=== PATIENT | female | born 1970 | race Caucasian/White ===

== ENCOUNTER → 2017-09-23 13:15 | Outpatient (CLI) | payer MEDICARE, MEDICAID, SELFPAY ==
--- NOTE | 2017-09-23 13:21 | XR_ITS ---
XR knee LT 4V HISTORY: ITS.REASON: left knee pain ORDERING PHYSICIAN: Lenard Cruz MD PATIENT AGE: 47 years COMPARISON: None FINDINGS: No fracture or dislocation. No lytic or blastic change. Normal mineralization. There is decrease in the joint space medially with minimal osteophyte formation. Minimal osteophyte formation along the posterior patella superiorly. IMPRESSION: 1. Mild osteoarthritis 2. Otherwise negative left knee
== END ==
PROVIDERS: PCP Nurse Practitioner; Visit Provider Orthopaedic Surgery
DX: M25.562 Pain in left knee (principal)
CPT/HCPCS: 73564

== ENCOUNTER 2017-10-09 12:17 | Emergency (ER) | payer MEDICARE, MEDICAID, SELFPAY ==
[2017-10-09 12:30] VITALS: BP 142/77; PULSE 86; RESP 20; TEMP 36.6; O2SAT 94; BMI 58.4
--- NOTE | 2017-10-09 12:33 | XR_ITS ---
XR chest 2V HISTORY: Cough and congestion ITS.REASON: COUGH AND CHEST CONGESTION ORDERING PHYSICIAN: Delaney Kern PATIENT AGE: 47 years COMPARISON: 04/03/2017 FINDINGS: The cardiomediastinal silhouette and pulmonary vascularity are within normal limits. The lungs are clear without infiltrates, suspicious nodules, or pleural effusions. There are degenerative changes in the thoracic spine No acute bony abnormalities. IMPRESSION: No change with no acute finding
--- NOTE | 2017-10-09 12:49 | HMH.EDUTC ---
[facility] [place] Disposition Clinical Impression: Upper respiratory infection Qualifiers: URI type: unspecified URI Qualified Code(s): J06.9 - Acute upper respiratory infection, unspecified Disposition: Home, Self-Care Condition on Discharge: Good Instructions: DI for Cough -- Adult, Sore Throat Additional Instructions: * Monitor Temp. Tylenol and/or Ibuprofen as needed. ER if fever is no less than 101 despite alternating Tylenol and Ibuprofen * Encourage fluids, water, Gatorade, powerade, pedialyte if /toddler/or child * Warm salt water gargles for throat irritation *Warm fluids *Sore throat lozenges *Sleep elevated *humidifier or vaporizer Lots of rest Increase fluids, water, Gatorade, powerade Follow up IMMEDIATELY for new or worsening of symptoms OR no noticeable improvement over the next 48-72 hours. 911 immediately for any life threatening symptoms such as chest pain or difficulty breathing Prescriptions: Albuterol Sulfate [Albuterol HFA Inhaler] 2 puffs IH Q6HP PRN #1 inh PRN Reason: Shortness Of Breath Or Wheezing Azithromycin [Z-Geovanny 250mg Tab] 250 mg PO UD DOSE PK #6 tab Dextromethorphan Polistirex [Delsym] 10 ml PO Q12H PRN #350 bhanu.er.12h PRN Reason: Cough predniSONE [Prednisone 20mg Tab] 20 mg PO DAILY #10 tab Referrals: Ananya Goldstein APRN [Primary Care Provider] - As needed (in 24-48 hours or sooner if no improvement or worsening of symptoms) Time of Disposition: 13:07 Medical Decision Making - Medical Records Medical records reviewed: Yes: I reviewed the patient's medical records. - Woodrow Inquiry Pt receiving controlled substance: No Woodrow was queried for this patient: No Vital Signs: 10/09/17 12:30 Temperature 97.9 F Temperature Source Temporal Artery Scan Pulse Rate [Right] 86 Respiratory Rate 20 Blood Pressure [Right Arm] 142/77 Blood Pressure Mean [Right Arm] 98 Blood Pressure Source [Right Arm] Automatic Cuff Blood Pressure Position [Right Arm] Sitting 02 Sat by Pulse Oximetry 94 L Oxygen Delivery Method Room Air Orders (Tests/Meds): ORDERS Category Date Time Status CXR 2 view (NOT portable) [XR chest 2V] Stat Exams 10/09/17 12:33 Ordered - Radiology Data #1 Image(s): Chest Image Reviewed: Yes I reviewed the patient's radiology image w/the ED provider Preliminary Findings: No Infiltrates Seen [facility] [place] HPI - General Stated complaint: cough.lost voice Time Seen by Provider: 10/09/17 12:50 Mode of Arrival: Ambulatory Source of Information: Patient Limitations: No Limitations Description of Symptoms (Recalled from Triage Doc. by RN): COUGH, CONGESTION X3 WKS HEENT Symptoms (Recalled from RN notes): Yes Resp Symptoms (Recalled from RN notes): No Skin Symptoms (Recalled from RN notes): No MS Symptoms (Recalled from RN notes): No Functional Status (Recalled from RN notes): N - History of Present Illness Provider Complaint: Patient state that she has been having cough and congestion for about 3 weeks now State that she got better then would start feeling worse State that she is not having a productive cough and has continued to lose her voice over the last few days States that cough is keeping her up at night and worse when she lays - Related Data Home Medications Medication Instructions Recorded Confirmed bupropion HCl XL 300 mg 24 hr 300 mg PO QAM 08/06/17 tablet, extended release furosemide 40 mg tablet 40 mg PO ONCE 08/06/17 levothyroxine 150 mcg capsule PO 08/06/17 lisinopril 10 mg tablet 10 mg PO QDAY 08/06/17 Previous Rx's Medication Instructions Recorded Albuterol Sulfate [Albuterol HFA 2 puffs IH Q6HP PRN #1 inh 10/09/17 Inhaler] Azithromycin [Z-Geovanny 250mg Tab] 250 mg PO UD DOSE PK #6 tab 10/09/17 Dextromethorphan Polistirex 10 ml PO Q12H PRN #350 bhanu.er.12h 10/09/17 [Delsym] predniSONE [Prednisone 20mg 20 mg PO DAILY #10 tab 10/09/17 Tab] Allergies Allergy/AdvReac Type Severity Reaction Status D
--- NOTE | 2017-10-09 12:58 | ED_ITS ---
[facility] [place] Disposition Clinical Impression: Upper respiratory infection Qualifiers: URI type: unspecified URI Qualified Code(s): J06.9 - Acute upper respiratory infection, unspecified Disposition: Home, Self-Care Condition on Discharge: Good Instructions: DI for Cough -- Adult, Sore Throat Additional Instructions: * Monitor Temp. Tylenol and/or Ibuprofen as needed. ER if fever is no less than 101 despite alternating Tylenol and Ibuprofen * Encourage fluids, water, Gatorade, powerade, pedialyte if infant/toddler/or child * Warm salt water gargles for throat irritation *Warm fluids *Sore throat lozenges *Sleep elevated *humidifier or vaporizer Lots of rest Increase fluids, water, Gatorade, powerade Follow up IMMEDIATELY for new or worsening of symptoms OR no noticeable improvement over the next 48-72 hours. 911 immediately for any life threatening symptoms such as chest pain or difficulty breathing Prescriptions: Albuterol Sulfate [Albuterol HFA Inhaler] 2 puffs IH Q6HP PRN #1 inh PRN Reason: Shortness Of Breath Or Wheezing Azithromycin [Z-Geovanny 250mg Tab] 250 mg PO UD DOSE PK #6 tab Dextromethorphan Polistirex [Delsym] 10 ml PO Q12H PRN #350 bhanu.er.12h PRN Reason: Cough predniSONE [Prednisone 20mg Tab] 20 mg PO DAILY #10 tab Referrals: Ananya Goldstein APRN [Primary Care Provider] - As needed (in 24-48 hours or sooner if no improvement or worsening of symptoms) Time of Disposition: 13:07 Medical Decision Making - Medical Records Medical records reviewed: Yes: I reviewed the patient's medical records. - Woodrow Inquiry Pt receiving controlled substance: No Woodrow was queried for this patient: No Vital Signs: 10/09/17 12:30 Temperature 97.9 F Temperature Source Temporal Artery Scan Pulse Rate [Right] 86 Respiratory Rate 20 Blood Pressure [Right Arm] 142/77 Blood Pressure Mean [Right Arm] 98 Blood Pressure Source [Right Arm] Automatic Cuff Blood Pressure Position [Right Arm] Sitting 02 Sat by Pulse Oximetry 94 L Oxygen Delivery Method Room Air Orders (Tests/Meds): ORDERS Category Date Time Status CXR 2 view (NOT portable) [XR chest 2V] Stat Exams 10/09/17 12:33 Ordered - Radiology Data #1 Image(s): Chest Image Reviewed: Yes I reviewed the patient's radiology image w/the ED provider Preliminary Findings: No Infiltrates Seen [facility] [place] HPI - General Stated complaint: cough.lost voice Time Seen by Provider: 10/09/17 12:50 Mode of Arrival: Ambulatory Source of Information: Patient Limitations: No Limitations Description of Symptoms (Recalled from Triage Doc. by RN): COUGH, CONGESTION X3 WKS HEENT Symptoms (Recalled from RN notes): Yes Resp Symptoms (Recalled from RN notes): No Skin Symptoms (Recalled from RN notes): No MS Symptoms (Recalled from RN notes): No Functional Status (Recalled from RN notes): N - History of Present Illness Provider Complaint: Patient state that she has been having cough and congestion for about 3 weeks now State that she got better then would start feeling worse State that she is not having a productive cough and has continued to lose her voice over the last few days States that cough is keeping her up at night and worse when she lays - Related Data Home Medications Medication Instructions Recorded Confirmed bupropion HCl XL 300 mg 24 hr 300 mg PO QAM 08/06/17 tablet, extended release
[2017-10-09 13:13] VITALS: BP 142/77; PULSE 86; RESP 20; TEMP 36.6
== END 2017-10-09 13:24 | disposition home or self-care (01) ==
PROVIDERS: Emergency Provider Nurse Practitioner; Family Provider Nurse Practitioner; PCP Nurse Practitioner
DX: J06.9 Acute upper respiratory infection, unspecified (principal); I10 Essential (primary) hypertension; E03.9 Hypothyroidism, unspecified
CPT/HCPCS: G0463; 71046; 99201

== ENCOUNTER → 2018-03-10 14:02 | Outpatient (CLI) | payer MEDICARE, MEDICAID, SELFPAY ==
--- NOTE | 2018-03-10 14:10 | XR_ITS ---
XR chest 2V HISTORY: ITS.REASON: SHORTNESS OF BREATH,WHEEZING ORDERING PHYSICIAN: Ananya Goldstein PATIENT AGE: 47 years COMPARISON: 11/07/2017 FINDINGS: The cardiomediastinal silhouette and pulmonary vascularity are within normal limits. The lungs are clear without infiltrates, suspicious nodules, or pleural effusions. No acute bony abnormalities. There are degenerative changes in the thoracic spine as before IMPRESSION: No change with no acute finding
== END ==
PROVIDERS: PCP Nurse Practitioner; Visit Provider Nurse Practitioner
DX: R06.02 Shortness of breath (principal); R06.2 Wheezing
CPT/HCPCS: 71046

== ENCOUNTER → 2018-03-19 11:15 | Outpatient (CLI) | payer MEDICARE, MEDICAID, SELFPAY ==
[2018-03-19 12:21] VITALS: PULSE 82; PULSE 84
== END ==
PROVIDERS: Family Provider Nurse Practitioner; PCP Nurse Practitioner; Visit Provider Nurse Practitioner
DX: R06.02 Shortness of breath (principal); R06.2 Wheezing
CPT/HCPCS: 94060; 94640; 94726; 94729

== ENCOUNTER 2019-11-10 19:41 | Emergency (ER) | payer MEDICARE, OTHER, SELFPAY ==
[2019-11-10 19:41] VITALS: BMI 61.9
--- NOTE | 2019-11-10 19:42 | XR_ITS ---
PROCEDURE: XR CHEST PORTABLE CLINICAL HISTORY: hypertensive COMPARISON: No exams were available for comparison FINDINGS: The cardiomediastinal silhouette and pulmonary vascularity are within normal limits. The lungs are clear without infiltrates, suspicious nodules, or pleural effusions. No acute bony abnormalities. IMPRESSION: No acute findings. Dictated by: Wei Mendoza MD 11/10/2019 21:01 Electronically signed by Wei Mendoza MD in [place] 11/10/2019 21:01
--- NOTE | 2019-11-10 19:42 | CT_ITS ---
PROCEDURE: CT HEAD/BRAIN WO CON CLINICAL INDICATION: weakness, episode of facial numbness Right-sided facial numbness COMPARISON: CT HEAD/BRAIN WO CON from 08/11/2019 TECHNIQUE: Axial images obtained. All CT scans at the facility use one or more dose reduction, viz: automated exposure control, ma/kV adjustment per patient size (including targeted exams where dose is matched to indication, i.e. head), or iterative reconstruction technique. FINDINGS: No midline shift, mass effect, intracranial hemorrhage, hydrocephalus, or extra-axial fluid collection is evident. The calvarium has an unremarkable appearance. No mastoid effusion. No sinus air-fluid level. IMPRESSION: No acute intracranial finding Dictated by: Wei Mendoza MD 11/10/2019 21:03 Electronically signed by Wei Mendoza MD in [place] 11/10/2019 21:03
[2019-11-10 19:44] VITALS: BP 154/73; PULSE 90; RESP 18; TEMP 36.7; O2SAT 96; BMI 61.9
--- NOTE | 2019-11-10 19:50 | PC.NURSE ---
pt dressed in gown. fsbs 114mg/dl obtained. placed on secured entrance monitor. no present s/sxs.
--- NOTE | 2019-11-10 20:01 | PC.NURSE ---
blood collected and sent to lab. advised patient urine would be needed. discussed current orders with md. no new orders.
--- NOTE | 2019-11-10 20:03 | PC.NURSE ---
pt to rad via velma stroud tech.
[2019-11-10 20:09] LABS: Basophils # 0.1 K/mm3 (0-0.2); Basophils % 0.5 % (0.1-2.0); Eosinophils # 0.1 K/mm3 (0.0-0.4); Eosinophils % 1.3 % (0.1-12.0); Hematocrit 44.4 % (37.0-47.0); Hemoglobin 13.8 g/dL (12.2-16.2); Lymphocytes # 2.2 K/mm3 (0.7-4.5); Lymphocytes % 21.2 % (10-50); Mean Corpuscular HGB Conc 31.1 g/dL (31.8-35.4); Mean Corpuscular Hemoglobin 27.6 pg (27.0-31.2); Mean Corpuscular Volume 88.9 fl (81-99); Mean Platelet Volume 7.9 fl (7.4-10.4); Monocytes # 0.6 K/mm3 (0.1-1.0); Monocytes % 5.5 % (1.7-9.3); Neutrophils # 7.4 K/mm3 (1.8-7.8); Neutrophils % 71.5 % (37.0-80.0); Platelet Count 259 K/mm3 (142-424); Red Blood Count 4.99 M/mm3 (4.20-5.40); Red Cell Distribution Width 16.5 % (11.5-17.5); White Blood Count 10.4 K/mm3 (4.8-10.8)
--- NOTE | 2019-11-10 20:11 | PC.NURSE ---
remains in ct/rad
[2019-11-10 20:15] LABS: Chloride 104 mmol/L (98-107)
--- NOTE | 2019-11-10 20:15 | PC.NURSE ---
back from radiology. call light in reach. rajinder to perform ekg at this time.
[2019-11-10 20:16] LABS: Potassium 4.6 mmoL/L (3.5-5.1); Sodium 140 mmol/L (136-145)
[2019-11-10 20:18] LABS: Alanine Aminotransferase 23 U/L (12-78); Aspartate Amino Transferase 31 U/L (14-36); Blood Urea Nitrogen 11 mg/dl (7-17); Creatinine Clearance Estimated 92 mL/min (50-200); Estimated Glomerular Filt Rate 105 ml/min (>60); GFR (African American) 128 ML/MIN (>60)
[2019-11-10 20:19] LABS: Albumin Level 3.5 g/dl (3.5-5.0); Albumin/Globulin Ratio 1.1 (1.1-1.8); Alkaline Phosphatase 87 U/L (38-126); Anion Gap 8.6 mEq/L (5-15); Bilirubin,Total 0.2 mg/dl (0.2-1.3); Calcium 9.3 mg/dl (8.4-10.2); Carbon Dioxide 32 mmol/L (22.0-30.0); Globulin 3.1 g/dL (1.3-3.2); Glucose 102 mg/dl (74-100); Total Protein,Serum 6.6 g/dl (6.3-8.2)
--- NOTE | 2019-11-10 20:20 | PC.NURSE ---
family updated at this time. advised waiting on lab and radiology results and that patient was stable with no actual issues at time of presentation,nor repeats of previously mentioned issues.
--- NOTE | 2019-11-10 20:24 | ECG_ITS ---
APPROVED REPORT Exam: Resting ECG HR:89 bpm ECG Measurements Heart Rate 89 AXES MI 134 P 68 QRSd 120 QRS -39 QT 366 T 28 QTc 445 <Conclusion> Normal sinus rhythm Left axis deviation Right bundle branch block Abnormal ECG Electronically signed by : Fabrizio Rosales, 11/13/2019 13:16:06
[2019-11-10 20:28] LABS: NT Pro Brain Natriuretic Pep. 76.9 pg/mL (0-125)
[2019-11-10 20:40] VITALS: BP 149/89; PULSE 72; RESP 21; TEMP 36.6; O2SAT 97
[2019-11-10 20:40] LABS: Triiodothryronine (T3) Uptake 32 % (23.5-40.5); Troponin I < 0.01 ng/ml (0.00-0.034)
[2019-11-10 20:41] LABS: Free Thyroxine Index 2.4 ug/dL (5.93-13.13); T4 (Thyroxine) 7.5 ug/dl (5.53-11.0)
--- NOTE | 2019-11-10 21:18 | PC.NURSE ---
urine sent to lab
[2019-11-10 21:19] VITALS: BP 129/72; PULSE 75; RESP 18; TEMP 36.7; O2SAT 95
[2019-11-10 21:20] LABS: Microscopic, Urine URINE MICROSCOPIC (MICROSCOPIC)
[2019-11-10 21:32] LABS: Appearance,Urine CLEAR (Clear); Bilirubin,Urine Negative (Negative); Blood, Urine Negative (Negative); Color,Urine YELLOW (Yellow); Glucose,Urine (UA) Negative (Negative); Ketones,Urine Negative (Negative); Leukocyte Esterase,Urine Negative (Negative); Nitrate,Urine Negative (Negative); PH,Urine 6.5 (5.0-8.5); Protein,Urine Negative (Negative); Urobilinogen,Urine 0.2 EU/dl (0.2)
[2019-11-10 21:46] LABS: Bacteria,Urine Trace /lpf; WBC,Urine Occasional #/hpf (0-3)
--- NOTE | 2019-11-10 22:00 | HMH.EDNEU ---
ED Disposition Clinical Impression: TIA (transient ischemic attack), Tobacco abuse, Hypothyroidism (acquired) HTN (hypertension) Qualifiers: Hypertension type: essential hypertension Qualified Code(s): I10 - Essential (primary) hypertension Obesity Qualifiers: Obesity type: due to excess calories Obesity classification: adult class 3 (BMI >= 40) Serious obesity comorbidity presence: with serious comorbidity Body mass index: BMI 60.0-69.9 Qualified Code(s): E66.01 - Morbid (severe) obesity due to excess calories; Z68.44 - Body mass index (BMI) 60.0-69.9, adult Disposition: Home, Self-Care Condition on Discharge: Good Instructions: DI for Transient Ischemic Attack Additional Instructions: call pcp in am for close follow up and restart meds Referrals: Kiera Mai PA [Primary Care Provider] - - Critical Care Critical Care Time: No Attestation: On 11/10/19, the high probability of a clinically significant, sudden or life threatening deterioration of the following system(s) required my full and direct attention, intervention and personal management. The time I documented below is in addition to time spent performing reported procedures but includes the following listed in this critical care notation. Medical Decision Making - Medical Records Medical records reviewed: Yes: I reviewed the patient's medical records. - Woodrow Inquiry Pt receiving controlled substance: No Vital Signs: 11/10/19 19:44 11/10/19 20:40 11/10/19 21:19 Temperature 98.1 F 97.8 F 98.0 F Temperature Source Oral Oral Oral Pulse Rate [Right Brachial] 90 72 75 Respiratory Rate 18 21 18 Blood Pressure [Right Arm] 154/73 H 149/89 H 129/72 Blood Pressure Mean [Right Arm] 100 109 91 Blood Pressure Source [Right Arm] Automatic Cuff Automatic Cuff Automatic Cuff Blood Pressure Position [Right Arm] Sitting Sitting Sitting 02 Sat by Pulse Oximetry 96 97 95 Oxygen Delivery Method Room Air Room Air Room Air - Lab Data Lab results reviewed: Yes: I reviewed the patient's lab results. Lab Results 11/10/19 20:00: WBC 10.4, RBC 4.99, Hgb 13.8, Hct 44.4, MCV 88.9, MCH 27.6, MCHC 31.1 L, RDW 16.5, Plt Count 259, MPV 7.9, Neut % (Auto) 71.5, Lymph % (Auto) 21.2, [place] % (Auto) 5.5, Eos % (Auto) 1.3, Baso % (Auto) 0.5, Neut # (Auto) 7.4, Lymph # (Auto) 2.2, [place] # (Auto) 0.6, Eos # (Auto) 0.1, Baso # (Auto) 0.1 11/10/19 20:00: Sodium 140, Potassium 4.6, Chloride 104, Carbon Dioxide 32 H, Anion Gap 8.6, BUN 11, Creatinine 0.60, Estimated Creat Clear 92, Estimated GFR 105, Est GFR ( Amer) 128, Glucose 102 H, Calcium 9.3, Total Bilirubin 0.2, AST 31, ALT 23, Alkaline Phosphatase 87, Troponin I < 0.01, Total Protein 6.6, Albumin 3.5, Globulin 3.1, Albumin/Globulin Ratio 1.1 11/10/19 20:00: TSH 13.70 H, Free T4 Index 2.4 L, Thyroxine (T4) 7.5, T3 Uptake 32 11/10/19 20:00: NT-Pro-B Natriuret Pep 76.9 11/10/19 21:15: Urine Color Yellow, Urine Appearance Clear, Urine pH 6.5, Ur Specific [place] 1.020, Urine Protein Negative, Urine Glucose (UA) Negative, Urine Ketones Negative, Urine Blood Negative, Urine Nitrate Negative, Urine Bilirubin Negative, Urine Urobilinogen 0.2, Ur Leukocyte Esterase Negative, Urine WBC Occasional, Ur Squamous Epith Cells 3-5, Urine Bacteria Trace Result diagrams: 11/10/19 20:00 11/10/19 20:00 Orders (Tests/Meds): ED MEDICATIONS Discontinued Medications Generic Name Dose Route Start Last Admin Trade Name Freq PRN Reason Stop Dose Admin Acetaminophen 1,000 mg 11/10/19 20:17 11/10/19 20:19 Tylenol 500mg Tablet PO 11/10/19 20:18 1,000 mg ONCE ONE Administration ORDERS Category Date Time Status Troponin I Q3H Lab 11/10/19 22:45 Ordered Troponin I Q3H Lab 11/11/19 01:45 Ordered - Radiology Data #1 Image(s): Chest Image Reviewed: Yes I reviewed the patient's radiology image Preliminary Findings: Normal/NAD - CT Data CT Scan: Head Time Received: 22:[address] Reviewed: Yes: I have vi
[2019-11-10 22:31] VITALS: BP 124/68; PULSE 72; RESP 18; TEMP 36.7; O2SAT 95
[2019-12-01 10:39] LABS: POC Glucose,Bedside 114 (70-110)
== END 2019-11-10 22:33 | disposition home or self-care (01) ==
PROVIDERS: Emergency Provider Emergency Medicine; PCP Physician Assistant
DX: G45.8 Other transient cerebral ischemic attacks and related syndromes (principal); E03.9 Hypothyroidism, unspecified; F17.210 Nicotine dependence, cigarettes, uncomplicated; E66.01 Morbid (severe) obesity due to excess calories; Z68.44 Body mass index [BMI] 60.0-69.9, adult; Z88.5 Allergy status to narcotic agent; Z79.899 Other long term (current) drug therapy; R06.02 Shortness of breath
CPT/HCPCS: 70450; 71045; 80053; 81001; 82962; 83880; 84436; 84443; 84479; 84484; 85025; 93005; 99284

== ENCOUNTER 2019-12-04 15:19 | Emergency (ER) | payer MEDICARE, OTHER, SELFPAY ==
[2019-12-04 15:26] VITALS: BP 153/74; PULSE 110; RESP 18; TEMP 36.8; O2SAT 97; BMI 61.9
--- NOTE | 2019-12-04 15:30 | XR_ITS ---
PROCEDURE: XR CHEST 2V CLINICAL HISTORY: COUGH Cough and severe shortness of breath COMPARISON: CTAC CTA-CHEST from 11/20/2016 XR CHEST 2V from 08/11/2019 XR CHEST 2V from 09/13/2019 XR CHEST PORTABLE from 11/10/2019 FINDINGS: The cardiomediastinal silhouette and pulmonary vascularity are within normal limits. The lungs are clear without infiltrates, suspicious nodules, or pleural effusions. No acute bony abnormalities. IMPRESSION: No acute findings. Dictated by: Wei Mendoza MD 12/05/2019 08:38 Electronically signed by Wei Mendoza MD in [place] 12/05/2019 08:38
[2019-12-04 15:32] VITALS: PULSE 109; RESP 22; O2SAT 96; BMI 61.7
--- NOTE | 2019-12-04 15:35 | HMH.EDUTC ---
[facility] [place] Disposition Clinical Impression: Strep throat COPD (chronic obstructive pulmonary disease) Qualifiers: COPD type: unspecified COPD Qualified Code(s): J44.9 - Chronic obstructive pulmonary disease, unspecified Disposition: Home, Self-Care Condition on Discharge: Good Instructions: DI for Strep Throat, Strep Throat (Alternative Therapy), Strep Throat Additional Instructions: *Monitor Temp, Over the counter Motrin or Tylenol as directed/as needed Tylenol every 4 hours and Motrin every 6 hours (as long as your family doctor has told you that you can take it) for fever or pain. and straight to ER if unable to lower temp less than 101.0 after medication given *Warm salt water gargles may help to soothe the throat *Throat Lozenges *Warm fluids *Sleep elevated *Humidifier/Vaporizer *Flonase 2 sprays in each nostril daily but be aware that it may take 2-3 days before you notice improvement *If you did not take Penicillin shot or was unable to, start taking antibiotic immediately and make sure that you take it for the FULL length of time although you should start to feel better in 24-48 hours *change toothbrush and toothpaste 24-48 hours after starting to take antibiotics so you do not reinfect yourself Monitor Temp. Tylenol and/or Ibuprofen as needed. ER if fever is no less than 101 despite alternating Tylenol and Ibuprofen * Encourage fluids, water, Gatorade, powerade, pedialyte if /toddler/or child *Cold fluids, popsicles and ice cream may feel good on his throat Follow up IMMEDIATELY for new or worsening symptoms or no Noticeable improvement over the next 48-72 hours. 911 for difficulty breathing or swallowing Prescriptions: Fluticasone Propionate [Flonase 50mcg nasal spray 16gm] 1 - 2 spr NS DAILY #1 bottle Prescription Printed Cefdinir [Omnicef 300mg Capsule] 300 mg PO BID #20 cap Prescription Printed predniSONE [Prednisone 5mg Tab Dose-Pack] 5 mg PO UD DOSE PK #21 pack Prescription Printed Benzonatate [Tessalon Perle 100mg Cap*] 100 mg PO TID PRN #12 cap PRN Reason: Cough Prescription Printed Referrals: Ananya Goldstein APRN [Primary Care Provider] - As needed Time of Disposition: 16:02 Medical Decision Making - Woodrow Inquiry Pt receiving controlled substance: No Woodrow was queried for this patient: No Vital Signs: 12/04/19 15:26 12/04/19 15:32 Temperature 98.3 F Temperature Source Oral Pulse Rate [Radial] 110 H 109 H Respiratory Rate 18 22 Blood Pressure [Right Arm] 153/74 H Blood Pressure Mean [Right Arm] 100 Blood Pressure Source [Right Arm] Automatic Cuff Blood Pressure Position [Right Arm] Sitting 02 Sat by Pulse Oximetry 97 96 Oxygen Delivery Method Room Air Orders (Tests/Meds): ORDERS Category Date Time Status CXR 2 view (NOT portable) [XR chest 2V] Stat Exams 12/04/19 15:30 Taken - Radiology Data #1 Image(s): Chest Image Reviewed: Yes I reviewed the patient's radiology image No acute finding, will have patient call back or follow up for official reading of xray - Reevaluation(s) Time: 15:51 Reevaluation #1: Patient states that she has taken cefdinir and prednisone before without reaction or complication [facility] [place] HPI - General Stated complaint: SOB,Cough,Weakness,Lungs hunts Time Seen by Provider: 12/04/19 15:35 Mode of Arrival: Ambulatory Limitations: No Limitations Description of Symptoms (Recalled from Triage Doc. by RN): Complaint of lung pain and shortness of breath.Denies fever. x 1 week. HEENT Symptoms (Recalled from RN notes): No Resp Symptoms (Recalled from RN notes): Yes Skin Symptoms (Recalled from RN notes): No MS Symptoms (Recalled from RN notes): No Functional Status (Recalled from RN notes): na - History of Present Illness Provider Complaint: Patient states that she has a history of COPD and is every day smoker of about a pack a day States that for the last week she has been having cough and some pressure like pain in her ears St
[2019-12-04 15:54] LABS: UTC Strep Screen (Rapid) Positive (Negative)
[2019-12-04 16:07] VITALS: BP 150/87; PULSE 100; RESP 20; TEMP 36.8; O2SAT 98
== END 2019-12-04 16:08 | disposition home or self-care (01) ==
PROVIDERS: Emergency Provider Nurse Practitioner; PCP Nurse Practitioner
DX: J02.0 Streptococcal pharyngitis (principal); J44.9 Chronic obstructive pulmonary disease, unspecified; I10 Essential (primary) hypertension; E03.9 Hypothyroidism, unspecified; F17.210 Nicotine dependence, cigarettes, uncomplicated; Z88.8 Allergy status to other drugs, medicaments and biological substances; Z79.899 Other long term (current) drug therapy
CPT/HCPCS: 71046; 87880; 99202

== ENCOUNTER 2020-01-31 14:23 | Emergency (ER) | payer MEDICARE, OTHER, SELFPAY ==
[2020-01-31 14:45] VITALS: BP 133/67; PULSE 101; RESP 28; TEMP 36.3; O2SAT 94; BMI 63.8
--- NOTE | 2020-01-31 14:48 | XR_ITS ---
PROCEDURE: XR CHEST 2V CLINICAL HISTORY: SOA/COUGH COMPARISON: CTAC CTA-CHEST from 11/20/2016 CXR2V XR chest 2V from 10/09/2017 XR CHEST 2V from 09/13/2019 XR CHEST PORTABLE from 11/10/2019 XR CHEST 2V from 12/04/2019 FINDINGS: The cardiomediastinal silhouette and pulmonary vascularity are within normal limits. The lungs are clear without infiltrates, suspicious nodules, or pleural effusions. Increased density is present in the left upper lobe medially and may be due to summation artifact from overlying ribs and vessels having a somewhat similar appearance on 09/13/2019. Stability may be confirmed with follow-up. There are degenerative changes in the thoracic. Slight increased density left paraspinal region at the costo vertebral junction and may be due to overlying prominent osteophytes. Stability may be confirmed with follow-up. IMPRESSION: No acute finding. Please see above for detail Dictated by: Wei Mendoza MD 01/31/2020 15:06 Electronically signed by Wei Mendoza MD in [place] 01/31/2020 15:06
--- NOTE | 2020-01-31 15:19 | HMH.EDUTC ---
[facility] Disposition Clinical Impression: COPD exacerbation Disposition: Home, Self-Care Condition on Discharge: Good Instructions: Chronic Obstructive Pulmonary Disease, DI for Chronic Obstructive Pulmonary Disease Additional Instructions: Drink plenty of fluids. Take tylenol or ibuprofen for pain or fever. Take the medications as directed. Follow up with your regular doctor. GO TO THE ER FOR ANY WORSENING SYMPTOMS Don't start the oral steroids until tomorrow, since you had the shot here today. The cough medication (promethazine dm) will make you drowsy, so don't drive or operate heavy machinery after taking it. Prescriptions: Promethazine/Dextromethorphan [Promethazine-Dm Syrup] 5 ml PO Q6HP PRN #240 syrup PRN Reason: Cough Transmission Status: Received by [facility] Umeclidinium Brm/Vilanterol Tr [Anoro Ellipta 62.5-25 Mcg INH] 1 inh IH DAILY 30 Days #1 device Transmission Status: Received by [facility] levoFLOXacin [Levaquin 500mg tab] 500 mg PO DAILY #7 tab Transmission Status: Received by [facility] methylPREDNISolone [Medrol] 4 mg PO DIRECTED 6 Days #21 tab.ds.pk Transmission Status: Received by [facility] Benzonatate [Tessalon Perle 100mg Cap] 100 mg PO TIDP PRN #30 cap PRN Reason: Cough Transmission Status: Received by [facility] Referrals: Provider,Referral, [Primary Care Provider] - Time of Disposition: 15:24 Medical Decision Making - Medical Records Medical records reviewed: No: I reviewed the patient's medical records. - Woodrow Inquiry Pt receiving controlled substance: No Vital Signs: 01/31/20 14:45 01/31/20 15:44 Temperature 97.4 F L 97.4 F L Temperature Source Oral Pulse Rate 101 H Pulse Rate [Right Brachial] 101 H Respiratory Rate 28 H 28 H Blood Pressure 133/67 Blood Pressure [Right Arm] 133/67 Blood Pressure Mean [Right Arm] 89 Blood Pressure Source [Right Arm] Automatic Cuff Blood Pressure Position [Right Arm] Sitting 02 Sat by Pulse Oximetry 94 L Oxygen Delivery Method Room Air Orders (Tests/Meds): ED MEDICATIONS Discontinued Medications Generic Name Dose Route Start Last Admin Trade Name Freq PRN Reason Stop Dose Admin Ceftriaxone Sodium 1 gm 01/31/20 15:17 01/31/20 15:43 Rocephin 1gm Vial IM 01/31/20 15:18 1 gm ONCE ONE Administration Protocol Lidocaine HCl 0 ml 01/31/20 15:17 01/31/20 15:43 Lidocaine 1% 10ml Mdv IM 01/31/20 15:18 2.1 ml ONCE ONE Administration Methylprednisolone Sodium Succinate 125 mg 01/31/20 15:17 01/31/20 15:43 Solu-Medrol 125mg/2ml Vial IM 01/31/20 15:18 125 mg ONCE ONE Administration - Radiology Data #1 Image(s): Chest Image Reviewed: Yes I reviewed the patient's radiology image, Yes I have reviewed radiologist's interpretation Preliminary Findings: No Infiltrates Seen PROCEDURE: XR CHEST 2V CLINICAL HISTORY: SOA/COUGH COMPARISON: CTAC CTA-CHEST from 11/20/2016 CXR2V XR chest 2V from 10/09/2017 XR CHEST 2V from 09/13/2019 XR CHEST PORTABLE from 11/10/2019 XR CHEST 2V from 12/04/2019 FINDINGS: The cardiomediastinal silhouette and pulmonary vascularity are within normal limits. The lungs are clear without infiltrates, suspicious nodules, or pleural effusions. Increased density is present in the left upper lobe medially and may be due to summation artifact from overlying ribs and vessels having a somewhat similar appearance on 09/13/2019. Stability may be confirmed with follow-up. There are degenerative changes in the thoracic. Slight increased density left paraspinal region at the costo vertebral junction and may be due to overlying prominent osteophytes. Stability may be confirmed with follow-up. IMPRESSION: No acute finding. Please see above for detail Dictated by: Wei Mendoza MD 01/31/2020 15:06 Electronically signed by Wei Mendoza MD in [place] 01/31/2020 15:06 [facility] HPI
[2020-01-31 15:44] VITALS: BP 133/67; PULSE 101; RESP 28; TEMP 36.3; O2SAT 94
== END 2020-01-31 15:50 | disposition home or self-care (01) ==
PROVIDERS: Emergency Provider Nurse Practitioner Family
DX: J44.1 Chronic obstructive pulmonary disease with (acute) exacerbation (principal); I10 Essential (primary) hypertension; E03.9 Hypothyroidism, unspecified; F17.210 Nicotine dependence, cigarettes, uncomplicated; Z79.899 Other long term (current) drug therapy
CPT/HCPCS: 71046; 96372; 99202

== ENCOUNTER 2020-03-29 14:37 | Emergency (ER) | payer MEDICARE, OTHER, SELFPAY ==
[2020-03-29 14:46] VITALS: BP 149/64; PULSE 80; RESP 22; O2SAT 95; BMI 59.3
--- NOTE | 2020-03-29 14:56 | ECG_ITS ---
APPROVED REPORT Exam: Resting ECG HR:76 bpm ECG Measurements Heart Rate 76 AXES MT 132 P 67 QRSd 126 QRS -36 QT 398 T 22 QTc 447 <Conclusion> Normal sinus rhythm Left axis deviation Right bundle branch block Abnormal ECG Electronically signed by : Fabrizio Rosales, 04/01/2020 15:02:55
[2020-03-29 15:00] LABS: Basophils # 0.1 K/mm3 (0-0.2); Basophils % 0.8 % (0.1-2.0); Eosinophils # 0.3 K/mm3 (0.0-0.4); Eosinophils % 2.3 % (0.1-12.0); Hematocrit 45.6 % (37.0-47.0); Hemoglobin 14.5 g/dL (12.2-16.2); Lymphocytes # 3.9 K/mm3 (0.7-4.5); Lymphocytes % 33.3 % (10-50); Mean Corpuscular HGB Conc 31.7 g/dL (31.8-35.4); Mean Corpuscular Volume 88.2 fl (81-99); Mean Platelet Volume 7.6 fl (7.4-10.4); Monocytes # 0.6 K/mm3 (0.1-1.0); Monocytes % 5.2 % (1.7-9.3); Neutrophils # 6.8 K/mm3 (1.8-7.8); Neutrophils % 58.4 % (37.0-80.0); Platelet Count 315 K/mm3 (142-424); Red Blood Count 5.17 M/mm3 (4.20-5.40); Red Cell Distribution Width 16.4 % (11.5-17.5); White Blood Count 11.6 K/mm3 (4.8-10.8)
[2020-03-29 15:04] VITALS: BP 120/70; PULSE 81; O2SAT 96
[2020-03-29 15:04] LABS: Chloride 103 mmol/L (98-107); Potassium 4.6 mmoL/L (3.5-5.1); Sodium 138 mmol/L (136-145)
--- NOTE | 2020-03-29 15:05 | CT_ITS ---
PROCEDURE: CT CHEST WO CON CLINICAL INDICATION: pain Pain with swallowing COMPARISON: No exams were available for comparison TECHNIQUE: Axial images obtained with sagittal and coronal reformats. All CT scans at the facility use one or more dose reduction, viz: automated exposure control, ma/kV adjustment per patient size (including targeted exams where dose is matched to indication, i.e. head), or iterative reconstruction technique. FINDINGS: No mediastinal or hilar mass or adenopathy. No lobar consolidation or collapse. Lungs are clear. No acute bony findings. IMPRESSION: Negative CT chest without contrast Dictated by: Wei Mendoza MD 03/29/2020 16:02 Wei Mendoza MD in [place] 03/29/2020 16:02
--- NOTE | 2020-03-29 15:05 | CT_ITS ---
PROCEDURE: CT ABDOMEN PELVIS WO CON CLINICAL INDICATION: pain Pain when eating, epigastric pain with swallowing COMPARISON: CT ABDPELW CT ABD PELVIS W/ CONTRAST from 02/29/2016 TECHNIQUE: Axial images obtained with sagittal and coronal reformats. All CT scans at the facility use one or more dose reduction, viz: automated exposure control, ma/kV adjustment per patient size (including targeted exams where dose is matched to indication, i.e. head), or iterative reconstruction technique. FINDINGS: LOWER THORAX: No acute finding ABDOMEN & PELVIS: There has been a prior cholecystectomy. The liver spleen and pancreas have an unremarkable appearance. No renal or ureteral calculi. The left adrenal gland is somewhat enlarged but not significantly changed. There is some medial displacement of the lower aspect of both kidneys but no obvious horseshoe kidney. There is a large ventral abdominal wall hernia containing large and small bowel and part of the stomach. The hernia is incompletely covered due to the patient's body size and field of view restrictions. There is a suture line present in the right mid abdominal region at the edge of the hernia. Most of the colon and much of the small bowel is within the hernia. The appendix is not identified.. No intestinal obstruction. No obvious free air. No acute bony findings. IMPRESSION: There is a large ventral abdominal wall hernia containing much of the small bowel and most of the colon except for the sigmoid colon and rectum. No obvious intestinal obstruction or free air. Dictated by: Wei Mendoza MD 03/29/2020 16:13 Wei Mendoza MD in [place] 03/29/2020 16:13
[2020-03-29 15:07] LABS: Blood Urea Nitrogen 11 mg/dl (7-17); Creatinine Clearance Estimated 69 mL/min (50-200); Estimated Glomerular Filt Rate 76 ml/min (>60); GFR (African American) 92 ML/MIN (>60)
[2020-03-29 15:08] LABS: Anion Gap 10.6 mEq/L (5-15); Calcium 9.3 mg/dl (8.4-10.2); Carbon Dioxide 29 mmol/L (22.0-30.0); Glucose 91 mg/dl (74-100)
[2020-03-29 15:20] LABS: Troponin I < 0.01 ng/ml (0.00-0.034)
--- NOTE | 2020-03-29 15:23 | PC.NURSE ---
Pt to rad.
[2020-03-29 16:00] VITALS: BP 121/60; PULSE 76; O2SAT 96
[2020-03-29 16:44] VITALS: BP 128/66; PULSE 70; O2SAT 98
--- NOTE | 2020-03-29 17:03 | PC.NURSE ---
Dr Murphy speaking with surgeon showroom sales consultant.
--- NOTE | 2020-03-29 17:18 | HMH.EDGENADL ---
ED Disposition Clinical Impression: Gastritis, Epigastric pain Disposition: Home, Self-Care Condition on Discharge: Good Instructions: DI for Acute Pain -- Adult Prescriptions: Pantoprazole Sodium [Protonix 40mg tablet] 40 mg PO DAILY 30 Days #30 tab Transmission Status: Pending to [facility] Referrals: PCP,No [Primary Care Provider] - - Critical Care Critical Care Time: No Attestation: On 03/29/20, the high probability of a clinically significant, sudden or life threatening deterioration of the following system(s) required my full and direct attention, intervention and personal management. The time I documented below is in addition to time spent performing reported procedures but includes the following listed in this critical care notation. Medical Decision Making - Medical Records Medical records reviewed: Yes: I reviewed the patient's medical records. - Woodrow Inquiry Pt receiving controlled substance: No Vital Signs: 03/29/20 14:46 03/29/20 15:04 03/29/20 16:00 Pulse Rate [Radial] 80 81 76 Respiratory Rate 22 Blood Pressure [Right Arm] 149/64 H 120/70 121/60 Blood Pressure Mean [Right Arm] 92 86 80 Blood Pressure Source [Right Arm] Automatic Cuff Automatic Cuff Automatic Cuff Blood Pressure Position [Right Arm] Sitting Sitting Sitting 02 Sat by Pulse Oximetry 95 96 96 Oxygen Delivery Method Room Air Room Air Room Air 03/29/20 16:44 Pulse Rate [Radial] 70 Respiratory Rate Blood Pressure [Right Arm] 128/66 Blood Pressure Mean [Right Arm] 86 Blood Pressure Source [Right Arm] Automatic Cuff Blood Pressure Position [Right Arm] Sitting 02 Sat by Pulse Oximetry 98 Oxygen Delivery Method Room Air - Lab Data Lab results reviewed: Yes: I reviewed the patient's lab results. Lab Results 03/29/20 14:52: WBC 11.6 H, RBC 5.17, Hgb 14.5, Hct 45.6, MCV 88.2, MCH 28.0, MCHC 31.7 L, RDW 16.4, Plt Count 315, MPV 7.6, Neut % (Auto) 58.4, Lymph % (Auto) 33.3, Dickenson % (Auto) 5.2, Eos % (Auto) 2.3, Baso % (Auto) 0.8, Neut # (Auto) 6.8, Lymph # (Auto) 3.9, Dickenson # (Auto) 0.6, Eos # (Auto) 0.3, Baso # (Auto) 0.1 03/29/20 14:52: Sodium 138, Potassium 4.6, Chloride 103, Carbon Dioxide 29, Anion Gap 10.6, BUN 11, Creatinine 0.80, Estimated Creat Clear 69, Estimated GFR 76, Est GFR ( Amer) 92, Glucose 91, Calcium 9.3, Troponin I < 0.01 Result diagrams: 03/29/20 14:52 03/29/20 14:52 Orders (Tests/Meds): ED MEDICATIONS Discontinued Medications Generic Name Dose Route Start Last Admin Trade Name Freq PRN Reason Stop Dose Admin Belladonna Alkaloids 60 ml 03/29/20 15:06 03/29/20 15:09 Gi Cocktail 60ml Udc PO 03/29/20 15:07 60 ml ONCE ONE Administration ORDERS Category Date Time Status Troponin I Q3H Lab 03/29/20 18:00 Ordered Troponin I Q3H Lab 03/29/20 21:00 Ordered - CT Data CT Scan: Abdomen, Pelvis Time Received: 19:00 Preliminary Findings: Normal/NAD, Abnormal (Patient has a large abdominal hernia that contains the entire small bowel and the majority of the colon except the rectum. no Evidence of strangulation or incarceration) Medical Decision Narrative: I did speak to Dr. Jones about this patient and he suspected that she probably would not be a surgical candidate given that this is been going on long time and given the patient's weight he did mention a couple different physicians at [facility] that may be able to take care of this ventral hernia that she does have. Patient did get significant relief with a GI cocktail and her pain is 0 out of 10 presently. General Adult HPI - General Chief complaint: PAIN Stated complaint: sob Time Seen by Provider: 03/29/20 17:18 Mode of Arrival: Ambulatory Limitations: No Limitations Description of Symptoms (Recalled from ER Triage Doc. by RN): Complaint of left lung pain that started last night. It had stopped but then came back 3 hours ago and has gotten increasingly worse. - History of Present I
[2020-03-29 17:37] VITALS: BP 128/66; PULSE 70; RESP 22; TEMP 37.1; O2SAT 98
== END 2020-03-29 17:40 | disposition home or self-care (01) ==
PROVIDERS: Emergency Provider Family Medicine
DX: K29.70 Gastritis, unspecified, without bleeding (principal); E66.01 Morbid (severe) obesity due to excess calories; Z68.43 Body mass index [BMI] 50.0-59.9, adult; I10 Essential (primary) hypertension; E03.9 Hypothyroidism, unspecified; F17.210 Nicotine dependence, cigarettes, uncomplicated; Z79.899 Other long term (current) drug therapy; Z91.048 Other nonmedicinal substance allergy status; Z88.5 Allergy status to narcotic agent
CPT/HCPCS: 71250; 74176; 80048; 84484; 85025; 93005; 99283

== ENCOUNTER → 2020-05-21 15:20 | Outpatient (CLI) | payer MEDICARE, OTHER, SELFPAY | PROVIDERS: Visit Provider Family Medicine | DX: R53.83 Other fatigue (principal) | CPT/HCPCS: 84443 ==

== ENCOUNTER → 2020-06-01 09:28 | Outpatient (CLI) | payer MEDICARE, OTHER, SELFPAY ==
--- NOTE | 2020-06-01 09:30 | CA_ITS ---
APPROVED REPORT EXAM: Comprehensive 2D, Doppler, and color-flow Echocardiogram Poultry Farmworker: Margaux Dickens CRT Ht: 5 ft 3 in Wt: 389lbs BSA: 2.57 BP: 160/80 mmHg Indications: SOA, MORBID OBESITY,CRANDALL,SMOKER,HTN 2D Dimensions LVOT 2.13 cm (M/F) 1.5-2.5 M-Mode Dimensions RVDd 2.25 cm (0.9-2.6) LA Diam 3.20 cm (1.9-4.0) LVDd 5.89 cm (3.5-5.7) Ao Diam 2.90 cm (2.0-3.7) LVDs 5.09 cm (3.5-5.7) IVSd 1.48 cm (0.6-1.1) PWd 0.85 cm (0.6-1.1) EF (Teich) 28.60% FS 13.60% EDV (Teich) 172.50 mL ESV (Teich) 123.20 mL LV Diastology E Decel Time 277.00 (160-240 msec) E/A Ratio 0.8 MED E' 5.70 (< 7 cm/sec) E'/MED E' Ratio 12.00 (>14) LAT E' 9.20 (<10 cm/sec) E/LAT E' Ratio 7.43 (>14) Mitral Valve MV E Max Marques. 68.00 (40-130 cm/s) MV A Velocity 86.00 (40-130 cm/s) E/A Ratio 0.79 MV Decel. Time 277.00 (160-240 ms) MV PHT 81.00 ms Left Ventricle Left atrium is mildly enlarged, left ventricle is normal size, mild concentric left ventricular hypertrophy, visually estimated ejection fraction 55% with no regional wall motion abnormality, grade 1 diastolic dysfunction seen without tissue Doppler evidence of raise left atrial pressure. Right Ventricle Right atrium and right ventricle are mildly enlarged with normal contractility. Aortic Valve Aortic valve is minimally thickened and fibrosed, there is no aortic stenosis or aortic insufficiency. Mitral Valve Mitral valve is grossly normal, there is mild mitral regurgitation. Tricuspid Valve Tricuspid valve grossly normal, there is mild tricuspid regurgitation. Pulmonic Valve Pulmonic valve is poorly visualized. Great Vessels Aortic root is normal size. Pericardium No significant pericardial effusion noted. Conclusion 1. Mild biatrial enlargement, normal left ventricular size, mild concentric left ventricular hypertrophy, visually estimated ejection fraction 55% with no regional wall motion abnormality, grade 1 diastolic dysfunction seen without tissue Doppler evidence of raise left atrial pressure. 2. Mildly enlarged right ventricle with normal contractility. 3. Mild mitral and tricuspid regurgitation. 4. No significant pericardial effusion noted. Electronically signed by : Yury Tim, 06/01/2020 12:53:31
--- NOTE | 2020-06-01 10:41 | MM_ITS ---
PROCEDURE: MM DIG SCREENING MAMM BI W/CAD Digital Breast Tomosynthesis Included CLINICAL INDICATION: breast cancer screening There is no history sheet provided. COMPARISON: MG DIGMAMMS MAMMOGRAM SCREEN-ART EDUCATION PROFESSOR N/C from 11/05/2006 MG DMSB DIGITAL MAMM-SCREEN BILATERAL from 08/02/2010 MG DMDBAV DIG MAMM-DX EVA ADD VIEWS from 03/10/2013 TECHNIQUE: Standard CC and MLO images and 3D Tomosynthesis was obtained. R2 CAD reviewed. FINDINGS: The breasts are composed primarily of fat with minimal scattered fibroglandular densities in each breast. There are couple of benign-appearing microcalcifications in each breast. There is no suspicious lesion in either breast no suspicious microcalcifications. IMPRESSION: Low-density fatty type breast parenchyma with no suspicious lesions seen BI-RAD Category: 2 Benign Finding(s) FOLLOW-UP: 1YR 1 Year Follow-up (A letter has been sent to the patient regarding results of the study.) Dictated by: Dr. Elie James MD 06/08/2020 07:33 Dr. Elie James MD in [place] 06/08/2020 07:33
== END ==
PROVIDERS: PCP Emergency Medicine; Visit Provider Family Medicine
DX: R06.00 Dyspnea, unspecified (principal); Z12.31 Encounter for screening mammogram for malignant neoplasm of breast; R94.31 Abnormal electrocardiogram [ECG] [EKG]
CPT/HCPCS: 77063; 77067; 93306; 94060; 94618; 94726; 94729

== ENCOUNTER 2020-06-16 17:00 | Emergency (ER) | payer MEDICARE, OTHER, SELFPAY ==
[2020-06-16 17:19] VITALS: BP 164/97; PULSE 89; RESP 21; TEMP 36.8; O2SAT 96; BMI 62.5
--- NOTE | 2020-06-16 17:22 | HMH.EDUTC ---
[facility] [place] Disposition Clinical Impression: Sinusitis Qualifiers: Sinusitis location: unspecified location Chronicity: unspecified Qualified Code(s): J32.9 - Chronic sinusitis, unspecified Acute bronchitis Qualifiers: Bronchitis organism: unspecified organism Qualified Code(s): J20.9 - Acute bronchitis, unspecified Disposition: Home, Self-Care Condition on Discharge: Good Instructions: Sinusitis, Sinus Headache, DI for Sinusitis, DI for Acute Bronchitis, Doxycycline Additional Instructions: ? Start antibiotic today. Be sure to complete entire prescription even if feeling better ? Monitor temp. Tylenol every 4 hours as needed and / or ibuprofen every 6 hours as needed ( As long as your primary care physician has told you that it ok to take both. For fever/aches/pains ER if no less than 101 despite Tylenol or Motrin ? Humidifier/vaporizer or hot steamy shower ? Inhaler every 4-6 hours as needed like we discussed. If unsure how to use it, ask pharmacist to demonstrate how. Should help open airways and improve cough, wheezing, and shortness of breath ? Mucinex during the day for your cough and cough suppressant only at night. Be sure to drink lots of water. Insurance may not cover a prescriptions for mucinex. Might be cheaper to get 400mg tablets and take 2 tablet in the morning, mid-day and evening with lots of water. *Tessalon Perles will not cause drowsiness but use at bedtime to help stop cough so that you may get some rest. *Start steroid Tomorrow 06/17/20. Helps with inflammation therefore, cough and wheezing. Follow directions on the package. Reviewed side effects. Patient reports taking them before. Follow up IMMEDIATELY for new or worsening of symptoms OR no noticeable improvement over the next 48-72 hours. 911 immediately for any life threatening symptoms such as chest pain or difficulty breathing Prescriptions: Doxycycline Monohydrate [Doxycycline [place] 100mg Tab] 100 mg PO BID 10 Days #20 tab Prescription Printed methylPREDNISolone [Medrol 4mg tab] 4 mg PO DIRECTED #21 tab Prescription Printed Benzonatate [Tessalon Perle 100mg Cap*] 100 mg PO TID PRN #15 cap PRN Reason: Cough Prescription Printed Referrals: Miquel Corado MD [Primary Care Provider] - As needed Time of Disposition: 17:44 Medical Decision Making - Woodrow Inquiry Pt receiving controlled substance: No Woodrow was queried for this patient: No Vital Signs: 06/16/20 17:19 Temperature 98.3 F Temperature Source Oral Pulse Rate [Radial] 89 Respiratory Rate 21 Blood Pressure [Right Arm] 164/97 H Blood Pressure Mean [Right Arm] 119 Blood Pressure Source [Right Arm] Automatic Cuff Blood Pressure Position [Right Arm] Sitting 02 Sat by Pulse Oximetry 96 Oxygen Delivery Method Room Air Orders (Tests/Meds): ED MEDICATIONS Discontinued Medications Generic Name Dose Route Start Last Admin Trade Name Freq PRN Reason Stop Dose Admin Ceftriaxone Sodium 1 gm 06/16/20 17:31 06/16/20 17:37 Ceftriaxone 1gm Vial IM 06/16/20 17:32 1 gm ONCE ONE Administration Protocol Lidocaine HCl 0 ml 06/16/20 17:31 06/16/20 17:37 Lidocaine 1% 5ml Pf Vial IM 06/16/20 17:32 2.1 ml ONCE ONE Administration Methylprednisolone Sodium Succinate 125 mg 06/16/20 17:31 06/16/20 17:37 Methylprednisolone Sod Succ 125mg Vial IM 06/16/20 17:32 125 mg ONCE ONE Administration ORDERS Category Date Time Status Covid-19 Nasal PCR ([facility]) Routine Lab 06/16/20 17:28 Received Medical Decision Narrative: Discussed CXR and patient and she declined state that she will follow up with PCP if no improvement or any worsening of symptoms [facility] [place] HPI - General Stated complaint: SOB,cough,congestion Time Seen by Provider: 06/16/20 17:22 Mode of Arrival: Ambulatory Source of Information: Patient Limitations: No Limitations Description of Symptoms (Recalled from Triage Doc. by RN): cough, chest congestion, sob x 4 days HEENT Symptoms (Reca
[2020-06-16 17:50] VITALS: BP 164/97; PULSE 89; RESP 21; TEMP 36.8; O2SAT 96
== END 2020-06-16 17:51 | disposition home or self-care (01) ==
PROVIDERS: Emergency Provider Nurse Practitioner; PCP Family Medicine
DX: Z20.828 Contact with and (suspected) exposure to other viral communicable diseases (principal); J20.9 Acute bronchitis, unspecified; J44.0 Chronic obstructive pulmonary disease with (acute) lower respiratory infection; J32.9 Chronic sinusitis, unspecified; I10 Essential (primary) hypertension; E03.9 Hypothyroidism, unspecified; Z79.899 Other long term (current) drug therapy; F17.210 Nicotine dependence, cigarettes, uncomplicated; Z88.8 Allergy status to other drugs, medicaments and biological substances
CPT/HCPCS: G0463; 96372; 99202; U0003

== ENCOUNTER 2020-11-26 15:47 | Emergency (ER) | payer MEDICARE, OTHER, SELFPAY ==
[2020-11-26] VITALS (8 sets, daily range): BP systolic 141–170; BP diastolic 66–84; PULSE 70–83; RESP 18–22; TEMP 36.6–37.1; O2SAT 94–97; BMI 68.2
--- NOTE | 2020-11-26 17:08 | HMH.EDUTC ---
[facility] [place] Disposition Condition on Discharge: Good Time of Disposition: 17:25 (sent to ed) <El Peralta - Last Filed: 11/26/20 17:20> Condition on Discharge: Good <Trey Shah - Last Filed: 11/26/20 19:01> Clinical Impression: COPD exacerbation Chest pain Qualifiers: Chest pain type: unspecified Qualified Code(s): R07.9 - Chest pain, unspecified Disposition: Home, Self-Care Instructions: DI for Chronic Obstructive Pulmonary Disease Prescriptions: Doxycycline Hyclate [Doxycycline 100mg Capsule] 100 mg PO Q12 10 Days #20 cap Transmission Status: Pending to [facility] methylPREDNISolone [Medrol 4mg tab] 4 mg PO DIRECTED #21 tab Transmission Status: Pending to [facility] Referrals: Miquel Corado MD [Primary Care Provider] - Medical Decision Making - Woodrow Jack Pt receiving controlled substance: No <El Peralta - Last Filed: 11/26/20 17:20> - Medical Records Medical records reviewed: Yes: I reviewed the patient's medical records. - Woodrow Inquiry Pt receiving controlled substance: No - Lab Data Result diagrams: 11/26/20 17:30 11/26/20 17:30 - Radiology Data #1 Image(s): Chest Image Reviewed: Yes I reviewed the patient's radiology results, Yes I discussed the image results w/the radiologist, Yes I have reviewed radiologist's interpretation Preliminary Findings: Normal/NAD - ECG Data Tracing #1 ECG initial impression date: 11/26/20 ECG initial impression time: 17:23 - Reevaluation(s) Time: 19:00 <Trey Shah - Last Filed: 11/26/20 19:01> Vital Signs: 11/26/20 16:35 11/26/20 18:08 Temperature 98.8 F 97.8 F Temperature Source Oral Oral Pulse Rate [Right Brachial] 79 77 Respiratory Rate 22 18 Blood Pressure [Right Arm] 141/66 H 150/82 H Blood Pressure Mean [Right Arm] 91 104 Blood Pressure Source [Right Arm] Automatic Cuff Automatic Cuff Blood Pressure Position [Right Arm] Sitting Sitting 02 Sat by Pulse Oximetry 95 95 Oxygen Delivery Method Room Air Room Air - Lab Data Lab Results 11/26/20 17:30: WBC 9.7, RBC 5.01, Hgb 13.8, Hct 45.3, MCV 90.4, MCH 27.5, MCHC 30.4 L, RDW 16.3, Plt Count 296, MPV 7.8, Neut % (Auto) 69.0, Lymph % (Auto) 22.7, Charles % (Auto) 5.0, Eos % (Auto) 2.8, Baso % (Auto) 0.6, Neut # (Auto) 6.7, Lymph # (Auto) 2.2, Charles # (Auto) 0.5, Eos # (Auto) 0.3, Baso # (Auto) 0.1 11/26/20 17:30: Sodium 140, Potassium 4.1, Chloride 102, Carbon Dioxide 21 L, Anion Gap 21.1 H, BUN 15, Creatinine 0.90, Estimated Creat Clear 60, Estimated GFR 66, Est GFR ( Amer) 80, Glucose 90, Calcium 9.5, Total Bilirubin 0.4, AST 46 H, ALT 45, Alkaline Phosphatase 199 H, Troponin I < 0.01, Total Protein 8.1, Albumin 4.8, Globulin 3.3 H, Albumin/Globulin Ratio 1.5, TSH 3.69 11/26/20 17:30: PT 10.3, INR 0.86 L, APTT 27.0 11/26/20 17:30: NT-Pro-B Natriuret Pep 80.2 Orders (Tests/Meds): ORDERS Category Date Time Status Troponin I Q3H Lab 11/26/20 20:45 Ordered Troponin I Q3H Lab 11/26/20 23:45 Ordered - ECG Data Tracing #1 Normal ventricular rate of 74 bpm, HI interval 160 ms, normal QTC. Normal sinus rhythm with left axis deviation, nonspecific changes. (Trey Shah) - Reevaluation(s) Reevaluation #1: On reevaluation, patient is feeling better. Troponin negative. Patient be treated for COPD exacerbation. Needs follow-up with PCP. Given strict return precautions. Verbalized understanding. (Trey Shah) Medical Decision Narrative: 50-year-old female presented to the emergency department with some general surgery, chest discomfort shortness of breath for the last few months. Patient has some minimal wheezing on examination. She is hemodynamically stable. Low risk for acute coronary syndrome. Work-up initiated. (Trey Shah) [facility] HPI - General Mode of Arrival: Ambulatory Source of Information: Patient Limitations: No Limitations Description of Symptoms (Recalled from Triage Doc.
--- NOTE | 2020-11-26 17:21 | ECG_ITS ---
APPROVED REPORT Exam: Resting ECG HR:74 bpm ECG Measurements Heart Rate 74 AXES UT 160 P 67 QRSd 112 QRS -37 QT 380 T 45 QTc 421 Conclusion Normal sinus rhythm Left axis deviation Low voltage QRS Right bundle branch block Abnormal ECG Electronically signed by : Fabrizio Rosales, 11/27/2020 16:14:49
--- NOTE | 2020-11-26 17:31 | XR_ITS ---
PROCEDURE INFORMATION: Exam: XR Chest Exam date and time: 11/26/20 05:31 PM Age: 50 years old Clinical indication: Patient HX: Chest pain and SOA; Additional info: Cough TECHNIQUE: Imaging protocol: XR of the chest. Views: 1 view. COMPARISON: CT CHEST WO CON 03/29/20 03:33 PM FINDINGS: Lungs: Hyperexpanded lungs without infiltrate. No consolidation. Pleural spaces: Unremarkable. No pleural effusion. No pneumothorax. Heart/Mediastinum: Unremarkable. No cardiomegaly. Bones/joints: Unremarkable. IMPRESSION: Hyperexpanded lungs without infiltrate.
[2020-11-26 18:06] LABS: Basophils # 0.1 K/mm3 (0-0.2); Basophils % 0.6 % (0.1-2.0); Eosinophils # 0.3 K/mm3 (0.0-0.4); Eosinophils % 2.8 % (0.1-12.0); Hematocrit 45.3 % (37.0-47.0); Hemoglobin 13.8 g/dL (12.2-16.2); Lymphocytes # 2.2 K/mm3 (0.7-4.5); Lymphocytes % 22.7 % (10-50); Mean Corpuscular HGB Conc 30.4 g/dL (31.8-35.4); Mean Corpuscular Hemoglobin 27.5 pg (27.0-31.2); Mean Corpuscular Volume 90.4 fl (81-99); Mean Platelet Volume 7.8 fl (7.4-10.4); Monocytes # 0.5 K/mm3 (0.1-1.0); Neutrophils # 6.7 K/mm3 (1.8-7.8); Platelet Count 296 K/mm3 (142-424); Red Blood Count 5.01 M/mm3 (4.20-5.40); Red Cell Distribution Width 16.3 % (11.5-17.5); White Blood Count 9.7 K/mm3 (4.8-10.8)
[2020-11-26 18:10] LABS: Chloride 102 mmol/L (98-107); Potassium 4.1 mmoL/L (3.5-5.1); Sodium 140 mmol/L (136-145)
[2020-11-26 18:13] LABS: Alanine Aminotransferase 45 U/L (12-78); Albumin Level 4.8 g/dl (3.5-5.0); Albumin/Globulin Ratio 1.5 (1.1-1.8); Alkaline Phosphatase 199 U/L (38-126); Anion Gap 21.1 mEq/L (5-15); Aspartate Amino Transferase 46 U/L (14-36); Bilirubin,Total 0.4 mg/dl (0.2-1.3); Blood Urea Nitrogen 15 mg/dl (7-17); Carbon Dioxide 21 mmol/L (22.0-30.0); Creatinine Clearance Estimated 60 mL/min (50-200); Estimated Glomerular Filt Rate 66 ml/min (>60); GFR (African American) 80 ML/MIN (>60); Globulin 3.3 g/dL (1.3-3.2); INR 0.86 (0.9-1.1); Prothrombin Time 10.3 seconds (10.1-12.5); Total Protein,Serum 8.1 g/dl (6.3-8.2)
[2020-11-26 18:14] LABS: Calcium 9.5 mg/dl (8.4-10.2); Glucose 90 mg/dl (74-100)
[2020-11-26 18:26] LABS: Troponin I < 0.01 ng/ml (0.00-0.034)
[2020-11-26 18:40] LABS: NT Pro Brain Natriuretic Pep. 80.2 pg/mL (0-125)
[2020-11-26 18:44] LABS: Thyroid Stimulating Hormone 3.69 uIU/mL (0.465-4.68)
== END 2020-11-26 19:11 | disposition home or self-care (01) ==
LOC: UTC 15:54 → ER 17:20
PROVIDERS: Emergency Provider Emergency Medicine; PCP Family Medicine
DX: R07.9 Chest pain, unspecified (principal); J44.1 Chronic obstructive pulmonary disease with (acute) exacerbation; I10 Essential (primary) hypertension; E03.9 Hypothyroidism, unspecified; F17.210 Nicotine dependence, cigarettes, uncomplicated; R06.09 Other forms of dyspnea
CPT/HCPCS: 71045; 80053; 83880; 84443; 84484; 85025; 85610; 85730; 93005; 99283

== ENCOUNTER 2021-01-10 15:19 | Emergency (ER) | payer MEDICARE, OTHER, SELFPAY ==
[2021-01-10 15:20] VITALS: BP 157/70; PULSE 92; RESP 22; TEMP 36.8; O2SAT 92; BMI 67.8
[2021-01-10 15:35] LABS: POC Glucose,Bedside 128 (70-110)
--- NOTE | 2021-01-10 15:42 | HMH.EDGENADL ---
ED Disposition Clinical Impression: Dizziness, Generalized weakness, Perimenopausal, Vaginal bleeding Hypothyroidism Qualifiers: Hypothyroidism type: unspecified Qualified Code(s): E03.9 - Hypothyroidism, unspecified Cellulitis Qualifiers: Site of cellulitis: trunk Site of cellulitis of trunk: abdominal wall Qualified Code(s): L03.311 - Cellulitis of abdominal wall Disposition: Home, Self-Care Condition on Discharge: Good Instructions: DI for Cellulitis -- Adult, DI for Vertigo, DI for Dizziness-Nonvertigo Additional Instructions: Clindamycin as prescribed. Antivert as needed for vertigo. See Dr. Corado/Dr. Mcarthur in the office tomorrow at 10 AM or 1 PM. Return to the emergency department if fever greater than 100.5 degrees, vomiting, severe dizziness. Prescriptions: Meclizine HCl [Antivert 25mg tablet] 25 mg PO TIDP PRN #15 tab PRN Reason: Vertigo Transmission Status: Received by [facility] clindamycin HCL [Clindamycin HCl] 300 mg PO QID #40 cap Transmission Status: Received by [facility] Referrals: Miquel Corado MD [Primary Care Provider] - - Critical Care Critical Care Time: No Attestation: On 01/10/21, the high probability of a clinically significant, sudden or life threatening deterioration of the following system(s) required my full and direct attention, intervention and personal management. The time I documented below is in addition to time spent performing reported procedures but includes the following listed in this critical care notation. Medical Decision Making - Woodrow Inquiry Pt receiving controlled substance: No Vital Signs: 01/10/21 15:20 01/10/21 16:00 01/10/21 16:04 Temperature 98.2 F Temperature Source Oral Pulse Rate 81 81 Pulse Rate [Left] 92 H Respiratory Rate 22 20 Blood Pressure 133/78 Blood Pressure [Right Arm] 157/70 H Blood Pressure Mean Blood Pressure Mean [Right Arm] 99 Blood Pressure Source Blood Pressure Source [Right Arm] Automatic Cuff Blood Pressure Position Blood Pressure Position [Right Arm] Supine 02 Sat by Pulse Oximetry 92 L 95 96 Oxygen Delivery Method Room Air 01/10/21 17:30 01/10/21 18:14 Temperature 98.2 F Temperature Source Oral Pulse Rate 75 75 Pulse Rate [Left] Respiratory Rate 20 20 Blood Pressure 146/80 H 131/65 Blood Pressure [Right Arm] Blood Pressure Mean 97 Blood Pressure Mean [Right Arm] Blood Pressure Source Automatic Cuff Blood Pressure Source [Right Arm] Blood Pressure Position Sitting Blood Pressure Position [Right Arm] 02 Sat by Pulse Oximetry 93 L Oxygen Delivery Method Room Air - Lab Data Lab Results 01/10/21 15:26: POC Glucose 128 H 01/10/21 15:32: WBC 9.4, RBC 4.94, Hgb 14.1, Hct 43.3, MCV 87.7, MCH 28.7, MCHC 32.7, RDW 16.0, Plt Count 312, MPV 7.6, Neut % (Auto) 58.2, Lymph % (Auto) 33.6, [place] % (Auto) 5.1, Eos % (Auto) 2.5, Baso % (Auto) 0.7, Neut # (Auto) 5.5, Lymph # (Auto) 3.2, [place] # (Auto) 0.5, Eos # (Auto) 0.2, Baso # (Auto) 0.1 01/10/21 15:32: Sodium 137, Potassium 4.6, Chloride 100, Carbon Dioxide 31 H, Anion Gap 10.6, BUN 9, Creatinine 0.90, Estimated Creat Clear 60, Estimated GFR 66, Est GFR ( Amer) 80, Glucose 134 H, Calcium 9.2, Total Bilirubin 0.2, AST 24, ALT 16, Alkaline Phosphatase 97, Troponin I < 0.01, Total Protein 7.2, Albumin 3.8, Globulin 3.4 H, Albumin/Globulin Ratio 1.1, Lipase 50, TSH 21.20 H 01/10/21 15:43: Specimen Source Right radial, O2 % Ra, ABG pH 7.40, ABG pCO2 47.7 H, ABG pO2 62.4 L, ABG HCO3 29.0 H, ABG Total CO2 30.5 H, ABG O2 Saturation 93, ABG Base Excess 4.2 H, Wei Test Acceptable 01/10/21 15:52: Urine Color Yellow, Urine Appearance Clear, Urine pH 7.0, Ur Specific [place] 1.010, Urine Protein Negative, Urine Glucose (UA) Negative, Urine Ketones Negative, Urine Blood Negative, Urine Nitrate Negative, Urine Bilirubin Negative, Urine Urobilinogen 0.2, Ur Leukocyte Esterase Negative, Urine WBC Occasional, Ur Squamous
--- NOTE | 2021-01-10 15:44 | XR_ITS ---
PROCEDURE: XR CHEST PORTABLE CLINICAL HISTORY: weak Weakness, smoker COMPARISON: CR XR CHEST 2V from 12/04/2019 CR XR CHEST 2V from 01/31/[address] CHEST WO CON from 03/29/2020 CR XR CHEST PORTABLE from 11/26/2020 FINDINGS: The cardiomediastinal silhouette and pulmonary vascularity are within normal limits. Patchy density is present in the left midlung and could be due to an area of atelectasis or summation artifact. Upright PA and lateral chest may confirm. The remaining lungs are clear. No acute bony abnormalities. IMPRESSION: Patchy density left perihilar region which may be due to summation artifact versus some med lung atelectatic change. Dictated by: Wei Mendoza MD 01/10/2021 16:23 Wei Mendoza MD in [place] 01/10/2021 16:23
--- NOTE | 2021-01-10 15:49 | CT_ITS ---
PROCEDURE INFORMATION: Exam: CT Abdomen And Pelvis With Contrast Exam date and time: 01/10/2021 3:49 PM Age: 50 years old Clinical indication: Patient HX: Abdominal pain, left sided hernia since 2013. HX of hernia repair before the current one TECHNIQUE: Imaging protocol: Computed tomography of the abdomen and pelvis with contrast. Radiation optimization: All CT scans at this facility use at least one of these dose optimization techniques: automated exposure control; mA and/or kV adjustment per patient size (includes targeted exams where dose is matched to clinical indication); or iterative reconstruction. Contrast material: ISOVUE; Contrast volume: 75 ml; Contrast route: IV; COMPARISON: 1. CT ABDOMEN PELVIS WO CON 03/29/2020 3:[address] ABD PELVIS W/ CONTRAST 02/29/2016 10:06 AM FINDINGS: Liver: Normal. No mass. Gallbladder and bile ducts: There has been a cholecystectomy. Pancreas: Normal. No ductal dilation. Spleen: Normal. No splenomegaly. Adrenal glands: Normal. No mass. Kidneys and ureters: Normal. No hydronephrosis. Stomach and bowel: A large amount of stool is noted throughout the colon. The colon and small intestine were not entirely imaged on the study. Appendix: No evidence of appendicitis. Intraperitoneal space: Normal. No significant fluid collection. Vasculature: Unremarkable. No abdominal aortic aneurysm. Lymph nodes: Unremarkable. No enlarged lymph nodes. Urinary bladder: Unremarkable as visualized. Reproductive: Unremarkable as visualized. Bones/joints: The lumbar spine demonstrates mild degenerative changes at multiple levels. Soft tissues: Large ventral wall hernia with bowel and fat present. IMPRESSION: 1. Large ventral wall hernia with bowel and fat present. 2. A large amount of stool is noted throughout the colon. 3. The colon and small intestine were not entirely imaged on the study.
[2021-01-10 15:51] LABS: Basophils # 0.1 K/mm3 (0-0.2); Basophils % 0.7 % (0.1-2.0); Eosinophils # 0.2 K/mm3 (0.0-0.4); Eosinophils % 2.5 % (0.1-12.0); Hematocrit 43.3 % (37.0-47.0); Hemoglobin 14.1 g/dL (12.2-16.2); Lymphocytes # 3.2 K/mm3 (0.7-4.5); Lymphocytes % 33.6 % (10-50); Mean Corpuscular HGB Conc 32.7 g/dL (31.8-35.4); Mean Corpuscular Hemoglobin 28.7 pg (27.0-31.2); Mean Corpuscular Volume 87.7 fl (81-99); Mean Platelet Volume 7.6 fl (7.4-10.4); Monocytes # 0.5 K/mm3 (0.1-1.0); Monocytes % 5.1 % (1.7-9.3); Neutrophils # 5.5 K/mm3 (1.8-7.8); Neutrophils % 58.2 % (37.0-80.0); Platelet Count 312 K/mm3 (142-424); Red Blood Count 4.94 M/mm3 (4.20-5.40); White Blood Count 9.4 K/mm3 (4.8-10.8)
[2021-01-10 16:00] VITALS: BP 133/78; PULSE 81; RESP 20; O2SAT 95
[2021-01-10 16:02] LABS: ABG Base Excess 4.2 mmol/L (-2.4-2.3); ABG Oxygen Saturation 93 % (90-100); ABG PCO2 47.7 mmhg (35.0-45.0); ABG PO2 62.4 mmhg (80-100); ABG TCO2 30.5 mmhg (23-27)
[2021-01-10 16:03] LABS: Microscopic, Urine URINE MICROSCOPIC (MICROSCOPIC)
--- NOTE | 2021-01-10 16:03 | ECG_ITS ---
APPROVED REPORT Exam: Resting ECG HR:80 bpm ECG Measurements Heart Rate 80 AXES GA 158 P 66 QRSd 114 QRS -43 QT 386 T -2 QTc 445 Conclusion Normal sinus rhythm Left axis deviation Right bundle branch block Inferior infarct, age undetermined Abnormal ECG Electronically signed by : Fabrizio Rosales, 01/10/2021 18:01:46
[2021-01-10 16:04] VITALS: PULSE 81; O2SAT 96
[2021-01-10 16:06] LABS: Allen's Test Acceptable; Oxygen RA %; Source Right Radial
[2021-01-10 16:11] LABS: Chloride 100 mmol/L (98-107); Potassium 4.6 mmoL/L (3.5-5.1); Sodium 137 mmol/L (136-145)
[2021-01-10 16:12] LABS: Appearance,Urine CLEAR (Clear); Bilirubin,Urine Negative (Negative); Blood, Urine Negative (Negative); Color,Urine YELLOW (Yellow); Glucose,Urine (UA) Negative (Negative); Ketones,Urine Negative (Negative); Leukocyte Esterase,Urine Negative (Negative); Nitrate,Urine Negative (Negative); Protein,Urine Negative (Negative); Urobilinogen,Urine 0.2 EU/dl (0.2)
[2021-01-10 16:13] LABS: Blood Urea Nitrogen 9 mg/dl (7-17); Creatinine Clearance Estimated 60 mL/min (50-200); Estimated Glomerular Filt Rate 66 ml/min (>60); GFR (African American) 80 ML/MIN (>60)
[2021-01-10 16:13] LABS: Urine Pregnancy, HCG Qual. Negative (Negative)
[2021-01-10 16:14] LABS: Alanine Aminotransferase 16 U/L (12-78); Albumin Level 3.8 g/dl (3.5-5.0); Albumin/Globulin Ratio 1.1 (1.1-1.8); Alkaline Phosphatase 97 U/L (38-126); Anion Gap 10.6 mEq/L (5-15); Aspartate Amino Transferase 24 U/L (14-36); Bilirubin,Total 0.2 mg/dl (0.2-1.3); Calcium 9.2 mg/dl (8.4-10.2); Carbon Dioxide 31 mmol/L (22.0-30.0); Globulin 3.4 g/dL (1.3-3.2); Glucose 134 mg/dl (74-100); Lipase 50 U/L (23-300); Total Protein,Serum 7.2 g/dl (6.3-8.2)
[2021-01-10 16:29] LABS: Troponin I < 0.01 ng/ml (0.00-0.034)
[2021-01-10 16:32] LABS: Bacteria,Urine Trace /lpf; WBC,Urine Occasional #/hpf (0-3)
[2021-01-10 17:30] VITALS: BP 146/80; PULSE 75; RESP 20; O2SAT 93
--- NOTE | 2021-01-10 17:46 | PC.NURSE ---
dr Cobb spoke with Dr Mcarthur
[2021-01-10 18:14] VITALS: BP 131/65; PULSE 75; RESP 20; TEMP 36.8; O2SAT 92
== END 2021-01-10 18:28 | disposition home or self-care (01) ==
PROVIDERS: Emergency Provider Emergency Medicine; PCP Family Medicine
DX: R42 Dizziness and giddiness (principal); L03.311 Cellulitis of abdominal wall; E03.9 Hypothyroidism, unspecified; I10 Essential (primary) hypertension; J44.9 Chronic obstructive pulmonary disease, unspecified; F17.210 Nicotine dependence, cigarettes, uncomplicated; Z79.899 Other long term (current) drug therapy
CPT/HCPCS: 71045; 74177; 80053; 81001; 81025; 82803; 82962; 83690; 84443; 84484; 85025; 93005; 96365; 99283; Q9967

== ENCOUNTER → 2021-01-31 12:42 | Outpatient (CLI) | payer MEDICARE, BC, SELFPAY ==
--- NOTE | 2021-01-31 12:49 | XR_ITS ---
PROCEDURE: XR KNEE LT 3V CLINICAL INDICATION: pain COMPARISON: CR [id number] KNEE-LIMITED 2 VIEWS-RT from 01/25/2014 CR [id number] KNEE-3 VIEWS-RT from 12/16/2016 CR [id number] XR knee LT 4V from 09/23/2017 FINDINGS: There are moderate osteoarthritic changes of the medial compartment and mild osteoarthritis of the lateral compartment and patellofemoral joint. Lateral view is somewhat rotated. There may be a small suprapatellar effusion. No fracture or dislocation. No lytic or blastic change. Other findings:None. IMPRESSION: Osteoarthritic changes slightly progressed compared to the previous exam Dictated by: Wei Mendoza MD 01/31/2021 14:21 Wei Mendoza MD in [place] 01/31/2021 14:21
--- NOTE | 2021-01-31 12:49 | XR_ITS ---
PROCEDURE: XR HIP LT 2-3V W/PELVIS CLINICAL INDICATION: left hip pain COMPARISON: No exams were available for comparison FINDINGS: Mild osteoarthritic changes are present involving the left hip. No acute fracture or dislocation. There are minimal osteoarthritic changes also of the right hip as seen on the AP view of the pelvis. IMPRESSION: Mild osteoarthritis of the hips Dictated by: Wei Mendoza MD 01/31/2021 15:49 Wei Mendoza MD in [place] 01/31/2021 15:49
--- NOTE | 2021-01-31 12:49 | XR_ITS ---
PROCEDURE: XR KNEE RT 3V CLINICAL INDICATION: pain COMPARISON: CR [id number] KNEE-LIMITED 2 VIEWS-RT from 01/25/2014 CR [id number] KNEE-3 VIEWS-RT from 12/16/2016 CR [id number] XR knee LT 4V from 09/23/2017 FINDINGS: Are moderate to severe osteoarthritic changes of the medial compartment and mild osteoarthritis of the lateral compartment and patellofemoral joint. There is decrease in the joint space medially with osteophyte formation and osteosclerosis of the endplates. No acute fracture or dislocation. Other findings:None. IMPRESSION: Moderate to severe osteoarthritic changes of the medial compartment which has progressed Dictated by: Wei Mendoza MD 01/31/2021 14:00 Wei Mendoza MD in [place] 01/31/2021 14:00
== END ==
PROVIDERS: PCP Family Medicine; Visit Provider Orthopaedic Surgery
DX: M25.552 Pain in left hip; M25.562 Pain in left knee; M25.561 Pain in right knee
CPT/HCPCS: 73502; 73562

== ENCOUNTER 2021-01-31 19:42 | Emergency (ER) | payer MEDICARE, OTHER, SELFPAY ==
[2021-01-31 19:45] VITALS: BP 149/96; PULSE 81; RESP 19; TEMP 36.6; O2SAT 96; BMI 67.8
--- NOTE | 2021-01-31 20:13 | HMH.EDUTC ---
[facility] [place] Clinical Impression: Knee pain Qualifiers: Chronicity: unspecified Laterality: left Qualified Code(s): M25.562 - Pain in left knee Disposition: Home, Self-Care Condition on Discharge: Good Instructions: DI for Knee Pain Additional Instructions: *weight bearing as tolerated *RICE, Rest the extremity, Ice 15-20 minutes 3-4 times daily, Compress- wear the gerber wrap as discussed as much as possible to help reduce swelling and pain, Elevate the extremity when at rest *Gerber wrap is for support and help control swelling, use it except in the shower. Be sure that is not to tight but not to loose either *Elevate when resting *Ibuprofen every 6-8 hours as needed for pain an inflammation if your doctor has said that you can take it If need something more can take Tylenol in between doses of Ibuprofen to help Immediately follow up with your family doctor for new or worsening of symptoms, or no noticeable improvement over the next 3-5 days Follow up with your Family Doctor for further treatment and evaluation Return if needed Straight to ER if any life threatening symptoms Referrals: Miquel Corado MD [Primary Care Provider] - As needed Time of Disposition: 20:44 Medical Decision Making - Woodrow Inquiry Pt receiving controlled substance: No Woodrow was queried for this patient: No Vital Signs: 01/31/21 19:45 Temperature 97.8 F Temperature Source Oral Pulse Rate [Right Brachial] 81 Respiratory Rate 19 Blood Pressure [Right Arm] 149/96 H Blood Pressure Mean [Right Arm] 113 Blood Pressure Source [Right Arm] Automatic Cuff Blood Pressure Position [Right Arm] Sitting 02 Sat by Pulse Oximetry 96 Oxygen Delivery Method Room Air Medical Decision Narrative: Viewed results from xrays Patient has seen PCP and currently waiting to go to Orthopedics but states that she came in due to pain in her left knee tonight wanting to see if she can get something for pain Medications discussed with pharmacy and due to being on Meloxicam Pharmacy agreed to one time dose of 15mg of Toradol for pain [facility] [place] - General Stated complaint: LEFT LEG PAIN Time Seen by Provider: 01/31/21 20:13 Mode of Arrival: Ambulatory Source of Information: Patient Limitations: No Limitations Description of Symptoms (Recalled from Triage Doc. by RN): PATIENT C/O LEFT LEG AND KNEE PAIN. STATES PRESCRIBED MELOXICAM IS NOT WORKING HEENT Symptoms (Recalled from RN notes): No Resp Symptoms (Recalled from RN notes): No Skin Symptoms (Recalled from RN notes): No MS Symptoms (Recalled from RN notes): Yes Functional Status (Recalled from RN notes): WNL - History of Present Illness Provider Complaint: Patient state that she has been having pain in her left knee and hip States that she has seen her PCP and had xrays done today for Dr Cruz and has appointment with Dr Cruz in Feb State that when she got home she was having pain in her left knee from being out all day and her meloxicam is not working to help with the pain and she did not have anything to take so she came in to see if she could get something to help with her knee pain - Related Data Home Medications Medication Instructions Recorded Confirmed Trazodone HCl 150 mg PO BID 11/26/20 01/25/21 lisinopriL [Prinivil 10mg Tablet] 10 mg PO DAILY 11/26/20 01/25/21 albuterol sulfate 90 mcg/actuation 2 puff INHALATION Q4-6H PRN 11/29/20 01/25/21 aerosol inhaler aripiprazole 15 mg tablet 15 mg PO HS 11/29/20 01/25/21 fluticasone fur. 200 mcg-umeclid 1 inh INHALATION DAILY 11/29/20 01/25/21 62.5 mcg-vilant 25 mcg inhalat.powder ropinirole 1 mg tablet 1 mg PO HS 11/29/20 01/25/21 Previous Rx's Medication Instructions Recorded bupropion HCl 200 mg tablet,12 hr See Rx Instructions .ROUTE 01/01/21 sustained-release .COMPLEX #90 tablet Meclizine HCl [Antivert 25mg 25 mg PO TIDP PRN #15 tab 01/10/21 tablet] gabapentin 100 mg capsule 100 mg PO DAILY #30 cap 01/25/21 levothyroxine 150 mcg tablet 3
[2021-01-31 20:48] VITALS: BP 149/96; PULSE 81; RESP 19; TEMP 36.6; O2SAT 96
== END 2021-01-31 20:54 | disposition home or self-care (01) ==
PROVIDERS: Emergency Provider Nurse Practitioner; PCP Family Medicine
DX: M25.562 Pain in left knee (principal); I10 Essential (primary) hypertension; E03.9 Hypothyroidism, unspecified; Z79.899 Other long term (current) drug therapy
CPT/HCPCS: G0463; 73502; 73562; 96372; 99202

== ENCOUNTER 2021-02-12 14:22 | Emergency (ER) | payer MEDICARE, OTHER, SELFPAY ==
[2021-02-12 14:24] VITALS: BP 135/65; PULSE 81; RESP 15; TEMP 36.7; O2SAT 97; BMI 67.8
--- NOTE | 2021-02-12 14:38 | CA_ITS ---
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: CN Indications engorged veins/ calf pain Risk Factors lt medial calf pain x 2 days, hx- left meniscus repaiir, arthritis of left leg Vein Imaging CFV (L): compressive, spontaneous, phasic, augmentation SFJ (L): compressive, spontaneous, phasic, augmentation FEM (L): compressive, spontaneous, phasic, augmentation POP (L): compressive, spontaneous, phasic, augmentation DFV (L): compressive, spontaneous, phasic, augmentation PTV (L): compressive, spontaneous, phasic, augmentation GSV (L): compressive, spontaneous, phasic, augmentation Peroneals (L):compressive, spontaneous, phasic, augmentation GAS (L): compressive, spontaneous, phasic, augmentation Findings Color flow duplex demonstrates no evidence of DVT of the following left lower extremity Veins:Common Femoral Vein, Femoral Vein, Popliteal Vein, Posterior Tibial Veins, Peroneal Veins, Deep Femoral Vein. No evidence of DVT. Conclusion No evidence of DVT. Electronically signed by : Wei Mendoza MD 02/12/2021 17:18:39
--- NOTE | 2021-02-12 14:42 | HMH.EDGENADL ---
ED Disposition Clinical Impression: Lower leg pain Qualifiers: Laterality: left Qualified Code(s): M79.662 - Pain in left lower leg Disposition: Home, Self-Care Condition on Discharge: Good Referrals: Miquel Corado MD [Primary Care Provider] - - Critical Care Critical Care Time: No Attestation: On 02/12/21, the high probability of a clinically significant, sudden or life threatening deterioration of the following system(s) required my full and direct attention, intervention and personal management. The time I documented below is in addition to time spent performing reported procedures but includes the following listed in this critical care notation. Medical Decision Making - Medical Records Medical records reviewed: Yes: I reviewed the patient's medical records. - Woodrow Inquiry Pt receiving controlled substance: No Vital Signs: 02/12/21 14:24 02/12/21 15:38 Temperature 98.0 F Temperature Source Oral Pulse Rate 81 Pulse Rate [Right] 81 Respiratory Rate 15 20 Blood Pressure 143/66 H Blood Pressure [Right Arm] 135/65 Blood Pressure Mean [Right Arm] 88 02 Sat by Pulse Oximetry 97 92 L Oxygen Delivery Method Room Air - US Data US Images: Lower Extremity ED US Reviewed: Yes: I have reviewed the patient's US results Preliminary Findings: Normal/NAD Medical Decision Narrative: 50-year-old female who is well-appearing nontoxic on initial examination who presents with concerns for a blood clot in the left leg with no history of thrombosis due to decreased mobility and arthritis. Patient has calf tenderness and mild venous engorgement of the superficial veins. Duplex venous was ordered of the left lower extremity. Ultrasound is negative and there is no evidence of cellulitis. Pt was given return precautions and discharged in good conditin. General Adult HPI - General Stated complaint: pain/warmness lt leg Time Seen by Provider: 02/12/21 14:42 Mode of Arrival: Ambulatory Source of Information: Patient Limitations: No Limitations - History of Present Illness HPI narrative: 50-year-old female who presents with left calf pain. She called her primary care was concerned about a blood clot so they sent her in here for evaluation. States is been hurting for several days she is not very ambulatory due to her obesity and arthritis of the left knee. She has pain with movement. No history of blood clots she is not on blood thinners. Denies chest pain or shortness of breath beyond her chronic COPD symptoms pain is sharp and crampy 6 out of 10 at this time. No medication prior to arrival. - Related Data Home Medications Medication Instructions Recorded Confirmed Trazodone HCl 150 mg PO BID 11/26/20 01/25/21 lisinopriL [Prinivil 10mg Tablet] 10 mg PO DAILY 11/26/20 01/25/21 albuterol sulfate 90 mcg/actuation 2 puff INHALATION Q4-6H PRN 11/29/20 01/25/21 aerosol inhaler aripiprazole 15 mg tablet 15 mg PO HS 11/29/20 01/25/21 fluticasone fur. 200 mcg-umeclid 1 inh INHALATION DAILY 11/29/20 01/25/21 62.5 mcg-vilant 25 mcg inhalat.powder ropinirole 1 mg tablet 1 mg PO HS 11/29/20 01/25/21 Previous Rx's Medication Instructions Recorded bupropion HCl 200 mg tablet,12 hr See Rx Instructions .ROUTE 01/01/21 sustained-release .COMPLEX #90 tablet Meclizine HCl [Antivert 25mg 25 mg PO TIDP PRN #15 tab 01/10/21 tablet] gabapentin 100 mg capsule 100 mg PO DAILY #30 cap 01/25/21 levothyroxine 150 mcg tablet 300 mcg PO DAILY #60 tab 01/25/21 methylprednisolone 4 mg tablets in See Rx Instructions PO PER PKG DIR 01/25/21 a dose pack #21 tab tramadol 50 mg tablet 50 mg PO TID PRN #90 tab 02/04/21 Allergies Allergy/AdvReac Type Severity Reaction Status Date / Time adhesive tape [ADHESIVE TAPE] Allergy Unknown Verified 01/25/21 09:27 hydromorphone [From DILAUDID] Allergy Unknown Verified 01/25/21 09:27 nickel [NICKEL] Allergy Unknown Verified 01/25/21 09:27 [facility] History - Hepati
[2021-02-12 15:38] VITALS: BP 143/66; PULSE 81; RESP 20; O2SAT 92
[2021-02-12 16:48] VITALS: BP 134/74; PULSE 78; RESP 16; TEMP 36.6; O2SAT 98
== END 2021-02-12 16:49 | disposition home or self-care (01) ==
PROVIDERS: Emergency Provider Student in an Organized Health Care Education/Training Program; PCP Family Medicine
DX: M79.662 Pain in left lower leg (principal); I10 Essential (primary) hypertension; E03.9 Hypothyroidism, unspecified; J44.9 Chronic obstructive pulmonary disease, unspecified; G45.8 Other transient cerebral ischemic attacks and related syndromes; F17.210 Nicotine dependence, cigarettes, uncomplicated
CPT/HCPCS: 93971; 99282

== ENCOUNTER 2021-02-22 19:00 | Emergency (ER) | payer MEDICARE, OTHER, SELFPAY ==
[2021-02-22 19:00] VITALS: BP 143/60; PULSE 86; RESP 20; TEMP 37.3; O2SAT 96; BMI 67.8
[2021-02-22 20:00] VITALS: BP 152/90; PULSE 100; O2SAT 96
--- NOTE | 2021-02-22 20:25 | HMH.EDUTC ---
[facility] [place] Disposition Clinical Impression: Abdominal pain Qualifiers: Abdominal location: unspecified location Qualified Code(s): R10.9 - Unspecified abdominal pain Disposition: Still a Patient Condition on Discharge: Fair Referrals: Miquel Corado MD [Primary Care Provider] - Medical Decision Making - Woodrow Inquiry Pt receiving controlled substance: No Woodrow was queried for this patient: No Vital Signs: 02/22/21 19:00 02/22/21 20:44 Temperature 99.2 F 99.5 F Temperature Source Oral Oral Pulse Rate [Right Brachial] 86 108 H Respiratory Rate 20 18 Blood Pressure [Right Arm] 143/60 H 145/68 H Blood Pressure Mean [Right Arm] 87 93 Blood Pressure Source [Right Arm] Automatic Cuff Blood Pressure Position [Right Arm] Sitting 02 Sat by Pulse Oximetry 96 95 Oxygen Delivery Method Room Air - Lab Data Lab Results 02/22/21 20:55: WBC 11.5 H, RBC 5.41 H, Hgb 15.3, Hct 47.1 H, MCV 87.1, MCH 28.3, MCHC 32.5, RDW 15.7, Plt Count 280, MPV 8.2, Neut % (Auto) 75.2, Lymph % (Auto) 17.3, [place] % (Auto) 5.9, Eos % (Auto) 1.1, Baso % (Auto) 0.5, Neut # (Auto) 8.6 H, Lymph # (Auto) 2.0, [place] # (Auto) 0.7, Eos # (Auto) 0.1, Baso # (Auto) 0.1 02/22/21 20:55: Sodium 136, Potassium 4.2, Chloride 98, Carbon Dioxide 30, Anion Gap 12.2, BUN 8, Creatinine 0.90, Estimated Creat Clear 60, Estimated GFR 66, Est GFR ( Amer) 80, Glucose 106 H, Calcium 9.6, Total Bilirubin 0.5, AST 33, ALT 25, Alkaline Phosphatase 106, C-Reactive Protein 113.1 H, Total Protein 7.9, Albumin 4.2, Globulin 3.7 H, Albumin/Globulin Ratio 1.1 Result diagrams: 02/22/21 20:55 02/22/21 20:55 Orders (Tests/Meds): ORDERS Category Date Time Status CT abdomen pelvis w con Stat Cat Scan 08/06/21 20:56 Ordered Lactic Acid Stat Lab 08/06/21 20:59 Ordered Medical Decision Narrative: Patient being transferred to the ED due to abdominal pain, redness and warmth to left side of abdomen with history of hernia Patient denies hitting abdomen and felt like she may have had a fever yesterday States that her pain is a 7-10 and this evening it looked worse so she came in to get checked States that also she having some bleeding from a previous incision site Recommended that patient be transferred to the ED for further work up and evaluation due to area on abdomen possible abscess/cellulitis area red/bruising with skin warm to the touch Called ED spoke with Rohit MADISON and patient was moved to room 10 [facility] [place] HPI - General Stated complaint: bruise on top of hernia Time Seen by Provider: 02/22/21 20:25 Mode of Arrival: Ambulatory Source of Information: Patient Limitations: No Limitations Description of Symptoms (Recalled from Triage Doc. by RN): PATIENT C/O BRUISING AND BURING TO ABDOMINAL HERNIA SINCE THIS MORNING. SHE STATES SHE BELIEVES SHE WAS POSSIBLE RUNNING A FEVER YESTERAY WELL. BRUISE AND REDNESS NOTED TO HERNIA. SHE REPORTS HERNIA HAS BEEN THERE SINCE 2013. HEENT Symptoms (Recalled from RN notes): No Resp Symptoms (Recalled from RN notes): No Skin Symptoms (Recalled from RN notes): No MS Symptoms (Recalled from RN notes): No Functional Status (Recalled from RN notes): WNL - History of Present Illness Provider Complaint: Patient states that she has had a hernia on her abdomen since 2013 States that she woke up today and noticed she had some bruising on her abdomen around where her hernia is and having some burning and pain in her left side of abdomen States that also she noticed she was having some bleeding at times from the old inscision on her abdomen and felt like she may have had a fever earlier States that bruising and redness on her abdomen was there when she woke up this morning and denies hitting abdomen - Related Data Home Medications Medication Instructions Recorded Confirmed Trazodone HCl 150 mg PO BID 11/26/20 01/25/21 lisinopriL [Prinivil 10mg Tablet] 10 mg PO DAILY 11/26/20 01/25/21 albuterol sulfate 90 mcg/actuation 2 puff INHALATION Q4-6H ME
[2021-02-22 20:44] VITALS: BP 145/68; PULSE 108; RESP 18; TEMP 37.5; O2SAT 95; BMI 67.3
--- NOTE | 2021-02-22 20:56 | CT_ITS ---
PROCEDURE INFORMATION: Exam: CT Abdomen And Pelvis With Contrast Exam date and time: 02/22/2021 8:56 PM Age: 50 years old Clinical indication: Other: Hernia more enlarged and red skin and painful; Prior surgery; Surgery date: 6+ months; Surgery type: Multiple hernia surgeries and bowel; Additional info: Hernia, abd pain TECHNIQUE: Imaging protocol: Computed tomography of the abdomen and pelvis with contrast. Radiation optimization: All CT scans at this facility use at least one of these dose optimization techniques: automated exposure control; mA and/or kV adjustment per patient size (includes targeted exams where dose is matched to clinical indication); or iterative reconstruction. Contrast material: ISOVUE; Contrast volume: 75 ml; Contrast route: IV; COMPARISON: CT ABDOMEN PELVIS W CON 01/10/2021 4:52 PM FINDINGS: Liver: Somewhat ill-defined 3.2 x 2.4 cm hypoattenuating right hepatic lesion which was not definitely visualized prior examination. Gallbladder and bile ducts: Post cholecystectomy change. Pancreas: Normal enhancement. No ductal dilation. Spleen: No splenomegaly. Adrenal glands: No mass. Kidneys and ureters: No hydronephrosis. Stomach and bowel: No obstruction. No mucosal thickening. Appendix: No evidence of appendicitis. Intraperitoneal space: No free air. No significant fluid collection. Vasculature: No abdominal aortic aneurysm. Lymph nodes: No enlarged lymph nodes. Urinary bladder: No acute abnormality. Reproductive: No acute abnormality. Bones/joints: No acute fracture. Soft tissues: Extensive subcutaneous adipose extending beyond the field of view. 24.2 x 11.9 cm fat and bowel containing left paramedian ventral hernia. IMPRESSION: 1. Somewhat ill-defined 3.2 x 2.4 cm hypoattenuating right hepatic lesion which was not definitely visualized prior examination. Further evaluation with non-emergent liver MRI is recommended. 2. 24.2 x 11.9 cm fat and bowel containing left paramedian ventral hernia.
[2021-02-22 21:00] VITALS: BP 151/89; PULSE 107; O2SAT 97
[2021-02-22 21:04] LABS: Basophils # 0.1 K/mm3 (0-0.2); Basophils % 0.5 % (0.1-2.0); Eosinophils # 0.1 K/mm3 (0.0-0.4); Eosinophils % 1.1 % (0.1-12.0); Hematocrit 47.1 % (37.0-47.0); Hemoglobin 15.3 g/dL (12.2-16.2); Lymphocytes % 17.3 % (10-50); Mean Corpuscular HGB Conc 32.5 g/dL (31.8-35.4); Mean Corpuscular Hemoglobin 28.3 pg (27.0-31.2); Mean Corpuscular Volume 87.1 fl (81-99); Mean Platelet Volume 8.2 fl (7.4-10.4); Monocytes # 0.7 K/mm3 (0.1-1.0); Monocytes % 5.9 % (1.7-9.3); Neutrophils # 8.6 K/mm3 (1.8-7.8); Neutrophils % 75.2 % (37.0-80.0); Platelet Count 280 K/mm3 (142-424); Red Blood Count 5.41 M/mm3 (4.20-5.40); Red Cell Distribution Width 15.7 % (11.5-17.5); White Blood Count 11.5 K/mm3 (4.8-10.8)
[2021-02-22 21:08] LABS: Chloride 98 mmol/L (98-107); Potassium 4.2 mmoL/L (3.5-5.1); Sodium 136 mmol/L (136-145)
[2021-02-22 21:11] LABS: Alanine Aminotransferase 25 U/L (12-78); Albumin Level 4.2 g/dl (3.5-5.0); Albumin/Globulin Ratio 1.1 (1.1-1.8); Alkaline Phosphatase 106 U/L (38-126); Anion Gap 12.2 mEq/L (5-15); Aspartate Amino Transferase 33 U/L (14-36); Bilirubin,Total 0.5 mg/dl (0.2-1.3); Blood Urea Nitrogen 8 mg/dl (7-17); Calcium 9.6 mg/dl (8.4-10.2); Carbon Dioxide 30 mmol/L (22.0-30.0); Creatinine Clearance Estimated 60 mL/min (50-200); Estimated Glomerular Filt Rate 66 ml/min (>60); GFR (African American) 80 ML/MIN (>60); Globulin 3.7 g/dL (1.3-3.2); Glucose 106 mg/dl (74-100); Total Protein,Serum 7.9 g/dl (6.3-8.2)
[2021-02-22 21:17] LABS: C-Reactive Protein 113.1 mg/L (0-4)
[2021-02-22 22:00] VITALS: BP 141/81; PULSE 99; O2SAT 96
[2021-02-22 23:00] VITALS: BP 139/86; PULSE 110; O2SAT 96
--- NOTE | 2021-02-22 23:29 | PC.NURSE ---
pt assisted to bathroom and given a dt pepsi to drink
[2021-02-23] VITALS: BP 139/82; PULSE 92; O2SAT 94
[2021-02-23 00:57] LABS: Lactic Acid 0.7 mmol/L (0.7-2.1)
[2021-02-23 01:12] VITALS: BP 135/85; PULSE 85; RESP 16; TEMP 37.2; O2SAT 95
--- NOTE | 2021-02-23 01:15 | HMH.EDGENADL ---
ED Disposition Clinical Impression: Abdominal pain Qualifiers: Abdominal location: unspecified location Qualified Code(s): R10.9 - Unspecified abdominal pain Disposition: Home, Self-Care Condition on Discharge: Good Instructions: Ventral Hernia Additional Instructions: Follow up with General Surgeon Follow up with Primary Care Return to emergency room for worsening pain, bleeding, or vomiting. Prescriptions: Sulfamethoxazole/Trimethoprim [Bactrim DS tablet] 1 each PO BID 10 Days #20 tab Transmission Status: Pending to [facility] cephALEXin [Keflex 750mg Cap] 750 mg PO Q12H 10 Days #20 cap Transmission Status: Pending to [facility] Referrals: Miquel Corado MD [Primary Care Provider] - Randall Jones MD [Staff Physician] - - Critical Care Critical Care Time: No Attestation: On 02/22/21, the high probability of a clinically significant, sudden or life threatening deterioration of the following system(s) required my full and direct attention, intervention and personal management. The time I documented below is in addition to time spent performing reported procedures but includes the following listed in this critical care notation. Medical Decision Making - [place] Inquiry Pt receiving controlled substance: No Vital Signs: 02/22/21 19:00 02/22/21 20:44 02/23/21 01:12 Temperature 99.2 F 99.5 F 98.9 F Temperature Source Oral Oral Oral Pulse Rate 85 Pulse Rate [Right Brachial] 86 108 H Respiratory Rate 20 18 16 Blood Pressure 135/85 Blood Pressure [Right Arm] 143/60 H 145/68 H Blood Pressure Mean [Right Arm] 87 93 Blood Pressure Source [Right Arm] Automatic Cuff Blood Pressure Position [Right Arm] Sitting 02 Sat by Pulse Oximetry 96 95 Oxygen Delivery Method Room Air Room Air - Lab Data Lab Results 02/22/21 20:55: WBC 11.5 H, RBC 5.41 H, Hgb 15.3, Hct 47.1 H, MCV 87.1, MCH 28.3, MCHC 32.5, RDW 15.7, Plt Count 280, MPV 8.2, Neut % (Auto) 75.2, Lymph % (Auto) 17.3, [place] % (Auto) 5.9, Eos % (Auto) 1.1, Baso % (Auto) 0.5, Neut # (Auto) 8.6 H, Lymph # (Auto) 2.0, [place] # (Auto) 0.7, Eos # (Auto) 0.1, Baso # (Auto) 0.1 02/22/21 20:55: Sodium 136, Potassium 4.2, Chloride 98, Carbon Dioxide 30, Anion Gap 12.2, BUN 8, Creatinine 0.90, Estimated Creat Clear 60, Estimated GFR 66, Est GFR ( Amer) 80, Glucose 106 H, Calcium 9.6, Total Bilirubin 0.5, AST 33, ALT 25, Alkaline Phosphatase 106, C-Reactive Protein 113.1 H, Total Protein 7.9, Albumin 4.2, Globulin 3.7 H, Albumin/Globulin Ratio 1.1 02/23/21 00:40: Lactate 0.7 Result diagrams: 02/22/21 20:55 02/22/21 20:55 Orders (Tests/Meds): ED MEDICATIONS Discontinued Medications Generic Name Dose Route Start Last Admin Trade Name Freq PRN Reason Stop Dose Admin Iopamidol 75 ml 02/22/21 22:25 02/22/21 22:25 Iopamidol-370 (76%);100ml Bottle IV 02/22/21 22:26 75 ml ONCE ONE Administration Sodium Chloride 10 ml 02/22/21 22:25 02/22/21 22:25 Sodium Chloride 0.9% 10ml Syr (Rad Only) IV 02/22/21 22:26 10 ml ONCE ONE Administration Medical Decision Narrative: The patient is a 50-year-old male who presents to the emergency department with burning and erythema of left ventral hernia site. Differential gnosis includes cellulitis, abscess, strangulated hernia bowel obstruction. Given this plan to obtain CBC, CMP, lactate, CT abdomen and pelvis, CRP. Labs remarkable for elevated CRP at [address] abdomen pelvis was not concerning for intra-abdominal abscess. Lactate was normal. On inspection of the wound there is a beet red area in the skin fold with 1 area of ulceration concerning for fungal infection and bacterial infection. The skin overlying the ventral hernia is slightly erythematous which the patient reports is baseline however I still have some concern for cellulitis extending from the wound under her skin fold. Given this we will give the patient Bactrim and Keflex.
== END 2021-02-23 01:17 | disposition home or self-care (01) ==
LOC: UTC 19:02 → ER 20:40
PROVIDERS: Emergency Provider Emergency Medicine; PCP Family Medicine
DX: R10.12 Left upper quadrant pain (principal); I10 Essential (primary) hypertension; J44.9 Chronic obstructive pulmonary disease, unspecified; E03.9 Hypothyroidism, unspecified
CPT/HCPCS: 74177; 80053; 83605; 85025; 86140; 99284; Q9967

== ENCOUNTER → 2021-03-06 08:59 | Outpatient (CLI) | payer MEDICARE, OTHER, SELFPAY ==
--- NOTE | 2021-03-06 09:06 | XR_ITS ---
PROCEDURE: XR KNEE LT 4V CLINICAL INDICATION: Bilateral knee pain COMPARISON: CR [id number] KNEE-3 VIEWS-RT from 12/16/2016 CR [id number] XR knee LT 4V from 09/23/2017 CR XR KNEE RT 3V from 01/31/2021 CR XR KNEE LT 3V from 01/31/2021 FINDINGS: There [id number] osteoarthritic changes of the medial compartment and mild osteoarthritic change of the lateral compartment and patellofemoral joint. There is 7 mm lateral tibial subluxation. There is a small suprapatellar effusion suspected. No fracture or dislocation. IMPRESSION: Moderate osteoarthritic change with suspected knee joint effusion. The joint space narrowing is more apparent on the weight-bearing images compared to the previous exam. Dictated by: Wei Mendoza MD 03/06/2021 12:27 Wei Mendoza MD in [place] 03/06/2021 12:27
--- NOTE | 2021-03-06 09:06 | XR_ITS ---
PROCEDURE: XR KNEE RT 4V CLINICAL INDICATION: BL knee pain COMPARISON: CR [id number] KNEE-3 VIEWS-RT from 12/16/2016 CR [id number] XR knee LT 4V from 09/23/2017 CR XR KNEE RT 3V from 01/31/2021 CR XR KNEE LT 3V from 01/31/2021 FINDINGS: [id number] osteoarthritic changes of the medial compartment with mild osteoarthritis of the patellofemoral joint and lateral compartment. No fracture or dislocation. No lytic or blastic change. Possible small suprapatellar effusion. IMPRESSION: Jkrv-tq-[id number] osteoarthritic change overall not significantly changed from 01/31/2021. Dictated by: Wei Mendoza MD 03/06/2021 12:29 Wei Mendoza MD in [place] 03/06/2021 12:29
== END ==
PROVIDERS: PCP Family Medicine; Visit Provider Orthopaedic Surgery
DX: M25.561 Pain in right knee (principal); M25.562 Pain in left knee
CPT/HCPCS: 73564

== ENCOUNTER → 2021-04-23 08:31 | Outpatient (CLI) | payer MEDICARE, OTHER, SELFPAY ==
--- NOTE | 2021-04-23 08:31 | MR_ITS ---
PROCEDURE INFORMATION: Exam: MR Abdomen Without and With Contrast Exam date and time: 04/23/2021 8:31 AM Age: 50 years old Clinical indication: Patient HX: Abnormal CT scna 02-22-21. Spot on liver. Nausea. Sent over best images. 30ml prohance given. 20ml lot: [id number] exp: Aug 2023 10ml lot: [id number] exp: Oct 2022; Additional info: Liver lesion seen on CT TECHNIQUE: Imaging protocol: MR of the abdomen without and with intravenous contrast. Contrast material: PROHANCE; Contrast volume: 30 ml; Contrast route: IV; COMPARISON: CT ABDOMEN PELVIS W CON 02/22/2021 10:05 PM FINDINGS: Liver: The lesion seen within the right hepatic lobe on prior CT examination of 02/22/2021 appears isointense to hepatic tissue on precontrast T1 and T2 imaging. Following administration of gadolinium there is fairly homogeneous enhancement of the lesion with the degree of intensity above intensity of enhanced hepatic tissue. This persists and is greatest on the 5 minutes post injection images. Its appearance is compatible with a hemangioma. It measures 2.5 cm in diameter. Gallbladder and bile ducts: The gallbladder is surgically absent. No evidence of extrahepatic biliary dilatation. Pancreas: Unremarkable. No ductal dilation. Spleen: Unremarkable. No splenomegaly. Adrenal glands: There is a 12 mm nodule which arises from the posterior aspect of the left adrenal gland. It is isointense with the adrenal gland on T1 and T2 images. It demonstrates no appreciable enhancement. Its appearance is compatible with an adenoma of the left adrenal gland. The right adrenal gland appears normal. Kidneys and ureters: Unremarkable. No solid mass. No hydronephrosis. Stomach and bowel: There is a large ventral hernia which contains portions of the stomach, colon, small bowel, and omentum. It is to the left of midline. Its appearance is similar when compared with prior CT examination. Intraperitoneal space: No free fluid. Arteries: No abdominal aortic aneurysm. Bones/joints: Unremarkable. Soft tissues: Unremarkable. Other findings: This examination is limited due to diminished spatial resolution of resultant images due to large patient size. IMPRESSION: 1. Findings within the liver are compatible with a hemangioma of the right hepatic lobe which measures 2.5 cm in diameter. 2. There is a 12 mm nodule arising from the left adrenal gland, compatible with an adenoma. 3. Large ventral hernia to the left of midline within the abdomen, similar in appearance when compared with prior CT examination.
== END ==
PROVIDERS: PCP Family Medicine; Visit Provider Family Medicine
DX: K76.9 Liver disease, unspecified (principal)
CPT/HCPCS: 74183; A9576

== ENCOUNTER 2021-05-06 09:54 | Outpatient (RCR) | payer MEDICARE, OTHER, SELFPAY | END 2021-05-06 11:00 | disposition home or self-care (01) | LOC: PT 09:54 | PROVIDERS: PCP Family Medicine; Visit Provider Family Medicine | DX: M15.4 Erosive (osteo)arthritis (principal); M25.569 Pain in unspecified knee; E66.9 Obesity, unspecified; Z68.44 Body mass index [BMI] 60.0-69.9, adult | CPT/HCPCS: 97542 ==

== ENCOUNTER 2021-08-06 16:10 | Observation (INO) | payer MEDICARE, OTHER, SELFPAY ==
[2021-08-06 16:29] VITALS: BMI 66.3
[2021-08-06 16:31] VITALS: BP 198/74; PULSE 88; RESP 24; TEMP 36.5; O2SAT 96
[2021-08-06 18:47] LABS: Coronavirus 19, PCR Not Detected (NotDetected); Influenza A, PCR Not Detected (NotDetected); Influenza B, PCR Not Detected (NotDetected)
--- NOTE | 2021-08-06 19:16 | XR_ITS ---
PROCEDURE INFORMATION: Exam: XR Chest Exam date and time: 08/06/2021 7:16 PM Age: 51 years old Clinical indication: Patient HX: Smoker, shortness of breath, very large patient. ; Additional info: SOB TECHNIQUE: Imaging protocol: XR of the chest. Views: 1 view. COMPARISON: CR XR CHEST PORTABLE 01/10/2021 4:05 PM FINDINGS: Lungs: Examination is limited by body habitus. No definite lobar consolidation. Pleural spaces: No pneumothorax. Heart/Mediastinum: No cardiomegaly. Bones/joints: No acute abnormality. IMPRESSION: Limited examination without definite acute findings. If there is ongoing concern, cross-sectional imaging should be considered for further evaluation.
--- NOTE | 2021-08-06 19:45 | HMH.HP ---
*Admission Date: 08/06/21 *Chief complaint: dyspnea and wheezing *History of present illness: Patient is a 51-year-old white female admitted directly from my office following complaints of increased dyspnea and overt wheezing. He has a history of asthma and has been increasingly short of breath over the last few days. Patient has a history of morbid obesity, impaired mobility. She has multiple comorbid issues. Labs are pending at the time of dictation as is official x-ray report. She is however COVID negative. [facility] History Medical History: Reports:: Asthma, Chronic Obstructive Pulmonary Disease (COPD), Hyperlipidemia, Hypertension, Transient Ischemic Attacks (TIA) Denies:: Cancer, Diabetes Mellitus Type 1, Diabetes Mellitus Type 2, MRSA *Have you ever received a pneumonia vaccine?: Yes *Have you received a flu vaccine this season?: No Other Medical History: Reports: Arthritis, Hypothyroidism, Thyroid Disease Laterality Cases: Right: Arthroscopy Knee Other Surgeries: Yes: Cholecystectomy, Colonoscopy, Hernia Repair, Other Amputation: No Fractures: No - *Social History Last grade of school completed: GED Smoking Status: Current every day smoker Tobacco Type: cigarettes # Packs/Day (cigarettes): 1 Alcohol Intake: never *Occupational Status:: unemployed Housing: house Household Members: family *Travel in the last 8 weeks: None Family Hx:: No significant family history Review of Systems - Constitutional Reports fatigue - Eyes Denies change in vision - ENT Denies abnormal hearing - *Cardiovascular Reports shortness of breath - *Respiratory Reports chest congestion - *Gastrointestinal Denies abdominal pain - *Genitourinary Denies painful urination - *Musculoskeletal Reports abnormal walking, Reports joint pain, Reports limited joint movement, Reports muscle weakness - Integumentary/Breasts Denies yellowing of the skin - *Neurologic Reports abnormal walking, Reports weakness - Psychiatric Reports lack of enjoyment - Endocrine Denies cold intolerance, Denies excessive sweating - Hematologic/Lymphatic Denies easy bleeding - Allergic/Immunologic Reports wheezing Meds Home Medications Medication Instructions Recorded Confirmed Type Trazodone HCl 300 mg PO HS 11/26/20 08/06/21 History lisinopriL [Prinivil 10mg Tablet] 10 mg PO DAILY 11/26/20 08/06/21 History fluticasone fur. 200 mcg-umeclid 1 inh INHALATION DAILY 11/29/20 08/06/21 History 62.5 mcg-vilant 25 mcg inhalat.powder ropinirole 1 mg tablet 1 mg PO HS 11/29/20 08/06/21 History tramadol 50 mg tablet 50 mg PO TID PRN #90 tab 02/04/21 08/06/21 Rx gabapentin 100 mg capsule 100 mg PO TID PRN #90 cap 04/08/21 08/06/21 Rx ARIPiprazole [Aripiprazole] 15 mg PO HS 08/06/21 08/06/21 History Albuterol Sulfate [Albuterol 2 puffs INHALATION Q4-6H PRN 08/06/21 08/06/21 History Sulfate Hfa] Levothyroxine Sodium [Synthroid 300 mcg PO DAILY 08/06/21 08/06/21 History 150mcg (0.15mg) tablet] buPROPion HCL [Bupropion HCl Sr] 200 mg PO BID 08/06/21 08/06/21 History Allergies Allergy/AdvReac Type Severity Reaction Status Date / Time adhesive tape [ADHESIVE TAPE] Allergy Unknown Blister Verified 08/06/21 17:27 hydromorphone [From DILAUDID] Allergy Unknown Hypotension Verified 08/06/21 17:27 nickel [NICKEL] Allergy Unknown Blister Verified 08/06/21 17:27 Exam Vital signs and Labs for Last 24 Hours: Temp Pulse Resp BP Pulse Ox 97.7 F 88 24 198/74 H 96 08/06/21 16:31 08/06/21 16:31 08/06/21 16:31 08/06/21 16:31 08/06/21 16:31 Laboratory Results - last 24 hr 08/06/21 18:32: SARS-CoV-2 (PCR) Not detected, Influenza A Untype (PCR) Not detected, Influenza Type B (PCR) Not detected I & O for Last 24 hours: Intake & Output 08/03/21 08/04/21 08/05/21 08/06/21 23:59 23:59 23:59 23:59 Intake Total 360 / 360 Balance 360 / 360 Weight 374 lb 5 oz - Constitutional mild distress, morbidly obese, co
[2021-08-06 20:00] VITALS: BP 125/74; PULSE 80; PULSE 91; RESP 24; TEMP 36.7; O2SAT 96; O2SAT 97
[2021-08-06 20:12] LABS: Chloride 101 mmol/L (98-107); Sodium 133 mmol/L (136-145)
[2021-08-06 20:14] LABS: Lactic Acid 1.5 mmol/L (0.7-2.1)
[2021-08-06 20:15] LABS: Alanine Aminotransferase 19 U/L (12-78); Albumin Level 3.6 g/dl (3.5-5.0); Albumin/Globulin Ratio 1.1 (1.1-1.8); Alkaline Phosphatase 98 U/L (38-126); Aspartate Amino Transferase 28 U/L (14-36); Bilirubin,Total 0.3 mg/dl (0.2-1.3); Blood Urea Nitrogen 9 mg/dl (7-17); Carbon Dioxide 31 mmol/L (22.0-30.0); Creatinine Clearance Estimated 60 mL/min (50-200); Estimated Glomerular Filt Rate 65 ml/min (>60); GFR (African American) 79 ML/MIN (>60); Globulin 3.4 g/dL (1.3-3.2)
[2021-08-06 20:16] LABS: Calcium 9.1 mg/dl (8.4-10.2); Glucose 106 mg/dl (74-100)
[2021-08-06 20:36] LABS: Troponin I < 0.01 ng/ml (0.00-0.034)
[2021-08-06 21:46] LABS: ABG Base Excess 5.2 mmol/L (-2.4-2.3); ABG HCO3 30.1 mmhg (22.0-26.0); ABG Oxygen Saturation 96 % (90-100); ABG PH 7.39 mmol/L (7.35-7.45); ABG PO2 76.5 mmhg (80-100); ABG TCO2 31.7 mmhg (23-27)
[2021-08-06 21:48] LABS: Allen's Test Acceptable; Oxygen 2LPM %; Source Left Radial
[2021-08-06 21:50] LABS: ABG PCO2 50.7 mmhg (35.0-45.0)
[2021-08-06 22:50] VITALS: PULSE 91; PULSE 94; O2SAT 97
[2021-08-06 22:52] LABS: Basophils # 0.1 K/mm3 (0-0.2); Basophils % 0.9 % (0.1-2.0); Eosinophils # 0.3 K/mm3 (0.0-0.4); Eosinophils % 2.4 % (0.1-12.0); Hematocrit 48.4 % (37.0-47.0); Hemoglobin 14.9 g/dL (12.2-16.2); Lymphocytes # 2.2 K/mm3 (0.7-4.5); Lymphocytes % 18.9 % (10-50); Mean Corpuscular HGB Conc 30.7 g/dL (31.8-35.4); Mean Corpuscular Hemoglobin 28.7 pg (27.0-31.2); Mean Corpuscular Volume 93.4 fl (81-99); Mean Platelet Volume 9.5 fl (7.4-10.4); Monocytes # 0.5 K/mm3 (0.1-1.0); Monocytes % 3.8 % (1.7-9.3); Neutrophils # 8.7 K/mm3 (1.8-7.8); Platelet Count 349 K/mm3 (142-424); Red Blood Count 5.19 M/mm3 (4.20-5.40); Red Cell Distribution Width 16.2 % (11.5-17.5); White Blood Count 11.8 K/mm3 (4.8-10.8)
[2021-08-06 23:17] LABS: Troponin I < 0.01 ng/ml (0.00-0.034)
[2021-08-07] VITALS (25 sets, daily range): BP systolic 96–174; BP diastolic 45–98; PULSE 53–90; RESP 16–24; TEMP 36.6–36.8; O2SAT 91–98; BMI 66.7
--- NOTE | 2021-08-07 | IR_ITS ---
APPROVED REPORT Patient Location: Inpatient Shuttle Route Vehicle Operator: EMELY Hernandez RT (R) PROCEDURES Left heart catheterization Left ventriculogram Selective coronary angiogram INDICATION Acute coronary syndrome Informed consent was obtained prior to the procedure. COMPLICATIONS NONE Estimated Blood Loss: LESS THAN 10 ML TECHNIQUE One percent lidocaine used to anesthetize the right anterior aspect of the wrist. The right radial artery was accessed via the Seldinger technique. A 6 [place] sheath was placed in the right radial artery. 2.5 mg of verapamil, 800 mcg of nitroglycerin, 1mg Lidocaine and 5000 U Heparin were given through the arterial sheath. The Papa catheter was also used to perform left heart catheterization, left ventriculogram and selective coronary angiogram. At the end of the procedure the sheath was removed good hemostasis was achieved using Traclet band, patient was transferred to the postop holding area in stable condition. ANGIOGRAPHIC RESULTS The left main artery Normal The left anterior descending artery Normal The circumflex artery Dominant normal The right coronary artery Normal The YANES ventriculogram reveals Normal 65% The left ventricular end-diastolic pressure 15 mmHg IMPRESSION Normal coronary arteries Normal ejection fraction Borderline LVEDP PLAN 1. Medical management evaluation of noncardiac symptoms Electronically signed by : Vahid David MD 08/07/2021 14:48:13
[2021-08-07 02:38] LABS: Troponin I < 0.01 ng/ml (0.00-0.034)
[2021-08-07 06:49] LABS: Alanine Aminotransferase 23 U/L (12-78); Albumin Level 3.7 g/dl (3.5-5.0); Albumin/Globulin Ratio 1.1 (1.1-1.8); Alkaline Phosphatase 97 U/L (38-126); Anion Gap 9.6 mEq/L (5-15); Aspartate Amino Transferase 28 U/L (14-36); Bilirubin,Total 0.2 mg/dl (0.2-1.3); Blood Urea Nitrogen 11 mg/dl (7-17); Calcium 9.2 mg/dl (8.4-10.2); Carbon Dioxide 29 mmol/L (22.0-30.0); Chloride 98 mmol/L (98-107); Creatinine Clearance Estimated 74 mL/min (50-200); Estimated Glomerular Filt Rate 88 ml/min (>60); GFR (African American) 106 ML/MIN (>60); Globulin 3.4 g/dL (1.3-3.2); Glucose 159 mg/dl (74-100); Potassium 4.6 mmoL/L (3.5-5.1); Sodium 132 mmol/L (136-145); Total Protein,Serum 7.1 g/dl (6.3-8.2)
[2021-08-07 06:59] LABS: Basophils # 0.1 K/mm3 (0-0.2); Basophils % 0.6 % (0.1-2.0); Eosinophils # 0.1 K/mm3 (0.0-0.4); Eosinophils % 0.4 % (0.1-12.0); Hematocrit 47.2 % (37.0-47.0); Hemoglobin 14.3 g/dL (12.2-16.2); Lymphocytes # 1.1 K/mm3 (0.7-4.5); Lymphocytes % 9.8 % (10-50); Mean Corpuscular HGB Conc 30.4 g/dL (31.8-35.4); Mean Corpuscular Hemoglobin 28.7 pg (27.0-31.2); Mean Corpuscular Volume 94.5 fl (81-99); Mean Platelet Volume 8.8 fl (7.4-10.4); Monocytes # 0.1 K/mm3 (0.1-1.0); Monocytes % 1.1 % (1.7-9.3); Neutrophils # 9.5 K/mm3 (1.8-7.8); Platelet Count 324 K/mm3 (142-424); Red Blood Count 4.99 M/mm3 (4.20-5.40); Red Cell Distribution Width 16.3 % (11.5-17.5); White Blood Count 10.8 K/mm3 (4.8-10.8)
[2021-08-07 07:14] LABS: MANUAL DIFFERENTIAL MANUAL DIFFERENTIAL (MANUAL DIFF)
--- NOTE | 2021-08-07 07:28 | P.CONPHA_ITS ---
[facility] Pharmacy VTE Monitoring - Patient Demographics Admission date: 08/07/21 Report Date: 08/07/21 Time: 07:28 Allergies/Adverse Reactions: Patient Allergies adhesive tape [ADHESIVE TAPE] Allergy (Unknown, Verified 08/06/21 17:27) Blister hydromorphone [From DILAUDID] Allergy (Unknown, Verified 08/06/21 17:27) Hypotension nickel [NICKEL] Allergy (Unknown, Verified 08/06/21 17:27) Blister Height: 1.6 m Weight: 170.868 kg Patient Problems: Current Active Problems (This Medical Record has been edited. Action required.) Generalized weakness (Acute) Hypothyroidism (Acute) Knee pain (Acute) Incisional hernia (Acute) Ventral hernia (Acute) Dyspnea (Acute) COPD (chronic obstructive pulmonary disease) (Acute) COPD exacerbation (Acute) HTN (hypertension) (Acute) Obesity (Acute) - VTE Risk Labs: VTE Related Lab Results Hgb 14.3 g/dL (12.2-16.2) 08/07/21 06:13 Hct 47.2 % (37.0-47.0) H 08/07/21 06:13 Plt Count 324 K/mm3 (142-424) 08/07/21 06:13 BUN 11 mg/dl (7-17) 08/07/21 06:13 Creatinine 0.70 mg/dl (0.52-1.04) D 08/07/21 06:13 Estimated Creat Clear 74 mL/min (50-200) 08/07/21 06:13 Was VTE Risk Assessment Performed: Yes VTE Risk Level: Low Risk Clinical Trial Participant: No - Prophylaxis VTE Prophylaxis Ordered?: Yes Types of VTE Prophylaxis: TEDS Knee High
--- NOTE | 2021-08-07 09:14 | HMH.PHAINT ---
VERIFIED HOME MEDICATION WITH LIST FROM PHARMACY
--- NOTE | 2021-08-07 09:22 | HMH.CNCARD ---
History of Present Illness Consult date: 08/07/21 Requesting physician: Nishant Mcarthur Consult reason: chest pain Chief complaint: chest pain, SOA Additional Medical History:: 1. Hypertension A. Echo, 05/2020, mild concentric LVH with normal LV size and function with EF of 55%. Mild RV enlargement with normal contractility. 2. Obesity 3. Tobacco use, 1 pack/day A. COPD and asthma 4. Prior partial colectomy without colostomy 5. Family history of heart disease in her older and younger sisters History of present illness: 51-year-old white female admitted for worsening shortness of breath over the last few weeks. Patient states she is unable to walk from 1 room to the next without having substernal chest pressure and shortness of breath that resolves with rest. She is even having episodes of discomfort that wake her from sleep. Shortness of breath is limiting to the point that she sleeps in a recliner. She does continue to smoke and has a family history of heart disease. Chest x-ray shows no evidence of acute process. Troponins were normal x3. [facility] History Medical History: Reports:: Asthma, Chronic Obstructive Pulmonary Disease (COPD), Hyperlipidemia, Hypertension, Transient Ischemic Attacks (TIA) Denies:: Cancer, Diabetes Mellitus Type 1, Diabetes Mellitus Type 2, MRSA *Have you ever received a pneumonia vaccine?: Yes *Have you received a flu vaccine this season?: No Other Medical History: Reports: Arthritis, Hypothyroidism, Thyroid Disease Laterality Cases: Right: Arthroscopy Knee Other Surgeries: Yes: Cholecystectomy, Colonoscopy, Hernia Repair, Other Amputation: No Fractures: No - *Social History Last grade of school completed: GED Smoking Status: Current every day smoker Tobacco Type: cigarettes # Packs/Day (cigarettes): 1 Alcohol Intake: never *Occupational Status:: unemployed Housing: house Household Members: family *Travel in the last 8 weeks: None Family Hx:: No significant family history Meds Home Medications Medication Instructions Recorded Confirmed Type Trazodone HCl 150 mg PO BID 11/26/20 08/07/21 History lisinopriL [Prinivil 10mg Tablet] 10 mg PO DAILY 11/26/20 08/06/21 History fluticasone fur. 200 mcg-umeclid 1 inh INHALATION DAILY 11/29/20 08/06/21 History 62.5 mcg-vilant 25 mcg inhalat.powder ropinirole 1 mg tablet 1 mg PO HS 11/29/20 08/06/21 History tramadol 50 mg tablet 50 mg PO TID PRN #90 tab 02/04/21 08/06/21 Rx gabapentin 100 mg capsule 100 mg PO TID PRN #90 cap 04/08/21 08/06/21 Rx ARIPiprazole [Aripiprazole] 15 mg PO HS 08/06/21 08/06/21 History Albuterol Sulfate [Albuterol 2 puffs INHALATION Q4-6H PRN 08/06/21 08/06/21 History Sulfate Hfa] Levothyroxine Sodium [Synthroid 300 mcg PO DAILY 08/06/21 08/06/21 History 150mcg (0.15mg) tablet] buPROPion HCL [Bupropion HCl Sr] 400 mg PO DAILY 08/06/21 08/07/21 History Allergies Allergy/AdvReac Type Severity Reaction Status Date / Time adhesive tape [ADHESIVE TAPE] Allergy Unknown Blister Verified 08/06/21 17:27 hydromorphone [From DILAUDID] Allergy Unknown Hypotension Verified 08/06/21 17:27 nickel [NICKEL] Allergy Unknown Blister Verified 08/06/21 17:27 Exam Vital signs and Labs for Last 24 Hours: Temp Pulse Resp BP Pulse Ox 98.1 F 76 19 117/45 L 91 L 08/07/21 08:00 08/07/21 08:00 08/07/21 08:00 08/07/21 08:00 08/07/21 08:00 Laboratory Results - last 24 hr 08/06/21 18:02: Specimen Source Left radial, O2 % 2lpm, ABG pH 7.39, ABG pCO2 50.7 H, ABG pO2 76.5 L, ABG HCO3 30.1 H, ABG Total CO2 31.7 H, ABG O2 Saturation 96, ABG Base Excess 5.2 H, Wei Test Acceptable 08/06/21 18:32: SARS-CoV-2 (PCR) Not detected, Influenza A Untype (PCR) Not detected, Influenza Type B (PCR) Not detected 08/06/21 19:19: Troponin I < 0.01 08/06/21 19:19: WBC 11.8 H, RBC 5.19, Hgb 14.9, Hct 48.4 H, MCV 93.4, MCH 28.7, MCHC 30.7 L, RDW 16.2, Plt Count 349, MPV 9.5, Neut % (Auto) 74.0, Lymph % (Auto) 18.9, [place] % (Auto) 3.8,
[2021-08-07 09:24] LABS: Eosinophils % 1 % (0-3); Lymphocytes % 9 % (10-50); Monocytes % 1 % (2-9); Neutrophils % 88 % (42-76); Platelet Estimate Normal; RBC Morphology Normal; Total Cells Counted 100
--- NOTE | 2021-08-07 09:44 | CA_ITS ---
APPROVED REPORT EXAM: Comprehensive 2D, Doppler, and color-flow Echocardiogram Gunnery/Ordnance Officer: Shobha Patino RT(R) Ht: 5 ft 3 in Wt: 374lbs BSA: 2.52 BP: 117/45 mmHg Indications: CP, COPD, smoker, HTN, SOB, morbid obesity, hyperlipidemia, family history of HD, TIA, unstable angina M-Mode Dimensions RVDd 1.74 cm (0.9-2.6) LA Diam 2.65 cm (1.9-4.0) LVDd 4.37 cm (3.5-5.7) Ao Diam 3.05 cm (2.0-3.7) LVDs 3.30 cm (3.5-5.7) IVSd 1.03 cm (0.6-1.1) PWd 0.98 cm (0.6-1.1) EF (Teich) 48.90% FS 24.50% EDV (Teich) 86.30 mL ESV (Teich) 44.10 mL LV Diastology E Decel Time 213.00 (160-240 msec) E/A Ratio 1.1 MED E' 6.10 (< 7 cm/sec) E'/MED E' Ratio 15.52 (>14) LAT E' 13.60 (<10 cm/sec) E/LAT E' Ratio 6.96 (>14) Mitral Valve MV E Max Marques. 95.00 (40-130 cm/s) MV A Velocity 84.00 (40-130 cm/s) E/A Ratio 1.13 MV Decel. Time 213.00 (160-240 ms) MV PHT 62.00 ms Tricuspid Valve TR P. Velocity 234.00 cm/s RAP Estimate 15.00 mmHg RVSP 36.90 mmHg Left Ventricle Technically difficult study because of the patient factors and poor acoustic windows. Left atrium is mildly enlarged, left ventricle is normal size, mild concentric left ventricular hypertrophy, visually estimated ejection fraction 55% with no regional wall motion abnormality, diastolic parameters are inconclusive. Right Ventricle Right atrium and right ventricle mildly enlarged with normal contractility. Aortic Valve Aortic valve is minimally thickened and fibrosed, there is no aortic stenosis or aortic insufficiency. Mitral Valve Mitral valve is grossly normal, there is trace mitral regurgitation. Tricuspid Valve Tricuspid valve grossly normal, there is trace tricuspid regurgitation, calculated right ventricular systolic pressure 37 mmHg. Pulmonic Valve Pulmonic valve is poorly visualized. Great Vessels Aortic root is normal size. Inferior vena cava is poorly visualized. Pericardium No significant pericardial effusion noted. Conclusion 1. Mild biatrial enlargement, normal left ventricular size, mild concentric left ventricular hypertrophy, visually estimated ejection fraction 55% with no regional wall motion abnormality, diastolic parameters are inconclusive. 2. Mildly enlarged right ventricle with normal contractility. 3. Trace mitral and tricuspid regurgitation, calculated right ventricular systolic pressure 37 mmHg. 4. No significant pericardial effusion noted. 5. Inferior vena cava is poorly visualized. Electronically signed by : Yury Tim MD 08/07/2021 19:42:50
--- NOTE | 2021-08-07 09:52 | HMH.PULMCON ---
*Admission Date: 08/07/21 [facility] History Medical History: Reports:: Asthma, Chronic Obstructive Pulmonary Disease (COPD), Hyperlipidemia, Hypertension, Transient Ischemic Attacks (TIA) Denies:: Cancer, Diabetes Mellitus Type 1, Diabetes Mellitus Type 2, MRSA *Have you ever received a pneumonia vaccine?: Yes *Have you received a flu vaccine this season?: No Other Medical History: Reports: Arthritis, Hypothyroidism, Thyroid Disease Laterality Cases: Right: Arthroscopy Knee Other Surgeries: Yes: Cholecystectomy, Colonoscopy, Hernia Repair, Other Amputation: No Fractures: No - *Social History Last grade of school completed: GED Smoking Status: Current every day smoker Tobacco Type: cigarettes # Packs/Day (cigarettes): 1 Alcohol Intake: never *Occupational Status:: unemployed Housing: house Household Members: family *Travel in the last 8 weeks: None Family Hx:: No significant family history ROS - Cons Reports fatigue, Reports fever(s) - ENT Denies bleeding gums - Card Reports chest pain, Reports shortness of breath, Reports shortness of breath with activity, Reports leg swelling - Resp Respiratory: Reports chest congestion, Reports cough, Denies excessive phlegm production, Denies coughing up blood, Reports cough with sputum production, Reports wheezing - GI Gastrointestingal: Denies: abdominal pain - Psych Denies thoughts of hurting/killing others, Denies thoughts of hurting/killing yourself Meds Home Medications Medication Instructions Recorded Confirmed Type Trazodone HCl 150 mg PO BID 11/26/20 08/07/21 History lisinopriL [Prinivil 10mg Tablet] 10 mg PO DAILY 11/26/20 08/06/21 History fluticasone fur. 200 mcg-umeclid 1 inh INHALATION DAILY 11/29/20 08/06/21 History 62.5 mcg-vilant 25 mcg inhalat.powder ropinirole 1 mg tablet 1 mg PO HS 11/29/20 08/06/21 History tramadol 50 mg tablet 50 mg PO TID PRN #90 tab 02/04/21 08/06/21 Rx gabapentin 100 mg capsule 100 mg PO TID PRN #90 cap 04/08/21 08/06/21 Rx ARIPiprazole [Aripiprazole] 15 mg PO HS 08/06/21 08/06/21 History Albuterol Sulfate [Albuterol 2 puffs INHALATION Q4-6H PRN 08/06/21 08/06/21 History Sulfate Hfa] Levothyroxine Sodium [Synthroid 300 mcg PO DAILY 08/06/21 08/06/21 History 150mcg (0.15mg) tablet] buPROPion HCL [Bupropion HCl Sr] 400 mg PO DAILY 08/06/21 08/07/21 History Allergies Allergy/AdvReac Type Severity Reaction Status Date / Time adhesive tape [ADHESIVE TAPE] Allergy Unknown Blister Verified 08/06/21 17:27 hydromorphone [From DILAUDID] Allergy Unknown Hypotension Verified 08/06/21 17:27 nickel [NICKEL] Allergy Unknown Blister Verified 08/06/21 17:27 Exam - Constitutional Constitutional:: Present: no acute distress, comfortable - HENMT Exam HENMT: Present: normocephalic, atraumatic - Eye Exam Eyes:: Present: normal appearance both eyes and related structures - Neck Exam Neck:: Present: normal visual inspection - Respiratory Exam Respiratory:: Present: able to speak in complete sentences, no respiratory distress, decreased breath sounds, wheezing - Cardiovascular Exam Cardiac:: Present: S1, S2 - GI Exam GI:: Present: soft, obese - Skin Exam Skin: Present: warm, rash - Neurological Exam Neurological: Present: alert, awake, normal cognition - Extremities Exam Extremities: Present: no cyanosis, no clubbing, edema Internal Medicine - CN: Reslt - Labs CBC & Chem 7: 08/07/21 06:13 08/07/21 06:13 Labs: Short CBC 08/06/21 08/07/21 Range/Units 19:19 06:13 WBC 11.8 H 10.8 (4.8-10.8) K/mm3 Hgb 14.9 14.3 (12.2-16.2) g/dL Hct 48.4 H 47.2 H (37.0-47.0) % Plt Count 349 324 (142-424) K/mm3 BMP 08/06/21 08/07/21 19:19 06:13 Sodium 133 L 132 L Potassium 4.0 4.6 Chloride 101 98 Carbon Dioxide 31 H 29 BUN 9 11 Creatinine 0.90 0.70 D Glucose 106 H 159 H D Calcium 9.1 9.2 Cardiac Enzymes 01/18/22 01/18/22 01/19/22 Range/Units 19:19 22:30 01:3
--- NOTE | 2021-08-07 10:07 | XR_ITS ---
FINAL REPORT CLINICAL HISTORY: PNM FINDINGS: Two views of the chest were obtained. The heart size and pulmonary vascularity are within normal limits. The mediastinum is normal. No acute pulmonary abnormality is identified. There is no pneumothorax. There are moderate degenerative changes of the thoracic spine. IMPRESSION: No acute cardiopulmonary process. Reviewed, Interpreted and Dictated by Daniel Rivers III, MD Transcribed by Mikayla Beebe Authenticated by Daniel Rivers III, MD on 08/07/2021 04:33:47 PM [facility]
--- NOTE | 2021-08-07 10:33 | HMH.ACPN2 ---
Internal Medicine - PN: Subj *Date: 08/07/21 *Time: 08:15 Interval history: pt states sob with walking and worsting over the last month Exam Vital signs and Labs for Last 24 Hours: Temp Pulse Resp BP Pulse Ox 98.1 F 68 19 117/45 L 93 L 08/07/21 08:00 08/07/21 09:35 08/07/21 08:00 08/07/21 08:00 08/07/21 09:35 Laboratory Results - last 24 hr 08/06/21 18:02: Specimen Source Left radial, O2 % 2lpm, ABG pH 7.39, ABG pCO2 50.7 H, ABG pO2 76.5 L, ABG HCO3 30.1 H, ABG Total CO2 31.7 H, ABG O2 Saturation 96, ABG Base Excess 5.2 H, Wei Test Acceptable 08/06/21 18:32: SARS-CoV-2 (PCR) Not detected, Influenza A Untype (PCR) Not detected, Influenza Type B (PCR) Not detected 08/06/21 19:19: Troponin I < 0.01 08/06/21 19:19: WBC 11.8 H, RBC 5.19, Hgb 14.9, Hct 48.4 H, MCV 93.4, MCH 28.7, MCHC 30.7 L, RDW 16.2, Plt Count 349, MPV 9.5, Neut % (Auto) 74.0, Lymph % (Auto) 18.9, [place] % (Auto) 3.8, Eos % (Auto) 2.4, Baso % (Auto) 0.9, Neut # (Auto) 8.7 H, Lymph # (Auto) 2.2, [place] # (Auto) 0.5, Eos # (Auto) 0.3, Baso # (Auto) 0.1 08/06/21 19:19: Sodium 133 L, Potassium 4.0, Chloride 101, Carbon Dioxide 31 H, Anion Gap 5.0, BUN 9, Creatinine 0.90, Estimated Creat Clear 60, Estimated GFR 65, Est GFR ( Amer) 79, Glucose 106 H, Calcium 9.1, Total Bilirubin 0.3, AST 28, ALT 19, Alkaline Phosphatase 98, Total Protein 7.0, Albumin 3.6, Globulin 3.4 H, Albumin/Globulin Ratio 1.1 08/06/21 19:19: Lactate 1.5 08/06/21 22:30: Troponin I < 0.01 08/07/21 01:30: Troponin I < 0.01 08/07/21 06:13: TSH 12.00 H 08/07/21 06:13: WBC 10.8, RBC 4.99, Hgb 14.3, Hct 47.2 H, MCV 94.5, MCH 28.7, MCHC 30.4 L, RDW 16.3, Plt Count 324, MPV 8.8, Neut % (Auto) 88.0 H, Lymph % (Auto) 9.8 L, [place] % (Auto) 1.1 L, Eos % (Auto) 0.4, Baso % (Auto) 0.6, Neut # (Auto) 9.5 H, Lymph # (Auto) 1.1, [place] # (Auto) 0.1, Eos # (Auto) 0.1, Baso # (Auto) 0.1, Total Counted 100, Neutrophils % (Manual) 88 H, Band Neutrophils % 1.0, Lymphocytes % (Manual) 9 L, Monocytes % (Manual) 1 L, Eosinophils % (Manual) 1, Platelet Estimate Normal, RBC Morphology Normal 08/07/21 06:13: Sodium 132 L, Potassium 4.6, Chloride 98, Carbon Dioxide 29, Anion Gap 9.6, BUN 11, Creatinine 0.70 D, Estimated Creat Clear 74, Estimated GFR 88, Est GFR ( Amer) 106 D, Glucose 159 H D, Calcium 9.2, Total Bilirubin 0.2, AST 28, ALT 23, Alkaline Phosphatase 97, Total Protein 7.1, Albumin 3.7, Globulin 3.4 H, Albumin/Globulin Ratio 1.1 08/07/21 06:13: Hemoglobin A1c 6.0 I & O for Last 24 hours: Intake & Output 08/04/21 08/05/21 08/06/21 08/07/21 11:59 11:59 11:59 11:59 Intake Total 840 / 840 Balance 840 / 840 Weight 376 lb 11.2 oz - Constitutional no acute distress, obese - *Routine HEENT Exam Head: Present: normocephalic Eye: Present: PERRL ENT: Present: mucous membranes moist - *Routine Neck Exam Present: supple. Absent: lymphadenopathy - *Routine Respiratory Exam Present: CTA bilaterally - *Routine Cardiovascular Exam Present: RRR - *Routine Abdominal Exam Present: soft, normoactive bowel sounds. Absent: tenderness - *Routine Extremities Exam Absent: cyanosis, clubbing, edema - *Routine Skin Exam Present: warm. Absent: rash - *Routine Neurological Exam Present: alert, oriented X3 Assessment and Plan (1) COPD (chronic obstructive pulmonary disease) Status: Acute Qualifiers: COPD type: unspecified COPD Qualified Code(s): J44.9 - Chronic obstructive pulmonary disease, unspecified Category: Medical Code(s): J44.9 - Chronic obstructive pulmonary disease, unspecified (2) COPD exacerbation Status: Acute Category: Medical Code(s): J44.1 - Chronic obstructive pulmonary disease with (acute) exacerbation (3) Dyspnea Status: Acute Qualifiers: Dyspnea type: unspecified Qualified Code(s): R06.00 - Dyspnea, unspecified Category: Medical Code(s): R06.00 - Dyspnea, unspecified (4) Generalized weakness Status: Acute Category: M
--- NOTE | 2021-08-07 10:42 | ECG_ITS ---
APPROVED REPORT Exam: Resting ECG HR:77 bpm ECG Measurements Heart Rate 77 AXES TX 153 P 68 QRSd 151 QRS -34 QT 425 T 12 QTc 457 Conclusion SINUS RHYTHM LEFT AXIS DEVIATION [QRS AXIS < -30] RIGHT BUNDLE BRANCH BLOCK [120+ ms QRS DURATION, UPRIGHT V1, 40+ ms S IN I/aVL/V4/V5/V6] POSSIBLE ANTERIOR MYOCARDIAL INFARCTION , PROBABLY OLD [30 ms Q WAVE IN V3/V4, OR R < 0.2 mV IN V4] ABNORMAL ECG UNCONFIRMED REPORT Electronically signed by : Fabrizio Rosales MD 08/07/2021 22:20:19
[2021-08-07 15:08] LABS: CATHL Activated Clotting Time 349 SEC (74-125)
[2021-08-08] VITALS: BP 110/55; PULSE 70; PULSE 90; RESP 16; TEMP 36.4; O2SAT 94
[2021-08-08 04:00] VITALS: BP 110/55; PULSE 70; RESP 18; TEMP 36.4; O2SAT 94
[2021-08-08 05:00] VITALS: BMI 68.3
[2021-08-08 06:23] VITALS: PULSE 69; PULSE 71; O2SAT 98
--- NOTE | 2021-08-08 07:50 | P.PN_ITS ---
Subjective Date: 08/08/21 Time: 07:50 Principal diagnosis: SOA Interval history: 51 yo WF in bed in NAD. Feeling better. [facility] results reviewed. Exam Vital signs and Labs for Last 24 Hours: Temp Pulse Resp BP Pulse Ox 97.5 F L 69 16 110/55 L 98 08/08/21 00:00 08/08/21 06:23 08/08/21 00:00 08/08/21 00:00 08/08/21 06:23 Laboratory Results - last 24 hr 08/07/21 06:13: Total Counted 100, Neutrophils % (Manual) 88 H, Band Neutrophils % 1.0, Lymphocytes % (Manual) 9 L, Monocytes % (Manual) 1 L, Eosinophils % (Manual) 1, Platelet Estimate Normal, RBC Morphology Normal 08/07/21 06:13: Hemoglobin A1c 6.0 08/07/21 13:42: Activated Clotting Time 349 H* I & O for Last 24 hours: Intake & Output 08/05/21 08/06/21 08/07/21 08/08/21 11:59 11:59 11:59 11:59 Intake Total 840 / 840 360 / 360 Balance 840 / 840 360 / 360 Weight 376 lb 11.2 oz 385 lb 9.416 oz - *Routine Respiratory Exam Present: CTA bilaterally - *Routine Cardiovascular Exam Present: RRR Progress Note: A&P (1) COPD (chronic obstructive pulmonary disease) Status: Acute (2) COPD exacerbation Status: Acute (3) Dyspnea Status: Acute (4) Generalized weakness Status: Acute (5) HTN (hypertension) Status: Acute (6) Hypothyroidism Status: Acute (7) Incisional hernia Problem details: Complex large recurrent abdominal wall hernia (essentially with loss of domain) and focal skin ulceration Status: Acute (8) Knee pain Status: Acute (9) Obesity Status: Acute (10) Ventral hernia Status: Acute Assessment and Plan for All Diagnoses:: 1. SOA, felt to be non-cardiac with LHC results yesterday showing normal coronaries with only mild elevation of LVEDP. Use lasix PRN. 2. COPD/ASthma, per Pulmonary. 3. HONEY, pt to resume CPAP 4. Obesity, wt loss encouraged. 5. HTN, controlled on lisinopril. Follow up in one week with BMP. OK for discharge from Cardiology standpoint.
[2021-08-08 08:00] VITALS: BP 117/60; PULSE 81; RESP 21; TEMP 36.6; O2SAT 94
[2021-08-08 08:11] LABS: Basophils # 0.1 K/mm3 (0-0.2); Basophils % 0.6 % (0.1-2.0); Eosinophils # 0.1 K/mm3 (0.0-0.4); Hemoglobin 13.5 g/dL (12.2-16.2); Lymphocytes # 2.3 K/mm3 (0.7-4.5); Lymphocytes % 24.2 % (10-50); Mean Corpuscular HGB Conc 30.6 g/dL (31.8-35.4); Mean Corpuscular Hemoglobin 28.9 pg (27.0-31.2); Mean Corpuscular Volume 94.4 fl (81-99); Mean Platelet Volume 8.6 fl (7.4-10.4); Monocytes # 0.4 K/mm3 (0.1-1.0); Monocytes % 4.4 % (1.7-9.3); Neutrophils # 6.7 K/mm3 (1.8-7.8); Neutrophils % 69.8 % (37.0-80.0); Platelet Count 303 K/mm3 (142-424); Red Blood Count 4.66 M/mm3 (4.20-5.40); Red Cell Distribution Width 16.2 % (11.5-17.5); White Blood Count 9.6 K/mm3 (4.8-10.8)
[2021-08-08 08:16] LABS: Anion Gap 6.3 mEq/L (5-15); Blood Urea Nitrogen 14 mg/dl (7-17); Calcium 8.7 mg/dl (8.4-10.2); Carbon Dioxide 34 mmol/L (22.0-30.0); Chloride 98 mmol/L (98-107); Creatinine Clearance Estimated 64 mL/min (50-200); Estimated Glomerular Filt Rate 75 ml/min (>60); GFR (African American) 91 ML/MIN (>60); Glucose 176 mg/dl (74-100); Potassium 4.3 mmoL/L (3.5-5.1); Sodium 134 mmol/L (136-145)
--- NOTE | 2021-08-08 09:22 | SW/DCPLANNER ---
The plan for this patient is to discharge home today. Patient RA is 94%: patient will not need home O2 at discharge. Patient is aware of discharge plan.
--- NOTE | 2021-08-08 09:31 | HMH.PULMPN ---
Internal Medicine - PN: Subj *Date: 08/08/21 *Time: 11:36 Interval history: No acute respiratory events overnight. Exam - Constitutional Constitutional:: Present: no acute distress, comfortable - HENMT Exam HENMT: Present: normocephalic, atraumatic - Eye Exam Eyes:: Present: normal appearance both eyes and related structures - Neck Exam Neck:: Present: normal visual inspection - Respiratory Exam Respiratory:: Present: able to speak in complete sentences, no respiratory distress. Absent: wheezing - Cardiovascular Exam Cardiac:: Present: S1, S2 - GI Exam GI:: Present: soft, obese - Skin Exam Skin: Present: warm - Neurological Exam Neurological: Present: alert, awake, normal cognition - Extremities Exam Extremities: Present: no cyanosis, no clubbing - Psychiatric Exam Psychiatric: Present: normal affect Assessment and Plan (1) COPD (chronic obstructive pulmonary disease) Status: Acute Qualifiers: COPD type: unspecified COPD Qualified Code(s): J44.9 - Chronic obstructive pulmonary disease, unspecified Category: Medical Code(s): J44.9 - Chronic obstructive pulmonary disease, unspecified (2) COPD exacerbation Status: Acute Category: Medical Code(s): J44.1 - Chronic obstructive pulmonary disease with (acute) exacerbation (3) Dyspnea Status: Acute Qualifiers: Dyspnea type: unspecified Qualified Code(s): R06.00 - Dyspnea, unspecified Category: Medical Code(s): R06.00 - Dyspnea, unspecified (4) Generalized weakness Status: Acute Category: Medical Code(s): R53.1 - Weakness (5) HTN (hypertension) Status: Acute Qualifiers: Hypertension type: essential hypertension Category: Medical Code(s): I10 - Essential (primary) hypertension (6) Hypothyroidism Status: Acute Qualifiers: Hypothyroidism type: unspecified Qualified Code(s): E03.9 - Hypothyroidism, unspecified Category: Medical Code(s): E03.9 - Hypothyroidism, unspecified (7) Incisional hernia Problem details: Complex large recurrent abdominal wall hernia (essentially with loss of domain) and focal skin ulceration Status: Acute Qualifiers: Obstruction and gangrene presence: without obstruction or gangrene Qualified Code(s): K43.2 - Incisional hernia without obstruction or gangrene Category: Medical Code(s): K43.2 - Incisional hernia without obstruction or gangrene (8) Knee pain Status: Acute Qualifiers: Chronicity: unspecified Laterality: left Qualified Code(s): M25.562 - Pain in left knee Category: Medical Code(s): M25.569 - Pain in unspecified knee (9) Obesity Status: Acute Qualifiers: Obesity type: due to excess calories Obesity classification: adult class 3 (BMI >= 40) Serious obesity comorbidity presence: with serious comorbidity Body mass index: BMI 60.0-69.9 Qualified Code(s): E66.01 - Morbid (severe) obesity due to excess calories; Z68.44 - Body mass index [BMI] 60.0-69.9, adult Category: Medical Code(s): E66.9 - Obesity, unspecified (10) Ventral hernia Status: Acute Qualifiers: Obstruction and gangrene presence: without obstruction or gangrene Qualified Code(s): K43.9 - Ventral hernia without obstruction or gangrene Category: Medical Code(s): K43.9 - Ventral hernia without obstruction or gangrene - Assessment and plan all Dx Assessment and Plan for all problems:: #COPD exacerbation: #Community-acquired pneumonia: Current smoker,greater than [id number] smoking history, carries a diagnosis of COPD and Asthma , last seen in pulmonary clinic in May 2020. History of sleep apnea, not using her CPAP for the last 1 month. Not following with sleep clinic. Not using oxygen with the CPAP machine. Presented with worsening respiratory distress wheezing and self-reported hypoxia episodes and chest discomfort. Denies any worsening cough or any productive phlegm. Interval update: Chest x-ray KEVON wilkerson
[2021-08-08 09:35] VITALS: PULSE 67; PULSE 71; O2SAT 91
--- NOTE | 2021-08-08 10:41 | HMH.DCSUM ---
General - General Admission date:: 08/06/21 Discharge date: 08/08/21 HPI HPI: Patient is a 51-year-old white female admitted directly from my office following complaints of increased dyspnea and overt wheezing. He has a history of asthma and has been increasingly short of breath over the last few days. Patient has a history of morbid obesity, impaired mobility. She has multiple comorbid issues. Labs are pending at the time of dictation as is official x-ray report. She is however COVID negative. Hospital Course Hospital Course: 08/07/21 CXR: FINDINGS: Two views of the chest were obtained. The heart size and pulmonary vascularity are within normal limits. The mediastinum is normal. No acute pulmonary abnormality is identified. There is no pneumothorax. There are moderate degenerative changes of the thoracic spine. IMPRESSION: No acute cardiopulmonary process. 08/07/21 ECHO: Conclusion 1. Mild biatrial enlargement, normal left ventricular size, mild concentric left ventricular hypertrophy, visually estimated ejection fraction 55% with no regional wall motion abnormality, diastolic parameters are inconclusive. 2. Mildly enlarged right ventricle with normal contractility. 3. Trace mitral and tricuspid regurgitation, calculated right ventricular systolic pressure 37 mmHg. 4. No significant pericardial effusion noted. 5. Inferior vena cava is poorly visualized. Electronically signed by : Yury Tim MD 08/07/21 cardiac catheterization: ANGIOGRAPHIC RESULTS The left main artery Normal The left anterior descending artery Normal The circumflex artery Dominant normal The right coronary artery Normal The YANES ventriculogram reveals Normal 65% The left ventricular end-diastolic pressure 15 mmHg IMPRESSION Normal coronary arteries Normal ejection fraction Borderline LVEDP PLAN 1. Medical management evaluation of noncardiac symptoms Electronically signed by : Vahid David MD 1. SOA, felt to be non-cardiac with [facility] results yesterday showing normal coronaries with only mild elevation of LVEDP. Use lasix PRN. 2. COPD/ASthma, per Pulmonary. 3. HONEY, pt to resume CPAP 4. Obesity, wt loss encouraged. 5. HTN, controlled on lisinopril. Follow up in one week with BMP. OK for discharge from Cardiology standpoint. Pulmonology has seen: Plan: -Continue oxygen supplementation as needed to maintain O2 saturation goal of 88% and above -Continue ceftriaxone & azithromycin for community-acquired pneumonia, can be weaned to levofloxacin to complete a total of 5-day course on discharge. -Continue DuoNebs every 4 hours scheduled along with budesonide every 12 schedule, can be discharged on triple inhaler therapy. -Prednisone 40 mg daily to complete a total of 5-day course. -Follow-up with cardiology recommendations #Thank you for involving pulmonary in this patient care. We will follow the patient in pulmonary clinic in 4 to 6 weeks with a full PFT and a 6-minute walk testing. #Please schedule an outpatient sleep clinic appointment. Patient caries a prior diagnosis sleep apnea however not using her positive pressure ventilation. 51-year-old female patient sitting up in bed resting quietly, she denies any chest pain or shortness of breath during the night. Current oxygenation 95% on 2 L per nasal cannula. Discussed discharge home with her today she is in agreement with this. Stressed importance of making all upcoming appointments, patient verbalizes understanding PLAN: 1. We will discharge home today 2. Follow-up with PCP in 1 week 3. Follow-up with cardiology in 2 weeks 4. Follow-up with pulmonology in 4 weeks Objective Vital signs: Temp Pulse Resp BP Pulse Ox 97.8 F 71 21 117/60 91 L 08/08/21 08:00 08/08/21 09:35 08/08/21 08:00 08/08/21 08:00 08/08/21 09:35 no acute distress - *Routine HEENT Exam Head: Present: normocephalic Eye: Presen
[2021-08-08 12:00] VITALS: BP 131/86; PULSE 81; RESP 20; TEMP 36.8; O2SAT 92
== END 2021-08-08 14:58 | disposition home or self-care (01) ==
PROVIDERS: Internal Medicine; Physician Assistant; Admitting Provider Family Medicine; PCP Family Medicine; Visit Provider Family Medicine
DX: R07.9 Chest pain, unspecified (principal); J44.1 Chronic obstructive pulmonary disease with (acute) exacerbation; E66.01 Morbid (severe) obesity due to excess calories; Z68.44 Body mass index [BMI] 60.0-69.9, adult; I10 Essential (primary) hypertension; Z82.49 Family history of ischemic heart disease and other diseases of the circulatory system; R06.02 Shortness of breath; E03.9 Hypothyroidism, unspecified; F17.210 Nicotine dependence, cigarettes, uncomplicated; K43.2 Incisional hernia without obstruction or gangrene; M25.561 Pain in right knee; M25.562 Pain in left knee; K43.9 Ventral hernia without obstruction or gangrene; Z79.899 Other long term (current) drug therapy; Z20.822 Contact with and (suspected) exposure to COVID-19
CPT/HCPCS: G0378; 36415; 71045; 71046; 80048; 80053; 82803; 83036; 83605; 84443; 84484; 85007; 85025; 85347; 87040; 93005; 93306; 93458; 94640; 94760; 94761; 99152; C1725; C1760; C1769; C9803; J0456; J0696; J1644; Q9967; U0003; U0005

== ENCOUNTER → 2021-08-09 17:42 | Outpatient (CLI) | payer MEDICARE, OTHER, SELFPAY ==
[2021-08-09 17:46] LABS: Adenovirus,PCR Not Detected (NotDetected); Bordetella Pertussis Not Detected (NotDetected); Chlamydophila Pneumoniae, PCR Not Detected (NotDetected); Coronavirus 19, PCR Not Detected (NotDetected); Coronavirus 229E Not Detected (NotDetected); Coronavirus NL63 Not Detected (NotDetected); Coronavirus OC43 Not Detected (NotDetected); Coronovirus HKU1,PCR Not Detected (NotDetected); Human Metapneumovirus Not Detected (NotDetected); Influenza A, PCR Not Detected (NotDetected); Influenza AH1, 2009 Not Detected (NotDetected); Influenza AH1, PCR Not Detected (NotDetected); Influenza AH3,PCR Not Detected (NotDetected); Influenza B, PCR Not Detected (NotDetected); Mycoplasma Pneumoniae, PCR Not Detected (NotDetected); Parainfluenza 1, PCR Not Detected (NotDetected); Parainfluenza 2, PCR Not Detected (NotDetected); Parainfluenza 3, PCR Not Detected (NotDetected); Parainfluenza 4, PCR Not Detected (NotDetected); Respiratory Syncytial Virus Not Detected (NotDetected); Rhinovirus/Enterovirus Not Detected (NotDetected)
== END ==
PROVIDERS: Visit Provider Family Medicine
DX: Z20.822 Contact with and (suspected) exposure to COVID-19 (principal); R06.02 Shortness of breath; R05.9 Cough, unspecified
CPT/HCPCS: 87581; 87632; 87798; C9803; U0003; U0005

== ENCOUNTER 2021-09-30 11:45 | Emergency (ER) | payer MEDICARE, OTHER, SELFPAY ==
[2021-09-30] VITALS (7 sets, daily range): BP systolic 0–141; BP diastolic 0–84; PULSE 0–100; RESP 0–22; TEMP -17.7–36.6; O2SAT 0–98; BMI 65.7
--- NOTE | 2021-09-30 12:25 | ECG_ITS ---
APPROVED REPORT Exam: Resting ECG HR:94 bpm ECG Measurements Heart Rate 94 AXES GA 145 P 71 QRSd 139 QRS -77 QT 348 T 38 QTc 399 Conclusion SINUS RHYTHM POSSIBLE RIGHT ATRIAL ENLARGEMENT [0.25mV P-WAVE] RIGHT BUNDLE BRANCH BLOCK [120+ ms QRS DURATION, UPRIGHT V1, 40+ ms S IN I/aVL/V4/V5/V6] LEFT ANTERIOR FASCICULAR BLOCK [QRS AXIS <= -45, QR IN I, RS IN II] ABNORMAL ECG UNCONFIRMED REPORT Electronically signed by : Fabrizio Rosales MD 10/01/2021 14:08:00
--- NOTE | 2021-09-30 12:37 | XR_ITS ---
FINAL REPORT CLINICAL HISTORY: soa COMPARISON: August 07, 2021 FINDINGS: Two views of the chest were obtained. The heart size and pulmonary vascularity are within normal limits. The mediastinum is normal. There is mild scarring/fibrosis. There is no pneumothorax. There are mild and moderate degenerative changes of the thoracic spine. IMPRESSION: Mild scarring/fibrosis. Reviewed, Interpreted and Dictated by Daniel Rivers III, MD Transcribed by Ramona Zapata Authenticated by Daniel Rivers III, MD on 09/30/2021 03:00:47 PM [facility]
--- NOTE | 2021-09-30 13:02 | PC.NURSE ---
Respiratory at bedside
--- NOTE | 2021-09-30 13:07 | PC.NURSE ---
RESP HERE DOING NEB
[2021-09-30 13:18] LABS: ABG Base Excess 2.7 mmol/L (-2.4-2.3); ABG HCO3 27.4 mmhg (22.0-26.0); ABG Oxygen Saturation 93 % (90-100); ABG PCO2 45.1 mmhg (35.0-45.0); ABG PO2 61.9 mmhg (80-100); ABG TCO2 28.8 mmhg (23-27)
[2021-09-30 13:21] LABS: Allen's Test Acceptable; Oxygen 1L NC %; Source Right Radial
--- NOTE | 2021-09-30 13:30 | HMH.EDGENADL ---
ED Disposition Clinical Impression: Left against medical advice Disposition: Left Against Medical Advice Condition on Discharge: Fair Prescriptions: Albuterol Sulfate [Albuterol Sulfate 2.5mg/0.5ml Neb] 2.5 mg IH Q4-6H 30 Days #50 ml Transmission Status: Received by [facility] Referrals: Miquel Corado MD [Primary Care Provider] - - Critical Care Critical Care Time: Yes Attestation: On 09/30/21, the high probability of a clinically significant, sudden or life threatening deterioration of the following system(s) required my full and direct attention, intervention and personal management. The time I documented below is in addition to time spent performing reported procedures but includes the following listed in this critical care notation. Total Critical Care Time: 45 Vital system(s) involved:: Respiratory Failure My critical care processes included: Assessment & monitoring of V/S, Initial and Re-exams, Data Review/Interpretation, Coordinating Care, Medication Orders and management, Documentation Medical Decision Making - Medical Records Medical records reviewed: Yes: I reviewed the patient's medical records. - [place] Inquiry Pt receiving controlled substance: No Vital Signs: 09/30/21 12:33 09/30/21 13:15 09/30/21 13:29 Temperature 98 F Temperature Source Oral Pulse Rate 88 92 H Pulse Rate [Left Radial] 100 H Respiratory Rate 22 Blood Pressure Blood Pressure Mean 02 Sat by Pulse Oximetry 87 L 98 97 Oxygen Delivery Method Room Air Oxygen Flow Rate (LPM) 09/30/21 13:30 09/30/21 13:31 09/30/21 17:09 Temperature Temperature Source Pulse Rate 93 H 92 H Pulse Rate [Left Radial] Respiratory Rate Blood Pressure 141/84 H 120/76 Blood Pressure Mean 96 02 Sat by Pulse Oximetry 98 92 L Oxygen Delivery Method Nasal Cannula Oxygen Flow Rate (LPM) 2 09/30/21 18:45 Temperature 0 F L Temperature Source Pulse Rate 0 L Pulse Rate [Left Radial] Respiratory Rate 0 L Blood Pressure 0/0 L Blood Pressure Mean 02 Sat by Pulse Oximetry Oxygen Delivery Method Oxygen Flow Rate (LPM) - Lab Data Lab results reviewed: Yes: I reviewed the patient's lab results. Lab Results 09/30/21 13:16: Specimen Source Right radial, O2 % 1l nc, ABG pH 7.40, ABG pCO2 45.1 H, ABG pO2 61.9 L, ABG HCO3 27.4 H, ABG Total CO2 28.8 H, ABG O2 Saturation 93, ABG Base Excess 2.7 H, Wei Test Acceptable 09/30/21 13:30: Troponin I < 0.01 09/30/21 13:30: D-Dimer 0.78 H 09/30/21 13:30: Sodium 136, Potassium 4.3, Chloride 99, Carbon Dioxide 35 H, Anion Gap 6.3, BUN 12, Creatinine 0.90, Estimated Creat Clear 60, Estimated GFR 65, Est GFR ( Amer) 79, Glucose 110 H, Calcium 8.7, Total Bilirubin 0.4, AST 30, ALT 20, Alkaline Phosphatase 91, NT-Pro-B Natriuret Pep 30.7, Total Protein 6.9, Albumin 3.8, Globulin 3.1, Albumin/Globulin Ratio 1.2 09/30/21 13:55: WBC 6.6, RBC 5.14, Hgb 14.8, Hct 47.5 H, MCV 92.4, MCH 28.8, MCHC 31.2 L, RDW 16.5, Plt Count 285, MPV 8.0, Neut % (Auto) 47.5, Lymph % (Auto) 43.0, [place] % (Auto) 6.8, Eos % (Auto) 2.0, Baso % (Auto) 0.8, Neut # (Auto) 3.1, Lymph # (Auto) 2.8, [place] # (Auto) 0.5, Eos # (Auto) 0.1, Baso # (Auto) 0.1 09/30/21 14:41: SARS-CoV-2 (PCR) Not detected, Influenza A Untype (PCR) Not detected, Influenza Type B (PCR) Not detected 09/30/21 16:00: Troponin I < 0.01 09/30/21 18:30: Troponin I < 0.01 Result diagrams: 09/30/21 13:55 09/30/21 13:30 Orders (Tests/Meds): ED MEDICATIONS Discontinued Medications Generic Name Dose Route Start Last Admin Trade Name Freq PRN Reason Stop Dose Admin Albuterol Sulfate 2.5 mg 09/30/21 14:33 09/30/21 15:51 Albuterol 0.083% 2.5 Mg/3 Ml Neb IH 09/30/21 14:34 Not Given ONCE ONE Albuterol/Ipratropium 9 ml 09/30/21 12:45 09/30/21 15:49 Ipratropium/Albuterol 3 Ml Neb 10/30/21 12:44 Not Given Q1H LINDSEY Dexamethasone Sodium Phosphate 10 mg 09/30/21 12:39 09/30/21 13:40 Dexamethason
[2021-09-30 14:03] LABS: Basophils # 0.1 K/mm3 (0-0.2); Basophils % 0.8 % (0.1-2.0); Eosinophils # 0.1 K/mm3 (0.0-0.4); Hematocrit 47.5 % (37.0-47.0); Hemoglobin 14.8 g/dL (12.2-16.2); Lymphocytes # 2.8 K/mm3 (0.7-4.5); Mean Corpuscular HGB Conc 31.2 g/dL (31.8-35.4); Mean Corpuscular Hemoglobin 28.8 pg (27.0-31.2); Mean Corpuscular Volume 92.4 fl (81-99); Monocytes # 0.5 K/mm3 (0.1-1.0); Monocytes % 6.8 % (1.7-9.3); Neutrophils # 3.1 K/mm3 (1.8-7.8); Neutrophils % 47.5 % (37.0-80.0); Platelet Count 285 K/mm3 (142-424); Red Blood Count 5.14 M/mm3 (4.20-5.40); Red Cell Distribution Width 16.5 % (11.5-17.5); White Blood Count 6.6 K/mm3 (4.8-10.8)
[2021-09-30 14:04] LABS: Alanine Aminotransferase 20 U/L (12-78); Albumin Level 3.8 g/dl (3.5-5.0); Albumin/Globulin Ratio 1.2 (1.1-1.8); Alkaline Phosphatase 91 U/L (38-126); Anion Gap 6.3 mEq/L (5-15); Aspartate Amino Transferase 30 U/L (14-36); Bilirubin,Total 0.4 mg/dl (0.2-1.3); Blood Urea Nitrogen 12 mg/dl (7-17); Calcium 8.7 mg/dl (8.4-10.2); Carbon Dioxide 35 mmol/L (22.0-30.0); Chloride 99 mmol/L (98-107); Creatinine Clearance Estimated 60 mL/min (50-200); Estimated Glomerular Filt Rate 65 ml/min (>60); GFR (African American) 79 ML/MIN (>60); Globulin 3.1 g/dL (1.3-3.2); Glucose 110 mg/dl (74-100); Potassium 4.3 mmoL/L (3.5-5.1); Sodium 136 mmol/L (136-145); Total Protein,Serum 6.9 g/dl (6.3-8.2)
[2021-09-30 14:09] LABS: D-Dimer 0.78 ug/mL (0.0-0.5)
[2021-09-30 14:14] LABS: NT Pro Brain Natriuretic Pep. 30.7 pg/mL (0-125)
[2021-09-30 14:18] LABS: Troponin I < 0.01 ng/ml (0.00-0.034)
--- NOTE | 2021-09-30 14:30 | PC.NURSE ---
ED MD at bedside for update on POC
--- NOTE | 2021-09-30 14:35 | CT_ITS ---
FINAL REPORT CLINICAL HISTORY: Hypoxia FINDINGS: Thin section axial CT images of the chest were obtained with contrast. 3D reformatted images were also obtained. This study was performed with techniques to keep radiation doses as low as reasonably achievable (ALARA). Individualized dose reduction techniques using automated exposure control or adjustment of mA and/or kV according to the patient's size were employed. Very poor contrast bolus limits sensitivity of this exam. The exam is also limited secondary to patient body habitus. There is no evidence of large central pulmonary embolism. There is no evidence of thoracic aortic aneurysm or dissection. There are multiple borderline sized mediastinal lymph nodes. There is mild bibasilar atelectasis or scarring. No suspicious nodules identified. Limited images of the upper abdomen demonstrate postoperative changes from cholecystectomy. There is also a partially imaged large anterior abdominal wall hernia. IMPRESSION: No evidence of large central pulmonary embolism. Multiple borderline size mediastinal lymph nodes. Mild bibasilar atelectasis or scarring. Reviewed, Interpreted and Dictated by Daniel Rivers III, MD Transcribed by Mikayla Beebe Authenticated by Daniel Rivers III, MD on 09/30/2021 04:55:20 PM [facility]
[2021-09-30 14:49] LABS: Coronavirus 19, PCR Not Detected (NotDetected); Influenza A, PCR Not Detected (NotDetected); Influenza B, PCR Not Detected (NotDetected)
--- NOTE | 2021-09-30 14:52 | PC.NURSE ---
Respiratory at BS for breathing treatment
[2021-09-30 16:36] LABS: Troponin I < 0.01 ng/ml (0.00-0.034)
--- NOTE | 2021-09-30 17:47 | PC.NURSE ---
Lab unable to draw blood cultures per Edmund. ABELARDO PEÑALOZA notified
--- NOTE | 2021-09-30 17:57 | PC.NURSE ---
ED MD at bedside for update on POC
--- NOTE | 2021-09-30 18:10 | PC.NURSE ---
patient to restroom with assist of tech
--- NOTE | 2021-09-30 18:21 | PC.NURSE ---
ED MD at bedside for update on POC
[2021-09-30 19:13] LABS: Troponin I < 0.01 ng/ml (0.00-0.034)
== END 2021-09-30 18:47 | disposition left against medical advice (07) ==
PROVIDERS: Emergency Provider Emergency Medicine; PCP Family Medicine
DX: J44.1 Chronic obstructive pulmonary disease with (acute) exacerbation (principal); J06.9 Acute upper respiratory infection, unspecified; Z99.81 Dependence on supplemental oxygen; I10 Essential (primary) hypertension; E03.9 Hypothyroidism, unspecified; E78.5 Hyperlipidemia, unspecified; F17.210 Nicotine dependence, cigarettes, uncomplicated
CPT/HCPCS: 36415; 71046; 71275; 80053; 82803; 83880; 84484; 85025; 85378; 93005; 96374; 99285; C9803; Q9967; U0003; U0005

== ENCOUNTER 2021-12-19 13:53 | Emergency (ER) | payer MEDICARE, OTHER, SELFPAY ==
[2021-12-19] VITALS (7 sets, daily range): BP systolic 111–140; BP diastolic 66–82; PULSE 80–100; RESP 17–18; TEMP 36.7; O2SAT 93–97; BMI 65.7
--- NOTE | 2021-12-19 | ECG_ITS ---
APPROVED REPORT Exam: Resting ECG HR:101 bpm ECG Measurements Heart Rate 101 AXES [place] 150 P 65 QRSd 119 QRS -52 QT 312 T 30 QTc 370 Conclusion SINUS TACHYCARDIA RIGHT BUNDLE BRANCH BLOCK ABNORMAL ECG UNCONFIRMED REPORT Electronically signed by : Fabrizio Rosales MD 12/19/2021 21:20:59
--- NOTE | 2021-12-19 14:16 | XR_ITS ---
FINAL REPORT CLINICAL HISTORY: sob COMPARISON: 09/30/2021 FINDINGS: SINGLE-VIEW CHEST The heart size is normal. The mediastinum is normal. There is pulmonary vascular congestion. The lungs are clear. There is no pneumothorax. IMPRESSION: Pulmonary vascular congestion. Reviewed, Interpreted and Dictated by Daniel Rivers III, MD Transcribed by Leonor Patterson Authenticated and [facility]
[2021-12-19 14:44] LABS: Chloride 98 mmol/L (98-107); Potassium 4.5 mmoL/L (3.5-5.1); Sodium 135 mmol/L (136-145)
[2021-12-19 14:45] LABS: Basophils # 0.2 K/mm3 (0-0.2); Basophils % 1.9 % (0.1-2.0); Eosinophils # 0.2 K/mm3 (0.0-0.4); Eosinophils % 2.1 % (0.1-12.0); Hematocrit 48.9 % (37.0-47.0); Hemoglobin 15.4 g/dL (12.2-16.2); Lymphocytes # 1.8 K/mm3 (0.7-4.5); Lymphocytes % 21.8 % (10-50); Mean Corpuscular HGB Conc 31.6 g/dL (31.8-35.4); Mean Corpuscular Hemoglobin 29.2 pg (27.0-31.2); Mean Corpuscular Volume 92.5 fl (81-99); Mean Platelet Volume 8.5 fl (7.4-10.4); Monocytes # 0.3 K/mm3 (0.1-1.0); Monocytes % 3.7 % (1.7-9.3); Neutrophils # 5.9 K/mm3 (1.8-7.8); Neutrophils % 70.5 % (37.0-80.0); Platelet Count 333 K/mm3 (142-424); Red Blood Count 5.28 M/mm3 (4.20-5.40); Red Cell Distribution Width 16.2 % (11.5-17.5); White Blood Count 8.4 K/mm3 (4.8-10.8)
[2021-12-19 14:46] LABS: Blood Urea Nitrogen 9 mg/dl (7-17); Creatinine Clearance Estimated 67 mL/min (50-200); Estimated Glomerular Filt Rate 75 ml/min (>60); GFR (African American) 91 ML/MIN (>60)
[2021-12-19 14:47] LABS: Alanine Aminotransferase 30 U/L (12-78); Albumin Level 3.8 g/dl (3.5-5.0); Albumin/Globulin Ratio 1.1 (1.1-1.8); Alkaline Phosphatase 105 U/L (38-126); Anion Gap 6.5 mEq/L (5-15); Aspartate Amino Transferase 34 U/L (14-36); Bilirubin,Total 0.3 mg/dl (0.2-1.3); Calcium 9.9 mg/dl (8.4-10.2); Carbon Dioxide 35 mmol/L (22.0-30.0); Globulin 3.5 g/dL (1.3-3.2); Glucose 178 mg/dl (74-100); Total Protein,Serum 7.3 g/dl (6.3-8.2)
[2021-12-19 15:02] LABS: Troponin I < 0.01 ng/ml (0.00-0.034)
--- NOTE | 2021-12-19 15:39 | HMH.EDCP ---
ED Disposition Clinical Impression: Acute exacerbation of chronic obstructive airways disease Disposition: Home, Self-Care Condition on Discharge: Good Instructions: DI for Chronic Obstructive Pulmonary Disease Prescriptions: Doxycycline Monohydrate [Doxycycline Mills 100mg Tab] 100 mg PO Q12 #20 tab Transmission Status: Pending to [facility] methylPREDNISolone [Medrol 4mg tab] 4 mg PO DIRECTED #21 tab Transmission Status: Pending to [facility] Referrals: Miquel Corado MD [Primary Care Provider] - - Critical Care Critical Care Time: No Attestation: On 12/19/21, the high probability of a clinically significant, sudden or life threatening deterioration of the following system(s) required my full and direct attention, intervention and personal management. The time I documented below is in addition to time spent performing reported procedures but includes the following listed in this critical care notation. Medical Decision Making - Medical Records Medical records reviewed: Yes: I reviewed the patient's medical records. - [place] Inquiry Pt receiving controlled substance: No Vital Signs: 12/19/21 14:18 12/19/21 15:00 12/19/21 15:30 Temperature 98.0 F Temperature Source Oral Pulse Rate 89 88 Pulse Rate [Left Radial] 100 H Respiratory Rate 17 Blood Pressure 139/82 117/75 Blood Pressure [Right Arm] 140/66 Blood Pressure Mean 89 92 Blood Pressure Mean [Right Arm] 90 02 Sat by Pulse Oximetry 96 93 L 96 Oxygen Delivery Method Room Air Nasal Cannula Oxygen Flow Rate (LPM) 2 12/19/21 16:00 12/19/21 16:30 12/19/21 17:00 Temperature Temperature Source Pulse Rate 89 80 84 Pulse Rate [Left Radial] Respiratory Rate 18 18 Blood Pressure 137/78 111/67 115/75 Blood Pressure [Right Arm] Blood Pressure Mean 85 78 85 Blood Pressure Mean [Right Arm] 02 Sat by Pulse Oximetry 94 L 94 L 95 Oxygen Delivery Method Oxygen Flow Rate (LPM) - Lab Data Lab Results 12/19/21 14:25: WBC 8.4, RBC 5.28, Hgb 15.4, Hct 48.9 H, MCV 92.5, MCH 29.2, MCHC 31.6 L, RDW 16.2, Plt Count 333, MPV 8.5, Neut % (Auto) 70.5, Lymph % (Auto) 21.8, Mills % (Auto) 3.7, Eos % (Auto) 2.1, Baso % (Auto) 1.9, Neut # (Auto) 5.9, Lymph # (Auto) 1.8, Mills # (Auto) 0.3, Eos # (Auto) 0.2, Baso # (Auto) 0.2 12/19/21 14:25: Sodium 135 L, Potassium 4.5, Chloride 98, Carbon Dioxide 35 H, Anion Gap 6.5, BUN 9, Creatinine 0.80, Estimated Creat Clear 67, Estimated GFR 75, Est GFR ( Amer) 91, Glucose 178 H, Calcium 9.9, Total Bilirubin 0.3, AST 34, ALT 30, Alkaline Phosphatase 105, Troponin I < 0.01, Total Protein 7.3, Albumin 3.8, Globulin 3.5 H, Albumin/Globulin Ratio 1.1 12/19/21 14:25: NT-Pro-B Natriuret Pep 23.0 Result diagrams: 12/19/21 14:25 12/19/21 14:25 Orders (Tests/Meds): ED MEDICATIONS Discontinued Medications Generic Name Dose Route Start Last Admin Trade Name Freq PRN Reason Stop Dose Admin Albuterol/Ipratropium 3 ml 12/19/21 14:16 12/19/21 14:30 Ipratropium/Albuterol 3 Ml Neb 12/19/21 14:17 3 ml ONCE ONE Administration Methylprednisolone Sodium Succinate 125 mg 12/19/21 14:16 12/19/21 14:30 Methylprednisolone Sod Succ 125mg Vial IV 12/19/21 14:17 125 mg ONCE ONE Administration ORDERS Category Date Time Status Troponin I Q3H Lab 12/19/21 17:30 Ordered Troponin I Q3H Lab 12/19/21 20:30 Ordered - Radiology Data #1 Image(s): Chest Image Reviewed: Yes I reviewed the patient's radiology results, Yes I reviewed the patient's radiology image, Yes I have reviewed radiologist's interpretation IMPRESSION: Pulmonary vascular congestion. - ECG Data Tracing #1 I reviewed this ECG and interpreted as documented below: Tachycardic rate of 101 bpm, SD interval 150 ms, normal QTC. Sinus rhythm with nonspecific changes. ECG initial impression date: 12/19/21 ECG initial impression time: 13:53 - Reevaluation(s) Time
--- NOTE | 2021-12-19 17:05 | PC.NURSE ---
Pt given 2 diet pepsi, okayed by
== END 2021-12-19 17:29 | disposition home or self-care (01) ==
PROVIDERS: Emergency Provider Emergency Medicine; PCP Family Medicine
DX: J44.1 Chronic obstructive pulmonary disease with (acute) exacerbation (principal); Z88.5 Allergy status to narcotic agent; E78.5 Hyperlipidemia, unspecified; I10 Essential (primary) hypertension; Z86.73 Personal history of transient ischemic attack (TIA), and cerebral infarction without residual deficits; Z72.0 Tobacco use; G47.33 Obstructive sleep apnea (adult) (pediatric); M19.90 Unspecified osteoarthritis, unspecified site; F32.A Depression, unspecified
CPT/HCPCS: 71045; 80053; 83880; 84484; 85025; 93005; 94640; 96374; 99284

== ENCOUNTER 2022-01-06 19:30 | Emergency (ER) | payer MEDICARE, OTHER, SELFPAY ==
[2022-01-06 19:31] VITALS: BP 134/60; PULSE 78; RESP 24; TEMP 36.9; O2SAT 94; BMI 65.7
--- NOTE | 2022-01-06 20:11 | XR_ITS ---
PROCEDURE INFORMATION: Exam: XR Chest Exam date and time: 01/06/2022 8:14 PM Age: 51 years old Clinical indication: Cough; Sternal or substernal pain; Additional info: Chest pain TECHNIQUE: Imaging protocol: Radiologic exam of the chest. Views: 2 views. COMPARISON: CR XR CHEST PORTABLE 12/19/2021 2:32 PM FINDINGS: Lungs: Examination is significantly lmited by technique and body habitus. Hazy opacification of the lower lung zones. Pleural spaces: No pneumothorax. Heart/Mediastinum: No cardiomegaly. Bones/joints: No acute fracture. IMPRESSION: Hazy opacification of the lower lung zones which is likely secondary to technique.
--- NOTE | 2022-01-06 20:12 | ECG_ITS ---
APPROVED REPORT Exam: Resting ECG HR:80 bpm ECG Measurements Heart Rate 80 AXES IA 137 P 80 QRSd 140 QRS -53 QT 379 T 48 QTc 415 Conclusion SINUS RHYTHM RIGHT BUNDLE BRANCH BLOCK [120+ ms QRS DURATION, UPRIGHT V1, 40+ ms S IN I/aVL/V4/V5/V6] LEFT ANTERIOR FASCICULAR BLOCK [QRS AXIS <= -45, QR IN I, RS IN II] ABNORMAL ECG UNCONFIRMED REPORT Electronically signed by : Fabrizio Rosales MD 01/08/2022 14:43:54
--- NOTE | 2022-01-06 20:14 | HMH.EDSOB ---
ED Disposition Clinical Impression: Acute exacerbation of chronic obstructive airways disease, Hypothyroidism (acquired), Tobacco abuse Obesity Qualifiers: Obesity type: due to excess calories Obesity classification: adult class 3 (BMI >= 40) Serious obesity comorbidity presence: unspecified whether serious comorbidity present Body mass index: BMI 60.0-69.9 Qualified Code(s): E66.01 - Morbid (severe) obesity due to excess calories; Z68.44 - Body mass index [BMI] 60.0-69.9, adult Respiratory failure, [id number] Qualifiers: Respiratory failure complication: hypoxia and hypercapnia Qualified Code(s): J96.21 - Acute and chronic respiratory failure with hypoxia; J96.22 - Acute and chronic respiratory failure with hypercapnia Disposition: Admitted as Observation Condition on Discharge: Fair Referrals: Miquel Corado MD [Primary Care Provider] - - Critical Care Critical Care Time: No Attestation: On 01/06/22, the high probability of a clinically significant, sudden or life threatening deterioration of the following system(s) required my full and direct attention, intervention and personal management. The time I documented below is in addition to time spent performing reported procedures but includes the following listed in this critical care notation. Medical Decision Making - Medical Records Medical records reviewed: Yes: I reviewed the patient's medical records. - [place] Inquiry Pt receiving controlled substance: No Vital Signs: 01/06/22 19:31 01/06/22 21:01 Temperature 98.4 F Temperature Source Oral Pulse Rate 82 Pulse Rate [Left Radial] 78 Respiratory Rate 24 22 Blood Pressure [Right Arm] 134/60 Blood Pressure Mean [Right Arm] 84 02 Sat by Pulse Oximetry 94 L Oxygen Delivery Method Room Air - Lab Data Lab results reviewed: Yes: I reviewed the patient's lab results. Lab Results 01/06/22 20:11: Specimen Source Left radial, O2 % 2lpm, ABG pH 7.38, ABG pCO2 55.1 H, ABG pO2 69.3 L, ABG HCO3 31.6 H, ABG Total CO2 33.3 H, ABG O2 Saturation 95, ABG Base Excess 6.5 H, Wei Test Acceptable 01/06/22 20:16: WBC 9.5, RBC 4.84, Hgb 14.4, Hct 44.7, MCV 92.4, MCH 29.7, MCHC 32.2, RDW 16.2, Plt Count 271, MPV 8.4, Neut % (Auto) 71.5, Lymph % (Auto) 19.4, [place] % (Auto) 4.8, Eos % (Auto) 3.0, Baso % (Auto) 1.4, Neut # (Auto) 6.8, Lymph # (Auto) 1.9, [place] # (Auto) 0.5, Eos # (Auto) 0.3, Baso # (Auto) 0.1, ESR 19 01/06/22 20:16: Sodium 137, Potassium 4.7, Chloride 95 L, Carbon Dioxide 40 H, Anion Gap 6.7, BUN 11, Creatinine 0.70, Estimated Creat Clear 77, Estimated GFR 88, Est GFR ( Amer) 106, Glucose 107 H, Calcium 9.5, Total Bilirubin < 0.1 L, Direct Bilirubin 0.1, Conjugated Bilirubin 0.0, Indirect Bilirubin 0.1, Unconjugated Bilirubin 0.3, AST 23, ALT 17, Alkaline Phosphatase 105, Troponin I < 0.01, C-Reactive Protein 60.3 H, Total Protein 7.1, Albumin 3.5, Procalcitonin 0.050 01/06/22 20:16: NT-Pro-B Natriuret Pep 92.8 01/06/22 20:43: Lactate 1.1 01/06/22 20:48: SARS-CoV-2 (PCR) Not detected, Influenza A Untype (PCR) Not detected, Influenza Type B (PCR) Not detected Result diagrams: 01/06/22 20:16 01/06/22 20:16 Orders (Tests/Meds): ED MEDICATIONS Generic Name Dose Route Start Last Admin Trade Name Freq PRN Reason Stop Dose Admin Sodium Chloride 10 ml 01/06/22 20:13 Sodium Chloride 0.9% 10ml Flush Syringe IV 02/05/22 20:12 NEEDED PRN Maintain IV Site Sodium Chloride 3 ml 01/06/22 20:47 01/06/22 21:00 Sodium Chloride 3% 15ml Neb IH 02/05/22 20:46 3 ml ONCE PRN Administration INDUCE SPUTUM COLLECTION Discontinued Medications Generic Name Dose Route Start Last Admin Trade Name Freq PRN Reason Stop Dose Admin Albuterol/Ipratropium 3 ml 01/06/22 20:46 01/06/22 21:00 Ipratropium/Albuterol 3 Ml Neb IH 01/06/22 20:47 3 ml ONCE ONE Administration Furosemide 40 mg 01/06/22 20:59 01/06/22 21:04 Furosemide 40mg/4ml Vial IV 01/06/22 21:00 40 mg
[2022-01-06 20:37] LABS: Basophils # 0.1 K/mm3 (0-0.2); Basophils % 1.4 % (0.1-2.0); Eosinophils # 0.3 K/mm3 (0.0-0.4); Hematocrit 44.7 % (37.0-47.0); Hemoglobin 14.4 g/dL (12.2-16.2); Lymphocytes # 1.9 K/mm3 (0.7-4.5); Lymphocytes % 19.4 % (10-50); Mean Corpuscular HGB Conc 32.2 g/dL (31.8-35.4); Mean Corpuscular Hemoglobin 29.7 pg (27.0-31.2); Mean Corpuscular Volume 92.4 fl (81-99); Mean Platelet Volume 8.4 fl (7.4-10.4); Monocytes # 0.5 K/mm3 (0.1-1.0); Monocytes % 4.8 % (1.7-9.3); Neutrophils # 6.8 K/mm3 (1.8-7.8); Neutrophils % 71.5 % (37.0-80.0); Platelet Count 271 K/mm3 (142-424); Red Blood Count 4.84 M/mm3 (4.20-5.40); Red Cell Distribution Width 16.2 % (11.5-17.5); White Blood Count 9.5 K/mm3 (4.8-10.8)
[2022-01-06 20:46] LABS: ABG Base Excess 6.5 mmol/L (-2.4-2.3); ABG HCO3 31.6 mmhg (22.0-26.0); ABG Oxygen Saturation 95 % (90-100); ABG PH 7.38 mmol/L (7.35-7.45); ABG PO2 69.3 mmhg (80-100); ABG TCO2 33.3 mmhg (23-27)
[2022-01-06 20:47] LABS: Allen's Test Acceptable; Source Left Radial
[2022-01-06 20:48] LABS: ABG PCO2 55.1 mmhg (35.0-45.0)
[2022-01-06 20:55] LABS: Coronavirus 19, PCR Not Detected (NotDetected); Influenza A, PCR Not Detected (NotDetected); Influenza B, PCR Not Detected (NotDetected)
[2022-01-06 20:57] LABS: Alanine Aminotransferase 17 U/L (12-78); Albumin Level 3.5 g/dl (3.5-5.0); Alkaline Phosphatase 105 U/L (38-126); Aspartate Amino Transferase 23 U/L (14-36); Bilirubin,Unconjugated 0.3 mg/dL (0.0-1.1); Blood Urea Nitrogen 11 mg/dl (7-17); Calcium 9.5 mg/dl (8.4-10.2); Chloride 95 mmol/L (98-107); Creatinine Clearance Estimated 77 mL/min (50-200); Estimated Glomerular Filt Rate 88 ml/min (>60); GFR (African American) 106 ML/MIN (>60); Glucose 107 mg/dl (74-100); Potassium 4.7 mmoL/L (3.5-5.1); Sodium 137 mmol/L (136-145); Total Protein,Serum 7.1 g/dl (6.3-8.2)
[2022-01-06 21:00] LABS: Lactic Acid 1.1 mmol/L (0.7-2.1)
[2022-01-06 21:01] VITALS: PULSE 80; PULSE 82; RESP 22
[2022-01-06 21:01] LABS: Bilirubin,Total < 0.1 mg/dl (0.2-1.3)
[2022-01-06 21:02] LABS: C-Reactive Protein 60.3 mg/L (0-4)
[2022-01-06 21:03] LABS: Anion Gap 6.7 mEq/L (5-15); Carbon Dioxide 40 mmol/L (22.0-30.0)
[2022-01-06 21:09] LABS: NT Pro Brain Natriuretic Pep. 92.8 pg/mL (0-125)
[2022-01-06 21:11] LABS: Erythrocyte Sedimentation Rate 19 mm/hr (0-30)
[2022-01-06 21:12] LABS: Troponin I < 0.01 ng/ml (0.00-0.034)
[2022-01-06 21:34] LABS: Bilirubin,Direct 0.1 mg/dl (0.0-0.4); Bilirubin,Indirect 0.1 mg/dL (0.0-0.9)
--- NOTE | 2022-01-06 23:06 | PC.NURSE ---
RT at BS
[2022-01-06 23:17] LABS: T4 (Thyroxine) 4.5 ug/dl (5.53-11.0)
[2022-01-06 23:32] LABS: Troponin I < 0.01 ng/ml (0.00-0.034)
[2022-01-06 23:38] VITALS: BP 124/73; PULSE 82; RESP 22; TEMP 36.9; O2SAT 95
[2022-01-06 23:52] LABS: Microscopic, Urine URINE MICROSCOPIC (MICROSCOPIC)
[2022-01-06 23:55] LABS: Appearance,Urine CLEAR (Clear); Bilirubin,Urine Negative (Negative); Blood, Urine Negative (Negative); Color,Urine YELLOW (Yellow); Glucose,Urine (UA) Negative (Negative); Ketones,Urine Negative (Negative); Leukocyte Esterase,Urine Negative (Negative); Nitrate,Urine Negative (Negative); PH,Urine 5.5 (5.0-8.5); Protein,Urine Negative (Negative); Urobilinogen,Urine 0.2 EU/dl (0.2)
[2022-01-07 00:30] LABS: Squamous Epithelial Cell,Urine Occasional #/hpf (0-5); WBC,Urine Occasional #/hpf (0-3)
== END 2022-01-06 23:40 | disposition left against medical advice (07) ==
LOC: ER 20:13 → 2ND 22:55 → ER 23:39
PROVIDERS: Emergency Provider Emergency Medicine; PCP Family Medicine
DX: J44.1 Chronic obstructive pulmonary disease with (acute) exacerbation (principal); J96.21 Acute and chronic respiratory failure with hypoxia; J96.22 Acute and chronic respiratory failure with hypercapnia; Z20.822 Contact with and (suspected) exposure to COVID-19; I10 Essential (primary) hypertension; E78.5 Hyperlipidemia, unspecified; G47.30 Sleep apnea, unspecified; E66.01 Morbid (severe) obesity due to excess calories; F32.A Depression, unspecified; F17.210 Nicotine dependence, cigarettes, uncomplicated; Z79.51 Long term (current) use of inhaled steroids; Z79.899 Other long term (current) drug therapy; Z88.5 Allergy status to narcotic agent; Z91.048 Other nonmedicinal substance allergy status; Z86.73 Personal history of transient ischemic attack (TIA), and cerebral infarction without residual deficits; Z68.44 Body mass index [BMI] 60.0-69.9, adult
CPT/HCPCS: 71046; 80048; 80076; 81001; 82803; 83605; 83880; 84145; 84436; 84443; 84484; 85025; 85651; 86140; 87040; 87070; 87077; 87186; 87205; 93005; 96374; 96375; 99285; C9803; U0003; U0005

== ENCOUNTER 2022-03-22 14:25 | Emergency (ER) | payer MEDICARE, OTHER, SELFPAY ==
[2022-03-22] VITALS (7 sets, daily range): BP systolic 114–131; BP diastolic 60–90; PULSE 61–87; RESP 15–21; TEMP 36.7; O2SAT 94–96; BMI 65.7
--- NOTE | 2022-03-22 14:28 | HMH.EDGENADL ---
Discharge Plan Disposition Patient Disposition: Home, Self-Care Condition: Good Prescriptions Prescriptions: New benzonatate 100 mg capsule 100 mg PO BID Qty: 20 0RF No Action ipratropium-albuterol 0.5 mg-3 mg(2.5 mg base)/3 mL solution for nebulization 3 ml IH Q6H PRN (Reason: shortness of breath or wheezing) Qty: 180 10RF levofloxacin 750 mg tablet 750 mg PO DAILY 10 Days Qty: 10 0RF prednisone 20 mg tablet See Rx Instructions .ROUTE .COMPLEX Qty: 30 0RF Rx Instructions: three daily for 5 days, two daily for 5 days, one daily for 5 days ropinirole 4 mg tablet 4 mg PO DAILY Qty: 30 3RF gabapentin 100 mg capsule 100 mg PO TID PRN (Reason: pain) Qty: 90 5RF levothyroxine 150 mcg tablet See Rx Instructions .ROUTE .COMPLEX Qty: 60 10RF Dose Instruction: TAKE TWO TABLETS BY MOUTH EVERY DAY Rx Instructions: TAKE TWO TABLETS BY MOUTH EVERY DAY albuterol sulfate 90 mcg/actuation HFA aerosol inhaler 2 inh IH Q4-6H PRN (Reason: Shortness Of Breath Or Wheezing) Qty: 8.5 10RF Rx Instructions: INHALE 2 puffs BY MOUTH EVERY 4 TO 6 HOURS NEEDED FOR SHORTNESS OF BREATH OR wheezing Trelegy Ellipta 100-62.5-25 mcg blister with device 1 inh inhalation DAILY Qty: 60 2RF trazodone 150 MG tablet 1 tab PO HS Rx Instructions: TAKE ONE TABLET BY MOUTH TWICE DAILY potassium chloride 20 MEQ tablet extended release 20 meq PO DAILY lisinopril 10 MG tablet 1 tab PO DAILY Rx Instructions: TAKE ONE TABLET BY MOUTH EVERY DAY bupropion HCl 200 MG tablet sustained-release 12 hr 1 tab PO ONCE Rx Instructions: TAKE TWO TABLETS BY MOUTH EVERY DAY aripiprazole 15 MG tablet 15 mg PO HS Referrals Follow up/Referrals: Miquel Corado MD [Primary Care Provider] - See instructions Clinical Impressions Clinical Impression: Dizziness, Cough, Generalized weakness Instructions Patient Instructions: Fatigue (Alternative Therapy), DI for Cough -- Adult, Benzonatate Print Language Print Language: Chinese Discharge ED Provider: Carlos Danielson Adult HPI General Chief complaint: Upper Respiratory Infection Stated complaint: weakness Time Seen by Provider: 03/22/22 14:28 Mode of Arrival: EMS Source of Information: Patient Limitations: No Limitations History of Present Illness HPI narrative: 51-year-old female with past medical history of COPD, obstructive sleep apnea, hypertension, morbid obesity. She arrives via EMS with complaint of generalized fatigue, excessive thirst, cough productive of greenish sputum. She reports she had been diagnosed with and recovered from COVID approximately 2 weeks ago for in the interim has continued to feel worse. She has not pursued any particular treatments for the symptoms. She states she has been trying to drink excessively however urine output has been significantly decreased to once or twice a day in small amounts. She denies any overt chest pain typically although does report some discomfort when she has a coughing spell. Denies any hemoptysis, nausea, vomiting. She does report some mild epigastric and right upper quadrant pain. She has had prior cholecystectomy, as well as abdominal surgeries from prior hernias. She is having normal bowel movements, passing gas at this time. Related Data Home Medications Medication Instructions Recorded Confirmed aripiprazole 15 mg tablet 15 mg PO HS Depression 08/06/21 01/16/22 bupropion HCl 200 mg tablet,12 hr 1 tab PO ONCE Anxiety 01/06/22 01/16/22 sustained-release lisinopril 10 mg tablet 1 tab PO DAILY Hypertension 01/06/22 01/16/22 potassium chloride 20 mEq 20 meq PO DAILY Supplement 01/06/22 01/16/22 tablet,extended release trazodone 150 mg tablet 1 tab PO HS Insomnia 01/06/22 01/16/22 Previous Rx's Medication Instructions Recorded gabapentin 100 mg capsule 100 mg PO TID PRN pain #90 caps 10/17/21 ipratropium 0.5 mg-alb
--- NOTE | 2022-03-22 14:33 | PC.NURSE ---
Family at bedside
--- NOTE | 2022-03-22 14:38 | XR_ITS ---
PROCEDURE INFORMATION: Exam: XR Chest Exam date and time: 03/22/2022 3:09 PM Age: 51 years old Clinical indication: Cough and shortness of breath; Additional info: Sob/cp// status post covid 2 weeks ago TECHNIQUE: Imaging protocol: Radiologic exam of the chest. Views: 1 view. COMPARISON: CR XR CHEST 2V 01/06/2022 8:14 PM FINDINGS: Lungs: Atelectatic changes noted within both lung bases. No focal pneumonia or pneumothorax. Pleural spaces: See Lungs finding. Heart/Mediastinum: Unremarkable. No cardiomegaly. Bones/joints: Unremarkable. IMPRESSION: 1. Atelectatic changes noted within both lung bases. 2. No focal pneumonia or pneumothorax.
[2022-03-22 14:50] LABS: Basophils % 0.6 % (0.1-2.0); Chloride 99 mmol/L (98-107); Eosinophils % 0.2 % (0.1-12.0); Hematocrit 47.2 % (37.0-47.0); Lymphocytes # 1.9 K/mm3 (0.7-4.5); Lymphocytes % 37.1 % (10-50); Mean Corpuscular HGB Conc 29.7 g/dL (31.8-35.4); Mean Corpuscular Hemoglobin 28.1 pg (27.0-31.2); Mean Corpuscular Volume 94.5 fl (81-99); Mean Platelet Volume 8.7 fl (7.4-10.4); Monocytes # 0.2 K/mm3 (0.1-1.0); Monocytes % 2.9 % (1.7-9.3); Neutrophils # 3.1 K/mm3 (1.8-7.8); Neutrophils % 59.2 % (37.0-80.0); Platelet Count 266 K/mm3 (142-424); Red Cell Distribution Width 15.6 % (11.5-17.5); White Blood Count 5.2 K/mm3 (4.8-10.8)
[2022-03-22 14:51] LABS: Potassium 3.9 mmoL/L (3.5-5.1); Sodium 138 mmol/L (136-145)
[2022-03-22 14:53] LABS: Alanine Aminotransferase 30 U/L (12-78); Aspartate Amino Transferase 40 U/L (14-36); Blood Urea Nitrogen 11 mg/dl (7-17); Creatinine Clearance Estimated 67 mL/min (50-200); Estimated Glomerular Filt Rate 75 ml/min (>60); GFR (African American) 91 ML/MIN (>60)
[2022-03-22 14:54] LABS: Albumin Level 3.4 g/dl (3.5-5.0); Alkaline Phosphatase 106 U/L (38-126); Anion Gap 8.9 mEq/L (5-15); Carbon Dioxide 34 mmol/L (22.0-30.0); Globulin 3.3 g/dL (1.3-3.2); Magnesium 1.6 mg/dl (1.6-2.3); Total Protein,Serum 6.7 g/dl (6.3-8.2)
--- NOTE | 2022-03-22 14:58 | ECG_ITS ---
APPROVED REPORT Exam: Resting ECG HR:72 bpm ECG Measurements Heart Rate 72 AXES ME 150 P 65 QRSd 122 QRS -33 QT 364 T 0 QTc 389 Conclusion SINUS RHYTHM LEFT AXIS DEVIATION [QRS AXIS < -30] RIGHT BUNDLE BRANCH BLOCK [120+ ms QRS DURATION, UPRIGHT V1, 40+ ms S IN I/aVL/V4/V5/V6] ABNORMAL ECG UNCONFIRMED REPORT Electronically signed by : Fabrizio Rosales MD 03/24/2022 17:21:06
[2022-03-22 14:59] LABS: Bilirubin,Total 0.1 mg/dl (0.2-1.3)
[2022-03-22 15:00] LABS: Glucose 151 mg/dl (74-100)
[2022-03-22 15:07] LABS: Troponin I < 0.01 ng/ml (0.00-0.034)
[2022-03-22 15:23] LABS: Calcium 8.9 mg/dl (8.4-10.2)
== END 2022-03-22 17:34 | disposition home or self-care (01) ==
PROVIDERS: Emergency Provider Emergency Medicine; PCP Family Medicine
DX: R42 Dizziness and giddiness (principal); R05.9 Cough, unspecified; R53.1 Weakness; J44.9 Chronic obstructive pulmonary disease, unspecified; F17.210 Nicotine dependence, cigarettes, uncomplicated; G47.33 Obstructive sleep apnea (adult) (pediatric); I10 Essential (primary) hypertension
CPT/HCPCS: 71045; 80053; 83735; 84484; 85025; 93005; 96360; 99284

== ENCOUNTER 2022-03-24 11:03 | Emergency (ER) | payer MEDICARE, OTHER, SELFPAY ==
--- NOTE | 2022-03-24 12:29 | EXP.UTC ---
Discharge Plan Disposition Patient Disposition: Home, Self-Care Condition: Fair Prescriptions Prescriptions: New sulfamethoxazole-trimethoprim [Bactrim DS] 800-160 mg Tablet 1 tab PO BID Qty: 20 0RF cephalexin [cephalexin] 500 mg capsule 500 mg PO Q6H 10 Days Qty: 40 0RF mupirocin 2 % ointment 1 applic topical TID 7 Days Qty: 1 0RF nystatin 100,000 unit/gram cream 1 applic topical BID 14 Days Qty: 30 5RF fluconazole [Diflucan] 100 mg tablet 100 mg PO DAILY 4 Days Qty: 4 2RF No Action ipratropium-albuterol 0.5 mg-3 mg(2.5 mg base)/3 mL solution for nebulization 3 ml IH Q6H PRN (Reason: shortness of breath or wheezing) Qty: 180 10RF levofloxacin 750 mg tablet 750 mg PO DAILY 10 Days Qty: 10 0RF prednisone 20 mg tablet See Rx Instructions .ROUTE .COMPLEX Qty: 30 0RF Rx Instructions: three daily for 5 days, two daily for 5 days, one daily for 5 days ropinirole 4 mg tablet 4 mg PO DAILY Qty: 30 3RF gabapentin 100 mg capsule 100 mg PO TID PRN (Reason: pain) Qty: 90 5RF levothyroxine 150 mcg tablet See Rx Instructions .ROUTE .COMPLEX Qty: 60 10RF Dose Instruction: TAKE TWO TABLETS BY MOUTH EVERY DAY Rx Instructions: TAKE TWO TABLETS BY MOUTH EVERY DAY albuterol sulfate 90 mcg/actuation HFA aerosol inhaler 2 inh IH Q4-6H PRN (Reason: Shortness Of Breath Or Wheezing) Qty: 8.5 10RF Rx Instructions: INHALE 2 puffs BY MOUTH EVERY 4 TO 6 HOURS NEEDED FOR SHORTNESS OF BREATH OR wheezing Trelegy Ellipta 100-62.5-25 mcg blister with device See Rx Instructions .ROUTE .COMPLEX Qty: 60 3RF Dose Instruction: INHALE 1 PUFF BY MOUTH EVERY DAY Rx Instructions: INHALE 1 PUFF BY MOUTH EVERY DAY trazodone 150 MG tablet 1 tab PO HS Rx Instructions: TAKE ONE TABLET BY MOUTH TWICE DAILY potassium chloride 20 MEQ tablet extended release 20 meq PO DAILY lisinopril 10 MG tablet 1 tab PO DAILY Rx Instructions: TAKE ONE TABLET BY MOUTH EVERY DAY bupropion HCl 200 MG tablet sustained-release 12 hr 1 tab PO ONCE Rx Instructions: TAKE TWO TABLETS BY MOUTH EVERY DAY aripiprazole 15 MG tablet 15 mg PO HS benzonatate 100 mg capsule 100 mg PO BID Qty: 20 0RF prednisone 50 mg tablet 50 mg PO DAILY 5 Days Qty: 5 0RF Referrals Follow up/Referrals: Miquel Corado MD [Primary Care Provider] - See instructions Activity Restrictions/Add. Instructions Additional Instructions/Restrictions: Keep the affected area as clean and dry as you can. Follow up with your regular doctor within 24 to 48 hours. Take the antibiotics as directed and apply the topical antibiotics as directed. Apply warm wet compresses to the affected area three or four times per day. GO TO THE ER FOR ANY WORSENING SYMPTOMS Clinical Impressions Clinical Impression: Abscess of groin, right Instructions Patient Instructions: Trimethoprim/Sulfamethoxazole (Alternative Therapy), Boil, Cephalexin, Nystatin, Fluconazole Discharge ED Provider[place]an Roberson [facility] [place] General Stated complaint: infected wound on groin Time Seen by Provider: 03/24/22 12:51 History of Present Illness Provider Complaint: She is here with complaints of having a wound on her right upper inner thigh. She states that this wound has been present for the past 2 weeks. She is unable to clean herself well due to body habitus. She is concerned about the wound getting worsen. She denies that she is a diabetic. She denies fever or chills or other wounds, but she does state that she has yeast infection in her skin folds. Related Data Home Medications Medication Instructions Recorded Confirmed aripiprazole 15 mg tablet 15 mg PO HS Depression 08/06/21 01/16/22 bupropion HCl 200 mg tablet,12 hr 1 tab PO ONCE Anxiety 01/06/22 01/16/22 sustained-release lisinopril 10 mg tablet 1 tab PO DAILY Hypertension 01/06/22 01/16/22 ara
[2022-03-24 12:43] VITALS: BP 146/90; PULSE 73; RESP 16; TEMP 36.6; O2SAT 96; BMI 65.7
[2022-03-24 13:51] VITALS: BP 146/90; PULSE 73; RESP 16; TEMP 36.6
== END 2022-03-24 13:52 | disposition home or self-care (01) ==
PROVIDERS: Emergency Provider Nurse Practitioner Family; PCP Family Medicine
DX: L02.214 Cutaneous abscess of groin (principal)
CPT/HCPCS: 87070; 87077; 87186; 87205; 96372; 99212; G0463; J0696

== ENCOUNTER 2022-03-27 22:21 | Emergency (ER) | payer MEDICARE, OTHER, SELFPAY ==
--- NOTE | 2022-03-27 22:18 | ECG_ITS ---
APPROVED REPORT Exam: Resting ECG HR:77 bpm ECG Measurements Heart Rate 77 AXES NM 143 P 82 QRSd 138 QRS -44 QT 391 T 45 QTc 423 Conclusion SINUS RHYTHM LEFT AXIS DEVIATION [QRS AXIS < -30] RIGHT BUNDLE BRANCH BLOCK [120+ ms QRS DURATION, UPRIGHT V1, 40+ ms S IN I/aVL/V4/V5/V6] ABNORMAL ECG UNCONFIRMED REPORT Electronically signed by : Fabrizio Rosales MD 03/30/2022 15:28:33
[2022-03-27 22:36] VITALS: BP 136/84; PULSE 80; RESP 16; TEMP 36.6; O2SAT 94; BMI 65.7
--- NOTE | 2022-03-27 22:43 | XR_ITS ---
PROCEDURE INFORMATION: Exam: XR Chest Exam date and time: 03/27/2022 10:58 PM Age: 51 years old Clinical indication: Shortness of breath; Additional info: SOA TECHNIQUE: Imaging protocol: Radiologic exam of the chest. Views: 1 view. COMPARISON: CR XR CHEST PORTABLE 03/22/2022 3:09 PM FINDINGS: Lungs: Unremarkable. No consolidation. Pleural spaces: Unremarkable. No pleural effusion. No pneumothorax. Heart/Mediastinum: Upper limits of normal heart size. Bones/joints: Unremarkable. IMPRESSION: No acute findings.
[2022-03-27 23:07] VITALS: PULSE 79; PULSE 88
[2022-03-27 23:39] LABS: Basophils # 0.1 K/mm3 (0-0.2); Basophils % 0.9 % (0.1-2.0); Eosinophils # 0.2 K/mm3 (0.0-0.4); Eosinophils % 3.2 % (0.1-12.0); Hematocrit 43.8 % (37.0-47.0); Hemoglobin 13.5 g/dL (12.2-16.2); Lymphocytes # 1.5 K/mm3 (0.7-4.5); Lymphocytes % 27.9 % (10-50); Mean Corpuscular HGB Conc 30.8 g/dL (31.8-35.4); Mean Corpuscular Hemoglobin 28.9 pg (27.0-31.2); Mean Corpuscular Volume 93.9 fl (81-99); Mean Platelet Volume 8.5 fl (7.4-10.4); Monocytes # 0.2 K/mm3 (0.1-1.0); Monocytes % 4.1 % (1.7-9.3); Neutrophils # 3.5 K/mm3 (1.8-7.8); Neutrophils % 63.9 % (37.0-80.0); Platelet Count 293 K/mm3 (142-424); Red Blood Count 4.66 M/mm3 (4.20-5.40); Red Cell Distribution Width 15.9 % (11.5-17.5); White Blood Count 5.5 K/mm3 (4.8-10.8)
--- NOTE | 2022-03-27 23:40 | HMH.EDSOB ---
Discharge Plan Disposition Patient Disposition: Home, Self-Care Chief Complaint: Shortness of Breath/Dyspnea Prescriptions Prescriptions: No Action ipratropium-albuterol 0.5 mg-3 mg(2.5 mg base)/3 mL solution for nebulization 3 ml IH Q6H PRN (Reason: shortness of breath or wheezing) Qty: 180 10RF albuterol sulfate 90 mcg/actuation HFA aerosol inhaler 2 inh IH Q4-6H PRN (Reason: Shortness Of Breath Or Wheezing) Qty: 8.5 10RF Rx Instructions: INHALE 2 puffs BY MOUTH EVERY 4 TO 6 HOURS NEEDED FOR SHORTNESS OF BREATH OR wheezing trazodone 150 MG tablet 1 tab PO HS Rx Instructions: TAKE ONE TABLET BY MOUTH TWICE DAILY lisinopril 10 MG tablet 1 tab PO DAILY Rx Instructions: TAKE ONE TABLET BY MOUTH EVERY DAY bupropion HCl 200 MG tablet sustained-release 12 hr 1 tab PO ONCE Rx Instructions: TAKE TWO TABLETS BY MOUTH EVERY DAY levothyroxine 150 mcg tablet 300 mcg PO DAILY Rx Instructions: TAKE TWO TABLETS BY MOUTH EVERY DAY Trelegy Ellipta 100-62.5-25 mcg blister with device 1 inh inhalation DAILY Rx Instructions: INHALE 1 PUFF BY MOUTH EVERY DAY aripiprazole 15 MG tablet 15 mg PO HS benzonatate 100 mg capsule 100 mg PO BID Qty: 20 0RF Referrals Follow up/Referrals: Miquel Corado MD [Primary Care Provider] - See instructions Clinical Impressions Clinical Impression: COPD exacerbation, Hypothyroidism (acquired), Obesity Instructions Patient Instructions: DI for Chronic Obstructive Pulmonary Disease Discharge ED Provider: Nishant Mcarthur Resp/SOB HPI General Chief Complaint: Shortness of Breath/Dyspnea Stated Complaint: SOA Time Seen by Provider: 03/27/22 23:40 Mode of Arrival: EMS Source of Information: Patient, EMS and Medical Record Limitations: No Limitations Description of Symptoms (Recalled from ER Triage Doc. by RN): Per pt, she has been having chest tightness and left sided neck tightness since yesterday, denies any injury. States she also has had nausea, diarrhea, shortness of air (has taken a duoneb at 2pm and used her rescue inhaler 2 hours ago with no relief in symptoms), also c/o generalized body aches and malaise. Reports that she had covid 3 weeks ago. History of Present Illness pt with acute sob with hx of copd and possible covid-19 - pt with chest tightness with sob - MD Complaint: cough and chest pain Onset (ago): day(s) Context: recent illness Severity: moderate Relieving factors: oxygen Known history of: COPD Associated symptoms: denies other symptoms Treatment prior to arrival: oxygen and bronchodilator Related Data Home oxygen amount: 2 liters Home Medications Medication Instructions Recorded Confirmed aripiprazole 15 mg tablet 15 mg PO HS Depression 08/06/21 03/27/22 bupropion HCl 200 mg tablet,12 hr 1 tab PO ONCE Anxiety 01/06/22 03/27/22 sustained-release lisinopril 10 mg tablet 1 tab PO DAILY Hypertension 01/06/22 03/27/22 trazodone 150 mg tablet 1 tab PO HS Insomnia 01/06/22 03/27/22 fluticasone fur. 100 mcg-umeclid 1 inh inhalation DAILY COPD 03/27/22 03/27/22 62.5 mcg-vilant 25 mcg inhalat.powder (Trelegy Ellipta) levothyroxine 150 mcg tablet 300 mcg PO DAILY hypothyroidism 03/27/22 03/27/22 Previous Rx's Medication Instructions Recorded ipratropium 0.5 mg-albuterol 3 mg 3 ml inhalation Q6H PRN shortness 01/16/22 (2.5 mg base)/3 mL nebulization of breath or wheezing #180 mL soln albuterol sulfate 90 mcg/actuation 2 inh inhalation Q4-6H PRN 03/21/22 aerosol inhaler Shortness Of Breath Or Wheezing #8.5 grams benzonatate 100 mg capsule 100 mg PO BID cough #20 caps 03/22/22 Allergies Allergy/AdvReac Type Severity Reaction Status Date / Time adhesive tape [ADHESIVE TAPE] Allergy Unknown Blister Verified 03/24/22 12:56 hydromorphone [From DILAUDID] Allergy Unknown Hypotension Verified 03/24/22 12:56 nickel [NICKEL] Allergy Unknown Blister Verified 03/24/22 12:56
[2022-03-27 23:56] LABS: Alanine Aminotransferase 20 U/L (12-78); Albumin Level 3.3 g/dl (3.5-5.0); Alkaline Phosphatase 108 U/L (38-126); Anion Gap 8.1 mEq/L (5-15); Aspartate Amino Transferase 22 U/L (14-36); Bilirubin,Total < 0.1 mg/dl (0.2-1.3); Blood Urea Nitrogen 7 mg/dl (7-17); Calcium 8.8 mg/dl (8.4-10.2); Carbon Dioxide 37 mmol/L (22.0-30.0); Chloride 101 mmol/L (98-107); Creatinine Clearance Estimated 77 mL/min (50-200); Estimated Glomerular Filt Rate 88 ml/min (>60); GFR (African American) 106 ML/MIN (>60); Globulin 3.4 g/dL (1.3-3.2); Glucose 97 mg/dl (74-100); Potassium 4.1 mmoL/L (3.5-5.1); Sodium 142 mmol/L (136-145); Total Protein,Serum 6.7 g/dl (6.3-8.2)
[2022-03-28 00:04] LABS: Erythrocyte Sedimentation Rate 20 mm/hr (0-30)
[2022-03-28 00:13] LABS: Troponin I < 0.01 ng/ml (0.00-0.034)
[2022-03-28 00:15] LABS: Procalcitonin 0.036 ng/mL (0.0-2.0); T4 (Thyroxine) 5.7 ug/dl (5.53-11.0)
[2022-03-28 01:24] VITALS: BP 110/68; PULSE 78; RESP 18; TEMP 36.6; O2SAT 99
== END 2022-03-28 01:27 | disposition home or self-care (01) ==
PROVIDERS: Emergency Provider Emergency Medicine; PCP Family Medicine
DX: J44.1 Chronic obstructive pulmonary disease with (acute) exacerbation (principal); E03.9 Hypothyroidism, unspecified; E66.9 Obesity, unspecified; Z68.44 Body mass index [BMI] 60.0-69.9, adult; Z79.899 Other long term (current) drug therapy; Z88.6 Allergy status to analgesic agent; F41.9 Anxiety disorder, unspecified; F32.A Depression, unspecified; I10 Essential (primary) hypertension; G47.00 Insomnia, unspecified; Z72.0 Tobacco use
CPT/HCPCS: 71045; 80053; 84145; 84436; 84443; 84484; 85025; 85651; 86140; 93005; 94640; 96365; 96375; 99284; J2405

== ENCOUNTER 2022-03-30 22:34 | Observation (INO) | payer MEDICARE, OTHER, SELFPAY ==
[2022-03-30 23:01] VITALS: BP 150/87; PULSE 85; RESP 13; O2SAT 94
[2022-03-30 23:30] VITALS: BP 144/58; PULSE 79; RESP 32; O2SAT 95
--- NOTE | 2022-03-30 23:30 | ECG_ITS ---
APPROVED REPORT Exam: Resting ECG HR:85 bpm ECG Measurements Heart Rate 85 AXES WY 138 P 76 QRSd 130 QRS -48 QT 380 T 30 QTc 423 Conclusion SINUS RHYTHM RIGHT BUNDLE BRANCH BLOCK LEFT ANTERIOR FASCICULAR BLOCK ABNORMAL ECG UNCONFIRMED REPORT Electronically signed by : Fabrizio Rosales MD 03/31/2022 22:36:48
[2022-03-30 23:35] VITALS: BMI 65.7
--- NOTE | 2022-03-30 23:36 | XR_ITS ---
PROCEDURE INFORMATION: Exam: XR Chest Exam date and time: 03/31/2022 12:09 AM Age: 51 years old Clinical indication: Sternal or substernal pain; Additional info: Chest pain TECHNIQUE: Imaging protocol: Radiologic exam of the chest. Views: 1 view. COMPARISON: CR XR CHEST PORTABLE 03/27/2022 10:58 PM FINDINGS: Lungs: No definite focal airspace consolidation given limitation due to patient's body habitus. Pleural spaces: No pleural effusion. No pneumothorax. Heart/Mediastinum: Unremarkable cardiomediastinal silhouette. Bones/joints: No acute osseous findings. IMPRESSION: No focal consolidation.
[2022-03-30 23:45] VITALS: BP 168/103; PULSE 82; RESP 22; TEMP 36.7; O2SAT 93; BMI 65.7
[2022-03-30 23:48] LABS: Basophils # 0.1 K/mm3 (0-0.2); Basophils % 1.3 % (0.1-2.0); Eosinophils # 0.2 K/mm3 (0.0-0.4); Eosinophils % 3.1 % (0.1-12.0); Hematocrit 41.5 % (37.0-47.0); Hemoglobin 12.8 g/dL (12.2-16.2); Lymphocytes # 1.4 K/mm3 (0.7-4.5); Lymphocytes % 23.4 % (10-50); Mean Corpuscular HGB Conc 30.8 g/dL (31.8-35.4); Mean Corpuscular Volume 93.9 fl (81-99); Mean Platelet Volume 8.8 fl (7.4-10.4); Monocytes # 0.5 K/mm3 (0.1-1.0); Monocytes % 7.9 % (1.7-9.3); Neutrophils # 3.9 K/mm3 (1.8-7.8); Neutrophils % 64.3 % (37.0-80.0); Platelet Count 277 K/mm3 (142-424); Red Blood Count 4.42 M/mm3 (4.20-5.40); Red Cell Distribution Width 16.1 % (11.5-17.5); White Blood Count 6.1 K/mm3 (4.8-10.8)
[2022-03-30 23:53] LABS: Alanine Aminotransferase 17 U/L (12-78); Albumin Level 3.3 g/dl (3.5-5.0); Alkaline Phosphatase 115 U/L (38-126); Aspartate Amino Transferase 22 U/L (14-36); Blood Urea Nitrogen 10 mg/dl (7-17); Calcium 9.2 mg/dl (8.4-10.2); Chloride 96 mmol/L (98-107); Creatinine Clearance Estimated 77 mL/min (50-200); Estimated Glomerular Filt Rate 88 ml/min (>60); GFR (African American) 106 ML/MIN (>60); Globulin 3.2 g/dL (1.3-3.2); Glucose 97 mg/dl (74-100); Lactic Acid 1.5 mmol/L (0.7-2.1); Potassium 4.1 mmoL/L (3.5-5.1); Sodium 138 mmol/L (136-145); Total Protein,Serum 6.5 g/dl (6.3-8.2)
[2022-03-30 23:58] LABS: C-Reactive Protein 57.3 mg/L (0-4)
[2022-03-31] VITALS (19 sets, daily range): BP systolic 137–189; BP diastolic 62–95; PULSE 43–86; RESP 17–29; TEMP 36.6–37.1; O2SAT 88–96; BMI 72.3; BMI 72.2
[2022-03-31 00:02] LABS: Anion Gap 8.1 mEq/L (5-15); Carbon Dioxide 38 mmol/L (22.0-30.0)
[2022-03-31 00:04] LABS: NT Pro Brain Natriuretic Pep. 251 pg/mL (0-125)
[2022-03-31 00:07] LABS: Bilirubin,Total 0.1 mg/dl (0.2-1.3); Troponin I < 0.01 ng/ml (0.00-0.034)
[2022-03-31 00:11] LABS: ABG Base Excess 13.4 mmol/L (-2.4-2.3); ABG HCO3 38.5 mmhg (22.0-26.0); ABG Oxygen Saturation 94 % (90-100); ABG PH 7.38 mmol/L (7.35-7.45); ABG TCO2 40.6 mmhg (23-27)
[2022-03-31 00:12] LABS: ABG PCO2 66.3 mmhg (35.0-45.0); Allen's Test Y; Oxygen 3 %; Source Right Radial
[2022-03-31 00:12] LABS: Erythrocyte Sedimentation Rate 17 mm/hr (0-30)
--- NOTE | 2022-03-31 00:33 | HMH.EDSOB ---
Discharge Plan Disposition Patient Disposition: Admitted as Observation Chief Complaint: Shortness of Breath/Dyspnea Clinical Impressions Clinical Impression: COPD exacerbation, Hypothyroidism (acquired), Obesity Discharge ED Provider: Nishant Mcarthur Resp/SOB HPI General Chief Complaint: Shortness of Breath/Dyspnea Stated Complaint: NA AND SOA Time Seen by Provider: 03/31/22 00:33 Mode of Arrival: Wheelchair Source of Information: Patient and Medical Record Limitations: No Limitations Description of Symptoms (Recalled from ER Triage Doc. by RN): Pt c/o coa and chest pressure with upper chest pain that radiates into her ribs. States that the pain in her chest began yesterday, but soa has been going on for several days. 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 - has assoc chest pain - report inc sob with ambulation - uses tob and o2 at home MD Complaint: shortness of breath, cough and chest pain Onset (ago): day(s) Context: recent illness and occurred during exertion Severity: moderate Consistency/Duration: intermittent Relieving factors: oxygen Exacerbating factors: exertion Known history of: COPD Associated symptoms: denies other symptoms Treatment prior to arrival: oxygen and bronchodilator Related Data Home oxygen amount: 2 liters Home Medications Medication Instructions Recorded Confirmed bupropion HCl 200 mg tablet,12 hr 1 tab PO ONCE Anxiety 01/06/22 03/31/22 sustained-release lisinopril 10 mg tablet 1 tab PO DAILY Hypertension 01/06/22 03/31/22 trazodone 150 mg tablet 1 tab PO HS Insomnia 01/06/22 03/31/22 fluticasone fur. 100 mcg-umeclid 1 inh inhalation DAILY COPD 03/27/22 03/31/22 62.5 mcg-vilant 25 mcg inhalat.powder (Trelegy Ellipta) levothyroxine 150 mcg tablet 300 mcg PO DAILY hypothyroidism 03/27/22 03/31/22 Previous Rx's Medication Instructions Recorded ipratropium 0.5 mg-albuterol 3 mg 3 ml inhalation Q6H PRN shortness 01/16/22 (2.5 mg base)/3 mL nebulization of breath or wheezing #180 mL soln albuterol sulfate 90 mcg/actuation 2 inh inhalation Q4-6H PRN 03/21/22 aerosol inhaler Shortness Of Breath Or Wheezing #8.5 grams Allergies Allergy/AdvReac Type Severity Reaction Status Date / Time adhesive tape [ADHESIVE TAPE] Allergy Unknown Blister Verified 03/24/22 12:56 hydromorphone [From DILAUDID] Allergy Unknown Hypotension Verified 03/24/22 12:56 nickel [NICKEL] Allergy Unknown Blister Verified 03/24/22 12:56 PFSH PFSH Social History Smoking Status: Current every day smoker tobacco type: cigarettes packs per day: 1 second hand exposure: Yes alcohol intake: never current occupational status: unemployed Travel in the last 8 weeks: None household members: family housing: house caffeine: Yes ROS Obtained: Yes All systems reviewed & no additional complaints except as documented Constitutional Constitutional: Denies fever(s) Physical Exam General General appearance: alert and obese Head Head exam: normocephalic Eye Eye exam: Present PERRL and EOMI ENT ENT exam: Present mucous membranes moist Neck Neck exam: Present trachea midline Respiratory Respiratory exam: Present wheezes; Absent respiratory distress Cardiovascular Cardiovascular exam: Present regular rate and systolic murmur Abdominal Exam Abdominal exam: Present soft Extremities Exam Extremities exam: Present edema; Absent calf tenderness Neurological Exam Neurological exam: Present alert, oriented X3 and CN II-XII intact Psychiatric Psychiatric exam: Present normal affect Skin Skin exam: Absent rash Medical Decision Making Medical Records Medical records reviewed: Yes I reviewed the patient's medical records. [place] Inquiry Pt receiving controlled substance: No Vital Signs: 03/30/22 23:45 03/30/22 23:0
[2022-03-31 00:45] LABS: Coronavirus 19, PCR Not Detected (NotDetected); Influenza A, PCR Not Detected (NotDetected); Influenza B, PCR Not Detected (NotDetected)
--- NOTE | 2022-03-31 01:03 | PC.NURSE ---
PT ambulatory to bathroom with one assist and use of wheelchair
[2022-03-31 01:09] LABS: Microscopic, Urine URINE MICROSCOPIC (MICROSCOPIC)
[2022-03-31 01:10] LABS: Appearance,Urine CLEAR (Clear); Bilirubin,Urine Negative (Negative); Blood, Urine 2+ (Negative); Color,Urine YELLOW (Yellow); Glucose,Urine (UA) Negative (Negative); Ketones,Urine Negative (Negative); Leukocyte Esterase,Urine Negative (Negative); Nitrate,Urine Negative (Negative); PH,Urine 6.5 (5.0-8.5); Protein,Urine Negative (Negative); Urobilinogen,Urine 0.2 EU/dl (0.2)
[2022-03-31 01:12] LABS: RBC,Urine 20-50 #/hpf (0-3)
--- NOTE | 2022-03-31 02:23 | PC.NURSE ---
Pt sitting up in wheelchair for comfort. No other needs or complaints voiced at this time.
[2022-03-31 04:06] LABS: Troponin I < 0.01 ng/ml (0.00-0.034)
--- NOTE | 2022-03-31 04:29 | PC.NURSE ---
PT ARRIVED TO FLOOR VIA W/C @ [id number]
--- NOTE | 2022-03-31 05:41 | PC.WOUNDNOTE ---
Addendum entered by Milli Guzman RN 03/31/22 06:13: pics entered Original Note:
[2022-03-31 06:16] LABS: Basophils % 0.3 % (0.1-2.0); Eosinophils % 0.3 % (0.1-12.0); Hematocrit 41.7 % (37.0-47.0); Hemoglobin 12.6 g/dL (12.2-16.2); Lymphocytes # 0.7 K/mm3 (0.7-4.5); Lymphocytes % 10.4 % (10-50); Mean Corpuscular HGB Conc 30.2 g/dL (31.8-35.4); Mean Corpuscular Hemoglobin 28.7 pg (27.0-31.2); Mean Platelet Volume 8.9 fl (7.4-10.4); Monocytes # 0.1 K/mm3 (0.1-1.0); Monocytes % 1.8 % (1.7-9.3); Neutrophils # 5.4 K/mm3 (1.8-7.8); Neutrophils % 87.2 % (37.0-80.0); Platelet Count 258 K/mm3 (142-424); Red Blood Count 4.39 M/mm3 (4.20-5.40); Red Cell Distribution Width 16.1 % (11.5-17.5); White Blood Count 6.2 K/mm3 (4.8-10.8)
[2022-03-31 06:17] LABS: MANUAL DIFFERENTIAL MANUAL DIFFERENTIAL (MANUAL DIFF)
[2022-03-31 06:24] LABS: Anion Gap 5.5 mEq/L (5-15); Blood Urea Nitrogen 10 mg/dl (7-17); Calcium 8.9 mg/dl (8.4-10.2); Carbon Dioxide 38 mmol/L (22.0-30.0); Chloride 96 mmol/L (98-107); Creatinine Clearance Estimated 86 mL/min (50-200); Estimated Glomerular Filt Rate 105 ml/min (>60); GFR (African American) 127 ML/MIN (>60); Glucose 211 mg/dl (74-100); Potassium 4.5 mmoL/L (3.5-5.1); Sodium 135 mmol/L (136-145)
[2022-03-31 06:25] LABS: Hypochromasia 2+; Lymphocytes % 12 % (10-50); Neutrophils % 84 % (42-76); Platelet Estimate Normal; Total Cells Counted 100
--- NOTE | 2022-03-31 06:58 | PC.NURSE ---
Addendum entered by Milli Guzman RN 03/31/22 07:02: telemetry nsr to sinus page noted Original Note: pt admitted at 0430am, pt is sob with exertion, 02 at 2L pnc with sats 88-95%; pt is alert and oriented x4, pt with rash/irritation noted under bilateral breasts and skin folds, see wound pics, lung sounds with expiratory rhonchi and wheezes, non productive cough noted, no other issues noted at this time.
--- NOTE | 2022-03-31 07:22 | EXP.PHA.VTE ---
[facility] Pharmacy VTE Monitoring Patient Demographics Admission date: 03/31/22 Report Date: 03/31/22 Time: 07:22 Patient Allergies adhesive tape [ADHESIVE TAPE] Allergy (Unknown, Verified 03/24/22 12:56) Blister hydromorphone [From DILAUDID] Allergy (Unknown, Verified 03/24/22 12:56) Hypotension nickel [NICKEL] Allergy (Unknown, Verified 03/24/22 12:56) Blister Height: 1.6 m Weight: 185.066 kg Current Active Problems (Updated 03/31/22 @ 05:10 by Milli Guzman RN) COPD exacerbation (Acute) Hypothyroidism (acquired) (Acute) Obesity (Acute) VTE Risk Labs: VTE Related Lab Results Hgb 12.6 g/dL (12.2-16.2) 03/31/22 05:46 Hct 41.7 % (37.0-47.0) 03/31/22 05:46 Plt Count 258 K/mm3 (142-424) 03/31/22 05:46 BUN 10 mg/dl (7-17) 03/31/22 05:46 Creatinine 0.60 mg/dl (0.52-1.04) 03/31/22 05:46 Estimated Creat Clear 86 mL/min (50-200) 03/31/22 05:46 Was VTE Risk Assessment Performed: Yes VTE Score: 5 VTE Risk Level: Low Risk Prophylaxis VTE Prophylaxis Ordered?: Yes Types of VTE Prophylaxis: TEDS Knee High Location of Applied Device: Bilateral Lower Extremeties
--- NOTE | 2022-03-31 09:44 | EXP.PULM.CON ---
History of Present Illness History of present illness: Is a 51-year-old female with history of chronic hypoxic respiratory failure, asthma, possible sleep apnea however not following with sleep clinic presented to the hospital with worsening respiratory status followed by mild cough and productive phlegm. Denies any known sick contacts. Shortness of breath chronic with acute worsening. He aggravates by exertion. Relieved by taking rest. Admits symptoms at rest also. Recent diagnosis of COVID-19 pneumonia managed as an outpatient basis [facility] Medical History (Updated 03/31/22 @ 11:48 by Delfina Jean MD) Asthma Asthma exacerbation COPD (chronic obstructive pulmonary disease) History of COVID-19 Sleep apnea Surgical History (Updated 03/31/22 @ 05:10 by Milli Guzman, RN) H/O hernia repair H/O tubal ligation History of colon resection Hx of cholecystectomy Social History (Updated 03/31/22 @ 05:10 by Milli Guzman, RN) Smoking Status: Current every day smoker tobacco type: cigarettes packs per day: 1 years smoked: 38 quit status: has quit before second hand exposure: Yes Tobacco counseling given: patient declined alcohol intake: never substance use type: denies use current occupational status: unemployed Travel in the last 8 weeks: None household members: family and children housing: other lives independently: No marital status: legally number of children: 4 education level: other caffeine: Yes do you feel safe at home: Yes victim of physical abuse: No victim of emotional abuse: No victim of sexual abuse: No Review of Systems Constitutional Constitutional: Reports anorexia, Reports body ache(s) and Reports fatigue Eyes Eyes: Denies eye discharge, Denies dry eyes, Denies irritation and Denies itchy eyes ENT Ears, Nose, Mouth, and Throat: Denies epistaxis, Denies facial pain, Denies lip swelling and Denies throat swelling *Cardiovascular Cardiovascular: Reports dyspnea and Reports dyspnea on exertion *Respiratory Respiratory: Reports chest congestion, Reports cough, Reports dyspnea, Reports dyspnea on exertion, Reports excessive phlegm production and Reports wheezing *Gastrointestinal Gastrointestinal: Denies abdominal pain, Denies belching and Denies cramping *Musculoskeletal Musculoskeletal: Reports back pain, Reports myalgias and Reports other (No small joint swelling or Pain) Psychiatric Psychiatric: Denies homicidal ideation and Denies suicidal ideation Endocrine Endocrine: Reports fatigue and Denies heat intolerance Hematologic/Lymphatic Hematologic/Lymphatic: Denies easy bleeding and Denies lymphadenopathy Allergic/Immunologic Allergic/Immunologic: Denies itchy eyes, Denies lip swelling, Denies throat swelling and Reports wheezing Pulmonology Exam Inpatient Vital signs and Labs for Last 24 Hours: Temp Pulse Resp BP Pulse Ox 98.1 F 56 L 18 153/84 H 94 L 03/31/22 08:00 03/31/22 08:00 03/31/22 08:00 03/31/22 08:00 03/31/22 08:00 Laboratory Results - last 24 hr 03/30/22 22:19: WBC 6.1, RBC 4.42, Hgb 12.8, Hct 41.5, MCV 93.9, MCH 29.0, MCHC 30.8 L, RDW 16.1, Plt Count 277, MPV 8.8, Neut % (Auto) 64.3, Lymph % (Auto) 23.4, [place] % (Auto) 7.9, Eos % (Auto) 3.1, Baso % (Auto) 1.3, Neut # (Auto) 3.9, Lymph # (Auto) 1.4, [place] # (Auto) 0.5, Eos # (Auto) 0.2, Baso # (Auto) 0.1, ESR 17 03/30/22 22:19: Sodium 138, Potassium 4.1, Chloride 96 L, Carbon Dioxide 38 H, Anion Gap 8.1, BUN 10 D, Creatinine 0.70, Estimated Creat Clear 77, Estimated GFR 88, Est GFR ( Amer) 106, Glucose 97, Calcium 9.2, Total Bilirubin 0.1 L, AST 22, ALT 17, Alkaline Phosphatase 115, Troponin I < 0.01, C-Reactive Protein 57.3 H D, Total Protein 6.5, Albumin 3.3 L, Globulin 3.2, Albumin/Globulin Ratio 1.0 L, Procalcitonin 0.040 03/30/22 22:19: Lactate 1.5 03/30/22 22:19: NT-Pro-B Natriuret Pep 251 H 03/30/22 23:36: Specimen Source Right radial, O2 % 3, ABG pH 7.38,
--- NOTE | 2022-03-31 11:28 | CT_ITS ---
FINAL REPORT TECHNIQUE: Postcontrast axial images of the chest were performed in a CTA protocol. This study was performed with techniques to keep radiation doses as low as reasonably achievable, (ALARA). Individualized dose reduction technique using automated exposure control or adjustment of mA and/or kV according to the patient's size were employed. CLINICAL HISTORY: Hypoxia COMPARISON: 10/01/2019 FINDINGS: The heart is normal in size. There are borderline mediastinal lymph nodes. There is no axillary or hilar lymphadenopathy. No pericardial effusion is identified. The thoracic aorta is normal in caliber with no focal aneurysm or dissection identified. There is no filling defect to suggest pulmonary embolism. There is mild bibasilar atelectasis and small pleural effusions. The images of the upper abdomen are unremarkable. IMPRESSION: No evidence for PE on this exam. Mild bibasilar atelectasis and small pleural effusions. Reviewed, Interpreted and Dictated by Daniel Rivers III, MD Transcribed by Beti Perez Authenticated and [facility]
--- NOTE | 2022-03-31 11:41 | HMH.PHAINT1 ---
Pharmacy Intervention Comments: MEDICATION RECONCILIATION COMPLETED ON PATIENT USING EXTERNAL FILL HISTORY FROM PHARMACY. -DG YEUNG, ROCKD
--- NOTE | 2022-03-31 13:13 | PC.NURSE ---
rounded on patient. no questions or concerns in regards to plan of care. patient sitting up in bed. educated on diet, after she asked about hospital diet. was eager to be discharged. at that time was awaiting to go down for cta. no needs voiced. call light within reach, encouraged her to ring out as needed.
--- NOTE | 2022-03-31 13:33 | EXP.CARD.CON ---
History of Present Illness History of Present Illness Consult date: 03/31/22 Requesting physician: Nishant Mcarthur Consult reason: congestive heart failure Chief complaint: SOA History of present illness: This is a 48-year-old white female who presented to the emergency department with complaints of shortness of breath. The patient does have a history of chronic hypoxic respiratory failure, asthma and sleep apnea. The patient has not been compliant with her sleep apnea appointments. The patient states that she was diagnosed with COVID-pneumonia approximately 3 weeks ago. She states since that time she has had progressively worsening shortness of breath. She states that she is short of breath at home despite her oxygen saturations being normal. She states that she just felt like she could not catch her breath at all. She did have a cough associated with her shortness of breath that had some clear productive feeling. The patient says that sometimes she gets a heavy pressure sensation in her chest sometimes with shortness of breath. She states her symptoms are worsened with exertion. They improve with rest but do not completely resolve. She states that she is short of breath at rest. She denies any lower extremity edema. She denies any fever, chills, nausea, vomiting or diarrhea. She does have orthopnea and PND associated with her shortness of breath. [facility] Medical History (Updated 03/31/22 @ 13:38 by Aimee Pierre APRN) Asthma Asthma exacerbation COPD (chronic obstructive pulmonary disease) COPD (chronic obstructive pulmonary disease) Diastolic CHF, acute on chronic Elevated left ventricular end-diastolic pressure (LVEDP) History of COVID-19 HTN (hypertension) Hypothyroidism (acquired) HONEY (obstructive sleep apnea) Pulmonary hypertension Sleep apnea Tobacco abuse Surgical History (Updated 03/31/22 @ 05:10 by Milli Guzman RN) H/O hernia repair H/O tubal ligation History of colon resection Hx of cholecystectomy Social History (Updated 03/31/22 @ 05:10 by Milli Guzman RN) Smoking Status: Current every day smoker tobacco type: cigarettes packs per day: 1 years smoked: 38 quit status: has quit before second hand exposure: Yes Tobacco counseling given: patient declined alcohol intake: never substance use type: denies use current occupational status: unemployed Travel in the last 8 weeks: None household members: family and children housing: other lives independently: No marital status: legally number of children: 4 education level: other caffeine: Yes do you feel safe at home: Yes victim of physical abuse: No victim of emotional abuse: No victim of sexual abuse: No Review of Systems Review of Systems Review of systems:: pertinent systems reviewed and negative unless documented below Constitutional Constitutional: Reports system reviewed and no additional complaints, except as documented, Reports lethargy and Reports weakness Eyes Eyes: Reports system reviewed and no additional complaints, except as documented ENT Ears, Nose, Mouth, and Throat: Reports system reviewed and no additional complaints, except as documented *Cardiovascular Cardiovascular: Reports system reviewed and no additional complaints, except as documented, Reports as per HPI, Reports chest pain, Reports dyspnea and Reports dyspnea on exertion *Respiratory Respiratory: Reports system reviewed and no additional complaints, except as documented, Reports as per HPI, Reports chest congestion, Reports dyspnea, Reports dyspnea on exertion and Reports excessive phlegm production *Gastrointestinal Gastrointestinal: Reports system reviewed and no additional complaints, except as documented *Musculoskeletal Musculoskeletal: Reports system reviewed and no additional complaints, except as documented Integumentary/Breasts Skin/Breast: Reports system reviewed and no additional complaints, except as docum
--- NOTE | 2022-03-31 13:58 | CA_ITS ---
APPROVED REPORT EXAM: Comprehensive 2D, Doppler, and color-flow Echocardiogram Floor Layer: Margaux Dickens CRT Ht: 5 ft 2 in Wt: 408lbs BSA: 2.59 BP: 154/85 mmHg Indications: COPD, Shortness of Breath, Obesity, SMOKER, POST COVID 1 MONTH AGO Limited images due to obesity. M-Mode Dimensions LA Diam 3.75 cm (1.9-4.0) LVDd 5.44 cm (3.5-5.7) Ao Diam 3.47 cm (2.0-3.7) LVDs 3.82 cm (3.5-5.7) IVSd 1.44 cm (0.6-1.1) PWd 0.00 cm (0.6-1.1) EF (Teich) 56.40% FS 29.80% EDV (Teich) 143.70 mL ESV (Teich) 62.70 mL LV Diastology E Decel Time 177.00 (160-240 msec) E/A Ratio 1.31 MED E' 6.20 (< 7 cm/sec) MED A' 5.60 cm/s E'/MED E' Ratio 20.08 (>14) LAT E' 7.80 (<10 cm/sec) LAT A' 10.20 cm/s E/LAT E' Ratio 15.96 (>14) Aortic Valve AO Peak GR. 6.10 mmHg Mitral Valve MV A Velocity 95.00 (40-130 cm/s) E/A Ratio 1.31 MV Decel. Time 177.00 (160-240 ms) Pulmonary Valve PV Peak Velocity 94.00 (50-150 cm/s) Tricuspid Valve TR P. Velocity 230.00 cm/s RAP Estimate 10.00 mmHg RVSP 31.20 mmHg Left Ventricle Technically difficult study because of the patient factors and poor acoustic windows. Left atrium is mildly enlarged, left ventricle is normal size mild concentric left ventricular hypertrophy, estimated ejection fraction 55% with no regional wall motion abnormality, diastolic parameters are inconclusive. Right Ventricle Right atrium and right ventricle are mildly enlarged with normal contractility. Aortic Valve Aortic valve is minimally thickened and fibrosed there is no aortic stenosis or aortic insufficiency. Mitral Valve Mitral valve leaflets are minimally thickened, there is mild mitral regurgitation. Tricuspid Valve Tricuspid valve grossly normal, there is mild tricuspid regurgitation, tricuspid regurgitation jet velocity is inadequate for calculation of the right ventricular systolic pressure. Pulmonic Valve Pulmonic valve is poorly visualized. Great Vessels Aortic root is normal size. Inferior vena cava is poorly visualized. Pericardium No significant pericardial effusion noted. Conclusion 1. Technically difficult study because of the patient factors and poor acoustic windows. 2. Mild biatrial enlargement, normal left ventricular size, mild concentric left ventricular hypertrophy, estimated ejection fraction 55% with no regional wall motion abnormality, diastolic parameters are inconclusive. 3. Mild mitral and tricuspid regurgitation. 4. No significant pericardial effusion. 5. Inferior vena cava is poorly visualized. Electronically signed by : Yury Tim MD 03/31/2022 20:44:55
--- NOTE | 2022-03-31 16:20 | EXP.HP ---
History of Present Illness *Admission Date: 03/31/22 *Reason for visit:: sob *History of present illness: this patient presented to the ed- pt with progressive sob over the last week -has failed out pt care and has dec adl and ambulation sec to sob - has cough - pt admitted for eval and treatment - [facility] Medical History (Updated 03/31/22 @ 13:38 by Aimee Pierre APRN) Asthma Asthma exacerbation COPD (chronic obstructive pulmonary disease) COPD (chronic obstructive pulmonary disease) Diastolic CHF, acute on chronic Elevated left ventricular end-diastolic pressure (LVEDP) History of COVID-19 HTN (hypertension) Hypothyroidism (acquired) HONEY (obstructive sleep apnea) Pulmonary hypertension Sleep apnea Tobacco abuse Surgical History (Updated 03/31/22 @ 05:10 by Milli Guzman RN) H/O hernia repair H/O tubal ligation History of colon resection Hx of cholecystectomy Social History (Updated 03/31/22 @ 05:10 by Milli Guzman RN) Smoking Status: Current every day smoker tobacco type: cigarettes packs per day: 1 years smoked: 38 quit status: has quit before second hand exposure: Yes Tobacco counseling given: patient declined alcohol intake: never substance use type: denies use current occupational status: unemployed Travel in the last 8 weeks: None household members: family and children housing: other lives independently: No marital status: legally number of children: 4 education level: other caffeine: Yes do you feel safe at home: Yes victim of physical abuse: No victim of emotional abuse: No victim of sexual abuse: No Review of Systems Review of Systems Review of systems:: pertinent systems reviewed and negative unless documented below Constitutional Constitutional: Reports weakness Eyes Eyes: Denies change in vision ENT Ears, Nose, Mouth, and Throat: Denies neck pain *Cardiovascular Cardiovascular: Denies chest pain with activity and Reports dyspnea *Respiratory Respiratory: Reports cough and Reports dyspnea *Gastrointestinal Gastrointestinal: Denies coffee ground emesis *Genitourinary Genitourinary: Denies dysuria *Musculoskeletal Musculoskeletal: Denies neck pain *Neurologic Neurologic: Reports system reviewed and no additional complaints, except as documented and Reports weakness Meds Home Medications and Allergies Home Medications Medication Instructions Recorded Confirmed Type bupropion HCl 200 mg tablet,12 hr 400 mg PO DAILY Anxiety 01/06/22 03/31/22 History sustained-release lisinopril 10 mg tablet 10 mg PO DAILY Hypertension 01/06/22 03/31/22 History trazodone 150 mg tablet 150 mg PO BID MOOD 01/06/22 03/31/22 History albuterol sulfate 90 mcg/actuation 2 inh inhalation Q4-6H PRN 03/21/22 03/31/22 Rx aerosol inhaler Shortness Of Breath Or Wheezing #8.5 grams fluticasone fur. 100 mcg-umeclid 1 inh inhalation DAILY COPD 03/27/22 03/31/22 History 62.5 mcg-vilant 25 mcg inhalat.powder (Trelegy Ellipta) levothyroxine 150 mcg tablet 300 mcg PO DAILY hypothyroidism 03/27/22 03/31/22 History gabapentin 100 mg capsule 100 mg PO TIDP PRN Pain 03/31/22 03/31/22 History ropinirole 4 mg tablet 4 mg PO DAILY RESTLESS LEG 03/31/22 03/31/22 History nystatin 100,000 unit/gram topical 1 applic topical BID Infection 04/01/22 04/01/22 History cream New Prescriptions to Start Prescriptions: Allergies Allergy/AdvReac Type Severity Reaction Status Date / Time adhesive tape [ADHESIVE TAPE] Allergy Unknown Blister Verified 03/24/22 12:56 hydromorphone [From DILAUDID] Allergy Unknown Hypotension Verified 03/24/22 12:56 nickel [NICKEL] Allergy Unknown Blister Verified 03/24/22 12:56 Exam Data for Last 24 hours Vital signs and Labs for Last 24 Hours: Temp Pulse Resp BP Pulse Ox 98.6 F 82 17 188/95 H 93 L 03/31/22 15:02 03/31/22 15:07 03/31/22 15:02 03/31/22 15:02 03/31/22 15:02 Laboratory Results - l
--- NOTE | 2022-03-31 18:04 | PC.NURSE ---
Patient stated she wanted Dr. Corado to be paged about possibly discharging her as her son was already here visiting another patient. She stated her son would not be able to pick her up tomorrow if she were to wait and be discharged until around 1900. Explained to patient the risk factors of her leaving and that she could stay tomorrow until her son could pick her up with no problems. Patient still adament about paging Dr. Corado. Dr. Corado paged and stated she would have to leave [facility] because he was not going to discharge her tonight.
[2022-04-01] VITALS (12 sets, daily range): BP systolic 138–154; BP diastolic 56–77; PULSE 44–80; RESP 14–26; TEMP 36.4–37; O2SAT 92–96
--- NOTE | 2022-04-01 04:29 | PC.NURSE ---
no acute changes since previous assessment. pt has rested well this shift. she has been up to the chair majority of the night and says she sleeps better in the recliner than the bed. pt has not complained of pain this shift. O2 sats have remained >90% on 2L NC. CB in reach
[2022-04-01 06:50] LABS: Basophils % 0.4 % (0.1-2.0); Eosinophils % 0.4 % (0.1-12.0); Hematocrit 40.2 % (37.0-47.0); Hemoglobin 11.9 g/dL (12.2-16.2); Lymphocytes # 0.7 K/mm3 (0.7-4.5); Lymphocytes % 12.6 % (10-50); Mean Corpuscular HGB Conc 29.7 g/dL (31.8-35.4); Mean Corpuscular Hemoglobin 28.7 pg (27.0-31.2); Mean Corpuscular Volume 96.7 fl (81-99); Mean Platelet Volume 9.5 fl (7.4-10.4); Monocytes # 0.3 K/mm3 (0.1-1.0); Monocytes % 4.6 % (1.7-9.3); Neutrophils # 4.8 K/mm3 (1.8-7.8); Neutrophils % 81.9 % (37.0-80.0); Platelet Count 250 K/mm3 (142-424); Red Blood Count 4.16 M/mm3 (4.20-5.40); Red Cell Distribution Width 16.1 % (11.5-17.5); White Blood Count 5.9 K/mm3 (4.8-10.8)
[2022-04-01 06:58] LABS: Anion Gap 10.7 mEq/L (5-15); Blood Urea Nitrogen 13 mg/dl (7-17); Calcium 9.2 mg/dl (8.4-10.2); Carbon Dioxide 39 mmol/L (22.0-30.0); Chloride 89 mmol/L (98-107); Creatinine Clearance Estimated 74 mL/min (50-200); Estimated Glomerular Filt Rate 88 ml/min (>60); GFR (African American) 106 ML/MIN (>60); Glucose 300 mg/dl (74-100); Potassium 4.7 mmoL/L (3.5-5.1); Sodium 134 mmol/L (136-145)
--- NOTE | 2022-04-01 09:26 | EXP.PULM.PN ---
Subjective *Date: 04/02/22 *Time: 09:48 Interval history: No acute respiratory events overnight. Meds continued improvement in symptoms. Still complains of cough and productive phlegm, improving. No subjective fevers. Pulmonology Exam Inpatient Vital signs and Labs for Last 24 Hours: Temp Pulse Resp BP Pulse Ox 97.8 F 64 16 147/76 H 92 L 04/01/22 08:00 04/01/22 08:00 04/01/22 08:00 04/01/22 08:00 04/01/22 08:00 Laboratory Results - last 24 hr 04/01/22 06:11: WBC 5.9, RBC 4.16 L, Hgb 11.9 L, Hct 40.2, MCV 96.7, MCH 28.7, MCHC 29.7 L, RDW 16.1, Plt Count 250, MPV 9.5, Neut % (Auto) 81.9 H, Lymph % (Auto) 12.6, [place] % (Auto) 4.6, Eos % (Auto) 0.4, Baso % (Auto) 0.4, Neut # (Auto) 4.8, Lymph # (Auto) 0.7, [place] # (Auto) 0.3, Eos # (Auto) 0.0, Baso # (Auto) 0.0 04/01/22 06:11: Sodium 134 L, Potassium 4.7, Chloride 89 L, Carbon Dioxide 39 H, Anion Gap 10.7, BUN 13 D, Creatinine 0.70, Estimated Creat Clear 74, Estimated GFR 88, Est GFR ( Amer) 106, Glucose 300 H, Calcium 9.2 I & O for Labs for Last 24 Hours: Intake & Output 03/29/22 03/30/22 03/31/22 04/01/22 23:59 23:59 23:59 23:59 Intake Total 1554 / 1776 222 / 222 Output Total 4175 / 4175 1800 / 1800 Balance -2621 / -2399 -1578 / -1578 Weight 371 lb 407 lb 13.683 oz Constitutional: Present severe distress Head: Present normocephalic and atraumatic ENT: Present normal exam, normal oropharynx and mucous membranes moist Neck: Present normal inspection and full ROM Respiratory: Present respiratory distress, wheezes and crackles; Absent able to speak in complete sentences Cardiac: Present S1/S2, Tachycardia and radial pulses present GI: Present soft and distention; Absent tenderness or guarding Rectal (female): Present deferred (female): Present deferred Skin: Present intact; Absent cyanosis or jaundice Neuro: Present alert, awake and oriented x 3 Extremities: Present normal inspection and edema; Absent clubbing or cyanosis Psychiatric: Present normal affect and cooperative Assessment and Plan *Assessment and plan (1) Respiratory failure, [id number]: Status: Acute Qualifiers: Respiratory failure complication: hypoxia and hypercapnia Qualified Code(s): J96.21 - Acute and chronic respiratory failure with hypoxia; J96.22 - Acute and chronic respiratory failure with hypercapnia Category: Medical Code(s): J96.20 - Acute and chronic respiratory failure, unspecified whether with hypoxia or hypercapnia (2) Acute exacerbation of chronic obstructive airways disease: Status: Acute Category: Medical Code(s): J44.1 - Chronic obstructive pulmonary disease with (acute) exacerbation Plan #COPD a exacerbation: #Acute hypoxic respiratory failure: Greater than [id number] smoking history. Asthma COPD overlap syndrome. Last seen in clinic in July 2021. On trelegy Inhaler. She also carries a diagnosis of sleep apnea however appeared to be not following with sleep clinic. Presented to the hospital with subacute worsening respiratory distress associated with only minimal cough and productive phlegm. Recently diagnosed with COVID-19 pneumonia 3 weeks ago managed as an outpatient basis. No evidence of leukocytosis on this admission. Eosinophil counts of 0. ABG on admission normal pH with evidence of increased PCO2 66.3 and PO2 at 69.0 COVID-19 flu PCR negative. Chest x-ray poorly penetrated. Cannot completely rule out airspace disease. Less likely to be having effusions. Was initiated on levofloxacin and steroids and neb treatments. Interval update: No acute respiratory vents overnight. CTA revealed no evidence of pulm embolism, bilateral pleural effusions right greater than left along with right lower lobe wedge shaped atelectasis/airspace disease. Continue to receive diuresis. Overall improving respiratory status. Plan: -Levofloxacin, 750 mg IV daily -Change nebs to every 6 hours. Wean steroids to prednisone
--- NOTE | 2022-04-01 09:41 | PC.NURSE ---
Patient stated she wanted to leave AMA because her dog was at home panicking without her. Patient had stated earlier she wasn't comfortable and bariatric bed was found and planned to move patient to room 210. Patient was agreeable at first but then decided she still wanted to leave AMA. Charge nurse notified, John Armas APRN notified, as well as Aimee Pierre and Ev You. Patient stated to Aimee she had a ride on the way and would be leaving.
--- NOTE | 2022-04-01 09:45 | P.PN_ITS ---
Subjective *Date: 04/01/22 *Time: 19:47 Interval history: 51-year-old female patient sitting up in recliner, O2 at 4 L per nasal cannula with oxygen saturations at 94%. Patient reports she is uncomfortable in bed and is fairly comfortable in recliner. Discussed with staff we will transfer her to a larger bed. Patient request to be discharged, explained to patient need to stay in hospital to receive guaranteed diuretics and diuretics in the hospital are IV Medical Exam Vital signs and Labs for Last 24 Hours: Temp Pulse Resp BP Pulse Ox 98.6 F 71 18 150/77 H 95 04/01/22 16:00 04/01/22 18:33 04/01/22 16:00 04/01/22 16:00 04/01/22 16:00 Laboratory Results - last 24 hr 04/01/22 06:11: WBC 5.9, RBC 4.16 L, Hgb 11.9 L, Hct 40.2, MCV 96.7, MCH 28.7, MCHC 29.7 L, RDW 16.1, Plt Count 250, MPV 9.5, Neut % (Auto) 81.9 H, Lymph % (Auto) 12.6, [place] % (Auto) 4.6, Eos % (Auto) 0.4, Baso % (Auto) 0.4, Neut # (Auto) 4.8, Lymph # (Auto) 0.7, [place] # (Auto) 0.3, Eos # (Auto) 0.0, Baso # (Auto) 0.0 04/01/22 06:11: Sodium 134 L, Potassium 4.7, Chloride 89 L, Carbon Dioxide 39 H, Anion Gap 10.7, BUN 13 D, Creatinine 0.70, Estimated Creat Clear 74, Estimated GFR 88, Est GFR ( Amer) 106, Glucose 300 H, Calcium 9.2 I & O for Labs for Last 24 Hours: Intake & Output 03/29/22 03/30/22 03/31/22 04/01/22 23:59 23:59 23:59 23:59 Intake Total 1554 / 1776 1332 / 1332 Output Total 4175 / 4175 6900 / 6900 Balance -2621 / -2697 -5694 / -9728 Weight 371 lb 407 lb 13.683 oz Head: Present atraumatic Eyes: Present as per HPI ENT: Present normal exam Neck: Present full ROM and trachea midline; Absent tenderness Respiratory: Present accessory muscle use, wheezes and crackles Cardiac: Present Reg Rate and Rhythm GI: Present soft, guarding and normal bowel sounds; Absent tenderness Extremities: Present full ROM and edema; Absent calf tenderness Skin: Present intact and dry; Absent cyanosis Neuro: Present Motor Function Intact and oriented x 3; Absent Numbness or Weakne ss Assessment and Plan Assessment and plan all Dx Assessment and Plan All Dx:: 1. Wean O2 as tolerated 2. Cardiology following 3. Pulmonology is following
--- NOTE | 2022-04-01 09:51 | EXP.CARD.PN ---
Subjective Subjective Date: 04/01/22 Time: 09:51 Principal diagnosis: Diastolic chf, pulmon htn Interval history: This is a 51-year-old white female who presented to the emergency department complaints of shortness of breath. The patient has a history of chronic hypoxic respiratory failure, asthma and sleep apnea. She also has known diastolic dysfunction and pulmonary hypertension. The patient has been noncompliant with her diuretics at home. The patient states that she had stopped taking them because she could not make it to the bathroom in time. The patient has been started on IV diuresis here at the hospital and she did diurese well overnight with a -4939 fluid balance overnight. This morning she states that she is breathing 100% better. She states that she no longer feels short of breath at rest like she did prior to coming into the hospital. She denies any chest pain or pressure. She denies any lower extremity edema. She denies any fever, chills, nausea, vomiting or diarrhea. Exam Data for Last 24 hours Vital signs and Labs for Last 24 Hours: Temp Pulse Resp BP Pulse Ox 97.8 F 64 16 147/76 H 92 L 04/01/22 08:00 04/01/22 08:00 04/01/22 08:00 04/01/22 08:00 04/01/22 08:00 Laboratory Results - last 24 hr 04/01/22 06:11: WBC 5.9, RBC 4.16 L, Hgb 11.9 L, Hct 40.2, MCV 96.7, MCH 28.7, MCHC 29.7 L, RDW 16.1, Plt Count 250, MPV 9.5, Neut % (Auto) 81.9 H, Lymph % (Auto) 12.6, [place] % (Auto) 4.6, Eos % (Auto) 0.4, Baso % (Auto) 0.4, Neut # (Auto) 4.8, Lymph # (Auto) 0.7, [place] # (Auto) 0.3, Eos # (Auto) 0.0, Baso # (Auto) 0.0 04/01/22 06:11: Sodium 134 L, Potassium 4.7, Chloride 89 L, Carbon Dioxide 39 H, Anion Gap 10.7, BUN 13 D, Creatinine 0.70, Estimated Creat Clear 74, Estimated GFR 88, Est GFR ( Amer) 106, Glucose 300 H, Calcium 9.2 I & O for Last 24 hours: Intake & Output 03/29/22 03/30/22 03/31/22 04/01/22 23:59 23:59 23:59 23:59 Intake Total 1554 / 1776 222 / 222 Output Total 4175 / 4175 2300 / 2300 Balance -2621 / -2399 -2078 / -2078 Weight 371 lb 407 lb 13.683 oz Radiology Reports for the Last 24 Hours: Echocardiogram shows: 1.? Technically difficult study because of the patient factors and poor acoustic windows. 2.? Mild biatrial enlargement, normal left ventricular size, mild concentric left ventricular hypertrophy, estimated ejection fraction 55% with no regional wall motion abnormality, diastolic parameters are inconclusive. 3.? Mild mitral and tricuspid regurgitation. 4.? No significant pericardial effusion. 5.? Inferior vena cava is poorly visualized. CTA of the chest shows: No evidence for PE on this exam.? Mild bibasilar atelectasis and small pleural effusions. Constitutional Constitutional: no acute distress and morbidly obese *Routine HEENT Exam Head: Present normocephalic and atraumatic ENT: Present mucous membranes moist *Routine Neck Exam Neck: Present supple, full ROM and normal carotid upstroke; Absent JVD, carotid bruit or lymphadenopathy *Routine Respiratory Exam Respiratory: Present CTA bilaterally, normal respiratory effort, able to speak in complete sentences and symmetric chest movement *Routine Cardiovascular Exam Cardiovascular: Present RRR, Normal S1 and Normal S2; Absent murmur or gallop *Routine Abdominal Exam Abdominal: Present soft, normoactive bowel sounds and obese (Morbidly obese abdomen); Absent tenderness, distended or organomegaly *Routine Extremities Exam Extremities: Present full ROM, pulses intact and normal capillary refill; Absent cyanosis, clubbing or edema *Routine Skin Exam Skin: Present intact and warm; Absent erythema *Routine Neurological Exam Neurological: Present alert, oriented X3 and CN II-XII intact; Absent sensory deficit or motor deficit Routine Psychiatric Exam Psychiatric: Present normal affect Progress Note: A&P Assessment and plan (1) Diastolic CHF, acute on chronic: Status: Acute (2) Pulmonary hypertension: Status:
--- NOTE | 2022-04-01 14:38 | PC.NURSE ---
rounded on patient. patient is sitting up in chair. requested snack and drink which was obtained for patient. antibiotic finished so iv flushed at that time. she has no questions concerns or complaints at this time. no other needs. encouraged her to ring out as needed.
--- NOTE | 2022-04-01 15:53 | PC.NURSE ---
VS stable. Patient given IV lasix and diuresing well. Patient remains on 2LNC and doesn't feel as short of breath on exertion. Lungs upon auscultation exhibit fine crackles and sound better than the day before. Patient agreed to stay another night after family refused to take her home until she was discharged. No other complaints noted.
[2022-04-02] VITALS: BP 136/73; PULSE 83; PULSE 90; RESP 22; TEMP 36.6; O2SAT 93
[2022-04-02 03:46] VITALS: BP 143/71; PULSE 81; RESP 20; TEMP 36.4; O2SAT 93
[2022-04-02 04:00] VITALS: PULSE 80
--- NOTE | 2022-04-02 04:23 | PC.NURSE ---
pt has had no complaints this shift. she remains on 2L NC and has tolerated well. expiratory wheezing auscultated on assessment. pt denies any CP or SOA. O2 sats 93%
[2022-04-02 06:01] VITALS: PULSE 67; PULSE 69; O2SAT 95
[2022-04-02 07:11] LABS: Blood Urea Nitrogen 20 mg/dl (7-17); Calcium 9.2 mg/dl (8.4-10.2); Chloride 89 mmol/L (98-107); Creatinine Clearance Estimated 64 mL/min (50-200); Estimated Glomerular Filt Rate 75 ml/min (>60); GFR (African American) 91 ML/MIN (>60); Glucose 108 mg/dl (74-100); Sodium 135 mmol/L (136-145)
[2022-04-02 07:30] LABS: Carbon Dioxide 43 mmol/L (22.0-30.0)
[2022-04-02 08:00] VITALS: BP 132/71; PULSE 74; RESP 18; TEMP 36.7; O2SAT 94; O2SAT 95
--- NOTE | 2022-04-02 09:15 | SW/DCPLANNER ---
Addendum entered by Juanita Birch 04/02/22 11:28: Janet tai/ [facility] stated they can accept this patient for services. Original Note: The plan for this patient is to return home today. Patient is agreeable to home health services: patient information/order will be faxed to [facility]. Patient stated that she used to have a CPAP but is currently broke. Vivien tai/ [facility] stated that if family dropped device off they could work on it: informed patient and she stated that due to it being broke she threw it away. I have made MD aware of situation. I will follow up with [facility] once patient information/order is reviewed.
--- NOTE | 2022-04-02 09:26 | EXP.CARD.PN ---
Subjective Subjective Date: 04/02/22 Time: 08:30 Principal diagnosis: Diastolic chf, pulmon htn Interval history: This is a 51-year-old white female who presented to the emergency department with complaints of shortness of breath. The patient has been getting IV diuresis for an acute exacerbation of diastolic congestive heart failure. The patient does have a -7968 fluid balance overnight. She states that she is feeling much better. She states her shortness of breath has resolved. She denies lower extremity edema. She denies chest pain or pressure. She denies any fever, chills, nausea, vomiting or diarrhea. The patient states that she is ready to be discharged home today. Exam Data for Last 24 hours Vital signs and Labs for Last 24 Hours: Temp Pulse Resp BP Pulse Ox 98.0 F 74 18 132/71 94 L 04/02/22 08:00 04/02/22 08:00 04/02/22 08:00 04/02/22 08:00 04/02/22 08:00 Laboratory Results - last 24 hr 04/02/22 06:25: Sodium 135 L, Potassium 4.0, Chloride 89 L, Carbon Dioxide 43 H*, Anion Gap 7.0, BUN 20 H D, Creatinine 0.80, Estimated Creat Clear 64, Estimated GFR 75, Est GFR ( Amer) 91, Glucose 108 H, Calcium 9.2 I & O for Last 24 hours: Intake & Output 03/30/22 03/31/22 04/01/22 04/02/22 23:59 23:59 23:59 23:59 Intake Total 1554 / 1776 1554 / 1554 600 / 600 Output Total 4175 / 4175 37959 / 73597 1600 / 1600 Balance -2621 / -2399 -8546 / -8546 -1000 / -1000 Weight 371 lb 407 lb 13.683 oz Microbiology Reports for the Last 24 Hours: Microbiology 03/30/22 22:19 Blood Blood Culture - Preliminary NO GROWTH AFTER 48 HOURS 03/30/22 22:19 Blood Blood Culture - Preliminary NO GROWTH AFTER 48 HOURS Constitutional Constitutional: no acute distress and morbidly obese *Routine HEENT Exam Head: Present normocephalic and atraumatic ENT: Present mucous membranes moist *Routine Neck Exam Neck: Present supple, full ROM and normal carotid upstroke; Absent JVD, carotid bruit or lymphadenopathy *Routine Respiratory Exam Respiratory: Present CTA bilaterally, normal respiratory effort, able to speak in complete sentences and symmetric chest movement *Routine Cardiovascular Exam Cardiovascular: Present RRR, Normal S1 and Normal S2; Absent murmur or gallop *Routine Abdominal Exam Abdominal: Present soft, normoactive bowel sounds and obese (Morbidly obese abdomen); Absent tenderness, distended or organomegaly *Routine Extremities Exam Extremities: Present full ROM, pulses intact and normal capillary refill; Absent cyanosis, clubbing or edema *Routine Skin Exam Skin: Present intact and warm; Absent erythema *Routine Neurological Exam Neurological: Present alert, oriented X3 and CN II-XII intact; Absent sensory deficit or motor deficit Routine Psychiatric Exam Psychiatric: Present normal affect Progress Note: A&P Assessment and plan (1) Diastolic CHF, acute on chronic: Status: Acute (2) Pulmonary hypertension: Status: Acute (3) Elevated left ventricular end-diastolic pressure (LVEDP): Status: Acute (4) Tobacco abuse: Status: Acute (5) Hypothyroidism (acquired): Status: Acute (6) COPD (chronic obstructive pulmonary disease): Status: Acute (7) HONEY (obstructive sleep apnea): Status: Acute Assessment and Plan Assessment and Plan for All Diagnoses:: Plan: 1. The patient was mated to the hospital with an acute exacerbation of diastolic congestive heart failure. The patient is getting treated with IV Lasix. She had a -7968 fluid balance overnight last night. We will stop IV Lasix and switch her over to oral Lasix today. 2. The patient also has chronic hypoxic respiratory failure with known COPD and obstructive sleep apnea. The patient has been noncompliant with her obstructive sleep apnea at home. Will defer management of her COPD to pulmonology and her primary care team. 3. The patient also had not be
--- NOTE | 2022-04-02 09:48 | EXP.PULM.PN ---
Subjective *Date: 04/02/22 *Time: 11:42 Interval history: No acute respiratory vents overnight. Continue symptoms of respiratory distress. Wheezing improving. Admits cough with productive phlegm improving Pulmonology Exam Inpatient Vital signs and Labs for Last 24 Hours: Temp Pulse Resp BP Pulse Ox 98.0 F 74 18 132/71 94 L 04/02/22 08:00 04/02/22 08:00 04/02/22 08:00 04/02/22 08:00 04/02/22 08:00 Laboratory Results - last 24 hr 04/02/22 06:25: Sodium 135 L, Potassium 4.0, Chloride 89 L, Carbon Dioxide 43 H*, Anion Gap 7.0, BUN 20 H D, Creatinine 0.80, Estimated Creat Clear 64, Estimated GFR 75, Est GFR ( Amer) 91, Glucose 108 H, Calcium 9.2 I & O for Labs for Last 24 Hours: Intake & Output 03/30/22 03/31/22 04/01/22 04/02/22 23:59 23:59 23:59 23:59 Intake Total 1554 / 1776 1554 / 1554 600 / 600 Output Total 4175 / 4175 21624 / 27116 1600 / 1600 Balance -2621 / -2399 -8546 / -8546 -1000 / -1000 Weight 371 lb 407 lb 13.683 oz Microbiology Reports for the Last 24 Hours: Microbiology 03/30/22 22:19 Blood Blood Culture - Preliminary NO GROWTH AFTER 48 HOURS 03/30/22 22:19 Blood Blood Culture - Preliminary NO GROWTH AFTER 48 HOURS Constitutional: Present severe distress Head: Present normocephalic and atraumatic ENT: Present normal exam, normal oropharynx and mucous membranes moist Neck: Present normal inspection and full ROM Respiratory: Present able to speak in complete sentences; Absent respiratory distress or wheezes Cardiac: Present S1/S2, Tachycardia and radial pulses present GI: Present soft and distention; Absent tenderness or guarding Rectal (female): Present deferred (female): Present deferred Skin: Present intact; Absent cyanosis or jaundice Neuro: Present alert, awake and oriented x 3 Extremities: Present normal inspection and edema; Absent clubbing or cyanosis Psychiatric: Present normal affect and cooperative Assessment and Plan *Assessment and plan (1) Respiratory failure, [id number]: Status: Acute Qualifiers: Respiratory failure complication: hypoxia and hypercapnia Qualified Code(s): J96.21 - Acute and chronic respiratory failure with hypoxia; J96.22 - Acute and chronic respiratory failure with hypercapnia Category: Medical Code(s): J96.20 - Acute and chronic respiratory failure, unspecified whether with hypoxia or hypercapnia (2) Acute exacerbation of chronic obstructive airways disease: Status: Acute Category: Medical Code(s): J44.1 - Chronic obstructive pulmonary disease with (acute) exacerbation Plan #COPD a exacerbation: #Acute hypoxic respiratory failure: Greater than 13-cgca-agyl smoking history. Asthma COPD overlap syndrome. Last seen in clinic in July 2021. On trelegy Inhaler. She also carries a diagnosis of sleep apnea however appeared to be not following with sleep clinic. Presented to the hospital with subacute worsening respiratory distress associated with only minimal cough and productive phlegm. Recently diagnosed with COVID-19 pneumonia 3 weeks ago managed as an outpatient basis. No evidence of leukocytosis on this admission. Eosinophil counts of 0. ABG on admission normal pH with evidence of increased PCO2 66.3 and PO2 at 69.0 COVID-19 flu PCR negative. Chest x-ray poorly penetrated. Cannot completely rule out airspace disease. Less likely to be having effusions. Patient continued to receive levofloxacin, steroids and ambulation therapies. CTA revealed no evidence of pulm embolism, bilateral pleural effusions right greater than left along with right lower lobe wedge shaped atelectasis/airspace disease. Respiratory status continued to improve Plan: -Continue incentive spirometry -Levofloxacin, 750 mg IV daily x 5 days -Initiate Trelegy 100 inhaler and the DuoNebs every 6 hours and -Prednisone 40 mg daily x 5 days -Follow with cardi
--- NOTE | 2022-04-02 10:04 | CARE MANAGER ---
Patient needs bedside commode as she has acute on chronic CHF, she takes daily diuretics and because of her size, she needs a heavy duty bedside commode because she cannot make it to the restroom in time.
[2022-04-02 11:07] VITALS: BP 136/66; PULSE 72; RESP 17; TEMP 36.4; O2SAT 95
--- NOTE | 2022-04-02 11:55 | EXP.DC.SUM ---
General Admission date:: 04/02/22 Discharge date: 04/02/22 HPI HPI HPI: this patient presented to the ed- pt with progressive sob over the last week -has failed out pt care and has dec adl and ambulation sec to sob - has cough - pt admitted for eval and treatment - Hospital Course Hospital Course Hospital Course: Cardiology has seen and recommends: Assessment and Plan Assessment and Plan for All Diagnoses:: Plan: 1.? The patient was mated to the hospital with an acute exacerbation of diastolic congestive heart failure.? The patient is getting treated with IV Lasix.? She had a -7968 fluid balance overnight last night.? We will stop IV Lasix and switch her over to oral Lasix today. 2.? The patient also has chronic hypoxic respiratory failure with known COPD and obstructive sleep apnea.? The patient has been noncompliant with her obstructive sleep apnea at home.? Will defer management of her COPD to pulmonology and her primary care team. 3.? The patient also had not been taking her diuretics at home.? I had a long discussion with the patient about being compliant pliant with her diuretics.? She states that she stopped taking her diuretics because she cannot get up quick enough to get make it to the bathroom.? She is going to be sent home with a bedside commode to help with this so she will be more compliant with her diuretics. 4.? Her renal function remains normal. 5.? Her blood pressure is well controlled. 6.? Her LDL goal is less than 100. 7.? The patient has a history of normal coronary arteries.? She denies any chest pain or pressure.? No plans for invasive left cardiac catheterization at this time. 8.? The patient is stable for discharge home today from a cardiac standpoint.? The patient will need to follow-up in cardiology clinic in 1 to 2 weeks on an outpatient basis.? The patient will need to go home on the following cardiac medications: Lisinopril 20 mg daily and Lasix 40 mg p.o. daily.? She will need a BMP prior to her follow-up appointment in cardiology clinic. Pulmonology has seen and recommends: Plan #COPD a exacerbation: #Acute hypoxic respiratory failure: Greater than 77-[id number]-[id number] smoking history.? Asthma COPD overlap syndrome.? Last seen in clinic in July 2021. On trelegy Inhaler.? She also carries a diagnosis of sleep apnea however appeared to be not following with sleep clinic.? Presented to the hospital with subacute worsening respiratory distress associated with only minimal cough and productive phlegm.? Recently diagnosed with COVID-19 pneumonia 3 weeks ago managed as an outpatient basis. No evidence of leukocytosis on this admission.? Eosinophil counts of 0. ABG on admission normal pH with evidence of increased PCO2 66.3 and PO2 at 69.0 COVID-19 flu PCR negative. Chest x-ray poorly penetrated.? Cannot completely rule out airspace disease.? Less likely to be having effusions. Patient continued to receive levofloxacin, steroids and ambulation therapies.? CTA revealed no evidence of pulm embolism, bilateral pleural effusions right greater than left along with right lower lobe wedge shaped atelectasis/airspace disease. Respiratory status continued to improve Plan: -Continue incentive spirometry -Levofloxacin, 750 mg IV daily x 5 days -Initiate Trelegy 100 inhaler and the DuoNebs every 6 hours and -Prednisone 40 mg daily x 5 days -Follow with cardiology recommendation, recommended negative volume status Patient was diuresed during her admission of almost 15 L of fluid. She did admit that she has stopped taking her diuretic pills at home due to difficulty making it to the bathroom, she will have a bedside commode on discharge. Importance of taking diuretics explained to patient and she verbalizes understanding. Pneumonia was treated with levofloxacin methylprednisone, duo nebs, and Trelegy inhaler, lung sounds improved and easy respirations as patient progressed. She is in need of a sleep study and that will be handled outpatient. Altaf
== END 2022-04-02 13:25 | disposition home or self-care (01) ==
LOC: ER 03-31 00:42 → 2ND 03-31 03:54
PROVIDERS: Nurse Practitioner Family; Admitting Provider Emergency Medicine; Emergency Provider Emergency Medicine; PCP Family Medicine; Visit Provider Family Medicine
DX: I11.0 Hypertensive heart disease with heart failure (principal); I50.33 Acute on chronic diastolic (congestive) heart failure; J96.21 Acute and chronic respiratory failure with hypoxia; J44.1 Chronic obstructive pulmonary disease with (acute) exacerbation; E03.9 Hypothyroidism, unspecified; F17.210 Nicotine dependence, cigarettes, uncomplicated; Z86.16 Personal history of COVID-19; I27.20 Pulmonary hypertension, unspecified; G47.33 Obstructive sleep apnea (adult) (pediatric); Z91.19 Patient's noncompliance with other medical treatment and regimen; R07.9 Chest pain, unspecified; I10 Essential (primary) hypertension; J96.22 Acute and chronic respiratory failure with hypercapnia; J18.9 Pneumonia, unspecified organism
CPT/HCPCS: G0378; 36415; 71045; 71275; 80048; 80053; 81001; 82803; 83605; 83880; 84145; 84484; 85007; 85025; 85651; 86140; 87040; 93005; 93306; 94640; 94761; 99285; C9803; J1956; Q9967; U0003; U0005

== ENCOUNTER → 2022-08-11 16:15 | Outpatient (CLI) | payer MEDICARE, OTHER, SELFPAY ==
[2022-08-11 20:39] LABS: Basophils # 0.1 K/mm3 (0-0.2); Basophils % 0.7 % (0.1-2.0); Eosinophils # 0.1 K/mm3 (0.0-0.4); Eosinophils % 1.6 % (0.1-12.0); Hematocrit 41.6 % (37.0-47.0); Hemoglobin 13.1 g/dL (12.2-16.2); Lymphocytes # 1.7 K/mm3 (0.7-4.5); Lymphocytes % 18.8 % (10-50); Mean Corpuscular HGB Conc 31.6 g/dL (31.8-35.4); Mean Corpuscular Hemoglobin 27.8 pg (27.0-31.2); Mean Corpuscular Volume 88.1 fl (81-99); Mean Platelet Volume 8.8 fl (7.4-10.4); Monocytes # 0.4 K/mm3 (0.1-1.0); Monocytes % 4.8 % (1.7-9.3); Neutrophils # 6.6 K/mm3 (1.8-7.8); Platelet Count 334 K/mm3 (142-424); Red Blood Count 4.73 M/mm3 (4.20-5.40); Red Cell Distribution Width 16.7 % (11.5-17.5); White Blood Count 8.9 K/mm3 (4.8-10.8)
[2022-08-11 20:54] LABS: Anion Gap 12.5 mEq/L (5-15); Blood Urea Nitrogen 7 mg/dl (7-17); Calcium 8.9 mg/dl (8.4-10.2); Carbon Dioxide 33 mmol/L (22.0-30.0); Chloride 96 mmol/L (98-107); Estimated Glomerular Filt Rate 75 ml/min (>60); GFR (African American) 90 ML/MIN (>60); Glucose 108 mg/dl (74-100); Hemoglobin A1C 6.6 % (4.0-6.0); Potassium 4.5 mmoL/L (3.5-5.1); Sodium 137 mmol/L (136-145)
[2022-08-13 10:15] LABS: Estradiol 36.3 pg/mL (.); FSH 1.9 mIU/mL (.)
== END ==
PROVIDERS: PCP Family Medicine; Visit Provider Family Medicine
DX: E11.9 Type 2 diabetes mellitus without complications (principal); I27.20 Pulmonary hypertension, unspecified
CPT/HCPCS: 80048; 82670; 83001; 83036; 85025

== ENCOUNTER 2022-08-23 17:47 | Emergency (ER) | payer MEDICARE, OTHER, SELFPAY ==
[2022-08-23 17:49] VITALS: BP 158/89; PULSE 101; RESP 20; TEMP 36.5; O2SAT 99; BMI 66.4
--- NOTE | 2022-08-23 18:03 | HMH.EDGENADL ---
Discharge Plan Prescriptions Prescriptions: No Action furosemide 40 mg tablet See Rx Instructions .ROUTE .COMPLEX Qty: 90 3RF Dose Instruction: TAKE ONE TABLET BY MOUTH EVERY DAY Rx Instructions: TAKE ONE TABLET BY MOUTH EVERY DAY prednisone 20 mg tablet See Rx Instructions .ROUTE .COMPLEX Qty: 20 0RF Rx Instructions: two daily for 5 days, one daily for 5 days ipratropium-albuterol 0.5 mg-3 mg(2.5 mg base)/3 mL solution for nebulization 3 ml inhalation QID PRN (Reason: shortness of breath or wheezing) Qty: 180 10RF albuterol sulfate 90 mcg/actuation HFA aerosol inhaler 2 inh IH Q4-6H PRN (Reason: Shortness Of Breath Or Wheezing) Qty: 8.5 10RF nicotine 21 mg/24 hr patch 24 hour 1 patch transdermal DAILY Qty: 14 0RF bupropion HCl 200 mg tablet sustained-release 12 hr See Rx Instructions .ROUTE .COMPLEX Qty: 90 3RF Dose Instruction: TAKE TWO TABLETS BY MOUTH EVERY DAY Rx Instructions: TAKE TWO TABLETS BY MOUTH EVERY DAY trazodone 150 mg tablet See Rx Instructions .ROUTE .COMPLEX Qty: 60 3RF Dose Instruction: TAKE ONE TABLET BY MOUTH TWICE DAILY Rx Instructions: TAKE ONE TABLET BY MOUTH TWICE DAILY gabapentin 100 mg capsule 100 mg PO TIDP PRN (Reason: Pain) Qty: 90 0RF ropinirole 4 mg tablet See Rx Instructions .ROUTE .COMPLEX Qty: 30 3RF Dose Instruction: TAKE ONE TABLET BY MOUTH EVERY DAY Rx Instructions: TAKE ONE TABLET BY MOUTH EVERY DAY lisinopril 20 mg tablet See Rx Instructions .ROUTE .COMPLEX Qty: 30 0RF Dose Instruction: TAKE ONE TABLET BY MOUTH EVERY DAY Rx Instructions: TAKE ONE TABLET BY MOUTH EVERY DAY ([facility] [place]) lancets [Accu-Chek Softclix Lancets] [facility] [place] [place] See Rx Instructions .Route Qty: 100 3RF Rx Instructions: As directed (DME) blood-glucose meter [Accu-Chek Guide Glucose Meter] Mis See Rx Instructions .Route Qty: 1 3RF Rx Instructions: As directed ([facility] [place]) Accu-Chek Guide test strips Strip See Rx Instructions .Route Qty: 50 3RF Rx Instructions: As directed levothyroxine 150 mcg tablet 300 mcg PO DAILY Trelegy Ellipta 100-62.5-25 mcg blister with device 1 inh inhalation DAILY nystatin 100,000 unit/gram cream 1 applic TOPICAL BID Label Comments: APPLY TOPICALLY TO THE AFFECTED AREA(S) TWICE DAILY FOR FOURTEEN DAYS -- FOR EXTERNAL USE ONLY-- Referrals Follow up/Referrals: Miquel Corado MD [Primary Care Provider] - See instructions Discharge ED Provider: Trey Cobb General Adult HPI General Stated complaint: weak,AMS,SOA Related Data Home Medications Medication Instructions Recorded Confirmed fluticasone fur. 100 mcg-umeclid 1 inh inhalation DAILY COPD 03/27/22 08/11/22 62.5 mcg-vilant 25 mcg inhalat.powder (Trelegy Ellipta) levothyroxine 150 mcg tablet 300 mcg PO DAILY hypothyroidism 03/27/22 08/11/22 nystatin 100,000 unit/gram topical 1 applic topical BID Infection 04/01/22 08/11/22 cream Previous Rx's Medication Instructions Recorded albuterol sulfate 90 mcg/actuation 2 inh inhalation Q4-6H PRN 03/21/22 aerosol inhaler Shortness Of Breath Or Wheezing #8.5 grams nicotine 21 mg/24 hr daily 1 patch transdermal DAILY #14 ea 04/07/22 transdermal patch bupropion HCl 200 mg tablet,12 hr See Rx Instructions .Route 04/18/22 sustained-release .COMPLEX #90 tabs trazodone 150 mg tablet See Rx Instructions .Route 04/18/22 .COMPLEX #60 tabs gabapentin 100 mg capsule 100 mg PO TIDP PRN Pain #90 caps 05/29/22 ropinirole 4 mg tablet See Rx Instructions .Route 06/11/22 .COMPLEX #30 tabs furosemide 40 mg tablet See Rx Instructions .Route 08/11/22 .COMPLEX #90 tabs ipratropium 0.5 mg-albuterol 3 mg 3 ml inhalation QID PRN shortness 08/11/22 (2.5 mg base)/3 mL nebulization of breath or wheezing #180 mL soln prednisone 20 mg tablet See Rx Instructions .Route 08/11/22 .COMPLEX #20 tabs lisinopri
--- NOTE | 2022-08-23 18:19 | ECG_ITS ---
APPROVED REPORT Exam: Resting ECG HR:98 bpm ECG Measurements Heart Rate 98 AXES CA 171 P 73 QRSd 133 QRS -43 QT 360 T -4 QTc 416 Conclusion SINUS RHYTHM LEFT AXIS DEVIATION [QRS AXIS < -30] RIGHT BUNDLE BRANCH BLOCK [120+ ms QRS DURATION, UPRIGHT V1, 40+ ms S IN I/aVL/V4/V5/V6] PROBABLE ANTERIOR MYOCARDIAL INFARCTION , PROBABLY OLD [35 ms Q WAVE IN V3/V4] ABNORMAL ECG UNCONFIRMED REPORT Electronically signed by : Fabrizio Rosales MD 08/24/2022 15:07:31
--- NOTE | 2022-08-23 18:20 | CT_ITS ---
PROCEDURE INFORMATION: Exam: CT Head Without Contrast Exam date and time: 08/23/2022 7:00 PM Age: 52 years old Clinical indication: Altered mental status/memory loss; Additional info: AMS TECHNIQUE: Imaging protocol: Computed tomography of the head without contrast. Radiation optimization: All CT scans at this facility use at least one of these dose optimization techniques: automated exposure control; mA and/or kV adjustment per patient size (includes targeted exams where dose is matched to clinical indication); or iterative reconstruction. Other protocol: This patient has received 2 known CTs and 0 known cardiac nuclear medicine studies in the 12 months prior to the current study. COMPARISON: CT HEAD/BRAIN WO CON 11/10/2019 8:03 PM FINDINGS: Brain: Normal. No hemorrhage. Unremarkable white matter. No mass effect. Cerebral ventricles: No ventriculomegaly. Paranasal sinuses: Visualized sinuses are unremarkable. No fluid levels. Mastoid air cells: Visualized mastoid air cells are well aerated. Bones/joints: Unremarkable. No acute fracture. Soft tissues: Unremarkable. IMPRESSION: No acute intracranial abnormality.
--- NOTE | 2022-08-23 18:21 | XR_ITS ---
PROCEDURE INFORMATION: Exam: XR Chest Exam date and time: 08/23/2022 7:08 PM Age: 52 years old Clinical indication: Shortness of breath; Additional info: AMS TECHNIQUE: Imaging protocol: Radiologic exam of the chest. Views: 1 view. COMPARISON: CR XR CHEST PORTABLE 03/31/2022 12:09 AM FINDINGS: Lungs: Unremarkable. No consolidation. Pleural spaces: Unremarkable. No pleural effusion. No pneumothorax. Heart/Mediastinum: Unremarkable. No cardiomegaly. Bones/joints: Unremarkable. IMPRESSION: No acute findings.
[2022-08-23 18:35] LABS: Basophils # 0.1 K/mm3 (0-0.2); Eosinophils # 0.1 K/mm3 (0.0-0.4); Hematocrit 49.5 % (37.0-47.0); Hemoglobin 15.5 g/dL (12.2-16.2); Lymphocytes # 1.5 K/mm3 (0.7-4.5); Lymphocytes % 11.8 % (10-50); Mean Corpuscular HGB Conc 31.3 g/dL (31.8-35.4); Mean Corpuscular Hemoglobin 27.7 pg (27.0-31.2); Mean Corpuscular Volume 88.3 fl (81-99); Monocytes # 0.5 K/mm3 (0.1-1.0); Monocytes % 4.2 % (1.7-9.3); Neutrophils # 10.2 K/mm3 (1.8-7.8); Platelet Count 368 K/mm3 (142-424); Red Blood Count 5.61 M/mm3 (4.20-5.40); Red Cell Distribution Width 17.1 % (11.5-17.5); White Blood Count 12.4 K/mm3 (4.8-10.8)
[2022-08-23 18:36] LABS: Coronavirus 19, PCR Not Detected (NotDetected); Influenza A, PCR Not Detected (NotDetected); Influenza B, PCR Not Detected (NotDetected)
[2022-08-23 18:36] LABS: Chloride 99 mmol/L (98-107); Sodium 135 mmol/L (136-145)
[2022-08-23 18:37] LABS: Potassium 4.7 mmoL/L (3.5-5.1)
[2022-08-23 18:39] LABS: Alanine Aminotransferase 28 U/L (12-78); Alkaline Phosphatase 107 U/L (38-126); Anion Gap 12.7 mEq/L (5-15); Aspartate Amino Transferase 43 U/L (14-36); Blood Urea Nitrogen 4 mg/dl (7-17); Carbon Dioxide 28 mmol/L (22.0-30.0); Creatinine Clearance Estimated 67 mL/min (50-200); Estimated Glomerular Filt Rate 75 ml/min (>60); GFR (African American) 90 ML/MIN (>60); Lactic Acid 1.6 mmol/L (0.7-2.1)
[2022-08-23 18:40] LABS: ABG Base Excess 2.7 mmol/L (-2.4-2.3); ABG Oxygen Saturation 96 % (90-100); ABG PCO2 41.2 mmhg (35.0-45.0); ABG PH 7.43 mmol/L (7.35-7.45); ABG PO2 81.9 mmhg (80-100); ABG TCO2 28.2 mmhg (23-27)
[2022-08-23 18:40] LABS: Albumin Level 4.4 g/dl (3.5-5.0); Albumin/Globulin Ratio 1.1 (1.1-1.8); Calcium 9.5 mg/dl (8.4-10.2); Globulin 4.1 g/dL (1.3-3.2); Glucose 116 mg/dl (74-100); Total Protein,Serum 8.5 g/dl (6.3-8.2)
[2022-08-23 18:41] LABS: Allen's Test y; Oxygen 2 %; Source rr
[2022-08-23 18:57] LABS: Troponin I < 0.01 ng/ml (0.00-0.034)
--- NOTE | 2022-08-23 19:03 | PC.NURSE ---
Pt back from RAD
[2022-08-23 19:30] VITALS: BP 154/79; PULSE 110; O2SAT 97
[2022-08-23 19:30] LABS: Microscopic, Urine URINE MICROSCOPIC (MICROSCOPIC)
[2022-08-23 19:33] LABS: Appearance,Urine CLEAR (Clear); Blood, Urine TRACE-I (Negative); Color,Urine YELLOW (Yellow); Glucose,Urine (UA) Negative (Negative); Ketones,Urine 3+ (Negative); Leukocyte Esterase,Urine 1+ (Negative); Nitrate,Urine Negative (Negative); PH,Urine 6.5 (5.0-8.5); Protein,Urine Negative (Negative)
[2022-08-23 19:40] LABS: Bilirubin,Urine 2+ (Negative)
[2022-08-23 19:42] LABS: Bacteria,Urine Trace /lpf; RBC,Urine Occasional #/hpf (0-3)
[2022-08-23 20:00] VITALS: BP 147/92; PULSE 104; O2SAT 97
[2022-08-23 20:31] VITALS: BP 114/86; PULSE 107; O2SAT 93
--- NOTE | 2022-08-23 20:39 | PC.NURSE ---
Dr. Mcarthur at BS speaking with pt
--- NOTE | 2022-08-23 20:41 | HMH.EDAMS ---
Discharge Plan Disposition Patient Disposition: Home, Self-Care Prescriptions Prescriptions: New levofloxacin 500 mg tablet 500 mg PO DAILY 5 Days Qty: 5 0RF No Action furosemide 40 mg tablet See Rx Instructions .ROUTE .COMPLEX Qty: 90 3RF Dose Instruction: TAKE ONE TABLET BY MOUTH EVERY DAY Rx Instructions: TAKE ONE TABLET BY MOUTH EVERY DAY prednisone 20 mg tablet See Rx Instructions .ROUTE .COMPLEX Qty: 20 0RF Rx Instructions: two daily for 5 days, one daily for 5 days ipratropium-albuterol 0.5 mg-3 mg(2.5 mg base)/3 mL solution for nebulization 3 ml inhalation QID PRN (Reason: shortness of breath or wheezing) Qty: 180 10RF albuterol sulfate 90 mcg/actuation HFA aerosol inhaler 2 inh IH Q4-6H PRN (Reason: Shortness Of Breath Or Wheezing) Qty: 8.5 10RF nicotine 21 mg/24 hr patch 24 hour 1 patch transdermal DAILY Qty: 14 0RF bupropion HCl 200 mg tablet sustained-release 12 hr See Rx Instructions .ROUTE .COMPLEX Qty: 90 3RF Dose Instruction: TAKE TWO TABLETS BY MOUTH EVERY DAY Rx Instructions: TAKE TWO TABLETS BY MOUTH EVERY DAY trazodone 150 mg tablet See Rx Instructions .ROUTE .COMPLEX Qty: 60 3RF Dose Instruction: TAKE ONE TABLET BY MOUTH TWICE DAILY Rx Instructions: TAKE ONE TABLET BY MOUTH TWICE DAILY gabapentin 100 mg capsule 100 mg PO TIDP PRN (Reason: Pain) Qty: 90 0RF ropinirole 4 mg tablet See Rx Instructions .ROUTE .COMPLEX Qty: 30 3RF Dose Instruction: TAKE ONE TABLET BY MOUTH EVERY DAY Rx Instructions: TAKE ONE TABLET BY MOUTH EVERY DAY lisinopril 20 mg tablet See Rx Instructions .ROUTE .COMPLEX Qty: 30 0RF Dose Instruction: TAKE ONE TABLET BY MOUTH EVERY DAY Rx Instructions: TAKE ONE TABLET BY MOUTH EVERY DAY (DME) lancets [Accu-Chek Softclix Lancets] Misc See Rx Instructions .Route Qty: 100 3RF Rx Instructions: As directed (DME) blood-glucose meter [Accu-Chek Guide Glucose Meter] Misc See Rx Instructions .Route Qty: 1 3RF Rx Instructions: As directed (DME) Accu-Chek Guide test strips Strip See Rx Instructions .Route Qty: 50 3RF Rx Instructions: As directed levothyroxine 150 mcg tablet 300 mcg PO DAILY Trelegy Ellipta 100-62.5-25 mcg blister with device 1 inh inhalation DAILY nystatin 100,000 unit/gram cream 1 applic TOPICAL BID Label Comments: APPLY TOPICALLY TO THE AFFECTED AREA(S) TWICE DAILY FOR FOURTEEN DAYS -- FOR EXTERNAL USE ONLY-- Referrals Follow up/Referrals: Miquel Corado MD [Primary Care Provider] - See instructions Clinical Impressions Clinical Impression: Depression, Hypothyroidism (acquired), Generalized weakness Instructions Patient Instructions: DI for Altered Mental Status Discharge ED Provider: Blue (ED),Nishant Rodriguez Altered Mental Status HPI General Chief Complaint: Altered Mental Status Stated Complaint: weak,AMS,SOA Time Seen by Provider: 08/23/22 20:41 Mode of Arrival: Wheelchair Source of Information: Patient and Relative Limitations: No Limitations Description of Symptoms (Recalled from ER Triage Doc. by RN): c/o confusion and LANE for 2 days. Son states that she is just not herself or can't think straight. She hasnt taken her meds or ate anything for a few days. He feels that maybe her co2 is up. She is A&O but he states that she just isnt right. PT states that she just doesnt feel herself. History of Present Illness HPI narrative: pt and family report pt not acting right with no focal changes but not taking meds complaint: confusion Onset (ago): day(s) Timing confirmed by: family member Severity: moderate Consistency of symptoms: waxing and waning Associated symptoms: denies other symptoms Related Data Home Medications Medication Instructions Recorded Confirmed fluticasone fur. 100 mcg-umeclid 1 inh inhalation DAILY COPD 03/27/22 08/11/22 62.5 m
[2022-08-23 21:00] VITALS: BP 119/84; PULSE 105; O2SAT 96
[2022-08-23 21:12] LABS: T4 (Thyroxine) 7.2 ug/dl (5.53-11.0)
[2022-08-23 21:44] VITALS: BP 117/87; PULSE 91; RESP 20; TEMP 36.5; O2SAT 96
== END 2022-08-23 22:00 | disposition home or self-care (01) ==
PROVIDERS: Emergency Medicine; Emergency Provider Emergency Medicine; PCP Family Medicine
DX: R53.1 Weakness (principal); F32.A Depression, unspecified; E03.9 Hypothyroidism, unspecified; J44.9 Chronic obstructive pulmonary disease, unspecified; J45.909 Unspecified asthma, uncomplicated; I50.9 Heart failure, unspecified; I11.0 Hypertensive heart disease with heart failure; Z86.16 Personal history of COVID-19; I27.20 Pulmonary hypertension, unspecified; R73.03 Prediabetes; F17.210 Nicotine dependence, cigarettes, uncomplicated; Z86.73 Personal history of transient ischemic attack (TIA), and cerebral infarction without residual deficits; Z98.51 Tubal ligation status; Z87.19 Personal history of other diseases of the digestive system
CPT/HCPCS: 70450; 71045; 80053; 81001; 82803; 83605; 84436; 84443; 84484; 85025; 87040; 87086; 93005; 99285; C9803; U0003; U0005

== ENCOUNTER 2023-04-12 10:29 | Emergency (ER) | payer MEDICARE, OTHER, SELFPAY ==
[2023-04-12 10:30] VITALS: BP 136/114; PULSE 85; RESP 20; TEMP 36.6; O2SAT 94; BMI 62.6
--- NOTE | 2023-04-12 10:39 | ECG_ITS ---
APPROVED REPORT Exam: Resting ECG HR:85 bpm ECG Measurements Heart Rate 85 AXES NJ 158 P 72 QRSd 154 QRS -49 QT 396 T 33 QTc 438 Conclusion SINUS RHYTHM RIGHT BUNDLE BRANCH BLOCK [120+ ms QRS DURATION, UPRIGHT V1, 40+ ms S IN I/aVL/V4/V5/V6] LEFT ANTERIOR FASCICULAR BLOCK [QRS AXIS <= -45, QR IN I, RS IN II] POSSIBLE ANTERIOR MYOCARDIAL INFARCTION , PROBABLY OLD [30 ms Q WAVE IN V3/V4, OR R < 0.2 mV IN V4] ABNORMAL ECG UNCONFIRMED REPORT Electronically signed by : Fabrizio Rosales MD 04/14/2023 20:07:54
--- NOTE | 2023-04-12 10:55 | XR_ITS ---
PROCEDURE INFORMATION: Exam: XR Chest Exam date and time: 04/12/2023 11:53 AM Age: 52 years old Clinical indication: Cough and shortness of breath; Additional info: SOA, cough TECHNIQUE: Imaging protocol: Radiologic exam of the chest. Views: 1 view. COMPARISON: CR XR CHEST PORTABLE 08/23/2022 7:08 PM FINDINGS: Lungs: Unremarkable. No consolidation. Pleural spaces: Unremarkable. No pleural effusion. No pneumothorax. Heart/Mediastinum: Unremarkable. No cardiomegaly. Bones/joints: Unremarkable. IMPRESSION: No acute findings.
[2023-04-12 11:18] VITALS: BP 130/63; PULSE 81; RESP 20; O2SAT 95
[2023-04-12 11:30] VITALS: BP 131/70; PULSE 82; RESP 22; O2SAT 94
--- NOTE | 2023-04-12 11:30 | PC.NURSE ---
Dr. Martinez at BS for pt eval
--- NOTE | 2023-04-12 11:36 | HMH.EDGENADL ---
Discharge Plan Disposition Patient Disposition: Home, Self-Care Prescriptions Prescriptions: New doxycycline hyclate 100 mg capsule 100 mg PO BID 10 Days Qty: 20 0RF albuterol sulfate 90 mcg/actuation HFA aerosol inhaler 4 inh inhalation Q4H PRN (Reason: shortness of breath or wheezing) Qty: 8.5 0RF Rx Instructions: 4 puffs every 4 hours for 48 hours then as needed for shortness of breath or wheezing following No Action furosemide 40 mg tablet See Rx Instructions .ROUTE .COMPLEX Qty: 90 3RF Dose Instruction: TAKE ONE TABLET BY MOUTH EVERY DAY Rx Instructions: TAKE ONE TABLET BY MOUTH EVERY DAY ipratropium-albuterol 0.5 mg-3 mg(2.5 mg base)/3 mL solution for nebulization 3 ml inhalation QID PRN (Reason: shortness of breath or wheezing) Qty: 180 10RF azithromycin 500 mg tablet 500 mg PO DAILY 3 Days Qty: 3 0RF cefdinir 300 mg capsule 300 mg PO BID 10 Days Qty: 20 0RF prednisone 20 mg tablet See Rx Instructions PO DAILY Qty: 15 0RF Rx Instructions: two daily for 5 days, one daily for 5 days nicotine 21 mg/24 hr patch 24 hour 1 patch transdermal DAILY Qty: 14 0RF gabapentin 100 mg capsule 100 mg PO TIDP PRN (Reason: Pain) Qty: 90 0RF (DME) lancets [Accu-Chek Softclix Lancets] Misc See Rx Instructions .Route Qty: 100 3RF Rx Instructions: As directed (DME) blood-glucose meter [Accu-Chek Guide Glucose Meter] Misc See Rx Instructions .Route Qty: 1 3RF Rx Instructions: As directed (DME) Accu-Chek Guide test strips Strip See Rx Instructions .Route Qty: 50 3RF Rx Instructions: As directed bupropion HCl 200 mg tablet sustained-release 12 hr See Rx Instructions .ROUTE .COMPLEX Qty: 90 3RF Dose Instruction: TAKE TWO TABLETS BY MOUTH EVERY DAY Rx Instructions: TAKE TWO TABLETS BY MOUTH EVERY DAY lisinopril 20 mg tablet See Rx Instructions .ROUTE .COMPLEX Qty: 90 0RF Dose Instruction: TAKE ONE TABLET BY MOUTH EVERY DAY Rx Instructions: TAKE ONE TABLET BY MOUTH EVERY DAY ropinirole 4 mg tablet See Rx Instructions .ROUTE .COMPLEX Qty: 30 3RF Dose Instruction: TAKE ONE TABLET BY MOUTH EVERY DAY Rx Instructions: TAKE ONE TABLET BY MOUTH EVERY DAY trazodone 150 mg tablet See Rx Instructions .ROUTE .COMPLEX Qty: 60 3RF Dose Instruction: TAKE ONE TABLET BY MOUTH TWICE DAILY Rx Instructions: TAKE ONE TABLET BY MOUTH TWICE DAILY levothyroxine 150 mcg tablet See Rx Instructions .ROUTE .COMPLEX Qty: 60 10RF Dose Instruction: TAKE TWO TABLETS BY MOUTH EVERY DAY Rx Instructions: TAKE TWO TABLETS BY MOUTH EVERY DAY ibuprofen 800 mg tablet 800 mg PO Q8H PRN (Reason: pain) Qty: 90 2RF albuterol sulfate 90 mcg/actuation HFA aerosol inhaler See Rx Instructions .ROUTE .COMPLEX Qty: 8.5 10RF Dose Instruction: INHALE 2 PUFFS BY MOUTH EVERY 4 TO 6 HOURS NEEDED FOR SHORTNESS OF BREATH OR wheezing Rx Instructions: INHALE 2 PUFFS BY MOUTH EVERY 4 TO 6 HOURS NEEDED FOR SHORTNESS OF BREATH OR wheezing Trelegy Ellipta 100-62.5-25 mcg blister with device See Rx Instructions .ROUTE .COMPLEX Qty: 60 10RF Dose Instruction: INHALE 1 PUFF BY MOUTH EVERY DAY Rx Instructions: INHALE 1 PUFF BY MOUTH EVERY DAY nystatin 100,000 unit/gram cream 1 applic TOPICAL BID Patient Comments: APPLY TOPICALLY TO THE AFFECTED AREA(S) TWICE DAILY FOR FOURTEEN DAYS -- FOR EXTERNAL USE ONLY-- Referrals Follow up/Referrals: Miquel Corado MD [Primary Care Provider] - See instructions Activity Restrictions/Add. Instructions Additional Instructions/Restrictions: Return with worsening shortness of breath or other concerns. Clinical Impressions Clinical Impression: Acute exacerbation of chronic obstructive pulmonary disease Discharge ED Provider: Cynthia Martinez General Adult HPI General Chief complaint
--- NOTE | 2023-04-12 11:37 | PC.NURSE ---
RAD at for CXR
[2023-04-12 11:49] LABS: Coronavirus 19, PCR Not Detected (NotDetected); Influenza A, PCR Not Detected (NotDetected); Influenza B, PCR Not Detected (NotDetected)
--- NOTE | 2023-04-12 11:58 | PC.NURSE ---
Notified RT of VBG order
[2023-04-12 12:00] VITALS: BP 143/60; PULSE 82; RESP 17; O2SAT 95
[2023-04-12 12:00] LABS: Basophils # 0.1 K/mm3 (0-0.2); Basophils % 0.4 % (0.1-2.0); Eosinophils # 0.3 K/mm3 (0.0-0.4); Eosinophils % 2.6 % (0.1-12.0); Hematocrit 42.1 % (37.0-47.0); Hemoglobin 12.4 g/dL (12.2-16.2); Lymphocytes # 0.5 K/mm3 (0.7-4.5); Lymphocytes % 4.2 % (10-50); Mean Corpuscular HGB Conc 29.5 g/dL (31.8-35.4); Mean Corpuscular Hemoglobin 26.5 pg (27.0-31.2); Mean Corpuscular Volume 89.8 fl (81-99); Mean Platelet Volume 8.1 fl (7.4-10.4); Monocytes # 1.1 K/mm3 (0.1-1.0); Monocytes % 9.8 % (1.7-9.3); Neutrophils # 9.1 K/mm3 (1.8-7.8); Platelet Count 326 K/mm3 (142-424); Red Blood Count 4.69 M/mm3 (4.20-5.40); Red Cell Distribution Width 17.4 % (11.5-17.5)
[2023-04-12 12:04] LABS: Chloride 103 mmol/L (98-107)
[2023-04-12 12:05] LABS: Potassium 4.4 mmoL/L (3.5-5.1); Sodium 138 mmol/L (136-145)
[2023-04-12 12:07] LABS: Alanine Aminotransferase 16 U/L (12-78); Alkaline Phosphatase 80 U/L (38-126); Aspartate Amino Transferase 22 U/L (14-36); Blood Urea Nitrogen 13 mg/dl (7-17); Creatinine Clearance Estimated 67 mL/min (50-200); Estimated Glomerular Filt Rate 75 ml/min (>60); GFR (African American) 90 ML/MIN (>60)
[2023-04-12 12:08] LABS: Albumin Level 3.3 g/dl (3.5-5.0); Albumin/Globulin Ratio 0.9 (1.1-1.8); Anion Gap 5.4 mEq/L (5-15); Bilirubin,Total < 0.1 mg/dl (0.2-1.3); Calcium 8.6 mg/dl (8.4-10.2); Carbon Dioxide 34 mmol/L (22.0-30.0); Globulin 3.5 g/dL (1.3-3.2); Glucose 101 mg/dl (74-100); Total Protein,Serum 6.8 g/dl (6.3-8.2)
[2023-04-12 12:17] LABS: NT Pro Brain Natriuretic Pep. 422 pg/mL (0-125)
[2023-04-12 12:20] LABS: VBG Base Excess 2.5 mmol/L (-2.4-2.3); VBG HCO3 28.4 mmol/L (23-30); VBG Oxygen Saturation 77.5 % (50-70); VBG PH 7.33 mmol/L (7.31-7.41); VBG PO2 43.1 mmol/L (28-40); VBG Total CO2 30.1 mmol/L (23-27)
[2023-04-12 12:20] LABS: Troponin I 0.03 ng/ml (0.00-0.034)
[2023-04-12 12:25] LABS: VBG PCO2 55.1 mmol/L (35-51)
[2023-04-12 13:41] VITALS: BP 136/80; PULSE 80; RESP 20; TEMP 36.6; O2SAT 96
== END 2023-04-12 14:15 | disposition home or self-care (01) ==
PROVIDERS: Emergency Provider Student in an Organized Health Care Education/Training Program; PCP Family Medicine
DX: J44.1 Chronic obstructive pulmonary disease with (acute) exacerbation (principal); I11.0 Hypertensive heart disease with heart failure; I45.19 Other right bundle-branch block; I50.33 Acute on chronic diastolic (congestive) heart failure; F32.A Depression, unspecified; E03.9 Hypothyroidism, unspecified; G47.33 Obstructive sleep apnea (adult) (pediatric); I27.20 Pulmonary hypertension, unspecified; R73.03 Prediabetes; F17.210 Nicotine dependence, cigarettes, uncomplicated; Z86.73 Personal history of transient ischemic attack (TIA), and cerebral infarction without residual deficits
CPT/HCPCS: 71045; 80053; 82803; 83880; 84484; 85025; 87636; 93005; 96361; 96374; 96375; 99285; J3475

== ENCOUNTER 2023-06-30 16:38 | Emergency (ER) | payer MEDICARE, OTHER, SELFPAY ==
[2023-06-30 17:00] VITALS: BP 176/96; PULSE 79; RESP 18; TEMP 36.7; O2SAT 92; BMI 62.5
--- NOTE | 2023-06-30 17:10 | XR_ITS ---
PROCEDURE INFORMATION: Exam: XR Chest Exam date and time: 06/30/2023 5:07 PM Age: 53 years old Clinical indication: Cough; Additional info: Cough for 3 months TECHNIQUE: Imaging protocol: Radiologic exam of the chest. Views: 2 views. COMPARISON: CR XR CHEST PORTABLE 04/12/2023 11:53 AM FINDINGS: Lungs: There is coarsening of the bronchovascular markings. Pleural spaces: No evidence of pleural effusion, pneumothorax, or pleural thickening in the visualized pleural spaces. Heart/Mediastinum: Stable cardiac and mediastinal contours. Bones/joints: There are degenerative changes of the thoracic spine. Other findings: The examination is limited by under penetration. IMPRESSION: No dense parenchymal consolidation, pleural effusion, or pneumothorax.
--- NOTE | 2023-06-30 17:18 | EXP.UTC ---
Discharge Plan Disposition Patient Disposition: Home, Self-Care Condition: Good Prescriptions Prescriptions: New prednisone 10 mg tablet 10 mg PO DIRECTED 9 Days Qty: 21 0RF Rx Instructions: Take 4 tablets daily for 3 days, then take 2 tablets daily for 3 days, then take 1 tablet daily for 3 days, then stop. benzonatate [benzonatate] 100 mg capsule 100 mg PO TIDP PRN (Reason: Cough) Qty: 30 0RF amoxicillin-pot clavulanate 875-125 mg Tablet 1 tab PO Q12H Qty: 20 0RF guaifenesin [Mucinex] 600 mg tablet extended release 12hr 600 - 1,200 mg PO BIDP PRN (Reason: Congestion) Qty: 30 0RF No Action furosemide 40 mg tablet See Rx Instructions .ROUTE .COMPLEX Qty: 90 3RF Dose Instruction: TAKE ONE TABLET BY MOUTH EVERY DAY Rx Instructions: TAKE ONE TABLET BY MOUTH EVERY DAY ipratropium-albuterol 0.5 mg-3 mg(2.5 mg base)/3 mL solution for nebulization 3 ml inhalation QID PRN (Reason: shortness of breath or wheezing) Qty: 180 10RF prednisone 20 mg tablet See Rx Instructions PO DAILY Qty: 15 0RF Rx Instructions: two daily for 5 days, one daily for 5 days nicotine 21 mg/24 hr patch 24 hour 1 patch transdermal DAILY Qty: 14 0RF gabapentin 100 mg capsule 100 mg PO TIDP PRN (Reason: Pain) Qty: 90 0RF (DME) blood-glucose meter [Accu-Chek Guide Glucose Meter] Misc See Rx Instructions .Route Qty: 1 3RF Rx Instructions: As directed (DME) Accu-Chek Guide test strips Strip See Rx Instructions .Route Qty: 50 3RF Rx Instructions: As directed ropinirole 4 mg tablet See Rx Instructions .ROUTE .COMPLEX Qty: 30 3RF Dose Instruction: TAKE ONE TABLET BY MOUTH EVERY DAY Rx Instructions: TAKE ONE TABLET BY MOUTH EVERY DAY trazodone 150 mg tablet See Rx Instructions .ROUTE .COMPLEX Qty: 60 3RF Dose Instruction: TAKE ONE TABLET BY MOUTH TWICE DAILY Rx Instructions: TAKE ONE TABLET BY MOUTH TWICE DAILY levothyroxine 150 mcg tablet See Rx Instructions .ROUTE .COMPLEX Qty: 60 10RF Dose Instruction: TAKE TWO TABLETS BY MOUTH EVERY DAY Rx Instructions: TAKE TWO TABLETS BY MOUTH EVERY DAY ibuprofen 800 mg tablet 800 mg PO Q8H PRN (Reason: pain) Qty: 90 2RF albuterol sulfate 90 mcg/actuation HFA aerosol inhaler See Rx Instructions .ROUTE .COMPLEX Qty: 8.5 10RF Dose Instruction: INHALE 2 PUFFS BY MOUTH EVERY 4 TO 6 HOURS NEEDED FOR SHORTNESS OF BREATH OR wheezing Rx Instructions: INHALE 2 PUFFS BY MOUTH EVERY 4 TO 6 HOURS NEEDED FOR SHORTNESS OF BREATH OR wheezing Trelegy Ellipta 100-62.5-25 mcg blister with device See Rx Instructions .ROUTE .COMPLEX Qty: 60 10RF Dose Instruction: INHALE 1 PUFF BY MOUTH EVERY DAY Rx Instructions: INHALE 1 PUFF BY MOUTH EVERY DAY (DME) lancets [Accu-Chek Softclix Lancets] Misc See Rx Instructions .ROUTE .COMPLEX Qty: 200 3RF Dose Instruction: USE TO test blood sugar THREE TIMES DAILY Rx Instructions: USE TO test blood sugar THREE TIMES DAILY bupropion HCl 200 mg tablet sustained-release 12 hr See Rx Instructions .ROUTE .COMPLEX Qty: 90 3RF Dose Instruction: TAKE TWO TABLETS BY MOUTH EVERY DAY Rx Instructions: TAKE TWO TABLETS BY MOUTH EVERY DAY lisinopril 20 mg tablet See Rx Instructions .ROUTE .COMPLEX Qty: 30 0RF Dose Instruction: TAKE ONE TABLET BY MOUTH EVERY DAY Rx Instructions: TAKE ONE TABLET BY MOUTH EVERY DAY nystatin 100,000 unit/gram cream 1 applic TOPICAL BID Patient Comments: APPLY TOPICALLY TO THE AFFECTED AREA(S) TWICE DAILY FOR FOURTEEN DAYS -- FOR EXTERNAL USE ONLY-- doxycycline hyclate 100 mg capsule 100 mg PO BID 10 Days Qty: 20 0RF albuterol sulfate 90 mcg/actuation HFA aerosol inhaler 4 inh inhalation Q4H PRN (Reason: shortness of breath or wheezing) Qty: 8.5 0RF Rx Instructions: 4 puffs every 4 hours for
[2023-06-30 18:25] VITALS: BP 176/96; PULSE 79; RESP 18; TEMP 36.7; O2SAT 92
== END 2023-06-30 18:24 | disposition home or self-care (01) ==
PROVIDERS: Emergency Provider Nurse Practitioner Family; PCP Family Medicine
DX: J44.1 Chronic obstructive pulmonary disease with (acute) exacerbation (principal); J01.90 Acute sinusitis, unspecified; R07.9 Chest pain, unspecified; R06.02 Shortness of breath; R05.8 Other specified cough; F17.210 Nicotine dependence, cigarettes, uncomplicated; I11.0 Hypertensive heart disease with heart failure; I50.33 Acute on chronic diastolic (congestive) heart failure; E03.9 Hypothyroidism, unspecified; I27.20 Pulmonary hypertension, unspecified
CPT/HCPCS: 71046; 87635; 96372; 99212; 99214; G0463; J0696

== ENCOUNTER 2023-07-02 13:09 | Emergency (ER) | payer MEDICARE, OTHER, SELFPAY ==
[2023-07-02 13:30] VITALS: BP 167/81; PULSE 72; O2SAT 92
[2023-07-02 13:39] VITALS: BP 185/91; PULSE 68; RESP 18; TEMP 37.1; O2SAT 98; BMI 62.5
--- NOTE | 2023-07-02 13:47 | HMH.EDGENADL ---
Discharge Plan Disposition Patient Disposition: Home, Self-Care Condition: Good Prescriptions Prescriptions: New lisinopril 40 mg tablet 40 mg PO DAILY Qty: 30 0RF No Action furosemide 40 mg tablet See Rx Instructions .ROUTE .COMPLEX Qty: 90 3RF Dose Instruction: TAKE ONE TABLET BY MOUTH EVERY DAY Rx Instructions: TAKE ONE TABLET BY MOUTH EVERY DAY ipratropium-albuterol 0.5 mg-3 mg(2.5 mg base)/3 mL solution for nebulization 3 ml inhalation QID PRN (Reason: shortness of breath or wheezing) Qty: 180 10RF prednisone 20 mg tablet See Rx Instructions PO DAILY Qty: 15 0RF Rx Instructions: two daily for 5 days, one daily for 5 days nicotine 21 mg/24 hr patch 24 hour 1 patch transdermal DAILY Qty: 14 0RF gabapentin 100 mg capsule 100 mg PO TIDP PRN (Reason: Pain) Qty: 90 0RF (DME) blood-glucose meter [Accu-Chek Guide Glucose Meter] Misc See Rx Instructions .Route Qty: 1 3RF Rx Instructions: As directed (DME) Accu-Chek Guide test strips Strip See Rx Instructions .Route Qty: 50 3RF Rx Instructions: As directed trazodone 150 mg tablet See Rx Instructions .ROUTE .COMPLEX Qty: 60 3RF Dose Instruction: TAKE ONE TABLET BY MOUTH TWICE DAILY Rx Instructions: TAKE ONE TABLET BY MOUTH TWICE DAILY levothyroxine 150 mcg tablet See Rx Instructions .ROUTE .COMPLEX Qty: 60 10RF Dose Instruction: TAKE TWO TABLETS BY MOUTH EVERY DAY Rx Instructions: TAKE TWO TABLETS BY MOUTH EVERY DAY ibuprofen 800 mg tablet 800 mg PO Q8H PRN (Reason: pain) Qty: 90 2RF albuterol sulfate 90 mcg/actuation HFA aerosol inhaler See Rx Instructions .ROUTE .COMPLEX Qty: 8.5 10RF Dose Instruction: INHALE 2 PUFFS BY MOUTH EVERY 4 TO 6 HOURS NEEDED FOR SHORTNESS OF BREATH OR wheezing Rx Instructions: INHALE 2 PUFFS BY MOUTH EVERY 4 TO 6 HOURS NEEDED FOR SHORTNESS OF BREATH OR wheezing Trelegy Ellipta 100-62.5-25 mcg blister with device See Rx Instructions .ROUTE .COMPLEX Qty: 60 10RF Dose Instruction: INHALE 1 PUFF BY MOUTH EVERY DAY Rx Instructions: INHALE 1 PUFF BY MOUTH EVERY DAY (DME) lancets [Accu-Chek Softclix Lancets] [facility] [place] See Rx Instructions .ROUTE .COMPLEX Qty: 200 3RF Dose Instruction: USE TO test blood sugar THREE TIMES DAILY Rx Instructions: USE TO test blood sugar THREE TIMES DAILY bupropion HCl 200 mg tablet sustained-release 12 hr See Rx Instructions .ROUTE .COMPLEX Qty: 90 3RF Dose Instruction: TAKE TWO TABLETS BY MOUTH EVERY DAY Rx Instructions: TAKE TWO TABLETS BY MOUTH EVERY DAY ropinirole 4 mg tablet See Rx Instructions .ROUTE .COMPLEX Qty: 30 3RF Dose Instruction: TAKE ONE TABLET BY MOUTH EVERY DAY Rx Instructions: TAKE ONE TABLET BY MOUTH EVERY DAY lisinopril 20 mg tablet See Rx Instructions .ROUTE .COMPLEX Qty: 30 3RF Dose Instruction: TAKE ONE TABLET BY MOUTH EVERY DAY Rx Instructions: TAKE ONE TABLET BY MOUTH EVERY DAY nystatin 100,000 unit/gram cream 1 applic TOPICAL BID Patient Comments: APPLY TOPICALLY TO THE AFFECTED AREA(S) TWICE DAILY FOR FOURTEEN DAYS -- FOR EXTERNAL USE ONLY-- doxycycline hyclate 100 mg capsule 100 mg PO BID 10 Days Qty: 20 0RF albuterol sulfate 90 mcg/actuation HFA aerosol inhaler 4 inh inhalation Q4H PRN (Reason: shortness of breath or wheezing) Qty: 8.5 0RF Rx Instructions: 4 puffs every 4 hours for 48 hours then as needed for shortness of breath or wheezing following prednisone 10 mg tablet 10 mg PO DIRECTED 9 Days Qty: 21 0RF Rx Instructions: Take 4 tablets daily for 3 days, then take 2 tablets daily for 3 days, then take 1 tablet daily for 3 days, then stop. benzonatate [benzonatate] 100 mg capsule 100 mg PO TIDP PRN (Reason: Cough) Qty: 30 0RF amoxicillin-pot clavulanate 875-125 mg Tablet 1 tab PO Q12H Qty: 20 0
--- NOTE | 2023-07-02 13:54 | ECG_ITS ---
APPROVED REPORT Exam: Resting ECG HR:61 bpm ECG Measurements Heart Rate 61 AXES MO 146 P 61 QRSd 146 QRS -38 QT 427 T -19 QTc 429 Conclusion SINUS RHYTHM LEFT AXIS DEVIATION [QRS AXIS < -30] RIGHT BUNDLE BRANCH BLOCK [120+ ms QRS DURATION, UPRIGHT V1, 40+ ms S IN I/aVL/V4/V5/V6] MODERATE VOLTAGE CRITERIA FOR LVH, CONSIDER NORMAL VARIANT [MEETS CRITERIA IN ONE OF: R(aVL), S(V1), R(V5), R(V5/V6)+S(V1)] ABNORMAL ECG UNCONFIRMED REPORT Electronically signed by : Fabrizio Rosales MD 07/03/2023 14:47:33
[2023-07-02 14:01] VITALS: BP 168/87; PULSE 84; O2SAT 92
[2023-07-02 14:09] LABS: Blood Urea Nitrogen 19 mg/dl (7-17); Carbon Dioxide 30 mmol/L (22.0-30.0); Chloride 100 mmol/L (98-107); Creatinine Clearance Estimated 66 mL/min (50-200); Estimated Glomerular Filt Rate 74 ml/min (>60); GFR (African American) 90 ML/MIN (>60)
[2023-07-02 14:10] LABS: Anion Gap 7.1 mEq/L (5-15); Calcium 8.7 mg/dl (8.4-10.2); Glucose 114 mg/dl (74-100); Potassium 5.1 mmoL/L (3.5-5.1); Sodium 132 mmol/L (136-145)
[2023-07-02 14:30] VITALS: BP 166/80; PULSE 69; O2SAT 92
[2023-07-02 15:06] VITALS: BP 166/80; PULSE 69; RESP 19; TEMP 36.7
== END 2023-07-02 15:06 | disposition home or self-care (01) ==
PROVIDERS: Emergency Provider Emergency Medicine; PCP Family Medicine
DX: R51.9 Headache, unspecified (principal); R42 Dizziness and giddiness; I11.0 Hypertensive heart disease with heart failure; I50.33 Acute on chronic diastolic (congestive) heart failure; J44.9 Chronic obstructive pulmonary disease, unspecified; E78.5 Hyperlipidemia, unspecified; G47.33 Obstructive sleep apnea (adult) (pediatric); I27.20 Pulmonary hypertension, unspecified; E03.9 Hypothyroidism, unspecified; F17.210 Nicotine dependence, cigarettes, uncomplicated
CPT/HCPCS: 80048; 93005; 99283

== ENCOUNTER 2023-09-30 10:17 | Outpatient (CLI) | payer MEDICARE, OTHER, SELFPAY ==
[2023-09-30 10:57] LABS: Basophils # 0.1 K/mm3 (0-0.2); Basophils % 0.6 % (0.1-2.0); Eosinophils # 0.3 K/mm3 (0.0-0.4); Eosinophils % 3.3 % (0.1-12.0); Hematocrit 39.8 % (37.0-47.0); Hemoglobin 12.6 g/dL (12.2-16.2); Lymphocytes # 1.8 K/mm3 (0.7-4.5); Mean Corpuscular HGB Conc 31.6 g/dL (31.8-35.4); Mean Corpuscular Hemoglobin 28.6 pg (27.0-31.2); Mean Corpuscular Volume 90.6 fl (81-99); Mean Platelet Volume 8.1 fl (7.4-10.4); Monocytes # 0.4 K/mm3 (0.1-1.0); Neutrophils # 6.3 K/mm3 (1.8-7.8); Platelet Count 270 K/mm3 (142-424); Red Cell Distribution Width 16.7 % (11.5-17.5); White Blood Count 8.8 K/mm3 (4.8-10.8)
[2023-09-30 11:05] LABS: Hemoglobin A1C 6.4 % (4.0-6.0)
[2023-09-30 11:24] LABS: Chloride 100 mmol/L (98-107); Potassium 4.3 mmoL/L (3.5-5.1); Sodium 135 mmol/L (136-145)
[2023-09-30 11:27] LABS: Alanine Aminotransferase 19 U/L (12-78); Albumin Level 3.5 g/dl (3.5-5.0); Albumin/Globulin Ratio 1.2 (1.1-1.8); Alkaline Phosphatase 124 U/L (38-126); Anion Gap 7.3 mEq/L (5-15); Aspartate Amino Transferase 27 U/L (14-36); Bilirubin,Total 0.3 mg/dl (0.2-1.3); Blood Urea Nitrogen 14 mg/dl (7-17); Calcium 9.4 mg/dl (8.4-10.2); Carbon Dioxide 32 mmol/L (22.0-30.0); Cholesterol 229 mg/dl (140-200); Estimated Glomerular Filt Rate 74 ml/min (>60); GFR (African American) 90 ML/MIN (>60); Glucose 110 mg/dl (74-100); Total Protein,Serum 6.5 g/dl (6.3-8.2); Triglycerides 107 mg/dl (30-150); VLDL Cholesterol 21 mg/dL (0-40)
[2023-09-30 11:28] LABS: Chol/HDL Ratio 4.3 (1-3.5); HDL Cholesterol 53 mg/dl (40-60)
[2023-09-30 11:39] LABS: Direct LDL Cholesterol 131.61 mg/dL (100-129)
== END 2023-09-30 23:59 ==
LOC: LAB 10:18
PROVIDERS: PCP Internal Medicine; Visit Provider Internal Medicine
DX: E11.9 Type 2 diabetes mellitus without complications; R71.8 Other abnormality of red blood cells; E03.9 Hypothyroidism, unspecified; Z79.899 Other long term (current) drug therapy
CPT/HCPCS: 36415; 80053; 80061; 83036; 84439; 84443; 85025

== ENCOUNTER 2023-09-30 10:34 | Emergency (ER) | payer MEDICARE, OTHER, SELFPAY ==
[2023-09-30 10:50] VITALS: BP 149/71; PULSE 74; RESP 18; TEMP 36.9; O2SAT 100; BMI 64.8
--- NOTE | 2023-09-30 10:53 | EXP.UTC ---
Discharge Plan Disposition Patient Disposition: Home, Self-Care Condition: Good Prescriptions Prescriptions: New furosemide 20 mg tablet 20 mg PO DAILY 7 Days Qty: 7 0RF nitrofurantoin monohyd/m-cryst [Macrobid] 100 mg Capsule 100 mg PO BID Qty: 10 0RF Rx Instructions: must administer with a meal/food No Action albuterol sulfate 90 mcg/actuation HFA aerosol inhaler 2 puff inhalation Q4-6H PRN (Reason: Wheezing) bupropion HCl 200 mg tablet sustained-release 12 hr 400 mg PO DAILY levothyroxine 150 mcg tablet 300 mcg PO DAILY lisinopril 40 mg tablet 40 mg PO DAILY ropinirole 4 mg tablet 4 mg PO DAILY furosemide 40 mg tablet 40 mg PO DAILY ipratropium-albuterol 0.5 mg-3 mg(2.5 mg base)/3 mL solution for nebulization 3 ml inhalation QID PRN (Reason: shortness of breath or wheezing) Qty: 180 10RF (DME) blood-glucose meter [Accu-Chek Guide Glucose Meter] Misc See Rx Instructions .Route Qty: 1 3RF Rx Instructions: As directed (DME) Accu-Chek Guide test strips Strip See Rx Instructions .Route Qty: 50 3RF Rx Instructions: As directed Trelegy Ellipta 100-62.5-25 mcg blister with device See Rx Instructions .ROUTE .COMPLEX Qty: 60 10RF Dose Instruction: INHALE 1 PUFF BY MOUTH EVERY DAY Rx Instructions: INHALE 1 PUFF BY MOUTH EVERY DAY (DME) lancets [Accu-Chek Softclix Lancets] Misc See Rx Instructions .ROUTE .COMPLEX Qty: 200 3RF Dose Instruction: USE TO test blood sugar THREE TIMES DAILY Rx Instructions: USE TO test blood sugar THREE TIMES DAILY trazodone 150 mg tablet 300 mg PO HS Qty: 60 0RF Referrals Follow up/Referrals: Vahid Garcia DO [Primary Care Provider] - See instructions Activity Restrictions/Add. Instructions Additional Instructions/Restrictions: Eat a diet that is low in sodium. Try to take in less sodium than 2000 mg daily. Rest and elevate your legs and arms as much time as tolerated. Take the lasix (furosemide) 20 mg tablet in the evening around 5:00 pm for the next 7 days. Continue to take the lasix (furosemide) 40 mg tablet that you are already taking daily. Follow up with your primary care physician. GO TO THE ER FOR ANY WORSENING SYMPTOMS OR CONCERNS Clinical Impressions Clinical Impression: Dependent edema, UTI (urinary tract infection) Instructions Patient Instructions: Urinary Tract Infection, Urine Culture, DI for Urinary Tract Infection (UTI), Low-Sodium Diet, Edema Discharge ED Provider: Hernan Roberson [facility] [place] HPI General Stated complaint: Water retention in legs and arms Time Seen by Provider: 09/30/23 10:53 History of Present Illness Provider Complaint: She states that for the past week approximately she has been feeling more swollen in her bilateral legs and hands. She has saw her pcp for this and she had lab work drawn this morning for it. She also states that she has a history of chronic right knee pain that has worsened recently. She denies any known injury to the knee. Related Data Home Medications Medication Instructions Recorded Confirmed albuterol sulfate 90 mcg/actuation 2 puff inhalation Q4-6H PRN 09/17/23 09/30/23 aerosol inhaler Wheezing bupropion HCl 200 mg tablet,12 hr 400 mg PO DAILY 09/17/23 09/30/23 sustained-release furosemide 40 mg tablet 40 mg PO DAILY 09/17/23 09/30/23 levothyroxine 150 mcg tablet 300 mcg PO DAILY 09/17/23 09/30/23 lisinopril 40 mg tablet 40 mg PO DAILY 09/17/23 09/30/23 ropinirole 4 mg tablet 4 mg PO DAILY 09/17/23 09/30/23 Previous Rx's Medication Instructions Recorded ipratropium 0.5 mg-albuterol 3 mg 3 ml inhalation QID PRN shortness 08/11/22 (2.5 mg base)/3 mL nebulization of breath or wheezing #180 mL soln blood sugar diagnostic (Accu-Chek #50 ea 08/18/22 Guide test strips) blood-glucose meter (Accu-Chek #1 ea 08/18/22 Guide Glucose Meter) fluticasone fur. 100 mcg-umeclid See Rx Instructions .Route 04/07/23 62.5 mcg-vilant 25 mcg .COMPLEX #60 blisters inhalat.powder (Trelegy Ellipta) lancets (Accu-Chek Softclix #200 ea 04/13/23 Lancets) trazodone 150 mg tablet 300 mg (2 x 150 mg) PO HS #60 tabs 09/25/23 furosemide 20 mg tablet 20 mg PO DAILY 7 days #7 tabs 09/30/23 nitrofurantoin 100 mg PO BID #10 caps 09/30/23 monohydrate/macrocrystals 100 mg capsule (Macrobid) Allergies Allergy/AdvReac Type Severity Reaction Status Date / Time adhesive tape [ADHESIVE TAPE] Allergy Unknown Blister Verified 09/30/23 11:16 hydromorphone [From DILAUDID] Allergy Unknown Hypotension Verified 09/30/23 11:16 nickel [NICKEL] Allergy Unknown Blister Verified 09/30/23 11:16 [facility] Disclaimer: The information contained in this section may have been updated after the patient was seen, as this information can be updated by other users. Medical History (Updated 09/30/23 @ 12:05 by Hernan Roberson APRN) Restless leg Glaucoma Arthritis of both knees Urinary incontinence Unspecified asthma, uncomplicated Tear of meniscus of knee Pre-diabetes Diastolic CHF, acute on chronic Pulmonary hypertension Elevated left ventricular end-diastolic pressure (LVEDP) Asthma exacerbation Sleep apnea History of COVID-19 COPD (chronic obstructive pulmonary disease) Asthma Abscess of groin, right Acute exacerbation of chronic obstructive airways disease Left against medical advice Dependent on wheelchair Assistance needed for continence Incisional hernia Abdominal pain Lower leg pain Knee pain Vaginal bleeding Perimenopausal Cellulitis Hypothyroidism Dizziness Chest pain Sinusitis Tobacco abuse counseling Tobacco abuse HONEY (obstructive sleep apnea) Ventral hernia Dyspnea Depression Pharyngitis due to Streptococcus species Epigastric pain Gastritis Strep throat HTN (hypertension) Hypothyroidism (acquired) TIA (transient ischemic attack) COPD exacerbation Paresthesias Shortness of breath Acute bronchitis Tobacco abuse COPD (chronic obstructive pulmonary disease) Infiltrate of lung present on chest x-ray Atelectasis of right lung Cough Upper respiratory infection Surgical History History of lateral meniscus repair of right knee H/O tubal ligation Hx of cholecystectomy H/O hernia repair History of colon resection Family History Mother Hypertension Diabetes Father Cancer Social History Smoking Status: Former smoker tobacco type: cigarettes packs per day: 1 years smoked: 38 smoking status stop date: 3 months ago quit status: has quit before second hand exposure: Yes alcohol intake: never substance use type: denies use current occupational status: unemployed Travel in the last 8 weeks: None household members: family and children housing: other lives independently: No marital status: legally number of children: 4 education level: other caffeine: Yes do you feel safe at home: Yes victim of physical abuse: No victim of emotional abuse: No victim of sexual abuse: No ROS Obtained: Yes All systems reviewed & no additional complaints except as documented Constitutional Constitutional: Denies chills and Denies fever(s) Eyes Eyes: Denies eye discharge ENT Ears, Nose, Mouth, and Throat: Denies dizziness, Denies otalgia and Denies sore throat Cardiovascular Cardiovascular: Denies chest pain Respiratory Respiratory: Denies shortness of breath, Denies chest congestion, Denies cough, Denies stridor and Denies wheezing Gastrointestinal Gastrointestingal: Denies nausea or vomiting Musculoskeletal Musculoskeletal: Reports as per HPI Integumentary/Breasts Skin/Breast: Denies rash Neurologic Neurologic: Denies dizziness and Denies paresthesias Allergic/Immunologic Allergic/Immunologic: Denies wheezing Physical Exam General General appearance: alert and in no apparent distress Head Head exam: atraumatic, normocephalic and normal inspection Eye Eye exam: Present normal appearance, PERRL and EOMI ENT ENT exam: Present normal exam, normal oropharynx, mucous membranes moist, TM's normal bilaterally and normal external ear exam Neck Neck exam: Present normal inspection, full ROM and trachea midline; Absent meningismus or lymphadenopathy Chest Chest inspection: Present normal inspection and symmetric chest wall rise; Absent tenderness Respiratory Respiratory exam: Present normal lung sounds bilaterally; Absent respiratory distress Cardiovascular Cardiovascular exam: Present regular rate and normal rhythm; Absent JVD Abdominal Exam Abdominal exam: Present soft and normal bowel sounds; Absent distention, tenderness or guarding Extremities Exam Extremities exam: Present normal inspection, full ROM and normal capillary refill; Absent calf tenderness Back Exam Back exam: Present normal inspection; Absent tenderness Neurological Exam Neurological exam: Present alert and oriented X3 Psychiatric Psychiatric exam: Present normal affect and normal mood Skin Skin exam: Present warm, dry, intact and normal color Lymphatic Lymphatic Findings: no adenopathy Medical Decision Making Medical Records Medical records reviewed: No I reviewed the patient's medical records. [place] Inquiry Pt receiving controlled substance: No Lab Data Lab results reviewed: Yes I reviewed the patient's lab results.
[2023-09-30 11:18] LABS: Apearance,Urine Clear (Clear); Color,Urine Yellow (Yellow)
[2023-09-30 11:19] LABS: Bilirubin,Urine Negative (Negative); Blood, Urine 3+ (Negative); Glucose,Urine (UA) Negative (Negative); Ketones,Urine Negative (Negative); Protein,Urine Negative (Negative); Specific Gravity, Urine 1.015 (1.005-1.030); UTC Leukocyte Esterase,Urine Trace (Negative); UTC Nitrate,Urine Positive (Negative); Urobilinogen,Urine 0.2 EU/dl (0.2)
[2023-09-30 12:18] VITALS: BP 149/71; PULSE 74; RESP 18; TEMP 36.4; O2SAT 100
== END 2023-09-30 12:18 | disposition home or self-care (01) ==
PROVIDERS: Emergency Provider Nurse Practitioner Family; PCP Internal Medicine
DX: N39.0 Urinary tract infection, site not specified (principal); R60.9 Edema, unspecified; M25.561 Pain in right knee; G89.29 Other chronic pain; J44.9 Chronic obstructive pulmonary disease, unspecified; G47.33 Obstructive sleep apnea (adult) (pediatric); E03.9 Hypothyroidism, unspecified; I27.20 Pulmonary hypertension, unspecified; I50.33 Acute on chronic diastolic (congestive) heart failure; I11.0 Hypertensive heart disease with heart failure; Z86.73 Personal history of transient ischemic attack (TIA), and cerebral infarction without residual deficits; Z87.891 Personal history of nicotine dependence
CPT/HCPCS: 36415; 80053; 80061; 81003; 83036; 84439; 84443; 85025; 87086; 99212; 99214; G0463

== ENCOUNTER 2023-10-03 16:31 | Observation (INO) | payer MEDICARE, OTHER, SELFPAY ==
[2023-10-03] VITALS (7 sets, daily range): BP systolic 86–155; BP diastolic 52–78; PULSE 51–89; RESP 16–22; TEMP 36.4; O2SAT 98–100; BMI 64.8; BMI 66.3
--- NOTE | 2023-10-03 16:46 | PC.NURSE ---
pt given warm blanket
--- NOTE | 2023-10-03 17:06 | XR_ITS ---
PROCEDURE INFORMATION: Exam: XR Chest Exam date and time: 10/03/2023 5:15 PM Age: 53 years old Clinical indication: Shortness of breath; Additional info: SOA swelling TECHNIQUE: Imaging protocol: Radiologic exam of the chest. Views: 1 view. COMPARISON: CR XR CHEST 2V 06/30/2023 5:07 PM FINDINGS: Lungs: Mild regions of peribronchial thickening. Pleural spaces: Unremarkable. No pleural effusion. No pneumothorax. Heart/Mediastinum: Unremarkable. No cardiomegaly. Bones/joints: Unremarkable. IMPRESSION: Findings compatible with bronchitis.
--- NOTE | 2023-10-03 17:13 | ED_ITS ---
Discharge Plan Disposition Patient Disposition: Admitted Clinical Impressions Clinical Impression: Shortness of breath, Pulmonary edema Discharge ED Provider: Joselito Carlin General Chief Complaint: Shortness of Breath/Dyspnea Stated Complaint: Fluid build up,SOA,swelling,pain in arms Time Seen by Provider: 10/03/23 17:04 Mode of Arrival: Wheelchair Source of Information: Patient Limitations: No Limitations Description of Symptoms (Recalled from ER Triage Doc. by RN): Patient states she has had increased swelling and shortness of air, so she was seen in the [facility] on Thursday. They reccommended she increase her fluid pill, had a uti and to follow up with her PCP. States she increased her fluid pill and has just continued to get worse. States she wears oxygen at night at home and has recently been having to use her oxygen during the day. History of Present Illness HPI narrative: 53-year-old female with a history of pulmonary hypertension, CHF, obesity, hypertension, COPD presents to the ER with concerns of shortness of breath and increased swelling. Patient states she was evaluated for the same concerns 3 days ago at urgent care. My review of the records demonstrates they increased her furosemide. Patient states she is now on 60 mg daily but states that she is not having increased urinary output. She states her swelling continues to worsen and she states that the pants that she wore on Thursday to come to urgent care she could not get over her legs today. She states she wears oxygen at home at night but is now having to wear it during the day as well, even at rest. She is having pain in her arms from the swelling. She states her chest feels heavy. Related Data Home Medications Medication Instructions Recorded Confirmed albuterol sulfate 90 mcg/actuation 2 puff inhalation Q4-6H PRN 09/17/23 10/03/23 aerosol inhaler Wheezing bupropion HCl 200 mg tablet,12 hr 400 mg PO DAILY 09/17/23 10/03/23 sustained-release furosemide 40 mg tablet 40 mg PO DAILY 09/17/23 10/03/23 levothyroxine 150 mcg tablet 300 mcg PO DAILY 09/17/23 10/03/23 lisinopril 40 mg tablet 40 mg PO DAILY 09/17/23 10/03/23 ropinirole 4 mg tablet 4 mg PO DAILY 09/17/23 10/03/23 calcium carbonate 600 mg calcium 600 mg PO DAILY 10/03/23 10/03/23 (1,500 mg) tablet (Calcium) Previous Rx's Medication Instructions Recorded ipratropium 0.5 mg-albuterol 3 mg 3 ml inhalation QID PRN shortness 08/11/22 (2.5 mg base)/3 mL nebulization of breath or wheezing #180 mL soln blood sugar diagnostic (Accu-Chek #50 ea 08/18/22 Guide test strips) blood-glucose meter (Accu-Chek #1 ea 08/18/22 Guide Glucose Meter) fluticasone fur. 100 mcg-umeclid See Rx Instructions .Route 04/07/23 62.5 mcg-vilant 25 mcg .COMPLEX #60 blisters inhalat.powder (Trelegy Ellipta) lancets (Accu-Chek Softclix #200 ea 04/13/23 Lancets) trazodone 150 mg tablet 300 mg (2 x 150 mg) PO HS #60 tabs 09/25/23 furosemide 20 mg tablet 20 mg PO DAILY 7 days #7 tabs 09/30/23 nitrofurantoin 100 mg PO BID #10 caps 09/30/23 monohydrate/macrocrystals 100 mg capsule (Macrobid) Allergies Allergy/AdvReac Type Severity Reaction Status Date / Time adhesive tape [ADHESIVE TAPE] Allergy Unknown Blister Verified 09/30/23 11:16 hydromorphone [From DILAUDID] Allergy Unknown Hypotension Verified 09/30/23 11:16 nickel [NICKEL] Allergy Unknown Blister Verified 09/30/23 11:16 PFSH PFS Disclaimer: The information contained in this section may have been updated after the patient was seen, as this information can be updated by other users. Medical History (Updated 10/03/23 @ 20:31 by Joselito Carlin MD) Restless leg Glaucoma Arthritis of both knees Urinary incontinence Unspecified asthma, uncomplicated Tear of meniscus of knee Pre-diabetes Diastolic CHF, acute on chronic Pulmonary hypertension Elevated left ventricular end-diastolic pressure (LVEDP) Asthma exacerbation Sleep apnea History of COVID-19 COPD (chronic obstructive pulmonary disease) Asthma Abscess of groin, right Acute exacerbation of chronic obstructive airways disease Left against medical advice Dependent on wheelchair Assistance needed for continence Incisional hernia Abdominal pain Lower leg pain Knee pain Vaginal bleeding Perimenopausal Cellulitis Hypothyroidism Dizziness Chest pain Sinusitis Tobacco abuse counseling Tobacco abuse HONEY (obstructive sleep apnea) Ventral hernia Dyspnea Depression Pharyngitis due to Streptococcus species Epigastric pain Gastritis Strep throat HTN (hypertension) Hypothyroidism (acquired) TIA (transient ischemic attack) COPD exacerbation Paresthesias Shortness of breath Acute bronchitis Tobacco abuse COPD (chronic obstructive pulmonary disease) Infiltrate of lung present on chest x-ray Atelectasis of right lung Cough Upper respiratory infection Surgical History History of lateral meniscus repair of right knee H/O tubal ligation Hx of cholecystectomy H/O hernia repair History of colon resection Family History Mother Hypertension Diabetes Father Cancer Social History Smoking Status: Unknown if ever smoked years smoked: 38 smoking status stop date: 3 months ago quit status: has quit before second hand exposure: Yes alcohol intake: never substance use type: denies use current occupational status: unemployed Travel in the last 8 weeks: None household members: family and children housing: other lives independently: No marital status: legally number of children: 4 education level: other caffeine: Yes do you feel safe at home: Yes victim of physical abuse: No victim of emotional abuse: No victim of sexual abuse: No ROS Obtained: Yes All systems reviewed & no additional complaints except as documented Constitutional Constitutional: Denies chills, Denies fever(s), Denies headache(s) and Denies weakness Eyes Eyes: Denies change in vision ENT Ears, Nose, Mouth, and Throat: Denies dizziness, Denies headache(s), Denies nasal congestion and Denies sore throat Cardiovascular Cardiovascular: Reports chest pain (heaviness), Reports dyspnea, Reports leg edema and Reports orthopnea Respiratory Respiratory: Denies cough and Reports dyspnea Gastrointestinal Gastrointestingal: Denies constipation, diarrhea, nausea or vomiting Genitourinary Female Genitourinary: Denies dysuria Musculoskeletal Musculoskeletal: Denies arthralgias, Denies myalgias, Denies numbness and Denies tingling Integumentary/Breasts Skin/Breast: Denies change in pigmentation Neurologic Neurologic: Denies dizziness, Denies headache(s), Denies numbness, Denies tingling and Denies weakness Physical Exam General General appearance: alert and in no apparent distress Head Head exam: atraumatic and normocephalic Eye Eye exam: Present PERRL and EOMI ENT ENT exam: Present mucous membranes moist Neck Neck exam: Present normal inspection and full ROM Chest Chest inspection: Present symmetric chest wall rise Respiratory Respiratory exam: Present other (2 L nasal cannula); Absent normal lung sounds bilaterally (Breath sounds diminished), respiratory distress or stridor Cardiovascular Cardiovascular exam: Present regular rate and normal rhythm Abdominal Exam Abdominal exam: Present soft; Absent distention or tenderness Extremities Exam Extremities exam: Present full ROM and edema (Peripheral edema in upper and lower extremities) Neurological Exam Neurological exam: Present alert and oriented X3; Absent motor sensory deficit Psychiatric Psychiatric exam: Present normal affect and normal mood Skin Skin exam: Present warm and dry HEART Score HEART Score HEART Score assessment performed?: Yes History (anamnesis): Moderately suspicious ECG: Non-specific disturbance Age: 45-65 years Risk factors: 3 or more risk factors Troponin: </= normal limit HEART Score: 5 Critical Care Critical Care Time Critical Care Time: No Medical Decision Making Medical Records Medical records reviewed: Yes I reviewed the patient's medical records. [place] Inquiry Pt receiving controlled substance: No Vital Signs Vital Signs: 10/03/23 16:33 10/03/23 17:01 10/03/23 17:32 Temperature 97.5 F L Temperature Source Oral Pulse Rate 73 89 Pulse Rate [Radial] 51 L Respiratory Rate 22 Blood Pressure 130/64 86/64 L Blood Pressure [Right Arm] 153/68 H Blood Pressure Mean Blood Pressure Mean [Right Arm] 96 Blood Pressure Source [Right Arm] Automatic Cuff Blood Pressure Position [Right Arm] Sitting 02 Sat by Pulse Oximetry 98 99 98 Oxygen Delivery Method Nasal Cannula Room Air Oxygen Flow Rate (LPM) 2 10/03/23 18:21 10/03/23 18:30 10/03/23 21:17 Temperature 97.5 F L Temperature Source Pulse Rate 76 77 72 Pulse Rate [Radial] Respiratory Rate 22 22 Blood Pressure 152/65 H 155/55 H 151/78 H Blood Pressure [Right Arm] Blood Pressure Mean 94 Blood Pressure Mean [Right Arm] Blood Pressure Source [Right Arm] Blood Pressure Position [Right Arm] 02 Sat by Pulse Oximetry 99 100 Oxygen Delivery Method Room Air Oxygen Flow Rate (LPM) Lab Data Labs: Lab Results 10/03/23 17:18: WBC 9.0, RBC 4.26, Hgb 12.1 L, Hct 39.5, MCV 92.6, MCH 28.3, M CHC 30.6 L, RDW 16.4, Plt Count 310, MPV 8.4, Neut % (Auto) 71.2, Lymph % (Auto) 21.0, [place] % (Auto) 4.6, Eos % (Auto) 2.6, Baso % (Auto) 0.6, Neut # (Auto) 6.4, Lymph # (Auto) 1.9, [place] # (Auto) 0.4, Eos # (Auto) 0.2, Baso # (Auto) 0.1, Sodium 138, Potassium 4.1, Chloride 103, Carbon Dioxide 34 H, Anion Gap 5.1, BUN 15, Creatinine 1.00, Estimated Creat Clear 53, Estimated GFR 58 L, Est GFR ( Amer) 70, Glucose 144 H, Calcium 9.1, Total Bilirubin 0.1 L, AST 27, ALT 19, Alkaline Phosphatase 90, Troponin I < 0.01, NT-Pro-B Natriuret Pep 247 H , Total Protein 6.7, Albumin 3.4 L, Globulin 3.3 H, Albumin/Globulin Ratio 1.0 L 10/03/23 20:20: Troponin I < 0.01 10/03/23 17:18 10/03/23 17:18 Response Orders (Tests/Meds): ED MEDICATIONS Generic Name Dose Route Start Last Admin Trade Name Freq PRN Reason Stop Dose Admin Acetaminophen 650 mg 10/03/23 23:48 Acetaminophen 325mg Tab PO 11/02/23 23:47 Q6HP PRN Fever or Mild Pain (1-3) Albuterol/Ipratropium 3 ml 10/03/23 22:08 Ipratropium/Albuterol 3 Ml Neb 11/02/23 22:07 Q6HP PRN Shortness Of Breath Enoxaparin Sodium 60 mg 10/03/23 22:10 10/03/23 22:28 Enoxaparin 60mg/0.6ml Syringe SQ 11/02/23 22:09 60 mg BID LINDSEY Administration Furosemide 40 mg 10/03/23 23:50 Furosemide 40mg/4ml Vial IV 11/02/23 23:49 BIDL LINDSEY Cefepime HCl 2 gm/ Sodium 100 mls @ 200 mls/hr 10/03/23 22:00 10/03/23 22:24 Chloride IV 10/13/23 21:59 200 mls/hr Q8H LINDSEY Administration Levothyroxine Sodium 300 mcg 10/04/23 09:00 Levothyroxine 150mcg (0.15mg)Tab PO 11/03/23 08:59 DAILY LINDSEY Non-Formulary Medication 40 mg 10/04/23 09:00 Lisinopril PO 11/03/23 08:59 DAILY LINDSEY Non-Formulary Medication 400 mg 10/04/23 09:00 Bupropion Hcl PO 11/03/23 08:59 DAILY LINDSEY Non-Formulary Medication 4 mg 10/03/23 23:50 Ropinirole PO 11/02/23 23:49 DAILY LINDSEY Nystatin 30 gm 10/04/23 09:00 Nystatin Topical Powder 30gm TP 11/03/23 08:59 QID LINDSEY Ondansetron HCl 4 mg 10/03/23 23:48 Ondansetron 4mg/2ml Vial IV 11/02/23 23:47 Q6HP PRN Nausea Discontinued Medications Generic Name Dose Route Start Last Admin Trade Name Freq PRN Reason Stop Dose Admin Furosemide 60 mg 10/03/23 18:45 10/03/23 18:54 Furosemide 40mg/4ml Vial IV 10/03/23 18:46 60 mg ONCE ONE Administration Furosemide 40 mg 10/04/23 09:00 Furosemide 40mg/4ml Vial IV 11/03/23 08:59 BIDL LINDSEY Non-Formulary Medication 300 mg 10/04/23 21:00 Trazodone PO 11/03/23 20:59 HS LINDSEY Non-Formulary Medication 300 mg 10/03/23 23:50 Trazodone PO 11/02/23 23:49 HS LINDSEY ORDERS Category Date Time Status CXR --portable [XR chest portable] Stat Exams 10/03/23 17:06 Completed BNP [Brain Natriuretic Peptide] Stat Lab 10/03/23 17:18 Completed Basic Metabolic Panel AMLAB Lab 10/04/23 06:00 Ordered CBC w/Auto Diff [Complete Blood Count Auto Diff] Stat Lab 10/03/23 17:18 Completed CMP [Comprehensive Metabolic Panel] Stat Lab 10/03/23 17:18 Completed Complete Blood Count Auto Diff AMLAB Lab 10/04/23 06:00 Ordered Trop I [Troponin I] Stat Lab 10/03/23 17:18 Completed Troponin I Q3H Lab 10/03/23 20:20 Completed Troponin I Q3H Lab 10/03/23 23:10 Received MDM Narrative Medical Decision Narrative: In summary, this 53year old female presents to the emergency department today with increased shortness of breath, chest heaviness/pain, swelling. On initial evaluation patient is hemodynamically stable though she is bradycardic, she is requiring 2 L nasal cannula even at rest, lungs are clear bilaterally, she has significant peripheral edema throughout. Differential diagnosis includes but is not limited to ACS, CHF exacerbation, I considered COPD exacerbation, pleural effusion, electrolyte abnormality, poor kidney function due to increased diuretic use. Based on these concerns, I ordered cardiac workup, chest x-ray. ECG personally interpreted demonstrates normal sinus rhythm, rate 72, patient has a right bundle branch block and poor R wave progression, based on my review of her prior EKGs, today's is very similar. No acute changes. No STEMI. Patient received IV Lasix for treatment. Labs personally reviewed demonstrate no leukocytosis, mild anemia present, CMP with no actionable electrolyte abnormalities, BUN and creatinine demonstrate findings of good kidney function, initial troponin undetectable at less than 0.01, no LFT abnormality, initial BNP 247, this is not significantly elevated given the patient's clinical picture, however chest x-ray on my personal interpretation is concerning for significant pulmonary edema, see radiology read for final interpretation. Patient did have increased urination after receiving the IV Lasix on my reassessment. She continues requiring increased amounts of oxygen compared to her baseline at home so I believe she requires admission. I discussed this case with the hospitalist service including findings of pulmonary edema, peripheral edema, and poor response to oral Lasix at home. Patient was accepted for admission.
--- NOTE | 2023-10-03 17:14 | ECG_ITS ---
APPROVED REPORT Exam: Resting ECG HR:72 bpm ECG Measurements Heart Rate 72 AXES SC 175 P 72 QRSd 155 QRS -55 QT 431 T 67 QTc 455 Conclusion SINUS RHYTHM RIGHT BUNDLE BRANCH BLOCK LEFT ANTERIOR FASCICULAR BLOCK Electronically signed by : THERESA CANO, 10/04/2023 03:03:28
--- NOTE | 2023-10-03 17:19 | PC.NURSE ---
rad at bedside
[2023-10-03 17:30] LABS: Chloride 103 mmol/L (98-107); Potassium 4.1 mmoL/L (3.5-5.1); Sodium 138 mmol/L (136-145)
[2023-10-03 17:33] LABS: Alanine Aminotransferase 19 U/L (12-78); Albumin Level 3.4 g/dl (3.5-5.0); Alkaline Phosphatase 90 U/L (38-126); Anion Gap 5.1 mEq/L (5-15); Aspartate Amino Transferase 27 U/L (14-36); Basophils # 0.1 K/mm3 (0-0.2); Basophils % 0.6 % (0.1-2.0); Blood Urea Nitrogen 15 mg/dl (7-17); Carbon Dioxide 34 mmol/L (22.0-30.0); Creatinine Clearance Estimated 53 mL/min (50-200); Eosinophils # 0.2 K/mm3 (0.0-0.4); Eosinophils % 2.6 % (0.1-12.0); Estimated Glomerular Filt Rate 58 ml/min (>60); GFR (African American) 70 ML/MIN (>60); Globulin 3.3 g/dL (1.3-3.2); Hematocrit 39.5 % (37.0-47.0); Hemoglobin 12.1 g/dL (12.2-16.2); Lymphocytes # 1.9 K/mm3 (0.7-4.5); Mean Corpuscular HGB Conc 30.6 g/dL (31.8-35.4); Mean Corpuscular Hemoglobin 28.3 pg (27.0-31.2); Mean Corpuscular Volume 92.6 fl (81-99); Mean Platelet Volume 8.4 fl (7.4-10.4); Monocytes # 0.4 K/mm3 (0.1-1.0); Monocytes % 4.6 % (1.7-9.3); Neutrophils # 6.4 K/mm3 (1.8-7.8); Neutrophils % 71.2 % (37.0-80.0); Platelet Count 310 K/mm3 (142-424); Red Blood Count 4.26 M/mm3 (4.20-5.40); Red Cell Distribution Width 16.4 % (11.5-17.5); Total Protein,Serum 6.7 g/dl (6.3-8.2)
[2023-10-03 17:34] LABS: Calcium 9.1 mg/dl (8.4-10.2); Glucose 144 mg/dl (74-100)
[2023-10-03 17:39] LABS: Bilirubin,Total 0.1 mg/dl (0.2-1.3)
[2023-10-03 17:43] LABS: NT Pro Brain Natriuretic Pep. 247 pg/mL (0-125)
[2023-10-03 17:46] LABS: Troponin I < 0.01 ng/ml (0.00-0.034)
--- NOTE | 2023-10-03 18:49 | PC.NURSE ---
pt given sandwich chips and drink
[2023-10-03] MEDS: FUROSEMIDE 40MG/4ML VIAL 60 MG IV (18:54)
[2023-10-03 20:53] LABS: Troponin I < 0.01 ng/ml (0.00-0.034)
--- NOTE | 2023-10-03 20:53 | PC.NURSE ---
spoke with willie, family of patient, and advised of admission status
--- NOTE | 2023-10-03 21:29 | PC.NURSE ---
Patient arrived to floor via wheelchair from ED at 21:28.
--- NOTE | 2023-10-03 21:42 | P.HP_ITS ---
History of Present Illness *Admission Date: 10/03/23 *Reason for visit:: CHF exacerbation *History of present illness: 53 year old female presented to the [facility] ED for increased peripheral edema, shortness of breath, and urinary symptoms. PMHX of chf, obesity, tobacco abuse, depression, htn, and copd. She is currently requiring 2L of oxygen. She was seen at urgent care on the with failed outpatient therapy for UTI and edema. The ED workup revealed pCO2 of 55.1, bnp of 247, chest xray with peribronchial thickening, and urine positive for nitrates. She was given 60mg of lasix. The ED physician consulted the hospitalist team for further medical management. I admitted the pt to the medical floor. She is no acute distress upon my admission exam. [facility] Disclaimer: The information contained in this section may have been updated after the patient was seen, as this information can be updated by other users. Medical History (Updated 10/03/23 @ 20:31 by Joselito Carlin MD) Restless leg Glaucoma Arthritis of both knees Urinary incontinence Unspecified asthma, uncomplicated Tear of meniscus of knee Pre-diabetes Diastolic CHF, acute on chronic Pulmonary hypertension Elevated left ventricular end-diastolic pressure (LVEDP) Asthma exacerbation Sleep apnea History of COVID-19 COPD (chronic obstructive pulmonary disease) Asthma Abscess of groin, right Acute exacerbation of chronic obstructive airways disease Left against medical advice Dependent on wheelchair Assistance needed for continence Incisional hernia Abdominal pain Lower leg pain Knee pain Vaginal bleeding Perimenopausal Cellulitis Hypothyroidism Dizziness Chest pain Sinusitis Tobacco abuse counseling Tobacco abuse HONEY (obstructive sleep apnea) Ventral hernia Dyspnea Depression Pharyngitis due to Streptococcus species Epigastric pain Gastritis Strep throat HTN (hypertension) Hypothyroidism (acquired) TIA (transient ischemic attack) COPD exacerbation Paresthesias Shortness of breath Acute bronchitis Tobacco abuse COPD (chronic obstructive pulmonary disease) Infiltrate of lung present on chest x-ray Atelectasis of right lung Cough Upper respiratory infection Surgical History History of lateral meniscus repair of right knee H/O tubal ligation Hx of cholecystectomy H/O hernia repair History of colon resection Family History Mother Hypertension Diabetes Father Cancer Social History Smoking Status: Unknown if ever smoked years smoked: 38 smoking status stop date: 3 months ago quit status: has quit before second hand exposure: Yes alcohol intake: never substance use type: denies use current occupational status: unemployed Travel in the last 8 weeks: None household members: family and children housing: other lives independently: No marital status: legally number of children: 4 education level: other caffeine: Yes do you feel safe at home: Yes victim of physical abuse: No victim of emotional abuse: No victim of sexual abuse: No Review of Systems Review of Systems Review of systems:: pertinent systems reviewed and negative unless documented below Constitutional Constitutional: Denies headache(s) and Denies weakness ENT Ears, Nose, Mouth, and Throat: Denies dizziness and Denies headache(s) *Musculoskeletal Musculoskeletal: Denies numbness and Denies tingling *Neurologic Neurologic: Denies dizziness, Denies headache(s), Denies numbness, Denies tingling and Denies weakness Meds Home Medications and Allergies Home Medications Medication Instructions Recorded Confirmed Type ipratropium 0.5 mg-albuterol 3 mg 3 ml inhalation QID PRN shortness 08/11/22 10/03/23 Rx (2.5 mg base)/3 mL nebulization of breath or wheezing #180 mL soln blood sugar diagnostic (Accu-Chek #50 ea 08/18/22 10/03/23 Rx Guide test strips) blood-glucose meter (Accu-Chek #1 ea 08/18/22 10/03/23 Rx Guide Glucose Meter) fluticasone fur. 100 mcg-umeclid See Rx Instructions .Route 04/07/23 10/03/23 Rx 62.5 mcg-vilant 25 mcg .COMPLEX #60 blisters inhalat.powder (Trelegy Ellipta) lancets (Accu-Chek Softclix #200 ea 04/13/23 10/03/23 Rx Lancets) albuterol sulfate 90 mcg/actuation 2 puff inhalation Q4-6H PRN 09/17/23 10/03/23 History aerosol inhaler Wheezing bupropion HCl 200 mg tablet,12 hr 400 mg PO DAILY 09/17/23 10/03/23 History sustained-release furosemide 40 mg tablet 40 mg PO DAILY 09/17/23 10/03/23 History levothyroxine 150 mcg tablet 300 mcg PO DAILY 09/17/23 10/03/23 History lisinopril 40 mg tablet 40 mg PO DAILY 09/17/23 10/03/23 History ropinirole 4 mg tablet 4 mg PO DAILY 09/17/23 10/03/23 History trazodone 150 mg tablet 300 mg (2 x 150 mg) PO HS #60 tabs 09/25/23 10/03/23 Rx furosemide 20 mg tablet 20 mg PO DAILY 7 days #7 tabs 09/30/23 10/03/23 Rx nitrofurantoin 100 mg PO BID #10 caps 09/30/23 10/03/23 Rx monohydrate/macrocrystals 100 mg capsule (Macrobid) calcium carbonate 600 mg calcium 600 mg PO DAILY 10/03/23 10/03/23 History (1,500 mg) tablet (Calcium) New Prescriptions to Start Prescriptions: Allergies Allergy/AdvReac Type Severity Reaction Status Date / Time adhesive tape [ADHESIVE TAPE] Allergy Unknown Blister Verified 09/30/23 11:16 hydromorphone [From DILAUDID] Allergy Unknown Hypotension Verified 09/30/23 11:16 nickel [NICKEL] Allergy Unknown Blister Verified 09/30/23 11:16 Exam Data for Last 24 hours Vital signs and Labs for Last 24 Hours: Temp Pulse Resp BP Pulse Ox O2 Del Method O2 Flow Rate 97.5 F L 72 22 151/78 H 100 Room Air 2 10/03/23 21:17 10/03/23 21:17 10/03/23 21:17 10/03/23 21:17 10/03/23 18:30 10/03/23 18:30 10/03/23 16:33 Laboratory Results - last 24 hr 10/03/23 17:18: WBC 9.0, RBC 4.26, Hgb 12.1 L, Hct 39.5, MCV 92.6, MCH 28.3, MCHC 30.6 L, RDW 16.4, Plt Count 310, MPV 8.4, Neut % (Auto) 71.2, Lymph % (Auto) 21.0, [place] % (Auto) 4.6, Eos % (Auto) 2.6, Baso % (Auto) 0.6, Neut # (Auto) 6.4, Lymph # (Auto) 1.9, [place] # (Auto) 0.4, Eos # (Auto) 0.2, Baso # (Auto) 0.1, Sodium 138, Potassium 4.1, Chloride 103, Carbon Dioxide 34 H, Anion Gap 5.1, BUN 15, Creatinine 1.00, Estimated Creat Clear 53, Estimated GFR 58 L, Est GFR ( Amer) 70, Glucose 144 H, Calcium 9.1, Total Bilirubin 0.1 L, AST 27, ALT 19, Alkaline Phosphatase 90, Troponin I < 0.01, NT-Pro-B Natriuret Pep 247 H, Total Protein 6.7, Albumin 3.4 L, Globulin 3.3 H, Albumin/Globulin Ratio 1.0 L 10/03/23 20:20: Troponin I < 0.01 I & O for Last 24 hours: Intake & Output 09/30/23 10/01/23 10/02/23 10/03/23 23:59 23:59 23:59 23:59 Weight 166.015 kg Constitutional Constitutional: obese *Routine HEENT Exam Head: Present normocephalic Eye: Present EOMI ENT: Present mucous membranes moist *Routine Neck Exam Neck: Present full ROM *Routine Respiratory Exam Respiratory: Present wheezes and symmetric chest movement *Routine Cardiovascular Exam Cardiovascular: Present RRR *Routine Abdominal Exam Abdominal: Present soft, normoactive bowel sounds and distended; Absent tenderness *Routine Rectal Exam Rectal:: deferred *Routine Genitalia Exam Genitalia:: deferred *Routine Extremities Exam Extremities: Present edema and full ROM *Routine Skin Exam Skin: Present intact *Routine Neurological Exam Neurological: Present alert and oriented X3 Assessment and Plan *Assessment and plan (1) Pulmonary edema: Status: Acute Category: Medical Code(s): J81.1 - Chronic pulmonary edema (2) Shortness of breath: Status: Acute Category: Medical Code(s): R06.02 - Shortness of breath (3) UTI (urinary tract infection): Status: Acute Category: Medical Code(s): N39.0 - Urinary tract infection, site not specified (4) COPD (chronic obstructive pulmonary disease): Status: Acute Qualifiers: COPD type: unspecified COPD Qualified Code(s): J44.9 - Chronic obstructive pulmonary disease, unspecified Category: Medical Code(s): J44.9 - Chronic obstructive pulmonary disease, unspecified (5) Hypothyroidism (acquired): Status: Acute Category: Medical Code(s): E03.9 - Hypothyroidism, unspecified (6) HTN (hypertension): Status: Acute Category: Medical Code(s): I10 - Essential (primary) hypertension (7) Depression: Status: Acute Category: Medical Code(s): F32.A - Depression, unspecified (8) Obesity: Status: Acute Category: Medical Code(s): E66.9 - Obesity, unspecified Plan 53 year old female presented to the [facility] ED for increased peripheral edema, shortness of breath, and urinary symptoms. PMHX of chf, obesity, tobacco abuse, depression, htn, and copd. She is currently requiring 2L of oxygen. She was seen at urgent care on the with failed outpatient therapy for UTI and edema. The ED workup revealed pCO2 of 55.1, bnp of 247, chest xray with peribronchial thickening, and urine positive for nitrates. She was given 60mg of lasix. The ED physician consulted the hospitalist team for further medical management. I admitted the pt to the medical floor. She is no acute distress upon my admission exam. PULMONARY EDEMA SOB UTI -continue diuresis with lasix IV -oxygen as needed to maintain o2 above 92% -failed outpatient therapy for uti with macrobid -start IV cefepime 8mg q 8hr -strict i/o -cardiology consult placed, thank you for the help COPD HYPOTHYROIDISM HTN DEPRESSION -behavioral health consult placed for thought of wanting to harm self. Denies active thoughts of SI. -Duonebs q 6hr prn -continue bupropion, levothyroxine, lisinopril, and trazodone OBESITY -complicates all aspects of care FULL CODE CARDIAC DIET DVT: LOVENOX
[2023-10-03] MEDS: CEFEPIME HCL 2 GM in 0.9 % SODIUM CHLORIDE 100 ML IV (22:24)
[2023-10-03] MEDS: ENOXAPARIN 60MG/0.6ML SYRINGE 60 MG SQ (22:28)
[2023-10-04 00:01] LABS: Troponin I < 0.01 ng/ml (0.00-0.034)
[2023-10-04] MEDS: FUROSEMIDE 40MG/4ML VIAL 40 MG IV ×3 (00:09→15:55)
[2023-10-04] MEDS: ROPINIROLE 2 MG 2 EACH PO (00:09)
[2023-10-04] MEDS: TRAZODONE 50MG TABLET 150 MG PO ×2 (03:37→20:40)
[2023-10-04] MEDS: ACETAMINOPHEN 325MG TAB 650 MG PO (03:37)
[2023-10-04 04:00] VITALS: BP 133/61; PULSE 86; RESP 16; TEMP 36.6; O2SAT 95; BMI 66.3
--- NOTE | 2023-10-04 04:40 | PC.NURSE ---
Pt is alert and oriented. Pt has complained of pain in her hands, treated per sep. Pt using purewick with significant output. Umbilical hernia present. Excoriation noted to abdominal folds and umbilicus. Remains on 2L NC, O2 sat >92%. Wheezing present in lungs. Call light in reach.
[2023-10-04] MEDS: CEFEPIME HCL 2 GM in 0.9 % SODIUM CHLORIDE 100 ML IV ×2 (06:36→18:41)
[2023-10-04 07:28] LABS: Basophils # 0.1 K/mm3 (0-0.2); Basophils % 0.9 % (0.1-2.0); Eosinophils # 0.3 K/mm3 (0.0-0.4); Eosinophils % 2.9 % (0.1-12.0); Hematocrit 40.7 % (37.0-47.0); Hemoglobin 12.4 g/dL (12.2-16.2); Lymphocytes # 2.4 K/mm3 (0.7-4.5); Lymphocytes % 26.9 % (10-50); Mean Corpuscular HGB Conc 30.5 g/dL (31.8-35.4); Mean Corpuscular Hemoglobin 28.4 pg (27.0-31.2); Mean Corpuscular Volume 92.9 fl (81-99); Mean Platelet Volume 8.8 fl (7.4-10.4); Monocytes # 0.4 K/mm3 (0.1-1.0); Monocytes % 4.8 % (1.7-9.3); Neutrophils # 5.7 K/mm3 (1.8-7.8); Neutrophils % 64.5 % (37.0-80.0); Platelet Count 326 K/mm3 (142-424); Red Blood Count 4.38 M/mm3 (4.20-5.40); Red Cell Distribution Width 16.5 % (11.5-17.5); White Blood Count 8.8 K/mm3 (4.8-10.8)
[2023-10-04 07:39] LABS: Anion Gap 5.9 mEq/L (5-15); Blood Urea Nitrogen 17 mg/dl (7-17); Calcium 9.3 mg/dl (8.4-10.2); Carbon Dioxide 39 mmol/L (22.0-30.0); Chloride 96 mmol/L (98-107); Creatinine Clearance Estimated 50 mL/min (50-200); Estimated Glomerular Filt Rate 58 ml/min (>60); GFR (African American) 70 ML/MIN (>60); Glucose 141 mg/dl (74-100); Potassium 3.9 mmoL/L (3.5-5.1); Sodium 137 mmol/L (136-145)
[2023-10-04 08:00] VITALS: BP 145/76; PULSE 75; RESP 18; TEMP 36.8; O2SAT 94
[2023-10-04] MEDS: buPROPion HCL 100 MG TABLET 200 MG PO ×2 (09:00→20:36)
[2023-10-04] MEDS: LISINOPRIL 20MG TABLET 40 MG PO (09:01)
[2023-10-04] MEDS: LEVOTHYROXINE 150MCG (0.15MG)TAB 300 MCG PO (09:01)
[2023-10-04] MEDS: ROPINIROLE 1MG TABLET 4 MG PO (09:01)
[2023-10-04] MEDS: ENOXAPARIN 60MG/0.6ML SYRINGE 60 MG SQ ×2 (09:01→20:36)
[2023-10-04] MEDS: NYSTATIN TOPICAL POWDER 30GM TP ×4 (09:02→20:36)
[2023-10-04] MEDS: HYDROCODONE/APAP 5/325 MG TABLET 1 TAB PO (09:14)
--- NOTE | 2023-10-04 09:29 | HMH.PHAINT1 ---
Pharmacy Intervention Comments: MEDICATION RECONCILIATION COMPLETED ON PATIENT USING EXTERNAL FILL HISTORY FROM PHARMACY. -DG YEUNG, ROCKD
--- NOTE | 2023-10-04 14:03 | EXP.PN ---
Subjective *Date: 10/04/23 *Time: 14:03 Interval history: seen at bedside, denied CP, N/A. complains of L hand pain Exam Data for Last 24 hours Vital signs and Labs for Last 24 Hours: Temp Pulse Resp BP Pulse Ox O2 Del Method O2 Flow Rate 98.2 F 75 18 145/76 H 94 L Nasal Cannula 2 10/04/23 08:00 10/04/23 08:00 10/04/23 08:00 10/04/23 08:00 10/04/23 08:00 10/04/23 13:00 10/04/23 08:00 Laboratory Results - last 24 hr 10/03/23 17:18: WBC 9.0, RBC 4.26, Hgb 12.1 L, Hct 39.5, MCV 92.6, MCH 28.3, MCHC 30.6 L, RDW 16.4, Plt Count 310, MPV 8.4, Neut % (Auto) 71.2, Lymph % (Auto) 21.0, [place] % (Auto) 4.6, Eos % (Auto) 2.6, Baso % (Auto) 0.6, Neut # (Auto) 6.4, Lymph # (Auto) 1.9, [place] # (Auto) 0.4, Eos # (Auto) 0.2, Baso # (Auto) 0.1, Sodium 138, Potassium 4.1, Chloride 103, Carbon Dioxide 34 H, Anion Gap 5.1, BUN 15, Creatinine 1.00, Estimated Creat Clear 53, Estimated GFR 58 L, Est GFR ( Amer) 70, Glucose 144 H, Calcium 9.1, Total Bilirubin 0.1 L, AST 27, ALT 19, Alkaline Phosphatase 90, Troponin I < 0.01, NT-Pro-B Natriuret Pep 247 H, Total Protein 6.7, Albumin 3.4 L, Globulin 3.3 H, Albumin/Globulin Ratio 1.0 L 10/03/23 20:20: Troponin I < 0.01 10/03/23 23:10: Troponin I < 0.01 10/04/23 06:31: WBC 8.8, RBC 4.38, Hgb 12.4, Hct 40.7, MCV 92.9, MCH 28.4, MCHC 30.5 L, RDW 16.5, Plt Count 326, MPV 8.8, Neut % (Auto) 64.5, Lymph % (Auto) 26.9, [place] % (Auto) 4.8, Eos % (Auto) 2.9, Baso % (Auto) 0.9, Neut # (Auto) 5.7, Lymph # (Auto) 2.4, [place] # (Auto) 0.4, Eos # (Auto) 0.3, Baso # (Auto) 0.1, Sodium 137, Potassium 3.9, Chloride 96 L, Carbon Dioxide 39 H, Anion Gap 5.9, BUN 17, Creatinine 1.00, Estimated Creat Clear 50, Estimated GFR 58 L, Est GFR ( Amer) 70, Glucose 141 H, Calcium 9.3 I & O for Last 24 hours: Intake & Output 10/01/23 10/02/23 10/03/23 10/04/23 23:59 23:59 23:59 23:59 Intake Total 720 / 720 Output Total 500 / 500 2700 / 2700 Balance -500 / -500 -1979 / Weight 169.78 kg 169.78 kg Constitutional Constitutional: no acute distress *Routine HEENT Exam Head: Present normocephalic Eye: Present EOMI and PERRL ENT: Present mucous membranes moist *Routine Neck Exam Neck: Present supple; Absent lymphadenopathy *Routine Respiratory Exam Respiratory: Present CTA bilaterally *Routine Cardiovascular Exam Cardiovascular: Present RRR *Routine Abdominal Exam Abdominal: Present soft and normoactive bowel sounds; Absent tenderness *Routine Extremities Exam Extremities: Absent cyanosis, clubbing or edema *Routine Skin Exam Skin: Present warm; Absent rash *Routine Neurological Exam Neurological: Present alert and oriented X3 Assessment and Plan *Assessment and plan (1) Pulmonary edema: Status: Acute Category: Medical Code(s): J81.1 - Chronic pulmonary edema (2) Shortness of breath: Status: Acute Category: Medical Code(s): R06.02 - Shortness of breath (3) UTI (urinary tract infection): Status: Acute Category: Medical Code(s): N39.0 - Urinary tract infection, site not specified (4) COPD (chronic obstructive pulmonary disease): Status: Acute Qualifiers: COPD type: unspecified COPD Qualified Code(s): J44.9 - Chronic obstructive pulmonary disease, unspecified Category: Medical Code(s): J44.9 - Chronic obstructive pulmonary disease, unspecified (5) Hypothyroidism (acquired): Status: Acute Category: Medical Code(s): E03.9 - Hypothyroidism, unspecified (6) HTN (hypertension): Status: Acute Category: Medical Code(s): I10 - Essential (primary) hypertension (7) Depression: Status: Acute Category: Medical Code(s): F32.A - Depression, unspecified (8) Obesity: Status: Acute Category: Medical Code(s): E66.9 - Obesity, unspecified Plan 53 year old female presented to the [facility] ED for increased peripheral edema, shortness of breath, and urinary symptoms. PMHX of chf, obesity, tobacco abuse, depression, htn, and copd. She is currently requiring 2L of oxygen. 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 Denies active thoughts of SI. -Duonebs q 6hr prn -continue bupropion, levothyroxine, lisinopril, and trazodone OBESITY -complicates all aspects of care FULL CODE CARDIAC DIET DVT: LOVENOX continue IV lasix, likely DC tomorrow pending cardiology eval
[2023-10-04 15:43] VITALS: BP 130/57; PULSE 74; RESP 18; TEMP 36.7; O2SAT 94
--- NOTE | 2023-10-04 17:01 | PC.NURSE ---
PT IS RESTING IN BED. ALERT AND ORIENTED X3. EATING AND DRINKING WELL. PT WAS COMPLAINING OF PAIN THIS MORNING IN HER LEFT HAND. PT STATED HER HAND HAS BEEN HURTING FOR THE LAST 5 DAYS AND IT WAS WHAT BROUGHT HER TO THE HOSPITAL TO BEGIN WITH. PT STATED SHE HAS BEEN TAKING IBUPROFEN AT HOME AND HAS ALSO USED WARM COMPRESSES AND HAS NOT HAD ANY RELIEF. NOTIFIED . NORCO ORDERED ONE TIME AND SHE ALSO NOW HAS A SPLINT ON. PT'S LUNG SOUNDS DIMINISHED. ABDOMEN LARGE/SOFT WITH HYPOACTIVE BOWEL SOUNDS. UMBILICAL HERNIA NOTED. DIURESING WELL. ROOM AIR SATURATION 93%. WILL CONTINUE TO MONITOR.
[2023-10-04 20:00] VITALS: BP 130/63; PULSE 79; RESP 16; TEMP 36.6; O2SAT 96
[2023-10-05 04:00] VITALS: BP 120/79; PULSE 80; RESP 16; TEMP 36.9; O2SAT 91; BMI 66.3
--- NOTE | 2023-10-05 05:24 | PC.NURSE ---
Pt alert and oriented. Pt has had no complaints this shift. Splint to left hand in place. Purewick in place. Lung sounds diminished. Bilateral lower extremity edema present. Call light in reach.
[2023-10-05] MEDS: CEFEPIME HCL 2 GM in 0.9 % SODIUM CHLORIDE 100 ML IV (06:08)
[2023-10-05] MEDS: LEVOTHYROXINE 150MCG (0.15MG)TAB 300 MCG PO (06:08)
[2023-10-05 07:32] LABS: Basophils # 0.1 K/mm3 (0-0.2); Basophils % 1.1 % (0.1-2.0); Eosinophils # 0.3 K/mm3 (0.0-0.4); Eosinophils % 3.3 % (0.1-12.0); Hematocrit 41.9 % (37.0-47.0); Lymphocytes # 2.2 K/mm3 (0.7-4.5); Lymphocytes % 26.4 % (10-50); Mean Corpuscular HGB Conc 31.1 g/dL (31.8-35.4); Mean Corpuscular Hemoglobin 28.5 pg (27.0-31.2); Mean Corpuscular Volume 91.6 fl (81-99); Mean Platelet Volume 8.2 fl (7.4-10.4); Monocytes # 0.4 K/mm3 (0.1-1.0); Monocytes % 5.1 % (1.7-9.3); Neutrophils # 5.3 K/mm3 (1.8-7.8); Neutrophils % 64.1 % (37.0-80.0); Platelet Count 317 K/mm3 (142-424); Red Blood Count 4.58 M/mm3 (4.20-5.40); Red Cell Distribution Width 16.4 % (11.5-17.5); White Blood Count 8.2 K/mm3 (4.8-10.8)
[2023-10-05 07:52] LABS: Albumin Level 3.6 g/dl (3.5-5.0); Albumin/Globulin Ratio 0.9 (1.1-1.8); Alkaline Phosphatase 92 U/L (38-126); Anion Gap 5.4 mEq/L (5-15); Bilirubin,Total 0.4 mg/dl (0.2-1.3); Blood Urea Nitrogen 19 mg/dl (7-17); Calcium 9.3 mg/dl (8.4-10.2); Carbon Dioxide 35 mmol/L (22.0-30.0); Chloride 95 mmol/L (98-107); Creatinine Clearance Estimated 50 mL/min (50-200); Estimated Glomerular Filt Rate 58 ml/min (>60); GFR (African American) 70 ML/MIN (>60); Globulin 3.8 g/dL (1.3-3.2); Glucose 142 mg/dl (74-100); Potassium 4.4 mmoL/L (3.5-5.1); Sodium 131 mmol/L (136-145); Total Protein,Serum 7.4 g/dl (6.3-8.2)
[2023-10-05 08:00] VITALS: BP 119/56; PULSE 75; RESP 20; TEMP 36.5; O2SAT 92
[2023-10-05] MEDS: ROPINIROLE 1MG TABLET 4 MG PO (08:26)
[2023-10-05] MEDS: FUROSEMIDE 40MG/4ML VIAL 40 MG IV (08:27)
[2023-10-05] MEDS: LISINOPRIL 20MG TABLET 40 MG PO (08:27)
[2023-10-05] MEDS: ENOXAPARIN 60MG/0.6ML SYRINGE 60 MG SQ (08:27)
[2023-10-05] MEDS: buPROPion HCL 100 MG TABLET 200 MG PO (08:27)
[2023-10-05] MEDS: SODIUM CHLORIDE 0.9% 10ML FLUSH SYRINGE 10 ML IV (08:28)
[2023-10-05] MEDS: NYSTATIN TOPICAL POWDER 30GM TP (08:30)
[2023-10-05 08:37] LABS: Alanine Aminotransferase 19 U/L (12-78); Aspartate Amino Transferase 29 U/L (14-36)
--- NOTE | 2023-10-05 12:19 | P.DS_ITS ---
General Admission date:: 10/03/23 Discharge date: 10/05/23 HPI HPI HPI: 53 year old female presented to the [facility] ED for increased peripheral edema, shortness of breath, and urinary symptoms. PMHX of chf, obesity, tobacco abuse, depression, htn, and copd. She is currently requiring 2L of oxygen. She was seen at urgent care on the with failed outpatient therapy for UTI and edema. The ED workup revealed pCO2 of 55.1, bnp of 247, chest xray with peribronchial thickening, and urine positive for nitrates. She was given 60mg of lasix. The ED physician consulted the hospitalist team for further medical management. I admitted the pt to the medical floor. She is no acute distress upon my admission exam. Hospital Course Hospital Course Hospital Course: 53 year old female presented to the [facility] ED for increased peripheral edema, shortness of breath, and urinary symptoms. PMHX of chf, obesity, tobacco abuse, depression, htn, and copd. Initiated on oxygen during admission. Able to wean from 2 L to room air. Cardiology and behavioral health were consulted during admission and assisted with care. Patient was diuresed aggressively with good response and ability to wean to room air. Depression stable. Meeting criteria for discharge home to continue treatment as an outpatient. Problems addressed as follows: PULMONARY EDEMA SOB UTI -Concern for pulmonary edema with component of CHF. Patient was initiated on diuretics with good response. -4 and half liters during admission. Cardiology was consulted and assisted with care. Able to wean from supplemental oxygen to room air. Patient is also initiated on antibiotics for possible UTI. Given response to diuresis and improvement in respiratory status, will continue diuretics at discharge with Lasix 40 mg p.o. twice daily to maintain fluid status. Will transition to cefdinir to complete antibiotic course. Clinically stable to discharge home with follow-up with cardiology and PCP as an outpatient. 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 Received wrist splint during admission. Would benefit from therapy as an outpatient. Having similar pain in her right wrist. Will defer further management to PCP. COPD HYPOTHYROIDISM HTN DEPRESSION -behavioral health consult placed for thought of wanting to harm self. Denies active thoughts of SI. Follow-up with behavioral health as an outpatient. Continue medications including Wellbutrin, levothyroxine, lisinopril, trazodone. No signs or thoughts of SI/HI on day of discharge. Mood stable on exam Exam Data for Last 24 hours Vital signs and Labs for Last 24 Hours: Temp Pulse Resp BP Pulse Ox O2 Del Method O2 Flow Rate 97.7 F 75 20 119/56 L 92 L Room Air 2 10/05/23 08:00 10/05/23 08:00 10/05/23 08:00 10/05/23 08:00 10/05/23 08:00 10/05/23 11:00 10/04/23 15:43 Laboratory Results - last 24 hr 10/05/23 07:15: WBC 8.2, RBC 4.58, Hgb 13.0, Hct 41.9, MCV 91.6, MCH 28.5, MCHC 31.1 L, RDW 16.4, Plt Count 317, MPV 8.2, Neut % (Auto) 64.1, Lymph % (Auto) 26.4, [place] % (Auto) 5.1, Eos % (Auto) 3.3, Baso % (Auto) 1.1, Neut # (Auto) 5.3, Lymph # (Auto) 2.2, [place] # (Auto) 0.4, Eos # (Auto) 0.3, Baso # (Auto) 0.1, Sodium 131 L, Potassium 4.4, Chloride 95 L, Carbon Dioxide 35 H, Anion Gap 5.4, BUN 19 H, Creatinine 1.00, Estimated Creat Clear 50, Estimated GFR 58 L, Est GFR ( Amer) 70, Glucose 142 H, Calcium 9.3, Magnesium 2.0, Total Bilirubin 0.4, AST 29, ALT 19, Alkaline Phosphatase 92, Total Protein 7.4, Albumin 3.6, Globulin 3.8 H, Albumin/Globulin Ratio 0.9 L I & O for Last 24 hours: Intake & Output 10/02/23 10/03/23 10/04/23 10/05/23 23:59 23:59 23:59 23:59 Intake Total 1200 / 1300 340 / 340 Output Total 500 / 500 4900 / 4900 1600 / 1600 Balance -500 / -500 -3700 / -3600 -1260 / -1260 Weight 169.78 kg 169.78 kg 169.87 kg Constitutional Constitutional: no acute distress, morbidly obese, chronically ill appearing and cooperative *Routine HEENT Exam Head: Present normocephalic Eye: Present EOMI and PERRL ENT: Present mucous membranes moist *Routine Neck Exam Neck: Present supple; Absent lymphadenopathy *Routine Respiratory Exam Respiratory: Present rhonchi, distant breath sounds and diminished air movement; Absent wheezes or crackles *Routine Cardiovascular Exam Cardiovascular: Present RRR *Routine Abdominal Exam Abdominal: Present soft and normoactive bowel sounds; Absent tenderness or distended *Routine Rectal Exam Patient deferred: visual exam *Routine Exam Patient deferred: external exam *Routine Extremities Exam Extremities: Absent cyanosis, clubbing or edema *Routine Skin Exam Skin: Present intact and warm; Absent rash *Routine Neurological Exam Neurological: Present alert, oriented X3 and moving all extremities; Absent altered mental status Routine Psychiatric Exam Psychiatric: Present normal affect Results Data Completed and Pending Labs on day of discharge: Labs from last 24 hours 10/05/23 07:15 WBC 8.2 RBC 4.58 Hgb 13.0 Hct 41.9 MCV 91.6 MCH 28.5 MCHC 31.1 L RDW 16.4 Plt Count 317 MPV 8.2 Neut % (Auto) 64.1 Lymph % (Auto) 26.4 [place] % (Auto) 5.1 Eos % (Auto) 3.3 Baso % (Auto) 1.1 Neut # (Auto) 5.3 Lymph # (Auto) 2.2 [place] # (Auto) 0.4 Eos # (Auto) 0.3 Baso # (Auto) 0.1 Sodium 131 L Potassium 4.4 Chloride 95 L Carbon Dioxide 35 H Anion Gap 5.4 BUN 19 H Creatinine 1.00 Estimated Creat Clear 50 Estimated GFR 58 L Est GFR ( Amer) 70 Glucose 142 H Calcium 9.3 Magnesium 2.0 Total Bilirubin 0.4 AST 29 ALT 19 Alkaline Phosphatase 92 Total Protein 7.4 Albumin 3.6 Globulin 3.8 H Albumin/Globulin Ratio 0.9 L DS: Diagnosis Discharge Diagnosis (1) Pulmonary edema: Status: Acute Code(s): J81.1 - Chronic pulmonary edema (2) Shortness of breath: Status: Acute Code(s): R06.02 - Shortness of breath (3) UTI (urinary tract infection): Status: Acute Code(s): N39.0 - Urinary tract infection, site not specified (4) COPD (chronic obstructive pulmonary disease): Status: Acute Code(s): J44.9 - Chronic obstructive pulmonary disease, unspecified Qualifiers: COPD type: unspecified COPD Qualified Code(s): J44.9 - Chronic ob structive pulmonary disease, unspecified (5) Hypothyroidism (acquired): Status: Acute Code(s): E03.9 - Hypothyroidism, unspecified (6) HTN (hypertension): Status: Acute Code(s): I10 - Essential (primary) hypertension (7) Depression: Status: Acute Code(s): F32.A - Depression, unspecified (8) Obesity: Status: Acute Code(s): E66.9 - Obesity, unspecified Meds Home Medications and Allergies Home Medications Medication Instructions Recorded Confirmed Type blood sugar diagnostic (Accu-Chek #50 ea 08/18/22 10/03/23 Rx Guide test strips) blood-glucose meter (Accu-Chek #1 ea 08/18/22 10/03/23 Rx Guide Glucose Meter) lancets (Accu-Chek Softclix #200 ea 04/13/23 10/03/23 Rx Lancets) albuterol sulfate 90 mcg/actuation 2 puff inhalation Q4HP PRN Wheezing 09/17/23 10/04/23 History aerosol inhaler bupropion HCl 200 mg tablet,12 hr 400 mg PO DAILY 09/17/23 10/04/23 History sustained-release levothyroxine 150 mcg tablet 300 mcg PO DAILY 09/17/23 10/03/23 History lisinopril 40 mg tablet 40 mg PO DAILY 09/17/23 10/03/23 History ropinirole 4 mg tablet 4 mg PO DAILY 09/17/23 10/03/23 History trazodone 150 mg tablet 300 mg (2 x 150 mg) PO HS #60 tabs 09/25/23 10/03/23 Rx nitrofurantoin 100 mg PO BID #10 caps 09/30/23 10/03/23 Rx monohydrate/macrocrystals 100 mg capsule (Macrobid) calcium carbonate 600 mg calcium 600 mg PO DAILY 10/03/23 10/03/23 History (1,500 mg) tablet (Calcium) fluticasone fur. 100 mcg-umeclid 1 ea inhalation DAILY Breathing 10/04/23 10/04/23 History 62.5 mcg-vilant 25 mcg Problems inhalat.powder (Trelegy Ellipta) ibuprofen 800 mg tablet 800 mg PO Q8HP PRN Mild Pain 10/04/23 10/04/23 History (Scale Score 1-4) cefdinir 300 mg capsule 300 mg PO BID 4 days #8 caps 10/05/23 Rx furosemide 40 mg tablet 40 mg PO BID Fluid 30 days #60 tabs 10/05/23 Rx New Prescriptions to Start Prescriptions: cefdinir Hernan Barros furosemide Papo,Hernan Allergies Allergy/AdvReac Type Severity Reaction Status Date / Time adhesive tape [ADHESIVE TAPE] Allergy Unknown Blister Verified 09/30/23 11:16 hydromorphone [From DILAUDID] Allergy Unknown Hypotension Verified 09/30/23 11:16 nickel [NICKEL] Allergy Unknown Blister Verified 09/30/23 11:16 Discharge Plan Disposition Patient Disposition: Home, Self-Care Condition: Fair Follow up Plan Follow up with: Alicja Wei APRN [Nurse Practitioner] - 11/02/23 11:30 am Vahid Garcia DO [Primary Care Provider] - 10/14/23 9:00 am Thierry Mann MD [Staff Physician] - 10/15/23 2:45 pm Prescriptions/Medication Reconciliation: New cefdinir 300 mg capsule 300 mg PO BID 4 Days Qty: 8 0RF Continued albuterol sulfate 90 mcg/actuation HFA aerosol inhaler 2 puff inhalation Q4HP PRN (Reason: Wheezing) bupropion HCl 200 mg tablet sustained-release 12 hr 400 mg PO DAILY levothyroxine 150 mcg tablet 300 mcg PO DAILY lisinopril 40 mg tablet 40 mg PO DAILY ropinirole 4 mg tablet 4 mg PO DAILY (DME) blood-glucose meter [Accu-Chek Guide Glucose Meter] Misc See Rx Instructions .Route Qty: 1 3RF Rx Instructions: As directed (DME) Accu-Chek Guide test strips Strip See Rx Instructions .Route Qty: 50 3RF Rx Instructions: As directed (DME) lancets [Accu-Chek Softclix Lancets] Misc See Rx Instructions .ROUTE .COMPLEX Qty: 200 3RF Dose Instruction: USE TO test blood sugar THREE TIMES DAILY Rx Instructions: USE TO test blood sugar THREE TIMES DAILY trazodone 150 mg tablet 300 mg PO HS Qty: 60 0RF calcium carbonate [Calcium 600] 600 mg calcium (1,500 mg) Tablet 600 mg PO DAILY ibuprofen 800 mg tablet 800 mg PO Q8HP PRN (Reason: Mild Pain (Scale Score 1-4)) Patient Comments: TAKE ONE TABLET BY MOUTH EVERY 8 HOURS NEEDED FOR PAIN --TAKE WITH FOOD-- Trelegy Ellipta 100-62.5-25 mcg blister with device 1 ea INHALATION DAILY Patient Comments: INHALE 1 PUFF BY MOUTH EVERY DAY --RINSE MOUTH AFTER USE-- nitrofurantoin monohyd/m-cryst [Macrobid] 100 mg Capsule 100 mg PO BID Qty: 10 0RF Rx Instructions: must administer with a meal/food Changed furosemide 40 mg tablet 40 mg PO BID 30 Days Qty: 60 0RF Patient Comments: TAKE ONE TABLET BY MOUTH EVERY DAY Problem Reconciliation Problems Reviewed?: Yes Patient Discharge Instructions ACTIVITY: Continue current activity DIET: continue same diet Patient Instructions: DI for Heart Failure, DI for Urinary Tract Infection (UTI), How to Create a Suicide Prevention Safety Plan Providers Primary Care Provider: Vahid Garcia Admit Provider: Aileen North Attending Provider: Aileen North
--- NOTE | 2023-10-05 12:20 | CA_ITS ---
APPROVED REPORT EXAM: Comprehensive 2D, Doppler, and color-flow Echocardiogram Rn Documentation: Ngozi Grigsby RVT Ht: 5 ft 2 in Wt: 374lbs BSA: 2.49 BP: 119/56 mmHg Indications: CHF,COPD,SOA,HTN,SMOKER TDS-PT BODY HABITUS Echo Enhancing Agent Indication: Endocardial border delineation Agent(s) / Amount(s) Used: Definity 2 cc M-Mode Dimensions RVDd 3.83 cm (0.9-2.6) LA Diam 2.42 cm (1.9-4.0) LVDd 3.93 cm (3.5-5.7) LVDs 2.60 cm (3.5-5.7) IVSd 0.59 cm (0.6-1.1) PWd 0.74 cm (0.6-1.1) EF (Teich) 63.30% FS 33.80% EDV (Teich) 67.10 mL ESV (Teich) 24.60 mL LV Diastology E Decel Time 150 (160-240 msec) E/A Ratio 0.8 Aortic Valve AO Peak GR. 6.30 mmHg Mitral Valve MV E Max Marques. 76.0 (40-130 cm/s) MV A Velocity 95.0 (40-130 cm/s) E/A Ratio 0.80 MV PHT 44.0 ms Pulmonary Valve PV Peak Velocity 74.0 (50-150 cm/s) Left Ventricle The left ventricle is normal size. The left ventricular systolic function is low normal. There is borderline global hypokinesis present. There is increased LV wall thickness. The septum appears asynchronous. Diastolic function is indeterminate. No left ventricle thrombus noted on this study. LVEF is 50%. Right Ventricle The right ventricle is not very well-visualized, but grossly appears mildly dilated with mild reduction in RV function. Atria The left atrium size is normal. The right atrium size is normal. There is no Doppler evidence of interatrial shunt. Aortic Valve The aortic valve opens well. There is no aortic valvular stenosis. Trace aortic regurgitation is present. Mitral Valve The mitral valve leaflets are mildly thickened. No evidence of mitral valve stenosis. Trace mitral regurgitation. Tricuspid Valve The tricuspid valve leaflets are not well-visualized. Trace tricuspid regurgitation. There is insufficient TR jet to estimate RVSP. Pulmonic Valve The pulmonic valve leaflets are not well-visualized. Trace pulmonic regurgitation. Great Vessels The aortic root is not well-visualized. The IVC is not well-visualized. Pericardium There is no pericardial effusion. Other Information Study Quality: Technically Difficult Conclusion Technically difficult study due to poor acoustic windows. Low normal LV systolic function (LVEF 50%). Asynchronous septum. The right ventricle is not very well-visualized, but grossly appears mildly dilated with mild reduction in RV function. No significant valvular stenosis or regurgitation. Electronically signed by : Candice Mann MD 10/06/2023 00:40:05
[2023-10-05] MEDS: DEFINITY US ECHO CONTRAST 2ML INJ 2 MG IV (14:03)
--- NOTE | 2023-10-05 14:21 | HMH.OTEV ---
OT Inpatient Evaluation Rehab OT IP Evaluation Start: 10/05/23 11:30 Freq: ONCE Status: Active Protocol: Document 10/05/23 14:15 [facility] (Rec: 10/05/23 14:21 [facility] [id number]) Rehab OT IP Assessment Subjective History Pt oriented x 3 on arrival. Pt agreeable to engage in therapy evaluation. Pt admitted on 10/03/23 due to CHF exacerbation. History and Physical report: 53 year old female presented to the [facility] ED for increased peripheral edema, shortness of breath, and urinary symptoms. PMHX of chf, obesity, tobacco abuse, depression, htn, and copd. She is currently requiring 2L of oxygen. She was seen at urgent care on the with failed outpatient therapy for UTI and edema. The ED workup revealed pCO2 of 55 .1, bnp of 247, chest xray with peribronchial thickening, and urine positive for nitrates. She was given 60mg of lasix. The ED physician consulted the hospitalist team for further medical management. I admitted the pt to the medical floor. She is no acute distress upon my admission exam. Subjective I can usually do what I need to. Pt reports prior to being in the hospital, she lived at home with her two sons. Normally she used a wheelchair in order to get around her home. However, she was able to propel herself independently and transfer to and from wheelchair to other surfaces independently using a cane. Pt claims to be independent with all ADLs and IADLs as well. Pt's uses o2 at night. Objective Patient Orientation Person,Place,Birthday Right Upper Extremity Gross ROM Mod Limitation 50% Left Upper Extremity Gross ROM WFL Wrist Limitations of Range of Motion Pain Bed Mobility bed mobility-scooting,bed mobility - supine/sit Assist Level Supervision/Stand by Rehab OT IP prob,goals,plan Problems Date of Evaluation: 10/05/23 Rehab Potential Rehab Potential Innapropriate for Skilled Therapy Discharge Plan OT Discharge Plan Pt appears to be at her baseline with functional transfers and ADL independence . Pt can return home once she is medically stable per physician. Pt was fitted with a pre-alberto wrist cock up brace to right wrist size medium due to continued pain at wrist and possible CTS. Pt was educated on appropriate wear and care of brace; pt verbalized understanding. Pt wore brace for ~5 minutes prior to therapist leaving room with prn skin checks; no problem areas occured. Eval Complexity Eval Charge Codes 61316 - Moderate Complexity PHYSICIAN CERTIFICATION: I certify the specified therapy services for Stacey George are required, authorized, and reviewed every 30 days.
--- NOTE | 2023-10-05 14:48 | HMH.PHAINT1 ---
Pharmacy Intervention Comments: DISCHARGE MEDICATION COUNSELING PROVIDED. DISCUSSED THE FOLLOWING MEDICATIONS: -START CEFDINIR (ANTIBIOTIC, TAKE TWICE DAILY, START TONIGHT, TAKE WITH FOOD, N/V/D POSSIBLE) -FUROSEMIDE (DOSE INCREASE FROM ONCE DAILY TO TWICE DAILY, TARGET 1400 TO 1500 FOR THE SECOND DOSE TO AVOID HAVING TO GET UP TO USE THE BATHROOM AT NIGHT). PATIENT VERBALIZED NO QUESTIONS AT THIS TIME.
--- NOTE | 2023-10-05 14:57 | P.CONCA_ITS ---
History of Present Illness History of Present Illness Consult date: 10/05/23 Requesting physician: Hernan Barros Consult reason: congestive heart failure Chief complaint: SOA History of present illness: 53-year-old white female, morbidly obese with BMI 66, history of HFpEF, COPD, untreated obstructive sleep apnea. Presented to the ER with complaints of bilateral upper extremity discomfort and swelling. In the emergency room she was found to be positive for UTI, chest x-ray consistent with bronchitis, proBNP 247, EKG bifascicular block. She was admitted over the weekend and started on IV antibiotics and diuretics. She has diuresed 4.5 L and feels back to her baseline. Patient states she has known obstructive sleep apnea but has not worn a mask and is due for repeat evaluation. BMI 66, she saw bariatrics in [place] and was told she was not a candidate for surgery due to her depression. PCP mention GLP-1 recently but has not started yet. She is interested in trying. [facility] Disclaimer: The information contained in this section may have been updated after the patient was seen, as this information can be updated by other users. Medical History Restless leg Glaucoma Arthritis of both knees Urinary incontinence Unspecified asthma, uncomplicated Tear of meniscus of knee Pre-diabetes Diastolic CHF, acute on chronic Pulmonary hypertension Elevated left ventricular end-diastolic pressure (LVEDP) Asthma exacerbation Sleep apnea History of COVID-19 COPD (chronic obstructive pulmonary disease) Asthma Abscess of groin, right Acute exacerbation of chronic obstructive airways disease Left against medical advice Dependent on wheelchair Assistance needed for continence Incisional hernia Abdominal pain Lower leg pain Knee pain Vaginal bleeding Perimenopausal Cellulitis Hypothyroidism Dizziness Chest pain Sinusitis Tobacco abuse counseling Tobacco abuse HONEY (obstructive sleep apnea) Ventral hernia Dyspnea Depression Pharyngitis due to Streptococcus species Epigastric pain Gastritis Strep throat HTN (hypertension) Hypothyroidism (acquired) TIA (transient ischemic attack) COPD exacerbation Paresthesias Shortness of breath Acute bronchitis Tobacco abuse COPD (chronic obstructive pulmonary disease) Infiltrate of lung present on chest x-ray Atelectasis of right lung Cough Upper respiratory infection Surgical History History of lateral meniscus repair of right knee H/O tubal ligation Hx of cholecystectomy H/O hernia repair History of colon resection Family History Mother Hypertension Diabetes Father Cancer Social History Smoking Status: Unknown if ever smoked years smoked: 38 smoking status stop date: 3 months ago quit status: has quit before second hand exposure: Yes alcohol intake: never substance use type: denies use current occupational status: unemployed Travel in the last 8 weeks: None household members: family and children housing: other lives independently: No marital status: legally number of children: 4 education level: other caffeine: Yes do you feel safe at home: Yes victim of physical abuse: No victim of emotional abuse: No victim of sexual abuse: No Review of Systems Constitutional Constitutional: Denies headache(s) and Reports weakness Eyes Eyes: Denies loss of vision ENT Ears, Nose, Mouth, and Throat: Denies dizziness and Denies headache(s) *Cardiovascular Cardiovascular: Denies chest pain and Reports dyspnea Comments: Bilateral lower extremity edema *Respiratory Respiratory: Denies cough and Reports dyspnea *Gastrointestinal Gastrointestinal: Denies change in stool character, Denies nausea and Denies vomiting *Musculoskeletal Musculoskeletal: Denies numbness and Denies tingling Integumentary/Breasts Skin/Breast: Denies changing lesions *Neurologic Neurologic: Denies dizziness, Denies headache(s), Denies loss of vision, Denies numbness, Denies tingling and Reports weakness Exam Data for Last 24 hours Vital signs and Labs for Last 24 Hours: Temp Pulse Resp BP Pulse Ox O2 Del Method O2 Flow Rate 97.7 F 75 20 119/56 L 92 L Room Air 2 10/05/23 08:00 10/05/23 08:00 10/05/23 08:00 10/05/23 08:00 10/05/23 08:00 10/05/23 13:00 10/04/23 15:43 Laboratory Results - last 24 hr 10/05/23 07:15: WBC 8.2, RBC 4.58, Hgb 13.0, Hct 41.9, MCV 91.6, MCH 28.5, MCHC 31.1 L, RDW 16.4, Plt Count 317, MPV 8.2, Neut % (Auto) 64.1, Lymph % (Auto) 26.4, [place] % (Auto) 5.1, Eos % (Auto) 3.3, Baso % (Auto) 1.1, Neut # (Auto) 5.3, Lymph # (Auto) 2.2, [place] # (Auto) 0.4, Eos # (Auto) 0.3, Baso # (Auto) 0.1, Sodium 131 L, Potassium 4.4, Chloride 95 L, Carbon Dioxide 35 H, Anion Gap 5.4, BUN 19 H, Creatinine 1.00, Estimated Creat Clear 50, Estimated GFR 58 L, Est GFR ( Amer) 70, Glucose 142 H, Calcium 9.3, Magnesium 2.0, Total Bilirubin 0.4, AST 29, ALT 19, Alkaline Phosphatase 92, Total Protein 7.4, Albumin 3.6, Globulin 3.8 H, Albumin/Globulin Ratio 0.9 L I & O for Last 24 hours: Intake & Output 10/02/23 10/03/23 10/04/23 10/05/23 23:59 23:59 23:59 23:59 Intake Total 1200 / 1300 580 / 580 Output Total 500 / 500 4900 / 4900 1600 / 1600 Balance -500 / -500 -3700 / -3600 -1020 / -1020 Weight 374 lb 4.8 oz 374 lb 4.813 oz 374 lb 8 oz Constitutional Constitutional: no acute distress, morbidly obese and cooperative *Routine HEENT Exam Eye: Present PERRL *Routine Respiratory Exam Respiratory: Present CTA bilaterally; Absent accessory muscle use, wheezes or crackles *Routine Cardiovascular Exam Cardiovascular: Present RRR, Normal S1 and Normal S2; Absent murmur, gallop or rubs *Routine Abdominal Exam Abdominal: Present soft; Absent tenderness Comments: Large left lower quadrant incisional hernia *Routine Extremities Exam Extremities: Present pulses intact; Absent cyanosis or edema *Routine Skin Exam Skin: Present intact; Absent erythema or wounds *Routine Neurological Exam Neurological: Present alert and oriented X3 Routine Psychiatric Exam Psychiatric: Present cooperative Meds Home Medications and Allergies Home Medications Medication Instructions Recorded Confirmed Type blood sugar diagnostic (Accu-Chek #50 ea 08/18/22 10/03/23 Rx Guide test strips) blood-glucose meter (Accu-Chek #1 ea 08/18/22 10/03/23 Rx Guide Glucose Meter) lancets (Accu-Chek Softclix #200 ea 04/13/23 10/03/23 Rx Lancets) albuterol sulfate 90 mcg/actuation 2 puff inhalation Q4HP PRN Wheezing 09/17/23 10/04/23 History aerosol inhaler bupropion HCl 200 mg tablet,12 hr 400 mg PO DAILY 09/17/23 10/04/23 History sustained-release levothyroxine 150 mcg tablet 300 mcg PO DAILY 09/17/23 10/03/23 History lisinopril 40 mg tablet 40 mg PO DAILY 09/17/23 10/03/23 History ropinirole 4 mg tablet 4 mg PO DAILY 09/17/23 10/03/23 History trazodone 150 mg tablet 300 mg (2 x 150 mg) PO HS #60 tabs 09/25/23 10/03/23 Rx nitrofurantoin 100 mg PO BID #10 caps 09/30/23 10/03/23 Rx monohydrate/macrocrystals 100 mg capsule (Macrobid) calcium carbonate 600 mg calcium 600 mg PO DAILY 10/03/23 10/03/23 History (1,500 mg) tablet (Calcium) fluticasone fur. 100 mcg-umeclid 1 ea inhalation DAILY Breathing 10/04/23 10/04/23 History 62.5 mcg-vilant 25 mcg Problems inhalat.powder (Trelegy Ellipta) ibuprofen 800 mg tablet 800 mg PO Q8HP PRN Mild Pain 10/04/23 10/04/23 History (Scale Score 1-4) cefdinir 300 mg capsule 300 mg PO BID 4 days #8 caps 10/05/23 Rx furosemide 40 mg tablet 40 mg PO BID Fluid 30 days #60 tabs 10/05/23 Rx New Prescriptions to Start Prescriptions: cefdinir Papo,Hernan furosemide Papo,Hernan Allergies Allergy/AdvReac Type Severity Reaction Status Date / Time adhesive tape [ADHESIVE TAPE] Allergy Unknown Blister Verified 09/30/23 11:16 hydromorphone [From DILAUDID] Allergy Unknown Hypotension Verified 09/30/23 11:16 nickel [NICKEL] Allergy Unknown Blister Verified 09/30/23 11:16 Assessment and Plan *Assessment and plan (1) (HFpEF) heart failure with preserved ejection fraction: Status: Acute Category: Medical Code(s): I50.30 - Unspecified diastolic (congestive) heart failure (2) UTI (urinary tract infection): Status: Acute Category: Medical Code(s): N39.0 - Urinary tract infection, site not specified (3) HONEY (obstructive sleep apnea): Status: Acute Category: Medical Code(s): G47.33 - Obstructive sleep apnea (adult) (pediatric) (4) Morbid obesity: Status: Acute Category: Medical Code(s): E66.01 - Morbid (severe) obesity due to excess calories Plan HFpEF -Echo in 2021 showed diastolic dysfunction, patient is presenting here with volume overload and dyspnea on exertion. Her proBNP is only 247 -Will repeat 2D echo -She has diuresed 4.5 L and feels back to her baseline -Cont Lasix 1-2x daily PRN -add Jardiance 10mg daily -Advise she needs treatment of her sleep apnea and aggressive weight loss UTI -Positive nitrites -Plans per primary service Morbid obesity, BMI 66 -States she has seen bariatrics with in [place] previously and was not a candidate for intervention due to her depression -Consider GLP-1 outpatient, she is seeing PCP for this Obstructive sleep apnea, untreated -Patient has known diagnosis but has not used machine in years -She is agreeable to repeat outpatient home sleep study CV stable, will update chart with echo results when available. Likely okay for discharge home today
--- NOTE | 2023-10-06 15:15 | CARE MANAGER ---
Called and spoke with patient regarding recent discharge. Patient stated that she has started new medication and was aware of scheduled f/u appts. No concerns voiced at time of call.
== END 2023-10-05 16:00 | disposition home or self-care (01) ==
LOC: ER 20:31 → 2ND 20:52
PROVIDERS: Internal Medicine Adolescent Medicine; Nurse Practitioner Critical Care Medicine; Admitting Provider Internal Medicine; Emergency Provider Emergency Medicine; PCP Internal Medicine; Visit Provider Internal Medicine
DX: J81.1 Chronic pulmonary edema (principal); R06.02 Shortness of breath; N39.0 Urinary tract infection, site not specified; J44.9 Chronic obstructive pulmonary disease, unspecified; E03.9 Hypothyroidism, unspecified; F32.A Depression, unspecified; I50.32 Chronic diastolic (congestive) heart failure; G47.33 Obstructive sleep apnea (adult) (pediatric); E66.01 Morbid (severe) obesity due to excess calories; Z68.44 Body mass index [BMI] 60.0-69.9, adult; Z79.899 Other long term (current) drug therapy; I11.0 Hypertensive heart disease with heart failure; I27.20 Pulmonary hypertension, unspecified; Z86.16 Personal history of COVID-19; Z99.3 Dependence on wheelchair; Z87.891 Personal history of nicotine dependence; Z99.81 Dependence on supplemental oxygen; G56.02 Carpal tunnel syndrome, left upper limb
CPT/HCPCS: 36415; 71045; 80048; 80053; 83735; 83880; 84484; 85025; 93005; 93306; 97166; 99285; G0378; Q9957

== ENCOUNTER 2023-10-22 14:57 | Emergency (ER) | payer MEDICARE, OTHER, SELFPAY ==
[2023-10-22 14:58] VITALS: BP 136/103; PULSE 81; RESP 20; TEMP 36.9; O2SAT 95; BMI 67.8
--- NOTE | 2023-10-22 14:59 | [facility].EDCP ---
Discharge Plan Disposition Patient Disposition: Home, Self-Care Condition: Good Prescriptions Prescriptions: No Action albuterol sulfate 90 mcg/actuation HFA aerosol inhaler 2 puff inhalation Q4HP PRN (Reason: Wheezing) bupropion HCl 200 mg tablet sustained-release 12 hr 400 mg PO DAILY levothyroxine 150 mcg tablet 300 mcg PO DAILY lisinopril 40 mg tablet 40 mg PO DAILY ropinirole 4 mg tablet 4 mg PO DAILY bumetanide 1 mg tablet 3 mg PO BID 30 Days Qty: 180 1RF spironolactone 25 mg tablet 25 mg PO DAILY Qty: 30 2RF (DME) blood-glucose meter [Accu-Chek Guide Glucose Meter] Misc See Rx Instructions .Route Qty: 1 3RF Rx Instructions: As directed (DME) Accu-Chek Guide test strips Strip See Rx Instructions .Route Qty: 50 3RF Rx Instructions: As directed (DME) lancets [Accu-Chek Softclix Lancets] Misc See Rx Instructions .ROUTE .COMPLEX Qty: 200 3RF Dose Instruction: USE TO test blood sugar THREE TIMES DAILY Rx Instructions: USE TO test blood sugar THREE TIMES DAILY trazodone 150 mg tablet 300 mg PO HS Qty: 60 0RF calcium carbonate [Calcium 600] 600 mg calcium (1,500 mg) Tablet 600 mg PO DAILY ibuprofen 800 mg tablet 800 mg PO Q8HP PRN (Reason: Mild Pain (Scale Score 1-4)) Patient Comments: TAKE ONE TABLET BY MOUTH EVERY 8 HOURS NEEDED FOR PAIN --TAKE WITH FOOD-- Trelegy Ellipta 100-62.5-25 mcg blister with device 1 ea INHALATION DAILY Patient Comments: INHALE 1 PUFF BY MOUTH EVERY DAY --RINSE MOUTH AFTER USE-- Referrals Follow up/Referrals: Vahid Garcia DO [Primary Care Provider] - See instructions Activity Restrictions/Add. Instructions Additional Instructions/Restrictions: Utilize your nebulizer machine every 4 hours as needed for wheezing shortness of breath. Return to ER for any change or worsening in your symptoms as needed. Keep your scheduled appointment with cardiology. Make a follow-up appointment with your PCP. Clinical Impressions Clinical Impression: Acute exacerbation of chronic obstructive pulmonary disease Discharge ED Provider: Joey Nieto [facility] <KEVON Gold - Last Filed: 10/22/23 16:09> General Chief Complaint: Shortness of Breath/Dyspnea Stated Complaint: SOA Time Seen by Provider: 10/22/23 14:59 History of Present Illness HPI narrative: Patient presents for worsening shortness of breath. 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 Patient was admitted from October 02 through October 06 for CHF exacerbation. Today was a routine follow-up. Patient denies chest pain fever chills hemoptysis hematochezia melena nausea vomiting diarrhea. Patient has not weighed herself recently. Patient also has a history of COPD and does have home oxygen but tries to utilize it only at night . Patient also reports compliance with her Bumex regimen. Related Data Home Medications Medication Instructions Recorded Confirmed albuterol sulfate 90 mcg/actuation 2 puff inhalation Q4HP PRN Wheezing 09/17/23 10/15/23 aerosol inhaler bupropion HCl 200 mg tablet,12 hr 400 mg PO DAILY 09/17/23 10/15/23 sustained-release levothyroxine 150 mcg tablet 300 mcg PO DAILY 09/17/23 10/15/23 lisinopril 40 mg tablet 40 mg PO DAILY 09/17/23 10/15/23 ropinirole 4 mg tablet 4 mg PO DAILY 09/17/23 10/15/23 calcium carbonate (Calcium 600) 600 mg PO DAILY 10/03/23 10/15/23 fluticasone fur. 100 mcg-umeclid 1 ea inhalation DAILY Breathing 10/04/23 10/15/23 62.5 mcg-vilant 25 mcg Problems inhalat.powder (Trelegy Ellipta) ibuprofen 800 mg tablet 800 mg PO Q8HP PRN Mild Pain 10/04/23 10/15/23 (Scale Score 1-4) Previous Rx's Medication Instructions Recorded blood sugar diagnostic (Accu-Chek #50 ea 08/18/22 Guide test strips) blood-glucose meter (Accu-Chek #1 ea 08/18/22 Guide Glucose Meter) lancets (Accu-Chek Softclix #200 ea 04/13/23 Lancets) trazodone 150 mg tablet 300 mg (2 x 150 mg) PO HS #60 tabs 09/25/23 bumetanide 1 mg tablet 3 mg (3 x 1 mg) PO BID 30 days 10/15/23 #180 tabs spironolactone 25 mg tablet 25 mg PO DAILY #30 tabs 10/15/23 Allergies Allergy/AdvReac Type Severity Reaction Status Date / Time adhesive tape [ADHESIVE TAPE] Allergy Unknown Blister Verified 10/15/23 15:19 hydromorphone [From DILAUDID] Allergy Unknown Hypotension Verified 10/15/23 15:19 nickel [NICKEL] Allergy Unknown Blister Verified 10/15/23 15:19 [facility] <KEVON Gold - Last Filed: 10/22/23 16:09> [facility] Disclaimer: The information contained in this section may have been updated after the patient was seen, as this information can be updated by other users. Medical History Establishing care with new doctor, encounter for Restless leg Glaucoma Arthritis of both knees Urinary incontinence Unspecified asthma, uncomplicated Tear of meniscus of knee Pre-diabetes Diastolic CHF, acute on chronic Pulmonary hypertension Elevated left ventricular end-diastolic pressure (LVEDP) Asthma exacerbation Sleep apnea History of COVID-19 COPD (chronic obstructive pulmonary disease) Asthma Abscess of groin, right Acute exacerbation of chronic obstructive airways disease Left against medical advice Dependent on wheelchair Assistance needed for continence Incisional hernia Complex large recurrent abdominal wall hernia (essentially with loss of domain) and focal skin ulceration Abdominal pain Lower leg pain Knee pain Vaginal bleeding Perimenopausal Cellulitis Hypothyroidism Dizziness Chest pain Sinusitis Tobacco abuse counseling Tobacco abuse HONEY (obstructive sleep apnea) Ventral hernia Dyspnea Depression Pharyngitis due to Streptococcus species Epigastric pain Gastritis Strep throat HTN (hypertension) Hypothyroidism (acquired) TIA (transient ischemic attack) COPD exacerbation Paresthesias Shortness of breath Acute bronchitis Tobacco abuse COPD (chronic obstructive pulmonary disease) Infiltrate of lung present on chest x-ray Atelectasis of right lung Cough Upper respiratory infection Surgical History History of lateral meniscus repair of right knee Pt is unsure if it was lateral or medial H/O tubal ligation Hx of cholecystectomy H/O hernia repair History of colon resection Family History Mother Hypertension Diabetes Father Cancer Social History Smoking Status: Former smoker tobacco type: cigarettes packs per day: 1 years smoked: 38 smoking status stop date: 3 months ago quit status: has quit before second hand exposure: Yes alcohol intake: never substance use type: denies use current occupational status: unemployed Travel in the last 8 weeks: None household members: family and children housing: other lives independently: No marital status: legally number of children: 4 education level: other caffeine: Yes do you feel safe at home: Yes victim of physical abuse: No victim of emotional abuse: No victim of sexual abuse: No <KEVON Gold - Last Filed: 10/22/23 16:09> ROS Obtained: Yes Systems reviewed as appropriate & no additional complaints except as documented Physical Exam <KEVON Gold Last Filed: 10/22/23 16:09> General General appearance: alert and in no apparent distress Head Head exam: atraumatic and normal inspection Eye Eye exam: Present normal appearance and PERRL ENT ENT exam: Present normal exam, normal oropharynx and mucous membranes moist Neck Neck exam: Present normal inspection (Patient has very short neck) and full ROM; Absent lymphadenopathy Chest Chest inspection: Present normal inspection and symmetric chest wall rise; Absent tenderness Respiratory Respiratory exam: Present wheezes; Absent respiratory distress or accessory muscle use Cardiovascular Cardiovascular exam: Present regular rate, normal rhythm, normal heart sounds, +S1 and +S2 Abdominal Exam Abdominal exam: Present soft (Grossly obese with visible ventral hernia and large pannus) and normal bowel sounds (Distant but present); Absent tenderness Extremities Exam Extremities exam: Present normal inspection, full ROM and edema (Bilateral 2+ pitting edema); Absent tenderness Back Exam Back exam: Present normal inspection and full ROM Neurological Exam Neurological exam: Present alert and oriented X3 Psychiatric Psychiatric exam: Present normal affect and normal mood Skin Skin exam: Present warm, dry and normal color HEART Score <KEVON Gold - Last Filed: 10/22/23 16:09> HEART Score HEART Score assessment performed?: Yes History (anamnesis): Slightly suspicious ECG: Normal Age: 45-65 years Risk factors: 3 or more risk factors Troponin: </= normal limit HEART Score: 3 <Joey Nieto MD - Last Filed: 10/22/23 20:50> HEART Score HEART Score: 3 Critical Care <KEVON Gold - Last Filed: 10/22/23 16:09> Critical Care Time Critical Care Time: No Medical Decision Making <KEVON Gold - Last Filed: 10/22/23 16:09> Medical Records Medical records reviewed: Yes I reviewed the patient's medical records. [place] Inquiry Pt receiving controlled substance: No Vital Signs Vital Signs: 10/22/23 14:58 10/22/23 15:30 10/22/23 15:43 Temperature 98.4 F Temperature Source Oral Pulse Rate 84 84 Pulse Rate [Right] 81 Respiratory Rate 20 13 13 Blood Pressure 136/103 H 124/53 L Blood Pressure [Right Arm] 136/103 H Blood Pressure Mean 109 76 Blood Pressure Mean [Right Arm] 114 Blood Pressure Source Blood Pressure Source [Right Arm] Automatic Cuff Blood Pressure Position 02 Sat by Pulse Oximetry 95 95 95 Oxygen Delivery Method Nasal Cannula Oxygen Flow Rate (LPM) 2 10/22/23 16:00 10/22/23 16:45 Temperature 98.4 F Temperature Source Pulse Rate 87 83 Pulse Rate [Right] Respiratory Rate 22 19 Blood Pressure 135/61 118/78 Blood Pressure [Right Arm] Blood Pressure Mean 71 Blood Pressure Mean [Right Arm] Blood Pressure Source Automatic Cuff Blood Pressure Source [Right Arm] Blood Pressure Position Sitting 02 Sat by Pulse Oximetry 95 Oxygen Delivery Method Room Air Oxygen Flow Rate (LPM) Lab Data Lab results reviewed: Yes I reviewed the patient's lab results. Labs: Lab Results 10/22/23 15:00: WBC 10.9 H, RBC 4.28, Hgb 12.1 L, Hct 39.8, MCV 93.0, MCH 28.3, MCHC 30.5 L, RDW 15.8, Plt Count 287, MPV 8.2, Neut % (Auto) 76.4, Lymph % (Auto) 18.0, [place] % (Auto) 2.8, Eos % (Auto) 2.1, Baso % (Auto) 0.6, Neut # (Auto) 8.3 H, Lymph # (Auto) 2.0, [place] # (Auto) 0.3, Eos # (Auto) 0.2, Baso # (Auto) 0.1, Sodium 135 L, Potassium 4.8, Chloride 98, Carbon Dioxide 37 H, Anion Gap 4.8 L, BUN 17, Creatinine 0.90, Estimated GFR 65, Est GFR ( Amer) 79, Glucose 160 H, Calcium 9.6, Magnesium 1.7, Total Bilirubin 0.3, AST 29, ALT 19, Alkaline Phosphatase 103, Troponin I < 0.01, NT-Pro-B Natriuret Pep 22.1, Total Protein 7.1, Albumin 3.4 L, Globulin 3.7 H, Albumin/Globulin Ratio 0.9 L 10/22/23 15:00 10/22/23 15:00 Response Orders (Tests/Meds): ED MEDICATIONS Discontinued Medications Generic Name Dose Route Start Last Admin Trade Name Freq PRN Reason Stop Dose Admin Albuterol/Ipratropium 3 ml 10/22/23 15:10 10/22/23 16:11 Ipratropium/Albuterol 3 Ml Neb IH 10/22/23 15:11 Not Given ONCE ONE Dexamethasone Sodium Phosphate 10 mg 10/22/23 15:10 10/22/23 16:06 Dexamethasone 4mg/Ml 1ml Vial IV 10/22/23 15:11 10 mg ONCE ONE Administration Furosemide 80 mg 10/22/23 15:03 10/22/23 16:14 Furosemide 40mg/4ml Vial IV 10/22/23 15:04 Not Given ONCE ONE ORDERS Category Date Time Status Chest XR -- portable [XR chest portable] Stat Exams 10/22/23 15:07 Completed BNP [NT Pro Brain Natriuretic Pep.] Stat Lab 10/22/23 15:00 Completed CBC w/Auto Diff [Complete Blood Count Auto Diff] Stat Lab 10/22/23 15:00 Completed CMP [Comprehensive Metabolic Panel] Stat Lab 10/22/23 15:00 Completed Magnesium Stat Lab 10/22/23 15:00 Completed Trop I [Troponin I] Stat Lab 10/22/23 15:00 Completed MDM Narrative Medical Decision Narrative: In summary patient is a 53-year-old female who presents to the emergency department for evaluation of shortness of breath. Patient has a past medical history of morbid obesity, heart failure, pulmonary artery hypertension, COPD with as needed supplemental home O2. Patient is hemodynamically stable satting at 95% on 3 L by nasal cannula upon arrival, afebrile. Physical exam shows a markedly obese 53-year-old female who has diminished breath sounds at the bilateral bases with end expiratory wheezes some all 4 jin and 2+ bilateral lower extremity pitting edema. Differential diagnosis includes ACS versus PE versus COPD exacerbation versus CHF exacerbation etc. Initial workup will be conducted with hematologic labs plain film chest x-ray respiratory swab VBG twelve-lead EKG. Initial interventions include Toradol Tylenol DuoNeb Decadron. Initial workup reviewed by me shows that her hematologic labs are nonactionable including a undetectable troponin and normal white count normal NT proBNP. My informal interpretation of her plain film chest x-ray shows no acute processes with radiologist read pending. Upon repeat evaluation patient reports complete resolution of her dyspnea. Given this patient is appropriate for discharge home with recommendations to utilize nebulizer that she has at home when she feels wheezy which she has not done today. May follow-up with PCP as needed for worsening or change in her symptoms. May return to ER as needed. Keep cardiology appointment as scheduled. <Joey Nieto MD - Last Filed: 10/22/23 20:50> Vital Signs Vital Signs: 10/22/23 14:58 10/22/23 15:30 10/22/23 15:43 Temperature 98.4 F Temperature Source Oral Pulse Rate 84 84 Pulse Rate [Right] 81 Respiratory Rate 20 13 13 Blood Pressure 136/103 H 124/53 L Blood Pressure [Right Arm] 136/103 H Blood Pressure Mean 109 76 Blood Pressure Mean [Right Arm] 114 Blood Pressure Source Blood Pressure Source [Right Arm] Automatic Cuff Blood Pressure Position 02 Sat by Pulse Oximetry 95 95 95 Oxygen Delivery Method Nasal Cannula Oxygen Flow Rate (LPM) 2 10/22/23 16:00 10/22/23 16:45 Temperature 98.4 F Temperature Source Pulse Rate 87 83 Pulse Rate [Right] Respiratory Rate 22 19 Blood Pressure 135/61 118/78 Blood Pressure [Right Arm] Blood Pressure Mean 71 Blood Pressure Mean [Right Arm] Blood Pressure Source Automatic Cuff Blood Pressure Source [Right Arm] Blood Pressure Position Sitting 02 Sat by Pulse Oximetry 95 Oxygen Delivery Method Room Air Oxygen Flow Rate (LPM) Lab Data Labs: Lab Results 10/22/23 15:00: WBC 10.9 H, RBC 4.28, Hgb 12.1 L, Hct 39.8, MCV 93.0, MCH 28.3, MCHC 30.5 L, RDW 15.8, Plt Count 287, MPV 8.2, Neut % (Auto) 76.4, Lymph % (Auto) 18.0, [place] % (Auto) 2.8, Eos % (Auto) 2.1, Baso % (Auto) 0.6, Neut # (Auto) 8.3 H, Lymph # (Auto) 2.0, [place] # (Auto) 0.3, Eos # (Auto) 0.2, Baso # (Auto) 0.1, Sodium 135 L, Potassium 4.8, Chloride 98, Carbon Dioxide 37 H, Anion Gap 4.8 L, BUN 17, Creatinine 0.90, Estimated GFR 65, Est GFR ( Amer) 79, Glucose 160 H, Calcium 9.6, Magnesium 1.7, Total Bilirubin 0.3, AST 29, ALT 19, Alkaline Phosphatase 103, Troponin I < 0.01, NT-Pro-B Natriuret Pep 22.1, Total Protein 7.1, Albumin 3.4 L, Globulin 3.7 H, Albumin/Globulin Ratio 0.9 L Response Orders (Tests/Meds): ED MEDICATIONS Discontinued Medications Generic Name Dose Route Start Last Admin Trade Name Freq PRN Reason Stop Dose Admin Albuterol/Ipratropium 3 ml 10/22/23 15:10 10/22/23 16:11 Ipratropium/Albuterol 3 Ml Neb IH 10/22/23 15:11 Not Given ONCE ONE Dexamethasone Sodium Phosphate 10 mg 10/22/23 15:10 10/22/23 16:06 Dexamethasone 4mg/Ml 1ml Vial IV 10/22/23 15:11 10 mg ONCE ONE Administration Furosemide 80 mg 10/22/23 15:03 10/22/23 16:14 Furosemide 40mg/4ml Vial IV 10/22/23 15:04 Not Given ONCE ONE ORDERS Category Date Time Status Chest XR -- portable [XR chest portable] Stat Exams 10/22/23 15:07 Completed BNP [NT Pro Brain Natriuretic Pep.] Stat Lab 10/22/23 15:00 Completed CBC w/Auto Diff [Complete Blood Count Auto Diff] Stat Lab 10/22/23 15:00 Completed CMP [Comprehensive Metabolic Panel] Stat Lab 10/22/23 15:00 Completed Magnesium Stat Lab 10/22/23 15:00 Completed Trop I [Troponin I] Stat Lab 10/22/23 15:00 Completed MDM Narrative Medical Decision Narrative: In summary patient is a 53-year-old female who presents to the emergency department for evaluation of shortness of breath. Patient has a past medical history of morbid obesity, heart failure, pulmonary artery hypertension, COPD with as needed supplemental home O2. Patient is hemodynamically stable satting at 95% on 3 L by nasal cannula upon arrival, afebrile. Physical exam shows a markedly obese 53-year-old female who has diminished breath sounds at the bilateral bases with end expiratory wheezes some all 4 jin and 2+ bilateral lower extremity pitting edema. Differential diagnosis includes ACS versus PE versus COPD exacerbation versus CHF exacerbation etc. Initial workup will be conducted with hematologic labs plain film chest x-ray respiratory swab VBG twelve-lead EKG. Initial interventions include Toradol Tylenol DuoNeb Decadron. Initial workup reviewed by me shows that her hematologic labs are nonactionable including a undetectable troponin and normal white count normal NT proBNP. My informal interpretation of her plain film chest x-ray shows no acute processes with radiologist read pending. Upon repeat evaluation patient reports complete resolution of her dyspnea. EKG was sinus rhythm about 88 beats minute, no ST or T wave changes concerning for acute ischemia. Patient does have right bundle branch block morphology with wide QRS at 153 ms. WA, QT intervals within normal limits. Leftward axis. Given this patient is appropriate for discharge home with recommendations to utilize nebulizer that she has at home when she feels wheezy which she has not done today. May follow-up with PCP as needed for worsening or change in her symptoms. May return to ER as needed. Keep cardiology appointment as scheduled. I was consulted by the DYLON, and we discussed the complexity of the problems being addressed. I approved the treatment and management plan for this patient?s care in the Emergency Department, thus performing a substantive portion of the medical decision making. Joey Nieto MD
--- NOTE | 2023-10-22 15:07 | XR_ITS ---
FINAL REPORT CLINICAL HISTORY: Dyspnea FINDINGS: A single portable view of the chest was obtained. The heart size and pulmonary vascularity are within normal limits. The mediastinum is within normal limits. No acute pulmonary abnormality is identified. The bony thorax is intact. IMPRESSION: No active cardiopulmonary disease. Reviewed, Interpreted and Dictated by Daniel Rivesr III, MD Transcribed by Nika Scales Authenticated and [facility]
--- NOTE | 2023-10-22 15:09 | ECG_ITS ---
APPROVED REPORT Exam: Resting ECG HR:88 bpm ECG Measurements Heart Rate 88 AXES HI 147 P 79 QRSd 153 QRS -57 QT 392 T 46 QTc 438 Conclusion SINUS RHYTHM RIGHT BUNDLE BRANCH BLOCK [120+ ms QRS DURATION, UPRIGHT V1, 40+ ms S IN I/aVL/V4/V5/V6] LEFT ANTERIOR FASCICULAR BLOCK [QRS AXIS <= -45, QR IN I, RS IN II] Electronically signed by : THERESA CANO, 10/22/2023 20:51:15
--- NOTE | 2023-10-22 15:18 | EXP.CARD.PN ---
Subjective Subjective Date: 10/22/23 Time: 08:00 Interval history: This is a 53-year-old white female with past medical history of morbid obesity, heart failure with preserved ejection fraction, COPD on continuous 2 L oxygen via nasal cannula and untreated sleep apnea presented to emergency department today via EMS with complaints of worsening shortness of breath and mild chest heaviness. Patient reports she was recently hospitalized with CHF exacerbation and diuresed. Shee was supposed to have a routine follow-up in cardiology clinic this afternoon but could not make it due to worsening shortness of breath. Patient reports symptoms have progressively worsened over the last week requiring her to wear more oxygen. Patient reports she has been taking diuretics as directed. EKG upon arrival shows normal sinus rhythm rate of 86 with left axis deviation and right bundle branch block. Labs are pending at time of evaluation. Exam Constitutional Constitutional: no acute distress *Routine Respiratory Exam Respiratory: Present CTA bilaterally and symmetric chest movement *Routine Cardiovascular Exam Cardiovascular: Present RRR, Normal S1 and Normal S2 *Routine Abdominal Exam Abdominal: Present soft and normoactive bowel sounds; Absent tenderness *Routine Extremities Exam Extremities: Present full ROM and normal capillary refill; Absent edema *Routine Skin Exam Skin: Present intact, dry and warm Detailed Neck Exam: Thyroids Thyroid: Absent bruit Progress Note: A&P Assessment and Plan Assessment and Plan for All Diagnoses:: Chronic HFpEF- NYHA III Morbid obesity, BMI 66 Obstructive sleep apnea, untreated -Echo 09/2023-low normal ejection fraction of 50%, asynchronous septum, the right ventricle is not very well-visualized but grossly appears mildly dilated with mild reduction in RV function. No significant valvular stenosis or regurgitation. -ER has given Lasix 80mg IV x 1 -States she has seen bariatrics with in [place] previously and was not a candidate for intervention due to her depression -Consider GLP-1 outpatient, she is seeing PCP for this -labs pending 10/22/2023: ER workup is pending. Historically, patient has needed increased diuretics for volume overload. If patient responds to initial dose of Lasix, labs are stable and troponins are negative then can discharge patient home with increased dose of diuretics and have patient follow-up in cardiology clinic on Thursday. If patient continues to feel poorly, does not diurese or has abnormal testing please admit for further evaluation and diuresis.
[2023-10-22 15:26] LABS: Basophils # 0.1 K/mm3 (0-0.2); Basophils % 0.6 % (0.1-2.0); Eosinophils # 0.2 K/mm3 (0.0-0.4); Eosinophils % 2.1 % (0.1-12.0); Hematocrit 39.8 % (37.0-47.0); Hemoglobin 12.1 g/dL (12.2-16.2); Mean Corpuscular HGB Conc 30.5 g/dL (31.8-35.4); Mean Corpuscular Hemoglobin 28.3 pg (27.0-31.2); Mean Platelet Volume 8.2 fl (7.4-10.4); Monocytes # 0.3 K/mm3 (0.1-1.0); Monocytes % 2.8 % (1.7-9.3); Neutrophils # 8.3 K/mm3 (1.8-7.8); Neutrophils % 76.4 % (37.0-80.0); Platelet Count 287 K/mm3 (142-424); Red Blood Count 4.28 M/mm3 (4.20-5.40); Red Cell Distribution Width 15.8 % (11.5-17.5); White Blood Count 10.9 K/mm3 (4.8-10.8)
[2023-10-22 15:29] LABS: Chloride 98 mmol/L (98-107); Potassium 4.8 mmoL/L (3.5-5.1); Sodium 135 mmol/L (136-145)
[2023-10-22 15:30] VITALS: BP 136/103; PULSE 84; RESP 13; O2SAT 95
[2023-10-22 15:32] LABS: Alanine Aminotransferase 19 U/L (12-78); Albumin Level 3.4 g/dl (3.5-5.0); Albumin/Globulin Ratio 0.9 (1.1-1.8); Alkaline Phosphatase 103 U/L (38-126); Anion Gap 4.8 mEq/L (5-15); Aspartate Amino Transferase 29 U/L (14-36); Bilirubin,Total 0.3 mg/dl (0.2-1.3); Blood Urea Nitrogen 17 mg/dl (7-17); Calcium 9.6 mg/dl (8.4-10.2); Carbon Dioxide 37 mmol/L (22.0-30.0); Estimated Glomerular Filt Rate 65 ml/min (>60); GFR (African American) 79 ML/MIN (>60); Globulin 3.7 g/dL (1.3-3.2); Glucose 160 mg/dl (74-100); Magnesium 1.7 mg/dl (1.6-2.3); Total Protein,Serum 7.1 g/dl (6.3-8.2)
--- NOTE | 2023-10-22 15:32 | PC.NURSE ---
rounded on pt, pt requested that family come back to see her. i have notified the family and they are back there with her at this time.
[2023-10-22 15:41] LABS: NT Pro Brain Natriuretic Pep. 22.1 pg/mL (0-125)
[2023-10-22 15:43] VITALS: BP 124/53; PULSE 84; RESP 13; O2SAT 95
[2023-10-22 15:47] LABS: Troponin I < 0.01 ng/ml (0.00-0.034)
[2023-10-22 16:00] VITALS: BP 135/61; PULSE 87; RESP 22; O2SAT 95
[2023-10-22] MEDS: DEXAMETHASONE 4MG/ML 1ML VIAL 10 MG IV (16:06)
[2023-10-22 16:45] VITALS: BP 118/78; PULSE 83; RESP 19; TEMP 36.9; O2SAT 96
== END 2023-10-22 16:46 | disposition home or self-care (01) ==
PROVIDERS: Physician Assistant; Emergency Provider Emergency Medicine; PCP Internal Medicine
DX: J44.1 Chronic obstructive pulmonary disease with (acute) exacerbation (principal); R06.02 Shortness of breath; I45.19 Other right bundle-branch block; I44.4 Left anterior fascicular block; I11.0 Hypertensive heart disease with heart failure; I50.33 Acute on chronic diastolic (congestive) heart failure; Z87.891 Personal history of nicotine dependence
CPT/HCPCS: 71045; 80053; 83735; 83880; 84484; 85025; 93005; 96374; 96375; 99284

== ENCOUNTER 2023-12-07 17:03 | Outpatient (CLI) | payer MEDICARE, OTHER, SELFPAY ==
[2023-12-07 16:57] LABS: Adenovirus,PCR Not Detected (NotDetected); Bordetella Pertussis Not Detected (NotDetected); Chlamydophila Pneumoniae, PCR Not Detected (NotDetected); Coronavirus 19, PCR Not Detected (NotDetected); Coronavirus 229E Not Detected (NotDetected); Coronavirus NL63 Not Detected (NotDetected); Coronavirus OC43 Not Detected (NotDetected); Coronovirus HKU1,PCR Not Detected (NotDetected); Human Metapneumovirus Not Detected (NotDetected); Influenza A, PCR Not Detected (NotDetected); Influenza AH1, 2009 Not Detected (NotDetected); Influenza AH1, PCR Not Detected (NotDetected); Influenza AH3,PCR Not Detected (NotDetected); Influenza B, PCR Not Detected (NotDetected); Parainfluenza 1, PCR Not Detected (NotDetected); Parainfluenza 2, PCR Not Detected (NotDetected); Parainfluenza 3, PCR Not Detected (NotDetected); Parainfluenza 4, PCR Not Detected (NotDetected); Respiratory Syncytial Virus Not Detected (NotDetected); Rhinovirus/Enterovirus Not Detected (NotDetected)
[2023-12-07 17:13] LABS: Basophils % 0.3 % (0.1-2.0); Eosinophils # 0.3 K/mm3 (0.0-0.4); Eosinophils % 2.8 % (0.1-12.0); Hematocrit 39.3 % (37.0-47.0); Hemoglobin 12.3 g/dL (12.2-16.2); Lymphocytes # 1.3 K/mm3 (0.7-4.5); Lymphocytes % 13.7 % (10-50); Mean Corpuscular HGB Conc 31.3 g/dL (31.8-35.4); Mean Corpuscular Hemoglobin 28.9 pg (27.0-31.2); Mean Corpuscular Volume 92.3 fl (81-99); Mean Platelet Volume 8.6 fl (7.4-10.4); Monocytes # 0.4 K/mm3 (0.1-1.0); Monocytes % 4.1 % (1.7-9.3); Neutrophils # 7.5 K/mm3 (1.8-7.8); Platelet Count 345 K/mm3 (142-424); Red Blood Count 4.26 M/mm3 (4.20-5.40); Red Cell Distribution Width 16.1 % (11.5-17.5); White Blood Count 9.5 K/mm3 (4.8-10.8)
[2023-12-07 18:14] LABS: Alanine Aminotransferase 34 U/L (12-78); Albumin Level 3.8 g/dl (3.5-5.0); Alkaline Phosphatase 125 U/L (38-126); Aspartate Amino Transferase 37 U/L (14-36); Bilirubin,Total 0.5 mg/dl (0.2-1.3); Blood Urea Nitrogen 14 mg/dl (7-17); Calcium 9.9 mg/dl (8.4-10.2); Carbon Dioxide 37 mmol/L (22.0-30.0); Chloride 94 mmol/L (98-107); Estimated Glomerular Filt Rate 65 ml/min (>60); GFR (African American) 79 ML/MIN (>60); Globulin 3.7 g/dL (1.3-3.2); Glucose 85 mg/dl (74-100); Sodium 137 mmol/L (136-145); Total Protein,Serum 7.5 g/dl (6.3-8.2)
[2023-12-07 18:26] LABS: 25-OH Vitamin D, Total < 12.8 ng/mL (30-100)
[2023-12-07 18:58] LABS: Vitamin B12 235 pg/mL (239-931)
[2023-12-07 21:26] LABS: Free T4 (Free Thyroxine) 0.29 ng/dl (0.78-2.19)
[2023-12-07 23:36] LABS: Mycoplasma Pneumoniae, PCR Detected (NotDetected)
== END 2023-12-07 23:59 | disposition home or self-care (01) ==
LOC: LAB.DROPOF 17:04
PROVIDERS: PCP Nurse Practitioner Family; Visit Provider Nurse Practitioner Family
DX: E55.9 Vitamin D deficiency, unspecified (principal); R53.83 Other fatigue; E03.9 Hypothyroidism, unspecified; G47.33 Obstructive sleep apnea (adult) (pediatric); R41.3 Other amnesia; J98.8 Other specified respiratory disorders; B97.89 Other viral agents as the cause of diseases classified elsewhere; E53.8 Deficiency of other specified B group vitamins; R06.09 Other forms of dyspnea; R06.2 Wheezing; H92.03 Otalgia, bilateral
CPT/HCPCS: 80053; 82306; 82607; 84439; 84443; 85025; 87581; 87632; 87635; 87798

== ENCOUNTER 2024-04-29 14:00 | Outpatient (CLI) | payer MEDICARE, OTHER, SELFPAY ==
[2024-04-29 16:59] LABS: Basophils # 0.1 K/mm3 (0-0.2); Basophils % 0.7 % (0.1-2.0); Eosinophils # 0.1 K/mm3 (0.0-0.4); Eosinophils % 1.6 % (0.1-12.0); Hematocrit 37.1 % (37.0-47.0); Lymphocytes # 1.4 K/mm3 (0.7-4.5); Lymphocytes % 15.2 % (10-50); Mean Corpuscular HGB Conc 32.3 g/dL (31.8-35.4); Mean Corpuscular Hemoglobin 28.6 pg (27.0-31.2); Mean Corpuscular Volume 88.7 fl (81-99); Mean Platelet Volume 7.9 fl (7.4-10.4); Monocytes # 0.4 K/mm3 (0.1-1.0); Monocytes % 4.4 % (1.7-9.3); Neutrophils # 7.1 K/mm3 (1.8-7.8); Neutrophils % 78.1 % (37.0-80.0); Platelet Count 298 K/mm3 (142-424); Red Blood Count 4.19 M/mm3 (4.20-5.40); Red Cell Distribution Width 16.2 % (11.5-17.5); White Blood Count 9.1 K/mm3 (4.8-10.8)
[2024-04-29 17:22] LABS: Alanine Aminotransferase 16 U/L (12-78); Albumin Level 3.6 g/dl (3.5-5.0); Albumin/Globulin Ratio 1.1 (1.1-1.8); Alkaline Phosphatase 87 U/L (38-126); Anion Gap 3.7 mEq/L (5-15); Aspartate Amino Transferase 22 U/L (14-36); Bilirubin,Total 0.4 mg/dl (0.2-1.3); Blood Urea Nitrogen 15 mg/dl (7-17); Calcium 9.7 mg/dl (8.4-10.2); Carbon Dioxide 36 mmol/L (22.0-30.0); Chloride 97 mmol/L (98-107); Estimated Glomerular Filt Rate 74 ml/min (>60); GFR (African American) 90 ML/MIN (>60); Globulin 3.4 g/dL (1.3-3.2); Glucose 160 mg/dl (74-100); Potassium 4.7 mmoL/L (3.5-5.1); Sodium 132 mmol/L (136-145)
[2024-04-29 17:30] LABS: NT Pro Brain Natriuretic Pep. 39.3 pg/mL (0-125)
[2024-04-29 17:37] LABS: Hemoglobin A1C 6.4 % (4.0-6.0)
== END 2024-04-29 23:59 | disposition home or self-care (01) ==
LOC: LAB.DROPOF 04-30 10:19
PROVIDERS: PCP Nurse Practitioner Family; Visit Provider Nurse Practitioner Family
DX: R06.02 Shortness of breath (principal); R60.9 Edema, unspecified; I10 Essential (primary) hypertension; E03.9 Hypothyroidism, unspecified; E11.9 Type 2 diabetes mellitus without complications; R32 Unspecified urinary incontinence; R39.89 Other symptoms and signs involving the genitourinary system; R53.83 Other fatigue; I50.30 Unspecified diastolic (congestive) heart failure
CPT/HCPCS: 80053; 83036; 83880; 84443; 85025; 87086; 87088; 87186

== ENCOUNTER 2024-08-16 15:31 | Outpatient (CLI) | payer MEDICARE, OTHER, SELFPAY ==
[2024-08-16 15:53] LABS: Basophils # 0.1 K/mm3 (0-0.2); Basophils % 0.5 % (0.1-2.0); Eosinophils # 0.2 K/mm3 (0.0-0.4); Eosinophils % 1.4 % (0.1-12.0); Hemoglobin 12.3 g/dL (12.2-16.2); Lymphocytes # 1.6 K/mm3 (0.7-4.5); Lymphocytes % 15.1 % (10-50); Mean Corpuscular Hemoglobin 27.3 pg (27.0-31.2); Mean Corpuscular Volume 91.1 fl (81-99); Mean Platelet Volume 9.8 fl (7.4-10.4); Monocytes # 0.5 K/mm3 (0.1-1.0); Monocytes % 4.5 % (1.7-9.3); Neutrophils # 8.4 K/mm3 (1.8-7.8); Neutrophils % 77.9 % (37.0-80.0); Platelet Count 315 K/mm3 (142-424); Red Cell Distribution Width 15.8 % (11.5-17.5); White Blood Count 10.8 K/mm3 (4.8-10.8)
[2024-08-16 16:04] LABS: Hemoglobin A1C 6.4 % (4.0-6.0)
[2024-08-16 16:08] LABS: Albumin Level 3.8 g/dl (3.5-5.0); Chloride 92 mmol/L (98-107); Potassium 4.4 mmoL/L (3.5-5.1); Sodium 135 mmol/L (136-145)
[2024-08-16 16:11] LABS: Alanine Aminotransferase 17 U/L (12-78); Albumin/Globulin Ratio 1.1 (1.1-1.8); Alkaline Phosphatase 109 U/L (38-126); Anion Gap 10.4 mEq/L (5-15); Aspartate Amino Transferase 23 U/L (14-36); Bilirubin,Total 0.1 mg/dl (0.2-1.3); Blood Urea Nitrogen 12 mg/dl (7-17); Calcium 9.9 mg/dl (8.4-10.2); Carbon Dioxide 37 mmol/L (22.0-30.0); Estimated Glomerular Filt Rate 87 ml/min (>60); GFR (African American) 105 ML/MIN (>60); Globulin 3.4 g/dL (1.3-3.2); Glucose 111 mg/dl (74-100); Total Protein,Serum 7.2 g/dl (6.3-8.2)
[2024-08-16 16:21] LABS: NT Pro Brain Natriuretic Pep. < 20.0 pg/mL (0-125)
[2024-08-16 16:27] LABS: Free T4 (Free Thyroxine) 0.21 ng/dl (0.78-2.19)
== END 2024-08-16 23:59 | disposition home or self-care (01) ==
PROVIDERS: Visit Provider Internal Medicine
DX: Z00.00 Encounter for general adult medical examination without abnormal findings (principal); I50.30 Unspecified diastolic (congestive) heart failure; J81.1 Chronic pulmonary edema; R06.02 Shortness of breath; Z13.29 Encounter for screening for other suspected endocrine disorder; Z13.1 Encounter for screening for diabetes mellitus
CPT/HCPCS: 36415; 80053; 83036; 83880; 84439; 84443; 85025

== ENCOUNTER 2024-08-23 15:10 | Emergency (ER) | payer MEDICARE, OTHER, SELFPAY ==
[2024-08-23 15:10] VITALS: BP 130/71; PULSE 94; RESP 18; TEMP 36.7; O2SAT 95; BMI 74.5
--- NOTE | 2024-08-23 15:17 | CT_ITS ---
PROCEDURE INFORMATION: Exam: CTA Chest With Contrast Exam date and time: 08/23/2024 4:06 PM Age: 54 years old Clinical indication: Dyspnea TECHNIQUE: Imaging protocol: Computed tomographic angiography of the chest with contrast. Exam focused on the arteries. 3D rendering (Not supervised by radiologist): MIP and/or 3D reconstructed images were created by the technologist. Radiation optimization: All CT scans at this facility use at least one of these dose optimization techniques: automated exposure control; mA and/or kV adjustment per patient size (includes targeted exams where dose is matched to clinical indication); or iterative reconstruction. Contrast material: ISOVUE 370; Contrast volume: 80 ml; Contrast route: INTRAVENOUS (IV); COMPARISON: 1. CT ANGIO CHEST PE PROTOCOL 03/31/2022 11:[address] ANGIO CHEST PE PROTOCOL 09/30/2021 2:[address] CHEST WO CON 03/29/2020 3:33 PM FINDINGS: Pulmonary arteries: There is fair opacification of the pulmonary arterial tree. No central pulmonary arterial filling defect is seen. Aorta: The aorta is normal caliber without focal abnormality. No dissection or aneurysm. Other arteries: Subsegmental vessels are not well evaluated due to technical factors. Lungs: Parenchymal consolidations at the bases could be on the basis of atelectasis but underlying infection is not completely excluded. Pleural spaces: Unremarkable. No pneumothorax. No pleural effusion. Heart: Unremarkable. No cardiomegaly. No pericardial effusion. Coronary arteries: There is mild coronary atherosclerotic disease/calcification although evaluation is limited secondary to the non gated nature of the study. Lymph nodes: There are mildly prominent mediastinal lymph nodes which are nonenlarged. Intraperitoneal space: Please see the dedicated interpretation of abdomen and pelvis for findings in that region. Bones/joints: Unremarkable. No acute fracture. Soft tissues: Unremarkable. IMPRESSION: 1. No central pulmonary arterial filling defect is seen. Subsegmental vessels are not well evaluated due to technical factors. 2. The aorta is normal caliber without focal abnormality. No dissection or aneurysm. 3. Parenchymal consolidations at the bases could be on the basis of atelectasis but underlying infection is not completely excluded. 4. Please see the dedicated interpretation of abdomen and pelvis for findings in that region.
--- NOTE | 2024-08-23 15:17 | CT_ITS ---
PROCEDURE INFORMATION: Exam: CT Abdomen And Pelvis With Contrast Exam date and time: 08/23/2024 4:06 PM Age: 54 years old Clinical indication: Abdominal pain; Additional info: Diffuse abd pain TECHNIQUE: Imaging protocol: Computed tomography of the abdomen and pelvis with contrast. Radiation optimization: All CT scans at this facility use at least one of these dose optimization techniques: automated exposure control; mA and/or kV adjustment per patient size (includes targeted exams where dose is matched to clinical indication); or iterative reconstruction. Contrast material: ISOVUE; Contrast volume: 80 ml; Contrast route: IV; COMPARISON: 1. MR ABDOMEN WO/W CON 04/23/2021 8:[address] ABDOMEN PELVIS W CON 02/22/2021 10:[address] ABDOMEN PELVIS W CON 01/10/2021 4:52 PM FINDINGS: Limitations: The patient's body extends partially outside the CT gantry and a portion is not imaged. Liver: The liver demonstrates a cirrhotic morphology with nodular contour and volume redistribution. Gallbladder and biliary ducts: The patient is status post cholecystectomy. Pancreas: Normal. Spleen: Normal. Adrenal glands: The adrenal glands appear normal. Kidneys and ureters: There are no soft tissue renal masses or hydronephrosis. Stomach and bowel: The bowel loops are incompletely imaged but no obstruction is seen. Appendix: No evidence of appendicitis. Intraperitoneal space: Unremarkable. Vasculature: The abdominal aorta and its major branches appear normal without evidence of aneurysm or stenosis. There are pelvic phleboliths. Lymph nodes: No lymphadenopathy. Urinary bladder: Unremarkable as visualized. Reproductive: No acute process. Bones/joints: The visualized osseous structures of the abdomen and pelvis appear normal for patient age. Soft tissues: There is a large left-sided ventral abdominal wall hernia containing multiple loops of bowel. Other findings: Please see the dedicated interpretation of the thorax for findings in that region. IMPRESSION: 1. There is a large left-sided ventral abdominal wall hernia containing multiple loops of bowel. The bowel loops are incompletely imaged but no obstruction is seen. 2. Please see the dedicated interpretation of the thorax for findings in that region.
--- NOTE | 2024-08-23 15:20 | ED_ITS ---
Discharge Plan Disposition Patient Disposition: Home, Self-Care Prescriptions Prescriptions: New nitrofurantoin monohyd/m-cryst 100 mg capsule 100 mg PO BID 5 Days Qty: 10 0RF Rx Instructions: must administer with a meal/food No Action diclofenac sodium 1 % gel 2 g topical QID Qty: 100 2RF Rx Instructions: apply to single elbow, wrist or hand; for hand includes palm/fingers/back of hand levothyroxine 150 mcg tablet 150 mcg PO BID Patient Comments: TAKE TWO TABLETS BY MOUTH EVERY DAY IN THE MORNING lisinopril 40 mg tablet 40 mg PO DAILY 90 Days Qty: 90 1RF (DME) lancets [Accu-Chek Softclix Lancets] Misc See Rx Instructions .ROUTE .COMPLEX Qty: 200 3RF Dose Instruction: USE TO test blood sugar THREE TIMES DAILY Rx Instructions: USE TO test blood sugar THREE TIMES DAILY (DME) blood-glucose meter [Accu-Chek Guide Glucose Meter] Misc See Rx Instructions .Route Qty: 1 3RF Rx Instructions: As directed bupropion HCl 200 mg tablet sustained-release 12 hr 400 mg PO DAILY Qty: 180 1RF ipratropium-albuterol 0.5 mg-3 mg(2.5 mg base)/3 mL solution for nebulization 3 ml inhalation QID PRN (Reason: shortness of breath or wheezing) Qty: 180 10RF Trelegy Ellipta 100-62.5-25 mcg blister with device 1 inh inhalation DAILY Qty: 180 3RF cholecalciferol (vitamin D3) 1,250 mcg (50,000 unit) capsule 1,250 mcg PO WEEKLY Qty: 12 3RF ropinirole 4 mg tablet See Rx Instructions .ROUTE .COMPLEX Qty: 30 5RF Dose Instruction: TAKE ONE TABLET BY MOUTH EVERY DAY Rx Instructions: TAKE ONE TABLET BY MOUTH EVERY DAY cyanocobalamin (vitamin B-12) 1,000 mcg tablet See Rx Instructions .ROUTE .COMPLEX Qty: 30 5RF Dose Instruction: TAKE ONE TABLET BY MOUTH EVERY DAY Rx Instructions: TAKE ONE TABLET BY MOUTH EVERY DAY bumetanide 1 mg tablet See Rx Instructions .ROUTE .COMPLEX Qty: 180 3RF Dose Instruction: TAKE THREE TABLETS BY MOUTH TWICE DAILY Rx Instructions: TAKE THREE TABLETS BY MOUTH TWICE DAILY (DME) Accu-Chek Guide test strips Strip See Rx Instructions .ROUTE .COMPLEX Qty: 50 3RF Dose Instruction: USE TO test blood sugar THREE TIMES DAILY Rx Instructions: USE TO test blood sugar THREE TIMES DAILY albuterol sulfate 90 mcg/actuation HFA aerosol inhaler See Rx Instructions .ROUTE .COMPLEX Qty: 8.5 10RF Dose Instruction: INHALE 2 PUFFS BY MOUTH EVERY 4 TO 6 HOURS NEEDED FOR SHORTNESS OF BREATH OR wheezing Rx Instructions: INHALE 2 PUFFS BY MOUTH EVERY 4 TO 6 HOURS NEEDED FOR SHORTNESS OF BREATH OR wheezing spironolactone 25 mg tablet 25 mg PO DAILY Qty: 90 3RF ibuprofen 800 mg tablet See Rx Instructions .ROUTE .COMPLEX Qty: 60 1RF Dose Instruction: TAKE ONE TABLET BY MOUTH EVERY 8 HOURS NEEDED FOR PAIN --TAKE WITH FOOD-- Rx Instructions: TAKE ONE TABLET BY MOUTH EVERY 8 HOURS NEEDED FOR PAIN --TAKE WITH FOOD-- ondansetron 4 mg tablet,disintegrating See Rx Instructions .ROUTE .COMPLEX Qty: 30 1RF Dose Instruction: DISSOLVE ONE TABLET in MOUTH EVERY 8 HOURS NEEDED FOR NAUSEA AND VOMITING Rx Instructions: DISSOLVE ONE TABLET in MOUTH EVERY 8 HOURS NEEDED FOR NAUSEA AND VOMITING trazodone 150 mg tablet See Rx Instructions .ROUTE .COMPLEX Qty: 60 5RF Dose Instruction: TAKE TWO TABLETS BY MOUTH EVERY DAY AT BEDTIME Rx Instructions: TAKE TWO TABLETS BY MOUTH EVERY DAY AT BEDTIME metformin 500 mg tablet See Rx Instructions .ROUTE .COMPLEX Qty: 180 0RF Dose Instruction: TAKE ONE TABLET BY MOUTH TWICE DAILY Rx Instructions: TAKE ONE TABLET BY MOUTH TWICE DAILY calcium carbonate [Calcium 600] 600 mg calcium (1,500 mg) Tablet 600 mg PO DAILY Referrals Follow up/Referrals: Jacinto Zabala MD [Staff Physician] - See instructions Activity Restrictions/Add. Instructions Additional Instructions/Restrictions: No definitive explanation of your symptoms today. You do have blood in your urine no definitive evidence of urinary tract infection but we will treat you with antibiotics to see if that clears up but it is imperative that you follow- up with urology to have this looked into specifically to rule out malignancy. No other emergent medical condition identified today. Clinical Impressions Clinical Impression: Light headedness, Abdominal pain, Chest pain, Hematuria Print Language Print Language: Latvian Discharge ED Provider: Cynthia Martinez General Adult HPI General Chief complaint: Weakness Stated complaint: DIZZINESS Time Seen by Provider: 08/23/24 15:10 History of Present Illness HPI narrative: Patient is a 54-year-old female presented with multiple complaints. States she has a history of heart failure and she believes that she has gained significant amounts of weight recently. She states that she normally is 420 pounds but being on Ozempic she lost a lot of weight not exactly sure how much weight she lost but she has gained a lot back. She states that she has increased edema in her abdomen her lower legs and that she feels very short of breath over the last several days to weeks. Additionally she had significant chest pain yesterday throughout the day no chest pain today. Also she states that she has significant lightheadedness today and also complains of significant abdominal pain this been worsening over the last several weeks. States that she coughed a few weeks ago and had felt something tear in her abdomen and since that time has had significant pain. Related Data Home Medications ?Medication ?Instructions ?Recorded ?Confirmed calcium carbonate (Calcium 600) 600 mg PO DAILY 10/03/23 08/16/24 levothyroxine 150 mcg tablet 150 mcg PO BID 08/16/24 08/16/24 Previous Rx's ?Medication ?Instructions ?Recorded diclofenac sodium 1 % topical gel 2 g topical QID #100 grams 11/05/23 lisinopril 40 mg tablet 40 mg PO DAILY 90 days #90 tabs 12/01/23 lancets (Accu-Chek Softclix #200 ea 05/16/24 Lancets) blood-glucose meter (Accu-Chek #1 ea 05/26/24 Guide Glucose Meter) bupropion HCl 200 mg tablet,12 hr 400 mg (2 x 200 mg) PO DAILY #180 05/26/24 sustained-release tabs cholecalciferol (vitamin D3) 1,250 1,250 mcg PO WEEKLY #12 caps 05/26/24 mcg (50,000 unit) capsule fluticasone fur. 100 mcg-umeclid 1 inh inhalation DAILY #180 05/26/24 62.5 mcg-vilant 25 mcg blisters inhalat.powder (Trelegy Ellipta) ipratropium 0.5 mg-albuterol 3 mg 3 ml inhalation QID PRN shortness 05/26/24 (2.5 mg base)/3 mL nebulization of breath or wheezing #180 mL soln bumetanide 1 mg tablet See Rx Instructions .Route 06/13/24 .COMPLEX #180 tabs cyanocobalamin (vitamin B-12) See Rx Instructions .Route 06/13/24 1,000 mcg tablet .COMPLEX #30 tabs ropinirole 4 mg tablet See Rx Instructions .Route 06/13/24 .COMPLEX #30 tabs blood sugar diagnostic (Accu-Chek #50 strips 06/14/24 Guide test strips) albuterol sulfate 90 mcg/actuation See Rx Instructions .Route 06/20/24 aerosol inhaler .COMPLEX #8.5 grams spironolactone 25 mg tablet 25 mg PO DAILY #90 tabs 07/06/24 ibuprofen 800 mg tablet See Rx Instructions .Route 07/19/24 .COMPLEX #60 tabs ondansetron 4 mg disintegrating See Rx Instructions .Route 07/19/24 tablet .COMPLEX #30 tabs metformin 500 mg tablet See Rx Instructions .Route 08/10/24 .COMPLEX #180 tabs trazodone 150 mg tablet See Rx Instructions .Route 08/10/24 .COMPLEX #60 tabs nitrofurantoin 100 mg PO BID 5 days #10 caps 08/23/24 monohydrate/macrocrystals 100 mg capsule Allergies Allergy/AdvReac Type Severity Reaction Status Date / Time adhesive tape (ADHESIVE TAPE) Allergy Unknown Blister Verified 08/16/24 13:54 hydromorphone (From DILAUDID) Allergy Unknown Hypotension Verified 08/16/24 13:54 nickel (NICKEL) Allergy Unknown Blister Verified 08/16/24 13:54 PFSH PFSH Disclaimer: The information contained in this section may have been updated after the patient was seen, as this information can be updated by other users. Medical History (Updated 08/23/24 @ 17:28 by Cynthia Martinez MD) Abdominal pain UTI (urinary tract infection) Hospital discharge follow-up Establishing care with new doctor, encounter for Restless leg Glaucoma Arthritis of both knees Urinary incontinence Unspecified asthma, uncomplicated Tear of meniscus of knee Pre-diabetes Diastolic CHF, acute on chronic Pulmonary hypertension Elevated left ventricular end-diastolic pressure (LVEDP) Asthma exacerbation Sleep apnea History of COVID-19 COPD (chronic obstructive pulmonary disease) Asthma Abscess of groin, right Acute exacerbation of chronic obstructive airways disease Left against medical advice Dependent on wheelchair Assistance needed for continence Incisional hernia Lower leg pain Knee pain Vaginal bleeding Perimenopausal Cellulitis Hypothyroidism Dizziness Chest pain Sinusitis Tobacco abuse counseling Tobacco abuse HONEY (obstructive sleep apnea) Ventral hernia Dyspnea Depression Pharyngitis due to Streptococcus species Epigastric pain Gastritis Strep throat HTN (hypertension) Hypothyroidism (acquired) TIA (transient ischemic attack) COPD exacerbation Paresthesias Shortness of breath Acute bronchitis Tobacco abuse COPD (chronic obstructive pulmonary disease) Infiltrate of lung present on chest x-ray Atelectasis of right lung Cough Upper respiratory infection Surgical History History of lateral meniscus repair of right knee H/O tubal ligation Hx of cholecystectomy H/O hernia repair History of colon resection Family History Mother Hypertension Diabetes Father Cancer Social History Smoking Status: Former smoker tobacco type: cigarettes packs per day: 1 years smoked: 38 smoking status stop date: 3 months ago quit status: has quit before second hand exposure: Yes alcohol intake: never substance use type: denies use current occupational status: unemployed Travel in the last 8 weeks: None household members: family and children housing: other lives independently: No marital status: legally number of children: 4 education level: other caffeine: Yes do you feel safe at home: Yes victim of physical abuse: No victim of emotional abuse: No victim of sexual abuse: No Have you lived/traveled outside [place] in past 30 days?: No Contact w/someone who lives/traveled outside [place] past 30 days?: No Exposure to someone with infectious disease in past 14 days?: No Do you have a fever (greater than 100.4 F or 38 C)?: No Have you tested positive for COVID-19: No Exposed to someone with COVID-19 in past 14 days?: No Do you have a sore throat?: No Do you have a cough?: No Do you have any weakness?: Yes Do you have any diarrhea?: No Are you experiencing any unusual bleeding?: No Do you have any muscle aches/pain?: No Do you have any abdominal pain?: No Are you experiencing loss of taste or smell?: No Other Medical History Have you received the Flu Vaccine for this season: No Have you received the Pneumonia Vaccine: No ROS Obtained: Yes All systems reviewed & no additional complaints except as documented Physical Exam General General appearance: other (Morbidly obese) Respiratory Respiratory exam: Present other (2 L nasal cannula oxygen saturation 92% patient has no significant respiratory distress she does have diffuse mild wheezing) Cardiovascular Cardiovascular exam: Present regular rate, normal rhythm and other (3+ bilateral lower extremity edema) Neurological Exam Neurological exam: Present alert and oriented X3 Medical Decision Making Medical Records Screening: Per USPSTF and CDC recommendations, given the prevalence of disease in our region, it is our hospital?s policy to screen for HIV and viral Hepatitis for all patients aged 18 and over and those with ongoing risk factors. [place] Inquiry Pt receiving controlled substance: No Vital Signs: 08/23/24 15:10 08/23/24 15:30 08/23/24 15:45 Temperature 98.0 F Temperature Source Oral Pulse Rate 95 H 89 Pulse Rate [Radial] 94 H Respiratory Rate 18 Blood Pressure 130/87 Blood Pressure [Left Arm] 130/71 Blood Pressure Mean [Left Arm] 90 Blood Pressure Source [Left Arm] Automatic Cuff Blood Pressure Position [Left Arm] Sitting 02 Sat by Pulse Oximetry 95 95 95 Oxygen Delivery Method Nasal Cannula Nasal Cannula Nasal Cannula Oxygen Flow Rate (LPM) 2 2 2 Lab Data Lab results reviewed: Yes I reviewed the patient's lab results. Lab Results 08/23/24 15:10: WBC 8.4, RBC 4.37, Hgb 11.8 L, Hct 39.6, MCV 90.6, MCH 27.0, M CHC 29.8 L, RDW 15.7, Plt Count 286, MPV 10.7 H, Neut % (Auto) 73.3, Lymph % (Auto) 18.0, [place] % (Auto) 5.7, Eos % (Auto) 1.8, Baso % (Auto) 0.6, Neut # (Auto) 6.2, Lymph # (Auto) 1.5, [place] # (Auto) 0.5, Eos # (Auto) 0.2, Baso # (Auto) 0.1, Sodium 134 L, Potassium 4.3, Chloride 84 L, Carbon Dioxide 38 H, A [place] 16.3 H, BUN 17, Creatinine 1.00, Estimated GFR 57 L, Est GFR ( Amer) 69, Glucose 184 H, Calcium 9.8, Total Bilirubin 0.3, AST 33, ALT 24, Alkaline Phosphatase 104, Troponin I < 0.01, NT-Pro-B Natriuret Pep 28.2, Total Protein 7.8, Albumin 4.0, Globulin 3.8 H, Albumin/Globulin Ratio 1.1, Lipase 43 08/23/24 15:20: Lactate 2.1 08/23/24 15:33: SARS-CoV-2 (PCR) Not detected, Influenza A Untype (PCR) Not detected, Influenza Type B (PCR) Not detected 08/23/24 15:56: Urine Color Yellow, Urine Appearance Clear, Urine pH 7.0, Ur Specific [place] 1.010, Urine Protein Negative, Urine Glucose (UA) Negative, Urine Ketones Negative, Urine Blood 2+ A, Urine Nitrate Negative, Urine Bilirubin Negative, Urine Urobilinogen 0.2, Ur Leukocyte Esterase Negative, Urine RBC 10-20, Urine WBC Occasional, Ur Squamous Epith Cells Occasional, Urine Bacteria Trace 08/23/24 15:10 08/23/24 15:10 Orders (Tests/Meds): ED MEDICATIONS Discontinued Medications Generic Name Dose Route Start Last Admin Trade Name Freq PRN Reason Stop Dose Admin Iopamidol 80 ml 08/23/24 16:15 08/23/24 16:17 Iopamidol-370 (76%);100ml Bottle IV 08/23/24 16:16 80 ml ONCE ONE Administration Sodium Chloride 10 ml 08/23/24 16:15 08/23/24 16:17 Sodium Chloride 0.9% 10ml Syr (Rad Only) IV 08/23/24 16:16 10 ml ONCE ONE Administration Sodium Chloride 50 ml 08/23/24 16:15 08/23/24 16:17 0.9 % Sodium Chloride 50 Ml Vial IV 08/23/24 16:16 50 ml ONCE ONE Administration ORDERS Category Date Time Status CT abdomen pelvis w con Stat Cat Scan 08/23/24 15:[address] angio chest PE protocol Stat Cat Scan 08/23/24 15:17 Completed BNP [NT Pro Brain Natriuretic Pep.] Stat Lab 08/23/24 15:10 Completed CBC w/Auto Diff [Complete Blood Count Auto Diff] Stat Lab 08/23/24 15:10 Completed CMP [Comprehensive Metabolic Panel] Stat Lab 08/23/24 15:10 Completed HIV Combo Stat Lab 08/23/24 16:01 Ordered Hepatitis C Ab Qual. W/ RFX Stat Lab 08/23/24 16:01 Ordered Lactic Acid Stat Lab 08/23/24 15:20 Completed Lipase Stat Lab 08/23/24 15:10 Completed Rapid PCR Covid and Flu A/B Stat Lab 08/23/24 15:33 Completed Trop I [Troponin I] Stat Lab 08/23/24 15:10 Completed Troponin I Q3H Lab 08/23/24 18:30 Ordered Troponin I Q3H Lab 08/23/24 21:30 Ordered UA [Urinalysis and Microscopic] Stat Lab 08/23/24 15:56 Completed ECG Data Tracing #1: I reviewed this ECG and interpreted as documented below: Ventricular rate of 90 there is radiation enlargement right bundle branch block left anterior fascicular block left ventricular hypertrophy no acute ischemic changes noted Medical Decision Narrative: 54-year-old morbidly obese presents today with multiple complaints. Differential is quite broad in this patient who presents with lightheadedness chest pain abdominal pain increasing shortness of breath etc. This could be anything from a metabolic abnormalities or cardiopulmonary emergency to intra- abdominal pathology. Will get a CT scan of her chest abdomen pelvis in addition to metabolic infectious workup. EKG also will be obtained. Reassessment patient CT scans were performed which I personally interpreted she is got a very large anterior abdominal wall hernia without any evidence of obstruction or significant definitive pathology. CT angio of the chest was personally interpreted by me as well without any acute abnormalities. Labs were essentially unremarkable aside from the fact that she is having hematuria after further questioning she states she has been peeing clots and they have been largely painless I am very concerned about a malignancy in this particular patient she has been given a follow-up with her urologist. She does have trace bacteria but unlikely to be an infection given her symptoms nitrofurantoin has been prescribed but unlikely to be helpful. She is aware that she needs to follow-up with urology. No emergent medical condition identified today patient was discharged in stable condition. Critical Care Critical Care Time Critical Care Time: No
[2024-08-23 15:25] LABS: Basophils # 0.1 K/mm3 (0-0.2); Basophils % 0.6 % (0.1-2.0); Eosinophils # 0.2 K/mm3 (0.0-0.4); Eosinophils % 1.8 % (0.1-12.0); Hematocrit 39.6 % (37.0-47.0); Hemoglobin 11.8 g/dL (12.2-16.2); Lymphocytes # 1.5 K/mm3 (0.7-4.5); Mean Corpuscular HGB Conc 29.8 g/dL (31.8-35.4); Mean Corpuscular Volume 90.6 fl (81-99); Mean Platelet Volume 10.7 fl (7.4-10.4); Monocytes # 0.5 K/mm3 (0.1-1.0); Monocytes % 5.7 % (1.7-9.3); Neutrophils # 6.2 K/mm3 (1.8-7.8); Neutrophils % 73.3 % (37.0-80.0); Platelet Count 286 K/mm3 (142-424); Red Blood Count 4.37 M/mm3 (4.20-5.40); Red Cell Distribution Width 15.7 % (11.5-17.5); White Blood Count 8.4 K/mm3 (4.8-10.8)
--- NOTE | 2024-08-23 15:28 | ECG_ITS ---
APPROVED REPORT Exam: Resting ECG HR:90 bpm ECG Measurements Heart Rate 90 AXES VT 171 P 74 QRSd 154 QRS -59 QT 381 T 67 QTc 429 Conclusion SINUS RHYTHM POSSIBLE RIGHT ATRIAL ENLARGEMENT [0.25mV P-WAVE] RIGHT BUNDLE BRANCH BLOCK [120+ ms QRS DURATION, UPRIGHT V1, 40+ ms S IN I/aVL/V4/V5/V6] LEFT ANTERIOR FASCICULAR BLOCK [QRS AXIS <= -45, QR IN I, RS IN II] LEFT VENTRICULAR HYPERTROPHY AND ST-T CHANGE [VOLTAGE CRITERIA PLUS ST/T ABNORMALITY] POSSIBLE ANTERIOR MYOCARDIAL INFARCTION , OF INDETERMINATE AGE [30 ms Q WAVE IN V3/V4, OR R < 0.2 mV IN V4] ABNORMAL ECG UNCONFIRMED REPORT Electronically signed by : Hernan Martinez, 08/23/2024 22:27:10
[2024-08-23 15:30] VITALS: BP 130/87; PULSE 95; O2SAT 95
--- NOTE | 2024-08-23 15:33 | PC.NURSE ---
Rapid covid/slu swab sent to lab
[2024-08-23 15:37] LABS: Coronavirus 19, PCR Not Detected (NotDetected); Influenza A, PCR Not Detected (NotDetected); Influenza B, PCR Not Detected (NotDetected)
[2024-08-23 15:41] LABS: Alanine Aminotransferase 24 U/L (12-78); Albumin/Globulin Ratio 1.1 (1.1-1.8); Alkaline Phosphatase 104 U/L (38-126); Aspartate Amino Transferase 33 U/L (14-36); Bilirubin,Total 0.3 mg/dl (0.2-1.3); Blood Urea Nitrogen 17 mg/dl (7-17); Calcium 9.8 mg/dl (8.4-10.2); Chloride 84 mmol/L (98-107); Estimated Glomerular Filt Rate 57 ml/min (>60); GFR (African American) 69 ML/MIN (>60); Globulin 3.8 g/dL (1.3-3.2); Glucose 184 mg/dl (74-100); Lipase 43 U/L (23-300); Potassium 4.3 mmoL/L (3.5-5.1); Sodium 134 mmol/L (136-145); Total Protein,Serum 7.8 g/dl (6.3-8.2)
[2024-08-23 15:45] VITALS: PULSE 89; O2SAT 95
[2024-08-23 15:51] LABS: Lactic Acid 2.1 mmol/L (0.7-2.1)
[2024-08-23 15:52] LABS: NT Pro Brain Natriuretic Pep. 28.2 pg/mL (0-125)
[2024-08-23 15:54] LABS: Troponin I < 0.01 ng/ml (0.00-0.034)
--- NOTE | 2024-08-23 15:58 | PC.NURSE ---
ROUNDED ON THE PT. THE PT VOICES THAT SHE DOES NOT NEED ANYTHING AT THIS TIME. CALL LIGHT IS WITHIN REACH OF THE PT.
[2024-08-23 16:03] LABS: Microscopic, Urine URINE MICROSCOPIC (MICROSCOPIC)
[2024-08-23 16:10] LABS: Appearance,Urine CLEAR (Clear); Bilirubin,Urine Negative (Negative); Blood, Urine 2+ (Negative); Color,Urine YELLOW (Yellow); Glucose,Urine (UA) Negative (Negative); Ketones,Urine Negative (Negative); Leukocyte Esterase,Urine Negative (Negative); Nitrate,Urine Negative (Negative); Protein,Urine Negative (Negative); Urobilinogen,Urine 0.2 EU/dl (0.2)
[2024-08-23 16:13] LABS: Anion Gap 16.3 mEq/L (5-15); Carbon Dioxide 38 mmol/L (22.0-30.0)
[2024-08-23] MEDS: IOPAMIDOL-370 (76%);100ML BOTTLE 80 ML IV (16:17)
[2024-08-23] MEDS: SODIUM CHLORIDE 0.9% 10ML SYR (RAD ONLY) 10 ML IV (16:17)
[2024-08-23] MEDS: 0.9 % SODIUM CHLORIDE 50 ML VIAL IV (16:17)
--- NOTE | 2024-08-23 16:55 | PC.NURSE ---
I rounded on the patient; she is sitting up on ED stretcher looking at her phone. No other needs at this time she reports. Call light within reach
[2024-08-23 17:25] LABS: Bacteria,Urine Trace /lpf; Squamous Epithelial Cell,Urine Occasional #/hpf (0-5); WBC,Urine Occasional #/hpf (0-3)
[2024-08-23 17:52] VITALS: BP 122/77; PULSE 84; O2SAT 95
[2024-08-23 17:53] VITALS: BP 122/77; PULSE 85; RESP 20; TEMP 36.8; O2SAT 96
[2024-08-23 19:06] LABS: HIV Combo NEGATIVE (Negative)
[2024-08-23 19:13] LABS: Hepatitis C Ab Qual. W/ RFX NEGATIVE (Negative)
[2024-08-23 19:24] LABS: Reflex Lactic Add Lactic Reflex
== END 2024-08-23 18:06 | disposition home or self-care (01) ==
PROVIDERS: Emergency Provider Student in an Organized Health Care Education/Training Program; PCP Internal Medicine
DX: R31.9 Hematuria, unspecified (principal); R10.9 Unspecified abdominal pain; R07.9 Chest pain, unspecified; R42 Dizziness and giddiness; R60.0 Localized edema; R06.02 Shortness of breath; Z87.891 Personal history of nicotine dependence
CPT/HCPCS: 71275; 74177; 80053; 81001; 83605; 83690; 83880; 84484; 85025; 86803; 87389; 87636; 93005; 99285; Q9967

== ENCOUNTER 2024-09-17 17:32 | Emergency (ER) | payer MEDICARE, OTHER, SELFPAY ==
[2024-09-17] VITALS (11 sets, daily range): BP systolic 125–149; BP diastolic 46–86; PULSE 71–87; RESP 12–22; TEMP 36.9; O2SAT 92–98; BMI 72.1
--- NOTE | 2024-09-17 17:38 | XR_ITS ---
PROCEDURE INFORMATION: Exam: XR Chest Exam date and time: 09/17/2024 5:57 PM Age: 54 years old Clinical indication: Chest wall pain; Additional info: Cp since 1 am TECHNIQUE: Imaging protocol: Radiologic exam of the chest. Views: 2 views. COMPARISON: CT ANGIO CHEST PE PROTOCOL 08/23/2024 4:06 PM FINDINGS: Lungs: Unremarkable. No consolidation. Pleural spaces: Unremarkable. No pleural effusion. No pneumothorax. Heart/Mediastinum: Unremarkable. No cardiomegaly. Bones/joints: Unremarkable. IMPRESSION: No acute findings.
--- NOTE | 2024-09-17 17:38 | ECG_ITS ---
APPROVED REPORT Exam: Resting ECG HR:87 bpm ECG Measurements Heart Rate 87 AXES TX 176 P 65 QRSd 145 QRS -50 QT 409 T 59 QTc 454 Conclusion SINUS RHYTHM RIGHT BUNDLE BRANCH BLOCK [120+ ms QRS DURATION, UPRIGHT V1, 40+ ms S IN I/aVL/V4/V5/V6] LEFT ANTERIOR FASCICULAR BLOCK [QRS AXIS <= -45, QR IN I, RS IN II] POSSIBLE LEFT VENTRICULAR HYPERTROPHY [VOLTAGE CRITERIA PLUS LAE OR QRS WIDENING] ABNORMAL ECG NSR with RBB. No ST elevation or depression. QTc 454 UNCONFIRMED REPORT Electronically signed by : OK GUARDADO, 09/17/2024 21:01:49
--- NOTE | 2024-09-17 18:12 | [facility].EDCP ---
Discharge Plan Disposition Patient Disposition: Home, Self-Care Condition: Good Prescriptions Prescriptions: No Action diclofenac sodium 1 % gel 2 g topical QID Qty: 100 2RF Rx Instructions: apply to single elbow, wrist or hand; for hand includes palm/fingers/back of hand levothyroxine 150 mcg tablet 150 mcg PO BID Patient Comments: TAKE TWO TABLETS BY MOUTH EVERY DAY IN THE MORNING lisinopril 40 mg tablet 40 mg PO DAILY 90 Days Qty: 90 1RF (DME) lancets [Accu-Chek Softclix Lancets] Misc See Rx Instructions .ROUTE .COMPLEX Qty: 200 3RF Dose Instruction: USE TO test blood sugar THREE TIMES DAILY Rx Instructions: USE TO test blood sugar THREE TIMES DAILY (DME) blood-glucose meter [Accu-Chek Guide Glucose Meter] Mis See Rx Instructions .Route Qty: 1 3RF Rx Instructions: As directed bupropion HCl 200 mg tablet sustained-release 12 hr 400 mg PO DAILY Qty: 180 1RF ipratropium-albuterol 0.5 mg-3 mg(2.5 mg base)/3 mL solution for nebulization 3 ml inhalation QID PRN (Reason: shortness of breath or wheezing) Qty: 180 10RF cholecalciferol (vitamin D3) 1,250 mcg (50,000 unit) capsule 1,250 mcg PO WEEKLY Qty: 12 3RF ropinirole 4 mg tablet See Rx Instructions .ROUTE .COMPLEX Qty: 30 5RF Dose Instruction: TAKE ONE TABLET BY MOUTH EVERY DAY Rx Instructions: TAKE ONE TABLET BY MOUTH EVERY DAY cyanocobalamin (vitamin B-12) 1,000 mcg tablet See Rx Instructions .ROUTE .COMPLEX Qty: 30 5RF Dose Instruction: TAKE ONE TABLET BY MOUTH EVERY DAY Rx Instructions: TAKE ONE TABLET BY MOUTH EVERY DAY bumetanide 1 mg tablet See Rx Instructions .ROUTE .COMPLEX Qty: 180 3RF Dose Instruction: TAKE THREE TABLETS BY MOUTH TWICE DAILY Rx Instructions: TAKE THREE TABLETS BY MOUTH TWICE DAILY albuterol sulfate 90 mcg/actuation HFA aerosol inhaler See Rx Instructions .ROUTE .COMPLEX Qty: 8.5 10RF Dose Instruction: INHALE 2 PUFFS BY MOUTH EVERY 4 TO 6 HOURS NEEDED FOR SHORTNESS OF BREATH OR wheezing Rx Instructions: INHALE 2 PUFFS BY MOUTH EVERY 4 TO 6 HOURS NEEDED FOR SHORTNESS OF BREATH OR wheezing spironolactone 25 mg tablet 25 mg PO DAILY Qty: 90 3RF trazodone 150 mg tablet See Rx Instructions .ROUTE .COMPLEX Qty: 60 5RF Dose Instruction: TAKE TWO TABLETS BY MOUTH EVERY DAY AT BEDTIME Rx Instructions: TAKE TWO TABLETS BY MOUTH EVERY DAY AT BEDTIME metformin 500 mg tablet See Rx Instructions .ROUTE .COMPLEX Qty: 180 0RF Dose Instruction: TAKE ONE TABLET BY MOUTH TWICE DAILY Rx Instructions: TAKE ONE TABLET BY MOUTH TWICE DAILY (DME) Accu-Chek Guide test strips Strip See Rx Instructions .ROUTE .COMPLEX Qty: 50 3RF Dose Instruction: USE TO test blood sugar THREE TIMES DAILY Rx Instructions: USE TO test blood sugar THREE TIMES DAILY meloxicam 15 mg tablet 15 mg PO DAILY Qty: 30 2RF ondansetron 4 mg tablet,disintegrating See Rx Instructions .ROUTE .COMPLEX Qty: 30 1RF Dose Instruction: DISSOLVE ONE TABLET in MOUTH EVERY 8 HOURS NEEDED FOR NAUSEA AND VOMITING Rx Instructions: DISSOLVE ONE TABLET in MOUTH EVERY 8 HOURS NEEDED FOR NAUSEA AND VOMITING Trelegy Ellipta 100-62.5-25 mcg blister with device See Rx Instructions .ROUTE .COMPLEX Qty: 60 5RF Dose Instruction: INHALE 1 PUFF BY MOUTH EVERY DAY --RINSE MOUTH AFTER USE-- Rx Instructions: INHALE 1 PUFF BY MOUTH EVERY DAY --RINSE MOUTH AFTER USE-- calcium carbonate [Calcium 600] 600 mg calcium (1,500 mg) Tablet 600 mg PO DAILY nitrofurantoin monohyd/m-cryst 100 mg capsule 100 mg PO BID 5 Days Qty: 10 0RF Rx Instructions: must administer with a meal/food Referrals Follow up/Referrals: Provider,Referral, MD [Primary Care Provider] - See instructions Activity Restrictions/Add. Instructions Additional Instructions/Restrictions: Today your evaluated in the emergency department for chest pain and abdominal pain. Your workup was unremarkable. The CT scan of your abdomen was unremarkable for anything acute. Please follow-up with your PCP within 3 days. Return to the ED for worsening of condition. Clinical Impressions Clinical Impression: Abdominal pain Qualifiers: Abdominal location: unspecified location Qualified Code(s): R10.9 - Unspecified abdominal pain Chest pain Qualifiers: Chest pain type: unspecified Qualified Code(s): R07.9 - Chest pain, unspecified Print Language Print Language: Luxembourgish Discharge ED Provider: Nile Bowling <Na Helm APRN - Last Filed: 09/17/24 20:24> General Chief Complaint: Chest Pain Stated Complaint: abdominal pain Time Seen by Provider: 09/17/24 17:49 Mode of Arrival: EMS Source of Information: Patient and EMS Limitations: Physical Limitations Description of Symptoms (Recalled from ER Triage Doc. by RN): pt presents to ED via [facility] for chest pain and abdominal pain. pt reports symptoms began this am around 0200. pt reports taking meloxicam and pain subsiding around 0500. pt with hernia that began in 2013. History of Present Illness HPI narrative: Patient is a 54-year-old female PMHx HFpEF, pulmonary edema, COPD (2L NC), DM2, urinary incontinence, large abdominal hernia, tobacco dependence, HTN, hypothyroidism who presents to the ED for chest pain that has been present intermittently for 2 weeks. Patient describes her chest pain as a gnawing generalized pain. She denies any radiation of pain. Patient states she started taking Ozempic about 1 month ago. Related Data Home Medications ?Medication ?Instructions ?Recorded ?Confirmed calcium carbonate (Calcium 600) 600 mg PO DAILY 10/03/23 08/16/24 levothyroxine 150 mcg tablet 150 mcg PO BID 08/16/24 08/16/24 Previous Rx's ?Medication ?Instructions ?Recorded diclofenac sodium 1 % topical gel 2 g topical QID #100 grams 11/05/23 lisinopril 40 mg tablet 40 mg PO DAILY 90 days #90 tabs 12/01/23 lancets (Accu-Chek Softclix #200 ea 05/16/24 Lancets) blood-glucose meter (Accu-Chek #1 ea 05/26/24 Guide Glucose Meter) bupropion HCl 200 mg tablet,12 hr 400 mg (2 x 200 mg) PO DAILY #180 05/26/24 sustained-release tabs cholecalciferol (vitamin D3) 1,250 1,250 mcg PO WEEKLY #12 caps 05/26/24 mcg (50,000 unit) capsule ipratropium 0.5 mg-albuterol 3 mg 3 ml inhalation QID PRN shortness 05/26/24 (2.5 mg base)/3 mL nebulization of breath or wheezing #180 mL soln bumetanide 1 mg tablet See Rx Instructions .Route 06/13/24 .COMPLEX #180 tabs cyanocobalamin (vitamin B-12) See Rx Instructions .Route 06/13/24 1,000 mcg tablet .COMPLEX #30 tabs ropinirole 4 mg tablet See Rx Instructions .Route 06/13/24 .COMPLEX #30 tabs albuterol sulfate 90 mcg/actuation See Rx Instructions .Route 06/20/24 aerosol inhaler .COMPLEX #8.5 grams spironolactone 25 mg tablet 25 mg PO DAILY #90 tabs 07/06/24 metformin 500 mg tablet See Rx Instructions .Route 08/10/24 .COMPLEX #180 tabs trazodone 150 mg tablet See Rx Instructions .Route 08/10/24 .COMPLEX #60 tabs nitrofurantoin 100 mg PO BID 5 days #10 caps 08/23/24 monohydrate/macrocrystals 100 mg capsule blood sugar diagnostic (Accu-Chek #50 strips 09/06/24 Guide test strips) meloxicam 15 mg tablet 15 mg PO DAILY #30 tabs 09/08/24 ondansetron 4 mg disintegrating See Rx Instructions .Route 09/12/24 tablet .COMPLEX #30 tabs fluticasone fur. 100 mcg-umeclid See Rx Instructions .Route 09/16/24 62.5 mcg-vilant 25 mcg .COMPLEX #60 blisters inhalat.powder (Trelegy Ellipta) Allergies Allergy/AdvReac Type Severity Reaction Status Date / Time adhesive tape (ADHESIVE TAPE) Allergy Unknown Blister Verified 09/17/24 18:24 hydromorphone (From DILAUDID) Allergy Unknown Hypotension Verified 09/17/24 18:24 nickel (NICKEL) Allergy Unknown Blister Verified 09/17/24 18:24 [facility] <Na Helm APRN - Last Filed: 09/17/24 20:24> [facility] Disclaimer: The information contained in this section may have been updated after the patient was seen, as this information can be updated by other users. Medical History (Updated 09/17/24 @ 20:21 by Na Helm APRN) Abdominal pain UTI (urinary tract infection) Hospital discharge follow-up Establishing care with new doctor, encounter for Restless leg Glaucoma Arthritis of both knees Urinary incontinence Unspecified asthma, uncomplicated Tear of meniscus of knee Pre-diabetes Diastolic CHF, acute on chronic Pulmonary hypertension Elevated left ventricular end-diastolic pressure (LVEDP) Asthma exacerbation Sleep apnea History of COVID-19 COPD (chronic obstructive pulmonary disease) Asthma Abscess of groin, right Acute exacerbation of chronic obstructive airways disease Left against medical advice Dependent on wheelchair Assistance needed for continence Incisional hernia Lower leg pain Knee pain Vaginal bleeding Perimenopausal Cellulitis Hypothyroidism Dizziness Chest pain Sinusitis Tobacco abuse counseling Tobacco abuse HONEY (obstructive sleep apnea) Ventral hernia Dyspnea Depression Pharyngitis due to Streptococcus species Epigastric pain Gastritis Strep throat HTN (hypertension) Hypothyroidism (acquired) TIA (transient ischemic attack) COPD exacerbation Paresthesias Shortness of breath Acute bronchitis Tobacco abuse COPD (chronic obstructive pulmonary disease) Infiltrate of lung present on chest x-ray Atelectasis of right lung Cough Upper respiratory infection Surgical History History of lateral meniscus repair of right knee H/O tubal ligation Hx of cholecystectomy H/O hernia repair History of colon resection Family History Mother Hypertension Diabetes Father Cancer Social History Smoking Status: Former smoker tobacco type: cigarettes packs per day: 1 years smoked: 38 smoking status stop date: 3 months ago quit status: has quit before second hand exposure: Yes alcohol intake: never substance use type: denies use current occupational status: unemployed Travel in the last 8 weeks: None household members: family and children housing: other lives independently: No marital status: legally number of children: 4 education level: other caffeine: Yes do you feel safe at home: Yes victim of physical abuse: No victim of emotional abuse: No victim of sexual abuse: No Have you lived/traveled outside [place] in past 30 days?: No Contact w/someone who lives/traveled outside [place] past 30 days?: No Exposure to someone with infectious disease in past 14 days?: No Do you have a fever (greater than 100.4 F or 38 C)?: No Have you tested positive for COVID-19: No Exposed to someone with COVID-19 in past 14 days?: No Do you have a sore throat?: No Do you have a cough?: No Do you have any weakness?: No Do you have any diarrhea?: No Are you experiencing any unusual bleeding?: No Do you have any muscle aches/pain?: No Do you have any abdominal pain?: Yes Are you experiencing loss of taste or smell?: No Other Medical History Have you received the Flu Vaccine for this season: No Have you received the Pneumonia Vaccine: No <Na Helm APRN - Last Filed: 09/17/24 20:24> ROS Obtained: Yes Systems reviewed as appropriate & no additional complaints except as documented Physical Exam <Na Helm APRN - Last Filed: 09/17/24 20:24> General General appearance: alert and in no apparent distress Comment: morbid obesity Head Head exam: atraumatic and normocephalic Eye Eye exam: Present normal appearance and PERRL ENT ENT exam: Present normal exam Neck Neck exam: Present normal inspection Chest Chest inspection: Present normal inspection and symmetric chest wall rise; Absent tenderness Respiratory Respiratory exam: Present normal lung sounds bilaterally Cardiovascular Cardiovascular exam: Present regular rate Abdominal Exam Abdominal exam: Present soft and normal bowel sounds; Absent tenderness Extremities Exam Extremities exam: Present normal inspection and full ROM Back Exam Back exam: Present normal inspection and full ROM Neurological Exam Neurological exam: Present alert and oriented X3 Psychiatric Psychiatric exam: Present normal affect and normal mood Skin Skin exam: Present warm and dry HEART Score <Na Helm APRN - Last Filed: 09/17/24 20:24> HEART Score HEART Score assessment performed?: Yes History (anamnesis): Slightly suspicious ECG: Non-specific disturbance Age: 45-65 years Risk factors: 3 or more risk factors Troponin: </= normal limit HEART Score: 4 <Nile Bowling MD - Last Filed: 09/17/24 23:23> HEART Score HEART Score: 4 Critical Care <Na Helm APRN - Last Filed: 09/17/24 20:24> Critical Care Time Critical Care Time: No Medical Decision Making <Na Helm APRN - Last Filed: 09/17/24 20:24> Woodrow Inquiry Pt receiving controlled substance: No Woodrow was queried for this patient: No Vital Signs Vital Signs: 09/17/24 17:44 09/17/24 18:30 09/17/24 18:45 Temperature 98.4 F Temperature Source Oral Pulse Rate 86 71 Pulse Rate [Left Radial] 87 Respiratory Rate 19 14 17 Blood Pressure 125/86 Blood Pressure [Right Arm] 145/46 H Blood Pressure Mean [Right Arm] 79 Blood Pressure Position 02 Sat by Pulse Oximetry 95 95 96 Oxygen Delivery Method Nasal Cannula 09/17/24 19:00 09/17/24 19:15 09/17/24 19:30 Temperature Temperature Source Pulse Rate 87 86 79 Pulse Rate [Left Radial] Respiratory Rate 18 13 13 Blood Pressure 127/66 149/64 H Blood Pressure [Right Arm] Blood Pressure Mean [Right Arm] Blood Pressure Position 02 Sat by Pulse Oximetry 96 95 94 L Oxygen Delivery Method 09/17/24 19:51 09/17/24 20:00 09/17/24 20:15 Temperature Temperature Source Pulse Rate 87 84 84 Pulse Rate [Left Radial] Respiratory Rate 22 14 18 Blood Pressure 133/59 L Blood Pressure [Right Arm] Blood Pressure Mean [Right Arm] Blood Pressure Position 02 Sat by Pulse Oximetry 92 L 97 98 Oxygen Delivery Method 09/17/24 20:30 09/17/24 22:02 Temperature 98.4 F Temperature Source Oral Pulse Rate 85 83 Pulse Rate [Left Radial] Respiratory Rate 12 20 Blood Pressure 140/61 140/60 Blood Pressure [Right Arm] Blood Pressure Mean [Right Arm] Blood Pressure Position Supine 02 Sat by Pulse Oximetry 97 Oxygen Delivery Method Room Air Lab Data Labs: Lab Results 09/17/24 18:30: WBC 11.2 H, RBC 4.17 L, Hgb 11.4 L, Hct 37.3, MCV 89.4, MCH 27.3, MCHC 30.6 L, RDW 14.7, Plt Count 297, MPV 10.0, Neut % (Auto) 79.1, Lymph % (Auto) 14.1, [place] % (Auto) 4.5, Eos % (Auto) 1.4, Baso % (Auto) 0.3, Neut # (Auto) 8.8 H, Lymph # (Auto) 1.6, [place] # (Auto) 0.5, Eos # (Auto) 0.2, Baso # (Auto) 0.0, Sodium 135 L, Potassium 4.5, Chloride 95 L, Carbon Dioxide 38 H, Anion Gap 6.5, BUN 14, Creatinine 0.80, Estimated Creat Clear 65, Estimated GFR 74, Est GFR ( Amer) 90, Glucose 125 H, Lactate 1.8, Calcium 9.0, Total Bilirubin 0.1 L, AST 24, ALT 22, Alkaline Phosphatase 108, Troponin I < 0.01, NT-Pro-B Natriuret Pep 90.9, Total Protein 7.2, Albumin 3.5, Globulin 3.7 H, Albumin/Globulin Ratio 0.9 L 09/17/24 18:42: VBG pH 7.31, VBG pCO2 67.9 H, VBG pO2 34.9, VBG HCO3 33.1 H, VBG Total CO2 35.2 H, VBG O2 Saturation 59.1, VBG Base Excess 6.8 H, VBG Lactic Acid 1.8 09/17/24 19:35: Urine Color Yellow, Urine Appearance Clear, Urine pH 6.0, Ur Specific [place] 1.015, Urine Protein Negative, Urine Glucose (UA) Negative, Urine Ketones Negative, Urine Blood Negative, Urine Nitrate Negative, Urine Bilirubin Negative, Urine Urobilinogen 0.2, Ur Leukocyte Esterase Negative, Urine RBC Occasional, Urine WBC Occasional, Ur Squamous Epith Cells 5-10, Urine Bacteria Trace 09/17/24 18:30 09/17/24 18:30 Response Orders (Tests/Meds): ED MEDICATIONS Discontinued Medications Generic Name Dose Route Start Last Admin Trade Name Freq PRN Reason Stop Dose Admin Iopamidol 75 ml 09/17/24 19:40 09/17/24 19:44 Iopamidol-370 (76%);100ml Bottle IV 09/17/24 19:41 75 ml ONCE ONE Administration Morphine Sulfate 4 mg 09/17/24 20:04 09/17/24 20:18 Morphine 4mg/Ml Syringe IV 09/17/24 20:05 4 mg ONCE ONE Administration Ondansetron HCl 4 mg 09/17/24 20:04 09/17/24 20:17 Ondansetron 4mg/2ml Vial IV 09/17/24 20:05 4 mg ONCE ONE Administration Sodium Chloride 10 ml 09/17/24 19:40 09/17/24 19:44 Sodium Chloride 0.9% 10ml Syr (Rad Only) IV 09/17/24 19:41 10 ml ONCE ONE Administration ORDERS Category Date Time Status CT abdomen pelvis w con Stat Cat Scan 09/17/24 19:20 Completed XR chest 2V Stat Exams 09/17/24 17:38 Completed BNP [NT Pro Brain Natriuretic Pep.] Stat Lab 09/17/24 18:30 Completed CBC w/Auto Diff [Complete Blood Count Auto Diff] Stat Lab 09/17/24 18:30 Completed CMP [Comprehensive Metabolic Panel] Stat Lab 09/17/24 18:30 Completed Lactic Acid Stat Lab 09/17/24 18:30 Completed Trop I [Troponin I] Stat Lab 09/17/24 18:30 Completed Urinalysis and Microscopic Stat Lab 09/17/24 19:35 Completed Blood Culture Stat Micro 09/17/24 18:35 Received VBG [Venous Blood Gas] Stat RT 09/17/24 18:42 Completed MDM Narrative Medical Decision Narrative: In summary, patient is a 54-year-old female PMHx HFpEF, pulmonary edema, COPD (2L NC), DM2, urinary incontinence, large abdominal hernia, tobacco dependence, HTN, hypothyroidism who presents to the ED for chest pain that has been present intermittently for 2 weeks. Patient describes her chest pain as a gnawing generalized pain. She denies any radiation of pain. Patient states she started taking Ozempic about 1 month ago. She is having regular bowel movements. Upon initial exam, patient is alert, oriented and cooperative. Patient is hemodynamically stable. Physical exam remarkable for morbid obesity, large left lower quadrant abdomen hernia. Differential diagnosis includes ACS, pneumonia, pneumothorax, dissection, pulmonary embolism, infectious process, SBO, among others. Initial workup will be conducted with hematologic labs, EKG, imaging. Initial workup reviewed by me. Hematologic labs remarkable for mild leukocytosis, WBC 11.2, stable H&H. CMP remarkable for sodium 135. Lactate 1.8. First troponin < 0.01. Chest x-ray unremarkable for any acute findings. Records reviewed,'s chest CTA from 08/23/2024 remarkable for no central pulmonary arterial filling defects, aorta is normal in caliber, consolidations at the bases could be atelectasis versus infectious. Reviewed abdomen pelvis CT from 08/23/2024 which was remarkable for a large left-sided ventral abdominal wall hernia containing multiple loops of bowel. Upon repeat evaluation, patient states that her chest pain has resolved however she is having increasing abdominal pain and feels like my stomach is going to burst . Patient states this abdominal pain feels different from her normal hernia pain. Patient is requesting a CT scan. CT scan of the abdomen unremarkable for any acute findings. Her symptoms have resolved. Given this, I feel the patient is safe to be discharged home at this time. I discussed with the patient that she needs to follow-up with her PCP. Discussed return precautions to the ED. <Nile Bowling MD - Last Filed: 09/17/24 23:23> Vital Signs Vital Signs: 09/17/24 17:44 09/17/24 18:30 09/17/24 18:45 Temperature 98.4 F Temperature Source Oral Pulse Rate 86 71 Pulse Rate [Left Radial] 87 Respiratory Rate 19 14 17 Blood Pressure 125/86 Blood Pressure [Right Arm] 145/46 H Blood Pressure Mean [Right Arm] 79 Blood Pressure Position 02 Sat by Pulse Oximetry 95 95 96 Oxygen Delivery Method Nasal Cannula 09/17/24 19:00 09/17/24 19:15 09/17/24 19:30 Temperature Temperature Source Pulse Rate 87 86 79 Pulse Rate [Left Radial] Respiratory Rate 18 13 13 Blood Pressure 127/66 149/64 H Blood Pressure [Right Arm] Blood Pressure Mean [Right Arm] Blood Pressure Position 02 Sat by Pulse Oximetry 96 95 94 L Oxygen Delivery Method 09/17/24 19:51 09/17/24 20:00 09/17/24 20:15 Temperature Temperature Source Pulse Rate 87 84 84 Pulse Rate [Left Radial] Respiratory Rate 22 14 18 Blood Pressure 133/59 L Blood Pressure [Right Arm] Blood Pressure Mean [Right Arm] Blood Pressure Position 02 Sat by Pulse Oximetry 92 L 97 98 Oxygen Delivery Method 09/17/24 20:30 09/17/24 22:02 Temperature 98.4 F Temperature Source Oral Pulse Rate 85 83 Pulse Rate [Left Radial] Respiratory Rate 12 20 Blood Pressure 140/61 140/60 Blood Pressure [Right Arm] Blood Pressure Mean [Right Arm] Blood Pressure Position Supine 02 Sat by Pulse Oximetry 97 Oxygen Delivery Method Room Air Lab Data Labs: Lab Results 09/17/24 18:30: WBC 11.2 H, RBC 4.17 L, Hgb 11.4 L, Hct 37.3, MCV 89.4, MCH 27.3, MCHC 30.6 L, RDW 14.7, Plt Count 297, MPV 10.0, Neut % (Auto) 79.1, Lymph % (Auto) 14.1, [place] % (Auto) 4.5, Eos % (Auto) 1.4, Baso % (Auto) 0.3, Neut # (Auto) 8.8 H, Lymph # (Auto) 1.6, [place] # (Auto) 0.5, Eos # (Auto) 0.2, Baso # (Auto) 0.0, Sodium 135 L, Potassium 4.5, Chloride 95 L, Carbon Dioxide 38 H, Anion Gap 6.5, BUN 14, Creatinine 0.80, Estimated Creat Clear 65, Estimated GFR 74, Est GFR ( Amer) 90, Glucose 125 H, Lactate 1.8, Calcium 9.0, Total Bilirubin 0.1 L, AST 24, ALT 22, Alkaline Phosphatase 108, Troponin I < 0.01, NT-Pro-B Natriuret Pep 90.9, Total Protein 7.2, Albumin 3.5, Globulin 3.7 H, Albumin/Globulin Ratio 0.9 L 09/17/24 18:42: VBG pH 7.31, VBG pCO2 67.9 H, VBG pO2 34.9, VBG HCO3 33.1 H, VBG Total CO2 35.2 H, VBG O2 Saturation 59.1, VBG Base Excess 6.8 H, VBG Lactic Acid 1.8 09/17/24 19:35: Urine Color Yellow, Urine Appearance Clear, Urine pH 6.0, Ur Specific [place] 1.015, Urine Protein Negative, Urine Glucose (UA) Negative, Urine Ketones Negative, Urine Blood Negative, Urine Nitrate Negative, Urine Bilirubin Negative, Urine Urobilinogen 0.2, Ur Leukocyte Esterase Negative, Urine RBC Occasional, Urine WBC Occasional, Ur Squamous Epith Cells 5-10, Urine Bacteria Trace Response Orders (Tests/Meds): ED MEDICATIONS Discontinued Medications Generic Name Dose Route Start Last Admin Trade Name Freq PRN Reason Stop Dose Admin Iopamidol 75 ml 09/17/24 19:40 09/17/24 19:44 Iopamidol-370 (76%);100ml Bottle IV 09/17/24 19:41 75 ml ONCE ONE Administration Morphine Sulfate 4 mg 09/17/24 20:04 09/17/24 20:18 Morphine 4mg/Ml Syringe IV 09/17/24 20:05 4 mg ONCE ONE Administration Ondansetron HCl 4 mg 09/17/24 20:04 09/17/24 20:17 Ondansetron 4mg/2ml Vial IV 09/17/24 20:05 4 mg ONCE ONE Administration Sodium Chloride 10 ml 09/17/24 19:40 09/17/24 19:44 Sodium Chloride 0.9% 10ml Syr (Rad Only) IV 09/17/24 19:41 10 ml ONCE ONE Administration ORDERS Category Date Time Status CT abdomen pelvis w con Stat Cat Scan 09/17/24 19:20 Completed XR chest 2V Stat Exams 09/17/24 17:38 Completed BNP [NT Pro Brain Natriuretic Pep.] Stat Lab 09/17/24 18:30 Completed CBC w/Auto Diff [Complete Blood Count Auto Diff] Stat Lab 09/17/24 18:30 Completed CMP [Comprehensive Metabolic Panel] Stat Lab 09/17/24 18:30 Completed Lactic Acid Stat Lab 09/17/24 18:30 Completed Trop I [Troponin I] Stat Lab 09/17/24 18:30 Completed Urinalysis and Microscopic Stat Lab 09/17/24 19:35 Completed Blood Culture Stat Micro 09/17/24 18:35 Received VBG [Venous Blood Gas] Stat RT 09/17/24 18:42 Completed MDM Narrative Medical Decision Narrative: In summary, patient is a 54-year-old female PMHx HFpEF, pulmonary edema, COPD (2L NC), DM2, urinary incontinence, large abdominal hernia, tobacco dependence, HTN, hypothyroidism who presents to the ED for chest pain that has been present intermittently for 2 weeks. Patient describes her chest pain as a gnawing generalized pain. She denies any radiation of pain. Patient states she started taking Ozempic about 1 month ago. She is having regular bowel movements. Upon initial exam, patient is alert, oriented and cooperative. Patient is hemodynamically stable. Physical exam remarkable for morbid obesity, large left lower quadrant abdomen hernia. Differential diagnosis includes ACS, pneumonia, pneumothorax, dissection, pulmonary embolism, infectious process, SBO, among others. Initial workup will be conducted with hematologic labs, EKG, imaging. Initial workup reviewed by me. Hematologic labs remarkable for mild leukocytosis, WBC 11.2, stable H&H. CMP remarkable for sodium 135. Lactate 1.8. First troponin < 0.01. Chest x-ray unremarkable for any acute findings. Records reviewed,'s chest CTA from 08/23/2024 remarkable for no central pulmonary arterial filling defects, aorta is normal in caliber, consolidations at the bases could be atelectasis versus infectious. Reviewed abdomen pelvis CT from 08/23/2024 which was remarkable for a large left-sided ventral abdominal wall hernia containing multiple loops of bowel. Upon repeat evaluation, patient states that her chest pain has resolved however she is having increasing abdominal pain and feels like my stomach is going to burst . Patient states this abdominal pain feels different from her normal hernia pain. Patient is requesting a CT scan. CT scan of the abdomen unremarkable for any acute findings. Her symptoms have resolved. Given this, I feel the patient is safe to be discharged home at this time. I discussed with the patient that she needs to follow-up with her PCP. Discussed return precautions to the ED. I was consulted by the DYLON, and we discussed the complexity of the problems being addressed. I approve the treatment and management plan for this patient's care in the emergency department, thus performing a substantive portion of the medical decision making. Nile Bowling MD
[2024-09-17 18:37] LABS: Basophils % 0.3 % (0.1-2.0); Eosinophils # 0.2 K/mm3 (0.0-0.4); Eosinophils % 1.4 % (0.1-12.0); Hematocrit 37.3 % (37.0-47.0); Hemoglobin 11.4 g/dL (12.2-16.2); Lymphocytes # 1.6 K/mm3 (0.7-4.5); Lymphocytes % 14.1 % (10-50); Mean Corpuscular HGB Conc 30.6 g/dL (31.8-35.4); Mean Corpuscular Hemoglobin 27.3 pg (27.0-31.2); Mean Corpuscular Volume 89.4 fl (81-99); Monocytes # 0.5 K/mm3 (0.1-1.0); Monocytes % 4.5 % (1.7-9.3); Neutrophils # 8.8 K/mm3 (1.8-7.8); Neutrophils % 79.1 % (37.0-80.0); Platelet Count 297 K/mm3 (142-424); Red Blood Count 4.17 M/mm3 (4.20-5.40); Red Cell Distribution Width 14.7 % (11.5-17.5); White Blood Count 11.2 K/mm3 (4.8-10.8)
--- NOTE | 2024-09-17 18:42 | PC.NURSE ---
respiratory notified of vbg
[2024-09-17 18:45] LABS: Chloride 95 mmol/L (98-107)
[2024-09-17 18:46] LABS: Albumin Level 3.5 g/dl (3.5-5.0); Potassium 4.5 mmoL/L (3.5-5.1); Sodium 135 mmol/L (136-145)
[2024-09-17 18:48] LABS: Alanine Aminotransferase 22 U/L (12-78); Anion Gap 6.5 mEq/L (5-15); Aspartate Amino Transferase 24 U/L (14-36); Blood Urea Nitrogen 14 mg/dl (7-17); Carbon Dioxide 38 mmol/L (22.0-30.0); Creatinine Clearance Estimated 65 mL/min (50-200); Estimated Glomerular Filt Rate 74 ml/min (>60); GFR (African American) 90 ML/MIN (>60)
[2024-09-17 18:49] LABS: Albumin/Globulin Ratio 0.9 (1.1-1.8); Alkaline Phosphatase 108 U/L (38-126); Globulin 3.7 g/dL (1.3-3.2); Glucose 125 mg/dl (74-100); Lactic Acid 1.8 mmol/L (0.7-2.1); Total Protein,Serum 7.2 g/dl (6.3-8.2)
[2024-09-17 18:51] LABS: Bilirubin,Total 0.1 mg/dl (0.2-1.3)
[2024-09-17 18:52] LABS: Lactate Venous 1.8 mmol/L (0.4-2.0); VBG Base Excess 6.8 mmol/L (-2.4-2.3); VBG HCO3 33.1 mmol/L (23-30); VBG Oxygen Saturation 59.1 % (50-70); VBG PH 7.31 mmol/L (7.31-7.41); VBG PO2 34.9 mmol/L (28-40); VBG Total CO2 35.2 mmol/L (23-27)
[2024-09-17 18:54] LABS: VBG PCO2 67.9 mmol/L (35-51)
[2024-09-17 18:58] LABS: NT Pro Brain Natriuretic Pep. 90.9 pg/mL (0-125)
[2024-09-17 19:05] LABS: Troponin I < 0.01 ng/ml (0.00-0.034)
--- NOTE | 2024-09-17 19:14 | PC.NURSE ---
Gave the patient some ice water
--- NOTE | 2024-09-17 19:17 | PC.NURSE ---
rounded on pt at this time. pt voices no needs. call light in reach
--- NOTE | 2024-09-17 19:20 | CT_ITS ---
PROCEDURE INFORMATION: Exam: CT Abdomen And Pelvis With Contrast Exam date and time: 09/17/2024 7:41 PM Age: 54 years old Clinical indication: Abdominal pain; Localized; Left lower quadrant (llq); Additional info: Abd pain TECHNIQUE: Imaging protocol: Computed tomography of the abdomen and pelvis with contrast. Radiation optimization: All CT scans at this facility use at least one of these dose optimization techniques: automated exposure control; mA and/or kV adjustment per patient size (includes targeted exams where dose is matched to clinical indication); or iterative reconstruction. Contrast material: ISOVUE; Contrast volume: 75 ml; Contrast route: IV; COMPARISON: CT ABDOMEN PELVIS W CON 08/23/2024 4:06 PM FINDINGS: Liver: Normal. No mass. Gallbladder and biliary ducts: Gallbladder is surgically absent. No biliary ductal dilation. Pancreas: Normal. No ductal dilation. Spleen: Normal. No splenomegaly. Adrenal glands: Normal. No mass. Kidneys and ureters: Normal. No hydronephrosis. Stomach and bowel: No evidence of bowel obstruction or mucosal thickening. Multiple bowel loops lie outside of the field of view due to the large ventral hernia. Appendix: No evidence of appendicitis. Intraperitoneal space: Unremarkable. No free air. No significant fluid collection. Vasculature: Unremarkable. No abdominal aortic aneurysm. Lymph nodes: Unremarkable. No enlarged lymph nodes. Urinary bladder: Unremarkable as visualized. Reproductive: Unremarkable as visualized. Bones/joints: Moderate degenerative changes throughout the lower spine. No vertebral body compression. No acute fracture. Soft tissues: Large broad ventral hernia containing multiple large and small bowel loops again noted. IMPRESSION: No definite acute abnormality. As noted, multiple bowel loops lie outside of the field of view to 2 large ventral hernia. Therefore, acute bowel pathology can not be absolutely excluded. However, no evidence of obstruction is present.
--- NOTE | 2024-09-17 19:39 | PC.NURSE ---
pt to CT at this time
[2024-09-17] MEDS: SODIUM CHLORIDE 0.9% 10ML SYR (RAD ONLY) 10 ML IV (19:44)
[2024-09-17] MEDS: IOPAMIDOL-370 (76%);100ML BOTTLE 75 ML IV (19:44)
--- NOTE | 2024-09-17 19:57 | PC.NURSE ---
pt back to room from CT
[2024-09-17 20:04] LABS: Microscopic, Urine URINE MICROSCOPIC (MICROSCOPIC)
[2024-09-17 20:06] LABS: Appearance,Urine CLEAR (Clear); Bilirubin,Urine Negative (Negative); Blood, Urine Negative (Negative); Color,Urine YELLOW (Yellow); Glucose,Urine (UA) Negative (Negative); Ketones,Urine Negative (Negative); Leukocyte Esterase,Urine Negative (Negative); Nitrate,Urine Negative (Negative); Protein,Urine Negative (Negative); Specific Gravity, Urine 1.015 (1.005-1.030); Urobilinogen,Urine 0.2 EU/dl (0.2)
[2024-09-17] MEDS: ONDANSETRON 4MG/2ML VIAL 4 MG IV (20:17)
[2024-09-17] MEDS: MORPHINE 4MG/ML SYRINGE 4 MG IV (20:18)
[2024-09-17 20:24] LABS: Bacteria,Urine Trace /lpf; WBC,Urine Occasional #/hpf (0-3)
[2024-09-17 20:25] LABS: RBC,Urine Occasional #/hpf (0-3)
--- NOTE | 2024-09-17 20:34 | PC.NURSE ---
attempted to call EMS
--- NOTE | 2024-09-17 20:44 | PC.NURSE ---
attempted to call [facility] again at this time for pt transport home
--- NOTE | 2024-09-17 21:07 | PC.NURSE ---
Called dispatch to have EMS call [facility] for transport.
--- NOTE | 2024-09-17 21:25 | PC.NURSE ---
Pt aware waiting on transportation
--- NOTE | 2024-09-21 08:03 | PC.NURSE ---
called pt to fu on how they are feeling per , pt reports that she does have stomach pain still with eating, denies any fever and reports that she is gradually getting better, she is following up with her pcp to further check she feels her ozempic is causing her issues. aware, no new orders
== END 2024-09-17 22:03 | disposition home or self-care (01) ==
PROVIDERS: Nurse Practitioner; Emergency Provider Student in an Organized Health Care Education/Training Program
DX: R07.9 Chest pain, unspecified (principal); R10.9 Unspecified abdominal pain
CPT/HCPCS: 71046; 74177; 80053; 81001; 82803; 83605; 83880; 84484; 85025; 87040; 87077; 93005; 96374; 96375; 99285; J2270; J2405; Q9967

== ENCOUNTER 2024-09-23 20:08 | Observation (INO) | payer MEDICARE, OTHER, SELFPAY ==
[2024-09-23] VITALS (13 sets, daily range): BP systolic 154; BP diastolic 93; PULSE 46–86; RESP 18; TEMP 36.6; O2SAT 94–99; BMI 72.1
--- NOTE | 2024-09-23 20:22 | XR_ITS ---
PROCEDURE INFORMATION: Exam: XR Chest Exam date and time: 09/23/2024 8:52 PM Age: 54 years old Clinical indication: Shortness of breath; Additional info: SOA, decreased breath sounds TECHNIQUE: Imaging protocol: Radiologic exam of the chest. Views: 1 view. COMPARISON: CR XR CHEST 2V 09/17/2024 5:57 PM FINDINGS: Lungs: No consolidation. Pleural spaces: Unremarkable. No pleural effusion. No pneumothorax. Heart/Mediastinum: Unremarkable. No cardiomegaly. Bones/joints: Unremarkable. Other findings: Suboptimal penetration secondary to body habitus. IMPRESSION: No acute findings.
[2024-09-23] MEDS: METHYLPREDNISOLONE SOD SUCC 125MG VIAL 125 MG IV (21:30)
[2024-09-23] MEDS: FUROSEMIDE 40MG/4ML VIAL 80 MG IV (21:30)
[2024-09-23 21:47] LABS: Lactate Venous 1.3 mmol/L (0.4-2.0); VBG Base Excess 5.1 mmol/L (-2.4-2.3); VBG HCO3 30.4 mmol/L (23-30); VBG Oxygen Saturation 46.9 % (50-70); VBG PH 7.37 mmol/L (7.31-7.41); VBG Total CO2 32.1 mmol/L (23-27)
[2024-09-23 21:53] LABS: Basophils # 0.1 K/mm3 (0-0.2); Basophils % 0.5 % (0.1-2.0); Eosinophils # 0.2 K/mm3 (0.0-0.4); Eosinophils % 1.9 % (0.1-12.0); Hematocrit 35.3 % (37.0-47.0); Hemoglobin 10.7 g/dL (12.2-16.2); Lymphocytes # 1.4 K/mm3 (0.7-4.5); Lymphocytes % 14.1 % (10-50); Mean Corpuscular HGB Conc 30.3 g/dL (31.8-35.4); Mean Corpuscular Volume 89.1 fl (81-99); Mean Platelet Volume 9.7 fl (7.4-10.4); Monocytes # 0.6 K/mm3 (0.1-1.0); Monocytes % 5.7 % (1.7-9.3); Neutrophils # 7.4 K/mm3 (1.8-7.8); Neutrophils % 77.2 % (37.0-80.0); Platelet Count 305 K/mm3 (142-424); Red Blood Count 3.96 M/mm3 (4.20-5.40); Red Cell Distribution Width 14.7 % (11.5-17.5); White Blood Count 9.6 K/mm3 (4.8-10.8)
[2024-09-23 22:05] LABS: Albumin Level 3.6 g/dl (3.5-5.0); Chloride 99 mmol/L (98-107); Sodium 136 mmol/L (136-145)
[2024-09-23 22:06] LABS: Potassium 4.5 mmoL/L (3.5-5.1)
[2024-09-23 22:08] LABS: Alanine Aminotransferase 20 U/L (12-78); Albumin/Globulin Ratio 1.1 (1.1-1.8); Alkaline Phosphatase 90 U/L (38-126); Anion Gap 5.5 mEq/L (5-15); Aspartate Amino Transferase 24 U/L (14-36); Blood Urea Nitrogen 14 mg/dl (7-17); Carbon Dioxide 36 mmol/L (22.0-30.0); Creatinine Clearance Estimated 65 mL/min (50-200); Estimated Glomerular Filt Rate 74 ml/min (>60); GFR (African American) 90 ML/MIN (>60); Globulin 3.2 g/dL (1.3-3.2); Total Protein,Serum 6.8 g/dl (6.3-8.2)
[2024-09-23 22:09] LABS: Calcium 9.1 mg/dl (8.4-10.2); Glucose 106 mg/dl (74-100)
[2024-09-23 22:15] LABS: Bilirubin,Total 0.1 mg/dl (0.2-1.3)
[2024-09-23 22:18] LABS: NT Pro Brain Natriuretic Pep. 547 pg/mL (0-125)
[2024-09-23 22:21] LABS: Troponin I 0.04 ng/ml (0.00-0.034)
--- NOTE | 2024-09-23 22:27 | ED_ITS ---
Discharge Plan Disposition Patient Disposition: Admitted Chief Complaint: Shortness of Breath/Dyspnea Prescriptions Prescriptions: No Action diclofenac sodium 1 % gel 2 g topical QID Qty: 100 2RF Rx Instructions: apply to single elbow, wrist or hand; for hand includes palm/fingers/back of hand levothyroxine 150 mcg tablet 150 mcg PO BID Patient Comments: TAKE TWO TABLETS BY MOUTH EVERY DAY IN THE MORNING lisinopril 40 mg tablet 40 mg PO DAILY 90 Days Qty: 90 1RF (DME) lancets [Accu-Chek Softclix Lancets] Misc See Rx Instructions .ROUTE .COMPLEX Qty: 200 3RF Dose Instruction: USE TO test blood sugar THREE TIMES DAILY Rx Instructions: USE TO test blood sugar THREE TIMES DAILY (DME) blood-glucose meter [Accu-Chek Guide Glucose Meter] Mis See Rx Instructions .Route Qty: 1 3RF Rx Instructions: As directed bupropion HCl 200 mg tablet sustained-release 12 hr 400 mg PO DAILY Qty: 180 1RF ipratropium-albuterol 0.5 mg-3 mg(2.5 mg base)/3 mL solution for nebulization 3 ml inhalation QID PRN (Reason: shortness of breath or wheezing) Qty: 180 10RF cholecalciferol (vitamin D3) 1,250 mcg (50,000 unit) capsule 1,250 mcg PO WEEKLY Qty: 12 3RF ropinirole 4 mg tablet See Rx Instructions .ROUTE .COMPLEX Qty: 30 5RF Dose Instruction: TAKE ONE TABLET BY MOUTH EVERY DAY Rx Instructions: TAKE ONE TABLET BY MOUTH EVERY DAY cyanocobalamin (vitamin B-12) 1,000 mcg tablet See Rx Instructions .ROUTE .COMPLEX Qty: 30 5RF Dose Instruction: TAKE ONE TABLET BY MOUTH EVERY DAY Rx Instructions: TAKE ONE TABLET BY MOUTH EVERY DAY bumetanide 1 mg tablet See Rx Instructions .ROUTE .COMPLEX Qty: 180 3RF Dose Instruction: TAKE THREE TABLETS BY MOUTH TWICE DAILY Rx Instructions: TAKE THREE TABLETS BY MOUTH TWICE DAILY albuterol sulfate 90 mcg/actuation HFA aerosol inhaler See Rx Instructions .ROUTE .COMPLEX Qty: 8.5 10RF Dose Instruction: INHALE 2 PUFFS BY MOUTH EVERY 4 TO 6 HOURS NEEDED FOR SHORTNESS OF BREATH OR wheezing Rx Instructions: INHALE 2 PUFFS BY MOUTH EVERY 4 TO 6 HOURS NEEDED FOR SHORTNESS OF BREATH OR wheezing spironolactone 25 mg tablet 25 mg PO DAILY Qty: 90 3RF trazodone 150 mg tablet See Rx Instructions .ROUTE .COMPLEX Qty: 60 5RF Dose Instruction: TAKE TWO TABLETS BY MOUTH EVERY DAY AT BEDTIME Rx Instructions: TAKE TWO TABLETS BY MOUTH EVERY DAY AT BEDTIME metformin 500 mg tablet See Rx Instructions .ROUTE .COMPLEX Qty: 180 0RF Dose Instruction: TAKE ONE TABLET BY MOUTH TWICE DAILY Rx Instructions: TAKE ONE TABLET BY MOUTH TWICE DAILY (DME) Accu-Chek Guide test strips Strip See Rx Instructions .ROUTE .COMPLEX Qty: 50 3RF Dose Instruction: USE TO test blood sugar THREE TIMES DAILY Rx Instructions: USE TO test blood sugar THREE TIMES DAILY meloxicam 15 mg tablet 15 mg PO DAILY Qty: 30 2RF ondansetron 4 mg tablet,disintegrating See Rx Instructions .ROUTE .COMPLEX Qty: 30 1RF Dose Instruction: DISSOLVE ONE TABLET in MOUTH EVERY 8 HOURS NEEDED FOR NAUSEA AND VOMITING Rx Instructions: DISSOLVE ONE TABLET in MOUTH EVERY 8 HOURS NEEDED FOR NAUSEA AND VOMITING Trelegy Ellipta 100-62.5-25 mcg blister with device See Rx Instructions .ROUTE .COMPLEX Qty: 60 5RF Dose Instruction: INHALE 1 PUFF BY MOUTH EVERY DAY --RINSE MOUTH AFTER USE-- Rx Instructions: INHALE 1 PUFF BY MOUTH EVERY DAY --RINSE MOUTH AFTER USE-- calcium carbonate [Calcium 600] 600 mg calcium (1,500 mg) Tablet 600 mg PO DAILY nitrofurantoin monohyd/m-cryst 100 mg capsule 100 mg PO BID 5 Days Qty: 10 0RF Rx Instructions: must administer with a meal/food Referrals Follow up/Referrals: Vahid Garcia DO [Primary Care Provider] - See instructions Clinical Impressions Clinical Impression: CHF exacerbation, Non-ST elevation UT (NSTEMI) Print Language Print Language: Japanese Discharge ED Provider: Joey Nieto General Chief Complaint: Shortness of Breath/Dyspnea Stated Complaint: short of breath Time Seen by Provider: 09/23/24 20:14 Mode of Arrival: EMS Source of Information: Patient and EMS Description of Symptoms (Recalled from ER Triage Doc. by RN): short of breath; very anxious. Was able to calm down in ambulance History of Present Illness HPI narrative: Please note that above description of symptoms, in this electronic medical record under categorization of recalled from ER triage doctor by RN are reflective of an initial nursing assessment, however, is not reflective of my full history and physical exam that was personally taken and clarified. Consequentially, this preceding description of symptoms, which may include the patient's categorized chief complaint in the EMR, do not reflect my personal clinical impression, and the ultimate description of history of present illness and patient stated complaints should be deferred to this section of the note. Unless stated otherwise or congruent with this section of the note, additional signs, symptoms, or incongruence should be interpreted as inaccurate with my clinical impression. Related Data Home Medications ?Medication ?Instructions ?Recorded ?Confirmed calcium carbonate (Calcium 600) 600 mg PO DAILY 10/03/23 09/23/24 levothyroxine 150 mcg tablet 150 mcg PO BID 08/16/24 09/23/24 Previous Rx's ?Medication ?Instructions ?Recorded diclofenac sodium 1 % topical gel 2 g topical QID #100 grams 11/05/23 lisinopril 40 mg tablet 40 mg PO DAILY 90 days #90 tabs 12/01/23 lancets (Accu-Chek Softclix #200 ea 05/16/24 Lancets) blood-glucose meter (Accu-Chek #1 ea 05/26/24 Guide Glucose Meter) bupropion HCl 200 mg tablet,12 hr 400 mg (2 x 200 mg) PO DAILY #180 05/26/24 sustained-release tabs cholecalciferol (vitamin D3) 1,250 1,250 mcg PO WEEKLY #12 caps 05/26/24 mcg (50,000 unit) capsule ipratropium 0.5 mg-albuterol 3 mg 3 ml inhalation QID PRN shortness 05/26/24 (2.5 mg base)/3 mL nebulization of breath or wheezing #180 mL soln bumetanide 1 mg tablet See Rx Instructions .Route 06/13/24 .COMPLEX #180 tabs cyanocobalamin (vitamin B-12) See Rx Instructions .Route 06/13/24 1,000 mcg tablet .COMPLEX #30 tabs ropinirole 4 mg tablet See Rx Instructions .Route 06/13/24 .COMPLEX #30 tabs albuterol sulfate 90 mcg/actuation See Rx Instructions .Route 06/20/24 aerosol inhaler .COMPLEX #8.5 grams spironolactone 25 mg tablet 25 mg PO DAILY #90 tabs 07/06/24 metformin 500 mg tablet See Rx Instructions .Route 08/10/24 .COMPLEX #180 tabs trazodone 150 mg tablet See Rx Instructions .Route 08/10/24 .COMPLEX #60 tabs nitrofurantoin 100 mg PO BID 5 days #10 caps 08/23/24 monohydrate/macrocrystals 100 mg capsule blood sugar diagnostic (Accu-Chek #50 strips 09/06/24 Guide test strips) meloxicam 15 mg tablet 15 mg PO DAILY #30 tabs 09/08/24 ondansetron 4 mg disintegrating See Rx Instructions .Route 09/12/24 tablet .COMPLEX #30 tabs fluticasone fur. 100 mcg-umeclid See Rx Instructions .Route 09/16/24 62.5 mcg-vilant 25 mcg .COMPLEX #60 blisters inhalat.powder (Trelegy Ellipta) Allergies Allergy/AdvReac Type Severity Reaction Status Date / Time adhesive tape (ADHESIVE TAPE) Allergy Unknown Blister Verified 09/17/24 18:24 hydromorphone (From DILAUDID) Allergy Unknown Hypotension Verified 09/17/24 18:24 nickel (NICKEL) Allergy Unknown Blister Verified 09/17/24 18:24 PFSH PFS Disclaimer: The information contained in this section may have been updated after the patient was seen, as this information can be updated by other users. Medical History (Updated 09/23/24 @ 23:54 by Joey Nieto MD) Abdominal pain UTI (urinary tract infection) Hospital discharge follow-up Establishing care with new doctor, encounter for Restless leg Glaucoma Arthritis of both knees Urinary incontinence Unspecified asthma, uncomplicated Tear of meniscus of knee Pre-diabetes Diastolic CHF, acute on chronic Pulmonary hypertension Elevated left ventricular end-diastolic pressure (LVEDP) Asthma exacerbation Sleep apnea History of COVID-19 COPD (chronic obstructive pulmonary disease) Asthma Abscess of groin, right Acute exacerbation of chronic obstructive airways disease Left against medical advice Dependent on wheelchair Assistance needed for continence Incisional hernia Lower leg pain Knee pain Vaginal bleeding Perimenopausal Cellulitis Hypothyroidism Dizziness Chest pain Sinusitis Tobacco abuse counseling Tobacco abuse HONEY (obstructive sleep apnea) Ventral hernia Dyspnea Depression Pharyngitis due to Streptococcus species Epigastric pain Gastritis Strep throat HTN (hypertension) Hypothyroidism (acquired) TIA (transient ischemic attack) COPD exacerbation Paresthesias Shortness of breath Acute bronchitis Tobacco abuse COPD (chronic obstructive pulmonary disease) Infiltrate of lung present on chest x-ray Atelectasis of right lung Cough Upper respiratory infection Surgical History History of lateral meniscus repair of right knee H/O tubal ligation Hx of cholecystectomy H/O hernia repair History of colon resection Family History Mother Hypertension Diabetes Father Cancer Social History Smoking Status: Former smoker tobacco type: cigarettes packs per day: 1 years smoked: 38 smoking status stop date: 3 months ago quit status: has quit before second hand exposure: Yes alcohol intake: never substance use type: denies use current occupational status: unemployed Travel in the last 8 weeks: None household members: family and children housing: other lives independently: No marital status: legally number of children: 4 education level: other caffeine: Yes do you feel safe at home: Yes victim of physical abuse: No victim of emotional abuse: No victim of sexual abuse: No Have you lived/traveled outside [place] in past 30 days?: No Contact w/someone who lives/traveled outside [place] past 30 days?: No Exposure to someone with infectious disease in past 14 days?: No Do you have a fever (greater than 100.4 F or 38 C)?: No Have you tested positive for COVID-19: No Exposed to someone with COVID-19 in past 14 days?: No Do you have a sore throat?: No Do you have a cough?: No Do you have any weakness?: No Do you have any diarrhea?: No Are you experiencing any unusual bleeding?: No Do you have any muscle aches/pain?: No Do you have any abdominal pain?: No Are you experiencing loss of taste or smell?: No Other Medical History Have you received the Flu Vaccine for this season: No Have you received the Pneumonia Vaccine: No ROS Obtained: Yes All systems reviewed & no additional complaints except as documented Physical Exam General General appearance: alert Neck Neck exam: Present trachea midline Chest Chest inspection: Present normal inspection and symmetric chest wall rise Respiratory Respiratory exam: Present normal lung sounds bilaterally; Absent respiratory distress, wheezes, stridor, accessory muscle use or prolonged expiratory phase Cardiovascular Cardiovascular exam: Present regular rate, normal rhythm and other (Pulses equal and symmetric in upper and lower extremities) Extremities Exam Extremities exam: Absent edema Neurological Exam Neurological exam: Present alert, oriented X3 and CN II-XII intact Skin Skin exam: Present warm and dry; Absent cyanosis, diaphoresis or pallor HEART Score HEART Score HEART Score assessment performed?: Yes History (anamnesis): Moderately suspicious ECG: Non-specific disturbance Age: 45-65 years Risk factors: 3 or more risk factors Troponin: 1-3x normal limit HEART Score: 6 Critical Care Critical Care Time Critical Care Time: Yes (cardiac) Attestation: On 09/23/24, the high probability of a clinically significant, sudden or life threatening deterioration of the following system(s) required my full and direct attention, intervention and personal management. The time I documented below is in addition to time spent performing reported procedures but includes the following listed in this critical care notation. Total Time Total Critical Care Time: 45 Medical Decision Making Medical Records Medical records reviewed: Yes I reviewed the patient's medical records. Woodrow Inquiry Pt receiving controlled substance: No Woodrow was queried for this patient: No Vital Signs Vital Signs: 09/23/24 20:09 09/23/24 20:44 09/23/24 20:45 Temperature 97.9 F Temperature Source Oral Pulse Rate 86 84 Pulse Rate [Right Radial] 65 Respiratory Rate 18 Blood Pressure [Right Arm] 154/93 H Blood Pressure Mean [Right Arm] 113 Blood Pressure Source [Right Arm] Automatic Cuff Blood Pressure Position [Right Arm] Supine 02 Sat by Pulse Oximetry 94 L 99 98 Oxygen Delivery Method Room Air 09/23/24 21:00 09/23/24 21:15 09/23/24 21:30 Temperature Temperature Source Pulse Rate 85 52 L 78 Pulse Rate [Right Radial] Respiratory Rate Blood Pressure [Right Arm] Blood Pressure Mean [Right Arm] Blood Pressure Source [Right Arm] Blood Pressure Position [Right Arm] 02 Sat by Pulse Oximetry 97 97 99 Oxygen Delivery Method 09/23/24 21:45 09/23/24 22:00 09/23/24 22:15 Temperature Temperature Source Pulse Rate 82 58 L 79 Pulse Rate [Right Radial] Respiratory Rate Blood Pressure [Right Arm] Blood Pressure Mean [Right Arm] Blood Pressure Source [Right Arm] Blood Pressure Position [Right Arm] 02 Sat by Pulse Oximetry 99 98 97 Oxygen Delivery Method 09/23/24 22:30 09/23/24 22:45 09/23/24 23:00 Temperature Temperature Source Pulse Rate 58 L 78 80 Pulse Rate [Right Radial] Respiratory Rate Blood Pressure [Right Arm] Blood Pressure Mean [Right Arm] Blood Pressure Source [Right Arm] Blood Pressure Position [Right Arm] 02 Sat by Pulse Oximetry 98 96 96 Oxygen Delivery Method 09/23/24 23:15 Temperature Temperature Source Pulse Rate 46 L Pulse Rate [Right Radial] Respiratory Rate Blood Pressure [Right Arm] Blood Pressure Mean [Right Arm] Blood Pressure Source [Right Arm] Blood Pressure Position [Right Arm] 02 Sat by Pulse Oximetry 94 L Oxygen Delivery Method Lab Data Labs: Lab Results 09/23/24 20:22: VBG pH 7.37, VBG pCO2 54.3 H, VBG pO2 28.0, VBG HCO3 30.4 H, VBG Total CO2 32.1 H, VBG O2 Saturation 46.9 L, VBG Base Excess 5.1 H, VBG Lactic Acid 1.3 09/23/24 21:35: WBC 9.6, RBC 3.96 L, Hgb 10.7 L, Hct 35.3 L, MCV 89.1, MCH 27.0, MCHC 30.3 L, RDW 14.7, Plt Count 305, MPV 9.7, Neut % (Auto) 77.2, Lymph % (Auto) 14.1, [place] % (Auto) 5.7, Eos % (Auto) 1.9, Baso % (Auto) 0.5, Neut # (Auto) 7.4, Lymph # (Auto) 1.4, [place] # (Auto) 0.6, Eos # (Auto) 0.2, Baso # (Auto) 0.1, Sodium 136, Potassium 4.5, Chloride 99, Carbon Dioxide 36 H, Anion Gap 5.5, BUN 14, Creatinine 0.80, Estimated Creat Clear 65, Estimated GFR 74, Est GFR ( Amer) 90, Glucose 106 H, Calcium 9.1, Total Bilirubin 0.1 L, AST 24, ALT 20, Alkaline Phosphatase 90, Troponin I 0.04 H, NT-Pro-B Natriuret Pep 547 H, Total Protein 6.8, Albumin 3.6, Globulin 3.2, Albumin/Globulin Ratio 1.1 09/23/24 21:35 09/23/24 21:35 Response Orders (Tests/Meds): ED MEDICATIONS Discontinued Medications Generic Name Dose Route Start Last Admin Trade Name Kairne PRN Reason Stop Dose Admin Albuterol/Ipratropium 9 ml 09/23/24 21:17 09/23/24 23:08 Ipratropium/Albuterol 3 Ml Neb IH 09/23/24 21:18 9 ml ONCE ONE Administration Aspirin 325 mg 09/23/24 23:18 09/23/24 23:20 Aspirin 325mg Tablet PO 09/23/24 23:19 325 mg ONCE ONE Administration Furosemide 80 mg 09/23/24 21:17 09/23/24 21:30 Furosemide 40mg/4ml Vial IV 09/23/24 21:18 80 mg ONCE ONE Administration Methylprednisolone Sodium Succinate 125 mg 09/23/24 21:17 09/23/24 21:30 Methylprednisolone Sod Succ 125mg Vial IV 09/23/24 21:18 125 mg ONCE ONE Administration ORDERS Category Date Time Status CXR --portable [XR chest portable] Stat Exams 09/23/24 20:22 Completed CBC [Complete Blood Count Auto Diff] Stat Lab 09/23/24 21:35 Completed CMP [Comprehensive Metabolic Panel] Stat Lab 09/23/24 21:35 Completed NT Pro Brain Natriuretic Pep. Stat Lab 09/23/24 21:35 Completed Trop I [Troponin I] Stat Lab 09/23/24 21:35 Completed Troponin I Q3H Lab 09/23/24 23:30 Ordered Troponin I Q3H Lab 09/24/24 02:30 Ordered VBG [Venous Blood Gas] Stat RT 09/23/24 20:22 Completed MDM Narrative Medical Decision Narrative: 54-year-old female history of hyper hyper Diana, COPD, type 2 diabetes, morbid obesity, CHF, presenting with shortness of breath. Patient states that she got up and walked to her bathroom, started feeling short of breath. Sat down, got up and walked around again, felt progressively short of breath and states that she could not catch her breath, so called EMS. EMS arrived, brought patient to the emergency department. Patient states that she is having mild substernal chest pain that does not radiate. No diaphoresis, nausea, vomiting, cough, fevers, chills, or any other concern. History was obtained via conversation with patient and EMS. On arrival, patient hemodynamically stable, alert, oriented x4, appropriate, GCS 15, moving all extremities spontaneously, pupils equal and reactive to light. Full physical exam performed and significant for chronically ill-appearing female no acute distress. Nontachypneic, nontachycardic, 92 to 94% on 4 L nasal cannula. Lungs are diminished diffusely, lower extremity edema. Differential includes CHF exacerbation, COPD exacerbation, bronchitis, pneumonia, pneumothorax, PE, among others. Patient was given DuoNebs, Solu-Medrol, aspirin for symptomatic management and correction of underlying abnormalities. Patient placed on continuous cardiac monitoring and continuous pulse ox with initial blood pressure 154/93, heart rate 85, saturation 94% on 4 L nasal cannula. Independent interpretation of EKG shows sinus rhythm with right bundle branch block morphology. ST depressions and T wave inversions in V3 through V6 as well as 2, 3, aVF. No reciprocal elevations. CA 183, QRS 121, QTc 413. Workup independently interpreted and significant for nonactionable CBC or VBG. VBG with chronic respiratory acidosis. Metabolic compensation. Patient's chemistry nonactionable, but troponin elevated 0.04 and BNP elevated at 550. On independent interpretation of imaging, patient has cardiomegaly and pulmonary edema. See radiology read for full review of final results. Heart score 6. On reevaluation, patient states she is no longer having chest pain, no longer feeling as short of breath, but still feeling more short of breath than she typically does. Given EKG findings, elevated troponin, BNP, patient was given Lasix for diuresis. I contacted [facility] and [facility] request that I contact cardiology prior to admission given over the weekend and no inpatient consultation available other than interventional. I contacted residential sales associate on-call and he was agreeable to admission. Given patient presentation, workup, history, this most likely represents type II NSTEMI in the setting of CHF exacerbation. Because patient high risk for clinical decompensation, deemed appropriate for inpatient admission. Results were relayed to patient who voiced understanding and patient was agreeable to inpatient admission and management. Patient was admitted to the hospital for further definitive management. Inorganic Chemistry Professor disclaimer Much of this encounter note is an electronic public relations counselor spoken language to printed text. Electronic public relations counselor of the spoken language may permit errors. Although I have reviewed the note, some errors may still exist.
--- NOTE | 2024-09-23 23:01 | ECG_ITS ---
APPROVED REPORT Exam: Resting ECG HR:68 bpm ECG Measurements Heart Rate 68 AXES UT 183 P 71 QRSd 121 QRS -41 QT 395 T -34 QTc 413 Conclusion SINUS RHYTHM WITH SINUS ARRHYTHMIA LEFT AXIS DEVIATION [QRS AXIS < -30] RIGHT BUNDLE BRANCH BLOCK [120+ ms QRS DURATION, UPRIGHT V1, 40+ ms S IN I/aVL/V4/V5/V6] MODERATE T-WAVE ABNORMALITY, CONSIDER LATERAL ISCHEMIA [-0.1+ mV T-WAVE IN I/aVL/V5/V6] MODERATE T-WAVE ABNORMALITY, CONSIDER INFERIOR ISCHEMIA [-0.1+ mV T-WAVE IN II/aVF] ABNORMAL ECG UNCONFIRMED REPORT Electronically signed by : RISHI BAGLEY, 09/24/2024 05:43:48
[2024-09-23] MEDS: IPRATROPIUM/ALBUTEROL 3 ML NEB 9 ML IH (23:08)
[2024-09-23 23:09] LABS: VBG PCO2 54.3 mmol/L (35-51)
[2024-09-23] MEDS: ASPIRIN 325MG TABLET 325 MG PO (23:20)
[2024-09-24] VITALS (15 sets, daily range): BP systolic 106–142; BP diastolic 38–67; PULSE 50–93; RESP 16–25; TEMP 36.5–36.7; O2SAT 84–99; BMI 70.0
--- NOTE | 2024-09-24 00:15 | PC.NURSE ---
Report called to [facility] on [facility]. Waiting on floor to come to ER to get patient.
--- NOTE | 2024-09-24 00:32 | PC.NURSE ---
Pt to inpatient unit via stretcher
[2024-09-24 01:14] LABS: Troponin I 0.07 ng/ml (0.00-0.034)
[2024-09-24] MEDS: ROPINIROLE 4 MG (03:21)
[2024-09-24] MEDS: PATIENT'S OWN HOME MEDICATION (Trazodone 150 mg tablet) (03:22)
[2024-09-24 03:43] LABS: Troponin I 0.07 ng/ml (0.00-0.034)
[2024-09-24] MEDS: IPRATROPIUM/ALBUTEROL 3 ML NEB IH ×5 (03:52→22:57)
[2024-09-24] MEDS: LORazepam 2MG/ML VIAL 0.5 MG IV (03:56)
[2024-09-24] MEDS: BUMETANIDE 1MG/4ML VIAL 3 MG IV ×3 (04:06→20:31)
--- NOTE | 2024-09-24 04:31 | PC.NURSE ---
V/s, ox4, on 4LNC(2LNC baseline). Pt stated she normally wears a CPAP but that hers broke. Provider ordered, Respiratory put pt on CPAP. I&O's measured per yuliya, diuretics tolerated. Pt received ativan due to anxiety. Pt on fluid restriction and daily calorie intake of 1800. Plan of care ongoing.
--- NOTE | 2024-09-24 05:42 | P.HP_ITS ---
<Statement entered by Hernan Barros MD - 09/24/24 12:59> Rounded on patient after nurse practitioner. Personally examined and interviewed patient. Agree with exam findings and care plan as documented. Morning labs showed BUN 18, creatinine 0.8. Having negative fluid balance. Feeling better this morning after some diuretics overnight. Troponin stable with slight trend down from 0.07-0.04. Denies chest pain. Continuing Bumex 3 mg IV twice daily. Potassium 5.3, magnesium 1.7. Repeat CBC, CMP, magnesium ordered for the morning. Still on 4 L oxygen, states she wears 2 L continuous at home. History of Present Illness *Admission Date: 09/24/24 *Reason for visit:: Shortness of breath *History of present illness: A 54-year-old female with a history of anxiety, COPD, type 2 diabetes, morbid obesity (BMI 70), diastolic heart failure (last EF 50% in 2023), obstructive sleep apnea, and tobacco abuse presents to the emergency department with shortness of breath. She reports that this morning, after walking to her bathroom, she became short of breath. She sat down, then got up and walked again, experiencing progressively worsening dyspnea, stating she could not catch her breath, prompting her to call EMS. EMS transported her to the ED. She also reports mild substernal chest pain that does not radiate, without diaphoresis, nausea, vomiting, cough, fevers, or chills. She notes she often does not take her diuretic due to incontinence and difficulty ambulating. History was obtained via conversation with the patient and EMS. On arrival, the patient was hemodynamically stable, alert, oriented x4,. Initial vital signs showed blood pressure 154/93 mmHg, heart rate 85 bpm, and oxygen saturation 92-94% on 4 L nasal cannula. Physical exam revealed a chronically ill-appearing female in no acute distress, nontachypneic, nontachycardic, with diffusely diminished lung sounds and lower extremity edema. The patient was placed on continuous cardiac monitoring and pulse oximetry. An EKG showed sinus rhythm with right bundle branch block morphology, ST depressions, and T-wave inversions in V3-V6, II, III, and aVF, without reciprocal elevations (KS 183 ms, QRS 121 ms, QTc 413 ms). She received DuoNebs, Solu-Medrol, and aspirin for symptomatic management. Labs revealed troponin 0.04 ng/mL (elevated) repeat 0.07, BNP 547 pg/mL, and VBG with chronic respiratory acidosis (pH 7.37, pCO2 54.3 mmHg, HCO3 30.4 mmol/L); CBC and chemistry were otherwise nonactionable. Imaging showed cardiomegaly and pulmonary edema. HEART score was 6. She was given 80 mg IV Lasix for diuresis. On reevaluation, she reported resolution of chest pain and improved but persistent dyspnea compared to baseline. Hospital medicine was contacted, and per request, the on-call nutrition educator was consulted due to limited weekend inpatient services; the nutrition educator Dr. Wolfgang ugalde agreed to admission. Given her EKG findings, elevated troponin, BNP, and history, this most likely represents a type II NSTEMI in the setting of CHF exacerbation. The patient, deemed high risk for decompensation, understood and agreed to inpatient admission. [facility] Disclaimer: The information contained in this section may have been updated after the patient was seen, as this information can be updated by other users. Medical History (Updated 09/23/24 @ 23:54 by Joey Nieto MD) Abdominal pain UTI (urinary tract infection) Hospital discharge follow-up Establishing care with new doctor, encounter for Restless leg Glaucoma Arthritis of both knees Urinary incontinence Unspecified asthma, uncomplicated Tear of meniscus of knee Pre-diabetes Diastolic CHF, acute on chronic Pulmonary hypertension Elevated left ventricular end-diastolic pressure (LVEDP) Asthma exacerbation Sleep apnea History of COVID-19 COPD (chronic obstructive pulmonary disease) Asthma Abscess of groin, right Acute exacerbation of chronic obstructive airways disease Left against medical advice Dependent on wheelchair Assistance needed for continence Incisional hernia Lower leg pain Knee pain Vaginal bleeding Perimenopausal Cellulitis Hypothyroidism Dizziness Chest pain Sinusitis Tobacco abuse counseling Tobacco abuse HONEY (obstructive sleep apnea) Ventral hernia Dyspnea Depression Pharyngitis due to Streptococcus species Epigastric pain Gastritis Strep throat HTN (hypertension) Hypothyroidism (acquired) TIA (transient ischemic attack) COPD exacerbation Paresthesias Shortness of breath Acute bronchitis Tobacco abuse COPD (chronic obstructive pulmonary disease) Infiltrate of lung present on chest x-ray Atelectasis of right lung Cough Upper respiratory infection Surgical History History of lateral meniscus repair of right knee H/O tubal ligation Hx of cholecystectomy H/O hernia repair History of colon resection Family History Mother Hypertension Diabetes Father Cancer Social History Smoking Status: Former smoker tobacco type: cigarettes packs per day: 1 years smoked: 38 smoking status stop date: 3 months ago quit status: has quit before second hand exposure: Yes alcohol intake: never substance use type: denies use current occupational status: unemployed Travel in the last 8 weeks: None household members: family and children housing: other lives independently: No marital status: legally number of children: 4 education level: other caffeine: Yes do you feel safe at home: Yes victim of physical abuse: No victim of emotional abuse: No victim of sexual abuse: No Have you lived/traveled outside [place] in past 30 days?: No Contact w/someone who lives/traveled outside [place] past 30 days?: No Exposure to someone with infectious disease in past 14 days?: No Do you have a fever (greater than 100.4 F or 38 C)?: No Have you tested positive for COVID-19: No Exposed to someone with COVID-19 in past 14 days?: No Do you have a sore throat?: No Do you have a cough?: No Do you have any weakness?: No Do you have any diarrhea?: No Are you experiencing any unusual bleeding?: No Do you have any muscle aches/pain?: No Do you have any abdominal pain?: No Are you experiencing loss of taste or smell?: No Other Medical History Have you received the Flu Vaccine for this season: No Have you received the Pneumonia Vaccine: No Review of Systems Review of Systems Review of systems (narrative): 13 point review of systems negative except as listed in HPI Meds Home Medications and Allergies Home Medications ?Medication ?Instructions ?Recorded ?Confirmed ?Type calcium carbonate (Calcium 600) 600 mg PO DAILY 10/03/23 09/23/24 History lancets (Accu-Chek Softclix #200 ea 05/16/24 09/24/24 Rx Lancets) blood-glucose meter (Accu-Chek #1 ea 05/26/24 09/24/24 Rx Guide Glucose Meter) bupropion HCl 200 mg tablet,12 hr 400 mg (2 x 200 mg) PO DAILY #180 05/26/24 09/24/24 Rx sustained-release tabs cholecalciferol (vitamin D3) 1,250 1,250 mcg PO WEEKLY #12 caps 05/26/24 09/24/24 Rx mcg (50,000 unit) capsule spironolactone 25 mg tablet 25 mg PO DAILY #90 tabs 07/06/24 09/24/24 Rx levothyroxine 150 mcg tablet 300 mcg PO DAILY 08/16/24 09/24/24 History blood sugar diagnostic (Accu-Chek #50 strips 09/06/24 09/24/24 Rx Guide test strips) meloxicam 15 mg tablet 15 mg PO DAILY #30 tabs 09/08/24 09/24/24 Rx albuterol sulfate 90 mcg/actuation 2 puff inhalation Q4HP PRN SOA 09/24/24 09/24/24 History aerosol inhaler bumetanide 1 mg tablet 3 mg PO DAILY 09/24/24 09/24/24 History cyanocobalamin (vitamin B-12) 1,000 mcg PO DAILY 09/24/24 09/24/24 History 1,000 mcg tablet fluticasone fur. 100 mcg-umeclid 1 inh inhalation DAILY 09/24/24 09/24/24 History 62.5 mcg-vilant 25 mcg inhalat.powder (Trelegy Ellipta) ipratropium 0.5 mg-albuterol 3 mg 3 ml inhalation QIDP PRN shortness 09/24/24 09/24/24 History (2.5 mg base)/3 mL nebulization of breath or wheezing soln lisinopril 40 mg tablet 40 mg PO DAILY 09/24/24 09/24/24 History metformin 500 mg tablet 500 mg PO BID 09/24/24 09/24/24 History ondansetron 4 mg disintegrating 4 mg PO Q8HP PRN NAUSEA/VOMITING 09/24/24 09/24/24 History tablet ropinirole 4 mg tablet 4 mg PO HS 09/24/24 09/24/24 History trazodone 150 mg tablet 300 mg PO HS 09/24/24 09/24/24 History New Prescriptions to Start Prescriptions: Allergies Allergy/AdvReac Type Severity Reaction Status Date / Time adhesive tape (ADHESIVE TAPE) Allergy Unknown Blister Verified 09/17/24 18:24 hydromorphone (From DILAUDID) Allergy Unknown Hypotension Verified 09/17/24 18:24 nickel (NICKEL) Allergy Unknown Blister Verified 09/17/24 18:24 Exam Data for Last 24 hours Vital signs and Labs for Last 24 Hours: Temp Pulse Resp BP Pulse Ox O2 Del Method O2 Flow Rate 98.1 F 80 20 124/38 L 96 Nasal Cannula, CPAP 4 09/24/24 01:26 09/24/24 04:10 09/24/24 01:26 09/24/24 01:26 09/24/24 04:10 09/24/24 04:29 09/24/24 04:29 FiO2 40 09/24/24 04:10 Laboratory Results - last 24 hr 09/23/24 20:22: VBG pH 7.37, VBG pCO2 54.3 H, VBG pO2 28.0, VBG HCO3 30.4 H, VBG Total CO2 32.1 H, VBG O2 Saturation 46.9 L, VBG Base Excess 5.1 H, VBG Lactic Acid 1.3 09/23/24 21:35: WBC 9.6, RBC 3.96 L, Hgb 10.7 L, Hct 35.3 L, MCV 89.1, MCH 27.0, MCHC 30.3 L, RDW 14.7, Plt Count 305, MPV 9.7, Neut % (Auto) 77.2, Lymph % (Auto) 14.1, Cherry % (Auto) 5.7, Eos % (Auto) 1.9, Baso % (Auto) 0.5, Neut # (Auto) 7.4, Lymph # (Auto) 1.4, Cherry # (Auto) 0.6, Eos # (Auto) 0.2, Baso # (Auto) 0.1, Sodium 136, Potassium 4.5, Chloride 99, Carbon Dioxide 36 H, Anion Gap 5.5, BUN 14, Creatinine 0.80, Estimated Creat Clear 65, Estimated GFR 74, Est GFR ( Amer) 90, Glucose 106 H, Calcium 9.1, Total Bilirubin 0.1 L, AST 24, ALT 20, Alkaline Phosphatase 90, Troponin I 0.04 H, NT-Pro-B Natriuret Pep 547 H, Total Protein 6.8, Albumin 3.6, Globulin 3.2, Albumin/Globulin Ratio 1.1 09/24/24 00:45: Troponin I 0.07 H 09/24/24 02:55: Troponin I 0.07 H I & O for Last 24 hours: Intake & Output 09/21/24 09/22/24 09/23/24 09/24/24 23:59 23:59 23:59 23:59 Weight 184.612 kg 179.282 kg Constitutional Constitutional: moderate distress, morbidly obese and chronically ill appearing *Routine HEENT Exam Head: Present normocephalic and atraumatic Eye: Present PERRL and normal accommodation ENT: Present mucous membranes moist *Routine Respiratory Exam Respiratory: Present accessory muscle use, decreased breath sounds, crackles and diminished air movement *Routine Cardiovascular Exam Cardiovascular: Present RRR *Routine Abdominal Exam Abdominal: Present soft Comments: Limited by body habitus *Routine Rectal Exam Rectal:: deferred *Routine Genitalia Exam Genitalia:: deferred *Routine Extremities Exam Extremities: Present edema, pulses intact and normal capillary refill Assessment and Plan *Assessment and plan (1) Non-ST elevation RI (NSTEMI): Status: Acute Category: Medical Code(s): I21.4 - Non-ST elevation (NSTEMI) myocardial infarction (2) CHF exacerbation: Status: Acute Category: Medical Code(s): I50.9 - Heart failure, unspecified (3) Chest pain: Status: Acute Qualifiers: Chest pain type: unspecified Qualified Code(s): R07.9 - Chest pain, unspecified Category: Medical Code(s): R07.9 - Chest pain, unspecified (4) Type 2 diabetes mellitus: Status: Acute Category: Medical Code(s): E11.9 - Type 2 diabetes mellitus without complications (5) Morbid obesity: Status: Acute Category: Medical Code(s): E66.01 - Morbid (severe) obesity due to excess calories (6) (HFpEF) heart failure with preserved ejection fraction: Status: Acute Qualifiers: Heart failure chronicity: unspecified Qualified Code(s): I50.30 - Unspecified diastolic (congestive) heart failure Category: Medical Code(s): I50.30 - Unspecified diastolic (congestive) heart failure (7) Shortness of breath: Status: Acute Category: Medical Code(s): R06.02 - Shortness of breath (8) Acute exacerbation of chronic obstructive pulmonary disease: Status: Acute Category: Medical Code(s): J44.1 - Chronic obstructive pulmonary disease with (acute) exacerbation (9) HONEY (obstructive sleep apnea): Status: Acute Category: Medical Code(s): G47.33 - Obstructive sleep apnea (adult) (pediatric) (10) Hypothyroidism (acquired): Status: Acute Category: Medical Code(s): E03.9 - Hypothyroidism, unspecified Plan * Type II Non-ST Elevation Myocardial Infarction (NSTEMI) in Setting of CHF Exacerbation * SOB after exertion, mild substernal chest pain (resolved), BNP 547 pg/mL, pulmonary edema on imaging, troponin 0.04 ng/mL rising to 0.07 ng/mL; EKG with RBBB, ST depressions/T-wave inversions V3-V6, II, III, aVF, HEART score 6; history of diastolic CHF (EF 50% 2023), noncompliant with diuretics. * Dyspnea returned hours after 80 mg IV Lasix; normally takes bumetanide 3 mg BID (equivalent to ~240 mg Lasix/day). * Continue aspirin 81 mg PO daily; start heparin drip (5000 U bolus, 1000 U/hr) for NSTEMI, titrate to PTT 60-80 sec. * Switch to IV bumetanide 3 mg q12h ( target urine output 200-300 mL/hr) * Supplemental O2, titrate 4-6 L/min NC to SpO2 >92%; continuous pulse oximetry. * Echo to reassess EF; cardiology consult for NSTEMI/CHF, possible cath if troponin rises further. * Repeat troponin in 6h; EKG q12h for ischemic changes; monitor chest pain, dyspnea q4h. * continue metoprolol succinate once stable. * Chronic Diastolic Heart Failure, Exacerbated * LE edema, pulmonary edema, BNP 547 pg/mL, dyspnea worsened hours after Lasix; skips bumetanide 3 mg BID due to incontinence/ambulation; BMI 70 requires higher dosing. * Bumetanide as above; add spironolactone 25 mg PO daily (home dose) if BP stable post-diuresis. * BMP q12h x 48h, then daily; supplement K+ if <4.0 mmol/L, Mg2+ if <2.0 mg/dL; daily weights, strict I/Os with Hernández if needed. * Monitor lung sounds; consider bumetanide drip (e.g., 0.5-1 mg/hr) if bolus fails. * COPD, Stable * History of COPD, diminished lung sounds, no cough/wheeze; SOB likely CHF- driven; VBG with chronic respiratory acidosis (pCO2 54.3 mmHg, HCO3 30.4 mmol/L). * Continue DuoNeb q6h PRN; hold Solu-Medrol unless COPD flare confirmed (e.g., wheezing). * Avoid over-oxygenation (SpO2 92-94%); VBG q12h if respiratory status worsens. * Type 2 Diabetes Mellitus, Controlled * Glucose 106 mg/dL, on metformin 500 mg (dose unclear); no acute derangement. * sliding scale insulin if glucose >180 mg/dL; A1c pending. * Diabetic diet; monitor glucose ACHS * Obstructive Sleep Apnea (HONEY) and Tobacco Abuse * HONEY, BMI 70, tobacco use; chronic respiratory acidosis may reflect hypoventilation; dyspnea exacerbated by CHF. * Encourage CPAP use, smoking cessation counseling, nicotine patch offered. * Pulmonology consult if HONEY contributes to hypoxia post-HF treatment. * Anxiety, Stable * History of anxiety, on bupropion 400 mg daily (SR). * Continue bupropion; gave 0.5 mg IV Ativan for acute anxiety, effective * Morbid Obesity (BMI 70) * Contributes to CHF, HONEY, mobility issues; limits diuretic compliance; requires higher diuretic doses. * PT/OT for mobility support; nutrition consult for weight management; bariatric referral consideration. * Disposition * 54-year-old female with CHF, COPD, DM, admitted for type II NSTEMI/CHF exacerbation; high risk for decompensation. * Heparin 5000 U SQ q8h; pantoprazole 40 mg PO daily * Daily CBC, BMP; troponin q6h x 1 more. * Cardiology/hospitalist follow-up; PT/OT for ambulation. * Admit to telemetry
[2024-09-24 07:05] LABS: POC Glucose,Bedside 222 (70-110)
[2024-09-24] MEDS: humaLOG 100 UNITS/ML 10ML VIAL (SSI) SUBCUT ×4 (07:05→20:30)
[2024-09-24 08:04] LABS: Basophils % 0.3 % (0.1-2.0); Hematocrit 36.5 % (37.0-47.0); Hemoglobin 11.3 g/dL (12.2-16.2); Lymphocytes # 0.7 K/mm3 (0.7-4.5); Lymphocytes % 10.6 % (10-50); Mean Corpuscular Volume 87.3 fl (81-99); Mean Platelet Volume 10.4 fl (7.4-10.4); Monocytes % 0.7 % (1.7-9.3); Neutrophils # 5.4 K/mm3 (1.8-7.8); Neutrophils % 87.6 % (37.0-80.0); Platelet Count 313 K/mm3 (142-424); Red Blood Count 4.18 M/mm3 (4.20-5.40); Red Cell Distribution Width 14.8 % (11.5-17.5); White Blood Count 6.1 K/mm3 (4.8-10.8)
[2024-09-24 08:16] LABS: Chloride 98 mmol/L (98-107); Potassium 5.3 mmoL/L (3.5-5.1); Sodium 135 mmol/L (136-145)
[2024-09-24 08:18] LABS: Blood Urea Nitrogen 18 mg/dl (7-17); Creatinine Clearance Estimated 62 mL/min (50-200); Estimated Glomerular Filt Rate 74 ml/min (>60); GFR (African American) 90 ML/MIN (>60)
[2024-09-24 08:19] LABS: Anion Gap 11.3 mEq/L (5-15); Calcium 9.1 mg/dl (8.4-10.2); Carbon Dioxide 31 mmol/L (22.0-30.0); Glucose 254 mg/dl (74-100); Magnesium 1.7 mg/dl (1.6-2.3)
[2024-09-24 08:29] LABS: Troponin I 0.04 ng/ml (0.00-0.034)
[2024-09-24 09:11] LABS: Hemoglobin A1C 6.3 % (4.0-6.0)
[2024-09-24] MEDS: FLUTICASONE/UMECLIDIN/VILANTER 100/62.5/25MCG INHALER 1 PUFF IH (09:29)
[2024-09-24] MEDS: LEVOTHYROXINE 150MCG (0.15MG)TAB 300 MCG PO (09:47)
[2024-09-24] MEDS: HEPARIN SODIUM 5,000 UNIT/ML VIAL 5000 UNIT SUBCUT ×3 (09:47→20:28)
[2024-09-24] MEDS: CALCIUM CARBONATE 500MG CHEWTAB 500 MG PO (09:47)
[2024-09-24] MEDS: SPIRONOLACTONE 25MG TABLET 25 MG PO (09:47)
[2024-09-24 11:06] LABS: POC Glucose,Bedside 199 (70-110)
--- NOTE | 2024-09-24 13:13 | [facility].PTEV ---
Physical Therapy Evaluation Rehab PT IP Evaluation Start: 09/24/24 06:05 Freq: ONCE Status: Active Protocol: Document 09/24/24 13:08 YESSICA (Rec: 09/24/24 13:13 YESSICA [id number]) Subjective/History History History 54-year-old female with a history of anxiety, COPD, type 2 diabetes, morbid obesity ( BMI 70), diastolic heart failure (last EF 50% in 2023), obstructive sleep apnea, and tobacco abuse presents to the emergency department with shortness of breath. She reports that this morning, after walking to her bathroom, she became short of breath. She sat down, then got up and walked again, experiencing progressively worsening dyspnea, stating she could not catch her breath, prompting her to call EMS. Pt dx'd with NSTEMI after admission. She reports she lives with family who provide assistance for all of her mobility and ADLs at baseline. She uses a w/c for all mobility and is able to transfer via stand/pivot with assist at baseline only. Ramp to enter the home. Subjective Subjective Pt c/o pain in B knees, but this is baseline. Otherwise no c/o. [facility] How much help from another person do you currently need... Turning from your back to your side A lot while in a flat bed without using bedrails? Moving from lying on back to sitting on A lot the side of a flat bed without using bedrails? Moving to and from a bed to a chair ( A lot including a wheelchair)? Standing up from a chair using your arms A lot ? (e.g., wheelchair, bedside chair) Walking in hospital room? A lot Climbing 3-5 steps with a railing? Total Mobility Score 11 Mobility Level [facility] Mobility Calculator Mobility 4 Move to chair/ commode Rehab PT IP Eval Objective Appearance Patient Behavior Appropriate Patient Orientation Person,Place,Time Difficulty following instructions none Speech Pattern Clear Ambulation Patient Able to Ambulate No Balance Ability to Arise Able, uses arms to help Sitting Balance Steady, safe Standing Balance Unsteady Dynamic Sitting Balance Ability Good Dynamic Standing Balance Ability Poor Transfers Bed Transfer Ability Minimal x 1 (25% assist) Chair Transfer Ability Minimal x 1 (25% assist) Sit to Stand Bed Transfer Ability Minimal x 1 (25% assist) Sit to Stand Chair Transfer Ability Minimal x 1 (25% assist) Rehab PT IP prob,goals,plan Problems Date of Evaluation: 09/24/24 Discharge Plan PT Discharge Plan Pt currently appears to be at her baseline for all mobility which is only able to transfer to bedside chair with assist. Currently no needs for acute care therapy services. Eval Complexity Eval Charge Codes 83879 - High Complexity PHYSICIAN CERTIFICATION: I certify the specified therapy services for Stacey George are required, authorized, and reviewed every 30 days.
--- NOTE | 2024-09-24 16:24 | PC.NURSE ---
Aox 4, up with assist times 2 to wheelchair, 02-4L NC, 18g L AC SL, fsbg achs, PT AND OT following, 1800 ADA diet with 1,500 fluid restriction, purewick in place.
[2024-09-24 17:06] LABS: POC Glucose,Bedside 167 (70-110)
[2024-09-24] MEDS: TRAZODONE 50MG TABLET 150 MG PO (20:28)
[2024-09-24] MEDS: ROPINIROLE 1MG TABLET 4 MG PO (20:30)
[2024-09-24 20:55] LABS: POC Glucose,Bedside 205 (70-110)
[2024-09-25] VITALS (10 sets, daily range): BP systolic 122–145; BP diastolic 61–78; PULSE 63–90; RESP 16–18; TEMP 36.3–36.7; O2SAT 94–99; BMI 75.2
[2024-09-25 06:11] LABS: POC Glucose,Bedside 149 (70-110)
[2024-09-25] MEDS: LEVOTHYROXINE 150MCG (0.15MG)TAB 300 MCG PO (06:27)
--- NOTE | 2024-09-25 06:41 | PC.NURSE ---
Pt is alert and oriented x4 and currently tolerating 4L well @ 98%. Pt did wear her C-pap aprox 2 hours this shift. Pt has had multiple snacks and drinks despite education of diet and restrictions. Pt has had no acute changes this shift.
[2024-09-25] MEDS: FLUTICASONE/UMECLIDIN/VILANTER 100/62.5/25MCG INHALER 1 PUFF IH (06:53)
[2024-09-25] MEDS: IPRATROPIUM/ALBUTEROL 3 ML NEB IH ×4 (06:53→23:14)
[2024-09-25] MEDS: SPIRONOLACTONE 25MG TABLET 25 MG PO (08:14)
[2024-09-25] MEDS: CALCIUM CARBONATE 500MG CHEWTAB 500 MG PO (08:14)
[2024-09-25] MEDS: HEPARIN SODIUM 5,000 UNIT/ML VIAL 5000 UNIT SUBCUT ×3 (08:14→20:34)
[2024-09-25] MEDS: BUMETANIDE 1MG/4ML VIAL 3 MG IV ×2 (08:14→20:34)
[2024-09-25 09:10] LABS: Basophils # 0.1 K/mm3 (0-0.2); Basophils % 0.6 % (0.1-2.0); Eosinophils # 0.1 K/mm3 (0.0-0.4); Eosinophils % 1.1 % (0.1-12.0); Hematocrit 36.5 % (37.0-47.0); Hemoglobin 11.1 g/dL (12.2-16.2); Lymphocytes % 24.6 % (10-50); Mean Corpuscular HGB Conc 30.4 g/dL (31.8-35.4); Mean Corpuscular Hemoglobin 26.8 pg (27.0-31.2); Mean Corpuscular Volume 88.2 fl (81-99); Mean Platelet Volume 10.4 fl (7.4-10.4); Monocytes # 0.5 K/mm3 (0.1-1.0); Neutrophils # 5.3 K/mm3 (1.8-7.8); Neutrophils % 67.1 % (37.0-80.0); Platelet Count 306 K/mm3 (142-424); Red Blood Count 4.14 M/mm3 (4.20-5.40)
[2024-09-25 09:34] LABS: Anion Gap 7.3 mEq/L (5-15); Blood Urea Nitrogen 26 mg/dl (7-17); Calcium 9.2 mg/dl (8.4-10.2); Carbon Dioxide 36 mmol/L (22.0-30.0); Chloride 97 mmol/L (98-107); Creatinine Clearance Estimated 55 mL/min (50-200); Estimated Glomerular Filt Rate 65 ml/min (>60); GFR (African American) 78 ML/MIN (>60); Glucose 200 mg/dl (74-100); Potassium 4.3 mmoL/L (3.5-5.1); Sodium 136 mmol/L (136-145)
--- NOTE | 2024-09-25 10:21 | EXP.ACUTE.PN ---
Subjective *Date: 09/25/24 *Time: 10:52 Interval history: Patient slept better. Still no bowel movement. Weaned to 2 L nasal cannula oxygen this morning on rounds. Will 4 L overnight. Wearing CPAP overnight as well. Baseline 2 L oxygen at home. Denies chest pain. Afebrile. Medical Exam Vital signs and Labs for Last 24 Hours: Vital Signs Temp Pulse Pulse Resp BP Pulse Ox O2 Del Method 09/25/24 09:00 Nasal Cannula 09/25/24 08:00 Nasal Cannula 09/25/24 08:00 98.1 F 81 16 128/65 96 Nasal Cannula 09/25/24 06:53 63 09/25/24 06:53 68 09/25/24 06:53 99 Nasal Cannula 09/25/24 06:39 Nasal Cannula 09/25/24 05:00 Nasal Cannula 09/25/24 04:00 80 09/25/24 04:00 98.1 F 78 18 145/78 H 98 Nasal Cannula 09/25/24 03:00 Nasal Cannula 09/25/24 01:00 Nasal Cannula 09/25/24 00:00 98 Nasal Cannula 09/25/24 00:00 97.4 F L 67 18 122/61 94 L Nasal Cannula 09/25/24 00:00 80 09/24/24 23:14 91 H 09/24/24 23:14 90 09/24/24 23:00 CPAP 09/24/24 21:00 Nasal Cannula 09/24/24 20:00 Nasal Cannula 09/24/24 20:00 97.7 F 78 16 106/62 L 99 Room Air, Nasal Cannula 09/24/24 20:00 70 09/24/24 19:11 Nasal Cannula 09/24/24 19:10 90 09/24/24 19:09 92 H 09/24/24 17:43 Nasal Cannula 09/24/24 16:18 Nasal Cannula 09/24/24 16:00 55 L 09/24/24 15:41 97.9 F 60 17 137/63 98 Nasal Cannula 09/24/24 14:42 Nasal Cannula 09/24/24 12:49 Nasal Cannula 09/24/24 12:00 70 09/24/24 11:55 93 H 09/24/24 11:55 91 H 09/24/24 11:55 97 Nasal Cannula 09/24/24 10:22 Nasal Cannula O2 Flow Rate 09/25/24 09:00 2 09/25/24 08:00 2 09/25/24 08:00 4 09/25/24 06:53 09/25/24 06:53 09/25/24 06:53 4 09/25/24 06:39 4 09/25/24 05:00 4 09/25/24 04:00 09/25/24 04:00 4 09/25/24 03:00 4 09/25/24 01:00 4 09/25/24 00:00 4 09/25/24 00:00 4 09/25/24 00:00 09/24/24 23:14 09/24/24 23:14 09/24/24 23:00 09/24/24 21:00 4 09/24/24 20:00 4 09/24/24 20:00 4 09/24/24 20:00 09/24/24 19:11 4 09/24/24 19:10 09/24/24 19:09 09/24/24 17:43 4 09/24/24 16:18 4 09/24/24 16:00 09/24/24 15:41 4 09/24/24 14:42 4 09/24/24 12:49 4 09/24/24 12:00 09/24/24 11:55 09/24/24 11:55 09/24/24 11:55 4 09/24/24 10:22 4 Intake and Output 09/24/24 09/25/24 09/25/24 23:59 08:59 15:59 Intake Total 440 / 1750 480 / 480 Output Total 2150 / 3850 400 / 640 240 / 640 Balance -1710 / -2100 80 / -160 -240 / -160 Intake: Intake, Oral Amount 440 / 1750 480 / 480 Output: Output, Urine Amount 2150 / 3850 400 / 640 240 / 640 Other: Number of Unmeasured Voids 0 0 Weight 192.414 kg Patient Weight 09/26/24 00:59 Weight 192.414 kg Laboratory Results - last 24 hr 09/24/24 10:57: POC Glucose 199 H 09/24/24 16:59: POC Glucose 167 H 09/24/24 20:29: POC Glucose 205 H 09/25/24 05:56: POC Glucose 149 H 09/25/24 08:42: WBC 8.0 D, RBC 4.14 L, Hgb 11.1 L, Hct 36.5 L, MCV 88.2, MCH 26.8 L, MCHC 30.4 L, RDW 15.0, Plt Count 306, MPV 10.4, Neut % (Auto) 67.1, Lymph % (Auto) 24.6, [place] % (Auto) 6.0, Eos % (Auto) 1.1, Baso % (Auto) 0.6, Neut # (Auto) 5.3, Lymph # (Auto) 2.0, [place] # (Auto) 0.5, Eos # (Auto) 0.1, Baso # (Auto) 0.1, Sodium 136, Potassium 4.3, Chloride 97 L, Carbon Dioxide 36 H, Anion Gap 7.3, BUN 26 H D, Creatinine 0.90, Estimated Creat Clear 55, Estimated GFR 65, Est GFR ( Amer) 78, Glucose 200 H, Calcium 9.2 I & O for Labs for Last 24 Hours: Intake & Output 09/22/24 09/23/24 09/24/24 09/26/24 23:59 23:59 23:59 00:59 Intake Total 1270 / 1750 480 / 480 Output Total 3850 / 3850 640 / 640 Balance -2580 / -2100 -160 / -160 Weight 184.612 kg 179.282 kg 192.414 kg Constitutional: Present no acute distress, morbidly obese, chronically ill appearing and cooperative Head: Present atraumatic and normocephalic ENT: Present normal exam Respiratory: Present distant breath sounds and normal respiratory effort; Absent respiratory distress, rhonchi, wheezes or crackles Cardiac: Present Reg Rate and Rhythm GI: Present soft, distention and normal bowel sounds; Absent tenderness Comments:: Large abdominal hernia Extremities: Present normal inspection, full ROM and edema (Trace in lower extremity) Skin: Present intact; Absent erythema Neuro: Present Grossly Intact, alert, awake, oriented x 3 and moves all extremities Assessment and Plan *Assessment and plan (1) Non-ST elevation MA (NSTEMI): Status: Acute Category: Medical Code(s): I21.4 - Non-ST elevation (NSTEMI) myocardial infarction (2) CHF exacerbation: Status: Acute Category: Medical Code(s): I50.9 - Heart failure, unspecified (3) Chest pain: Status: Acute Qualifiers: Chest pain type: unspecified Qualified Code(s): R07.9 - Chest pain, unspecified Category: Medical Code(s): R07.9 - Chest pain, unspecified (4) Type 2 diabetes mellitus: Status: Acute Category: Medical Code(s): E11.9 - Type 2 diabetes mellitus without complications (5) Morbid obesity: Status: Acute Category: Medical Code(s): E66.01 - Morbid (severe) obesity due to excess calories (6) (HFpEF) heart failure with preserved ejection fraction: Status: Acute Qualifiers: Heart failure chronicity: unspecified Qualified Code(s): I50.30 - Unspecified diastolic (congestive) heart failure Category: Medical Code(s): I50.30 - Unspecified diastolic (congestive) heart failure (7) Shortness of breath: Status: Acute Category: Medical Code(s): R06.02 - Shortness of breath (8) Acute exacerbation of chronic obstructive pulmonary disease: Status: Acute Category: Medical Code(s): J44.1 - Chronic obstructive pulmonary disease with (acute) exacerbation (9) HONEY (obstructive sleep apnea): Status: Acute Category: Medical Code(s): G47.33 - Obstructive sleep apnea (adult) (pediatric) (10) Hypothyroidism (acquired): Status: Acute Category: Medical Code(s): E03.9 - Hypothyroidism, unspecified Plan Morbidly obese 54-year-old female with multiple comorbidities who presents with shortness of breath. Concern for NSTEMI and CHF exacerbation. Admitted to medicine after discussion with cardiology due to concern about potential for interventions on patient given her size limiting ability to do further imaging or access equipment. Showing some improvement with diuretics. Cardiology to see her in the morning. Echo ordered for the morning. Problems addressed as follows: Type II Non-ST Elevation Myocardial Infarction (NSTEMI) in Setting of acute on chronic HFpEF - SOB after exertion, mild substernal chest pain (resolved), BNP 547 pg/mL, pulmonary edema on imaging, troponin 0.04 ng/mL rising to 0.07 ng/mL; EKG with RBBB, ST depressions/T-wave inversions V3-V6, II, III, aVF, HEART score 6; history of diastolic CHF (EF 50% 2024), noncompliant with diuretics. -Cardiology consulted, appreciate their recommendations and assistance in care. Echo ordered for the morning. -Diuresing well, negative at least 2-1/2 L since admission. Showing some improvement with breathing. - Continue aspirin 81 mg PO daily -Serial troponins trended down. Repeat troponin ordered for the morning. Kidney function normal with BUN 26, creatinine 0.9. Monitoring closely with aggressive diuresis. Potassium 4.3. - repeat CBC, CMP, mag ordered daily - holding lisinopril due to normotensive state - spironolactone 25mg daily COPD, Stable - History of COPD, diminished lung sounds, no cough/wheeze; SOB likely CHF-driven; VBG with chronic respiratory acidosis (pCO2 54.3 mmHg, HCO3 30.4 mmol/L). -Wears 2 L oxygen at home at baseline. Continue for goal sats greater 90%. Currently wearing 4 L at night with CPAP and 2 L during the day. Continue DuoNeb every 6 hours as needed. -Continue Trelegy 100 inhaler per home regimen Type 2 Diabetes Mellitus, Controlled -A1c 6.3. Appears to be well-controlled. Morning glucose 200. Continue sliding scale insulin with fingersticks ACHS. Continue metformin 500 mg twice daily Obstructive Sleep Apnea (HONEY) and Tobacco Abuse - HONEY, BMI 70, tobacco use; chronic respiratory acidosis may reflect hypoventilation; dyspnea exacerbated by CHF. -CPAP nightly per home regimen. Oxygen overnight at 4 L. Weaned to 2 L during the day which is her baseline. Anxiety, Stable - History of anxiety, on bupropion 400 mg daily (SR). - Continue bupropion; gave 0.5 mg IV Ativan for acute anxiety Hypothyroid: continue levothyroxine 300mcg daily Morbid Obesity (BMI 70): Contributes to CHF, HONEY, mobility issues; limits diuretic compliance; requires higher diuretic doses. Complicates all aspects of her care. PT and OT consulted for mobility support. Patient at baseline. Full code Diabetic diet with fluid restriction Heparin subcu 5000 units 3 times daily
[2024-09-25] MEDS: ASPIRIN EC 81MG TABLET 81 MG PO (12:39)
[2024-09-25] MEDS: OXYBUTYNIN 5MG TAB 5 MG PO ×2 (12:39→20:34)
[2024-09-25] MEDS: humaLOG 100 UNITS/ML 10ML VIAL (SSI) SUBCUT (12:45)
[2024-09-25 12:55] LABS: POC Glucose,Bedside 160 (70-110)
[2024-09-25 17:04] LABS: POC Glucose,Bedside 107 (70-110)
[2024-09-25] MEDS: MINERAL OIL ENEMA 133ML 133 ML RC (17:32)
--- NOTE | 2024-09-25 18:05 | PC.NURSE ---
AOX4, TOLERATING 2LNC FOR O2 SUPPORT FOR MOST OF THE DAY TODAY. MINERAL OIL ENEMA ADMIN THIS AFTERNOON AND PT HAD A LARGE FORMED BM.
[2024-09-25] MEDS: ROPINIROLE 1MG TABLET 4 MG PO (20:34)
[2024-09-25] MEDS: METFORMIN 500MG TABLET 500 MG PO (20:34)
[2024-09-25] MEDS: TRAZODONE 50MG TABLET 150 MG PO (20:34)
[2024-09-25 21:46] LABS: POC Glucose,Bedside 141 (70-110)
[2024-09-26] VITALS (7 sets, daily range): BP systolic 126–139; BP diastolic 62–81; PULSE 74–103; RESP 17–18; TEMP 36.4–36.7; O2SAT 95–96; BMI 72.6
--- NOTE | 2024-09-26 04:13 | PC.NURSE ---
Patient is alert and oriented x4. She was observed to be awake for the majority of the night (watching TV or using her personal phone). Patient has been maintaining a fluid restriction diet with adequate, frequent urine output; urine output has been measured and documented accordingly. Coffee, ice water, and Diet Pepsi were given as beverages. She has been tolerating a calorie restriction diet as well; education about restrictions was provided, concerning significances due to fluid overload + obesity complications. A purewick has remained in place for voiding needs + changed this shift. Moderate edema in her bilateral lower extremities was noted. Patient has been self-turning in bed but requires moderate assistance during transfers/ambulation. Auscultation of her lungs, bowels, and heart within normal findings. Soft, non-tender abdomen with a protrusion of her left side was noted upon palpation. Scheduled medications were administered as appropriately per MAR. ACHS glucose checks performed. Vital signs are stable. Oxygen saturations have remained > 90% on 2 L of oxygen via nasal cannula. At this time, the patient is resting in bed without any further complaints. No acute changes noted thus far. Call light within reach.
[2024-09-26 06:02] LABS: POC Glucose,Bedside 125 (70-110)
[2024-09-26] MEDS: IPRATROPIUM/ALBUTEROL 3 ML NEB IH (06:05)
[2024-09-26] MEDS: FLUTICASONE/UMECLIDIN/VILANTER 100/62.5/25MCG INHALER 1 PUFF IH (06:05)
[2024-09-26] MEDS: LEVOTHYROXINE 150MCG (0.15MG)TAB 300 MCG PO (06:36)
[2024-09-26 07:31] LABS: Basophils # 0.1 K/mm3 (0-0.2); Basophils % 0.6 % (0.1-2.0); Eosinophils # 0.3 K/mm3 (0.0-0.4); Eosinophils % 3.5 % (0.1-12.0); Hematocrit 39.4 % (37.0-47.0); Hemoglobin 11.8 g/dL (12.2-16.2); Lymphocytes # 2.2 K/mm3 (0.7-4.5); Lymphocytes % 25.2 % (10-50); Mean Corpuscular HGB Conc 29.9 g/dL (31.8-35.4); Mean Corpuscular Hemoglobin 26.5 pg (27.0-31.2); Mean Corpuscular Volume 88.5 fl (81-99); Monocytes # 0.6 K/mm3 (0.1-1.0); Neutrophils # 5.4 K/mm3 (1.8-7.8); Platelet Count 307 K/mm3 (142-424); Red Blood Count 4.45 M/mm3 (4.20-5.40); Red Cell Distribution Width 15.3 % (11.5-17.5); White Blood Count 8.6 K/mm3 (4.8-10.8)
[2024-09-26 07:48] LABS: Albumin Level 3.8 g/dl (3.5-5.0); Albumin/Globulin Ratio 1.2 (1.1-1.8); Alkaline Phosphatase 85 U/L (38-126); Bilirubin,Total 0.2 mg/dl (0.2-1.3); Blood Urea Nitrogen 26 mg/dl (7-17); Calcium 9.5 mg/dl (8.4-10.2); Carbon Dioxide 37 mmol/L (22.0-30.0); Creatinine Clearance Estimated 55 mL/min (50-200); Estimated Glomerular Filt Rate 65 ml/min (>60); GFR (African American) 78 ML/MIN (>60); Globulin 3.2 g/dL (1.3-3.2); Glucose 163 mg/dl (74-100); HDL Cholesterol 34 mg/dl (40-60)
[2024-09-26 07:49] LABS: Alanine Aminotransferase 25 U/L (12-78); Aspartate Amino Transferase 27 U/L (14-36); Chloride 94 mmol/L (98-107); Chol/HDL Ratio 4.8 (1-3.5); Cholesterol 163 mg/dl (140-200); Sodium 135 mmol/L (136-145); Triglycerides 267 mg/dl (30-150); VLDL Cholesterol 53 mg/dL (0-40)
[2024-09-26 07:51] LABS: Troponin I < 0.01 ng/ml (0.00-0.034)
[2024-09-26 07:58] LABS: Direct LDL Cholesterol 77.25 mg/dL (100-129)
[2024-09-26] MEDS: METFORMIN 500MG TABLET 500 MG PO (08:18)
[2024-09-26] MEDS: OXYBUTYNIN 5MG TAB 5 MG PO (08:18)
[2024-09-26] MEDS: ASPIRIN EC 81MG TABLET 81 MG PO (08:18)
[2024-09-26] MEDS: CALCIUM CARBONATE 500MG CHEWTAB 500 MG PO (08:18)
[2024-09-26] MEDS: SPIRONOLACTONE 25MG TABLET 25 MG PO (08:18)
--- NOTE | 2024-09-26 08:18 | P.DS_ITS ---
General Admission date:: 09/24/24 Discharge date: 09/26/24 HPI HPI HPI: A 54-year-old female with a history of anxiety, COPD, type 2 diabetes, morbid obesity (BMI 70), diastolic heart failure (last EF 50% in 2023), obstructive sleep apnea, and tobacco abuse presents to the emergency department with shortness of breath. She reports that this morning, after walking to her bathroom, she became short of breath. She sat down, then got up and walked again, experiencing progressively worsening dyspnea, stating she could not catch her breath, prompting her to call EMS. EMS transported her to the ED. She also reports mild substernal chest pain that does not radiate, without diaphoresis, nausea, vomiting, cough, fevers, or chills. She notes she often does not take her diuretic due to incontinence and difficulty ambulating. History was obtained via conversation with the patient and EMS. On arrival, the patient was hemodynamically stable, alert, oriented x4,. Initial vital signs showed blood pressure 154/93 mmHg, heart rate 85 bpm, and oxygen saturation 92-94% on 4 L nasal cannula. Physical exam revealed a chronically ill-appearing female in no acute distress, nontachypneic, nontachycardic, with diffusely diminished lung sounds and lower extremity edema. The patient was placed on continuous cardiac monitoring and pulse oximetry. An EKG showed sinus rhythm with right bundle branch block morphology, ST depressions, and T-wave inversions in V3-V6, II, III, and aVF, without reciprocal elevations (DE 183 ms, QRS 121 ms, QTc 413 ms). She received DuoNebs, Solu-Medrol, and aspirin for symptomatic management. Labs revealed troponin 0.04 ng/mL (elevated) repeat 0.07, BNP 547 pg/mL, and VBG with chronic respiratory acidosis (pH 7.37, pCO2 54.3 mmHg, HCO3 30.4 mmol/L); CBC and chemistry were otherwise nonactionable. Imaging showed cardiomegaly and pulmonary edema. HEART score was 6. She was given 80 mg IV Lasix for diuresis. On reevaluation, she reported resolution of chest pain and improved but persistent dyspnea compared to baseline. Hospital medicine was contacted, and per request, the on-call rehab liaison was consulted due to limited weekend inpatient services; the rehab liaison Dr. David agreed to admission. Given her EKG findings, elevated troponin, BNP, and history, this most likely represents a type II NSTEMI in the setting of CHF exacerbation. The patient, deemed high risk for decompensation, understood and agreed to inpatient admission. Hospital Course Hospital Course Hospital Course: Morbidly obese 54-year-old female with multiple comorbidities who presents with shortness of breath. Concern for NSTEMI and CHF exacerbation. Admitted to medicine after discussion with cardiology due to concern about potential for interventions on patient given her size limiting ability to do further imaging or access equipment. Has shown improvement with diuresis and medical management of NSTEMI. Cardiology evaluated. Will continue medical management. Safe for discharge home with further evaluation as an outpatient. Patient's symptoms improved and she felt much better by day of discharge. Problems addressed as follows: Type II Non-ST Elevation Myocardial Infarction (NSTEMI) in Setting of acute on chronic HFpEF - SOB after exertion, mild substernal chest pain (resolved), BNP 547 pg/mL, pulmonary edema on imaging, troponin 0.04 ng/mL, increased to 0.07. No appreciable ST elevations but did have some depressions and T wave inversions on EKG with a heart score of 6. History of diastolic CHF with EF of 50% on echo last year. Patient noncompliant with her diuretics due to incontinence and difficulty getting to the bathroom. Started on aggressive diuretic regimen. Showed improvement. Breathing better with removal of over 5 L during admission. Cardiology was consulted to assist with care. Repeat echo was obtained. Continue to show severe diastolic dysfunction with preserved EF. Repeat troponins during admission showed improvement. Was initiated on goal-directed therapy including the following: Aspirin 81 mg p.o. daily Bumex 3 mg p.o. twice daily Aldactone 25 mg p.o. daily Atorvastatin 40 mg p.o. daily Lisinopril 40 mg p.o. daily Toprol 12.5 mg p.o. daily Stable discharge home follow-up with cardiology as an outpatient. Will consider further ischemic workup as an outpatient if necessary or patient develops chest pain/worsening elevation in troponins/STEMI changes COPD, Stable - History of COPD, diminished lung sounds, no cough/wheeze; SOB likely CHF- driven; VBG with chronic respiratory acidosis (pCO2 54.3 mmHg, HCO3 30.4 mmol/L). Wears 2 L oxygen at home at baseline. Able to wean from 4 L to 2 L with diuresis. Overall doing well. Continue DuoNebs every 6 hours. Continued home CPAP and oxygen regimen. Continue Trelegy 100 inhaler. Type 2 Diabetes Mellitus, Controlled -A1c 6.3. Appears to be well-controlled. Treated with sliding scale insulin and fingersticks ACHS during admission. Continued her metformin twice daily. Resume home regimen at discharge. Obstructive Sleep Apnea (HONEY) and Tobacco Abuse - HONEY, BMI 70, tobacco use; chronic respiratory acidosis may reflect hypoventilation; dyspnea exacerbated by CHF. CPAP nightly per home regimen. Oxygen overnight at 4 L. Weaned to 2 L during the day which is her baseline. Anxiety, Stable: History of anxiety, on bupropion 400 mg daily (SR). Continue bupropion; gave 0.5 mg IV Ativan for acute anxiety Hypothyroid: continue levothyroxine 300mcg daily Morbid Obesity (BMI 70): Contributes to CHF, HONEY, mobility issues; limits diuretic compliance; requires higher diuretic doses. Complicates all aspects of her care. PT and OT consulted for mobility support. Patient at baseline. Total time spent on discharge 34 minutes in counseling, documentation, chart review, and direct care with patient. Exam Data for Last 24 hours Vital signs and Labs for Last 24 Hours: Temp Pulse Resp BP Pulse Ox O2 Del Method O2 Flow Rate 98.1 F 95 H 17 126/62 95 Nasal Cannula 2 09/26/24 07:31 09/26/24 07:31 09/26/24 07:31 09/26/24 07:31 09/26/24 07:31 09/26/24 07:54 09/26/24 07:54 FiO2 40 09/24/24 04:10 Laboratory Results - last 24 hr 09/25/24 08:42: WBC 8.0 D, RBC 4.14 L, Hgb 11.1 L, Hct 36.5 L, MCV 88.2, MCH 26.8 L, MCHC 30.4 L, RDW 15.0, Plt Count 306, MPV 10.4, Neut % (Auto) 67.1, Lymph % (Auto) 24.6, [place] % (Auto) 6.0, Eos % (Auto) 1.1, Baso % (Auto) 0.6, Neut # (Auto) 5.3, Lymph # (Auto) 2.0, [place] # (Auto) 0.5, Eos # (Auto) 0.1, Baso # (Auto) 0.1, Sodium 136, Potassium 4.3, Chloride 97 L, Carbon Dioxide 36 H, Anion Gap 7.3, BUN 26 H D, Creatinine 0.90, Estimated Creat Clear 55, Estimated GFR 65, Est GFR ( Amer) 78, Glucose 200 H, Calcium 9.2 09/25/24 12:40: POC Glucose 160 H 09/25/24 16:56: POC Glucose 107 09/25/24 20:11: POC Glucose 141 H 09/26/24 05:53: WBC 8.6, RBC 4.45, Hgb 11.8 L, Hct 39.4, MCV 88.5, MCH 26.5 L, MCHC 29.9 L, RDW 15.3, Plt Count 307, MPV 10.0, Neut % (Auto) 63.0, Lymph % (Auto) 25.2, [place] % (Auto) 7.0, Eos % (Auto) 3.5, Baso % (Auto) 0.6, Neut # (Auto) 5.4, Lymph # (Auto) 2.2, [place] # (Auto) 0.6, Eos # (Auto) 0.3, Baso # (Auto) 0.1, Sodium 135 L, Potassium 4.0, Chloride 94 L, Carbon Dioxide 37 H, Anion Gap 8.0, BUN 26 H, Creatinine 0.90, Estimated Creat Clear 55, Estimated GFR 65, Est GFR ( Amer) 78, Glucose 163 H, Calcium 9.5, Total Bilirubin 0.2, AST 27, ALT 25, Alkaline Phosphatase 85, Troponin I < 0.01, Total Protein 7.0, Albumin 3.8, Globulin 3.2, Albumin/Globulin Ratio 1.2, Triglycerides 267 H, Cholesterol 163, LDL Cholesterol Direct 77.25 L, VLDL Cholesterol 53 H, HDL Cholesterol 34 L, Cholesterol/HDL Ratio 4.8 H 09/26/24 05:54: POC Glucose 125 H I & O for Last 24 hours: Intake & Output 09/23/24 09/24/24 09/26/24 09/26/24 23:59 23:59 00:59 23:59 Intake Total 1270 / 1750 942 / 1718 1136 / 1136 Output Total 3850 / 3850 4290 / 5090 800 / 800 Balance -2580 / -2100 -3348 / -3372 336 / 336 Weight 184.612 kg 179.282 kg 192.414 kg 185.928 kg Constitutional Constitutional: no acute distress, morbidly obese, chronically ill appearing and cooperative *Routine HEENT Exam Head: Present normocephalic Eye: Present EOMI and PERRL ENT: Present mucous membranes moist *Routine Neck Exam Neck: Present supple; Absent lymphadenopathy *Routine Respiratory Exam Respiratory: Present rhonchi, distant breath sounds and diminished air movement; Absent wheezes or crackles *Routine Cardiovascular Exam Cardiovascular: Present RRR *Routine Abdominal Exam Abdominal: Present soft, normoactive bowel sounds and distended; Absent tenderness Comments: Large non incarcerated abdominal wall hernis left abdomen *Routine Rectal Exam Patient deferred: visual exam *Routine Exam Patient deferred: external exam *Routine Extremities Exam Extremities: Absent cyanosis, clubbing or edema *Routine Skin Exam Skin: Present intact and warm; Absent rash *Routine Neurological Exam Neurological: Present alert, oriented X3 and moving all extremities; Absent altered mental status Routine Psychiatric Exam Psychiatric: Present normal affect Results Data Completed and Pending Labs on day of discharge: Labs from last 24 hours 09/26/24 09/26/24 09/25/24 05:54 05:53 20:11 WBC 8.6 RBC 4.45 Hgb 11.8 L Hct 39.4 MCV 88.5 MCH 26.5 L MCHC 29.9 L RDW 15.3 Plt Count 307 MPV 10.0 Neut % (Auto) 63.0 Lymph % (Auto) 25.2 [place] % (Auto) 7.0 Eos % (Auto) 3.5 Baso % (Auto) 0.6 Neut # (Auto) 5.4 Lymph # (Auto) 2.2 [place] # (Auto) 0.6 Eos # (Auto) 0.3 Baso # (Auto) 0.1 Sodium 135 L Potassium 4.0 Chloride 94 L Carbon Dioxide 37 H Anion Gap 8.0 BUN 26 H Creatinine 0.90 Estimated Creat Clear 55 Estimated GFR 65 Est GFR ( Amer) 78 Glucose 163 H POC Glucose 125 H 141 H Calcium 9.5 Total Bilirubin 0.2 AST 27 ALT 25 Alkaline Phosphatase 85 Troponin I < 0.01 Total Protein 7.0 Albumin 3.8 Globulin 3.2 Albumin/Globulin Ratio 1.2 Triglycerides 267 H Cholesterol 163 LDL Cholesterol Direct 77.25 L VLDL Cholesterol 53 H HDL Cholesterol 34 L Cholesterol/HDL Ratio 4.8 H 09/25/24 09/25/24 09/25/24 16:56 12:40 08:42 WBC 8.0 D RBC 4.14 L Hgb 11.1 L Hct 36.5 L MCV 88.2 MCH 26.8 L MCHC 30.4 L RDW 15.0 Plt Count 306 MPV 10.4 Neut % (Auto) 67.1 Lymph % (Auto) 24.6 [place] % (Auto) 6.0 Eos % (Auto) 1.1 Baso % (Auto) 0.6 Neut # (Auto) 5.3 Lymph # (Auto) 2.0 [place] # (Auto) 0.5 Eos # (Auto) 0.1 Baso # (Auto) 0.1 Sodium 136 Potassium 4.3 Chloride 97 L Carbon Dioxide 36 H Anion Gap 7.3 BUN 26 H D Creatinine 0.90 Estimated Creat Clear 55 Estimated GFR 65 Est GFR ( Amer) 78 Glucose 200 H POC Glucose 107 160 H Calcium 9.2 Total Bilirubin AST ALT Alkaline Phosphatase Troponin I Total Protein Albumin Globulin Albumin/Globulin Ratio Triglycerides Cholesterol LDL Cholesterol Direct VLDL Cholesterol HDL Cholesterol Cholesterol/HDL Ratio DS: Diagnosis Discharge Diagnosis (1) Non-ST elevation ID (NSTEMI): Status: Acute Code(s): I21.4 - Non-ST elevation (NSTEMI) myocardial infarction (2) CHF exacerbation: Status: Acute Code(s): I50.9 - Heart failure, unspecified (3) Chest pain: Status: Acute Code(s): R07.9 - Chest pain, unspecified Qualifiers: Chest pain type: unspecified Qualified Code(s): R07.9 - Chest pain, unspecified (4) Type 2 diabetes mellitus: Status: Acute Code(s): E11.9 - Type 2 diabetes mellitus without complications (5) Morbid obesity: Status: Acute Code(s): E66.01 - Morbid (severe) obesity due to excess calories (6) (HFpEF) heart failure with preserved ejection fraction: Status: Acute Code(s): I50.30 - Unspecified diastolic (congestive) heart failure Qualifiers: Heart failure chronicity: unspecified Qualified Code(s): I50.30 - Unspecified diastolic (congestive) heart failure (7) Shortness of breath: Status: Acute Code(s): R06.02 - Shortness of breath (8) Acute exacerbation of chronic obstructive pulmonary disease: Status: Acute Code(s): J44.1 - Chronic obstructive pulmonary disease with (acute) exacerbation (9) HONEY (obstructive sleep apnea): Status: Acute Code(s): G47.33 - Obstructive sleep apnea (adult) (pediatric) (10) Hypothyroidism (acquired): Status: Acute Code(s): E03.9 - Hypothyroidism, unspecified Meds Home Medications and Allergies Home Medications ?Medication ?Instructions ?Recorded ?Confirmed ?Type calcium carbonate (Calcium 600) 600 mg PO DAILY 10/03/23 09/23/24 History lancets (Accu-Chek Softclix #200 ea 05/16/24 09/24/24 Rx Lancets) blood-glucose meter (Accu-Chek #1 ea 05/26/24 09/24/24 Rx Guide Glucose Meter) bupropion HCl 200 mg tablet,12 hr 400 mg (2 x 200 mg) PO DAILY #180 05/26/24 09/24/24 Rx sustained-release tabs cholecalciferol (vitamin D3) 1,250 1,250 mcg PO WEEKLY #12 caps 05/26/24 09/24/24 Rx mcg (50,000 unit) capsule spironolactone 25 mg tablet 25 mg PO DAILY #90 tabs 07/06/24 09/24/24 Rx levothyroxine 150 mcg tablet 300 mcg PO DAILY 08/16/24 09/24/24 History blood sugar diagnostic (Accu-Chek #50 strips 09/06/24 09/24/24 Rx Guide test strips) albuterol sulfate 90 mcg/actuation 2 puff inhalation Q4HP PRN SOA 09/24/24 09/24/24 History aerosol inhaler cyanocobalamin (vitamin B-12) 1,000 mcg PO DAILY 09/24/24 09/24/24 History 1,000 mcg tablet fluticasone fur. 100 mcg-umeclid 1 inh inhalation DAILY 09/24/24 09/24/24 History 62.5 mcg-vilant 25 mcg inhalat.powder (Trelegy Ellipta) ipratropium 0.5 mg-albuterol 3 mg 3 ml inhalation QIDP PRN shortness 09/24/24 09/24/24 History (2.5 mg base)/3 mL nebulization of breath or wheezing soln lisinopril 40 mg tablet 40 mg PO DAILY 09/24/24 09/24/24 History metformin 500 mg tablet 500 mg PO BID 09/24/24 09/24/24 History ropinirole 4 mg tablet 4 mg PO HS 09/24/24 09/24/24 History trazodone 150 mg tablet 300 mg PO HS 09/24/24 09/24/24 History aspirin 81 mg tablet,delayed 81 mg PO DAILY 30 days #30 tabs 09/26/24 Rx release atorvastatin 40 mg tablet 40 mg PO HS #30 tabs 09/26/24 Rx bumetanide 1 mg tablet 3 mg (3 x 1 mg) PO BID 30 days 09/26/24 Rx #180 tabs meloxicam 15 mg tablet 15 mg PO DAILY PRN Moderate Pain 09/26/24 09/24/24 Rx (Scale Score 5-6) #30 tabs metoprolol succinate 25 mg 12.5 mg (1/2 x 25 mg) PO DAILY 30 09/26/24 Rx tablet,extended release 24 hr days #15 tabs oxybutynin chloride 5 mg tablet 5 mg PO BID 30 days #60 tabs 09/26/24 Rx ondansetron 4 mg disintegrating 4 mg PO Q8HP PRN NAUSEA/VOMITING 09/27/24 Rx tablet #30 tabs New Prescriptions to Start Prescriptions: aspirin Hernan Barros atorvastatin Hernan Barros bumetanide Hernan Barros metoprolol succinate Hernan Barros oxybutynin chloride Hernan Barros Allergies Allergy/AdvReac Type Severity Reaction Status Date / Time adhesive tape (ADHESIVE TAPE) Allergy Unknown Blister Verified 09/17/24 18:24 hydromorphone (From DILAUDID) Allergy Unknown Hypotension Verified 09/17/24 18:24 nickel (NICKEL) Allergy Unknown Blister Verified 09/17/24 18:24 Discharge Plan Disposition Patient Disposition: Home, Self-Care Condition: Fair Follow up Plan Follow up with: Vahid Garcia DO [Primary Care Provider] - 10/04/24 9:00 am Thierry Mann MD [Staff Physician] - 10/12/24 1:45 pm Prescriptions/Medication Reconciliation: New aspirin 81 mg Tablet,Delayed Release (Dr/Ec) 81 mg PO DAILY 30 Days Qty: 30 0RF oxybutynin chloride 5 mg Tablet 5 mg PO BID 30 Days Qty: 60 0RF metoprolol succinate 25 mg Tablet Extended Release 24 Hr 12.5 mg PO DAILY 30 Days Qty: 15 0RF atorvastatin 40 mg tablet 40 mg PO HS Qty: 30 0RF Continued levothyroxine 150 mcg tablet 300 mcg PO DAILY Patient Comments: TAKE TWO TABLETS BY MOUTH EVERY DAY IN THE MORNING (DME) lancets [Accu-Chek Softclix Lancets] Misc See Rx Instructions .ROUTE .COMPLEX Qty: 200 3RF Dose Instruction: USE TO test blood sugar THREE TIMES DAILY Rx Instructions: USE TO test blood sugar THREE TIMES DAILY (DME) blood-glucose meter [Accu-Chek Guide Glucose Meter] Misc See Rx Instructions .Route Qty: 1 3RF Rx Instructions: As directed bupropion HCl 200 mg tablet sustained-release 12 hr 400 mg PO DAILY Qty: 180 1RF cholecalciferol (vitamin D3) 1,250 mcg (50,000 unit) capsule 1,250 mcg PO WEEKLY Qty: 12 3RF spironolactone 25 mg tablet 25 mg PO DAILY Qty: 90 3RF (DME) Accu-Chek Guide test strips Strip See Rx Instructions .ROUTE .COMPLEX Qty: 50 3RF Dose Instruction: USE TO test blood sugar THREE TIMES DAILY Rx Instructions: USE TO test blood sugar THREE TIMES DAILY calcium carbonate [Calcium 600] 600 mg calcium (1,500 mg) Tablet 600 mg PO DAILY cyanocobalamin (vitamin B-12) 1,000 mcg tablet 1,000 mcg PO DAILY Patient Comments: TAKE ONE TABLET BY MOUTH EVERY DAY Trelegy Ellipta 100-62.5-25 mcg blister with device 1 inh INHALATION DAILY Patient Comments: INHALE 1 PUFF BY MOUTH EVERY DAY --RINSE MOUTH AFTER USE-- ipratropium-albuterol 0.5 mg-3 mg(2.5 mg base)/3 mL solution for nebulization 3 ml inhalation QIDP PRN (Reason: shortness of breath or wheezing) albuterol sulfate 90 mcg/actuation HFA aerosol inhaler 2 puff inhalation Q4HP PRN (Reason: SOA) Rx Instructions: INHALE 2 PUFFS BY MOUTH EVERY 4 TO 6 HOURS NEEDED FOR SHORTNESS OF BREATH OR wheezing metformin 500 mg tablet 500 mg PO BID Patient Comments: TAKE ONE TABLET BY MOUTH TWICE DAILY trazodone 150 mg tablet 300 mg PO HS Patient Comments: TAKE TWO TABLETS BY MOUTH EVERY DAY AT BEDTIME ropinirole 4 mg tablet 4 mg PO HS lisinopril 40 mg Tablet 40 mg PO DAILY Changed meloxicam 15 mg tablet 15 mg PO DAILY PRN (Reason: Moderate Pain (Scale Score 5-6)) Qty: 30 2RF bumetanide 1 mg tablet 3 mg PO BID 30 Days Qty: 180 0RF Rx Instructions: TAKE THREE TABLETS BY MOUTH TWICE DAILY No Action ondansetron 4 mg tablet,disintegrating 4 mg PO Q8HP PRN (Reason: NAUSEA/VOMITING) Qty: 30 0RF Rx Instructions: DISSOLVE ONE TABLET in MOUTH EVERY 8 HOURS NEEDED FOR NAUSEA AND VOMITING Problem Reconciliation Problems Reviewed?: Yes Patient Discharge Instructions ACTIVITY: Continue current activity DIET: continue same diet Patient Instructions: Low Glycemic Index Diets (Alternative Therapy), Carbohydrate-Counting Diet, DI for Heart Failure, Using Nutrition Labels: Carbohydrate Diet Print Language: [place] Providers Primary Care Provider: Vahid Garcia Admit Provider: Hernan Barros Attending Provider: Hernan Barros
[2024-09-26] MEDS: BUMETANIDE 1MG/4ML VIAL 3 MG IV (08:21)
[2024-09-26] MEDS: HEPARIN SODIUM 5,000 UNIT/ML VIAL 5000 UNIT SUBCUT (08:21)
[2024-09-26] MEDS: DEFINITY US ECHO CONTRAST 2ML INJ 2 MG IV (08:31)
--- NOTE | 2024-09-26 08:58 | EXP.CARD.CON ---
History of Present Illness History of Present Illness Consult date: 09/26/24 Requesting physician: Hernan Barros Consult reason: shortness of breath Chief complaint: SOB and chest tightness History of present illness: Hospitalist note: A 54-year-old female with a history of anxiety, COPD, type 2 diabetes, morbid obesity (BMI 70), diastolic heart failure (last EF 50% in 2023), obstructive sleep apnea, and tobacco abuse presents to the emergency department with shortness of breath. She reports that this morning, after walking to her bathroom, she became short of breath. She sat down, then got up and walked again, experiencing progressively worsening dyspnea, stating she could not catch her breath, prompting her to call EMS. EMS transported her to the ED. She also reports mild substernal chest pain that does not radiate, without diaphoresis, nausea, vomiting, cough, fevers, or chills. She notes she often does not take her diuretic due to incontinence and difficulty ambulating. History was obtained via conversation with the patient and EMS. On arrival, the patient was hemodynamically stable, alert, oriented x4,. Initial vital signs showed blood pressure 154/93 mmHg, heart rate 85 bpm, and oxygen saturation 92-94% on 4 L nasal cannula. Physical exam revealed a chronically ill-appearing female in no acute distress, nontachypneic, nontachycardic, with diffusely diminished lung sounds and lower extremity edema. The patient was placed on continuous cardiac monitoring and pulse oximetry. An EKG showed sinus rhythm with right bundle branch block morphology, ST depressions, and T-wave inversions in V3-V6, II, III, and aVF, without reciprocal elevations (KS 183 ms, QRS 121 ms, QTc 413 ms). She received DuoNebs, Solu-Medrol, and aspirin for symptomatic management. Labs revealed troponin 0.04 ng/mL (elevated) repeat 0.07, BNP 547 pg/mL, and VBG with chronic respiratory acidosis (pH 7.37, pCO2 54.3 mmHg, HCO3 30.4 mmol/L); CBC and chemistry were otherwise nonactionable. Imaging showed cardiomegaly and pulmonary edema. HEART score was 6. She was given 80 mg IV Lasix for diuresis. On reevaluation, she reported resolution of chest pain and improved but persistent dyspnea compared to baseline. Hospital medicine was contacted, and per request, the on-call smoke chaser was consulted due to limited weekend inpatient services; the smoke chaser Dr. David agreed to admission. Given her EKG findings, elevated troponin, BNP, and history, this most likely represents a type II NSTEMI in the setting of CHF exacerbation. The patient, deemed high risk for decompensation, understood and agreed to inpatient admission. Cardiology note: This is a 54-year-old white female with past medical history of COPD on continuous 2 L oxygen via nasal cannula, diabetes mellitus type 2, morbid obesity with a BMI greater than 70 and history of heart failure with preserved ejection fraction who presented to hospital with complaints of shortness of breath and chest pain. Patient was admitted to hospital for NSTEMI and CHF exacerbation. Troponin on admission was 0.04 trending up to 0.07 and back down to 0.01. ProBNP on admission 547 and creatinine 0.9. EKG on admission shows sinus rhythm at a rate of 87 with a right bundle branch block and negative for STEMI. Patient has been diuresed with Bumex and Aldactone. Patient is -4 L. Oxygen weaned down to baseline of 2 L via nasal cannula. Patient reports shortness of breath and chest pain have resolved. Echo pending. [facility] Disclaimer: The information contained in this section may have been updated after the patient was seen, as this information can be updated by other users. Medical History (Updated 09/23/24 @ 23:54 by Joey Nieto MD) Abdominal pain UTI (urinary tract infection) Hospital discharge follow-up Establishing care with new doctor, encounter for Restless leg Glaucoma Arthritis of both knees Urinary incontinence Unspecified asthma, uncomplicated Tear of meniscus of knee Pre-diabetes Diastolic CHF, acute on chronic Pulmonary hypertension Elevated left ventricular end-diastolic pressure (LVEDP) Asthma exacerbation Sleep apnea History of COVID-19 COPD (chronic obstructive pulmonary disease) Asthma Abscess of groin, right Acute exacerbation of chronic obstructive airways disease Left against medical advice Dependent on wheelchair Assistance needed for continence Incisional hernia Lower leg pain Knee pain Vaginal bleeding Perimenopausal Cellulitis Hypothyroidism Dizziness Chest pain Sinusitis Tobacco abuse counseling Tobacco abuse HONEY (obstructive sleep apnea) Ventral hernia Dyspnea Depression Pharyngitis due to Streptococcus species Epigastric pain Gastritis Strep throat HTN (hypertension) Hypothyroidism (acquired) TIA (transient ischemic attack) COPD exacerbation Paresthesias Shortness of breath Acute bronchitis Tobacco abuse COPD (chronic obstructive pulmonary disease) Infiltrate of lung present on chest x-ray Atelectasis of right lung Cough Upper respiratory infection Surgical History History of lateral meniscus repair of right knee H/O tubal ligation Hx of cholecystectomy H/O hernia repair History of colon resection Family History Mother Hypertension Diabetes Father Cancer Social History Smoking Status: Former smoker tobacco type: cigarettes packs per day: 1 years smoked: 38 smoking status stop date: 3 months ago quit status: has quit before second hand exposure: Yes alcohol intake: never substance use type: denies use current occupational status: unemployed Travel in the last 8 weeks: None household members: family and children housing: other lives independently: No marital status: legally number of children: 4 education level: other caffeine: Yes do you feel safe at home: Yes victim of physical abuse: No victim of emotional abuse: No victim of sexual abuse: No Review of Systems Review of Systems Review of systems:: pertinent systems reviewed and negative unless documented below Exam Data for Last 24 hours Vital signs and Labs for Last 24 Hours: Temp Pulse Resp BP Pulse Ox O2 Del Method O2 Flow Rate 98.1 F 95 H 17 126/62 95 Nasal Cannula 2 09/26/24 07:31 09/26/24 07:31 09/26/24 07:31 09/26/24 07:31 09/26/24 07:31 09/26/24 07:54 09/26/24 07:54 FiO2 40 09/24/24 04:10 Laboratory Results - last 24 hr 09/25/24 08:42: WBC 8.0 D, RBC 4.14 L, Hgb 11.1 L, Hct 36.5 L, MCV 88.2, MCH 26.8 L, MCHC 30.4 L, RDW 15.0, Plt Count 306, MPV 10.4, Neut % (Auto) 67.1, Lymph % (Auto) 24.6, [place] % (Auto) 6.0, Eos % (Auto) 1.1, Baso % (Auto) 0.6, Neut # (Auto) 5.3, Lymph # (Auto) 2.0, [place] # (Auto) 0.5, Eos # (Auto) 0.1, Baso # (Auto) 0.1, Sodium 136, Potassium 4.3, Chloride 97 L, Carbon Dioxide 36 H, Anion Gap 7.3, BUN 26 H D, Creatinine 0.90, Estimated Creat Clear 55, Estimated GFR 65, Est GFR ( Amer) 78, Glucose 200 H, Calcium 9.2 09/25/24 12:40: POC Glucose 160 H 09/25/24 16:56: POC Glucose 107 09/25/24 20:11: POC Glucose 141 H 09/26/24 05:53: WBC 8.6, RBC 4.45, Hgb 11.8 L, Hct 39.4, MCV 88.5, MCH 26.5 L, MCHC 29.9 L, RDW 15.3, Plt Count 307, MPV 10.0, Neut % (Auto) 63.0, Lymph % (Auto) 25.2, [place] % (Auto) 7.0, Eos % (Auto) 3.5, Baso % (Auto) 0.6, Neut # (Auto) 5.4, Lymph # (Auto) 2.2, [place] # (Auto) 0.6, Eos # (Auto) 0.3, Baso # (Auto) 0.1, Sodium 135 L, Potassium 4.0, Chloride 94 L, Carbon Dioxide 37 H, Anion Gap 8.0, BUN 26 H, Creatinine 0.90, Estimated Creat Clear 55, Estimated GFR 65, Est GFR ( Amer) 78, Glucose 163 H, Calcium 9.5, Total Bilirubin 0.2, AST 27, ALT 25, Alkaline Phosphatase 85, Troponin I < 0.01, Total Protein 7.0, Albumin 3.8, Globulin 3.2, Albumin/Globulin Ratio 1.2, Triglycerides 267 H, Cholesterol 163, LDL Cholesterol Direct 77.25 L, VLDL Cholesterol 53 H, HDL Cholesterol 34 L, Cholesterol/HDL Ratio 4.8 H 09/26/24 05:54: POC Glucose 125 H I & O for Last 24 hours: Intake & Output 09/23/24 09/24/24 09/26/24 09/26/24 23:59 23:59 00:59 23:59 Intake Total 1270 / 1750 942 / 1718 1136 / 1136 Output Total 3850 / 3850 4290 / 5090 800 / 800 Balance -2580 / -2100 -3348 / -3372 336 / 336 Weight 407 lb 395 lb 3.986 oz 424 lb 3.2 oz 409 lb 14.4 oz Constitutional Constitutional: no acute distress *Routine Respiratory Exam Respiratory: Present CTA bilaterally and symmetric chest movement *Routine Cardiovascular Exam Cardiovascular: Present RRR, Normal S1 and Normal S2 *Routine Abdominal Exam Abdominal: Present soft and normoactive bowel sounds; Absent tenderness *Routine Extremities Exam Extremities: Present edema, full ROM and normal capillary refill *Routine Skin Exam Skin: Present intact, dry and warm Detailed Neck Exam: Thyroids Thyroid: Absent bruit Meds Home Medications and Allergies Home Medications ?Medication ?Instructions ?Recorded ?Confirmed ?Type calcium carbonate (Calcium 600) 600 mg PO DAILY 10/03/23 09/23/24 History lancets (Accu-Chek Softclix #200 ea 05/16/24 09/24/24 Rx Lancets) blood-glucose meter (Accu-Chek #1 ea 05/26/24 09/24/24 Rx Guide Glucose Meter) bupropion HCl 200 mg tablet,12 hr 400 mg (2 x 200 mg) PO DAILY #180 05/26/24 09/24/24 Rx sustained-release tabs cholecalciferol (vitamin D3) 1,250 1,250 mcg PO WEEKLY #12 caps 05/26/24 09/24/24 Rx mcg (50,000 unit) capsule spironolactone 25 mg tablet 25 mg PO DAILY #90 tabs 07/06/24 09/24/24 Rx levothyroxine 150 mcg tablet 300 mcg PO DAILY 08/16/24 09/24/24 History blood sugar diagnostic (Accu-Chek #50 strips 09/06/24 09/24/24 Rx Guide test strips) albuterol sulfate 90 mcg/actuation 2 puff inhalation Q4HP PRN SOA 09/24/24 09/24/24 History aerosol inhaler bumetanide 1 mg tablet 3 mg PO DAILY 09/24/24 09/24/24 History cyanocobalamin (vitamin B-12) 1,000 mcg PO DAILY 09/24/24 09/24/24 History 1,000 mcg tablet fluticasone fur. 100 mcg-umeclid 1 inh inhalation DAILY 09/24/24 09/24/24 History 62.5 mcg-vilant 25 mcg inhalat.powder (Trelegy Ellipta) ipratropium 0.5 mg-albuterol 3 mg 3 ml inhalation QIDP PRN shortness 09/24/24 09/24/24 History (2.5 mg base)/3 mL nebulization of breath or wheezing soln lisinopril 40 mg tablet 40 mg PO DAILY 09/24/24 09/24/24 History metformin 500 mg tablet 500 mg PO BID 09/24/24 09/24/24 History ondansetron 4 mg disintegrating 4 mg PO Q8HP PRN NAUSEA/VOMITING 09/24/24 09/24/24 History tablet ropinirole 4 mg tablet 4 mg PO HS 09/24/24 09/24/24 History trazodone 150 mg tablet 300 mg PO HS 09/24/24 09/24/24 History aspirin 81 mg tablet,delayed 81 mg PO DAILY 30 days #30 tabs 09/26/24 Rx release meloxicam 15 mg tablet 15 mg PO DAILY PRN Moderate Pain 09/26/24 09/24/24 Rx (Scale Score 5-6) #30 tabs oxybutynin chloride 5 mg tablet 5 mg PO BID 30 days #60 tabs 09/26/24 Rx New Prescriptions to Start Prescriptions: Hernan Ramírez oxybutynin chloride Hernan Barros Allergies Allergy/AdvReac Type Severity Reaction Status Date / Time adhesive tape (ADHESIVE TAPE) Allergy Unknown Blister Verified 09/17/24 18:24 hydromorphone (From DILAUDID) Allergy Unknown Hypotension Verified 09/17/24 18:24 nickel (NICKEL) Allergy Unknown Blister Verified 09/17/24 18:24 Assessment and Plan *Assessment and plan (1) Non-ST elevation [place] (NSTEMI): Status: Acute Category: Medical Code(s): I21.4 - Non-ST elevation (NSTEMI) myocardial infarction (2) (HFpEF) heart failure with preserved ejection fraction: Status: Acute Qualifiers: Heart failure chronicity: unspecified Qualified Code(s): I50.30 - Unspecified diastolic (congestive) heart failure Category: Medical Code(s): I50.30 - Unspecified diastolic (congestive) heart failure (3) Morbid obesity: Status: Acute Category: Medical Code(s): E66.01 - Morbid (severe) obesity due to excess calories Plan Acute on Chronic HFpEF NYHA [id number] Elevated trop in the setting of acute heart failure Morbid obesity with a BMI of 70 HONEY present Troponin 0.04, 0.07, 0.04 BNP 547 Chest x-ray negative for acute findings Preliminary echo report shows a normal LV systolic function. Asynchronous septum, mildly dilated RV with mild reduction in RV function. No significant valvular stenosis or regurg Patient feels better after diuresing. Denies chest pain. Reports soa has improved. Recommend outpatient stress testing CV summary 09/26/2024: Patient is CV stable for discharge home. Please have patient follow-up in cardiology clinic in 1 to 2 weeks for recheck. Please continue below listed medications. Aspirin 81 mg p.o. daily Bumex 3 mg p.o. twice daily Aldactone 25 mg p.o. daily Atorvastatin 40 mg p.o. daily Lisinopril 40 mg p.o. daily Toprol 12.5 mg p.o. daily
--- NOTE | 2024-09-26 10:21 | CA_ITS ---
APPROVED REPORT EXAM: Comprehensive 2D, Doppler, and color-flow Echocardiogram Assistant Director Of Nursing: Margaux Dickens CRT Ht: 5 ft 2 in Wt: 424lbs BSA: 2.63 BP: 124/83 mmHg Indications: Chest Pain, Congestive Heart Failure, Shortness of Breath, Non STEMI, Diabetes, Morbid Obesity, Hypertension/HDD non compliant with diuretics ef 50% 2023 Echo Enhancing Agent Indication: Endocardial border delineation Agent(s) / Amount(s) Used: Definity 2 cc Comments: Definity given. M-Mode Dimensions RVDd 3.57 cm (0.9-2.6) LA Diam 3.50 cm (1.9-4.0) LVDd 3.70 cm (3.5-5.7) LVDs 2.55 cm (3.5-5.7) IVSd 2.13 cm (0.6-1.1) PWd 0.68 cm (0.6-1.1) EF (Teich) 59.70% FS 31.10% EDV (Teich) 58.10 mL TAPSE 2.21 (<1.7) ESV (Teich) 23.40 mL LV Diastology E Decel Time 103 (160-240 msec) E/A Ratio 0.79 MED A' 6.90 cm/s LAT A' 14.80 cm/s Aortic Valve AO Peak GR. 12.40 mmHg Mitral Valve MV A Velocity 76.0 (40-130 cm/s) E/A Ratio 0.79 Tricuspid Valve TR P. Velocity 94.00 cm/s RAP Estimate 10.00 mmHg RVSP 13.50 mmHg Left Ventricle The left ventricle is normal size. The left ventricular systolic function is normal. The left ventricular ejection fraction is within the normal range. There is increased LV wall thickness. The septum is asynchronous. Transmitral Doppler flow pattern suggests impaired LV relaxation. No left ventricle thrombus noted on this study. LVEF is 55-60%. Right Ventricle The right ventricle is not very well-visualized, but grossly appears mildly dilated with mild reduction in RV function. Atria The left atrium size is normal. The right atrium size is normal. There is no Doppler evidence of interatrial shunt. Aortic Valve The aortic valve is mildly thickened. There is no aortic valvular stenosis. No aortic regurgitation is present. Mitral Valve The mitral valve is normal in structure. No evidence of mitral valve stenosis. There is no mitral valve regurgitation noted. Tricuspid Valve Tricuspid valve is grossly normal in structure and function. Trace tricuspid regurgitation. There is insufficient TR jet to estimate RVSP. Pulmonic Valve The pulmonic valve is not well-visualized. Great Vessels the aortic root is not well-visualized. The IVC is not well-visualized. Pericardium There is no pericardial effusion. Other Information Study Quality: Technically Difficult Conclusion Technically difficult study due to poor acoustic windows. Normal LV systolic function. Asynchronous septum. RV is not very well-visualized, but grossly appears mildly dilated with mild reduction in RV function. No significant valvular stenosis or regurgitation. Electronically signed by : Candice Mann MD 09/26/2024 12:15:59
[2024-09-26 11:36] LABS: POC Glucose,Bedside 113 (70-110)
--- NOTE | 2024-09-26 13:58 | DIET.NUTRFU ---
Saw patient, she request diabetic education. Included multiple handouts in dsicharge paperwork. Also reviewed in person how many carbs/meal/day and how much protein. Also discussed fiber needs to help with weight loss. 1800 calorie diet was provided. She normally only eats 2 meals/day and eats a carb heavy dinner. Talked alot about portion control. Her A1c is 6.3% on medication but she would also like to improve diet. Her son is also going to go on a diet and help support her
[2024-09-26] MEDS: METOPROLOL SUCCINATE XL 25MG TABLET 12.5 MG PO (14:06)
--- NOTE | 2024-09-27 10:28 | SW/DCPLANNER ---
Spoke with patient on the phone. Patient stated that she is doing good. Patient stated that she is aware of her upcoming appointments. Patient stated that clinic pharmacy is going to deliver her new medicine today. Patient stated that she has no concerns or questions at this time. Lore Venegas
== END 2024-09-26 14:50 | disposition home or self-care (01) ==
LOC: ER 23:54 → 2ND 09-24 01:12
PROVIDERS: Nurse Practitioner Family; Admitting Provider Internal Medicine Adolescent Medicine; Emergency Provider Emergency Medicine; PCP Internal Medicine; Visit Provider Internal Medicine Adolescent Medicine
DX: I11.0 Hypertensive heart disease with heart failure (principal); J44.89 Other specified chronic obstructive pulmonary disease; I21.A1 Myocardial infarction type 2; I50.33 Acute on chronic diastolic (congestive) heart failure; G47.33 Obstructive sleep apnea (adult) (pediatric); E11.9 Type 2 diabetes mellitus without complications; E66.01 Morbid (severe) obesity due to excess calories; F41.9 Anxiety disorder, unspecified; I45.10 Unspecified right bundle-branch block; R60.0 Localized edema; T50.1X6A Underdosing of loop [high-ceiling] diuretics, initial encounter; R32 Unspecified urinary incontinence; E03.9 Hypothyroidism, unspecified; K46.9 Unspecified abdominal hernia without obstruction or gangrene; Z88.5 Allergy status to narcotic agent; Z91.048 Other nonmedicinal substance allergy status; Z68.45 Body mass index [BMI] 70 or greater, adult; Z71.3 Dietary counseling and surveillance; Z87.891 Personal history of nicotine dependence; Z80.9 Family history of malignant neoplasm, unspecified; Z83.3 Family history of diabetes mellitus; Z82.49 Family history of ischemic heart disease and other diseases of the circulatory system; Z90.49 Acquired absence of other specified parts of digestive tract; Z79.51 Long term (current) use of inhaled steroids; Z79.890 Hormone replacement therapy; Z79.899 Other long term (current) drug therapy; Z79.84 Long term (current) use of oral hypoglycemic drugs; Z99.3 Dependence on wheelchair; Z99.81 Dependence on supplemental oxygen; Z91.148 Patient's other noncompliance with medication regimen for other reason
CPT/HCPCS: 94660; 36415; 71045; 80048; 80053; 80061; 82803; 82962; 83036; 83735; 83880; 84100; 84484; 85025; 93005; 93306; 94640; 94760; 94761; 97163; 97165; 99291; G0378; J1644; J1939; J1940; J2060; J2919; J7620; Q9957

== ENCOUNTER 2024-11-22 15:20 | Outpatient (CLI) | payer MEDICARE, OTHER, SELFPAY ==
[2024-11-22 16:28] LABS: Basophils % 0.4 % (0.1-2.0); Eosinophils # 0.2 Kmm3 (0.0-0.4); Eosinophils % 2.2 % (0.1-12.0); Hemoglobin 10.3 g/dL (12.2-16.2); Immature Granulocytes # 0.07 10^3uL; Immature Granulocytes % 0.8 %; Lymphocytes # 1.5 K/mm3 (0.7-4.5); Lymphocytes % 16.9 % (10-50); Mean Corpuscular HGB Conc 29.4 g/dL (31.8-35.4); Mean Corpuscular Hemoglobin 26.9 pg (27.0-31.2); Mean Corpuscular Volume 91.4 fl (81-99); Mean Platelet Volume 9.6 fl (7.4-10.4); Monocytes # 0.4 K/mm3 (0.1-1.0); Monocytes % 4.6 % (1.7-9.3); Neutrophils # 6.8 K/mm3 (1.8-7.8); Neutrophils % 75.1 % (37.0-80.0); Nucleated Red Blood Cells # 0 10^3/uL; Nucleated Red Blood Cells % 0 %; Platelet Count 304 K/mm3 (142-424); Red Blood Count 3.83 M/mm3 (4.20-5.40); Red Cell Distribution Width 16.3 % (11.5-17.5); Red Cell Distribution Width-SD 54.2 fL; White Blood Count 9.1 K/mm3 (4.8-10.8)
[2024-11-22 17:08] LABS: Alanine Aminotransferase 15 U/L (12-78); Albumin Level 3.7 g/dl (3.5-5.0); Alkaline Phosphatase 85 U/L (38-126); Anion Gap 2.7 mEq/L (5-15); Aspartate Amino Transferase 22 U/L (14-36); Bilirubin,Direct 0.2 mg/dl (0.0-0.4); Bilirubin,Indirect 0.1 mg/dL (0.0-0.9); Bilirubin,Total 0.3 mg/dl (0.2-1.3); Bilirubin,Unconjugated 0.1 mg/dL (0.0-1.1); Blood Urea Nitrogen 17 mg/dl (7-17); Calcium 9.4 mg/dl (8.4-10.2); Carbon Dioxide 40 mmol/L (22.0-30.0); Chloride 95 mmol/L (98-107); Chol/HDL Ratio 4.7 (1-3.5); Cholesterol 237 mg/dl (140-200); Estimated Glomerular Filt Rate 74 ml/min (>60); GFR (African American) 90 ML/MIN (>60); Glucose 133 mg/dl (74-100); HDL Cholesterol 50 mg/dl (40-60); Magnesium 2.1 mg/dl (1.6-2.3); Potassium 4.7 mmoL/L (3.5-5.1); Sodium 133 mmol/L (136-145); Total Protein,Serum 6.7 g/dl (6.3-8.2); Triglycerides 174 mg/dl (30-150); VLDL Cholesterol 35 mg/dL (0-40)
[2024-11-22 17:22] LABS: Direct LDL Cholesterol 147.18 mg/dL (100-129)
[2024-11-22 17:31] LABS: Free T4 (Free Thyroxine) 0.13 ng/dl (0.78-2.19)
== END 2024-11-22 23:59 | disposition home or self-care (01) ==
LOC: LAB 15:22
PROVIDERS: PCP Internal Medicine; Visit Provider Internal Medicine
DX: I50.30 Unspecified diastolic (congestive) heart failure (principal); E03.9 Hypothyroidism, unspecified
CPT/HCPCS: 36415; 80048; 80061; 80076; 83735; 84439; 84443; 85025

== ENCOUNTER 2024-12-02 17:38 | Inpatient (IN) | payer MEDICARE, OTHER, SELFPAY ==
[2024-12-02] VITALS (9 sets, daily range): BP systolic 124–172; BP diastolic 46–84; PULSE 42–75; RESP 12–22; TEMP 36.6; O2SAT 96–100; BMI 79.6
--- NOTE | 2024-12-02 17:39 | ECG_ITS ---
APPROVED REPORT Exam: Resting ECG HR:47 bpm ECG Measurements Heart Rate 47 AXES QRSd 129 QRS -26 QT 433 T -49 QTc 395 Conclusion SINUS BRADYCARDIA WITH 2ND DEGREE AV BLOCK, 2:1 OR MOBITZ TYPE II BORDERLINE LEFT AXIS DEVIATION [QRS AXIS < -20] RIGHT BUNDLE BRANCH BLOCK [120+ ms QRS DURATION, UPRIGHT V1, 40+ ms S IN I/aVL/V4/V5/V6] MODERATE T-WAVE ABNORMALITY, CONSIDER INFERIOR ISCHEMIA [-0.1+ mV T-WAVE IN II/aVF] No STEMI Electronically signed by : ROSCOE GONZALEZ, 12/02/2024 23:37:22
--- NOTE | 2024-12-02 17:42 | XR_ITS ---
PROCEDURE INFORMATION: Exam: XR Chest Exam date and time: 12/02/2024 5:56 PM Age: 54 years old Clinical indication: Shortness of breath; Additional info: bertha LU TECHNIQUE: Imaging protocol: Radiologic exam of the chest. Views: 1 view. COMPARISON: CR XR CHEST PORTABLE 09/23/2024 8:52 PM FINDINGS: Tubes, catheters and devices: Extrinsic device obscuring the left heart border and central left lung. Numerous leads project over the right hemithorax. Lungs: Question mild central vascular congestion/pulmonary arterial hypertension. No gross pulmonary infiltrates or edema pattern although left base largely obscured. Pleural spaces: No gross pleural effusion. Poorly delineated left lateral costophrenic angle is felt to relate to the prominent periapical fat pad which is better appreciated on the comparison CT 08/23/2024. No pneumothorax. Heart/Mediastinum: Heart size normal. Bones/joints: No gross osseous abnormalities. IMPRESSION: 1. No definite acute process. 2. Question mild central vascular congestion/pulmonary arterial hypertension. 3. Limited exam.
--- NOTE | 2024-12-02 17:45 | ED_ITS ---
<Statement entered by Slime Arguelles DO - 12/02/24 23:12> I was consulted by the DYLON, and we discussed the complexity of the problems being addressed. I approved the treatment and management plan for this patient's care in the emergency department, thus performing a substantive portion of the medical decision making. Patient arrives critically ill with symptomatic bradycardia in the setting of second-degree Mobitz type II AV block. She also is severely hypothyroid with medication noncompliance, though I do not feel that this is likely causing her clinical picture at this time. She is hemodynamically stable not requiring pacing currently, though pacer pads were placed and it was considered. After cardiology consultation, she was deemed to be appropriate for admission. Slime Arguelles DO Discharge Plan Disposition Patient Disposition: Admitted Condition: Good Clinical Impressions Clinical Impression: Hypothyroidism (acquired), Chest pain, Bradycardia, Generalized weakness Discharge ED Provider: Slime Arguelles General Adult HPI <KEVON Coronado - Last Filed: 12/02/24 20:30> General Chief complaint: Arrhythmia/Palpitations Stated complaint: Chest Pain Time Seen by Provider: 12/02/24 17:41 History of Present Illness HPI narrative: 54-year-old female presents to the emergency department EMS for chest pain shortness of breath that occurred 7 hours ago, patient denies any inciting factor to this event, she has chest pain shortness of breath at rest, is somewhat immobile at baseline and has history of morbid obesity, per EMS noticed episodes of bradycardia , thought to be a heart block of some kind , patient was given full dose of atropine and route via EMS, with some improvement of her symptomatology. 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 Initial triage vitals notable for bradycardia, blood pressure within normal limits, SpO2 within normal limits on 2 L nasal cannula chronically at home. Onset (ago): hour(s) Related Data Home Medications ?Medication ?Instructions ?Recorded ?Confirmed calcium carbonate (Calcium 600) 600 mg PO DAILY 10/03/23 12/02/24 levothyroxine 150 mcg tablet 300 mcg PO DAILY 08/16/24 12/02/24 albuterol sulfate 90 mcg/actuation 2 puff inhalation Q4HP PRN SOA 09/24/24 12/02/24 aerosol inhaler cyanocobalamin (vitamin B-12) 1,000 mcg PO DAILY 09/24/24 12/02/24 1,000 mcg tablet fluticasone fur. 100 mcg-umeclid 1 inh inhalation DAILY 09/24/24 12/02/24 62.5 mcg-vilant 25 mcg inhalat.powder (Trelegy Ellipta) ipratropium 0.5 mg-albuterol 3 mg 3 ml inhalation QIDP PRN shortness 09/24/24 12/02/24 (2.5 mg base)/3 mL nebulization of breath or wheezing soln lisinopril 40 mg tablet 40 mg PO DAILY 09/24/24 12/02/24 trazodone 150 mg tablet 300 mg PO HS 09/24/24 12/02/24 aspirin 81 mg tablet,delayed 81 mg PO DAILY 12/02/24 12/02/24 release bupropion HCl 200 mg tablet,12 hr 400 mg PO DAILY 12/02/24 12/02/24 sustained-release metformin 500 mg tablet 500 mg PO BID 12/02/24 12/02/24 metoprolol succinate 25 mg 12.5 mg PO DAILY 12/02/24 12/02/24 tablet,extended release 24 hr ondansetron 4 mg disintegrating 4 mg PO Q4H PRN nausea, vomiting 12/02/24 12/02/24 tablet oxybutynin chloride 5 mg tablet 5 mg PO BID 12/02/24 12/02/24 ropinirole 4 mg tablet 4 mg PO DAILY 12/02/24 12/02/24 Previous Rx's ?Medication ?Instructions ?Recorded lancets (Accu-Chek Softclix #200 ea 05/16/24 Lancets) blood-glucose meter (Accu-Chek #1 ea 05/26/24 Guide Glucose Meter) cholecalciferol (vitamin D3) 1,250 1,250 mcg PO WEEKLY #12 caps 05/26/24 mcg (50,000 unit) capsule spironolactone 25 mg tablet 25 mg PO DAILY #90 tabs 07/06/24 meloxicam 15 mg tablet 15 mg PO DAILY PRN Moderate Pain 09/26/24 (Scale Score 5-6) #30 tabs blood sugar diagnostic (Accu-Chek #50 strips 10/31/24 Guide test strips) atorvastatin 40 mg tablet 40 mg PO HS #90 tabs 11/01/24 semaglutide 0.25 mg or 0.5 mg (2 0.5 mg (0.374 mL) SQ WEEKLY #1.5 mL 11/01/24 mg/1.5 mL) subcutaneous pen injector torsemide 20 mg tablet 60 mg (3 x 20 mg) PO BID 30 days 11/22/24 #180 tabs evolocumab 140 mg/mL subcutaneous 140 mg SQ Q2W #2 mL 11/24/24 pen injector (Meli Dowling) diclofenac sodium 1 % topical gel 2 g topical QID #100 grams 11/30/24 Allergies Allergy/AdvReac Type Severity Reaction Status Date / Time adhesive tape (ADHESIVE TAPE) Allergy Unknown Blister Verified 11/22/24 14:36 hydromorphone (From DILAUDID) Allergy Unknown Hypotension Verified 11/22/24 14:36 nickel (NICKEL) Allergy Unknown Blister Verified 11/22/24 14:36 PFSH <KEVON Coronaod - Last Filed: 12/02/24 20:30> [facility] Disclaimer: The information contained in this section may have been updated after the patient was seen, as this information can be updated by other users. Medical History Abdominal pain UTI (urinary tract infection) Hospital discharge follow-up Establishing care with new doctor, encounter for Restless leg Glaucoma Arthritis of both knees Urinary incontinence Unspecified asthma, uncomplicated Tear of meniscus of knee Pre-diabetes Diastolic CHF, acute on chronic Pulmonary hypertension Elevated left ventricular end-diastolic pressure (LVEDP) Asthma exacerbation Sleep apnea History of COVID-19 COPD (chronic obstructive pulmonary disease) Asthma Abscess of groin, right Acute exacerbation of chronic obstructive airways disease Left against medical advice Dependent on wheelchair Assistance needed for continence Incisional hernia Complex large recurrent abdominal wall hernia (essentially with loss of domain) and focal skin ulceration Lower leg pain Knee pain Vaginal bleeding Perimenopausal Cellulitis Hypothyroidism Dizziness Chest pain Sinusitis Tobacco abuse counseling Tobacco abuse HONEY (obstructive sleep apnea) Ventral hernia Dyspnea Depression Pharyngitis due to Streptococcus species Epigastric pain Gastritis Strep throat HTN (hypertension) Hypothyroidism (acquired) TIA (transient ischemic attack) COPD exacerbation Paresthesias Shortness of breath Acute bronchitis Tobacco abuse COPD (chronic obstructive pulmonary disease) Infiltrate of lung present on chest x-ray Atelectasis of right lung Cough Upper respiratory infection Surgical History History of lateral meniscus repair of right knee Pt is unsure if it was lateral or medial H/O tubal ligation Hx of cholecystectomy H/O hernia repair History of colon resection Family History Mother Hypertension Diabetes Father Cancer Social History (Updated 12/02/24 @ 21:43 by Nini Gonzalez RN) Smoking Status: Never smoker years smoked: 38 smoking status stop date: 3 months ago quit status: has quit before second hand exposure: Yes alcohol intake: never substance use type: denies use current occupational status: unemployed Travel in the last 8 weeks?: None household members: family and children housing: other lives independently: No marital status: legally number of children: 4 education level: other caffeine: Yes do you feel safe at home: Yes victim of physical abuse: No victim of emotional abuse: No victim of sexual abuse: No Have you lived/traveled outside [place] in past 30 days?: No Contact w/someone who lives/traveled outside [place] past 30 days?: No Exposure to someone with infectious disease in past 14 days?: No Do you have a fever (greater than 100.4 F or 38 C)?: No Have you tested positive for COVID-19?: No Exposed to someone with COVID-19 in past 14 days?: No Do you have a sore throat?: No Do you have a cough?: No Do you have any weakness?: No Are you experiencing any nausea/vomitting?: No Do you have any diarrhea?: No Are you experiencing any unusual bleeding?: No Do you have any muscle aches/pain?: No Do you have any abdominal pain?: No Are you experiencing loss of taste or smell?: No Other Medical History Have you received the Flu Vaccine for this season: No Have you received the Pneumonia Vaccine: No <KEVON Coronado - Last Filed: 12/02/24 20:30> ROS Obtained: Yes All systems reviewed & no additional complaints except as documented Physical Exam <KEVON Coronado - Last Filed: 12/02/24 20:30> General General appearance: alert, in no apparent distress and obese Comment: Morbidly obese female, no acute distress Head Head exam: atraumatic and normocephalic Eye Eye exam: Present PERRL and EOMI ENT ENT exam: Present mucous membranes moist Neck Neck exam: Present normal inspection Chest Chest inspection: Present normal inspection and symmetric chest wall rise Respiratory Respiratory exam: Present normal lung sounds bilaterally; Absent respiratory distress, wheezes or stridor Cardiovascular Cardiovascular exam: Present normal rhythm and bradycardia Abdominal Exam Abdominal exam: Present soft and mass; Absent tenderness, guarding, rebound or rigidity Comment: Prior surgical incision noted over the mid abdomen, with mass, unsure of body habitus, but no tenderness palpation. Extremities Exam Extremities exam: Present normal inspection Neurological Exam Neurological exam: Present alert and oriented X3 Psychiatric Psychiatric exam: Present normal affect Skin Skin exam: Present warm, dry and other (Bilateral lower extremity edema/lymphedema) Medical Decision Making <KEVON Coronado - Last Filed: 12/02/24 20:30> Medical Records Medical records reviewed: Yes I reviewed the patient's medical records. Screening: Per USPSTF and CDC recommendations, given the prevalence of disease in our region, it is our hospital?s policy to screen for HIV and viral Hepatitis for all patients aged 18 and over and those with ongoing risk factors. Woodrow Inquiry Pt receiving controlled substance: No Woodrow was queried for this patient: No Vital Signs: 12/02/24 17:57 12/02/24 18:00 12/02/24 18:04 Temperature 97.9 F Temperature Source Oral Pulse Rate 57 L 55 L Pulse Rate [Left Radial] 55 L Respiratory Rate 18 16 17 Blood Pressure 172/53 H 166/71 H Blood Pressure [Right Arm] 166/71 H Blood Pressure Mean [Right Arm] 102 Blood Pressure Source Blood Pressure Position 02 Sat by Pulse Oximetry 98 98 99 Oxygen Delivery Method Nasal Cannula Nasal Cannula Nasal Cannula Oxygen Flow Rate (LPM) 2 12/02/24 18:30 12/02/24 19:01 12/02/24 19:30 Temperature Temperature Source Pulse Rate 57 L 43 L 70 Pulse Rate [Left Radial] Respiratory Rate 15 12 15 Blood Pressure 164/75 H 140/75 154/69 H Blood Pressure [Right Arm] Blood Pressure Mean [Right Arm] Blood Pressure Source Blood Pressure Position 02 Sat by Pulse Oximetry 96 97 98 Oxygen Delivery Method Nasal Cannula Oxygen Flow Rate (LPM) 3 12/02/24 20:01 12/02/24 20:27 12/02/24 21:00 Temperature Temperature Source Pulse Rate 75 Pulse Rate [Left Radial] Respiratory Rate 19 Blood Pressure 135/84 Blood Pressure [Right Arm] Blood Pressure Mean [Right Arm] Blood Pressure Source Blood Pressure Position 02 Sat by Pulse Oximetry 100 Oxygen Delivery Method Nasal Cannula Nasal Cannula Oxygen Flow Rate (LPM) 2 2 12/02/24 21:09 Temperature 98 F Temperature Source Oral Pulse Rate 62 Pulse Rate [Left Radial] Respiratory Rate 22 Blood Pressure 167/65 H Blood Pressure [Right Arm] Blood Pressure Mean [Right Arm] Blood Pressure Source Automatic Cuff Blood Pressure Position Supine 02 Sat by Pulse Oximetry Oxygen Delivery Method Room Air Oxygen Flow Rate (LPM) Lab Data Lab results reviewed: Yes I reviewed the patient's lab results. Lab Results 12/02/24 17:54: WBC 7.6, RBC 3.81 L, Hgb 10.5 L, Hct 34.3 L, MCV 90.0, MCH 27.6, MCHC 30.6 L, RDW 16.7, Plt Count 340, MPV 9.7, Neut % (Auto) 62.2, Lymph % (Auto) 27.9, [place] % (Auto) 5.8, Eos % (Auto) 2.9, Baso % (Auto) 0.5, Neut # (Auto) 4.7, Lymph # (Auto) 2.1, [place] # (Auto) 0.4, Eos # (Auto) 0.2, Baso # (Auto) 0.0, PT 10.9, INR 0.98, APTT 25.4, D-Dimer 1.14 H, Sodium 133 L, Potassium 3.7, Chloride 91 L, Carbon Dioxide 39 H, Anion Gap 6.7, BUN 15, C reatinine 1.10 H, Estimated Creat Clear 47, Estimated GFR 51 L, Est GFR ( Amer) 62, Glucose 133 H, Calcium 9.1, Magnesium 1.6, Total Bilirubin 0.4, AST 29, ALT 21, Alkaline Phosphatase 96, Troponin I < 0.01, NT-Pro-B Natriuret Pep 21.7, Total Protein 7.5, Albumin 3.9, Globulin 3.6 H, Albumin/Globulin Ratio 1.1, Lipase 50, TSH 37.80 H, Thyroxine (T4) 1.7 L 12/02/24 18:25: Urine Color Yellow, Urine Appearance Clear, Urine pH 6.5, Ur Specific Reading 1.010, Urine Protein Negative, Urine Glucose (UA) Negative, Urine Ketones Negative, Urine Blood Negative, Urine Nitrate Negative, Urine Bilirubin Negative, Urine Urobilinogen 0.2, Ur Leukocyte Esterase Negative, Urine RBC Occasional, Urine WBC 3-5, Ur Squamous Epith Cells 3-5, Ur Transition Epith Cell Occ, Urine Bacteria None 12/02/24 19:52: VBG pH 7.38, VBG pCO2 65.2 H, VBG pO2 37.3, VBG HCO3 37.9 H, VBG Total CO2 39.9 H, VBG O2 Saturation 67.2, VBG Base Excess 12.8 H, VBG Lactic Acid 2.1 H 12/02/24 20:49: Troponin I < 0.01 12/02/24 17:54 12/02/24 17:54 Orders (Tests/Meds): ED MEDICATIONS Generic Name Dose Route Start Last Admin Trade Name Freq PRN Reason Stop Dose Admin Acetaminophen 650 mg 12/02/24 20:24 Acetaminophen 325mg Tab PO 01/01/25 20:23 Q4HP PRN Fever or Mild Pain (1-3) Heparin Sodium (Porcine) 5,000 unit 12/02/24 21:00 12/02/24 21:48 Heparin Sodium 5,000 Unit/Ml Vial SUBCUT 01/01/25 20:59 5,000 unit TID LINDSEY Administration Insulin Human Lispro 0 unit 12/02/24 21:00 12/02/24 21:56 Humalog 100 Units/Ml 10ml Vial (Ssi) SUBCUT 01/01/25 20:59 Not Given ACHS [facility] Protocol Levothyroxine Sodium 50 mcg 12/02/24 20:20 12/02/24 21:47 Levothyroxine Sodium 100 Mcg Vial IV 01/01/25 20:19 50 mcg DAILYDM LINDSEY Administration Ondansetron HCl 4 mg 12/02/24 20:24 Ondansetron 4mg/2ml Vial IV 01/01/25 20:23 Q8HP PRN Nausea ORDERS Category Date Time Status Cardiology Consult [Consult to Cardiology] [CONS] Cons 12/02/24 20:28 Active Routine XR chest portable Stat Exams 12/02/24 17:42 Completed Basic Metabolic Panel AMLAB Lab 12/03/24 06:00 Ordered Complete Blood Count Auto Diff AMLAB Lab 12/03/24 06:00 Ordered Complete Blood Count Auto Diff Stat Lab 12/02/24 17:54 Completed Comprehensive Metabolic Panel Stat Lab 12/02/24 17:54 Completed D-Dimer Stat Lab 12/02/24 17:54 Completed Lipase Stat Lab 12/02/24 17:54 Completed Magnesium AMLAB Lab 12/03/24 06:00 Ordered Magnesium Stat Lab 12/02/24 17:54 Completed NT Pro Brain Natriuretic Pep. Stat Lab 12/02/24 17:54 Completed PT INR [Prothrombin Time INR] Stat Lab 12/02/24 17:54 Completed PTT [Activated Partial Thrombo Time] Stat Lab 12/02/24 17:54 Completed Phosphorous AMLAB Lab 12/03/24 06:00 Ordered T4 (Thyroxine) Stat Lab 12/02/24 17:54 Completed TSH [Thyroid Stimulating Hormone] Stat Lab 12/02/24 17:54 Completed Troponin I Q3H Lab 12/02/24 20:49 Completed Troponin I Q3H Lab 12/02/24 23:45 Ordered Troponin I Stat Lab 12/02/24 17:54 Completed UA [Urinalysis and Microscopic] Routine Lab 12/02/24 18:25 Completed VBG [Venous Blood Gas] Stat RT 12/02/24 19:52 Completed EKG Request [ECG Request] Daily Y 12/03/24 06:00 Ordered Medical Decision Narrative: 54-year-old female presents emergency department with chest pain shortness of breath episode of bradycardia, differential diagnose include but not limited to, cardiac arrhythmia, electrolyte disturbance, ACS, pulmonary hypertension, pulmonary edema, PE, pneumonia, medication noncompliance, medication side effect among others. I discussed this patient's case with the attending physician Dr. Arguelles Will obtain basic laboratory studies, chest x-ray, D-dimer lipase magnesium level proBNP PT/INR/PTT, troponin, urinalysis, EKG, CBC is notable for hemoglobin of 10.5, hematocrit 34.3 CMP is notable for mild hyponatremia at 133, hypercapnia at 39, creatinine is mildly elevated at 1.1, PT/INR within normal limits D-dimer is elevated at 1.14, however utilizing age-adjusted D-dimer, criteria VTE is unlikely proBNP is within normal limits. Urinalysis unremarkable no nitrites no leukocyte esterase T4 is decreased at 1.7. TSH is elevated at 37.8, I reviewed the patient's chest x-ray along with corresponding radiologic report, no definitive acute process, questional mild central vascular congestion/pulmonary arterial hypertension, limited exam. Will add on VBG. Attempted to call cardiology on-call at 7:41 PM, no answer we will try again. Dr. David of cardiology returned my call at approximately 7:42 PM, he is in agreement with the current admission plan/treatment plan, he recommends pacemaker implantation most likely on Thursday, possible thyroid panel, for further evaluation of the patient's thyroid studies. Discussed patient case with the admitting hospitalist provider Rosa Fowler APRN person at approximately 7:47 PM, she is agree with current mission plan/treatment plan. Discussed need for admission with the patient and family at the bedside patient family agree with current treatment plan/admission plan for symptomatic bradycardia. Reviewed the patient's VBG, normal pH, elevated pCO2 of 65.2, bicarb is minimally elevated at 37.9, venous lactic acid elevated 2.1. Of note, when asking patient about taking her medications appropriately, patient states that she may have missed a few doses of her thyroid medication. <Slime Arguelles, DO - Last Filed: 12/02/24 23:12> Vital Signs: 12/02/24 17:57 12/02/24 18:00 12/02/24 18:04 Temperature 97.9 F Temperature Source Oral Pulse Rate 57 L 55 L Pulse Rate [Left Radial] 55 L Respiratory Rate 18 16 17 Blood Pressure 172/53 H 166/71 H Blood Pressure [Right Arm] 166/71 H Blood Pressure Mean [Right Arm] 102 Blood Pressure Source Blood Pressure Position 02 Sat by Pulse Oximetry 98 98 99 Oxygen Delivery Method Nasal Cannula Nasal Cannula Nasal Cannula Oxygen Flow Rate (LPM) 2 12/02/24 18:30 12/02/24 19:01 12/02/24 19:30 Temperature Temperature Source Pulse Rate 57 L 43 L 70 Pulse Rate [Left Radial] Respiratory Rate 15 12 15 Blood Pressure 164/75 H 140/75 154/69 H Blood Pressure [Right Arm] Blood Pressure Mean [Right Arm] Blood Pressure Source Blood Pressure Position 02 Sat by Pulse Oximetry 96 97 98 Oxygen Delivery Method Nasal Cannula Oxygen Flow Rate (LPM) 3 12/02/24 20:01 12/02/24 20:27 12/02/24 21:00 Temperature Temperature Source Pulse Rate 75 Pulse Rate [Left Radial] Respiratory Rate 19 Blood Pressure 135/84 Blood Pressure [Right Arm] Blood Pressure Mean [Right Arm] Blood Pressure Source Blood Pressure Position 02 Sat by Pulse Oximetry 100 Oxygen Delivery Method Nasal Cannula Nasal Cannula Oxygen Flow Rate (LPM) 2 2 12/02/24 21:09 Temperature 98 F Temperature Source Oral Pulse Rate 62 Pulse Rate [Left Radial] Respiratory Rate 22 Blood Pressure 167/65 H Blood Pressure [Right Arm] Blood Pressure Mean [Right Arm] Blood Pressure Source Automatic Cuff Blood Pressure Position Supine 02 Sat by Pulse Oximetry Oxygen Delivery Method Room Air Oxygen Flow Rate (LPM) Lab Data Lab Results 12/02/24 17:54: WBC 7.6, RBC 3.81 L, Hgb 10.5 L, Hct 34.3 L, MCV 90.0, MCH 27.6, MCHC 30.6 L, RDW 16.7, Plt Count 340, MPV 9.7, Neut % (Auto) 62.2, Lymph % (Auto) 27.9, [place] % (Auto) 5.8, Eos % (Auto) 2.9, Baso % (Auto) 0.5, Neut # (Auto) 4.7, Lymph # (Auto) 2.1, [place] # (Auto) 0.4, Eos # (Auto) 0.2, Baso # (Auto) 0.0, PT 10.9, INR 0.98, APTT 25.4, D-Dimer 1.14 H, Sodium 133 L, Potassium 3.7, Chloride 91 L, Carbon Dioxide 39 H, Anion Gap 6.7, BUN 15, C reatinine 1.10 H, Estimated Creat Clear 47, Estimated GFR 51 L, Est GFR ( Amer) 62, Glucose 133 H, Calcium 9.1, Magnesium 1.6, Total Bilirubin 0.4, AST 29, ALT 21, Alkaline Phosphatase 96, Troponin I < 0.01, NT-Pro-B Natriuret Pep 21.7, Total Protein 7.5, Albumin 3.9, Globulin 3.6 H, Albumin/Globulin Ratio 1.1, Lipase 50, TSH 37.80 H, Thyroxine (T4) 1.7 L 12/02/24 18:25: Urine Color Yellow, Urine Appearance Clear, Urine pH 6.5, Ur Specific Reading 1.010, Urine Protein Negative, Urine Glucose (UA) Negative, Urine Ketones Negative, Urine Blood Negative, Urine Nitrate Negative, Urine Bilirubin Negative, Urine Urobilinogen 0.2, Ur Leukocyte Esterase Negative, Urine RBC Occasional, Urine WBC 3-5, Ur Squamous Epith Cells 3-5, Ur Transition Epith Cell Occ, Urine Bacteria None 12/02/24 19:52: VBG pH 7.38, VBG pCO2 65.2 H, VBG pO2 37.3, VBG HCO3 37.9 H, VBG Total CO2 39.9 H, VBG O2 Saturation 67.2, VBG Base Excess 12.8 H, VBG Lactic Acid 2.1 H 12/02/24 20:49: Troponin I < 0.01 Orders (Tests/Meds): ED MEDICATIONS Generic Name Dose Route Start Last Admin Trade Name Freq PRN Reason Stop Dose Admin Acetaminophen 650 mg 12/02/24 20:24 Acetaminophen 325mg Tab PO 01/01/25 20:23 Q4HP PRN Fever or Mild Pain (1-3) Heparin Sodium (Porcine) 5,000 unit 12/02/24 21:00 12/02/24 21:48 Heparin Sodium 5,000 Unit/Ml Vial SUBCUT 01/01/25 20:59 5,000 unit TID LINDSEY Administration Insulin Human Lispro 0 unit 12/02/24 21:00 12/02/24 21:56 Humalog 100 Units/Ml 10ml Vial (Ssi) SUBCUT 01/01/25 20:59 Not Given ACHS LINDSEY Protocol Levothyroxine Sodium 50 mcg 12/02/24 20:20 12/02/24 21:47 Levothyroxine Sodium 100 Mcg Vial IV 01/01/25 20:19 50 mcg DAILYDM LINDSEY Administration Ondansetron HCl 4 mg 12/02/24 20:24 Ondansetron 4mg/2ml Vial IV 01/01/25 20:23 Q8HP PRN Nausea ORDERS Category Date Time Status Cardiology Consult [Consult to Cardiology] [CONS] Cons 12/02/24 20:28 Active Routine XR chest portable Stat Exams 12/02/24 17:42 Completed Basic Metabolic Panel AMLAB Lab 12/03/24 06:00 Ordered Complete Blood Count Auto Diff AMLAB Lab 12/03/24 06:00 Ordered Complete Blood Count Auto Diff Stat Lab 12/02/24 17:54 Completed Comprehensive Metabolic Panel Stat Lab 12/02/24 17:54 Completed D-Dimer Stat Lab 12/02/24 17:54 Completed Lipase Stat Lab 12/02/24 17:54 Completed Magnesium AMLAB Lab 12/03/24 06:00 Ordered Magnesium Stat Lab 12/02/24 17:54 Completed NT Pro Brain Natriuretic Pep. Stat Lab 12/02/24 17:54 Completed PT INR [Prothrombin Time INR] Stat Lab 12/02/24 17:54 Completed PTT [Activated Partial Thrombo Time] Stat Lab 12/02/24 17:54 Completed Phosphorous AMLAB Lab 12/03/24 06:00 Ordered T4 (Thyroxine) Stat Lab 12/02/24 17:54 Completed TSH [Thyroid Stimulating Hormone] Stat Lab 12/02/24 17:54 Completed Troponin I Q3H Lab 12/02/24 20:49 Completed Troponin I Q3H Lab 12/02/24 23:45 Ordered Troponin I Stat Lab 12/02/24 17:54 Completed UA [Urinalysis and Microscopic] Routine Lab 12/02/24 18:25 Completed VBG [Venous Blood Gas] Stat RT 12/02/24 19:52 Completed EKG Request [ECG Request] Daily Y 12/03/24 06:00 Ordered ECG Data Tracing #1: I reviewed this ECG and interpreted as documented below: Sinus bradycardia with a ventricular to 47 bpm. Secondary Mobitz type II. Right bundle branch block. No STEMI ECG initial impression date: 12/02/24 ECG initial impression time: 17:40 Critical Care <KEVON Coronado - Last Filed: 12/02/24 20:30> Critical Care Time Critical Care Time: No <Slime Arguelles DO - Last Filed: 12/02/24 23:12> Critical Care Time Critical Care Time: Yes Attestation: On 12/02/24, the high probability of a clinically significant, sudden or life threatening deterioration of the following system(s) required my full and direct attention, intervention and personal management. The time I documented below is in addition to time spent performing reported procedures but includes the following listed in this critical care notation. Total Time Total Critical Care Time: 35
[2024-12-02 18:02] LABS: Basophils % 0.5 % (0.1-2.0); Eosinophils # 0.2 Kmm3 (0.0-0.4); Eosinophils % 2.9 % (0.1-12.0); Hematocrit 34.3 % (37.0-47.0); Hemoglobin 10.5 g/dL (12.2-16.2); Immature Granulocytes # 0.05 10^3uL; Immature Granulocytes % 0.7 %; Lymphocytes # 2.1 K/mm3 (0.7-4.5); Lymphocytes % 27.9 % (10-50); Mean Corpuscular HGB Conc 30.6 g/dL (31.8-35.4); Mean Corpuscular Hemoglobin 27.6 pg (27.0-31.2); Mean Platelet Volume 9.7 fl (7.4-10.4); Monocytes # 0.4 K/mm3 (0.1-1.0); Monocytes % 5.8 % (1.7-9.3); Neutrophils # 4.7 K/mm3 (1.8-7.8); Neutrophils % 62.2 % (37.0-80.0); Nucleated Red Blood Cells # 0 10^3/uL; Nucleated Red Blood Cells % 0 %; Platelet Count 340 K/mm3 (142-424); Red Blood Count 3.81 M/mm3 (4.20-5.40); Red Cell Distribution Width 16.7 % (11.5-17.5); Red Cell Distribution Width-SD 54.4 fL; White Blood Count 7.6 K/mm3 (4.8-10.8)
[2024-12-02 18:17] LABS: Albumin Level 3.9 g/dl (3.5-5.0); Chloride 91 mmol/L (98-107); Sodium 133 mmol/L (136-145)
[2024-12-02 18:18] LABS: Potassium 3.7 mmoL/L (3.5-5.1)
[2024-12-02 18:20] LABS: Alanine Aminotransferase 21 U/L (12-78); Albumin/Globulin Ratio 1.1 (1.1-1.8); Alkaline Phosphatase 96 U/L (38-126); Anion Gap 6.7 mEq/L (5-15); Aspartate Amino Transferase 29 U/L (14-36); Bilirubin,Total 0.4 mg/dl (0.2-1.3); Blood Urea Nitrogen 15 mg/dl (7-17); Calcium 9.1 mg/dl (8.4-10.2); Carbon Dioxide 39 mmol/L (22.0-30.0); Creatinine Clearance Estimated 47 mL/min (50-200); Estimated Glomerular Filt Rate 51 ml/min (>60); GFR (African American) 62 ML/MIN (>60); Globulin 3.6 g/dL (1.3-3.2); Glucose 133 mg/dl (74-100); INR 0.98 (0.9-1.1); Prothrombin Time 10.9 seconds (10.1-12.5); Total Protein,Serum 7.5 g/dl (6.3-8.2)
[2024-12-02 18:21] LABS: Lipase 50 U/L (23-300)
[2024-12-02 18:22] LABS: Magnesium 1.6 mg/dl (1.6-2.3)
[2024-12-02 18:25] LABS: Activated Partial Thrombo Time 25.4 seconds (22.8-30.6)
[2024-12-02 18:33] LABS: Appearance,Urine CLEAR (Clear); Bilirubin,Urine Negative (Negative); Blood, Urine Negative (Negative); Color,Urine YELLOW (Yellow); Glucose,Urine (UA) Negative (Negative); Ketones,Urine Negative (Negative); Leukocyte Esterase,Urine Negative (Negative); Microscopic, Urine URINE MICROSCOPIC (MICROSCOPIC); Nitrate,Urine Negative (Negative); PH,Urine 6.5 (5.0-8.5); Protein,Urine Negative (Negative); Urobilinogen,Urine 0.2 EU/dl (0.2)
[2024-12-02 18:34] LABS: Troponin I < 0.01 ng/ml (0.00-0.034)
[2024-12-02 18:35] LABS: NT Pro Brain Natriuretic Pep. 21.7 pg/mL (0-125)
[2024-12-02 18:36] LABS: D-Dimer 1.14 ug/mL (0.0-0.5)
[2024-12-02 18:43] LABS: T4 (Thyroxine) 1.7 ug/dl (5.53-11.0)
[2024-12-02 18:49] LABS: RBC,Urine Occasional #/hpf (0-3); Transitional Epi Cells,Urine OCC #/lpf (0-3)
[2024-12-02 19:55] LABS: VBG Base Excess 12.8 mmol/L (-2.4-2.3); VBG HCO3 37.9 mmol/L (23-30); VBG Oxygen Saturation 67.2 % (50-70); VBG PH 7.38 mmol/L (7.31-7.41); VBG PO2 37.3 mmol/L (28-40); VBG Total CO2 39.9 mmol/L (23-27)
[2024-12-02 19:58] LABS: Lactate Venous 2.1 mmol/L (0.4-2.0); VBG PCO2 65.2 mmol/L (35-51)
--- NOTE | 2024-12-02 20:22 | P.HP_ITS ---
<Statement entered by Hernan Barros MD - 12/03/24 08:22> Rounded on patient after nurse practitioner. Personally examined and interviewed patient. Agree with exam findings and care plan as documented. History of Present Illness *Admission Date: 12/02/24 *Reason for visit:: Dizziness *History of present illness: This is a 54-year-old with past medical history of COPD, T2DM, morbid obesity, hypothyroidism, diastolic heart failure, HONEY, tobacco abuse who presents emergency department today with complaints of dizziness, general malaise and fatigue and intermittent chest pain. She reports calling 911 due to the shortness of breath. EMS noticed bradycardia and felt like it was some type of heart block. She was given a dose of atropine en route with improvement in symptomology. She denies any cough or congestion, fever or abdominal pain. Does endorse bilateral lower extremity swelling that is no worse than her typical. Emergency department workup notable for secondary type II Mobitz block on EKG. Bradycardia with heart rate in the mid 40s to 50s. No ischemia noted on EKG. TSH elevated at 34. D-dimer 1.14. Workup otherwise negative. Cardiology was consulted and given bradycardic heart rate with type II Mobitz, will likely need pacemaker, Thursday morning. In the meantime we will admit on telemetry. She is admitted to hospitalist service at this time. [facility] Disclaimer: The information contained in this section may have been updated after the patient was seen, as this information can be updated by other users. Medical History Abdominal pain UTI (urinary tract infection) Hospital discharge follow-up Establishing care with new doctor, encounter for Restless leg Glaucoma Arthritis of both knees Urinary incontinence Unspecified asthma, uncomplicated Tear of meniscus of knee Pre-diabetes Diastolic CHF, acute on chronic Pulmonary hypertension Elevated left ventricular end-diastolic pressure (LVEDP) Asthma exacerbation Sleep apnea History of COVID-19 COPD (chronic obstructive pulmonary disease) Asthma Abscess of groin, right Acute exacerbation of chronic obstructive airways disease Left against medical advice Dependent on wheelchair Assistance needed for continence Incisional hernia Complex large recurrent abdominal wall hernia (essentially with loss of domain) and focal skin ulceration Lower leg pain Knee pain Vaginal bleeding Perimenopausal Cellulitis Hypothyroidism Dizziness Chest pain Sinusitis Tobacco abuse counseling Tobacco abuse HONEY (obstructive sleep apnea) Ventral hernia Dyspnea Depression Pharyngitis due to Streptococcus species Epigastric pain Gastritis Strep throat HTN (hypertension) Hypothyroidism (acquired) TIA (transient ischemic attack) COPD exacerbation Paresthesias Shortness of breath Acute bronchitis Tobacco abuse COPD (chronic obstructive pulmonary disease) Infiltrate of lung present on chest x-ray Atelectasis of right lung Cough Upper respiratory infection Surgical History History of lateral meniscus repair of right knee Pt is unsure if it was lateral or medial H/O tubal ligation Hx of cholecystectomy H/O hernia repair History of colon resection Family History Mother Hypertension Diabetes Father Cancer Social History (Updated 12/02/24 @ 21:43 by Nini Gonzalez RN) Smoking Status: Never smoker years smoked: 38 smoking status stop date: 3 months ago quit status: has quit before second hand exposure: Yes alcohol intake: never substance use type: denies use current occupational status: unemployed Travel in the last 8 weeks?: None household members: family and children housing: other lives independently: No marital status: legally number of children: 4 education level: other caffeine: Yes do you feel safe at home: Yes victim of physical abuse: No victim of emotional abuse: No victim of sexual abuse: No Have you lived/traveled outside [place] in past 30 days?: No Contact w/someone who lives/traveled outside [place] past 30 days?: No Exposure to someone with infectious disease in past 14 days?: No Do you have a fever (greater than 100.4 F or 38 C)?: No Have you tested positive for COVID-19?: No Exposed to someone with COVID-19 in past 14 days?: No Do you have a sore throat?: No Do you have a cough?: No Do you have any weakness?: No Are you experiencing any nausea/vomitting?: No Do you have any diarrhea?: No Are you experiencing any unusual bleeding?: No Do you have any muscle aches/pain?: No Do you have any abdominal pain?: No Are you experiencing loss of taste or smell?: No Other Medical History Have you received the Flu Vaccine for this season: No Have you received the Pneumonia Vaccine: No Review of Systems Review of Systems Review of systems:: pertinent systems reviewed and negative unless documented below Review of systems (narrative): Negative except for HPI Meds Home Medications and Allergies Home Medications ?Medication ?Instructions ?Recorded ?Confirmed ?Type calcium carbonate (Calcium 600) 600 mg PO DAILY 10/03/23 12/02/24 History lancets (Accu-Chek Softclix #200 ea 05/16/24 11/22/24 Rx Lancets) blood-glucose meter (Accu-Chek #1 ea 05/26/24 11/22/24 Rx Guide Glucose Meter) cholecalciferol (vitamin D3) 1,250 1,250 mcg PO WEEKLY #12 caps 05/26/24 12/02/24 Rx mcg (50,000 unit) capsule spironolactone 25 mg tablet 25 mg PO DAILY #90 tabs 07/06/24 12/02/24 Rx levothyroxine 150 mcg tablet 300 mcg PO DAILY 08/16/24 12/02/24 History albuterol sulfate 90 mcg/actuation 2 puff inhalation Q4HP PRN SOA 09/24/24 0 12/02/24 History aerosol inhaler cyanocobalamin (vitamin B-12) 1,000 mcg PO DAILY 09/24/24 12/02/24 History 1,000 mcg tablet fluticasone fur. 100 mcg-umeclid 1 inh inhalation DAILY 09/24/24 12/02/24 History 62.5 mcg-vilant 25 mcg inhalat.powder (Trelegy Ellipta) ipratropium 0.5 mg-albuterol 3 mg 3 ml inhalation QIDP PRN shortness 09/24/24 12/02/24 History (2.5 mg base)/3 mL nebulization of breath or wheezing soln lisinopril 40 mg tablet 40 mg PO DAILY 09/24/24 12/02/24 History trazodone 150 mg tablet 300 mg PO HS 09/24/24 12/02/24 History meloxicam 15 mg tablet 15 mg PO DAILY PRN Moderate Pain 09/26/24 12/02/24 Rx (Scale Score 5-6) #30 tabs blood sugar diagnostic (Accu-Chek #50 strips 10/31/24 11/22/24 Rx Guide test strips) atorvastatin 40 mg tablet 40 mg PO HS #90 tabs 11/01/24 12/02/24 Rx semaglutide 0.25 mg or 0.5 mg (2 0.5 mg (0.374 mL) SQ WEEKLY #1.5 mL 11/01/24 12/02/24 Rx mg/1.5 mL) subcutaneous pen injector torsemide 20 mg tablet 60 mg (3 x 20 mg) PO BID 30 days 11/22/24 12/02/24 Rx #180 tabs evolocumab 140 mg/mL subcutaneous 140 mg SQ Q2W #2 mL 11/24/24 12/02/24 Rx pen injector (Meli Dowling) diclofenac sodium 1 % topical gel 2 g topical QID #100 grams 11/30/24 12/02/24 Rx aspirin 81 mg tablet,delayed 81 mg PO DAILY 12/02/24 12/02/24 History release bupropion HCl 200 mg tablet,12 hr 400 mg PO DAILY 12/02/24 12/02/24 History sustained-release metformin 500 mg tablet 500 mg PO BID 12/02/24 12/02/24 History metoprolol succinate 25 mg 12.5 mg PO DAILY 12/02/24 12/02/24 History tablet,extended release 24 hr ondansetron 4 mg disintegrating 4 mg PO Q4H PRN nausea, vomiting 12/02/24 12/02/24 History tablet oxybutynin chloride 5 mg tablet 5 mg PO BID 12/02/24 12/02/24 History ropinirole 4 mg tablet 4 mg PO DAILY 12/02/24 12/02/24 History New Prescriptions to Start Prescriptions: Allergies Allergy/AdvReac Type Severity Reaction Status Date / Time adhesive tape (ADHESIVE TAPE) Allergy Unknown Blister Verified 11/22/24 14:36 hydromorphone (From DILAUDID) Allergy Unknown Hypotension Verified 11/22/24 14:36 nickel (NICKEL) Allergy Unknown Blister Verified 11/22/24 14:36 Exam Data for Last 24 hours Vital signs and Labs for Last 24 Hours: Temp Pulse Resp BP Pulse Ox O2 Del Method O2 Flow Rate 97.9 F 57 L 15 164/75 H 96 Nasal Cannula 3 12/02/24 18:04 12/02/24 18:30 12/02/24 18:30 12/02/24 18:30 12/02/24 18:30 12/02/24 18:30 12/02/24 18:30 Laboratory Results - last 24 hr 12/02/24 17:54: WBC 7.6, RBC 3.81 L, Hgb 10.5 L, Hct 34.3 L, MCV 90.0, MCH 27.6, MCHC 30.6 L, RDW 16.7, Plt Count 340, MPV 9.7, Neut % (Auto) 62.2, Lymph % (Auto) 27.9, [place] % (Auto) 5.8, Eos % (Auto) 2.9, Baso % (Auto) 0.5, Neut # (Auto) 4.7, Lymph # (Auto) 2.1, [place] # (Auto) 0.4, Eos # (Auto) 0.2, Baso # (Auto) 0.0, PT 10.9, INR 0.98, APTT 25.4, D-Dimer 1.14 H, Sodium 133 L, Potassium 3.7, Chloride 91 L, Carbon Dioxide 39 H, Anion Gap 6.7, BUN 15, Creatinine 1.10 H, Estimated Creat Clear 47, Estimated GFR 51 L, Est GFR ( Amer) 62, Glucose 133 H, Calcium 9.1, Magnesium 1.6, Total Bilirubin 0.4, AST 29, ALT 21, Alkaline Phosphatase 96, Troponin I < 0.01, NT-Pro-B Natriuret Pep 21.7, Total Protein 7.5, Albumin 3.9, Globulin 3.6 H, Albumin/Gl obulin Ratio 1.1, Lipase 50, TSH 37.80 H, Thyroxine (T4) 1.7 L 12/02/24 18:25: Urine Color Yellow, Urine Appearance Clear, Urine pH 6.5, Ur Specific [place] 1.010, Urine Protein Negative, Urine Glucose (UA) Negative, Urine Ketones Negative, Urine Blood Negative, Urine Nitrate Negative, Urine Bilirubin Negative, Urine Urobilinogen 0.2, Ur Leukocyte Esterase Negative, Urine RBC Occasional, Urine WBC 3-5, Ur Squamous Epith Cells 3-5, Ur Transition Epith Cell Occ, Urine Bacteria None 12/02/24 19:52: VBG pH 7.38, VBG pCO2 65.2 H, VBG pO2 37.3, VBG HCO3 37.9 H, VBG Total CO2 39.9 H, VBG O2 Saturation 67.2, VBG Base Excess 12.8 H, VBG Lactic Acid 2.1 H I & O for Last 24 hours: Intake & Output 11/29/24 11/30/24 12/01/24 12/02/24 23:59 23:59 23:59 23:59 Weight 204.117 kg Constitutional Constitutional: no acute distress, morbidly obese and cooperative *Routine HEENT Exam Head: Present normocephalic Eye: Present EOMI and PERRL ENT: Present mucous membranes moist *Routine Neck Exam Neck: Present supple; Absent lymphadenopathy *Routine Respiratory Exam Respiratory: Present prolonged expiratory phase, wheezes and diminished air movement *Routine Cardiovascular Exam Cardiovascular: Present bradycardia *Routine Abdominal Exam Abdominal: Present soft and normoactive bowel sounds; Absent tenderness Comments: Hernia noted *Routine Rectal Exam Rectal:: deferred *Routine Genitalia Exam Genitalia:: deferred *Routine Extremities Exam Extremities: Absent cyanosis, clubbing or edema *Routine Skin Exam Skin: Present warm; Absent rash *Routine Neurological Exam Neurological: Present alert and oriented X3 Assessment and Plan *Assessment and plan (1) Bradycardia: Status: Acute Category: Medical Code(s): R00.1 - Bradycardia, unspecified (2) Chronic diastolic heart failure: Status: Acute Category: Medical Code(s): I50.32 - Chronic diastolic (congestive) heart failure (3) COPD exacerbation: Status: Acute Category: Medical Code(s): J44.1 - Chronic obstructive pulmonary disease with (acute) exacerbation (4) Hypothyroidism: Status: Acute Category: Medical Code(s): E03.9 - Hypothyroidism, unspecified (5) Morbid obesity: Status: Acute Category: Medical Code(s): E66.01 - Morbid (severe) obesity due to excess calories (6) HTN (hypertension): Status: Acute Qualifiers: Hypertension type: unspecified Qualified Code(s): I10 - Essential (primary) hypertension Category: Medical Code(s): I10 - Essential (primary) hypertension (7) Type 2 diabetes mellitus: Status: Acute Category: Medical Code(s): E11.9 - Type 2 diabetes mellitus without complications Plan #Bradycardia Mobitz type II noted on EKG. Cardiology consulted. Not requiring pacing at this time. Mild shortness of breath noted but otherwise stable. Will use atropine as needed for symptomatic relief as this helped her earlier Pacer pads in place Will treat elevated TSH to ensure this is not causative factor Cardiology consult #Hypothyroidism TSH of 34. Patient reports taking levothyroxine 300 mics daily but is noncompliant. States that she normally misses 3 to 4 days a week. Will initiate IV dosing 50 mg daily now to see if she has symptomatic relief from her bradycardia #Chronic diastolic heart failure Bilateral lower extremity edema, +2 pitting. Patient reports this is her baseline. BNP pending. Chest x-ray without significant evidence of overload Does have chest pressure and mild shortness of breath. Will dose with IV Bumex now and monitor for improvement #COPD, exacerbation #Acute on chronic respiratory failure with hypoxia Mild wheezing noted with increased work of breathing. Currently on 2 L nasal cannula Continue scheduled nebulizer treatments Will initiate prednisone Continue Trelegy #T2DM Continue sliding scale insulin #HONEY Continue BiPAP at bedtime and naps #Anxiety Continue home medication #Morbid Obesity Severe, BMI of 70. Complicates all aspects of care
--- NOTE | 2024-12-02 20:38 | PC.NURSE ---
Report called to the floor for admission to room 212
[2024-12-02 21:21] LABS: Troponin I < 0.01 ng/ml (0.00-0.034)
[2024-12-02] MEDS: LEVOTHYROXINE SODIUM 100 MCG VIAL 50 MCG IV (21:47)
[2024-12-02] MEDS: HEPARIN SODIUM 5,000 UNIT/ML VIAL 5000 UNIT SUBCUT (21:48)
[2024-12-02] MEDS: BUMETANIDE 1MG/4ML VIAL 0.5 MG IV (23:49)
[2024-12-02 23:56] LABS: Reflex Lactic Add Lactic Reflex
[2024-12-03] VITALS (13 sets, daily range): BP systolic 103–152; BP diastolic 55–81; PULSE 43–80; RESP 16–26; TEMP 36.6–37.2; O2SAT 95–100; BMI 76.4
[2024-12-03 00:01] LABS: NT Pro Brain Natriuretic Pep. 29.1 pg/mL (0-125)
[2024-12-03 00:07] LABS: Troponin I < 0.01 ng/ml (0.00-0.034)
--- NOTE | 2024-12-03 00:11 | ECG_ITS ---
APPROVED REPORT Exam: Resting ECG HR:69 bpm ECG Measurements Heart Rate 69 AXES AK 195 P 78 QRSd 173 QRS -49 QT 444 T 73 QTc 462 Conclusion SINUS RHYTHM RIGHT BUNDLE BRANCH BLOCK [120+ ms QRS DURATION, UPRIGHT V1, 40+ ms S IN I/aVL/V4/V5/V6] LEFT ANTERIOR FASCICULAR BLOCK [QRS AXIS <= -45, QR IN I, RS IN II] LEFT VENTRICULAR HYPERTROPHY AND ST-T CHANGE [VOLTAGE CRITERIA PLUS ST/T ABNORMALITY] POSSIBLE ANTERIOR MYOCARDIAL INFARCTION , PROBABLY OLD [30 ms Q WAVE IN V3/V4, OR R < 0.2 mV IN V4] ABNORMAL ECG UNCONFIRMED REPORT Electronically signed by : Fabrizio Rosales MD 12/15/2024 07:31:35
[2024-12-03] MEDS: IPRATROPIUM/ALBUTEROL 3 ML NEB IH ×5 (00:14→23:42)
[2024-12-03 01:11] LABS: Lactic Acid Follow Up (RFLX 1) 2.5 mmol/L (0.7-2.1)
[2024-12-03 01:12] LABS: Troponin I < 0.01 ng/ml (0.00-0.034)
[2024-12-03 02:48] LABS: Reflex Lactic (2 hrs) Add Lactic Reflex
[2024-12-03 03:39] LABS: Lactic Acid Follow up (RFLX 2) 1.8 mmol/L (0.7-2.1)
[2024-12-03 03:52] LABS: Troponin I < 0.01 ng/ml (0.00-0.034)
--- NOTE | 2024-12-03 04:19 | PC.NURSE ---
Pt AOx4. Was having some shortness of air earlier and stated she felt like there was pressure on her chest. Notified provider. Gave one time dose of bumex as ordered. An EKG was obtained and patient was put on CPAP. She is denying pain. Respirations even and unlabored. Bed is low, locked, and call light is in reach.
[2024-12-03 05:07] LABS: POC Glucose,Bedside 98 (70-110)
[2024-12-03 05:26] LABS: POC Glucose,Bedside 121 (70-110)
[2024-12-03] MEDS: LEVOTHYROXINE SODIUM 100 MCG VIAL 50 MCG IV ×2 (06:00→08:40)
[2024-12-03 07:30] LABS: Basophils # 0.1 K/mm3 (0-0.2); Basophils % 0.7 % (0.1-2.0); Eosinophils # 0.2 Kmm3 (0.0-0.4); Eosinophils % 2.8 % (0.1-12.0); Hematocrit 34.4 % (37.0-47.0); Hemoglobin 10.3 g/dL (12.2-16.2); Immature Granulocytes # 0.04 10^3uL; Immature Granulocytes % 0.5 %; Lymphocytes # 2.6 K/mm3 (0.7-4.5); Lymphocytes % 30.7 % (10-50); Mean Corpuscular HGB Conc 29.9 g/dL (31.8-35.4); Mean Corpuscular Volume 90.3 fl (81-99); Mean Platelet Volume 9.9 fl (7.4-10.4); Monocytes # 0.5 K/mm3 (0.1-1.0); Monocytes % 5.7 % (1.7-9.3); Neutrophils % 59.6 % (37.0-80.0); Nucleated Red Blood Cells # 0 10^3/uL; Nucleated Red Blood Cells % 0 %; Platelet Count 340 K/mm3 (142-424); Red Blood Count 3.81 M/mm3 (4.20-5.40); Red Cell Distribution Width 16.8 % (11.5-17.5); Red Cell Distribution Width-SD 55.6 fL; White Blood Count 8.4 K/mm3 (4.8-10.8)
[2024-12-03 07:38] LABS: Anion Gap 8.4 mEq/L (5-15); Blood Urea Nitrogen 15 mg/dl (7-17); Carbon Dioxide 36 mmol/L (22.0-30.0); Chloride 92 mmol/L (98-107); Creatinine Clearance Estimated 45 mL/min (50-200); Estimated Glomerular Filt Rate 51 ml/min (>60); GFR (African American) 62 ML/MIN (>60); Glucose 174 mg/dl (74-100); Magnesium 1.9 mg/dl (1.6-2.3); Phosphorous 2.4 mg/dl (2.5-4.5); Potassium 3.4 mmoL/L (3.5-5.1); Sodium 133 mmol/L (136-145)
[2024-12-03 07:50] LABS: Troponin I < 0.01 ng/ml (0.00-0.034)
[2024-12-03] MEDS: ASPIRIN EC 81MG TABLET 81 MG PO (08:40)
[2024-12-03] MEDS: predniSONE 20MG TAB 20 MG PO (08:40)
[2024-12-03] MEDS: HEPARIN SODIUM 5,000 UNIT/ML VIAL 5000 UNIT SUBCUT ×3 (08:40→20:41)
--- NOTE | 2024-12-03 10:04 | HMH.PHAINT1 ---
Pharmacy Intervention Comments: MEDICATION RECONCILIATION COMPLETE USING EXTERNAL PHARMACY FILL HISTORY AND RECENT CARDIOLOGY OFFICE VISIT NOTE.
--- NOTE | 2024-12-03 11:33 | HMH.PTEV ---
Physical Therapy Evaluation Rehab PT IP Evaluation Start: 12/02/24 21:43 Freq: ONCE Status: Active Protocol: Document 12/03/24 11:18 PDESEROUX (Rec: 12/03/24 11:33 [email or web address] [id number]) Subjective/History History History Pt. is a 54 year old female who presents to 2nd floor Inpatient [facility] secondary to c/o fluctuation of H.R. Pt. vocalizes waking up yesterday( 12/02/24) feeling great, then stated all of the sudden she felt funny w/ c/o SOB and chest P!, therefore, EMS were called. Pt. reports while in the ambulance her H.R. was a 42 BPM. Pt. reports she is feeling better today, but c/o symptoms w/ exertion. Pt. reports having surgery for a defib. w/ Frankie on Thursday( 12/05/24). Pt. reports she lives in trailer w/ her two grandchildren. Pt. reports having a ramp that is almost finished to transition in/out of home. Pt. reports, I do not walk secondary to BLE knee buckling secondary to bone on bone. Pt. reports baseline mode of transportation is W/C. Pt. reports needing assistance as long as I have something to hold on, from grandchildren and FWW to stand pivot from recliner into W/C. PMH includes COPD, T2DM, morbid obesity, hypothyroidism, diastolic heart failure, HONEY, tobacco abuse. Subjective Subjective Pt. reports, I'm getting a defibrillator on Thursday. New diagnosis of cancer in past 12 No months? [facility] How much help from another person do you currently need... Turning from your back to your side A lot while in a flat bed without using bedrails? Moving from lying on back to sitting on A lot the side of a flat bed without using bedrails? Moving to and from a bed to a chair ( A lot including a wheelchair)? Standing up from a chair using your arms A lot ? (e.g., wheelchair, bedside chair) Walking in hospital room? Total Climbing 3-5 steps with a railing? Total Mobility Score 10 [address] [facility] Mobility Calculator Mobility 4 Move to chair/ commode Rehab PT IP Eval Objective Appearance Patient Behavior Patient Baseline Patient Orientation Patient Baseline Difficulty following instructions none Speech Pattern Baseline Function Ambulation Patient Able to Ambulate No Balance Ability to Arise Able, uses arms to help Sitting Balance Steady, safe Standing Balance Steady, wide stance Dynamic Sitting Balance Ability Good Dynamic Standing Balance Ability Good Transfers Bed Transfer Ability Supervision/Stand by Chair Transfer Ability Contact Guard/Hand Hold Sit to Stand Bed Transfer Ability Contact Guard/Hand Hold Sit to Stand Chair Transfer Ability Contact Guard/Hand Hold ROM All Extremities PT ROM Status WFL MMT All Extremities PT MMT WFL Rehab PT IP prob,goals,plan Problems Date of Evaluation: 12/03/24 Rehab Potential Rehab Potential Innapropriate for Skilled Therapy Equipment Needs Assistive Devices Standard Walker Discharge Plan PT Discharge Plan Pt. is currently functional mobility baseline status, and is appropriate to discharge home w/ family assist, DME, and Home Health Physical Therapy S/P D/C from [facility] once deemed medically stable per MD . Eval Complexity Eval Charge Codes 27690 - Moderate Complexity PHYSICIAN CERTIFICATION: I certify the specified therapy services for Stacey George are required, authorized, and reviewed every 30 days.
[2024-12-03] MEDS: humaLOG 100 UNITS/ML 10ML VIAL (SSI) SUBCUT ×2 (11:46→17:14)
[2024-12-03 11:55] LABS: POC Glucose,Bedside 173 (70-110)
--- NOTE | 2024-12-03 12:13 | ECG_ITS ---
APPROVED REPORT Exam: Resting ECG HR:65 bpm ECG Measurements Heart Rate 65 AXES QRSd 165 QRS -46 QT 458 T 62 QTc 470 Conclusion Sinus bradycardia RIGHT BUNDLE BRANCH BLOCK [120+ ms QRS DURATION, UPRIGHT V1, 40+ ms S IN I/aVL/V4/V5/V6] LEFT ANTERIOR FASCICULAR BLOCK [QRS AXIS <= -45, QR IN I, RS IN II] MINIMAL VOLTAGE CRITERIA FOR LVH, CONSIDER NORMAL VARIANT [MEETS CRITERIA IN ONE OF: R(aVL), S(V1), R(V5), R(V5/V6)+S(V1)] POSSIBLE ANTERIOR MYOCARDIAL INFARCTION , PROBABLY OLD [30 ms Q WAVE IN V3/V4, OR R < 0.2 mV IN V4] ABNORMAL ECG UNCONFIRMED REPORT Electronically signed by : Fabrizio Rosales MD 12/04/2024 08:28:28
--- NOTE | 2024-12-03 15:31 | P.PN_ITS ---
Subjective *Date: 12/03/24 *Time: 19:18 Interval history: Patient feeling somewhat better this morning. Remains on 2 L, wears 2 L all the time. Denies any further episodes of chest pain, nausea or vomiting. No worsening shortness of breath. Repeat EKG this morning with persistent 2-1 AV block. Discussions with cardiology as patient's weight makes her prohibitive Medical Exam Vital signs and Labs for Last 24 Hours: Vital Signs Temp Pulse Pulse Resp BP BP Pulse Ox 12/03/24 13:00 12/03/24 12:00 50 L 12/03/24 11:45 97.9 F 67 17 139/73 96 12/03/24 11:14 43 L 12/03/24 11:14 62 12/03/24 11:14 95 12/03/24 11:00 12/03/24 09:00 12/03/24 08:00 12/03/24 08:00 98.1 F 52 L 19 134/81 97 12/03/24 06:45 12/03/24 06:10 71 12/03/24 06:10 74 12/03/24 06:10 97 12/03/24 05:00 12/03/24 04:00 98.8 F 72 18 116/62 98 12/03/24 03:00 12/03/24 01:20 12/03/24 01:00 12/03/24 00:09 61 12/03/24 00:09 66 12/03/24 00:09 96 12/03/24 00:00 50 L 12/03/24 00:00 98.5 F 60 17 127/55 L 100 12/02/24 23:00 12/02/24 21:17 42 L 13 124/46 L 99 12/02/24 21:09 98 F 62 22 167/65 H 12/02/24 21:00 12/02/24 20:27 12/02/24 20:01 75 19 135/84 100 12/02/24 19:30 70 15 154/69 H 98 12/02/24 19:01 43 L 12 140/75 97 12/02/24 18:30 57 L 15 164/75 H 96 12/02/24 18:04 97.9 F 55 L 17 166/71 H 99 12/02/24 18:00 55 L 16 166/71 H 98 12/02/24 17:57 57 L 18 172/53 H 98 O2 Del Method O2 Flow Rate FiO2 12/03/24 13:00 Nasal Cannula 2 12/03/24 12:00 12/03/24 11:45 12/03/24 11:14 12/03/24 11:14 12/03/24 11:14 Nasal Cannula 2 12/03/24 11:00 Nasal Cannula 2 12/03/24 09:00 Nasal Cannula 2 12/03/24 08:00 Nasal Cannula 2 12/03/24 08:00 Nasal Cannula 12/03/24 06:45 Nasal Cannula 1 12/03/24 06:10 12/03/24 06:10 12/03/24 06:10 Nasal Cannula 1.5 12/03/24 05:00 Nasal Cannula 2 12/03/24 04:00 Nasal Cannula 2 12/03/24 03:00 Nasal Cannula 2 12/03/24 01:20 30 12/03/24 01:00 Nasal Cannula 2 12/03/24 00:09 12/03/24 00:09 12/03/24 00:09 Nasal Cannula 1.5 12/03/24 00:00 12/03/24 00:00 Room Air 12/02/24 23:00 Nasal Cannula 2 12/02/24 21:17 Nasal Cannula 12/02/24 21:09 Room Air 12/02/24 21:00 Nasal Cannula 2 12/02/24 20:27 Nasal Cannula 2 12/02/24 20:01 12/02/24 19:30 12/02/24 19:01 12/02/24 18:30 Nasal Cannula 3 12/02/24 18:04 Nasal Cannula 2 12/02/24 18:00 Nasal Cannula 12/02/24 17:57 Nasal Cannula Intake and Output 12/02/24 12/03/24 12/03/24 23:59 07:59 15:59 Intake Total 840 / 840 Output Total 550 / 550 Balance -550 / 290 840 / 290 Intake: Intake, Oral Amount 840 / 840 Output: Output, Urine Amount 550 / 550 Other: Number of Unmeasured Voids 0 Weight 204.117 kg 195.725 kg Patient Weight 12/03/24 23:59 Weight 195.725 kg Laboratory Results - last 24 hr 12/02/24 00:40: Lactate 2.5 H 12/02/24 17:54: WBC 7.6, RBC 3.81 L, Hgb 10.5 L, Hct 34.3 L, MCV 90.0, MCH 27.6, MCHC 30.6 L, RDW 16.7, Plt Count 340, MPV 9.7, Neut % (Auto) 62.2, Lymph % (Auto) 27.9, [place] % (Auto) 5.8, Eos % (Auto) 2.9, Baso % (Auto) 0.5, Neut # (Auto) 4.7, Lymph # (Auto) 2.1, [place] # (Auto) 0.4, Eos # (Auto) 0.2, Baso # (Auto) 0.0, PT 10.9, INR 0.98, APTT 25.4, D-Dimer 1.14 H, Sodium 133 L, Potassium 3.7, Chloride 91 L, Carbon Dioxide 39 H, Anion Gap 6.7, BUN 15, Creatinine 1.10 H, Estimated Creat Clear 47, Estimated GFR 51 L, Est GFR ( Amer) 62, Glucose 133 H, Calcium 9.1, Magnesium 1.6, Total Bilirubin 0.4, AST 29, ALT 21, Alkaline Phosphatase 96, Troponin I < 0.01, NT-Pro-B Natriuret Pep 21.7, Total Protein 7.5, Albumin 3.9, Globulin 3.6 H, Albumin/Globulin Ratio 1.1, Lipase 50, TSH 37.80 H, Thyroxine (T4) 1.7 L 12/02/24 18:25: Urine Color Yellow, Urine Appearance Clear, Urine pH 6.5, Ur Specific [place] 1.010, Urine Protein Negative, Urine Glucose (UA) Negative, Urine Ketones Negative, Urine Blood Negative, Urine Nitrate Negative, Urine Bilirubin Negative, Urine Urobilinogen 0.2, Ur Leukocyte Esterase Negative, Urine RBC Occasional, Urine WBC 3-5, Ur Squamous Epith Cells 3-5, Ur Transition Epith Cell Occ, Urine Bacteria None 12/02/24 19:52: VBG pH 7.38, VBG pCO2 65.2 H, VBG pO2 37.3, VBG HCO3 37.9 H, VBG Total CO2 39.9 H, VBG O2 Saturation 67.2, VBG Base Excess 12.8 H, VBG Lactic Acid 2.1 H 12/02/24 20:49: Troponin I < 0.01 12/02/24 21:51: POC Glucose 98 12/02/24 23:35: Troponin I < 0.01, NT-Pro-B Natriuret Pep 29.1 12/03/24 00:40: Troponin I < 0.01 12/03/24 03:15: Lactate 1.8, Troponin I < 0.01 12/03/24 05:18: POC Glucose 121 H 12/03/24 06:40: WBC 8.4, RBC 3.81 L, Hgb 10.3 L, Hct 34.4 L, MCV 90.3, MCH 27.0, MCHC 29.9 L, RDW 16.8, Plt Count 340, MPV 9.9, Neut % (Auto) 59.6, Lymph % (Auto) 30.7, [place] % (Auto) 5.7, Eos % (Auto) 2.8, Baso % (Auto) 0.7, Neut # (Auto) 5.0, Lymph # (Auto) 2.6, [place] # (Auto) 0.5, Eos # (Auto) 0.2, Baso # (Auto) 0.1, Sodium 133 L, Potassium 3.4 L, Chloride 92 L, Carbon Dioxide 36 H, Anion Gap 8.4, BUN 15, Creatinine 1.10 H, Estimated Creat Clear 45, Estimated GFR 51 L, Est GFR ( Amer) 62, Glucose 174 H D, Calcium 9.0, Phosphorus 2.4 L, Magnesium 1.9 D, Troponin I < 0.01 12/03/24 11:43: POC Glucose 173 H I & O for Labs for Last 24 Hours: Intake & Output 11/30/24 12/01/24 12/02/24 12/03/24 23:59 23:59 23:59 23:59 Intake Total 840 / 840 Output Total 550 / 550 Balance 290 / 290 Weight 204.117 kg 195.725 kg Constitutional: Present no acute distress, morbidly obese, chronically ill appearing and cooperative Head: Present atraumatic and normocephalic ENT: Present normal exam Respiratory: Present distant breath sounds and normal respiratory effort; Absent respiratory distress, rhonchi, wheezes or crackles Cardiac: Present Bradycardia Comment:: Regular rhythm GI: Present soft, distention and normal bowel sounds; Absent tenderness Comments:: Large abdominal hernia Extremities: Present normal inspection, full ROM and edema (1+ in lower extremity) Skin: Present intact; Absent erythema Neuro: Present Grossly Intact, alert, awake, oriented x 3 and moves all extremities Assessment and Plan *Assessment and plan (1) Bradycardia: Status: Acute Category: Medical Code(s): R00.1 - Bradycardia, unspecified (2) Second degree heart block: Status: Acute Category: Medical Code(s): I44.1 - Atrioventricular block, second degree (3) Chronic diastolic heart failure: Status: Acute Category: Medical Code(s): I50.32 - Chronic diastolic (congestive) heart failure (4) COPD exacerbation: Status: Acute Category: Medical Code(s): J44.1 - Chronic obstructive pulmonary disease with (acute) exacerbation (5) Hypothyroidism: Status: Acute Category: Medical Code(s): E03.9 - Hypothyroidism, unspecified (6) Morbid obesity: Status: Acute Category: Medical Code(s): E66.01 - Morbid (severe) obesity due to excess calories (7) HTN (hypertension): Status: Acute Qualifiers: Hypertension type: unspecified Qualified Code(s): I10 - Essential (primary) hypertension Category: Medical Code(s): I10 - Essential (primary) hypertension (8) Type 2 diabetes mellitus: Status: Acute Category: Medical Code(s): E11.9 - Type 2 diabetes mellitus without complications (9) Morbid obesity with BMI of 70 and over, adult: Status: Acute Category: Medical Code(s): E66.01 - Morbid (severe) obesity due to excess calories; Z68.45 - Body mass index [BMI] 70 or greater, adult Plan Morbidly obese 54-year-old female who presents with weakness, found to have second-degree high-grade AV block. Admitted for monitoring. Discussed case with cardiology, necessitating transfer to tertiary center for leadless pacemaker. [facility] consulted, has agreed to accept the patient. Will proceed with transfer in the morning. Problems addressed as follows: # Secondary heart block, high risk for decompensation. #Bradycardia Mobitz type II noted on EKG. Cardiology consulted, discussed case at length, consulted with EP at [facility]. Recommend leadless pacemaker. Due to the limitations of our [employer] table, patient not appropriate to be intervened on at our facility due to her weight. Will proceed with transfer in the morning to [facility] for further management. - Shortness of breath stable. On 2 to 3 L oxygen. Goal sats greater 90% - Kidney function normal with BUN 15, creatinine 1.1. Electrolytes stable, being replaced per protocol with potassium 3.4, magnesium 1.9. Will use atropine as needed for symptomatic relief as this helped her earlier Pacer pads in place Holding home metoprolol #Hypothyroidism TSH of 34. Patient reports taking levothyroxine 300 mcg daily but is noncompliant. States that she normally misses 3 to 4 days a week. Will initiate IV levothyroxine 100 mcg daily. Resume oral levothyroxine in the morning - Repeat CBC, CMP, magnesium ordered for the morning #Chronic diastolic heart failure Bilateral lower extremity edema, +2 pitting. Patient reports this is her baseline. BNP 29. Echo from 2 months ago reviewed showing normal LV function, dilated RV. Could not calculate RVSP. Resume home torsemide 60 mg twice daily #COPD, exacerbation #Acute on chronic respiratory failure with hypoxia Mild wheezing noted with increased work of breathing. Currently on 2 L nasal cannula Continue scheduled nebulizer treatments Will initiate prednisone Continue Trelegy #T2DM Continue sliding scale insulin #HONEY Continue BiPAP at bedtime and naps #Anxiety Continue home medication #Morbid Obesity Severe, BMI of 70. Complicates all aspects of care
[2024-12-03] MEDS: ACETAMINOPHEN 325MG TAB 650 MG PO (15:33)
[2024-12-03] MEDS: TORSEMIDE 20MG TABLET 60 MG PO (15:33)
--- NOTE | 2024-12-03 17:41 | PC.NURSE ---
NO ACUTE CHANGES SINCE PREVIOUS ASSESSMENT. PT DID SIT UP TO CHAIR FOR A COUPLE HOURS THIS SHIFT. STILL REQUIRING O2 SUPPORT.
[2024-12-03] MEDS: buPROPion HCL 100 MG TABLET 200 MG PO (20:41)
[2024-12-03] MEDS: ATORVASTATIN 40MG TABLET 40 MG PO (20:41)
[2024-12-03 21:47] LABS: POC Glucose,Bedside 147 (70-110)
[2024-12-04] VITALS: BP 139/71; PULSE 40; PULSE 70; RESP 14; TEMP 36.4; O2SAT 100
--- NOTE | 2024-12-04 02:50 | PC.NURSE ---
Pt AOx4, pleasant. Denies pain or any additional needs. VSS. Glucose WNL. Hernández cath clean, patent, and draining with no kinks in tubing. Currently resting in bed with eyes open. Respirations even and unlabored. Bed is low, locked, and call light within reach.
[2024-12-04 03:49] LABS: Appearance,Urine CLEAR (Clear); Bilirubin,Urine Negative (Negative); Blood, Urine 3+ (Negative); Color,Urine YELLOW (Yellow); Glucose,Urine (UA) Negative (Negative); Ketones,Urine Negative (Negative); Leukocyte Esterase,Urine 1+ (Negative); Nitrate,Urine Negative (Negative); Protein,Urine Negative (Negative); Specific Gravity, Urine <= 1.005 (1.005-1.030); Urobilinogen,Urine 0.2 EU/dl (0.2)
[2024-12-04 03:50] LABS: Microscopic, Urine URINE MICROSCOPIC (MICROSCOPIC)
[2024-12-04 04:00] VITALS: BP 125/60; PULSE 107; PULSE 50; TEMP 36.9; O2SAT 97; BMI 76.3
[2024-12-04 04:16] LABS: Bacteria,Urine Trace /lpf
[2024-12-04 05:18] LABS: POC Glucose,Bedside 129 (70-110)
[2024-12-04] MEDS: LEVOTHYROXINE SODIUM 100 MCG VIAL IV (05:59)
[2024-12-04] MEDS: FLUTICASONE/UMECLIDIN/VILANTER 100/62.5/25MCG INHALER 1 PUFF IH (06:17)
[2024-12-04] MEDS: IPRATROPIUM/ALBUTEROL 3 ML NEB IH ×2 (06:17→13:00)
[2024-12-04 06:18] VITALS: PULSE 68; PULSE 71; O2SAT 98
--- NOTE | 2024-12-04 07:00 | EXP.DC.SUM ---
General Admission date:: 12/02/24 Discharge date: 12/04/24 HPI HPI HPI: This is a 54-year-old with past medical history of COPD, T2DM, morbid obesity, hypothyroidism, diastolic heart failure, HONEY, tobacco abuse who presents emergency department today with complaints of dizziness, general malaise and fatigue and intermittent chest pain. She reports calling 911 due to the shortness of breath. EMS noticed bradycardia and felt like it was some type of heart block. She was given a dose of atropine en route with improvement in symptomology. She denies any cough or congestion, fever or abdominal pain. Does endorse bilateral lower extremity swelling that is no worse than her typical. Emergency department workup notable for secondary type II Mobitz block on EKG. Bradycardia with heart rate in the mid 40s to 50s. No ischemia noted on EKG. TSH elevated at 34. D-dimer 1.14. Workup otherwise negative. Cardiology was consulted and given bradycardic heart rate with type II Mobitz, will likely need pacemaker, Thursday morning. In the meantime we will admit on telemetry. She is admitted to hospitalist service at this time. Hospital Course Hospital Course Hospital Course: Morbidly obese 54-year-old female who presents with weakness, found to have second-degree high-grade AV block. Admitted for monitoring. Discussed case with cardiology, necessitating transfer to tertiary center for leadless pacemaker. [facility] consulted, has agreed to accept the patient. Maintained dynamically stable. Feels fatigued from her bradycardia. Stable on baseline 2 L oxygen. Problems addressed as follows: # Secondary heart block, high risk for decompensation. #Bradycardia Mobitz type II noted on EKG. Cardiology consulted, discussed case at length, consulted with EP at [facility]. Recommend leadless pacemaker. Due to the limitations of our [employer] table, patient not appropriate to be intervened on at our facility due to her weight. Graciously accepted in transfer. Monitored on telemetry. Has done well with normotensive blood sugar 30/64. Heart rate 40s to 70s. Remains short of breath at baseline on her baseline 2 to 3 L oxygen with goal sats greater 90%. Kidney function otherwise normal with BUN 15, creatinine 1.0. Hemoglobin 10.3, chronic anemia. Overall stable. Did not receive any atropine. Pacer pads in place, did not require external pacing. Held home metoprolol and trazodone due to risk of impacting her heart rate/heart block. #Hypothyroidism TSH of 34. Patient reports taking levothyroxine 300 mcg daily but is noncompliant. States that she normally misses 3 to 4 days a week. Initially treated with IV levothyroxine. Resume 300 mcg daily dose. #Chronic diastolic heart failure Bilateral lower extremity edema, +2 pitting. Patient reports this is her baseline. BNP 29. Echo from 2 months ago reviewed showing normal LV function, dilated RV. Could not calculate RVSP. Resumed home torsemide 60 mg twice daily, good response with negative 6 L volume status during admission #COPD, exacerbation #Acute on chronic respiratory failure with hypoxia Mild wheezing noted with increased work of breathing. Currently on 2 L nasal cannula. Continued scheduled nebulizer treatments. Continue Trelegy #T2DM: A1c 6.3 in September. Treated with sliding scale insulin during admission. On semaglutide home. Resume regimen from home when appropriate #HONEY: Continue BiPAP at bedtime and naps #Anxiety: Continue home Wellbutrin 400 mg daily. Hold trazodone at night due to potential risk for arrhythmias #Morbid Obesity: Severe, BMI of 70. Complicates all aspects of care. Patient's body habitus prevents intervention in our [employer] due to limits of equipment and table Total time spent on discharge 38 minutes in counseling, documentation, chart review, and direct care with patient. Exam Data for Last 24 hours Vital signs and Labs for Last 24 Hours: Temp Pulse Resp BP Pulse Ox O2 Del Method O2 Flow Rate 98.4 F 68 14 125/60 98 Nasal Cannula 1 12/04/24 04:00 12/04/24 06:18 12/04/24 00:00 12/04/24 04:00 12/04/24 06:18 12/04/24 06:24 12/04/24 06:24 FiO2 30 12/03/24 01:20 Laboratory Results - last 24 hr 12/03/24 06:40: WBC 8.4, RBC 3.81 L, Hgb 10.3 L, Hct 34.4 L, MCV 90.3, MCH 27.0, MCHC 29.9 L, RDW 16.8, Plt Count 340, MPV 9.9, Neut % (Auto) 59.6, Lymph % (Auto) 30.7, [place] % (Auto) 5.7, Eos % (Auto) 2.8, Baso % (Auto) 0.7, Neut # (Auto) 5.0, Lymph # (Auto) 2.6, [place] # (Auto) 0.5, Eos # (Auto) 0.2, Baso # (Auto) 0.1, Sodium 133 L, Potassium 3.4 L, Chloride 92 L, Carbon Dioxide 36 H, Anion Gap 8.4, BUN 15, Creatinine 1.10 H, Estimated Creat Clear 45, Estimated GFR 51 L, Est GFR ( Amer) 62, Glucose 174 H D, Calcium 9.0, Phosphorus 2.4 L, Magnesium 1.9 D, Troponin I < 0.01 12/03/24 11:43: POC Glucose 173 H 12/03/24 21:31: POC Glucose 147 H 12/04/24 03:35: Urine Color Yellow, Urine Appearance Clear, Urine pH 6.0, Ur Specific [place] <= 1.005, Urine Protein Negative, Urine Glucose (UA) Negative, Urine Ketones Negative, Urine Blood 3+ A, Urine Nitrate Negative, Urine Bilirubin Negative, Urine Urobilinogen 0.2, Ur Leukocyte Esterase 1+ A, Urine RBC 5-10, Urine WBC 3-5, Ur Squamous Epith Cells None, Urine Bacteria Trace 12/04/24 05:08: POC Glucose 129 H I & O for Last 24 hours: Intake & Output 12/01/24 12/02/24 12/03/24 12/04/24 23:59 23:59 23:59 23:59 Intake Total 840 / 840 Output Total 2825 / 2825 2149 Balance -1984 / -2149 Weight 204.117 kg 195.725 kg 195.544 kg Constitutional Constitutional: no acute distress, morbidly obese, chronically ill appearing and cooperative *Routine HEENT Exam Head: Present normocephalic Eye: Present EOMI and PERRL ENT: Present mucous membranes moist *Routine Neck Exam Neck: Present supple; Absent lymphadenopathy *Routine Respiratory Exam Respiratory: Present distant breath sounds and diminished air movement; Absent rhonchi, wheezes or crackles *Routine Cardiovascular Exam Cardiovascular: Present bradycardia *Routine Abdominal Exam Abdominal: Present soft, normoactive bowel sounds and distended; Absent tenderness Comments: Large non incarcerated abdominal wall hernis left abdomen *Routine Rectal Exam Patient deferred: visual exam *Routine Exam Patient deferred: external exam *Routine Extremities Exam Extremities: Absent cyanosis, clubbing or edema *Routine Skin Exam Skin: Present intact and warm; Absent rash *Routine Neurological Exam Neurological: Present alert, oriented X3 and moving all extremities; Absent altered mental status Routine Psychiatric Exam Psychiatric: Present normal affect Results Data Completed and Pending Labs on day of discharge: Labs from last 24 hours 12/04/24 12/04/24 12/03/24 05:08 03:35 21:31 WBC RBC Hgb Hct MCV MCH MCHC RDW Plt Count MPV Neut % (Auto) Lymph % (Auto) [place] % (Auto) Eos % (Auto) Baso % (Auto) Neut # (Auto) Lymph # (Auto) [place] # (Auto) Eos # (Auto) Baso # (Auto) Sodium Potassium Chloride Carbon Dioxide Anion Gap BUN Creatinine Estimated Creat Clear Estimated GFR Est GFR ( Amer) Glucose POC Glucose 129 H 147 H Calcium Phosphorus Magnesium Troponin I Urine Color Yellow Urine Appearance Clear Urine pH 6.0 Ur Specific [place] <= 1.005 Urine Protein Negative Urine Glucose (UA) Negative Urine Ketones Negative Urine Blood 3+ A Urine Nitrate Negative Urine Bilirubin Negative Urine Urobilinogen 0.2 Ur Leukocyte Esterase 1+ A Urine RBC 5-10 Urine WBC 3-5 Ur Squamous Epith Cells None Urine Bacteria Trace 12/03/24 12/03/24 11:43 06:40 WBC 8.4 RBC 3.81 L Hgb 10.3 L Hct 34.4 L MCV 90.3 MCH 27.0 MCHC 29.9 L RDW 16.8 Plt Count 340 MPV 9.9 Neut % (Auto) 59.6 Lymph % (Auto) 30.7 [place] % (Auto) 5.7 Eos % (Auto) 2.8 Baso % (Auto) 0.7 Neut # (Auto) 5.0 Lymph # (Auto) 2.6 [place] # (Auto) 0.5 Eos # (Auto) 0.2 Baso # (Auto) 0.1 Sodium 133 L Potassium 3.4 L Chloride 92 L Carbon Dioxide 36 H Anion Gap 8.4 BUN 15 Creatinine 1.10 H Estimated Creat Clear 45 Estimated GFR 51 L Est GFR ( Amer) 62 Glucose 174 H D POC Glucose 173 H Calcium 9.0 Phosphorus 2.4 L Magnesium 1.9 D Troponin I < 0.01 Urine Color Urine Appearance Urine pH Ur Specific [place] Urine Protein Urine Glucose (UA) Urine Ketones Urine Blood Urine Nitrate Urine Bilirubin Urine Urobilinogen Ur Leukocyte Esterase Urine RBC Urine WBC Ur Squamous Epith Cells Urine Bacteria DS: Diagnosis Discharge Diagnosis (1) Bradycardia: Status: Acute Code(s): R00.1 - Bradycardia, unspecified (2) Second degree heart block: Status: Acute Code(s): I44.1 - Atrioventricular block, second degree (3) Chronic diastolic heart failure: Status: Acute Code(s): I50.32 - Chronic diastolic (congestive) heart failure (4) COPD exacerbation: Status: Acute Code(s): J44.1 - Chronic obstructive pulmonary disease with (acute) exacerbation (5) Hypothyroidism: Status: Acute Code(s): E03.9 - Hypothyroidism, unspecified (6) Morbid obesity: Status: Acute Code(s): E66.01 - Morbid (severe) obesity due to excess calories (7) HTN (hypertension): Status: Acute Code(s): I10 - Essential (primary) hypertension Qualifiers: Hypertension type: unspecified Qualified Code(s): I10 - Essential (primary) hypertension (8) Type 2 diabetes mellitus: Status: Acute Code(s): E11.9 - Type 2 diabetes mellitus without complications (9) Morbid obesity with BMI of 70 and over, adult: Status: Acute Code(s): E66.01 - Morbid (severe) obesity due to excess calories; Z68.45 - Body mass index [BMI] 70 or greater, adult Meds Home Medications and Allergies Home Medications ?Medication ?Instructions ?Recorded ?Confirmed ?Type calcium carbonate (Calcium 600) 600 mg PO DAILY 10/03/23 12/03/24 History cholecalciferol (vitamin D3) 1,250 1,250 mcg PO WEEKLY #12 caps 05/26/24 12/03/24 Rx mcg (50,000 unit) capsule spironolactone 25 mg tablet 25 mg PO DAILY #90 tabs 07/06/24 12/03/24 Rx levothyroxine 150 mcg tablet 300 mcg PO DAILYDM 08/16/24 12/03/24 History albuterol sulfate 90 mcg/actuation 2 puff inhalation Q4HP PRN 09/24/24 12/03/24 History aerosol inhaler Shortness Of Breath Or Wheezing cyanocobalamin (vitamin B-12) 1,000 mcg PO DAILY 09/24/24 12/03/24 History 1,000 mcg tablet fluticasone fur. 100 mcg-umeclid 1 inh inhalation DAILY 09/24/24 12/03/24 History 62.5 mcg-vilant 25 mcg inhalat.powder (Trelegy Ellipta) ipratropium 0.5 mg-albuterol 3 mg 3 ml inhalation QIDP PRN shortness 09/24/24 12/03/24 History (2.5 mg base)/3 mL nebulization of breath or wheezing soln lisinopril 40 mg tablet 40 mg PO DAILY 09/24/24 12/03/24 History trazodone 150 mg tablet 300 mg PO HS 09/24/24 12/03/24 History atorvastatin 40 mg tablet 40 mg PO HS #90 tabs 11/01/24 12/03/24 Rx semaglutide 0.25 mg or 0.5 mg (2 0.5 mg (0.374 mL) SQ WEEKLY #1.5 mL 11/01/24 12/03/24 Rx mg/1.5 mL) subcutaneous pen injector evolocumab 140 mg/mL subcutaneous 140 mg SQ Q2W #2 mL 11/24/24 12/03/24 Rx pen injector (Meli Dowling) aspirin 81 mg tablet,delayed 81 mg PO DAILY 12/02/24 12/03/24 History release bupropion HCl 200 mg tablet,12 hr 400 mg PO DAILY 12/02/24 12/03/24 History sustained-release metformin 500 mg tablet 500 mg PO BIDWMEAL 12/02/24 12/03/24 History ondansetron 4 mg disintegrating 4 mg PO Q4HP PRN nausea, vomiting 12/02/24 12/03/24 History tablet oxybutynin chloride 5 mg tablet 5 mg PO BID 12/02/24 12/03/24 History ropinirole 4 mg tablet 4 mg PO DAILY 12/02/24 12/03/24 History meloxicam 15 mg tablet 15 mg PO DAILYP PRN Moderate Pain 12/03/24 12/03/24 History (Scale Score 5-6) torsemide 20 mg tablet 60 mg PO BIDL 12/03/24 12/03/24 History New Prescriptions to Start Prescriptions: Allergies Allergy/AdvReac Type Severity Reaction Status Date / Time adhesive tape (ADHESIVE TAPE) Allergy Unknown Blister Verified 11/22/24 14:36 hydromorphone (From DILAUDID) Allergy Unknown Hypotension Verified 11/22/24 14:36 nickel (NICKEL) Allergy Unknown Blister Verified 11/22/24 14:36 Discharge Plan Disposition Patient Disposition: Xfer Short-Term Hosp Condition: Good Discharge Order Discharge Orders: Discharge Order (Routine); Ordered 12/04/24 Ordered By: Hernan Barros Follow up Plan Prescriptions/Medication Reconciliation: Continued levothyroxine 150 mcg tablet 300 mcg PO DAILYDM Patient Comments: TAKE TWO TABLETS BY MOUTH EVERY DAY IN THE MORNING cholecalciferol (vitamin D3) 1,250 mcg (50,000 unit) capsule 1,250 mcg PO WEEKLY Qty: 12 3RF spironolactone 25 mg tablet 25 mg PO DAILY Qty: 90 3RF atorvastatin 40 mg tablet 40 mg PO HS Qty: 90 1RF semaglutide 0.25 mg or 0.5 mg(2 mg/1.5 mL) pen injector 0.5 mg SQ WEEKLY Qty: 1.5 0RF Repatha SureClick 140 mg/mL pen injector 140 mg SQ Q2W Qty: 2 5RF calcium carbonate [Calcium 600] 600 mg calcium (1,500 mg) Tablet 600 mg PO DAILY oxybutynin chloride 5 mg tablet 5 mg PO BID ropinirole 4 mg tablet 4 mg PO DAILY metformin 500 mg tablet 500 mg PO BIDWMEAL aspirin 81 mg tablet,delayed release (DR/EC) 81 mg PO DAILY ondansetron 4 mg tablet,disintegrating 4 mg PO Q4HP PRN (Reason: nausea, vomiting) bupropion HCl 200 mg tablet sustained-release 12 hr 400 mg PO DAILY torsemide 20 mg tablet 60 mg PO BIDL meloxicam 15 mg tablet 15 mg PO DAILYP PRN (Reason: Moderate Pain (Scale Score 5-6)) cyanocobalamin (vitamin B-12) 1,000 mcg tablet 1,000 mcg PO DAILY Trelegy Ellipta 100-62.5-25 mcg blister with device 1 inh INHALATION DAILY Patient Comments: INHALE 1 PUFF BY MOUTH EVERY DAY --RINSE MOUTH AFTER USE-- ipratropium-albuterol 0.5 mg-3 mg(2.5 mg base)/3 mL solution for nebulization 3 ml inhalation QIDP PRN (Reason: shortness of breath or wheezing) albuterol sulfate 90 mcg/actuation HFA aerosol inhaler 2 puff inhalation Q4HP PRN (Reason: Shortness Of Breath Or Wheezing) trazodone 150 mg tablet 300 mg PO HS lisinopril 40 mg Tablet 40 mg PO DAILY Discontinued metoprolol succinate 25 mg tablet extended release 24 hr 12.5 mg PO DAILY Problem Reconciliation Problems Reviewed?: Yes Patient Discharge Instructions ACTIVITY: Continue current activity DIET: continue same diet Patient Instructions: DI for Bradycardia, Stop Light COPD, Stop Light Heart Failure Print Language: Irish Providers Primary Care Provider: Vahid Garcia Admit Provider: Hernan Barros Attending Provider: Hernan Barros
[2024-12-04 07:33] LABS: Basophils # 0.1 K/mm3 (0-0.2); Basophils % 0.6 % (0.1-2.0); Eosinophils # 0.1 Kmm3 (0.0-0.4); Eosinophils % 1.4 % (0.1-12.0); Hemoglobin 10.3 g/dL (12.2-16.2); Immature Granulocytes # 0.08 10^3uL; Immature Granulocytes % 0.8 %; Lymphocytes # 2.8 K/mm3 (0.7-4.5); Lymphocytes % 29.4 % (10-50); Mean Corpuscular HGB Conc 29.4 g/dL (31.8-35.4); Mean Corpuscular Hemoglobin 26.3 pg (27.0-31.2); Mean Corpuscular Volume 89.5 fl (81-99); Mean Platelet Volume 9.7 fl (7.4-10.4); Monocytes # 0.7 K/mm3 (0.1-1.0); Neutrophils # 5.7 K/mm3 (1.8-7.8); Neutrophils % 60.8 % (37.0-80.0); Nucleated Red Blood Cells # 0 10^3/uL; Nucleated Red Blood Cells % 0 %; Platelet Count 325 K/mm3 (142-424); Red Blood Count 3.91 M/mm3 (4.20-5.40); Red Cell Distribution Width 16.9 % (11.5-17.5); Red Cell Distribution Width-SD 55.3 fL; White Blood Count 9.4 K/mm3 (4.8-10.8)
[2024-12-04 07:45] LABS: Albumin Level 3.9 g/dl (3.5-5.0); Chloride 94 mmol/L (98-107)
[2024-12-04 07:46] LABS: Potassium 3.7 mmoL/L (3.5-5.1); Sodium 134 mmol/L (136-145)
[2024-12-04 07:48] LABS: Anion Gap 7.7 mEq/L (5-15); Blood Urea Nitrogen 15 mg/dl (7-17); Carbon Dioxide 36 mmol/L (22.0-30.0); Creatinine Clearance Estimated 50 mL/min (50-200); Estimated Glomerular Filt Rate 57 ml/min (>60); GFR (African American) 69 ML/MIN (>60)
[2024-12-04 07:49] LABS: Alanine Aminotransferase 22 U/L (12-78); Albumin/Globulin Ratio 1.2 (1.1-1.8); Alkaline Phosphatase 94 U/L (38-126); Aspartate Amino Transferase 34 U/L (14-36); Bilirubin,Total 0.3 mg/dl (0.2-1.3); Calcium 9.1 mg/dl (8.4-10.2); Globulin 3.3 g/dL (1.3-3.2); Glucose 161 mg/dl (74-100); Magnesium 1.9 mg/dl (1.6-2.3); Total Protein,Serum 7.2 g/dl (6.3-8.2)
[2024-12-04 08:00] VITALS: BP 133/54; PULSE 40; PULSE 46; RESP 16; TEMP 36.7; O2SAT 98
[2024-12-04] MEDS: ASPIRIN EC 81MG TABLET 81 MG PO (08:47)
[2024-12-04] MEDS: predniSONE 20MG TAB 20 MG PO (08:47)
[2024-12-04] MEDS: TORSEMIDE 20MG TABLET 60 MG PO ×2 (08:48→16:35)
[2024-12-04] MEDS: buPROPion HCL 100 MG TABLET 200 MG PO (08:48)
[2024-12-04] MEDS: HEPARIN SODIUM 5,000 UNIT/ML VIAL 5000 UNIT SUBCUT ×2 (08:49→14:23)
[2024-12-04 12:00] VITALS: BP 130/64; PULSE 46; PULSE 70; RESP 16; TEMP 36.6; O2SAT 96
[2024-12-04] MEDS: humaLOG 100 UNITS/ML 10ML VIAL (SSI) SUBCUT ×2 (12:03→16:39)
[2024-12-04 12:11] LABS: POC Glucose,Bedside 230 (70-110)
[2024-12-04 13:19] VITALS: PULSE 43
--- OUTSIDE RECORDS SUMMARY | 2024-12-04 14:29 | XMS_ITS ---
Author Organization Unknown Encounters Encounter Type Performer Location Encounter Date Encoun ter Notes virtual Andreina Hernandez - [id number]:13.000Z no notes virtual Yogesh Diaz - [id number] 5.000Z no notes virtual Data Migration User - [id number] :50.000Z no notes Patient Care team information Name Category Status Period Participants - - Proposed period not known -
--- NOTE | 2024-12-04 15:03 | PC.NURSE ---
unable to get ahold of ems at this time will try again later
[2024-12-04 17:35] LABS: POC Glucose,Bedside 207 (70-110)
[2024-12-04 20:43] LABS: POC Glucose,Bedside 169 (70-110)
== END 2024-12-04 17:13 | disposition short-term general hospital (02) | DRG 308 ==
LOC: ER 19:52 → 2ND 12-03 06:20
PROVIDERS: Nurse Practitioner Acute Care; Physician Assistant; Admitting Provider Internal Medicine Adolescent Medicine; Emergency Provider Emergency Medicine; PCP Internal Medicine; Visit Provider Internal Medicine Adolescent Medicine
DX: I44.1 Atrioventricular block, second degree (principal); J96.21 Acute and chronic respiratory failure with hypoxia; I50.32 Chronic diastolic (congestive) heart failure; J44.1 Chronic obstructive pulmonary disease with (acute) exacerbation; Z68.45 Body mass index [BMI] 70 or greater, adult; I11.0 Hypertensive heart disease with heart failure; R00.1 Bradycardia, unspecified; E03.9 Hypothyroidism, unspecified; E66.01 Morbid (severe) obesity due to excess calories; E11.9 Type 2 diabetes mellitus without complications; I45.10 Unspecified right bundle-branch block; G47.33 Obstructive sleep apnea (adult) (pediatric); R60.9 Edema, unspecified; K43.9 Ventral hernia without obstruction or gangrene; R34 Anuria and oliguria; E53.8 Deficiency of other specified B group vitamins; Z99.3 Dependence on wheelchair; Z74.1 Need for assistance with personal care; Z99.81 Dependence on supplemental oxygen; Z91.148 Patient's other noncompliance with medication regimen for other reason; M17.0 Bilateral primary osteoarthritis of knee; R32 Unspecified urinary incontinence; F32.A Depression, unspecified; Z86.73 Personal history of transient ischemic attack (TIA), and cerebral infarction without residual deficits; Z98.890 Other specified postprocedural states; Z90.49 Acquired absence of other specified parts of digestive tract; Z83.3 Family history of diabetes mellitus; Z80.9 Family history of malignant neoplasm, unspecified; Z82.49 Family history of ischemic heart disease and other diseases of the circulatory system; Z79.890 Hormone replacement therapy; Z79.51 Long term (current) use of inhaled steroids; Z79.85 Long-term (current) use of injectable non-insulin antidiabetic drugs; Z79.84 Long term (current) use of oral hypoglycemic drugs; Z79.899 Other long term (current) drug therapy; Z88.5 Allergy status to narcotic agent; Z88.8 Allergy status to other drugs, medicaments and biological substances; Z91.048 Other nonmedicinal substance allergy status
CPT/HCPCS: 36415; 71045; 80048; 80053; 81001; 82803; 82962; 83605; 83690; 83735; 83880; 84100; 84436; 84443; 84484; 85025; 85378; 85610; 85730; 87086; 87088; 87186; 93005; 94640; 94660; 94761; 97162; 99291; J1644; J1939; J7620

== ENCOUNTER 2024-12-06 23:49 | Observation (INO) | payer MEDICARE, OTHER, SELFPAY ==
--- OUTSIDE RECORDS SUMMARY | 2024-12-06 23:59 | XMS_ITS ---
Author Organization Unknown Encounters Encounter Type Performer Location Encounter Date Encoun ter Notes virtual Andreina Hernandez - [id number]:13.000Z no notes virtual Yogesh Diaz - [id number] 5.000Z no notes virtual Data Migration User - [id number] :50.000Z no notes Patient Care team information Name Category Status Period Participants - - Proposed period not known -
--- NOTE | 2024-12-07 00:02 | XR_ITS ---
PROCEDURE INFORMATION: Exam: XR Chest Exam date and time: 12/07/2024 12:20 AM Age: 54 years old Clinical indication: Device placement; Cardiac pacemaker placement or adjustment; Additional info: Recent pacer placement TECHNIQUE: Imaging protocol: Radiologic exam of the chest. Views: 1 view. Total images: 1 COMPARISON: CR XR CHEST PORTABLE 12/02/2024 5:56 PM FINDINGS: Tubes, catheters and devices: Status post left subclavian cardiac pacer in appropriate position. EKG leads are present. Lungs: Unremarkable. No consolidation. No pulmonary vascular congestion or edema. Pleural spaces: Unremarkable. No pleural effusion. No pneumothorax. Heart/Mediastinum: Unremarkable. No cardiomegaly. No mediastinal widening or hilar enlargement. Bones/joints: Unremarkable. Other findings: Lordotic positioning. Notes: Limited assessment by combined body habitus and poor film technique. IMPRESSION: 1. No radiographically acute cardiopulmonary process. 2. Status post left subclavian dual lead cardiac pacer in appropriate position.
[2024-12-07 00:04] VITALS: BP 110/63; PULSE 92; RESP 20; TEMP 36.7; O2SAT 97; BMI 73.8
--- NOTE | 2024-12-07 00:08 | ECG_ITS ---
APPROVED REPORT Exam: Resting ECG HR:91 bpm ECG Measurements Heart Rate 91 AXES ID 208 P 76 QRSd 122 QRS 80 QT 363 T 268 QTc 412 Conclusion ELECTRONIC VENTRICULAR PACEMAKER ABNORMAL RHYTHM ECG No STEMI Electronically signed by : SHIRLEY JOHNSON, 12/07/2024 05:49:42
[2024-12-07 00:29] LABS: Albumin Level 4.3 g/dl (3.5-5.0); Basophils # 0.1 K/mm3 (0-0.2); Basophils % 0.6 % (0.1-2.0); Chloride 89 mmol/L (98-107); Eosinophils # 0.2 Kmm3 (0.0-0.4); Eosinophils % 1.6 % (0.1-12.0); Hematocrit 40.7 % (37.0-47.0); Hemoglobin 12.2 g/dL (12.2-16.2); Immature Granulocytes # 0.06 10^3uL; Immature Granulocytes % 0.5 %; Lymphocytes # 2.3 K/mm3 (0.7-4.5); Lymphocytes % 19.6 % (10-50); Mean Corpuscular Hemoglobin 27.1 pg (27.0-31.2); Mean Corpuscular Volume 90.2 fl (81-99); Mean Platelet Volume 9.5 fl (7.4-10.4); Monocytes # 0.8 K/mm3 (0.1-1.0); Monocytes % 6.5 % (1.7-9.3); Neutrophils # 8.2 K/mm3 (1.8-7.8); Neutrophils % 71.2 % (37.0-80.0); Nucleated Red Blood Cells # 0 10^3/uL; Nucleated Red Blood Cells % 0 %; Platelet Count 327 K/mm3 (142-424); Red Blood Count 4.51 M/mm3 (4.20-5.40); Red Cell Distribution Width 17.3 % (11.5-17.5); Red Cell Distribution Width-SD 57.2 fL; White Blood Count 11.5 K/mm3 (4.8-10.8)
[2024-12-07 00:30] LABS: Potassium 4.1 mmoL/L (3.5-5.1); Sodium 134 mmol/L (136-145)
[2024-12-07] MEDS: cephALEXin 500MG CAPSULE 500 MG PO ×2 (00:30→08:51)
[2024-12-07 00:32] LABS: Alanine Aminotransferase 22 U/L (12-78); Aspartate Amino Transferase 97 U/L (14-36); Blood Urea Nitrogen 22 mg/dl (7-17); Creatinine Clearance Estimated 40 mL/min (50-200); Estimated Glomerular Filt Rate 42 ml/min (>60); GFR (African American) 51 ML/MIN (>60)
[2024-12-07 00:33] LABS: Albumin/Globulin Ratio 1.2 (1.1-1.8); Alkaline Phosphatase 108 U/L (38-126); Bilirubin,Total 0.6 mg/dl (0.2-1.3); Calcium 9.3 mg/dl (8.4-10.2); Globulin 3.7 g/dL (1.3-3.2); Glucose 120 mg/dl (74-100)
[2024-12-07 00:40] LABS: Anion Gap 13.1 mEq/L (5-15); Carbon Dioxide 36 mmol/L (22.0-30.0)
[2024-12-07 00:59] LABS: Free T4 (Free Thyroxine) 0.67 ng/dl (0.78-2.19)
--- NOTE | 2024-12-07 01:15 | PC.NURSE ---
lab calls critical result of trop 16.40. Dr Carlin notified.
--- NOTE | 2024-12-07 01:23 | ED_ITS ---
Discharge Plan Disposition Patient Disposition: Admitted Chief Complaint: Recheck/Abnormal Lab/Rx Prescriptions Prescriptions: No Action levothyroxine 150 mcg tablet 300 mcg PO DAILYDM Patient Comments: TAKE TWO TABLETS BY MOUTH EVERY DAY IN THE MORNING cholecalciferol (vitamin D3) 1,250 mcg (50,000 unit) capsule 1,250 mcg PO WEEKLY Qty: 12 3RF spironolactone 25 mg tablet 25 mg PO DAILY Qty: 90 3RF atorvastatin 40 mg tablet 40 mg PO HS Qty: 90 1RF semaglutide 0.25 mg or 0.5 mg(2 mg/1.5 mL) pen injector 0.5 mg SQ WEEKLY Qty: 1.5 0RF Repatha SureClick 140 mg/mL pen injector 140 mg SQ Q2W Qty: 2 5RF albuterol sulfate 90 mcg/actuation HFA aerosol inhaler See Rx Instructions .ROUTE .COMPLEX Qty: 8.5 10RF Dose Instruction: INHALE 2 PUFFS BY MOUTH EVERY 4 TO 6 HOURS NEEDED FOR SHORTNESS OF BREATH OR WHEEZING Rx Instructions: INHALE 2 PUFFS BY MOUTH EVERY 4 TO 6 HOURS NEEDED FOR SHORTNESS OF BREATH OR WHEEZING calcium carbonate [Calcium 600] 600 mg calcium (1,500 mg) Tablet 600 mg PO DAILY oxybutynin chloride 5 mg tablet 5 mg PO BID ropinirole 4 mg tablet 4 mg PO DAILY metformin 500 mg tablet 500 mg PO BIDWMEAL aspirin 81 mg tablet,delayed release (DR/EC) 81 mg PO DAILY ondansetron 4 mg tablet,disintegrating 4 mg PO Q4HP PRN (Reason: nausea, vomiting) bupropion HCl 200 mg tablet sustained-release 12 hr 400 mg PO DAILY torsemide 20 mg tablet 60 mg PO BIDL meloxicam 15 mg tablet 15 mg PO DAILYP PRN (Reason: Moderate Pain (Scale Score 5-6)) cyanocobalamin (vitamin B-12) 1,000 mcg tablet 1,000 mcg PO DAILY Trelegy Ellipta 100-62.5-25 mcg blister with device 1 inh INHALATION DAILY Patient Comments: INHALE 1 PUFF BY MOUTH EVERY DAY --RINSE MOUTH AFTER USE-- ipratropium-albuterol 0.5 mg-3 mg(2.5 mg base)/3 mL solution for nebulization 3 ml inhalation QIDP PRN (Reason: shortness of breath or wheezing) trazodone 150 mg tablet 300 mg PO HS lisinopril 40 mg Tablet 40 mg PO DAILY Clinical Impressions Clinical Impression: GWEN (acute kidney injury), Morbid obesity, Transaminitis Print Language Print Language: Georgian Discharge ED Provider: Joselito Carlin General Adult HPI General Chief complaint: Recheck/Abnormal Lab/Rx Stated complaint: cp Time Seen by Provider: 12/07/24 00:02 Mode of Arrival: EMS Source of Information: Patient, EMS and Medical Record Description of Symptoms (Recalled from ER Triage Doc. by RN): pt presents as a transfer from [facility] with no complaints at this time. Pt was seen at this facility previously and transferred for need of pacemaker placement. EMS reports that no formal report was given except she needs to get back to [place] because that is where she is from Pt denies any complaints right now, AOx4, NAD noted, RR even and non labored, skin pwd. Pacemaker incision well healed, howard in place upon arrival, no IV's in place. History of Present Illness HPI narrative: 54-year-old female presents to the ER from [facility] reportedly as a transfer with no complaints at this time. Patient was seen at this facility 12/02/2024 and initially admitted to our facility with bradycardia but then transferred to [facility] 2 days later for pacemaker placement due to her morbid obesity and the weight limitations of our Senior Sales Operations Manager table. Shortly prior to patient's arrival, this facility received a phone call asking to give report of this patient arriving as a transfer from [facility], of which we knew nothing about. They could not tell us an accepting provider or whether the patient was to be admitted directly inpatient or go through the ER. Since there was no known accepting inpatient physician and significant confusion surrounding the situation she came to the ER for evaluation. Patient has no complaints right now. She states she had heard the physicians at [facility] talking about possibly discharging her but then some of the physicians were saying she needs to stay a few more days because of her bad thyroid. She says they asked her whether she wanted to stay at [facility] or go back to [place] and she stated she would prefer to be at [place] but she was not told she was being transferred here. She states she was never formally told she was being discharged either. They did remove her IVs prior to transporting her here but left the Howard catheter in place. Patient reports no chest pain or difficulty breathing, she states her pacemaker site is mildly achy but otherwise feels good. She has had no fevers or chills, no redness, excessive pain, or discharge from the pacemaker site. She denies nausea, vomiting, abdominal pain, numbness, tingling, weakness, headache, dizziness, cough, congestion, or any other associated symptoms. Related Data Home Medications ?Medication ?Instructions ?Recorded ?Confirmed calcium carbonate (Calcium 600) 600 mg PO DAILY 10/03/23 12/03/24 levothyroxine 150 mcg tablet 300 mcg PO DAILYDM 08/16/24 12/03/24 cyanocobalamin (vitamin B-12) 1,000 mcg PO DAILY 09/24/24 12/03/24 1,000 mcg tablet fluticasone fur. 100 mcg-umeclid 1 inh inhalation DAILY 09/24/24 12/03/24 62.5 mcg-vilant 25 mcg inhalat.powder (Trelegy Ellipta) ipratropium 0.5 mg-albuterol 3 mg 3 ml inhalation QIDP PRN shortness 09/24/24 12/03/24 (2.5 mg base)/3 mL nebulization of breath or wheezing soln lisinopril 40 mg tablet 40 mg PO DAILY 09/24/24 12/03/24 trazodone 150 mg tablet 300 mg PO HS 09/24/24 12/03/24 aspirin 81 mg tablet,delayed 81 mg PO DAILY 12/02/24 12/03/24 release bupropion HCl 200 mg tablet,12 hr 400 mg PO DAILY 12/02/24 12/03/24 sustained-release metformin 500 mg tablet 500 mg PO BIDWMEAL 12/02/24 12/03/24 ondansetron 4 mg disintegrating 4 mg PO Q4HP PRN nausea, vomiting 12/02/24 12/03/24 tablet oxybutynin chloride 5 mg tablet 5 mg PO BID 12/02/24 12/03/24 ropinirole 4 mg tablet 4 mg PO DAILY 12/02/24 12/03/24 meloxicam 15 mg tablet 15 mg PO DAILYP PRN Moderate Pain 12/03/24 12/03/24 (Scale Score 5-6) torsemide 20 mg tablet 60 mg PO BIDL 12/03/24 12/03/24 Previous Rx's ?Medication ?Instructions ?Recorded cholecalciferol (vitamin D3) 1,250 1,250 mcg PO WEEKLY #12 caps 05/26/24 mcg (50,000 unit) capsule spironolactone 25 mg tablet 25 mg PO DAILY #90 tabs 07/06/24 atorvastatin 40 mg tablet 40 mg PO HS #90 tabs 11/01/24 semaglutide 0.25 mg or 0.5 mg (2 0.5 mg (0.374 mL) SQ WEEKLY #1.5 mL 11/01/24 mg/1.5 mL) subcutaneous pen injector evolocumab 140 mg/mL subcutaneous 140 mg SQ Q2W #2 mL 11/24/24 pen injector (Repatha SureClick) albuterol sulfate 90 mcg/actuation See Rx Instructions .Route 12/05/24 aerosol inhaler .COMPLEX #8.5 grams Allergies Allergy/AdvReac Type Severity Reaction Status Date / Time adhesive tape (ADHESIVE TAPE) Allergy Unknown Blister Verified 11/22/24 14:36 hydromorphone (From DILAUDID) Allergy Unknown Hypotension Verified 11/22/24 14:36 nickel (NICKEL) Allergy Unknown Blister Verified 11/22/24 14:36 PFSH [facility] Disclaimer: The information contained in this section may have been updated after the patient was seen, as this information can be updated by other users. Medical History Abdominal pain UTI (urinary tract infection) Hospital discharge follow-up Establishing care with new doctor, encounter for Restless leg Glaucoma Arthritis of both knees Urinary incontinence Unspecified asthma, uncomplicated Tear of meniscus of knee Pre-diabetes Diastolic CHF, acute on chronic Pulmonary hypertension Elevated left ventricular end-diastolic pressure (LVEDP) Asthma exacerbation Sleep apnea History of COVID-19 COPD (chronic obstructive pulmonary disease) Asthma Abscess of groin, right Acute exacerbation of chronic obstructive airways disease Left against medical advice Dependent on wheelchair Assistance needed for continence Incisional hernia Complex large recurrent abdominal wall hernia (essentially with loss of domain) and focal skin ulceration Lower leg pain Knee pain Vaginal bleeding Perimenopausal Cellulitis Hypothyroidism Dizziness Chest pain Sinusitis Tobacco abuse counseling Tobacco abuse HONEY (obstructive sleep apnea) Ventral hernia Dyspnea Depression Pharyngitis due to Streptococcus species Epigastric pain Gastritis Strep throat HTN (hypertension) Hypothyroidism (acquired) TIA (transient ischemic attack) COPD exacerbation Paresthesias Shortness of breath Acute bronchitis Tobacco abuse COPD (chronic obstructive pulmonary disease) Infiltrate of lung present on chest x-ray Atelectasis of right lung Cough Upper respiratory infection Surgical History History of lateral meniscus repair of right knee Pt is unsure if it was lateral or medial H/O tubal ligation Hx of cholecystectomy H/O hernia repair History of colon resection Family History Mother Hypertension Diabetes Father Cancer Social History (Updated 12/02/24 @ 21:43 by Nini Gonzalez RN) Smoking Status: Never smoker years smoked: 38 smoking status stop date: 3 months ago quit status: has quit before second hand exposure: Yes alcohol intake: never substance use type: denies use current occupational status: unemployed Travel in the last 8 weeks?: None household members: family and children housing: other lives independently: No marital status: legally number of children: 4 education level: other caffeine: Yes do you feel safe at home: Yes victim of physical abuse: No victim of emotional abuse: No victim of sexual abuse: No Other Medical History Have you received the Flu Vaccine for this season: No Have you received the Pneumonia Vaccine: No ROS Obtained: Yes Systems reviewed as appropriate & no additional complaints except as documented Per HPI Physical Exam General General appearance: alert, in no apparent distress and obese (Morbid obesity) Comment: Hirsutism appearance Head Head exam: atraumatic and normocephalic Eye Eye exam: Present PERRL and EOMI ENT ENT exam: Present mucous membranes moist Neck Neck exam: Present normal inspection and full ROM Chest Chest inspection: Present symmetric chest wall rise and other (Pacemaker palpable in the left upper chest with only mild tenderness, incision is clean, dry, intact, no surrounding erythema, induration, no fluctuance or discharge) Respiratory Respiratory exam: Present normal lung sounds bilaterally; Absent respiratory distress, wheezes or stridor Cardiovascular Cardiovascular exam: Present regular rate and normal rhythm Abdominal Exam Abdominal exam: Present soft; Absent distention or tenderness External exam: Present howard catheter in place (Draining clear, yellow urine) Extremities Exam Extremities exam: Present full ROM; Absent edema Neurological Exam Neurological exam: Present alert and oriented X3; Absent motor sensory deficit Psychiatric Psychiatric exam: Present normal affect and normal mood Skin Skin exam: Present warm and dry Medical Decision Making Medical Records Medical records reviewed: Yes I reviewed the patient's medical records. Screening: Per USPSTF and CDC recommendations, given the prevalence of disease in our region, it is our hospital?s policy to screen for HIV and viral Hepatitis for all patients aged 18 and over and those with ongoing risk factors. MR Comment: Recent ECGs from admission were reviewed and they had different morphology than the ECG obtained today. I also reviewed the ER physician note from 12/02/2024. This documents that the patient is noncompliant with thyroid medications. The discharge summary from Dr. Barros on 12/04/2024 demonstrates patient was admitted for bradycardia with high-grade AV block, hypothyroid, chronic diastolic heart failure, among other complicating diseases. She was accepted for transfer to [facility] and transferred on that date. [facility] sent a packet with the patient when she was transferred here [facility]. The packet includes final report from the patient's pacemaker placement which demonstrates they successfully placed dual chamber pacer with RAA and left anterior fascicle pacing and a TYRX antibiotic pouch. Plan from operation was to continue IV Ancef for 2 doses then Keflex at discharge and follow-up with Dr. David at [facility]. The device placed is an [employer] MRI 2272 pacemaker with serial #[id number]. There was also a note from endocrine consultation that demonstrates patient reported to them missed doses of her 300 mcg daily of levothyroxine, their TSH was 44.52 and free T4 was 0.4. They had administered IV levothyroxine to ensure adequate hormone replacement in the short-term then planned to resume home dose levothyroxine. The remainder of the packet with which the patient came included discharge paperwork indicating that discharge order was placed for this patient on 12/06/2024 at 1742 indicating patient was being discharged to [facility], however it does not indicate to which physician the patient was to be discharged at [facility]. Paperwork does indicate to follow-up with Dr. David and PCP. Discharge paperwork also does not indicate whether or not cephalexin was actually prescribed to patient's home pharmacy. Finally, I cannot tell from the discharge paperwork who the physician was who actually discharged and transferred to the patient to [facility]. [place] Inquiry Pt receiving controlled substance: No Vital Signs: 12/07/24 00:04 Temperature 98.1 F Temperature Source Oral Pulse Rate [Radial] 92 H Respiratory Rate 20 Blood Pressure [Right Arm] 110/63 Blood Pressure Mean [Right Arm] 78 Blood Pressure Position [Right Arm] Supine 02 Sat by Pulse Oximetry 97 Oxygen Delivery Method Nasal Cannula Oxygen Flow Rate (LPM) 2 Lab Data Lab Results 12/07/24 00:17: WBC 11.5 H, RBC 4.51, Hgb 12.2, Hct 40.7, MCV 90.2, MCH 27.1, M CHC 30.0 L, RDW 17.3, Plt Count 327, MPV 9.5, Neut % (Auto) 71.2, Lymph % (Auto) 19.6, [place] % (Auto) 6.5, Eos % (Auto) 1.6, Baso % (Auto) 0.6, Neut # (Auto) 8.2 H, Lymph # (Auto) 2.3, [place] # (Auto) 0.8, Eos # (Auto) 0.2, Baso # (Auto) 0.1, S odium 134 L, Potassium 4.1, Chloride 89 L, Carbon Dioxide 36 H, Anion Gap 13.1, BUN 22 H D, Creatinine 1.30 H D, Estimated Creat Clear 40, Estimated GFR 42 L, E st GFR ( Amer) 51 L D, Glucose 120 H, Calcium 9.3, Total Bilirubin 0.6, A ST 97 H D, ALT 22, Alkaline Phosphatase 108, Troponin I 16.40 H, Total Protein 8.0, Albumin 4.3, Globulin 3.7 H, Albumin/Globulin Ratio 1.2, TSH 31.40 H, Free T4 0.67 L 12/07/24 00:17 12/07/24 00:17 Orders (Tests/Meds): ED MEDICATIONS Discontinued Medications Generic Name Dose Route Start Last Admin Trade Name Freq PRN Reason Stop Dose Admin Cephalexin HCl 500 mg 12/07/24 00:12 12/07/24 00:30 Cephalexin 500mg Capsule PO 12/07/24 00:13 500 mg ONCE ONE Administration ORDERS Category Date Time Status CXR --portable [XR chest portable] Stat Exams 12/07/24 00:02 Completed CBC w/Auto Diff [Complete Blood Count Auto Diff] Stat Lab 12/07/24 00:17 Completed CMP [Comprehensive Metabolic Panel] Stat Lab 12/07/24 00:17 Completed Free T4 (Free Thyroxine) Stat Lab 12/07/24 00:17 Completed TSH [Thyroid Stimulating Hormone] Stat Lab 12/07/24 00:17 Completed Trop I [Troponin I] Stat Lab 12/07/24 00:17 Completed Troponin I Q3H Lab 12/07/24 03:15 Ordered Troponin I Q3H Lab 12/07/24 06:15 Ordered ECG Request Stat Y 12/07/24 00:02 Ordered Medical Decision Narrative: In summary, this 54-year-old female with comorbidities described in the HPI presents to the emergency department today with no complaints as a reported transfer from [facility]. On initial evaluation patient is hemodynamically stable, afebrile, GCS 15, morbidly obese but not currently ill- appearing, nontoxic, new pacemaker is present in the left upper chest with no evidence of infection at the pacemaker site, abdominal exam benign, Howard catheter in place draining clear, yellow urine, remainder of exam reassuring. I do not have a specific differential for this patient since she does not have any complaints, however with her recent hospitalization I am concerned for persistent arrhythmia, inappropriately placed or damaged pacemaker, pacemaker pocket infection, with the catheter in place I also considered the possibility of UTI the patient has no abdominal pain or fevers. Basic serum labs, chest x- ray, EKG, troponin, urinalysis were initially ordered for workup. Patient refused catheter exchange for urinalysis stating she would like to have the catheter removed. She has a history of incontinence and it is not entirely clear to me why the catheter was placed so I do not feel comfortable discontinuing at this time in the ER specially since I have high suspicion this patient will be admitted to the hospital. At this time catheter will remain in place for cleanliness but UA was canceled after patient refused. ECG personally interpreted demonstrates ventricular pacemaker, rate 91, normal axis, normal QTc, patient has T wave inversions in the inferior leads, some morphology of his ECG is different from prior however there is no evidence of STEMI. While I evaluated the patient and initial workup was being started, LOS Cook spoke with [facility] in an attempt to obtain additional information about this patient and her transfer . She spoke with LOS Finch who had this patient prior to discharge/transfer on the seventh floor at [facility]. RN Stef reports the patient came to [facility] specifically for pacemaker placement and had pacer placed in the left upper shoulder. She was on 2 L oxygen at baseline and using a wheelchair at baseline when she had the patient. She reports that the physician who placed the discharge orders was Gisele Plascencia MD and that reportedly Dr. David accepted the patient, however she did not indicate which Dr. David (there are two at this facility). She reports their information indicates the patient was discharged from their facility. Labs reviewed by me demonstrate mild leukocytosis increased from previous 1 patient was admitted to our hospital a few days ago, WBC now 11.5, no anemia, platelets normal at 327, CMP demonstrates new kidney dysfunction, there were no labs sent from [facility] so I cannot tell if this is an uptrend or a downtrend, but it is new from when she was admitted here. She also newly has transaminitis with AST 97 but no hyperbilirubinemia. Initial troponin 16.4, this is a significant elevation compared to prior. I discussed this with Dr. David by phone and we reviewed the patient's ECG. He states her ECG appears appropriate for her new pacemaker and the troponin is just from the lead placement. I appreciate his input. Patient's thyroid studies are persistently very abnormal with TSH 31.4, free T4.67. Because patient was supposed to be started on Keflex at the time of discharge according to the paperwork from [facility], a dose of this was ordered in the ER. Patient continues to be hemodynamically stable and well-appearing at this time, however with the confusion surrounding the nature of the transfer whether she was supposed to remain inpatient by being sent back to [facility] or was being discharged potentially to home by way of our hospital as well as the new abnormalities on her labs compared to when she left our facility, I believe she requires admission. Admission will be for continued management of severely abnormal thyroid studies which are likely complicating her current cardiac pathology as well as her new transaminitis and new kidney dysfunction. Patient is agreeable to admission. I discussed this case with the hospitalist, Reddy, who graciously accepted the patient for admission. Critical Care Critical Care Time Critical Care Time: No
--- NOTE | 2024-12-07 01:41 | P.HP_ITS ---
<Statement entered by Jacinto Mayorga MD - 12/12/24 17:00> Personally evaluated the patient and agree with the plan of care as outlined by the HEALTH INSURANCE ADJUSTER. History of Present Illness *Admission Date: 12/07/24 *Reason for visit:: Transferred from another facility *History of present illness: This is a 54-year-old obese female who has a past medical history significant for restless leg syndrome, glaucoma, diastolic dysfunction congestive heart failure, pulmonary hypertension, asthma, sleep apnea, COVID-19 infection, COPD, asthma, home O2 dependency at 2 L, hypothyroidism, ventral hernia, depression, gastritis, hypertension, and TIA who presents from [facility] as a transfer. Patient was recently seen at [facility] and evaluated and noted to have a Mobitz type II heart block. She was evaluated by cardiology, and unfortunately, due to patient's body habitus she was unable to be accommodated with our Budget Examiner table. As a result, patient was transition to [facility] for further management. Due to some circumstances that are not clear, patient was transition back to [facility] after pacemaker was placed. I was contacted by house carpenter helper inquiring if I knew of this patient being transition back to [facility] for additional management. I was unaware of this patient's transfer to our facility. I contacted the attending physician who spoke candidly about the patient and the need to transfer to a higher level of care. After lengthy discussion, I spoke with the house carpenter helper and informed her that the attending would like for patient to be seen in the emergency room-this is since patient transfer was performed without any commu nication from prior facility-to evaluate for any acute illnesses. Dr. Carlin in the emergency room was kind of to receive patient in triage before excepting. Patient had notable acute kidney injury-prior to leaving for facility patient's creatinine was normal. She has functioning cardiac pacemaker in place with stable heart rate and blood pressure. Patient also had an increase in her liver enzymes. Urinalysis obtained on prior admission grew strep agalactiae which was resistant to tetracycline. I did receive a call from the resident from [facility] (Radha Hutchinson). She discussed the case with me at length. There was no mention of any prior conversation with an attending during our discussion. She did highlight that patient's TSH was abnormally high while at their facilities (TSH was 40). She was evaluated by their sewing techniques demonstrator team given IV levothyroxine and continued on her maintenance dose of Synthroid-patient admits to not taking medication as prescribed-last admission she states that she would have missed 3 to 4 days of her levothyroxine. Moreover, Radha and I spoke concerning post management of pacemaker. She was prescribed Keflex 500 mg 3 times daily for 5 days for empiric treatment. Unfortunately, the conversation had between Radha and myself did not highlight the reason for transfer back to [facility]. During my evaluation of the patient, she was denying any chest pain, lightheadedness, dizziness, fever, chills, rigors, nausea, vomiting, or diarrhea. She wanted to have the Hernández catheter removed. She was delighted to be back at [facility]. She is currently without any complaints. Chest x- ray obtained was negative for any acute cardiopulmonary process. Additional pertinent labs obtained including white blood cell count 11.5, sodium 134, chloride of 89, carbon oxide of 36, BUN of 22, creatinine 1.30, GFR 42, blood glucose 120, AST of 97, troponin 16.40 (this value along with EKG was discussed with cardiology and there were no additional interventions required), TSH of 31.40, and free T40.67. Dr. Cariln was kind enough to speak with cardiology concerning findings of EKG and troponin [facility] Disclaimer: The information contained in this section may have been updated after the patient was seen, as this information can be updated by other users. Medical History Abdominal pain UTI (urinary tract infection) Hospital discharge follow-up Establishing care with new doctor, encounter for Restless leg Glaucoma Arthritis of both knees Urinary incontinence Unspecified asthma, uncomplicated Tear of meniscus of knee Pre-diabetes Diastolic CHF, acute on chronic Pulmonary hypertension Elevated left ventricular end-diastolic pressure (LVEDP) Asthma exacerbation Sleep apnea History of COVID-19 COPD (chronic obstructive pulmonary disease) Asthma Abscess of groin, right Acute exacerbation of chronic obstructive airways disease Left against medical advice Dependent on wheelchair Assistance needed for continence Incisional hernia Complex large recurrent abdominal wall hernia (essentially with loss of domain) and focal skin ulceration Lower leg pain Knee pain Vaginal bleeding Perimenopausal Cellulitis Hypothyroidism Dizziness Chest pain Sinusitis Tobacco abuse counseling Tobacco abuse HONEY (obstructive sleep apnea) Ventral hernia Dyspnea Depression Pharyngitis due to Streptococcus species Epigastric pain Gastritis Strep throat HTN (hypertension) Hypothyroidism (acquired) TIA (transient ischemic attack) COPD exacerbation Paresthesias Shortness of breath Acute bronchitis Tobacco abuse COPD (chronic obstructive pulmonary disease) Infiltrate of lung present on chest x-ray Atelectasis of right lung Cough Upper respiratory infection Surgical History History of lateral meniscus repair of right knee Pt is unsure if it was lateral or medial H/O tubal ligation Hx of cholecystectomy H/O hernia repair History of colon resection Family History Mother Hypertension Diabetes Father Cancer Social History (Updated 12/02/24 @ 21:43 by Nini Gonzalez RN) Smoking Status: Never smoker years smoked: 38 smoking status stop date: 3 months ago quit status: has quit before second hand exposure: Yes alcohol intake: never substance use type: denies use current occupational status: unemployed Travel in the last 8 weeks?: None household members: family and children housing: other lives independently: No marital status: legally number of children: 4 education level: other caffeine: Yes do you feel safe at home: Yes victim of physical abuse: No victim of emotional abuse: No victim of sexual abuse: No Other Medical History Have you received the Flu Vaccine for this season: No Have you received the Pneumonia Vaccine: No Review of Systems Review of Systems Review of systems:: pertinent systems reviewed and negative unless documented below Constitutional Constitutional: Reports system reviewed and no additional complaints, except as documented Eyes Eyes: Reports system reviewed and no additional complaints, except as documented ENT Ears, Nose, Mouth, and Throat: Reports system reviewed and no additional complaints, except as documented *Cardiovascular Cardiovascular: Reports system reviewed and no additional complaints, except as documented *Respiratory Respiratory: Reports system reviewed and no additional complaints, except as documented *Gastrointestinal Gastrointestinal: Reports system reviewed and no additional complaints, except as documented *Genitourinary Genitourinary: Reports system reviewed and no additional complaints, except as documented *Musculoskeletal Musculoskeletal: Reports muscle weakness Integumentary/Breasts Skin/Breast: Reports system reviewed and no additional complaints, except as documented *Neurologic Neurologic: Reports system reviewed and no additional complaints, except as documented Psychiatric Psychiatric: Reports system reviewed and no additional complaints, except as documented Endocrine Endocrine: Reports system reviewed and no additional complaints, except as documented Hematologic/Lymphatic Hematologic/Lymphatic: Reports system reviewed and no additional complaints, except as documented Allergic/Immunologic Allergic/Immunologic: Reports system reviewed and no additional complaints, except as documented Meds Home Medications and Allergies Home Medications ?Medication ?Instructions ?Recorded ?Confirmed ?Type calcium carbonate (Calcium 600) 600 mg PO DAILY 10/03/23 12/03/24 History cholecalciferol (vitamin D3) 1,250 1,250 mcg PO WEEKLY #12 caps 05/26/24 12/03/24 Rx mcg (50,000 unit) capsule spironolactone 25 mg tablet 25 mg PO DAILY #90 tabs 07/06/24 12/03/24 Rx levothyroxine 150 mcg tablet 300 mcg PO DAILYDM 08/16/24 12/03/24 History cyanocobalamin (vitamin B-12) 1,000 mcg PO DAILY 09/24/24 12/03/24 History 1,000 mcg tablet fluticasone fur. 100 mcg-umeclid 1 inh inhalation DAILY 09/24/24 12/03/24 History 62.5 mcg-vilant 25 mcg inhalat.powder (Trelegy Ellipta) ipratropium 0.5 mg-albuterol 3 mg 3 ml inhalation QIDP PRN shortness 09/24/24 12/03/24 History (2.5 mg base)/3 mL nebulization of breath or wheezing soln lisinopril 40 mg tablet 40 mg PO DAILY 09/24/24 12/03/24 History trazodone 150 mg tablet 300 mg PO HS 09/24/24 12/03/24 History atorvastatin 40 mg tablet 40 mg PO HS #90 tabs 11/01/24 12/03/24 Rx semaglutide 0.25 mg or 0.5 mg (2 0.5 mg (0.374 mL) SQ WEEKLY #1.5 mL 11/01/24 12/03/24 Rx mg/1.5 mL) subcutaneous pen injector evolocumab 140 mg/mL subcutaneous 140 mg SQ Q2W #2 mL 11/24/24 12/03/24 Rx pen injector (Meli Marquezick) aspirin 81 mg tablet,delayed 81 mg PO DAILY 12/02/24 12/03/24 History release bupropion HCl 200 mg tablet,12 hr 400 mg PO DAILY 12/02/24 12/03/24 History sustained-release metformin 500 mg tablet 500 mg PO BIDWMEAL 12/02/24 12/03/24 History ondansetron 4 mg disintegrating 4 mg PO Q4HP PRN nausea, vomiting 12/02/24 12/03/24 History tablet oxybutynin chloride 5 mg tablet 5 mg PO BID 12/02/24 12/03/24 History ropinirole 4 mg tablet 4 mg PO DAILY 12/02/24 12/03/24 History meloxicam 15 mg tablet 15 mg PO DAILYP PRN Moderate Pain 12/03/24 12/03/24 History (Scale Score 5-6) torsemide 20 mg tablet 60 mg PO BIDL 12/03/24 12/03/24 History albuterol sulfate 90 mcg/actuation See Rx Instructions .Route 12/05/24 Rx aerosol inhaler .COMPLEX #8.5 grams New Prescriptions to Start Prescriptions: Allergies Allergy/AdvReac Type Severity Reaction Status Date / Time adhesive tape (ADHESIVE TAPE) Allergy Unknown Blister Verified 11/22/24 14:36 hydromorphone (From DILAUDID) Allergy Unknown Hypotension Verified 11/22/24 14:36 nickel (NICKEL) Allergy Unknown Blister Verified 11/22/24 14:36 Exam Data for Last 24 hours Vital signs and Labs for Last 24 Hours: Temp Pulse Resp BP Pulse Ox O2 Del Method O2 Flow Rate 98.1 F 92 H 20 110/63 97 Nasal Cannula 2 12/07/24 00:04 12/07/24 00:04 12/07/24 00:04 12/07/24 00:04 12/07/24 00:04 12/07/24 00:04 12/07/24 00:04 Laboratory Results - last 24 hr 12/07/24 00:17: WBC 11.5 H, RBC 4.51, Hgb 12.2, Hct 40.7, MCV 90.2, MCH 27.1, MCHC 30.0 L, RDW 17.3, Plt Count 327, MPV 9.5, Neut % (Auto) 71.2, Lymph % (Auto) 19.6, [place] % (Auto) 6.5, Eos % (Auto) 1.6, Baso % (Auto) 0.6, Neut # (Auto) 8.2 H, Lymph # (Auto) 2.3, [place] # (Auto) 0.8, Eos # (Auto) 0.2, Baso # (Auto) 0.1, Sodium 134 L, Potassium 4.1, Chloride 89 L, Carbon Dioxide 36 H, Anion Gap 13.1, BUN 22 H D, Creatinine 1.30 H D, Estimated Creat Clear 40, Estimated GFR 42 L, Est GFR ( Amer) 51 L D, Glucose 120 H, Calcium 9.3, Total Bilirubin 0.6, AST 97 H D, ALT 22, Alkaline Phosphatase 108, Troponin I 16.40 H, Total Protein 8.0, Albumin 4.3, Globulin 3.7 H, Albumin/Globulin Ratio 1.2, TSH 31.40 H, Free T4 0.67 L I & O for Last 24 hours: Intake & Output 12/04/24 12/05/24 12/06/24 12/07/24 23:59 23:59 23:59 23:59 Weight 189.148 kg Constitutional Constitutional: no acute distress and morbidly obese *Routine HEENT Exam Head: Present normocephalic and atraumatic Eye: Present EOMI and PERRL ENT: Present mucous membranes moist *Routine Neck Exam Neck: Present supple, full ROM and trachea midline *Routine Respiratory Exam Respiratory: Present diminished air movement, normal respiratory effort, able to speak in complete sentences and symmetric chest movement *Routine Cardiovascular Exam Cardiovascular: Present Normal S1 and Normal S2 *Routine Abdominal Exam Abdominal: Present soft and obese *Routine Rectal Exam Rectal:: deferred *Routine Genitalia Exam Genitalia:: deferred Comment:: Hernández catheter has clear yellow urine noted *Routine Extremities Exam Extremities: Present full ROM and normal capillary refill Routine Back/Spine/Pelvis Exam Back/Spine: Present full ROM *Routine Skin Exam Skin: Present intact, dry and warm *Routine Neurological Exam Neurological: Present alert, oriented X3, CN II-XII intact and normal speech Routine Psychiatric Exam Psychiatric: Present normal affect, normal thought process, cooperative, good insight and good judgment H&P: Result Impressions 54-year-old female who presents from [facility] after having pacemaker placed noted to have a acute kidney injury review of the EMR shows elevation in creatinine in the past. Patient did have some microorganisms grow on urine culture. Assessment and Plan *Assessment and plan (1) Second degree heart block: Status: Acute Category: Medical Code(s): I44.1 - Atrioventricular block, second degree (2) GWEN (acute kidney injury): Status: Acute Category: Medical Code(s): N17.9 - Acute kidney failure, unspecified (3) Elevated liver enzymes: Status: Acute Category: Medical Code(s): R74.8 - Abnormal levels of other serum enzymes (4) Elevated troponin: Status: Acute Category: Medical Code(s): R79.89 - Other specified abnormal findings of blood chemistry (5) Hypothyroid: Status: Acute Qualifiers: Hypothyroidism type: unspecified Qualified Code(s): E03.9 - Hypothyroi dism, unspecified Category: Medical Code(s): E03.9 - Hypothyroidism, unspecified (6) Leukocytosis: Status: Acute Qualifiers: Leukocytosis type: unspecified Qualified Code(s): D72.829 - Elevated white blood cell count, unspecified Category: Medical Code(s): D72.829 - Elevated white blood cell count, unspecified (7) UTI (urinary tract infection): Status: Acute Qualifiers: Urinary tract infection type: site unspecified Hematuria presence: without hematuria Qualified Code(s): N39.0 - Urinary tract infection, site not specified Category: Medical Code(s): N39.0 - Urinary tract infection, site not specified Plan Assessment: Mobitz type II second-degree heart block - Status post pacemaker placement - Furniture Assembler And Installer to follow-up Acute kidney injury - Will avoid nephrotoxic drugs - Will obtain random urine sodium, random urine urea, random urine protein, random urine protein creatinine ratio, -Will give gentle IV hydration - Will consider ultrasound of the kidneys if no improvement Elevated liver enzymes - Will monitor for now - CMP daily Elevated troponin - Furniture Assembler And Installer believes that this is an appropriate elevation - Will continue to trend troponins - EKG is without any acute findings for ST segment depression or elevation/STEMI -Patient is currently denying any chest pain Leukocytosis - May be in the setting of recent surgical intervention versus urinary tract infection -Would like to review records once patient has presented to gating unit Urinary tract infection -Will continue the Keflex 500 mg p.o. 3 times daily -Will obtain urine culture -Will more than likely discontinue patient's Hernández catheter Plan: Admit patient to the [facility] unit Cardiac monitoring Occupational Therapy Physical therapy Case management 1800 ADA/cardiac diet Accu-Cheks AC and at bedtime CBC/CMP daily 5 mg [place] p.o. every 4 hours for moderate pain Will restart patient's levothyroxine Full code Normal saline at 75 mL an hour I have discussed this case with attending physician Dr. Mayorga and I look forward to more input
--- NOTE | 2024-12-07 01:46 | PC.NURSE ---
Received report from Bertha Finch RN on the seventh floor from [facility]. Rossy MADISON stated that this patient was transferred to their facility from [facility] for pacemaker placement. Pacemaker was placed to the left upper shoulder during admission at [facility]. Rossy MADISON stated that she was being brought back to [facility] after Dr. Gisele Plascencia discharged patient from [facility] and Dr. David was believed by Rossy MADISON, to be accepting physician at [facility]. It is unclear which Dr. David was talked to about patient coming back to [facility] (there is more than one at this facility)
--- NOTE | 2024-12-07 02:01 | PC.NURSE ---
called [facility] to see about getting the Hospitalist to fax their progress note or discharge summary. gave them our fax number said they would call back when the fax went through.
--- NOTE | 2024-12-07 02:01 | PC.NURSE ---
Report given to Evelyn MADISON for room 209
[2024-12-07 02:05] VITALS: BP 150/65; PULSE 85; RESP 15; TEMP 36.8; O2SAT 96
--- NOTE | 2024-12-07 02:21 | PC.NURSE ---
Patient arrived to floor via stretcher from ED at 02:19.
[2024-12-07 02:30] VITALS: BP 150/65; PULSE 88; RESP 16; TEMP 36.8; O2SAT 96; BMI 74.9
--- NOTE | 2024-12-07 02:30 | EXP.EVENT.NO ---
Went to review patient's documents from prior facility and it was absent discharge summary or H&P. Resident Radha Hutchinson ensured me that discharge summary would be available among the documents. Spoke with Dr. Carlin in the emergency room and she has reached out to [facility] and we are pending receiving patient's discharge summary. Hopefully I can review this document and give as much insight as possible to what occurred at prior facility. Will update attending physician
[2024-12-07] MEDS: 0.9 % SODIUM CHLORIDE 1000ML 1,000 ML 75 ML IV (02:33)
[2024-12-07 03:02] VITALS: PULSE 90
--- NOTE | 2024-12-07 03:37 | PC.NURSE ---
Pt recently arrived to floor. AOx4. Hernández in place. Denies pain or any issues at this time. Received bed bath upon arrival. Resting in bed with eyes open. Respirations even and unlabored. Bed is low, locked, and call light is in reach.
[2024-12-07 03:39] LABS: Creatinine,Urine Random 61 mg/dL (Not Estab.); Urea Nitrogen,Urine Random 334 mg/dl (Not Estab.)
[2024-12-07 04:00] VITALS: PULSE 90
[2024-12-07 05:29] LABS: POC Glucose,Bedside 146 (70-110)
[2024-12-07 06:46] LABS: Basophils # 0.1 K/mm3 (0-0.2); Basophils % 0.5 % (0.1-2.0); Eosinophils # 0.2 Kmm3 (0.0-0.4); Eosinophils % 1.8 % (0.1-12.0); Hematocrit 37.2 % (37.0-47.0); Hemoglobin 11.4 g/dL (12.2-16.2); Immature Granulocytes # 0.07 10^3uL; Immature Granulocytes % 0.6 %; Lymphocytes # 2.2 K/mm3 (0.7-4.5); Lymphocytes % 19.4 % (10-50); Mean Corpuscular HGB Conc 30.6 g/dL (31.8-35.4); Mean Corpuscular Hemoglobin 27.5 pg (27.0-31.2); Mean Corpuscular Volume 89.6 fl (81-99); Mean Platelet Volume 9.8 fl (7.4-10.4); Monocytes # 0.7 K/mm3 (0.1-1.0); Monocytes % 6.2 % (1.7-9.3); Neutrophils % 71.5 % (37.0-80.0); Nucleated Red Blood Cells # 0 10^3/uL; Nucleated Red Blood Cells % 0 %; Platelet Count 300 K/mm3 (142-424); Red Blood Count 4.15 M/mm3 (4.20-5.40); Red Cell Distribution Width 17.3 % (11.5-17.5); Red Cell Distribution Width-SD 56.1 fL; White Blood Count 11.2 K/mm3 (4.8-10.8)
--- NOTE | 2024-12-07 07:15 | P.PN_ITS ---
<Statement entered by Jacinto Mayorga MD - 12/12/24 17:00> Personally evaluated the patient and agree with the plan of care as outlined by the ORGANIZATIONAL DEVELOPMENT DIRECTOR. Subjective *Date: 12/07/24 *Time: 07:15 Interval history: Patient transferred from [facility] after pacemaker placed Exam Data for Last 24 hours Vital signs and Labs for Last 24 Hours: Temp Pulse Resp BP Pulse Ox O2 Del Method O2 Flow Rate 98.2 F 90 16 150/65 H 96 Nasal Cannula 2 12/07/24 02:30 12/07/24 04:00 12/07/24 02:30 12/07/24 02:30 12/07/24 02:30 12/07/24 06:34 12/07/24 06:34 Laboratory Results - last 24 hr 12/07/24 00:17: WBC 11.5 H, RBC 4.51, Hgb 12.2, Hct 40.7, MCV 90.2, MCH 27.1, MCHC 30.0 L, RDW 17.3, Plt Count 327, MPV 9.5, Neut % (Auto) 71.2, Lymph % (Auto) 19.6, [place] % (Auto) 6.5, Eos % (Auto) 1.6, Baso % (Auto) 0.6, Neut # (Auto) 8.2 H, Lymph # (Auto) 2.3, [place] # (Auto) 0.8, Eos # (Auto) 0.2, Baso # (Auto) 0.1, Sodium 134 L, Potassium 4.1, Chloride 89 L, Carbon Dioxide 36 H, Anion Gap 13.1, BUN 22 H D, Creatinine 1.30 H D, Estimated Creat Clear 40, Estimated GFR 42 L, Est GFR ( Amer) 51 L D, Glucose 120 H, Calcium 9.3, Total Bilirubin 0.6, AST 97 H D, ALT 22, Alkaline Phosphatase 108, Troponin I 16.40 H, Total Protein 8.0, Albumin 4.3, Globulin 3.7 H, Albumin/Globulin Ratio 1.2, TSH 31.40 H, Free T4 0.67 L 12/07/24 03:06: Ur Random Urea Nitrogn 334, Urine Creatinine 61, Urine Sodium 54.0, Urine Total Protein 63.0 H 12/07/24 03:08: Troponin I 15.20 H 12/07/24 05:20: POC Glucose 146 H 12/07/24 06:01: WBC 11.2 H, RBC 4.15 L, Hgb 11.4 L, Hct 37.2, MCV 89.6, MCH 27.5, MCHC 30.6 L, RDW 17.3, Plt Count 300, MPV 9.8, Neut % (Auto) 71.5, Lymph % (Auto) 19.4, [place] % (Auto) 6.2, Eos % (Auto) 1.8, Baso % (Auto) 0.5, Neut # (Auto) 8.0 H, Lymph # (Auto) 2.2, [place] # (Auto) 0.7, Eos # (Auto) 0.2, Baso # (Auto) 0.1, Troponin I 13.00 H I & O for Last 24 hours: Intake & Output 12/04/24 12/05/24 12/06/24 12/07/24 23:59 23:59 23:59 23:59 Weight 191.87 kg Constitutional Constitutional: no acute distress, morbidly obese and obese *Routine HEENT Exam Head: Present normocephalic and atraumatic *Routine Neck Exam Neck: Present supple, full ROM and trachea midline *Routine Respiratory Exam Respiratory: Present diminished air movement, able to speak in complete sentences and symmetric chest movement *Routine Cardiovascular Exam Cardiovascular: Present Normal S1 and Normal S2 *Routine Abdominal Exam Abdominal: Present soft, normoactive bowel sounds and obese *Routine Extremities Exam Extremities: Present edema, full ROM and pulses intact Routine Back/Spine/Pelvis Exam Back/Spine: Present full ROM *Routine Skin Exam Skin: Present dry and warm *Routine Neurological Exam Neurological: Present alert, oriented X3, moving all extremities and normal speech Routine Psychiatric Exam Psychiatric: Present normal affect and normal thought process Assessment and Plan *Assessment and plan (1) Morbid obesity: Status: Acute Category: Medical Code(s): E66.01 - Morbid (severe) obesity due to excess calories (2) GWEN (acute kidney injury): Status: Acute Category: Medical Code(s): N17.9 - Acute kidney failure, unspecified (3) Elevated troponin: Status: Acute Category: Medical Code(s): R79.89 - Other specified abnormal findings of blood chemistry (4) Second degree heart block: Status: Acute Category: Medical Code(s): I44.1 - Atrioventricular block, second degree (5) GWEN (acute kidney injury): Status: Acute Category: Medical Code(s): N17.9 - Acute kidney failure, unspecified Plan Mobitz type II second-degree heart block - Status post pacemaker placement -Troponin continues to downward trend Acute kidney injury - Will avoid nephrotoxic drugs - Will obtain random urine sodium, random urine urea, random urine protein, random urine protein creatinine ratio, -Will give gentle IV hydration - Will consider ultrasound of the kidneys if no improvement Elevated liver enzymes - Will monitor for now - CMP daily Elevated troponin - Picker/Puller believes that this is an appropriate elevation - Will continue to trend troponins - EKG is without any acute findings for ST segment depression or elevation/STEMI -Patient is currently denying any chest pain Leukocytosis No worsening of leukocytosis patient has been afebrile over the course of the night Urinary tract infection -Will continue the Keflex 500 mg p.o. 3 times daily Plan: Labs are still pending for this a.m. Patient's troponin is downward trending Case was discussed with salad chef who anticipated this is an expected outcome Will discontinue Hernández catheter Have physical therapy and Occupational Therapy evaluate patient Patient voices she wants to go home so we will ensure she is discharged home safely Labs are still pending for this a.m. Still waiting on procalcitonin More than likely, patient could be discharged home safely today if not we can monitor for additional 24 hours depending on lab values I will discuss with attending
[2024-12-07 07:34] LABS: Alanine Aminotransferase 17 U/L (12-78); Alkaline Phosphatase 105 U/L (38-126); Aspartate Amino Transferase 75 U/L (14-36); Bilirubin,Total 0.5 mg/dl (0.2-1.3); Calcium 8.7 mg/dl (8.4-10.2); Chloride 91 mmol/L (98-107); Glucose 145 mg/dl (74-100); Potassium 4.2 mmoL/L (3.5-5.1); Sodium 132 mmol/L (136-145)
[2024-12-07 07:35] LABS: Albumin Level 3.7 g/dl (3.5-5.0); Albumin/Globulin Ratio 1.3 (1.1-1.8); Anion Gap 9.2 mEq/L (5-15); Blood Urea Nitrogen 21 mg/dl (7-17); Carbon Dioxide 36 mmol/L (22.0-30.0); Creatinine Clearance Estimated 43 mL/min (50-200); Estimated Glomerular Filt Rate 46 ml/min (>60); GFR (African American) 56 ML/MIN (>60); Globulin 2.8 g/dL (1.3-3.2); Total Protein,Serum 6.5 g/dl (6.3-8.2)
[2024-12-07 08:00] VITALS: BP 140/68; PULSE 78; PULSE 90; RESP 14; TEMP 37; O2SAT 96
[2024-12-07] MEDS: LEVOTHYROXINE 100MCG (0.1MG) TAB 300 MCG PO (08:50)
[2024-12-07] MEDS: HEPARIN SODIUM 5,000 UNIT/ML VIAL 5000 UNIT SUBCUT (08:51)
--- NOTE | 2024-12-07 09:09 | HMH.PHAINT1 ---
Pharmacy Intervention Comments: MEDICATION RECONCILIATION COMPLETED ON PATIENT USING EXTERNAL FILL HISTORY FROM PHARMACY AND DISCHARGE SUMMARY FROM PREVIOUS ADMISSION. -DG YEUNG, ROCKD
--- NOTE | 2024-12-07 09:23 | SW/DCPLANNER ---
Spoke with patient about home health services once she is medically stable and ready for discharge. Patient asked that i come back and see her later that she needs to speak to her kids. Lore Venegas
--- NOTE | 2024-12-07 10:20 | HMH.PTEV ---
Physical Therapy Evaluation Rehab PT IP Evaluation Start: 12/07/24 01:39 Freq: ONCE Status: Active Protocol: Document 12/07/24 10:06 DENISE (Rec: 12/07/24 10:19 DENISE [id number]) Subjective/History History History Per H&P: This is a 54-year- old obese female who has a past medical history significant for restless leg syndrome, glaucoma, diastolic dysfunction congestive heart failure, pulmonary hypertension, asthma, sleep apnea, COVID-19 infection, COPD, asthma, home O2 dependency at 2 L, hypothyroidism, ventral hernia , depression, gastritis, hypertension, and TIA who presents from [facility] as a transfer. Patient was recently seen at [facility] and evaluated and noted to have a Mobitz type II heart block. She was evaluated by cardiology, and unfortunately, due to patient' s body habitus she was unable to be accommodated with our Clinical Tech table. As a result, patient was transition to [facility] for further management. Due to some circumstances that are not clear, patient was transition back to [facility] after pacemaker was placed. I was contacted by hospitality house supervisor inquiring if I knew of this patient being transition back to [facility] for additional management. I was unaware of this patient's transfer to our facility. I contacted the attending physician who spoke candidly about the patient and the need to transfer to a higher level of care. After lengthy discussion, I spoke with the hospitality house supervisor and informed her that the attending would like for patient to be seen in the emergency room-this is since patient transfer was performed without any communication from prior facility-to evaluate for any acute illnesses. Dr. Carlin in the emergency room was kind of to receive patient in triage before excepting. Patient had notable acute kidney injury- prior to leaving for facility patient's creatinine was normal. She has functioning cardiac pacemaker in place with stable heart rate and blood pressure. Patient also had an increase in her liver enzymes. Urinalysis obtained on prior admission grew strep agalactiae which was resistant to tetracycline. I did receive a call from the resident from [facility] (Radha Hutchinson). She discussed the case with me at length. There was no mention of any prior conversation with an attending during our discussion. She did highlight that patient's TSH was abnormally high while at their facilities (TSH was 40). She was evaluated by their survey methodologist team given IV levothyroxine and continued on her maintenance dose of Synthroid-patient admits to not taking medication as prescribed-last admission she states that she would have missed 3 to 4 days of her levothyroxine. Moreover, Radha and I spoke concerning post management of pacemaker. She was prescribed Keflex 500 mg 3 times daily for 5 days for empiric treatment. Unfortunately, the conversation had between Radha and myself did not highlight the reason for transfer back to [facility]. Subjective Subjective PLOF: At baseline, pt reports she requires assistance from her son for bed mobility, transfers, and dressing/ bathing. Pt uses primarily a w /c for mobility which she moves independently on level surfaces using BLE. Pt uses a lift chair, BSC, and shower chair. Home: Lives with 3 children in a single story home with ramped entrance. Available Assistance: Pt's son assists as needed. New diagnosis of cancer in past 12 No months? [facility] How much help from another person do you currently need... Turning from your back to your side A little while in a flat bed without using bedrails? Moving from lying on back to sitting on A little the side of a flat bed without using bedrails? Moving to and from a bed to a chair ( A little including a wheelchair)? Standing up from a chair using your arms A little ? (e.g., wheelchair, bedside chair) Walking in hospital room? A lot Climbing 3-5 steps with a railing? Total Mobility Score 15 Mobility Level [facility] Mobility Calculator Mobility 4 Move to chair/ commode Rehab PT IP Eval Objective Appearance Patient Behavior Appropriate,Cooperative Patient Orientation Person,Place Difficulty following instructions none Speech Pattern Clear Ambulation Patient Able to Ambulate Yes Ambulation Observation IP General Gait Pattern Observation Wide Based Gait Ambulation Distance (feet) 3 Ambulation Assistive Device Rolling Walker Ambulation Ability Contact Guard/Hand Hold Balance Ability to Arise Able, uses arms to help Sitting Balance Steady, safe Standing Balance Steady, wide stance Dynamic Sitting Balance Ability Good Dynamic Standing Balance Ability Fair Transfers Bed Transfer Ability Minimal x 1 (25% assist) Sit to Stand Bed Transfer Ability Contact Guard/Hand Hold Rehab PT IP prob,goals,plan Problems Date of Evaluation: 12/07/24 Rehab Potential Rehab Potential Innapropriate for Skilled Therapy Discharge Plan PT Discharge Plan Pt safe to d/c home when deemed medically necessary d/t current level of mobility, home set-up, available equipment, and family support. Pt demo'd bed mobility with Min A for supine<>sitting. Pt able to stand from EOB with CGA and RW. Pt demo'd side steps to HOB with CGA. Pt is at baseline with her reported mobility. Pt not appropriate for skilled acute care PT at this time d/t pt?s mobility being at baseline. Eval Complexity Eval Charge Codes 35050 - Moderate Complexity PHYSICIAN CERTIFICATION: I certify the specified therapy services for Stacey George are required, authorized, and reviewed every 30 days.
--- NOTE | 2024-12-07 10:22 | P.CONCA_ITS ---
History of Present Illness History of Present Illness Consult date: 12/07/24 Requesting physician: Jacinto Mayorga Consult reason: known to you Chief complaint: S/p pacer insertion for symptomatic bradycardia Additional Medical History:: 1. Morbid obesity with BMI>70 2. Symptomatic bradycardia with Mobitz type 2 second degree AV block A. S/p Guzman pacer insertion, 11/2024 3. DM 4. HFpEF A. Echo, 09/2024, EF 55% with mild RV enlargement and mild reduction of RV function. No significant valve disease. 5. HONEY 6. 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 She was transferred back last night for recovery and possible placement in rehab facility. [facility] Disclaimer: The information contained in this section may have been updated after the patient was seen, as this information can be updated by other users. Medical History Abdominal pain UTI (urinary tract infection) Hospital discharge follow-up Establishing care with new doctor, encounter for Restless leg Glaucoma Arthritis of both knees Urinary incontinence Unspecified asthma, uncomplicated Tear of meniscus of knee Pre-diabetes Diastolic CHF, acute on chronic Pulmonary hypertension Elevated left ventricular end-diastolic pressure (LVEDP) Asthma exacerbation Sleep apnea History of COVID-19 COPD (chronic obstructive pulmonary disease) Asthma Abscess of groin, right Acute exacerbation of chronic obstructive airways disease Left against medical advice Dependent on wheelchair Assistance needed for continence Incisional hernia Complex large recurrent abdominal wall hernia (essentially with loss of doma in) and focal skin ulceration Lower leg pain Knee pain Vaginal bleeding Perimenopausal Cellulitis Hypothyroidism Dizziness Chest pain Sinusitis Tobacco abuse counseling Tobacco abuse HONEY (obstructive sleep apnea) Ventral hernia Dyspnea Depression Pharyngitis due to Streptococcus species Epigastric pain Gastritis Strep throat HTN (hypertension) Hypothyroidism (acquired) TIA (transient ischemic attack) COPD exacerbation Paresthesias Shortness of breath Acute bronchitis Tobacco abuse COPD (chronic obstructive pulmonary disease) Infiltrate of lung present on chest x-ray Atelectasis of right lung Cough Upper respiratory infection Surgical History History of lateral meniscus repair of right knee Pt is unsure if it was lateral or medial H/O tubal ligation Hx of cholecystectomy H/O hernia repair History of colon resection Family History Mother Hypertension Diabetes Father Cancer Social History (Updated 12/02/24 @ 21:43 by Nini Gonzalez RN) Smoking Status: Never smoker years smoked: 38 smoking status stop date: 3 months ago quit status: has quit before second hand exposure: Yes alcohol intake: never substance use type: denies use current occupational status: unemployed Travel in the last 8 weeks?: None household members: family and children housing: other lives independently: No marital status: legally number of children: 4 education level: other caffeine: Yes do you feel safe at home: Yes victim of physical abuse: No victim of emotional abuse: No victim of sexual abuse: No Review of Systems Review of Systems Review of systems:: pertinent systems reviewed and negative unless documented below *Cardiovascular Cardiovascular: Denies chest pain, Reports dyspnea and Reports dyspnea on exertion *Respiratory Respiratory: Reports dyspnea and Reports dyspnea on exertion *Neurologic Neurologic: Reports system reviewed and no additional complaints, except as documented Exam Data for Last 24 hours Vital signs and Labs for Last 24 Hours: Temp Pulse Resp BP Pulse Ox O2 Del Method O2 Flow Rate 98.6 F 78 14 140/68 96 Nasal Cannula 3 12/07/24 08:00 12/07/24 08:00 12/07/24 08:00 12/07/24 08:00 12/07/24 08:00 12/07/24 08:00 12/07/24 08:00 Laboratory Results - last 24 hr 12/07/24 00:17: WBC 11.5 H, RBC 4.51, Hgb 12.2, Hct 40.7, MCV 90.2, MCH 27.1, MCHC 30.0 L, RDW 17.3, Plt Count 327, MPV 9.5, Neut % (Auto) 71.2, Lymph % (Auto) 19.6, Lea % (Auto) 6.5, Eos % (Auto) 1.6, Baso % (Auto) 0.6, Neut # (Auto) 8.2 H, Lymph # (Auto) 2.3, Lea # (Auto) 0.8, Eos # (Auto) 0.2, Baso # (Auto) 0.1, Sodium 134 L, Potassium 4.1, Chloride 89 L, Carbon Dioxide 36 H, Anion Gap 13.1, BUN 22 H D, Creatinine 1.30 H D, Estimated Creat Clear 40, Estimated GFR 42 L, Est GFR ( Amer) 51 L D, Glucose 120 H, Calcium 9.3, Total Bilirubin 0.6, AST 97 H D, ALT 22, Alkaline Phosphatase 108, Troponin I 16.40 H, Total Protein 8.0, Albumin 4.3, Globulin 3.7 H, Albumin/Globulin Ratio 1.2, TSH 31.40 H, Free T4 0.67 L 12/07/24 03:06: Ur Random Urea Nitrogn 334, Urine Creatinine 61, Urine Sodium 54.0, Urine Total Protein 63.0 H 12/07/24 03:08: Troponin I 15.20 H 12/07/24 05:20: POC Glucose 146 H 12/07/24 06:01: WBC 11.2 H, RBC 4.15 L, Hgb 11.4 L, Hct 37.2, MCV 89.6, MCH 27.5, MCHC 30.6 L, RDW 17.3, Plt Count 300, MPV 9.8, Neut % (Auto) 71.5, Lymph % (Auto) 19.4, Lea % (Auto) 6.2, Eos % (Auto) 1.8, Baso % (Auto) 0.5, Neut # (Auto) 8.0 H, Lymph # (Auto) 2.2, Lea # (Auto) 0.7, Eos # (Auto) 0.2, Baso # (Auto) 0.1, Sodium 132 L, Potassium 4.2, Chloride 91 L, Carbon Dioxide 36 H, Anion Gap 9.2, BUN 21 H, Creatinine 1.20 H, Estimated Creat Clear 43, Estimated GFR 46 L, Est GFR ( Amer) 56 L, Glucose 145 H D, Calcium 8.7, Total Bilirubin 0.5, AST 75 H, ALT 17, Alkaline Phosphatase 105, Troponin I 13.00 H, Total Protein 6.5, Albumin 3.7 D, Globulin 2.8, Albumin/Globulin Ratio 1.3 I & O for Last 24 hours: Intake & Output 12/04/24 12/05/24 12/06/24 12/07/24 11:59 11:59 11:59 11:59 Intake Total 240 / 240 Output Total 200 / 200 Balance 40 / 40 Weight 423 lb Constitutional Constitutional: no acute distress *Routine Respiratory Exam Respiratory: Present decreased breath sounds *Routine Cardiovascular Exam Cardiovascular: Present RRR *Routine Abdominal Exam Abdominal: Present obese Meds Home Medications and Allergies Home Medications ?Medication ?Instructions ?Recorded ?Confirmed ?Type calcium carbonate (Calcium 600) 600 mg PO DAILY 10/03/23 12/07/24 History cholecalciferol (vitamin D3) 1,250 1,250 mcg PO WEEKLY #12 caps 05/26/24 12/07/24 Rx mcg (50,000 unit) capsule spironolactone 25 mg tablet 25 mg PO DAILY #90 tabs 07/06/24 12/07/24 Rx levothyroxine 150 mcg tablet 300 mcg PO DAILYDM 08/16/24 12/07/24 History cyanocobalamin (vitamin B-12) 1,000 mcg PO DAILY 09/24/24 12/07/24 History 1,000 mcg tablet fluticasone fur. 100 mcg-umeclid 1 inh inhalation DAILY 09/24/24 12/07/24 History 62.5 mcg-vilant 25 mcg inhalat.powder (Trelegy Ellipta) ipratropium 0.5 mg-albuterol 3 mg 3 ml inhalation QIDP PRN shortness 09/24/24 12/07/24 History (2.5 mg base)/3 mL nebulization of breath or wheezing soln lisinopril 40 mg tablet 40 mg PO DAILY 09/24/24 12/07/24 History trazodone 150 mg tablet 300 mg PO HS 09/24/24 12/07/24 History atorvastatin 40 mg tablet 40 mg PO HS #90 tabs 11/01/24 12/07/24 Rx semaglutide 0.25 mg or 0.5 mg (2 0.5 mg (0.374 mL) SQ WEEKLY #1.5 mL 11/01/24 12/07/24 Rx mg/1.5 mL) subcutaneous pen injector evolocumab 140 mg/mL subcutaneous 140 mg SQ Q2W #2 mL 11/24/24 12/07/24 Rx pen injector (Repkannan Marquezick) aspirin 81 mg tablet,delayed 81 mg PO DAILY 12/02/24 12/07/24 History release bupropion HCl 200 mg tablet,12 hr 400 mg PO DAILY 12/02/24 12/07/24 History sustained-release metformin 500 mg tablet 500 mg PO BIDWMEAL 12/02/24 12/07/24 History ondansetron 4 mg disintegrating 4 mg PO Q4HP PRN nausea, vomiting 12/02/24 12/07/24 History tablet oxybutynin chloride 5 mg tablet 5 mg PO BID 12/02/24 12/07/24 History ropinirole 4 mg tablet 4 mg PO DAILY 12/02/24 12/07/24 History meloxicam 15 mg tablet 15 mg PO DAILYP PRN Moderate Pain 12/03/24 12/07/24 History (Scale Score 5-6) torsemide 20 mg tablet 60 mg PO BIDL 12/03/24 12/07/24 History albuterol sulfate 90 mcg/actuation 2 puff inhalation Q4HP PRN 12/07/24 12/07/24 History aerosol inhaler Shortness Of Breath New Prescriptions to Start Prescriptions: Allergies Allergy/AdvReac Type Severity Reaction Status Date / Time adhesive tape (ADHESIVE TAPE) Allergy Unknown Blister Verified 11/22/24 14:36 hydromorphone (From DILAUDID) Allergy Unknown Hypotension Verified 11/22/24 14:36 nickel (NICKEL) Allergy Unknown Blister Verified 11/22/24 14:36 Assessment and Plan *Assessment and plan (1) Second degree heart block: Status: Acute Category: Medical Code(s): I44.1 - Atrioventricular block, second degree (2) Morbid obesity with BMI of 70 and over, adult: Status: Acute Category: Medical Code(s): E66.01 - Morbid (severe) obesity due to excess calories; Z68.45 - Body mass index [BMI] 70 or greater, adult (3) Hypothyroidism: Status: Acute Qualifiers: Hypothyroidism type: unspecified Qualified Code(s): E03.9 - Hypothyroidism, unspecified Category: Medical Code(s): E03.9 - Hypothyroidism, unspecified (4) Elevated troponin: Status: Acute Category: Medical Code(s): R79.89 - Other specified abnormal findings of blood chemistry (5) UTI (urinary tract infection): Status: Acute Qualifiers: Hematuria presence: without hematuria Urinary tract infection type: site unspecified Qualified Code(s): N39.0 - Urinary tract infection, site not specified Category: Medical Code(s): N39.0 - Urinary tract infection, site not specified (6) Transaminitis: Status: Acute Category: Medical Code(s): R74.01 - Elevation of levels of liver transaminase levels (7) Type 2 diabetes mellitus: Status: Acute Qualifiers: Diabetes mellitus complication status: without complication Diabetes mellitus vermin exterminator insulin use: without vermin exterminator use Qualified Code(s): E11.9 - Type 2 diabetes mellitus without complications Category: Medical Code(s): E11.9 - Type 2 diabetes mellitus without complications (8) (HFpEF) heart failure with preserved ejection fraction: Status: Acute Qualifiers: Heart failure chronicity: unspecified Qualified Code(s): I50.30 - Unspecified diastolic (congestive) heart failure Category: Medical Code(s): I50.30 - Unspecified diastolic (congestive) heart failure (9) Acute exacerbation of chronic obstructive pulmonary disease: Status: Acute Category: Medical Code(s): J44.1 - Chronic obstructive pulmonary disease with (acute) exacerbation (10) Depression: Status: Acute Qualifiers: Depression Type: unspecified Qualified Code(s): F32.A - Depression, unspecified Category: Medical Code(s): F32.A - Depression, unspecified (11) Generalized weakness: Status: Acute Category: Medical Code(s): R53.1 - Weakness (12) HONEY (obstructive sleep apnea): Status: Acute Category: Medical Code(s): G47.33 - Obstructive sleep apnea (adult) (pediatric) Plan 1. Symptomatic second degree AV block -s/p dual chamber Guzman pacer insertion at [facility] -site looks good -elevated troponin secondary to pacer insertion -EKG shows paced rhythm 2. Morbid obesity with BMI 70 -not bariatric surgery candidate due to depression -on ozempic 3. UTI -antibiotics per Hospitalist 4. HFpEF/EF 55% -continue lisinopril, spironolactone, torsemide -BNP 29 on 12/02/2024 5. DM type 2 with proteinuria -on ozempic and metformin -Hgb A1c 6.3 in 09/2024 6. Tobacco use/COPD with home oxygen use -tobacco cessation -saw Dr. Jean in past 7. HONEY -currently untreated due to broken CPAP machine -refer back to Dr. Jean as outpatient 8. Normal coronaries by cath 07/2021 -on ASA and statin -LDL 147 on 11/22/2024 9. GWEN -likely due to diuresis and UTI 10. Hypothyroidism -TSH 31.4 -continue replacement check limited echo due to concern for pericardial effusion after pacer insertion due to elevated troponin If echo looks good then OK for discharge from cardiology standpoint. Resume home meds: Aspirin 81 mg daily Atorvastatin 40 mg daily Repatha 140 mg subcu 2 weeks Lisinopril 40 mg daily Semaglutide 0.5 mg weekly Spironolactone 25 mg daily Torsemide 60 mg twice daily Follow up in 1 week
--- NOTE | 2024-12-07 11:21 | CA_ITS ---
APPROVED REPORT EXAM: Comprehensive 2D, Doppler, and color-flow Echocardiogram Hse Coordinator: NIDA Beatty, RVS Ht: 5 ft 3 in Wt: 424lbs BSA: 2.66 BP: 114/52 mmHg Indications: CHF, S/p pacer at outside facility, Elevated troponin, Morbid Obesity, Effusion check Echo Enhancing Agent Indication: Endocardial border delineation Agent(s) / Amount(s) Used: Definity 4 cc 2D Dimensions IVSd 1.20 cm LVEF (Visual) 71.30 % PWd 0.93 cm LVDd 5.19 cm LVDs 3.07 cm Left Atrium 4.45 cm M-Mode Dimensions RVDd 3.00 cm (0.9-2.6) LA Diam 2.64 cm (1.9-4.0) LVDd 5.07 cm (3.5-5.7) LVDs 4.08 cm (3.5-5.7) IVSd 1.27 cm (0.6-1.1) PWd 1.31 cm (0.6-1.1) EF (Teich) 39.90% EPSs 0.57 cm FS 19.50% EDV (Teich) 122.10 mL TAPSE 2.31 (<1.7) ESV (Teich) 73.40 mL LV Diastology E Decel Time 150 (160-240 msec) E/A Ratio 0.76 MED A' 10.30 cm/s LAT A' 13.20 cm/s Mitral Valve MV A Velocity 79.0 (40-130 cm/s) E/A Ratio 0.76 Tricuspid Valve TR P. Velocity 274.00 cm/s RAP Estimate 10.00 mmHg RVSP 40.00 mmHg Left Ventricle The left ventricle is normal size. The left ventricular systolic function is low-normal. There is increased LV wall thickness. The septum is asynchronous. Diastolic function is indeterminate. No left ventricle thrombus noted on this study. LVEF is 50%. Right Ventricle The right ventricle is mildly to moderately dilated. Right ventricle is mildly hypokinetic. Atria The left atrium size is normal. The right atrium size is normal. There is no Doppler evidence of interatrial shunt. Aortic Valve The aortic valve is mildly thickened. There is no aortic valvular stenosis. Trace aortic regurgitation. Mitral Valve The mitral valve is mildly thickened. No evidence of mitral valve stenosis. Trace mitral regurgitation. Tricuspid Valve Tricuspid valve is grossly normal in structure and function. Mild tricuspid regurgitation. RVSP is 30-35 mmHg. Pulmonic Valve The pulmonary valve is normal in structure. Mild pulmonic regurgitation. Great Vessels The aortic root is normal in size. IVC is normal in size and collapses >50% with inspiration. Pericardium There is no pericardial effusion. Other Information Study Quality: Technically Difficult Conclusion Technically difficult study due to poor acoustic windows. Low normal LV systolic function (LVEF 50%). Asynchronous septum. Mild to moderate RV dilation with mild reduction in RV function. Mild TR, mild PI. RVSP 30-35 mmHg. Electronically signed by : Candice Mann MD 12/08/2024 12:25:59
--- NOTE | 2024-12-07 11:41 | HMH.OTEV ---
OT Inpatient Evaluation Rehab OT IP Evaluation Start: 12/07/24 01:39 Freq: ONCE Status: Active Protocol: Document 12/07/24 11:28 BRAYDON (Rec: 12/07/24 11:41 BRAYDON [id number]) Rehab OT IP Assessment Subjective History PER HPI narrative: 54-year-old female presents to the ER from [facility] reportedly as a transfer with no complaints at this time. Patient was seen at this facility 12/02/2024 and initially admitted to our facility with bradycardia but then transferred to [facility] 2 days later for pacemaker placement due to her morbid obesity and the weight limitations of our Ceramic Tiler table. Shortly prior to patient's arrival, this facility received a phone call asking to give report of this patient arriving as a transfer from [facility], of which we knew nothing about. They could not tell us an accepting provider or whether the patient was to be admitted directly inpatient or go through the ER . Since there was no known accepting inpatient physician and significant confusion surrounding the situation she came to the ER for evaluation. Patient has no complaints right now. She states she had heard the physicians at [facility] talking about possibly discharging her but then some of the physicians were saying she needs to stay a few more days because of her bad thyroid. She says they asked her whether she wanted to stay at [facility] or go back to [place] and she stated she would prefer to be at [place] but she was not told she was being transferred here. She states she was never formally told she was being discharged either. They did remove her IVs prior to transporting her here but left the Hernández catheter in place. Patient reports no chest pain or difficulty breathing, she states her pacemaker site is mildly achy but otherwise feels good. She has had no fevers or chills, no redness, excessive pain, or discharge from the pacemaker site. She denies nausea, vomiting, abdominal pain, numbness, tingling, weakness, headache, dizziness, cough, congestion, or any other associated symptoms. Subjective I want them to x-ray my knees while I am here. Pt was supine in bed when therapy arrived. Pt orient x4. Pt agreed to sit on EOB. Pt was Mod A x2 to move from supine to EOB. Pt was able to sit on EOB with SBA. Pt demo with SOB and therapy instructed deep breathing. Pt then agreed to complete a sit to stand transfer. pt was Mod A x2 to move from EOB to stand with walker. Pt able to complete functional mobility task of approx 3 side steps with CGA. Pt then able to sit on EOB with CGA. Pt then reported they wanted to lay back in bed. Pt was Max A x3 to reposition and move from EOB to supine. Pt left with call light and all other needs within reach and nursing in room as therapy left. Pt reported they live at home with 3 children. Pt reports her son helps assist with transfers for functional mobility. pt reports they have a ramp and use feet to propel due to poor UB. Pt reports being on 2 L o2 at home. Pt reports kids are there 09/02 to assist with ADLs and IADLs. pt reports they have a potty chair and washes off with cloth due to not being able to transfer into tub with shower bench due to knees. pt reports they have a regular bed. At this time, pt is at baseline. Objective Patient Orientation Person,Place,Birthday,Patient Baseline Right Upper Extremity Gross ROM WFL Left Upper Extremity Gross ROM WFL Shoulder ROM Limitations Muscle Weakness Elbow ROM Limitations Muscle Weakness Wrist Limitations of Range of Motion Muscle Weakness Bed Mobility bed mobility-scooting,bed mobility - supine/sit,bed mobility - rolling Assist Level Maximum x 2 (75% assist) Transfer Training Sit/Stand/Step Transfer Assist Level Moderate x 2 (50% assist) Decrease in Endurance Yes Rehab OT IP prob,goals,plan Problems Date of Evaluation: 12/07/24 Rehab Potential Rehab Potential Innapropriate for Skilled Therapy Equipment Needs Assistive Devices Standard Walker,Wheelchair Discharge Plan OT Discharge Plan At this time, pt is at baseline for PLOF before admittance to [facility]. OT is recommending home health to assist pt in functional limitations in occupational performance. Pt will not be seen for skilled OT services and interventions while at [facility] . Eval Complexity Eval Charge Codes 65337 - High Complexity PHYSICIAN CERTIFICATION: I certify the specified therapy services for Stacey George are required, authorized, and reviewed every 30 days.
--- NOTE | 2024-12-07 12:03 | EXP.DC.SUM ---
General Admission date:: 12/07/24 HPI HPI HPI: This is a 54-year-old obese female who has a past medical history significant for restless leg syndrome, glaucoma, diastolic dysfunction congestive heart failure, pulmonary hypertension, asthma, sleep apnea, COVID-19 infection, COPD, asthma, home O2 dependency at 2 L, hypothyroidism, ventral hernia, depression, gastritis, hypertension, and TIA who presents from [facility] as a transfer. Patient was recently seen at [facility] and evaluated and noted to have a Mobitz type II heart block. She was evaluated by cardiology, and unfortunately, due to patient's body habitus she was unable to be accommodated with our Head Athletic Trainer/Strength Coach table. As a result, patient was transition to [facility] for further management. Due to some circumstances that are not clear, patient was transition back to [facility] after pacemaker was placed. I was contacted by housekeeper supervisor inquiring if I knew of this patient being transition back to [facility] for additional management. I was unaware of this patient's transfer to our facility. I contacted the attending physician who spoke candidly about the patient and the need to transfer to a higher level of care. After lengthy discussion, I spoke with the housekeeper supervisor and informed her that the attending would like for patient to be seen in the emergency room-this is since patient transfer was performed without any communication from prior facility-to evaluate for any acute illnesses. Dr. Carlin in the emergency room was kind of to receive patient in triage before excepting. Patient had notable acute kidney injury-prior to leaving for facility patient's creatinine was normal. She has functioning cardiac pacemaker in place with stable heart rate and blood pressure. Patient also had an increase in her liver enzymes. Urinalysis obtained on prior admission grew strep agalactiae which was resistant to tetracycline. I did receive a call from the resident from [facility] (Radha Hutchinson). She discussed the case with me at length. There was no mention of any prior conversation with an attending during our discussion. She did highlight that patient's TSH was abnormally high while at their facilities (TSH was 40). She was evaluated by their parts technician team given IV levothyroxine and continued on her maintenance dose of Synthroid-patient admits to not taking medication as prescribed-last admission she states that she would have missed 3 to 4 days of her levothyroxine. Moreover, Radha and I spoke concerning post management of pacemaker. She was prescribed Keflex 500 mg 3 times daily for 5 days for empiric treatment. Unfortunately, the conversation had between Radha and myself did not highlight the reason for transfer back to [facility]. During my evaluation of the patient, she was denying any chest pain, lightheadedness, dizziness, fever, chills, rigors, nausea, vomiting, or diarrhea. She wanted to have the Hernández catheter removed. She was delighted to be back at [facility]. She is currently without any complaints. Chest x-ray obtained was negative for any acute cardiopulmonary process. Additional pertinent labs obtained including white blood cell count 11.5, sodium 134, chloride of 89, carbon oxide of 36, BUN of 22, creatinine 1.30, GFR 42, blood glucose 120, AST of 97, troponin 16.40 (this value along with EKG was discussed with cardiology and there were no additional interventions required), TSH of 31.40, and free T40.67. Dr. Carlin was kind enough to speak with cardiology concerning findings of EKG and troponin Hospital Course Hospital Course Hospital Course: Stacey George is a 54-year-old female who presented as a back transfer from [facility] s/p pacemaker placement for Mobitz type II heart block. #Mobitz type II heart block #Elevated troponins ? Initially transferred to [facility] as our facility was unable to handle a BMI of 74 on our Head Athletic Trainer/Strength Coach table. ? S/p pacemaker placement. Site without signs of infection. ? Troponins initially 16, likely secondary to myocardial injury from pacemaker placement which is expected. Dr. David was consulted and agreed with this. No chest pain, shortness of breath. ? Cardiology evaluated, limited ECHO shows mildly reduced EF 50%. Started metoprolol succinate 25 mg. ? Will follow-up with cardiology within 1 week. #Urinary tract infection -Will continue the Keflex 500 mg p.o. 3 times daily #Obesity ? Complicating all aspects of care. Exam Data for Last 24 hours Vital signs and Labs for Last 24 Hours: Temp Pulse Resp BP Pulse Ox O2 Del Method O2 Flow Rate 98.6 F 78 14 140/68 96 Nasal Cannula 3 12/07/24 08:00 12/07/24 08:00 12/07/24 08:00 12/07/24 08:00 12/07/24 08:00 12/07/24 08:00 12/07/24 08:00 Laboratory Results - last 24 hr 12/07/24 00:17: WBC 11.5 H, RBC 4.51, Hgb 12.2, Hct 40.7, MCV 90.2, MCH 27.1, MCHC 30.0 L, RDW 17.3, Plt Count 327, MPV 9.5, Neut % (Auto) 71.2, Lymph % (Auto) 19.6, [place] % (Auto) 6.5, Eos % (Auto) 1.6, Baso % (Auto) 0.6, Neut # (Auto) 8.2 H, Lymph # (Auto) 2.3, [place] # (Auto) 0.8, Eos # (Auto) 0.2, Baso # (Auto) 0.1, Sodium 134 L, Potassium 4.1, Chloride 89 L, Carbon Dioxide 36 H, Anion Gap 13.1, BUN 22 H D, Creatinine 1.30 H D, Estimated Creat Clear 40, Estimated GFR 42 L, Est GFR ( Amer) 51 L D, Glucose 120 H, Calcium 9.3, Total Bilirubin 0.6, AST 97 H D, ALT 22, Alkaline Phosphatase 108, Troponin I 16.40 H, Total Protein 8.0, Albumin 4.3, Globulin 3.7 H, Albumin/Globulin Ratio 1.2, TSH 31.40 H, Free T4 0.67 L 12/07/24 03:06: Ur Random Urea Nitrogn 334, Urine Creatinine 61, Urine Sodium 54.0, Urine Total Protein 63.0 H 12/07/24 03:08: Troponin I 15.20 H 12/07/24 05:20: POC Glucose 146 H 12/07/24 06:01: WBC 11.2 H, RBC 4.15 L, Hgb 11.4 L, Hct 37.2, MCV 89.6, MCH 27.5, MCHC 30.6 L, RDW 17.3, Plt Count 300, MPV 9.8, Neut % (Auto) 71.5, Lymph % (Auto) 19.4, [place] % (Auto) 6.2, Eos % (Auto) 1.8, Baso % (Auto) 0.5, Neut # (Auto) 8.0 H, Lymph # (Auto) 2.2, [place] # (Auto) 0.7, Eos # (Auto) 0.2, Baso # (Auto) 0.1, Sodium 132 L, Potassium 4.2, Chloride 91 L, Carbon Dioxide 36 H, Anion Gap 9.2, BUN 21 H, Creatinine 1.20 H, Estimated Creat Clear 43, Estimated GFR 46 L, Est GFR ( Amer) 56 L, Glucose 145 H D, Calcium 8.7, Total Bilirubin 0.5, AST 75 H, ALT 17, Alkaline Phosphatase 105, Troponin I 13.00 H, Total Protein 6.5, Albumin 3.7 D, Globulin 2.8, Albumin/Globulin Ratio 1.3 I & O for Last 24 hours: Intake & Output 12/04/24 12/05/24 12/06/24 12/07/24 23:59 23:59 23:59 23:59 Intake Total 240 / 240 Output Total 1000 / 1000 Balance -760 / -760 Weight 191.87 kg Constitutional Constitutional: no acute distress and obese *Routine HEENT Exam Head: Present normocephalic Eye: Present EOMI and PERRL ENT: Present mucous membranes moist *Routine Neck Exam Neck: Present supple; Absent lymphadenopathy *Routine Respiratory Exam Respiratory: Present CTA bilaterally *Routine Cardiovascular Exam Cardiovascular: Present RRR *Routine Abdominal Exam Abdominal: Present soft and normoactive bowel sounds; Absent tenderness *Routine Extremities Exam Extremities: Absent cyanosis, clubbing or edema *Routine Skin Exam Skin: Present warm; Absent rash *Routine Neurological Exam Neurological: Present alert and oriented X3 Results Data Completed and Pending Labs on day of discharge: Labs from last 24 hours 12/07/24 12/07/24 12/07/24 06:01 05:20 03:08 WBC 11.2 H RBC 4.15 L Hgb 11.4 L Hct 37.2 MCV 89.6 MCH 27.5 MCHC 30.6 L RDW 17.3 Plt Count 300 MPV 9.8 Neut % (Auto) 71.5 Lymph % (Auto) 19.4 [place] % (Auto) 6.2 Eos % (Auto) 1.8 Baso % (Auto) 0.5 Neut # (Auto) 8.0 H Lymph # (Auto) 2.2 [place] # (Auto) 0.7 Eos # (Auto) 0.2 Baso # (Auto) 0.1 Sodium 132 L Potassium 4.2 Chloride 91 L Carbon Dioxide 36 H Anion Gap 9.2 BUN 21 H Creatinine 1.20 H Estimated Creat Clear 43 Estimated GFR 46 L Est GFR ( Amer) 56 L Glucose 145 H D POC Glucose 146 H Calcium 8.7 Total Bilirubin 0.5 AST 75 H ALT 17 Alkaline Phosphatase 105 Troponin I 13.00 H 15.20 H Total Protein 6.5 Albumin 3.7 D Globulin 2.8 Albumin/Globulin Ratio 1.3 TSH Free T4 Ur Random Urea Nitrogn Urine Creatinine Urine Sodium Urine Total Protein 12/07/24 12/07/24 03:06 00:17 WBC 11.5 H RBC 4.51 Hgb 12.2 Hct 40.7 MCV 90.2 MCH 27.1 MCHC 30.0 L RDW 17.3 Plt Count 327 MPV 9.5 Neut % (Auto) 71.2 Lymph % (Auto) 19.6 [place] % (Auto) 6.5 Eos % (Auto) 1.6 Baso % (Auto) 0.6 Neut # (Auto) 8.2 H Lymph # (Auto) 2.3 [place] # (Auto) 0.8 Eos # (Auto) 0.2 Baso # (Auto) 0.1 Sodium 134 L Potassium 4.1 Chloride 89 L Carbon Dioxide 36 H Anion Gap 13.1 BUN 22 H D Creatinine 1.30 H D Estimated Creat Clear 40 Estimated GFR 42 L Est GFR ( Amer) 51 L D Glucose 120 H POC Glucose Calcium 9.3 Total Bilirubin 0.6 AST 97 H D ALT 22 Alkaline Phosphatase 108 Troponin I 16.40 H Total Protein 8.0 Albumin 4.3 Globulin 3.7 H Albumin/Globulin Ratio 1.2 TSH 31.40 H Free T4 0.67 L Ur Random Urea Nitrogn 334 Urine Creatinine 61 Urine Sodium 54.0 Urine Total Protein 63.0 H DS: Diagnosis Discharge Diagnosis (1) Second degree heart block: Status: Acute Code(s): I44.1 - Atrioventricular block, second degree (2) Morbid obesity with BMI of 70 and over, adult: Status: Acute Code(s): E66.01 - Morbid (severe) obesity due to excess calories; Z68.45 - Body mass index [BMI] 70 or greater, adult (3) Hypothyroidism: Status: Acute Code(s): E03.9 - Hypothyroidism, unspecified Qualifiers: Hypothyroidism type: unspecified Qualified Code(s): E03.9 - Hypothyroidism, unspecified (4) Elevated troponin: Status: Acute Code(s): R79.89 - Other specified abnormal findings of blood chemistry (5) UTI (urinary tract infection): Status: Acute Code(s): N39.0 - Urinary tract infection, site not specified Qualifiers: Hematuria presence: without hematuria Urinary tract infection type: site unspecified Qualified Code(s): N39.0 - Urinary tract infection, site not specified (6) Transaminitis: Status: Acute Code(s): R74.01 - Elevation of levels of liver transaminase levels (7) Type 2 diabetes mellitus: Status: Acute Code(s): E11.9 - Type 2 diabetes mellitus without complications Qualifiers: Diabetes mellitus complication status: without complication Diabetes mellitus intermediate insulin use: without assistant terminal manager use Qualified Code(s): E11.9 - Type 2 diabetes mellitus without complications (8) (HFpEF) heart failure with preserved ejection fraction: Status: Acute Code(s): I50.30 - Unspecified diastolic (congestive) heart failure Qualifiers: Heart failure chronicity: unspecified Qualified Code(s): I50.30 - Unspecified diastolic (congestive) heart failure (9) Acute exacerbation of chronic obstructive pulmonary disease: Status: Acute Code(s): J44.1 - Chronic obstructive pulmonary disease with (acute) exacerbation (10) Depression: Status: Acute Code(s): F32.A - Depression, unspecified Qualifiers: Depression Type: unspecified Qualified Code(s): F32.A - Depression, unspecified (11) Generalized weakness: Status: Acute Code(s): R53.1 - Weakness (12) HONEY (obstructive sleep apnea): Status: Acute Code(s): G47.33 - Obstructive sleep apnea (adult) (pediatric) Meds Home Medications and Allergies Home Medications ?Medication ?Instructions ?Recorded ?Confirmed ?Type calcium carbonate (Calcium 600) 600 mg PO DAILY 10/03/23 12/07/24 History cholecalciferol (vitamin D3) 1,250 1,250 mcg PO WEEKLY #12 caps 05/26/24 12/07/24 Rx mcg (50,000 unit) capsule spironolactone 25 mg tablet 25 mg PO DAILY #90 tabs 07/06/24 12/07/24 Rx levothyroxine 150 mcg tablet 300 mcg PO DAILYDM 08/16/24 12/07/24 History cyanocobalamin (vitamin B-12) 1,000 mcg PO DAILY 09/24/24 12/07/24 History 1,000 mcg tablet fluticasone fur. 100 mcg-umeclid 1 inh inhalation DAILY 09/24/24 12/07/24 History 62.5 mcg-vilant 25 mcg inhalat.powder (Trelegy Ellipta) ipratropium 0.5 mg-albuterol 3 mg 3 ml inhalation QIDP PRN shortness 09/24/24 12/07/24 History (2.5 mg base)/3 mL nebulization of breath or wheezing soln lisinopril 40 mg tablet 40 mg PO DAILY 09/24/24 12/07/24 History trazodone 150 mg tablet 300 mg PO HS 09/24/24 12/07/24 History atorvastatin 40 mg tablet 40 mg PO HS #90 tabs 11/01/24 12/07/24 Rx semaglutide 0.25 mg or 0.5 mg (2 0.5 mg (0.374 mL) SQ WEEKLY #1.5 mL 11/01/24 12/07/24 Rx mg/1.5 mL) subcutaneous pen injector evolocumab 140 mg/mL subcutaneous 140 mg SQ Q2W #2 mL 11/24/24 12/07/24 Rx pen injector (Meli Dowling) aspirin 81 mg tablet,delayed 81 mg PO DAILY 12/02/24 12/07/24 History release bupropion HCl 200 mg tablet,12 hr 400 mg PO DAILY 12/02/24 12/07/24 History sustained-release metformin 500 mg tablet 500 mg PO BIDWMEAL 12/02/24 12/07/24 History ondansetron 4 mg disintegrating 4 mg PO Q4HP PRN nausea, vomiting 12/02/24 12/07/24 History tablet oxybutynin chloride 5 mg tablet 5 mg PO BID 12/02/24 12/07/24 History ropinirole 4 mg tablet 4 mg PO DAILY 12/02/24 12/07/24 History meloxicam 15 mg tablet 15 mg PO DAILYP PRN Moderate Pain 12/03/24 12/07/24 History (Scale Score 5-6) torsemide 20 mg tablet 60 mg PO BIDL 12/03/24 12/07/24 History albuterol sulfate 90 mcg/actuation 2 puff inhalation Q4HP PRN 12/07/24 12/07/24 History aerosol inhaler Shortness Of Breath cephalexin 500 mg capsule 500 mg PO TID 4 days #12 caps 12/07/24 Rx metoprolol succinate 25 mg 25 mg PO DAILY 30 days #30 tabs 12/07/24 Rx tablet,extended release 24 hr New Prescriptions to Start Prescriptions: Jacinto Reynoso metoprolol succinate Jacinto Mayorga Allergies Allergy/AdvReac Type Severity Reaction Status Date / Time adhesive tape (ADHESIVE TAPE) Allergy Unknown Blister Verified 11/22/24 14:36 hydromorphone (From DILAUDID) Allergy Unknown Hypotension Verified 11/22/24 14:36 nickel (NICKEL) Allergy Unknown Blister Verified 11/22/24 14:36 Discharge Plan Disposition Patient Disposition: Home, Self-Care Condition: Fair Follow up Plan Follow up with: Nile Fernandez PA [Physician Chief Librarian Extension Department, Cardiology] - 12/14/24 10:30 am Prescriptions/Medication Reconciliation: New cephalexin 500 mg Capsule 500 mg PO TID 4 Days Qty: 12 0RF metoprolol succinate 25 mg Tablet Extended Release 24 Hr 25 mg PO DAILY 30 Days Qty: 30 0RF Continued levothyroxine 150 mcg tablet 300 mcg PO DAILYDM Patient Comments: TAKE TWO TABLETS BY MOUTH EVERY DAY IN THE MORNING cholecalciferol (vitamin D3) 1,250 mcg (50,000 unit) capsule 1,250 mcg PO WEEKLY Qty: 12 3RF spironolactone 25 mg tablet 25 mg PO DAILY Qty: 90 3RF atorvastatin 40 mg tablet 40 mg PO HS Qty: 90 1RF semaglutide 0.25 mg or 0.5 mg(2 mg/1.5 mL) pen injector 0.5 mg SQ WEEKLY Qty: 1.5 0RF Repatha SureClick 140 mg/mL pen injector 140 mg SQ Q2W Qty: 2 5RF calcium carbonate [Calcium 600] 600 mg calcium (1,500 mg) Tablet 600 mg PO DAILY oxybutynin chloride 5 mg tablet 5 mg PO BID ropinirole 4 mg tablet 4 mg PO DAILY metformin 500 mg tablet 500 mg PO BIDWMEAL aspirin 81 mg tablet,delayed release (DR/EC) 81 mg PO DAILY ondansetron 4 mg tablet,disintegrating 4 mg PO Q4HP PRN (Reason: nausea, vomiting) bupropion HCl 200 mg tablet sustained-release 12 hr 400 mg PO DAILY torsemide 20 mg tablet 60 mg PO BIDL meloxicam 15 mg tablet 15 mg PO DAILYP PRN (Reason: Moderate Pain (Scale Score 5-6)) cyanocobalamin (vitamin B-12) 1,000 mcg tablet 1,000 mcg PO DAILY Trelegy Ellipta 100-62.5-25 mcg blister with device 1 inh INHALATION DAILY Patient Comments: INHALE 1 PUFF BY MOUTH EVERY DAY --RINSE MOUTH AFTER USE-- ipratropium-albuterol 0.5 mg-3 mg(2.5 mg base)/3 mL solution for nebulization 3 ml inhalation QIDP PRN (Reason: shortness of breath or wheezing) trazodone 150 mg tablet 300 mg PO HS lisinopril 40 mg Tablet 40 mg PO DAILY albuterol sulfate 90 mcg/actuation HFA aerosol inhaler 2 puff inhalation Q4HP PRN (Reason: Shortness Of Breath) Problem Reconciliation Problems Reviewed?: Yes Patient Discharge Instructions Patient Instructions: DI for Heart Block Print Language: [place] Citizen Providers Primary Care Provider: Provider,Referral Admit Provider: Jacinto Mayorga Attending Provider: Jacinto Mayorga
[2024-12-07] MEDS: DEFINITY US ECHO CONTRAST 2ML INJ 2 MG IV (12:06)
[2024-12-07] MEDS: humaLOG 100 UNITS/ML 10ML VIAL (SSI) SUBCUT (12:17)
--- NOTE | 2024-12-07 13:00 | SW/DCPLANNER ---
Addendum entered by Erin Clinton 12/08/24 09:44: [facility] is able to accept patient. Lore Venegas Original Note: Spoke with patient about home health services once she is medically stable and ready for discharge. Patient stated that she is interested and that she has no preference of what agency i send her information to. I faxed patients information to [facility] and will update once I hear back if they can accept the patient or not. Lore Venegas
[2024-12-07] MEDS: METOPROLOL SUCCINATE XL 25MG TABLET 25 MG PO (15:20)
[2024-12-07 15:21] LABS: POC Glucose,Bedside 180 (70-110)
--- NOTE | 2024-12-08 10:33 | SW/DCPLANNER ---
Spoke with patient on the phone. Patient stated that she is feeling good. Patient stated that they brought her new medicine to her room. Patient stated that she is aware of her appointment. Patient stated that she has no concerns or questions at this time. Lore Venegas
[2024-12-08 11:12] LABS: Albumin, U 160.1 ug/mL (Not Estab.); Albumin/Creatinine Ratio 295 mg/g creat (0-29); Creatinine, Urine 54.2 mg/dL (Not Estab.)
== END 2024-12-07 16:57 | disposition home or self-care (01) ==
LOC: ER 23:57 → 2ND 12-07 01:52
PROVIDERS: Nurse Practitioner Family; Admitting Provider Student in an Organized Health Care Education/Training Program; Emergency Provider Emergency Medicine; Visit Provider Student in an Organized Health Care Education/Training Program
DX: N17.9 Acute kidney failure, unspecified (principal); I44.1 Atrioventricular block, second degree; E66.01 Morbid (severe) obesity due to excess calories; Z68.45 Body mass index [BMI] 70 or greater, adult; E03.9 Hypothyroidism, unspecified; R79.89 Other specified abnormal findings of blood chemistry; N39.0 Urinary tract infection, site not specified; R74.01 Elevation of levels of liver transaminase levels; E11.9 Type 2 diabetes mellitus without complications; I50.30 Unspecified diastolic (congestive) heart failure; J44.1 Chronic obstructive pulmonary disease with (acute) exacerbation; F32.A Depression, unspecified; G47.33 Obstructive sleep apnea (adult) (pediatric); R74.8 Abnormal levels of other serum enzymes; D72.829 Elevated white blood cell count, unspecified; M17.0 Bilateral primary osteoarthritis of knee; E78.5 Hyperlipidemia, unspecified; I11.0 Hypertensive heart disease with heart failure; Z95.0 Presence of cardiac pacemaker; Z86.73 Personal history of transient ischemic attack (TIA), and cerebral infarction without residual deficits; Z98.890 Other specified postprocedural states; Z98.51 Tubal ligation status; Z90.49 Acquired absence of other specified parts of digestive tract; Z82.49 Family history of ischemic heart disease and other diseases of the circulatory system; Z83.3 Family history of diabetes mellitus; Z56.0 Unemployment, unspecified; Z77.22 Contact with and (suspected) exposure to environmental tobacco smoke (acute) (chronic); Z91.048 Other nonmedicinal substance allergy status; Z88.5 Allergy status to narcotic agent; Z79.899 Other long term (current) drug therapy; Z79.84 Long term (current) use of oral hypoglycemic drugs; Z79.82 Long term (current) use of aspirin; G25.81 Restless legs syndrome; I07.1 Rheumatic tricuspid insufficiency; I37.1 Nonrheumatic pulmonary valve insufficiency; Z79.890 Hormone replacement therapy
CPT/HCPCS: 36415; 71045; 80053; 82043; 82570; 82962; 84156; 84439; 84443; 84484; 84540; 85025; 87086; 93005; 93308; 97162; 97167; 97530; 99285; G0378; J1644; J7030; Q9957

== ENCOUNTER 2024-12-11 17:50 | Emergency (ER) | payer MEDICARE, OTHER, SELFPAY ==
--- NOTE | 2024-12-11 17:45 | ECG_ITS ---
APPROVED REPORT Exam: Resting ECG HR:95 bpm ECG Measurements Heart Rate 95 AXES NV 210 P 72 QRSd 121 QRS 83 QT 338 T -76 QTc 391 Conclusion ELECTRONIC VENTRICULAR PACEMAKER ABNORMAL RHYTHM ECG Electronically signed by : CHRISTINA BOWLES, 12/11/2024 23:26:03
[2024-12-11 17:50] VITALS: BP 153/79; PULSE 104; RESP 22; TEMP 36.6; O2SAT 98; BMI 73.8
[2024-12-11 17:53] VITALS: BMI 73.8
[2024-12-11 18:00] LABS: VBG Base Excess 6.8 mmol/L (-2.4-2.3); VBG HCO3 30.9 mmol/L (23-30); VBG Oxygen Saturation 97.9 % (50-70); VBG PCO2 46.2 mmol/L (35-51); VBG PH 7.44 mmol/L (7.31-7.41); VBG PO2 101.5 mmol/L (28-40); VBG Total CO2 32.3 mmol/L (23-27)
[2024-12-11 18:01] LABS: Lactate Venous 2.8 mmol/L (0.4-2.0)
[2024-12-11 18:02] VITALS: BP 142/72; PULSE 88; O2SAT 100
[2024-12-11 18:02] LABS: Basophils # 0.1 K/mm3 (0-0.2); Basophils % 0.6 % (0.1-2.0); Eosinophils # 0.2 Kmm3 (0.0-0.4); Hematocrit 34.1 % (37.0-47.0); Hemoglobin 9.9 g/dL (12.2-16.2); Immature Granulocytes # 0.07 10^3uL; Immature Granulocytes % 0.7 %; Lymphocytes % 20.8 % (10-50); Mean Corpuscular Hemoglobin 26.9 pg (27.0-31.2); Mean Corpuscular Volume 92.7 fl (81-99); Mean Platelet Volume 10.5 fl (7.4-10.4); Monocytes # 0.5 K/mm3 (0.1-1.0); Monocytes % 5.4 % (1.7-9.3); Neutrophils # 6.9 K/mm3 (1.8-7.8); Neutrophils % 70.5 % (37.0-80.0); Nucleated Red Blood Cells # 0 10^3/uL; Nucleated Red Blood Cells % 0 %; Platelet Count 238 K/mm3 (142-424); Red Blood Count 3.68 M/mm3 (4.20-5.40); Red Cell Distribution Width 17.2 % (11.5-17.5); Red Cell Distribution Width-SD 58.4 fL; White Blood Count 9.8 K/mm3 (4.8-10.8)
[2024-12-11 18:05] LABS: Chloride 96 mmol/L (98-107)
--- OUTSIDE RECORDS SUMMARY | 2024-12-11 18:05 | XMS_ITS ---
Author Organization Unknown Encounters Encounter Type Performer Location Encounter Date Encoun ter Notes virtual Andreina Hernandez - [id number]:13.000Z no notes virtual Yogesh Diaz - [id number]:0 5.000Z no notes virtual Data Migration User - [id number] :50.000Z no notes Patient Care team information Name Category Status Period Participants - - Proposed period not known -
[2024-12-11 18:06] LABS: Albumin Level 3.5 g/dl (3.5-5.0); Sodium 135 mmol/L (136-145)
[2024-12-11 18:08] LABS: Blood Urea Nitrogen 13 mg/dl (7-17); Creatinine Clearance Estimated 65 mL/min (50-200); Estimated Glomerular Filt Rate 74 ml/min (>60); GFR (African American) 90 ML/MIN (>60)
[2024-12-11 18:09] LABS: Alanine Aminotransferase 17 U/L (12-78); Albumin/Globulin Ratio 1.1 (1.1-1.8); Alkaline Phosphatase 79 U/L (38-126); Aspartate Amino Transferase 30 U/L (14-36); Bilirubin,Total 0.3 mg/dl (0.2-1.3); Calcium 8.7 mg/dl (8.4-10.2); Carbon Dioxide 35 mmol/L (22.0-30.0); Globulin 3.1 g/dL (1.3-3.2); Glucose 280 mg/dl (74-100); Total Protein,Serum 6.6 g/dl (6.3-8.2)
--- NOTE | 2024-12-11 18:35 | [facility].EDGENADL ---
Discharge Plan Disposition Patient Disposition: Home, Self-Care Condition: Good Prescriptions Prescriptions: No Action levothyroxine 150 mcg tablet 300 mcg PO DAILYDM Patient Comments: TAKE TWO TABLETS BY MOUTH EVERY DAY IN THE MORNING cholecalciferol (vitamin D3) 1,250 mcg (50,000 unit) capsule 1,250 mcg PO WEEKLY Qty: 12 3RF spironolactone 25 mg tablet 25 mg PO DAILY Qty: 90 3RF atorvastatin 40 mg tablet 40 mg PO HS Qty: 90 1RF semaglutide 0.25 mg or 0.5 mg(2 mg/1.5 mL) pen injector 0.5 mg SQ WEEKLY Qty: 1.5 0RF Repatha SureClick 140 mg/mL pen injector 140 mg SQ Q2W Qty: 2 5RF calcium carbonate [Calcium 600] 600 mg calcium (1,500 mg) Tablet 600 mg PO DAILY oxybutynin chloride 5 mg tablet 5 mg PO BID ropinirole 4 mg tablet 4 mg PO DAILY metformin 500 mg tablet 500 mg PO BIDWMEAL aspirin 81 mg tablet,delayed release (DR/EC) 81 mg PO DAILY ondansetron 4 mg tablet,disintegrating 4 mg PO Q4HP PRN (Reason: nausea, vomiting) bupropion HCl 200 mg tablet sustained-release 12 hr 400 mg PO DAILY torsemide 20 mg tablet 60 mg PO BIDL meloxicam 15 mg tablet 15 mg PO DAILYP PRN (Reason: Moderate Pain (Scale Score 5-6)) cyanocobalamin (vitamin B-12) 1,000 mcg tablet 1,000 mcg PO DAILY Trelegy Ellipta 100-62.5-25 mcg blister with device 1 inh INHALATION DAILY Patient Comments: INHALE 1 PUFF BY MOUTH EVERY DAY --RINSE MOUTH AFTER USE-- ipratropium-albuterol 0.5 mg-3 mg(2.5 mg base)/3 mL solution for nebulization 3 ml inhalation QIDP PRN (Reason: shortness of breath or wheezing) trazodone 150 mg tablet 300 mg PO HS lisinopril 40 mg Tablet 40 mg PO DAILY albuterol sulfate 90 mcg/actuation HFA aerosol inhaler 2 puff inhalation Q4HP PRN (Reason: Shortness Of Breath) cephalexin 500 mg Capsule 500 mg PO TID 4 Days Qty: 12 0RF metoprolol succinate 25 mg Tablet Extended Release 24 Hr 25 mg PO DAILY 30 Days Qty: 30 0RF Activity Restrictions/Add. Instructions Additional Instructions/Restrictions: I recommend strongly following up with your PCP this week. If you have any persistent new or worsening signs or symptoms follow-up with your PCP sooner or return to the ER as needed. I recommend utilizing the Magic mouthwash 4 times a day as needed for your aphthous ulcers Clinical Impressions Clinical Impression: Slurred speech, Aphthous ulcer of mouth Print Language Print Language: Pakistani Discharge ED Provider: Brijesh Hollis General Adult HPI <KEVON Gold - Last Filed: 12/11/24 21:13> General Chief complaint: Dizziness Stated complaint: labored breathing, slurred speech Time Seen by Provider: 12/11/24 18:35 Mode of Arrival: EMS Source of Information: Patient and EMS Description of Symptoms (Recalled from ER Triage Doc. by RN): pt presents to ED with c/o slurred speech, dizziness, lightheaded. pt reports she was yelling for her son to come help her but he was not home. pt reports that when son arrived home she was trying to talk to her and she was unable to get her words out. pt reports that she felt like she was in a brain fog. pt reports that symptoms have been intermittent today. pt wears 2L NC baseline. History of Present Illness HPI narrative: Patient presents for evaluation of slurred speech and confusion. Patient states she awoke this morning and was having difficulty talking with slurred speech and confusion. Last known well at before bed last night. She awoke around 11 AM. She has had intermittent episodes of this several times today that have not lasted. She denies any other focal findings including headache chest pain fever chills hemoptysis hematochezia melena nausea vomiting diarrhea. Of note patient recently underwent pacemaker procedure for symptomatic bradycardia at the [facility]. She also has morbid obesity with alveolar hypoventilation and has to sleep sitting up in a chair does not have a CPAP machine. She is also complaining of sores in her mouth. Related Data Home Medications ?Medication ?Instructions ?Recorded ?Confirmed calcium carbonate (Calcium 600) 600 mg PO DAILY 10/03/23 12/07/24 levothyroxine 150 mcg tablet 300 mcg PO DAILYDM 08/16/24 12/07/24 cyanocobalamin (vitamin B-12) 1,000 mcg PO DAILY 09/24/24 12/07/24 1,000 mcg tablet fluticasone fur. 100 mcg-umeclid 1 inh inhalation DAILY 09/24/24 12/07/24 62.5 mcg-vilant 25 mcg inhalat.powder (Trelegy Ellipta) ipratropium 0.5 mg-albuterol 3 mg 3 ml inhalation QIDP PRN shortness 09/24/24 12/07/24 (2.5 mg base)/3 mL nebulization of breath or wheezing soln lisinopril 40 mg tablet 40 mg PO DAILY 09/24/24 12/07/24 trazodone 150 mg tablet 300 mg PO HS 09/24/24 12/07/24 aspirin 81 mg tablet,delayed 81 mg PO DAILY 12/02/24 12/07/24 release bupropion HCl 200 mg tablet,12 hr 400 mg PO DAILY 12/02/24 12/07/24 sustained-release metformin 500 mg tablet 500 mg PO BIDWMEAL 12/02/24 12/07/24 ondansetron 4 mg disintegrating 4 mg PO Q4HP PRN nausea, vomiting 12/02/24 12/07/24 tablet oxybutynin chloride 5 mg tablet 5 mg PO BID 12/02/24 12/07/24 ropinirole 4 mg tablet 4 mg PO DAILY 12/02/24 12/07/24 meloxicam 15 mg tablet 15 mg PO DAILYP PRN Moderate Pain 12/03/24 12/07/24 (Scale Score 5-6) torsemide 20 mg tablet 60 mg PO BIDL 12/03/24 12/07/24 albuterol sulfate 90 mcg/actuation 2 puff inhalation Q4HP PRN 12/07/24 12/07/24 aerosol inhaler Shortness Of Breath Previous Rx's ?Medication ?Instructions ?Recorded cholecalciferol (vitamin D3) 1,250 1,250 mcg PO WEEKLY #12 caps 05/26/24 mcg (50,000 unit) capsule spironolactone 25 mg tablet 25 mg PO DAILY #90 tabs 07/06/24 atorvastatin 40 mg tablet 40 mg PO HS #90 tabs 11/01/24 semaglutide 0.25 mg or 0.5 mg (2 0.5 mg (0.374 mL) SQ WEEKLY #1.5 mL 11/01/24 mg/1.5 mL) subcutaneous pen injector evolocumab 140 mg/mL subcutaneous 140 mg SQ Q2W #2 mL 11/24/24 pen injector (Meli Dowling) cephalexin 500 mg capsule 500 mg PO TID 4 days #12 caps 12/07/24 metoprolol succinate 25 mg 25 mg PO DAILY 30 days #30 tabs 12/07/24 tablet,extended release 24 hr Allergies Allergy/AdvReac Type Severity Reaction Status Date / Time adhesive tape (ADHESIVE TAPE) Allergy Unknown Blister Verified 11/22/24 14:36 hydromorphone (From DILAUDID) Allergy Unknown Hypotension Verified 11/22/24 14:36 nickel (NICKEL) Allergy Unknown Blister Verified 11/22/24 14:36 [facility] <KEVON Gold - Last Filed: 12/11/24 21:13> [facility] Disclaimer: The information contained in this section may have been updated after the patient was seen, as this information can be updated by other users. Medical History Abdominal pain UTI (urinary tract infection) Hospital discharge follow-up Establishing care with new doctor, encounter for Restless leg Glaucoma Arthritis of both knees Urinary incontinence Unspecified asthma, uncomplicated Tear of meniscus of knee Pre-diabetes Diastolic CHF, acute on chronic Pulmonary hypertension Elevated left ventricular end-diastolic pressure (LVEDP) Asthma exacerbation Sleep apnea History of COVID-19 COPD (chronic obstructive pulmonary disease) Asthma Abscess of groin, right Acute exacerbation of chronic obstructive airways disease Left against medical advice Dependent on wheelchair Assistance needed for continence Incisional hernia Complex large recurrent abdominal wall hernia (essentially with loss of domain) and focal skin ulceration Lower leg pain Knee pain Vaginal bleeding Perimenopausal Cellulitis Hypothyroidism Dizziness Chest pain Sinusitis Tobacco abuse counseling Tobacco abuse HONEY (obstructive sleep apnea) Ventral hernia Dyspnea Depression Pharyngitis due to Streptococcus species Epigastric pain Gastritis Strep throat HTN (hypertension) Hypothyroidism (acquired) TIA (transient ischemic attack) COPD exacerbation Paresthesias Shortness of breath Acute bronchitis Tobacco abuse COPD (chronic obstructive pulmonary disease) Infiltrate of lung present on chest x-ray Atelectasis of right lung Cough Upper respiratory infection Surgical History History of lateral meniscus repair of right knee Pt is unsure if it was lateral or medial H/O tubal ligation Hx of cholecystectomy H/O hernia repair History of colon resection Family History Mother Hypertension Diabetes Father Cancer Social History (Updated 12/02/24 @ 21:43 by Nini Gonzalez RN) Smoking Status: Never smoker years smoked: 38 smoking status stop date: 3 months ago quit status: has quit before second hand exposure: Yes alcohol intake: never substance use type: denies use current occupational status: unemployed Travel in the last 8 weeks?: None household members: family and children housing: other lives independently: No marital status: legally number of children: 4 education level: other caffeine: Yes do you feel safe at home: Yes victim of physical abuse: No victim of emotional abuse: No victim of sexual abuse: No Have you lived/traveled outside [place] in past 30 days?: No Contact w/someone who lives/traveled outside [place] past 30 days?: No Exposure to someone with infectious disease in past 14 days?: No Do you have a fever (greater than 100.4 F or 38 C)?: No Have you tested positive for COVID-19?: No Exposed to someone with COVID-19 in past 14 days?: No Do you have a sore throat?: No Do you have a cough?: No Do you have any weakness?: No Do you have any diarrhea?: No Are you experiencing any unusual bleeding?: No Do you have any muscle aches/pain?: No Do you have any abdominal pain?: No Are you experiencing loss of taste or smell?: No Other Medical History Have you received the Flu Vaccine for this season: No Have you received the Pneumonia Vaccine: No <KEVON Gold - Last Filed: 12/11/24 21:13> ROS Obtained: Yes Systems reviewed as appropriate & no additional complaints except as documented Physical Exam <KEVON Gold - Last Filed: 12/11/24 21:13> General General appearance: alert and in no apparent distress Respiratory Respiratory exam: Present normal lung sounds bilaterally Cardiovascular Cardiovascular exam: Present regular rate Neurological Exam Neurological exam: Present alert and oriented X3 Medical Decision Making <KEVON Gold - Last Filed: 12/11/24 21:13> Medical Records Medical records reviewed: Yes I reviewed the patient's medical records. Screening: Per USPSTF and CDC recommendations, given the prevalence of disease in our region, it is our hospital?s policy to screen for HIV and viral Hepatitis for all patients aged 18 and over and those with ongoing risk factors. [place] Inquiry Pt receiving controlled substance: No Vital Signs: 12/11/24 17:50 12/11/24 18:02 12/11/24 20:57 Temperature 97.9 F 98.4 F Temperature Source Oral Pulse Rate 88 88 Pulse Rate [Left Radial] 104 H Respiratory Rate 22 18 Blood Pressure 142/72 H 148/88 H Blood Pressure [Right Arm] 153/79 H Blood Pressure Mean [Right Arm] 103 02 Sat by Pulse Oximetry 98 100 Oxygen Delivery Method Nasal Cannula Oxygen Flow Rate (LPM) 2 Lab Data Lab results reviewed: Yes I reviewed the patient's lab results. Lab Results 12/11/24 17:44: WBC 9.8, RBC 3.68 L, Hgb 9.9 L, Hct 34.1 L, MCV 92.7, MCH 26.9 L, MCHC 29.0 L, RDW 17.2, Plt Count 238, MPV 10.5 H, Neut % (Auto) 70.5, Lymph % (Auto) 20.8, [place]oc[place]ontas % (Auto) 5.4, Eos % (Auto) 2.0, Baso % (Auto) 0.6, Neut # (Auto) 6.9, Lymph # (Auto) 2.0, [place] # (Auto) 0.5, Eos # (Auto) 0.2, Baso # (Auto) 0.1, Sodium 135 L, Potassium 5.0, Chloride 96 L, Carbon Dioxide 35 H, Anion Gap 9.0, BUN 13, Creatinine 0.80, Estimated Creat Clear 65, Estimated GFR 74, Est GFR ( Amer) 90, Glucose 280 H, Calcium 8.7, Total Bilirubin 0.3, AST 30, ALT 17, Alkaline Phosphatase 79, Total Protein 6.6, Albumin 3.5, Globulin 3.1, Albumin/Globulin Ratio 1.1 12/11/24 17:54: VBG pH 7.44 H, VBG pCO2 46.2, VBG pO2 101.5 H, VBG HCO3 30.9 H, VBG Total CO2 32.3 H, VBG O2 Saturation 97.9 H, VBG Base Excess 6.8 H, VBG Lactic Acid 2.8 H 12/11/24 17:44 12/11/24 17:44 Orders (Tests/Meds): ED MEDICATIONS Discontinued Medications Generic Name Dose Route Start Last Admin Trade Name Freq PRN Reason Stop Dose Admin Iopamidol 90 ml 12/11/24 19:29 12/11/24 19:30 Iopamidol-370 (76%);100ml Bottle IV 12/11/24 19:30 90 ml ONCE ONE Administration Sodium Chloride 50 ml 12/11/24 19:29 12/11/24 19:29 0.9 % Sodium Chloride 50 Ml Vial IV 12/11/24 19:30 50 ml ONCE ONE Administration Sodium Chloride 10 ml 12/11/24 19:29 12/11/24 19:29 Sodium Chloride 0.9% 10ml Syr (Rad Only) IV 12/11/24 19:30 10 ml ONCE ONE Administration Tetracycl/Hydrocort/Nystatin/Diphen 15 ml 12/11/24 21:00 12/11/24 21:23 Magic Mouthwash 300ml Bottle PO 01/10/25 20:59 15 ml QID LINDSEY Administration ORDERS Category Date Time Status CT angio head Stat Cat Scan 12/11/24 18:[address] angio neck Stat Cat Scan 12/11/24 18:[address] head/brain wo con Stat Cat Scan 12/11/24 18:52 Completed CMP [Comprehensive Metabolic Panel] Stat Lab 12/11/24 17:44 Completed Complete Blood Count Auto Diff Stat Lab 12/11/24 17:44 Completed VBG [Venous Blood Gas] Stat RT 12/11/24 17:54 Completed Medical Decision Narrative: In summary patient is a 54-year-old female who presents to the emergency department for evaluation of slurred speech and confusion intermittently throughout the day. Patient is initially normotensive at 153/79 but tachycardic at 104 breathing 22 times a minute satting at 98% on 2 L by nasal cannula upon arrival, afebrile at 97.9. Physical exam is remarkable for a well-nourished well-developed morbidly obese, with a BMI of 73.9, 54-year-old female who otherwise is in no acute distress. Olin Coma Score is 15 patient is awake alert and oriented person place and circumstance. She has no focal neurologic deficits moves all 4 extremities on her own and is ambulatory in the ER. I am unable to appreciate any speech defects. She has no ataxia. Breathsounds clinical bilaterally to the bases that adventitious sounds abdomen soft morbid obese but nontender no rebound or guarding or rigidity. Differential diagnosis includes TIA versus stroke versus metabolic encephalopathy versus electrolyte abnormality versus polypharmacy etc. Initial workup will be conducted with hematologic labs CT scan of the head without contrast CTA of the head and neck. Initial interventions were considered however patient is awake and alert with no red flags to suggest systemic symptoms thus deferred for now. Initial workup reviewed by me and her hematologic labs significant for a white count of 9.8 hemoglobin hematocrit of 9.9 and 34.1 respectively with no neutrophilic shift VBG shows a pH of 7.44 pCO2 of 46.2 VBG lactic acid of 2.8, glucose is 280 however anion gap is 9 and the remainder of her hematologic labs are nonactionable. My informed her potation of her CT scan of the head and neck shows no acute occlusion or large vessel stenosis prior to radiology read. Please see final read performed to rotation. Upon repeat evaluation patient remains with a Abril Coma Score 15 with no return of her symptoms. Given this I had a shared decision-making discussion with the patient regarding her BARGER presentation and findings and while there remains diagnostic uncertainty as to the cause of her symptoms thus far we have revealed no serious or life-threatening condition. Patient is comfortable going home with close follow-up as an outpatient with her PCP and strict return precautions. <Brijesh Hollis MD - Last Filed: 12/11/24 23:33> Vital Signs: 12/11/24 17:50 12/11/24 18:02 12/11/24 20:57 Temperature 97.9 F 98.4 F Temperature Source Oral Pulse Rate 88 88 Pulse Rate [Left Radial] 104 H Respiratory Rate 22 18 Blood Pressure 142/72 H 148/88 H Blood Pressure [Right Arm] 153/79 H Blood Pressure Mean [Right Arm] 103 02 Sat by Pulse Oximetry 98 100 Oxygen Delivery Method Nasal Cannula Oxygen Flow Rate (LPM) 2 Lab Data Lab Results 12/11/24 17:44: WBC 9.8, RBC 3.68 L, Hgb 9.9 L, Hct 34.1 L, MCV 92.7, MCH 26.9 L, MCHC 29.0 L, RDW 17.2, Plt Count 238, MPV 10.5 H, Neut % (Auto) 70.5, Lymph % (Auto) 20.8, Poc[place] % (Auto) 5.4, Eos % (Auto) 2.0, Baso % (Auto) 0.6, Neut # (Auto) 6.9, Lymph # (Auto) 2.0, [place]ont[place] # (Auto) 0.5, Eos # (Auto) 0.2, Baso # (Auto) 0.1, Sodium 135 L, Potassium 5.0, Chloride 96 L, Carbon Dioxide 35 H, Anion Gap 9.0, BUN 13, Creatinine 0.80, Estimated Creat Clear 65, Estimated GFR 74, Est GFR ( Amer) 90, Glucose 280 H, Calcium 8.7, Total Bilirubin 0.3, AST 30, ALT 17, Alkaline Phosphatase 79, Total Protein 6.6, Albumin 3.5, Globulin 3.1, Albumin/Globulin Ratio 1.1 12/11/24 17:54: VBG pH 7.44 H, VBG pCO2 46.2, VBG pO2 101.5 H, VBG HCO3 30.9 H, VBG Total CO2 32.3 H, VBG O2 Saturation 97.9 H, VBG Base Excess 6.8 H, VBG Lactic Acid 2.8 H Orders (Tests/Meds): ED MEDICATIONS Discontinued Medications Generic Name Dose Route Start Last Admin Trade Name Freq PRN Reason Stop Dose Admin Iopamidol 90 ml 12/11/24 19:29 12/11/24 19:30 Iopamidol-370 (76%);100ml Bottle IV 12/11/24 19:30 90 ml ONCE ONE Administration Sodium Chloride 50 ml 12/11/24 19:29 12/11/24 19:29 0.9 % Sodium Chloride 50 Ml Vial IV 12/11/24 19:30 50 ml ONCE ONE Administration Sodium Chloride 10 ml 12/11/24 19:29 12/11/24 19:29 Sodium Chloride 0.9% 10ml Syr (Rad Only) IV 12/11/24 19:30 10 ml ONCE ONE Administration Tetracycl/Hydrocort/Nystatin/Diphen 15 ml 12/11/24 21:00 12/11/24 21:23 Magic Mouthwash 300ml Bottle PO 01/10/25 20:59 15 ml QID LINDSEY Administration ORDERS Category Date Time Status CT angio head Stat Cat Scan 12/11/24 18:[address] angio neck Stat Cat Scan 12/11/24 18:[address] head/brain wo con Stat Cat Scan 12/11/24 18:52 Completed CMP [Comprehensive Metabolic Panel] Stat Lab 12/11/24 17:44 Completed Complete Blood Count Auto Diff Stat Lab 12/11/24 17:44 Completed VBG [Venous Blood Gas] Stat RT 12/11/24 17:54 Completed Medical Decision Narrative: In summary patient is a 54-year-old female who presents to the emergency department for evaluation of slurred speech and confusion intermittently throughout the day. Patient is initially normotensive at 153/79 but tachycardic at 104 breathing 22 times a minute satting at 98% on 2 L by nasal cannula upon arrival, afebrile at 97.9. Physical exam is remarkable for a well-nourished well-developed morbidly obese, with a BMI of 73.9, 54-year-old female who otherwise is in no acute distress. Olin Coma Score is 15 patient is awake alert and oriented person place and circumstance. She has no focal neurologic deficits moves all 4 extremities on her own and is ambulatory in the ER. I am unable to appreciate any speech defects. She has no ataxia. Breathsounds clinical bilaterally to the bases that adventitious sounds abdomen soft morbid obese but nontender no rebound or guarding or rigidity. Differential diagnosis includes TIA versus stroke versus metabolic encephalopathy versus electrolyte abnormality versus polypharmacy etc. Initial workup will be conducted with hematologic labs CT scan of the head without contrast CTA of the head and neck. Initial interventions were considered however patient is awake and alert with no red flags to suggest systemic symptoms thus deferred for now. Initial workup reviewed by me and her hematologic labs significant for a white count of 9.8 hemoglobin hematocrit of 9.9 and 34.1 respectively with no neutrophilic shift VBG shows a pH of 7.44 pCO2 of 46.2 VBG lactic acid of 2.8, glucose is 280 however anion gap is 9 and the remainder of her hematologic labs are nonactionable. My informed her potation of her CT scan of the head and neck shows no acute occlusion or large vessel stenosis prior to radiology read. Please see final read performed to rotation. Upon repeat evaluation patient remains with a Olin Coma Score 15 with no return of her symptoms. Given this I had a shared decision-making discussion with the patient regarding her BARGER presentation and findings and while there remains diagnostic uncertainty as to the cause of her symptoms thus far we have revealed no serious or life-threatening condition. Patient is comfortable going home with close follow-up as an outpatient with her PCP and strict return precautions. I was consulted by the DYLON, and we discussed the complexity of the problems being addressed.I approved the treatment and management plan for this patient?s care in the Emergency Department, thus performing a substantive portion of the medical decision making.Signed, Brijesh Hollis MD [facility] <KEVON Gold - Last Filed: 12/11/24 21:13> Critical Care Time Critical Care Time: Yes Attestation: On 12/11/24, the high probability of a clinically significant, sudden or life threatening deterioration of the following system(s) required my full and direct attention, intervention and personal management. The time I documented below is in addition to time spent performing reported procedures but includes the following listed in this critical care notation. Total Time Total Critical Care Time: 30
--- NOTE | 2024-12-11 18:52 | CT_ITS ---
PROCEDURE INFORMATION: Exam: CTA Head With Contrast, Arteriography Exam date and time: 12/11/2024 7:21 PM Age: 54 years old Clinical indication: Speech disturbance; Additional info: Slurred speech TECHNIQUE: Imaging protocol: Computed tomographic angiography of the head with contrast. Exam focused on the arteries. 3D rendering (Not supervised by radiologist): MIP and/or 3D reconstructed images were created by the technologist. Radiation optimization: All CT scans at this facility use at least one of these dose optimization techniques: automated exposure control; mA and/or kV adjustment per patient size (includes targeted exams where dose is matched to clinical indication); or iterative reconstruction. Contrast material: ISO 370; Contrast volume: 90 ml; Contrast route: INTRAVENOUS (IV); COMPARISON: CT HEAD/BRAIN WO CON 12/11/2024 7:19 PM FINDINGS: ANTERIOR CIRCULATION: Right internal carotid artery: Mild atherosclerotic narrowing of the carotid bulb without flow-limiting stenosis. No aneurysm. Right middle cerebral artery: No occlusion or significant stenosis. No aneurysm. Right anterior cerebral artery: No occlusion or significant stenosis. No aneurysm. Left internal carotid artery: Mild atherosclerotic narrowing of the intracranial segment without flow-limiting stenosis. No aneurysm. Left middle cerebral artery: No occlusion or significant stenosis. No aneurysm. Left anterior cerebral artery: No occlusion or significant stenosis. No aneurysm. POSTERIOR CIRCULATION: Right vertebral artery: No occlusion or significant stenosis. No aneurysm. Left vertebral artery: No occlusion or significant stenosis. No aneurysm. Basilar artery: No occlusion or significant stenosis. No aneurysm. Right posterior cerebral artery: No occlusion or significant stenosis. No aneurysm. Left posterior cerebral artery: No occlusion or significant stenosis. No aneurysm. Brain: No definite mass, mass effect, or midline shift. Cerebral ventricles: No ventriculomegaly. Bones/joints: Unremarkable. No acute fracture. Soft tissues: Unremarkable. IMPRESSION: No large vessel stenosis or occlusion. PROCEDURE INFORMATION: Exam: CTA Neck With Contrast Exam date and time: 12/11/2024 7:21 PM Age: 54 years old Clinical indication: Speech disturbance; Additional info: Slurred speech TECHNIQUE: Imaging protocol: Computed tomographic angiography of the neck with contrast. Exam focused on the cervical segments of the vasculature. 3D rendering (Not supervised by radiologist): MIP and/or 3D reconstructed images were created by the technologist. Radiation optimization: All CT scans at this facility use at least one of these dose optimization techniques: automated exposure control; mA and/or kV adjustment per patient size (includes targeted exams where dose is matched to clinical indication); or iterative reconstruction. Contrast material: ISO 370; Contrast volume: 90 ml; Contrast route: INTRAVENOUS (IV); COMPARISON: CT ANGIO CHEST PE PROTOCOL 08/23/2024 4:06 PM FINDINGS: Right common carotid artery: Mild atherosclerotic narrowing of the carotid bulb without flow-limiting stenosis. No dissection or occlusion. Right internal carotid artery: Mild stenosis of the proximal cervical segment. No dissection or occlusion. Right external carotid artery: No occlusion or stenosis of the origin. Left common carotid artery: No stenosis. No dissection or occlusion. Left internal carotid artery: No stenosis of the extracranial segment. No dissection or occlusion. Left external carotid artery: No occlusion or stenosis of the origin. Right vertebral artery: No stenosis. No dissection or occlusion. Left vertebral artery: No stenosis. No dissection or occlusion. Soft tissues: Left chest wall cardiac pacing device with adjacent subcutaneous emphysema likely related to recent placement. Bones/joints: No acute fracture. Degenerative changes. Other findings: Somewhat limited evaluation of the proximal internal carotid and vertebral artery secondary to artifact. IMPRESSION: Somewhat limited evaluation of the proximal internal carotid and vertebral artery secondary to artifact. Mild right internal carotid artery proximal cervical segment stenosis. REFERENCES: NASCET CRITERIA. The degree of stenosis in the cervical segment of the internal carotid artery is based on NASCET criteria. Normal is no stenosis. Mild is less than 50% stenosis. Moderate is 50-69% stenosis. Severe is 70% to 99% stenosis. Total occlusion is no detectable patent lumen.
--- NOTE | 2024-12-11 18:52 | CT_ITS ---
PROCEDURE INFORMATION: Exam: CT Head Without Contrast Exam date and time: 12/11/2024 7:19 PM Age: 54 years old Clinical indication: Other: Slurred speech TECHNIQUE: Imaging protocol: Computed tomography of the head without contrast. Radiation optimization: All CT scans at this facility use at least one of these dose optimization techniques: automated exposure control; mA and/or kV adjustment per patient size (includes targeted exams where dose is matched to clinical indication); or iterative reconstruction. COMPARISON: CT HEAD/BRAIN WO CON 08/23/2022 7:00 PM FINDINGS: Brain: Artifact limiting evaluation of the posterior cranial fossa. No identifiable acute intracranial hemorrhage, midline shift, or mass effect. Cerebral ventricles: No ventriculomegaly. Paranasal sinuses: Visualized sinuses are unremarkable. No fluid levels. Mastoid air cells: Visualized mastoid air cells are well aerated. Bones: Unremarkable. No acute fracture. Soft tissues: Unremarkable. IMPRESSION: Artifact limiting evaluation of the posterior cranial fossa. Within the limits of the exam, no identifiable acute intracranial findings.
[2024-12-11] MEDS: 0.9 % SODIUM CHLORIDE 50 ML VIAL IV (19:29)
[2024-12-11] MEDS: SODIUM CHLORIDE 0.9% 10ML SYR (RAD ONLY) 10 ML IV (19:29)
[2024-12-11] MEDS: IOPAMIDOL-370 (76%);100ML BOTTLE 90 ML IV (19:30)
[2024-12-11 20:57] VITALS: BP 148/88; PULSE 88; RESP 18; TEMP 36.9; O2SAT 99
[2024-12-11] MEDS: MAGIC MOUTHWASH 300ML BOTTLE 15 ML PO (21:23)
[2024-12-11 22:02] LABS: Reflex Lactic Add Lactic Reflex
== END 2024-12-11 21:24 | disposition home or self-care (01) ==
PROVIDERS: Emergency Provider Emergency Medicine; PCP Internal Medicine
DX: R47.81 Slurred speech (principal); K12.0 Recurrent oral aphthae; R41.0 Disorientation, unspecified; R00.0 Tachycardia, unspecified; E66.01 Morbid (severe) obesity due to excess calories; Z68.45 Body mass index [BMI] 70 or greater, adult; Z87.891 Personal history of nicotine dependence
CPT/HCPCS: 70450; 70496; 70498; 80053; 82803; 85025; 93005; 99285; Q9967

== ENCOUNTER 2024-12-13 17:04 | Emergency (ER) | payer MEDICARE, OTHER, SELFPAY ==
--- NOTE | 2024-12-13 17:06 | XR_ITS ---
PROCEDURE INFORMATION: Exam: XR Chest Exam date and time: 12/13/2024 5:16 PM Age: 54 years old Clinical indication: Other: Weakness; Prior surgery; Surgery date: Post-operative (0-2 days); Surgery type: Pacemaker; Additional info: General weakness, recent pacer placement TECHNIQUE: Imaging protocol: Radiologic exam of the chest. Views: 1 view. COMPARISON: CR XR CHEST PORTABLE 12/07/2024 12:20 AM FINDINGS: Lungs: Hypoinflation. No focal infiltrates. Overall stable examination. Pleural spaces: Unremarkable. No pleural effusion. No pneumothorax. Heart/Mediastinum: Unremarkable. No cardiomegaly. Bones/joints: Unremarkable. IMPRESSION: Hypoinflation. No focal infiltrates. Overall stable examination.
--- NOTE | 2024-12-13 17:08 | ECG_ITS ---
APPROVED REPORT Exam: Resting ECG HR:65 bpm ECG Measurements Heart Rate 65 AXES AR 241 P 82 QRSd 100 QRS 91 QT 377 T -63 QTc 388 Conclusion ELECTRONIC ATRIAL PACEMAKER ELECTRONIC VENTRICULAR PACEMAKER -- CONTOUR ANALYSIS BASED ON INTRINSIC RHYTHM BORDERLINE RIGHT AXIS DEVIATION [QRS AXIS > 90] LOW QRS VOLTAGE IN PRECORDIAL LEADS [QRS DEFLECTION < 1.0 mV IN CHEST LEADS] NONSPECIFIC ST & T-WAVE ABNORMALITY No STEMI Electronically signed by : ROSCOE GONZALEZ, 12/13/2024 20:03:55
--- NOTE | 2024-12-13 17:11 | ED_ITS ---
Discharge Plan Disposition Patient Disposition: Home, Self-Care Condition: Good Prescriptions Prescriptions: No Action levothyroxine 150 mcg tablet 300 mcg PO DAILYDM Patient Comments: TAKE TWO TABLETS BY MOUTH EVERY DAY IN THE MORNING cholecalciferol (vitamin D3) 1,250 mcg (50,000 unit) capsule 1,250 mcg PO WEEKLY Qty: 12 3RF spironolactone 25 mg tablet 25 mg PO DAILY Qty: 90 3RF atorvastatin 40 mg tablet 40 mg PO HS Qty: 90 1RF semaglutide 0.25 mg or 0.5 mg(2 mg/1.5 mL) pen injector 0.5 mg SQ WEEKLY Qty: 1.5 0RF Repatha SureClick 140 mg/mL pen injector 140 mg SQ Q2W Qty: 2 5RF calcium carbonate [Calcium 600] 600 mg calcium (1,500 mg) Tablet 600 mg PO DAILY oxybutynin chloride 5 mg tablet 5 mg PO BID ropinirole 4 mg tablet 4 mg PO DAILY metformin 500 mg tablet 500 mg PO BIDWMEAL aspirin 81 mg tablet,delayed release (DR/EC) 81 mg PO DAILY ondansetron 4 mg tablet,disintegrating 4 mg PO Q4HP PRN (Reason: nausea, vomiting) bupropion HCl 200 mg tablet sustained-release 12 hr 400 mg PO DAILY torsemide 20 mg tablet 60 mg PO BIDL meloxicam 15 mg tablet 15 mg PO DAILYP PRN (Reason: Moderate Pain (Scale Score 5-6)) cyanocobalamin (vitamin B-12) 1,000 mcg tablet 1,000 mcg PO DAILY Trelegy Ellipta 100-62.5-25 mcg blister with device 1 inh INHALATION DAILY Patient Comments: INHALE 1 PUFF BY MOUTH EVERY DAY --RINSE MOUTH AFTER USE-- ipratropium-albuterol 0.5 mg-3 mg(2.5 mg base)/3 mL solution for nebulization 3 ml inhalation QIDP PRN (Reason: shortness of breath or wheezing) trazodone 150 mg tablet 300 mg PO HS lisinopril 40 mg Tablet 40 mg PO DAILY albuterol sulfate 90 mcg/actuation HFA aerosol inhaler 2 puff inhalation Q4HP PRN (Reason: Shortness Of Breath) cephalexin 500 mg Capsule 500 mg PO TID 4 Days Qty: 12 0RF metoprolol succinate 25 mg Tablet Extended Release 24 Hr 25 mg PO DAILY 30 Days Qty: 30 0RF Referrals Follow up/Referrals: Vahid Garcia DO [Primary Care Provider] - See instructions Activity Restrictions/Add. Instructions Additional Instructions/Restrictions: You were evaluated in the emergency department today. Your pacemaker appears to be functioning properly. Workup is reassuring and is overall stable/improved. Please follow-up closely outpatient with cardiology. Call them and let them know that you were seen here today. Follow-up closely with your primary care provider as well. Return to the emergency department for new or worsening symptoms. Clinical Impressions Clinical Impression: General weakness, Obesity hypoventilation syndrome Instructions Patient Instructions: DI for Obesity -- Adult, DI for Muscle Weakness Print Language Print Language: Azeri Discharge ED Provider: Slime Arguelles General Adult HPI General Chief complaint: Weakness Stated complaint: weakness, pacemaker malfunction Time Seen by Provider: 12/13/24 17:06 History of Present Illness HPI narrative: This patient is a 54-year-old female with a history of morbid obesity, type 2 diabetes, CHF, HONEY, hypertension, hyperlipidemia, hypothyroidism, recent admission for symptomatic bradycardia in the setting of second-degree type II AV block with transfer to [facility] for pacemaker placement (Guzman device placed). She states that she is felt generally weak since this morning, and her home health nurse checked her heart rate and thought that it was in the 50s. She notes is not supposed to go below [address] her pac[address] in place, so they became concerned that the pacemaker could be malfunctioning. They called [facility] who advised that she should be seen in the ED. Aside from having general weakness, she denies any other concerns or complaints. She notes that she has not eaten or drink very much today. No pain, nausea, vomiting, changes in bowel movements, or other concerns Related Data Home Medications ?Medication ?Instructions ?Recorded ?Confirmed calcium carbonate (Calcium 600) 600 mg PO DAILY 10/03/23 12/07/24 levothyroxine 150 mcg tablet 300 mcg PO DAILYDM 08/16/24 12/07/24 cyanocobalamin (vitamin B-12) 1,000 mcg PO DAILY 09/24/24 12/07/24 1,000 mcg tablet fluticasone fur. 100 mcg-umeclid 1 inh inhalation DAILY 09/24/24 12/07/24 62.5 mcg-vilant 25 mcg inhalat.powder (Trelegy Ellipta) ipratropium 0.5 mg-albuterol 3 mg 3 ml inhalation QIDP PRN shortness 09/24/24 12/07/24 (2.5 mg base)/3 mL nebulization of breath or wheezing soln lisinopril 40 mg tablet 40 mg PO DAILY 09/24/24 12/07/24 trazodone 150 mg tablet 300 mg PO HS 09/24/24 12/07/24 aspirin 81 mg tablet,delayed 81 mg PO DAILY 12/02/24 12/07/24 release bupropion HCl 200 mg tablet,12 hr 400 mg PO DAILY 12/02/24 12/07/24 sustained-release metformin 500 mg tablet 500 mg PO BIDWMEAL 12/02/24 12/07/24 ondansetron 4 mg disintegrating 4 mg PO Q4HP PRN nausea, vomiting 12/02/24 12/07/24 tablet oxybutynin chloride 5 mg tablet 5 mg PO BID 12/02/24 12/07/24 ropinirole 4 mg tablet 4 mg PO DAILY 12/02/24 12/07/24 meloxicam 15 mg tablet 15 mg PO DAILYP PRN Moderate Pain 12/03/24 12/07/24 (Scale Score 5-6) torsemide 20 mg tablet 60 mg PO BIDL 12/03/24 12/07/24 albuterol sulfate 90 mcg/actuation 2 puff inhalation Q4HP PRN 12/07/24 12/07/24 aerosol inhaler Shortness Of Breath Previous Rx's ?Medication ?Instructions ?Recorded cholecalciferol (vitamin D3) 1,250 1,250 mcg PO WEEKLY #12 caps 05/26/24 mcg (50,000 unit) capsule spironolactone 25 mg tablet 25 mg PO DAILY #90 tabs 07/06/24 atorvastatin 40 mg tablet 40 mg PO HS #90 tabs 11/01/24 semaglutide 0.25 mg or 0.5 mg (2 0.5 mg (0.374 mL) SQ WEEKLY #1.5 mL 11/01/24 mg/1.5 mL) subcutaneous pen injector evolocumab 140 mg/mL subcutaneous 140 mg SQ Q2W #2 mL 11/24/24 pen injector (Meli Dowling) cephalexin 500 mg capsule 500 mg PO TID 4 days #12 caps 12/07/24 metoprolol succinate 25 mg 25 mg PO DAILY 30 days #30 tabs 12/07/24 tablet,extended release 24 hr Allergies Allergy/AdvReac Type Severity Reaction Status Date / Time adhesive tape (ADHESIVE TAPE) Allergy Unknown Blister Verified 11/22/24 14:36 hydromorphone (From DILAUDID) Allergy Unknown Hypotension Verified 11/22/24 14:36 nickel (NICKEL) Allergy Unknown Blister Verified 11/22/24 14:36 PFSH [facility] Disclaimer: The information contained in this section may have been updated after the patient was seen, as this information can be updated by other users. Medical History Obesity Abdominal pain UTI (urinary tract infection) Hospital discharge follow-up Establishing care with new doctor, encounter for Restless leg Glaucoma Arthritis of both knees Urinary incontinence Unspecified asthma, uncomplicated Tear of meniscus of knee Pre-diabetes Diastolic CHF, acute on chronic Pulmonary hypertension Elevated left ventricular end-diastolic pressure (LVEDP) Asthma exacerbation Sleep apnea History of COVID-19 COPD (chronic obstructive pulmonary disease) Asthma Abscess of groin, right Acute exacerbation of chronic obstructive airways disease Left against medical advice Dependent on wheelchair Assistance needed for continence Incisional hernia Lower leg pain Knee pain Vaginal bleeding Perimenopausal Cellulitis Hypothyroidism Dizziness Chest pain Sinusitis Tobacco abuse counseling Tobacco abuse HONEY (obstructive sleep apnea) Ventral hernia Dyspnea Depression Pharyngitis due to Streptococcus species Epigastric pain Gastritis Strep throat HTN (hypertension) Hypothyroidism (acquired) TIA (transient ischemic attack) COPD exacerbation Paresthesias Shortness of breath Acute bronchitis Tobacco abuse COPD (chronic obstructive pulmonary disease) Infiltrate of lung present on chest x-ray Atelectasis of right lung Cough Upper respiratory infection Surgical History History of lateral meniscus repair of right knee H/O tubal ligation Hx of cholecystectomy H/O hernia repair History of colon resection Family History Mother Hypertension Diabetes Father Cancer Social History Smoking Status: Never smoker years smoked: 38 smoking status stop date: 3 months ago quit status: has quit before second hand exposure: Yes alcohol intake: never substance use type: denies use current occupational status: unemployed Travel in the last 8 weeks?: None household members: family and children housing: other lives independently: No marital status: legally number of children: 4 education level: other caffeine: Yes do you feel safe at home: Yes victim of physical abuse: No victim of emotional abuse: No victim of sexual abuse: No Other Medical History Have you received the Flu Vaccine for this season: No Have you received the Pneumonia Vaccine: No ROS Obtained: Yes All systems reviewed & no additional complaints except as documented Physical Exam General General appearance: alert, in no apparent distress and obese Head Head exam: atraumatic and normocephalic Eye Eye exam: Present normal appearance, PERRL and EOMI ENT ENT exam: Present normal exam, normal oropharynx, mucous membranes moist and normal external ear exam Neck Neck exam: Present normal inspection, full ROM and trachea midline; Absent tenderness Chest Chest inspection: Present normal inspection and symmetric chest wall rise; Absent tenderness Respiratory Respiratory exam: Present normal lung sounds bilaterally; Absent respiratory distress, wheezes, stridor or accessory muscle use Cardiovascular Cardiovascular exam: Present regular rate, normal rhythm and Pacemaker w/paced rhythm Abdominal Exam Abdominal exam: Present soft; Absent distention, tenderness or guarding Extremities Exam Extremities exam: Present normal inspection, full ROM and normal capillary refill; Absent tenderness or edema Back Exam Back exam: Present normal inspection and full ROM; Absent tenderness Neurological Exam Neurological exam: Present alert, oriented X3 and CN II-XII intact; Absent motor sensory deficit Psychiatric Psychiatric exam: Present normal affect and normal mood Skin Skin exam: Present warm and dry Medical Decision Making Medical Records Medical records reviewed: Yes I reviewed the patient's medical records. Screening: Per USPSTF and CDC recommendations, given the prevalence of disease in our region, it is our hospital?s policy to screen for HIV and viral Hepatitis for all patients aged 18 and over and those with ongoing risk factors. [place] Inquiry Pt receiving controlled substance: No Vital Signs: 12/13/24 17:16 12/13/24 17:31 12/13/24 18:01 Temperature 98.2 F Temperature Source Oral Pulse Rate 75 61 Pulse Rate [Left Radial] 79 Respiratory Rate 16 22 23 Blood Pressure 132/61 124/57 L Blood Pressure [Right Arm] 122/63 Blood Pressure Mean [Right Arm] 82 Blood Pressure Source Blood Pressure Position 02 Sat by Pulse Oximetry 98 99 100 Oxygen Delivery Method Room Air Nasal Cannula Nasal Cannula Oxygen Flow Rate (LPM) 2 2 12/13/24 18:30 12/13/24 20:47 12/13/24 20:57 Temperature 98.4 F 97.8 F Temperature Source Oral Oral Pulse Rate 83 75 83 Pulse Rate [Left Radial] Respiratory Rate 22 18 16 Blood Pressure 126/76 145/83 H 165/87 H Blood Pressure [Right Arm] Blood Pressure Mean [Right Arm] Blood Pressure Source Automatic Cuff Automatic Cuff Blood Pressure Position Sitting 02 Sat by Pulse Oximetry 96 97 Oxygen Delivery Method Nasal Cannula Room Air Oxygen Flow Rate (LPM) 2 Lab Data Lab results reviewed: Yes I reviewed the patient's lab results. Lab Results 12/13/24 17:10: WBC 8.9, RBC 3.47 L, Hgb 9.7 L, Hct 32.0 L, MCV 92.2, MCH 28.0, MCHC 30.3 L, RDW 16.8, Plt Count 224, MPV 10.4, Neut % (Auto) 75.9, Lymph % (Auto) 14.7, [place] % (Auto) 6.5, Eos % (Auto) 1.7, Baso % (Auto) 0.4, Neut # (Auto) 6.8, Lymph # (Auto) 1.3, [place] # (Auto) 0.6, Eos # (Auto) 0.2, Baso # (Auto) 0.0, Sodium 137, Potassium 4.6, Chloride 95 L, Carbon Dioxide 39 H, Anion Gap 7.6, BUN 13, Creatinine 0.70, Estimated Creat Clear 74, Estimated GFR 87, Est GFR ( Amer) 105, Glucose 180 H, Calcium 9.3, Magnesium 1.8, Total Bilirubin 0.2, AST 27, ALT 19, Alkaline Phosphatase 93, Troponin I 0.34 H, N T-Pro-B Natriuret Pep 524 H, Total Protein 6.6, Albumin 3.4 L, Globulin 3.2, Albumin/Globulin Ratio 1.1, TSH 7.37 H, Thyroxine (T4) 9.1 12/13/24 17:50: Urine Color Yellow, Urine Appearance Slightly cloudy, Urine pH 6.0, Ur Specific [place] 1.020, Urine Protein Negative, Urine Glucose (UA) Negative, Urine Ketones Negative, Urine Blood Negative, Urine Nitrate Negative, Urine Bilirubin Negative, Urine Urobilinogen 0.2, Ur Leukocyte Esterase Negative, Urine RBC 3-5, Urine WBC 10-20, Ur Squamous Epith Cells 20-50, Urine Bacteria 1+, Urine Mucus 1+ 12/13/24 20:02: Troponin I 0.30 H 12/13/24 17:10 12/13/24 17:10 Orders (Tests/Meds): ED MEDICATIONS Discontinued Medications Generic Name Dose Route Start Last Admin Trade Name Karine PRN Reason Stop Dose Admin Acetaminophen 1,000 mg 12/13/24 19:50 12/13/24 20:42 Acetaminophen 500mg Tab PO 12/13/24 19:51 1,000 mg ONCE ONE Administration Morphine Sulfate 4 mg 12/13/24 20:11 12/13/24 20:43 Morphine 4mg/Ml Syringe IV 12/13/24 20:12 4 mg ONCE ONE Administration Ondansetron HCl 4 mg 12/13/24 20:11 12/13/24 20:43 Ondansetron 4mg/2ml Vial IV 12/13/24 20:12 4 mg ONCE ONE Administration ORDERS Category Date Time Status CXR --portable [XR chest portable] Stat Exams 12/13/24 17:06 Completed BNP [NT Pro Brain Natriuretic Pep.] Stat Lab 12/13/24 17:10 Completed CBC w/Auto Diff [Complete Blood Count Auto Diff] Stat Lab 12/13/24 17:10 Completed CMP [Comprehensive Metabolic Panel] Stat Lab 12/13/24 17:10 Completed MAG [Magnesium] Stat Lab 12/13/24 17:10 Completed T4 (Thyroxine) Stat Lab 12/13/24 17:10 Completed TSH [Thyroid Stimulating Hormone] Stat Lab 12/13/24 17:10 Completed Trop I [Troponin I] Stat Lab 12/13/24 17:10 Completed Troponin I Q3H Lab 12/13/24 20:02 Completed UA [Urinalysis and Microscopic] Stat Lab 12/13/24 17:50 Completed Urine Culture Stat Micro 12/13/24 17:50 Received ECG Data Tracing #1: I reviewed this ECG and interpreted as documented below: Appropriately paced at ventricular rate of [address] changes concerning for STEMI. ECG initial impression date: 12/13/24 ECG initial impression time: 17:09 Medical Decision Narrative: In summary, this patient is a 54-year-old female presenting to the Emergency Department for evaluation of general weakness and concern that her heart rate may have been low at home in the setting of recent pacemaker placement. Differential diagnoses considered include but are not limited to pacemaker malfunction, UTI, GWEN, dehydration, electrolyte derangements, CHF. Ruling out the most morbid conditions drove assessment. It should be noted patient's history includes morbid obesity, hypertension, hyperlipidemia, CHF, type 2 diabetes, hypothyroidism which likely are not at goal therapy. This complicates all aspects of care by increasing patient's risk for morbidity. I reviewed patient's past medical records and noted evaluation here in the emergency department 12/02/2024 for symptomatic bradycardia with admission and then subsequent transfer for higher level of care because we did not have a Network Controller table that could hold her weight. She had pacemaker placement there and was subsequently sent back here, at which point she was ultimately discharged home with home health. On exam, the patient is lying in bed in no distress. She is nontoxic-appearing with normal vitals on cardiac telemetry. She is appropriately paced and normotensive. EKG obtained is reassuring as well. Workup included CBC, CMP, TSH, T4, BNP, troponin, magnesium, urinalysis, chest x-ray. I independently interpreted x-ray prior to the radiologist read and noted no acute focal consolidation or pneumothorax, no significant interval change from prior. Please see their read for final interpretation. Labs were obtained that demonstrated reassuring CBC with stable chronic anemia. No significant leukocytosis. Chemistry is not significantly changed from prior. Patient does have elevated troponin at 0.34, however this is significantly decreased from her most recent troponin about 6 days ago which was over 13. BNP is very mildly elevated but she does not look grossly volume overloaded on clinical exam or on imaging. TSH is mildly elevated but improved from prior as well with history of longstanding poor compliance with thyroid medication. Urinalysis is grossly contaminated with squamous cells but does not appear overtly concerning for urinary tract infection. On reassessments, vitals remained stable on cardiac telemetry and pacemaker appears to be appropriately pacing. Heart rate is been in the 60s to 80s throughout ED stay. At 1845, patient was placed in ED observation status pending second troponin and continued monitoring to determine whether or not the patient would be appropriate for discharge versus admission. The patient was provided serial reevaluations and cardiac monitoring while awaiting ultimate disposition. On multiple subsequent reassessments, the patient expresses great discomfort because of being on the uncomfortable stretcher. She also states that she feels like she cannot breathe because we had her lying back too far. Upon sitting up, she does feel a lot better. I suspect that she has severe obesity hypoventilation syndrome related to her size and body habitus. Second troponin obtained demonstrates no significant delta troponin and is downtrending. I discussed the case with the hospitalist who advises that this is likely related to the recent pacemaker placement and is overall down since her most recent admission. Her vitals remained stable on cardiac telemetry with no bradycardia noted. She was hemodynamically stable with normal oxygen saturation the entire time that she has been here in the emergency department. Given reassuring workup and exam, it is felt that the patient is appropriate for discharge at 2100. Total ED observation time was 2 hours 45 minutes. I had a [id number] visit with the patient when providing discharge instructions. The total time involved in discharging this patient was less than 30 minutes. She was given instructions for close follow-up with cardiology as well as primary care provider over the next 48 hours and strict return precautions. Critical Care Critical Care Time Critical Care Time: Yes Attestation: On 12/13/24, the high probability of a clinically significant, sudden or life threatening deterioration of the following system(s) required my full and direct attention, intervention and personal management. The time I documented below is in addition to time spent performing reported procedures but includes the following listed in this critical care notation. Total Time Total Critical Care Time: 35
--- NOTE | 2024-12-13 17:15 | PC.NURSE ---
Blood drawn from IV done by ems, sent to lab.
[2024-12-13 17:16] VITALS: BP 122/63; PULSE 79; RESP 16; TEMP 36.8; O2SAT 98; BMI 79.6
[2024-12-13 17:31] VITALS: BP 132/61; PULSE 75; RESP 22; O2SAT 99
[2024-12-13 17:31] LABS: Albumin Level 3.4 g/dl (3.5-5.0); Chloride 95 mmol/L (98-107); Sodium 137 mmol/L (136-145)
[2024-12-13 17:32] LABS: Potassium 4.6 mmoL/L (3.5-5.1)
[2024-12-13 17:34] LABS: Alanine Aminotransferase 19 U/L (12-78); Albumin/Globulin Ratio 1.1 (1.1-1.8); Alkaline Phosphatase 93 U/L (38-126); Anion Gap 7.6 mEq/L (5-15); Aspartate Amino Transferase 27 U/L (14-36); Bilirubin,Total 0.2 mg/dl (0.2-1.3); Blood Urea Nitrogen 13 mg/dl (7-17); Carbon Dioxide 39 mmol/L (22.0-30.0); Creatinine Clearance Estimated 74 mL/min (50-200); Estimated Glomerular Filt Rate 87 ml/min (>60); GFR (African American) 105 ML/MIN (>60); Globulin 3.2 g/dL (1.3-3.2); Magnesium 1.8 mg/dl (1.6-2.3); Total Protein,Serum 6.6 g/dl (6.3-8.2)
[2024-12-13 17:35] LABS: Calcium 9.3 mg/dl (8.4-10.2); Glucose 180 mg/dl (74-100)
[2024-12-13 17:36] LABS: Basophils % 0.4 % (0.1-2.0); Eosinophils # 0.2 Kmm3 (0.0-0.4); Eosinophils % 1.7 % (0.1-12.0); Hemoglobin 9.7 g/dL (12.2-16.2); Immature Granulocytes # 0.07 10^3uL; Immature Granulocytes % 0.8 %; Lymphocytes # 1.3 K/mm3 (0.7-4.5); Lymphocytes % 14.7 % (10-50); Mean Corpuscular HGB Conc 30.3 g/dL (31.8-35.4); Mean Corpuscular Volume 92.2 fl (81-99); Mean Platelet Volume 10.4 fl (7.4-10.4); Monocytes # 0.6 K/mm3 (0.1-1.0); Monocytes % 6.5 % (1.7-9.3); Neutrophils # 6.8 K/mm3 (1.8-7.8); Neutrophils % 75.9 % (37.0-80.0); Nucleated Red Blood Cells # 0 10^3/uL; Nucleated Red Blood Cells % 0 %; Platelet Count 224 K/mm3 (142-424); Red Blood Count 3.47 M/mm3 (4.20-5.40); Red Cell Distribution Width 16.8 % (11.5-17.5); Red Cell Distribution Width-SD 56.3 fL; White Blood Count 8.9 K/mm3 (4.8-10.8)
[2024-12-13 17:45] LABS: NT Pro Brain Natriuretic Pep. 524 pg/mL (0-125)
[2024-12-13 17:52] LABS: T4 (Thyroxine) 9.1 ug/dl (5.53-11.0)
[2024-12-13 17:56] LABS: Microscopic, Urine URINE MICROSCOPIC (MICROSCOPIC)
[2024-12-13 17:58] LABS: Bilirubin,Urine Negative (Negative); Blood, Urine Negative (Negative); Color,Urine YELLOW (Yellow); Glucose,Urine (UA) Negative (Negative); Ketones,Urine Negative (Negative); Leukocyte Esterase,Urine Negative (Negative); Nitrate,Urine Negative (Negative); Protein,Urine Negative (Negative); Urobilinogen,Urine 0.2 EU/dl (0.2)
[2024-12-13 18:01] VITALS: BP 124/57; PULSE 61; RESP 23; O2SAT 100
[2024-12-13 18:01] LABS: Appearance,Urine Slightly Cloudy (Clear)
[2024-12-13 18:06] LABS: Thyroid Stimulating Hormone 7.37 uIU/mL (0.465-4.68)
[2024-12-13 18:12] LABS: Troponin I 0.34 ng/ml (0.00-0.034)
[2024-12-13 18:30] VITALS: BP 126/76; PULSE 83; RESP 22; O2SAT 96
[2024-12-13 18:32] LABS: Bacteria,Urine 1+ /lpf; Mucus,Urine 1+ /lpf; Squamous Epithelial Cell,Urine 20-50 #/hpf (0-5)
[2024-12-13] MEDS: ACETAMINOPHEN 500MG TAB 1000 MG PO (20:42)
[2024-12-13] MEDS: MORPHINE 4MG/ML SYRINGE 4 MG IV (20:43)
[2024-12-13] MEDS: ONDANSETRON 4MG/2ML VIAL 4 MG IV (20:43)
[2024-12-13 20:47] VITALS: BP 145/83; PULSE 75; RESP 18; TEMP 36.9; O2SAT 97
[2024-12-13 20:57] VITALS: BP 165/87; PULSE 83; RESP 16; TEMP 36.6
== END 2024-12-13 20:57 | disposition home or self-care (01) ==
PROVIDERS: Emergency Provider Emergency Medicine; PCP Internal Medicine
DX: R53.1 Weakness (principal); E66.2 Morbid (severe) obesity with alveolar hypoventilation; I50.32 Chronic diastolic (congestive) heart failure; I11.0 Hypertensive heart disease with heart failure; E78.5 Hyperlipidemia, unspecified; E11.9 Type 2 diabetes mellitus without complications; Z87.891 Personal history of nicotine dependence; Z95.0 Presence of cardiac pacemaker
CPT/HCPCS: 71045; 80053; 81001; 83735; 83880; 84436; 84443; 84484; 85025; 87086; 87088; 87186; 93005; 96374; 96375; 99285; J2270; J2405

== ENCOUNTER 2024-12-23 11:07 | Emergency (ER) | payer MEDICARE, OTHER, SELFPAY ==
[2024-12-23] VITALS (10 sets, daily range): BP systolic 111–129; BP diastolic 47–61; PULSE 58–82; RESP 18–28; TEMP 36.7–36.9; O2SAT 93–99; BMI 79.6
--- NOTE | 2024-12-23 10:54 | XR_ITS ---
FINAL REPORT CLINICAL HISTORY: Shortness of breath COMPARISON: 12/13/2024 and 12/07/2024 FINDINGS: A portable view of the chest was obtained. Compared to both, generator component of the pacemaker appears to have changed position. It is no longer seen as flat along the chest wall. This could be due to movement of soft tissues in the chest wall. However, generator complication is not excluded. The heart and mediastinum are within normal limits. The lungs are clear. There is no pleural effusion or pneumothorax. IMPRESSION: Possible abnormal positioning of pacemaker generator over time since 12/07/2024. Recommend cardiac evaluation to ensure proper function and position. Reviewed, Interpreted and Dictated by Sushma Peterson MD Transcribed by Ivis Matthew Authenticated and [facility]
--- NOTE | 2024-12-23 10:58 | HMH.EDGENADL ---
Discharge Plan Disposition Patient Disposition: Home, Self-Care Condition: Good Prescriptions Prescriptions: New spironolactone 100 mg tablet 100 mg PO DAILY Qty: 90 1RF metolazone 5 mg tablet 5 mg PO Q12H Qty: 180 1RF No Action levothyroxine 150 mcg tablet 300 mcg PO DAILYDM Patient Comments: TAKE TWO TABLETS BY MOUTH EVERY DAY IN THE MORNING cholecalciferol (vitamin D3) 1,250 mcg (50,000 unit) capsule 1,250 mcg PO WEEKLY Qty: 12 3RF spironolactone 25 mg tablet 25 mg PO DAILY Qty: 90 3RF atorvastatin 40 mg tablet 40 mg PO HS Qty: 90 1RF Repatha SureClick 140 mg/mL pen injector 140 mg SQ Q2W Qty: 2 5RF ropinirole 4 mg tablet See Rx Instructions .ROUTE .COMPLEX Qty: 90 0RF Dose Instruction: TAKE ONE TABLET BY MOUTH EVERY DAY Rx Instructions: TAKE ONE TABLET BY MOUTH EVERY DAY aspirin 81 mg tablet,delayed release (DR/EC) See Rx Instructions .ROUTE .COMPLEX Qty: 30 0RF Dose Instruction: TAKE ONE TABLET BY MOUTH EVERY DAY Rx Instructions: TAKE ONE TABLET BY MOUTH EVERY DAY oxybutynin chloride 5 mg tablet See Rx Instructions .ROUTE .COMPLEX Qty: 60 0RF Dose Instruction: TAKE ONE TABLET BY MOUTH TWICE DAILY Rx Instructions: TAKE ONE TABLET BY MOUTH TWICE DAILY Ozempic 0.25 mg or 0.5 mg (2 mg/3 mL) pen injector See Rx Instructions .ROUTE .COMPLEX Qty: 3 0RF Dose Instruction: INJECT 0.5 MG SUBCUTANEOUSLY ONCE A WEEK Rx Instructions: INJECT 0.5 MG SUBCUTANEOUSLY ONCE A WEEK calcium carbonate [Calcium 600] 600 mg calcium (1,500 mg) Tablet 600 mg PO DAILY metformin 500 mg tablet 500 mg PO BIDWMEAL ondansetron 4 mg tablet,disintegrating 4 mg PO Q4HP PRN (Reason: nausea, vomiting) bupropion HCl 200 mg tablet sustained-release 12 hr 400 mg PO DAILY torsemide 20 mg tablet 60 mg PO BIDL meloxicam 15 mg tablet 15 mg PO DAILYP PRN (Reason: Moderate Pain (Scale Score 5-6)) cyanocobalamin (vitamin B-12) 1,000 mcg tablet 1,000 mcg PO DAILY Trelegy Ellipta 100-62.5-25 mcg blister with device 1 inh INHALATION DAILY Patient Comments: INHALE 1 PUFF BY MOUTH EVERY DAY --RINSE MOUTH AFTER USE-- ipratropium-albuterol 0.5 mg-3 mg(2.5 mg base)/3 mL solution for nebulization 3 ml inhalation QIDP PRN (Reason: shortness of breath or wheezing) trazodone 150 mg tablet 300 mg PO HS lisinopril 40 mg Tablet 40 mg PO DAILY albuterol sulfate 90 mcg/actuation HFA aerosol inhaler 2 puff inhalation Q4HP PRN (Reason: Shortness Of Breath) cephalexin 500 mg Capsule 500 mg PO TID 4 Days Qty: 12 0RF metoprolol succinate 25 mg Tablet Extended Release 24 Hr 25 mg PO DAILY 30 Days Qty: 30 0RF Referrals Follow up/Referrals: Vahid Garcia DO [Primary Care Provider, Family Practice] - See instructions Thierry Mann MD [Staff Physician, Cardiology] - See instructions Activity Restrictions/Add. Instructions Additional Instructions/Restrictions: You were evaluated in the emergency department today. We feel this is a flareup of heart failure, as you have fluid buildup on your lungs. We are changing your dose of spironolactone per Dr. David. You will now take 100 mg daily instead of 25 mg daily. We are also prescribing you metolazone to take twice daily. Please also continue taking your torsemide 60 mg twice daily. Please follow-up in cardiology clinic on Thursday at 9 AM. Return to the emergency department for new or worsening symptoms. Clinical Impressions Clinical Impression: Diastolic CHF, acute on chronic, Morbid obesity with BMI of 70 and over, adult, Pleural effusion Stand Alone Forms Stand Alone Forms: Work/School Release Instructions Patient Instructions: DI for Heart Failure, DI for Shortness of Breath Print Language Print Language: Slovak Discharge ED Provider: Slime Arguelles General Adult HPI General Chief complaint: Shortness of Breath/Dyspnea Stated complaint: shortness of breath Time Seen by Provider: 12/23/24 11:09 History of Present Illness HPI narrative: This patient is a 54-year-old female with a history of severe obesity, chronic respiratory failure on 2 L nasal cannula, 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 Patient states that since being discharged from the emergency department for evaluation 12/13/2024 for similar symptoms, she had initially been doing okay but then on Thursday started getting acutely worse with increased shortness of breath. She states that it feels like she is smothering. She denies any fevers, cough, chest pain, abdominal pain, vomiting, or other concerns. She arrives by EMS who noted that she had an O2 saturation of 90% on her home 2 L nasal cannula, so they increased her to 4 L with an O2 sat of 94%. Related Data Home Medications ?Medication ?Instructions ?Recorded ?Confirmed calcium carbonate (Calcium 600) 600 mg PO DAILY 10/03/23 12/07/24 levothyroxine 150 mcg tablet 300 mcg PO DAILYDM 08/16/24 12/07/24 cyanocobalamin (vitamin B-12) 1,000 mcg PO DAILY 09/24/24 12/07/24 1,000 mcg tablet fluticasone fur. 100 mcg-umeclid 1 inh inhalation DAILY 09/24/24 12/07/24 62.5 mcg-vilant 25 mcg inhalat.powder (Trelegy Ellipta) ipratropium 0.5 mg-albuterol 3 mg 3 ml inhalation QIDP PRN shortness 09/24/24 12/07/24 (2.5 mg base)/3 mL nebulization of breath or wheezing soln lisinopril 40 mg tablet 40 mg PO DAILY 09/24/24 12/07/24 trazodone 150 mg tablet 300 mg PO HS 09/24/24 12/07/24 bupropion HCl 200 mg tablet,12 hr 400 mg PO DAILY 12/02/24 12/07/24 sustained-release metformin 500 mg tablet 500 mg PO BIDWMEAL 12/02/24 12/07/24 ondansetron 4 mg disintegrating 4 mg PO Q4HP PRN nausea, vomiting 12/02/24 12/07/24 tablet meloxicam 15 mg tablet 15 mg PO DAILYP PRN Moderate Pain 12/03/24 12/07/24 (Scale Score 5-6) torsemide 20 mg tablet 60 mg PO BIDL 12/03/24 12/07/24 albuterol sulfate 90 mcg/actuation 2 puff inhalation Q4HP PRN 12/07/24 12/07/24 aerosol inhaler Shortness Of Breath Previous Rx's ?Medication ?Instructions ?Recorded cholecalciferol (vitamin D3) 1,250 1,250 mcg PO WEEKLY #12 caps 05/26/24 mcg (50,000 unit) capsule spironolactone 25 mg tablet 25 mg PO DAILY #90 tabs 07/06/24 atorvastatin 40 mg tablet 40 mg PO HS #90 tabs 11/01/24 evolocumab 140 mg/mL subcutaneous 140 mg SQ Q2W #2 mL 11/24/24 pen injector (Meli Dowling) cephalexin 500 mg capsule 500 mg PO TID 4 days #12 caps 12/07/24 metoprolol succinate 25 mg 25 mg PO DAILY 30 days #30 tabs 12/07/24 tablet,extended release 24 hr aspirin 81 mg tablet,delayed See Rx Instructions .Route 12/20/24 release .COMPLEX #30 tabs oxybutynin chloride 5 mg tablet See Rx Instructions .Route 12/20/24 .COMPLEX #60 tabs ropinirole 4 mg tablet See Rx Instructions .Route 12/20/24 .COMPLEX #90 tabs semaglutide 0.25 mg or 0.5 mg (2 See Rx Instructions .Route 12/20/24 mg/3 mL) subcutaneous pen injector .COMPLEX #3 mL (Ozempic) metolazone 5 mg tablet 5 mg PO Q12H #180 tabs 12/23/24 spironolactone 100 mg tablet 100 mg PO DAILY #90 tabs 12/23/24 Allergies Allergy/AdvReac Type Severity Reaction Status Date / Time adhesive tape (ADHESIVE TAPE) Allergy Unknown Blister Verified 11/22/24 14:36 hydromorphone (From DILAUDID) Allergy Unknown Hypotension Verified 11/22/24 14:36 nickel (NICKEL) Allergy Unknown Blister Verified 11/22/24 14:36 [facility] Disclaimer: The information contained in this section may have been updated after the patient was seen, as this information can be updated by other users. Medical History HLD (hyperlipidemia) Obesity Abdominal pain UTI (urinary tract infection) Hospital discharge follow-up Establishing care with new doctor, encounter for Restless leg Glaucoma Arthritis of both knees Urinary incontinence Unspecified asthma, uncomplicated Tear of meniscus of knee Pre-diabetes Diastolic CHF, acute on chronic Pulmonary hypertension Elevated left ventricular end-diastolic pressure (LVEDP) Asthma exacerbation Sleep apnea History of COVID-19 COPD (chronic obstructive pulmonary disease) Asthma Abscess of groin, right Acute exacerbation of chronic obstructive airways disease Left against medical advice Dependent on wheelchair Assistance needed for continence Incisional hernia Lower leg pain Knee pain Vaginal bleeding Perimenopausal Cellulitis Hypothyroidism Dizziness Chest pain Sinusitis Tobacco abuse counseling Tobacco abuse HONEY (obstructive sleep apnea) Ventral hernia Dyspnea Depression Pharyngitis due to Streptococcus species Epigastric pain Gastritis Strep throat HTN (hypertension) Hypothyroidism (acquired) TIA (transient ischemic attack) COPD exacerbation Paresthesias Shortness of breath Acute bronchitis Tobacco abuse COPD (chronic obstructive pulmonary disease) Infiltrate of lung present on chest x-ray Atelectasis of right lung Cough Upper respiratory infection Surgical History History of lateral meniscus repair of right knee H/O tubal ligation Hx of cholecystectomy H/O hernia repair History of colon resection Family History Mother Hypertension Diabetes Father Cancer Social History Smoking Status: Never smoker years smoked: 38 smoking status stop date: 3 months ago quit status: has quit before second hand exposure: Yes alcohol intake: never substance use type: denies use current occupational status: unemployed Travel in the last 8 weeks?: None household members: family and children housing: other lives independently: No marital status: legally number of children: 4 education level: other caffeine: Yes do you feel safe at home: Yes victim of physical abuse: No victim of emotional abuse: No victim of sexual abuse: No Have you lived/traveled outside [place] in past 30 days?: No Contact w/someone who lives/traveled outside US past 30 days?: No Exposure to someone with infectious disease in past 14 days?: No Do you have a fever (greater than 100.4 F or 38 C)?: No Have you tested positive for COVID-19?: No Exposed to someone with COVID-19 in past 14 days?: No Do you have a sore throat?: No Do you have a cough?: No Do you have any weakness?: No Do you have any diarrhea?: No Are you experiencing any unusual bleeding?: No Do you have any muscle aches/pain?: No Do you have any abdominal pain?: No Are you experiencing loss of taste or smell?: No Other Medical History Have you received the Flu Vaccine for this season: No Have you received the Pneumonia Vaccine: No ROS Obtained: Yes All systems reviewed & no additional complaints except as documented Physical Exam General General appearance: alert and obese Head Head exam: atraumatic and normocephalic Eye Eye exam: Present normal appearance, PERRL and EOMI ENT ENT exam: Present normal exam, normal oropharynx, mucous membranes moist and normal external ear exam Neck Neck exam: Present normal inspection, full ROM and trachea midline; Absent tenderness Chest Chest inspection: Present normal inspection and symmetric chest wall rise; Absent tenderness Respiratory Respiratory exam: Present prolonged expiratory phase and other (Significant diminished breath sounds, likely secondary to body habitus which limits exam); Absent respiratory distress, wheezes or stridor Cardiovascular Cardiovascular exam: Present Pacemaker w/paced rhythm Abdominal Exam Abdominal exam: Present soft; Absent distention, tenderness or guarding Extremities Exam Extremities exam: Present normal inspection, full ROM and normal capillary refill; Absent tenderness or edema Back Exam Back exam: Present normal inspection and full ROM; Absent tenderness Neurological Exam Neurological exam: Present alert, oriented X3 and CN II-XII intact; Absent motor sensory deficit Psychiatric Psychiatric exam: Present anxious Skin Skin exam: Present warm and dry Medical Decision Making Medical Records Medical records reviewed: Yes I reviewed the patient's medical records. Screening: Per USPSTF and CDC recommendations, given the prevalence of disease in our region, it is our hospital?s policy to screen for HIV and viral Hepatitis for all patients aged 18 and over and those with ongoing risk factors. [place] Inquiry Pt receiving controlled substance: No Vital Signs: 12/23/24 10:58 12/23/24 11:00 12/23/24 11:08 Temperature 98.0 F 98.0 F Temperature Source Oral Oral Pulse Rate 82 Pulse Rate [Right] 82 Respiratory Rate 28 H 28 H Blood Pressure 123/61 118/47 L Blood Pressure [Right Arm] 118/47 L Blood Pressure Mean 74 Blood Pressure Mean [Right Arm] 70 Blood Pressure Source Automatic Cuff Blood Pressure Source [Right Arm] Automatic Cuff Blood Pressure Position Supine Blood Pressure Position [Right Arm] Supine 02 Sat by Pulse Oximetry 95 95 Oxygen Delivery Method Nasal Cannula Nasal Cannula Oxygen Flow Rate (LPM) 3 3 12/23/24 11:38 12/23/24 11:40 12/23/24 12:30 Temperature Temperature Source Pulse Rate 72 70 60 Pulse Rate [Right] Respiratory Rate 27 H Blood Pressure 111/52 L 111/52 L 128/50 L Blood Pressure [Right Arm] Blood Pressure Mean Blood Pressure Mean [Right Arm] Blood Pressure Source Automatic Cuff Blood Pressure Source [Right Arm] Blood Pressure Position Supine Blood Pressure Position [Right Arm] 02 Sat by Pulse Oximetry 94 L 93 L 99 Oxygen Delivery Method Nasal Cannula Oxygen Flow Rate (LPM) 3 12/23/24 13:00 12/23/24 13:30 12/23/24 14:00 Temperature Temperature Source Pulse Rate 63 58 L 71 Pulse Rate [Right] Respiratory Rate Blood Pressure 112/49 L 129/61 Blood Pressure [Right Arm] Blood Pressure Mean 78 Blood Pressure Mean [Right Arm] Blood Pressure Source Blood Pressure Source [Right Arm] Blood Pressure Position Blood Pressure Position [Right Arm] 02 Sat by Pulse Oximetry 98 98 97 Oxygen Delivery Method Oxygen Flow Rate (LPM) Lab Data Lab results reviewed: Yes I reviewed the patient's lab results. Lab Results 12/23/24 10:50: WBC 10.3, RBC 3.19 L, Hgb 8.7 L, Hct 29.7 L, MCV 93.1, MCH 27.3, MCHC 29.3 L, RDW 17.3, Plt Count 309, MPV 10.6 H, Neut % (Auto) 76.5, Lymph % (Auto) 16.2, [place] % (Auto) 4.7, Eos % (Auto) 1.3, Baso % (Auto) 0.5, Neut # (Auto) 7.9 H, Lymph # (Auto) 1.7, [place] # (Auto) 0.5, Eos # (Auto) 0.1, Baso # (Auto) 0.1, D-Dimer 1.77 H, Sodium 137, Potassium 5.1, Chloride 97 L, Carbon Dioxide 39 H, Anion Gap 6.1, BUN 11, Creatinine 0.70, Estimated Creat Clear 74, Estimated GFR 87, Est GFR ( Amer) 105, Glucose 182 H, Calcium 8.4, Magnesium 2.2, Total Bilirubin 0.3, AST 28, ALT 21, Alkaline Phosphatase 106, Troponin I < 0.01, NT-Pro-B Natriuret Pep 3180 H, Total Protein 6.5, Albumin 3.3 L, Globulin 3.2, Albumin/Globulin Ratio 1.0 L, TSH 3.22, Thyroxine (T4) 11.6 H 12/23/24 11:02: VBG pH 7.48 H, VBG pCO2 43.9, VBG pO2 57.4 H, VBG HCO3 31.9 H, VBG Total CO2 33.2 H, VBG O2 Saturation 90.3 H, VBG Base Excess 8.4 H, VBG Lactic Acid 2.2 H 12/23/24 10:50 12/23/24 10:50 Orders (Tests/Meds): ED MEDICATIONS Generic Name Dose Route Start Last Admin Trade Name Freq PRN Reason Stop Dose Admin Sodium Chloride 10 ml 12/23/24 12:11 12/23/24 12:13 Sodium Chloride 0.9% 10ml Syr (Rad Only) IV 01/22/25 12:10 10 ml NEEDED PRN Administration Maintain IV Site Discontinued Medications Generic Name Dose Route Start Last Admin Trade Name Freq PRN Reason Stop Dose Admin Furosemide 80 mg 12/23/24 12:05 12/23/24 12:19 Furosemide 40mg/4ml Vial IV 12/23/24 12:06 80 mg ONCE ONE Administration Iopamidol 75 ml 12/23/24 12:11 12/23/24 12:12 Iopamidol-370 (76%);100ml Bottle IV 12/23/24 12:12 75 ml ONCE ONE Administration Sodium Chloride 50 ml 12/23/24 12:11 12/23/24 12:12 0.9 % Sodium Chloride 50 Ml Vial IV 12/23/24 12:12 50 ml ONCE ONE Administration ORDERS Category Date Time Status CTA Chest [CT angio chest PE protocol] Stat Cat Scan 12/23/24 11:32 Completed CXR --portable [XR chest portable] Stat Exams 12/23/24 10:54 Completed BNP [NT Pro Brain Natriuretic Pep.] Stat Lab 12/23/24 10:50 Completed Complete Blood Count Auto Diff Stat Lab 12/23/24 10:50 Completed Comprehensive Metabolic Panel Stat Lab 12/23/24 10:50 Completed D-Dimer Stat Lab 12/23/24 10:50 Completed MAG [Magnesium] Stat Lab 12/23/24 10:50 Completed T4 (Thyroxine) Stat Lab 12/23/24 10:50 Completed TSH [Thyroid Stimulating Hormone] Stat Lab 12/23/24 10:50 Completed Trop I [Troponin I] Stat Lab 12/23/24 10:50 Completed Troponin I Q3H Lab 12/23/24 14:00 Ordered Troponin I Q3H Lab 12/23/24 17:00 Ordered VBG [Venous Blood Gas] Stat RT 12/23/24 11:02 Completed ECG Data Tracing #1: I reviewed this ECG and interpreted as documented below: Paced at a rate of 63 bpm. No acute STEMI ECG initial impression date: 12/23/24 ECG initial impression time: 11:01 Medical Decision Narrative: In summary, this patient is a 54-year-old female presenting to the Emergency Department for evaluation of shortness of breath. Differential diagnoses considered include but are not limited to CHF exacerbation, COPD exacerbation, pneumonia, ACS, acute on chronic respiratory failure, obesity hypoventilation syndrome, PE. Ruling out the most morbid conditions drove assessment. It should be noted patient's history includes obesity, HONEY, hypertension, hyperlipidemia, CHF, COPD, cardiac dysrhythmia status post pacemaker placement which may or may not be at goal therapy. This complicates all aspects of care by increasing patient's risk for morbidity. I reviewed patient's past medical records and noted previous admission here to the hospital for symptomatic bradycardia with subsequent transfer to [facility] for pacemaker placement, as she was too large for our Security Intern table. She had pacemaker placement and subsequent rate was transferred back to her hospital and admitted for CHF. She was able to be discharged home 12/07/2024. She represented again 12/11/2024 with concern for intermittent confusion and shortness of breath. She was able to be discharged home after reassuring workup and exam. She also represented 12/13/2024 for shortness of breath, at which point workup was reassuring and she requested to go home, leaving in stable condition. I reviewed prior echo from 12/07/2024 that showed no pericardial effusion though she does have some septal dyssynchrony On exam, the patient is extremely obese with apparent obesity hypoventilation syndrome and significant diminished breath sounds with exam limited secondary to body habitus. She is appropriately paced with normal blood pressure. EKG obtained demonstrates appropriate pacing. She is not in any significant distress. Her O2 saturation is 96% on 3 L nasal cannula. workup included CBC, CMP, troponin, BNP, D-dimer, TSH, T4, VBG, chest x-ray, EKG. I independently interpreted chest x-ray prior to the radiologist read and noted it is very difficult to make any differences based on this x-ray given the poor penetrance related to her morbid obesity. Please see their read for final interpretation. They noted possible pacemaker displacement, but it appears to be in appropriate placement on exam, and I interrogated the patient's device and it appears to be functioning well, pacing 48% of the time with a set rate of 60 bpm. Labs were obtained that demonstrated reassuring CBC with slight worsening of chronic anemia, no indication for transfusion at this time. She has no significant leukocytosis. VBG demonstrates mild mixed respiratory metabolic alkalosis. Chemistry demonstrates negative troponin. She does have significant elevation in BNP compared to prior and also has significant elevation in D-dimer. Given this, decision was made to obtain CTA PE protocol. I independently interpreted CTA prior to radiology read and noted there was poor contrast timing with poor penetrance of her pulmonary arteries, but there is no obvious large central PE. She does have small bilateral pleural effusions.. Overall, I feel the patient likely has volume overload in the setting of diastolic cardiac dysfunction. She was given 80 of IV Lasix here with over a liter of urine output afterward. She does state that she is taking her torsemide at home. She felt much better after diuresis with Lasix and was able to be weaned back to her home oxygen. I called and had an indirect discussion with Dr. David with cardiology who recommended increasing her spironolactone to 100 mg daily and adding metolazone 5 mg twice daily. He recommend follow-up in their clinic Thursday morning, which identifies the patient. She is agreeable to this. She is feeling a lot better and is back on her home oxygen, and workup otherwise is reassuring. Given this, I feel that she is appropriate for discharge home with close cardiology follow-up as detailed. She was given strict return precautions. Critical Care Critical Care Time Critical Care Time: Yes Attestation: On 12/23/24, the high probability of a clinically significant, sudden or life threatening deterioration of the following system(s) required my full and direct attention, intervention and personal management. The time I documented below is in addition to time spent performing reported procedures but includes the following listed in this critical care notation. Total Time Total Critical Care Time: 35
[2024-12-23 10:59] LABS: Basophils # 0.1 K/mm3 (0-0.2); Basophils % 0.5 % (0.1-2.0); Eosinophils # 0.1 Kmm3 (0.0-0.4); Eosinophils % 1.3 % (0.1-12.0); Hematocrit 29.7 % (37.0-47.0); Hemoglobin 8.7 g/dL (12.2-16.2); Immature Granulocytes # 0.08 10^3uL; Immature Granulocytes % 0.8 %; Lymphocytes # 1.7 K/mm3 (0.7-4.5); Lymphocytes % 16.2 % (10-50); Mean Corpuscular HGB Conc 29.3 g/dL (31.8-35.4); Mean Corpuscular Hemoglobin 27.3 pg (27.0-31.2); Mean Corpuscular Volume 93.1 fl (81-99); Mean Platelet Volume 10.6 fl (7.4-10.4); Monocytes # 0.5 K/mm3 (0.1-1.0); Monocytes % 4.7 % (1.7-9.3); Neutrophils # 7.9 K/mm3 (1.8-7.8); Neutrophils % 76.5 % (37.0-80.0); Nucleated Red Blood Cells # 0.05 10^3/uL; Nucleated Red Blood Cells % 0.5 %; Platelet Count 309 K/mm3 (142-424); Red Blood Count 3.19 M/mm3 (4.20-5.40); Red Cell Distribution Width 17.3 % (11.5-17.5); Red Cell Distribution Width-SD 58.5 fL; White Blood Count 10.3 K/mm3 (4.8-10.8)
--- NOTE | 2024-12-23 10:59 | ECG_ITS ---
APPROVED REPORT Exam: Resting ECG HR:63 bpm ECG Measurements Heart Rate 63 AXES QRSd 121 QRS 100 QT 393 T -54 QTc 401 Conclusion ELECTRONIC VENTRICULAR PACEMAKER ABNORMAL RHYTHM ECG Electronically signed by : SHIRLEY JOHNSON, 12/24/2024 03:53:23
--- NOTE | 2024-12-23 11:02 | PC.NURSE ---
call made to house superintendent to see about getting a bigger bed for pt. pt states that she is uncomfortable in stretcher.
[2024-12-23 11:15] LABS: VBG Base Excess 8.4 mmol/L (-2.4-2.3); VBG HCO3 31.9 mmol/L (23-30); VBG Oxygen Saturation 90.3 % (50-70); VBG PCO2 43.9 mmol/L (35-51); VBG PH 7.48 mmol/L (7.31-7.41); VBG PO2 57.4 mmol/L (28-40); VBG Total CO2 33.2 mmol/L (23-27)
[2024-12-23 11:17] LABS: Lactate Venous 2.2 mmol/L (0.4-2.0)
[2024-12-23 11:18] LABS: Albumin Level 3.3 g/dl (3.5-5.0); Chloride 97 mmol/L (98-107)
[2024-12-23 11:19] LABS: Potassium 5.1 mmoL/L (3.5-5.1); Sodium 137 mmol/L (136-145)
--- OUTSIDE RECORDS SUMMARY | 2024-12-23 11:19 | XMS_ITS | Clinical Summary ---
Author Organization Healthcare Address [address] [place] [address] Care Team Providers Care Slumber Room Attendant Name Role Phone Brian Arguelles MD Primary Care Provider [phone] Social History Tobacco Use Types Packs/Day Years Used Date Smoking Tobacco: Never Assessed Comments Unknown Sex and Gender Information Value Date Recorded Sex Assigned at Not on file Legal Sex Female 7:51 PM EDT Gender Identity Not on file Sexual Orientation Not on file Plan of Treatment Health Maintenance Due Date Last Done Comments [facility]-Depression Screening 1968 [facility]-/Child/Adol SDOH Screenings 1968 [facility]- SDOH Screenings 1986 [facility]-Adult SDOH Screenings 1986 [facility]-Hepatitis B Vaccines (1 of 3 - 19+ 3-dose series) 1987 [facility]-Pap Smear 1989 [facility]-Cervical Cancer Screening 1998 [facility]-HPV/Cotest 1998 CT Colonography 2013 Colonoscopy 2013 FIT-DNA 2013 FIT 2013 FOBT 2013 Sigmoidoscopy 2013 [facility]-Colorectal Cancer Screening 2013 [facility]-DTaP,Tdap,and Td Vaccine s (2 - Td or Tdap) 10/22/2016 10/22/2006 [facility]-Zoster Vaccines (1 of 2) 2018 [facility]-Pneumococcal Vaccine: 50 + Years (2 of 2 - PCV) 05/21/2021 05/21/2020 ENT-ORYGB-57 Vaccine (1 - 2023- season) 2024 [facility]-Influenza Vaccine ([place] n Ended) 2025 05/21/2020, 04/25/2016 HPV Vaccines Aged Out No longer eligi ble based on patient's age to complete this topic [facility]-HIB Vaccines Aged Out No longer e ligible based on patient's age to complete this topic [facility]-Hepatitis A Vaccines Aged Out No longer eligible based on patient's age to complete this topic [facility]-IPV Vaccines Aged Out No longer e ligible based on patient's age to complete this topic [facility]-Rotavirus Vaccines Aged Out No lo nger eligible based on patient's age to complete this topic Insurance [employer]ARE [employer] MEDICAID Care Teams Slumber Room Attendant Relationship Specialty Start Date End Date Brian Arguelles MD [address] NIKO Dahl PCP - General 11/30/20
[2024-12-23 11:21] LABS: Alanine Aminotransferase 21 U/L (12-78); Anion Gap 6.1 mEq/L (5-15); Aspartate Amino Transferase 28 U/L (14-36); Blood Urea Nitrogen 11 mg/dl (7-17); Carbon Dioxide 39 mmol/L (22.0-30.0); Creatinine Clearance Estimated 74 mL/min (50-200); Estimated Glomerular Filt Rate 87 ml/min (>60); GFR (African American) 105 ML/MIN (>60)
[2024-12-23 11:22] LABS: Alkaline Phosphatase 106 U/L (38-126); Bilirubin,Total 0.3 mg/dl (0.2-1.3); Calcium 8.4 mg/dl (8.4-10.2); Globulin 3.2 g/dL (1.3-3.2); Glucose 182 mg/dl (74-100); Total Protein,Serum 6.5 g/dl (6.3-8.2)
[2024-12-23 11:26] LABS: D-Dimer 1.77 ug/mL (0.0-0.5)
--- NOTE | 2024-12-23 11:32 | CT_ITS ---
FINAL REPORT TECHNIQUE: Axial imaging of the chest is obtained after the administration of contrast. 3-D MIP reformatted images were also obtained and reviewed per PE protocol. CLINICAL HISTORY: chest pain/SOA, elevated dimer COMPARISON: 08/23/2024 FINDINGS: There is suboptimal opacification of the pulmonary arteries. No central pulmonary embolism. No aortic dissection.. Heart size is normal. There is no axillary lymphadenopathy. Small mediastinal lymph nodes are stable since the previous exam. No hilar lymphadenopathy. Bilateral lower lobe airspace disease is favored to be atelectasis. The lungs are otherwise clear. New small bilateral pleural effusions. No pericardial effusion. Limited evaluation of the upper abdomen is without acute abnormality. No acute osseous abnormality. IMPRESSION: Suboptimal opacification of the pulmonary arteries without central pulmonary embolism. New small bilateral pleural effusions with associated atelectasis. Reviewed, Interpreted and Dictated by Sushma Peterson MD Transcribed by Ivis Matthew Authenticated and [facility]
--- NOTE | 2024-12-23 11:36 | PC.NURSE ---
pt placed on larger bed for comfort.
[2024-12-23 11:37] LABS: NT Pro Brain Natriuretic Pep. 3180 pg/mL (0-125)
[2024-12-23 11:38] LABS: T4 (Thyroxine) 11.6 ug/dl (5.53-11.0)
[2024-12-23 11:39] LABS: Troponin I < 0.01 ng/ml (0.00-0.034)
[2024-12-23 11:43] LABS: Magnesium 2.2 mg/dl (1.6-2.3)
[2024-12-23 11:51] LABS: Thyroid Stimulating Hormone 3.22 uIU/mL (0.465-4.68)
[2024-12-23] MEDS: IOPAMIDOL-370 (76%);100ML BOTTLE 75 ML IV (12:12)
[2024-12-23] MEDS: 0.9 % SODIUM CHLORIDE 50 ML VIAL IV (12:12)
[2024-12-23] MEDS: SODIUM CHLORIDE 0.9% 10ML SYR (RAD ONLY) 10 ML IV (12:13)
[2024-12-23] MEDS: FUROSEMIDE 40MG/4ML VIAL 80 MG IV (12:19)
--- OUTSIDE RECORDS SUMMARY | 2024-12-23 12:19 | XMS_ITS | CCD ---
Author Organization Unknown Care Team Providers Care Cotton Sampler Name Role Phone Unavailable Primary Care Provider Unavailabl e Unavailable Chronic Care Management Unavaila ble Summary Purpose DataExchange Insurance Providers Payer name Policy type / Coverage type Covered green party ID Effective Begin Date Effective End Date [facility] [id number] Unknown Unknown Family History Family History data not found Medication Administered No Medication Administered data Reason For Visit No Reason For Visit data Medical Equipment No Medical Equipment data Advance Directives No Advance Directive data
--- NOTE | 2024-12-23 12:27 | PC.NURSE ---
pts pacemaker interrogated, awaiting for the results to be faxed to printer.
--- NOTE | 2024-12-23 12:42 | PC.NURSE ---
pacer interrogation completed, fax result given to dr marrero.
--- NOTE | 2024-12-23 13:07 | PC.NURSE ---
on the phone with casandra.
[2024-12-23 15:17] LABS: Reflex Lactic Add Lactic Reflex
--- OUTSIDE RECORDS SUMMARY | 2025-02-09 20:00 | XMS_ITS | Clinical Summary ---
Author Organization Unknown Care Team Providers Care Welt Stitcher Name Role Phone KAYLEN DO, KADE Unavailable Unavailable RAVINDER PT, DEBRA Unavailable Unavailable [employer] SURVEILLANCE SPECIALIST, CHAPIS Unavailable Unavailable ELINOR OT, JAIME Unavailable Unavailable Payers Payer Name Policy Type Policy Number Effective Date Expira tion Date [facility]AUTH [id number] Problems Condition Name Condition Details Condition Category [...] PHYSICIANS PCP RN TO OBSERVE AND ASSESS, CABLE INSTALLATION TECHNICIAN/UNIFORM DESIGNER TO OBSERVE FOR RISK FOR FALLS AND INSTRUCT IN FALL PREVENTION, HOME SAFETY, MEDICATION MANAGEMENT, INFECTION PREVENTION, AND NUTRITION MANAGEMENT. RN/CABLE INSTALLATION TECHNICIAN/UNIFORM DESIGNER NURSE MAY PERFORM O2 SATURATION LEVEL ON ADMISSION AND PRN FOR SOB FOR RN TO ASSESS/CABLE INSTALLATION TECHNICIAN TO OBSERVE PATIENT, WITH NOTIFICATION TO THE PHYSICIAN IF SATURATION IS 90% IN THE ABSENCE OF MORE SPECIFIC PARAMETERS FROM THE PHYSICIAN. AGENCY MAY PERFORM A RESUMPTION OF CARE VISIT FOLLOWING ANY HOSPITAL ADMISSION. RN/CABLE INSTALLATION TECHNICIAN/UNIFORM DESIGNER TO MONITOR CO-MORBID CONDITIONS LISTED ON THE PLAN OF CARE AND ANY NEW CONDITIONS THAT PRESENT THEMSELVES DURING THIS EPISODE TO IDENTIFY CHANGES AND INTERVENE TO MINIMIZE COMPLICATIONS. [code = RN TO OBSERVE, ASSESS, EVALUATE, AND DEVELOP AN INDIVIDUALIZED PLAN OF CARE. AGENCY MAY ACCEPT ORDERS FROM CONSULTING PHYSICIANS PCP RN TO OBSERVE AND ASSESS, CABLE INSTALLATION TECHNICIAN/UNIFORM DESIGNER TO OBSERVE FOR RISK FOR FALLS AND INSTRUCT IN FALL PREVENTION, HOME SAFETY, MEDICATION MANAGEMENT, INFECTION PREVENTION, AND NUTRITION MANAGEMENT. RN/CABLE INSTALLATION TECHNICIAN/UNIFORM DESIGNER NURSE MAY PERFORM O2 SATURATION LEVEL ON ADMISSION AND PRN FOR SOB FOR RN TO ASSESS/CABLE INSTALLATION TECHNICIAN TO OBSERVE PATIENT, WITH NOTIFICATION TO THE PHYSICIAN IF SATURATION IS 90% IN THE ABSENCE OF MORE SPECIFIC PARAMETERS FROM THE PHYSICIAN. AGENCY MAY PERFORM A RESUMPTION OF CARE VISIT FOLLOWING ANY HOSPITAL ADMISSION. RN/CABLE INSTALLATION TECHNICIAN/UNIFORM DESIGNER TO MONITOR CO-MORBID CONDITIONS LISTED ON THE PLAN OF CARE AND ANY NEW CONDITIONS THAT PRESENT THEMSELVES DURING THIS EPISODE TO IDENTIFY CHANGES AND INTERVENE TO MINIMIZE COMPLICATIONS.] Future Scheduled Test MEDICATION MANAGEMENT; RN/CABLE INSTALLATION TECHNICIAN/UNIFORM DESIGNER TO REVIEW MEDICATIONS FOR INTERACTIONS, EFFECTIVENESS OF DRUG THERAPY, AND SIGNS/SYMPTOMS OF ADVERSE REACTIONS. MAY INSTRUCT AND REINFORCE MEDICATION TEACHING RELATED TO THE USE OF MEDICATIONS, DOSAGE, FREQUENCY, PURPOSE, SIDE EFFECTS, AND TO REPORT COMPLICATIONS. [code = MEDICATION MANAGEMENT; RN/CABLE INSTALLATION TECHNICIAN/UNIFORM DESIGNER TO REVIEW MEDICATIONS FOR INTERACTIONS, EFFECTIVENESS OF DRUG THERAPY, AND SIGNS/SYMPTOMS OF ADVERSE REACTIONS. MAY INSTRUCT AND REINFORCE MEDICATION TEACHING RELATED TO THE USE OF MEDICATIONS, DOSAGE, FREQUENCY, PURPOSE, SIDE EFFECTS, AND TO REPORT COMPLICATIONS.] Future Scheduled Test CARDIOVASC ULAR SYSTEM; RN TO ASSESS/TEACH, CABLE INSTALLATION TECHNICIAN/UNIFORM DESIGNER TO OBSERVE/TEACH RELATED TO ALTERED CARDIOVASCULAR STATUS TO MINIMIZE COMPLICATIONS AND REDUCE HOSPITALIZATION. [code = CARDIOVASCULAR SYSTEM; RN TO ASSESS/TEACH, CABLE INSTALLATION TECHNICIAN/UNIFORM DESIGNER TO OBSERVE/TEACH RELATED TO ALTERED CARDIOVASCULAR STATUS TO MINIMIZE COMPLICATIONS AND REDUCE HOSPITALIZATION.] Future Scheduled Test HEART FAIL URE; RN TO ASSESS/TEACH, CABLE INSTALLATION TECHNICIAN/UNIFORM DESIGNER TO OBSERVE/TEACH CARDIOPULMONARY SYSTEM TO IDENTIFY SIGNS [...] [code = HEART FAILURE; RN TO ASSESS/TEACH, CABLE INSTALLATION TECHNICIAN/UNIFORM DESIGNER TO OBSERVE/TEACH CARDIOPULMONARY SYSTEM TO IDENTIFY SIGNS [...] IF NEEDED.] Future Scheduled Test PACEMAKER MANAGEMENT; RN/CABLE INSTALLATION TECHNICIAN/UNIFORM DESIGNER TO PROVIDE SKILLED TEACHING AND ASSIST WITH MANAGEMENT OF PACEMAKER. [code = PACEMAKER MANAGEMENT; RN/CABLE INSTALLATION TECHNICIAN/UNIFORM DESIGNER TO PROVIDE SKILLED TEACHING AND ASSIST WITH MANAGEMENT OF PACEMAKER.] Future Scheduled Test RESPIRATOR Y SYSTEM MANAGEMENT; RN TO ASSESS AND TEACH, CABLE INSTALLATION TECHNICIAN/UNIFORM DESIGNER TO OBSERVE AND TEACH RELATED TO ALTERED RESPIRATORY STATUS TO MINIMIZE COMPLICATIONS AND REDUCE HOSPITALIZATION. [code = RESPIRATORY SYSTEM MANAGEMENT; RN TO ASSESS AND TEACH, CABLE INSTALLATION TECHNICIAN/UNIFORM DESIGNER TO OBSERVE AND TEACH RELATED TO ALTERED RESPIRATORY STATUS TO MINIMIZE COMPLICATIONS AND REDUCE HOSPITALIZATION.] Future Scheduled Test OXYGEN THE RAPY; RN/CABLE INSTALLATION TECHNICIAN/UNIFORM DESIGNER TO INSTRUCT ON OXYGEN MANAGEMENT INCLUDING: ADMINISTRATION AT 3L/MIN VIA CONCENTRATOR [employer] FOR CARE OF EQUIPMENT AND SAFETY. [code = OXYGEN THERAPY; RN/CABLE INSTALLATION TECHNICIAN/UNIFORM DESIGNER TO INSTRUCT ON OXYGEN MANAGEMENT INCLUDING: ADMINISTRATION AT 3L/MIN VIA CONCENTRATOR [employer] CAN[employer] FOR CARE OF EQUIPMENT AND SAFETY.] Future Scheduled Test PAIN MANAG EMENT; RN TO ASSESS AND TEACH, UNIFORM DESIGNER/CABLE INSTALLATION TECHNICIAN TO OBSERVE AND TEACH AND PROVIDE EDUCATION ON PAIN MANAGEMENT TECHNIQUES. [code = PAIN MANAGEMENT; RN TO ASSESS AND TEACH, UNIFORM DESIGNER/CABLE INSTALLATION TECHNICIAN TO OBSERVE AND TEACH AND PROVIDE EDUCATION ON PAIN MANAGEMENT TECHNIQUES.] Future Scheduled Test FALL REDUC TION MANAGEMENT; RN TO ASSESS AND OBSERVE, CABLE INSTALLATION TECHNICIAN/UNIFORM DESIGNER TO OBSERVE FALL RISK FACTORS AND EDUCATE PATIENT/CAREGIVER ON STRATEGIES TO MINIMIZE THE RISK OF FALLING. [code = FALL REDUCTION MANAGEMENT; RN TO ASSESS AND OBSERVE, CABLE INSTALLATION TECHNICIAN/UNIFORM DESIGNER TO OBSERVE FALL RISK FACTORS AND EDUCATE PATIENT/CAREGIVER ON STRATEGIES TO MINIMIZE THE RISK OF FALLING.] Future Scheduled Test RN/CABLE INSTALLATION TECHNICIAN/UNIFORM DESIGNER TO PERFORM/TEACH PATIENT/CAREGIVER WOUND CARE TO EXCORIATED BILATERAL INNER THIGHS IRRIGATE/CLEANSE SOAP AND WATER RINSE WELL AND DRY APPLY MEDICATED POWDER TWICE DAILY AND PRN [code = RN/CABLE INSTALLATION TECHNICIAN/UNIFORM DESIGNER TO PERFORM/TEACH PATIENT/CAREGIVER WOUND CARE TO EXCORIATED [...] AND ADJUSTMENT TO CARE. [code = MEDICAL FITTINGS TIGHTENER FOR EVALUATION TO ASSESS SOCIAL AND EMOTIONAL FACTORS RELATED TO THE PATIENT'S ILLNESS, NEED FOR CARE, RESPONSE TO TREATMENT AND ADJUSTMENT TO CARE.] Future Scheduled Test AGENCY MAY PERFORM A RESUMPTION OF CARE VISIT FOLLOWING ANY HOSPITAL ADMISSION. PT TO EVALUATE, OBSERVE / ASSESS, AND MONITOR, SURVEILLANCE SPECIALIST TO OBSERVE AND MONITOR, PROVIDE SKILLED THERAPEUTIC INTERVENTION, ACTIVITY, EDUCATION, AND TRAINING TO ADDRESS; PT/SURVEILLANCE SPECIALIST TO PROVIDE GAIT TRAINING FOR IMPROVED MOBILITY AND /OR TO NORMALIZE GAIT PATTERN THERAPEUTIC EXERCISES AND ESTABLISHING A HOME EXERCISE PROGRAM (PT/SURVEILLANCE SPECIALIST) SIT TO/FROM STAND TRANSFERS (PT/SURVEILLANCE SPECIALIST) PT / SURVEILLANCE SPECIALIST TO MONITOR AND EDUCATE ON OXYGEN SATURATION DURING ADLS/IADLS, NOTIFY PHYSICIAN AND/OR THE RN CLINICAL ACCOUNTANT ASSISTANT FOR PHYSICIAN NOTIFICATION AND IF O2 SATS BELOW PHYSICIAN ORDERED PARAMETERS AFTER 10 MIN OF REST PT / SURVEILLANCE SPECIALIST TO INSTRUCT PATIENT/CAREGIVER ON RISK FOR HOSPITALIZATION/EMERGENCY ROOM VISITS, TEACH SIGNS AND SYMPTOMS THAT PUT PATIENT AT RISK, WHEN TO NOTIFY NURSE/PHYSICIAN OF COMPLICATIONS/DECLINE, AND WHEN TO CALL 911. PT TO ASSESS / SURVEILLANCE SPECIALIST TO MONITOR CARDIO/RESPIRATORY SYSTEM; AND NOTIFY THE PHYSICIAN AND/OR THE RN CLINICAL ACCOUNTANT ASSISTANT FOR PHYSICIAN NOTIFICATION FOR EARLY SIGNS AND SYMPTOMS OF EXACERBATION OR DETERIORATION. PT / SURVEILLANCE SPECIALIST TO EDUCATE ON PACEMAKER SELF-MANAGEMENT PT/SURVEILLANCE SPECIALIST TO IDENTIFY FALL RISK FACTORS; EDUCATE THE PATIENT/CAREGIVER ON WAYS TO REDUCE FALL RISK FACTORS AND ESTABLISH HOME EXERCISE PROGRAM TO MINIMIZE FALL RISK. MAY TEACH THE PATIENT FLOOR RECOVERY WHEN CLINICALLY APPROPRIATE [code = AGENCY MAY PERFORM A RESUMPTION OF CARE VISIT FOLLOWING ANY HOSPITAL ADMISSION. PT TO EVALUATE, OBSERVE / ASSESS, AND MONITOR, SURVEILLANCE SPECIALIST TO OBSERVE AND MONITOR, PROVIDE SKILLED THERAPEUTIC INTERVENTION, ACTIVITY, EDUCATION, AND TRAINING TO ADDRESS; PT/SURVEILLANCE SPECIALIST TO PROVIDE GAIT TRAINING FOR IMPROVED MOBILITY AND /OR TO NORMALIZE GAIT PATTERN THERAPEUTIC EXERCISES AND ESTABLISHING A HOME EXERCISE PROGRAM (PT/SURVEILLANCE SPECIALIST) SIT TO/FROM STAND TRANSFERS (PT/SURVEILLANCE SPECIALIST) PT / SURVEILLANCE SPECIALIST TO MONITOR AND EDUCATE ON OXYGEN SATURATION DURING ADLS/IADLS, NOTIFY PHYSICIAN AND/OR THE RN CLINICAL ACCOUNTANT ASSISTANT FOR PHYSICIAN NOTIFICATION AND IF O2 SATS BELOW PHYSICIAN ORDERED PARAMETERS AFTER 10 MIN OF REST PT / SURVEILLANCE SPECIALIST TO INSTRUCT PATIENT/CAREGIVER ON RISK FOR HOSPITALIZATION/EMERGENCY ROOM VISITS, TEACH SIGNS AND SYMPTOMS THAT PUT PATIENT AT RISK, WHEN TO NOTIFY NURSE/PHYSICIAN OF COMPLICATIONS/DECLINE, AND WHEN TO CALL 911. PT TO ASSESS / SURVEILLANCE SPECIALIST TO MONITOR CARDIO/RESPIRATORY SYSTEM; AND NOTIFY THE PHYSICIAN AND/OR THE RN CLINICAL ACCOUNTANT ASSISTANT FOR PHYSICIAN NOTIFICATION FOR EARLY SIGNS AND SYMPTOMS OF EXACERBATION OR DETERIORATION. PT / SURVEILLANCE SPECIALIST TO EDUCATE ON PACEMAKER SELF-MANAGEMENT PT/SURVEILLANCE SPECIALIST TO IDENTIFY FALL RISK FACTORS; EDUCATE THE PATIENT/CAREGIVER ON WAYS TO REDUCE FALL RISK FACTORS AND ESTABLISH HOME EXERCISE PROGRAM TO MINIMIZE FALL RISK. MAY TEACH THE PATIENT FLOOR RECOVERY WHEN CLINICALLY APPROPRIATE] Future Scheduled Test MEDICAL SO CIAL SERVICES FOR COMMUNITY RESOURCE PLANNING. [code = MEDICAL FITTINGS TIGHTENER FOR COMMUNITY RESOURCE PLANNING.] Goal Patient Goal [...] End Date/Time Encounter Type Admission Type Attending [facility] Facility Care Department Encounter ID Discharge Date Discharge Status Discharge Condition Discharge Reason Percent Goals Met 2024-12-13 00:00:00 2025-02-10 00:00:00 Outpatient NEW ADMISSION DEBRA CASTELLON [facility] [id number] 66.67
== END 2024-12-23 14:45 | disposition home or self-care (01) ==
PROVIDERS: Emergency Provider Emergency Medicine; PCP Internal Medicine
DX: I50.33 Acute on chronic diastolic (congestive) heart failure (principal); J90 Pleural effusion, not elsewhere classified; E66.01 Morbid (severe) obesity due to excess calories; R06.02 Shortness of breath; J44.9 Chronic obstructive pulmonary disease, unspecified; Z68.45 Body mass index [BMI] 70 or greater, adult; Z87.891 Personal history of nicotine dependence; Z95.0 Presence of cardiac pacemaker; I11.0 Hypertensive heart disease with heart failure
CPT/HCPCS: 71045; 71275; 80053; 82803; 83735; 83880; 84436; 84443; 84484; 85025; 85378; 93005; 96374; 99285; J1938; Q9967

== ENCOUNTER 2024-12-24 15:41 | Inpatient (IN) | payer MEDICARE, OTHER, SELFPAY ==
[2024-12-24] VITALS (9 sets, daily range): BP systolic 97–123; BP diastolic 50–66; PULSE 60–90; RESP 13–20; TEMP 36.3–36.9; O2SAT 92–99; BMI 79.2; BMI 81.0
--- OUTSIDE RECORDS SUMMARY | 2024-12-24 15:45 | XMS_ITS | Clinical Summary ---
Author Organization Healthcare Address [address] [place] [address] Care Team Providers Care Manager Of Network Name Role Phone Brian Arguelles MD Primary Care Provider [phone]- [phone] Social History Tobacco Use Types Packs/Day Years [...] (2 of 2 - PCV) 05/21/2021 05/21/2020 [id number] Vaccine (1 - 2023- season) 2024 UKY-Influenza [...] MEDICARE [employer] MEDICAID Care Teams Manager Of Network Relationship Specialty Start Date End Date Brian Arguelles MD [address] NIKO Dahl PCP - General 11/30/20
--- OUTSIDE RECORDS SUMMARY | 2024-12-24 15:45 | XMS_ITS ---
Author Organization Unknown Encounters Encounter Type Performer Location Encounter Date Encoun ter Notes virtual Andreina Hernandez - [id number] no notes virtual Yogesh Diaz - [id number] 5.000Z no notes virtual Data Migration User - [id number] :50.000Z no notes Patient Care team information Name Category Status Period Participants - - Proposed period not known -
--- NOTE | 2024-12-24 15:56 | XR_ITS ---
PROCEDURE INFORMATION: Exam: XR Chest Exam date and time: 12/24/2024 4:42 PM Age: 54 years old Clinical indication: Dyspnea TECHNIQUE: Imaging protocol: Radiologic exam of the chest. Views: 1 view. COMPARISON: CT ANGIO CHEST PE PROTOCOL 12/23/2024 12:05 PM FINDINGS: Limitations: Chest structures are obscured from under penetrated film. Tubes, catheters and devices: Dual chamber pacemaker/cardioverter in appropriate position with lead tips in the right atrium and right ventricle. Airway: Airways are patent. Lungs: No consolidations. Pleural spaces: Costophrenic angles are obscured by superimposition of structures. No large pleural effusions. There is no evidence of pneumothorax. Heart/Mediastinum: No cardiomegaly. Bones/joints: No acute skeletal abnormality or aggressive osseous lesion. IMPRESSION: No acute findings. COMMENTS: Consider follow-up chest CT if warranted.
--- NOTE | 2024-12-24 15:58 | HMH.EDGENADL ---
Discharge Plan Disposition Patient Disposition: Admitted Prescriptions Prescriptions: No Action levothyroxine 150 mcg tablet 300 mcg PO DAILYDM Patient Comments: TAKE TWO TABLETS BY MOUTH EVERY DAY IN THE MORNING cholecalciferol (vitamin D3) 1,250 mcg (50,000 unit) capsule 1,250 mcg PO WEEKLY Qty: 12 3RF spironolactone 25 mg tablet 25 mg PO DAILY Qty: 90 3RF atorvastatin 40 mg tablet 40 mg PO HS Qty: 90 1RF Repatha SureClick 140 mg/mL pen injector 140 mg SQ Q2W Qty: 2 5RF ropinirole 4 mg tablet See Rx Instructions .ROUTE .COMPLEX Qty: 90 0RF Dose Instruction: TAKE ONE TABLET BY MOUTH EVERY DAY Rx Instructions: TAKE ONE TABLET BY MOUTH EVERY DAY aspirin 81 mg tablet,delayed release (DR/EC) See Rx Instructions .ROUTE .COMPLEX Qty: 30 0RF Dose Instruction: TAKE ONE TABLET BY MOUTH EVERY DAY Rx Instructions: TAKE ONE TABLET BY MOUTH EVERY DAY oxybutynin chloride 5 mg tablet See Rx Instructions .ROUTE .COMPLEX Qty: 60 0RF Dose Instruction: TAKE ONE TABLET BY MOUTH TWICE DAILY Rx Instructions: TAKE ONE TABLET BY MOUTH TWICE DAILY Ozempic 0.25 mg or 0.5 mg (2 mg/3 mL) pen injector See Rx Instructions .ROUTE .COMPLEX Qty: 3 0RF Dose Instruction: INJECT 0.5 MG SUBCUTANEOUSLY ONCE A WEEK Rx Instructions: INJECT 0.5 MG SUBCUTANEOUSLY ONCE A WEEK calcium carbonate [Calcium 600] 600 mg calcium (1,500 mg) Tablet 600 mg PO DAILY metformin 500 mg tablet 500 mg PO BIDWMEAL ondansetron 4 mg tablet,disintegrating 4 mg PO Q4HP PRN (Reason: nausea, vomiting) bupropion HCl 200 mg tablet sustained-release 12 hr 400 mg PO DAILY torsemide 20 mg tablet 60 mg PO BIDL meloxicam 15 mg tablet 15 mg PO DAILYP PRN (Reason: Moderate Pain (Scale Score 5-6)) cyanocobalamin (vitamin B-12) 1,000 mcg tablet 1,000 mcg PO DAILY Trelegy Ellipta 100-62.5-25 mcg blister with device 1 inh INHALATION DAILY Patient Comments: INHALE 1 PUFF BY MOUTH EVERY DAY --RINSE MOUTH AFTER USE-- ipratropium-albuterol 0.5 mg-3 mg(2.5 mg base)/3 mL solution for nebulization 3 ml inhalation QIDP PRN (Reason: shortness of breath or wheezing) trazodone 150 mg tablet 300 mg PO HS lisinopril 40 mg Tablet 40 mg PO DAILY albuterol sulfate 90 mcg/actuation HFA aerosol inhaler 2 puff inhalation Q4HP PRN (Reason: Shortness Of Breath) cephalexin 500 mg Capsule 500 mg PO TID 4 Days Qty: 12 0RF metoprolol succinate 25 mg Tablet Extended Release 24 Hr 25 mg PO DAILY 30 Days Qty: 30 0RF spironolactone 100 mg tablet 100 mg PO DAILY Qty: 90 1RF metolazone 5 mg tablet 5 mg PO Q12H Qty: 180 1RF Referrals Follow up/Referrals: Provider,Referral, MD [Primary Care Provider, Medical] - See instructions Clinical Impressions Clinical Impression: Morbid obesity with BMI of 70 and over, adult, Chronic dyspnea, Volume overload Print Language Print Language: Bahraini Discharge ED Provider: Cynthia Martinez General Adult HPI General Chief complaint: Shortness of Breath/Dyspnea Stated complaint: swelling Time Seen by Provider: 12/24/24 15:42 History of Present Illness HPI narrative: Patient is a 54-year-old morbidly obese with a BMI of over 70 with obesity hypoventilation syndrome and heart failure with preserved ejection fraction with chronic volume overload recently had a Mobitz type II transferred [facility] with a pacemaker presents to the emergency department for difficulty breathing and stating that the fluid is accumulating faster than I can get off. . Patient is currently taking care of by her son at home she states that she has been unable to walk for several years and that she can stand and pivot at most. She denies wanting to be in a snf. She states that she does have physical therapy occupational therapy and home health nursing coming once a week after recent hospitalization. Patient was in the emergency department yesterday had medications changed around and a bolus of Lasix given with some symptomatic improvement. Related Data Home Medications ?Medication ?Instructions ?Recorded ?Confirmed calcium carbonate (Calcium 600) 600 mg PO DAILY 10/03/23 12/07/24 levothyroxine 150 mcg tablet 300 mcg PO DAILYDM 08/16/24 12/07/24 cyanocobalamin (vitamin B-12) 1,000 mcg PO DAILY 09/24/24 12/07/24 1,000 mcg tablet fluticasone fur. 100 mcg-umeclid 1 inh inhalation DAILY 09/24/24 12/07/24 62.5 mcg-vilant 25 mcg inhalat.powder (Trelegy Ellipta) ipratropium 0.5 mg-albuterol 3 mg 3 ml inhalation QIDP PRN shortness 09/24/24 12/07/24 (2.5 mg base)/3 mL nebulization of breath or wheezing soln lisinopril 40 mg tablet 40 mg PO DAILY 09/24/24 12/07/24 trazodone 150 mg tablet 300 mg PO HS 09/24/24 12/07/24 bupropion HCl 200 mg tablet,12 hr 400 mg PO DAILY 12/02/24 12/07/24 sustained-release metformin 500 mg tablet 500 mg PO BIDWMEAL 12/02/24 12/07/24 ondansetron 4 mg disintegrating 4 mg PO Q4HP PRN nausea, vomiting 12/02/24 12/07/24 tablet meloxicam 15 mg tablet 15 mg PO DAILYP PRN Moderate Pain 12/03/24 12/07/24 (Scale Score 5-6) torsemide 20 mg tablet 60 mg PO BIDL 12/03/24 12/07/24 albuterol sulfate 90 mcg/actuation 2 puff inhalation Q4HP PRN 12/07/24 12/07/24 aerosol inhaler Shortness Of Breath Previous Rx's ?Medication ?Instructions ?Recorded cholecalciferol (vitamin D3) 1,250 1,250 mcg PO WEEKLY #12 caps 05/26/24 mcg (50,000 unit) capsule spironolactone 25 mg tablet 25 mg PO DAILY #90 tabs 07/06/24 atorvastatin 40 mg tablet 40 mg PO HS #90 tabs 11/01/24 evolocumab 140 mg/mL subcutaneous 140 mg SQ Q2W #2 mL 11/24/24 pen injector (Meli Dowling) cephalexin 500 mg capsule 500 mg PO TID 4 days #12 caps 12/07/24 metoprolol succinate 25 mg 25 mg PO DAILY 30 days #30 tabs 12/07/24 tablet,extended release 24 hr aspirin 81 mg tablet,delayed See Rx Instructions .Route 12/20/24 release .COMPLEX #30 tabs oxybutynin chloride 5 mg tablet See Rx Instructions .Route 12/20/24 .COMPLEX #60 tabs ropinirole 4 mg tablet See Rx Instructions .Route 12/20/24 .COMPLEX #90 tabs semaglutide 0.25 mg or 0.5 mg (2 See Rx Instructions .Route 12/20/24 mg/3 mL) subcutaneous pen injector .COMPLEX #3 mL (Ozempic) metolazone 5 mg tablet 5 mg PO Q12H #180 tabs 12/23/24 spironolactone 100 mg tablet 100 mg PO DAILY #90 tabs 12/23/24 Allergies Allergy/AdvReac Type Severity Reaction Status Date / Time adhesive tape (ADHESIVE TAPE) Allergy Unknown Blister Verified 11/22/24 14:36 hydromorphone (From DILAUDID) Allergy Unknown Hypotension Verified 11/22/24 14:36 nickel (NICKEL) Allergy Unknown Blister Verified 11/22/24 14:36 PFSH [facility] Disclaimer: The information contained in this section may have been updated after the patient was seen, as this information can be updated by other users. Medical History HLD (hyperlipidemia) Obesity Abdominal pain UTI (urinary tract infection) Hospital discharge follow-up Establishing care with new doctor, encounter for Restless leg Glaucoma Arthritis of both knees Urinary incontinence Unspecified asthma, uncomplicated Tear of meniscus of knee Pre-diabetes Diastolic CHF, acute on chronic Pulmonary hypertension Elevated left ventricular end-diastolic pressure (LVEDP) Asthma exacerbation Sleep apnea History of COVID-19 COPD (chronic obstructive pulmonary disease) Asthma Abscess of groin, right Acute exacerbation of chronic obstructive airways disease Left against medical advice Dependent on wheelchair Assistance needed for continence Incisional hernia Lower leg pain Knee pain Vaginal bleeding Perimenopausal Cellulitis Hypothyroidism Dizziness Chest pain Sinusitis Tobacco abuse counseling Tobacco abuse HONEY (obstructive sleep apnea) Ventral hernia Dyspnea Depression Pharyngitis due to Streptococcus species Epigastric pain Gastritis Strep throat HTN (hypertension) Hypothyroidism (acquired) TIA (transient ischemic attack) COPD exacerbation Paresthesias Shortness of breath Acute bronchitis Tobacco abuse COPD (chronic obstructive pulmonary disease) Infiltrate of lung present on chest x-ray Atelectasis of right lung Cough Upper respiratory infection Surgical History History of lateral meniscus repair of right knee H/O tubal ligation Hx of cholecystectomy H/O hernia repair History of colon resection Family History Mother Hypertension Diabetes Father Cancer Social History Smoking Status: Never smoker years smoked: 38 smoking status stop date: 3 months ago quit status: has quit before second hand exposure: Yes alcohol intake: never substance use type: denies use current occupational status: unemployed Travel in the last 8 weeks?: None household members: family and children housing: other lives independently: No marital status: legally number of children: 4 education level: other caffeine: Yes do you feel safe at home: Yes victim of physical abuse: No victim of emotional abuse: No victim of sexual abuse: No Have you lived/traveled outside [place] in past 30 days?: No Contact w/someone who lives/traveled outside US past 30 days?: No Exposure to someone with infectious disease in past 14 days?: No Do you have a fever (greater than 100.4 F or 38 C)?: No Have you tested positive for COVID-19?: No Exposed to someone with COVID-19 in past 14 days?: No Do you have a sore throat?: No Do you have a cough?: No Do you have any weakness?: No Do you have any diarrhea?: No Are you experiencing any unusual bleeding?: No Do you have any muscle aches/pain?: No Do you have any abdominal pain?: No Are you experiencing loss of taste or smell?: No Other Medical History Have you received the Flu Vaccine for this season: No Have you received the Pneumonia Vaccine: No ROS Obtained: Yes All systems reviewed & no additional complaints except as documented Physical Exam General General appearance: alert and in no apparent distress Respiratory Respiratory exam: Present normal lung sounds bilaterally; Absent respiratory distress Cardiovascular Cardiovascular exam: Present regular rate and normal rhythm Neurological Exam Neurological exam: Present alert and oriented X3 Medical Decision Making Medical Records Screening: Per USPSTF and CDC recommendations, given the prevalence of disease in our region, it is our hospital?s policy to screen for HIV and viral Hepatitis for all patients aged 18 and over and those with ongoing risk factors. [place] Inquiry Pt receiving controlled substance: No Vital Signs: 12/24/24 15:54 Temperature 98.4 F Temperature Source Tympanic Pulse Rate [Right] 60 Respiratory Rate 18 Blood Pressure [Right Arm] 123/66 Blood Pressure Mean [Right Arm] 85 02 Sat by Pulse Oximetry 99 Lab Data Lab results reviewed: Yes I reviewed the patient's lab results. Lab Results 12/24/24 15:47: WBC 10.4, RBC 3.39 L, Hgb 8.9 L, Hct 31.3 L, MCV 92.3, MCH 26.3 L, MCHC 28.4 L, RDW 17.4, Plt Count 328, MPV 10.3, Neut % (Auto) 74.2, Lymph % (Auto) 17.8, [place] % (Auto) 5.4, Eos % (Auto) 1.5, Baso % (Auto) 0.4, Neut # (Auto) 7.7, Lymph # (Auto) 1.8, [place] # (Auto) 0.6, Eos # (Auto) 0.2, Baso # (Auto) 0.0, Sodium 133 L, Potassium 4.8, Chloride 93 L, Carbon Dioxide 40 H, Anion Gap 4.8 L, BUN 12, Creatinine 0.90 D, Estimated Creat Clear 58, Estimated GFR 65, Est GFR ( Amer) 78 D, Glucose 142 H, Calcium 8.4, Total Bilirubin 0.4, AST 24, ALT 17, Alkaline Phosphatase 104, Troponin I < 0.01, NT-Pro-B Natriuret Pep 2430 H, Total Protein 6.4, Albumin 3.2 L, Globulin 3.2, Albumin/Globulin Ratio 1.0 L 12/24/24 15:47 12/24/24 15:47 Orders (Tests/Meds): ORDERS Category Date Time Status CXR --portable [XR chest portable] Stat Exams 12/24/24 15:56 Ordered BNP [NT Pro Brain Natriuretic Pep.] Stat Lab 12/24/24 15:47 Completed CBC w/Auto Diff [Complete Blood Count Auto Diff] Stat Lab 12/24/24 15:47 Completed CMP [Comprehensive Metabolic Panel] Stat Lab 12/24/24 15:47 Completed Trop I [Troponin I] Stat Lab 12/24/24 15:47 Completed Troponin I Q3H Lab 12/24/24 19:00 Ordered Troponin I Q3H Lab 12/24/24 22:00 Ordered Medical Decision Narrative: Morbidly obese 54-year-old with above history and physical presents today with chronic dyspnea associated with multifactorial conditions such as heart failure with preserved ejection fraction and pulmonary edema as well as obesity hypoventilation. She seems to be very clearly unable to care for herself at home and she has been in the emergency department frequently and in the hospital frequently with medication changes IV diuresis etc. Home health physical therapy and Occupational Therapy are not keeping her out of the hospital at this point. I had a discussion with her regarding placement. At the moment she does not want to consider that. Will get a basic workup and reassess. Chest x-ray is performed I personally interpreted which shows poor inspiration and diffuse vascular congestion but no focal consolidation. Reassessment BNP is 2430 this is chronically elevated labs otherwise unremarkable from emergency standpoint. Patient is 10 kg up from when she was recently discharged from the hospital. She is volume overloaded clinically. She has been bounced back to the emergency department and her home diuretics are not working. Long-term this patient needs to lose weight. She has not been evaluated by bariatric surgeon. She has been on a GLP-1 agonist and this has not been improving her symptoms over 6 months. It seems as if her medication interventions are not working. She is high risk from a surgical standpoint but I did recommend to the patient that she follow-up with apractic surgeon at least to have a conversation. In the meantime we will admit the patient for IV diuresis. I discussed the case with Dr. Gabriela webster who agrees to admit the patient for further management. Critical Care Critical Care Time Critical Care Time: Yes Attestation: On 12/24/24, the high probability of a clinically significant, sudden or life threatening deterioration of the following system(s) required my full and direct attention, intervention and personal management. The time I documented below is in addition to time spent performing reported procedures but includes the following listed in this critical care notation. Total Time Total Critical Care Time: 35
[2024-12-24 16:02] LABS: Basophils % 0.4 % (0.1-2.0); Eosinophils # 0.2 Kmm3 (0.0-0.4); Eosinophils % 1.5 % (0.1-12.0); Hematocrit 31.3 % (37.0-47.0); Hemoglobin 8.9 g/dL (12.2-16.2); Immature Granulocytes # 0.07 10^3uL; Immature Granulocytes % 0.7 %; Lymphocytes # 1.8 K/mm3 (0.7-4.5); Lymphocytes % 17.8 % (10-50); Mean Corpuscular HGB Conc 28.4 g/dL (31.8-35.4); Mean Corpuscular Hemoglobin 26.3 pg (27.0-31.2); Mean Corpuscular Volume 92.3 fl (81-99); Mean Platelet Volume 10.3 fl (7.4-10.4); Monocytes # 0.6 K/mm3 (0.1-1.0); Monocytes % 5.4 % (1.7-9.3); Neutrophils # 7.7 K/mm3 (1.8-7.8); Neutrophils % 74.2 % (37.0-80.0); Nucleated Red Blood Cells # 0.02 10^3/uL; Nucleated Red Blood Cells % 0.2 %; Platelet Count 328 K/mm3 (142-424); Red Blood Count 3.39 M/mm3 (4.20-5.40); Red Cell Distribution Width 17.4 % (11.5-17.5); Red Cell Distribution Width-SD 58.6 fL; White Blood Count 10.4 K/mm3 (4.8-10.8)
--- NOTE | 2024-12-24 16:08 | ECG_ITS ---
APPROVED REPORT Exam: Resting ECG HR:67 bpm ECG Measurements Heart Rate 67 AXES KS 239 P 25 QRSd 104 QRS 92 QT 420 T -21 QTc 436 Conclusion ELECTRONIC ATRIAL PACEMAKER BORDERLINE RIGHT AXIS DEVIATION [QRS AXIS > 90] LOW QRS VOLTAGE IN PRECORDIAL LEADS [QRS DEFLECTION < 1.0 mV IN CHEST LEADS] SEPTAL MYOCARDIAL INFARCTION , OF INDETERMINATE AGE [40+ ms Q WAVE IN V1/V2] MARKED ST ELEVATION, CONSIDER ANTERIOR INJURY [MARKED ST ELEVATION W/O NORMALLY INFLECTED T-WAVE IN V2-V5] ACUTE NE UNCONFIRMED REPORT Electronically signed by : Hernan Martinez, 12/24/2024 23:21:40
[2024-12-24 16:15] LABS: Alanine Aminotransferase 17 U/L (12-78); Albumin Level 3.2 g/dl (3.5-5.0); Alkaline Phosphatase 104 U/L (38-126); Aspartate Amino Transferase 24 U/L (14-36); Bilirubin,Total 0.4 mg/dl (0.2-1.3); Blood Urea Nitrogen 12 mg/dl (7-17); Calcium 8.4 mg/dl (8.4-10.2); Chloride 93 mmol/L (98-107); Creatinine Clearance Estimated 58 mL/min (50-200); Estimated Glomerular Filt Rate 65 ml/min (>60); GFR (African American) 78 ML/MIN (>60); Globulin 3.2 g/dL (1.3-3.2); Glucose 142 mg/dl (74-100); Potassium 4.8 mmoL/L (3.5-5.1); Sodium 133 mmol/L (136-145); Total Protein,Serum 6.4 g/dl (6.3-8.2)
[2024-12-24 16:22] LABS: Anion Gap 4.8 mEq/L (5-15); Carbon Dioxide 40 mmol/L (22.0-30.0)
[2024-12-24 16:27] LABS: NT Pro Brain Natriuretic Pep. 2430 pg/mL (0-125)
[2024-12-24 16:28] LABS: Troponin I < 0.01 ng/ml (0.00-0.034)
--- OUTSIDE RECORDS SUMMARY | 2024-12-24 16:45 | XMS_ITS | CCD ---
Author Organization Unknown Care Team Providers Care Breakfast Supervisor Name Role Phone Unavailable Primary Care Provider Unavailabl e Unavailable Chronic Care Management Unavaila ble Summary Purpose DataExchange Insurance Providers Payer name Policy type / Coverage type Covered green party ID Effective Begin Date Effective End Date [facility] [id number] Unknown Unknown Family History Family History data not found Medication Administered No Medication Administered data Reason For Visit No Reason For Visit data Medical Equipment No Medical Equipment data Advance Directives No Advance Directive data
--- OUTSIDE RECORDS SUMMARY | 2024-12-24 16:45 | XMS_ITS | CCD ---
Author Organization Unknown Care Team Providers Care Remote Coders Name Role Phone Unavailable Primary Care Provider Unavailabl e Unavailable Chronic Care Management Unavaila ble Summary Purpose DataExchange Insurance Providers Payer name Policy type / Coverage type Covered constitution party ID Effective Begin Date Effective End Date [facility] [id number] Unknown Unknown Family History Family History data not found Medication Administered No Medication Administered data Reason For Visit No Reason For Visit data Medical Equipment No Medical Equipment data Advance Directives No Advance Directive data
--- NOTE | 2024-12-24 17:42 | PC.NURSE ---
HS aware of pts admission to the hospitalist.
--- NOTE | 2024-12-24 17:58 | PC.NURSE ---
Report given to LOS [facility] on [facility] floor. Pending Transfer.
--- NOTE | 2024-12-24 18:26 | PC.NURSE ---
arrived by bed from ED
--- NOTE | 2024-12-24 19:07 | P.HP_ITS ---
History of Present Illness *Admission Date: 12/24/24 *Reason for visit:: Shortness of breath *History of present illness: Stacey George is a 54 year old female who presents to our ED again to shortness of breath and volume overload. Unfortunately patient has presented to our ED multiple times in the past week for similar presentation, yesterday having increased in diuretics by cardiology but continues to have volume overload and SOB. On my evaluation of patient, she had diffuse anasarca. BNP 2430. Case discussed with ED provider and decision was made to admit patient for HFpEF exacerbation. [facility] Disclaimer: The information contained in this section may have been updated after the patient was seen, as this information can be updated by other users. Medical History Morbid obesity with body mass index (BMI) greater than or equal to 70 in adult Postmenopausal bleeding HLD (hyperlipidemia) Obesity Abdominal pain UTI (urinary tract infection) Hospital discharge follow-up Establishing care with new doctor, encounter for Restless leg Glaucoma Arthritis of both knees Urinary incontinence Unspecified asthma, uncomplicated Tear of meniscus of knee Pre-diabetes Diastolic CHF, acute on chronic Pulmonary hypertension Elevated left ventricular end-diastolic pressure (LVEDP) Asthma exacerbation Sleep apnea History of COVID-19 COPD (chronic obstructive pulmonary disease) Asthma Abscess of groin, right Acute exacerbation of chronic obstructive airways disease Left against medical advice Dependent on wheelchair Assistance needed for continence Incisional hernia Lower leg pain Knee pain Vaginal bleeding Perimenopausal Cellulitis Hypothyroidism Dizziness Chest pain Sinusitis Tobacco abuse counseling Tobacco abuse HONEY (obstructive sleep apnea) Ventral hernia Dyspnea Depression Pharyngitis due to Streptococcus species Epigastric pain Gastritis Strep throat HTN (hypertension) Hypothyroidism (acquired) TIA (transient ischemic attack) COPD exacerbation Paresthesias Shortness of breath Acute bronchitis Tobacco abuse COPD (chronic obstructive pulmonary disease) Infiltrate of lung present on chest x-ray Atelectasis of right lung Cough Upper respiratory infection Surgical History History of lateral meniscus repair of right knee H/O tubal ligation Hx of cholecystectomy H/O hernia repair History of colon resection Family History Mother Hypertension Diabetes Father Cancer Social History Smoking Status: Never smoker years smoked: 38 smoking status stop date: 3 months ago quit status: has quit before second hand exposure: Yes alcohol intake: never substance use type: denies use current occupational status: unemployed Travel in the last 8 weeks?: None household members: family and children housing: other lives independently: No marital status: legally number of children: 4 education level: other caffeine: Yes do you feel safe at home: Yes victim of physical abuse: No victim of emotional abuse: No victim of sexual abuse: No Other Medical History Have you received the Flu Vaccine for this season: No Have you received the Pneumonia Vaccine: No Meds Home Medications and Allergies Home Medications ?Medication ?Instructions ?Recorded ?Confirmed ?Type calcium carbonate (Calcium 600) 600 mg PO DAILY 12/25/24 History cholecalciferol (vitamin D3) 1,250 1,250 mcg PO WEEKLY #12 caps 05/26/24 12/25/24 Rx mcg (50,000 unit) capsule fluticasone fur. 100 mcg-umeclid 1 inh inhalation LEONARDO Y 09/24/24 12/25/24 History 62.5 mcg-vilant 25 mcg inhalat.powder (Trelegy Ellipta) ipratropium 0.5 mg-albuterol 3 mg 3 ml inhalation QIDP PRN shortness 09/24/24 12/25/24 History (2.5 mg base)/3 mL nebulization of breath or wheezing soln lisinopril 40 mg tablet 40 mg PO DAILY 09/24/24/03/13 History atorvastatin 40 mg tablet 40 mg PO HS #90 tabs 5 12/25/24 Rx evolocumab 140 mg/mL subcutaneous 140 mg SQ Q2W #2 mL 11/24/24 12/25/24 Rx pen injector (Repatheduarda Dowling) bupropion HCl 200 mg tablet,12 hr 400 mg PO DAILY 11/1712/25/24 History sustained-release metformin 500 mg tablet 500 mg PO BIDWMEAL 12/02/24 12/25/24 History ondansetron 4 mg disintegrating 4 mg PO Q8HP PRN nause a, vomiting 12/02/24 12/25/24 History tablet meloxicam 15 mg tablet 15 mg PO DAILYP PRN Moderate Pain 12/03/24 12/25/24 History (Scale Score 5-6) torsemide 20 mg tablet 60 mg PO BIDL 12/03/2412/25 History albuterol sulfate 90 mcg/actuation 2 puff inhalation Q 4HP PRN 12/07/24 12/25/24 History aerosol inhaler Shortness Of Breath metoprolol succinate 25 mg 25 mg PO DAILY 30 days #30 tabs 12/07/24 12/25/24 Rx tablet,extended release 24 hr metolazone 5 mg tablet 5 mg PO Q12H #180 tabs 12/2312/25/24 Rx spironolactone 100 mg tablet 100 mg PO DAILY #90 tabs 12/23/24 12/25/24 Rx aspirin 81 mg tablet,delayed 81 mg PO DAILY 12/25/24 0 12/25/24 History release oxybutynin chloride 5 mg tablet 5 mg PO BID 12/25/24 0 12/25/24 History ropinirole 4 mg tablet 4 mg PO DAILY 12/25/2412/25 History semaglutide 0.25 mg or 0.5 mg (2 0.5 mg SQ WEEKLY 03/1312/25/24 History mg/3 mL) subcutaneous pen injector (Ozempic) levothyroxine 150 mcg tablet See Rx Instructions .Rout e 12/27/24 Rx .COMPLEX #180 tabs trazodone 150 mg tablet See Rx Instructions .Route 0 12/27/24 Rx .COMPLEX #60 tabs cyanocobalamin (vitamin B-12) See Rx Instructions .Rou te 12/28/24 Rx 1,000 mcg tablet .COMPLEX #30 tabs New Prescriptions to Start Prescriptions: Allergies Allergy/AdvReac Type Severity Reaction Status Date / Time adhesive tape (ADHESIVE TAPE) Allergy Unknown Blister Verified 11/22/24 14:36 hydromorphone (From DILAUDID) Allergy Unknown Hypotension Verified 11/22/24 14:36 nickel (NICKEL) Allergy Unknown Blister Verified 11/22/24 14:36 Exam Data for Last 24 hours Vital signs and Labs for Last 24 Hours: Temp Pulse Resp BP Pulse Ox O2 Del Method O2 Flow Rate 98.0 F 90 15 97/52 L 99 Nasal Cannula 2 12/24/24 18:33 12/24/24 18:33 12/24/24 18:33 12/24/24 18:33 12/24/24 18:33 12/24/24 18:55 12/24/24 18:55 Laboratory Results - last 24 hr 12/24/24 15:47: WBC 10.4, RBC 3.39 L, Hgb 8.9 L, Hct 31.3 L, MCV 92.3, MCH 26.3 L, MCHC 28.4 L, RDW 17.4, Plt Count 328, MPV 10.3, Neut % (Auto) 74.2, Lymph % (Auto) 17.8, [place] % (Auto) 5.4, Eos % (Auto) 1.5, Baso % (Auto) 0.4, Neut # (Auto) 7.7, Lymph # (Auto) 1.8, [place] # (Auto) 0.6, Eos # (Auto) 0.2, Baso # (Auto) 0.0, Sodium 133 L, Potassium 4.8, Chloride 93 L, Carbon Dioxide 40 H, Anion Gap 4.8 L, BUN 12, Creatinine 0.90 D, Estimated Creat Clear 58, Estimated GFR 65, Est GFR ( Amer) 78 D, Glucose 142 H, Calcium 8.4, Total Bilirubin 0.4, AST 24, ALT 17, Alkaline Phosphatase 104, Troponin I < 0.01, NT-P ro-B Natriuret Pep 2430 H, Total Protein 6.4, Albumin 3.2 L, Globulin 3.2, Albumin/Globulin Ratio 1.0 L I & O for Last 24 hours: Intake & Output 12/21/24 12/22/24 12/23/24 12/24/24 23:59 23:59 23:59 23:59 Weight 207.428 kg Constitutional Constitutional: no acute distress and morbidly obese *Routine HEENT Exam Head: Present normocephalic Eye: Present EOMI and PERRL ENT: Present mucous membranes moist *Routine Neck Exam Neck: Present supple; Absent lymphadenopathy *Routine Respiratory Exam Respiratory: Present CTA bilaterally *Routine Cardiovascular Exam Cardiovascular: Present RRR *Routine Abdominal Exam Abdominal: Present soft and normoactive bowel sounds; Absent tenderness *Routine Rectal Exam Rectal:: deferred *Routine Genitalia Exam Genitalia:: deferred *Routine Extremities Exam Extremities: Absent cyanosis, clubbing or edema *Routine Skin Exam Skin: Present warm; Absent rash *Routine Neurological Exam Neurological: Present alert and oriented X3 Assessment and Plan *Assessment and plan (1) (HFpEF) heart failure with preserved ejection fraction: Status: Acute Qualifiers: Heart failure chronicity: unspecified Qualified Code(s): I50.30 - Unspecified diastolic (congestive) heart failure Category: Medical Code(s): I50.30 - Unspecified diastolic (congestive) heart failure Plan Stacey George is a 54 year old female who presents to our ED again to shortness of breath and volume overload. Unfortunately patient has presented to our ED multiple times in the past week for similar presentation, yesterday having incr eased in diuretics by cardiology but continues to have volume overload and SOB. On my evaluation of patient, she had diffuse anasarca. BNP 2430. Case discussed with ED provider and decision was made to admit patient for HFpEF exacerbation. #HFpEF exacerbation #Anasarca - Presented with progressive SOB, BNP 2340, with anasarca. - Started IV Bumex 2mg BID, spinolactone 25mg. ?Limited ECHO in November 2024 shows LVEF 50%. ? Cardiology consulted, pending further recommendations. #Morbid obesity - Patient tearful, feels depressed about her weight and lifestyle. Has previously been through bariatric surgery prep program only to be told she's not a cadidate. - Has also been on Ozempic without much weight loss, states she doesn't eat much but does drink water quite a bit. - Hope to refer patient to another bariatric surgeon to which patient is very amenable. #Physical deconditioning ? PT/OT consulted, pending recommendations. #Mobitz type II heart block ? S/p pacemaker placement. Vital signs stable. #Obesity ? Complicating all aspects of care. #Anxiety/depression ? Continue Wellbutrin 200 mg daily. Full code DVT prophylaxis: Lovenox 60 mg twice daily
[2024-12-24] MEDS: BUMETANIDE 1MG/4ML VIAL 2 MG IV (20:50)
[2024-12-24] MEDS: humaLOG 100 UNITS/ML 10ML VIAL (SSI) SUBCUT (21:00)
[2024-12-24] MEDS: ENOXAPARIN 60MG/0.6ML SYRINGE 60 MG SUBCUT (21:57)
[2024-12-24] MEDS: metOLazone 2.5MG TABLET 5 MG PO (21:57)
[2024-12-24 22:08] LABS: POC Glucose,Bedside 159 (70-110)
[2024-12-25] VITALS: BP 82/37; PULSE 60; RESP 16; TEMP 36.4; O2SAT 95
[2024-12-25 04:00] VITALS: BP 93/51; PULSE 63; RESP 16; TEMP 36.7; O2SAT 93; BMI 79.6
[2024-12-25 05:25] LABS: POC Glucose,Bedside 111 (70-110)
--- NOTE | 2024-12-25 05:29 | PC.NURSE ---
pt's med rec not reconciled. pt stated she didn't bring her list with her but that we should know her meds by now, she's here often .
--- NOTE | 2024-12-25 05:32 | PC.NURSE ---
pt had bed request at 4410-12/24/2024. Pt's admission and med rec had not been completed as a new admission upon shift. Pt stated she couldn't recall all her meds. v/s, ox4. Blood glucose monitored. Pt on 2LNC satting in 90's. No acute events to report. Plan of care ongoing.
[2024-12-25] MEDS: METFORMIN 500MG TABLET 500 MG PO ×2 (06:50→17:59)
[2024-12-25 07:18] LABS: Basophils # 0.1 K/mm3 (0-0.2); Basophils % 0.7 % (0.1-2.0); Eosinophils # 0.2 Kmm3 (0.0-0.4); Eosinophils % 1.6 % (0.1-12.0); Hemoglobin 9.2 g/dL (12.2-16.2); Immature Granulocytes # 0.04 10^3uL; Immature Granulocytes % 0.4 %; Lymphocytes # 2.2 K/mm3 (0.7-4.5); Lymphocytes % 23.7 % (10-50); Mean Corpuscular HGB Conc 28.8 g/dL (31.8-35.4); Mean Corpuscular Hemoglobin 26.4 pg (27.0-31.2); Mean Platelet Volume 10.4 fl (7.4-10.4); Monocytes # 0.4 K/mm3 (0.1-1.0); Monocytes % 4.8 % (1.7-9.3); Neutrophils # 6.3 K/mm3 (1.8-7.8); Neutrophils % 68.8 % (37.0-80.0); Nucleated Red Blood Cells # 0.03 10^3/uL; Nucleated Red Blood Cells % 0.3 %; Platelet Count 369 K/mm3 (142-424); Red Blood Count 3.48 M/mm3 (4.20-5.40); Red Cell Distribution Width 17.2 % (11.5-17.5); Red Cell Distribution Width-SD 58.1 fL; White Blood Count 9.2 K/mm3 (4.8-10.8)
[2024-12-25 07:33] LABS: Albumin Level 3.5 g/dl (3.5-5.0); Chloride 93 mmol/L (98-107); Sodium 132 mmol/L (136-145)
[2024-12-25 07:34] LABS: Potassium 4.7 mmoL/L (3.5-5.1)
[2024-12-25 07:36] LABS: Alanine Aminotransferase 15 U/L (12-78); Albumin/Globulin Ratio 1.1 (1.1-1.8); Alkaline Phosphatase 118 U/L (38-126); Anion Gap 4.7 mEq/L (5-15); Aspartate Amino Transferase 22 U/L (14-36); Bilirubin,Total 0.2 mg/dl (0.2-1.3); Blood Urea Nitrogen 14 mg/dl (7-17); Carbon Dioxide 39 mmol/L (22.0-30.0); Creatinine Clearance Estimated 41 mL/min (50-200); Estimated Glomerular Filt Rate 46 ml/min (>60); GFR (African American) 56 ML/MIN (>60); Globulin 3.2 g/dL (1.3-3.2); Total Protein,Serum 6.7 g/dl (6.3-8.2)
[2024-12-25 07:37] LABS: Calcium 8.4 mg/dl (8.4-10.2); Glucose 107 mg/dl (74-100)
[2024-12-25] MEDS: LEVOTHYROXINE 150MCG (0.15MG)TAB 300 MCG PO (07:59)
[2024-12-25] MEDS: FLUTICASONE/UMECLIDIN/VILANTER 100/62.5/25MCG INHALER 1 PUFF IH (09:59)
[2024-12-25] MEDS: ENOXAPARIN 60MG/0.6ML SYRINGE 60 MG SUBCUT ×2 (09:59→20:32)
[2024-12-25] MEDS: METOPROLOL SUCCINATE XL 25MG TABLET 25 MG PO (09:59)
[2024-12-25] MEDS: BUMETANIDE 1MG/4ML VIAL 2 MG IV ×2 (09:59→16:59)
[2024-12-25] MEDS: metOLazone 2.5MG TABLET 5 MG PO ×2 (09:59→16:59)
[2024-12-25 10:18] VITALS: BP 96/56; PULSE 86; RESP 24; TEMP 37.1; O2SAT 90
[2024-12-25 12:00] VITALS: BP 100/38; PULSE 62; RESP 20; TEMP 36.4; O2SAT 94
--- NOTE | 2024-12-25 12:53 | HMH.PHAINT1 ---
Pharmacy Intervention Comments: MEDICATION RECONCILIATION COMPLETE USING LIST FROM RECENT HOSPITAL DISCHARGE, RECENT ED VISITS, AND EXTERNAL PHARMACY FILL HISTORY.
[2024-12-25 16:00] VITALS: BP 73/43; PULSE 60; RESP 18; TEMP 36.8; O2SAT 96
[2024-12-25 17:29] LABS: POC Glucose,Bedside 150 (70-110)
--- NOTE | 2024-12-25 19:22 | PC.NURSE ---
THIS NURSE INSERTED F/C THIS SHIFT, D/T PURE WICK USE BEING ATTEMPTED MULTIPLE TIMES AND WAS NOT CATCHING URINE EFFECTIVELY. DISCUSSED SITUATION WITH HOSPITALIST FIDELINA, AND RISK OF MORE SKIN BREAKDOWN, STATED WE COULD PLACE A F/C. F/C PLACED AND PT TOLERATED WELL. U/A COLLECTED AND SENT TO LAB. URINE CLEAR AND LIGHT YELLOW IN COLOR. ALSO WHILE IN ROOM, NON-ADHERANT PADS AND TEGADERM PLACED UNDER ABD HERNIA, WHERE MULTIPLE OPEN AREAS WERE FORMING. PT ALSO TOLERATED THIS WELL. THIS NURSE ALSO ASSESSED SOME MODERATE BLEEDING NOTED ON PATIENT COMING FROM VAGINA. LARGE BLOOD CLOT ALSO EXPELLED. UPDATED FIDELINA ON THIS FINDING WELL. PATIENT STATES SHE BLEEDS ON AND OFF EVERY FEW MONTHS OR SO, THE LAST BEING 5 MONTHS AGO. PLACED GYNECOLOGY CONSULT AT THIS TIME.
[2024-12-25 20:00] VITALS: BP 103/57; PULSE 61; RESP 18; TEMP 36.6; O2SAT 95
[2024-12-25] MEDS: ROPINIROLE 1MG TABLET 4 MG PO (20:31)
[2024-12-25 22:21] LABS: POC Glucose,Bedside 141 (70-110)
--- NOTE | 2024-12-25 22:26 | EXP.PN ---
Subjective *Date: 12/25/24 *Time: 22:28 Interval history: Patient feeling better today, breathing better. Feels less volume overloaded. Pending placement. Exam Data for Last 24 hours Vital signs and Labs for Last 24 Hours: Temp Pulse Resp BP Pulse Ox O2 Del Method O2 Flow Rate 97.8 F 61 18 103/57 L 95 Nasal Cannula 2 12/25/24 20:00 12/25/24 20:00 12/25/24 20:00 12/25/24 20:00 12/25/24 20:00 12/25/24 20:08 12/25/24 20:08 Laboratory Results - last 24 hr 12/25/24 05:13: POC Glucose 111 H 12/25/24 06:35: WBC 9.2, RBC 3.48 L, Hgb 9.2 L, Hct 32.0 L, MCV 92.0, MCH 26.4 L, MCHC 28.8 L, RDW 17.2, Plt Count 369, MPV 10.4, Neut % (Auto) 68.8, Lymph % (Auto) 23.7, [place] % (Auto) 4.8, Eos % (Auto) 1.6, Baso % (Auto) 0.7, Neut # (Auto) 6.3, Lymph # (Auto) 2.2, [place] # (Auto) 0.4, Eos # (Auto) 0.2, Baso # (Auto) 0.1, Sodium 132 L, Potassium 4.7, Chloride 93 L, Carbon Dioxide 39 H, Anion Gap 4.7 L, BUN 14, Creatinine 1.20 H D, Estimated Creat Clear 41, Estimated GFR 46 L, Est GFR ( Amer) 56 L D, Glucose 107 H D, Calcium 8.4, Magnesium 2.0, Total Bilirubin 0.2, AST 22, ALT 15, Alkaline Phosphatase 118, Total Protein 6.7, Albumin 3.5, Globulin 3.2, Albumin/Globulin Ratio 1.1 12/25/24 17:17: POC Glucose 150 H 12/25/24 20:34: POC Glucose 141 H I & O for Last 24 hours: Intake & Output 12/22/24 12/23/24 12/24/24 12/25/24 23:59 23:59 23:59 23:59 Intake Total 1180 / 1180 Output Total 350 / 350 4925 / 4925 Balance -350 / -110 -3745 / -3745 Weight 207.428 kg 203.799 kg Constitutional Constitutional: no acute distress and obese *Routine HEENT Exam Head: Present normocephalic Eye: Present EOMI and PERRL ENT: Present mucous membranes moist *Routine Neck Exam Neck: Present supple; Absent lymphadenopathy *Routine Respiratory Exam Respiratory: Present CTA bilaterally *Routine Cardiovascular Exam Cardiovascular: Present RRR *Routine Abdominal Exam Abdominal: Present soft and normoactive bowel sounds; Absent tenderness *Routine Extremities Exam Extremities: Present edema; Absent cyanosis or clubbing *Routine Skin Exam Skin: Present warm; Absent rash *Routine Neurological Exam Neurological: Present alert and oriented X3 Assessment and Plan *Assessment and plan (1) Volume overload: Status: Acute Category: Medical Code(s): E87.70 - Fluid overload, unspecified Plan Stacey George is a 54 year old female who presents to our ED again to shortness of breath and volume overload. Unfortunately patient has presented to our ED multiple times in the past week for similar presentation, yesterday having increased in diuretics by cardiology but continues to have volume overload and SOB. On my evaluation of patient, she had diffuse anasarca. BNP 2430. Case discussed with ED provider and decision was made to admit patient for HFpEF exacerbation. #HFpEF exacerbation #Anasarca - Presented with progressive SOB, BNP 2340, with anasarca. - Started IV Bumex 2mg BID, metolazone 5 mg twice daily, spinolactone 25mg. Diuresing well. ?Limited ECHO in November 2024 shows LVEF 50%. ? Cardiology consulted, pending further recommendations. #Morbid obesity - Patient tearful, feels depressed about her weight and lifestyle. Has previously been through bariatric surgery prep program only to be told she's not a cadidate. - Has also been on Ozempic without much weight loss, states she doesn't eat much but does drink water quite a bit. - Hope to refer patient to another bariatric surgeon to which patient is very amenable. #Physical deconditioning ? PT/OT consulted, pending recommendations. #Mobitz type II heart block ? S/p pacemaker placement. Vital signs stable. #Obesity ? Complicating all aspects of care. #Anxiety/depression ? Continue Wellbutrin 20 mg daily. Full code DVT prophylaxis: Lovenox 60 mg twice daily
[2024-12-26] VITALS (7 sets, daily range): BP systolic 87–124; BP diastolic 51–83; PULSE 58–66; RESP 14–17; TEMP 36.6–36.9; O2SAT 92–96; BMI 82.3
[2024-12-26 02:07] LABS: Microscopic, Urine URINE MICROSCOPIC (MICROSCOPIC)
[2024-12-26 02:28] LABS: Appearance,Urine CLEAR (Clear); Bilirubin,Urine Negative (Negative); Blood, Urine TRACE-I (Negative); Color,Urine YELLOW (Yellow); Glucose,Urine (UA) Negative (Negative); Ketones,Urine Negative (Negative); Leukocyte Esterase,Urine Negative (Negative); Nitrate,Urine Negative (Negative); Protein,Urine Negative (Negative); Urobilinogen,Urine 0.2 EU/dl (0.2)
[2024-12-26 03:04] LABS: Squamous Epithelial Cell,Urine Occasional #/hpf (0-5); WBC,Urine Occasional #/hpf (0-3)
--- NOTE | 2024-12-26 04:31 | PC.NURSE ---
Pt ox4, v/s, 2-3LNC. Family at bedside. Pt desats when sleeping, o2 bumped to 3L satting in 90's. Blood glucose monitored. No acute events to report. Plan of care ongoing.
[2024-12-26 05:51] LABS: POC Glucose,Bedside 101 (70-110)
[2024-12-26] MEDS: FLUTICASONE/UMECLIDIN/VILANTER 100/62.5/25MCG INHALER 1 PUFF IH (06:38)
[2024-12-26] MEDS: LEVOTHYROXINE 150MCG (0.15MG)TAB 300 MCG PO (06:43)
[2024-12-26] MEDS: METFORMIN 500MG TABLET 500 MG PO ×2 (06:43→17:12)
[2024-12-26] MEDS: ASPIRIN EC 81MG TABLET 81 MG PO (08:26)
[2024-12-26] MEDS: buPROPion HCL 100 MG TABLET 200 MG PO (08:26)
[2024-12-26] MEDS: METOPROLOL SUCCINATE XL 25MG TABLET 25 MG PO (08:27)
[2024-12-26] MEDS: BUMETANIDE 1MG/4ML VIAL 2 MG IV ×2 (08:27→17:11)
[2024-12-26] MEDS: metOLazone 2.5MG TABLET 5 MG PO ×2 (08:27→17:11)
[2024-12-26] MEDS: ENOXAPARIN 60MG/0.6ML SYRINGE 60 MG SUBCUT ×2 (08:27→20:05)
--- NOTE | 2024-12-26 09:21 | US_ITS ---
PROCEDURE INFORMATION: Exam: US Pelvis, Transvaginal, Non-Obstetric Exam date and time: 12/26/2024 9:59 AM Age: 54 years old Clinical indication: Other: Vaginal bleeding TECHNIQUE: Imaging protocol: Real-time transvaginal pelvic (non-obstetric) ultrasound with image documentation. Transvaginal imaging was used for better evaluation of the endometrium, adnexa, and/or cervix. COMPARISON: CT ABDOMEN PELVIS W CON 09/17/2024 7:41 PM FINDINGS: Uterus: The uterus measures roughly 10.8 x 6.8 x 7.8 cm. Markedly limited visualization of the uterus due to poor sonographic window. Measurement of the endometrial thickness is unreliable. Right ovary/adnexa: The right ovary was not seen. Left ovary/adnexa: The left ovary was not seen. Urinary bladder: Not imaged. Intraperitoneal space: No free fluid in the pelvis. IMPRESSION: Markedly limited visualization of the uterus due to poor sonographic window. Measurement of the endometrial thickness is unreliable. Recommend MRI if clinical concern persists.
--- NOTE | 2024-12-26 09:30 | SW/DCPLANNER ---
Addendum entered by Juanita Birch 12/26/24 12:39: Patient is agreeable to [facility]. Addendum entered by Juanita [place] 12/26/24 12:00: [facility] in [place] is willing to accept this patient and started precert today. Original Note: Patient inquired about rehab placement. We discussed different options and she requested to go to [place] or either of the facilities in [place].
[2024-12-26 09:33] LABS: Alanine Aminotransferase 14 U/L (12-78); Albumin Level 2.8 g/dl (3.5-5.0); Albumin/Globulin Ratio 1.1 (1.1-1.8); Alkaline Phosphatase 94 U/L (38-126); Anion Gap 7.3 mEq/L (5-15); Aspartate Amino Transferase 20 U/L (14-36); Bilirubin,Total 0.4 mg/dl (0.2-1.3); Blood Urea Nitrogen 18 mg/dl (7-17); Calcium 8.3 mg/dl (8.4-10.2); Carbon Dioxide 40 mmol/L (22.0-30.0); Chloride 90 mmol/L (98-107); Creatinine Clearance Estimated 45 mL/min (50-200); Estimated Glomerular Filt Rate 51 ml/min (>60); GFR (African American) 62 ML/MIN (>60); Globulin 2.6 g/dL (1.3-3.2); Glucose 139 mg/dl (74-100); Magnesium 1.7 mg/dl (1.6-2.3); Potassium 4.3 mmoL/L (3.5-5.1); Sodium 133 mmol/L (136-145); Total Protein,Serum 5.4 g/dl (6.3-8.2)
[2024-12-26 10:17] LABS: Basophils % 0.5 % (0.1-2.0); Eosinophils # 0.2 Kmm3 (0.0-0.4); Eosinophils % 2.7 % (0.1-12.0); Hematocrit 30.1 % (37.0-47.0); Hemoglobin 8.5 g/dL (12.2-16.2); Immature Granulocytes # 0.09 10^3uL; Immature Granulocytes % 1.1 %; Lymphocytes % 24.1 % (10-50); Mean Corpuscular HGB Conc 28.2 g/dL (31.8-35.4); Mean Corpuscular Hemoglobin 26.1 pg (27.0-31.2); Mean Corpuscular Volume 92.3 fl (81-99); Mean Platelet Volume 10.5 fl (7.4-10.4); Monocytes # 0.4 K/mm3 (0.1-1.0); Monocytes % 4.6 % (1.7-9.3); Neutrophils # 5.5 K/mm3 (1.8-7.8); Nucleated Red Blood Cells # 0.02 10^3/uL; Nucleated Red Blood Cells % 0.2 %; Platelet Count 348 K/mm3 (142-424); Red Blood Count 3.26 M/mm3 (4.20-5.40); Red Cell Distribution Width 17.2 % (11.5-17.5); Red Cell Distribution Width-SD 57.5 fL; White Blood Count 8.3 K/mm3 (4.8-10.8)
--- NOTE | 2024-12-26 10:29 | HMH.PTEV ---
Physical Therapy Evaluation Rehab PT IP Evaluation Start: 12/24/24 18:45 Freq: .once Status: Active Protocol: Document 12/26/24 10:23 DENISE (Rec: 12/26/24 10:29 DENISE [id number]) Subjective/History History History Per H&P: Stacey George is a 54 year old female who presents to our ED again to shortness of breath and volume overload. Unfortunately patient has presented to our ED multiple times in the past week for similar presentation, yesterday having increased in diuretics by cardiology but continues to have volume overload and SOB. On my evaluation of patient, she had diffuse anasarca. BNP 2430. Case discussed with ED provider and decision was made to admit patient for HFpEF exacerbation. Subjective Subjective Pt reports she usually requires assistance with her bed mobility, dressing, and bathing. Pt lives with her son who assists as needed. Pt usually requires some assistance with transfers using a RW and w/c. Pt primarily uses a w/c for mobility. Pt owns RW, w/c, ramp, and lift chair. New diagnosis of No cancer in past 12 months? [facility] How much help from another person do you currently need... Turning from your A little back to your side while in a flat bed without using bedrails? Moving from lying on A lot back to sitting on the side of a flat bed without using bedrails? Moving to and from a A lot bed to a chair ( including a wheelchair)? Standing up from a A lot chair using your arms? (e.g., wheelchair, bedside chair) Walking in hospital A lot room? Climbing 3-5 steps A lot with a railing? Mobility Score 13 Mobility Level [facility] Mobility 4 Move to chair/commode Mobility Calculator Rehab PT IP Eval Objective Appearance Patient Behavior Appropriate,Cooperative Patient Orientation Person,Place,Situation Difficulty following none instructions Speech Pattern Clear Ambulation Patient Able to No Ambulate Balance Ability to Arise Able, uses arms to help Sitting Balance Steady, safe Standing Balance Unsteady Transfers Bed Transfer Ability Maximum x 1 (75% assist) Sit to Stand Bed Minimal x 1 (25% assist) Transfer Ability Rehab PT IP prob,goals,plan Problems Date of Evaluation: 12/26/24 PT IP Problems Bed Mobility,Transfers,Gait,Balance,Self care,Safety Rehab Potential Rehab Potential Good Plan PT Intervention Plan Bed Mobility,Transfers,Gait,Balance,Self care,Safety, Therapeutic Exercise Other Intervention 1-2 times Plan PT Plan Frequency Daily Duration LOS Discharge Goals Bed Transfer Ability Minimal x 1 (25% assist) Sit to Stand Chair Contact Guard/Hand Hold Transfer Ability Discharge Plan PT Discharge Plan Pt presents below baseline in mobility. Pt most appropriate for inpatient rehab placement d/t current level of mobility. Pt required Max A x 2 for scooting to HOB and performing sit>supine. Pt would benefit from skilled acute care PT while at [facility] to prevent further functional decline. Eval Complexity Eval Charge Codes 72805 - Moderate Complexity PHYSICIAN CERTIFICATION: I certify the specified therapy services for Stacey George are required, authorized, and reviewed every 30 days.
--- NOTE | 2024-12-26 10:32 | HMH.OTEV ---
OT Inpatient Evaluation Rehab OT IP Evaluation Start: 12/26/24 07:45 Freq: ONCE Status: Active Protocol: Document [facility]26[facility]24 10:24 [facility] (Rec: 12/26/24 10:32 [facility] [id number]) Rehab OT IP Assessment Subjective History Pt oriented x 3 on arrival. Pt agreeable to engage in therapy evaluation. Pt admitted to [facility] on 12/25/24 due to SOB and volume overload. History and physical: Stacey George is a 54 year old female who presents to our ED again to shortness of breath and volume overload . Unfortunately patient has presented to our ED multiple times in the past week for similar presentation, yesterday having increased in diuretics by cardiology but continues to have volume overload and SOB. On my evaluation of patient, she had diffuse anasarca. BNP 2430. Case discussed with ED provider and decision was made to admit patient for HFpEF exacerbation. Subjective Prior to being in the hospital. Pt lived at home with her two sons and daughter in law. Pt claims normally she is independent with feeding, but does require some assist from family with dressing and bathing. She is dependent upon family for completion of IADLs. Pt uses a motorized wheelchair for functional mobility tasks. Pt claims usually she is able to complete stand pivot transfers from surface to surface independently. Pt no longer drives. Pt is on 2L of o2 at all times. Objective Patient Orientation Person,Place,Birthday Right Upper Min Limitation <25% Extremity Gross ROM Left Upper Extremity Min Limitation <25% Gross ROM Shoulder ROM Muscle Weakness Limitations Elbow ROM Muscle Weakness Limitations Wrist Limitations of Muscle Weakness Range of Motion Bed Mobility bed mobility-scooting,bed mobility - supine/sit,bed mobility - rolling Assist Level Maximum x 1 (75% assist) Lower Body Dressing Maximum Assistance Ability Performing Toilet Maximum Assistance Hygiene Ability Rehab OT IP prob,goals,plan Problems Date of Evaluation: 12/26/24 OT IP Problems Bed Mobility,Transfers,Balance,Self care,Safety Rehab Potential Rehab Potential Good Equipment Needs Assistive Devices Rolling / Wheeled Walker,Wheelchair Plan OT intervention Plan Bed Mobility,Transfers,Balance,Self care,Safety, Therapeutic Exercise OT Plan Frequency Daily Duration LOS Discharge Goals Bed Mobility Ability Assistance x1 Sit to Stand Chair Maximum x 1 (75% assist) Transfer Ability Chair Transfer Maximum x 1 (75% assist) Ability Chair Transfer Stand Pivot Technique Chair Transfer Rolling Walker Assistive Devices Lower Body Dressing Moderate Assistance Ability Upper Body Dressing Minimal Assistance Ability Bathing Ability Maximum Assistance Performing Toilet Moderate Assistance Hygiene Ability Overall Commode/ Maximum Assistance Toilet Transfer Ability Commode/Toilet Stand Pivot Transfer Technique Discharge Plan OT Discharge Plan Pt will continue to be seen for OT services while at [facility]. Pt would benefit most from short term rehab at SNF following discharge from hospital. Continued skilled therapy is important in order for patient to improve strength, safety, endurance, ADL independence, and functional transfers to reach PLOF. Eval Complexity Eval Charge Codes 31994 - Moderate Complexity PHYSICIAN CERTIFICATION: I certify the specified therapy services for Stacey George are required, authorized, and reviewed every 30 days.
--- NOTE | 2024-12-26 11:09 | P.PN_ITS ---
<Statement entered by Hernan Barros MD - 12/26/24 14:44> Rounded on patient after nurse practitioner. Personally examined and interviewed patient. Agree with exam findings and care plan as documented. Subjective *Date: 12/26/24 *Time: 14:40 Interval history: Mr. George is a 54-year-old female patient admitted to hospital medicine due to a CHF exacerbation, shortness of breath, and volume overload. She states she is feeling some better, her shortness of breath has improved, she is back down to her baseline 2 L nasal cannula. Her edema is better, and she states she has urinated quite a bit. She is tearful this morning stating she has been struggling with her health and her weight recently, and is ready to make a change. Patient agreeable to placement. Medical Exam Vital signs and Labs for Last 24 Hours: Vital Signs Temp Pulse Resp BP Pulse Ox O2 Del Method O2 Flow Rate 12/26/24 08:00 98 F 64 16 114/55 L 92 L 12/26/24 08:00 Nasal Cannula 3 12/26/24 06:39 96 Nasal Cannula 3 12/26/24 06:28 Nasal Cannula 3 12/26/24 04:24 Nasal Cannula 3 12/26/24 04:00 98.5 F 61 17 110/54 L 94 L Nasal Cannula 3 12/26/24 02:19 Nasal Cannula 3 12/26/24 01:00 Nasal Cannula 2 12/26/24 00:00 97.8 F 60 17 116/57 L 95 Nasal Cannula 12/25/24 20:08 Nasal Cannula 2 12/25/24 20:00 Nasal Cannula 2 12/25/24 20:00 97.8 F 61 18 103/57 L 95 Nasal Cannula 2 12/25/24 19:00 Nasal Cannula 2 12/25/24 17:00 Nasal Cannula 12/25/24 16:00 98.3 F 60 18 73/43 L 96 Nasal Cannula 2 12/25/24 12:00 97.5 F L 62 20 100/38 L 94 L Nasal Cannula 3 Intake and Output 12/25/24 12/26/24 12/26/24 23:59 07:59 15:59 Intake Total 240 / 1420 240 / 240 Output Total 3625 / 4925 Balance -3385 / -3505 240 / 240 Intake: Intake, Oral Amount 240 / 1420 240 / 240 Output: Output, Urine Amount 3625 / 4925 Other: Number of Unmeasured Voids 0 Number of Bowel Movements 1 Weight 210.6 kg Patient Weight 12/26/24 23:59 Weight 210.6 kg Laboratory Results - last 24 hr 12/25/24 11:20: Urine Color Yellow, Urine Appearance Clear, Urine pH 8.0, Ur Specific [place] 1.010, Urine Protein Negative, Urine Glucose (UA) Negative, Urine Ketones Negative, Urine Blood Trace-i, Urine Nitrate Negative, Urine Bilirubin Negative, Urine Urobilinogen 0.2, Ur Leukocyte Esterase Negative, Urine RBC 5-10, Urine WBC Occasional, Ur Squamous Epith Cells Occasional, Urine Bacteria None 12/25/24 17:17: POC Glucose 150 H 12/25/24 20:34: POC Glucose 141 H 12/26/24 05:41: POC Glucose 101 12/26/24 06:42: WBC Cancelled, Corrected WBC Cancelled, RBC Cancelled, Hgb Cancelled, Hct Cancelled, MCV Cancelled, MCH Cancelled, MCHC Cancelled, RDW Cancelled, Plt Count Cancelled, MPV Cancelled, Neut % (Auto) Cancelled, Lymph % (Auto) Cancelled, [place] % (Auto) Cancelled, Eos % (Auto) Cancelled, Baso % (Auto) Cancelled, Neut # (Auto) Cancelled, Lymph # (Auto) Cancelled, [place] # (Auto) Cancelled, Eos # (Auto) Cancelled, Baso # (Auto) Cancelled 12/26/24 09:05: WBC 8.3, RBC 3.26 L, Hgb 8.5 L, Hct 30.1 L, MCV 92.3, MCH 26.1 L , MCHC 28.2 L, RDW 17.2, Plt Count 348, MPV 10.5 H, Neut % (Auto) 67.0, Lymph % (Auto) 24.1, [place] % (Auto) 4.6, Eos % (Auto) 2.7, Baso % (Auto) 0.5, Neut # (Auto) 5.5, Lymph # (Auto) 2.0, [place] # (Auto) 0.4, Eos # (Auto) 0.2, Baso # (Auto) 0.0, Sodium 133 L, Potassium 4.3, Chloride 90 L, Carbon Dioxide 40 H, Anion Gap 7.3, BUN 18 H D, Creatinine 1.10 H, Estimated Creat Clear 45, Estimated GFR 51 L, Est GFR ( Amer) 62, Glucose 139 H, Calcium 8.3 L, Magnesium 1.7 D, Total Bilirubin 0.4, AST 20, ALT 14, Alkaline Phosphatase 94, Total Protein 5.4 L, Albumin 2.8 L D, Globulin 2.6, Albumin/Globulin Ratio 1.1 I & O for Labs for Last 24 Hours: Intake & Output 12/23/24 12/24/24 12/25/24 12/26/24 23:59 23:59 23:59 23:59 Intake Total 1180 / 1420 240 / 240 Output Total 350 / 350 4925 / 4925 Balance -350 / -110 -3745 / -3505 240 / 240 Weight 207.428 kg 203.799 kg 210.6 kg Head: Present normocephalic Eyes: Absent eye pain or eye discharge ENT: Present normal exam Neck: Present normal inspection Respiratory: Present distant breath sounds and able to speak in complete sentences Cardiac: Present Reg Rate and Rhythm; Absent No Murmur GI: Present soft and normal bowel sounds; Absent distention or tenderness Rectal (female): Present deferred Extremities: Present edema Skin: Present intact Neuro: Present awake and oriented x 3 Assessment and Plan *Assessment and plan (1) (HFpEF) heart failure with preserved ejection fraction: Status: Acute Qualifiers: Heart failure chronicity: unspecified Qualified Code(s): I50.30 - Unspecified diastolic (congestive) heart failure Category: Medical Code(s): I50.30 - Unspecified diastolic (congestive) heart failure (2) CHF exacerbation: Status: Acute Category: Medical Code(s): I50.9 - Heart failure, unspecified (3) Chronic dyspnea: Status: Acute Category: Medical Code(s): R06.09 - Other forms of dyspnea (4) Morbid obesity: Status: Acute Category: Medical Code(s): E66.01 - Morbid (severe) obesity due to excess calories (5) Morbid obesity with body mass index (BMI) greater than or equal to 70 in adult: Status: Acute Category: Medical Code(s): E66.01 - Morbid (severe) obesity due to excess calories; Z68.45 - Body mass index [BMI] 70 or greater, adult (6) Generalized weakness: Status: Acute Category: Medical Code(s): R53.1 - Weakness (7) Reduced mobility: Status: Acute Category: Medical Code(s): Z74.09 - Other reduced mobility (8) Postmenopausal bleeding: Status: Acute Category: Medical Code(s): N95.0 - Postmenopausal bleeding (9) HONEY (obstructive sleep apnea): Status: Acute Category: Medical Code(s): G47.33 - Obstructive sleep apnea (adult) (pediatric) (10) Hypothyroidism (acquired): Status: Acute Category: Medical Code(s): E03.9 - Hypothyroidism, unspecified (11) HTN (hypertension): Status: Acute Qualifiers: Hypertension type: unspecified Qualified Code(s): I10 - Essential (primary) hypertension Category: Medical Code(s): I10 - Essential (primary) hypertension (12) Depression: Status: Acute Qualifiers: Depression Type: unspecified Qualified Code(s): F32.A - Depression, unspecified Category: Medical Code(s): F32.A - Depression, unspecified (13) Type 2 diabetes mellitus: Status: Acute Qualifiers: Diabetes mellitus complication status: without complication Diabetes mellitus chcf insulin use: without marine oil terminal superintendent use Qualified Code(s): E11.9 - Type 2 diabetes mellitus without complications Category: Medical Code(s): E11.9 - Type 2 diabetes mellitus without complications (14) Edema: Status: Acute Category: Medical Code(s): R60.9 - Edema, unspecified Plan Mrs. George is a 54 year old female who presents to our ED again to shortness of breath and volume overload. Unfortunately patient has presented to our ED multiple times in the past week for similar presentation, yesterday having increased in diuretics by cardiology but continues to have volume overload and SOB. On my evaluation of patient, she had diffuse anasarca. BNP 2430. Case discussed with ED provider and decision was made to admit patient for HFpEF exacerbation. #HFpEF exacerbation #Anasarca #Edema - Presented with progressive SOB, BNP 2340, with anasarca. - Started IV Bumex 2mg BID, metolazone 5 mg twice daily, spinolactone 25mg. Diuresing well. ?Limited ECHO in November 2024 shows LVEF 50%. ? Cardiology consulted, pending further recommendations. -Edema improved, urinary output #Morbid obesity - Patient tearful, feels depressed about her weight and lifestyle. Has previously been through bariatric surgery prep program only to be told she's not a cadidate. - Has also been on Ozempic without much weight loss, states she doesn't eat much but does drink water quite a bit. - Hope to refer patient to another bariatric surgeon to which patient is very amenable. #Physical deconditioning #Generalized Weakness #Reduced Mobility ? PT/OT consulted, evaluation shows need for placement at SNF upon discharge. Pt. agreeable. #Mobitz type II heart block ? S/p pacemaker placement. Vital signs stable. #Obesity ? Complicating all aspects of care. #Anxiety/depression ? Continue Wellbutrin 200 mg daily. -Discussed with patient feeling of despair and depression. She is willing to see behavioral health outpatient. She states her medications have not been adjusted in many years. # Postmenopausal Bleeding - SCENERY BUILDER consulted, transvaginal US ordered -SCENERY BUILDER recommending surgery at tertiary facility due to chronic illnesses and morbid obesity #Type 2 DM -ACHS glucose checks, sliding scale insulin -home meds continued: Metformin 500 mg BID #HONEY -Pt. states she has a CPAP at home but it is broken. She states she has been working up gasping for air periodically. Discussed options with care management for replacment. -Pt. does wear 2L O2 continuously at baseline. #Hypothyroidsim -Continue home medication: Synthroid 300 mg daily -TSH 3.22- 12/23/24 Full code DVT prophylaxis: Lovenox 60 mg twice daily
[2024-12-26 11:35] LABS: POC Glucose,Bedside 123 (70-110)
--- NOTE | 2024-12-26 12:36 | P.CONS_ITS ---
History of Present Illness *Admission Date: 12/24/24 *Reason for visit:: Postmenopausal bleeding *History of present illness: Stacey George is a 54 year old female who presented to the ED for recurrent shortness of breath and volume overload. Unfortunately patient has presented to our ED multiple times in the past week for similar presentation, yesterday having increased in diuretics by cardiology but continues to have volume overload and SOB. On evaluation by hospitalist she had diffuse anasarca. BNP 2430. She was admitted for HFpEF exacerbation. Yesterday she began having heavy vaginal bleeding that has continued into today. Bleeding is heavy with passage of clots. She states she stopped having periods a little over 2 years ago. Prior to that, periods were regular, monthly. She started bleeding again about 4 months ago. She states bleeding is irregular and she may skip a month. Other times she will bleed heavy for 2 or 3 days and then bleed again a few weeks later. Bleeding is sporadic. She denies pelvic pain. Denies hot flashes and night sweats. [id number]. x 4. History of tubal ligation 24 years ago. She admits her breathing is much better today. [facility] Disclaimer: The information contained in this section may have been updated after the patient was seen, as this information can be updated by other users. Medical History (Updated 12/26/24 @ 12:50 by Rosa Graham DO) Morbid obesity with body mass index (BMI) greater than or equal to 70 in adult Postmenopausal bleeding HLD (hyperlipidemia) Obesity Abdominal pain UTI (urinary tract infection) Hospital discharge follow-up Establishing care with new doctor, encounter for Restless leg Glaucoma Arthritis of both knees Urinary incontinence Unspecified asthma, uncomplicated Tear of meniscus of knee Pre-diabetes Diastolic CHF, acute on chronic Pulmonary hypertension Elevated left ventricular end-diastolic pressure (LVEDP) Asthma exacerbation Sleep apnea History of COVID-19 COPD (chronic obstructive pulmonary disease) Asthma Abscess of groin, right Acute exacerbation of chronic obstructive airways disease Left against medical advice Dependent on wheelchair Assistance needed for continence Incisional hernia Lower leg pain Knee pain Vaginal bleeding Perimenopausal Cellulitis Hypothyroidism Dizziness Chest pain Sinusitis Tobacco abuse counseling Tobacco abuse HONEY (obstructive sleep apnea) Ventral hernia Dyspnea Depression Pharyngitis due to Streptococcus species Epigastric pain Gastritis Strep throat HTN (hypertension) Hypothyroidism (acquired) TIA (transient ischemic attack) COPD exacerbation Paresthesias Shortness of breath Acute bronchitis Tobacco abuse COPD (chronic obstructive pulmonary disease) Infiltrate of lung present on chest x-ray Atelectasis of right lung Cough Upper respiratory infection Surgical History History of lateral meniscus repair of right knee H/O tubal ligation Hx of cholecystectomy H/O hernia repair History of colon resection Family History Mother Hypertension Diabetes Father Cancer Social History Smoking Status: Never smoker years smoked: 38 smoking status stop date: 3 months ago quit status: has quit before second hand exposure: Yes alcohol intake: never substance use type: denies use current occupational status: unemployed Travel in the last 8 weeks?: None household members: family and children housing: other lives independently: No marital status: legally number of children: 4 education level: other caffeine: Yes do you feel safe at home: Yes victim of physical abuse: No victim of emotional abuse: No victim of sexual abuse: No Have you lived/traveled outside [place] in past 30 days?: No Contact w/someone who lives/traveled outside [place] past 30 days?: No Exposure to someone with infectious disease in past 14 days?: No Do you have a fever (greater than 100.4 F or 38 C)?: No Have you tested positive for COVID-19?: No Exposed to someone with COVID-19 in past 14 days?: No Do you have a sore throat?: No Do you have a cough?: No Do you have any weakness?: No Do you have any diarrhea?: No Are you experiencing any unusual bleeding?: No Do you have any muscle aches/pain?: No Do you have any abdominal pain?: No Are you experiencing loss of taste or smell?: No Review of Systems Review of Systems Review of systems:: pertinent systems reviewed and negative unless documented below Constitutional Constitutional: Reports as per HPI *Genitourinary Genitourinary: Reports abnormal vaginal bleeding Meds Home Medications and Allergies Home Medications ?Medication ?Instructions ?Recorded ?Confirmed ?Type calcium carbonate (Calcium 600) 600 mg PO DAILY 12/25/24 History cholecalciferol (vitamin D3) 1,250 1,250 mcg PO WEEKLY #12 caps 05/26/24 12/25/24 Rx mcg (50,000 unit) capsule levothyroxine 150 mcg tablet 300 mcg PO DAILYDM 12/25/24 History cyanocobalamin (vitamin B-12) 1,000 mcg PO DAILY 09/2412/25/24 History 1,000 mcg tablet fluticasone fur. 100 mcg-umeclid 1 inh inhalation LEONARDO Y 09/24/24 12/25/24 History 62.5 mcg-vilant 25 mcg inhalat.powder (Trelegy Ellipta) ipratropium 0.5 mg-albuterol 3 mg 3 ml inhalation QIDP PRN shortness 09/24/24 12/25/24 History (2.5 mg base)/3 mL nebulization of breath or wheezing soln lisinopril 40 mg tablet 40 mg PO DAILY 09/24/2403/13 History trazodone 150 mg tablet 300 mg PO HS 09/24/24 History atorvastatin 40 mg tablet 40 mg PO HS #90 tabs 5 12/25/24 Rx evolocumab 140 mg/mL subcutaneous 140 mg SQ Q2W #2 mL 11/24/24 12/25/24 Rx pen injector (Meli Dowling) bupropion HCl 200 mg tablet,12 hr 400 mg PO DAILY 11/1712/25/24 History sustained-release metformin 500 mg tablet 500 mg PO BIDWMEAL 12/02/24 12/25/24 History ondansetron 4 mg disintegrating 4 mg PO Q8HP PRN nause a, vomiting 12/02/24 12/25/24 History tablet meloxicam 15 mg tablet 15 mg PO DAILYP PRN Moderate Pain 12/03/24 12/25/24 History (Scale Score 5-6) torsemide 20 mg tablet 60 mg PO BIDL 12/03/2412/25 History albuterol sulfate 90 mcg/actuation 2 puff inhalation Q 4HP PRN 12/07/24 12/25/24 History aerosol inhaler Shortness Of Breath metoprolol succinate 25 mg 25 mg PO DAILY 30 days #30 tabs 12/07/24 12/25/24 Rx tablet,extended release 24 hr metolazone 5 mg tablet 5 mg PO Q12H #180 tabs 12/2312/25/24 Rx spironolactone 100 mg tablet 100 mg PO DAILY #90 tabs 12/23/24 12/25/24 Rx aspirin 81 mg tablet,delayed 81 mg PO DAILY 12/25/24 0 12/25/24 History release oxybutynin chloride 5 mg tablet 5 mg PO BID 12/25/24 0 12/25/24 History ropinirole 4 mg tablet 4 mg PO DAILY 12/25/2412/25 History semaglutide 0.25 mg or 0.5 mg (2 0.5 mg SQ WEEKLY 03/1312/25/24 History mg/3 mL) subcutaneous pen injector ([employer]) New Prescriptions to Start Prescriptions: Allergies Allergy/AdvReac Type Severity Reaction Status Date / Time adhesive tape (ADHESIVE TAPE) Allergy Unknown Blister Verified 11/22/24 14:36 hydromorphone (From DILAUDID) Allergy Unknown Hypotension Verified 11/22/24 14:36 nickel (NICKEL) Allergy Unknown Blister Verified 11/22/24 14:36 Exam (Inpt) Vital signs and Labs for Last 24 Hours: Temp Pulse Resp BP Pulse Ox O2 Del Method O2 Flow Rate 98 F 64 16 114/55 L 92 L Nasal Cannula 3 12/26/24 08:00 12/26/24 08:00 12/26/24 08:00 12/26/24 08:00 12/26/24 08:00 12/26/24 08:00 12/26/24 08:00 Laboratory Results - last 24 hr 12/25/24 11:20: Urine Color Yellow, Urine Appearance Clear, Urine pH 8.0, Ur Specific [place] 1.010, Urine Protein Negative, Urine Glucose (UA) Negative, Urine Ketones Negative, Urine Blood Trace-i, Urine Nitrate Negative, Urine Bilirubin Negative, Urine Urobilinogen 0.2, Ur Leukocyte Esterase Negative, Urine RBC 5-10, Urine WBC Occasional, Ur Squamous Epith Cells Occasional, Urine Bacteria None 12/25/24 17:17: POC Glucose 150 H 12/25/24 20:34: POC Glucose 141 H 12/26/24 05:41: POC Glucose 101 12/26/24 06:42: WBC Cancelled, Corrected WBC Cancelled, RBC Cancelled, Hgb Cancelled, Hct Cancelled, MCV Cancelled, MCH Cancelled, MCHC Cancelled, RDW Cancelled, Plt Count Cancelled, MPV Cancelled, Neut % (Auto) Cancelled, Lymph % (Auto) Cancelled, [place] % (Auto) Cancelled, Eos % (Auto) Cancelled, Baso % (Auto) Cancelled, Neut # (Auto) Cancelled, Lymph # (Auto) Cancelled, [place] # (Auto) Cancelled, Eos # (Auto) Cancelled, Baso # (Auto) Cancelled 12/26/24 09:05: WBC 8.3, RBC 3.26 L, Hgb 8.5 L, Hct 30.1 L, MCV 92.3, MCH 26.1 L , MCHC 28.2 L, RDW 17.2, Plt Count 348, MPV 10.5 H, Neut % (Auto) 67.0, Lymph % (Auto) 24.1, [place] % (Auto) 4.6, Eos % (Auto) 2.7, Baso % (Auto) 0.5, Neut # (Auto) 5.5, Lymph # (Auto) 2.0, [place] # (Auto) 0.4, Eos # (Auto) 0.2, Baso # (Auto) 0.0, Sodium 133 L, Potassium 4.3, Chloride 90 L, Carbon Dioxide 40 H, Anion Gap 7.3, BUN 18 H D, Creatinine 1.10 H, Estimated Creat Clear 45, Estimated GFR 51 L, Est GFR ( Amer) 62, Glucose 139 H, Calcium 8.3 L, Magnesium 1.7 D, Total Bilirubin 0.4, AST 20, ALT 14, Alkaline Phosphatase 94, Total Protein 5.4 L, Albumin 2.8 L D, Globulin 2.6, Albumin/Globulin Ratio 1.1 12/26/24 11:28: POC Glucose 123 H I & O for Labs for Last 24 Hours: Intake & Output 12/23/24 12/24/24 12/25/24 12/26/24 23:59 23:59 23:59 23:59 Intake Total 1180 / 1420 240 / 240 Output Total 350 / 350 4925 / 4925 Balance -350 / -110 -3745 / -3505 240 / 240 Weight 457 lb 4.8 oz 449 lb 4.8 oz 464 lb 4.696 oz HEENT Head: Present normocephalic and atraumatic ENT: Present mucous membranes moist Neck: Present normal inspection Respiratory: Present CTA bilaterally and normal respiratory effort Cardiac: Present Reg Rate and Rhythm GI: Present soft (large panus) Rectal (female): Present deferred Extremities: Present normal inspection Neuro: Present alert and awake Assessment and Plan *Assessment and plan (1) Postmenopausal bleeding: Status: Acute Category: Medical Code(s): N95.0 - Postmenopausal bleeding (2) Volume overload: Status: Acute Qualifiers: Hypervolemia type: unspecified Qualified Code(s): E87.70 - Fluid overload, unspecified Category: Medical Code(s): E87.70 - Fluid overload, unspecified (3) Chronic dyspnea: Status: Acute Category: Medical Code(s): R06.09 - Other forms of dyspnea (4) Obesity hypoventilation syndrome: Status: Acute Category: Medical Code(s): E66.2 - Morbid (severe) obesity with alveolar hypoventilation (5) Morbid obesity with body mass index (BMI) greater than or equal to 70 in adult: Status: Acute Category: Medical Code(s): E66.01 - Morbid (severe) obesity due to excess calories; Z68.45 - Body mass index [BMI] 70 or greater, adult (6) Second degree heart block: Status: Acute Category: Medical Code(s): I44.1 - Atrioventricular block, second degree (7) Hypothyroidism: Status: Acute Qualifiers: Hypothyroidism type: unspecified Qualified Code(s): E03.9 - Hypothyroidism, unspecified Category: Medical Code(s): E03.9 - Hypothyroidism, unspecified Plan Pelvic ultrasound ordered Hormone Labs ordered TSH 12/23 = 3.22 Hgb 8.5 (stable from admission on 12/23 (Hgb 8.7) but decreased from admission 12/07 - Hgb 12.2) She is pending transfer to rehab facility Secondary to patient's chronic illnesses and morbid obesity, BMI > 70. She is not a candidate for surgery at [facility]. Our surgical beds cannot accommodate BMI > 60. Will await ultrasound report but she will likely need a D&C at a tertiary care center If bleeding remains heavy, can consider starting her on Provera 10 mg TID for 5- 10 days then transitioning to maintenance dose of progesterone. Once Provera is stopped expect heavy bleed within 7 days of stopping unless she is transitioned to maintenance medication
[2024-12-26] MEDS: ONDANSETRON 4MG/2ML VIAL 4 MG IV ×2 (13:35→20:04)
[2024-12-26 13:56] LABS: Hematocrit 29.5 % (37.0-47.0); Hemoglobin 8.8 g/dL (12.2-16.2)
--- NOTE | 2024-12-26 14:25 | CA_ITS ---
APPROVED REPORT EXAM: Limited 2D Echocardiogram with contrast Bumper Machine Operator: Margaux Dickens CRT Ht: 5 ft 2 in Wt: 464lbs BSA: 2.73 BP: 110/58 mmHg Indications: EVALUATE HEART FAILURE Echo Enhancing Agent Indication: Endocardial border delineation Agent(s) / Amount(s) Used: Definity 2 cc Comments: DEFINITY GIVEN M-Mode Dimensions RVDd 4.37 cm (0.9-2.6) LA Diam 3.45 cm (1.9-4.0) LVDd 4.04 cm (3.5-5.7) LVDs 2.51 cm (3.5-5.7) IVSd 1.78 cm (0.6-1.1) PWd 0.73 cm (0.6-1.1) EF (Teich) 68.60% FS 37.90% EDV (Teich) 71.70 mL ESV (Teich) 22.50 mL Other Information Study Quality: Technically Difficult. Technically limited study due to body habitus. Conclusion This is a limited TTE to evaluate for LV systolic function. Limited windows are obtained. Technically difficult study due to poor acoustic windows. Ultrasound enhancing agent is administered. The left ventricle is normal in size. There is increased LV wall thickness. There is mild reduction global LV systolic function. The septum is asynchronous. Regional wall motion cannot be well-evaluated in the setting of technically difficult study. LVEF is 45%. Administration of ultrasound enhancing agent demonstrates no evidence of LV thrombus. Electronically signed by : Candice Mann MD 12/26/2024 23:16:06
--- NOTE | 2024-12-26 15:08 | EXP.CARD.CON ---
History of Present Illness History of Present Illness Consult date: 12/26/24 Chief complaint: Shortness of breath and edema History of present illness: 54-year-old white female evaluated here last year with a BMI of 66, HFpEF, COPD, untreated sleep apnea. She developed Mobitz type II block in November and underwent pacemaker implantation. She has been seen in the clinic a few times for adjustment of diuretics but states she cannot take them frequently due to urinating herself. She presented here to the emergency room on 12/24 with complaints of shortness of breath and volume overload. Her BMI is now up to 82. 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 She has diuresed 3.8 L since admission and is feeling somewhat better. [facility] Disclaimer: The information contained in this section may have been updated after the patient was seen, as this information can be updated by other users. Medical History Morbid obesity with body mass index (BMI) greater than or equal to 70 in adult Postmenopausal bleeding HLD (hyperlipidemia) Obesity Abdominal pain UTI (urinary tract infection) Hospital discharge follow-up Establishing care with new doctor, encounter for Restless leg Glaucoma Arthritis of both knees Urinary incontinence Unspecified asthma, uncomplicated Tear of meniscus of knee Pre-diabetes Diastolic CHF, acute on chronic Pulmonary hypertension Elevated left ventricular end-diastolic pressure (LVEDP) Asthma exacerbation Sleep apnea History of COVID-19 COPD (chronic obstructive pulmonary disease) Asthma Abscess of groin, right Acute exacerbation of chronic obstructive airways disease Left against medical advice Dependent on wheelchair Assistance needed for continence Incisional hernia Lower leg pain Knee pain Vaginal bleeding Perimenopausal Cellulitis Hypothyroidism Dizziness Chest pain Sinusitis Tobacco abuse counseling Tobacco abuse HONEY (obstructive sleep apnea) Ventral hernia Dyspnea Depression Pharyngitis due to Streptococcus species Epigastric pain Gastritis Strep throat HTN (hypertension) Hypothyroidism (acquired) TIA (transient ischemic attack) COPD exacerbation Paresthesias Shortness of breath Acute bronchitis Tobacco abuse COPD (chronic obstructive pulmonary disease) Infiltrate of lung present on chest x-ray Atelectasis of right lung Cough Upper respiratory infection Surgical History History of lateral meniscus repair of right knee H/O tubal ligation Hx of cholecystectomy H/O hernia repair History of colon resection Family History Mother Hypertension Diabetes Father Cancer Social History Smoking Status: Never smoker years smoked: 38 smoking status stop date: 3 months ago quit status: has quit before second hand exposure: Yes alcohol intake: never substance use type: denies use current occupational status: unemployed Travel in the last 8 weeks?: None household members: family and children housing: other lives independently: No marital status: legally number of children: 4 education level: other caffeine: Yes do you feel safe at home: Yes victim of physical abuse: No victim of emotional abuse: No victim of sexual abuse: No Have you lived/traveled outside [place] in past 30 days?: No Contact w/someone who lives/traveled outside [place] past 30 days?: No Exposure to someone with infectious disease in past 14 days?: No Do you have a fever (greater than 100.4 F or 38 C)?: No Have you tested positive for COVID-19?: No Exposed to someone with COVID-19 in past 14 days?: No Do you have a sore throat?: No Do you have a cough?: No Do you have any weakness?: No Do you have any diarrhea?: No Are you experiencing any unusual bleeding?: No Do you have any muscle aches/pain?: No Do you have any abdominal pain?: No Are you experiencing loss of taste or smell?: No Review of Systems Constitutional Constitutional: Denies fatigue and Denies weakness Eyes Eyes: Denies loss of vision ENT Ears, Nose, Mouth, and Throat: Denies hearing loss and Denies vertigo *Cardiovascular Cardiovascular: Denies chest pain, Denies dyspnea and Denies syncope *Respiratory Respiratory: Denies cough and Denies dyspnea *Gastrointestinal Gastrointestinal: Denies change in stool character, Denies nausea and Denies vomiting *Musculoskeletal Musculoskeletal: Denies muscle weakness Integumentary/Breasts Skin/Breast: Denies changing lesions *Neurologic Neurologic: Denies loss of vision, Denies syncope, Denies vertigo and Denies weakness Endocrine Endocrine: Denies fatigue Exam Data for Last 24 hours Vital signs and Labs for Last 24 Hours: Temp Pulse Resp BP Pulse Ox O2 Del Method O2 Flow Rate 98.1 F 58 L 16 87/51 L 93 L Nasal Cannula 3 12/26/24 12:00 12/26/24 12:00 12/26/24 12:00 12/26/24 12:00 12/26/24 12:00 12/26/24 13:00 12/26/24 13:00 Laboratory Results - last 24 hr 12/25/24 11:20: Urine Color Yellow, Urine Appearance Clear, Urine pH 8.0, Ur Specific [place] 1.010, Urine Protein Negative, Urine Glucose (UA) Negative, Urine Ketones Negative, Urine Blood Trace-i, Urine Nitrate Negative, Urine Bilirubin Negative, Urine Urobilinogen 0.2, Ur Leukocyte Esterase Negative, Urine RBC 5-10, Urine WBC Occasional, Ur Squamous Epith Cells Occasional, Urine Bacteria None 12/25/24 17:17: POC Glucose 150 H 12/25/24 20:34: POC Glucose 141 H 12/26/24 05:41: POC Glucose 101 12/26/24 06:42: WBC Cancelled, Corrected WBC Cancelled, RBC Cancelled, Hgb Cancelled, Hct Cancelled, MCV Cancelled, MCH Cancelled, MCHC Cancelled, RDW Cancelled, Plt Count Cancelled, MPV Cancelled, Neut % (Auto) Cancelled, Lymph % (Auto) Cancelled, [place] % (Auto) Cancelled, Eos % (Auto) Cancelled, Baso % (Auto) Cancelled, Neut # (Auto) Cancelled, Lymph # (Auto) Cancelled, [place] # (Auto) Cancelled, Eos # (Auto) Cancelled, Baso # (Auto) Cancelled 12/26/24 09:05: WBC 8.3, RBC 3.26 L, Hgb 8.5 L, Hct 30.1 L, MCV 92.3, MCH 26.1 L, MCHC 28.2 L, RDW 17.2, Plt Count 348, MPV 10.5 H, Neut % (Auto) 67.0, Lymph % (Auto) 24.1, [place] % (Auto) 4.6, Eos % (Auto) 2.7, Baso % (Auto) 0.5, Neut # (Auto) 5.5, Lymph # (Auto) 2.0, [place] # (Auto) 0.4, Eos # (Auto) 0.2, Baso # (Auto) 0.0, Sodium 133 L, Potassium 4.3, Chloride 90 L, Carbon Dioxide 40 H, Anion Gap 7.3, BUN 18 H D, Creatinine 1.10 H, Estimated Creat Clear 45, Estimated GFR 51 L, Est GFR ( Amer) 62, Glucose 139 H, Calcium 8.3 L, Magnesium 1.7 D, Total Bilirubin 0.4, AST 20, ALT 14, Alkaline Phosphatase 94, Total Protein 5.4 L, Albumin 2.8 L D, Globulin 2.6, Albumin/Globulin Ratio 1.1 12/26/24 11:28: POC Glucose 123 H 12/26/24 13:46: Hgb 8.8 L, Hct 29.5 L I & O for Last 24 hours: Intake & Output 12/23/24 12/24/24 12/25/24 12/26/24 23:59 23:59 23:59 23:59 Intake Total 1180 / 1420 240 / 240 Output Total 350 / 350 4925 / 4925 1300 / 1300 Balance -350 / -110 -3745 / -3505 -1060 / -1060 Weight 457 lb 4.8 oz 449 lb 4.8 oz 464 lb 4.696 oz Constitutional Constitutional: morbidly obese Meds Home Medications and Allergies Home Medications ?Medication ?Instructions ?Recorded ?Confirmed ?Type calcium carbonate (Calcium 600) 600 mg PO DAILY 10/03/23 12/25/24 History cholecalciferol (vitamin D3) 1,250 1,250 mcg PO WEEKLY #12 caps 05/26/24 12/25/24 Rx mcg (50,000 unit) capsule levothyroxine 150 mcg tablet 300 mcg PO DAILYDM 08/16/24 12/25/24 History cyanocobalamin (vitamin B-12) 1,000 mcg PO DAILY 09/24/24 12/25/24 History 1,000 mcg tablet fluticasone fur. 100 mcg-umeclid 1 inh inhalation DAILY 09/24/24 12/25/24 History 62.5 mcg-vilant 25 mcg inhalat.powder (Trelegy Ellipta) ipratropium 0.5 mg-albuterol 3 mg 3 ml inhalation QIDP PRN shortness 09/24/24 12/25/24 History (2.5 mg base)/3 mL nebulization of breath or wheezing soln lisinopril 40 mg tablet 40 mg PO DAILY 09/24/24 12/25/24 History trazodone 150 mg tablet 300 mg PO HS 09/24/24 12/25/24 History atorvastatin 40 mg tablet 40 mg PO HS #90 tabs 11/01/24 12/25/24 Rx evolocumab 140 mg/mL subcutaneous 140 mg SQ Q2W #2 mL 11/24/24 12/25/24 Rx pen injector (Meli Dowling) bupropion HCl 200 mg tablet,12 hr 400 mg PO DAILY 12/02/24 12/25/24 History sustained-release metformin 500 mg tablet 500 mg PO BIDWMEAL 12/02/24 12/25/24 History ondansetron 4 mg disintegrating 4 mg PO Q8HP PRN nausea, vomiting 12/02/24 12/25/24 History tablet meloxicam 15 mg tablet 15 mg PO DAILYP PRN Moderate Pain 12/03/24 12/25/24 History (Scale Score 5-6) torsemide 20 mg tablet 60 mg PO BIDL 12/03/24 12/25/24 History albuterol sulfate 90 mcg/actuation 2 puff inhalation Q4HP PRN 12/07/24 12/25/24 History aerosol inhaler Shortness Of Breath metoprolol succinate 25 mg 25 mg PO DAILY 30 days #30 tabs 12/07/24 12/25/24 Rx tablet,extended release 24 hr metolazone 5 mg tablet 5 mg PO Q12H #180 tabs 12/23/24 12/25/24 Rx spironolactone 100 mg tablet 100 mg PO DAILY #90 tabs 12/23/24 12/25/24 Rx aspirin 81 mg tablet,delayed 81 mg PO DAILY 12/25/24 12/25/24 History release oxybutynin chloride 5 mg tablet 5 mg PO BID 12/25/24 12/25/24 History ropinirole 4 mg tablet 4 mg PO DAILY 12/25/24 12/25/24 History semaglutide 0.25 mg or 0.5 mg (2 0.5 mg SQ WEEKLY 12/25/24 12/25/24 History mg/3 mL) subcutaneous pen injector (Ozempic) New Prescriptions to Start Prescriptions: Allergies Allergy/AdvReac Type Severity Reaction Status Date / Time adhesive tape (ADHESIVE TAPE) Allergy Unknown Blister Verified 11/22/24 14:36 hydromorphone (From DILAUDID) Allergy Unknown Hypotension Verified 11/22/24 14:36 nickel (NICKEL) Allergy Unknown Blister Verified 11/22/24 14:36 Assessment and Plan *Assessment and plan (1) Morbid obesity with body mass index (BMI) greater than or equal to 70 in adult: Status: Acute Category: Medical Code(s): E66.01 - Morbid (severe) obesity due to excess calories; Z68.45 - Body mass index [BMI] 70 or greater, adult (2) Volume overload: Status: Acute Qualifiers: Hypervolemia type: unspecified Qualified Code(s): E87.70 - Fluid overload, unspecified Category: Medical Code(s): E87.70 - Fluid overload, unspecified (3) Chronic diastolic heart failure: Status: Acute Category: Medical Code(s): I50.32 - Chronic diastolic (congestive) heart failure (4) (HFpEF) heart failure with preserved ejection fraction: Status: Acute Qualifiers: Heart failure chronicity: unspecified Qualified Code(s): I50.30 - Unspecified diastolic (congestive) heart failure Category: Medical Code(s): I50.30 - Unspecified diastolic (congestive) heart failure Plan Acute on chronic HFpEF secondary to extreme morbid obesity with BMI 82 - Known diagnosis with numerous admissions - Exacerbated secondary to noncompliance with diuretics secondary to urinary incontinence and mobility issues - I recommend placement of indwelling cath, uptitrate GLP-1, extreme diet change with patient admission to SNF - continue Aldactone, GLKP-1, Torsemide - cont Bumex 2mg BID, cannot increase right now due to low BP - no SLGT-2 due to urinary incontinence Sympt[facility] normal function on EKG - wires appear in place on CXR - will do PPM interrogation Vaginal Bleeding - ongoing with Hgb drop from 12 to 8 in 1 month - gynecology consult pending DM-II - well controlled with A1C 6.3 Obesity Hypoventilation Syndrome - weight loss - nebs
[2024-12-26] MEDS: DEFINITY US ECHO CONTRAST 2ML INJ 2 MG IV (15:23)
[2024-12-26 17:25] LABS: POC Glucose,Bedside 130 (70-110)
[2024-12-26] MEDS: ATORVASTATIN 40MG TABLET 40 MG PO (20:04)
[2024-12-26] MEDS: ROPINIROLE 1MG TABLET 4 MG PO (20:04)
[2024-12-26] MEDS: humaLOG 100 UNITS/ML 10ML VIAL (SSI) SUBCUT (20:48)
[2024-12-27] VITALS: BP 83/37; PULSE 62; RESP 22; TEMP 36.8; O2SAT 95
[2024-12-27] MEDS: ONDANSETRON 4MG/2ML VIAL 4 MG IV ×3 (03:45→15:51)
[2024-12-27 04:00] VITALS: BP 89/58; PULSE 64; RESP 17; TEMP 37.2; O2SAT 96; BMI 82.3
[2024-12-27] MEDS: FLUTICASONE/UMECLIDIN/VILANTER 100/62.5/25MCG INHALER 1 PUFF IH (06:12)
[2024-12-27 06:13] VITALS: O2SAT 97
[2024-12-27] MEDS: METFORMIN 500MG TABLET 500 MG PO (06:37)
[2024-12-27] MEDS: LEVOTHYROXINE 150MCG (0.15MG)TAB 300 MCG PO (06:37)
[2024-12-27 06:49] LABS: Basophils % 0.5 % (0.1-2.0); Eosinophils # 0.2 Kmm3 (0.0-0.4); Eosinophils % 2.9 % (0.1-12.0); Hematocrit 30.4 % (37.0-47.0); Hemoglobin 8.6 g/dL (12.2-16.2); Immature Granulocytes # 0.09 10^3uL; Immature Granulocytes % 1.1 %; Lymphocytes # 1.9 K/mm3 (0.7-4.5); Lymphocytes % 22.5 % (10-50); Mean Corpuscular HGB Conc 28.3 g/dL (31.8-35.4); Mean Corpuscular Hemoglobin 25.7 pg (27.0-31.2); Mean Platelet Volume 10.1 fl (7.4-10.4); Monocytes # 0.5 K/mm3 (0.1-1.0); Neutrophils # 5.6 K/mm3 (1.8-7.8); Nucleated Red Blood Cells # 0.04 10^3/uL; Nucleated Red Blood Cells % 0.5 %; Platelet Count 323 K/mm3 (142-424); Red Blood Count 3.34 M/mm3 (4.20-5.40); Red Cell Distribution Width 16.9 % (11.5-17.5); Red Cell Distribution Width-SD 56.5 fL; White Blood Count 8.3 K/mm3 (4.8-10.8)
[2024-12-27 07:09] LABS: Albumin Level 3.2 g/dl (3.5-5.0); Chloride 91 mmol/L (98-107); Potassium 4.4 mmoL/L (3.5-5.1); Sodium 130 mmol/L (136-145)
[2024-12-27 07:12] LABS: Alanine Aminotransferase 16 U/L (12-78); Alkaline Phosphatase 100 U/L (38-126); Anion Gap 4.4 mEq/L (5-15); Aspartate Amino Transferase 28 U/L (14-36); Bilirubin,Total 0.2 mg/dl (0.2-1.3); Blood Urea Nitrogen 19 mg/dl (7-17); Calcium 8.7 mg/dl (8.4-10.2); Carbon Dioxide 39 mmol/L (22.0-30.0); Creatinine Clearance Estimated 45 mL/min (50-200); Estimated Glomerular Filt Rate 51 ml/min (>60); GFR (African American) 62 ML/MIN (>60); Globulin 3.1 g/dL (1.3-3.2); Glucose 103 mg/dl (74-100); Total Protein,Serum 6.3 g/dl (6.3-8.2)
[2024-12-27 07:13] LABS: Magnesium 1.8 mg/dl (1.6-2.3)
[2024-12-27 08:00] VITALS: BP 111/51; PULSE 66; RESP 20; TEMP 36.3; O2SAT 2; O2SAT 94
[2024-12-27] MEDS: buPROPion HCL 100 MG TABLET 200 MG PO (08:08)
[2024-12-27] MEDS: metOLazone 2.5MG TABLET 5 MG PO ×2 (08:08→15:51)
[2024-12-27] MEDS: ASPIRIN EC 81MG TABLET 81 MG PO (08:08)
[2024-12-27] MEDS: BUMETANIDE 1MG/4ML VIAL 2 MG IV ×2 (08:08→14:07)
[2024-12-27] MEDS: ENOXAPARIN 60MG/0.6ML SYRINGE 60 MG SUBCUT (08:08)
[2024-12-27] MEDS: METOPROLOL SUCCINATE XL 25MG TABLET 25 MG PO (08:08)
--- NOTE | 2024-12-27 09:54 | P.DS_ITS ---
<Statement entered by Hernan Barros MD - 12/27/24 13:53> Rounded on patient after nurse practitioner. Personally examined and interviewed patient. Agree with exam findings and care plan as documented. General Admission date:: 12/24/24 HPI HPI HPI: Stacey George is a 54 year old female who presented to the ED for recurrent shortness of breath and volume overload. Unfortunately patient has presented to our ED multiple times in the past week for similar presentation, yesterday having increased in diuretics by cardiology but continues to have volume overload and SOB. On evaluation by hospitalist she had diffuse anasarca. BNP 2430. She was admitted for HFpEF exacerbation. Yesterday she began having heavy vaginal bleeding that has continued into today. Bleeding is heavy with passage of clots. She states she stopped having periods a little over 2 years ago. Prior to that, periods were regular, monthly. She started bleeding again about 4 months ago. She states bleeding is irregular and she may skip a month. Other times she will bleed heavy for 2 or 3 days and then bleed again a few weeks later. Bleeding is sporadic. She denies pelvic pain. Denies hot flashes and night sweats. [id number]. x 4. History of tubal ligation 24 years ago. She admits her breathing is much better today. Hospital Course Hospital Course Hospital Course: 54-year-old female presented to the urgency department with worsening shortness of breath, weakness, and apparent volume overload with a BNP of 2430. She has been seen multiple times within the emergency room and admitted to the hospital in the last several months. Most recently related to bradycardia and a heart block, at which time she was transferred to the [facility] for pacemaker placement. She was admitted to surgical floor for further management of her HFpEF exacerbation and diuresis. During admission was found, showed an H&H of 8.9 and 31.3. Discussed this with the patient, which at the time she admits to having postmenopausal vaginal bleeding for the last 4 or so months. SENIOR INVESTMENT ANALYST was consulted and a pelvic ultrasound was performed, due to patient's morbid obesity ultrasound was not able to visualize the uterus. SENIOR INVESTMENT ANALYST recommends an MRI of her uterus due to possible suspected malignancy. Cardiology was consulted her pacemaker was interrogated that was recently placed at the [facility]; the interrogation showed that the atrial lead had been dislodged and that the pacemaker is malfunctioning. After discussion with cardiology, Dr. David, and Dr. Aranda at the [facility]; the decision was made for transfer back to the [facility] for a pacemaker revision and SENIOR INVESTMENT ANALYST consult. Her care was managed as follows during her admission: #HFpEF exacerbation #Anasarca #Mobitz type II heart block ?Patient originally presented with shortness of breath, weakness, and volume overload patient was aggressively diuresed with Bumex 2 mg twice daily IV and spironolactone 25 mg p.o. during her stay. Patient now feels much better and edema has greatly improved. Hernández catheter was placed upon admission due to patient's morbid obesity and urinary frequency/incontinence. ?Patient states work of breathing is much better and has returned to her baseline of 2 L nasal cannula. ?Echo was performed during admission and showed a LVEF of 45%. #Morbid obesity, BMI of 82 ?Discussed with patient during stay need for significant weight loss. She has been evaluated by bariatric center but due to her other comorbidities she was declined to surgery. Patient has tried a GLP-1 medication without success. Discussed the need for placement for physical therapy, diet modifications, and compliance with her medications. #Postmenopausal vaginal bleeding ?SENIOR INVESTMENT ANALYST recommends MRI of the uterus, pelvic ultrasound unsuccessful due to patient's size. SENIOR INVESTMENT ANALYST believes there is a high suspicion of malignancy. Due to patient's size our facility cannot facilitate a surgical procedure or MRI, we are hopeful that the [facility] can consult SENIOR INVESTMENT ANALYST at their facility during patient's admission. ?Patient has remained anemic throughout her visit, hemoglobin on admission was 8.7 and transfer is 8.6. #Anxiety/depression ? Continue Wellbutrin 200 mg daily. -Discussed with patient feeling of despair and depression. She is willing to see behavioral health outpatient. She states her medications have not been adjusted in many years. #HONEY -Pt. states she has a CPAP at home but it is broken. She states she has been working up gasping for air periodically. Discussed options with care management for replacment. -Pt. does wear 2L O2 continuously at baseline. #Hypothyroidsim -Continue home medication: Synthroid 300 mg daily -TSH 3.22- 12/23/24 Total time spent on discharge: 37 minutes on chart review, counseling, documentation, and direct care with patient. Discharge planning: Patient has been accepted by [facility], [facility] facility, in [facility]-and has a bed there when she is medically appropriate for discharge from the [facility]. Exam Data for Last 24 hours Vital signs and Labs for Last 24 Hours: Temp Pulse Resp BP Pulse Ox O2 Del Method O2 Flow Rate 97.3 F L 66 20 111/51 L 94 L Nasal Cannula 2 12/27/24 08:00 12/27/24 08:00 12/27/24 08:00 12/27/24 08:00 12/27/24 08:00 12/27/24 08:00 12/27/24 08:00 Laboratory Results - last 24 hr 12/26/24 06:42: WBC Cancelled, Corrected WBC Cancelled, RBC Cancelled, Hgb Cancelled, Hct Cancelled, MCV Cancelled, MCH Cancelled, MCHC Cancelled, RDW Cancelled, Plt Count Cancelled, MPV Cancelled, Neut % (Auto) Cancelled, Lymph % (Auto) Cancelled, Clarke % (Auto) Cancelled, Eos % (Auto) Cancelled, Baso % (Auto) Cancelled, Neut # (Auto) Cancelled, Lymph # (Auto) Cancelled, Clarke # (Auto) Cancelled, Eos # (Auto) Cancelled, Baso # (Auto) Cancelled 12/26/24 09:05: WBC 8.3, RBC 3.26 L, Hgb 8.5 L, Hct 30.1 L, MCV 92.3, MCH 26.1 L , MCHC 28.2 L, RDW 17.2, Plt Count 348, MPV 10.5 H, Neut % (Auto) 67.0, Lymph % (Auto) 24.1, Clarke % (Auto) 4.6, Eos % (Auto) 2.7, Baso % (Auto) 0.5, Neut # (Auto) 5.5, Lymph # (Auto) 2.0, Clarke # (Auto) 0.4, Eos # (Auto) 0.2, Baso # (Auto) 0.0 12/26/24 11:28: POC Glucose 123 H 12/26/24 13:46: Hgb 8.8 L, Hct 29.5 L 12/26/24 17:01: POC Glucose 130 H 12/27/24 06:30: WBC 8.3, RBC 3.34 L, Hgb 8.6 L, Hct 30.4 L, MCV 91.0, MCH 25.7 L , MCHC 28.3 L, RDW 16.9, Plt Count 323, MPV 10.1, Neut % (Auto) 67.0, Lymph % (Auto) 22.5, Clarke % (Auto) 6.0, Eos % (Auto) 2.9, Baso % (Auto) 0.5, Neut # (Auto) 5.6, Lymph # (Auto) 1.9, Clarke # (Auto) 0.5, Eos # (Auto) 0.2, Baso # (Auto) 0.0, Sodium 130 L, Potassium 4.4, Chloride 91 L, Carbon Dioxide 39 H, Anion Gap 4.4 L, BUN 19 H, Creatinine 1.10 H, Estimated Creat Clear 45, Estimated GFR 51 L, Est GFR ( Amer) 62, Glucose 103 H D, Calcium 8.7, Magnesium 1.8, Total Bilirubin 0.2, AST 28 D, ALT 16, Alkaline Phosphatase 100, Total Protein 6.3, Albumin 3.2 L D, Globulin 3.1, Albumin/Globulin Ratio 1.0 L I & O for Last 24 hours: Intake & Output 12/24/24 12/25/24 12/26/24 12/27/24 23:59 23:59 23:59 23:59 Intake Total 1180 / 1420 1440 / 1440 540 / 540 Output Total 350 / 350 4925 / 4925 3700 / 3900 1850 / 1850 Balance -350 / -110 -3745 / -3505 -2260 / -2460 -1310 / -1310 Weight 207.428 kg 203.799 kg 210.6 kg 210.6 kg Constitutional Constitutional: no acute distress and morbidly obese *Routine HEENT Exam Head: Present normocephalic and atraumatic *Routine Neck Exam Neck: Present full ROM *Routine Respiratory Exam Respiratory: Present CTA bilaterally, distant breath sounds and able to speak in complete sentences *Routine Cardiovascular Exam Cardiovascular: Present RRR *Routine Abdominal Exam Abdominal: Present normoactive bowel sounds and obese; Absent tenderness *Routine Extremities Exam Extremities: Present pallor; Absent edema *Routine Skin Exam Skin: Present intact and dry *Routine Neurological Exam Neurological: Present alert, oriented X3 and normal speech Routine Psychiatric Exam Psychiatric: Present cooperative and depressed Results Data Completed and Pending Labs on day of discharge: Labs from last 24 hours 12/27/24 12/26/24 12/26/24 06:30 17:01 13:46 WBC 8.3 Corrected WBC RBC 3.34 L Hgb 8.6 L 8.8 L Hct 30.4 L 29.5 L MCV 91.0 MCH 25.7 L MCHC 28.3 L RDW 16.9 Plt Count 323 MPV 10.1 Neut % (Auto) 67.0 Lymph % (Auto) 22.5 Clarke % (Auto) 6.0 Eos % (Auto) 2.9 Baso % (Auto) 0.5 Neut # (Auto) 5.6 Lymph # (Auto) 1.9 Clarke # (Auto) 0.5 Eos # (Auto) 0.2 Baso # (Auto) 0.0 Sodium 130 L Potassium 4.4 Chloride 91 L Carbon Dioxide 39 H Anion Gap 4.4 L BUN 19 H Creatinine 1.10 H Estimated Creat Clear 45 Estimated GFR 51 L Est GFR ( Amer) 62 Glucose 103 H D POC Glucose 130 H Calcium 8.7 Magnesium 1.8 Total Bilirubin 0.2 AST 28 D ALT 16 Alkaline Phosphatase 100 Total Protein 6.3 Albumin 3.2 L D Globulin 3.1 Albumin/Globulin Ratio 1.0 L 12/26/24 12/26/24 12/26/24 11:28 09:05 06:42 WBC 8.3 Cancelled Corrected WBC Cancelled RBC 3.26 L Cancelled Hgb 8.5 L Cancelled Hct 30.1 L Cancelled MCV 92.3 Cancelled MCH 26.1 L Cancelled MCHC 28.2 L Cancelled RDW 17.2 Cancelled Plt Count 348 Cancelled MPV 10.5 H Cancelled Neut % (Auto) 67.0 Cancelled Lymph % (Auto) 24.1 Cancelled Clarke % (Auto) 4.6 Cancelled Eos % (Auto) 2.7 Cancelled Baso % (Auto) 0.5 Cancelled Neut # (Auto) 5.5 Cancelled Lymph # (Auto) 2.0 Cancelled Clarke # (Auto) 0.4 Cancelled Eos # (Auto) 0.2 Cancelled Baso # (Auto) 0.0 Cancelled Sodium Potassium Chloride Carbon Dioxide Anion Gap BUN Creatinine Estimated Creat Clear Estimated GFR Est GFR ( Amer) Glucose POC Glucose 123 H Calcium Magnesium Total Bilirubin AST ALT Alkaline Phosphatase Total Protein Albumin Globulin Albumin/Globulin Ratio DS: Diagnosis Discharge Diagnosis (1) Morbid obesity with body mass index (BMI) greater than or equal to 70 in adult: Status: Acute Code(s): E66.01 - Morbid (severe) obesity due to excess calories; Z68.45 - Body mass index [BMI] 70 or greater, adult (2) Volume overload: Status: Acute Code(s): E87.70 - Fluid overload, unspecified Qualifiers: Hypervolemia type: unspecified Qualified Code(s): E87.70 - Fluid overload, unspecified (3) Chronic diastolic heart failure: Status: Acute Code(s): I50.32 - Chronic diastolic (congestive) heart failure (4) (HFpEF) heart failure with preserved ejection fraction: Status: Acute Code(s): I50.30 - Unspecified diastolic (congestive) heart failure Qualifiers: Heart failure chronicity: unspecified Qualified Code(s): I50.30 - Unspecified diastolic (congestive) heart failure (5) Postmenopausal bleeding: Status: Acute Code(s): N95.0 - Postmenopausal bleeding (6) Atrial pacemaker lead displacement: Status: Acute Code(s): T82.120A - Displacement of cardiac electrode, initial encounter (7) Hypothyroid: Status: Acute Code(s): E03.9 - Hypothyroidism, unspecified Qualifiers: Hypothyroidism type: unspecified Qualified Code(s): E03.9 - Hypothyroidism, unspecified (8) HONEY (obstructive sleep apnea): Status: Acute Code(s): G47.33 - Obstructive sleep apnea (adult) (pediatric) Meds Home Medications and Allergies Home Medications ?Medication ?Instructions ?Recorded ?Confirmed ?Type calcium carbonate (Calcium 600) 600 mg PO DAILY 12/25/24 History cholecalciferol (vitamin D3) 1,250 1,250 mcg PO WEEKLY #12 caps 05/26/24 12/25/24 Rx mcg (50,000 unit) capsule cyanocobalamin (vitamin B-12) 1,000 mcg PO DAILY 09/2412/25/24 History 1,000 mcg tablet fluticasone fur. 100 mcg-umeclid 1 inh inhalation LEONARDO Y 09/24/24 12/25/24 History 62.5 mcg-vilant 25 mcg inhalat.powder (Trelegy Ellipta) ipratropium 0.5 mg-albuterol 3 mg 3 ml inhalation QIDP PRN shortness 09/24/24 12/25/24 History (2.5 mg base)/3 mL nebulization of breath or wheezing soln lisinopril 40 mg tablet 40 mg PO DAILY 09/24/2403/13 History atorvastatin 40 mg tablet 40 mg PO HS #90 tabs 5 12/25/24 Rx evolocumab 140 mg/mL subcutaneous 140 mg SQ Q2W #2 mL 11/24/24 12/25/24 Rx pen injector (Meli Dowling) bupropion HCl 200 mg tablet,12 hr 400 mg PO DAILY 11/1712/25/24 History sustained-release metformin 500 mg tablet 500 mg PO BIDWMEAL 12/02/24 12/25/24 History ondansetron 4 mg disintegrating 4 mg PO Q8HP PRN nause a, vomiting 12/02/24 12/25/24 History tablet meloxicam 15 mg tablet 15 mg PO DAILYP PRN Moderate Pain 12/03/24 12/25/24 History (Scale Score 5-6) torsemide 20 mg tablet 60 mg PO BIDL 12/03/2412/25 History albuterol sulfate 90 mcg/actuation 2 puff inhalation Q 4HP PRN 12/07/24 12/25/24 History aerosol inhaler Shortness Of Breath metoprolol succinate 25 mg 25 mg PO DAILY 30 days #30 tabs 12/07/24 12/25/24 Rx tablet,extended release 24 hr metolazone 5 mg tablet 5 mg PO Q12H #180 tabs 12/2312/25/24 Rx spironolactone 100 mg tablet 100 mg PO DAILY #90 tabs 12/23/24 12/25/24 Rx aspirin 81 mg tablet,delayed 81 mg PO DAILY 12/25/24 0 12/25/24 History release oxybutynin chloride 5 mg tablet 5 mg PO BID 12/25/24 0 12/25/24 History ropinirole 4 mg tablet 4 mg PO DAILY 12/25/2412/25 History semaglutide 0.25 mg or 0.5 mg (2 0.5 mg SQ WEEKLY 03/1312/25/24 History mg/3 mL) subcutaneous pen injector (Ozempic) levothyroxine 150 mcg tablet See Rx Instructions .Rout e 12/27/24 Rx .COMPLEX #180 tabs trazodone 150 mg tablet See Rx Instructions .Route 0 12/27/24 Rx .COMPLEX #60 tabs New Prescriptions to Start Prescriptions: Allergies Allergy/AdvReac Type Severity Reaction Status Date / Time adhesive tape (ADHESIVE TAPE) Allergy Unknown Blister Verified 11/22/24 14:36 hydromorphone (From DILAUDID) Allergy Unknown Hypotension Verified 11/22/24 14:36 nickel (NICKEL) Allergy Unknown Blister Verified 11/22/24 14:36 Discharge Plan Disposition Patient Disposition: Xfer Short-Term Hosp Condition: Fair Discharge Order Discharge Orders: Discharge Order (Routine); Ordered 12/27/24 Ordered By: Natalee Fernandez Follow up Plan Follow up with: Behavioral Health [Provider Group, Behavioral Health] - Enter time for follow up Referral Note: 1-2 weeks Vahid Garcia DO [Staff Physician, Family Practice] - Enter time for follow up Vahid David MD [Staff Physician, Cardiology] - Enter time for follow up Prescriptions/Medication Reconciliation: Continued cholecalciferol (vitamin D3) 1,250 mcg (50,000 unit) capsule 1,250 mcg PO WEEKLY Qty: 12 3RF atorvastatin 40 mg tablet 40 mg PO HS Qty: 90 1RF Repatha SureClick 140 mg/mL pen injector 140 mg SQ Q2W Qty: 2 5RF levothyroxine 150 mcg tablet See Rx Instructions .ROUTE .COMPLEX Qty: 180 3RF Dose Instruction: TAKE TWO TABLETS BY MOUTH EVERY DAY IN THE MORNING Rx Instructions: TAKE TWO TABLETS BY MOUTH EVERY DAY IN THE MORNING trazodone 150 mg tablet See Rx Instructions .ROUTE .COMPLEX Qty: 60 5RF Dose Instruction: TAKE TWO TABLETS BY MOUTH EVERY DAY AT BEDTIME Rx Instructions: TAKE TWO TABLETS BY MOUTH EVERY DAY AT BEDTIME calcium carbonate [Calcium 600] 600 mg calcium (1,500 mg) Tablet 600 mg PO DAILY metformin 500 mg tablet 500 mg PO BIDWMEAL ondansetron 4 mg tablet,disintegrating 4 mg PO Q8HP PRN (Reason: nausea, vomiting) bupropion HCl 200 mg tablet sustained-release 12 hr 400 mg PO DAILY torsemide 20 mg tablet 60 mg PO BIDL meloxicam 15 mg tablet 15 mg PO DAILYP PRN (Reason: Moderate Pain (Scale Score 5-6)) cyanocobalamin (vitamin B-12) 1,000 mcg tablet 1,000 mcg PO DAILY Trelegy Ellipta 100-62.5-25 mcg blister with device 1 inh INHALATION DAILY Patient Comments: INHALE 1 PUFF BY MOUTH EVERY DAY --RINSE MOUTH AFTER USE-- ipratropium-albuterol 0.5 mg-3 mg(2.5 mg base)/3 mL solution for nebulization 3 ml inhalation QIDP PRN (Reason: shortness of breath or wheezing) lisinopril 40 mg Tablet 40 mg PO DAILY albuterol sulfate 90 mcg/actuation HFA aerosol inhaler 2 puff inhalation Q4HP PRN (Reason: Shortness Of Breath) metoprolol succinate 25 mg Tablet Extended Release 24 Hr 25 mg PO DAILY 30 Days Qty: 30 0RF spironolactone 100 mg tablet 100 mg PO DAILY Qty: 90 1RF metolazone 5 mg tablet 5 mg PO Q12H Qty: 180 1RF aspirin 81 mg tablet,delayed release (DR/EC) 81 mg PO DAILY oxybutynin chloride 5 mg tablet 5 mg PO BID ropinirole 4 mg tablet 4 mg PO DAILY Ozempic 0.25 mg or 0.5 mg (2 mg/3 mL) pen injector 0.5 mg SQ WEEKLY Problem Reconciliation Problems Reviewed?: Yes Patient Discharge Instructions ACTIVITY: Continue current activity DIET: continue same diet Patient Instructions: DI for Heart Failure, Stop Light Heart Failure Print Language: Swedish Providers Primary Care Provider: Provider,Referral Admit Provider: Jacinto Mayorga Attending Provider: Jacinto Mayorga
--- NOTE | 2024-12-27 10:59 | EXP.CARD.PN ---
Subjective Subjective Date: 12/27/24 Time: 09:30 Interval history: Patient has continued to diurese. She has ongoing vaginal bleeding with hemoglobin of 8. Repeat echo shows EF 45%. Denies any acute symptoms at this time. Exam Data for Last 24 hours Vital signs and Labs for Last 24 Hours: Temp Pulse Resp BP Pulse Ox O2 Del Method O2 Flow Rate 97.3 F L 66 20 111/51 L 94 L Nasal Cannula 2 12/27/24 08:00 12/27/24 08:00 12/27/24 08:00 12/27/24 08:00 12/27/24 08:00 12/27/24 10:53 12/27/24 10:53 Laboratory Results - last 24 hr 12/26/24 11:28: POC Glucose 123 H 12/26/24 13:46: Hgb 8.8 L, Hct 29.5 L 12/26/24 17:01: POC Glucose 130 H 12/27/24 06:30: WBC 8.3, RBC 3.34 L, Hgb 8.6 L, Hct 30.4 L, MCV 91.0, MCH 25.7 L, MCHC 28.3 L, RDW 16.9, Plt Count 323, MPV 10.1, Neut % (Auto) 67.0, Lymph % (Auto) 22.5, Tate % (Auto) 6.0, Eos % (Auto) 2.9, Baso % (Auto) 0.5, Neut # (Auto) 5.6, Lymph # (Auto) 1.9, Tate # (Auto) 0.5, Eos # (Auto) 0.2, Baso # (Auto) 0.0, Sodium 130 L, Potassium 4.4, Chloride 91 L, Carbon Dioxide 39 H, Anion Gap 4.4 L, BUN 19 H, Creatinine 1.10 H, Estimated Creat Clear 45, Estimated GFR 51 L, Est GFR ( Amer) 62, Glucose 103 H D, Calcium 8.7, Magnesium 1.8, Total Bilirubin 0.2, AST 28 D, ALT 16, Alkaline Phosphatase 100, Total Protein 6.3, Albumin 3.2 L D, Globulin 3.1, Albumin/Globulin Ratio 1.0 L I & O for Last 24 hours: Intake & Output 12/24/24 12/25/24 12/26/24 12/27/24 23:59 23:59 23:59 23:59 Intake Total 1180 / 1420 1440 / 1440 540 / 540 Output Total 350 / 350 4925 / 4925 3700 / 3900 2350 / 2350 Balance -350 / -110 -3745 / -3505 -2260 / -2460 -1810 / -1810 Weight 457 lb 4.8 oz 449 lb 4.8 oz 464 lb 4.696 oz 464 lb 4.696 oz Constitutional Constitutional: no acute distress, morbidly obese and cooperative *Routine HEENT Exam Eye: Present PERRL *Routine Respiratory Exam Respiratory: Present CTA bilaterally; Absent accessory muscle use, wheezes or crackles *Routine Cardiovascular Exam Cardiovascular: Present RRR, Normal S1 and Normal S2; Absent murmur, gallop or rubs *Routine Abdominal Exam Abdominal: Present soft; Absent tenderness *Routine Extremities Exam Extremities: Present pulses intact; Absent cyanosis or edema *Routine Skin Exam Skin: Present intact; Absent erythema or wounds *Routine Neurological Exam Neurological: Present alert and oriented X3 Routine Psychiatric Exam Psychiatric: Present cooperative Progress Note: A&P Assessment and plan (1) Morbid obesity with body mass index (BMI) greater than or equal to 70 in adult: Status: Acute (2) Volume overload: Status: Acute (3) Chronic diastolic heart failure: Status: Acute (4) (HFpEF) heart failure with preserved ejection fraction: Status: Acute (5) Postmenopausal bleeding: Status: Acute (6) Atrial pacemaker lead displacement: Status: Acute Assessment and Plan Assessment and Plan for All Diagnoses:: Acute on chronic HFrEF secondary to extreme morbid obesity with BMI 82 - Known diagnosis of HFpEF with numerous admissions - this admission EF appears slightly reduced to 45% in setting of atrial lead displacement and 100% RV pacing - recurrent exacerbations secondary to noncompliance with diuretics secondary to urinary incontinence and mobility issues - Recommend placement of indwelling cath, uptitrate GLP-1, extreme diet change with patient admission to SNF, continue Aldactone, GLP-1, Torsemide - no SLGT-2 due to urinary incontinence - 12/27: increase Bumex to 2mg QID to further diuresis prior to pacemaker lead revision Atrial Pacemaker Lead Dispalcement - hx of symptomatic Mobitz Type II s/p PPM at [facility] 11/2024 (could not do PPM here due to pt's weight) - PPM interrogation here reveals atrial lead displacement - 12/27: discussed with EP at [facility] and they are agreeable to accept again in transfer Post Menopausal Vaginal Bleeding - ongoing with Hgb drop from 12 to 8 in 1 month - plans per gynecology DM-II - well controlled with A1C 6.3 Obesity Hypoventilation Syndrome - weight loss - nebs CV stable for transfer to [facility] setting of atrial lead repair and
[2024-12-27 11:57] LABS: POC Glucose,Bedside 125 (70-110)
[2024-12-27 12:00] VITALS: BP 99/56; PULSE 80; RESP 20; TEMP 36.6; O2SAT 95
--- NOTE | 2024-12-27 12:20 | PC.NURSE ---
Spoke with transfer center for [facility], updated them on patient. No beds available at this time.
[2024-12-27] MEDS: SODIUM CHLORIDE 0.9% 25ML BAG 25 ML IV (13:31)
[2024-12-27] MEDS: PROMETHAZINE HCL 25MG/ML 1ML VIAL 12.5 MG IV (13:31)
[2024-12-27 14:58] LABS: POC Glucose,Bedside 156 (70-110)
[2024-12-27 14:58] LABS: POC Glucose,Bedside 102 (70-110)
--- NOTE | 2024-12-27 15:04 | PC.NURSE ---
Report called to [facility], ambulancer notified of need for transport
--- OUTSIDE RECORDS SUMMARY | 2024-12-27 15:50 | XMS_ITS | Clinical Summary ---
Author Organization Healthcare Address [address] [place] [address] Care Team Providers Care Telecom Sales Consultant Name Role Phone Brian Arguelles MD Primary Care Provider [phone] Social History Tobacco Use Types Packs/Day Years Used Date Smoking Tobacco: Never Assessed Comments Unknown Sex and Gender Information Value Date Recorded Sex Assigned at Not on file Legal Sex Female 7:51 PM EDT Gender Identity Not on file Sexual Orientation Not on file Plan of Treatment Health Maintenance Due Date Last Done Comments [facility]-Depression Screening 1968 [facility]Infant/Child/Adol SDOH Screenings 1970 [facility]- SDOH Screenings 1986 [...] (2 of 2 - PCV) 05/21/2021 05/21/2020 [id number] Vaccine (1 - 2023- season) 2024 [facility]-Influenza [...] MEDICARE [employer] MEDICAID Care Teams Telecom Sales Consultant Relationship Specialty Start Date End Date Brian Arguelles MD [address] NIKO Dahl PCP - General 11/30/20
[2024-12-27] MEDS: ACETAMINOPHEN 325MG TAB 650 MG PO (16:20)
[2024-12-27 16:41] LABS: POC Glucose,Bedside 113 (70-110)
--- OUTSIDE RECORDS SUMMARY | 2024-12-27 16:50 | XMS_ITS | CCD ---
Author Organization Unknown Care Team Providers Care Acid Recovery Operator Name Role Phone Unavailable Primary Care Provider Unavailabl e Unavailable Chronic Care Management Unavaila ble Summary Purpose DataExchange Insurance Providers Payer name Policy type / Coverage type Covered republican ID Effective Begin Date Effective End Date [facility] [id number] Unknown Unknown Family History Family History data not found Medication Administered No Medication Administered data Reason For Visit No Reason For Visit data Medical Equipment No Medical Equipment data Advance Directives No Advance Directive data
--- OUTSIDE RECORDS SUMMARY | 2024-12-27 16:50 | XMS_ITS | CCD ---
Author Organization Unknown Care Team Providers Care Employment Attorney Name Role Phone Unavailable Primary Care Provider Unavailabl e Unavailable Chronic Care Management Unavaila ble Summary Purpose DataExchange Insurance Providers Payer name Policy type / Coverage type Covered green party ID Effective Begin Date Effective End Date [facility] [id number] Unknown Unknown Family History Family History data not found Medication Administered No Medication Administered data Reason For Visit No Reason For Visit data Medical Equipment No Medical Equipment data Advance Directives No Advance Directive data
--- OUTSIDE RECORDS SUMMARY | 2025-02-09 20:00 | XMS_ITS | Clinical Summary ---
Author Organization Unknown Care Team Providers Care Amortization Schedule Clerk Name Role Phone KAYLEN DO, KADE Unavailable Unavailable RAVINDER PT, DEBRA Unavailable Unavailable INNA DELICATESSEN STORE MANAGER, CHAPIS Unavailable Unavailable ELINOR OT, JAIME Unavailable Unavailable Payers Payer Name Policy Type Policy Number Effective Date Expira tion Date [facility]AUTH [id number] Problems Condition Name Condition Details Condition Category Status Onset Date Resolution Date Last Treatment Date Treating Clinician Comments ACUTE KIDNEY FAILURE, UNSPECIFIED Active 12-07 00:00: 00 ATRIOVENTRIC ULAR BLOCK, SECOND DEGREE Active 12-07 00:00: 00 CHRONIC DIASTOLIC (CONGESTIVE) HEART FAILURE Active 12-13 00:00: 00 CHRONIC OBSTRUCTIVE PULMONARY DISEASE, UNSPECIFIED Active 12-13 00:00: 00 PULMONARY HYPERTENSION , UNSPECIFIED Active 12-13 00:00: 00 Allergies, Adverse Reactions, Alerts Allergy Name Allergy Type Status Severity Reaction(s) Onset Date Inactive Date Treating Clinician Comments NICKEL Propensity to adverse reactions Active 2024-11 13:34:1 2 DILAUDID Propensity to adverse reactions Active 2024-11 13:34:1 8 Vital Signs Vital Name Observation Time Observation Value Commen ts Temperature 2024-12-21 15:04:00.000 97.3 [degF] Temperature 2024-12-13 13:44:00.000 97.6 [degF] BMI (%) 2024-12-13 13:44:00.000 73 kg/m2 Height 2024-12-13 13:44:00.000 63 [in_us] Pulse 2024-12-22 11:27:00.000 66 /min Pulse 2024-12-21 15:04:00.000 64 /min Pulse 2024-12-13 13:44:00.000 55 /min O2 Saturation (%) 2024-12-22 11:27:00.000 95 % Respirations 2024-12-22 11:27:00.000 18 /min Respirations 2024-12-21 15:04:00.000 18 /min Respirations 2024-12-13 13:44:00.000 18 /min Weight (lbs) 2024-12-13 13:44:00.000 417 [lb_av] Systolic Blood Pressure 2024-12-22 11:27:00.000 114 mm [Hg] Systolic Blood Pressure 2024-12-21 15:04:00.000 132 mm [Hg] Systolic Blood Pressure 2024-12-13 13:44:00.000 128 mm [Hg] Diastolic Blood Pressure 2024-12-22 11:27:00.000 64 mm [Hg] Diastolic Blood Pressure 2024-12-21 15:04:00.000 72 mm [Hg] Diastolic Blood Pressure 2024-12-13 13:44:00.000 60 mm [Hg] Plan of Treatment Planned Activity Planned Date Details Comments Future Scheduled Test RN TO OBSE RVE, ASSESS, EVALUATE, AND DEVELOP AN INDIVIDUALIZED PLAN OF CARE. AGENCY MAY ACCEPT ORDERS FROM CONSULTING PHYSICIANS PCP RN TO OBSERVE AND ASSESS, POWER STATION OPERATOR/RESIDENTIAL ADVISOR TO OBSERVE FOR RISK FOR FALLS AND INSTRUCT IN FALL PREVENTION, HOME SAFETY, MEDICATION MANAGEMENT, INFECTION PREVENTION, AND NUTRITION MANAGEMENT. RN/POWER STATION OPERATOR/RESIDENTIAL ADVISOR NURSE MAY PERFORM O2 SATURATION LEVEL ON ADMISSION AND PRN FOR SOB FOR RN TO ASSESS/POWER STATION OPERATOR TO OBSERVE PATIENT, WITH NOTIFICATION TO THE PHYSICIAN IF SATURATION IS 90% IN THE ABSENCE OF MORE SPECIFIC PARAMETERS FROM THE PHYSICIAN. AGENCY MAY PERFORM A RESUMPTION OF CARE VISIT FOLLOWING ANY HOSPITAL ADMISSION. RN/POWER STATION OPERATOR/RESIDENTIAL ADVISOR TO MONITOR CO-MORBID CONDITIONS LISTED ON THE PLAN OF CARE AND ANY NEW CONDITIONS THAT PRESENT THEMSELVES DURING THIS EPISODE TO IDENTIFY CHANGES AND INTERVENE TO MINIMIZE COMPLICATIONS. [code = RN TO OBSERVE, ASSESS, EVALUATE, AND DEVELOP AN INDIVIDUALIZED PLAN OF CARE. AGENCY MAY ACCEPT ORDERS FROM CONSULTING PHYSICIANS PCP RN TO OBSERVE AND ASSESS, POWER STATION OPERATOR/RESIDENTIAL ADVISOR TO OBSERVE FOR RISK FOR FALLS AND INSTRUCT IN FALL PREVENTION, HOME SAFETY, MEDICATION MANAGEMENT, INFECTION PREVENTION, AND NUTRITION MANAGEMENT. RN/POWER STATION OPERATOR/RESIDENTIAL ADVISOR NURSE MAY PERFORM O2 SATURATION LEVEL ON ADMISSION AND PRN FOR SOB FOR RN TO ASSESS/POWER STATION OPERATOR TO OBSERVE PATIENT, WITH NOTIFICATION TO THE PHYSICIAN IF SATURATION IS 90% IN THE ABSENCE OF MORE SPECIFIC PARAMETERS FROM THE PHYSICIAN. AGENCY MAY PERFORM A RESUMPTION OF CARE VISIT FOLLOWING ANY HOSPITAL ADMISSION. RN/POWER STATION OPERATOR/RESIDENTIAL ADVISOR TO MONITOR CO-MORBID CONDITIONS LISTED ON THE PLAN OF CARE AND ANY NEW CONDITIONS THAT PRESENT THEMSELVES DURING THIS EPISODE TO IDENTIFY CHANGES AND INTERVENE TO MINIMIZE COMPLICATIONS.] Future Scheduled Test MEDICATION MANAGEMENT; RN/POWER STATION OPERATOR/RESIDENTIAL ADVISOR TO REVIEW MEDICATIONS FOR INTERACTIONS, EFFECTIVENESS OF DRUG THERAPY, AND SIGNS/SYMPTOMS OF ADVERSE REACTIONS. MAY INSTRUCT AND REINFORCE MEDICATION TEACHING RELATED TO THE USE OF MEDICATIONS, DOSAGE, FREQUENCY, PURPOSE, SIDE EFFECTS, AND TO REPORT COMPLICATIONS. [code = MEDICATION MANAGEMENT; RN/POWER STATION OPERATOR/RESIDENTIAL ADVISOR TO REVIEW MEDICATIONS FOR INTERACTIONS, EFFECTIVENESS OF DRUG THERAPY, AND SIGNS/SYMPTOMS OF ADVERSE REACTIONS. MAY INSTRUCT AND REINFORCE MEDICATION TEACHING RELATED TO THE USE OF MEDICATIONS, DOSAGE, FREQUENCY, PURPOSE, SIDE EFFECTS, AND TO REPORT COMPLICATIONS.] Future Scheduled Test CARDIOVASC ULAR SYSTEM; RN TO ASSESS/TEACH, POWER STATION OPERATOR/RESIDENTIAL ADVISOR TO OBSERVE/TEACH RELATED TO ALTERED CARDIOVASCULAR STATUS TO MINIMIZE COMPLICATIONS AND REDUCE HOSPITALIZATION. [code = CARDIOVASCULAR SYSTEM; RN TO ASSESS/TEACH, POWER STATION OPERATOR/RESIDENTIAL ADVISOR TO OBSERVE/TEACH RELATED TO ALTERED CARDIOVASCULAR STATUS TO MINIMIZE COMPLICATIONS AND REDUCE HOSPITALIZATION.] Future Scheduled Test HEART FAIL URE; RN TO ASSESS/TEACH, POWER STATION OPERATOR/RESIDENTIAL ADVISOR TO OBSERVE/TEACH CARDIOPULMONARY SYSTEM TO IDENTIFY SIGNS OF DECOMPENSATION AND INTERVENE TO MINIMIZE THE SEVERITY OF FLUID OVERLOAD. OBSERVE PATIENT ABILITY TO MONITOR AND RECORD DAILY WEIGHTS AND VITAL SIGNS, INCLUDING PULSE AND BLOOD PRESSURE; RECORD PATIENT REPORTED WEIGHT, OR WEIGH PATIENT NEEDED. REPORT INCREASED EDEMA OR WEIGHT GAIN OF >2 LBS IN 1 DAY OR >5 LBS IN 1 WEEK OR 5LBS OR MORE OVER TARGET WEIGHT. MAY MEASURE ABDOMINAL GIRTH IF UNABLE TO WEIGH. SCALES AND BP MONITOR TO BE PROVIDED IF NEEDED. [code = HEART FAILURE; RN TO ASSESS/TEACH, POWER STATION OPERATOR/RESIDENTIAL ADVISOR TO OBSERVE/TEACH CARDIOPULMONARY SYSTEM TO IDENTIFY SIGNS OF DECOMPENSATION AND INTERVENE TO MINIMIZE THE SEVERITY OF FLUID OVERLOAD. OBSERVE PATIENT ABILITY TO MONITOR AND RECORD DAILY WEIGHTS AND VITAL SIGNS, INCLUDING PULSE AND BLOOD PRESSURE; RECORD PATIENT REPORTED WEIGHT, OR WEIGH PATIENT NEEDED. REPORT INCREASED EDEMA OR WEIGHT GAIN OF >2 LBS IN 1 DAY OR >5 LBS IN 1 WEEK OR 5LBS OR MORE OVER TARGET WEIGHT. MAY MEASURE ABDOMINAL GIRTH IF UNABLE TO WEIGH. SCALES AND BP MONITOR TO BE PROVIDED IF NEEDED.] Future Scheduled Test PACEMAKER MANAGEMENT; RN/POWER STATION OPERATOR/RESIDENTIAL ADVISOR TO PROVIDE SKILLED TEACHING AND ASSIST WITH MANAGEMENT OF PACEMAKER. [code = PACEMAKER MANAGEMENT; RN/POWER STATION OPERATOR/RESIDENTIAL ADVISOR TO PROVIDE SKILLED TEACHING AND ASSIST WITH MANAGEMENT OF PACEMAKER.] Future Scheduled Test RESPIRATOR Y SYSTEM MANAGEMENT; RN TO ASSESS AND TEACH, POWER STATION OPERATOR/RESIDENTIAL ADVISOR TO OBSERVE AND TEACH RELATED TO ALTERED RESPIRATORY STATUS TO MINIMIZE COMPLICATIONS AND REDUCE HOSPITALIZATION. [code = RESPIRATORY SYSTEM MANAGEMENT; RN TO ASSESS AND TEACH, POWER STATION OPERATOR/RESIDENTIAL ADVISOR TO OBSERVE AND TEACH RELATED TO ALTERED RESPIRATORY STATUS TO MINIMIZE COMPLICATIONS AND REDUCE HOSPITALIZATION.] Future Scheduled Test OXYGEN THE RAPY; RN/POWER STATION OPERATOR/RESIDENTIAL ADVISOR TO INSTRUCT ON OXYGEN MANAGEMENT INCLUDING: ADMINISTRATION AT 3L/MIN VIA CONCENTRATOR [employer] FOR CARE OF EQUIPMENT AND SAFETY. [code = OXYGEN THERAPY; RN/POWER STATION OPERATOR/RESIDENTIAL ADVISOR TO INSTRUCT ON OXYGEN MANAGEMENT INCLUDING: ADMINISTRATION AT 3L/MIN VIA CONCENTRATOR [employer] FOR CARE OF EQUIPMENT AND SAFETY.] Future Scheduled Test PAIN MANAG EMENT; RN TO ASSESS AND TEACH, RESIDENTIAL ADVISOR/POWER STATION OPERATOR TO OBSERVE AND TEACH AND PROVIDE EDUCATION ON PAIN MANAGEMENT TECHNIQUES. [code = PAIN MANAGEMENT; RN TO ASSESS AND TEACH, RESIDENTIAL ADVISOR/POWER STATION OPERATOR TO OBSERVE AND TEACH AND PROVIDE EDUCATION ON PAIN MANAGEMENT TECHNIQUES.] Future Scheduled Test FALL REDUC TION MANAGEMENT; RN TO ASSESS AND OBSERVE, POWER STATION OPERATOR/RESIDENTIAL ADVISOR TO OBSERVE FALL RISK FACTORS AND EDUCATE PATIENT/CAREGIVER ON STRATEGIES TO MINIMIZE THE RISK OF FALLING. [code = FALL REDUCTION MANAGEMENT; RN TO ASSESS AND OBSERVE, POWER STATION OPERATOR/RESIDENTIAL ADVISOR TO OBSERVE FALL RISK FACTORS AND EDUCATE PATIENT/CAREGIVER ON STRATEGIES TO MINIMIZE THE RISK OF FALLING.] Future Scheduled Test RN/POWER STATION OPERATOR/RESIDENTIAL ADVISOR TO PERFORM/TEACH PATIENT/CAREGIVER WOUND CARE TO EXCORIATED BILATERAL INNER THIGHS IRRIGATE/CLEANSE SOAP AND WATER RINSE WELL AND DRY APPLY MEDICATED POWDER TWICE DAILY AND PRN [code = RN/POWER STATION OPERATOR/RESIDENTIAL ADVISOR TO PERFORM/TEACH PATIENT/CAREGIVER WOUND CARE TO EXCORIATED BILATERAL INNER THIGHS IRRIGATE/CLEANSE SOAP AND WATER RINSE WELL AND DRY APPLY MEDICATED POWDER TWICE DAILY AND PRN] Future Scheduled Test PHYSICAL T HERAPIST TO EVALUATE FOR STRENGTH BUILDING [code = PHYSICAL THERAPIST TO EVALUATE FOR STRENGTH BUILDING] Future Scheduled Test OCCUPATION AL THERAPIST TO EVALUATE FOR STRENGTH BUILDING [code = OCCUPATIONAL THERAPIST TO EVALUATE FOR STRENGTH BUILDING] Future Scheduled Test MEDICAL SO CIAL SERVICES FOR EVALUATION TO ASSESS SOCIAL AND EMOTIONAL FACTORS RELATED TO THE PATIENT'S ILLNESS, NEED FOR CARE, RESPONSE TO TREATMENT AND ADJUSTMENT TO CARE. [code = MEDICAL BILLET INSPECTOR FOR EVALUATION TO ASSESS SOCIAL AND EMOTIONAL FACTORS RELATED TO THE PATIENT'S ILLNESS, NEED FOR CARE, RESPONSE TO TREATMENT AND ADJUSTMENT TO CARE.] Future Scheduled Test AGENCY MAY PERFORM A RESUMPTION OF CARE VISIT FOLLOWING ANY HOSPITAL ADMISSION. PT TO EVALUATE, OBSERVE / ASSESS, AND MONITOR, DELICATESSEN STORE MANAGER TO OBSERVE AND MONITOR, PROVIDE SKILLED THERAPEUTIC INTERVENTION, ACTIVITY, EDUCATION, AND TRAINING TO ADDRESS; PT/DELICATESSEN STORE MANAGER TO PROVIDE GAIT TRAINING FOR IMPROVED MOBILITY AND /OR TO NORMALIZE GAIT PATTERN THERAPEUTIC EXERCISES AND ESTABLISHING A HOME EXERCISE PROGRAM (PT/DELICATESSEN STORE MANAGER) SIT TO/FROM STAND TRANSFERS (PT/DELICATESSEN STORE MANAGER) PT / DELICATESSEN STORE MANAGER TO MONITOR AND EDUCATE ON OXYGEN SATURATION DURING ADLS/IADLS, NOTIFY PHYSICIAN AND/OR THE RN CLINICAL WRONG ADDRESS CLERK FOR PHYSICIAN NOTIFICATION AND IF O2 SATS BELOW PHYSICIAN ORDERED PARAMETERS AFTER 10 MIN OF REST PT / DELICATESSEN STORE MANAGER TO INSTRUCT PATIENT/CAREGIVER ON RISK FOR HOSPITALIZATION/EMERGENCY ROOM VISITS, TEACH SIGNS AND SYMPTOMS THAT PUT PATIENT AT RISK, WHEN TO NOTIFY NURSE/PHYSICIAN OF COMPLICATIONS/DECLINE, AND WHEN TO CALL 911. PT TO ASSESS / DELICATESSEN STORE MANAGER TO MONITOR CARDIO/RESPIRATORY SYSTEM; AND NOTIFY THE PHYSICIAN AND/OR THE RN CLINICAL WRONG ADDRESS CLERK FOR PHYSICIAN NOTIFICATION FOR EARLY SIGNS AND SYMPTOMS OF EXACERBATION OR DETERIORATION. PT / DELICATESSEN STORE MANAGER TO EDUCATE ON PACEMAKER SELF-MANAGEMENT PT/DELICATESSEN STORE MANAGER TO IDENTIFY FALL RISK FACTORS; EDUCATE THE PATIENT/CAREGIVER ON WAYS TO REDUCE FALL RISK FACTORS AND ESTABLISH HOME EXERCISE PROGRAM TO MINIMIZE FALL RISK. MAY TEACH THE PATIENT FLOOR RECOVERY WHEN CLINICALLY APPROPRIATE [code = AGENCY MAY PERFORM A RESUMPTION OF CARE VISIT FOLLOWING ANY HOSPITAL ADMISSION. PT TO EVALUATE, OBSERVE / ASSESS, AND MONITOR, DELICATESSEN STORE MANAGER TO OBSERVE AND MONITOR, PROVIDE SKILLED THERAPEUTIC INTERVENTION, ACTIVITY, EDUCATION, AND TRAINING TO ADDRESS; PT/DELICATESSEN STORE MANAGER TO PROVIDE GAIT TRAINING FOR IMPROVED MOBILITY AND /OR TO NORMALIZE GAIT PATTERN THERAPEUTIC EXERCISES AND ESTABLISHING A HOME EXERCISE PROGRAM (PT/DELICATESSEN STORE MANAGER) SIT TO/FROM STAND TRANSFERS (PT/DELICATESSEN STORE MANAGER) PT / DELICATESSEN STORE MANAGER TO MONITOR AND EDUCATE ON OXYGEN SATURATION DURING ADLS/IADLS, NOTIFY PHYSICIAN AND/OR THE RN CLINICAL WRONG ADDRESS CLERK FOR PHYSICIAN NOTIFICATION AND IF O2 SATS BELOW PHYSICIAN ORDERED PARAMETERS AFTER 10 MIN OF REST PT / DELICATESSEN STORE MANAGER TO INSTRUCT PATIENT/CAREGIVER ON RISK FOR HOSPITALIZATION/EMERGENCY ROOM VISITS, TEACH SIGNS AND SYMPTOMS THAT PUT PATIENT AT RISK, WHEN TO NOTIFY NURSE/PHYSICIAN OF COMPLICATIONS/DECLINE, AND WHEN TO CALL 911. PT TO ASSESS / DELICATESSEN STORE MANAGER TO MONITOR CARDIO/RESPIRATORY SYSTEM; AND NOTIFY THE PHYSICIAN AND/OR THE RN CLINICAL WRONG ADDRESS CLERK FOR PHYSICIAN NOTIFICATION FOR EARLY SIGNS AND SYMPTOMS OF EXACERBATION OR DETERIORATION. PT / DELICATESSEN STORE MANAGER TO EDUCATE ON PACEMAKER SELF-MANAGEMENT PT/DELICATESSEN STORE MANAGER TO IDENTIFY FALL RISK FACTORS; EDUCATE THE PATIENT/CAREGIVER ON WAYS TO REDUCE FALL RISK FACTORS AND ESTABLISH HOME EXERCISE PROGRAM TO MINIMIZE FALL RISK. MAY TEACH THE PATIENT FLOOR RECOVERY WHEN CLINICALLY APPROPRIATE] Future Scheduled Test MEDICAL SO CIAL SERVICES FOR COMMUNITY RESOURCE PLANNING. [code = MEDICAL BILLET INSPECTOR FOR COMMUNITY RESOURCE PLANNING.] Goal Patient Goal - STAY OUT OF H OSPITAL Goal Provider Goal - A PLAN OF CARE WILL BE ESTABLISHED THAT MEETS THE PATIENTS NEEDS. PATIENT WILL DEMONSTRATE OXYGEN SATURATION WITHIN NORMAL LIMITS OR PATIENTS OPTIMAL LEVEL ESTABLISHED BY THE PHYSICIAN THROUGHOUT CARE. CHANGES TO CO-MORBID CONDITIONS AND ANY NEW CONDITIONS WILL BE IDENTIFIED AND REPORTED TO THE PHYSICIAN. Goal Provider Goal - PATIENT/CAREGIVER TO VERBALIZE, AND CONSISTENTLY DEMONSTRATE EFFECTIVE, SAFE MANAGEMENT OF MEDICATION INCLUDING KNOWLEDGE OF EFFECTIVENESS, POTENTIAL SIDE EFFECTS AND DRUG REACTIONS AND WHEN TO CONTACT THE APPROPRIATE CARE PROVIDER. PATIENT/CAREGIVER WILL BE ABLE TO VERBALIZE UNDERSTANDING OF MEDICATION REGIMEN AND ACCURATELY TAKE MEDICATIONS PRESCRIBED WITHOUT ADVERSE EFFECTS BY 9 WEEKS Goal Provider Goal - PATIENT / CAREGIVER WILL VERBALIZE/DEMONSTRATE UNDERSTANDING OF MEASURES TO MANAGE ALTERED CARDIOVASCULAR STATUS BY 9 WEEKS Goal Provider Goal - PATIENT / CAREGIVER WILL VERBALIZE/DEMONSTRATE AN ABILITY TO ADHERE TO SELF-MANAGEMENT OF HF TO MINIMIZE COMPLICATIONS AND AVOID HOSPITALIZATION BY END OF EPISODE. Goal Provider Goal - PATIENT / CAREGIVER WILL VERBALIZE/DEMONSTRATE UNDERSTANDING OF CARE AND MANAGEMENT OF PACEMAKER BY END OF EPISODE. Goal Provider Goal - PATIENT / CAREGIVER WILL VERBALIZE/DEMONSTRATE UNDERSTANDING OF MEASURES TO MANAGE ALTERED RESPIRATORY STATUS BY END OF EPISODE. Goal Provider Goal - PATIENT/CAREGIVER WILL VERBALIZE/DEMONSTRATE UNDERSTANDING OF CARE AND MANAGEMENT OF OXYGEN THERAPY BY END OF EPISODE Goal Provider Goal - PATIENT / CAREGIVER WILL VERBALIZE / DEMONSTRATE UNDERSTANDING OF PAIN CONTROL MEASURES BY 9 WEEKS Goal Provider Goal - PATIENT/CAREGIVER WILL VERBALIZE/DEMONSTRATE UNDERSTANDING OF FALL RISK FACTORS AND IMPLEMENT STRATEGIES TO MINIMIZE FALL RISK. PATIENT/CAREGIVER WILL VERBALIZE/DEMONSTRATE AN ABILITY TO ADHERE TO FALL REDUCTION SELF-MANAGEMENT AND LIFE-STYLE CHANGES BY 9 WEEKS Goal Provider Goal - PATIENT / CAREGIVER WILL VERBALIZE/DEMONSTRATE ABILITY TO PERFORM WOUND CARE. WOUND STATUS WILL IMPROVE EVIDENCED BY A DECREASE IN SIZE, DRAINAGE, ABSENCE OF INFECTION, AND DECREASED PAIN BY 9 WEEKS Goal Provider Goal - Goal Provider Goal - Goal Provider Goal - Goal Provider Goal - PT STG: PATIENT WILL DEMONSTRATE IMPROVED AMBULATION FROM 3 FT MOD TO 10 FT MIN WITH APPROPRIATE AD WITHIN 4 WEEKS. PT LTG: PATIENT WILL DEMONSTRATE IMPROVED AMBULATION FROM 3 FT MOD TO 50 FT IND WITH APPROPRIATE AD WITHIN 8 WEEKS. PT STG: PATIENT WILL DEMONSTRATE IMPROVEMENT ON CHAIR RISE TEST FROM 0 TO 2 INDICATING DECREASED FALL RISK WITHIN 4 WEEKS. PT LTG: PATIENT WILL DEMONSTRATE IMPROVEMENT ON CHAIR RISE TEST FROM 0 TO 5 INDICATING DECREASED FALL RISK WITHIN 8 WEEKS. PT LTG: PATIENT WILL DEMONSTRATE INDEPENDENCE AND COMPLIANCE WITH HEP WITHIN 4 WEEKS PT STG: PATIENT WILL DEMONSTRATE IMPROVED ABILITY TO PERFORM SIT TO/FROM STAND TRANSFERS TO REDUCE THE RISK OF SKIN BREAKDOWN AND REDUCE FALL RISK FROM MOD TO MIN WITHIN 4 WEEKS PT LTG: PATIENT WILL DEMONSTRATE IMPROVED ABILITY TO PERFORM SIT TO/FROM STAND TRANSFERS TO REDUCE THE RISK OF SKIN BREAKDOWN AND REDUCE FALL RISK FROM MOD TO IND WITHIN 8 WEEKS PT LTG: PATIENT WILL MAINTAIN OXYGEN SATURATION WITHIN PHYSICIAN ORDERED PARAMETERS THROUGHOUT EPISODE OF CARE. PT GOAL: PATIENT/CAREGIVER WILL VERBALIZE UNDERSTANDING OF SIGNS AND SYMPTOMS THAT PUT THE PATIENT AT RISK FOR HOSPITALIZATION /EMERGENCY ROOM VISITS, WHEN TO NOTIFY NURSE/PHYSICIAN OF COMPLICATIONS/DECLINE AND WHEN TO CALL 911. PT LTG: PATIENT WILL NOT EXPERIENCE CARDIAC OR RESPIRATORY COMPLICATIONS THROUGHOUT THE EPISODE OF CARE. PT GOAL: PATIENT/CAREGIVER WILL BE ABLE TO VERBALIZE UNDERSTANDING OF A PACEMAKER, SIGNS/SYMPTOMS TO REPORT, WELL SELF-MANAGEMENT AND LIFE-STYLE CHANGES TO IMPROVE QUALITY OF LIFE AND REDUCE CAREGIVER BURDEN BY END OF EPISODE. PT LTG: PATIENT/CAREGIVER WILL DEMONSTRATE ADHERENCE TO FALL REDUCTION SELF-MANAGEMENT AND REDUCING FALL RISK FACTORS TO MINIMIZE FALL RISK BY END OF EPISODE. Goal Provider Goal - PATIENT / CAREGIVER WILL DEMONSTRATE EFFECTIVE COMMUNITY RESOURCE PLANNING, EVIDENCED BY ACCEPTANCE OF ASSISTANCE FROM THOSE SERVICES FOR WHICH THEY ARE ELIGIBLE, EXTENDING THE PERIOD OF INDEPENDENCE IN THE HOME. Encounters Start Date/Time End Date/Time Encounter Type Admission Type Attending [facility] Care Facility Care Department Encounter ID Discharge Date Discharge Status Discharge Condition Discharge Reason Percent Goals Met 2024-12-13 00:00:00 2025-02-10 00:00:00 Outpatient NEW ADMISSION [facility] [id number]
--- OUTSIDE RECORDS SUMMARY | 2025-02-09 20:00 | XMS_ITS | Clinical Summary ---
Author Organization Unknown Care Team Providers Care Telecommunications Operator Name Role Phone KAYLEN DO, KADE Unavailable Unavailable RAVINDER PT, DEBRA Unavailable Unavailable INNA RECONCILIATION COORDINATOR, CHAPIS Unavailable Unavailable ELINOR OT, JAIME Unavailable Unavailable Payers Payer Name Policy Type Policy Number Effective Date Expira tion Date [facility]AUTH [id number] Problems Condition Name Condition Details Condition Category [...] PHYSICIANS PCP RN TO OBSERVE AND ASSESS, TRIAL JUSTICE/CHUCK SPLITTER TO OBSERVE FOR RISK FOR FALLS AND INSTRUCT IN FALL PREVENTION, HOME SAFETY, MEDICATION MANAGEMENT, INFECTION PREVENTION, AND NUTRITION MANAGEMENT. RN/TRIAL JUSTICE/CHUCK SPLITTER NURSE MAY PERFORM O2 SATURATION LEVEL ON ADMISSION AND PRN FOR SOB FOR RN TO ASSESS/TRIAL JUSTICE TO OBSERVE PATIENT, WITH NOTIFICATION TO THE PHYSICIAN IF SATURATION IS 90% IN THE ABSENCE OF MORE SPECIFIC PARAMETERS FROM THE PHYSICIAN. AGENCY MAY PERFORM A RESUMPTION OF CARE VISIT FOLLOWING ANY HOSPITAL ADMISSION. RN/TRIAL JUSTICE/CHUCK SPLITTER TO MONITOR CO-MORBID CONDITIONS LISTED ON THE PLAN OF CARE AND ANY NEW CONDITIONS THAT PRESENT THEMSELVES DURING THIS EPISODE TO IDENTIFY CHANGES AND INTERVENE TO MINIMIZE COMPLICATIONS. [code = RN TO OBSERVE, ASSESS, EVALUATE, AND DEVELOP AN INDIVIDUALIZED PLAN OF CARE. AGENCY MAY ACCEPT ORDERS FROM CONSULTING PHYSICIANS PCP RN TO OBSERVE AND ASSESS, TRIAL JUSTICE/CHUCK SPLITTER TO OBSERVE FOR RISK FOR FALLS AND INSTRUCT IN FALL PREVENTION, HOME SAFETY, MEDICATION MANAGEMENT, INFECTION PREVENTION, AND NUTRITION MANAGEMENT. RN/TRIAL JUSTICE/CHUCK SPLITTER NURSE MAY PERFORM O2 SATURATION LEVEL ON ADMISSION AND PRN FOR SOB FOR RN TO ASSESS/TRIAL JUSTICE TO OBSERVE PATIENT, WITH NOTIFICATION TO THE PHYSICIAN IF SATURATION IS 90% IN THE ABSENCE OF MORE SPECIFIC PARAMETERS FROM THE PHYSICIAN. AGENCY MAY PERFORM A RESUMPTION OF CARE VISIT FOLLOWING ANY HOSPITAL ADMISSION. RN/TRIAL JUSTICE/CHUCK SPLITTER TO MONITOR CO-MORBID CONDITIONS LISTED ON THE PLAN OF CARE AND ANY NEW CONDITIONS THAT PRESENT THEMSELVES DURING THIS EPISODE TO IDENTIFY CHANGES AND INTERVENE TO MINIMIZE COMPLICATIONS.] Future Scheduled Test MEDICATION MANAGEMENT; RN/TRIAL JUSTICE/CHUCK SPLITTER TO REVIEW MEDICATIONS FOR INTERACTIONS, EFFECTIVENESS OF DRUG THERAPY, AND SIGNS/SYMPTOMS OF ADVERSE REACTIONS. MAY INSTRUCT AND REINFORCE MEDICATION TEACHING RELATED TO THE USE OF MEDICATIONS, DOSAGE, FREQUENCY, PURPOSE, SIDE EFFECTS, AND TO REPORT COMPLICATIONS. [code = MEDICATION MANAGEMENT; RN/TRIAL JUSTICE/CHUCK SPLITTER TO REVIEW MEDICATIONS FOR INTERACTIONS, EFFECTIVENESS OF DRUG THERAPY, AND SIGNS/SYMPTOMS OF ADVERSE REACTIONS. MAY INSTRUCT AND REINFORCE MEDICATION TEACHING RELATED TO THE USE OF MEDICATIONS, DOSAGE, FREQUENCY, PURPOSE, SIDE EFFECTS, AND TO REPORT COMPLICATIONS.] Future Scheduled Test CARDIOVASC ULAR SYSTEM; RN TO ASSESS/TEACH, TRIAL JUSTICE/CHUCK SPLITTER TO OBSERVE/TEACH RELATED TO ALTERED CARDIOVASCULAR STATUS TO MINIMIZE COMPLICATIONS AND REDUCE HOSPITALIZATION. [code = CARDIOVASCULAR SYSTEM; RN TO ASSESS/TEACH, TRIAL JUSTICE/CHUCK SPLITTER TO OBSERVE/TEACH RELATED TO ALTERED CARDIOVASCULAR STATUS TO MINIMIZE COMPLICATIONS AND REDUCE HOSPITALIZATION.] Future Scheduled Test HEART FAIL URE; RN TO ASSESS/TEACH, TRIAL JUSTICE/CHUCK SPLITTER TO OBSERVE/TEACH CARDIOPULMONARY SYSTEM TO IDENTIFY SIGNS [...] [code = HEART FAILURE; RN TO ASSESS/TEACH, TRIAL JUSTICE/CHUCK SPLITTER TO OBSERVE/TEACH CARDIOPULMONARY SYSTEM TO IDENTIFY SIGNS [...] IF NEEDED.] Future Scheduled Test PACEMAKER MANAGEMENT; RN/TRIAL JUSTICE/CHUCK SPLITTER TO PROVIDE SKILLED TEACHING AND ASSIST WITH MANAGEMENT OF PACEMAKER. [code = PACEMAKER MANAGEMENT; RN/TRIAL JUSTICE/CHUCK SPLITTER TO PROVIDE SKILLED TEACHING AND ASSIST WITH MANAGEMENT OF PACEMAKER.] Future Scheduled Test RESPIRATOR Y SYSTEM MANAGEMENT; RN TO ASSESS AND TEACH, TRIAL JUSTICE/CHUCK SPLITTER TO OBSERVE AND TEACH RELATED TO ALTERED RESPIRATORY STATUS TO MINIMIZE COMPLICATIONS AND REDUCE HOSPITALIZATION. [code = RESPIRATORY SYSTEM MANAGEMENT; RN TO ASSESS AND TEACH, TRIAL JUSTICE/CHUCK SPLITTER TO OBSERVE AND TEACH RELATED TO ALTERED RESPIRATORY STATUS TO MINIMIZE COMPLICATIONS AND REDUCE HOSPITALIZATION.] Future Scheduled Test OXYGEN THE RAPY; RN/TRIAL JUSTICE/CHUCK SPLITTER TO INSTRUCT ON OXYGEN MANAGEMENT INCLUDING: ADMINISTRATION AT 3L/MIN VIA CONCENTRATOR [employer] FOR CARE OF EQUIPMENT AND SAFETY. [code = OXYGEN THERAPY; RN/TRIAL JUSTICE/CHUCK SPLITTER TO INSTRUCT ON OXYGEN MANAGEMENT INCLUDING: ADMINISTRATION AT 3L/MIN VIA CONCENTRATOR [employer] FOR CARE OF EQUIPMENT AND SAFETY.] Future Scheduled Test PAIN MANAG EMENT; RN TO ASSESS AND TEACH, CHUCK SPLITTER/TRIAL JUSTICE TO OBSERVE AND TEACH AND PROVIDE EDUCATION ON PAIN MANAGEMENT TECHNIQUES. [code = PAIN MANAGEMENT; RN TO ASSESS AND TEACH, CHUCK SPLITTER/TRIAL JUSTICE TO OBSERVE AND TEACH AND PROVIDE EDUCATION ON PAIN MANAGEMENT TECHNIQUES.] Future Scheduled Test FALL REDUC TION MANAGEMENT; RN TO ASSESS AND OBSERVE, TRIAL JUSTICE/CHUCK SPLITTER TO OBSERVE FALL RISK FACTORS AND EDUCATE PATIENT/CAREGIVER ON STRATEGIES TO MINIMIZE THE RISK OF FALLING. [code = FALL REDUCTION MANAGEMENT; RN TO ASSESS AND OBSERVE, TRIAL JUSTICE/CHUCK SPLITTER TO OBSERVE FALL RISK FACTORS AND EDUCATE PATIENT/CAREGIVER ON STRATEGIES TO MINIMIZE THE RISK OF FALLING.] Future Scheduled Test RN/TRIAL JUSTICE/CHUCK SPLITTER TO PERFORM/TEACH PATIENT/CAREGIVER WOUND CARE TO EXCORIATED BILATERAL INNER THIGHS IRRIGATE/CLEANSE SOAP AND WATER RINSE WELL AND DRY APPLY MEDICATED POWDER TWICE DAILY AND PRN [code = RN/TRIAL JUSTICE/CHUCK SPLITTER TO PERFORM/TEACH PATIENT/CAREGIVER WOUND CARE TO EXCORIATED [...] AND ADJUSTMENT TO CARE. [code = MEDICAL FILTRATION PLANT MECHANIC FOR EVALUATION TO ASSESS SOCIAL AND EMOTIONAL FACTORS RELATED TO THE PATIENT'S ILLNESS, NEED FOR CARE, RESPONSE TO TREATMENT AND ADJUSTMENT TO CARE.] Future Scheduled Test AGENCY MAY PERFORM A RESUMPTION OF CARE VISIT FOLLOWING ANY HOSPITAL ADMISSION. PT TO EVALUATE, OBSERVE / ASSESS, AND MONITOR, RECONCILIATION COORDINATOR TO OBSERVE AND MONITOR, PROVIDE SKILLED THERAPEUTIC INTERVENTION, ACTIVITY, EDUCATION, AND TRAINING TO ADDRESS; PT/RECONCILIATION COORDINATOR TO PROVIDE GAIT TRAINING FOR IMPROVED MOBILITY AND /OR TO NORMALIZE GAIT PATTERN THERAPEUTIC EXERCISES AND ESTABLISHING A HOME EXERCISE PROGRAM (PT/RECONCILIATION COORDINATOR) SIT TO/FROM STAND TRANSFERS (PT/RECONCILIATION COORDINATOR) PT / RECONCILIATION COORDINATOR TO MONITOR AND EDUCATE ON OXYGEN SATURATION DURING ADLS/IADLS, NOTIFY PHYSICIAN AND/OR THE RN CLINICAL MACHINE GRAINER FOR PHYSICIAN NOTIFICATION AND IF O2 SATS BELOW PHYSICIAN ORDERED PARAMETERS AFTER 10 MIN OF REST PT / RECONCILIATION COORDINATOR TO INSTRUCT PATIENT/CAREGIVER ON RISK FOR HOSPITALIZATION/EMERGENCY ROOM VISITS, TEACH SIGNS AND SYMPTOMS THAT PUT PATIENT AT RISK, WHEN TO NOTIFY NURSE/PHYSICIAN OF COMPLICATIONS/DECLINE, AND WHEN TO CALL 911. PT TO ASSESS / RECONCILIATION COORDINATOR TO MONITOR CARDIO/RESPIRATORY SYSTEM; AND NOTIFY THE PHYSICIAN AND/OR THE RN CLINICAL MACHINE GRAINER FOR PHYSICIAN NOTIFICATION FOR EARLY SIGNS AND SYMPTOMS OF EXACERBATION OR DETERIORATION. PT / RECONCILIATION COORDINATOR TO EDUCATE ON PACEMAKER SELF-MANAGEMENT PT/RECONCILIATION COORDINATOR TO IDENTIFY FALL RISK FACTORS; EDUCATE THE PATIENT/CAREGIVER ON WAYS TO REDUCE FALL RISK FACTORS AND ESTABLISH HOME EXERCISE PROGRAM TO MINIMIZE FALL RISK. MAY TEACH THE PATIENT FLOOR RECOVERY WHEN CLINICALLY APPROPRIATE [code = AGENCY MAY PERFORM A RESUMPTION OF CARE VISIT FOLLOWING ANY HOSPITAL ADMISSION. PT TO EVALUATE, OBSERVE / ASSESS, AND MONITOR, RECONCILIATION COORDINATOR TO OBSERVE AND MONITOR, PROVIDE SKILLED THERAPEUTIC INTERVENTION, ACTIVITY, EDUCATION, AND TRAINING TO ADDRESS; PT/RECONCILIATION COORDINATOR TO PROVIDE GAIT TRAINING FOR IMPROVED MOBILITY AND /OR TO NORMALIZE GAIT PATTERN THERAPEUTIC EXERCISES AND ESTABLISHING A HOME EXERCISE PROGRAM (PT/RECONCILIATION COORDINATOR) SIT TO/FROM STAND TRANSFERS (PT/RECONCILIATION COORDINATOR) PT / RECONCILIATION COORDINATOR TO MONITOR AND EDUCATE ON OXYGEN SATURATION DURING ADLS/IADLS, NOTIFY PHYSICIAN AND/OR THE RN CLINICAL MACHINE GRAINER FOR PHYSICIAN NOTIFICATION AND IF O2 SATS BELOW PHYSICIAN ORDERED PARAMETERS AFTER 10 MIN OF REST PT / RECONCILIATION COORDINATOR TO INSTRUCT PATIENT/CAREGIVER ON RISK FOR HOSPITALIZATION/EMERGENCY ROOM VISITS, TEACH SIGNS AND SYMPTOMS THAT PUT PATIENT AT RISK, WHEN TO NOTIFY NURSE/PHYSICIAN OF COMPLICATIONS/DECLINE, AND WHEN TO CALL 911. PT TO ASSESS / RECONCILIATION COORDINATOR TO MONITOR CARDIO/RESPIRATORY SYSTEM; AND NOTIFY THE PHYSICIAN AND/OR THE RN CLINICAL MACHINE GRAINER FOR PHYSICIAN NOTIFICATION FOR EARLY SIGNS AND SYMPTOMS OF EXACERBATION OR DETERIORATION. PT / RECONCILIATION COORDINATOR TO EDUCATE ON PACEMAKER SELF-MANAGEMENT PT/RECONCILIATION COORDINATOR TO IDENTIFY FALL RISK FACTORS; EDUCATE THE PATIENT/CAREGIVER ON WAYS TO REDUCE FALL RISK FACTORS AND ESTABLISH HOME EXERCISE PROGRAM TO MINIMIZE FALL RISK. MAY TEACH THE PATIENT FLOOR RECOVERY WHEN CLINICALLY APPROPRIATE] Future Scheduled Test MEDICAL SO CIAL SERVICES FOR COMMUNITY RESOURCE PLANNING. [code = MEDICAL FILTRATION PLANT MECHANIC FOR COMMUNITY RESOURCE PLANNING.] Goal Patient Goal [...] End Date/Time Encounter Type Admission Type Attending [facility] Care Facility Care Department Encounter ID Discharge Date Discharge Status Discharge Condition Discharge Reason Percent Goals Met 2024-12-13 00:00:00 2025-02-10 00:00:00 Outpatient NEW ADMISSION DEBRA CASTELLON [facility] [id number] 66.67
--- OUTSIDE RECORDS SUMMARY | 2025-02-09 20:00 | XMS_ITS | Clinical Summary ---
Author Organization Unknown Care Team Providers Care Drawer In Jacquard Loom Name Role Phone KAYLEN DO, KADE Unavailable Unavailable RAVINDER PT, DEBRA Unavailable Unavailable INNA HOSE TURNER, CHAPIS Unavailable Unavailable ELINOR OT, JAIME Unavailable Unavailable Payers Payer Name Policy Type Policy Number Effective Date Expira tion Date [facility]..AUTH [id number] Problems Condition Name Condition Details Condition Category [...] PHYSICIANS PCP RN TO OBSERVE AND ASSESS, CAPACITY PLANNER/CORPORATE COUNSEL TO OBSERVE FOR RISK FOR FALLS AND INSTRUCT IN FALL PREVENTION, HOME SAFETY, MEDICATION MANAGEMENT, INFECTION PREVENTION, AND NUTRITION MANAGEMENT. RN/CAPACITY PLANNER/CORPORATE COUNSEL NURSE MAY PERFORM O2 SATURATION LEVEL ON ADMISSION AND PRN FOR SOB FOR RN TO ASSESS/CAPACITY PLANNER TO OBSERVE PATIENT, WITH NOTIFICATION TO THE PHYSICIAN IF SATURATION IS 90% IN THE ABSENCE OF MORE SPECIFIC PARAMETERS FROM THE PHYSICIAN. AGENCY MAY PERFORM A RESUMPTION OF CARE VISIT FOLLOWING ANY HOSPITAL ADMISSION. RN/CAPACITY PLANNER/CORPORATE COUNSEL TO MONITOR CO-MORBID CONDITIONS LISTED ON THE PLAN OF CARE AND ANY NEW CONDITIONS THAT PRESENT THEMSELVES DURING THIS EPISODE TO IDENTIFY CHANGES AND INTERVENE TO MINIMIZE COMPLICATIONS. [code = RN TO OBSERVE, ASSESS, EVALUATE, AND DEVELOP AN INDIVIDUALIZED PLAN OF CARE. AGENCY MAY ACCEPT ORDERS FROM CONSULTING PHYSICIANS PCP RN TO OBSERVE AND ASSESS, CAPACITY PLANNER/CORPORATE COUNSEL TO OBSERVE FOR RISK FOR FALLS AND INSTRUCT IN FALL PREVENTION, HOME SAFETY, MEDICATION MANAGEMENT, INFECTION PREVENTION, AND NUTRITION MANAGEMENT. RN/CAPACITY PLANNER/CORPORATE COUNSEL NURSE MAY PERFORM O2 SATURATION LEVEL ON ADMISSION AND PRN FOR SOB FOR RN TO ASSESS/CAPACITY PLANNER TO OBSERVE PATIENT, WITH NOTIFICATION TO THE PHYSICIAN IF SATURATION IS 90% IN THE ABSENCE OF MORE SPECIFIC PARAMETERS FROM THE PHYSICIAN. AGENCY MAY PERFORM A RESUMPTION OF CARE VISIT FOLLOWING ANY HOSPITAL ADMISSION. RN/CAPACITY PLANNER/CORPORATE COUNSEL TO MONITOR CO-MORBID CONDITIONS LISTED ON THE PLAN OF CARE AND ANY NEW CONDITIONS THAT PRESENT THEMSELVES DURING THIS EPISODE TO IDENTIFY CHANGES AND INTERVENE TO MINIMIZE COMPLICATIONS.] Future Scheduled Test MEDICATION MANAGEMENT; RN/CAPACITY PLANNER/CORPORATE COUNSEL TO REVIEW MEDICATIONS FOR INTERACTIONS, EFFECTIVENESS OF DRUG THERAPY, AND SIGNS/SYMPTOMS OF ADVERSE REACTIONS. MAY INSTRUCT AND REINFORCE MEDICATION TEACHING RELATED TO THE USE OF MEDICATIONS, DOSAGE, FREQUENCY, PURPOSE, SIDE EFFECTS, AND TO REPORT COMPLICATIONS. [code = MEDICATION MANAGEMENT; RN/CAPACITY PLANNER/CORPORATE COUNSEL TO REVIEW MEDICATIONS FOR INTERACTIONS, EFFECTIVENESS OF DRUG THERAPY, AND SIGNS/SYMPTOMS OF ADVERSE REACTIONS. MAY INSTRUCT AND REINFORCE MEDICATION TEACHING RELATED TO THE USE OF MEDICATIONS, DOSAGE, FREQUENCY, PURPOSE, SIDE EFFECTS, AND TO REPORT COMPLICATIONS.] Future Scheduled Test CARDIOVASC ULAR SYSTEM; RN TO ASSESS/TEACH, CAPACITY PLANNER/CORPORATE COUNSEL TO OBSERVE/TEACH RELATED TO ALTERED CARDIOVASCULAR STATUS TO MINIMIZE COMPLICATIONS AND REDUCE HOSPITALIZATION. [code = CARDIOVASCULAR SYSTEM; RN TO ASSESS/TEACH, CAPACITY PLANNER/CORPORATE COUNSEL TO OBSERVE/TEACH RELATED TO ALTERED CARDIOVASCULAR STATUS TO MINIMIZE COMPLICATIONS AND REDUCE HOSPITALIZATION.] Future Scheduled Test HEART FAIL URE; RN TO ASSESS/TEACH, CAPACITY PLANNER/CORPORATE COUNSEL TO OBSERVE/TEACH CARDIOPULMONARY SYSTEM TO IDENTIFY SIGNS [...] [code = HEART FAILURE; RN TO ASSESS/TEACH, CAPACITY PLANNER/CORPORATE COUNSEL TO OBSERVE/TEACH CARDIOPULMONARY SYSTEM TO IDENTIFY SIGNS [...] IF NEEDED.] Future Scheduled Test PACEMAKER MANAGEMENT; RN/CAPACITY PLANNER/CORPORATE COUNSEL TO PROVIDE SKILLED TEACHING AND ASSIST WITH MANAGEMENT OF PACEMAKER. [code = PACEMAKER MANAGEMENT; RN/CAPACITY PLANNER/CORPORATE COUNSEL TO PROVIDE SKILLED TEACHING AND ASSIST WITH MANAGEMENT OF PACEMAKER.] Future Scheduled Test RESPIRATOR Y SYSTEM MANAGEMENT; RN TO ASSESS AND TEACH, CAPACITY PLANNER/CORPORATE COUNSEL TO OBSERVE AND TEACH RELATED TO ALTERED RESPIRATORY STATUS TO MINIMIZE COMPLICATIONS AND REDUCE HOSPITALIZATION. [code = RESPIRATORY SYSTEM MANAGEMENT; RN TO ASSESS AND TEACH, CAPACITY PLANNER/CORPORATE COUNSEL TO OBSERVE AND TEACH RELATED TO ALTERED RESPIRATORY STATUS TO MINIMIZE COMPLICATIONS AND REDUCE HOSPITALIZATION.] Future Scheduled Test OXYGEN THE RAPY; RN/CAPACITY PLANNER/CORPORATE COUNSEL TO INSTRUCT ON OXYGEN MANAGEMENT INCLUDING: ADMINISTRATION AT 3L/MIN VIA CONCENTRATOR [employer] FOR CARE OF EQUIPMENT AND SAFETY. [code = OXYGEN THERAPY; RN/CAPACITY PLANNER/CORPORATE COUNSEL TO INSTRUCT ON OXYGEN MANAGEMENT INCLUDING: ADMINISTRATION AT 3L/MIN VIA CONCENTRATOR [employer] FOR CARE OF EQUIPMENT AND SAFETY.] Future Scheduled Test PAIN MANAG EMENT; RN TO ASSESS AND TEACH, CORPORATE COUNSEL/CAPACITY PLANNER TO OBSERVE AND TEACH AND PROVIDE EDUCATION ON PAIN MANAGEMENT TECHNIQUES. [code = PAIN MANAGEMENT; RN TO ASSESS AND TEACH, CORPORATE COUNSEL/CAPACITY PLANNER TO OBSERVE AND TEACH AND PROVIDE EDUCATION ON PAIN MANAGEMENT TECHNIQUES.] Future Scheduled Test FALL REDUC TION MANAGEMENT; RN TO ASSESS AND OBSERVE, CAPACITY PLANNER/CORPORATE COUNSEL TO OBSERVE FALL RISK FACTORS AND EDUCATE PATIENT/CAREGIVER ON STRATEGIES TO MINIMIZE THE RISK OF FALLING. [code = FALL REDUCTION MANAGEMENT; RN TO ASSESS AND OBSERVE, CAPACITY PLANNER/CORPORATE COUNSEL TO OBSERVE FALL RISK FACTORS AND EDUCATE PATIENT/CAREGIVER ON STRATEGIES TO MINIMIZE THE RISK OF FALLING.] Future Scheduled Test RN/CAPACITY PLANNER/CORPORATE COUNSEL TO PERFORM/TEACH PATIENT/CAREGIVER WOUND CARE TO EXCORIATED BILATERAL INNER THIGHS IRRIGATE/CLEANSE SOAP AND WATER RINSE WELL AND DRY APPLY MEDICATED POWDER TWICE DAILY AND PRN [code = RN/CAPACITY PLANNER/CORPORATE COUNSEL TO PERFORM/TEACH PATIENT/CAREGIVER WOUND CARE TO EXCORIATED [...] AND ADJUSTMENT TO CARE. [code = MEDICAL DELIVERER FOOD FOR EVALUATION TO ASSESS SOCIAL AND EMOTIONAL FACTORS RELATED TO THE PATIENT'S ILLNESS, NEED FOR CARE, RESPONSE TO TREATMENT AND ADJUSTMENT TO CARE.] Future Scheduled Test AGENCY MAY PERFORM A RESUMPTION OF CARE VISIT FOLLOWING ANY HOSPITAL ADMISSION. PT TO EVALUATE, OBSERVE / ASSESS, AND MONITOR, HOSE TURNER TO OBSERVE AND MONITOR, PROVIDE SKILLED THERAPEUTIC INTERVENTION, ACTIVITY, EDUCATION, AND TRAINING TO ADDRESS; PT/HOSE TURNER TO PROVIDE GAIT TRAINING FOR IMPROVED MOBILITY AND /OR TO NORMALIZE GAIT PATTERN THERAPEUTIC EXERCISES AND ESTABLISHING A HOME EXERCISE PROGRAM (PT/HOSE TURNER) SIT TO/FROM STAND TRANSFERS (PT/HOSE TURNER) PT / HOSE TURNER TO MONITOR AND EDUCATE ON OXYGEN SATURATION DURING ADLS/IADLS, NOTIFY PHYSICIAN AND/OR THE RN CLINICAL RECREATIONAL COUNSELOR FOR PHYSICIAN NOTIFICATION AND IF O2 SATS BELOW PHYSICIAN ORDERED PARAMETERS AFTER 10 MIN OF REST PT / HOSE TURNER TO INSTRUCT PATIENT/CAREGIVER ON RISK FOR HOSPITALIZATION/EMERGENCY ROOM VISITS, TEACH SIGNS AND SYMPTOMS THAT PUT PATIENT AT RISK, WHEN TO NOTIFY NURSE/PHYSICIAN OF COMPLICATIONS/DECLINE, AND WHEN TO CALL 911. PT TO ASSESS / HOSE TURNER TO MONITOR CARDIO/RESPIRATORY SYSTEM; AND NOTIFY THE PHYSICIAN AND/OR THE RN CLINICAL RECREATIONAL COUNSELOR FOR PHYSICIAN NOTIFICATION FOR EARLY SIGNS AND SYMPTOMS OF EXACERBATION OR DETERIORATION. PT / HOSE TURNER TO EDUCATE ON PACEMAKER SELF-MANAGEMENT PT/HOSE TURNER TO IDENTIFY FALL RISK FACTORS; EDUCATE THE PATIENT/CAREGIVER ON WAYS TO REDUCE FALL RISK FACTORS AND ESTABLISH HOME EXERCISE PROGRAM TO MINIMIZE FALL RISK. MAY TEACH THE PATIENT FLOOR RECOVERY WHEN CLINICALLY APPROPRIATE [code = AGENCY MAY PERFORM A RESUMPTION OF CARE VISIT FOLLOWING ANY HOSPITAL ADMISSION. PT TO EVALUATE, OBSERVE / ASSESS, AND MONITOR, HOSE TURNER TO OBSERVE AND MONITOR, PROVIDE SKILLED THERAPEUTIC INTERVENTION, ACTIVITY, EDUCATION, AND TRAINING TO ADDRESS; PT/HOSE TURNER TO PROVIDE GAIT TRAINING FOR IMPROVED MOBILITY AND /OR TO NORMALIZE GAIT PATTERN THERAPEUTIC EXERCISES AND ESTABLISHING A HOME EXERCISE PROGRAM (PT/HOSE TURNER) SIT TO/FROM STAND TRANSFERS (PT/HOSE TURNER) PT / HOSE TURNER TO MONITOR AND EDUCATE ON OXYGEN SATURATION DURING ADLS/IADLS, NOTIFY PHYSICIAN AND/OR THE RN CLINICAL RECREATIONAL COUNSELOR FOR PHYSICIAN NOTIFICATION AND IF O2 SATS BELOW PHYSICIAN ORDERED PARAMETERS AFTER 10 MIN OF REST PT / HOSE TURNER TO INSTRUCT PATIENT/CAREGIVER ON RISK FOR HOSPITALIZATION/EMERGENCY ROOM VISITS, TEACH SIGNS AND SYMPTOMS THAT PUT PATIENT AT RISK, WHEN TO NOTIFY NURSE/PHYSICIAN OF COMPLICATIONS/DECLINE, AND WHEN TO CALL 911. PT TO ASSESS / HOSE TURNER TO MONITOR CARDIO/RESPIRATORY SYSTEM; AND NOTIFY THE PHYSICIAN AND/OR THE RN CLINICAL RECREATIONAL COUNSELOR FOR PHYSICIAN NOTIFICATION FOR EARLY SIGNS AND SYMPTOMS OF EXACERBATION OR DETERIORATION. PT / HOSE TURNER TO EDUCATE ON PACEMAKER SELF-MANAGEMENT PT/HOSE TURNER TO IDENTIFY FALL RISK FACTORS; EDUCATE THE PATIENT/CAREGIVER ON WAYS TO REDUCE FALL RISK FACTORS AND ESTABLISH HOME EXERCISE PROGRAM TO MINIMIZE FALL RISK. MAY TEACH THE PATIENT FLOOR RECOVERY WHEN CLINICALLY APPROPRIATE] Future Scheduled Test MEDICAL SO CIAL SERVICES FOR COMMUNITY RESOURCE PLANNING. [code = MEDICAL DELIVERER FOOD FOR COMMUNITY RESOURCE PLANNING.] Goal Patient Goal [...] End Date/Time Encounter Type Admission Type Attending [facility] Care Facility Care Department Encounter ID Discharge Date Discharge Status Discharge Condition Discharge Reason Percent Goals Met 2024-12-13 00:00:00 2025-02-10 00:00:00 Outpatient NEW ADMISSION DEBRA CASTELLON [facility] [id number] 66.67
--- OUTSIDE RECORDS SUMMARY | 2025-02-09 20:00 | XMS_ITS | Clinical Summary ---
Author Organization Unknown Care Team Providers Care Supervisor Mails Name Role Phone KAYLEN DO, KADE Unavailable Unavailable RAVINDER PT, DEBRA Unavailable Unavailable [employer] ASSEMBLER AIRCRAFT POWER PLANT, CHAPIS Unavailable Unavailable ELINOR OT, JAIME Unavailable Unavailable Payers Payer Name Policy Type Policy Number Effective Date Expira tion Date [facility]AUTH [id number] Problems Condition Name Condition Details Condition Category [...] PHYSICIANS PCP RN TO OBSERVE AND ASSESS, NEONATAL CRITICAL CARE NURSE/COMPLETIONS MANAGER TO OBSERVE FOR RISK FOR FALLS AND INSTRUCT IN FALL PREVENTION, HOME SAFETY, MEDICATION MANAGEMENT, INFECTION PREVENTION, AND NUTRITION MANAGEMENT. RN/NEONATAL CRITICAL CARE NURSE/COMPLETIONS MANAGER NURSE MAY PERFORM O2 SATURATION LEVEL ON ADMISSION AND PRN FOR SOB FOR RN TO ASSESS/NEONATAL CRITICAL CARE NURSE TO OBSERVE PATIENT, WITH NOTIFICATION TO THE PHYSICIAN IF SATURATION IS 90% IN THE ABSENCE OF MORE SPECIFIC PARAMETERS FROM THE PHYSICIAN. AGENCY MAY PERFORM A RESUMPTION OF CARE VISIT FOLLOWING ANY HOSPITAL ADMISSION. RN/NEONATAL CRITICAL CARE NURSE/COMPLETIONS MANAGER TO MONITOR CO-MORBID CONDITIONS LISTED ON THE PLAN OF CARE AND ANY NEW CONDITIONS THAT PRESENT THEMSELVES DURING THIS EPISODE TO IDENTIFY CHANGES AND INTERVENE TO MINIMIZE COMPLICATIONS. [code = RN TO OBSERVE, ASSESS, EVALUATE, AND DEVELOP AN INDIVIDUALIZED PLAN OF CARE. AGENCY MAY ACCEPT ORDERS FROM CONSULTING PHYSICIANS PCP RN TO OBSERVE AND ASSESS, NEONATAL CRITICAL CARE NURSE/COMPLETIONS MANAGER TO OBSERVE FOR RISK FOR FALLS AND INSTRUCT IN FALL PREVENTION, HOME SAFETY, MEDICATION MANAGEMENT, INFECTION PREVENTION, AND NUTRITION MANAGEMENT. RN/NEONATAL CRITICAL CARE NURSE/COMPLETIONS MANAGER NURSE MAY PERFORM O2 SATURATION LEVEL ON ADMISSION AND PRN FOR SOB FOR RN TO ASSESS/NEONATAL CRITICAL CARE NURSE TO OBSERVE PATIENT, WITH NOTIFICATION TO THE PHYSICIAN IF SATURATION IS 90% IN THE ABSENCE OF MORE SPECIFIC PARAMETERS FROM THE PHYSICIAN. AGENCY MAY PERFORM A RESUMPTION OF CARE VISIT FOLLOWING ANY HOSPITAL ADMISSION. RN/NEONATAL CRITICAL CARE NURSE/COMPLETIONS MANAGER TO MONITOR CO-MORBID CONDITIONS LISTED ON THE PLAN OF CARE AND ANY NEW CONDITIONS THAT PRESENT THEMSELVES DURING THIS EPISODE TO IDENTIFY CHANGES AND INTERVENE TO MINIMIZE COMPLICATIONS.] Future Scheduled Test MEDICATION MANAGEMENT; RN/NEONATAL CRITICAL CARE NURSE/COMPLETIONS MANAGER TO REVIEW MEDICATIONS FOR INTERACTIONS, EFFECTIVENESS OF DRUG THERAPY, AND SIGNS/SYMPTOMS OF ADVERSE REACTIONS. MAY INSTRUCT AND REINFORCE MEDICATION TEACHING RELATED TO THE USE OF MEDICATIONS, DOSAGE, FREQUENCY, PURPOSE, SIDE EFFECTS, AND TO REPORT COMPLICATIONS. [code = MEDICATION MANAGEMENT; RN/NEONATAL CRITICAL CARE NURSE/COMPLETIONS MANAGER TO REVIEW MEDICATIONS FOR INTERACTIONS, EFFECTIVENESS OF DRUG THERAPY, AND SIGNS/SYMPTOMS OF ADVERSE REACTIONS. MAY INSTRUCT AND REINFORCE MEDICATION TEACHING RELATED TO THE USE OF MEDICATIONS, DOSAGE, FREQUENCY, PURPOSE, SIDE EFFECTS, AND TO REPORT COMPLICATIONS.] Future Scheduled Test CARDIOVASC ULAR SYSTEM; RN TO ASSESS/TEACH, NEONATAL CRITICAL CARE NURSE/COMPLETIONS MANAGER TO OBSERVE/TEACH RELATED TO ALTERED CARDIOVASCULAR STATUS TO MINIMIZE COMPLICATIONS AND REDUCE HOSPITALIZATION. [code = CARDIOVASCULAR SYSTEM; RN TO ASSESS/TEACH, NEONATAL CRITICAL CARE NURSE/COMPLETIONS MANAGER TO OBSERVE/TEACH RELATED TO ALTERED CARDIOVASCULAR STATUS TO MINIMIZE COMPLICATIONS AND REDUCE HOSPITALIZATION.] Future Scheduled Test HEART FAIL URE; RN TO ASSESS/TEACH, NEONATAL CRITICAL CARE NURSE/COMPLETIONS MANAGER TO OBSERVE/TEACH CARDIOPULMONARY SYSTEM TO IDENTIFY SIGNS [...] [code = HEART FAILURE; RN TO ASSESS/TEACH, NEONATAL CRITICAL CARE NURSE/COMPLETIONS MANAGER TO OBSERVE/TEACH CARDIOPULMONARY SYSTEM TO IDENTIFY SIGNS [...] IF NEEDED.] Future Scheduled Test PACEMAKER MANAGEMENT; RN/NEONATAL CRITICAL CARE NURSE/COMPLETIONS MANAGER TO PROVIDE SKILLED TEACHING AND ASSIST WITH MANAGEMENT OF PACEMAKER. [code = PACEMAKER MANAGEMENT; RN/NEONATAL CRITICAL CARE NURSE/COMPLETIONS MANAGER TO PROVIDE SKILLED TEACHING AND ASSIST WITH MANAGEMENT OF PACEMAKER.] Future Scheduled Test RESPIRATOR Y SYSTEM MANAGEMENT; RN TO ASSESS AND TEACH, NEONATAL CRITICAL CARE NURSE/COMPLETIONS MANAGER TO OBSERVE AND TEACH RELATED TO ALTERED RESPIRATORY STATUS TO MINIMIZE COMPLICATIONS AND REDUCE HOSPITALIZATION. [code = RESPIRATORY SYSTEM MANAGEMENT; RN TO ASSESS AND TEACH, NEONATAL CRITICAL CARE NURSE/COMPLETIONS MANAGER TO OBSERVE AND TEACH RELATED TO ALTERED RESPIRATORY STATUS TO MINIMIZE COMPLICATIONS AND REDUCE HOSPITALIZATION.] Future Scheduled Test OXYGEN THE RAPY; RN/NEONATAL CRITICAL CARE NURSE/COMPLETIONS MANAGER TO INSTRUCT ON OXYGEN MANAGEMENT INCLUDING: ADMINISTRATION AT 3L/MIN VIA CONCENTRATOR [employer] FOR CARE OF EQUIPMENT AND SAFETY. [code = OXYGEN THERAPY; RN/NEONATAL CRITICAL CARE NURSE/COMPLETIONS MANAGER TO INSTRUCT ON OXYGEN MANAGEMENT INCLUDING: ADMINISTRATION AT 3L/MIN VIA CONCENTRATOR [employer] FOR CARE OF EQUIPMENT AND SAFETY.] Future Scheduled Test PAIN MANAG EMENT; RN TO ASSESS AND TEACH, COMPLETIONS MANAGER/NEONATAL CRITICAL CARE NURSE TO OBSERVE AND TEACH AND PROVIDE EDUCATION ON PAIN MANAGEMENT TECHNIQUES. [code = PAIN MANAGEMENT; RN TO ASSESS AND TEACH, COMPLETIONS MANAGER/NEONATAL CRITICAL CARE NURSE TO OBSERVE AND TEACH AND PROVIDE EDUCATION ON PAIN MANAGEMENT TECHNIQUES.] Future Scheduled Test FALL REDUC TION MANAGEMENT; RN TO ASSESS AND OBSERVE, NEONATAL CRITICAL CARE NURSE/COMPLETIONS MANAGER TO OBSERVE FALL RISK FACTORS AND EDUCATE PATIENT/CAREGIVER ON STRATEGIES TO MINIMIZE THE RISK OF FALLING. [code = FALL REDUCTION MANAGEMENT; RN TO ASSESS AND OBSERVE, NEONATAL CRITICAL CARE NURSE/COMPLETIONS MANAGER TO OBSERVE FALL RISK FACTORS AND EDUCATE PATIENT/CAREGIVER ON STRATEGIES TO MINIMIZE THE RISK OF FALLING.] Future Scheduled Test RN/NEONATAL CRITICAL CARE NURSE/COMPLETIONS MANAGER TO PERFORM/TEACH PATIENT/CAREGIVER WOUND CARE TO EXCORIATED BILATERAL INNER THIGHS IRRIGATE/CLEANSE SOAP AND WATER RINSE WELL AND DRY APPLY MEDICATED POWDER TWICE DAILY AND PRN [code = RN/NEONATAL CRITICAL CARE NURSE/COMPLETIONS MANAGER TO PERFORM/TEACH PATIENT/CAREGIVER WOUND CARE TO EXCORIATED [...] AND ADJUSTMENT TO CARE. [code = MEDICAL PRODUCT INTRODUCTION MANAGER FOR EVALUATION TO ASSESS SOCIAL AND EMOTIONAL FACTORS RELATED TO THE PATIENT'S ILLNESS, NEED FOR CARE, RESPONSE TO TREATMENT AND ADJUSTMENT TO CARE.] Future Scheduled Test AGENCY MAY PERFORM A RESUMPTION OF CARE VISIT FOLLOWING ANY HOSPITAL ADMISSION. PT TO EVALUATE, OBSERVE / ASSESS, AND MONITOR, ASSEMBLER AIRCRAFT POWER PLANT TO OBSERVE AND MONITOR, PROVIDE SKILLED THERAPEUTIC INTERVENTION, ACTIVITY, EDUCATION, AND TRAINING TO ADDRESS; PT/ASSEMBLER AIRCRAFT POWER PLANT TO PROVIDE GAIT TRAINING FOR IMPROVED MOBILITY AND /OR TO NORMALIZE GAIT PATTERN THERAPEUTIC EXERCISES AND ESTABLISHING A HOME EXERCISE PROGRAM (PT/ASSEMBLER AIRCRAFT POWER PLANT) SIT TO/FROM STAND TRANSFERS (PT/ASSEMBLER AIRCRAFT POWER PLANT) PT / ASSEMBLER AIRCRAFT POWER PLANT TO MONITOR AND EDUCATE ON OXYGEN SATURATION DURING ADLS/IADLS, NOTIFY PHYSICIAN AND/OR THE RN CLINICAL PRESIDENT OF THE [place] FOR PHYSICIAN NOTIFICATION AND IF O2 SATS BELOW PHYSICIAN ORDERED PARAMETERS AFTER 10 MIN OF REST PT / ASSEMBLER AIRCRAFT POWER PLANT TO INSTRUCT PATIENT/CAREGIVER ON RISK FOR HOSPITALIZATION/EMERGENCY ROOM VISITS, TEACH SIGNS AND SYMPTOMS THAT PUT PATIENT AT RISK, WHEN TO NOTIFY NURSE/PHYSICIAN OF COMPLICATIONS/DECLINE, AND WHEN TO CALL 911. PT TO ASSESS / ASSEMBLER AIRCRAFT POWER PLANT TO MONITOR CARDIO/RESPIRATORY SYSTEM; AND NOTIFY THE PHYSICIAN AND/OR THE RN CLINICAL PRESIDENT OF THE [place] FOR PHYSICIAN NOTIFICATION FOR EARLY SIGNS AND SYMPTOMS OF EXACERBATION OR DETERIORATION. PT / ASSEMBLER AIRCRAFT POWER PLANT TO EDUCATE ON PACEMAKER SELF-MANAGEMENT PT/ASSEMBLER AIRCRAFT POWER PLANT TO IDENTIFY FALL RISK FACTORS; EDUCATE THE PATIENT/CAREGIVER ON WAYS TO REDUCE FALL RISK FACTORS AND ESTABLISH HOME EXERCISE PROGRAM TO MINIMIZE FALL RISK. MAY TEACH THE PATIENT FLOOR RECOVERY WHEN CLINICALLY APPROPRIATE [code = AGENCY MAY PERFORM A RESUMPTION OF CARE VISIT FOLLOWING ANY HOSPITAL ADMISSION. PT TO EVALUATE, OBSERVE / ASSESS, AND MONITOR, ASSEMBLER AIRCRAFT POWER PLANT TO OBSERVE AND MONITOR, PROVIDE SKILLED THERAPEUTIC INTERVENTION, ACTIVITY, EDUCATION, AND TRAINING TO ADDRESS; PT/ASSEMBLER AIRCRAFT POWER PLANT TO PROVIDE GAIT TRAINING FOR IMPROVED MOBILITY AND /OR TO NORMALIZE GAIT PATTERN THERAPEUTIC EXERCISES AND ESTABLISHING A HOME EXERCISE PROGRAM (PT/ASSEMBLER AIRCRAFT POWER PLANT) SIT TO/FROM STAND TRANSFERS (PT/ASSEMBLER AIRCRAFT POWER PLANT) PT / ASSEMBLER AIRCRAFT POWER PLANT TO MONITOR AND EDUCATE ON OXYGEN SATURATION DURING ADLS/IADLS, NOTIFY PHYSICIAN AND/OR THE RN CLINICAL PRESIDENT OF THE [place] FOR PHYSICIAN NOTIFICATION AND IF O2 SATS BELOW PHYSICIAN ORDERED PARAMETERS AFTER 10 MIN OF REST PT / ASSEMBLER AIRCRAFT POWER PLANT TO INSTRUCT PATIENT/CAREGIVER ON RISK FOR HOSPITALIZATION/EMERGENCY ROOM VISITS, TEACH SIGNS AND SYMPTOMS THAT PUT PATIENT AT RISK, WHEN TO NOTIFY NURSE/PHYSICIAN OF COMPLICATIONS/DECLINE, AND WHEN TO CALL 911. PT TO ASSESS / ASSEMBLER AIRCRAFT POWER PLANT TO MONITOR CARDIO/RESPIRATORY SYSTEM; AND NOTIFY THE PHYSICIAN AND/OR THE RN CLINICAL PRESIDENT OF THE [place] FOR PHYSICIAN NOTIFICATION FOR EARLY SIGNS AND SYMPTOMS OF EXACERBATION OR DETERIORATION. PT / ASSEMBLER AIRCRAFT POWER PLANT TO EDUCATE ON PACEMAKER SELF-MANAGEMENT PT/ASSEMBLER AIRCRAFT POWER PLANT TO IDENTIFY FALL RISK FACTORS; EDUCATE THE PATIENT/CAREGIVER ON WAYS TO REDUCE FALL RISK FACTORS AND ESTABLISH HOME EXERCISE PROGRAM TO MINIMIZE FALL RISK. MAY TEACH THE PATIENT FLOOR RECOVERY WHEN CLINICALLY APPROPRIATE] Future Scheduled Test MEDICAL SO CIAL SERVICES FOR COMMUNITY RESOURCE PLANNING. [code = MEDICAL PRODUCT INTRODUCTION MANAGER FOR COMMUNITY RESOURCE PLANNING.] Goal Patient Goal [...] End Date/Time Encounter Type Admission Type Attending [facility] Care Department Encounter ID Discharge Date Discharge Status Discharge Condition Discharge Reason Percent Goals Met 2024-12-13 00:00:00 2025-02-10 00:00:00 Outpatient NEW ADMISSION DEBRA CASTELLON [facility] [id number] 66.67
== END 2024-12-27 18:07 | disposition short-term general hospital (02) | DRG 291 ==
LOC: ER 16:47 → 2ND 17:52
PROVIDERS: Admitting Provider Student in an Organized Health Care Education/Training Program; Emergency Provider Student in an Organized Health Care Education/Training Program; Visit Provider Student in an Organized Health Care Education/Training Program
DX: I11.0 Hypertensive heart disease with heart failure (principal); I50.33 Acute on chronic diastolic (congestive) heart failure; J96.21 Acute and chronic respiratory failure with hypoxia; Z68.45 Body mass index [BMI] 70 or greater, adult; T82.120A Displacement of cardiac electrode, initial encounter; E66.2 Morbid (severe) obesity with alveolar hypoventilation; N95.0 Postmenopausal bleeding; I44.1 Atrioventricular block, second degree; E03.9 Hypothyroidism, unspecified; F32.A Depression, unspecified; Y71.2 Prosthetic and other implants, materials and accessory cardiovascular devices associated with adverse incidents; F41.9 Anxiety disorder, unspecified; J44.9 Chronic obstructive pulmonary disease, unspecified; R32 Unspecified urinary incontinence; R53.1 Weakness; Z74.09 Other reduced mobility; Z91.148 Patient's other noncompliance with medication regimen for other reason; Z88.8 Allergy status to other drugs, medicaments and biological substances; Z98.51 Tubal ligation status; Z79.84 Long term (current) use of oral hypoglycemic drugs; Z79.82 Long term (current) use of aspirin; Z79.85 Long-term (current) use of injectable non-insulin antidiabetic drugs; Z79.890 Hormone replacement therapy; Z79.899 Other long term (current) drug therapy
CPT/HCPCS: 36415; 51702; 71045; 76830; 80053; 81001; 82962; 83735; 83880; 84484; 85014; 85018; 85025; 93005; 93308; 94640; 97110; 97162; 97166; 97530; J1650; J1939; J2405; J2550; Q9957

== ENCOUNTER 2025-03-10 08:17 | Observation (INO) | payer MEDICARE, OTHER, SELFPAY ==
--- OUTSIDE RECORDS SUMMARY | 2025-01-07 11:00 | XMS_ITS | Encounter Summary ---
Author Organization [facility] Address [address] [place] [address] Care Team Providers Care Manager Farm Name Role Phone Brian Arguelles MD Primary Care Provider [phone] Vahid Garcia DO Primary Care Provider [phone] Reason for Referral * Consultation (Routine) - Authorized Specialty Diagnoses / Procedures Referred By Isabella t Referred To Contact Family Medicine Diagnoses Shock (CMS/HCC) Neo Viera MD [address] [place] [id number] Phone: tel: fax: Referral ID Status Reason Start Date Expiration Date V isits Requested Visits Authorized [id number] Authorized 01/14/2025 07/16/2026 1 1 * Home Health (Routine) - Authorized Specialty Diagnoses / Procedures [facility] Referred To Contact [facility] Health Services Diagnoses Shock (CMS/HCC) GWEN (acute kidney injury) (CMS/HCC) Abnormal uterine and vaginal bleeding, unspecified Morbid obesity with body mass index (BMI) of 40.0 or higher (CMS/HCC) Morbid obesity with body mass index (BMI) of 40.0 or higher (CMS/HCC) Neo Viera MD [address] [place] [id number] Phone: tel: fax: Referral ID Status Reason Start Date Expiration Date Visits Requested Visits Authorized [id number] Authorized Specialty Services Required 01/13/2025 07/15/2026 999 999 Reason for Visit * Reason Comments Hypotension * Auth/Cert (Routine) Specialty Diagnoses / Procedures Referred By Isabella turk Referred To Contact Diagnoses Shock (CMS/HCC) GWEN (acute kidney injury) (CMS/HCC) Chronic heart failure with preserved ejection fraction ([facility]) Neela Alexis MD [address] [phone] Phone: tel: fax: [facility] [address] [place] [address] Referral ID Status Reason Start Date Expiration Date Visits Re quested Visits Authorized [id number] 1 1 Encounter Details Date Type Department Care Team (Late st Contact Info) Description 01/07/2025 11:00 AM EDT - 01/14/2025 4:50 PM EDT Hospital Encounter [facility] Inpatient [address] [place] [address] Nadja Payne MD [address] [place] [address] vIis Juárez MD [address] [place] [address] Neela Alexis MD [address] [address] Madhav Lemus DO [address] [place] [address] John Denton MD [address] [place] [address] Neo Viera MD [address] [place] [address] Shock (CMS/HCC) (Primary Dx); GWEN (acute kidney injury) ([facility]); Chronic heart failure with preserved ejection fraction ([facility]); Abnormal uterine and vaginal bleeding, unspecified; Morbid obesity with body mass index (BMI) of 40.0 or higher ([facility]) [E66.01]; Class III obesity with body mass index (BMI) of 40.0 or higher ([facility]) Discharge Disposition: Home or Self Care Social History Tobacco Use Types Packs/Day Years Used Date Smoking Tobacco: Former Cigarettes Smokeless Tobacco: Never Tobacco Cessation:Counseling Given: Not Answered Alcohol Use Standard Drinks/Week Comments Never 0 (1 standard drink = 0.6 oz pur e alcohol) Humiliation, Afraid, Rape, and Kick questionnair e Answer Date Recorded Within the last year, have y ou been afraid of your partner or ex-partner? No 01/10/2025 Within the last year, have y ou been humiliated or emotionally abused in other ways by your partner or ex-partner? No Within the last year, have y ou been kicked, hit, slapped, or otherwise physically hurt by your partner or ex-partner? No 01/10/2025 Within the last year, have y ou been raped or forced to have any kind of sexual activity by your partner or ex-partner? No 01/10/2025 AUDIT-C Answer Date Recorded Q1: How often do you have a drink containing alcohol? Never 01/10/2025 Q2: How many drinks containi ng alcohol do you have on a typical day when you are drinking? Patient does not drink Q3: How often do you have si x or more drinks on one occasion? Never 01/10/2025 Hunger Vital Sign Answer Date Recorded Within the past 12 months, y ou worried that your food would run out before you got the money to buy more. Never true 01/11/20 25 Within the past 12 months, t he food you bought just didn't last and you didn't have money to get more. Never true 01/10/2025 PRAPARE - Transportation Answer Date Re corded In the past 12 months, has l ack of transportation kept you from medical appointments or from getting medications? No 12/19 In the past 12 months, has l ack of transportation kept you from meetings, work, or from getting things needed for daily living? No 01/10/2025 Housing Stability Vital Sign Answer Vihs e Recorded In the last 12 months, was t here a time when you were not able to pay the mortgage or rent on time? No 01/10/2025 In the past 12 months, how m any times have you moved where you were living? 0 01/10/2025 At any time in the past 12 m [place], were you homeless or living in a fci (including now)? No 01/10/2025 Utilities Answer Date Recorded In the past 12 months has th e [employer], gas, oil, or water company threatened to shut off services in your home? No 01/10/2025 Comments No Sex and Gender Information Value Date Recorded Sex Assigned at Not on file Legal Sex Female 7:51 PM EDT Gender Identity Not on file Sexual Orientation Not on file documented as of this encounter Last Filed Vital Signs Vital Sign Reading Time Taken Comments Blood Pressure 127/76 01/14/2025 11:58 AM EDT Pulse 95 01/14/2025 11:58 AM EDT Temperature 36.7 C (98 F) 01/14/2025 11:58 AM EDT Respiratory Rate 18 01/14/2025 7:46 AM EDT Oxygen Saturation 90% 01/14/2025 11:58 AM EDT Inhaled Oxygen Concentration - - Weight 189 kg (416 lb 3.7 oz) 01/14/2025 6:00 AM EDT Height 160 cm (5' 2.99 ) 01/13/2025 9:42 AM EDT Body Mass Index 73.75 01/13/2025 9:42 AM EDT documented in this encounter Functional Status * AUDIT-C Score Answer Date of Assessment Author 0 01/10/2025 5:12 PM EDT Edis Saini RN * Question Answer Date of Assessment Author Q1: How often do you have a drink containing alcohol? Never 01/10/2025 5:12 PM EDT Bi Saini RN Q2: How many drinks containing alcohol do you have on a typical day when you are drinking? Patient does not drink 01/10/2025 5:12 PM EDT Bi Saini RN Q3: How often do you have six or more drinks on one occasion? Never 01/10/2025 5:12 PM EDT Bi Saini RN * Calculated C-SSRS Risk Score (Lifetime/Recent) Answer Date of Assessment Author No Risk Indicated 01/13/2025 11:00 AM EDT Aleida Castillo RN * Question Answer Date of Assessment Author 1. Wish to be (Past 1 Month) No 01/13/2025 11:00 AM LEANAT Aleida Hobson RN 2. Non-Specific Active Suici wan Thoughts (Past 1 Month) No 01/13/2025 11:00 AM EDT Alphonso Hobson RN 6. Suicidal Behavior (Lifetime) No 11:00 AM EDT Aleida Hobson RN documented as of this encounter Discharge Instructions * Discharge Instructions* Aleida Ingram MD - 01/13/2025 10:13 AM EDT HYSTEROSCOPY POSTOP INSTRUCTIONS POST-OP APPT: You should have a post-op appointment in 4-6 weeks. Please call [phone] if you need to reschedule. ACTIVITY You may climb stairs as tolerated. Do not put anything in the vagina for 2 weeks after surgery unless otherwise instructed by your doctor (including tampons, douching, sexual intercourse, etc). PAIN MANAGEMENT You should take Ibuprofen 600 mg tab every 6 hours along with Tylenol 650 mg every 8 hours. (Alternated between the two medications every 4 hours to increase the pain coverage) After 72 hours (3 days) you may decrease the Ibuprofen and Tylenol to an as needed medication. Some pain medications can cause constipation so you should take a stool softener (i.e. Colace) while you are on these medications. You may also take Milk of Magnesia or Miralax for constipation. WHAT TO EXPECT AT HOME Recovery from surgery is generally a few days, but sometimes longer for more strenuous activity. Itis normal to be very tired during this time. It is normal to have some drainage or a small amount of vaginal bleeding after surgery which may last up to 6 weeks. WHEN TO CALL YOUR DOCTOR: Fever (>100.4 F or 38.0 C) or chills. Severe nausea or persistent vomiting. Bright red vaginal bleeding (soaking >1 pad/hour) or foul smelling vaginal drainage. Severe pain not relieved with pain medication. Pain and swelling in your legs, especially if it is only on one side and not the other. Pain with urination, cloudy urine, or foul smelling urine. Or if you have any other problems or questions. CALL 911 OR GO TO THE EMERGENCY ROOM IF YOU HAVE: Any shortness of breath, difficulty breathing, orchest pain. documented in this encounter Medications at Time of Discharge albuterol 108 (90 Base) MCG/ACT inhaler Inhale 2 puffs every 4 to 6 hours as needed for wheezing. aspirin 81 MG EC tablet Take 1 tablet by mouth daily. atorvastatin (Lipitor) 40 MG tablet Take 1 tablet by mouth daily. buPROPion SR (Wellbutrin SR) 200 MG 12 hr tablet Take 2 tablets by mouth daily. Do not crush, chew, or split. cyanocobalamin 1000 MCG tablet Take 1 tablet by mouth daily. Evolocumab (Repatha SureClick) 140 MG/ML solution auto-injector autoinjector Inject 1 mL under the skin every 14 days. Fluticasone-Umecl idin-Vilant (Trelegy Ellipta) 100-62.5-25 MCG/ACT aerosol powder Inhale 1 puff daily. ipratropium-albut brittani (Duo-Neb) 0.5-2.5 mg/3 mL nebulizer solution Take 3 mL by nebulization every 6 hours as needed for wheezing. levothyroxine (Synthroid, Levoxyl) 150 MCG tablet Take 2 tablets by mouth daily before breakfast. metFORMIN (Glucophage) 500 MG tablet Take 1 tablet by mouth 2 times a day with meals. miconazole (Micotin) 2 % powder Apply bid to rash 43 g 01/14/2025 midodrine (Proamatine) 10 MG tablet Take 1 tablet by mouth 3 times a day. 90 tablet 2 01/14/2025 oxybutynin (Ditropan) 5 MG tablet Take 1 tablet by mouth 2 times a day. rOPINIRole (Requip) 2 MG tablet Take 2 tablets by mouth nightly. semaglutide (Ozempic, 0.25 or 0.5 MG/DOSE,) 2 MG/1.5ML solution pen-injector inj. pen Inject 0.375 mL under the skin 1 time per week. torsemide (Demadex) 20 MG tablet Take 2 tablets by mouth daily. 01/14/2025 traZODone (Desyrel) 150 MG tablet Take 1 tablet by mouth nightly. 01/14/2025 documented as of this encounter Miscellaneous Notes * Progress Notes - Guerda Thakur MD - 01/14/2025 12:21 PM EDT Gynecology Progress Note Subjective Doing well this morning.Mild cramping yesterday after procedure which has since resolved. Light vaginal spotting. No other complaints or concerns today. Primary planning for discharge this afternoon. Objective Physical Exam Constitutional: Appearance: Normal appearance. HENT: Head: Normocephalic and atraumatic. Cardiovascular: Rate and Rhythm: Normal rate. Pulmonary: Effort: Pulmonary effort is normal. No respiratory distress. Abdominal: Comments: Soft, non-TTP Neurological: General: No focal deficit present. Mental Status: She is alert and oriented to person, place, and time. Skin: General: Skin is warm and dry. Psychiatric: Mood and Affect: Mood normal. Behavior: Behavior normal. Labs: Lab Results Component Value Date WBC 11.01 (H) 01/14/2025 HGB 8.9 (L) 01/14/2025 HCT 29.7 (L) 01/14/2025 MCV 88 01/14/2025 PLT 335 01/14/2025 NEUTROABS 15.87 (H) 01/07/2025 GLUCOSE 266 (H) 01/14/2025 BUN 27 (H) 01/14/2025 CREATININE 1.09 01/14/2025 NA 133 (L) 01/14/2025 K 5.2 (H) 01/14/2025 CL 96 (L) 01/14/2025 CO2 26 01/14/2025 MG 1.7 (L) 01/08/2025 CALCIUM 9.5 01/14/2025 Imaging: Assessment/Plan Stacey Ulloa is a 54 y.o. with PMB # PMB - Menopause at 49 yo, two years without bleeding - Irregular bleeding since, worsening over the past few months - Current bleeding episode started two weeks ago while admitted to OSH, heavy bleeding w/ large clots - Difficult to quantify w/ pad counts, using chucks pads while in hospital. Incontinent and using depends at home, but having to change more frequently when she is bleeding - Describes golfball sized clots with bleeding - Inconclusive US completed while at [facility], 12/30: nondiagnostic, poorly visualized uterus measuring 13.3 x 4.4 x 6.7; no focal lesion, unable to visualize endometrium, nabothian cyst - Last pap smear 24 years ago, no history of abnormal - 78 pack year smoking history - TVUS 01/09: unable to visualize uterus - Postmenopausal bleeding with associated anemia concerning for endometrial hyperplasia or malignancy. Cannot exclude other [facility] [facility] [employer] [facility] pathologies contributing to bleeding such as cervical malignancy, fibroid, endometrial polyp, etc. given no pap smear x24 years, history of cigarette smoking, and limited [facility] [employer] [facility] care since her last . - s/p Hysteroscopy, D&C, and placement of Mirena IUD 01/13 - Pathology from D&C pending. Will determine outpatient follow up pending pathology results. Please message on-call [facility] resident via [employer] Secure Chat or page [phone] (M-F 6a-6p) or [phone] (nights/weekends) for questions or concerns regarding this patient's care. Guerda Watson MD Obstetrics and Gynecology, PGY-2 Cosigned by Sybil Restrepo MD at 01/16/2025 12:48 PM EDT Associated attestation - Sybil Restrepo MD - 01/16/2025 12:48 PM EDT I reviewed with the resident the medical history and the resident's findings on physical examination. I discussed with the resident the patient's diagnosis and concur with the treatment plan as documented in the resident note. * Discharge Summary - Neo Viera MD - 01/14/2025 11:59 AM EDT Hospitalization Admit Date/Time: 01/07/2025 11:00 AM Admitting Attending: Neela Alexis Discharge Date: 01/14/2025 Discharge Attending Physician: Neo Viera MD PCP name and Address: Vahid Garcia, DO [address] / [place] [address] Chief Concern, Brief History of Present Illness, Hospital Course, and Final Discharge Diagnosis Ms. Ulloa is a 54 year old woman with obesity, functional paraplegia, HFpEF, 2nd degree AV blocks/p PPM with revision, T2DM, OHS on 2L that presented with hypotension and possible shock. She was found to have acute blood loss anemia from uterine bleeding. *Acute blood loss anemia due to abnormal uterine bleeding She is post-menopausal. It was possibly due to endometrial hyperplasia or malignancy. Imaging was limited due to body habitus. Her bleeding was controlled with megestrol acetate as inpatient. On 01/13GYN performed exam under anesthesia, endometrial biopsy, and placement of Mirena IUD. She was notedto have proliferative appearing endometrium. [facility] [employer] [facility] arranging follow up in 4-6 weeks. *Hypotension due to acute blood loss anemia There was initial concern for shock. She had GWEN and mildly elevated lactate. Her body habitus complicated things and made blood pressure cuff measurement challenging. She was weaned of norepiniphrine and given 1L fluid and 1 unit of PRBC during her stay. She was recently on outpatient midodrine, which was also restarted. Blood pressure was stable for remainder of admission. *Chronic heart failure with preserved EF Carries diagnosis; discharged from [facility] on torsemide, metolazone, spironolactone, metoprolol tartrate. She was felt not a candidate for SGLT due to size and immobility. She had no significant edema here. TTE showed EF 59%; poor quality due ot body habitus but appeared grossly normal. We initially held diuretics and BP meds given hypotension requiring midodrine. Then resume her torsemide 40mg daily at reduced dose. *Acute on Chronic Hypoxic Resp Failure *Second degree AV block s/p recent dual chamber PPM s/p recent atrial lead replacement *Intertriginous dermatitis *Hypothyroidism *T2DM *RLS *Mood disorder *GWEN (resolved) *Morbid obesity, functional paraplegia Surgeries and Procedures Procedures performed in this encounter Procedures Case Request Operating Room: HYSTEROSCOPY, WITH DILATION AND CURETTAGE OF UTERUS, INSERTION, INTRAUTERINE DEVICE Critical Care Critical Care Critical Care Critical Care HYSTEROSCOPY, WITH DILATION AND CURETTAGE OF UTERUS (N/A), INSERTION, INTRAUTERINE DEVICE (N/A) Medication List .. albuterol 108 (90 Base) MCG/ACT inhaler Inhale 2 puffs every 4 to 6 hours as needed for wheezing. aspirin 81 MG EC tablet Take 1 tablet by mouth daily. atorvastatin 40 MG tablet Commonly known as: Lipitor Take 1 tablet by mouth daily. buPROPion SR 200 MG 12 hr tablet Commonly known as: Wellbutrin SR Take 2 tablets by mouth daily. Do not crush, chew, or split. cyanocobalamin 1000 MCG tablet Commonly known as: Vitamin B-12 Take 1 tablet by mouth daily. ipratropium-albuterol 0.5-2.5 mg/3 mL nebulizer solution Commonly known as: Duo-Neb Take 3 mL by nebulization every 6 hours as needed for wheezing. levothyroxine 150 MCG tablet Commonly known as: Synthroid, Levoxyl Take 2 tablets by mouth daily before breakfast. metFORMIN 500 MG tablet Commonly known as: Glucophage Take 1 tablet by mouth 2 times a day with meals. miconazole 2 % powder Commonly known as: Micotin Apply bid to rash midodrine 10 MG tablet Commonly known as: Proamatine Take 1 tablet by mouth 3 times a day. oxybutynin 5 MG tablet Commonly known as: Ditropan Take 1 tablet by mouth 2 times a day. Ozempic (0.25 or 0.5 MG/DOSE) 2 MG/1.5ML solution pen-injector inj. pen Generic drug: semaglutide Inject 0.375 mL under the skin 1 time per week. Repatha SureClick 140 MG/ML solution auto-injector autoinjector Generic drug: Evolocumab Inject 1 mL under the skin every 14 days. rOPINIRole 2 MG tablet Commonly known as: Requip Take 2 tablets by mouth nightly. torsemide 20 MG tablet Commonly known as: Demadex Take 2 tablets by mouth daily. traZODone 150 MG tablet Commonly known as: Desyrel Take 1 tablet by mouth nightly. Trelegy Ellipta 100-62.5-25 MCG/ACT aerosol powder Generic drug: Hjdpzypqqnl-Lbzqmyhvh-Usaldd Inhale 1 puff daily. Where to Get Your Medications These medications were sent to [facility] - [address] [facility] [address] [facility] [address] [facility] [place] [id number] miconazole 2 % powder midodrine 10 MG tablet Information about where to get these medications is not yet available Ask your nurse or doctor about these medications torsemide 20 MG tablet traZODone 150 MG tablet Post Discharge Instructions and Outpatient Follow-Up Med Changes -reduce torsemide to 40mg daily and stopped spironolactone and metolazone due to hypotension and lack of edema -stopped metoprolol due to hypotension -started midodrine for hypotension -started miconazole for intertriginous dermatitis -reduced trazodone from 300mg to 150mg at bedtime Follow up -patient to arrange follow up with her PCP in 1-2 weeks; to assess edema, possibility of titrating down midodrine; also recommend a CBC and BMP to follow up her anemia and renal function on diuretics -f/u with [facility] in 4-6 weeks ([facility] team arranging) Test Results Pending At Discharge Pending Labs Order Current Status Surgical Pathology Exam In process Pertinent Physical Exam At Time of Discharge Physical Exam General: well appearing, resting in bed Pul: normal effort, no distress Neuro: alert, oriented Psych: pleasant; appropriate mood and behavior Discharge Disposition/Condition Disposition: Home Condition: Stable (s/sx potential problems absent or manageable) I spent >30 minutes of patient care and instruction time in preparation for this discharge. * Progress Notes - Nathalie Singh - 01/14/2025 8:47 AM EDT Case Management Adult Progress Note Stacey Ulloa 54 y.o. female CSN: [id number] Admission: 01/07/2025 11:00 AM Primary Problem: Shock (CMS/HCC) Anticipated Discharge Date: 01/14/25 Has Discharge Plans Changed? No Medicare Second Notice: Medicare Medicare Second Notice?: Yes Date Second Notice Completed: 01/12/25 Time Second Notice Completed: 1342 Medicare Second Notice Recieved By: Patient Housing Circumstances: Not Applicable Housing Circumstances Action Taken: Other na Medically Ready for Discharge: Anticipated Today Additional Comments Pt has ambulance scheduled today at 1600 To: [address] [place] [address] will remain available through discharge if needs arise. Nathalie Singh SENIOR GAMES TECHNICIAN, YOUTH CARE PROFESSIONAL Legal Administrative Secretary * Care Plan - Melissa Saldana RN - 01/14/2025 5:33 AM EDT Problem: Adult Inpatient Plan of Care Goal: Plan of Care Review Outcome: Ongoing, Progressing Flowsheets (Taken 01/14/2025 0532) Plan of Care Reviewed With: patient Goal: Patient-Specific Goal (Individualized) Outcome: Ongoing, Progressing Goal: Absence of Hospital-Acquired Illness or Injury Outcome: Ongoing, Progressing Intervention: Identify and Manage Fall Risk Flowsheets (Taken 01/14/2025 0200) Safety Promotion/Fall Prevention: activity supervised assistive device/personal items within reach fall prevention program maintained clutter-free environment maintained lighting adjusted mobility aid in reach nonskid shoes/slippers when out of bed room organization consistent safety round/check completed Intervention: Prevent Skin Injury Flowsheets (Taken 01/14/2025 0200) Body Position: weight shifting legs elevated foot of bed elevated Goal: Optimal Comfort and Wellbeing Outcome: Ongoing, Progressing Goal: Readiness for Transition of Care Outcome: Ongoing, Progressing Problem: Infection Goal: Absence of Infection Signs and Symptoms Outcome: Ongoing, Progressing Intervention: Prevent or Manage Infection Flowsheets Taken 01/14/2025 0200 by Melissa Saldana RN Isolation Precautions: precautions maintained Taken 01/10/2025 1203 by Gabe Craig RN Infection Management: aseptic technique maintained Fever Reduction/Comfort Measures: lightweight bedding lightweight clothing fluid intake increased Problem: Skin Injury Risk Increased Goal: Skin Health and Integrity Outcome: Ongoing, Progressing Problem: Fall Injury Risk Goal: Absence of Fall and Fall-Related Injury Outcome: Ongoing, Progressing Problem: Sepsis/Septic Shock Goal: Optimal Coping Outcome: Ongoing, Progressing Goal: Absence of Bleeding Outcome: Ongoing, Progressing Goal: Blood Glucose Level Within Target Range Outcome: Ongoing, Progressing Intervention: Optimize Glycemic Control Flowsheets (Taken 01/11/2025 0353 by Aimee Luis) Hyperglycemia Management: correctional insulin given blood glucose monitored Hypoglycemia Management: blood glucose monitored Goal: Absence of Infection Signs and Symptoms Outcome: Ongoing, Progressing Goal: Optimal Nutrition Delivery Outcome: Ongoing, Progressing Problem: Bariatric Environmental Safety Goal: Safety Maintained with Care Outcome: Ongoing, Progressing * Progress Notes - Neo Viera MD - 01/13/2025 2:15 PM EDT Subjective Ms. Ulloa had her procedure this morning. This afternoon she reports moderate pelvic pain and mild vaginal bleeding. The pain is overall getting a little better compared to immediate post-op. Objective Last Recorded Vitals Blood pressure 119/64, pulse 90, temperature 36.7 ??C (98.1 ??F), resp. rate 16, height 1.6 m (5' 2.99 ), weight 188 kg (415 lb), SpO2 97%. Physical Exam General: well appearing, resting in bed Pul: normal effort, no distress Neuro: alert, oriented Psych: pleasant; appropriate mood and behavior Assessment/Plan Ms. Ulloa is a 54 year old woman with obesity, functional paraplegia, HFpEF, 2nd degree AV blocks/p PPM with revision, T2DM, OHS on 2L that presented with hypotension and concern for shock and was found to have acute blood loss anemia from uterine bleeding. *Acute blood loss anemia due to abnormal uterine bleeding -post-menopausal; possible endometrial hyperplasia or malignancy, although differential broad; imaging limited due to body habitus -01/13 [facility] [facility] [employer] performed exam under anesthesia, endometrial biopsy, and placement of Mirena IUD -discontinue megestrol acetate -if remains stable plan for discharge tomorrow; has ambulance scheduled for 4pm *Hypotension due to acute blood loss anemia -initial concern for shock; had GWEN and mildly elevated lactate; body habitus complicated things and made blood pressure cuff measurement challegning -weaned of norepiniphrine and given 1L fluid and 1 unit of PRBC -currently on midodrine and stable *Chronic heart failure with preserved EF -carries diagnosis; discharged from [facility] on torsemide, metolazone, spironolactone, metoprolol tartrate; felt not a candidate for SGLT due to size and immobility -TTE showed EF 59%; poor quality due ot body habitus but appeared grossly normal -initially held diuretics and BP meds given hypotension requiring midodrine -cont torsemide 40mg daily at reduced dose *Acute on Chronic Hypoxic Resp Failure -hx of obesity hypoventilation syndrome; initially on high flow nasal canula; ? Etiology; anemia may have contributed; quickly weaned to home 2L -chest x-ray showed mild congestion -improved and she is now at baseline *Second degree AV block s/p dual chamber PPM (12/05/24) s/p atrial lead replacement (12/29/24) -Recent dual chamber pacing with LBBAP (RAA & left anterior fascicle pacing) with Dr. Manoj Banda -TTE (12/05/24): EF 68%, paradoxical septal motion, moderate global RV hypokinesis - cardiology interrogated PPM on arrival which is positioned and functioning appropriately *Intertriginous dermatitis -wound care team evaluated; cont topical miconazole *Hypothyroidism -TSH normal; cont home levothyroxine *T2DM -HbA1c 6.6; cont correction insulin -on semaglutide as outpatient *RLS -cont ropinorole *Mood disorder -cont home bupropion *Left shoulder pain -reports persistent from injury during a prior hospitalization; x-rays ordered *GWEN (resolved) -Cr peaked to 1.99; UA w/ trace protein -suspect pre-renal from hypotension, diuretics; resolved with IVF and holding diuretics *Morbid obesity, functional paraplegia -BMI 76; PT/OT; likely home on discharge -on semaglutide as outpatient * Anesthesia PACU Signout - Guzman Andrews MD - 01/13/2025 10:20 AM EDT Patient: Stacey Ulloa Anesthesia Type: general Vitals Value Taken Time BP 148/62 01/13/25 10:15 Temp 36.8 ??C (98.2 ??F) 01/13/25 10:15 Pulse 92 01/13/25 10:19 Resp 19 01/13/25 10:19 SpO2 95 % 01/13/25 10:19 Vitals shown include unfiled device data. Anesthesia PACU Signout Patient location during evaluation: PACU Patient participation: complete - patient participated Level of consciousness: baseline and awake Pain management: adequate (pain score 0-3) Airway patency: natural airway Hydration status: acceptable PONV: none Cardiovascular status: acceptable and hemodynamically stable Respiratory status: acceptable, spontaneous ventilation, nonlabored ventilation and nasal cannula Discharge Disposition: admit to inpatient unit Cosigned by Dean Moreno MD at 01/14/2025 9:00 PM EDT Associated attestation - Dean Moreno MD - 01/14/2025 9:00 PM EDT I discussed the case with the resident/fellow and agree with the findings and plan as documented. * Op Note - Aleida Ingram MD - 01/13/2025 8:51 AM EDT Operative Note Date: 01/13/25 Location: [place] [facility] Name: Stacey Ulloa, : 1970, Diagnoses: Pre-op Diagnosis Abnormal uterine and vaginal bleeding, unspecified Post-op Diagnosis Abnormal uterine and vaginal bleeding, unspecified Procedure(s): Hysteroscopy, D&C, Mirena IUD placement Attending Surgeon(s): * Mat Bowles - Primary Repair Technician(s): * Aleida Ingram MD - Resident - Assisting Anesthesia: General ASA: IV Blood Administration: Blood Product Administration History Date Volume Status Transfuse RBC 01/09/2025 405 mL Completed 01/09/25 0652 Estimated Blood Loss: Minimal Drains: Female External Urinary Catheter 01/10/25 1820 (Active) Wall Suction (mmHg) 80 mmHg 01/13/25 0400 External Catheter Status In place 01/13/25 0615 Perineal Skin Assessment and Care Performed Reddened;No breakdown 01/13/25 0615 Output (mL) 400 mL 01/13/25 0520 Specimen: Specimens ID Source Frozen? 1 Other (specify site) No Description: Endometrial tissue - permanent Findings: Normal appearing external female genitalia Normal appearing cervix Proliferative appearing endometrium Indications: Stacey Ulloa is an 54 y.o. undergoing hysteroscopy, dilation and curettage, and Mirena IUD placement for abnormal uterine bleeding Narrative: After informed consent patient was taken to the operating room, where anesthesia was induced. Afteradequate anesthesia, patient was placed in lithotomy position using Wei stirrups. Vagina and perineum were prepped and draped in normal sterile fashion. A timeout was performed when correct patient, location, and procedure were identified. A bivalve speculum was inserted into the vagina and an Allis clamp was used to grasp the anterior lip of the cervix. The hysteroscope was passed into the endometrial cavity under direct visualization without any difficulty. Findings were noted as above. Hysteroscope was removed. Endometrial curettage was performed using the endometrial curette of all 4 bro vargas. The specimen was sent off for permanent pathology. Mirena IUD was then inserted blindly. The clamp was removed from the cervix. All instruments were removed from the vagina. Patient was wokenup and taken to the PACU in stable condition. Sponge, lap, and needle counts were correct x2. Dr. Bowles was present and scrubbed for the entirety of the procedure. There were NO signs of surgical site infection (SSI) present at the time of surgery (PATOS). Complications: None; patient tolerated the procedure well. Submitted by: Aleida Ingram MD - 01/13/2025 Cosigned by Mat Bowles MD at 01/13/2025 10:54 AM EDT Associated attestation - Mat Bowles MD - 01/13/2025 10:54 AM EDT I was present for the entirety of the procedure(s). * Progress Notes - Aleida Ingram MD - 01/13/2025 6:50 AM EDT Gynecology Progress Note Subjective Doing well this morning. Denies vaginal bleeding or abdominal pain. Procedure reviewed, all questions answered. Objective Physical Exam Constitutional: Appearance: Normal appearance. HENT: Head: Normocephalic and atraumatic. Cardiovascular: Rate and Rhythm: Normal rate. Pulmonary: Effort: Pulmonary effort is normal. No respiratory distress. Neurological: General: No focal deficit present. Mental Status: She is alert and oriented to person, place, and time. Skin: General: Skin is warm and dry. Psychiatric: Mood and Affect: Mood normal. Behavior: Behavior normal. Labs: Lab Results Component Value Date WBC 11.40 (H) 01/12/2025 HGB 9.0 (L) 01/12/2025 HCT 30.0 (L) 01/12/2025 MCV 88 01/12/2025 PLT 363 01/12/2025 NEUTROABS 15.87 (H) 01/07/2025 GLUCOSE 235 (H) 01/12/2025 BUN 18 01/12/2025 CREATININE 0.93 01/12/2025 NA 134 (L) 01/12/2025 K 5.0 (H) 01/12/2025 CL 96 (L) 01/12/2025 CO2 27 01/12/2025 MG 1.7 (L) 01/08/2025 CALCIUM 9.7 01/12/2025 Imaging: Assessment/Plan Stacey Ulloa is a 54 y.o. with PMB # PMB - Menopause at 49 yo, two years without bleeding - Irregular bleeding since, worsening over the past few months - Current bleeding episode started two weeks ago while admitted to OSH, heavy bleeding w/ large clots - Difficult to quantify w/ pad counts, using chucks pads while in hospital. Incontinent and using depends at home, but having to change more frequently when she is bleeding - Describes golfball sized clots with bleeding - Inconclusive US completed while at [facility], 12/30: nondiagnostic, poorly visualized uterus measuring 13.3 x 4.4 x 6.7; no focal lesion, unable to visualize endometrium, nabothian cyst - Last pap smear 24 years ago, no history of abnormal - 78 pack year smoking history - TVUS 01/09: unable to visualize uterus - Postmenopausal bleeding with associated anemia concerning for endometrial hyperplasia or malignancy. Cannot exclude other [employer] pathologies contributing to bleeding such as cervical malignancy, fibroid, endometrial polyp, etc. given no pap smear x24 years, history of cigarette smoking, and limited [employer] care since her last . Recommendations: - Continue Megace 40 daily in the setting of concern for endometrial hyperplasia - Continue nursing pad counts to attempt to better quantify patient's bleeding - To OR for hysteroscopy, D&C, and mirena IUD placement today # Rest of care per primary team Dispo: To OR for hysteroscopy, D&C, and mirena IUD placement Please message on-call [employer] resident via [employer] Secure Chat or page [phone] (M-F 6a-6p) or [phone] (nights/weekends) for questions or concerns regarding this patient's care. Aleida Ingram MD Obstetrics & Gynecology, PGY-1 Cosigned by Mat Bowles MD at 01/13/2025 10:55 AM EDT Associated attestation - Mat Bowles MD - 01/13/2025 10:55 AM EDT I saw and evaluated the patient with the resident/fellow. I discussed the case with the resident/fellow and agree with the findings and plan as documented. * Procedures - Delaney Cunningham RN - 01/12/2025 2:40 PM EDTAssociated Order(s): Insert peripheral IV Insert peripheral IV Performed by: Delaney Cunningham RN Authorized by: Neo Viera MD Hand hygiene: Hand hygiene performed prior to insertion Inserted using aseptic techniques: Yes Preparation: Skin prepped with chg Orientation: Right Location: Forearm Catheter placed: Peripheral IV Catheter size: 20g/2.00in Line Technique: Ultrasound Guidance Number of attempts: 1 IV flushes: Without difficulty and positive blood return noted and IV luer locked Patient tolerance: Patient tolerated the procedure well, age appropriate response and there were nocomplications IV site covered with: Transparent semipermeable dressing Education provided to: Patient Comments: I obtained 10 mL of blood with USG PIV insertion and provided to bedside RN for labs. * Progress Notes - Neo Viera MD - 01/12/2025 2:00 PM EDT Subjective Ms. Ulloa reports feeling well this morning. Denies any further vaginal bleeding. No lightheadedness or dizziness. No dyspnea or chest pain this morning. Review of Systems Reports fair strength, close to her baseline; got to chair with assistance yesterday; reports eating well Objective Last Recorded Vitals Blood pressure (!) 114/49, pulse 94, temperature 36.4 ??C (97.5 ??F), temperature source Oral, resp. rate 18, height 1.6 m (5' 3 ), weight 196 kg (431 lb 3.5 oz), SpO2 96%. Physical Exam General: well appearing, resting in bed Pul: normal effort, no distress Neuro: alert, oriented Psych: pleasant; appropriate mood and behavior Assessment/Plan Ms. Ulloa is a 54 year old woman with obesity, functional paraplegia, HFpEF, 2nd degree AV blocks/p PPM with revision, T2DM, OHS on 2L that presented with hypotension and concern for shock and was found to have acute blood loss anemia from uterine bleeding. *Acute blood loss anemia due to abnormal uterine bleeding -post-menopausal; possible endometrial hyperplasia or malignancy, although differential broad; imaging limited due to body habitus -currently on megestrol acetate per [employer] recs; bleeding improved -net technical architect planning on OR for exam under anesthesia, D&C and placement of IUD on 01/13 *Hypotension due to acute blood loss anemia -initial concern for shock; had GWEN and mildly elevated lactate; body habitus complicated things and made blood pressure cuff measurement challegning -weaned of norepiniphrine and given 1L fluid and 1 unit of PRBC -currently on midodrine and stable *Chronic heart failure with preserved EF -carries diagnosis; discharged from [facility] on torsemide, metolazone, spironolactone, metoprolol tartrate; felt not a candidate for SGLT due to size and immobility -TTE showed EF 59%; poor quality due ot body habitus but appeared grossly normal -initially held diuretics and BP meds given hypotension requiring midodrine -previously resumed torsemide 40mg daily at reduced dose and tolerating well *Acute on Chronic Hypoxic Resp Failure -hx of obesity hypoventilation syndrome; initially on high flow nasal canula; ? Etiology; anemia may have contributed; quickly weaned to home 2L -chest x-ray showed mild congestion -improved and she is now at baseline *Second degree AV block s/p dual chamber PPM (12/05/24) s/p atrial lead replacement (12/29/24) -Recent dual chamber pacing with LBBAP (RAA & left anterior fascicle pacing) with Dr. Manoj Banda -TTE (12/05/24): EF 68%, paradoxical septal motion, moderate global RV hypokinesis - cardiology interrogated PPM on arrival which is positioned and functioning appropriately *Intertriginous dermatitis -wound care team evaluated; cont topical miconazole *Hypothyroidism -TSH normal; cont home levothyroxine *T2DM -HbA1c 6.6; cont correction insulin -on semaglutide as outpatient *RLS -cont ropinorole *Mood disorder -cont home bupropion *Left shoulder pain -reports persistent from injury during a prior hospitalization; x-rays ordered *GWEN (resolved) -Cr peaked to 1.99; UA w/ trace protein -suspect pre-renal from hypotension, diuretics; resolved with IVF and holding diuretics *Morbid obesity, functional paraplegia -BMI 76; PT/OT; likely home on discharge -on semaglutide as outpatient * Progress Notes - Evelyn Nova RN - 01/12/2025 12:48 PM EDT Case Management Adult Progress Note Stacey Ulloa 54 y.o. female CSN: [id number] Admission: 01/07/2025 11:00 AM Primary Problem: Shock (CMS/HCC) Anticipated Discharge Date: 01/14 Has Discharge Plans Changed? No; home Medicare Second Notice: Medicare Medicare Second Notice?: Yes Date Second Notice Completed: 01/12/25 Time Second Notice Completed: 3028 Medicare Second Notice Recieved By: Patient Medically Ready for Discharge: Anticipated in 2-4 Days Additional Comments Patient admitted for weakness, fatigue, hypotension, and SOB. Patient required pressors for hypotension, so was admitted to MICU. Patient severely anemic from vaginal bleeding requiring blood transfusion. [employer] consulted. Patient [place] [facility] [place]. Per MD patient is not medically ready fordischarge. Provider Contracting Consultant planning on hysteroscopy, D&C, and mirena IUD placement on 01/13. Will keep overnight to monitor and then discharge on 01/14 if medically stable. Ambulance scheduled for 01/14/25 @ 1600. Patient has home oxygen through [employer]. RNCM will continue to monitor for further discharge needs. Evelyn Nova RN * Consults - Susan Saha PA - 01/12/2025 11:18 AM EDTAssociated Order(s): Inpatient consult to anesthesiology Images from the original note were not included. Inpatient consult to anesthesiology Consult performed by: Susan Saha PA Consult ordered by: Neo Viera MD Reason for consult: Pre anesthesia evaluation and optimization Reason For Consult Pre anesthesia evaluation and optimization Requesting Service: Provider Contracting Consultant Requested Date/Time: 01/12/25 History Of Present Illness Stacey Ulloa is a 54 y.o. female presenting with hypotension and concern for shock and was found to have acute blood loss anemia from uterine bleeding. Gynecology is planning to take to OR 01/13 forhysteroscopy, D&C, and mirena IUD placement. Anesthesia was consulted for pre anesthesia evaluation and optimization. Pt with PMH of obesity (BMI 76), functional paraplegia, HFpEF, hypothyroidism, RLS, mood disorder, Second degree AV block s/p dual chamber PPM (12/05/24) s/p atrial lead replacement (12/29/24), T2DM, HONEY/OHS on 2L who presented initially 01/07 with undifferentiated shock requiring levophed in MICU. Per MICU note patient incredibly difficult placement for rosendo and required blood pressure cuff on the right calf . Transferred out of ICU to medicine 01/09, currently on midodrine for hypotension. She has remained stable since transfer. Denies further bleeding. She reports no lightheadedness or dizziness. No dyspnea. Pt has history of Second degree AV block s/p dual chamber PPM (12/05/24) s/p atrial lead replacement(12/29/24. Recent dual chamber pacing with LBBAP (RAA & left anterior fascicle pacing) with Dr. Aranda at [facility]. Cardiology consulted and interrogated pacemaker 01/07 (see cards consult note). Bedside device interrogation demonstrated preserved pacemaker functioning, appropriate settings. Both atrial and ventricular leads capture, sensing, and impedance were assessed with no significant derivation from prior checks. This suggest leads remain in the appropriate position and fully functional (further supported by CXR) . ECHO 01/11: LVEF 59%. No significant valvular abnormalities. She is primarily bed bound for 3+ years, she attributes it to arthritis and deconditioning. She cansometimes sit on the side of the bed to help transfer to wheelchair. No prior issues with GA. Medical/Surgical/Social/Family History Past Medical History[1] Obesity (BMI 76), functional paraplegia, HFpEF, hypothyroidism, RLS, mood disorder, Second degree AV block s/p dual chamber PPM (12/05/24) s/p atrial lead replacement (12/29/24), T2DM, OHS on 2L Surgical History[2] Dual chamber pacemaker placement Social History[3] Family History[4] Allergies Dilaudid [hydromorphone] Medications Current Medications[5] Review of Systems Review of Systems Constitutional: Negative for fever and unexpected weight change. HENT: Negative for sore throat. Respiratory: Negative for cough and wheezing. HONEY/ OHS on 2L at baseline. No worsening SOA Cardiovascular: Negative for chest pain. Gastrointestinal: Negative for abdominal pain. Genitourinary: Negative for hematuria. Musculoskeletal: Negative for joint swelling. Allergic/Immunologic: Negative for immunocompromised state. Neurological: Negative for seizures. Hematological: Does not bruise/bleed easily. Psychiatric/Behavioral: Negative for confusion. Physical Exam Physical Exam Constitutional: General: She is not in acute distress. Appearance: She is obese. She is not ill-appearing. HENT: Head: Normocephalic and atraumatic. Mouth/Throat: Mouth: Mucous membranes are moist. Eyes: Pupils: Pupils are equal, round, and reactive to light. Cardiovascular: Rate and Rhythm: Normal rate and regular rhythm. Heart sounds: No murmur heard. Pulmonary: Effort: Pulmonary effort is normal. Breath sounds: Normal breath sounds. Abdominal: Palpations: Abdomen is soft. Tenderness: There is no abdominal tenderness. Musculoskeletal: General: No swelling. Cervical back: Normal range of motion. Skin: General: Skin is warm and dry. Neurological: General: No focal deficit present. Psychiatric: Mood and Affect: Mood normal. Last Recorded Vitals Blood pressure (!) 114/49, pulse 94, temperature 36.4 ??C (97.5 ??F), temperature source Oral, resp. rate 18, height 1.6 m (5' 3 ), weight 196 kg (431 lb 3.5 oz), SpO2 96%. Results Review {Vanishing Link Review Results :[id number] I have reviewed the latest lab and imaging results with the following pertinent results: Labs in last 18 hours CBC WBC ?? Hb ?? Plt ?? Hct ?? ANC ?? INR ??, PTT ??, Anti-Xa ?? BMP Na ?? Cl ?? BUN ?? Glu ?? K ?? Co2 ?? Cr ?? Ca ?? iCa ?? Mg ??, Phos ?? Lactate ?? LFT AST ?? AlkPhos ?? T Prot ?? ALK ?? Bili ?? Alb ?? D.Bili ?? Echo, Adult Transthoracic Complete Result Date: 01/11/2025 Technically difficult study due to patient's body habitus. Overall the study quality was poor. The left ventricle is not well visualized, but is grossly normal in size. The left ventricular systolic function is normal. The LVEF as measured by biplane volume is 59%. The diastolic function is normal.No regional wall motion abnormalities are seen. The right ventricle was not well visualized. The right ventricular systolic function is normal. No hemodynamically significant valvular disease. There is no recent study available for direct [id number] comparison. Encounter Date: 01/07/25 ECG Adult Result Value EKG DIAGNOSIS CLASS Abnormal Ventricular Rate 91 Atrial Rate 91 MS Interval 186 QRSD Interval 112 QT Interval 366 QTC Interval 450 P Blakeslee 66 R Blakeslee 72 T Wave Blakeslee -77 Diagnosis Normal sinus rhythm Diagnosis Low voltage QRS Diagnosis Cannot rule out Anteroseptal infarct , age undetermined Diagnosis T wave abnormality, consider inferior ischemia Diagnosis Abnormal ECG Diagnosis Diagnosis Confirmed by Ronal Shaikh ([id number]) on 01/09/2025 12:33:16 PM *Note: Due to a large number of results and/or encounters for the requested time period, some results have not been displayed. A complete set of results can be found in Results Review. XR CHEST 1 VIEW 01/07/25 COMPARISON: Chest radiograph 04/05/2014 FINDINGS: Enlarged cardiac silhouette which may be accentuated secondary to technique. Mediastinal contours are within normal limits. Left chest wall dual-lead pacemaker is noted. Mild pulmonary vascular congestion. No consolidation, definite pleural effusion or pneumothorax. No acute displaced fracture within the chest. IMPRESSION: Mild pulmonary vascular congestion without overt edema. Pacemaker Interrogation (01/07/2025): METS: <4 RCRI: Low risk of MACE Ariscat: Moderate of in hospital post operative pulmonary complications Assessment & Plan Shock (CMS/HCC) Class III obesity with body mass index (BMI) of 40.0 or higher (CMS/HCC) Abnormal uterine and vaginal bleeding, unspecified Patient has tolerated anesthesia in the past without issues. Due to her BMI/ OHS, ventilation will be more challenging while under anesthesia. Discussed with patient and she understands risks. Reviewed EKG, ECHO and no further cardiac testing is needed prior to OR. Cardiac device was interrogated recently (as above). Recommend instructing patient on incentive spirometry use Recommend aggressive pulmonary hygiene as tolerated pre and post operatively. Recommend correcting and maintaining electrolytes within normal limits. Goal K < 5.0 and > 3.5. Ensure current type and screen on day of surgery No further testing required prior to anesthesia at this time. Discussed with Dr. Moreno. Thank you for the consult, please call with any questions or concerns. Anesthesia will re-evaluate patient on day of procedure. Susan Saha PA-C Department of Anesthesia [phone] [1] No past medical history on file. [2] No past surgical history on file. [3] Social History Tobacco Use Smoking status: Former Types: Cigarettes Smokeless tobacco: Never Substance Use Topics Alcohol use: Never Drug use: Never [4] No family history on file. [5] Current Facility-Administered Medications Medication Dose Route Frequency Provider Last Rate Last Admin acetaminophen (Tylenol) tablet 650 mg 650 mg Oral q4h PRN Trey Anthony MD 650 mg at 01/12/25 1014 albuterol 108 (90 Base) MCG/ACT inhaler 2 puff 2 puff Inhalation q6h PRN Neo Viera MD buPROPion SR (Wellbutrin SR) 12 hr tablet 200 mg 200 mg Oral BID John Denton MD 200 mg at 01/12/25 1015 glucose (Glutose) 40 % oral gel 15-30 grams of glucose 15-30 grams of glucose Sublingual q15 min PRN Elvia Baldwin APRN, DNP Or dextrose 50 % solution 12.5-25 g 12.5-25 g Intravenous q15 min PRN Elvia Baldwin APRN, DNP Or glucagon (human recombinant) injection 1 mg 1 mg Intramuscular q15 min PRN Elvia Baldwin APRN, DNP diclofenac (Voltaren) 1 % topical gel 2 g 2 g Topical 4x daily PRN Aguila Wu MD insulin lispro (Admelog) 100 units/mL injection - Correction - Standard Dose 0-5 Units SubcutaneousTID with meals Neo Viera MD 1 Units at 01/12/25 1319 insulin lispro (Admelog) injection - Correction - Nighttime Dose 0-3 Units Subcutaneous Twice at night Neo Viera MD levonorgestrel (Mirena) 20 MCG/DAY IUD Intrauterine Once Aleida Ingram MD levothyroxine (Synthroid, Levoxyl) tablet 300 mcg 300 mcg Oral q AM Trey Anthony MD 300 mcg at 01/12/25 0344 lidocaine (Xylocaine) 1 % injection - Pyxis Override Pull megestrol (Megace) tablet 40 mg 40 mg Oral Daily Neo Viera MD 40 mg at 01/12/25 1014 metFORMIN (Glucophage) tablet 500 mg 500 mg Oral BID with meals Neo Viera MD 500 mg at 014 miconazole (Micotin) 2 % powder 1 Application 1 Application Topical BID Neo Viera MD 1 Application at 01/12/25 1015 midodrine (Proamatine) tablet 10 mg 10 mg Oral TID Trey Anthony MD 10 mg at 01/12/25 1014 Tiotropium [place] Monohydrate (Spiriva Respimat) 2.5 MCG/ACT inhaler 2 puff 2 puff Inhalation Daily Neo Viera MD 2 puff at 01/12/25 1015 And mometasone-formoterol (Dulera 200) 200-5 MCG/ACT inhaler 2 puff 2 puff Inhalation BID Neo Viera MD 2 puff at 01/12/25 1015 rOPINIRole (Requip) tablet 4 mg 4 mg Oral Daily Trey Anthony MD 4 mg at 01/12/25 1014 sodium chloride 0.9 % flush 3 mL 3 mL Intravenous PRN Elvia Baldwin, MANAGER COMPLIANCE, DNP 13 mL at 01/11/252006 torsemide (Demadex) tablet 40 mg 40 mg Oral Daily Neo Viera MD 40 mg at 01/12/25 1014 * Progress Notes - Aleida Ingram MD - 01/12/2025 7:35 AM EDT Gynecology Progress Note Subjective No bleeding overnight. Denies abdominal pain or nausea/vomiting. Objective Physical Exam Constitutional: Appearance: Normal appearance. HENT: Head: Normocephalic and atraumatic. Cardiovascular: Rate and Rhythm: Normal rate. Pulmonary: Effort: Pulmonary effort is normal. No respiratory distress. Neurological: General: No focal deficit present. Mental Status: She is alert and oriented to person, place, and time. Skin: General: Skin is warm and dry. Psychiatric: Mood and Affect: Mood normal. Behavior: Behavior normal. Labs: Lab Results Component Value Date WBC 10.64 (H) 01/11/2025 HGB 8.3 (L) 01/11/2025 HCT 28.0 (L) 01/11/2025 MCV 88 01/11/2025 PLT 341 01/11/2025 NEUTROABS 15.87 (H) 01/07/2025 GLUCOSE 204 (H) 01/11/2025 BUN 15 01/11/2025 CREATININE 0.66 01/11/2025 NA 134 (L) 01/11/2025 K 5.1 (H) 01/11/2025 CL 98 01/11/2025 CO2 27 01/11/2025 MG 1.7 (L) 01/08/2025 CALCIUM 8.9 01/11/2025 Imaging: Assessment/Plan Stacey Ulloa is a 54 y.o. with PMB # PMB - Menopause at 49 yo, two years without bleeding - Irregular bleeding since, worsening over the past few months - Current bleeding episode started two weeks ago while admitted to OSH, heavy bleeding w/ large clots - Difficult to quantify w/ pad counts, using chucks pads while in hospital. Incontinent and using depends at home, but having to change more frequently when she is bleeding - Describes golfball sized clots with bleeding - Inconclusive US completed while at [facility], 12/30: nondiagnostic, poorly visualized uterus measuring 13.3 x 4.4 x 6.7; no focal lesion, unable to visualize endometrium, nabothian cyst - Last pap smear 24 years ago, no history of abnormal - 78 pack year smoking history - TVUS 01/09: unable to visualize uterus - Postmenopausal bleeding with associated anemia concerning for endometrial hyperplasia or malignancy. Cannot exclude other [employer]ER pathologies contributing to bleeding such as cervical malignancy, fibroid, endometrial polyp, etc. given no pap smear x24 years, history of cigarette smoking, and limited PULP GR[employer]ER AND BLENDER care since her last . Recommendations: - Continue Megace 40 daily in the setting of concern for endometrial hyperplasia - Continue nursing pad counts to attempt to better quantify patient's bleeding - Plan for hysteroscopy, D&C, and mirena IUD placement on 01/13. NPO @ [facility] - Will need pre-operative clearance from anesthesia # Rest of care per primary team Dispo: P[employer]P [employer] BLENDER will continue to follow. Please message on-call P[employer]P GR[employer]ER AND BLENDER resident via [employer] Secure Chat or page [phone] (M-F 6a-6p) or [phone] (nights/weekends) for questions or concerns regarding this patient's care. Aleida Ingram MD Obstetrics & Gynecology, PGY-1 Cosigned by Kayley Mcmullen MD at 01/12/2025 3:37 PM EDT Associated attestation - Kayley Mcmullen MD - 01/12/2025 3:37 PM EDT I saw and evaluated the patient. I discussed the case with the resident/fellow and agree with the findings and plan as documented. * Care Plan - Rosa Roy RN - 01/11/2025 11:43 PM EDT Problem: Adult Inpatient Plan of Care Goal: Plan of Care Review Outcome: Ongoing, Progressing Flowsheets (Taken 01/11/20252337) Progress: improving Plan of Care Reviewed With: patient Note: Patient HGB stabilized, pt looking forward to sx Goal: Patient-Specific Goal (Individualized) Outcome: Ongoing, Progressing Flowsheets (Taken 01/11/20252337) Patient/Family-Specific Goals (Include Timeframe): Pt will have no new s/s of bleeding Individualized Care Needs: bleed risk Anxieties, Fears or Concerns: none Goal: Absence of Hospital-Acquired Illness or Injury Outcome: Ongoing, Progressing Intervention: Identify and Manage Fall Risk Flowsheets (Taken 01/11/20252337) Safety Promotion/Fall Prevention: clutter-free environment maintained fall prevention program maintained safety round/check completed Intervention: Prevent Skin Injury Flowsheets (Taken 01/11/20252337) Body Position: legs elevated Skin Protection: other (see comments) Note: Micanizole applied Goal: Optimal Comfort and Wellbeing Outcome: Ongoing, Progressing Note: Patient is in good spirits, looking forward to sx, then home Goal: Readiness for Transition of Care Outcome: Ongoing, Progressing Problem: Infection Goal: Absence of Infection Signs and Symptoms Outcome: Ongoing, Progressing Note: CHG bath given prior to sx Problem: Skin Injury Risk Increased Goal: Skin Health and Integrity Outcome: Ongoing, Progressing Problem: Fall Injury Risk Goal: Absence of Fall and Fall-Related Injury Outcome: Ongoing, Progressing Problem: Sepsis/Septic Shock Goal: Optimal Coping Outcome: Ongoing, Progressing Goal: Absence of Bleeding Outcome: Ongoing, Progressing Goal: Blood Glucose Level Within Target Range Outcome: Ongoing, Progressing Goal: Absence of Infection Signs and Symptoms Outcome: Ongoing, Progressing Goal: Optimal Nutrition Delivery Outcome: Ongoing, Progressing Problem: Bariatric Environmental Safety Goal: Safety Maintained with Care Outcome: Ongoing, Progressing * Consults - Candace Mustafa RN - 01/11/2025 11:30 AM EDTAssociated Order(s): IP CONSULT TO ADULT VASCULAR ACCESS TEAM VAT consulted for assistance with lab draw. Labs obtained x 1 attempt with butterfly needle to right forearm. Specimen Labeled at bedside and tubed to lab. * Progress Notes - Neo Viera MD - 01/11/2025 9:03 AM EDT Subjective Ms. Ulloa reports feeling well this morning. Has increased energy. Denies further bleeding. Nursing Nursing reports no bleeding overnight and this morning too. She reports no lightheadedness or dizziness. No dyspnea. Review of Systems Reports fair strength, close to her baseline; reports eating well Objective Last Recorded Vitals Blood pressure 126/64, pulse 84, temperature 36.8 ??C (98.2 ??F), temperature source Oral, resp. rate 18, height 1.6 m (5' 3 ), weight 196 kg (431 lb 3.5 oz), SpO2 97%. Physical Exam General: well appearing, resting in bed Pul: normal effort, no distress Neuro: alert, oriented Psych: pleasant; appropriate mood and behavior Assessment/Plan Ms. Ulloa is a 54 year old woman with obesity, functional paraplegia, HFpEF, 2nd degree AV blocks/p PPM with revision, T2DM, OHS on 2L that presented with hypotension and concern for shock and was found to have acute blood loss anemia from uterine bleeding. *Acute blood loss anemia due to abnormal uterine bleeding -post-menopausal; possible endometrial hyperplasia or malignancy, although differential broad; imaging limited due to body habitus -initially started on Provera; changed to megestrol acetate per P[employer] AND BLENDER recs -net technical architect planning on OR for exam under anesthesia, D&C and placement of IUD; deciding on inpatient vs outpatient intervention given her difficulty with transportation *Hypotension due to acute blood loss anemia -initial concern for shock but lactates normal, likely body habitus made blood pressure cuff measurement challegning -weaned of norepiniphrine and given 1L fluid and 1 unit of PRBC -currently on midodrine *Chronic heart failure with preserved EF -carries diagnosis; discharged from [facility] on torsemide, metolazone, spironolactone, metoprolol tartrate; felt not a candidate for SGLT due to size and immobility -TTE pending -initially held diuretics and BP meds given hypotension requiring midodrine -start back reduced dose of diuretics for now at torsemide 40mg daily; repeat BMP tomorrow am *Acute on Chronic Hypoxic Resp Failure -hx of obesity hypoventilation syndrome; initially on high flow nasal canula; ? Etiology; anemia may have contributed; quickly weaned to home 2L -chest x-ray personally reviewed and mild congestion -improved to baseline *Second degree AV block s/p dual chamber PPM (12/05/24) s/p atrial lead replacement (12/29/24) -Recent dual chamber pacing with LBBAP (RAA & left anterior fascicle pacing) with Dr. Manoj Banda -TTE (12/05/24): EF 68%, paradoxical septal motion, moderate global RV hypokinesis - cardiology interrogated PPM on arrival which is positioned and functioning appropriately *Intertriginous dermatitis -wound care team evaluated; cont topical miconazole *Hypothyroidism -TSH normal; cont home levothyroxine *T2DM -HbA1c 6.6; cont correction insulin -on semaglutide as outpatient *RLS -cont ropinorole *Mood disorder -cont home bupropion *GWEN (resolved) -Cr peaked to 1.99; UA w/ trace protein -suspect pre-renal from hypotension, diuretics; resolved with IVF and holding diuretics *Morbid obesity, functional paraplegia -BMI 76; PT/OT; likely home on discharge -on semaglutide as outpatient * Progress Notes - Aleida Ingram MD - 01/11/2025 8:55 AM EDT Gynecology Progress Note Subjective Doing well this morning. Per nursing, no vaginal bleeding present on chux over past 24 hours. Denies nausea/vomiting or abdominal pain. Objective Physical Exam Constitutional: Appearance: Normal appearance. HENT: Head: Normocephalic and atraumatic. Cardiovascular: Rate and Rhythm: Normal rate. Pulmonary: Effort: Pulmonary effort is normal. No respiratory distress. Neurological: General: No focal deficit present. Mental Status: She is alert and oriented to person, place, and time. Skin: General: Skin is warm and dry. Psychiatric: Mood and Affect: Mood normal. Behavior: Behavior normal. Labs: Lab Results Component Value Date WBC 8.64 01/10/2025 HGB 7.7 (L) 01/10/2025 HCT 25.9 (L) 01/10/2025 MCV 89 01/10/2025 PLT 317 01/10/2025 NEUTROABS 15.87 (H) 01/07/2025 GLUCOSE 198 (H) 01/09/2025 BUN 31 (H) 01/09/2025 CREATININE 0.86 01/09/2025 NA 138 01/09/2025 K 5.3 (H) 01/09/2025 CL 104 01/09/2025 CO2 28 01/09/2025 MG 1.7 (L) 01/08/2025 CALCIUM 8.3 (L) 01/09/2025 Imaging: Assessment/Plan Stacey Ulloa is a 54 y.o. with PMB # PMB - Menopause at 49 yo, two years without bleeding - Irregular bleeding since, worsening over the past few months - Current bleeding episode started two weeks ago while admitted to OSH, heavy bleeding w/ large clots - Difficult to quantify w/ pad counts, using chucks pads while in hospital. Incontinent and using depends at home, but having to change more frequently when she is bleeding - Describes golfball sized clots with bleeding - Inconclusive US completed while at [facility], 12/30: nondiagnostic, poorly visualized uterus measuring 13.3 x 4.4 x 6.7; no focal lesion, unable to visualize endometrium, nabothian cyst - Last pap smear 24 years ago, no history of abnormal - 78 pack year smoking history - TVUS 01/09: unable to visualize uterus - Postmenopausal bleeding with associated anemia concerning for endometrial hyperplasia or malignancy. Cannot exclude other [employer]ULP [employer]ER [employer] BLENDER pathologies contributing to bleeding such as cervical malignancy, fibroid, endometrial polyp, etc. given no pap smear x24 years, history of cigarette smoking, and limited PULP GRINDER AND BLENDER care since her last . Recommendations: - Continue Megace 40 daily in the setting of concern for endometrial hyperplasia - Continue nursing pad counts to attempt to better quantify patient's bleeding - Tentative plan for hysteroscopy, D&C, and mirena IUD placement on 01/13 pending OR availability - Will need pre-operative clearance from anesthesia # Rest of care per primary team Dispo: PULP GR[employer]ER AND BLENDER will continue to follow. Please message on-call PULP GR[employer]ER AND BLENDER resident via [employer] Secure Chat or page [phone] (M-F 6a-6p) or [phone] (nights/weekends) for questions or concerns regarding this patient's care. Aleida Ingram MD Obstetrics & Gynecology, PGY-1 Cosigned by Michelle Ruffin MD at 01/12/2025 9:57 AM EDT Associated attestation - Michelle Ruffin MD - 01/12/2025 9:57 AM EDT Attending Attestation: Patient seen and discussed with resident. I agree with the assessment and plan as documented * Care Plan - Bi Saini RN - 01/11/2025 7:59 AM EDT Problem: Adult Inpatient Plan of Care Goal: Plan of Care Review Outcome: Ongoing, Progressing Goal: Patient-Specific Goal (Individualized) Outcome: Ongoing, Progressing Goal: Absence of Hospital-Acquired Illness or Injury Outcome: Ongoing, Progressing Goal: Optimal Comfort and Wellbeing Outcome: Ongoing, Progressing Goal: Readiness for Transition of Care Outcome: Ongoing, Progressing Problem: Infection Goal: Absence of Infection Signs and Symptoms Outcome: Ongoing, Progressing Intervention: Prevent or Manage Infection Flowsheets Taken 01/11/2025 0445 by Aimee Luis Isolation Precautions: precautions maintained Taken 01/10/2025 1203 by Gabe Craig RN Infection Management: aseptic technique maintained Fever Reduction/Comfort Measures: lightweight bedding lightweight clothing fluid intake increased Problem: Skin Injury Risk Increased Goal: Skin Health and Integrity Outcome: Ongoing, Progressing Intervention: Optimize Skin Protection Flowsheets Taken 01/11/2025 0757 by Bi Saini RN Head of Bed (HOB) Positioning: HOB at 30 degrees Taken 01/11/2025 0445 by Aimee Luis Activity Management: activity adjusted per tolerance Taken 01/10/2025 1203 by Gabe Craig, RN Pressure Reduction Techniques: frequent weight shift encouraged sit time limited to 2 hours Pressure Reduction Devices: pressure-redistributing mattress utilized specialty bed utilized Skin Protection: incontinence pads utilized Intervention: Promote and Optimize Oral Intake Flowsheets (Taken 01/11/2025 0757) Nutrition Interventions: food preferences provided Problem: Fall Injury Risk Goal: Absence of Fall and Fall-Related Injury Outcome: Ongoing, Progressing Intervention: Identify and Manage Contributors Flowsheets (Taken 01/10/2025 1203 by Gabe Craig, RN) Medication Review/Management: medications reviewed Self-Care Promotion: independence encouraged Intervention: Promote Injury-Free Environment Flowsheets (Taken 01/10/2025 1900 by Aimee Luis) Safety Promotion/Fall Prevention: clutter-free environment maintained fall prevention program maintained Problem: Sepsis/Septic Shock Goal: Optimal Coping Outcome: Ongoing, Progressing Intervention: Support Patient and Family Response Flowsheets Taken 01/11/2025 0757 by Bi Saini RN Supportive Measures: active listening utilized Taken 01/11/2025 035 by Aimee Luis Family/Support System Care: support provided Goal: Absence of Bleeding Outcome: Ongoing, Progressing Intervention: Monitor and Manage Bleeding Flowsheets Taken 01/11/2025 0757 by Bi Saini RN Bleeding Management: dressing monitored Taken 01/11/2025 0142 by Aimee Luis Bleeding Precautions: blood pressure closely monitored Goal: Blood Glucose Level Within Target Range Outcome: Ongoing, Progressing Intervention: Optimize Glycemic Control Flowsheets (Taken 01/11/2025 0353 by Aimee Luis) Hyperglycemia Management: correctional insulin given blood glucose monitored Hypoglycemia Management: blood glucose monitored Goal: Absence of Infection Signs and Symptoms Outcome: Ongoing, Progressing Intervention: Initiate Sepsis Management Flowsheets Taken 01/11/2025 0353 by Aimee Luis Infection Prevention: rest/sleep promoted Taken 01/10/2025 1203 by Gabe Craig, RN Infection Management: aseptic technique maintained Intervention: Promote Stabilization Flowsheets (Taken 01/10/2025 120 by Gabe Craig, RN) Fever Reduction/Comfort Measures: lightweight bedding lightweight clothing fluid intake increased Intervention: Promote Recovery Flowsheets (Taken 01/11/2025 0445 by Aimee Luis) Activity Management: activity adjusted per tolerance Goal: Optimal Nutrition Delivery Outcome: Ongoing, Progressing Intervention: Optimize Nutrition Delivery Flowsheets (Taken 01/11/2025 0757) Nutrition Interventions: food preferences provided Problem: Bariatric Environmental Safety Goal: Safety Maintained with Care Outcome: Ongoing, Progressing Intervention: Promote Safety and Comfort Flowsheets (Taken 01/11/2025 0142 by Aimee Luis) Bariatric Safety: specialty bed utilized * Care Plan - Aimee Luis - 01/11/2025 3:57 AM EDT Problem: Adult Inpatient Plan of Care Goal: Plan of Care Review 01/11/2025 0353 by Aimee Luis Outcome: Ongoing, Progressing Flowsheets (Taken 01/10/2025 0740 by Alexandria Brooks) Progress: improving Plan of Care Reviewed With: patient 01/11/2025 0142 by Aimee Luis Outcome: Ongoing, Progressing Flowsheets (Taken 01/10/2025 0740 by Alexandria Brooks) Progress: improving Plan of Care Reviewed With: patient Goal: Patient-Specific Goal (Individualized) 01/11/2025 0353 by Aimee Luis Outcome: Ongoing, Progressing Flowsheets (Taken 01/11/2025 0000) Patient/Family-Specific Goals (Include Timeframe): pt will remain injury free Individualized Care Needs: safety Anxieties, Fears or Concerns: none 01/11/2025 0142 by Aimee Luis Outcome: Ongoing, Progressing Flowsheets (Taken 01/11/2025 0000) Patient/Family-Specific Goals (Include Timeframe): pt will remain injury free Individualized Care Needs: safety Anxieties, Fears or Concerns: none Goal: Absence of Hospital-Acquired Illness or Injury 01/11/2025 0353 by Aimee Luis Outcome: Ongoing, Progressing 01/11/2025 0142 by Aimee Luis Outcome: Ongoing, Progressing Intervention: Identify and Manage Fall Risk Flowsheets (Taken 01/10/2025 1900) Safety Promotion/Fall Prevention: clutter-free environment maintained fall prevention program maintained Intervention: Prevent Skin Injury Flowsheets Taken 01/11/2025 0000 by Aimee Luis Body Position: other (see comments) Taken 01/10/2025 1203 by Gabe Craig RN Skin Protection: incontinence pads utilized Intervention: Prevent and Manage VTE (Venous Thromboembolism) Risk Flowsheets (Taken 01/11/2025 0000) VTE Prevention/Management: patient refused intervention education provided Intervention: Prevent Infection Flowsheets (Taken 01/11/2025 0353) Infection Prevention: rest/sleep promoted Goal: Optimal Comfort and Wellbeing 01/11/2025 0353 by Aimee Luis Outcome: Ongoing, Progressing 01/11/2025 0142 by Aimee Luis Outcome: Ongoing, Progressing Intervention: Monitor Pain and Promote Comfort Flowsheets (Taken 01/11/2025 0353) Pain Management Interventions: medication (see MAR) care clustered relaxation techniques promoted rest position adjusted Intervention: Provide Person-Centered Care Flowsheets (Taken 01/11/2025 0353) Trust Relationship/Rapport: care explained choices provided emotional support provided empathic listening provided questions answered questions encouraged thoughts/feelings acknowledged reassurance provided Goal: Readiness for Transition of Care 01/11/2025 035 by Aimee Luis Outcome: Ongoing, Progressing 01/11/2025 014 by Aimee Luis Outcome: Ongoing, Progressing Intervention: Mutually Develop Transition Plan Flowsheets (Taken 01/10/2025 1200 by Evelyn Nova RN) Equipment Currently Used at Home: ([employer]) commode chair walker, rolling wheelchair, manual oxygen Current Outpatient/Agency/Support Group: ([facility] homecare agency Transportation Anticipated: medical transport Transportation Concerns: rides, unreliable from others Patient/Family Anticipates Transition to: home with family Problem: Infection Goal: Absence of Infection Signs and Symptoms 01/11/2025 0353 by Aimee Luis Outcome: Ongoing, Progressing 01/11/2025 014 by Aimee Luis Outcome: Ongoing, Progressing Intervention: Prevent or Manage Infection Flowsheets Taken 01/11/2025 0000 by Aimee Luis Isolation Precautions: precautions maintained Taken 01/10/2025 1203 by Craig, Gabe, RN Infection Management: aseptic technique maintained Fever Reduction/Comfort Measures: lightweight bedding lightweight clothing fluid intake increased Problem: Skin Injury Risk Increased Goal: Skin Health and Integrity 01/11/2025 035 by Aimee Luis Outcome: Ongoing, Progressing 01/11/2025 0142 by Aimee Luis Outcome: Ongoing, Progressing Intervention: Optimize Skin Protection Flowsheets Taken 01/11/2025 0000 by Aimee Luis Activity Management: activity adjusted per tolerance Head of Bed (HOB) Positioning: HOB at 45 degrees Taken 01/10/2025 1203 by Gabe Craig, RN Pressure Reduction Techniques: frequent weight shift encouraged sit time limited to 2 hours Pressure Reduction Devices: pressure-redistributing mattress utilized specialty bed utilized Skin Protection: incontinence pads utilized Intervention: Promote and Optimize Oral Intake Flowsheets (Taken 01/11/2025 035) Nutrition Interventions: referred to dietitian Problem: Fall Injury Risk Goal: Absence of Fall and Fall-Related Injury 01/11/2025 035 by Aimee Luis Outcome: Ongoing, Progressing 01/11/2025 014 by Aimee Luis Outcome: Ongoing, Progressing Intervention: Identify and Manage Contributors Flowsheets (Taken 01/10/2025 1203 by Gabe Craig, RN) Medication Review/Management: medications reviewed Self-Care Promotion: independence encouraged Intervention: Promote Injury-Free Environment Flowsheets (Taken 01/10/2025 1900) Safety Promotion/Fall Prevention: clutter-free environment maintained fall prevention program maintained Problem: Sepsis/Septic Shock Goal: Optimal Coping 01/11/2025 035 by Aimee Luis Outcome: Ongoing, Progressing 01/11/2025 014 by Aimee Luis Outcome: Ongoing, Progressing Intervention: Support Patient and Family Response Flowsheets (Taken 01/11/2025 0353) Family/Support System Care: support provided Goal: Absence of Bleeding 01/11/2025352 by Aimee Luis Outcome: Ongoing, Progressing 01/11/2025 014 by Aimee Luis Outcome: Ongoing, Progressing Intervention: Monitor and Manage Bleeding 01/11/2025352 by Aimee Luis Flowsheets (Taken 01/11/2025 014) Bleeding Precautions: blood pressure closely monitored 01/11/2025 014 by Aimee Luis Flowsheets (Taken 01/11/2025 014) Bleeding Precautions: blood pressure closely monitored Goal: Blood Glucose Level Within Target Range 01/11/2025352 by Aimee Luis Outcome: Ongoing, Progressing 01/11/2025 014 by Aimee Luis Outcome: Ongoing, Progressing Intervention: Optimize Glycemic Control Flowsheets (Taken 01/11/2025352) Hyperglycemia Management: correctional insulin given blood glucose monitored Hypoglycemia Management: blood glucose monitored Goal: Absence of Infection Signs and Symptoms 01/11/2025 035 by Aimee Luis Outcome: Ongoing, Progressing 01/11/2025141 by Aimee Luis Outcome: Ongoing, Progressing Intervention: Initiate Sepsis Management Flowsheets Taken 01/11/2025 035 by Aimee Luis Infection Prevention: rest/sleep promoted Taken 01/11/2025 0000 by Aimee Luis Isolation Precautions: precautions maintained Taken 01/10/2025 1203 by Gabe Craig, RN Infection Management: aseptic technique maintained Intervention: Promote Stabilization Flowsheets (Taken 01/10/2025 1203 by Gabe Craig, RN) Fever Reduction/Comfort Measures: lightweight bedding lightweight clothing fluid intake increased Goal: Optimal Nutrition Delivery 01/11/2025352 by Aimee Luis Outcome: Ongoing, Progressing 01/11/2025141 by Aimee Luis Outcome: Ongoing, Progressing Intervention: Optimize Nutrition Delivery Flowsheets (Taken 01/11/2025 035) Nutrition Interventions: referred to dietitian Problem: Bariatric Environmental Safety Goal: Safety Maintained with Care 01/11/2025352 by Aimee Luis Outcome: Ongoing, Progressing 01/11/2025 014 by Aimee Luis Outcome: Ongoing, Progressing Intervention: Promote Safety and Comfort 01/11/2025352 by Aimee Luis Flowsheets (Taken 01/11/2025 014) Bariatric Safety: specialty bed utilized 01/11/2025141 by Aimee Luis Flowsheets (Taken 01/11/2025 014) Bariatric Safety: specialty bed utilized * Progress Notes - Gabe Craig RN - 01/10/2025 4:16 PM EDT Nursing report called to bi MADIOSN on . Patient prepared for transport to . * Progress Notes - Neo Viera MD - 01/10/2025 2:22 PM EDT Subjective Ms. Ulloa reports feeling better this morning. Has increased energy. She has not noticed furtherbleeding. Nursing reports less bleeding overnight and into this morning. She reports no lightheadedness or dizziness. Review of Systems Reports fair strength, close to her baseline; reports eating well Objective Last Recorded Vitals Blood pressure 132/77, pulse 86, temperature 37.1 ??C (98.8 ??F), temperature source Oral, resp. rate 20, height 1.6 m (5' 3 ), weight 196 kg (431 lb 3.5 oz), SpO2 97%. Physical Exam General: well appearing, resting in bed Pul: normal effort, no distress Neuro: alert, oriented Psych: pleasant; appropriate mood and behavior Assessment/Plan Ms. Ulloa is a 54 year old woman with obesity, functional paraplegia, HFpEF, 2nd degree AV blcoks/p PPM with revision, T2DM, OHS on 2L that presented with hypotension and concern for shock and was found to have acute blood loss anemia from uterine bleeding. *Acute blood loss anemia due to abnormal uterine bleeding -post-menopausal; possible endometrial hyperplasia or malignancy, although differential broad; imaging limited due to body habitus -initially started on Provera 20 mg BID; changed to megestrol acetate per [employer]ER recs -net technical architect planning on OR for exam under anesthesia, D&C and placement of IUD *Hypotension due to acute blood loss anemia -initial concern for shock but lactates normal, likely body habitus made blood pressure cuff measurement challegning -weaned of norepiniphrine and given 1L fluid and 1 unit of PRBC -currently on midodrine *Acute on Chronic Hypoxic Resp Failure -hx of obesity hypoventilation syndrome; initially on high flow nasal canula; ? Etiology; anemia may have contributed; quickly weaned to home 2L -chest x-ray personally reviewed and mild congestion -improved to baseline *Second degree AV block s/p dual chamber PPM (12/05/24) s/p atrial lead replacement (12/29/24) -Recent dual chamber pacing with LBBAP (RAA & left anterior fascicle pacing) with Dr. Manoj Banda -TTE (12/05/24): EF 68%, paradoxical septal motion, moderate global RV hypokinesis - cardiology interrogated PPM on arrival which is positioned and functioning appropriately -TTE pending *Chronic heart failure with preserved EF -carries diagnosis; discharged from [facility] on torsemide 40mg, spironolactone 25mg, metoprolol tartrate 12.5mg BID; felt not a candidate for SGLT due to size and immobility -TTE pending -holding diuretics and BP meds for now given hypotension requiring midodrine *Hypothyroidism -TSH normal; cont home levothyroxine *T2DM -HbA1c 6.6; cont correction insulin *RLS -cont ropinorole *Mood disorder -cont home bupropion *Morbid obesity, functional paraplegia -BMI 76; PT/OT; transferring to room with bariatric peggy lift -on semaglutide as outpatient * Progress Notes - Evelyn Nova RN - 01/10/2025 12:36 PM EDT Case Management Adult Initial Progress Note Stacey Ulloa 54 y.o. female CSN: [id number] Admission: 01/07/2025 11:00 AM Primary Problem: Shock (CMS/HCC) Crabber reviewed chart and spoke with patient at bedside to complete this Initial Case Management Assessment. PCP: Vahid Garcia DO Emergency Contact: Extended Emergency Contact Information Primary Emergency Contact: Hari Cook Mobile Relation: Son Preferred language: Cymro Learning Disabilities Specialist needed? No Insurance: Primary Visit Coverage Payer Plan Sponsor Code Group Number Group Name [employer] MEDICARE HU[employer]NA GOLD PLUS [id number] Primary Visit Coverage Subscriber Subscriber ID Subscriber Name Subscriber N Subscriber Address [id number] STACEY ULLOA [id number] [address] [id number] Secondary Visit Coverage Payer Plan Sponsor Code Group Number Group Name [employer] [employer] [place] Secondary Visit Coverage Subscriber Subscriber ID Subscriber Name Subscriber SSN Subscriber Address [id number] STACEY ULLOA [id number] [address] [place] [address] Patient information: Primary Caregiver: Self Support System: Immediate family Daily Living Activities: Functional Status: Moderate assistance Living Arrangements: Children (2 adult sons and daughter in law) Type of Residence: Private residence, Single Level (no steps to front door) [address] [place] [id number] Current DME: Equipment Currently Used at Home: commode chair, walker, rolling, wheelchair, manual, oxygen ([employer]) Income Information: Income Source: Disabled ($987/month) Income/Expense Information: Expenses exceed income Current Resources Utilized: [employer] [place] ($446/month) Housing Circumstances-Z Codes: Housing Circumstances (select all that apply): Low Income (101-300% Federal Poverty Guidlines) - Z596 Patient Referred to: None Anticipated Discharge Date: TBD Patient's Discharge Goal: Patient/Family Anticipates Transition to: home with family Assistance Available at Discharge: Current Outpatient/Agency/Support Group: homecare agency ([facility]) Discharge Transport: Transportation Anticipated: medical transport Follow Up Transport: Transportation Needed to Follow up Appoinments: Family/Friend will Provide Home Health / Home Infusion / Outpatient Dialysis Services: Patient is current with [email or web address] . PT/OT, nursing and SW. Living Will/Advance Directive/Power of Slusher Operator /Guardian: None Additional Comments: Patient admitted for weakness, fatigue, hypotension, and SOB. Patient required pressors for hypotension, so was admitted to MICU. Patient severely anemic from vaginal bleeding requiring blood transfusion. [facility] [facility] [employer] [facility]ER consulted. Patient transferred [place] [facility] [place]. Patient has home oxygen through [employer]. RNCM will continue to monitor for further discharge needs. Evelyn Nova RN * Progress Notes - Aleida Ingram MD - 01/10/2025 12:16 PM EDT Gynecology Progress Note Subjective Reports feeling better today. States that her chux were only changed once overnight. Denies abdominal pain, dizziness, or nausea/vomiting. Objective Physical Exam Constitutional: Appearance: Normal appearance. HENT: Head: Normocephalic and atraumatic. Cardiovascular: Rate and Rhythm: Normal rate. Pulmonary: Effort: Pulmonary effort is normal. No respiratory distress. Neurological: General: No focal deficit present. Mental Status: She is alert and oriented to person, place, and time. Skin: General: Skin is warm and dry. Psychiatric: Mood and Affect: Mood normal. Behavior: Behavior normal. Labs: Lab Results Component Value Date WBC 8.64 01/10/2025 HGB 7.7 (L) 01/10/2025 HCT 25.9 (L) 01/10/2025 MCV 89 01/10/2025 PLT 317 01/10/2025 NEUTROABS 15.87 (H) 01/07/2025 GLUCOSE 198 (H) 01/09/2025 BUN 31 (H) 01/09/2025 CREATININE 0.86 01/09/2025 NA 138 01/09/2025 K 5.3 (H) 01/09/2025 CL 104 01/09/2025 CO2 28 01/09/2025 MG 1.7 (L) 01/08/2025 CALCIUM 8.3 (L) 01/09/2025 Imaging: Assessment/Plan Stacey Ulloa is a 54 y.o. with PMB # PMB - Menopause at 49 yo, two years without bleeding - Irregular bleeding since, worsening over the past few months - Current bleeding episode started two weeks ago while admitted to OSH, heavy bleeding w/ large clots - Difficult to quantify w/ pad counts, using chucks pads while in hospital. Incontinent and using depends at home, but having to change more frequently when she is bleeding - Describes golfball sized clots with bleeding - Inconclusive US completed while at [facility], 12/30: nondiagnostic, poorly visualized uterus measuring 13.3 x 4.4 x 6.7; no focal lesion, unable to visualize endometrium, nabothian cyst - Last pap smear 24 years ago, no history of abnormal - 78 pack year smoking history - TVUS 01/09: unable to visualize uterus - Postmenopausal bleeding with associated anemia concerning for endometrial hyperplasia or malignancy. Cannot exclude other [employer] pathologies contributing to bleeding such as cervical malignancy, fibroid, endometrial polyp, etc. given no pap smear x24 years, history of cigarette smoking, and limited PUL[employer]ER [employer] BLENDER care since her last . Recommendations: - Recommend continuation discontinuing Provera 20 mg BID and starting Megace 40 daily in the setting of concern for endometrial hyperplasia - Continue nursing pad counts to attempt to better quantify patient's bleeding - Will ultimately need PUL[employer]ER [employer] BLENDER exam and tissue sampling for diagnosis. Patient's body habitus and current clinical condition significantly limit ability to do so at this time. Will likely need to go to the OR for EUA, D&C, and placement of Mirena IUD when she is medically stable to do so. Can also consider attempting EMB in the office to avoid anesthesia if patient is able to tolerate. Will need preoperative clearance with Anesthesia if she goes to OR. # Rest of care per primary team Dispo: P[employer] BLENDER will continue to follow. Please message on-call P[employer]ER resident via [employer] Secure Chat or page [phone] (M-F 6a-6p) or [phone] (nights/weekends) for questions or concerns regarding this patient's care. Aleida Ingram MD Obstetrics & Gynecology, PGY-1 Cosigned by Ozzy Gutierrez MD at 01/14/2025 4:14 PM EDT Associated attestation - Ozzy Gutierrez MD - 01/14/2025 4:14 PM EDT I saw and evaluated the patient with the resident/fellow. I discussed the case with the resident/fellow and agree with the findings and plan as documented. * Care Plan - Gabe Craig RN - 01/10/2025 12:04 PM EDT Problem: Adult Inpatient Plan of Care Goal: Plan of Care Review Outcome: Ongoing, Not Progressing Goal: Patient-Specific Goal (Individualized) Outcome: Ongoing, Not Progressing Goal: Absence of Hospital-Acquired Illness or Injury Outcome: Ongoing, Not Progressing Intervention: Identify and Manage Fall Risk Flowsheets (Taken 01/10/2025 1203) Safety Promotion/Fall Prevention: activity supervised assistive device/personal items within reach clutter-free environment maintained fall prevention program maintained lighting adjusted mobility aid in reach nonskid shoes/slippers when out of bed room organization consistent safety round/check completed toileting scheduled Goal: Optimal Comfort and Wellbeing Outcome: Ongoing, Not Progressing Goal: Readiness for Transition of Care Outcome: Ongoing, Not Progressing Problem: Infection Goal: Absence of Infection Signs and Symptoms Outcome: Ongoing, Not Progressing Intervention: Prevent or Manage Infection Flowsheets (Taken 01/10/2025 1203) Infection Management: aseptic technique maintained Fever Reduction/Comfort Measures: lightweight bedding lightweight clothing fluid intake increased Isolation Precautions: precautions maintained Problem: Skin Injury Risk Increased Goal: Skin Health and Integrity Outcome: Ongoing, Not Progressing Intervention: Optimize Skin Protection Flowsheets (Taken 01/10/2025 1203) Activity Management: activity adjusted per tolerance up in chair Pressure Reduction Techniques: frequent weight shift encouraged sit time limited to 2 hours Pressure Reduction Devices: pressure-redistributing mattress utilized specialty bed utilized Skin Protection: incontinence pads utilized Problem: Fall Injury Risk Goal: Absence of Fall and Fall-Related Injury Outcome: Ongoing, Not Progressing Intervention: Identify and Manage Contributors Flowsheets (Taken 01/10/2025 1203) Medication Review/Management: medications reviewed Self-Care Promotion: independence encouraged Intervention: Promote Injury-Free Environment Flowsheets (Taken 01/10/2025 1203) Safety Promotion/Fall Prevention: activity supervised assistive device/personal items within reach clutter-free environment maintained fall prevention program maintained lighting adjusted mobility aid in reach nonskid shoes/slippers when out of bed room organization consistent safety round/check completed toileting scheduled Problem: Adult Inpatient Plan of Care Goal: Plan of Care Review Outcome: Ongoing, Not Progressing Goal: Patient-Specific Goal (Individualized) Outcome: Ongoing, Not Progressing Goal: Absence of Hospital-Acquired Illness or Injury Outcome: Ongoing, Not Progressing Intervention: Identify and Manage Fall Risk 01/10/2025 1204 by Gabe Craig RN Flowsheets (Taken 01/10/2025 1204) Safety Promotion/Fall Prevention: activity supervised clutter-free environment maintained fall prevention program maintained Note: Remain injury free till 1900 through shift. 01/10/2025 1203 by Gabe Craig RN Flowsheets (Taken 01/10/2025 1203) Safety Promotion/Fall Prevention: activity supervised assistive device/personal items within reach clutter-free environment maintained fall prevention program maintained lighting adjusted mobility aid in reach nonskid shoes/slippers when out of bed room organization consistent safety round/check completed toileting scheduled Goal: Optimal Comfort and Wellbeing Outcome: Ongoing, Not Progressing Goal: Readiness for Transition of Care Outcome: Ongoing, Not Progressing Problem: Infection Goal: Absence of Infection Signs and Symptoms Outcome: Ongoing, Not Progressing Intervention: Prevent or Manage Infection Flowsheets (Taken 01/10/2025 1203) Infection Management: aseptic technique maintained Fever Reduction/Comfort Measures: lightweight bedding lightweight clothing fluid intake increased Isolation Precautions: precautions maintained Problem: Skin Injury Risk Increased Goal: Skin Health and Integrity Outcome: Ongoing, Not Progressing Intervention: Optimize Skin Protection Flowsheets (Taken 01/10/2025 1203) Activity Management: activity adjusted per tolerance up in chair Pressure Reduction Techniques: frequent weight shift encouraged sit time limited to 2 hours Pressure Reduction Devices: pressure-redistributing mattress utilized specialty bed utilized Skin Protection: incontinence pads utilized Problem: Fall Injury Risk Goal: Absence of Fall and Fall-Related Injury Outcome: Ongoing, Not Progressing Intervention: Identify and Manage Contributors Flowsheets (Taken 01/10/2025 1203) Medication Review/Management: medications reviewed Self-Care Promotion: independence encouraged Intervention: Promote Injury-Free Environment Flowsheets (Taken 01/10/2025 1203) Safety Promotion/Fall Prevention: activity supervised assistive device/personal items within reach clutter-free environment maintained fall prevention program maintained lighting adjusted mobility aid in reach nonskid shoes/slippers when out of bed room organization consistent safety round/check completed toileting scheduled * Progress Notes - Alla Peters RN - 01/10/2025 11:52 AM EDT New consult for coccyx/sacrum, left chest and abdomen. Recommendations based on photos in chart.Perreview of photos in chart coccyx sacrum with poorly defined rash with white papules and partial thickness linear fissure at base of gluteal cleft, atypical presentation for pressure injury, presentation consistent with intertriginous dermatitis from perspiration trapping in folds (pt continent per flowsheet documentation), recommend miconazole antifungal powder, turn Q2. Linear scar with area of crust/eschar to left chest, recommend to leave open to air, keep clean and dry. Linear fissure at base of abdominal fold consistent with intertriginous dermatitis, recommend to separate folds to wick moisture. Assessment deferred to primary nurse. No further wound interventions required at this time, please re-consult wound care with concerns. * Care Plan - Gabe Craig RN - 01/10/2025 8:59 AM EDT Problem: Adult Inpatient Plan of Care Goal: Plan of Care Review Outcome: Ongoing, Not Progressing Goal: Patient-Specific Goal (Individualized) Outcome: Ongoing, Not Progressing Goal: Absence of Hospital-Acquired Illness or Injury Outcome: Ongoing, Not Progressing Goal: Optimal Comfort and Wellbeing Outcome: Ongoing, Not Progressing Goal: Readiness for Transition of Care Outcome: Ongoing, Not Progressing Problem: Infection Goal: Absence of Infection Signs and Symptoms Outcome: Ongoing, Not Progressing Problem: Skin Injury Risk Increased Goal: Skin Health and Integrity Outcome: Ongoing, Not Progressing Problem: Fall Injury Risk Goal: Absence of Fall and Fall-Related Injury Outcome: Ongoing, Not Progressing * Progress Notes - Naga Young - 01/10/2025 8:56 AM EDT Physical Therapy Evaluation Patient Name: Stacey Ulloa Today's Date: 01/10/2025 PT Discharge Recommendations: Home with 24 hour assistance, Home health PT, Home health OT Equipment Recommended: Patient owns appropriate equipment History Stacey Ulloa is 54 y.o. female admitted 01/07/2025 for work-up of Shock (CMS/[facility]). Problem List Active Hospital Problems Diagnosis Date Noted Shock (CMS/HCC) 01/07/2025 Class III obesity with body mass index (BMI) of 40.0 or higher (CMS/HCC) 01/07/2025 Procedures Past Medical History Patient has no past medical history on file. Past Surgical History Patient has no past surgical history on file. Precautions Medical Precautions: Fall precautions Subjective Reports that she has not been out of bed yet Participants in Care Family/Caregiver Present: No Learning Disabilities Specialist: Not Applicable Presentation Oxygen Therapy: Supplemental oxygen O2 Flow Rate (L/min): 2 L/min Pre-Session: Supine, Lines intact Pre-Session Comments: RN and patient agreeable Post-Session: Sitting in chair, Call light in reach, RN notified, Chair alarm, Lines intact Post-Session Comments: all needs met Home Living/Set-up Lives With: Adult, Son Home Type: Mobile home Home Adaptive Equipment: Wheelchair-manual, Rolling walker, Rollator Home Layout: One level (ramp to enter) Bathroom: Tub/Shower: Tub/Shower combo Bathroom: Toilet: Standard Prior Level of Function Receives Help From: Son Level of Mobility: Wheelchair/Scooter Mobility [place]: Assist with wheelchair propulsion ADL Performance: Needs assistance Bathing: Needs assist Upper Body Dressing: Independent Lower Body Dressing: Needs assist Grooming: Independent Toileting: Independent Eating: Independent Home Management Skills: Needs assist Patient/Family Goals to go home safely Objective Pain Denied pain Delirium Screening Batista Agitation Sedation Scale (RASS): Alert and calm Confusion Assessment Method-ICU (CAM-ICU/PCAM-ICU) Feature 3: Altered Level of Consciousness: Negative Cognition Overall Cognitive Status: Within Functional Limits Arousal/Alertness: Appropriate responses to stimuli Mood/Behavior: Alert Orientation Level: Oriented X4 Single Step Commands: Consistently Multi-Step Commands: Consistently Method of Communication: Verbal Right Upper Extremity Examination RUE Assessment: Within Functional Limits Manual Muscle Testing - RUE: Within functional limits Sensation Light Touch: Right Upper Extremity: Mild impairment Left Upper Extremity Examination LUE ROM Assessment LUE Assessment: Within Functional Limits Manual Muscle Testing - LUE Manual Muscle Testing - LUE: Within functional limits Sensation Light Touch: Left Upper Extremity: Mild impairment Right Lower Extremity Examination RLE ROM Assessment RLE Assessment: Within Functional Limits Manual Muscle Testing - RLE Manual Muscle Testing - RLE: Within functional limits Sensation Light Touch: Right Lower Extremity: Intact Left Lower Extremity Examination LLE Assessment: Within Functional Limits Manual Muscle Testing: Within functional limits Sensation Light Touch: Left Lower Extremity: Intact Bed Mobility Bed Mobility Exam: Supine to Sit Level of [place]: Minimum assist (75% patient's effort) Physical/Nonphysical Assist: Set-up required, Verbal Cues, HOB elevated Assistive Device: Bed rails Transfers Transfer Exam: Sit to stand Level of [place]: Minimum assist (75% patient's effort) Physical/Nonphysical Assist: Set-up required, Verbal Cues Assistive Device: Hand held assist Transfer Exam: Stand to Sit Level of [place]: Minimum assist (75% patient's effort) Physical/Nonphysical Assist: Set-up required, Verbal Cues Assistive Device: Hand held assist Transfer Exam: Bed to Chair/Chair to Bed Level of [place]: Minimum assist (75% patient's effort) Physical/Nonphysical Assist: Set-up required, Verbal Cues Type of Transfer: Sidesteps Assistive Device: Hand held assist Ambulation Ambulation Comments: patient does not ambulate at baseline Balance Postural Appearance Posture: Stooped posture, Forward head, Rounded shoulders Static Sitting Balance Static Sitting-Balance Support: Feet supported, Left upper extremity support, Right upper extremitysupport Static Sitting-Level of Assistance: Standby assist Dynamic Sitting Balance Dynamic Sitting-Balance Support: Right upper extremity support, Left upper extremity support, Feet supported Dynamic Sitting-Balance: Trunk control activities, Anterior/Posterior weight shifts, Lateral weightshifts Level of Assistance: Standby assisst Static Standing Balance Static Standing-Balance Support: Left upper extremity support, Right upper extremity support Static Standing-Level of Assistance: Minimum assistance Dynamic Standing Balance Dynamic Standing-Balance Support: Right upper extremity support, Left upper extremity support Dynamic Standing-Balance: Anterior/Posterior weight shifts, Lateral weight shifts Dynamic Standing Level of Assistance: Minimum assistance Therapeutic Activity (10 minutes) Activity training consisted of bed mobility, prolonged sitting at edge of bed with static and dynamic balance activities, sit to/from stand, prolonged standing with dynamic functional task completion, and functional transfer from bed to chair. Patient required verbal and tactile cues for initiationand completion of all mobility tasks. Skilled manual assistance needed for movements in order to complete tasks. Skilled monitoring of patient's vitals and presentation needed for safe advancement during training. Standardized Assessments Standardized Assessments Standardized Assessments: AMPAC 6-Clicks Mobility Assessment AMPA 6-Clicks Mobility Assessment Difficulty patient has turning over in bed (including adjusting bedclothes, sheets, and blankets)?:A little Difficulty patient has sitting down on and standing up from a chair with arms (wheelchair, bedside commode, etc.)?: A little Difficulty patient has moving from lying on back to sitting on the side of the bed?: A little How much help does the patient need moving to and from a bed to a chair (including a wheelchair)?: A little How much help does the patient need to walk in hospital room?: Unable How much help does the patient need climbing 3-5 steps with a railing?: Unable [facility] 6-Clicks Mobility Assessment Total : 14 No data recorded Assessment Patient provided good effort with therapy today. Progressing mobility training limited by impaired activity tolerance, weakness, impaired posture, and impaired balance, which is limiting patient fromperforming independent functional mobility. Patient is a high fall risk and will continue to benefit from skilled two person assistance for advancing mobility. Impairments: Decreased endurance, ventilation, and/or gas exchange, Impaired gait dynamics/performance, Impaired postural/trunk control, Decreased strength, Impaired locomotion, Impaired functional mobility/transfers, Impaired balance Activity Limitations: Inability to ambulate household distances, Inability to transfer independently, Inability to complete ADLs independently Participation Restrictions: Self-care, Home management, Community leisure Activity Tolerance: Tolerates 10 - 20 min activity with multiple rests Evaluation/Treatment Tolerance: Patient limited by fatigue, Treatment limited secondary to medical complications (Comment) Diagnosis: impaired functional mobility Rehab Potential: Good, to achieve stated therapy goals Barriers to Discharge: Comorbidities Eval Complexity History Profile: 3 or more personal factors and/or comorbidities Clinical Presentation: Evolving clinical presentation with changing characteristics Clinical Decision Making: Moderate complexity PT Recommendations Discharge Destination: Home with 24 hour assistance, Home health PT, Home health OT Discharge Equipment: Patient owns appropriate equipment Plan Planned PT Interventions Balance training, Bed mobility training, Gait training, Transfer training, ROM, Strengthening, Stretching, Functional Mobility, Postural re-education, Wheelchair management/propulsion training, Motorcoordination training PT Frequency 2 - 5 times per week PT Duration 2 weeks Goals PT GOAL DETAILS Time Frame PT Goal 1: Patient will complete all bed mobility tasks with CGA 2 weeks PT Goal 2: Patient will complete all sit to/from stands and stand-pivot transfers with CGA 2 weeks PT Goal 3: Patient will self-propel wheelchair continuously for > 100 feet with SBA 2 weeks Written by Naga Young on 01/10/25 at 12:59 PM. * Progress Notes - Demetrius Davila - 01/10/2025 8:55 AM EDT Occupational Therapy Evaluation Patient Name: Stacey Ulloa Today's Date: 01/10/2025 OT Discharge Recommendations: Home with 24 hour assistance, Home health PT, Home health OT Equipment Recommended: Patient owns appropriate equipment History Stacey Ulloa is 54 y.o. female admitted 01/07/2025 for work-up of Shock ([facility]). Problem List Active Hospital Problems Diagnosis Date Noted Shock ([facility]) 01/07/2025 Class III obesity with body mass index (BMI) of 40.0 or higher ([facility]) 01/07/2025 Procedures Past Medical History Patient has no past medical history on file. Past Surgical History Patient has no past surgical history on file. Precautions Medical Precautions: Fall precautions Subjective Patient agreeable to initial OT evaluation this a.m. Participants in Care Family/Caregiver Present: No Learning Disabilities Specialist: Not Applicable Presentation Oxygen Therapy: Supplemental oxygen O2 Delivery Method: Nasal cannula O2 Flow Rate (L/min): 2 L/min Lines and Tubes: Intravenous access Pre-Session: Supine, Lines intact Pre-Session Comments: RN and patient agreeable Post-Session: Sitting in chair, Call light in reach, RN notified, Chair alarm, Lines intact Post-Session Comments: all needs met Home Living/Set-up Lives With: Adult, Son Home Type: Mobile home Home Adaptive Equipment: Wheelchair-manual, Rolling walker, Rollator Home Layout: One level (ramp to enter) Bathroom: Tub/Shower: Tub/Shower combo Bathroom: Toilet: Standard Prior Level of Function Receives Help From: Son Level of Mobility: Wheelchair/Scooter Mobility [place]: Assist with wheelchair propulsion History of Falls: No ADL Performance: Needs assistance Bathing: Needs assist Upper Body Dressing: Independent Lower Body Dressing: Needs assist Grooming: Independent Toileting: Independent Eating: Independent Home Management Skills: Needs assist Patient/Family Goals Statement Objective Pain Patient with no c/o pain at this time. Delirium Screening Batista Agitation Sedation Scale (RASS): Alert and calm Confusion Assessment Method-ICU (CAM-ICU/PCAM-ICU) Feature 3: Altered Level of Consciousness: Negative Cognition Overall Cognitive Status: Within Functional Limits Arousal/Alertness: Appropriate responses to stimuli Mood/Behavior: Alert Orientation Level: Oriented X4 Single Step Commands: Consistently Multi-Step Commands: Consistently Method of Communication: Verbal Right Upper Extremity Examination RUE ROM Assessment RUE Assessment: Within Functional Limits Manual Muscle Testing - RUE: Within functional limits Sensation Light Touch: Right Upper Extremity: Mild impairment Left Upper Extremity Examination LUE ROM Assessment LUE Assessment: Within Functional Limits Manual Muscle Testing - LUE: Within functional limits Sensation Light Touch: Left Upper Extremity: Mild impairment Right Lower Extremity Examination RLE ROM Assessment RLE Assessment: Within Functional Limits Manual Muscle Testing - RLE: Within functional limits Sensation Light Touch: Right Lower Extremity: Intact Left Lower Extremity Examination LLE ROM Assessment LLE Assessment: Within Functional Limits Manual Muscle Testing: Within functional limits Sensation Light Touch: Left Lower Extremity: Intact Bed Mobility Bed Mobility Exam: Rolling/Turning Level of [place]: Minimum assist (75% patient effort) Physical/Nonphysical Assist: Verbal Cues Bed Mobility Exam: Scooting/Bridging Level of [place]: Minimum assist (75% patient's effort) Physical/Nonphysical Assist: Verbal Cues Bed Mobility Exam: Supine to Sit Level of [place]: Minimum assist (75% patient's effort) Physical/Nonphysical Assist: Set-up required, Verbal Cues, HOB elevated Transfers Transfer Exam: Sit to stand Level of [place]: Minimum assist (75% patient's effort) Physical/Nonphysical Assist: Set-up required, Verbal Cues Assistive Device: Hand held assist Transfer Exam: Stand to Sit Level of [place]: Minimum assist (75% patient's effort) Physical/Nonphysical Assist: Set-up required, Verbal Cues Assistive Device: Hand held assist Transfer Exam: Bed to Chair/Chair to Bed Level of [place]: Minimum assist (75% patient's effort) Physical/Nonphysical Assist: Set-up required, Verbal Cues Type of Transfer: Sidesteps Assistive Device: Hand held assist Functional Mobility Therapeutic Activity ( minutes) Please refer to bed mobility and transfers for intervention details. Patient required verbal cueingand physical assist (hand and feet placement) for set-up, initiation, facilitation, sequencing, andoverall execution of instructed tasks. Therapeutic activity focused on functional task training in order to promote functional strengthening, maximize activity tolerance, and enhance safety awareness. Self-Care Interventions Self Care/Home Management (ADLs) Time Entry: 10 Grooming Grooming Level of Assistance: Setup Grooming Where Assessed: Chair level Grooming Interventions: face washing, hair brushing, oral care Lower Extremity Dressing Sock Level of Assistance: Dependent Standardized Assessments Khari Index Feeding: Independent Bathing: Dependent Grooming: Independent face/hair/teeth/shaving (implements provided) Dressing: Needs help but can do about half unaided Bowels: Continent Bladder: Continent Toilet Use: Needs some help but can do some things alone Transfers (Bed to Chair and Back): Minor help (verbal or physical) Mobility (on Level Surfaces): Immobile or < 50 yards Stairs: Unable Total Score: 55 Assessment Patient states having 24 hour assist upon discharge and necessary DME. Barriers to function includedecreased endurance and decreased strength. OT Findings: Impaired ADL performance, Impaired IADL performance, Impaired functional mobility Evaluation/Treatment Tolerance: Patient limited by fatigue Rehab Potential: Good, to achieve stated therapy goals Barriers to Discharge: Comorbidities Eval Complexity Occupational Profile: Expanded review of medical/therapy records and additional review of physical,cognitive, or psychosocial history Performance Deficits: Activities of daily living (ADLs), Instrumental activities of daily living (IADLs), Leisure, Social participation Clinical Decision Making: Low Overall Eval complexity: Low OT Recommendations Discharge Destination: Home with 24 hour assistance, Home health PT, Home health OT Discharge Equipment: Patient owns appropriate equipment Plan Planned OT Interventions ADL retraining, Bed mobility Training, Strengthening, Transfer training, Functional mobility OT Frequency 2 - 5 times per week OT Duration 2 weeks Goals OT GOAL DETAILS Time Frame OT Goal 1: Patient will demo mod I with toilet transfers, 4/5 trials. 2 weeks OT Goal 2: Patient will demo mod I with all toileting tasks, 4/5 trials. 2 weeks OT Goal 3: Patient will demo independence with bilateral UE HEP, 4/5 trials. 2 weeks Written by Demetrius Davila on 01/10/25 at 1:23 PM. * Care Plan - Alexandria Brooks - 01/10/2025 7:40 AM EDT Problem: Adult Inpatient Plan of Care Goal: Plan of Care Review Outcome: Ongoing, Progressing Flowsheets (Taken 01/10/2025 0740) Progress: improving Plan of Care Reviewed With: patient Goal: Patient-Specific Goal (Individualized) Outcome: Ongoing, Progressing Goal: Absence of Hospital-Acquired Illness or Injury Outcome: Ongoing, Progressing Goal: Optimal Comfort and Wellbeing Outcome: Ongoing, Progressing Goal: Readiness for Transition of Care Outcome: Ongoing, Progressing Problem: Infection Goal: Absence of Infection Signs and Symptoms Outcome: Ongoing, Progressing Problem: Skin Injury Risk Increased Goal: Skin Health and Integrity Outcome: Ongoing, Progressing Problem: Fall Injury Risk Goal: Absence of Fall and Fall-Related Injury Outcome: Ongoing, Progressing * Care Plan - Gabe Byrne - 01/09/2025 2:22 PM EDT Problem: Adult Inpatient Plan of Care Goal: Plan of Care Review Outcome: Ongoing, Progressing Goal: Patient-Specific Goal (Individualized) Outcome: Ongoing, Progressing Goal: Absence of Hospital-Acquired Illness or Injury Outcome: Ongoing, Progressing Goal: Optimal Comfort and Wellbeing Outcome: Ongoing, Progressing Goal: Readiness for Transition of Care Outcome: Ongoing, Progressing Problem: Infection Goal: Absence of Infection Signs and Symptoms Outcome: Ongoing, Progressing Problem: Skin Injury Risk Increased Goal: Skin Health and Integrity Outcome: Ongoing, Progressing * Progress Notes - John Denton MD - 01/09/2025 1:03 PM EDT Subjective Reports that she was recently at the [facility] for the same thing. She returned homeand wasn't feeling well and very tired so went back to the hospital. Feeling ok now. Reports thatshe has had some vaginal bleeding in the past. Does not walk at home and has a son to help her. Denies feeling lightheaded Review of Systems Constitutional: Negative for chills and fever. Respiratory: Negative for choking and shortness of breath. Objective Physical Exam Gen: sitting up in bed, no acute distress CVS: distant heart sounds. No m/r/g Resp: decreased air entry in bases, no crackles GI: SNT : Hernández present Psych: euthymic Last Recorded Vitals Blood pressure (!) 137/49, pulse 85, temperature 37.1 ??C (98.8 ??F), temperature source Bladder, resp. rate 25, height 1.6 m (5' 3 ), weight 196 kg (431 lb 3.5 oz), SpO2 97%. Labs in last 18 hours CBC WBC 8.14 Hb 7.7 (L) Plt 284 Hct 25.3 (L) ANC ?? INR ??, PTT ??, Anti-Xa ?? BMP Na 138 Cl 104 BUN 31 (H) Glu 198 (H) K 5.3 (H) Co2 28 Cr 0.86 Ca 8.3 (L) iCa ?? Mg ??, Phos ?? Lactate ?? LFT AST 19 AlkPhos 89 T Prot 6.0 (L) ALK 9 (L) Bili <0.2 (L) Alb ?? D.Bili ?? Assessment/Plan Principal Problem: Shock (CMS/HCC) Active Problems: Class III obesity with body mass index (BMI) of 40.0 or higher (CMS/HCC) Ms. 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 Hypotension due to blood loss anemia -concern for shock but lactates normal, likely body habitus made blood pressure cuff measurement challegning -weaned of norepiniphrine and given 1L fluid, given 1 dose vanc/zosyn in ED -discussed with MICU and obtained handover -currently on midodrine Acute blood loss anemia due to abnormal uterine bleeding -gyne consulted and following -started on Provera 20 mg BID -gyne planning on tissue sampling for diagnosis, may require OR Acute on Chronic Hypoxic Resp Failure -initially on high flow nasal canula but weaned to 2L -chest x-ray personally reviewed and mild congestion -echo pending Second degree AV block s/p dual chamber PPM (12/05/24) s/p atrial lead replacement (12/29/24) - Recent dual chamber pacing with LBBAP (RAA & left anterior fascicle pacing) with Dr. Aranda at [facility] - TTE (12/05/24): EF 68%, paradoxical septal motion, moderate global RV hypokinesis - cardiology interrogated PPM on arrival which is positioned and functioning appropriately - Formal TTE pending #Heart failure with preserved EF - Carries diagnosis formally although bedside POCUS on arrival to not suggestive of gross diastolic dysfunction; there is paradoxical septal motion which may be result of various conditions including PH or OHS - Discharged from [facility] on torsemide 40mg, spironolactone 25mg, metoprolol tartrate 12.5mg BID; feltnot a candidate for SGLT due to size and immobility - Formal TTE pending -holding diuretics given hypotension Other chronic conditions #Hypothyroidism: TSH/FT4 wnl on arrival; cont home Synthroid 300mg as able #DM2: A1c 6.6 #RLS: ropinorole #Mood: resume home Wellbutrin #morbid obesity: complicates all aspects of care, on ozempic #functional paraplegia: high nursing demands Acute threat to life/bodily function: blood loss anemia Discussion of management/test with another provider discussed with MICU XR personally reviewed, showing pulmonary vascular congestion * Transfer of Care - Trey Anthony MD - 01/09/2025 10:15 AM EDT MICU Transfer Note Summary of Hospital Course: Ms. Ulloa is 54yo female with PMH of morbid obesity (BMI 76), reported HFpEF, 2nd degree AV block s/p DC-PPM with revision, DM2, OHS on 2L NC baseline who presented to [facility] believed to be in undifferentiated shock requiring levophed. Patient incredibly difficult placement for rosendo and required blood pressure cuff on the right calf. Patient became lightheaded when levophed was initially weanedbut UOP remained appropriate and lactic acids were normal. The etiology of her hypotension/shock isunclear, but infectious workup is unrevealing the patient is well-appearing off antibiotics. There is likely a component of severe anemia related to the patient's vaginal bleeding with large clots she has been having for the last two weeks. She has been evaluated by OBGYN with c/f endometrial hyperplasia and recommended starting on oral Provera. The patient required blood transfusion 01/09. She was started on midodrine 10mg TID (which she was previously on during [facility] hospitalization earlier this month) with strong response in blood pressure. Last BP per cuff 147/55. AM cortisol level this morning was appropriate. She is on baseline NC with 2L. Patient is being transferred from ICU team to [facility]. Major Active Problems: Abnormal uterine bleeding c/b anemia Hypotension Major Resolved Problems: Undifferentiated shock Antibiotics being administered: None Patient was not intubated during this stay Patient was in shock during this stay. Off vasopressors 01/08 Other Follow up items: Gynecologic needs, formal TTE Patient's condition at Transfer: Patient's oxygen requirement is currently 2L and is expected to need oxygen at DC (already has homesupply) Patient has a hernández Patient has following lines/tubes: PIVs Patient has not had encephalopathy Patient does not require telemetry PT is following patient Patient's current diet is: Regular DVT Prophylaxis is SCDs Patient Disposition: The current anticipated discharge disposition is Home in approximately TBD Post hospital follow up appointments needed are: PCP, gynecology Handoff information: Romo exam findings at the time of transfer are: GENERAL: morbidly obese, pleasant, no acute distress, resting in bed, afebrile. EYES: PERRL. No scleral icterus or conjunctivitis. No nystagmus or lid-lag. HENT: Atraumatic, normocephalic. No lesions in anterior nares or oropharynx. Mucous membranes moist. NECK: Supple. No thyromegaly or adenopathy. No JVD. Trachea appears midline. RESP: Symmetrical chest expansion; no retractions. Breath sounds clear to auscultation bilaterally. CARD: Regular rhythm without murmur, rub, or gallop. Extremities: No edema, cyanosis, or clubbing. Bilateral radial and pedal pulses palpable +2. GI: Bowel sounds normoactive. Abdomen obese, soft, nondistended, nontender. No organomegaly or masses. SKIN: Warm, dry, pink. No rash, sores, or lesions. : Urinary catheter draining clear yellow urine. NEURO: Alert and oriented x3, moves all extremities, EMV 4-6-5. The patient primary contact is: Hari Cook (son) Patient's HCPOA: is same as above I have spoken with and given verbal consent checkout to the primary receiving provider: Dr. Denton * Progress Notes - Aleida Ingram MD - 01/09/2025 7:36 AM EDT Gynecology Progress Note Subjective Reports feeling well today. Per nursing, chux changed once overnight with minimal dark brown blood present. Patient denies dizziness/lightheadedness. Denies abdominal pain. Reports constant nausea but denies emesis. Objective Physical Exam Constitutional: Appearance: Normal appearance. HENT: Head: Normocephalic and atraumatic. Cardiovascular: Rate and Rhythm: Normal rate. Abdominal: General: Abdomen is flat. There is no distension. Palpations: Abdomen is soft. Comments: Mild tenderness present over LUQ Neurological: General: No focal deficit present. Mental Status: She is alert and oriented to person, place, and time. Psychiatric: Mood and Affect: Mood normal. Behavior: Behavior normal. Labs: Lab Results Component Value Date WBC 8.14 01/09/2025 HGB 6.9 (L) 01/09/2025 HCT 23.4 (L) 01/09/2025 MCV 90 01/09/2025 PLT 284 01/09/2025 NEUTROABS 15.87 (H) 01/07/2025 GLUCOSE 198 (H) 01/09/2025 BUN 31 (H) 01/09/2025 CREATININE 0.86 01/09/2025 NA 138 01/09/2025 K 5.3 (H) 01/09/2025 CL 104 01/09/2025 CO2 28 01/09/2025 MG 1.7 (L) 01/08/2025 CALCIUM 8.3 (L) 01/09/2025 Imaging: Assessment/Plan Stacey Ulloa is a 54 y.o. with PMB # PMB - Menopause at 49 yo, two years without bleeding - Irregular bleeding since, worsening over the past few months - Current bleeding episode started two weeks ago while admitted to OSH, heavy bleeding w/ large clots - Difficult to quantify w/ pad counts, using chucks pads while in hospital. Incontinent and using depends at home, but having to change more frequently when she is bleeding - Describes golfball sized clots with bleeding - Inconclusive US completed while at [facility], 12/30: nondiagnostic, poorly visualized uterus measuring 13.3 x 4.4 x 6.7; no focal lesion, unable to visualize endometrium, nabothian cyst - Last pap smear 24 years ago, no history of abnormal - 78 pack year smoking history - Anemia since admission: most recent hb 7.6, downtrending from 8.5 on admission - Currently with hypotension/shock of unknown source, requiring pressor support - Postmenopausal bleeding with associated anemia concerning for endometrial hyperplasia or malignancy. Cannot exclude other [employer]ER pathologies contributing to bleeding such as cervical malignancy, fibroid, endometrial polyp, etc. given no pap smear x24 years, history of cigarette smoking, and limited [employer] care since her last . Recommendations: - Available TVUS inconclusive from OSH. Patient not compatible with CT or MRI machines for imaging.Would recommend repeat TVUS when medically stable to attempt visualization of endometrium - Recommend continuation of Provera 20 mg BID to address bleeding, while work up is pending, if no contraindications to progesterone treatment with patient's comorbidities. - Recommend nursing pad counts to attempt to better quantify patient's bleeding - Will ultimately need [employer] exam and tissue sampling for diagnosis. Patient's body habitus and current clinical condition significantly limit ability to do so at this time. Will likely need to go to the OR for EUA, D&C, and placement of Mirena IUD when she is medically stable to do so. Can also consider attempting EMB in the office to avoid anesthesia if patient is able to tolerate. Will need preoperative clearance with Anesthesia if she goes to OR. # Rest of care per primary team Dispo: [employer] will continue to follow. Please message on-call [employer] resident via [employer] Secure Chat or page [phone] (M-F 6a-6p) or [phone] (nights/weekends) for questions or concerns regarding this patient's care. Aleida Ingram MD Obstetrics & Gynecology, PGY-1 Cosigned by Nathalie Judd MD at 01/09/2025 4:07 PM EDT Associated attestation - Nathalie Judd MD - 01/09/2025 4:07 PM EDT I saw and evaluated the patient with the resident/fellow. I discussed the case with the resident/fellow and agree with the findings and plan as documented. * Procedures - John Washington RN - 01/09/2025 4:20 AM EDTAssociated Order(s): Insert peripheral IV Insert peripheral IV Performed by: John Washington RN Authorized by: Neela Alexis MD Hand hygiene: Hand hygiene performed prior to insertion Inserted using aseptic techniques: Yes Preparation: Skin prepped with alcohol and skin prepped with chg Orientation: Left, anterior, distal and upper Location: Arm (Cephalic) Catheter placed: Peripheral IV Catheter size: 20g/2.00in (20 gauge/2.25in AccuCath) Line Technique: Ultrasound Guidance Number of attempts: 1 IV flushes: Without difficulty and positive blood return noted and IV luer locked Patient tolerance: Patient tolerated the procedure well and there were no complications Patient comfort measures used: Position of comfort IV site covered with: Transparent semipermeable dressing (CHG tegaderm) Education provided to: Patient Comments: VAT consult for USG PIV. Patient's veins are very deep. New USG PIV placed in left anterior distal upper arm cephalic vein. Image of vein uploaded to PACS. Green alcohol cap placed on end of IV ext tubing. VAT consult completed. * Procedures - Mario Davis DO - 01/09/2025 1:30 AM EDTAssociated Order(s): Arterial line Post-Procedure Diagnose(s): Shock (CMS/HCC) Arterial line Performed by: Mario Davis DO Authorized by: Neela Alexis MD Consent: Consent obtained: Verbal and written Consent given by: Patient Risks, benefits, and alternatives were discussed: yes Risks discussed: Bleeding, infection, ischemia, repeat procedure and pain [place] protocol: Procedure explained and questions answered to patient or proxy's satisfaction: yes Relevant documents present and verified: yes Test results available: yes Imaging studies available: yes Required blood products, implants, devices, and special equipment available: yes Site/side marked: yes Immediately prior to procedure, a time out was called: yes Patient identity confirmed: Verbally with patient and arm band Attending Supervision?: no Indications: Indications: hemodynamic monitoring Pre-procedure details: Skin preparation: Chlorhexidine Preparation: Patient was prepped and draped in sterile fashion Sedation: Sedation type: None Anesthesia: Anesthesia method: Local infiltration Local anesthetic: Lidocaine 1% w/o epi Procedure details: Location: L radial Wei's test performed: yes Wei's test abnormal: no Needle gauge: 18 G Placement technique: Seldinger and ultrasound guided Number of attempts: 1 Transducer: waveform confirmed Post-procedure details: Post-procedure: Sterile dressing applied, secured with tape and sutured CMS: Normal Procedure completion: Tolerated Cosigned by Iveth Feng MD at 01/09/2025 1:49 AM EDT Associated attestation - Iveth Feng MD - 01/09/2025 1:49 AM EDT I was present during all critical and romo portions of the procedure(s) and immediately available [facility] services the entire duration. See resident note for details. * Care Plan - Maryjane Johnston RN - 01/08/2025 11:08 PM EDT Problem: Adult Inpatient Plan of Care Goal: Plan of Care Review Outcome: Ongoing, Progressing Goal: Patient-Specific Goal (Individualized) Outcome: Ongoing, Progressing Goal: Absence of Hospital-Acquired Illness or Injury Outcome: Ongoing, Progressing Goal: Optimal Comfort and Wellbeing Outcome: Ongoing, Progressing Goal: Readiness for Transition of Care Outcome: Ongoing, Progressing Problem: Infection Goal: Absence of Infection Signs and Symptoms Outcome: Ongoing, Progressing * Progress Notes - Neela Alexis MD - 01/08/2025 11:01 AM EDTAssociated Order(s): Critical Care Post-Procedure Diagnose(s): Shock (CMS/HCC) Critical Care Performed by: Neela Alexis MD Authorized by: Neela Alexis MD Critical care provider statement: Critical care time (minutes): 60 Critical care time was exclusive of: Separately billable procedures and treating other patients Critical care was time spent personally by me on the following activities: Examination of patient, evaluation of patient's response to treatment, review of old charts and development of treatment plan with patient or surrogate Critical care statement: I saw and evaluated the patient with the resident/ fellow. I discussed thecase with the resident/ fellow and agree with the findings and plan as documented. Comments: 54 y/o morbidly obese female- recent pacemaker placement & revision admitted for Shock, unknownetiology. Difficult to obtain Arterial line due to body habitus and vasculature. Will use cuff pressures, goal SBP 110 and monitor mentation and u/o. Will start Midodrine 20 mg TID (as she was previously on this during hospitalization in [facility]). Follow-up cx's, check cortisol. h/o vaginal bleeding, net technical architect consulted. MICU PROGRESS NOTE Events of past 24 hours: Patient weaned down from HFNC to 4L NC and satting well. Further attempts to place arterial line unsuccessful. Will continue to try to rely on cuff pressures. Gynecology to see. Review of Systems: Complete 14 point review of systems is negative except for positives documented in HPI Last Recorded Vitals Blood pressure (!) 145/53, pulse 97, temperature 37.2 ??C (99 ??F), resp. rate 18, height 1.6 m (5'3 ), weight 194 kg (428 lb 2.1 oz), SpO2 100%. Physical Exam GENERAL: Chronically ill appearing, obese lying on stretcher, No acute distress EYES: PERRL; anicteric sclerae; moist conjunctivae; no nystagmus or lid-lag HENT: Atraumatic, oropharynx clear, dry mucous membranes, no mucosal ulcerations, normal hard and soft palate, OETT with mechanical ventilation NECK: Trachea midline, supple neck, no thyromegaly or lymphadenopathy RESP: Airway patent, good air movement, respirations non-labored, breath sounds diminished to auscultation, no wheezing CARD: RRR; no murmur, rubs, or gallop TELE: Paced Extremities: No edema, no cyanosis or clubbing; pulses palpable +2 GI: No organomegaly or masses; abdomen is obese, soft, nontender and nondistended; bowel sounds present x 4 quadrants SKIN: Normal temperature, turgor and texture; no rashes, ulcers or subcutaneous nodules NEURO: Awake and following commands, moves all extremities, no focal deficits Results: CBC WBC 12.97 (H) Hb 7.6 (L) Plt 386 (H) Hct 25.7 (L) ANC 15.87 (H) INR ??, PTT ??, Anti-Xa ?? BMP Na 134 (L) Cl 100 BUN 47 (H) Glu 230 (H) K 4.5 Co2 25 Cr 1.61 (H) Ca 7.8 (L) iCa 4.1 (L) Mg 1.7 (L), Phos 3.0 Lactate ?? LFT AST 22 AlkPhos 94 T Prot 6.8 ALK 13 Bili 0.3 Alb ?? D.Bili ?? Medications Current Scheduled Medications[1] Current Continuous Medications[2] Current PRN Medications[3] Imaging (past 24h): Assessment and Plan Ms. Stacey Ulloa is a 54yo female with PMH as above who presents with signs and symptoms of severe anemia and undifferentiated shock. #Undifferentiated shock - Patient discharged from [facility] 01/05 at which time she was admitted to their ICU with low blood pressures requiring vasopressors; patient reports she was not told of the etiology of this shock - Arrives to [facility] hypotensive per cuffs although difficult to obtain due to body habitus; could notmaintain or place reliable arterial line; BP cuff currently on her right calf - Although the patient reported fatigue there are no reports of lethargy/AMS to a degree suggestiveof clinical shock; appropriate UOP, normal lactate; nevertheless patient was placed on levophed to maintain cuff pressures - Received 1L LR and one dose of vanc/zosyn in ED PLAN - Wean levophed with respect to clinical status only - Will very closely monitor mentation, UOP, and spot lactate - Suspect what hypotension is present may be related to anemia - Will not continue antibiotics at this time but continue to follow infectious workup - Judicious fluids with suspected HF #Abnormal uterine bleeding with anemia - Pt with 10-12 days of vaginal bleeding with large clots - [facility] planned for outpatient endometrial biopsy - Denies any vaginal bleeding since LMP five years ago - Hgb as low as 7.5 on arrival; iron studies pending - Gynecology to see #Acute on chronic respiratory failure requiring HFNC - Requires 2L NC at baseline likely ITSO morbid obesity, OHS, reported HFpEF - Arrived requiring HFNC to maintain appropriate oxygen saturations - CXR with mild pulmonary vascular congestion without overt edema - Low suspicion for bacterial pneumonia; WBC with mild elevation, procal 0.11 - Weaned to NC, continue to monitor #Second degree AV block s/p dual chamber PPM (12/05/24) s/p atrial lead replacement (12/29/24) - Recent dual chamber pacing with LBBAP (RAA & left anterior fascicle pacing) with Dr. Aranda at [facility] - TTE (12/05/24): EF 68%, paradoxical septal motion, moderate global RV hypokinesis - cardiology interrogated PPM on arrival which is positioned and functioning appropriately - Formal TTE pending #Heart failure with preserved EF - Carries diagnosis formally although bedside POCUS on arrival to not suggestive of gross diastolic dysfunction; there is paradoxical septal motion which may be result of various conditions including PH or OHS - Discharged from [facility] on torsemide 40mg, spironolactone 25mg, metoprolol tartrate 12.5mg BID; feltnot a candidate for SGLT due to size and immobility - Formal TTE pending Other chronic conditions #Hypothyroidism: TSH/FT4 wnl on arrival; cont home Synthroid 300mg as able #DM2 #RLS: ropinorole #Mood: resume home Wellbutrin and Zoloft when able F: Regular A: Tylenol prn S: T: SCD H: HOB greater than 30 degrees U: G: FSBS, SSI S: B: Last BM I: PIV x2 D: Dispo: MICU Code status: FULL Trey Anthony MD Internal Medicine (PGY-2) [1] insulin regular, 0-5 Units, Subcutaneous, q6h LINDSEY mupirocin, 1 Application, Each Nostril, BID phosphorus, 1 tablet, Oral, q12h rOPINIRole, 4 mg, Oral, Daily [2] norepinephrine, 0-0.4 mcg/kg/min, Last Rate: 0.08 mcg/kg/min (01/08/25 0915) [3] PRN medications: acetaminophen, glucose OR dextrose OR glucagon (human recombinant), [COMPLETED] Insert peripheral IV AND [COMPLETED] Saline lock IV AND sodium chloride * Consults - Guerda Thakur MD - 01/08/2025 11:01 AM EDTAssociated Order(s): Inpatient consult to Gynecology Gynecology Consult Note Patient Name: Stacey Ulloa : 1970 Inpatient consult to Gynecology Consult performed by: Guerda Thakur MD Consult ordered by: Neela Alexis MD Subjective Subjective History of Present Illness: Stacey Ulloa is a 54 y.o. admitted to MICU for hypotension. 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 Patient currently admitted to MICU for hypotension. Her PMH is significant for HFpEF, 2:1 AV block s/p dual chamber pacemaker placement and revision, T2DM, obesity, OHS on 2L and morbid obesity with BMI 76. She presented to 01/07 after weakness, fatigue, hypotension and SOA at home. She has been recently admitted to OSH and discharged 01/06 after admission for atrial lead displacement and revision. She was found to be hypotensive on arrival and is in MICU for pressors with shock of unknown origin. She shares that she went through menopause around the age of 49 yo. She had two years without bleeding, but since has had intermittent vaginal spotting and occasional days with heavy bleeding. She started having heavy bleeding during recent hospital admission, states she was passing golf ball sizedclots and required chux pad changes every few hours. She has had 5 prior , 4 's and 1 miscarriage requiring treatment with D&C. She states last pap smear was approximately 24 years ago when she had her last child. She has not followed with a reprint sorter since . Her social history is significant for history of cigarette smoking. Smoked estimated 2 ppd since 13 yo, stopped in 2022 Past Medical History: HFpEF AV farhad block T2DM Morbid obesity Hypothyroidism Anemia Anxiety/depression Past Surgical History: D&C Pacemaker, lead revision Hernia surgery Bowel blockage Family History: Lung cancer Social History: Social History[1] Allergies: Allergies[2] Review of Systems: Review of Systems As per HPI Objective Objective Vital Signs: Visit Vitals BP (!) 145/53 Pulse 97 Temp 37.2 ??C (99 ??F) Resp 18 Body mass index is 75.84 kg/m??. Weight: Wt Readings from Last 3 Encounters: 01/08/25 194 kg (428 lb 2.1 oz) Physical Exam Constitutional: Appearance: Normal appearance. Genitourinary: Genitourinary Comments: Bimanual attempted, inconclusive due to body habitus HENT: Head: Normocephalic and atraumatic. Eyes: Conjunctiva/sclera: Conjunctivae normal. Cardiovascular: Rate and Rhythm: Normal rate. Pulmonary: Effort: Pulmonary effort is normal. Abdominal: Comments: Soft, nontender, large left abdominal herna Musculoskeletal: General: Normal range of motion. Cervical back: Normal range of motion. Neurological: General: No focal deficit present. Mental Status: She is alert and oriented to person, place, and time. Skin: General: Skin is warm and dry. Capillary Refill: Capillary refill takes less than 2 seconds. Psychiatric: Mood and Affect: Mood normal. Behavior: Behavior normal. Results: Lab Results Component Value Date WBC 12.97 (H) 01/08/2025 HGB 7.6 (L) 01/08/2025 HCT 25.7 (L) 01/08/2025 MCV 88 01/08/2025 PLT 386 (H) 01/08/2025 NEUTROABS 15.87 (H) 01/07/2025 GLUCOSE 230 (H) 01/08/2025 BUN 47 (H) 01/08/2025 CREATININE 1.61 (H) 01/08/2025 NA 134 (L) 01/08/2025 K 4.5 01/08/2025 CL 100 01/08/2025 CO2 25 01/08/2025 MG 1.7 (L) 01/08/2025 CALCIUM 7.8 (L) 01/08/2025 Imaging: XR Chest 1 View Result Date: 01/07/2025 Mild pulmonary vascular congestion without overt edema. CRITICAL RESULT: No. COMMUNICATION: Per this written report. Preliminary report signed by Hang Cedillo DO on 01/07/2025 2:16 PM By electronically signing this report, I, the attending physician, attest that I have personally reviewed the images/data for the above examination(s) and agree with the final edited report. Drafted by Hang Cedillo DO on 01/07/2025 2:14 PM Final report signed by Jose D Doyle MD on 01/07/2025 3:11 PM Assessment/Plan Assessment / Plan Stacey Ulloa is a 54 y.o. with PMB # PMB - Menopause at 49 yo, two years without bleeding - Irregular bleeding since, worsening over the past few months - Current bleeding episode started two weeks ago while admitted to OSH, heavy bleeding w/ large clots - Difficult to quantify w/ pad counts, using chucks pads while in hospital. Incontinent and using depends at home, but having to change more frequently when she is bleeding - Describes golfball sized clots with bleeding - Inconclusive US completed while at [facility], 12/30: nondiagnostic, poorly visualized uterus measuring 13.3 x 4.4 x 6.7; no focal lesion, unable to visualize endometrium, nabothian cyst - Last pap smear 24 years ago, no history of abnormal - 78 pack year smoking history - Anemia since admission: most recent hb 7.6, downtrending from 8.5 on admission - Currently with hypotension/shock of unknown source, requiring pressor support - Postmenopausal bleeding with associated anemia concerning for endometrial hyperplasia or malignancy. Cannot exclude other PUL[employer] BLENDER pathologies contributing to bleeding such as cervical malignancy, fibroid, endometrial polyp, etc. given no pap smear x24 years, history of cigarette smoking, and limited PULP GR[employer]ER AND BLENDER care since her last . Recommendations: - Available TVUS inconclusive from OSH. Patient not compatible with CT or MRI machines for imaging.Would recommend repeat TVUS when medically stable to attempt visualization of endometrium - Recommend initiation of Provera 20 mg BID to address bleeding, while work up is pending, if no contraindications to progesterone treatment with patient's comorbidities. - Recommend nursing pad counts to attempt to better quantify patient's bleeding - Will ultimately need PUL[employer] BLENDER exam and tissue sampling for diagnosis. Patient's body habitus and current clinical condition significantly limit ability to do so at this time. Will likely need to go to the OR for EUA, D&C, and placement of Mirena IUD when she is medically stable to do so. Can also consider attempting EMB in the office to avoid anesthesia if patient is able to tolerate. Will need preoperative clearance with Anesthesia if she goes to OR. # Rest of care per primary team Dispo: PULP [employer]ER [employer] BLENDER will continue to follow. Thank you for including us in the care of this patient. This consult was staffed with Dr. Cornelius Bravo. Please message on-call PULP GR[employer]ER AND BLENDER resident via [employer] Secure Chat or page [phone] (M-F 6a-6p) or [phone] (nights/weekends) for questions or concerns regarding this patient's care. Guerda Watson MD Obstetrics and Gynecology, PGY-2 [1] Social History Socioeconomic History ??? Marital status: [2] Allergies Allergen Reactions ??? Dilaudid [Hydromorphone] Other - please document in the comment field Hypotension Cosigned by Sybil Kwan MD at 01/09/2025 8:27 AM EDT Associated attestation - Sybil Kwan MD - 01/09/2025 8:27 AM EDT I saw and evaluated the patient with the resident/fellow. I discussed the case with the resident/fellow and agree with the findings and plan as documented. * Care Plan - Maryjane Johnston RN - 01/07/2025 9:22 PM EDT Problem: Adult Inpatient Plan of Care Goal: Plan of Care Review Outcome: Ongoing, Progressing Goal: Patient-Specific Goal (Individualized) Outcome: Ongoing, Progressing Goal: Absence of Hospital-Acquired Illness or Injury Outcome: Ongoing, Progressing Goal: Optimal Comfort and Wellbeing Outcome: Ongoing, Progressing Goal: Readiness for Transition of Care Outcome: Ongoing, Progressing Problem: Infection Goal: Absence of Infection Signs and Symptoms Outcome: Ongoing, Progressing * Consults - Trevor Webster MD - 01/07/2025 5:09 PM EDTAssociated Order(s): Inpatient consult to cardiology Images from the original note were not included. CARDIOLOGY NEW CONSULT NOTE Inpatient consult to cardiology Consult performed by: Trevor Webster MD Consult ordered by: Neela Alexis MD Reason for consult: Pacemaker interrogation Reason For Consult: Pacemaker Concerns Requesting Attending/Service: ED / MICU Requested Date/Time: 01/07/2025 SUBJECTIVE History Of Present Illness Stacey Ulloa is a 54 y.o. female who initially presented to the [facility] with a chief complaint of shortness of breath. Patient's past medical history is significant for the following: Hx of Abnormal Vaginal Bleeding Second-Degree AV-Block (2:1) S/p DC-PPM ([facility]; 12/05/2024) S/p Atrial Lead Revision (12/29/2024) Prior Diagnosis of HFpEF Class III Obesity Restless leg syndrome T2DM HLD Hypothyroidism Patient has history of second-degree AV block with 2-1 conduction for which he underwent placement of a dual-chamber ppm ([facility]) on 12/05/2024. This procedure was initially uncomplicated, thoughlater she was found to have dislodgement of the atrial lead for which she was ultimately admitted to OS and then transferred to [facility] for atrial lead revision. This took place on 12/29/2024. Atrial lead revision was tolerated without issue. However, during this admission patient had abnormal vaginal/uterine bleeding for which the gynecology oncology team was consulted. It was felt patient may require an endometrial biopsy, though this was planned for outpatient as there were concerns for additional procedures in the context of recent cardiac procedure (infectious concern). Patient was skilled to go to subacute rehab, though due to the lengthy approval process she ultimately returned home on her own. After leaving the hospital, patient initially did well until 01/07/2025 when patient past several ???7 cm clots?? . At this time, patient began to appreciate progressively worsening lethargy, weakness, and chills. She obtained vitals at home and was found to be hypotensive (reportedly 60/40) and EMS was contacted. Blood pressure was repeated on arrival (manual) confirming 60s over 40s mmHg. Patient was subsequently brought to ED for further evaluation. On arrival to ED, patient was noted to be afebrile, HR 73 per minute, BP 93/39, requiring HFNC in order to maintain adequate oxygenation. Patient was started on norepinephrine in order to maintainadequate perfusing pressures. CXR was performed which demonstrated mild pulmonary vascular congestion. CT initially ordered, the patient reportedly unable to fit within the scanner. Labs were significant for the following: VBG: PH 7.31, pCO2 54, lactate 2.4 CBC: WBC 14.02, HGB 8.3, PLT 357 CMP: BG 174, creatinine 2.43 (BUN 53), Na 136, K4.5, Cl 95, HC03 24, AST (hemolyzed), ALT 11, ALP 89 Troponin: 22, 26 NT proBNP: 710 TSH: 2.22 Blood cultures: In process Procalcitonin: In process UA: PH less than 5, trace protein, negative leukocyte/nitrites Medication Dispense History: Review of Systems 14 point ROS reviewed and is otherwise negative except that which is mentioned in the HPI. Past Medical History Past Medical History[1] Surgical History Surgical History[2] Family History Reviewed and non-contributory. Social History Tobacco use: No Alcohol use: Denies any significant recent usage. Other: Denies any recent illicit drug use. Allergies Dilaudid [hydromorphone] Home Medications No current outpatient medications OBJECTIVE Physical Exam Visit Vitals BP (!) 109/92 (BP Location: Right arm, Patient Position: Lying) Pulse 73 Temp 36.9 ??C (98.5 ??F) (Oral) Resp 12 Wt 193 kg (426 lb 9.4 oz) SpO2 100% Physical Exam Constitutional: No distress. HENT: Head: Normocephalic and atraumatic. Mouth/Throat: Mucous membranes are moist. Eyes: Conjunctivae are normal. Cardiovascular: Normal rate and regular rhythm. No murmur heard. Abdominal: There is abdominal tenderness. TTP in RUQ and epigastric region, + Wright Skin: Skin is warm. Capillary refill takes less than 2 seconds. Physical Exam Constitutional: General: She is not in acute distress. Appearance: She is obese. HENT: Head: Normocephalic and atraumatic. Mouth/Throat: Mouth: Mucous membranes are moist. Eyes: Conjunctiva/sclera: Conjunctivae normal. Cardiovascular: Rate and Rhythm: Normal rate and regular rhythm. Heart sounds: No murmur heard. Pulmonary: Comments: HFNC in place, distant breath sounds throughout Abdominal: Tenderness: There is abdominal tenderness. Comments: TTP in RUQ and epigastric region, + Wright Skin: General: Skin is warm. Capillary Refill: Capillary refill takes less than 2 seconds. Neurological: Mental Status: Mental status is at baseline. Primary Study Review: I personally reviewed the the images/tracings of the following studies: ECG and CXR Lab Review I personally reviewed the pertinent labs. Telemetry: Reviewed EKG (01/07/2025): TTE ([facility]H; 12/05/2024: The study was technically difficult. There is no comparison study available. Normal left ventricular global and regional systolic function except for wall motion abnormalities as follows. Paradoxical septal motion. Moderate global right ventricular hypokinesis. Calculated left ventricular ejection fraction of 68 % (Biplane Mchugh's method). Aortic Valve The aortic valve is not well visualized. No valvular aortic stenosis. No aortic regurgitation seen. Atria Normal left atrial intracavitary chamber size. Normal right atrial intracavitary size. There is no Doppler evidence for an atrial septal defect. Contrast Lumason contrast given. The patient was screened for ultrasound enhancing agent allergies. No known allergies present prior to injection. Great Vessels The aortic root is normal size. Inferior Vena Cava not well visualized. Unable to estimate right atrial pressure. Left Ventricle Normal left ventricle intracavitary chamber size. No thrombus seen in the left ventricle. There is normal left ventricular wall thickness. Calculated left ventricular ejection fraction of 68 % (Biplane Mchugh's method). Normal global left ventricular diastolic function. Normal left ventricular global and regional systolic function except for wall motion abnormalities as follows. Paradoxical septal motion. Mitral Valve The mitral valve is grossly normal. There is no mitral valve stenosis. There is trace mitral regurgitation. Pericardium/Pleural There is no pericardial effusion. Pulmonic Valve The pulmonic valve is not well visualized. There is no pulmonic valvular stenosis. There is no pulmonic valvular regurgitation seen. Right Ventricle Mild right ventricle enlargement. There is normal right ventricular wall thickness. Moderate global right ventricular hypokinesis. Pacemaker Interrogation (01/07/2025): ASSESSMENT & PLAN Stacey Ulloa is a 54 y.o. female who initially presented to the [facility] for shortness of breath, and Cardiology is being consulted for recommendations and management of concern for pacemaker complication. #Concern for Pacemaker Malfunction / Complication Patient with recent history of significant vaginal bleeding presenting with undifferentiated shock after a recrudescence of her vaginal bleeding. Due to second-degree AV block, patient recently underwent pacemaker placement (DC-bpm, [facility]; 12/05/2024) which was complicated by lead dislodgementrequiring replacement. Bedside device interrogation demonstrated preserved pacemaker functioning, appropriate settings. Both atrial and ventricular leads capture, sensing, and impedance were assessedwith no significant derivation from prior checks. This suggest leads remain in the appropriate position and fully functional (further supported by CXR). Bedside TTE also performed, though significantly limited due to patient's body habitus (426 lb). No overt cardiac pathology appreciated on limitedTTE, though can consider formal TTE for more comprehensive cardiac assessment given the limitationsof the bedside. In addition to habitus, patient's right upper quadrant / epigastric pain, and inability to change position without shortness of breath were significant barriers to optimizing echocardiogram windows. Of note, pacemaker generator pocket site is well-appearing on exam with no evidence to suggest pocket infection. Of note, prior diagnosis of HFpEF prior to admission though TTE demonstrating normal diastolic function, preserved LV systolic functioning. Decreased RV global function and mild dilation noted in addition to paradoxical septal motion. Paradoxical septal motion can be observed for a multitude of reasons including pacing, bundle branch blocks, cardiac surgery, pulmonary hypertension, etc. (It is unclear the specific circumstances surrounding this 12/05/2024 TTE). From a longitudinal standpoint, given the severity of patient's obesity with significant concern for OHS/HONEY (restrictive physiology) patient would benefit from better characterization of her RV functioning (? Pulmonary HTN). We will a wait TTE results. Recommendations: Will follow-up formal TTE results (already ordered) Bedside pacemaker interrogation performed (discussed above) Bedside TTE performed (discussed above) Defer further workup of undifferentiated shock to primary team If central line is placed, consider obtaining mixed venous O2 Agree with holding home HFpEF medications due to hypotension This consult has been seen and staffed with the following attending physician: Dr Holland. Please page the on-call social media marketer with any further questions. I spent 45 minutes performing the following components of the encounter (on the day of the encounter): reviewing History, examining the patient, reviewing imaging and/or labs, Independently interpreting echocardiogram, ECG and/or other imaging results, ordering tests or procedures, ordering medications, counseling the patient and family/caregiver, communicating with other health adult caregiver, care coordination, and entering clinical information in the EHR. Greater than 50% of the time spent on the encounter was face to face providing direct patient care, counseling for the patient/caregiver, and care coordination. The following cardiovascular risk factors and co-morbidities complicates the management of these conditions: Vaginal bleeding, Morbid Obesity Trevor Webster MD Industrial Gas Servicer Helper [1] No past medical history on file. [2] No past surgical history on file. Cosigned by Vasu Holland DO at 01/08/2025 8:24 PM EDT Associated attestation - Vasu Holland DO - 01/08/2025 8:24 PM EDT I discussed the case with the resident/fellow and agree with the findings and plan as documented. * H&P - Kate Schroeder APRN - 01/07/2025 5:04 PM EDTAssociated Order(s): Critical Care Post-Procedure Diagnose(s): Shock (CMS/HCC); GWEN (acute kidney injury) (CMS/HCC); Chronic heart failure with preserved ejection fraction (CMS/HCC) Images from the original note were not included. Pulmonary, Critical Care, & Sleep Medicine MICU H&P NOTE Chief complaint: weakness History Of Present Illness Stacey Ulloa is a 54 yo F with PMHx significant for HFpEF, 2:1 AV Block s/p dual chamber pacemaker placement & revision, T2DM, obesity, OHS on 2L NC baseline who presented to the ED via EMS forweakness, fatigue, hypotension, and shortness of air. Per patient, she was discharged home yesterday from OSH after being admitted to cardiology service for atrial lead displacement and revision (12/29/24), which she reportedly tolerated well. During prior hospitalization, patient was also being seen by Provider Contracting Consultant/Onc for abnormal uterine bleeding, but ultimately planned to follow up outpatient for uterine biopsy. During recent hospitalization, there was difficulty obtaining accurate BP cuff measurements per chart review. She was on midodrine for an unknown amount of time while inpatient, but it was stopped prior to discharge. Patient reports that home spironolactone and metoprolol were also decreased upon discharge. Patient continued to have heavy bleeding with clots at home. She also reported vomiting and diarrhea that began overnight. She denies fever, chills, cough, congestion, chest pain. Upon arrival, patient was noted to be hypotensive, but with inconsistency in readings, so an arterial line was placed. She received 1L IVF, zosyn, and vancomycin, and was ultimately initiated on norepi gtt. Initial work-up is significant for pH 7.31, pCO2 54, HCO3 27.2, WBC 14k, Hgb 8.3, SCr 2.43, AG 17. CXR without concern for acute process and CT chest was unable to be performed 2/2 body habitus. Patient to be admitted to MICU for further eval and management. Past Medical History ShePast Medical History[1] Family History Family History[2] Social History She has no history on file for tobacco use, alcohol use, and drug use. Occupational History N/A Travel History Relevant International Travel History: Travel Screening No screening recorded since 01/06/25 1100 Travel History Travel since 12/07/24 No documented travel since 12/07/24 Relevant Domestic Travel History: Denies any recent international or significant travel Immunizations VACCINE / DOSE Flu Tetanus Pneumovax Shingles Allergies Dilaudid [hydromorphone] Medications Prior to Admission medications Not on File Current Medications[3] Review of Systems: Complete 14 point review of systems is negative except for positives documented in HPI Last Recorded Vitals Blood pressure (!) 109/92, pulse 73, temperature 36.9 ??C (98.5 ??F), temperature source Oral, resp. rate 12, weight 193 kg (426 lb 9.4 oz), SpO2 100%. Physical Exam GENERAL: Chronically ill appearing, lying on stretcher, No acute distress EYES: PERRL; anicteric sclerae; moist conjunctivae; no nystagmus or lid-lag HENT: Atraumatic, oropharynx clear, dry mucous membranes, no mucosal ulcerations, normal hard and soft palate, OETT with mechanical ventilation NECK: Trachea midline, supple neck, no thyromegaly or lymphadenopathy RESP: Airway patent, good air movement, respirations non-labored, breath sounds diminished to auscultation, no wheezing CARD: RRR; no murmur, rubs, or gallop TELE: Paced Extremities: No edema, no cyanosis or clubbing; pulses palpable +2 GI: No organomegaly or masses; abdomen is obese, soft, nontender and nondistended; bowel sounds present x 4 quadrants SKIN: Normal temperature, turgor and texture; no rashes, ulcers or subcutaneous nodules NEURO: Awake and following commands, moves all extremities, no focal deficits Results: CBC WBC 14.02 (H) Hb 8.3 (L) Plt 357 Hct 27.6 (L) ANC 10.05 (H) INR 1.1, PTT ??, Anti-Xa ?? BMP Na 136 Cl 95 (L) BUN 53 (H) Glu 174 (H) K 4.5 Co2 24 Cr 2.43 (H) Ca 8.1 (L) iCa 4.1 (L) Mg ??, Phos ?? Lactate 2.4 (H) LFT AST 17 AlkPhos 89 T Prot 7.0 ALK 11 Bili 0.3 Alb ?? D.Bili ?? Imaging (past 24h): I personally visualized and interpreted all of the imaging studies below and I agree with formal interpretation. XR Chest 1 View Result Date: 01/07/2025 Mild pulmonary vascular congestion without overt edema. CRITICAL RESULT: No. COMMUNICATION: Per this written report. Preliminary report signed by Hang Cedillo DO on 01/07/2025 2:16 PM By electronically signing this report, I, the attending physician, attest that I have personally reviewed the images/data for the above examination(s) and agree with the final edited report. Drafted by Hang Cedillo DO on 01/07/2025 2:14 PM Final report signed by Jose D Doyle MD on 01/07/2025 3:11 PM Assessment/Plan Acute Respiratory Failure requiring HFNC (POA) - Currently on HFNC - CXR with mild pulmonary vascular congestion without overt edema. Plan: - Wean HFNC for O2 sat >/= 92% - PRN ABG & CXR - Flu/COVID/RSV pending - Full infectious w/u pending Undifferentiated shock (POA) - Differentials: cardiogenic versus distributive - WBC:14.02, lactate: 1.4 - UA negative - Patient received 1L LR & Vanc/Zosyn in ED PLAN: - Serial ABG / VBG and lactate - Fluid boluses for 30 mL /kg - Levophed for MAP >65 - Place hernández - Holcomb cultures: BC x2, PAL, UA, viral respiratory panel, Urine strep and legionella - Comprehensive GI panel and C. diff panel - EKG, TTE, ScVO2 with inotropic support as needed - Empiric abx: Vanc/Zosyn 2:1 AV Block s/p dual chamber pacemaker placement (POA) s/p atrial lead replacement (POA) - 12/05/24 dual chamber pacing with LBBAP (RAA & left anterior fascicle pacing) with Dr. Aranda at [facility] - s/p pacemaker single lead atrial insertion (12/29/24) at [facility] - [facility] 2272 pacemaker with serial #[id number] - Pacer lead fixed - ECHO (12/05/24): EF 68%. Paradoxical septal motion. Moderate global RV hypokinesis. Plans: - Cards following, appreciate recs - Repeat ECHO pending Heart Failure with preserved Ejection Fraction - Was discharged from [facility] on Torsemide 40 mg PO, Spironolactone 25 mg daily, Metoprolol tartrate 12.5 mg twice daily Plan: - hold antihypertensives in the setting of shock Hypothyroidism - continue home dose of levothyroxine 300 mcg PO daily Type 2 Diabetes Mellitus (POA) - HgA1c pending - FSBG; SSI Abnormal Uterine Bleeding (POA) - reported intermittent postmenopausal bleeding for the last 11 days - outpatient endometrial biopsy, gynecology clinic to call and schedule Restless Leg Syndrome (POA) - continue ropinirole Depression (POA) Anxiety (POA) - on home Bupropion and Sertraline Plan: - Resume when appropraite Edited by: Elvia Baldwin APRN, DNP at 01/07/2025 1703 Disposition - ICU level of care - Code status: Full - Plan of care discussed with patient at bedside Critical Care Performed by: Kate Schroeder APRN Authorized by: Kate Schroeder APRN Critical care provider statement: Critical care time (minutes): 60 Critical care time was exclusive of: Separately billable procedures and treating other patients Critical care was time spent personally by me on the following activities: Development of treatmentplan with patient or surrogate, discussions with primary provider, discussions with consultants, evaluation of patient's response to treatment, examination of patient, obtaining history from patient or surrogate, ordering and performing treatments and interventions, ordering and review of laboratory studies, ordering and review of radiographic studies and review of old charts Comments: The patient is critically ill with: shock, GWEN. They require complex decision making. The patient was seen on rounds with critical care physician, Dr. Albert and they are in agreement with the plan of care. Pharmacy, respiratory and nursing services were present on rounds. [1] No past medical history on file. [2] No family history on file. [3] Current Facility-Administered Medications Medication Dose Route Frequency Provider Last Rate Last Admin ??? acetaminophen (Tylenol) tablet 650 mg 650 mg Oral q4h PRN Elvia Baldwin APRN, DNP ??? glucose (Glutose) 40 % oral gel 15-30 grams of glucose 15-30 grams of glucose Sublingual q15 min PRN Elvia Baldwin APRN, DNP Or ??? dextrose 50 % solution 12.5-25 g 12.5-25 g Intravenous q15 min PRN Elvia Baldwin APRN, DNP Or ??? glucagon (human recombinant) injection 1 mg 1 mg Intramuscular q15 min PRN Elvia Baldwin APRN, DNP ??? heparin (porcine) injection 5,000 Units 5,000 Units Subcutaneous q8h Elvia Garcia APRN, DNP ??? insulin regular (HumuLIN R,NovoLIN R) 100 units/mL injection - Correction - Standard Dose 0-5 Units Subcutaneous q6h LINDSEY Elvia Baldwin APRN, DNP ??? lactated Ringer's bolus 500 mL 500 mL Intravenous Once Elvia Baldwin APRN, DNP ??? mupirocin (Bactroban) 2 % ointment 1 Application 1 Application Each Nostril BID Aleta Baldwin APRN, DNP ??? norepinephrine 8 mg/250 mL (0.032 mg/mL) infusion 0-0.4 mcg/kg/min Intravenous Titrated Scotty Mcpherson, DO 43.7 mL/hr at 01/07/25 1444 0.12 mcg/kg/min at 01/07/25 1444 ??? sodium chloride 0.9 % flush 3 mL 3 mL Intravenous PRN Elvia Baldwin APRN, DNP ??? vancomycin (Vancocin) 3,000 mg in sodium chloride 0.9 % 500 mL IVPB 3,000 mg Intravenous Once Scotty Mcpherson, DO 191.7 mL/hr at 01/07/25 1502 3,000 mg at 01/07/25 1502 No current outpatient medications on file. Cosigned by Bhaskar Albert MD at 01/07/2025 5:32 PM EDT Associated attestation - Bhaskar Albert MD - 01/07/2025 5:32 PM EDT Signature only. * Hospital Course - Neo Viera MD - 01/07/2025 4:01 PM EDT Ms. Ulloa is a 54 year old woman with obesity, functional paraplegia, HFpEF, 2nd degree AV blocks/p PPM with revision, T2DM, OHS on 2L that presented with hypotension and possible shock. She was found to have acute blood loss anemia from uterine bleeding. *Acute blood loss anemia due to abnormal uterine bleeding She is post-menopausal. It was possibly due to endometrial hyperplasia or malignancy. Imaging was limited due to body habitus. Her bleeding was controlled with megestrol acetate as inpatient. On 01/13GYN performed exam under anesthesia, endometrial biopsy, and placement of Mirena IUD. She was notedto have proliferative appearing endometrium. [facility] arranging follow up in 4-6 weeks. *Hypotension due to acute blood loss anemia There was initial concern for shock. She had GWEN and mildly elevated lactate. Her body habitus complicated things and made blood pressure cuff measurement challenging. She was weaned of norepiniphrine and given 1L fluid and 1 unit of PRBC during her stay. She was recently on outpatient midodrine, which was also restarted. Blood pressure was stable for remainder of admission. *Chronic heart failure with preserved EF Carries diagnosis; discharged from [facility] on torsemide, metolazone, spironolactone, metoprolol tartrate. She was felt not a candidate for SGLT due to size and immobility. She had no significant edema here. TTE showed EF 59%; poor quality due ot body habitus but appeared grossly normal. We initially held diuretics and BP meds given hypotension requiring midodrine. Then resume her torsemide 40mg daily at reduced dose. *Acute on Chronic Hypoxic Resp Failure *Second degree AV block s/p recent dual chamber PPM s/p recent atrial lead replacement *Intertriginous dermatitis *Hypothyroidism *T2DM *RLS *Mood disorder *GWEN (resolved) *Morbid obesity, functional paraplegia Med Changes -reduce torsemide to 40mg daily and stopped spironolactone and metolazone due to hypotension and lack of edema -stopped metoprolol due to hypotension -started midodrine for hypotension -started miconazole for intertriginous dermatitis -reduced trazodone from 300mg to 150mg at bedtime Follow up -patient to arrange follow up with her PCP in 1-2 weeks; to assess edema, possibility of titrating down midodrine; also recommend a CBC and BMP to follow up her anemia and renal function on diuretics -f/u with [facility] in 4-6 weeks ([facility] team arranging) * ED Procedure Note - Nadja Payne MD - 01/07/2025 11:00 AM EDT Associated Order(s): Critical Care; Critical Care Procedure Reason: Encephalopathy. Acute hypoxic hypercarbic respiratory failure. Hypotension. Critical Care Performed by: Nadja Payne MD Authorized by: Nadja Payne MD Critical care provider statement: Critical care time (minutes): 40 Critical care time was exclusive of: Separately billable procedures and treating other patients andteaching time Critical care was time spent personally by me on the following activities: Development of treatmentplan with patient or surrogate, discussions with consultants, discussions with primary provider, evaluation of patient's response to treatment, examination of patient, obtaining history from patient or surrogate, ventilator management, review of old charts, ordering and review of radiographic studies, ordering and review of laboratory studies and ordering and performing treatments and interventions (Management of noninvasive positive pressure ventilation. Titration of vasoactive medicines.) I assumed subsequent critical care for this patient from a provider in my division, on the same day: no Critical care statement: I saw and evaluated the patient with the resident/ fellow. I discussed thecase with the resident/ fellow and agree with the findings and plan as documented. Critical Care Performed by: Nadja Payne MD Authorized by: Ivis Juárez MD Doty, Christopher I, MD 01/09/25 1348 Nadja Payne MD 01/09/25 1438 * ED Provider Notes - Nadja Payne MD - 01/07/2025 11:00 AM EDT Images from the original note were not included. - HPI Chief Complaint Patient presents with Hypotension History provided by: Medical records and EMS personnel 54-year-old female presenting to emergency department for evaluation of shortness a breath, hypotension, vaginal bleeding. Recent discharge from [facility] last night for pacemaker complication. Had an echo performed last month which demonstrated overall preserved ejection fraction wit hout significant valvular regurgitation. History AV block status post dual-chamber pacemaker, recent pacemaker single lead atrial insertion on the 12th of this month. Additional history of heart failure preserved ejection fraction, hypothyroidism, diabetes, abnormal uterine bleeding Patient History Past Medical History[1] Surgical History[2] Family History[3] Social History[4] Allergies: Allergies[5] Physical Exam ED Triage Vitals Temp Heart Rate Resp BP 01/07/25 1105 01/07/25 1105 01/07/25 1105 01/07/25 1105 37.2 ??C (98.9 ??F) 99 15 (!) 105/48 SpO2 Temp Source Heart Rate Source Patient Position 01/07/25 1105 01/07/25 1105 01/07/25 1520 01/07/25 1105 92 % Oral Monitor Lying BP Location FiO2 (%) 01/07/25 1105 01/07/25 1131 Right arm 40 % Physical Exam Vitals and nursing note reviewed. Constitutional: General: She is not in acute distress. Appearance: She is well-developed. She is obese. She is ill-appearing. HENT: Head: Normocephalic and atraumatic. Eyes: Conjunctiva/sclera: Conjunctivae normal. Cardiovascular: Rate and Rhythm: Regular rhythm. Tachycardia present. Heart sounds: No murmur heard. Pulmonary: Effort: Respiratory distress present. Breath sounds: Normal breath sounds. Abdominal: Palpations: Abdomen is soft. Tenderness: There is no abdominal tenderness. Musculoskeletal: General: No swelling. Cervical back: Neck supple. Skin: General: Skin is warm and dry. Capillary Refill: Capillary refill takes 2 to 3 seconds. Coloration: Skin is pale. Neurological: General: No focal deficit present. Mental Status: She is alert. Psychiatric: Mood and Affect: Mood normal. Gregory Coma Scale Score: 15 ED Course & MDM - Assessment: 54-year-old female presenting to emergency department for evaluation of weakness fatigue and concerns for shock. Differential includes distributive shock, obstructive shock, cardiogenic shock, sepsis, among others. In order to fully explore the differential diagnosis the following treatments and tests were ordered: ED Medication Administration from 01/07/2025 1100 to 01/07/2025 1701 Date/Time Order Dose Route Action 01/07/2025 1127 EDT ipratropium-albuterol (Duo-Neb) 0.5-2.5 mg/3 mL nebulizer solution 6 mL 6 mL Nebulization Given 01/07/2025 1133 EDT norepinephrine 8 mg/250 mL (0.032 mg/mL) infusion 0.02 mcg/kg/min Intravenous New Bag 01/07/2025 1140 EDT norepinephrine 8 mg/250 mL (0.032 mg/mL) infusion 0.04 mcg/kg/min Intravenous Rate/Dose Change 01/07/2025 1151 EDT lactated Ringer's infusion 500 mL 500 mL Intravenous New Bag 01/07/2025 1200 EDT norepinephrine 8 mg/250 mL (0.032 mg/mL) infusion 0.06 mcg/kg/min Intravenous Rate/Dose Change 01/07/2025 1211 EDT norepinephrine 8 mg/250 mL (0.032 mg/mL) infusion 0.08 mcg/kg/min Intravenous Rate/Dose Change 01/07/2025 1310 EDT lactated Ringer's infusion 500 mL 500 mL Intravenous New Bag 01/07/2025 1315 EDT lactated Ringer's infusion 500 mL 0 mL Intravenous Stopped 01/07/2025 1420 EDT piperacillin-tazobactam (Zosyn) 4.5 g in sodium chloride 0.9% 100 mL IVPB (vialadapter required) 4.5 g Intravenous New Bag 01/07/2025 1421 EDT lactated Ringer's infusion 500 mL 0 mL Intravenous Stopped 01/07/2025 1435 EDT norepinephrine 8 mg/250 mL (0.032 mg/mL) infusion 0.1 mcg/kg/min Intravenous Rate/Dose Change 01/07/2025 1444 EDT norepinephrine 8 mg/250 mL (0.032 mg/mL) infusion 0.12 mcg/kg/min Intravenous Rate/Dose Change 01/07/2025 1502 EDT piperacillin-tazobactam (Zosyn) 4.5 g in sodium chloride 0.9% 100 mL IVPB (vialadapter required) 0 g Intravenous Stopped 01/07/2025 1502 EDT vancomycin (Vancocin) 3,000 mg in sodium chloride 0.9 % 500 mL IVPB 3,000 mg Intravenous New Bag All Other Orders Ordered Status Ordering Provider 01/07/25 1701 Basic Metabolic Panel, Plasma Morning draw Ordered ELVIA BALDWIN 01/07/25 1701 CBC W/O Differential Morning draw Ordered DENNY, ELVIA M 01/07/25 1701 Ionized calcium, serum Morning draw Ordered DENNY, ELVIA M 01/07/25 1701 Magnesium, Plasma Morning draw Ordered DENNY, ELVIA M 01/07/25 1701 Phosphorus, Plasma Morning draw Ordered DENNY, ELVIA M 01/07/25 1701 Intake and output Every 2 hours Ordered DENNY, ELVIA M 01/07/25 1701 Finger Stick Glucose Monitoring Every 6 hours Comments: While on sliding scale insulin protocol Order ID Start Status Ordering Provider [id number] 01/07/25 1800 Ordered DENNY, ELVIA M 01/08/25 0000 Scheduled DENNY, ELVIA M 01/08/25 0600 Scheduled DENNY, ELVIA M 01/08/25 1200 Scheduled DENNY, ELVIA M 01/08/25 1800 Scheduled DENNY, ELVIA M 01/09/25 0000 Scheduled DENNY, ELVIA M 01/09/25 0600 Scheduled DENNY, ELVIA M 01/09/25 1200 Scheduled DENNY, ELVIA M 01/09/25 1800 Scheduled DENNY, ELVIA M 01/10/25 0000 Scheduled DENNY, ELVIA M 01/10/25 0600 Scheduled DENNY, ELVIA M 01/10/25 1200 Scheduled DENNY, ELVIA M Ordered DENNY, ELVIA M 01/07/25 1701 POCT Glucose (if patient NPO, on TPN or continuous nutrition) Every 6 hours Comments: If patient NPO or receiving continuous nutrition (tube feeds or TPN) check POC BG every 6hours. Order ID Start Status Ordering Provider [id number] 01/07/25 1800 Ordered DENNY, ELVIA M 01/08/25 0000 Scheduled DENNY, ELVIA M 01/08/25 0600 Scheduled DENNY, ELVIA M 01/08/25 1200 Scheduled DENNY, ELVIA M 01/08/25 1800 Scheduled DENNY, ELVIA M 01/09/25 0000 Scheduled DENNY, ELVIA M 01/09/25 0600 Scheduled DENNY, ELVIA M 01/09/25 1200 Scheduled DENNY, ELVIA M 01/09/25 1800 Scheduled DENNY, ELVIA M 01/10/25 0000 Scheduled DENNY, ELVIA M 01/10/25 0600 Scheduled DENNY, ELVIA M 01/10/25 1200 Scheduled DENNY, ELVIA M 01/10/25 1800 Scheduled DENNY, ELVIA M 01/11/25 0000 Scheduled DENNY, ELVIA M 01/11/25 0600 Scheduled DENNY, ELVIA M 01/11/25 1200 Scheduled DENNY, ELVIA M 01/11/25 1800 Scheduled DENNY, ELVIA M Ordered DENNY, ELVIA M 01/07/25 1701 Daily weights Daily Ordered DENNY, ELVIA M 01/07/25 1701 Chlorhexidine Wipes Daily Ordered DENNY, ELVIA M 01/07/25 1701 Influenza A,B & Respiratory Syncytial Virus by PCR Once Placed in And Linked Group Ordered DENNY, ELVIA M 01/07/25 1701 Initiate contact isolation Continuous Placed in And Linked Group Ordered DENNY, ELVIA M 01/07/25 1701 Initiate droplet isolation Continuous Placed in And Linked Group Ordered DENNY, ELVIA M 01/07/25 1701 Nasopharyngeal Respiratory Panel Once Placed in And Linked Group Ordered DENNY, ELVIA M 01/07/25 1701 Initiate contact isolation Continuous Placed in And Linked Group Ordered DENNY, ELVIA M 01/07/25 1701 Initiate droplet isolation Continuous Placed in And Linked Group Ordered DENNY, ELVIA M 01/07/25 1701 VAS US Venous Duplex Lower Extremity Bilateral Once Ordered DENNY, ELVIA M 01/07/25 1701 Comprehensive GI Panel by PCR Once Ordered DENNY, ELVIA M 01/07/25 1701 Lactate, venous STAT Ordered DENNY, ELVIA M 01/07/25 1701 Blood gas, arterial STAT Ordered DENNY, ELVIA M 01/07/25 1701 Comprehensive Metabolic Panel, Plasma STAT Ordered DENNY, ELVIA M 01/07/25 1701 CBC and Differential STAT Ordered DENNY, ELVIA M 01/07/25 1701 IONIZED CALCIUM, WHOLE BLOOD Once Ordered DENNY, ELVIA M 01/07/25 1701 Magnesium, Plasma STAT Ordered DENNY, ELVIA M 01/07/25 1701 Phosphorus, Plasma STAT Ordered DENNY, ELVIA M 01/07/25 1701 Sequential compression device Until discontinued Comments: SCDs must be in place and turned on EXCEPT when ACTIVELY ambulating. Ordered DENNY, ELVIA M 01/07/25 1701 Echo, Adult Transthoracic Complete Once Comments: Allow Echo Lab staff order discretion including the administration of Ultrasound Enhancing Agents per department protocol. Call [phone] (for Nils studies); Page [phone] (for GSH [id number]; [phone] after hours for on- call rfid technician). Please provide patient's complete medical history along with pertinent cardiac information to assist with exam interpretation. Ordered ELVIA BALDWIN M 01/07/25 1701 Do Not Give Nicotine Replacement Until discontinued Ordered DENNYELVIA M 01/07/25 1701 NPO diet Diet effective now Ordered DENNY ELVIA M 01/07/25 170 Secure Urethral Catheter Until discontinued Ordered DENNYELVIA M 01/07/25 1701 Admit to inpatient Once Ordered ELVIA BALDWIN M 01/07/25 1701 Mobility Orders Until discontinued Ordered DENNYELVIA M 01/07/25 1701 Adjust HOB (specify) 30 degrees Once Ordered DENNY ELVIA M 01/07/25 1701 Notify physician (specify parameters) Until discontinued Ordered DENNY ELVIA M 01/07/25 1701 Vital Signs Per unit protocol Ordered DENNY ELVIA M 01/07/25 1701 Insert urethral catheter Until discontinued Ordered DENNY ELVIA M 01/07/25 1701 Catheter care Until discontinued Comments: Maintain urethral catheter per hospital policies. Ordered DENNYELVIA M 01/07/25 1701 Insert peripheral IV Once Placed in And Linked Group Ordered DENNYELVIA M 01/07/25 1701 Saline lock IV Once Placed in And Linked Group Ordered DENNYSCARLETEL M 01/07/25 1701 PT eval and treat Until therapy completed Ordered DENNYELVIA M 01/07/25 1701 OT eval and treat Until therapy completed Ordered DENNYELVIA M 01/07/25 1701 Courtney auris Surveillance by PCR Once Ordered DENNYELVIA M 01/07/25 1701 Multi Drug Resistance Test Once Ordered DENNYELVIA M 01/07/25 1701 Hold scheduled meal/prandial insulin, if patient NPO or if patient eats less than 50%of meal. Until discontinued Ordered DENNY ELVIA M 01/07/25 170 Do not hold scheduled basal insulin, if applicable, without physician order. Until discontinued Ordered ELVIA BALDWIN 01/07/25 170 Hemoglobin A1c Once Comments: Obtain at admission unless patient has massive blood loss or renal injury. Do not order if patient has had Hgb A1c checked in last 30 days. Ordered ELVIA BALDWIN 01/07/25 170 Notify Provider Until discontinued Ordered ELVIA BALDWIN 01/07/25 170 For POC BG 71 - 89 mg/dL Until discontinued Comments: If patient is able to take PO (does not have NPO order) give 15 -20 gm of carbohydrate plus protein snack. Options include: 3 anna crackers (15 gm); 2 pkg. saltine crackers (16 gm); 4 oz cup applesauce (17 gm); ?? oz peanut butter,1 container (5 gm); 1 cup regular pudding (21 gm); or 1 cup sugar free pudding (10 gm). Recheck POC BG 30 minutes after administration and follow hypoglycemia prevention protocol. Ordered ELVIA BALDWIN 01/07/25 170 For POC BG 51 - 70 mg/dL Until discontinued Comments: If patient is able to take PO (does not have NPO order) give 15gm of fast acting carbohydrates. Options include 4 oz of juice (apple juice preferred in renal patients), 4 oz non-diet soda or 8 oz milk. Recheck POC BG 15 minutes after administration and retreat if necessary until POC BG is> 100. Ordered ELVIA BALDWIN 01/07/25 170 For POC BG less than or equal to 50 mg/dL Until discontinued Comments: After patient receives 25gm Dextrose and patient alert and can take PO (does not have NPOorder) give 30gm fast acting carbohydrates. Options include 8 oz of juice (apple juice preferred inrenal patients), 8 oz non-diet soda or 16 oz milk. Recheck POC BG 15 minutes after administration and repeat if necessary until POC BG >100. Ordered ELVIA BALDWIN 01/07/25 170 Full code Continuous Ordered ELVIA BALDWIN 01/07/25 1349 EKG now - STAT (adult) Once Preliminary result ANAIS MCPHERSONAKASH Barksdale 01/07/25 1343 Blood gas panel, venous STAT Final result SCOTTY MCPHERSON Shamir 01/07/25 1343 Consult to MICU Once Specialty: Intensive Care Provider: (Not yet assigned) Acknowledged LJANAISSCOTTY Z 01/07/25 1343 XR Chest 1 View One time imaging Final result SCOTTY MCPHERSON Shamir 01/07/25 1212 Troponin T, High Sensitivity, 2 Hour, Plasma PROCEDURE ONCE Final result LJANAISSCOTTY Z 01/07/25 1132 Once Canceled LJSCOTTY Shamir 01/07/25 1132 Once Canceled LJSCOTTY Shamir 01/07/25 1131 Oxygen Therapy - Device: High Flow Nasal Cannula (HFNC); Rate in liters per minute: 30 Lpm Continuous Order ID Start Status Ordering Provider [id number] 01/07/25 1132 Completed KERRY, CHRISTOPHER I [id number] 01/07/251999 Acknowledged KERRY, CHRISTOPHER I [id number] 01/08/25 0800 Acknowledged KERRY, CHRISTOPHER I 01/08/251999 Scheduled KERRY, CHRISTOPHER I 01/09/25 0800 Scheduled KERRY, CHRISTOPHER I 01/09/251999 Scheduled KERRY, CHRISTOPHER I 01/10/25 0800 Scheduled KERRY, CHRISTOPHER I 01/10/251999 Scheduled KERRY, CHRISTOPHER I 01/11/25 0800 Scheduled KERRY, CHRISTOPHER I 01/11/251999 Scheduled KERRY, CHRISTOPHER I Acknowledged KERRY, CHRISTOPHER I 01/07/25 1118 POCT venous blood gas gem PROCEDURE ONCE Final result POCT, GENERIC PROVIDER 01/07/25 1113 Blood Culture (Aerobic/Anaerobet Set) STAT Preliminary result LJSCOTTY KUNZ Shamir 01/07/25 1113 Blood Culture (Aerobic/Anaerobet Set) STAT Preliminary result LJ SCOTTY Shamir 01/07/25 1113 Urinalysis with reflex microscopic AND reflex culture (IF UTI SUSPECTED) STAT Preliminary result LJ SCOTTY Shamir 01/07/25 1113 Type and screen Start now Final result LJSCOTTY Shamir 01/07/25 1113 Hepatitis C Antibody - ED Once Final result SCOTTY MCPHERSON 01/07/25 1113 ED Protocol - HIV 1/2 Antibody/Antigen Screen Once Final result SCOTTY MCPHERSON 01/07/25 1113 Urinalysis with reflex microscopic (Culture NOT Included) PROCEDURE ONCE Final result SCOTTY MCPHERSON 01/07/25 1113 Urine Viera Panel PROCEDURE ONCE Preliminary result SCOTTY MCPHERSON 01/07/25 1113 ED HIV 1/2 Antibody/Antigen Screen w/Reflex to HIV 1/2 Differentiation PROCEDURE ONCE Final result SCOTTY MCPHERSON 01/07/25 1113 CBC w/diff STAT Final result SCOTTY MCPHERSON 01/07/25 1113 PT-INR STAT Final result SCOTTY MCPHERSON 01/07/25 1113 CMP STAT Final result SCOTTY MCPHERSON 01/07/25 1113 Troponin now and 120 min STAT Final result SCOTTY MCPHERSON 01/07/25 1113 BNP STAT Final result SCOTTY MCPHERSON 01/07/25 1113 Thyroid Stimulating Hormone, Plasma STAT Final result SCOTTY MCPHERSON 01/07/25 1113 Free T4, Plasma STAT Final result SCOTTY MCPHERSON 01/07/25 1111 POCT Venous Blood Gas Docked Once Completed KERRY MARÍAABELARDO Delcid 01/07/25 1108 One time imaging Canceled KERRY NADJA Farhana 01/07/25 1107 EKG now - STAT (adult) Once Preliminary result NADJA PAYNE Farhana 01/07/25 1701 POCT Glucose As needed Comments: Recheck POC BG 15 minutes after any hypoglycemia treatment. Continue until POC BG is greater than 100 mg/dL. Ordered ELVIA BALDWIN Prior records were reviewed in the electronic medical record. Patient has a [facility] of recent visitto [facility]. Those records and images were reviewed. Recent adjustment of cardiac pacemaker. Labs show hypercapnic respiratory acidosis. Troponin elevated to 22. Negative delta. CBC shows significant leukocytosis with anemia. Chemistry shows GWEN. Elevated lactate Chest x-ray was ordered and independently interpreted. Mild fluid overload. Rhythm strip independently interpreted. It showed sinus tachycardia with frequent PACs. No acute ischemia noted. Nonspecific intraventricular conduction delay. An interactive discussion was obtained with pulmonary ICU consult service. Management was discussed. Patient will be admitted for further evaluation and management, respiratory support, antibiotics, medical optimization, and re-evaluation. ED Course as of 01/09/25 1349 Sat Jan 07, 2025 1120 On arrival patient in moderate distress secondary to respiratory symptoms. Initial blood pressure was stable however repeat blood pressure demonstrated hypotension, mild tachycardia. Mild vaginal bleeding without active hemorrhage. Diminished lung sounds in the posterior lung jin diffusely,mild increased work of breathing. [ROLF] 1121 pH, Venous(!): 7.31 Respiratory acidosis [ROLF] 1121 Hemoglobin, Venous(!): 8.2 [ROLF] 1121 Lactate, Mandeep(!): 2.4 [ROLF] 1122 EKG now - STAT (adult) Sinus rate, tachycardic, T-wave inversion in 2, 3, AVF, no ST-elevation or depression, no abnormal interval [ROLF] 1207 WBC(!): 14.02 [ROLF] 1207 Hemoglobin(!): 8.3 [ROLF] 1208 INR: 1.1 [ROLF] 1218 BUN(!): 53 [ROLF] 1218 Creatinine(!): 2.43 [ROLF] 1218 Anion Gap(!): 17 [ROLF] 1218 EGFR: 22.8 [ROLF] 1219 Free T4: 1.6 [ROFL] 1219 N-Terminal, PROBNP, Plasma: 710 [ROLF] 1219 TSH: 2.22 [ROLF] 1229 Prior to arrival patient received at least 800 cc of fluid, 10 mcg of epinephrine [ROLF] 1348 Formed by Radiology that the patient is too large to fit into CT scanners. Still continues to have labile blood pressures, difficulty titrating medicals with arterial line placement. [ROLF] 1359 pH, Venous: 7.33 [ROLF] 1359 pCO2, Venous: 50 [ROLF] 1359 Lactate: 1.4 [ROLF] 1426 EKG now - STAT (adult) Sinus rhythm with first-degree AV block, T-wave inversions in 2 3 AVF, no ST- elevation or depression [ROLF] 1428 XR Chest 1 View Cardiomegaly, blunting of left cardiophrenic angle, interstitial opacities in right lung field [ROLF] 1428 Troponin Delta: 4 No delta troponin [ROLF] 1609 Urinalysis with reflex microscopic AND reflex culture (IF UTI SUSPECTED)(!) Less concerning for cystitis [ROLF] 1746 I have had a discussion with the ICU regarding further evaluation of the patient. 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 Cardiology has evaluated without concerns for pericardialeffusion or tamponade or pacemaker dysfunction. ICU has agreed to accept the patient to their care for further management. Patient admitted in critical condition. [ROLF] ED Course User Index [ROLF] Scotty Mcpherson DO Clinical Impressions as of 01/09/25 1349 Shock (CMS/HCC) Social Determinates of Health Risks (including Economic Stability, Education and level of understanding, Healthcare access and quality and concerning social factors): None identified on this visit ED Prescriptions None Disposition Admit Admitting/Attending Physician: NEELA ALEXIS [[id number]] Provider Care Team: [facility] MICU 1 [87] Are they the primary team?: Yes [1] - Scotty Mcpherson DO Resident 01/07/25 4592 Nadja Delcid MD, personally saw the patient, performed critical or romo portions of the service including being present and available at all procedures, and discussed the care with the Resident. I saw and evaluated the patient. I discussed the case with the resident and agree with the findingsand plan as documented. [1] No past medical history on file. [2] No past surgical history on file. [3] No family history on file. [4] [5] Allergies Allergen Reactions Dilaudid [Hydromorphone] Other - please document in the comment field Hypotension Nadja Payne MD 01/09/25 [id number] * ED Triage Notes - Annita Kuo, RN - 01/07/2025 11:00 AM EDT Patient arrives via EMS from home with c/o hypotension, vaginal bleeding. Patient is alert and oriented upon arrival. Reports she was just discharged from [facility] with after having heart issues . Started having increased vaginal bleeding once home, passed several 7cm clots this am. EMS reports uponarrival to scene patient was very lethargic and weak. Found to be hypotensive 60/40, manual bp confirmed. documented in this encounter Plan of Treatment Scheduled Referrals Name Type Priority Associated Diagnoses Order Schedule Discharge Ambulatory referral to [facility] Outpatient Referral Routine Shock ([facility]) GWEN (acute kidney injury) ([facility]) Abnormal uterine and vaginal bleeding, unspecified Morbid obesity with body mass index (BMI) of 40.0 or higher ([facility]) [E66.01] Class III obesity with body mass index (BMI) of 40.0 or higher ([facility]) 1 Occurrences starting 01/13/2025 until 07/17/2026 Ambulatory referral to External PCP Outpatient Referral Routine Shock ([facility]) 1 Occurrences starting 01/14/2025 until 07/18/2026 documented as of this encounter Procedures Procedure Name Priority Date/Time Associated Diagnosis Comments POCT GLUCOSE METER UNSOLICITED RESULTS Routine 01/14/2025 11:49 AM EDT POCT GLUCOSE METER UNSOLICITED RESULTS Routine 01/14/2025 7:46 AM EDT CBC W/O DIFFERENTIAL Routine 01/14/2025 2:44 AM EDT BASIC METABOLIC PANEL, PLASMA Routine 01/14/2025 2:44 AM EDT POCT GLUCOSE METER UNSOLICITED RESULTS Routine 01/13/2025 7:33 PM EDT POCT GLUCOSE METER UNSOLICITED RESULTS Routine 01/13/2025 6:03 PM EDT POCT GLUCOSE METER UNSOLICITED RESULTS Routine 01/13/2025 11:46 AM EDT POCT GLUCOSE METER UNSOLICITED RESULTS Routine 01/13/2025 9:47 AM EDT SURGICAL PATHOLOGY EXAM Routine 01/14/20 9:03 AM EDT Abnormal uterine and vaginal bleeding, unspecified OXYGEN THERAPY Routine 01/13/2025 8:00 AM EDT MS INSERT INTRAUTERINE DEVICE 01/13/2025 7:36 AM EDT Abnormal uterine and vaginal bleeding, unspecified MS HYSTEROSCOPY,W/ENDO BX 01/13/2025 7:36 AM EDT Abnormal uterine and vaginal bleeding, unspecified POCT , URINE Routine 01/13/2025 7:28 AM EDT POCT GLUCOSE METER UNSOLICITED RESULTS Routine 01/13/2025 6:34 AM EDT POCT GLUCOSE METER UNSOLICITED RESULTS Routine 01/12/2025 8:53 PM EDT OXYGEN THERAPY Routine 01/12/2025 8:00 PM EDT POCT GLUCOSE METER UNSOLICITED RESULTS Routine 01/12/2025 5:09 PM EDT XR SHOULDER LEFT 2+ VIEWS Routine 01/12/2025 4:43 PM EDT INSERT PERIPHERAL IV Routine 01/12/2025 2:40 PM EDT CBC W/O DIFFERENTIAL Routine 01/12/2025 2:34 PM EDT TYPE AND SCREEN Routine 01/12/2025 2:34 PM EDT BASIC METABOLIC PANEL, PLASMA Routine 01/12/2025 2:34 PM EDT POCT GLUCOSE METER UNSOLICITED RESULTS Routine 01/12/2025 11:21 AM EDT OXYGEN THERAPY Routine 01/12/2025 8:00 AM EDT POCT GLUCOSE METER UNSOLICITED RESULTS Routine 01/12/2025 5:23 AM EDT POCT GLUCOSE METER UNSOLICITED RESULTS Routine 01/11/2025 11:20 PM EDT POCT GLUCOSE METER UNSOLICITED RESULTS Routine 01/11/2025 9:10 PM EDT OXYGEN THERAPY Routine 01/11/2025 8:00 PM EDT OXYGEN THERAPY Routine 01/11/2025 8:00 PM EDT POCT GLUCOSE METER UNSOLICITED RESULTS Routine 01/11/2025 5:02 PM EDT POCT GLUCOSE METER UNSOLICITED RESULTS Routine 01/11/2025 11:33 AM EDT CBC W/O DIFFERENTIAL Routine 01/11/2025 11:29 AM EDT BASIC METABOLIC PANEL, PLASMA Routine 01/11/2025 11:29 AM EDT ECHO, ADULT TRANSTHORACIC COMPLETE W/ CONTRAST Routine 01/11/2025 11:28 AM EDT POCT GLUCOSE METER UNSOLICITED RESULTS Routine 01/11/2025 8:18 AM EDT OXYGEN THERAPY Routine 01/11/2025 8:00 AM EDT OXYGEN THERAPY Routine 01/11/2025 8:00 AM EDT POCT GLUCOSE METER UNSOLICITED RESULTS Routine 01/11/2025 5:10 AM EDT POCT GLUCOSE METER UNSOLICITED RESULTS Routine 01/11/2025 12:02 AM EDT OXYGEN THERAPY Routine 01/10/2025 8:00 PM EDT OXYGEN THERAPY Routine 01/10/2025 8:00 PM EDT POCT GLUCOSE METER UNSOLICITED RESULTS Routine 01/10/2025 7:31 PM EDT POCT GLUCOSE METER UNSOLICITED RESULTS Routine 01/10/2025 4:58 PM EDT POCT GLUCOSE METER UNSOLICITED RESULTS Routine 01/10/2025 11:42 AM EDT OXYGEN THERAPY Routine 01/10/2025 8:00 AM EDT OXYGEN THERAPY Routine 01/10/2025 8:00 AM EDT POCT GLUCOSE METER UNSOLICITED RESULTS Routine 01/10/2025 7:44 AM EDT CBC W/O DIFFERENTIAL Routine 01/10/2025 4:57 AM EDT POCT GLUCOSE METER UNSOLICITED RESULTS Routine 01/09/2025 8:13 PM EDT OXYGEN THERAPY Routine 01/09/2025 8:00 PM EDT OXYGEN THERAPY Routine 01/09/2025 8:00 PM EDT US PELVIS TRANSVAGINAL Routine 6:06 PM EDT POCT GLUCOSE METER UNSOLICITED RESULTS Routine 01/09/2025 4:34 PM EDT POCT GLUCOSE METER UNSOLICITED RESULTS Routine 01/09/2025 11:51 AM EDT VAS US VENOUS DUPLEX LOWER EXTREMITY BILATERAL Routine 01/09/2025 10:50 AM EDT HEMOGLOBIN AND HEMATOCRIT, BLOOD Routine 01/09/2025 10:27 AM EDT CORTISOL Routine 01/09/2025 8:38 AM EDT OXYGEN THERAPY Routine 01/09/2025 8:00 AM EDT OXYGEN THERAPY Routine 01/09/2025 8:00 AM EDT TROPONIN T, HIGH SENSITIVITY, 2 HOUR, PLASMA Timed 01/09/2025 6:29 AM EDT POCT GLUCOSE METER UNSOLICITED RESULTS Routine 01/09/2025 5:11 AM EDT INSERT PERIPHERAL IV Routine 01/09/2025 4:20 AM EDT TRANSFUSE RED BLOOD CELLS Routine 01/09/2025 3:14 AM EDT PREPARE RBC Routine 01/09/2025 2:40 AM EDT HEMOGLOBIN AND HEMATOCRIT, BLOOD STAT 01/09/2025 1:40 AM EDT HC INSERT CATH,ART,PERCUT,SHORTTE RM Routine 01/09/2025 1:30 AM EDT Shock (CMS/HCC) MS INSERT CATH,ART,PERCUT,SHORTTE RM Routine 01/09/2025 1:30 AM EDT Shock (CMS/HCC) TROPONIN T, HIGH SENSITIVITY, 0 HOUR, PLASMA, REFLEX TO 2 HOUR STAT 01/09/2025 1:06 AM EDT CBC W/O DIFFERENTIAL Routine 01/09/2025 1:06 AM EDT FERRITIN, SERUM Routine 01/09/2025 1:06 AM EDT COMPREHENSIVE METABOLIC PANEL, PLASMA Routine 01/09/2025 1:06 AM EDT POCT GLUCOSE METER UNSOLICITED RESULTS Routine 01/09/2025 12:20 AM EDT OXYGEN THERAPY Routine 01/08/2025 8:00 PM EDT OXYGEN THERAPY Routine 01/08/2025 8:00 PM EDT POCT GLUCOSE METER UNSOLICITED RESULTS Routine 01/08/2025 5:56 PM EDT OXYGEN THERAPY Routine 01/08/2025 5:47 PM EDT OXYGEN THERAPY Routine 01/08/2025 5:47 PM EDT ECG ADULT Routine 01/08/2025 2:01 PM EDT POCT ARTERIAL BLOOD GAS GEM UNSOLICITED RESULTS Routine 01/08/2025 12:41 PM EDT POCT GLUCOSE METER UNSOLICITED RESULTS Routine 01/08/2025 11:36 AM EDT MS CRITICAL CARE, E/M 30-74 MINUTES Routine 01/08/2025 11:01 AM EDT Shock (CMS/HCC) METHICILLIN RESISTANT STAPHYLOCOCCUS AUREUS (MRSA) BY PCR Routine 01/08/2025 9:45 AM EDT WOUND OSTOMY EVAL AND TREAT Routine 01/08/2025 9:22 AM EDT LACTATE, VENOUS Timed 01/08/2025 8:35 AM EDT OXYGEN THERAPY Routine 01/08/2025 8:00 AM EDT LACTATE, VENOUS Timed 01/08/2025 6:03 AM EDT POCT GLUCOSE METER UNSOLICITED RESULTS Routine 01/08/2025 6:03 AM EDT HEMOGLOBIN AND HEMATOCRIT, BLOOD Routine 01/08/2025 4:54 AM EDT LACTATE, VENOUS Timed 01/08/2025 4:01 AM EDT LACTATE, VENOUS Timed 01/08/2025 1:49 AM EDT POCT GLUCOSE METER UNSOLICITED RESULTS Routine 01/08/2025 12:14 AM EDT LACTATE, VENOUS Timed 01/08/2025 12:01 AM EDT IONIZED CALCIUM, SERUM Routine 12:01 AM EDT IRON & TOTAL IRON BINDING CAPACITY, PLASMA (INCLUDES TRANSFERRIN) Add-On 01/08/2025 12:01 AM EDT CBC W/O DIFFERENTIAL Routine 01/08/2025 12:01 AM EDT PHOSPHORUS, PLASMA Routine 01/08/2025 12 :01 AM EDT MAGNESIUM, PLASMA Routine 01/08/2025 12: 01 AM EDT BASIC METABOLIC PANEL, PLASMA Routine 01/08/2025 12:01 AM EDT LACTATE, VENOUS Timed 01/07/2025 10:32 PM EDT OXYGEN THERAPY Routine 01/07/2025 8:00 PM EDT BLOOD GAS PANEL, VENOUS Routine 01/08/20 6:42 PM EDT EXTRA TUBE GOLD TOP Routine 01/07/2025 6 :29 PM EDT EXTRA TUBE LIGHT BLUE TOP Routine 01/07/2025 6:29 PM EDT BETA HYDROXYBUTYRIC ACID Routine 01/07/2025 6:29 PM EDT EXTRA TUBES Routine 01/07/2025 6:29 PM EDT EXTRA TUBES Routine 01/07/2025 6:29 PM EDT PROCALCITONIN, PLASMA Routine 01/07/2025 6:29 PM EDT CBC WITH AUTO DIFFERENTIAL STAT 01/07/2025 6:29 PM EDT PHOSPHORUS, PLASMA STAT 01/07/2025 6: 29 PM EDT MAGNESIUM, PLASMA STAT 01/07/2025 6:2 9 PM EDT HEMOGLOBIN A1C Routine 01/07/2025 6:29 PM EDT COMPREHENSIVE METABOLIC PANEL, PLASMA STAT 01/07/2025 6:29 PM EDT NASOPHARYNGEAL RESPIRATORY PANEL Routine 01/07/2025 6:22 PM EDT INFLUENZA A,B AND RESPIRATORY SYNCYTIAL VIRUS (RSV) BY PCR Routine 01/07/2025 6:22 PM EDT COURTNEY AURIS SURVEILLANCE BY PCR Routine 01/07/2025 6:20 PM EDT MULTI DRUG RESISTANCE TEST Routine 01/07/2025 6:20 PM EDT POCT GLUCOSE METER UNSOLICITED RESULTS Routine 01/07/2025 6:16 PM EDT MS CRITICAL CARE, E/M 30-74 MINUTES Routine 01/07/2025 5:04 PM EDT Shock (CMS/HCC) GWEN (acute kidney injury) (CMS/HCC) Chronic heart failure with preserved ejection fraction (CMS/HCC) URINALYSIS WITH REFLEX MICROSCOPIC AND CULTURE STAT 01/07/2025 3:18 PM EDT URINE VIERA PANEL STAT 01/07/2025 3:18 PM EDT URINALYSIS WITH REFLEX MICROSCOPIC STAT 01/07/2025 3:18 PM EDT ECG ADULT STAT 01/07/2025 2:00 PM EDT XR CHEST 1 VIEW STAT 01/07/2025 1:59 PM EDT TROPONIN T, HIGH SENSITIVITY, 2 HOUR, PLASMA Timed 01/07/2025 1:50 PM EDT BLOOD GAS PANEL, VENOUS STAT 01/08/20 1:50 PM EDT BLOOD CULTURE (AEROBIC/ANAEROBIC SET) STAT 01/07/2025 11:43 AM EDT OXYGEN THERAPY Routine 01/07/2025 11:31 AM EDT OXYGEN THERAPY Routine 01/07/2025 11:31 AM EDT OXYGEN THERAPY Routine 01/07/2025 11:31 AM EDT ED HIV 1/2 ANTIBODY/ANTIGEN SCREEN WITH REFLEX TO HIV I/II DIFFERENTIATION STAT 01/07/2025 11:31 AM EDT ED PROTOCOL HIV 1/2 ANTIBODY/ANTIGEN SCREEN W/REFLEX TO HIV 1/2 ANTIBODY DIFFERENTIATION STAT 01/07/2025 11:31 AM EDT TROPONIN T, HIGH SENSITIVITY, 0 HOUR, PLASMA, REFLEX TO 2 HOUR STAT 01/07/2025 11:31 AM EDT HEPATITIS C ANTIBODY - ED W/REFLEX TO HCV QUANT PCR STAT 01/07/2025 11:31 AM EDT N-TERMINAL PROBNP, PLASMA STAT 01/07/2025 11:31 AM EDT BLOOD CULTURE (AEROBIC/ANAEROBIC SET) STAT 01/07/2025 11:31 AM EDT PROTHROMBIN TIME(PT) / INR STAT 01/07/2025 11:31 AM EDT CBC WITH AUTO DIFFERENTIAL STAT 01/07/2025 11:31 AM EDT TYPE AND SCREEN STAT 01/07/2025 11:31 AM EDT TSH STAT 01/07/2025 11:31 AM EDT FREE T4, PLASMA STAT 01/07/2025 11:31 AM EDT COMPREHENSIVE METABOLIC PANEL, PLASMA STAT 01/07/2025 11:31 AM EDT POCT VENOUS BLOOD GAS GEM UNSOLICITED RESULTS Routine 01/07/2025 11:18 AM EDT ECG ADULT STAT 01/07/2025 11:12 AM EDT CRITICAL CARE Routine 01/07/2025 11:00 AM EDT MS CRITICAL CARE, E/M 30-74 MINUTES Routine 01/07/2025 11:00 AM EDT documented in this encounter Results * (ABNORMAL) POCT glucose meter (01/14/2025 11:49 AM EDT) POCT Glucose 206(H) 74 - 99 mg/dL 01/14/2025 1:38 PM EDT [facility] Comment:Accuracy of a glucos e result obtained from a capillary whole blood specimen relies upon adequate, non-compromised capillary blood flow. If the capillary glucose result is not consistent with the patient's clinical signs and symptoms, glucose testing should be repeated with either an arterial or venous sample on the glucometer or sent to the main labortory for testing. Comment 01/14/2025 1:38 PM EDT [facility] Pt Skilled ID AlobArcelia Alvarez 01/14/2025 1:38 PM EDT [facility]ALTH[facility]ARE [facility] Device ID [id number] 01/14/2025 1:38 PM EDT [facility] Specimen Type POC Capillary 01/14/2025 1:38 PM EDT [facility] Blood Capillary blood specimen / Unknown 01/14/2025 11:49 AM EDT 01/14/2025 1:38 PM EDT us Neo Viera MD LAB POINT OF CARE TE ST DOCKED DEVICE UNSOLICITED RESULTS Final Result Performing Organization Address City/[facility]/ZIP Co de Phone Number [facility]ALTHCARE [facility] [address] [place] [address] * (ABNORMAL) POCT glucose meter (01/14/2025 7:46 AM EDT) POCT Glucose 177(H) 74 - 99 mg/dL 01/14/2025 11:13 AM EDT [facility] Comment:Accuracy of a glucos e result obtained from a capillary whole blood specimen relies upon adequate, non-compromised capillary blood flow. If the capillary glucose result is not consistent with the patient's clinical signs and symptoms, glucose testing should be repeated with either an arterial or venous sample on the glucometer or sent to the main labortory for testing. Comment 01/14/2025 11:13 AM EDT [facility]ALTHCARE LAB Pt Skilled ID Arcelia Tse 01/14/2025 11:13 AM EDT [facility]ALTHCARE LAB Device ID [id number] 01/14/2025 11:13 AM EDT [facility]ALTHCARE LAB Specimen Type POC Capillary 01/14/2025 11:13 AM EDT [facility]ALTH[facility]ARE [facility] Blood Capillary blood specimen / Unknown 01/14/2025 7:46 AM EDT 01/14/2025 11:13 AM EDT us Neo Viera MD LAB POINT OF CARE TE ST DOCKED DEVICE UNSOLICITED RESULTS Final Result Performing Organization Address City/[facility]/ZIP Co de Phone Number [facility]ARE [facility] [address] [place] [address] * (ABNORMAL) CBC W/O Differential (01/14/2025 2:44 AM EDT) WBC Count 11.01(H) 3.70 - 10.30 10*3/uL LAB HEMATOLOGY METHOD 01/14/2025 3:03 AM EDT [facility] RBC Count 3.38(L) 3.90 - 5.20 10*6/uL LAB HEMATOLOGY METHOD 01/14/2025 3:03 AM EDT [facility] HGB 8.9(L) 11.2 - 15.7 g/dL LAB HEMATOLOGY METHOD 01/14/2025 3:03 AM EDT [facility] HCT 29.7(L) 34.0 - 45.0 % LAB HEMATOLOGY METHOD 01/14/2025 3:03 AM EDT [facility] Platelet Count 335 155 - 369 10*3/uL LAB HEMATOLOGY METHOD 01/14/2025 3:03 AM EDT [facility] MCV 88 79 - 98 fL LAB HEMATOLOGY METHOD 01/14/2025 3:03 AM EDT [facility] MCH 26.3 26.0 - 32.0 pg LAB HEMATOLOGY METHOD 01/14/2025 3:03 AM EDT [facility] MCHC 30.0(L) 30.7 - 35.5 g/dL LAB HEMATOLOGY METHOD 01/14/2025 3:03 AM EDT [facility] RDW 15.8(H) 11.5 - 14.5 % LAB HEMATOLOGY METHOD 01/14/2025 3:03 AM EDT [facility] MPV 9.6 8.8 - 12.5 fL LAB HEMATOLOGY METHOD 01/14/2025 3:03 AM EDT [facility] nRBC 0.0 <=0.0 per 100 WBCs LAB HEMATOLOGY METHOD 01/14/2025 3:03 AM EDT [facility] Blood Venous blood specimen / Unknown Venipuncture / Unknown 01/14/2025 2:44 AM EDT 01/14/2025 2:50 AM EDT us Neo Viear MD LAB BLOOD ORDERABLES Final Resul t [facility] [address] [place] [address] * (ABNORMAL) Basic Metabolic Panel, Plasma (01/14/2025 2:44 AM EDT) Glucose, Plasma 266(H) 74 - 99 mg/dL 01/14/2025 3:21 AM EDT [facility] BUN, Plasma 27(H) 7 - 21 mg/dL 01/14/2025 3:21 AM EDT [facility] Creatinine, Plasma 1.09 0.60 - 1.10 mg/dL 01/14/2025 3:21 AM EDT [facility] BUN/Creatinine Ratio 25 01/14/2025 3:21 AM EDT [facility] Sodium, Plasma 133(L) 136 - 145 mmol/L 01/14/2025 3:21 AM EDT [facility] Potassium, Plasma 5.2(H) 3.6 - 4.9 mmol/L 01/14/2025 3:21 AM EDT [facility] Chloride, Plasma 96(L) 97 - 107 mmol/L 01/14/2025 3:21 AM EDT [facility] CO2, Plasma 26 22 - 29 mmol/L 01/14/2025 3:21 AM EDT [facility] Anion Gap 11 6 - 16 mmol/L 01/14/2025 3:21 AM EDT [facility] Total Calcium, Plasma 9.5 8.9 - 10.2 mg/dL 01/14/2025 3:21 AM EDT [facility] eGFRcr 59.7 mL/min/1.7 3m*2 01/14/2025 3:21 AM EDT [facility] Comment:Reported eGFRcr in m L/min/1.73m2 is based the CKD-EPI 2020 equation that does not use a race coefficient. Blood Venous blood specimen / Unknown Venipuncture / Unknown 01/14/2025 2:44 AM EDT 01/14/2025 2:49 AM EDT us Neo Viera MD LAB BLOOD ORDERABLES Final Resul t [facility] [address] [place] [address] * (ABNORMAL) POCT glucose meter (01/13/2025 7:33 PM EDT) [facility] POCT Glucose 322(H) 74 - 99 mg/dL 01/13/2025 7:35 PM EDT [facility] Comment:Accuracy of a glucos e result obtained from a capillary whole blood specimen relies upon adequate, non-compromised capillary blood flow. If the capillary glucose result is not consistent with the patient's clinical signs and symptoms, glucose testing should be repeated with either an arterial or venous sample on the glucometer or sent to the main labortory for testing. Comment 01/13/2025 7:35 PM EDT [facility] Pt Skilled ID Shu Clinton 01/13/2025 7:35 PM EDT [facility] Device ID [id number] 01/13/2025 7:35 PM EDT [facility] Specimen Type POC Capillary 01/13/2025 7:35 PM EDT [facility] Blood Capillary blood specimen / Unknown 01/13/2025 7:33 PM EDT 01/13/2025 7:35 PM EDT Neo Viera MD LAB POINT OF CARE TE ST DOCKED DEVICE UNSOLICITED RESULTS Final Result [facility] [address] [place] [address] * (ABNORMAL) POCT glucose meter (01/13/2025 6:03 PM EDT) [facility] POCT Glucose 366(H) 74 - 99 mg/dL 01/13/2025 6:06 PM EDT [facility] Comment:Accuracy of a glucos e result obtained from a capillary whole blood specimen relies upon adequate, non-compromised capillary blood flow. If the capillary glucose result is not consistent with the patient's clinical signs and symptoms, glucose testing should be repeated with either an arterial or venous sample on the glucometer or sent to the main labortory for testing. Comment 01/13/2025 6:06 PM EDT [facility] Pt Skilled ID Ev Trujillo 01/14/20 6:06 PM EDT [facility] Device ID [id number] 01/13/2025 6:06 PM EDT [facility] Specimen Type POC Capillary 01/13/2025 6:06 PM EDT [facility] Blood Capillary blood specimen / Unknown 01/13/2025 6:03 PM EDT 01/13/2025 6:06 PM EDT us Neo Viera MD LAB POINT OF CARE TE ST DOCKED DEVICE UNSOLICITED RESULTS Final Result Performing Organization Address City/[facility]/ZIP Co de Phone Number [facility] [address] [place] [address] * (ABNORMAL) POCT glucose meter (01/13/2025 11:46 AM EDT) POCT Glucose 184(H) 74 - 99 mg/dL 01/13/2025 11:48 AM EDT [facility] Comment:Accuracy of a glucos e result obtained from a capillary whole blood specimen relies upon adequate, non-compromised capillary blood flow. If the capillary glucose result is not consistent with the patient's clinical signs and symptoms, glucose testing should be repeated with either an arterial or venous sample on the glucometer or sent to the main labortory for testing. Comment 01/13/2025 11:48 AM EDT [facility]ALTH[facility] Pt Skilled ID Ev Trujillo 01/14/20 11:48 AM EDT [facility] Device ID [id number] 01/13/2025 11:48 AM EDT [facility]ALTH[facility] Specimen Type POC Capillary 01/13/2025 11:48 AM EDT [facility] Blood Capillary blood specimen / Unknown 01/13/2025 11:46 AM EDT 01/13/2025 11:48 AM EDT us Neo Viear MD LAB POINT OF CARE TE ST DOCKED DEVICE UNSOLICITED RESULTS Final Result Performing Organization Address City/[facility]/ZIP Co de Phone Number [facility] [address] [place] [address] * (ABNORMAL) POCT glucose meter (01/13/2025 9:47 AM EDT) POCT Glucose 138(H) 74 - 99 mg/dL 01/13/2025 9:49 AM EDT [facility] Comment:Accuracy of a glucos e result obtained from a capillary whole blood specimen relies upon adequate, non-compromised capillary blood flow. If the capillary glucose result is not consistent with the patient's clinical signs and symptoms, glucose testing should be repeated with either an arterial or venous sample on the glucometer or sent to the main labortory for testing. Comment 01/13/2025 9:49 AM EDT [facility]ALTH[facility] LAB Pt Skilled ID Radha Carvajal 01/13/2025 9:49 AM EDT HEALTH[facility]ARE LAB Device ID [id number] 01/13/2025 9:49 AM EDT [facility]ALTH[facility] LAB Specimen Type POC Capillary 01/13/2025 9:49 AM EDT [facility] Blood Capillary blood specimen / Unknown 01/13/2025 9:47 AM EDT 01/13/2025 9:49 AM EDT us Neo Viera MD LAB POINT OF CARE TE ST DOCKED DEVICE UNSOLICITED RESULTS Final Result Performing Organization Address City/State/[facility] Phone Number [facility] [address] [place] [address] * Surgical Pathology Exam (01/13/2025 9:03 AM EDT) Case Report Surgical Pathology Case: [id number] Authorizing Provider: Mat Bowles MD Collected: 01/13/2025 0903 Ordering Location: [facility] Received: 01/13/2025 0947 Pathologist: Conrado Sanchez MD Specimen: Other (specify site), Endometrial tissue - permanent 01/16/2025 10:[address] [facility] Final Diagnosis ENDOMETRIUM, BIOPSY: - BENIGN ENDOMETRIUM WITH POLYP FORMATION AND EXTENSIVE TUBAL METAPLASIA. - NO EVIDENCE OF ATYPIA OR MALIGNANCY. 01/16/2025 10:17 AM EDT [facility] at 1017 EDT Clinical Information Abnormal uterine and vaginal bleeding, unspecified [N93.9] 01/16/2025 10:17 AM EDT [facility] Gross Description A. ENDOMETRIAL TISSUE - PERMANENT Received in formalin labeled endometrial tissue is an aggregate of pink-quinn soft tissue and red-brown hemorrhagic material measuring 2.8 x 1.3 x 0.4 cm. Entirely submitted in cassette A1. Cold Time: 1m Laisha Armendariz 01/16/2025 10:17 AM EDT [facility] Note: A resident was involved in the service. I attest I examined the relevant preparations for the specimens and confirmed the diagnosis or interpretation. 01/16/2025 10:17 AM EDT [facility] Tissue Topography unknown / Unknown 01/13/2025 9:03 AM EDT 01/13/2025 9:47 AM EDT Comment:Pre-op diagnosis: Abnormal uterine and vaginal bleeding, unspecified [N93.9] us Mat Bowles MD LAB PATHOLOGY ORDERABLES Final R esult Performing Organization Address City/[facility]/ZIP Co de Phone Number [facility] [address] [place] [address] * POCT , URINE (01/13/2025 7:28 AM EDT) Pathologist [facility] POCT Test, Urine Negative Males and Non- Females: Negative 01/13/2025 7:35 AM EDT [facility] Pt Skilled ID BeckaErin messina 01/13/2025 7:35 AM EDT [facility] Device ID [id number] 01/13/2025 7:35 AM EDT [facility] Urine Urine specimen obtained by clean catch procedure / Unknown 01/13/2025 7:28 AM EDT 01/13/2025 7:35 AM EDT us Neo Viera MD LAB POINT OF CARE TE ST DOCKED DEVICE UNSOLICITED RESULTS Final Result Performing Organization Address City/[facility] Co de Phone Number [facility] [address] [place] [address] * (ABNORMAL) POCT glucose meter (01/13/2025 6:34 AM EDT) Pathologist [facility] POCT Glucose 116(H) 74 - 99 mg/dL 01/13/2025 6:36 AM EDT [facility] Comment:Accuracy of a glucos e result obtained from a capillary whole blood specimen relies upon adequate, non-compromised capillary blood flow. If the capillary glucose result is not consistent with the patient's clinical signs and symptoms, glucose testing should be repeated with either an arterial or venous sample on the glucometer or sent to the main labortory for testing. Comment 01/13/2025 6:36 AM EDT [facility] Pt Skilled ID Hieu Melvin 01/14/20 6:36 AM EDT [facility] Device ID [id number] 01/13/2025 6:36 AM EDT [facility] Specimen Type POC Capillary 01/13/2025 6:36 AM EDT [facility] Blood Capillary blood specimen / Unknown 01/13/2025 6:34 AM EDT 01/13/2025 6:36 AM EDT us Neo Viera MD LAB POINT OF CARE TE ST DOCKED DEVICE UNSOLICITED RESULTS Final Result Performing Organization Address City/[facility]/ZIP Co de Phone Number [facility] [address] [place] [address] * (ABNORMAL) POCT glucose meter (01/12/2025 8:53 PM EDT) [facility] POCT Glucose 134(H) 74 - 99 mg/dL 01/12/2025 8:55 PM EDT [facility] Comment:Accuracy of a glucos e result obtained from a capillary whole blood specimen relies upon adequate, non-compromised capillary blood flow. If the capillary glucose result is not consistent with the patient's clinical signs and symptoms, glucose testing should be repeated with either an arterial or venous sample on the glucometer or sent to the main labortory for testing. Comment 01/12/2025 8:55 PM EDT [facility] Pt Skilled ID Neela Wilson 01/12/2025 8:55 PM EDT [facility] Device ID [id number] 01/12/2025 8:55 PM EDT [facility] Specimen Type POC Capillary 01/12/2025 8:55 PM EDT [facility] Blood Capillary blood specimen / Unknown 01/12/2025 8:53 PM EDT 01/12/2025 8:55 PM EDT us Neo Viera MD LAB POINT OF CARE TE ST DOCKED DEVICE UNSOLICITED RESULTS Final Result [facility] [address] [place] [address] * (ABNORMAL) POCT glucose meter (01/12/2025 5:09 PM EDT) POCT Glucose 167(H) 74 - 99 mg/dL 01/12/2025 5:12 PM EDT [facility] Comment:Accuracy of a glucos e result obtained from a capillary whole blood specimen relies upon adequate, non-compromised capillary blood flow. If the capillary glucose result is not consistent with the patient's clinical signs and symptoms, glucose testing should be repeated with either an arterial or venous sample on the glucometer or sent to the main labortory for testing. Comment 01/12/2025 5:12 PM EDT [facility] Pt Skilled ID AlobweNagelAdryArcelia 01/12/2025 5:12 PM EDT [facility]ALTH[facility] LAB Device ID [id number] 01/12/2025 5:12 PM EDT [facility] LAB Specimen Type POC Capillary 01/12/2025 5:12 PM EDT [facility] Blood Capillary blood specimen / Unknown 01/12/2025 5:09 PM EDT 01/12/2025 5:12 PM EDT Neo Viera MD LAB POINT OF CARE TE ST DOCKED DEVICE UNSOLICITED RESULTS Final Result Performing Organization Address [facility] de Phone Number [facility] [address] [place] [address] * XR Shoulder Left 2+ Views (01/12/2025 4:43 PM EDT) Anatomical Region Laterality Modality Upper Extremities, Shoulder Left Digi aroldo Radiography Impressions 01/12/2025 4:52 PM EDT Overlying soft tissue limits evaluation of the shoulder. No obvious displaced fracture of dislocations. If there is concern for occult fracture, cross-sectional study is recommended. CRITICAL RESULT: No. COMMUNICATION: Per this written report. Drafted by Timi Armendariz MD on 01/12/2025 4:51 PM Final report signed by Timi Armendariz MD on 01/12/2025 4:52 PM Narrative 01/12/2025 4:52 PM EDT CLINICAL INDICATION: persistent left shoulder pain after an injury 2 weeks prior TECHNIQUE: XR SHOULDER LEFT 2+ VIEWS COMPARISON: None. FINDINGS: Overlying soft tissue limits evaluation of the shoulder. Pacemaker device and leads are noted. No obvious displaced fracture of dislocations. Procedure Note Timi Garibay MD - 01/12/2025 CLINICAL INDICATION: persistent left shoulder pain after an injury 2 weeks prior TECHNIQUE: XR SHOULDER LEFT 2+ VIEWS COMPARISON: None. FINDINGS: Overlying soft tissue limits evaluation of the shoulder. Pacemaker device and leads are noted. No obvious displaced fracture of dislocations. IMPRESSION: Overlying soft tissue limits evaluation of the shoulder. No obvious displaced fracture of dislocations. If there is concern foroccult fracture, cross-sectional study is recommended. CRITICAL RESULT: No. COMMUNICATION: Per this written report. Drafted by Timi Armendariz MD on 01/12/2025 4:51 PM Final report signed by Timi Armendariz MD on 54:52 PM Neo Viera MD IMG XR PROCEDURES Final Result * PERIPHERAL IV (SMARTFORM LINK) (01/12/2025 2:40 PM EDT) Narrative Delaney Cunningham RN - 01/12/2025 2:40 PM EDT Delaney Cunningham RN 01/12/2025 2:40 PM Insert peripheral IV Performed by: Delaney Cunningham RN Authorized by: Neo Viera MD Hand hygiene: Hand hygiene performed prior to insertion Inserted using aseptic techniques: Yes Preparation: Skin prepped with chg Orientation: Right Location: Forearm Catheter placed: Peripheral IV Catheter size: 20g/2.00in Line Technique: Ultrasound Guidance Number of attempts: 1 IV flushes: Without difficulty and positive blood return noted and IV luer locked Patient tolerance: Patient tolerated the procedure well, age appropriate response and there were no complications IV site covered with: Transparent semipermeable dressing Education provided to: Patient Comments: I obtained 10 mL of blood with USG PIV insertion and provided to bedside RN for labs. us Neo Viera MD IV THERAPY ORDERABLES Final Resu lt * (ABNORMAL) CBC W/O Differential (01/12/2025 2:34 PM EDT) WBC Count 11.40(H) 3.70 - 10.30 10*3/uL LAB HEMATOLOGY METHOD 01/12/2025 3:19 PM EDT [facility] RBC Count 3.41(L) 3.90 - 5.20 10*6/uL LAB HEMATOLOGY METHOD 01/12/2025 3:19 PM EDT [facility] HGB 9.0(L) 11.2 - 15.7 g/dL LAB HEMATOLOGY METHOD 01/12/2025 3:19 PM EDT [facility] HCT 30.0(L) 34.0 - 45.0 % LAB HEMATOLOGY METHOD 01/12/2025 3:19 PM EDT [facility] Platelet Count 363 155 - 369 10*3/uL LAB HEMATOLOGY METHOD 01/12/2025 3:19 PM EDT [facility] MCV 88 79 - 98 fL LAB HEMATOLOGY METHOD 01/12/2025 3:19 PM EDT [facility] MCH 26.4 26.0 - 32.0 pg LAB HEMATOLOGY METHOD 01/12/2025 3:19 PM EDT [facility] MCHC 30.0(L) 30.7 - 35.5 g/dL LAB HEMATOLOGY METHOD 01/12/2025 3:19 PM EDT [facility] RDW 15.9(H) 11.5 - 14.5 % LAB HEMATOLOGY METHOD 01/12/2025 3:19 PM EDT [facility] MPV 9.8 8.8 - 12.5 fL LAB HEMATOLOGY METHOD 01/12/2025 3:19 PM EDT [facility] nRBC 0.0 <=0.0 per 100 WBCs LAB HEMATOLOGY METHOD 01/12/2025 3:19 PM EDT [facility] Blood Venous blood specimen / Unknown Venipuncture / Unknown 01/12/2025 2:34 PM EDT 01/12/2025 2:55 PM EDT us Neo Viera MD LAB BLOOD ORDERABLES Final Resul t [facility] [address] [place] [address] * (ABNORMAL) Basic Metabolic Panel, Plasma (01/12/2025 2:34 PM EDT) Glucose, Plasma 235(H) 74 - 99 mg/dL 01/12/2025 3:55 PM EDT [facility] BUN, Plasma 18 7 - 21 mg/dL 01/12/2025 3:55 PM EDT [facility] Creatinine, Plasma 0.93 0.60 - 1.10 mg/dL 01/12/2025 3:55 PM EDT [facility] BUN/Creatinine Ratio 19 01/12/2025 3:55 PM EDT [facility] Sodium, Plasma 134(L) 136 - 145 mmol/L 01/12/2025 3:55 PM EDT [facility] Potassium, Plasma 5.0(H) 3.6 - 4.9 mmol/L 01/12/2025 3:55 PM EDT [facility] Chloride, Plasma 96(L) 97 - 107 mmol/L 01/12/2025 3:55 PM EDT [facility] CO2, Plasma 27 22 - 29 mmol/L 01/12/2025 3:55 PM EDT [facility] Anion Gap 11 6 - 16 mmol/L 01/12/2025 3:55 PM EDT [facility] Total Calcium, Plasma 9.7 8.9 - 10.2 mg/dL 01/12/2025 3:55 PM EDT [facility] eGFRcr 72.3 mL/min/1.7 3m*2 01/12/2025 3:55 PM EDT [facility] Comment:Reported eGFRcr in m L/min/1.73m2 is based the CKD-EPI 2020 equation that does not use a race coefficient. Blood Venous blood specimen / Unknown Venipuncture / Unknown 01/12/2025 2:34 PM EDT 01/12/2025 3:25 PM EDT us Neo Viera MD LAB BLOOD ORDERABLES Final Resul t [facility] [address] [place] [address] * Type and Screen (01/12/2025 2:34 PM EDT) ABO/Rh O Negative 01/12/2025 1:53 PM EDT BLOOD BANK Antibody Screen Negative 01/12/2025 1:53 PM EDT BLOOD BANK Specimen Expiration 01/15/2025 23:59 01/12/2025 1:53 PM EDT BLOOD BANK Blood Venous blood specimen / Unknown Venipuncture / Unknown 01/12/2025 2:34 PM EDT 01/12/2025 2:42 PM EDT Susan LUND LAB BLOOD BANK TEST ORDERABLES F inal Result BLOOD BANK [address] [place] [address], * (ABNORMAL) POCT glucose meter (01/12/2025 11:21 AM EDT) [facility] POCT Glucose 185(H) 74 - 99 mg/dL 01/12/2025 11:32 AM EDT [facility] Comment:Accuracy of a glucos e result obtained from a capillary whole blood specimen relies upon adequate, non-compromised capillary blood flow. If the capillary glucose result is not consistent with the patient's clinical signs and symptoms, glucose testing should be repeated with either an arterial or venous sample on the glucometer or sent to the main labortory for testing. Comment 01/12/2025 11:32 AM EDT [facility] Pt Skilled ID Alobwede Arcelia Mazariegos 01/12/2025 11:32 AM EDT HEALTHCARE LAB Device ID [id number] 01/12/2025 11:32 AM EDT [facility]ALTH[facility]ARE LAB Specimen Type POC Capillary 01/12/2025 11:32 AM EDT [facility] Blood Capillary blood specimen / Unknown 01/12/2025 11:21 AM EDT 01/12/2025 11:32 AM EDT Neo Viera MD LAB POINT OF CARE TE ST DOCKED DEVICE UNSOLICITED RESULTS Final Result [facility] [address] [place] [address] * (ABNORMAL) POCT glucose meter (01/12/2025 5:23 AM EDT) [facility] POCT Glucose 116(H) 74 - 99 mg/dL 01/12/2025 5:26 AM EDT [facility] Comment:Accuracy of a glucos e result obtained from a capillary whole blood specimen relies upon adequate, non-compromised capillary blood flow. If the capillary glucose result is not consistent with the patient's clinical signs and symptoms, glucose testing should be repeated with either an arterial or venous sample on the glucometer or sent to the main labortory for testing. Comment 01/12/2025 5:26 AM EDT [facility] Pt Skilled ID Darlyn Lake 01/12/2025 5:26 AM EDT [facility] Device ID [id number] 01/12/2025 5:26 AM EDT [facility] Specimen Type POC Capillary 01/12/2025 5:26 AM EDT [facility] Blood Capillary blood specimen / Unknown 01/12/2025 5:23 AM EDT 01/12/2025 5:26 AM EDT Neo Viera MD LAB POINT OF CARE TE ST DOCKED DEVICE UNSOLICITED RESULTS Final Result [facility] [address] [place] [address] * (ABNORMAL) POCT glucose meter (01/11/2025 11:20 PM EDT) [facility] POCT Glucose 187(H) 74 - 99 mg/dL 01/11/2025 11:48 PM EDT [facility] Comment:Accuracy of a glucos e result obtained from a capillary whole blood specimen relies upon adequate, non-compromised capillary blood flow. If the capillary glucose result is not consistent with the patient's clinical signs and symptoms, glucose testing should be repeated with either an arterial or venous sample on the glucometer or sent to the main labortory for testing. Comment 01/11/2025 11:48 PM EDT [facility] Pt Skilled ID Darlyn Lake 01/11/2025 11:48 PM EDT [facility] Device ID [id number] 01/11/2025 11:48 PM EDT HEALTHCARE LAB Specimen Type POC Capillary 01/11/2025 11:48 PM EDT [facility]ALTH[facility] Blood Capillary blood specimen / Unknown 01/11/2025 11:20 PM EDT 01/11/2025 11:48 PM EDT Neo Viera MD LAB POINT OF CARE TE ST DOCKED DEVICE UNSOLICITED RESULTS Final Result Performing Organization Address City/[facility] Co de Phone Number [facility] [address] [place] [address] * (ABNORMAL) POCT glucose meter (01/11/2025 9:10 PM EDT) POCT Glucose 190(H) 74 - 99 mg/dL 01/11/2025 9:12 PM EDT [facility] Comment:Accuracy of a glucos e result obtained from a capillary whole blood specimen relies upon adequate, non-compromised capillary blood flow. If the capillary glucose result is not consistent with the patient's clinical signs and symptoms, glucose testing should be repeated with either an arterial or venous sample on the glucometer or sent to the main labortory for testing. Comment 01/11/2025 9:12 PM EDT [facility]ALTH[facility] Pt Skilled ID Darlyn Lake 01/11/2025 9:12 PM EDT HEALTHCARE LAB Device ID [id number] 01/11/2025 9:12 PM EDT [facility]ALTH[facility]ARE LAB Specimen Type POC Capillary 01/11/2025 9:12 PM EDT [facility] Blood Capillary blood specimen / Unknown 01/11/2025 9:10 PM EDT 01/11/2025 9:12 PM EDT us Neo Viera MD LAB POINT OF CARE TE ST DOCKED DEVICE UNSOLICITED RESULTS Final Result Performing Organization Address City/[facility] Co de Phone Number [facility]ARE [facility] [address] [place] [address] * (ABNORMAL) POCT glucose meter (01/11/2025 5:02 PM EDT) POCT Glucose 206(H) 74 - 99 mg/dL 01/11/2025 5:05 PM EDT [facility] Comment:Accuracy of a glucos e result obtained from a capillary whole blood specimen relies upon adequate, non-compromised capillary blood flow. If the capillary glucose result is not consistent with the patient's clinical signs and symptoms, glucose testing should be repeated with either an arterial or venous sample on the glucometer or sent to the main labortory for testing. Comment 01/11/2025 5:05 PM EDT HEALTHCARE LAB Pt Skilled ID Felicia Mai 01/11/2025 5:05 PM EDT HEALTHCARE LAB Device ID [id number] 01/11/2025 5:05 PM EDT HEALTHCARE LAB Specimen Type POC Capillary 01/11/2025 5:05 PM EDT [facility]ALTH[facility] Blood Capillary blood specimen / Unknown 01/11/2025 5:02 PM EDT 01/11/2025 5:05 PM EDT Neo Viera MD LAB POINT OF CARE TE ST DOCKED DEVICE UNSOLICITED RESULTS Final Result [facility] [address] [place] [address] * (ABNORMAL) POCT glucose meter (01/11/2025 11:33 AM EDT) [facility] POCT Glucose 199(H) 74 - 99 mg/dL 01/11/2025 11:36 AM EDT [facility] Comment:Accuracy of a glucos e result obtained from a capillary whole blood specimen relies upon adequate, non-compromised capillary blood flow. If the capillary glucose result is not consistent with the patient's clinical signs and symptoms, glucose testing should be repeated with either an arterial or venous sample on the glucometer or sent to the main labortory for testing. Comment 01/11/2025 11:36 AM EDT [facility] Pt Skilled ID Felicia Mai 01/11/2025 11:36 AM EDT [facility] Device ID [id number] 01/11/2025 11:36 AM EDT [facility] Specimen Type POC Capillary 01/11/2025 11:36 AM EDT [facility]ALTH[facility]ARE LAB Blood Capillary blood specimen / Unknown 01/11/2025 11:33 AM EDT 01/11/2025 11:36 AM EDT us Neo Viera MD LAB POINT OF CARE TE ST DOCKED DEVICE UNSOLICITED RESULTS Final Result [facility] [address] [place] [address] * (ABNORMAL) Basic Metabolic Panel, Plasma (01/11/2025 11:29 AM EDT) Glucose, Plasma 204(H) 74 - 99 mg/dL 01/11/2025 12:19 PM EDT [facility] BUN, Plasma 15 7 - 21 mg/dL 01/11/2025 12:19 PM EDT [facility] Creatinine, Plasma 0.66 0.60 - 1.10 mg/dL 01/11/2025 12:19 PM EDT [facility] BUN/Creatinine Ratio 23 01/11/2025 12:19 PM EDT [facility] Sodium, Plasma 134(L) 136 - 145 mmol/L 01/11/2025 12:19 PM EDT [facility] Potassium, Plasma 5.1(H) 3.6 - 4.9 mmol/L 01/11/2025 12:19 PM EDT [facility] Chloride, Plasma 98 97 - 107 mmol/L 01/11/2025 12:19 PM EDT [facility] CO2, Plasma 27 22 - 29 mmol/L 01/11/2025 12:19 PM EDT [facility] Anion Gap 9 6 - 16 mmol/L 01/11/2025 12:19 PM EDT [facility] Total Calcium, Plasma 8.9 8.9 - 10.2 mg/dL 01/11/2025 12:19 PM EDT [facility] eGFRcr 103.1 mL/min/1.7 3m*2 01/11/2025 12:19 PM EDT [facility] Comment:Reported eGFRcr in m L/min/1.73m2 is based the CKD-EPI 2020 equation that does not use a race coefficient. Blood Venous blood specimen / Unknown Venipuncture / Unknown 01/11/2025 11:29 AM EDT 01/11/2025 11:47 AM EDT us Neo Viera MD LAB BLOOD ORDERABLES Final Resul t [facility] [address] [place] [address] * (ABNORMAL) CBC W/O Differential (01/11/2025 11:29 AM EDT) WBC Count 10.64(H) 3.70 - 10.30 10*3/uL LAB HEMATOLOGY METHOD 01/11/2025 12:05 PM EDT [facility] RBC Count 3.20(L) 3.90 - 5.20 10*6/uL LAB HEMATOLOGY METHOD 01/11/2025 12:05 PM EDT [facility] HGB 8.3(L) 11.2 - 15.7 g/dL LAB HEMATOLOGY METHOD 01/11/2025 12:05 PM EDT [facility] HCT 28.0(L) 34.0 - 45.0 % LAB HEMATOLOGY METHOD 01/11/2025 12:05 PM EDT [facility] Platelet Count 341 155 - 369 10*3/uL LAB HEMATOLOGY METHOD 01/11/2025 12:05 PM EDT [facility] MCV 88 79 - 98 fL LAB HEMATOLOGY METHOD 01/11/2025 12:05 PM EDT [facility] MCH 25.9(L) 26.0 - 32.0 pg LAB HEMATOLOGY METHOD 01/11/2025 12:05 PM EDT [facility] MCHC 29.6(L) 30.7 - 35.5 g/dL LAB HEMATOLOGY METHOD 01/11/2025 12:05 PM EDT [facility] RDW 15.9(H) 11.5 - 14.5 % LAB HEMATOLOGY METHOD 01/11/2025 12:05 PM EDT [facility] MPV 9.8 8.8 - 12.5 fL LAB HEMATOLOGY METHOD 01/11/2025 12:05 PM EDT [facility] nRBC 0.0 <=0.0 per 100 WBCs LAB HEMATOLOGY METHOD 01/11/2025 12:05 PM EDT [facility] Blood Venous blood specimen / Unknown Venipuncture / Unknown 01/11/2025 11:29 AM EDT 01/11/2025 11:56 AM EDT us Neo Viera MD LAB BLOOD ORDERABLES Final Resul t [facility] [address] [place] [address] * ECHO, ADULT TRANSTHORACIC COMPLETE W/ CONTRAST (01/11/2025 11:28 AM EDT) BSA 2.70 m2 [facility] ISCV Height 160.0 [facility] ISCV Weight 195.5 [facility] ISCV LVIDd 44 mm [facility] ISCV LVIDs 31 mm [facility] ISCV IVSd 9 mm [facility] ISCV LVPWd 10 mm [facility] ISCV LV MASS(C)D 137 g MANNY ISCV [facility] CV ECHO LV MASS INDEX 51 g/m2 MANNY ISCV LV RWT 0.43 mm MANNY ISCV LV EDV(MOD-4ch) 147 mL MANNY ISCV LV ESV(MOD4ch) 56 mL MANNY ISCV EF(MOD-sp4) 62 % [facility] ISCV LV EDV(MOD-2ch) 137 mL MANNY ISCV LV ESV(MOD2ch) 60 mL MANNY ISCV EF(MOD-sp2) 56 % MANNY ISCV EDV(MOD-bp) 142 mL MANNY ISCV ESV(MOD-bp) 58 mL MANNY ISCV EF(MOD-bp) 59 % [facility] LVOT diam 23 mm [facility] ISCV LVOT AREA 4.2 cm2 [facility] ISCV LV V1 VTI 19.5 cm MANNY ISCV SV(LVOT) 81 mL MANNY ISCV MV E Vmax 111.0 cm/s MANNY ISCV MV A Vmax 137.0 cm/s MANNY ISCV MV E/A 0.8 cm/s MANNY ISCV TR Vmax 232.0 cm/s MANNY ISCV PA V2 VTI 23.1 cm MANNY ISCV LA dimension 34 mm MANNY ISCV RV base 38 mm MANNY ISCV RV s' Marques 15.8 cm/s MANNY ISCV TAPSE 29 mm MANNY ISCV TR Max PG 22 mmHG MANNY ISCV LV V1 Vmax 112.5 cm/s MANNY ISCV Ao V2 VTI 24.7 cm MANNY ISCV Ao mean PG 4 mmHg MANNY ISCV Ao V2 Vmax 140.5 cm/s MANNY ISCV Ao max PG 8 mmHg [facility] ISCV AV VTI Index 0.79 MANNY ISCV MADHURI(I,D) 3.3 cm2 MANNY ISCV MADHURI(VTI)/BSA_ph l 1.2 cm2/m2 [facility] ISCV MV dec time 190 ms MANNY ISCV MV P1/2t 55 ms [facility] ISCV MVA(P1/2t) 4.0 cm2 [facility] ISCV PA MG 4 mmHg MAN[facility] ISCV PA V2 Vmax 134.0 cm/s MANNY ISCV PA PG 7 mmHg [facility] ISCV Ao Root Diam 30 mm MANNY ISCV Asc Ao Diam 31 mm MANNY ISCV LV mean PG 2.5 mmHG MANNY ISCV LV V1 mean 74.9 cm/sec MANNY ISCV LV max PG 5.1 mmHg MANNY ISCV LVLs ap2 7.8 mm MANNY ISCV AV-pr VR 0.8 MANNY ISCV Ao V2 mean 93.4 cm/s MAN[facility] ISCV RA MOD 4Ch 47 mL MANNY ISCV MONTSE 17 mL/m2 MAN[facility] ISCV LAV(MOD-bp) Indexed 19 mL/m2 MAN[facility] ISCV LAV(MOD-4ch) 42 mL MANNY ISCV LAV(MOD-2ch) 63 mL [facility] ISCV LV Lat e' Velocity 11.9 cm/s MANNY ISCV LV Sept e' Marques 10.0 cm/s MANNY ISCV Lat E/e' 9.3 [facility] ISCV Sep E/e' 11.1 MANNY ISCV Avg E/e' 10.2 MANNY ISCV Anatomical Region Laterality Modality Echocardiography Narrative 01/11/2025 1:32 PM EDT Technically difficult study due to patient's body habitus. Overall the study quality was poor. The left ventricle is not well visualized, but is grossly normal in size. The left ventricular systolic function is normal. The LVEF as measured by biplane volume is 59%. The diastolic function is normal. No regional wall motion abnormalities are seen. The right ventricle was not well visualized. The right ventricular systolic function is normal. No hemodynamically significant valvular disease. There is no recent study available for direct [id number] comparison. Left Ventricle The left ventricle is not well visualized, but is grossly normal in size. The left ventricular systolic function is normal. The LVEF as measured by biplane volume is 59%. The diastolic function is normal. No regional wall motion abnormalities are seen. Right Ventricle The right ventricle was not well visualized. The right ventricular systolic function is normal. Right ventricular systolic pressure is normal (<35mmHg). Left Atrium The interatrial septum is intact with no evidence for an atrial septal defect. Right Atrium The right atrial volume index is normal (18-32mL/m2). IVC/SVC Based on the IVC size and respiratory variation, the estimated right atrial pressure is 3mmHg. Mitral Valve The mitral valve leaflets are normal in appearance with no evidence of mitral valve prolapse. There is trace mitral regurgitation. There is no mitral stenosis. Tricuspid Valve The tricuspid valve is normal in appearance. There is trace tricuspid regurgitation. There is no tricuspid stenosis. Aortic Valve The aortic valve was not well visualized due to poor image quality. There is no valvular regurgitation. There is no hemodynamically significant valvular aortic stenosis. Pulmonic Valve The pulmonic valve is normal in appearance. There is no pulmonic regurgitation. There is no pulmonic stenosis. Pericardium No pericardial effusion. Great Vessels The aortic root is normal in size. In the maximally visualized portion, the ascending aorta appears normal in size. The main pulmonary artery is not well visualized. Study Details A complete transthoracic echocardiogram using two-dimensional (2D), m-mode, color and spectral flow Doppler imaging was performed. Definity contrast was used during the study. Overall the study quality was poor. The study was technically difficult due to patient's body habitus. Height: 160.0 cm. Weight: 195.5 kg. BSA: 2.70 m2. Study Recommendation There is no recent study available for direct [id number]-[id number] comparison. Elvia Baldwin APRN, DNP CV ECHO PROCEDURES Fi nal Result * (ABNORMAL) POCT glucose meter (01/11/2025 8:18 AM EDT) POCT Glucose 119(H) 74 - 99 mg/dL 01/11/2025 8:19 AM EDT [facility] Comment:Accuracy of a glucos e result obtained from a capillary whole blood specimen relies upon adequate, non-compromised capillary blood flow. If the capillary glucose result is not consistent with the patient's clinical signs and symptoms, glucose testing should be repeated with either an arterial or venous sample on the glucometer or sent to the main labortory for testing. Comment 01/11/2025 8:19 AM EDT [facility] Pt Skilled ID Bi Saini 025 8:19 AM EDT [facility] Device ID [id number] 01/11/2025 8:19 AM EDT [facility] Specimen Type POC Capillary 01/11/2025 8:19 AM EDT [facility] Blood Capillary blood specimen / Unknown 01/11/2025 8:18 AM EDT 01/11/2025 8:19 AM EDT us Neo Viera MD LAB POINT OF CARE TE ST DOCKED DEVICE UNSOLICITED RESULTS Final Result Performing Organization Address City/[facility]/ZIP Co de Phone Number [facility] [address] [place] [address] * (ABNORMAL) POCT glucose meter (01/11/2025 5:10 AM EDT) POCT Glucose 142(H) 74 - 99 mg/dL 01/11/2025 5:13 AM EDT [facility] Comment:Accuracy of a glucos e result obtained from a capillary whole blood specimen relies upon adequate, non-compromised capillary blood flow. If the capillary glucose result is not consistent with the patient's clinical signs and symptoms, glucose testing should be repeated with either an arterial or venous sample on the glucometer or sent to the main labortory for testing. Comment 01/11/2025 5:13 AM EDT [facility] Pt Skilled ID Darlyn Lake 01/11/2025 5:13 AM EDT [facility] LAB Device ID [id number] 01/11/2025 5:13 AM EDT [facility] Specimen Type POC Capillary 01/11/2025 5:13 AM EDT [facility] Blood Capillary blood specimen / Unknown 01/11/2025 5:10 AM EDT 01/11/2025 5:13 AM EDT us Neo Viera MD LAB POINT OF CARE TE ST DOCKED DEVICE UNSOLICITED RESULTS Final Result [facility] [address] [place] [address] * (ABNORMAL) POCT glucose meter (01/11/2025 12:02 AM EDT) [facility] POCT Glucose 184(H) 74 - 99 mg/dL 01/11/2025 12:13 AM EDT [facility] Comment:Accuracy of a glucos e result obtained from a capillary whole blood specimen relies upon adequate, non-compromised capillary blood flow. If the capillary glucose result is not consistent with the patient's clinical signs and symptoms, glucose testing should be repeated with either an arterial or venous sample on the glucometer or sent to the main labortory for testing. Comment 01/11/2025 12:13 AM EDT [facility] Pt Skilled ID Darlyn Lake 01/11/2025 12:13 AM EDT [facility] LAB Device ID [id number] 01/11/2025 12:13 AM EDT [facility] Specimen Type POC Capillary 01/11/2025 12:13 AM EDT [facility] Blood Capillary blood specimen / Unknown 01/11/2025 12:02 AM EDT 01/11/2025 12:13 AM EDT Neo Viera MD LAB POINT OF CARE TE ST DOCKED DEVICE UNSOLICITED RESULTS Final Result Performing Organization Address City/State/[facility] Co de Phone Number [facility] [address] [place] [address] * (ABNORMAL) POCT glucose meter (01/10/2025 7:31 PM EDT) [facility] POCT Glucose 286(H) 74 - 99 mg/dL 01/10/2025 7:39 PM EDT [facility] Comment:Accuracy of a glucos e result obtained from a capillary whole blood specimen relies upon adequate, non-compromised capillary blood flow. If the capillary glucose result is not consistent with the patient's clinical signs and symptoms, glucose testing should be repeated with either an arterial or venous sample on the glucometer or sent to the main labortory for testing. Comment 01/10/2025 7:39 PM EDT [facility] Pt Skilled ID Darlyn Lake 01/10/2025 7:39 PM EDT [facility] Device ID [id number] 01/10/2025 7:39 PM EDT [facility] Specimen Type POC Capillary 01/10/2025 7:39 PM EDT [facility] Blood Capillary blood specimen / Unknown 01/10/2025 7:31 PM EDT 01/10/2025 7:39 PM EDT Neo Viera MD LAB POINT OF CARE TE ST DOCKED DEVICE UNSOLICITED RESULTS Final Result Performing Organization Address City/[facility] Co de Phone Number [facility] [address] [place] [address] * (ABNORMAL) POCT glucose meter (01/10/2025 4:58 PM EDT) POCT Glucose 291(H) 74 - 99 mg/dL 01/10/2025 5:00 PM EDT [facility] Comment:Accuracy of a glucos e result obtained from a capillary whole blood specimen relies upon adequate, non-compromised capillary blood flow. If the capillary glucose result is not consistent with the patient's clinical signs and symptoms, glucose testing should be repeated with either an arterial or venous sample on the glucometer or sent to the main labortory for testing. Comment 01/10/2025 5:00 PM EDT [facility] Pt Skilled ID Vicki White 5:00 PM EDT HEALTHCARE LAB Device ID [id number] 01/10/2025 5:00 PM EDT [facility] Specimen Type POC Capillary 01/10/2025 5:00 PM EDT [facility] Blood Capillary blood specimen / Unknown 01/10/2025 4:58 PM EDT 01/10/2025 5:00 PM EDT us Neo Viera MD LAB POINT OF CARE TE ST DOCKED DEVICE UNSOLICITED RESULTS Final Result Performing Organization Address City/[facility]/ZIP Co de Phone Number [facility] [address] [place] [address] * (ABNORMAL) POCT glucose meter (01/10/2025 11:42 AM EDT) POCT Glucose 275(H) 74 - 99 mg/dL 01/10/2025 12:43 PM EDT [facility] Comment:Accuracy of a glucos e result obtained from a capillary whole blood specimen relies upon adequate, non-compromised capillary blood flow. If the capillary glucose result is not consistent with the patient's clinical signs and symptoms, glucose testing should be repeated with either an arterial or venous sample on the glucometer or sent to the main labortory for testing. Comment 01/10/2025 12:43 PM EDT [facility] Pt Skilled ID Slime Campos 01/10/2025 12:43 PM EDT [facility] LAB Device ID [id number] 01/10/2025 12:43 PM EDT [facility] LAB Specimen Type POC Capillary 01/10/2025 12:43 PM EDT [facility] Blood Capillary blood specimen / Unknown 01/10/2025 11:42 AM EDT 01/10/2025 12:43 PM EDT us Neo Viera MD LAB POINT OF CARE TE ST DOCKED DEVICE UNSOLICITED RESULTS Final Result [facility] [address] [place] [address] * (ABNORMAL) POCT glucose meter (01/10/2025 7:44 AM EDT) [facility] POCT Glucose 120(H) 74 - 99 mg/dL 01/10/2025 7:46 AM EDT [facility] Comment:Accuracy of a glucos e result obtained from a capillary whole blood specimen relies upon adequate, non-compromised capillary blood flow. If the capillary glucose result is not consistent with the patient's clinical signs and symptoms, glucose testing should be repeated with either an arterial or venous sample on the glucometer or sent to the main labortory for testing. Comment 01/10/2025 7:46 AM EDT [facility] Pt Skilled ID Gabe Craig 01/10/2025 7:46 AM EDT [facility] LAB Device ID [id number] 01/10/2025 7:46 AM EDT [facility] LAB Specimen Type POC Capillary 01/10/2025 7:46 AM EDT [facility] Blood Capillary blood specimen / Unknown 01/10/2025 7:44 AM EDT 01/10/2025 7:46 AM EDT us Neo Viera MD LAB POINT OF CARE TE ST DOCKED DEVICE UNSOLICITED RESULTS Final Result [facility] [address] [place] [address] * (ABNORMAL) CBC W/O Differential (01/10/2025 4:57 AM EDT) WBC Count 8.64 3.70 - 10.30 10*3/uL LAB HEMATOLOGY METHOD 01/10/2025 6:34 AM EDT [facility] RBC Count 2.92(L) 3.90 - 5.20 10*6/uL LAB HEMATOLOGY METHOD 01/10/2025 6:34 AM EDT [facility] HGB 7.7(L) 11.2 - 15.7 g/dL LAB HEMATOLOGY METHOD 01/10/2025 6:34 AM EDT [facility] HCT 25.9(L) 34.0 - 45.0 % LAB HEMATOLOGY METHOD 01/10/2025 6:34 AM EDT [facility] Platelet Count 317 155 - 369 10*3/uL LAB HEMATOLOGY METHOD 01/10/2025 6:34 AM EDT [facility] MCV 89 79 - 98 fL LAB HEMATOLOGY METHOD 01/10/2025 6:34 AM EDT [facility] MCH 26.4 26.0 - 32.0 pg LAB HEMATOLOGY METHOD 01/10/2025 6:34 AM EDT [facility] MCHC 29.7(L) 30.7 - 35.5 g/dL LAB HEMATOLOGY METHOD 01/10/2025 6:34 AM EDT [facility] RDW 16.0(H) 11.5 - 14.5 % LAB HEMATOLOGY METHOD 01/10/2025 6:34 AM EDT [facility] MPV 10.2 8.8 - 12.5 fL LAB HEMATOLOGY METHOD 01/10/2025 6:34 AM EDT [facility] nRBC 0.0 <=0.0 per 100 WBCs LAB HEMATOLOGY METHOD 01/10/2025 6:34 AM EDT [facility] Blood Venous blood specimen / Unknown Venipuncture / Unknown 01/10/2025 4:57 AM EDT 01/10/2025 6:22 AM EDT John Denton MD LAB BLOOD ORDERABLES Final Re sult [facility] [address] [place] [address] * (ABNORMAL) POCT glucose meter (01/09/2025 8:13 PM EDT) POCT Glucose 169(H) 74 - 99 mg/dL 01/09/2025 8:16 PM EDT [facility] Comment:Accuracy of a glucos e result obtained from a capillary whole blood specimen relies upon adequate, non-compromised capillary blood flow. If the capillary glucose result is not consistent with the patient's clinical signs and symptoms, glucose testing should be repeated with either an arterial or venous sample on the glucometer or sent to the main labortory for testing. Comment 01/09/2025 8:16 PM EDT [facility] Pt Skilled ID Daniel Lemus 8:16 PM EDT [facility]ALTH[facility] LAB Device ID [id number] 01/09/2025 8:16 PM EDT [facility] LAB Specimen Type POC Capillary 01/09/2025 8:16 PM EDT [facility] Blood Capillary blood specimen / Unknown 01/09/2025 8:13 PM EDT 01/09/2025 8:16 PM EDT John Denton MD LAB POINT OF CARE TE ST DOCKED DEVICE UNSOLICITED RESULTS Final Result [facility] [address] [place] [address] * US Pelvis Transvaginal (01/09/2025 6:06 PM EDT) Anatomical Region Laterality Modality Pelvis Ultrasound Impressions 01/09/2025 6:10 PM EDT Poor visualization of the uterus and ovaries. CRITICAL RESULT: No. COMMUNICATION: Per this written report. Drafted by Ariadna Clifford MD on 01/09/2025 6:09 PM Final report signed by Ariadna Clifford MD on 01/09/2025 6:10 PM Narrative 01/09/2025 6:10 PM EDT CLINICAL INDICATION: PMB, hypotension TECHNIQUE: Transvaginal pelvic ultrasound was performed with the acquisition of multiple grayscale images in various imaging planes. COMPARISON: None. FINDINGS: Uterus: Not visualized Ovaries: Right: Not definitively visualized. Left: Not definitively visualized. Procedure Note Ariadna Clifford MD - 01/09/2025 CLINICAL INDICATION: PMB, hypotension TECHNIQUE: Transvaginal pelvic ultrasound was performed with the acquisition ofmultiple grayscale images in various imaging planes. COMPARISON: None. FINDINGS: Uterus: Not visualized Ovaries: Right: Not definitively visualized. Left: Not definitively visualized. IMPRESSION: Poor visualization of the uterus and ovaries. CRITICAL RESULT: No. COMMUNICATION: Per this written report. Drafted by Ariadna Clifford MD on 01/09/2025 6:09 PM Final report signed by Ariadna Clifford MD on 01/09/2025 6:10 PM us Madhav Lemus DO IMG US PROCEDURES Final Result * (ABNORMAL) POCT glucose meter (01/09/2025 4:34 PM EDT) POCT Glucose 275(H) 74 - 99 mg/dL 01/09/2025 4:36 PM EDT [facility] Comment:Accuracy of a glucos e result obtained from a capillary whole blood specimen relies upon adequate, non-compromised capillary blood flow. If the capillary glucose result is not consistent with the patient's clinical signs and symptoms, glucose testing should be repeated with either an arterial or venous sample on the glucometer or sent to the main labortory for testing. Comment 01/09/2025 4:36 PM EDT [facility] Pt Skilled ID Slime Campos 01/09/2025 4:36 PM EDT [facility] Device ID [id number] 01/09/2025 4:36 PM EDT [facility] Specimen Type POC Capillary 01/09/2025 4:36 PM EDT [facility] Blood Capillary blood specimen / Unknown 01/09/2025 4:34 PM EDT 01/09/2025 4:36 PM EDT us Madhav Lemus DO LAB POINT OF CARE TE ST DOCKED DEVICE UNSOLICITED RESULTS Final Result [facility] [address] [place] [address] * (ABNORMAL) POCT glucose meter (01/09/2025 11:51 AM EDT) POCT Glucose 155(H) 74 - 99 mg/dL 01/09/2025 11:53 AM EDT [facility] Comment:Accuracy of a glucos e result obtained from a capillary whole blood specimen relies upon adequate, non-compromised capillary blood flow. If the capillary glucose result is not consistent with the patient's clinical signs and symptoms, glucose testing should be repeated with either an arterial or venous sample on the glucometer or sent to the main labortory for testing. Comment 01/09/2025 11:53 AM EDT [facility] Pt Skilled ID Onofre Stallworth 01/09/2025 11:53 AM EDT [facility] Device ID [id number] 01/09/2025 11:53 AM EDT [facility] Specimen Type POC Capillary 01/09/2025 11:53 AM EDT [facility] Blood Capillary blood specimen / Unknown 01/09/2025 11:51 AM EDT 01/09/2025 11:53 AM EDT Madhav Lemus DO LAB POINT OF CARE TE ST DOCKED DEVICE UNSOLICITED RESULTS Final Result [facility] [address] [place] [address] * VAS US Venous Duplex Lower Extremity Bilateral (01/09/2025 10:50 AM EDT) Anatomical Region Laterality Modality Lower Extremities Bilateral Ultrasound Impressions 01/09/2025 7:49 PM EDT Right: Normal study; no evidence of acute DVT is identified. Left: Normal study; no evidence of acute DVT is identified. Difficult study due to body habitus(BMI 76). COMMUNICATION: Per this written report. Preliminary report signed by Eloisa Goel RVT on 01/09/2025 10:57 AM By electronically signing this report, I, the attending physician, attest that I have personally reviewed the images/data for the above examination(s) and I agree with the final edited report. Drafted by Eloisa Goel RVT on 01/09/2025 10:56 AM Final report signed by Roni Flores MD on 01/09/2025 7:49 PM Narrative 01/09/2025 7:49 PM EDT CLINICAL INDICATION: SOB/PE TECHNIQUE: Non-invasive, real time duplex exam of the lower extremity venous circulation with Doppler ultrasonic waveform and spectral analysis was performed. COMPARISON: None. FINDINGS: Right: Venous duplex demonstrates compressible common femoral, femoral, popliteal, posterior tibial and peroneal veins. The venous spectral analysis demonstrates a spontaneous, phasic, augmentable and nonpulsatile flow signal. Left: Venous duplex demonstrates compressible common femoral, femoral, popliteal, posterior tibial and peroneal veins. The venous spectral analysis demonstrates a spontaneous, phasic, augmentable and nonpulsatile flow signal. Procedure Note Roni Flores MD - 01/09/2025 CLINICAL INDICATION: SOB/PE TECHNIQUE: Non-invasive, real time duplex exam of the lower extremity venouscirculation with Doppler ultrasonic waveform and spectral analysis wasperformed. COMPARISON: None. FINDINGS: Right: Venous duplex demonstrates compressible common femoral, femoral,popliteal, posterior tibial and peroneal veins. The venous spectralanalysis demonstrates a spontaneous, phasic, augmentable and nonpulsatileflow signal. Left: Venous duplex demonstrates compressible common femoral, femoral,popliteal, posterior tibial and peroneal veins. The venous spectralanalysis demonstrates a spontaneous, phasic, augmentable and nonpulsatileflow signal. IMPRESSION: Right: Normal study; no evidence of acute DVT is identified. Left: Normal study; no evidence of acute DVT is identified. Difficult study due to body habitus(BMI 76). COMMUNICATION: Per this written report. Preliminary report signed by Eloisa Goel RVT on 01/09/2025 10:57 AM By electronically signing this report, I, the attending physician, attestthat I have personally reviewed the images/data for the aboveexamination(s) and I agree with the final edited report. Drafted by Eloisa Goel RVT on 01/09/2025 10:56 AM Final report signed by Roni Flores MD on 01/09/2025 7:49 PM Elvia Baldwin MANAGER COMPLIANCE, DNP CV VASCULAR PROCEDURE S Final Result * (ABNORMAL) Hemoglobin and Hematocrit, Blood (01/09/2025 10:27 AM EDT) HGB 7.7(L) 11.2 - 15.7 g/dL LAB HEMATOLOGY METHOD 01/09/2025 10:58 AM EDT [facility] HCT 25.3(L) 34.0 - 45.0 % LAB HEMATOLOGY METHOD 01/09/2025 10:58 AM EDT [facility] Blood Venous blood specimen / Unknown Venipuncture / Unknown 01/09/2025 10:27 AM EDT 01/09/2025 10:42 AM EDT us Neela Alexis MD LAB BLOOD ORDERABLES Final Resu lt Performing Organization Address [facility]/ZIP Co de Phone Number [facility] [address] [place] [address] * Cortisol (01/09/2025 8:38 AM EDT) Cortisol 11.20 Before 10am: 3.7 - 19.4. After 5pm: 2.9 - 17.3 ug/dL 01/09/2025 10:00 AM EDT [facility] Comment:Testing performed on [employer], standardized against [employer] Reference Standard concentration values assigned by LC-MS/MS and verified by BCR 192 and BCR 193 certified reference materials. Blood Venous blood specimen / Unknown Venipuncture / Unknown 01/09/2025 8:38 AM EDT 01/09/2025 8:45 AM EDT us Neela Alexis MD LAB REF LAB BLOOD AND FLUID ORD Final Result Performing Organization Address City/[facility]/ZIP Co de Phone Number [facility] [address] [place] [address] * Transfuse RBC (01/09/2025 6:52 AM EDT) us Neela Alexis MD BLOOD TRANSFUSION ORDERABLES Fi nal Result * Transfuse RBC: 1 Units (01/09/2025 6:52 AM EDT) us Neela Alexis MD BLOOD TRANSFUSION ORDERABLES Fi nal Result * (ABNORMAL) Troponin T, High Sensitivity, 2 Hour, Plasma (01/09/2025 6:29 AM EDT) [facility] Troponin T, High Sensitivity, 2 Hour 16(H) <14 ng/L 01/09/2025 6:58 AM EDT [facility] Troponin Delta 7 <10 ng/L 01/09/2025 6:58 AM EDT [facility] Troponin Delta Interpretation Not Significant 01/09/2025 6:58 AM EDT [facility] Comment:Not Significant. No acute change in troponin observed between the baseline and 2 hour samples. Blood Venous blood specimen / Unknown Venipuncture / Unknown 01/09/2025 6:29 AM EDT 01/09/2025 6:36 AM EDT us Neela Alexis MD LAB BLOOD ORDERABLES Final Resu lt [facility] [address] [place] [address] * (ABNORMAL) POCT glucose meter (01/09/2025 5:11 AM EDT) [facility] POCT Glucose 115(H) 74 - 99 mg/dL 01/09/2025 5:12 AM EDT [facility] Comment:Accuracy of a glucos e result obtained from a capillary whole blood specimen relies upon adequate, non-compromised capillary blood flow. If the capillary glucose result is not consistent with the patient's clinical signs and symptoms, glucose testing should be repeated with either an arterial or venous sample on the glucometer or sent to the main labortory for testing. Comment 01/09/2025 5:12 AM EDT [facility] Pt Skilled ID Preston Maryjane 5:12 AM EDT [facility]ALTH[facility]ARE [facility] Device ID [id number] 01/09/2025 5:12 AM EDT [facility]ALTH[facility]ARE LAB Specimen Type POC Capillary 01/09/2025 5:12 AM EDT [facility]ALTH[facility] Blood Capillary blood specimen / Unknown 01/09/2025 5:11 AM EDT 01/09/2025 5:12 AM EDT us Neela Alexis MD LAB POINT OF CARE TE ST DOCKED DEVICE UNSOLICITED RESULTS Final Result [facility] [address] [place] [address] * PERIPHERAL IV (SMARTFORM LINK) (01/09/2025 4:20 AM EDT) Narrative John Washington RN - 01/09/2025 4:20 AM EDT John Washington RN 01/09/2025 4:30 AM Insert peripheral IV Performed by: John Washington, RN Authorized by: Neela Alexis MD Hand hygiene: Hand hygiene performed prior to insertion Inserted using aseptic techniques: Yes Preparation: Skin prepped with alcohol and skin prepped with chg Orientation: Left, anterior, distal and upper Location: Arm (Cephalic) Catheter placed: Peripheral IV Catheter size: 20g/2.00in (20 gauge/2.25in AccuCath) Line Technique: Ultrasound Guidance Number of attempts: 1 IV flushes: Without difficulty and positive blood return noted and IV luer locked Patient tolerance: Patient tolerated the procedure well and there were no complications Patient comfort measures used: Position of comfort IV site covered with: Transparent semipermeable dressing (CHG tegaderm) Education provided to: Patient Comments: VAT consult for USG PIV. Patient's veins are very deep. New USG PIV placed in left anterior distal upper arm cephalic vein. Image of vein uploaded to PACS. Green alcohol cap placed on end of IV ext tubing. VAT consult completed. us Neela Alexis MD IV THERAPY ORDERABLES Final Res ult * Prepare Leukocyte Reduced RBC: 1 Units, Leukocyte reduced (CMV reduced risk) (01/09/2025 2:40 AM EDT) Product Code [id number] CH BLOO D BANK Dispense Status Transfused BLOOD BANK Blood Expiration Date [id number] BLOOD BANK Unit Number [id number] B LOOD BANK Product Blood Type 9500 BLOOD BANK Blood Type O- BLOOD BANK Crossmatch Compatible BLOOD BANK Other us Neela Alexis MD BLOOD BANK PRODUCT ORDERABLES F inal Result Performing Organization Address [facility] Co de Phone Number BLOOD BANK [address] [place] [address], * (ABNORMAL) Hemoglobin and hematocrit, blood (01/09/2025 1:40 AM EDT) HGB 6.9(L) 11.2 - 15.7 g/dL LAB HEMATOLOGY METHOD 01/09/2025 1:53 AM EDT [facility] HCT 23.4(L) 34.0 - 45.0 % LAB HEMATOLOGY METHOD 01/09/2025 1:53 AM EDT [facility] Blood Venous blood specimen / Unknown Venipuncture / Unknown 01/09/2025 1:40 AM EDT 01/09/2025 1:46 AM EDT us Neela Alexis MD LAB BLOOD ORDERABLES Final Resu lt Performing Organization Address [facility] Co de Phone Number [facility] [address] [place] [address] * MS INSERT CATH,ART,PERCUT,SHORTTERM, HC INSERT CATH,ART,PERCUT,SHORTTERM (01/09/2025 1:30 AM EDT) Narrative Iveth Feng MD - 01/09/2025 1:30 AM EDT Iveth Feng MD 01/09/2025 1:49 AM Arterial line Performed by: Mario Davis DO Authorized by: Neela Alexis MD Consent: Consent obtained: Verbal and written Consent given by: Patient Risks, benefits, and alternatives were discussed: yes Risks discussed: Bleeding, infection, ischemia, repeat procedure and pain [place] protocol: Procedure explained and questions answered to patient or proxy's satisfaction: yes Relevant documents present and verified: yes Test results available: yes Imaging studies available: yes Required blood products, implants, devices, and special equipment available: yes Site/side marked: yes Immediately prior to procedure, a time out was called: yes Patient identity confirmed: Verbally with patient and arm band Attending Supervision?: no Indications: Indications: hemodynamic monitoring Pre-procedure details: Skin preparation: Chlorhexidine Preparation: Patient was prepped and draped in sterile fashion Sedation: Sedation type: None Anesthesia: Anesthesia method: Local infiltration Local anesthetic: Lidocaine 1% w/o epi Procedure details: Location: L radial Wei's test performed: yes Wei's test abnormal: no Needle gauge: 18 G Placement technique: Seldinger and ultrasound guided Number of attempts: 1 Transducer: waveform confirmed Post-procedure details: Post-procedure: Sterile dressing applied, secured with tape and sutured CMS: Normal Procedure completion: Tolerated us Neela Alexis MD IV THERAPY ORDERABLES Final Res ult * (ABNORMAL) Comprehensive Metabolic Panel, Plasma (01/09/2025 1:06 AM EDT) Glucose, Plasma 198(H) 74 - 99 mg/dL 01/09/2025 1:49 AM EDT [facility] BUN, Plasma 31(H) 7 - 21 mg/dL 01/09/2025 1:49 AM EDT [facility] Creatinine, Plasma 0.86 0.60 - 1.10 mg/dL 01/09/2025 1:49 AM EDT [facility] BUN/Creatinine Ratio 36 01/09/2025 1:49 AM EDT [facility] Sodium, Plasma 138 136 - 145 mmol/L 01/09/2025 1:49 AM EDT [facility] Potassium, Plasma 5.3(H) 3.6 - 4.9 mmol/L 01/09/2025 1:49 AM EDT [facility] Chloride, Plasma 104 97 - 107 mmol/L 01/09/2025 1:49 AM EDT [facility] CO2, Plasma 28 22 - 29 mmol/L 01/09/2025 1:49 AM EDT [facility] Anion Gap 6 6 - 16 mmol/L 01/09/2025 1:49 AM EDT [facility] Total Calcium, Plasma 8.3(L) 8.9 - 10.2 mg/dL 01/09/2025 1:49 AM EDT [facility] Total Protein 6.0(L) 6.3 - 7.9 g/dL 01/09/2025 1:49 AM EDT [facility] Albumin, Plasma 3.0(L) 3.5 - 5.2 g/dL 01/09/2025 1:49 AM EDT [facility] AST, Plasma 19 10 - 35 U/L 01/09/2025 1:49 AM EDT [facility] ALT, Plasma 9(L) 10 - 35 U/L 01/09/2025 1:49 AM EDT [facility] Alkaline Phosphatase, Plasma 89 46 - 142 U/L 01/09/2025 1:49 AM EDT [facility] Total Bilirubin, Plasma <0.2(L) 0.2 - 1.1 mg/dL 01/09/2025 1:49 AM EDT [facility] eGFRcr 79.4 mL/min/1.7 3m*2 01/09/2025 1:49 AM EDT [facility] Comment:Reported eGFRcr in m L/min/1.73m2 is based the CKD-EPI 2020 equation that does not use a race coefficient. Blood Venous blood specimen / Unknown Venipuncture / Unknown 01/09/2025 1:06 AM EDT 01/09/2025 1:14 AM EDT us Neela Alexis MD LAB BLOOD ORDERABLES Final Resu lt [facility] [address] [place] [address] * (ABNORMAL) CBC W/O Differential (01/09/2025 1:06 AM EDT) WBC Count 8.14 3.70 - 10.30 10*3/uL LAB HEMATOLOGY METHOD 01/09/2025 1:21 AM EDT [facility] RBC Count 2.61(L) 3.90 - 5.20 10*6/uL LAB HEMATOLOGY METHOD 01/09/2025 1:21 AM EDT [facility] HGB 6.8(L) 11.2 - 15.7 g/dL LAB HEMATOLOGY METHOD 01/09/2025 1:21 AM EDT [facility] HCT 23.4(L) 34.0 - 45.0 % LAB HEMATOLOGY METHOD 01/09/2025 1:21 AM EDT [facility] Platelet Count 284 155 - 369 10*3/uL LAB HEMATOLOGY METHOD 01/09/2025 1:21 AM EDT [facility] MCV 90 79 - 98 fL LAB HEMATOLOGY METHOD 01/09/2025 1:21 AM EDT [facility] MCH 26.1 26.0 - 32.0 pg LAB HEMATOLOGY METHOD 01/09/2025 1:21 AM EDT [facility] MCHC 29.1(L) 30.7 - 35.5 g/dL LAB HEMATOLOGY METHOD 01/09/2025 1:21 AM EDT [facility] RDW 16.4(H) 11.5 - 14.5 % LAB HEMATOLOGY METHOD 01/09/2025 1:21 AM EDT [facility] MPV 9.9 8.8 - 12.5 fL LAB HEMATOLOGY METHOD 01/09/2025 1:21 AM EDT [facility] nRBC 0.0 <=0.0 per 100 WBCs LAB HEMATOLOGY METHOD 01/09/2025 1:21 AM EDT [facility] Blood Venous blood specimen / Unknown Venipuncture / Unknown 01/09/2025 1:06 AM EDT 01/09/2025 1:13 AM EDT us Neela Alexis MD LAB BLOOD ORDERABLES Final Resu lt Performing Organization Address City/[facility]/ZIP Co de Phone Number [facility] [address] [place] [address] * Ferritin (01/09/2025 1:06 AM EDT) Ferritin, Serum 42 13 - 150 ng/mL 01/09/2025 1:48 AM EDT [facility] Blood Venous blood specimen / Unknown Venipuncture / Unknown 01/09/2025 1:06 AM EDT 01/09/2025 1:13 AM EDT us Neela Alexis MD LAB BLOOD ORDERABLES Final Resu lt [facility] [address] [place] [address] * (ABNORMAL) Troponin T, High Sensitivity, 0 Hour Plasma, Reflex to 2 Hour (01/09/2025 1:06 AM EDT) [facility] Troponin T, High Sensitivity, 0 Hour 23(H) <14 ng/L 01/09/2025 1:49 AM EDT [facility] Blood Venous blood specimen / Unknown Venipuncture / Unknown 01/09/2025 1:06 AM EDT 01/09/2025 1:14 AM EDT us Neela Alexis MD LAB BLOOD ORDERABLES Final Resu lt [facility] [address] [place] [address] * (ABNORMAL) POCT glucose meter (01/09/2025 12:20 AM EDT) [facility] POCT Glucose 210(H) 74 - 99 mg/dL 01/09/2025 12:21 AM EDT [facility] Comment:Accuracy of a glucos e result obtained from a capillary whole blood specimen relies upon adequate, non-compromised capillary blood flow. If the capillary glucose result is not consistent with the patient's clinical signs and symptoms, glucose testing should be repeated with either an arterial or venous sample on the glucometer or sent to the main labortory for testing. Comment 01/09/2025 12:21 AM EDT [facility] Pt Skilled ID Maryjane Johnston 12:21 AM EDT [facility]ALTH[facility]ARE LAB Device ID [id number] 01/09/2025 12:21 AM EDT [facility]ALTH[facility]ARE LAB Specimen Type POC Capillary 01/09/2025 12:21 AM EDT [facility] Blood Capillary blood specimen / Unknown 01/09/2025 12:20 AM EDT 01/09/2025 12:21 AM EDT us Neela Alexis MD LAB POINT OF CARE TE ST DOCKED DEVICE UNSOLICITED RESULTS Final Result Performing Organization Address City/[facility]/ZIP Co de Phone Number [facility]ALTHCARE LAB [address] [place] [address] * (ABNORMAL) POCT glucose meter (01/08/2025 5:56 PM EDT) [facility] POCT Glucose 216(H) 74 - 99 mg/dL 01/08/2025 5:57 PM EDT [facility] Comment:Accuracy of a glucos e result obtained from a capillary whole blood specimen relies upon adequate, non-compromised capillary blood flow. If the capillary glucose result is not consistent with the patient's clinical signs and symptoms, glucose testing should be repeated with either an arterial or venous sample on the glucometer or sent to the main labortory for testing. Comment 01/08/2025 5:57 PM EDT [facility] Pt Skilled ID Onofre Stallworth 01/08/2025 5:57 PM EDT [facility] LAB Device ID [id number] 01/08/2025 5:57 PM EDT [facility] Specimen Type POC Capillary 01/08/2025 5:57 PM EDT [facility] Blood Capillary blood specimen / Unknown 01/08/2025 5:56 PM EDT 01/08/2025 5:57 PM EDT us Neela Alexis MD LAB POINT OF CARE TE ST DOCKED DEVICE UNSOLICITED RESULTS Final Result [facility] [address] [place] [address] * ECG Adult (01/08/2025 2:01 PM EDT) EKG DIAGNOSIS CLASS Abnormal MUSE ECG Ventricular Rate 91 BPM MUSE ECG Atrial Rate 91 BPM MUSE ECG MS Interval 186 ms MUSE ECG QRSD Interval 112 ms MUSE ECG QT Interval 366 ms MUSE ECG QTC Interval 450 ms MUSE ECG P [place] 66 degrees MUSE ECG R [place] 72 degrees MUSE ECG T Wave [place] -77 degrees MUSE ECG Diagnosis Normal sinus rhythm MUSE ECG Diagnosis Low voltage QRS MUSE ECG Diagnosis Cannot rule out Anteroseptal infarct , age undetermined MUSE ECG Diagnosis T wave abnormality, consider inferior ischemia MUSE ECG Diagnosis Abnormal ECG MUSE ECG Diagnosis MUSE ECG Diagnosis Confirmed by Ronal Shaikh ([id number]) on 01/09/2025 12:33:16 PM MUSE ECG 01/08/2025 2:01 PM EDT 01/09/2025 12:33 PM EDT us Neela Alexis MD ECG ORDERABLES Final Result MUSE ECG * (ABNORMAL) POCT arterial blood gas gem (01/08/2025 12:41 PM EDT) pH, Arterial 7.35 7.35 - 7.45 01/08/2025 12:42 PM EDT [facility] pCO2, Arterial 55(H) 35 - 48 mm Hg 01/08/2025 12:42 PM EDT [facility] pO2, Arterial 42(LL) 83 - 108 mm Hg 01/08/2025 12:42 PM EDT [facility]ALTH[facility] SO2, Arterial 71(L) 94 - 98 % 01/08/2025 12:42 PM EDT [facility] FIO2 36.0 % 01/08/2025 12:42 PM EDT [facility] Base Excess, Arterial 4.3(H) -2 - 3 mmol/L 01/08/2025 12:42 PM EDT [facility] HCO3, Arterial 30.4(H) 22 - 26 mmol/L 01/08/2025 12:42 PM EDT [facility] Total Hemoglobin, Arterial, Whole Blood 7.0(L) 11.2 - 15.7 g/dL 01/08/2025 12:42 PM EDT [facility] Hematocrit, Arterial 21.0(L) 34.0 - 45.0 % 01/08/2025 12:42 PM EDT [facility] Sodium, Arterial 139 136 - 145 mmol/L 01/08/2025 12:42 PM EDT [facility] Potassium, Arterial 4.7 3.6 - 4.9 mmol/L 01/08/2025 12:42 PM EDT [facility] Comment:Hemolyzed, result ma y be falsely increased. Chloride, Whole Blood 100 97 - 107 mmol/L 01/08/2025 12:42 PM EDT [facility] Glucose, Arterial 208(H) 74 - 99 mg/dL 01/08/2025 12:42 PM EDT [facility] Ionized Calcium, Arterial 4.4(L) 4.6 - 5.1 mg/dL 01/08/2025 12:42 PM EDT [facility] Lactate, Arterial 1.0 0.5 - 1.6 mmol/L 01/08/2025 12:42 PM EDT [facility] Body Temperature 37.0 Celsius 01/08/2025 12:42 PM EDT [facility] pH, Temp Corrected, Arterial 7.35 7.35 - 7.45 01/08/2025 12:42 PM EDT [facility] pCO2, Temp Corrected, Arterial 55(H) 35 - 48 mm Hg 01/08/2025 12:42 PM EDT [facility] pO2, Temp Corrected, Arterial 42(LL) 83 - 108 mm Hg 01/08/2025 12:42 PM EDT [facility] Pt Skilled ID Susan Razo 01/08/2025 12:42 PM EDT [facility] Acknowledged, Notified By JEANETH 01/08/2025 12:42 PM EDT [facility] Critical Notify Time 1241 01/08/2025 12:42 PM EDT [facility] Critical Readback Y 01/08/2025 12:42 PM EDT [facility] Blood, Arterial Whole blood specimen / Unknown 01/08/2025 12:41 PM EDT 01/08/2025 12:42 PM EDT us Neela Alexis MD LAB POINT OF CARE TE ST DOCKED DEVICE UNSOLICITED RESULTS Final Result Performing Organization Address City/State/[facility] Co de Phone Number [facility] [address] [place] [address] * (ABNORMAL) POCT glucose meter (01/08/2025 11:36 AM EDT) POCT Glucose 240(H) 74 - 99 mg/dL 01/08/2025 11:37 AM EDT [facility] Comment:Accuracy of a glucos e result obtained from a capillary whole blood specimen relies upon adequate, non-compromised capillary blood flow. If the capillary glucose result is not consistent with the patient's clinical signs and symptoms, glucose testing should be repeated with either an arterial or venous sample on the glucometer or sent to the main labortory for testing. Comment 01/08/2025 11:37 AM EDT [facility] Pt Skilled ID Onofre Stallworth 01/08/2025 11:37 AM EDT [facility] Device ID [id number] 01/08/2025 11:37 AM EDT [facility] Specimen Type POC Capillary 01/08/2025 11:37 AM EDT [facility] Blood Capillary blood specimen / Unknown 01/08/2025 11:36 AM EDT 01/08/2025 11:37 AM EDT us Neela Alexis MD LAB POINT OF CARE TE ST DOCKED DEVICE UNSOLICITED RESULTS Final Result [facility] [address] [place] [id number] * MS CRITICAL CARE, E/M 30-74 MINUTES (01/08/2025 11:01 AM EDT) Narrative Neela Alexis MD - 01/08/2025 11:01 AM EDT Neela Alexis MD 01/08/2025 4:23 PM Critical Care Performed by: Neela Alexis MD Authorized by: Neela Alexis MD Critical care provider statement: Critical care time (minutes): 60 Critical care time was exclusive of: Separately billable procedures and treating other patients Critical care was time spent personally by me on the following activities: Examination of patient, evaluation of patient's response to treatment, review of old charts and development of treatment plan with patient or surrogate Critical care statement: I saw and evaluated the patient with the resident/ fellow. I discussed the case with the resident/ fellow and agree with the findings and plan as documented. Comments: 54 y/o morbidly obese female- recent pacemaker placement & revision admitted for Shock, unknown etiology. Difficult to obtain Arterial line due to body habitus and vasculature. Will use cuff pressures, goal SBP 110 and monitor mentation and u/o. Will start Midodrine 20 mg TID (as she was previously on this during hospitalization in [facility]). Follow-up cx's, check cortisol. h/o vaginal bleeding, net technical architect consulted. us Neela Alexis MD IN CLINIC/BEDSIDE ORDERABLES Fi nal Result * Methicillin Resistant Staphylococcus aureus (MRSA) by PCR (01/08/2025 9:45 AM EDT) Methicillin Resistant Staphylococcus aureus (MRSA) by PCR Not Detected Not Detected 01/08/2025 11:22 AM EDT [facility] Swab Both anterior nares / Unknown Non-blood Collection / Unknown 01/08/2025 9:45 AM EDT 01/08/2025 10:00 AM EDT Narrative [facility] - 01/08/2025 11:22 AM EDT This test is FDA approved for use with nares swab specimens using the eSwabs. This test is used for clinical purposes. It should not be regarded as investigational or for research. This laboratory is certified under the Clinical Laboratory improvement Amendments of 1988 (CLIA-88 as qualified to perform high complexity clinical laboratory testing. us Neela Alexis MD LAB [facility]OLOGY [facility] Final Result Performing Organization Address [facility]/ZIP Co de Phone Number [facility] [address] [place] [address] * Lactate, venous (01/08/2025 8:35 AM EDT) Lactate, Venous, Whole Blood 1.9 0.5 - 2.2 mmol/L LAB HEMATOLOGY METHOD 01/08/2025 8:42 AM EDT [facility] Blood Venous blood specimen / Unknown Venipuncture / Unknown 01/08/2025 8:35 AM EDT 01/08/2025 8:41 AM EDT Neela Alexis MD LAB BLOOD ORDERABLES Final Resu lt Performing Organization Address [facility] Co de Phone Number [facility] [address] [place] [address] * (ABNORMAL) POCT glucose meter (01/08/2025 6:03 AM EDT) POCT Glucose 196(H) 74 - 99 mg/dL 01/08/2025 6:04 AM EDT [facility] Comment:Accuracy of a glucos e result obtained from a capillary whole blood specimen relies upon adequate, non-compromised capillary blood flow. If the capillary glucose result is not consistent with the patient's clinical signs and symptoms, glucose testing should be repeated with either an arterial or venous sample on the glucometer or sent to the main labortory for testing. Comment 01/08/2025 6:04 AM EDT [facility] Pt Skilled ID Maryjane Johnston 6:04 AM EDT HEALTHCARE LAB Device ID [id number] 01/08/2025 6:04 AM EDT [facility]ALTH[facility]ARE LAB Specimen Type POC Venous 01/08/2025 6:04 AM EDT [facility] Blood Venous blood specimen / Unknown 01/08/2025 6:03 AM EDT 01/08/2025 6:04 AM EDT us Neela Alexis MD LAB POINT OF CARE TE ST DOCKED DEVICE UNSOLICITED RESULTS Final Result Performing Organization Address City/[facility]/ZIP Co de Phone Number [facility] [address] [place] [address] * Lactate, venous (01/08/2025 6:03 AM EDT) Lactate, Venous, Whole Blood 1.0 0.5 - 2.2 mmol/L LAB HEMATOLOGY METHOD 01/08/2025 6:09 AM EDT [facility] Blood Venous blood specimen / Unknown Venipuncture / Unknown 01/08/2025 6:03 AM EDT 01/08/2025 6:08 AM EDT us Neela Alexis MD LAB BLOOD ORDERABLES Final Resu lt [facility] [address] [place] [address] * (ABNORMAL) Hemoglobin and Hematocrit, Blood (01/08/2025 4:54 AM EDT) HGB 7.6(L) 11.2 - 15.7 g/dL LAB HEMATOLOGY METHOD 01/08/2025 5:09 AM EDT [facility] HCT 25.7(L) 34.0 - 45.0 % LAB HEMATOLOGY METHOD 01/08/2025 5:09 AM EDT [facility] Blood Venous blood specimen / Unknown Venipuncture / Unknown 01/08/2025 4:54 AM EDT 01/08/2025 4:59 AM EDT us Neela Alexis MD LAB BLOOD ORDERABLES Final Resu lt Performing Organization Address [facility] de Phone Number [facility] [address] [place] [address] * Lactate, venous (01/08/2025 4:01 AM EDT) Lactate, Venous, Whole Blood 1.8 0.5 - 2.2 mmol/L LAB HEMATOLOGY METHOD 01/08/2025 4:15 AM EDT [facility] Blood Venous blood specimen / Unknown Venipuncture / Unknown 01/08/2025 4:01 AM EDT 01/08/2025 4:13 AM EDT us Neela Alexis MD LAB BLOOD ORDERABLES Final Resu lt Performing Organization Address [facility] de Phone Number [facility] [address] [place] [address] * Lactate, venous (01/08/2025 1:49 AM EDT) [facility] Lactate, Venous, Whole Blood 1.2 0.5 - 2.2 mmol/L LAB HEMATOLOGY METHOD 01/08/2025 2:03 AM EDT [facility] Blood Venous blood specimen / Unknown Venipuncture / Unknown 01/08/2025 1:49 AM EDT 01/08/2025 2:01 AM EDT us Neela Alexis MD LAB BLOOD ORDERABLES Final Resu lt Performing Organization Address [facility] Co de Phone Number [facility] [address] [place] [address] * (ABNORMAL) POCT glucose meter (01/08/2025 12:14 AM EDT) [facility] POCT Glucose 242(H) 74 - 99 mg/dL 01/08/2025 12:15 AM EDT [facility] Comment:Accuracy of a glucos e result obtained from a capillary whole blood specimen relies upon adequate, non-compromised capillary blood flow. If the capillary glucose result is not consistent with the patient's clinical signs and symptoms, glucose testing should be repeated with either an arterial or venous sample on the glucometer or sent to the main labortory for testing. Comment 01/08/2025 12:15 AM EDT [facility]ALTH[facility] Pt Skilled ID Maryjane Johnston 12:15 AM EDT [facility]ALTH[facility] LAB Device ID [id number] 01/08/2025 12:15 AM EDT [facility] Specimen Type POC Venous 01/08/2025 12:15 AM EDT [facility] Blood Venous blood specimen / Unknown 01/08/2025 12:14 AM EDT 01/08/2025 12:15 AM EDT us Neela Alexis MD LAB POINT OF CARE TE ST DOCKED DEVICE UNSOLICITED RESULTS Final Result [facility] [address] [place] [address] * (ABNORMAL) Iron & Total Iron Binding Capacity, Plasma (Includes Transferrin) (01/08/2025 12:01 AM EDT) Iron, Plasma 21(L) 30 - 160 ug/dL 01/08/2025 2:33 PM EDT [facility] Transferrin, Plasma 284 200 - 360 mg/dL 01/08/2025 2:33 PM EDT [facility] Total Iron Binding Capacity, Plasma 355 240 - 450 ug/mL 01/08/2025 2:33 PM EDT [facility] Transferrin Saturation 6(L) 14 - 50 % 01/08/2025 2:33 PM EDT [facility] Blood Venous blood specimen / Unknown Venipuncture / Unknown 01/08/2025 12:01 AM EDT 01/08/2025 12:28 AM EDT us Neela Alexis MD LAB BLOOD ORDERABLES Final Resu lt [facility] [address] [place] [id number] * Lactate, venous (01/08/2025 12:01 AM EDT) Lactate, Venous, Whole Blood 1.4 0.5 - 2.2 mmol/L LAB HEMATOLOGY METHOD 01/08/2025 12:31 AM EDT [facility] Blood Venous blood specimen / Unknown Venipuncture / Unknown 01/08/2025 12:01 AM EDT 01/08/2025 12:30 AM EDT Neela Alexis MD LAB BLOOD [place] [address] * Phosphorus, Plasma (01/08/2025 12:01 AM EDT) Phosphorus, Plasma 3.0 2.5 - 4.5 mg/dL 01/08/2025 1:00 AM EDT [facility] Blood Venous blood specimen / Unknown Venipuncture / Unknown 01/08/2025 12:01 AM EDT 01/08/2025 12:28 AM EDT Elvia Baldwin APRN, DNP LAB BLOOD ORDERABLES Final Result Performing Organization Address City/[facility]/[place] [address] * (ABNORMAL) Magnesium, Plasma (01/08/2025 12:01 AM EDT) Magnesium, Plasma 1.7(L) 1.9 - 2.4 mg/dL 01/08/2025 1:[address] [facility] Blood Venous blood specimen / Unknown Venipuncture / Unknown 01/08/2025 12:01 AM EDT 01/08/2025 12:28 AM EDT Elvia Baldwin APRN, DNP LAB BLOOD [place] [address] * (ABNORMAL) Ionized calcium, serum (01/08/2025 12:01 AM EDT) Ionized Calcium, Serum 4.3(L) 4.6 - 5.3 mg/dL LAB HEMATOLOGY METHOD 01/08/2025 1:07 AM EDT [facility] Blood Venous blood specimen / Unknown Venipuncture / Unknown 01/08/2025 12:01 AM EDT 01/08/2025 12:28 AM EDT us Elvia Baldwin MANAGER COMPLIANCE, DNP LAB BLOOD ORDERABLES Final Result [facility] [address] [place] [address] * (ABNORMAL) CBC W/O Differential (01/08/2025 12:01 AM EDT) WBC Count 12.97(H) 3.70 - 10.30 10*3/uL LAB HEMATOLOGY METHOD 01/08/2025 12:38 AM EDT [facility] RBC Count 2.92(L) 3.90 - 5.20 10*6/uL LAB HEMATOLOGY METHOD 01/08/2025 12:38 AM EDT [facility] HGB 7.6(L) 11.2 - 15.7 g/dL LAB HEMATOLOGY METHOD 01/08/2025 12:38 AM EDT [facility] HCT 25.8(L) 34.0 - 45.0 % LAB HEMATOLOGY METHOD 01/08/2025 12:38 AM EDT [facility] Platelet Count 386(H) 155 - 369 10*3/uL LAB HEMATOLOGY METHOD 01/08/2025 12:38 AM EDT [facility] MCV 88 79 - 98 fL LAB HEMATOLOGY METHOD 01/08/2025 12:38 AM EDT [facility] MCH 26.0 26.0 - 32.0 pg LAB HEMATOLOGY METHOD 01/08/2025 12:38 AM EDT [facility] MCHC 29.5(L) 30.7 - 35.5 g/dL LAB HEMATOLOGY METHOD 01/08/2025 12:38 AM EDT [facility] RDW 16.7(H) 11.5 - 14.5 % LAB HEMATOLOGY METHOD 01/08/2025 12:38 AM EDT [facility] MPV 9.9 8.8 - 12.5 fL LAB HEMATOLOGY METHOD 01/08/2025 12:38 AM EDT [facility] nRBC 0.0 <=0.0 per 100 WBCs LAB HEMATOLOGY METHOD 01/08/2025 12:38 AM EDT [facility] Blood Venous blood specimen / Unknown Venipuncture / Unknown 01/08/2025 12:01 AM EDT 01/08/2025 12:31 AM EDT Elvia Baldwin MANAGER COMPLIANCE, DNP LAB BLOOD ORDERABLES Final Result [facility] [address] [place] [address] * (ABNORMAL) Basic Metabolic Panel, Plasma (01/08/2025 12:01 AM EDT) Glucose, Plasma 230(H) 74 - 99 mg/dL 01/08/2025 1:00 AM EDT [facility] BUN, Plasma 47(H) 7 - 21 mg/dL 01/08/2025 1:00 AM EDT [facility] Creatinine, Plasma 1.61(H) 0.60 - 1.10 mg/dL 01/08/2025 1:00 AM EDT [facility] BUN/Creatinine Ratio 29 01/08/2025 1:00 AM EDT [facility] Sodium, Plasma 134(L) 136 - 145 mmol/L 01/08/2025 1:00 AM EDT [facility] Potassium, Plasma 4.5 3.6 - 4.9 mmol/L 01/08/2025 1:00 AM EDT [facility] Chloride, Plasma 100 97 - 107 mmol/L 01/08/2025 1:00 AM EDT [facility] CO2, Plasma 25 22 - 29 mmol/L 01/08/2025 1:00 AM EDT [facility] Anion Gap 9 6 - 16 mmol/L 01/08/2025 1:00 AM EDT [facility] Total Calcium, Plasma 7.8(L) 8.9 - 10.2 mg/dL 01/08/2025 1:00 AM EDT [facility] eGFRcr 37.4 mL/min/1.7 3m*2 01/08/2025 1:00 AM EDT [facility] Comment:Reported eGFRcr in m L/min/1.73m2 is based the CKD-EPI 2020 equation that does not use a race coefficient. Blood Venous blood specimen / Unknown Venipuncture / Unknown 01/08/2025 12:01 AM EDT 01/08/2025 12:28 AM EDT us Elvia Baldwin APRN, CHASITY LAB BLOOD ORDERABLES Final Result Performing Organization Address [facility] Co de Phone Number [facility] [address] [place] [address] * Lactate, venous (01/07/2025 10:32 PM EDT) Lactate, Venous, Whole Blood 1.4 0.5 - 2.2 mmol/L LAB HEMATOLOGY METHOD 01/07/2025 10:42 PM EDT [facility] Blood Venous blood specimen / Unknown Venipuncture / Unknown 01/07/2025 10:32 PM EDT 01/07/2025 10:41 PM EDT us Neela Alexis MD LAB BLOOD ORDERABLES Final Resu lt Performing Organization Address [facility] Co de Phone Number [facility] [address] [place] [address] * (ABNORMAL) Blood gas panel, venous (01/07/2025 6:42 PM EDT) pH, Venous 7.29(L) 7.32 - 7.43 LAB HEMATOLOGY METHOD 01/07/2025 6:55 PM EDT [facility] pCO2, Venous 53(H) 37 - 52 mmHg LAB HEMATOLOGY METHOD 01/07/2025 6:55 PM EDT [facility] pO2, Venous 66(H) 25 - 40 mmHg LAB HEMATOLOGY METHOD 01/07/2025 6:55 PM EDT [facility] SO2, Measured, Venous 91(H) 65 - 80 % LAB HEMATOLOGY METHOD 01/07/2025 6:55 PM EDT [facility] Base Excess, Venous -1.7 -2.0 - 3.0 mmol/L LAB HEMATOLOGY METHOD 01/07/2025 6:55 PM EDT [facility] Bicarbonate, Calculated, Venous 25 22 - 26 mmol/L LAB HEMATOLOGY METHOD 01/07/2025 6:55 PM EDT [facility] Hematocrit, Whole Blood 32.1(L) 34.0 - 45.0 % LAB HEMATOLOGY METHOD 01/07/2025 6:55 PM EDT [facility] Sodium, Whole Blood 137 136 - 145 mmol/L LAB HEMATOLOGY METHOD 01/07/2025 6:55 PM EDT [facility] Potassium, Whole Blood 3.9 3.6 - 4.9 mmol/L LAB HEMATOLOGY METHOD 01/07/2025 6:55 PM EDT [facility] Chloride, Whole Blood 100 97 - 107 mmol/L LAB HEMATOLOGY METHOD 01/07/2025 6:55 PM EDT [facility] Glucose, Whole Blood 138(H) 74 - 99 mg/dL LAB HEMATOLOGY METHOD 01/07/2025 6:55 PM EDT [facility] Lactate, Venous, Whole Blood 1.4 0.5 - 2.2 mmol/L LAB HEMATOLOGY METHOD 01/07/2025 6:55 PM EDT [facility] Ionized Calcium, Whole Blood 4.1(L) 4.6 - 5.1 mg/dL LAB HEMATOLOGY METHOD 01/07/2025 6:55 PM EDT [facility] Blood Venous blood specimen / Unknown Venipuncture / Unknown 01/07/2025 6:42 PM EDT 01/07/2025 6:53 PM EDT us Neela Alexis MD LAB BLOOD ORDERABLES Final Resu lt [facility] [address] [place] [address] * Gold Top (01/07/2025 6:29 PM EDT) Extra Hold for add-ons 01/07/2025 10:02 PM EDT [facility] Comment:Auto resulted. Blood Venous blood specimen / Unknown 01/07/2025 6:29 PM EDT 01/07/2025 7:05 PM EDT us Neela Alexis MD LAB BLOOD ORDERABLES Final Resu lt Performing Organization Address City/[facility]/ZIP Co de Phone Number [facility] [address] [place] [address] * Light Blue Top (01/07/2025 6:29 PM EDT) Extra Hold for add-ons 01/07/2025 9:02 PM EDT [facility] Comment:Auto resulted. Blood Venous blood specimen / Unknown 01/07/2025 6:29 PM EDT 01/07/2025 6:48 PM EDT us Neela Alexis MD LAB BLOOD ORDERABLES Final Resu lt Performing Organization Address [facility] [place] [address] * (ABNORMAL) BETA HYDROXYBUTYRIC ACID (01/07/2025 6:29 PM EDT) Beta-Hydroxybu tyric Acid, Plasma 0.61(H) <=0.27 mmol/L 01/07/2025 7:[address] [facility] Blood Venous blood specimen / Unknown Venipuncture / Unknown 01/07/2025 6:29 PM EDT 01/07/2025 6:34 PM EDT us Neela Alexis MD LAB BLOOD ORDERABLES Final Resu lt Performing Organization Address City/[facility]/ZIP Co de Phone Number [facility] [address] [place] [address] * (ABNORMAL) Procalcitonin (01/07/2025 6:29 PM EDT) Procalcitonin, Plasma 0.11(H) <0.09 ng/mL 01/07/2025 7:43 PM EDT [facility] Blood Venous blood specimen / Unknown Venipuncture / Unknown 01/07/2025 6:29 PM EDT 01/07/2025 6:34 PM EDT Narrative [facility] - 01/07/2025 7:43 PM EDT Procalcitonin concentrations in healthy individuals are <0.09 ng/mL. Published data support the following interpretive risk assessment: An elevated procalcitonin result does not always indicate sepsis. Various non-infectious conditions are known to increase procalcitonin. Results should be considered in the context of clinical symptoms and other laboratory tests. Procalcitonin >2.0 ng/mL: Concentrations >2.0 ng/mL on the first day of ICU admission are associated with a higher risk of progression to severe sepsis and/or septic shock. The change in PCT over time may help predict 28 day mortality risk. Please consult [email or web address] for more information. Test performed at [facility], [facility] Laboratory. Elvia Baldwin APRN, CHASITY LAB BLOOD ORDERABLES Final Result Performing Organization Address City/[facility]/ZIP Co de Phone Number [facility] [address] [place] [address] * Phosphorus, Plasma (01/07/2025 6:29 PM EDT) Phosphorus, Plasma 4.2 2.5 - 4.5 mg/dL 01/07/2025 7:43 PM EDT [facility] Blood Venous blood specimen / Unknown Venipuncture / Unknown 01/07/2025 6:29 PM EDT 01/07/2025 6:34 PM EDT Elvia Baldwin APRN, CHASITY LAB BLOOD ORDERABLES Final Result [facility] [address] [place] [address] * (ABNORMAL) Magnesium, Plasma (01/07/2025 6:29 PM EDT) Magnesium, Plasma 1.7(L) 1.9 - 2.4 mg/dL 01/07/2025 7:43 PM EDT [facility] Blood Venous blood specimen / Unknown Venipuncture / Unknown 01/07/2025 6:29 PM EDT 01/07/2025 6:34 PM EDT us Elvia Baldwin MANAGER COMPLIANCE, DNP LAB BLOOD ORDERABLES Final Result [facility] [address] [place] [address] * (ABNORMAL) CBC and Differential (01/07/2025 6:29 PM EDT) WBC Count 21.30(H) 3.70 - 10.30 10*3/uL LAB HEMATOLOGY METHOD 01/07/2025 6:42 PM EDT [facility] RBC Count 3.31(L) 3.90 - 5.20 10*6/uL LAB HEMATOLOGY METHOD 01/07/2025 6:42 PM EDT [facility] HGB 8.5(L) 11.2 - 15.7 g/dL LAB HEMATOLOGY METHOD 01/07/2025 6:42 PM EDT [facility] HCT 29.1(L) 34.0 - 45.0 % LAB HEMATOLOGY METHOD 01/07/2025 6:42 PM EDT [facility] Platelet Count 475(H) 155 - 369 10*3/uL LAB HEMATOLOGY METHOD 01/07/2025 6:42 PM EDT [facility] MCV 88 79 - 98 fL LAB HEMATOLOGY METHOD 01/07/2025 6:42 PM EDT [facility] MCH 25.7(L) 26.0 - 32.0 pg LAB HEMATOLOGY METHOD 01/07/2025 6:42 PM EDT [facility] MCHC 29.2(L) 30.7 - 35.5 g/dL LAB HEMATOLOGY METHOD 01/07/2025 6:42 PM EDT [facility] RDW 16.9(H) 11.5 - 14.5 % LAB HEMATOLOGY METHOD 01/07/2025 6:42 PM EDT [facility] MPV 10.0 8.8 - 12.5 fL LAB HEMATOLOGY METHOD 01/07/2025 6:42 PM EDT [facility] nRBC 0.0 <=0.0 per 100 WBCs LAB HEMATOLOGY METHOD 01/07/2025 6:42 PM EDT [facility] Differential Type Automated LAB HEMATOLOGY METHOD 01/07/2025 6:42 PM EDT [facility] Neutrophils % 74 % LAB HEMATOLOGY METHOD 01/07/2025 6:42 PM EDT [facility] Lymphocytes % 17 % LAB HEMATOLOGY METHOD 01/07/2025 6:42 PM EDT [facility] Monocytes % 6 % LAB HEMATOLOGY METHOD 01/07/2025 6:42 PM EDT [facility] Eosinophils % 2 % LAB HEMATOLOGY METHOD 01/07/2025 6:42 PM EDT [facility] Basophils % 0 % LAB HEMATOLOGY METHOD 01/07/2025 6:42 PM EDT [facility] Immature Granulocytes % 1 % LAB HEMATOLOGY METHOD 01/07/2025 6:42 PM EDT [facility] Neutrophils Absolute 15.87(H) 1.60 - 6.10 10*3/uL LAB HEMATOLOGY METHOD 01/07/2025 6:42 PM EDT [facility] Lymphocytes Absolute 3.57 1.20 - 3.90 10*3/uL LAB HEMATOLOGY METHOD 01/07/2025 6:42 PM EDT [facility] Monocytes Absolute 1.25(H) 0.30 - 0.90 10*3/uL LAB HEMATOLOGY METHOD 01/07/2025 6:42 PM EDT [facility] Eosinophils Absolute 0.32 0.00 - 0.50 10*3/uL LAB HEMATOLOGY METHOD 01/07/2025 6:42 PM EDT [facility] Basophils Absolute 0.08 0.00 - 0.10 10*3/uL LAB HEMATOLOGY METHOD 01/07/2025 6:42 PM EDT [facility] Immature Granulocytes Absolute 0.21(H) 0.00 - 0.06 10*3/uL LAB HEMATOLOGY METHOD 01/07/2025 6:42 PM EDT [facility] Blood Venous blood specimen / Unknown Venipuncture / Unknown 01/07/2025 6:29 PM EDT 01/07/2025 6:34 PM EDT [facility] - 01/07/2025 6:42 PM EDT Therapeutic decision making should be based on absolute values, rather than percentages. us Elvia Baldwin MANAGER COMPLIANCE, DNP LAB BLOOD ORDERABLES Final Result [facility] [address] [place] [address] * (ABNORMAL) Comprehensive Metabolic Panel, Plasma (01/07/2025 6:29 PM EDT) Glucose, Plasma 143(H) 74 - 99 mg/dL 01/07/2025 7:43 PM EDT [facility] BUN, Plasma 50(H) 7 - 21 mg/dL 01/07/2025 7:43 PM EDT [facility] Creatinine, Plasma 1.99(H) 0.60 - 1.10 mg/dL 01/07/2025 7:43 PM EDT [facility] BUN/Creatinine Ratio 25 01/07/2025 7:43 PM EDT [facility] Sodium, Plasma 137 136 - 145 mmol/L 01/07/2025 7:43 PM EDT [facility] Potassium, Plasma 4.2 3.6 - 4.9 mmol/L 01/07/2025 7:43 PM EDT [facility] Chloride, Plasma 99 97 - 107 mmol/L 01/07/2025 7:43 PM EDT [facility] CO2, Plasma 21(L) 22 - 29 mmol/L 01/07/2025 7:43 PM EDT [facility] Anion Gap 17(H) 6 - 16 mmol/L 01/07/2025 7:43 PM EDT [facility] Total Calcium, Plasma 8.1(L) 8.9 - 10.2 mg/dL 01/07/2025 7:43 PM EDT [facility] Total Protein 6.8 6.3 - 7.9 g/dL 01/07/2025 7:43 PM EDT [facility] Albumin, Plasma 3.4(L) 3.5 - 5.2 g/dL 01/07/2025 7:43 PM EDT [facility] AST, Plasma 22 10 - 35 U/L 01/07/2025 7:43 PM EDT [facility] ALT, Plasma 13 10 - 35 U/L 01/07/2025 7:43 PM EDT [facility] Alkaline Phosphatase, Plasma 94 46 - 142 U/L 01/07/2025 7:43 PM EDT [facility] Total Bilirubin, Plasma 0.3 0.2 - 1.1 mg/dL 01/07/2025 7:43 PM EDT [facility] eGFRcr 29.0 mL/min/1.7 3m*2 01/07/2025 7:43 PM EDT [facility] Comment:Reported eGFRcr in m L/min/1.73m2 is based the CKD-EPI 2020 equation that does not use a race coefficient. Blood Venous blood specimen / Unknown Venipuncture / Unknown 01/07/2025 6:29 PM EDT 01/07/2025 6:34 PM EDT Elvia Baldwin APRN, CHASITY LAB BLOOD ORDERABLES Final Result Performing Organization Address City/[facility] Co de Phone Number [facility] [address] [place] [address] * (ABNORMAL) Hemoglobin A1c (01/07/2025 6:29 PM EDT) Hemoglobin A1c 6.6(H) <5.7 % 01/08/2025 12:52 PM EDT [facility] Blood Venous blood specimen / Unknown Venipuncture / Unknown 01/07/2025 6:29 PM EDT 01/07/2025 6:34 PM EDT Narrative [facility] - 01/08/2025 12:52 PM EDT HA1C Interpretive Data: Diagnosis of Diabetes: Diabetic > or = 6.5% Pre-diabetic 5.7 to 6.4% Non-diabetic < or = 5.6% Glycemic Targets for Type I and Type II Diabetics: Non- Adults <7.0% Adults <6.0% Children and Adolescents <7.5% Source: [place] [employer]. Standards of medical care in diabetes,2017. Diabetes Care.2017:40 (suppl 1):S1-S135. us Elvia Baldwin APRN, CHASITY LAB BLOOD ORDERABLES Final Result Performing Organization Address City/[facility]/ZIP Co de Phone Number [facility] [address] [place] [address] * Nasopharyngeal Respiratory Panel (01/07/2025 6:22 PM EDT) Pathologist [facility] Nasopharyngeal Respiratory PCR Interpretation Not Detected for all analytes Not Detected for all analytes 01/07/2025 8:53 PM EDT [facility] Swab Nasopharyngeal structure / Unknown Non-blood Collection / Unknown 01/07/2025 6:22 PM EDT 01/07/2025 6:58 PM EDT Narrative [facility] - 01/07/2025 8:53 PM EDT This assay can detect Adenovirus, Coronavirus, Human Metapneumovirus, Human Rhino/Enterovirus, Influenza A, Influenza A H1, Influenza A H1 2009, Influenza A H3, Influenza B, Parainfluenza Virus 1, Parainfluenza Virus 2, Parainfluenza Virus 3, Parainfluenza Virus 4, Respiratory Syncytial Virus A, Respiratory Syncytial Virus B, Chlamydia pneumoniae, and Mycoplasma pneumoniae. Note: This assay does NOT detect SARS/CoV, novel Coronavirus 2019-nCoV, Bordetella pertussis or Bordetella parapertussis. Nasopharyngeal Respiratory PCR Panel is performed using the [employer] e[employer] instrument. This test is FDA approved for use with Nasopharyngeal swabs only. This test is used for clinical purposes. It should not be regarded as investigational or for research. The [facility] is certified under the Clinical Laboratory Improvement Amendments of 1988 (CLIA-88) as qualified to perform high complexity clinical laboratory testing. Elvia Baldwin APRN, DNP LAB MICROBIOLOGY - [facility] ORDERABLES Final Result [facility] [address] [place] [address] * Influenza A,B & Respiratory Syncytial Virus by PCR (01/07/2025 6:22 PM EDT) Pathologist [facility] Influenza A Virus PCR Result Not Detected Not Detected 01/10/2025 7:15 AM EDT [facility] Influenza B Virus PCR Result Not Detected Not Detected 01/10/2025 7:15 AM EDT [facility] Respiratory Syncytial Virus (RSV) PCR Result Not Detected Not Detected 01/10/2025 7:15 AM EDT [facility] Swab Nasopharyngeal structure / Unknown Non-blood Collection / Unknown 01/07/2025 6:22 PM EDT 01/07/2025 6:58 PM EDT Elvia Baldwin APRN, DNP LAB MICROBIOLOGY - GE NERAL ORDERABLES Final Result Performing Organization Address [facility] Co de Phone Number [facility] [address] [place] [address] * Multi Drug Resistance Test (01/07/2025 6:20 PM EDT) Culture No growth at day 1 01/08/2025 9:[address] [facility] Swab (Nares and Sharla Rectal) Non-blood Collection / Unknown 01/07/2025 6:20 PM EDT 01/07/2025 6:58 PM EDT Narrative [facility] - 01/08/2025 9:02 PM EDT This test was developed and its performance characteristics determined by the [facility]. Although the media is FDA-approved, it is not FDA-approved for all specimen types submitted. The FDA has determined that such clearance or approval is not necessary. This test is used for surveillance purposes. It should not be regarded as investigational or for research. The [facility] is certified under the Clinical Laboratory Improvement Amendments of 1988 (CLIA-88) as qualified to perform high complexity clinical laboratory testing. Elvia Baldwin APRN, DNP LAB MICROBIOLOGY - GE NERAL ORDERABLES Final Result Performing Organization Address City/[facility]/ZIP Co de Phone Number [facility] [address] [place] [address] * Courtney auris Surveillance by PCR (01/07/2025 6:20 PM EDT) Courtney auris PCR Result Not Detected Not Detected 01/10/2025 6:32 AM EDT [facility] Swab (Axilla and Groin) Non-blood Collection / Unknown 01/07/2025 6:20 PM EDT 01/07/2025 6:58 PM EDT Narrative [facility] - 01/10/2025 6:32 AM EDT This PCR assay was developed and its performance characteristics determined by [facility] as appropriate for clinical purposes. This assay has not been cleared or approved by the FDA, but is performed in a CLIA regulated laboratory that is qualified to perform high-complexity testing. us Elvia Baldwin APRN, CHASITY LAB MICROBIOLOGY - NERMD ORDERABLES Final Result Performing Organization Address City/[facility]/ZIP Co de Phone Number [facility] [address] [place] [address] * (ABNORMAL) POCT glucose meter (01/07/2025 6:16 PM EDT) [facility] POCT Glucose 138(H) 74 - 99 mg/dL 01/07/2025 6:17 PM EDT [facility] Comment:Accuracy of a glucos e result obtained from a capillary whole blood specimen relies upon adequate, non-compromised capillary blood flow. If the capillary glucose result is not consistent with the patient's clinical signs and symptoms, glucose testing should be repeated with either an arterial or venous sample on the glucometer or sent to the main labortory for testing. Comment 01/07/2025 6:17 PM EDT [facility] Pt Skilled ID Rosey Whitehead 6:17 PM EDT [facility] Device ID [id number] 01/07/2025 6:17 PM EDT [facility] Specimen Type POC Capillary 01/07/2025 6:17 PM EDT [facility] Blood Capillary blood specimen / Unknown 01/07/2025 6:16 PM EDT 01/07/2025 6:17 PM EDT us Neela Alexis MD LAB POINT OF CARE TE ST DOCKED DEVICE UNSOLICITED RESULTS Final Result Performing Organization Address City/[facility]/ZIP Co de Phone Number [facility] [address] [place] [address] * [facility] CRITICAL CARE, E/M 30-74 MINUTES (01/07/2025 5:04 PM EDT) Narrative Bhaskar Albert MD - 01/07/2025 5:04 PM EDT Bhaskar Albert MD 01/07/2025 5:32 PM Critical Care Performed by: Kate Schroeder APRN Authorized by: Kate Schroeder APRN Critical care provider statement: Critical care time (minutes): 60 Critical care time was exclusive of: Separately billable procedures and treating other patients Critical care was time spent personally by me on the following activities: Development of treatment plan with patient or surrogate, discussions with primary provider, discussions with consultants, evaluation of patient's response to treatment, examination of patient, obtaining history from patient or surrogate, ordering and performing treatments and interventions, ordering and review of laboratory studies, ordering and review of radiographic studies and review of old charts Comments: The patient is critically ill with: shock, GWEN. They require complex decision making. The patient was seen on rounds with critical care physician, Dr. Albert and they are in agreement with the plan of care. Pharmacy, respiratory and nursing services were present on rounds. us Kate Schroeder APRN [place] CLINIC/BEDSIDE ORDERAB LES Final Result * Urine Viera Panel (01/07/2025 3:18 PM EDT) Extra Reflex urine culture not indicated 01/08/2025 12:02 AM EDT [facility] Comment: Previously prelim verified as Specimen evaluation in progress on 01/07/2025 at 1702 EDT. Previously prelim verified as Specimen evaluation in progress on 01/07/2025 at 1801 EDT. Previously prelim verified as Specimen evaluation in progress on 01/07/2025 at 1902 EDT. Previously prelim verified as Specimen evaluation in progress on 01/07/2025 at 2002 EDT. Previously prelim verified as Specimen evaluation in progress on 01/07/2025 at 2101 EDT. Previously prelim verified as Specimen evaluation in progress on 01/07/2025 at 2202 EDT. Previously prelim verified as Specimen evaluation in progress on 01/07/2025 at 2302 EDT. Urine Urine specimen obtained by clean catch procedure / Unknown Non-blood Collection / Unknown 01/07/2025 3:18 PM EDT 01/07/2025 3:30 PM EDT us Nadja Payne MD LAB URINE ORDERABLES Final Result [facility] [address] [place] [address] * (ABNORMAL) Urinalysis with reflex microscopic (Culture NOT Included) (01/07/2025 3:18 PM EDT) Color, Urine Yellow LAB URINALYSIS - AUTOMATED METHOD 01/07/2025 3:49 PM EDT [facility] Clarity, Urine Clear LAB URINALYSIS - AUTOMATED METHOD 01/07/2025 3:49 PM EDT [facility] Spec Mobile, Urine 1.017 1.005 - 1.030 LAB URINALYSIS - AUTOMATED METHOD 01/07/2025 3:49 PM EDT [facility] pH, Urine <=5.0(L) 5.0 - 8.0 LAB URINALYSIS - AUTOMATED METHOD 01/07/2025 3:49 PM EDT [facility] Protein, Urine Trace(A) Negative mg/dL LAB URINALYSIS - AUTOMATED METHOD 01/07/2025 3:49 PM EDT [facility] Glucose, Urine Negative Negative mg/dL LAB URINALYSIS - AUTOMATED METHOD 01/07/2025 3:49 PM EDT [facility] Ketones, Urine Negative Negative mg/dL LAB URINALYSIS - AUTOMATED METHOD 01/07/2025 3:49 PM EDT [facility] Blood, Urine Negative Negative LAB URINALYSIS - AUTOMATED METHOD 01/07/2025 3:49 PM EDT [facility] Bilirubin, Urine Negative Negative LAB URINALYSIS - AUTOMATED METHOD 01/07/2025 3:49 PM EDT [facility] Urobilinogen, Urine 0.2 0.2 to 1.0 mg/dL LAB URINALYSIS - AUTOMATED METHOD 01/07/2025 3:49 PM EDT [facility] Leukocytes, Urine Negative Negative LAB URINALYSIS - AUTOMATED METHOD 01/07/2025 3:49 PM EDT [facility] Nitrite, Urine Negative Negative LAB URINALYSIS - AUTOMATED METHOD 01/07/2025 3:49 PM EDT [facility] Urine Urine specimen obtained by clean catch procedure / Unknown Non-blood Collection / Unknown 01/07/2025 3:18 PM EDT 01/07/2025 3:29 PM EDT us Nadja Payne MD LAB URINE ORDERABLES Final Result [facility] [address] [place] [address] * EKG now - STAT (adult) (01/07/2025 2:00 PM EDT) EKG DIAGNOSIS CLASS Abnormal MUSE ECG Ventricular Rate 92 BPM MUSE ECG Atrial Rate 92 BPM MUSE ECG MS Interval 200 ms MUSE ECG QRSD Interval 102 ms MUSE ECG QT Interval 350 ms MUSE ECG QTC Interval 432 ms MUSE ECG P Blakeslee 69 degrees MUSE ECG R Blakeslee 67 degrees MUSE ECG T Wave Blakeslee 266 degrees MUSE ECG Diagnosis Normal sinus rhythm MUSE ECG Diagnosis Low voltage chest leads MUSE ECG Diagnosis ST & T wave abnormality, consider inferior ischemia MUSE ECG Diagnosis Nonspecific intraventricular conduction delay MUSE ECG Diagnosis Abnormal ECG MUSE ECG Diagnosis MUSE ECG Diagnosis Confirmed by Vasu Holland ([id number]) on 01/08/2025 5:51:20 PM MUSE ECG 01/07/2025 2:00 PM EDT 01/08/2025 5:51 PM EDT us Nadja Payne MD ECG ORDERABLES Final Resu lt Performing Organization Address [facility] Co de Phone Number MUSE ECG * XR Chest 1 View (01/07/2025 1:59 PM EDT) Anatomical Region Laterality Modality Chest Digital Radiogra phy Impressions 01/07/2025 3:11 PM EDT Mild pulmonary vascular congestion without overt edema. CRITICAL RESULT: No. COMMUNICATION: Per this written report. Preliminary report signed by Hang Cedillo DO on 01/07/2025 2:16 PM By electronically signing this report, I, the attending physician, attest that I have personally reviewed the images/data for the above examination(s) and agree with the final edited report. Drafted by Hang Cedillo DO on 01/07/2025 2:14 PM Final report signed by Jose D Doyle MD on 01/07/2025 3:11 PM Narrative 01/07/2025 3:11 PM EDT CLINICAL INDICATION: sob TECHNIQUE: XR CHEST 1 VIEW COMPARISON: Chest radiograph 04/05/2014 FINDINGS: Enlarged cardiac silhouette which may be accentuated secondary to technique. Mediastinal contours are within normal limits. Left chest wall dual-lead pacemaker is noted. Mild pulmonary vascular congestion. No consolidation, definite pleural effusion or pneumothorax. No acute displaced fracture within the chest. Procedure Note Jose D Doyle MD - 01/07/2025 CLINICAL INDICATION: sob TECHNIQUE: XR CHEST 1 VIEW COMPARISON: Chest radiograph 04/05/2014 FINDINGS: Enlarged cardiac silhouette which may be accentuated secondary totechnique. Mediastinal contours are within normal limits. Left chest walldual-lead pacemaker is noted. Mild pulmonary vascular congestion. Noconsolidation, definite pleural effusion or pneumothorax. No acutedisplaced fracture within the chest. IMPRESSION: Mild pulmonary vascular congestion without overt edema. CRITICAL RESULT: No. COMMUNICATION: Per this written report. Preliminary report signed by Hang Cedillo DO on 01/07/2025 2:16 PM By electronically signing this report, I, the attending physician, heidi I have personally reviewed the images/data for the aboveexamination(s) and agree with the final edited report. Drafted by Hang Cedillo DO on 01/07/2025 2:14 PM Final report signed by Jose D Doyle MD on 01/07/2025 3:11 PM Nadja Payne MD IMG XR PROCEDURES Final Re sult * (ABNORMAL) Blood gas panel, venous (01/07/2025 1:50 PM EDT) pH, Venous 7.33 7.32 - 7.43 LAB HEMATOLOGY METHOD 01/07/2025 1:54 PM EDT [facility] pCO2, Venous 50 37 - 52 mmHg LAB HEMATOLOGY METHOD 01/07/2025 1:54 PM EDT [facility] pO2, Venous 40 25 - 40 mmHg LAB HEMATOLOGY METHOD 01/07/2025 1:54 PM EDT [facility] SO2, Measured, Venous 65 65 - 80 % LAB HEMATOLOGY METHOD 01/07/2025 1:54 PM EDT [facility] Base Excess, Venous 0.2 -2.0 - 3.0 mmol/L LAB HEMATOLOGY METHOD 01/07/2025 1:54 PM EDT [facility] Bicarbonate, Calculated, Venous 26 22 - 26 mmol/L LAB HEMATOLOGY METHOD 01/07/2025 1:54 PM EDT [facility] Hematocrit, Whole Blood 25.7(L) 34.0 - 45.0 % LAB HEMATOLOGY METHOD 01/07/2025 1:54 PM EDT [facility] Sodium, Whole Blood 136 136 - 145 mmol/L LAB HEMATOLOGY METHOD 01/07/2025 1:54 PM EDT [facility] Potassium, Whole Blood 3.7 3.6 - 4.9 mmol/L LAB HEMATOLOGY METHOD 01/07/2025 1:54 PM EDT [facility] Chloride, Whole Blood 98 97 - 107 mmol/L LAB HEMATOLOGY METHOD 01/07/2025 1:54 PM EDT [facility] Glucose, Whole Blood 147(H) 74 - 99 mg/dL LAB HEMATOLOGY METHOD 01/07/2025 1:54 PM EDT [facility] Lactate, Venous, Whole Blood 1.4 0.5 - 2.2 mmol/L LAB HEMATOLOGY METHOD 01/07/2025 1:54 PM EDT [facility] Ionized Calcium, Whole Blood 4.1(L) 4.6 - 5.1 mg/dL LAB HEMATOLOGY METHOD 01/07/2025 1:54 PM EDT [facility] Blood Venous blood specimen / Unknown Venipuncture / Unknown 01/07/2025 1:50 PM EDT 01/07/2025 1:52 PM EDT us Nadja Payne MD LAB BLOOD ORDERABLES Final Result [facility] [address] [place] [address] * (ABNORMAL) Troponin T, High Sensitivity, 2 Hour, Plasma (01/07/2025 1:50 PM EDT) Troponin T, High Sensitivity, 2 Hour 26(H) <14 ng/L 01/07/2025 2:26 PM EDT [facility] Troponin Delta 4 <10 ng/L 01/07/2025 2:26 PM EDT [facility] Troponin Delta Interpretation Not Significant 01/07/2025 2:26 PM EDT [facility] Comment:Not Significant. No acute change in troponin observed between the baseline and 2 hour samples. Blood Venous blood specimen / Unknown Venipuncture / Unknown 01/07/2025 1:50 PM EDT 01/07/2025 1:52 PM EDT Nadja Payne MD LAB BLOOD ORDERABLES Final Result [facility] [address] [place] [address] * Blood Culture (Aerobic/Anaerobet Set) (01/07/2025 11:43 AM EDT) Culture No growth at day 5 01/12/2025 1:01 PM EDT [facility] Blood Structure of left hand / Unknown Venipuncture / Unknown 01/07/2025 11:43 AM EDT 01/07/2025 12:10 PM EDT Narrative [facility] - 01/12/2025 1:01 PM EDT Low blood volume submitted, results may be compromised us Nadja Payne MD LAB MICROBIOLOGY - GENERAL ORDERABLES Final Result Performing Organization Address City/[facility]/ZIP Co de Phone Number [facility] [address] [place] [address] * ED HIV 1/2 Antibody/Antigen Screen w/Reflex to HIV 1/2 Differentiation (01/07/2025 11:31 AM EDT) HIV 1 & 2 Antibody/Antigen Screen Non Reactive Non Reactive 01/07/2025 12:34 PM EDT [facility] Comment:Screening for HIV 1 & 2 antibodies, and P24 antigen is NONREACTIVE. No confirmatory testing is required. Blood Venous blood specimen / Unknown Venipuncture / Unknown 01/07/2025 11:31 AM EDT 01/07/2025 11:53 AM EDT Nadja Payne MD LAB BLOOD ORDERABLES Final Result [facility] [address] [place] [address] * Hepatitis C Antibody - ED (01/07/2025 11:31 AM EDT) Hepatitis C Antibody Negative Negative 01/07/2025 12:34 PM EDT [facility] Blood Venous blood specimen / Unknown Venipuncture / Unknown 01/07/2025 11:31 AM EDT 01/07/2025 11:53 AM EDT Nadja Payne MD LAB BLOOD ORDERABLES Final Result Performing Organization Address [facility] Co de Phone Number [facility] [address] [place] [address] * Type and screen (01/07/2025 11:31 AM EDT) ABO/Rh O Negative 01/07/2025 11:14 AM EDT [facility] Antibody Screen Negative 01/07/2025 11:14 AM EDT [facility] Specimen Expiration 01/10/2025 23:59 01/07/2025 11:14 AM EDT [facility] Blood Venous blood specimen / Unknown Venipuncture / Unknown 01/07/2025 11:31 AM EDT 01/07/2025 11:36 AM EDT Nadja Payne MD LAB BLOOD BANK TEST ORDERA BLES Final Result Performing Organization Address City/[facility]/ZIP Co de Phone Number BLOOD BANK [address] [place] [address], * Blood Culture (Aerobic/Anaerobet Set) (01/07/2025 11:31 AM EDT) Culture No growth at day 5 01/12/2025 1:01 PM EDT [facility] Blood Structure of left hand / Unknown Venipuncture / Unknown 01/07/2025 11:31 AM EDT 01/07/2025 12:04 PM EDT Narrative [facility] - 01/12/2025 1:01 PM EDT Low blood volume submitted, results may be compromised Nadja Payne MD LAB MICROBIOLOGY - GENERAL ORDERABLES Final Result [facility] [address] [place] [address] * Free T4, Plasma (01/07/2025 11:31 AM EDT) Free T4, Plasma 1.6 0.8 - 1.7 ng/dL 01/07/2025 12:12 PM EDT [facility] Blood Venous blood specimen / Unknown Venipuncture / Unknown 01/07/2025 11:31 AM EDT 01/07/2025 11:37 AM EDT Nadja Payne MD LAB BLOOD ORDERABLES Final Result [facility] [address] [place] [address] * Thyroid Stimulating Hormone, Plasma (01/07/2025 11:31 AM EDT) Thyroid Stimulating Hormone, Plasma 2.22 0.40 - 4.20 uIU/mL 01/07/2025 12:12 PM EDT [facility] Blood Venous blood specimen / Unknown Venipuncture / Unknown 01/07/2025 11:31 AM EDT 01/07/2025 11:37 AM EDT Nadja Payne MD LAB BLOOD ORDERABLES Final Result [facility] [address] [place] [address] * BNP (01/07/2025 11:31 AM EDT) N-Terminal, PROBNP, Plasma 710 0 - 899 pg/mL 01/07/2025 12:12 PM EDT [facility] Blood Venous blood specimen / Unknown Venipuncture / Unknown 01/07/2025 11:31 AM EDT 01/07/2025 11:37 AM EDT Najda Payne MD LAB BLOOD ORDERABLES Final Result [facility] [address] [place] [address] * (ABNORMAL) Troponin now and 120 min (01/07/2025 11:31 AM EDT) Troponin T, High Sensitivity, 0 Hour 22(H) <14 ng/L 01/07/2025 12:12 PM EDT [facility] Blood Venous blood specimen / Unknown Venipuncture / Unknown 01/07/2025 11:31 AM EDT 01/07/2025 11:37 AM EDT Nadja Payne MD LAB BLOOD ORDERABLES Final Result Performing Organization Address City/[facility]/ZIP Co de Phone Number [facility] [address] [place] [address] * (ABNORMAL) CMP (01/07/2025 11:31 AM EDT) Glucose, Plasma 174(H) 74 - 99 mg/dL 01/07/2025 12:12 PM EDT [facility] BUN, Plasma 53(H) 7 - 21 mg/dL 01/07/2025 12:12 PM EDT [facility] Creatinine, Plasma 2.43(H) 0.60 - 1.10 mg/dL 01/07/2025 12:12 PM EDT [facility] BUN/Creatinine Ratio 22 01/07/2025 12:12 PM EDT [facility] Sodium, Plasma 136 136 - 145 mmol/L 01/07/2025 12:12 PM EDT [facility] Potassium, Plasma 4.5 3.6 - 4.9 mmol/L 01/07/2025 12:12 PM EDT [facility] Chloride, Plasma 95(L) 97 - 107 mmol/L 01/07/2025 12:12 PM EDT [facility] CO2, Plasma 24 22 - 29 mmol/L 01/07/2025 12:12 PM EDT [facility] Anion Gap 17(H) 6 - 16 mmol/L 01/07/2025 12:12 PM EDT [facility] Total Calcium, Plasma 8.1(L) 8.9 - 10.2 mg/dL 01/07/2025 12:12 PM EDT [facility] Total Protein 7.0 6.3 - 7.9 g/dL 01/07/2025 12:12 PM EDT [facility] Albumin, Plasma 3.5 3.5 - 5.2 g/dL 01/07/2025 12:12 PM EDT [facility] AST, Plasma 17 10 - 35 U/L 01/07/2025 12:12 PM EDT [facility] Comment:Hemolyzed, result ma y be falsely increased. ALT, Plasma 11 10 - 35 U/L 01/07/2025 12:12 PM EDT [facility] Alkaline Phosphatase, Plasma 89 46 - 142 U/L 01/07/2025 12:12 PM EDT [facility] Total Bilirubin, Plasma 0.3 0.2 - 1.1 mg/dL 01/07/2025 12:12 PM EDT [facility] eGFRcr 22.8 mL/min/1.7 3m*2 01/07/2025 12:12 PM EDT [facility] Comment:Reported eGFRcr in m L/min/1.73m2 is based the CKD-EPI 2020 equation that does not use a race coefficient. Blood Venous blood specimen / Unknown Venipuncture / Unknown 01/07/2025 11:31 AM EDT 01/07/2025 11:37 AM EDT us Nadja Payne MD LAB BLOOD ORDERABLES Final Result [facility] [address] [place] [address] * PT-INR (01/07/2025 11:31 AM EDT) Prothrombin Time 14.0 12.0 - 14.3 sec 01/07/2025 11:55 AM EDT [facility] INR 1.1 0.9 - 1.1 01/07/2025 11:55 AM EDT [facility] Blood Venous blood specimen / Unknown Venipuncture / Unknown 01/07/2025 11:31 AM EDT 01/07/2025 11:37 AM EDT Narrative [facility] - 01/07/2025 11:55 AM EDT OPTIMAL INR RANGES FOR PATIENT ON ORAL ANTICOAGULANT THERAPY Prevention of venous thromboembolism INR 2.0 to 3.0 In patients with heart disease: Atrial fibrillation INR 2.0 to 3.0 Valvular heart disease INR 2.0 to 3.0 Tissue heart valves INR 2.0 to 3.0 Mechanical prosthetic valves INR 2.5 to 3.5 Prevention of recurrent ID INR 2.5 to 3.5 us Nadja Payne MD LAB BLOOD ORDERABLES Final Result [facility] [address] [place] [address] * (ABNORMAL) CBC w/diff (01/07/2025 11:31 AM EDT) WBC Count 14.02(H) 3.70 - 10.30 10*3/uL LAB HEMATOLOGY METHOD 01/07/2025 11:39 AM EDT [facility] RBC Count 3.11(L) 3.90 - 5.20 10*6/uL LAB HEMATOLOGY METHOD 01/07/2025 11:39 AM EDT [facility] HGB 8.3(L) 11.2 - 15.7 g/dL LAB HEMATOLOGY METHOD 01/07/2025 11:39 AM EDT [facility] HCT 27.6(L) 34.0 - 45.0 % LAB HEMATOLOGY METHOD 01/07/2025 11:39 AM EDT [facility] Platelet Count 357 155 - 369 10*3/uL LAB HEMATOLOGY METHOD 01/07/2025 11:39 AM EDT [facility] MCV 89 79 - 98 fL LAB HEMATOLOGY METHOD 01/07/2025 11:39 AM EDT [facility] MCH 26.7 26.0 - 32.0 pg LAB HEMATOLOGY METHOD 01/07/2025 11:39 AM EDT [facility] MCHC 30.1(L) 30.7 - 35.5 g/dL LAB HEMATOLOGY METHOD 01/07/2025 11:39 AM EDT [facility] RDW 16.9(H) 11.5 - 14.5 % LAB HEMATOLOGY METHOD 01/07/2025 11:39 AM EDT [facility] MPV 10.1 8.8 - 12.5 fL LAB HEMATOLOGY METHOD 01/07/2025 11:39 AM EDT [facility] nRBC 0.0 <=0.0 per 100 WBCs LAB HEMATOLOGY METHOD 01/07/2025 11:39 AM EDT [facility] Differential Type Automated LAB HEMATOLOGY METHOD 01/07/2025 11:39 AM EDT [facility] Neutrophils % 72 % LAB HEMATOLOGY METHOD 01/07/2025 11:39 AM EDT [facility] Lymphocytes % 21 % LAB HEMATOLOGY METHOD 01/07/2025 11:39 AM EDT [facility] Monocytes % 5 % LAB HEMATOLOGY METHOD 01/07/2025 11:39 AM EDT [facility] Eosinophils % 1 % LAB HEMATOLOGY METHOD 01/07/2025 11:39 AM EDT [facility] Basophils % 0 % LAB HEMATOLOGY METHOD 01/07/2025 11:39 AM EDT [facility] Immature Granulocytes % 1 % LAB HEMATOLOGY METHOD 01/07/2025 11:39 AM EDT [facility] Neutrophils Absolute 10.05(H) 1.60 - 6.10 10*3/uL LAB HEMATOLOGY METHOD 01/07/2025 11:39 AM EDT [facility] Lymphocytes Absolute 2.99 1.20 - 3.90 10*3/uL LAB HEMATOLOGY METHOD 01/07/2025 11:39 AM EDT [facility] Monocytes Absolute 0.67 0.30 - 0.90 10*3/uL LAB HEMATOLOGY METHOD 01/07/2025 11:39 AM EDT [facility] Eosinophils Absolute 0.20 0.00 - 0.50 10*3/uL LAB HEMATOLOGY METHOD 01/07/2025 11:39 AM EDT [facility] Basophils Absolute 0.04 0.00 - 0.10 10*3/uL LAB HEMATOLOGY METHOD 01/07/2025 11:39 AM EDT [facility] Immature Granulocytes Absolute 0.07(H) 0.00 - 0.06 10*3/uL LAB HEMATOLOGY METHOD 01/07/2025 11:39 AM EDT [facility] Blood Venous blood specimen / Unknown Venipuncture / Unknown 01/07/2025 11:31 AM EDT 01/07/2025 11:37 AM EDT Narrative [facility] - 01/07/2025 11:39 AM EDT Therapeutic decision making should be based on absolute values, rather than percentages. us Nadja Payne MD LAB BLOOD ORDERABLES Final Result [facility] [address] [place] [address] * (ABNORMAL) POCT venous blood gas gem (01/07/2025 11:18 AM EDT) pH, Venous 7.31(L) 7.32 - 7.43 01/07/2025 11:19 AM EDT [facility] pCO2, Venous 54(H) 37 - 52 mm Hg 01/07/2025 11:19 AM EDT [facility] pO2, Venous 32 25 - 40 mm Hg 01/07/2025 11:19 AM EDT [facility] SO2, Venous 43(L) 65 - 80 % 01/07/2025 11:19 AM EDT [facility] Base Excess/Deficit, Venous 0.6 -2 - 3 mmol/L 01/07/2025 11:19 AM EDT [facility] HCO3, Venous 27.2(H) 22 - 26 mmol/L 01/07/2025 11:19 AM EDT [facility] Hemoglobin, Venous 8.2(L) 11.2 - 15.7 g/dL 01/07/2025 11:19 AM EDT [facility] Hematocrit, Venous 25.0(L) 34.0 - 45.0 % 01/07/2025 11:19 AM EDT [facility] Sodium, Venous 134(L) 136 - 145 mmol/L 01/07/2025 11:19 AM EDT [facility] Potassium, Venous 4.5 3.6 - 4.9 mmol/L 01/07/2025 11:19 AM EDT [facility] Comment:Hemolyzed, result ma y be falsely increased. POCT Chloride, Venous 98 97 - 107 mmol/L 01/07/2025 11:19 AM EDT [facility] Glucose, Venous 190(H) 74 - 99 mg/dL 01/07/2025 11:19 AM EDT [facility] Ionized Calcium, Venous 4.3(L) 4.6 - 5.1 mg/dL 01/07/2025 11:19 AM EDT [facility] Lactate, Venous 2.4(H) 0.5 - 2.2 mmol/L 01/07/2025 11:19 AM EDT [facility] Body Temperature 37.0 Celsius 01/07/2025 11:19 AM EDT [facility] pH, Temp Corrected, Venous 7.31(L) 7.32 - 7.43 01/07/2025 11:19 AM EDT [facility] pCO2, Temp Corrected, Venous 54(H) 37 - 52 mm Hg 01/07/2025 11:19 AM EDT [facility] pO2, Temp Corrected, Venous 32 25 - 40 mm Hg 01/07/2025 11:19 AM EDT [facility] Pt Skilled ID Paul Jansen 01/07/2025 11:19 AM EDT [facility] Blood, Venous Whole blood specimen / Unknown 01/07/2025 11:18 AM EDT 01/07/2025 11:19 AM EDT us Generic Provider Poct LAB POINT OF CARE TEST DOCKED DEVICE UNSOLICITED RESULTS Final Result Performing Organization Address City/State/[facility] Co de Phone Number [facility] [address] [place] [address] * EKG now - STAT (adult) (01/07/2025 11:12 AM EDT) EKG DIAGNOSIS CLASS Abnormal MUSE ECG Ventricular Rate 101 BPM MUSE ECG Atrial Rate 101 BPM MUSE ECG MS Interval 190 ms MUSE ECG QRSD Interval 116 ms MUSE ECG QT Interval 358 ms MUSE ECG QTC Interval 464 ms MUSE ECG P Blakeslee 46 degrees MUSE ECG R Blakeslee 68 degrees MUSE ECG T Wave Blakeslee -67 degrees MUSE ECG Diagnosis Sinus tachycardia with premature atrial complexes with aberrant conduction MUSE ECG Diagnosis Nonspecific intraventricular conduction delay MUSE ECG Diagnosis T wave abnormality, consider inferolateral ischemia MUSE ECG Diagnosis Abnormal ECG MUSE ECG Diagnosis MUSE ECG Diagnosis Confirmed by Vasu Holland ([id number]) on 01/08/2025 3:46:58 PM MUSE ECG 01/07/2025 11:1 2 AM EDT 01/08/2025 3:46 PM EDT us Nadja Payne MD ECG ORDERABLES Final Resu lt MUSE ECG * Critical Care (01/07/2025 11:00 AM EDT) Narrative Nadja Payne MD - 01/07/2025 11:00 AM EDT Nadja Payne MD 01/09/2025 2:38 PM Critical Care Performed by: Nadja Payne MD Authorized by: Ivis Juárez MD us Ivis Juárez MD IN CLINIC/BEDSIDE ORDERABLES F inal Result * MS CRITICAL CARE, E/M 30-74 MINUTES (01/07/2025 11:00 AM EDT) Narrative Nadja Payne MD - 01/07/2025 11:00 AM EDT Nadja Payne MD 01/09/2025 2:38 PM Critical Care Performed by: Nadja Payne MD Authorized by: Nadja Payne MD Critical care provider statement: Critical care time (minutes): 40 Critical care time was exclusive of: Separately billable procedures and treating other patients and teaching time Critical care was time spent personally by me on the following activities: Development of treatment plan with patient or surrogate, discussions with consultants, discussions with primary provider, evaluation of patient's response to treatment, examination of patient, obtaining history from patient or surrogate, ventilator management, review of old charts, ordering and review of radiographic studies, ordering and review of laboratory studies and ordering and performing treatments and interventions (Management of noninvasive positive pressure ventilation. Titration of vasoactive medicines.) I assumed subsequent critical care for this patient from a provider in my division, on the same day: no Critical care statement: I saw and evaluated the patient with the resident/ fellow. I discussed the case with the resident/ fellow and agree with the findings and plan as documented. us Nadja Payne MD IN CLINIC/BEDSIDE ORDERABL ES Edited Result - Final documented in this encounter Visit Diagnoses Diagnosis Shock ([facility])- Primary Unspecified shock Shock ([facility]) Unspecified shock GWEN (acute kidney injury) ([facility]) Chronic heart failure with preserved ejection fraction ([facility]) Abnormal uterine and vaginal bleeding, unspecified Morbid obesity with body mass index (BMI) of 40.0 or higher ([facility]) [E66.01]; Class III obesity with body mass index (BMI) of 40.0 or higher ([facility]) Class III obesity with body mass index (BMI) of 40.0 or higher ([facility]) Abnormal uterine and vaginal bleeding, unspecified documented in this encounter Admitting Diagnoses Diagnosis Shock ([facility]) Unspecified shock Abnormal uterine and vaginal bleeding, unspecified documented in this encounter Administered Medications Inactive Administered Medications - up to 3 most recent administrations Medication Order MAR Action Action Date Dose Rate Site acetaminophen (Tylenol) tablet 650 mg 650 mg, Oral, Every 4 hours PRN, Starting on 01/08/25 at 1122, Until 01/14/25 at 1850, Routine, fever, mild pain, moderate pain, headaches, for temperature > 38.5 Given 01/13/2025 6:43 PM EDT 650 mg Given 01/13/2025 2:48 PM EDT 650 mg Given 01/13/2025 9:48 AM EDT 650 mg albuterol 108 (90 Base) MCG/ACT inhaler 2 puff 2 puff, Inhalation, Every 6 hours PRN, Starting on Guillermina 01/12/25 at 0643, Until 01/14/25 at 1850, Routine, shortness of breath, wheezing buPROPion SR (Wellbutrin SR) 12 hr tablet 200 mg 200 mg, Oral, 2 times daily, First dose on 01/09/25 at 1445, Until Discontinued, Routine Given 01/14/2025 8:57 AM EDT 200 mg Given 01/13/2025 8:51 PM EDT 200 mg Given 01/13/2025 11:30 AM EDT 200 mg dextrose 10 % (D10W) bolus 125 mL 125 mL, Intravenous, Every 15 min PRN, Starting on Guillermina 01/12/25 at 1615, Until 01/14/25 at 1850, Administer over 15 Minutes, Routine, low blood sugar BG 51-89 mg/dL dextrose 10 % (D10W) bolus 250 mL 250 mL, Intravenous, Every 15 min PRN, Starting on Guillermina 01/12/25 at 1615, Until 01/14/25 at 1850, Administer over 15 Minutes, Routine, PRN low blood sugar BG =/<50 mg/dL diclofenac (Voltaren) 1 % topical gel 2 g 2 g, Topical, 4 times daily PRN, Starting on Guillermina 01/12/25 at 0629, Until 01/14/25 at 1850, Routine, Arm pain Given 01/13/2025 11:32 AM EDT 2 g Given 01/12/2025 9:17 PM EDT 2 g fentaNYL (Sublimaze) injection 50 mcg 50 mcg, Intravenous, Every 5 min PRN, 2 doses, Starting on Thu01/13/25 at 0911, Until Thu01/13/25 at 1000, Routine, Recovery (Phase I only), pain score of 5-8 out of 10 Given 01/13/2025 10:00 AM EDT 50 mcg Given 01/13/2025 9:48 AM EDT 50 mcg glucagon (human recombinant) injection 1 mg 1 mg, Intramuscular, Every 15 min PRN, Starting on Guillermina 01/12/25 at 1615, Until 01/14/25 at 1850, Routine, low blood sugar per Hypoglycemia Prevention and Treatment protocol glucose (Glutose) 40 % oral gel 15-30 grams of glucose 15-30 grams of glucose, Sublingual, Every 15 min PRN, Starting on Guillermina 01/12/25 at 1615, Until 01/14/25 at 1850, Routine, low blood sugar, per Hypoglycemia Prevention and Treatment protocol HYDROmorphone (Dilaudid) 1 MG/ML injection - Pyxis Override Pull 1 dose, Starting on 01/08/25 at 1308, Until 01/08/25 at 1456 HYDROmorphone (Dilaudid) injection 0.25 mg 0.25 mg, Intravenous, Once, 1 dose, On 01/08/25 at 1415, Routine Given 01/08/2025 2:56 PM EDT 0.25 mg insulin lispro (Admelog) 100 units/mL injection - Correction - Standard Dose 0-5 Units, Subcutaneous, 3 times daily with meals, First dose on Thu01/11/25 at 0930, Until Discontinued, Routine Given 01/14/2025 12:01 PM EDT 2 Units Left Upper Arm (Back ) Given 01/14/2025 8:57 AM EDT 1 Units Ri ght Upper Arm (Back) Given 01/13/2025 6:42 PM EDT 5 Units Ri ght Upper Arm (Back) insulin lispro (Admelog) injection - Correction - Nighttime Dose 0-3 Units, Subcutaneous, 2 times nightly (2100 & 0300), First dose on Thu01/11/25 at 2100, Until Discontinued, Routine Given 01/13/2025 8:50 PM EDT 2 Units Right Upper Arm (Rfankie k) insulin regular (HumuLIN R,NovoLIN R) 100 units/mL injection - Correction - Standard Dose 0-5 Units, Subcutaneous, Every 6 hours scheduled, First dose on Thu01/07/25 at 1800, Until Discontinued, Routine Given 01/11/2025 1:15 AM EDT 1 Units Right Upper Arm (Frankie k) Given 01/10/2025 6:01 PM EDT 3 Units Ri ght Lower Abdomen Given 01/10/2025 11:51 AM EDT 3 Units L eft Lower Abdomen ipratropium-albuterol (Duo-Neb) 0.5-2.5 mg/3 mL nebulizer solution 6 mL 6 mL, Nebulization, Once, 1 dose, On 01/07/25 at 1125, STAT Given 01/07/2025 11:27 AM EDT 6 mL lactated Ringer's bolus 500 mL 500 mL, Intravenous, Once, 1 dose, On 01/07/25 at 1705, Administer over 2 Hours, Routine New Bag 01/07/2025 6:37 PM EDT 500 mL 250 mL/hr lactated Ringer's infusion 500 mL 500 mL, Intravenous, Once, 1 dose, On 01/07/25 at 1120, STAT New Bag 01/07/2025 11:51 AM EDT 500 mL lactated Ringer's infusion 500 mL 500 mL, Intravenous, Once, 1 dose, On 01/07/25 at 1230, STAT New Bag 01/07/2025 1:10 PM EDT 500 mL levothyroxine (Synthroid, Levoxyl) tablet 300 mcg 300 mcg, Oral, Every morning, First dose on Thu01/09/25 at 0600, Until Discontinued, Routine Given 01/14/2025 6:24 AM EDT 300 mcg Given 01/13/2025 11:29 AM EDT 300 mcg Given 01/12/2025 3:44 AM EDT 300 mcg lidocaine (Xylocaine) 1 % injection 25 mL 25 mL, Infiltration, Once, 1 dose, On 01/07/25 at 2115, Routine Given 01/07/2025 8:31 PM EDT 25 mL magnesium sulfate IVPB 2 g 2 g, Intravenous, Once, 1 dose, On Thu01/08/25 at 0230, at 25 mL/hr, Administer over 2 Hours, Routine New Bag 01/08/2025 1:52 AM EDT 2 g 25 mL/hr magnesium sulfate IVPB 2 g 2 g, Intravenous, Once, 1 dose, On Thu01/08/25 at 1730, Routine New Bag 01/08/2025 4:49 PM EDT 2 g 25 mL/hr medroxyPROGESTERone (Provera) tablet 20 mg 20 mg, Oral, 2 times daily, First dose on Thu01/08/25 at 2100, Until Discontinued, Routine Given 01/10/2025 8:03 AM EDT 20 mg Given 01/09/2025 8:47 PM EDT 20 mg Given 01/09/2025 8:23 AM EDT 20 mg medroxyPROGESTERone (Provera) tablet 20 mg 20 mg, Oral, Once, 1 dose, On Thu01/10/25 at 2100, Routine Given 01/10/2025 9:52 PM EDT 20 mg megestrol (Megace) tablet 40 mg 40 mg, Oral, Daily, Hazardous Drug-Tier 1 Precautions. Dispose in BLACK Hazardous Waste Container. Chemotherapy: refer to [id number]., First dose on Thu01/11/25 at 0900, Tablets are not to be used for the indication of appetite stimulation. For appetite stimulation, please use the suspension. Given 01/13/2025 11:30 AM EDT 40 mg Given 01/12/2025 10:14 AM EDT 40 mg Given 01/11/2025 8:18 AM EDT 40 mg metFORMIN (Glucophage) tablet 500 mg 500 mg, Oral, 2 times daily with meals, First dose on Thu01/11/25 at 0945, Until Discontinued, Routine Given 01/14/2025 8:57 AM EDT 500 mg Given 01/13/2025 6:43 PM EDT 500 mg Given 01/13/2025 11:28 AM EDT 500 mg miconazole (Micotin) 2 % powder 1 Application Topical, 2 times daily, 28 doses, First dose on Thu01/10/25 at 1300, Last dose on Thu01/23/25 at 2100, Routine Given 01/14/2025 8:57 AM EDT 1 Application Given 01/13/2025 8:51 PM EDT 1 Application Given 01/13/2025 11:32 AM EDT 1 Application midodrine (Proamatine) tablet 10 mg 10 mg, Oral, 3 times daily, First dose on Thu01/08/25 at 1515, Until Discontinued, Routine Given 01/14/2025 8:57 AM EDT 10 mg Given 01/13/2025 8:51 PM EDT 10 mg Given 01/13/2025 2:50 PM EDT 10 mg mometasone-formoterol (Dulera 200) 200-5 MCG/ACT inhaler 2 puff 2 puff, Inhalation, 2 times daily, First dose on Thu01/11/25 at 1115, Until Discontinued, Routine Given 01/14/2025 8:59 AM EDT 2 puffs Given 01/13/2025 8:50 PM EDT 2 puffs Given 01/13/2025 11:32 AM EDT 2 puffs mupirocin (Bactroban) 2 % ointment 1 Application Each Nostril, 2 times daily, 10 doses, First dose on Thu01/07/25 at 2100, Last dose on Thu01/12/25 at 0900, Routine Given 01/12/2025 10:14 AM EDT 1 Application Given 01/11/2025 8:06 PM EDT 1 Application Given 01/11/2025 8:19 AM EDT 1 Application norepinephrine 8 mg/250 mL (0.032 mg/mL) infusion 0-0.4 mcg/kg/min 194 kg (0-145.5 mL/hr), 0.032 mg/mL, Intravenous, Titrated, Starting on 01/07/25 at 1125, Until Thu01/08/25 at 1129, STAT Rate/Dose Change 01/08/2025 10:30 AM EDT 0.02 mcg/kg/min 7.28 mL/hr Rate/Dose Change 01/08/2025 9:45 AM EDT 0.04 mcg/kg/min 14 .55 mL/hr Rate/Dose Change 01/08/2025 9:30 AM EDT 0.06 mcg/kg/min 21 .8 mL/hr norepinephrine 8 mg/250 mL (0.032 mg/mL) infusion 0-0.4 mcg/kg/min 194 kg (0-145.5 mL/hr), 0.032 mg/mL, Intravenous, Titrated, Starting on Thu01/08/25 at 1545, Until Thu01/09/25 at 0916, STAT Rate/Dose Verify 01/08/2025 6:00 PM EDT 0.02 mcg/kg/min 7.28 mL/hr Rate/Dose Verify 01/08/2025 5:00 PM EDT 0.02 mcg/kg/min 7. 28 mL/hr New Bag 01/08/2025 4:07 PM EDT 0.02 mcg/kg/min 7.28 mL/ hr oxyCODONE (Roxicodone) immediate release tablet 10 mg 10 mg, Oral, Once as needed, 2 doses, Starting on Thu01/13/25 at 0911, Until Thu01/13/25 at 1028, Routine, Recovery (Phase I only), pain score of 6-8 out of 10 Given 01/13/2025 9:48 AM EDT 10 mg oxyCODONE (Roxicodone) immediate release tablet 5 mg 5 mg, Oral, Once, 1 dose, On Thu01/08/25 at 0215, Routine Given 01/08/2025 1:44 AM EDT 5 mg perflutren lipid microspheres (Definity) injection 13.04 mg 13.04 mg (rounded from 12.7792 mg = 10 mcL/kg 196 kg), Intravenous, Once in imaging, 1 dose, Starting on Thu01/11/25 at 1149, Until Thu01/11/25 at 1126, Routine Given 01/11/2025 11:26 AM EDT 13.04 mg phosphorus (K Phos Neutral) tablet 1 tablet 1 tablet, Oral, Every 12 hours, 2 doses, First dose on Thu01/08/25 at 0230, Last dose on Thu01/08/25 at 1430, Routine Given 01/08/2025 2:56 PM EDT 1 table t Given 01/08/2025 1:52 AM EDT 1 tablet piperacillin-tazobactam (Zosyn) 4.5 g in sodium chloride 0.9% 100 mL IVPB (vial adapter required) 4.5 g, Intravenous, Once, 1 dose, On 01/07/25 at 1210, STAT New Bag 01/07/2025 2:20 PM EDT 4.5 g 220 m L/hr Povidone-Iodine 5 % swab solution Apply externally, Once, 1 dose, On Thu01/13/25 at 0715, Routine Given 01/13/2025 6:58 AM EDT rOPINIRole (Requip) tablet 4 mg 4 mg, Oral, Nightly, First dose on 01/07/25 at 2115, Until Discontinued, Routine Given 01/07/2025 8:30 PM EDT 4 mg rOPINIRole (Requip) tablet 4 mg 4 mg, Oral, Daily, First dose (after last modification) on 01/08/25 at 1115, Until Discontinued, RoutineIndications:Restless Leg Syndrome Given 01/14/2025 8:57 AM EDT 4 mg Given 01/13/2025 11:29 AM EDT 4 mg Given 01/12/2025 10:14 AM EDT 4 mg sodium chloride 0.9 % flush 3 mL 3 mL, Intravenous, As needed, Starting on 01/07/25 at 1657, Until 01/14/25 at 1850, Routine, line care, 3 mL flush for PERIPHERAL IV CARE ONLY. Given 01/11/2025 8:07 PM EDT 13 mL Tiotropium [place] Monohydrate (Spiriva Respimat) 2.5 MCG/ACT inhaler 2 puff 2 puff, Inhalation, Daily, First dose on Thu01/11/25 at 1115, Until Discontinued, Routine Given 01/14/2025 8:59 AM EDT 2 puffs Given 01/13/2025 11:32 AM EDT 2 puffs Given 01/12/2025 10:15 AM EDT 2 puffs torsemide (Demadex) tablet 40 mg 40 mg, Oral, Daily, First dose (after last modification) on Thu01/11/25 at 0945, Until Discontinued, Routine Given 01/14/2025 8:59 AM EDT 40 mg Given 01/13/2025 11:30 AM EDT 40 mg Given 01/12/2025 10:14 AM EDT 40 mg traZODone (Desyrel) tablet 100 mg 100 mg, Oral, Nightly, First dose on Thu01/13/25 at 2100, Until Discontinued, Routine Given 01/13/2025 8:51 PM EDT 100 mg vancomycin (Vancocin) 3,000 mg in sodium chloride 0.9 % 500 mL IVPB 3,000 mg, Intravenous, Once, 1 dose, On 01/07/25 at 1210, at 191.7 mL/hr, STAT Restarted 01/07/2025 6:16 PM EDT 191.7 mL/h r New Bag 01/07/2025 3:02 PM EDT 3,000 mg 191.7 mL/hr documented in this encounter Active and Recently Administered Medications Times are shown in EDT. Scheduled Medication Order 01/12/2025 01/13/2025 01/14/2025 buPROPion SR (Wellbutrin SR) 12 hr tablet 200 mg 200 mg, Oral, 2 times daily, First dose on Thu01/09/25 at 1445, Until Discontinued, Routine 1015 (Given - Provider: Aleida Hobson RN)2112 (Given - Provider: Lexi Burnham RN) 0612 (SEP Hold - Provider: Automatic Transfer Provider - Reason: Patient in procedure)0900 (Dose Auto Held - Provider: Automatic Transfer Provider)1059 (MAR Unhold - Provider: Automatic Transfer Provider)1130 (Given - Provider: Aleida Hobson RN - Comment: pt AM meds held for procedure - administering now that pt is back on floor per MD order and MD approved)2050 (Given - Provider: Melissa Saldana RN) 0857 (Given - Provider: Soraida Ralph RN) insulin lispro (Admelog) 100 units/mL injection - Correction - Standard Dose 0-5 Units, Subcutaneous, 3 times daily with meals, First dose on Thu01/11/25 at 0930, Until Discontinued, Routine 1015 (Not Given - Provider: Aleida Hobson RN - Reason: Hold for condition: must add comment - Comment: 116)1319 (Given - Provider: Aleida Hobson RN)1833 (Given - Provider: Aleida Hobson RN) 0612 (SEP Hold - Provider: Automatic Transfer Provider - Reason: Patient in procedure)0830 (Dose Auto Held - Provider: Automatic Transfer Provider)1059 (SEP Unhold - Provider: Automatic Transfer Provider)1248 (Given - Provider: Aleida Hobson RN)1842 (Given - Provider: Aleida Hobson RN) 0857 (Given - Provider: Soraida Ralph RN)1201 (Given - Provider: Soraida Ralph RN)1730 (Canceled Entry - Provider: Automatic Discharge Provider - Comment: Automatically canceled at discontinue of medication order) insulin lispro (Admelog) injection - Correction - Nighttime Dose 0-3 Units, Subcutaneous, 2 times nightly (2100 & 0300), First dose on Thu01/11/25 at 2100, Until Discontinued, Routine 0220 (Canceled Entry - Provider: Rosa Roy RN)2110 (Not Given - Provider: Lexi Burnham RN - Reason: Order parameters not met) 0243 (Not Given - Provider: Lexi Burnham RN - Reason: Order parameters not met)0612 (SEP Hold - Provider: Automatic Transfer Provider - Reason: Patient in procedure)1059 (SEP Unhold - Provider: Automatic Transfer Provider)2050 (Given - Provider: Melissa Saldana RN) 0603 (Not Given - Provider: Melissa Saldana RN - Reason: Patient/family refused) levothyroxine (Synthroid, Levoxyl) tablet 300 mcg 300 mcg, Oral, Every morning, First dose on Thu01/09/25 at 0600, Until Discontinued, Routine 0344 (Given - Provider: Rosa Roy RN)0600 (Canceled Entry - Provider: Rosa Roy RN) 0556 (Not Given - Provider: Lexi Burnham RN - Reason: NPO)0612 (SEP Hold - Provider: Automatic Transfer Provider - Reason: Patient in procedure)1059 (SEP Unhold - Provider: Automatic Transfer Provider)1129 (Given - Provider: Aleida Hobson RN - Comment: pt AM meds held for procedure - administering now that pt is back on floor per MD order and MD approved) 0624 (Given - Provider: Melissa Saldana RN) megestrol (Megace) tablet 40 mg (CANCELED) 40 mg, Oral, Daily, Hazardous Drug-Tier 1 Precautions. Dispose in BLACK Hazardous Waste Container. Chemotherapy: refer to A14-065., First dose on Thu01/11/25 at 0900, Tablets are not to be used for the indication of appetite stimulation. For appetite stimulation, please use the suspension. 1014 (Given - Provider: Aleida Hobson RN) 0612 (SEP Hold - Provider: Automatic Transfer Provider - Reason: Patient in procedure)0900 (Dose Auto Held - Provider: Automatic Transfer Provider)1059 (SEP Unhold - Provider: Automatic Transfer Provider)1130 (Given - Provider: Aleida Hobson RN - Comment: pt AM meds held for procedure - administering now that pt is back on floor per MD order and MD approved) metFORMIN (Glucophage) tablet 500 mg 500 mg, Oral, 2 times daily with meals, First dose on Thu01/11/25 at 0945, Until Discontinued, Routine 1014 (Given - Provider: Aleida Hobson RN)1834 (Given - Provider: Aleida Hobson RN) 0612 (SEP Hold - Provider: Automatic Transfer Provider - Reason: Patient in procedure)0830 (Dose Auto Held - Provider: Automatic Transfer Provider)1059 (SEP Unhold - Provider: Automatic Transfer Provider)1128 (Given - Provider: Aleida Hobson RN - Comment: pt AM meds held for procedure - administering now that pt is back on floor per MD order and MD approved)1843 (Given - Provider: Aleida Hobson RN) 0857 (Given - Provider: Soraida Ralph RN)1730 (Canceled Entry - Provider: Automatic Discharge Provider - Comment: Automatically canceled at discontinue of medication order) miconazole (Micotin) 2 % powder 1 Application Topical, 2 times daily, 28 doses, First dose on Thu01/10/25 at 1300, Last dose on Thu01/23/25 at 2100, Routine 1015 (Given - Provider: Aleida Hobson RN)2110 (Given - Provider: Lexi Burnham RN) 0612 (SEP Hold - Provider: Automatic Transfer Provider - Reason: Patient in procedure)0900 (Dose Auto Held - Provider: Automatic Transfer Provider)1059 (SEP Unhold - Provider: Automatic Transfer Provider)1132 (Given - Provider: Aleida Hobson RN)205 (Given - Provider: Melissa Saldana RN) 0857 (Given - Provider: Soraida Ralph RN) midodrine (Proamatine) tablet 10 mg 10 mg, Oral, 3 times daily, First dose on Thu01/08/25 at 1515, Until Discontinued, Routine 1014 (Given - Provider: Aleida Hobson RN)1539 (Given - Provider: Aleida Hobson RN)2110 (Given - Provider: Lexi Burnham RN) 0612 (SEP Hold - Provider: Automatic Transfer Provider - Reason: Patient in procedure)0900 (Dose Auto Held - Provider: Automatic Transfer Provider)1059 (SEP Unhold - Provider: Automatic Transfer Provider)1129 (Given - Provider: Aleida Hobson RN - Comment: pt AM meds held for procedure - administering now that pt is back on floor per MD order and MD approved)1450 (Given - Provider: Aleida Hobson RN)205 (Given - Provider: Melissa Saldana RN) 0857 (Given - Provider: Soraida Ralph RN)1600 (Canceled Entry - Provider: Automatic Discharge Provider - Comment: Automatically canceled at discontinue of medication order) mometasone-formoterol (Dulera 200) 200-5 MCG/ACT inhaler 2 puff(Linked Group 1) 2 puff, Inhalation, 2 times daily, First dose on Thu01/11/25 at 1115, Until Discontinued, Routine 1015 (Given - Provider: Aleida Hobson RN)2110 (Given - Provider: Lexi Burnham RN) 0612 (SEP Hold - Provider: Automatic Transfer Provider - Reason: Patient in procedure)0900 (Dose Auto Held - Provider: Automatic Transfer Provider)1059 (SEP Unhold - Provider: Automatic Transfer Provider)1132 (Given - Provider: Aleida Hobson RN)2049 (Given - Provider: Melissa Saldana RN) 0859 (Given - Provider: Soraida Ralph RN) mupirocin (Bactroban) 2 % ointment 1 Application (COMPLETED) Each Nostril, 2 times daily, 10 doses, First dose on 01/07/25 at 2100, Last dose on Guillermina 01/12/25 at 0900, Routine 1014 (Given - Provider: Aleida Hobson RN) Povidone-Iodine 5 % swab solution (COMPLETED) Apply externally, Once, 1 dose, On Thu01/13/25 at 0715, Routine 0658 (Given - Provider: Tawana Sanon RN) rOPINIRole (Requip) tablet 4 mg 4 mg, Oral, Daily, First dose (after last modification) on Thu01/08/25 at 1115, Until Discontinued, Routine 1014 (Given - Provider: Aleida Hobson RN) 0612 (SEP Hold - Provider: Automatic Transfer Provider - Reason: Patient in procedure)0900 (Dose Auto Held - Provider: Automatic Transfer Provider)1059 (SEP Unhold - Provider: Automatic Transfer Provider)1129 (Given - Provider: Aleida Hobson RN - Comment: pt AM meds held for procedure - administering now that pt is back on floor per MD order and MD approved) 0857 (Given - Provider: Soraida Ralph RN) Tiotropium [place] Monohydrate (Spiriva Respimat) 2.5 MCG/ACT inhaler 2 puff(Linked Group 1) 2 puff, Inhalation, Daily, First dose on Thu01/11/25 at 1115, Until Discontinued, Routine 1015 (Given - Provider: Aleida Hobson RN) 0612 (SEP Hold - Provider: Automatic Transfer Provider - Reason: Patient in procedure)0900 (Dose Auto Held - Provider: Automatic Transfer Provider)1059 (SEP Unhold - Provider: Automatic Transfer Provider)1132 (Given - Provider: Aleida Hobson RN) 0859 (Given - Provider: Soriada Ralph RN) torsemide (Demadex) tablet 40 mg 40 mg, Oral, Daily, First dose (after last modification) on Thu01/11/25 at 0945, Until Discontinued, Routine 1014 (Given - Provider: Aleida Hobson RN) 0612 (SEP Hold - Provider: Automatic Transfer Provider - Reason: Patient in procedure)0900 (Dose Auto Held - Provider: Automatic Transfer Provider)1059 (SEP Unhold - Provider: Automatic Transfer Provider)1130 (Given - Provider: Aleida Hobson RN - Comment: pt AM meds held for procedure - administering now that pt is back on floor per MD order and MD approved) 0859 (Given - Provider: Soraida Ralph RN) traZODone (Desyrel) tablet 100 mg 100 mg, Oral, Nightly, First dose on Thu01/13/25 at 2100, Until Discontinued, Routine 2050 (Given - Provider: Melissa Saldana RN) PRN Medication Order 01/12/2025 01/13/2025 01/14/2025 acetaminophen (Tylenol) tablet 650 mg 650 mg, Oral, Every 4 hours PRN, Starting on 01/08/25 at 1122, Until 01/14/25 at 1850, Routine, fever, mild pain, moderate pain, headaches, for temperature > 38.5 0344 (Given - Provider: Rosa Roy RN)1014 (Given - Provider: Aleida Hobson RN)1539 (Given - Provider: Aleida Hobson RN)2109 (Given - Provider: Lexi Burnham RN) 0612 (SEP Hold - Provider: Automatic Transfer Provider - Reason: Patient in procedure)0915 (SEP Unhold - Provider: Daija Valentine RN)0948 (Given - Provider: Daija Valentine RN)1448 (Given - Provider: Aelida Hobson RN)1843 (Given - Provider: Aleida Hobson RN) albuterol 108 (90 Base) MCG/ACT inhaler 2 puff 2 puff, Inhalation, Every 6 hours PRN, Starting on Guillermina 01/12/25 at 0643, Until 01/14/25 at 1850, Routine, shortness of breath, wheezing 0612 ([facility] Hold - Provider: Automatic Transfer Provider - Reason: Patient in procedure)1059 ([facility] Unhold - Provider: Automatic Transfer Provider) dextrose 10 % (D10W) bolus 125 mL(Linked Group 2) 125 mL, Intravenous, Every 15 min PRN, Starting on Guillermina 01/12/25 at 1615, Until 01/14/25 at 1850, Administer over 15 Minutes, Routine, low blood sugar BG 51-89 mg/dL 0612 ([facility] Hold - Provider: Automatic Transfer Provider - Reason: Patient in procedure)1059 ([facility] Unhold - Provider: Automatic Transfer Provider) dextrose 10 % (D10W) bolus 250 mL(Linked Group 2) 250 mL, Intravenous, Every 15 min PRN, Starting on Guillermina 01/12/25 at 1615, Until 01/14/25 at 1850, Administer over 15 Minutes, Routine, PRN low blood sugar BG =/<50 mg/dL 0612 ([facility] Hold - Provider: Automatic Transfer Provider - Reason: Patient in procedure)1059 ([facility] Unhold - Provider: Automatic Transfer Provider) diclofenac (Voltaren) 1 % topical gel 2 g 2 g, Topical, 4 times daily PRN, Starting on Guillermina 01/12/25 at 0629, Until 01/14/25 at 1850, Routine, Arm pain 2117 (Given - Provider: Lexi Burnham RN) 0612 ([facility] Hold - Provider: Automatic Transfer Provider - Reason: Patient in procedure)1059 ([facility] Unhold - Provider: Automatic Transfer Provider)1132 (Given - Provider: Aleida Hobson RN) fentaNYL (Sublimaze) injection 50 mcg (COMPLETED) 50 mcg, Intravenous, Every 5 min PRN, 2 doses, Starting on Thu01/13/25 at 0911, Until Thu01/13/25 at 1000, Routine, Recovery (Phase I only), pain score of 5-8 out of 10 0948 (Given - Provider: Daija Valentine, LOS)1000 (Given - Provider: Daija Valentine RN) glucagon (human recombinant) injection 1 mg(Linked Group 2) 1 mg, Intramuscular, Every 15 min PRN, Starting on Guillermina 01/12/25 at 1615, Until 01/14/25 at 1850, Routine, low blood sugar per Hypoglycemia Prevention and Treatment protocol 611 ([facility] Hold - Provider: Automatic Transfer Provider - Reason: Patient in procedure)105 ([facility] Unhold - Provider: Automatic Transfer Provider) glucose (Glutose) 40 % oral gel 15-30 grams of glucose(Linked Group 2) 15-30 grams of glucose, Sublingual, Every 15 min PRN, Starting on Guillermina 01/12/25 at 1615, Until 01/14/25 at 1850, Routine, low blood sugar, per Hypoglycemia Prevention and Treatment protocol 12 ([facility] Hold - Provider: Automatic Transfer Provider - Reason: Patient in procedure)105 ([facility] Unhold - Provider: Automatic Transfer Provider) oxyCODONE (Roxicodone) immediate release tablet 10 mg (CANCELED)(Linked Group 3) 10 mg, Oral, Once as needed, 2 doses, Starting on Thu01/13/25 at 0911, Until Thu01/13/25 at 1028, Routine, Recovery (Phase I only), pain score of 6-8 out of 10 0948 (Given - Provider: Daija Valentine RN) sodium chloride 0.9 % flush 3 mL(Linked Group 4) 3 mL, Intravenous, As needed, Starting on 01/07/25 at 1657, Until 01/14/25 at 1850, Routine, line care, 3 mL flush for PERIPHERAL IV CARE ONLY. 611 ([facility] Hold - Provider: Automatic Transfer Provider - Reason: Patient in procedure)105 ([facility] Unhold - Provider: Automatic Transfer Provider) Linked Groups Order Group 1: Tiotropium [place] Monohydrate (Spiriva Respimat) 2.5 MCG/ACT inhaler 2 puffJump to med 2 puff, Inhalation, Daily, First dose on Thu01/11/25 at 1115, Until Discontinued, Routine And mometasone-formoterol (Dulera 200) 200-5 MCG/ACT inhaler 2 puffJump to med 2 puff, Inhalation, 2 times daily, First dose on Thu01/11/25 at 1115, Until Discontinued, Routine Group 2: glucose (Glutose) 40 % oral gel 15-30 grams of glucoseJump to med 15-30 grams of glucose, Sublingual, Every 15 min PRN, Starting on Guillermina 01/12/25 at 1615, Until 01/14/25 at 1850, Routine, low blood sugar, per Hypoglycemia Prevention and Treatment protocol Or dextrose 10 % (D10W) bolus 125 mLJump to med 125 mL, Intravenous, Every 15 min PRN, Starting on Guillermina 01/12/25 at 1615, Until 01/14/25 at 1850, Administer over 15 Minutes, Routine, low blood sugar BG 51-89 mg/dL Or dextrose 10 % (D10W) bolus 250 mLJump to med 250 mL, Intravenous, Every 15 min PRN, Starting on Guillermina 01/12/25 at 1615, Until 01/14/25 at 1850, Administer over 15 Minutes, Routine, PRN low blood sugar BG =/<50 mg/dL Or glucagon (human recombinant) injection 1 mgJump to med 1 mg, Intramuscular, Every 15 min PRN, Starting on Guillermina 01/12/25 at 1615, Until 01/14/25 at 1850, Routine, low blood sugar per Hypoglycemia Prevention and Treatment protocol Group 3: oxyCODONE (Roxicodone) immediate release tablet 5 mg (CANCELED) 5 mg, Oral, Once as needed, 2 doses, Starting on Thu01/13/25 at 0911, Until Thu01/13/25 at 1028, Routine, Recovery (Phase I only), pain score of 3-5 out of 10 Or oxyCODONE (Roxicodone) immediate release tablet 10 mg (CANCELED)Jump to med 10 mg, Oral, Once as needed, 2 doses, Starting on Thu01/13/25 at 0911, Until Thu01/13/25 at 1028, Routine, Recovery (Phase I only), pain score of 6-8 out of 10 Group 4: Insert peripheral IV (COMPLETED) Once, On 01/07/25 at 1658, For 1 occurrence And Saline lock IV (COMPLETED) Once, On 01/07/25 at 1658, For 1 occurrence And sodium chloride 0.9 % flush 3 mLJump to med 3 mL, Intravenous, As needed, Starting on 01/07/25 at 1657, Until 01/14/25 at 1850, Routine, line care, 3 mL flush for PERIPHERAL IV CARE ONLY. 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
--- OUTSIDE RECORDS SUMMARY | 2025-01-13 07:45 | XMS_ITS | Encounter Summary ---
Author Organization Healthcare Address [address] [id number] Care Team Providers Care Nail Feeder Name Role Phone JoseVahid Nazia PAYNE Primary Care Provider Reason for Visit * Reason Comments Hypotension * Auth/Cert (Routine) Specialty Diagnoses / Procedures Referred By Contac t Referred To Contact Diagnoses Shock (CMS/HCC) GWEN (acute kidney injury) ([facility]/HCC) Chronic heart failure with preserved ejection fraction ([facility]/HCC) Neela Alexis MD [address] [facility] [address] [place] [address] Phone: tel: fax: P[facility] A Inpatient [address] [place] [address] Referral ID Status Reason Start Date Expiration Date Visits Re quested Visits Authorized [id number] 1 1 Encounter Details Date Type Department Care Team (Late st Contact Info) Description 01/13/2025 7:45 AM EDT - 01/13/2025 9:15 AM EDT Surgery [facility] A OPERATING ROOM [address] [place] [address] Mat Bowles MD [address] [facility] [address] [place] [address] HYSTEROSCOPY, WITH DILATION AND CURETTAGE OF UTERUS [14563 (CPT )] Surgery Details Date/Time Status Location OR Service Patient Class Case Class Case Type Trauma Case? 01/13/2025 7:45 AM Posted [facility] 2OR 15 Gynecology Inpatient E-Electi ve Panel 1 Procedure LRB Anes Op Region Wound Class Comments HYSTEROSCOPY, WITH DILATION AND CURETTAGE OF UTERUS N/A General INSERTION, INTRAUTERINE DEVICE N/A General Surgeon Surgeon Role Service Panel Mat Bowles MD Primary Gynecology 1 Aleida Ingram MD Resident - Assisting 1 documented in this encounter Social History Tobacco Use Types Packs/Day Years [...] No 01/10/2025 Housing Stability Vital Sign Answer Vish e Recorded In the last 12 months, was t here a time when you were not able to pay the mortgage or rent on time? No 01/10/2025 In the past 12 months, how m any times have you moved where you were living? 0 01/10/2025 At any time in the past 12 m ont, were you homeless or living in a usp (including now)? No 01/10/2025 Utilities Answer Date Recorded In the past 12 months has th e Commissioner, gas, oil, or water company threatened to shut off services in your home? No 01/10/2025 Comments No Sex and Gender Information Value Date Recorded Sex Assigned at Not on file Legal Sex Female 7:51 PM EDT Gender Identity Not on file Sexual Orientation Not on file documented as of this encounter Last Filed Vital Signs Vital Sign Reading Time Taken Comments Blood Pressure 134/74 01/13/2025 6:30 AM EDT Pulse 91 01/13/2025 6:29 AM EDT Temperature 36.9 C (98.4 F) 01/13/2025 6:29 AM EDT Respiratory Rate 18 01/13/2025 6:29 AM EDT Oxygen Saturation 97% 01/13/2025 6:30 AM EDT Inhaled Oxygen Concentration - - Weight 188 kg (415 lb) 01/13/2025 6:29 AM EDT Height 160 cm (5' 3 ) 01/07/2025 6:00 PM EDT Body Mass Index 73.75 01/13/2025 9:42 [...] not drink 01/10/2025 5:12 PM EDT Bi Saini, RN Q3: How often do you have six or more drinks on one occasion? Never 01/10/2025 5:12 PM EDT Bi Saini LOS * Calculated C-SSRS Risk Score (Lifetime/Recent) Answer Date of Assessment Author No Risk Indicated 01/13/2025 6:15 AM EDT Tawana Woods RN * Question Answer Date of Assessment Author 1. Wish to be (Past 1 Month) No 01/13/2025 6:15 AM EDT Roberto Sanon, LOS 2. Non-Specific Active Suicidal Thoughts (Past 1 Month) No 01/13/2025 6:15 AM EDT Roberto Sanon, RN 6. Suicidal Behavior (Lifetime) No 01/13/2025 6:15 AM EDT Roberto Sanon, RN documented as of this encounter Discharge Instructions * Discharge Instructions* Aleida Ingram MD - 01/13/2025 10:13 AM EDT HYSTEROSCOPY POSTOP INSTRUCTIONS POST-OP APPT: You should have a post-op appointment in 4-6 weeks. Please call [phone] if you need to reschedule. ACTIVITY You [...] bleeding - Inconclusive US completed while at [facility], 12/30: nondiagnostic, poorly visualized uterus measuring 13.3 x 4.4 x 6.7; no focal lesion, unable to visualize endometrium, nabothian cyst - Last pap smear 24 years ago, no history of abnormal - 78 pack year smoking history - TVUS 01/09: unable to visualize uterus - Postmenopausal bleeding with associated anemia concerning for endometrial hyperplasia or malignancy. Cannot exclude other RN ASSESSMENT pathologies contributing to bleeding such as cervical malignancy, fibroid, endometrial polyp, etc. given no pap smear x24 years, history of cigarette smoking, and limited RN ASSESSMENT care since her last . - s/p Hysteroscopy, D&C, and placement of Mirena IUD 01/13 - Pathology from D&C pending. Will determine outpatient follow up pending pathology results. Please message on-call RN ASSESSMENT resident via [employer] Secure Chat or page [phone] (M-F 6a-6p) or [phone] (nights/weekends) for questions or concerns regarding this [...] Neo Viera MD PCP name and Address: Jose, Vahid Nazia, DO [address] [place] [address] / [place] [address] Chief Concern, Brief History of Present Illness, [...] She was notedto have proliferative appearing endometrium. RN ASSESSMENT arranging follow up in 4-6 weeks. *Hypotension [...] with preserved EF Carries diagnosis; discharged from [facility] on torsemide, metolazone, spironolactone, metoprolol tartrate. She [...] Ellipta 100-62.5-25 MCG/ACT aerosol powder Generic drug: Coblfocckyl-Dfhmeqxcp-Djxpfb Inhale 1 puff daily. Where to Get Your Medications These medications were sent to [facility] - [place], [place] - [address] [facility] [address] [facility] [place] [address] miconazole 2 % powder midodrine 10 MG [...] and renal function on diuretics -f/u with RN ASSESSMENT in 4-6 weeks (RN ASSESSMENT team arranging) Test Results Pending At Discharge [...] Note Stacey Ulloa 54 y.o. female CSN: [id number] Admission: 01/07/2025 11:00 AM Primary Problem: Shock (CMS/HCC) Anticipated Discharge Date: 01/14/25 Has Discharge Plans Changed? No Medicare Second Notice: Medicare Medicare Second Notice?: Yes Date Second Notice Completed: 01/12/25 Time Second Notice Completed: 1341 Medicare Second Notice Recieved By: Patient Housing Circumstances: Not Applicable Housing Circumstances Action Taken: Other na Medically Ready for Discharge: Anticipated Today Additional Comments Pt has ambulance scheduled today at 1600 To: Home address [address] [place] [address] will remain available through discharge if needs arise. Nathalie Singh CASH SHORTAGE INVESTIGATOR, TUBE ROOM SUPERVISOR Clinical Pharmacy Manager * Care Plan - Melissa Saldana RN [...] Glycemic Control Flowsheets (Taken 01/11/2025 0353 by Luis, Aimee L) Hyperglycemia Management: correctional insulin given blood glucose [...] imaging limited due to body habitus -01/13 RN ASSESSMENT performed exam under anesthesia, endometrial biopsy, and [...] with preserved EF -carries diagnosis; discharged from [facility] on torsemide, metolazone, spironolactone, metoprolol tartrate; felt [...] AM EDT Operative Note Date: 01/13/25 Location: [facility] Name: Stacey Ulloa, : 1970, Diagnoses: Pre-op Diagnosis Abnormal uterine and vaginal bleeding, unspecified Post-op Diagnosis Abnormal uterine and vaginal bleeding, unspecified Procedure(s): Hysteroscopy, D&C, Mirena IUD placement Attending Surgeon(s): Mat Lerma - Primary Rotor Coil Taper(s): * Aleida Ingram MD - Resident - [...] bleeding - Inconclusive US completed while at [facility], 12/30: nondiagnostic, poorly visualized uterus measuring 13.3 x 4.4 x 6.7; no focal lesion, unable to visualize endometrium, nabothian cyst - Last pap smear 24 years ago, no history of abnormal - 78 pack year smoking history - TVUS 01/09: unable to visualize uterus - Postmenopausal bleeding with associated anemia concerning for endometrial hyperplasia or malignancy. Cannot exclude other RN ASSESSMENT pathologies contributing to bleeding such as cervical malignancy, fibroid, endometrial polyp, etc. given no pap smear x24 years, history of cigarette smoking, and limited RN ASSESSMENT care since her last . Recommendations: - Continue Megace 40 daily in the setting of concern for endometrial hyperplasia - Continue nursing pad counts to attempt to better quantify patient's bleeding - To OR for hysteroscopy, D&C, and mirena IUD placement today # Rest of care per primary team Dispo: To OR for hysteroscopy, D&C, and mirena IUD placement Please message on-call RN ASSESSMENT resident via [employer] Secure Chat or page [phone] (M-F 6a-6p) or [phone] (nights/weekends) for questions or concerns regarding this [...] body habitus -currently on megestrol acetate per RN ASSESSMENT recs; bleeding improved -store consultant planning on OR for exam under anesthesia, [...] with preserved EF -carries diagnosis; discharged from [facility] on torsemide, metolazone, spironolactone, metoprolol tartrate; felt [...] left anterior fascicle pacing) with Dr. Manoj Badna -TTE (12/05/24): EF 68%, paradoxical septal motion, [...] Note Stacey Ulloa 54 y.o. female CSN: [id number] Admission: 01/07/2025 11:00 AM Primary Problem: Shock (CMS/HCC) Anticipated Discharge Date: 01/14 Has Discharge Plans Changed? No; home Medicare Second Notice: Medicare Medicare Second Notice?: Yes Date Second Notice Completed: 01/12/25 Time Second Notice Completed: 1349 Medicare Second Notice Recieved By: Patient Medically Ready for Discharge: Anticipated in 2-4 Days Additional Comments Patient admitted for weakness, fatigue, hypotension, and SOB. Patient required pressors for hypotension, so was admitted to MICU. Patient severely anemic from vaginal bleeding requiring blood transfusion. RN ASSESSMENT consulted. Patient transferred to [facility] on 01/09. Per MD patient is not medically ready fordischarge. Recreation Engineer planning on hysteroscopy, D&C, and mirena IUD [...] Pre anesthesia evaluation and optimization Requesting Service: Recreation Engineer Requested Date/Time: 01/12/25 History Of Present Illness [...] anterior fascicle pacing) with Dr. Aranda at [facility]. Cardiology consulted and interrogated pacemaker 01/07 (see [...] 96%. Results Review {Vanishing Link Review Results :[id number] I have reviewed the latest lab and [...] is no recent study available for direct dulr-[id number]-[id number] comparison. Encounter Date: 01/07/25 ECG Adult Result Value EKG DIAGNOSIS CLASS Abnormal Ventricular Rate 91 Atrial Rate 91 WA Interval 186 QRSD Interval 112 QT Interval 366 QTC Interval 450 P [place] 66 R [place] 72 T Wave [place] -77 Diagnosis Normal sinus rhythm Diagnosis Low [...] procedure. Susan Saha PA-C Department of Anesthesia [phone] [1] No past medical history on file. [...] Neo Viera MD 40 mg at 01/12/25 101 metFORMIN (Glucophage) tablet 500 mg 500 mg Oral BID with meals Neo Viera MD 500 mg at 014 miconazole (Micotin) 2 % powder 1 Application 1 Application Topical BID Neo Viera MD 1 Application at 01/12/25 1015 midodrine (Proamatine) tablet 10 mg 10 mg Oral TID Trey Anthony MD 10 mg at 01/12/25 1014 Tiotropium [place] Monohydrate (Spiriva Respimat) 2.5 MCG/ACT inhaler 2 [...] mL 3 mL Intravenous PRN Elvia Baldwin, RECOVERY UNIT OPERATOR, DNP 13 mL at 01/11/252006 torsemide (Demadex) [...] bleeding - Inconclusive US completed while at [facility], 12/30: nondiagnostic, poorly visualized uterus measuring 13.3 x 4.4 x 6.7; no focal lesion, unable to visualize endometrium, nabothian cyst - Last pap smear 24 years ago, no history of abnormal - 78 pack year smoking history - TVUS 01/09: unable to visualize uterus - Postmenopausal bleeding with associated anemia concerning for endometrial hyperplasia or malignancy. Cannot exclude other RN ASSESSMENT pathologies contributing to bleeding such as cervical malignancy, fibroid, endometrial polyp, etc. given no pap smear x24 years, history of cigarette smoking, and limited RN ASSESSMENT care since her last . Recommendations: - Continue Megace 40 daily in the setting of concern for endometrial hyperplasia - Continue nursing pad counts to attempt to better quantify patient's bleeding - Plan for hysteroscopy, D&C, and mirena IUD placement on 01/13. NPO @ [facility] - Will need pre-operative clearance from anesthesia # Rest of care per primary team Dispo: RN ASSESSMENT will continue to follow. Please message on-call RN ASSESSMENT resident via [employer] Secure Chat or page [phone] (M-F 6a-6p) or [phone] (nights/weekends) for questions or concerns regarding this patient's care. Aelida Ingram MD Obstetrics & Gynecology, PGY-1 Cosigned by Kayley Mcmullen MD at 01/12/2025 3:37 PM EDT Associated attestation - Kayley Mcmullen MD - 01/12/2025 3:37 PM EDT I saw and evaluated the patient. I discussed the case with the resident/fellow and agree with the findings and plan as documented. * Care Plan - Rosa Roy, RN - 01/11/2025 11:43 PM EDT Problem: [...] on Provera; changed to megestrol acetate per RN ASSESSMENT recs -store consultant planning on OR for exam under anesthesia, [...] with preserved EF -carries diagnosis; discharged from [facility] on torsemide, metolazone, spironolactone, metoprolol tartrate; felt [...] bleeding - Inconclusive US completed while at [facility], 12/30: nondiagnostic, poorly visualized uterus measuring 13.3 x 4.4 x 6.7; no focal lesion, unable to visualize endometrium, nabothian cyst - Last pap smear 24 years ago, no history of abnormal - 78 pack year smoking history - TVUS 01/09: unable to visualize uterus - Postmenopausal bleeding with associated anemia concerning for endometrial hyperplasia or malignancy. Cannot exclude other RN ASSESSMENT pathologies contributing to bleeding such as cervical malignancy, fibroid, endometrial polyp, etc. given no pap smear x24 years, history of cigarette smoking, and limited RN ASSESSMENT care since her last . Recommendations: - Continue Megace 40 daily in the setting of concern for endometrial hyperplasia - Continue nursing pad counts to attempt to better quantify patient's bleeding - Tentative plan for hysteroscopy, D&C, and mirena IUD placement on 01/13 pending OR availability - Will need pre-operative clearance from anesthesia # Rest of care per primary team Dispo: RN ASSESSMENT will continue to follow. Please message on-call RN ASSESSMENT resident via [employer] Secure Chat or page [phone] (M-F 6a-6p) or [phone] (nights/weekends) for questions or concerns regarding this [...] Prevent or Manage Infection Flowsheets Taken 01/11/2025 044 by Aimee Luis Isolation Precautions: precautions maintained [...] per tolerance Taken 01/10/2025 1203 by Gabe Craig RN Pressure Reduction Techniques: frequent weight shift [...] Patient and Family Response Flowsheets Taken 01/11/2025 075 by Bi Saini RN Supportive Measures: active listening utilized Taken 01/11/2025 035 by Aimee Luis Family/Support System Care: support provided Goal: Absence of Bleeding Outcome: Ongoing, Progressing Intervention: Monitor and Manage Bleeding Flowsheets Taken 01/11/2025 075 by Bi Saini RN Bleeding Management: dressing [...] rest/sleep promoted Taken 01/10/2025 1203 by Gabe Craig RN Infection Management: aseptic technique maintained Intervention: Promote Stabilization Flowsheets (Taken 01/10/2025 1203 by Gabe Craig, LOS) Fever Reduction/Comfort Measures: lightweight bedding lightweight clothing [...] Promote Safety and Comfort Flowsheets (Taken 01/11/2025 014 by Aimee Luis) Bariatric Safety: specialty bed utilized * Care Plan - Aimee Luis - 01/11/2025 3:57 AM EDT Problem: Adult Inpatient Plan of Care Goal: Plan of Care Review 01/11/2025 035 by Aimee Luis Outcome: Ongoing, Progressing Flowsheets (Taken 01/10/2025 0740 by Alexandria Brooks) Progress: improving Plan of Care Reviewed With: patient 01/11/2025 014 by Aimee Luis Outcome: Ongoing, Progressing Flowsheets (Taken 01/10/2025 0740 by Alexandria Brooks) Progress: improving Plan of Care Reviewed With: patient Goal: Patient-Specific Goal (Individualized) 01/11/2025 035 by Aimee Luis Outcome: Ongoing, Progressing Flowsheets (Taken 01/11/2025 0000) Patient/Family-Specific Goals (Include Timeframe): pt will remain injury free Individualized Care Needs: safety Anxieties, Fears or Concerns: none 01/11/2025 014 by Aimee Luis Outcome: Ongoing, Progressing Flowsheets (Taken 01/11/2025 0000) Patient/Family-Specific Goals (Include Timeframe): pt will remain injury free Individualized Care Needs: safety Anxieties, Fears or Concerns: none Goal: Absence of Hospital-Acquired Illness or Injury 01/11/2025 035 by Aimee Luis Outcome: [...] Pain and Promote Comfort Flowsheets (Taken 01/11/2025 035) Pain Management Interventions: medication (see MAR) care clustered relaxation techniques promoted rest position adjusted Intervention: Provide Person-Centered Care Flowsheets (Taken 01/11/2025 0353) Trust Relationship/Rapport: care explained choices provided emotional support provided empathic listening provided questions answered questions encouraged thoughts/feelings acknowledged reassurance provided Goal: Readiness for Transition of Care 01/11/2025 0353 by Aimee Luis Outcome: Ongoing, Progressing 01/11/2025 014 by Aimee Luis Outcome: Ongoing, Progressing Intervention: Mutually Develop Transition Plan Flowsheets (Taken 01/10/2025 1200 by Evelyn Nova RN) Equipment Currently Used at Home: ([employer]) commode chair walker, rolling wheelchair, manual oxygen Current Outpatient/Agency/Support Group: ([facility]) homecare agency Transportation Anticipated: medical transport Transportation [...] Goal: Absence of Fall and Fall-Related Injury 01/11/2025352 by Aimee Luis Outcome: Ongoing, Progressing 01/11/2025141 by Aimee Luis Outcome: Ongoing, Progressing Intervention: Identify and Manage Contributors Flowsheets (Taken 01/10/2025 1203 by Gabe Craig, RN) Medication Review/Management: medications reviewed Self-Care Promotion: independence encouraged Intervention: Promote Injury-Free Environment Flowsheets (Taken 01/10/2025 1900) Safety Promotion/Fall Prevention: clutter-free environment maintained fall prevention program maintained Problem: Sepsis/Septic Shock Goal: Optimal Coping 01/11/2025352 by Aimee Luis Outcome: Ongoing, Progressing 01/11/2025 014 by Aimee Luis Outcome: Ongoing, Progressing Intervention: Support Patient and Family Response Flowsheets (Taken 01/11/2025 0353) Family/Support System Care: support provided Goal: Absence of Bleeding 01/11/2025352 by Aimee Luis Outcome: Ongoing, Progressing 01/11/2025141 by Aimee Luis Outcome: Ongoing, Progressing Intervention: Monitor and Manage Bleeding 01/11/2025352 by Aimee Luis Flowsheets (Taken 01/11/2025 0142) Bleeding Precautions: blood pressure closely monitored 01/11/2025141 by Aimee Luis Flowsheets (Taken 01/11/2025 0142) Bleeding Precautions: blood pressure closely monitored Goal: Blood Glucose Level Within Target Range 01/11/2025 0353 by Aimee Luis Outcome: Ongoing, Progressing 01/11/2025 014 by Aimee Luis Outcome: Ongoing, Progressing Intervention: Optimize Glycemic Control Flowsheets (Taken 01/11/2025 035) Hyperglycemia Management: correctional insulin given blood glucose [...] Flowsheets (Taken 01/10/2025 1203 by Gabe Craig, LOS) Fever Reduction/Comfort Measures: lightweight bedding lightweight clothing fluid intake increased Goal: Optimal Nutrition Delivery 01/11/2025 035 by Aimee Luis Outcome: Ongoing, Progressing 01/11/2025141 by Aimee Luis Outcome: Ongoing, Progressing Intervention: Optimize Nutrition Delivery Flowsheets (Taken 01/11/2025 035) Nutrition Interventions: referred to dietitian Problem: Bariatric Environmental Safety Goal: Safety Maintained with Care 01/11/2025352 by Aimee Luis Outcome: Ongoing, Progressing 01/11/2025 014 by Aimee Luis Outcome: Ongoing, Progressing Intervention: Promote Safety and Comfort 01/11/2025 035 by Aimee Luis Flowsheets (Taken 01/11/2025 014) Bariatric Safety: specialty bed utilized 01/11/2025141 by Aimee Luis Flowsheets (Taken 01/11/2025 014) Bariatric Safety: specialty bed utilized * Progress Notes - Gabe Craig RN - 01/10/2025 4:16 PM EDT Nursing report called to bi [place] on . Patient prepared for transport to [...] mg BID; changed to megestrol acetate per RN ASSESSMENT recs -store consultant planning on OR for exam under anesthesia, [...] with preserved EF -carries diagnosis; discharged from [facility] on torsemide 40mg, spironolactone 25mg, metoprolol tartrate [...] Note Stacey Ulloa 54 y.o. female CSN: [id number] Admission: 01/07/2025 11:00 AM Primary Problem: Shock (CMS/HCC) Cement Mixer reviewed chart and spoke with patient at bedside to complete this Initial Case Management Assessment. PCP: Vahid Garcia DO Emergency Contact: Extended Emergency Contact Information Primary Emergency Contact: Hari Cook Mobile Relation: Son Preferred language: French Buzzsaw Operator Helper needed? No Insurance: Primary Visit Coverage Payer Plan Sponsor Code Group Number Group Name HUMANA MEDICARE HU[employer]NA GOLD PLUS [id number] Primary Visit Coverage Subscriber Subscriber ID Subscriber Name Subscriber SSN Subscriber Address [id number] STACEY ULLOA [id number] [facility] [address] [place] [id number] Secondary Visit Coverage Payer Plan Sponsor Code Group Number Group Name [employer] MEDICAID A[employer] [place] Secondary Visit Coverage Subscriber Subscriber ID Subscriber Name Subscriber SSN Subscriber Address [id number] STACEY ULLOA [id number] [id number] Patient information: Primary Caregiver: Self Support System: Immediate family Daily Living Activities: Functional Status: Moderate assistance Living Arrangements: Children (2 adult sons and daughter in law) Type of Residence: Private residence, Single Level (no steps to front door) [address] [place] [address] Current DME: Equipment Currently Used at Home: commode chair, walker, rolling, wheelchair, manual, oxygen ([employer]) Income Information: Income Source: Disabled ($987/month) Income/Expense Information: Expenses exceed income Current Resources Utilized: Food [place] ($446/month) Housing Circumstances-Z Codes: Housing Circumstances (select all that apply): Low Income (101-300% Federal Poverty Guidlines) - Z596 Patient Referred to: None Anticipated Discharge Date: TBD Patient's Discharge Goal: Patient/Family Anticipates Transition to: home with family Assistance Available at Discharge: Current Outpatient/Agency/Support Group: homecare agency ([facility]) Discharge Transport: Transportation Anticipated: medical transport Follow Up Transport: Transportation Needed to Follow up Appoinments: Family/Friend will Provide Home Health / Home Infusion / Outpatient Dialysis Services: Patient is current with [facility] . PT/OT, nursing and SW. Living Will/Advance Directive/Power of Cloud Infrastructure Architect /Guardian: None Additional Comments: Patient admitted for weakness, fatigue, hypotension, and SOB. Patient required pressors for hypotension, so was admitted to MICU. Patient severely anemic from vaginal bleeding requiring blood transfusion. RN ASSESSMENT consulted. Patient transferred to [facility] 5 on 01/09. Patient has home oxygen [...] bleeding - Inconclusive US completed while at [facility], 12/30: nondiagnostic, poorly visualized uterus measuring 13.3 x 4.4 x 6.7; no focal lesion, unable to visualize endometrium, nabothian cyst - Last pap smear 24 years ago, no history of abnormal - 78 pack year smoking history - TVUS 01/09: unable to visualize uterus - Postmenopausal bleeding with associated anemia concerning for endometrial hyperplasia or malignancy. Cannot exclude other RN ASSESSMENT pathologies contributing to bleeding such as cervical malignancy, fibroid, endometrial polyp, etc. given no pap smear x24 years, history of cigarette smoking, and limited RN ASSESSMENT care since her last . Recommendations: - Recommend continuation discontinuing Provera 20 mg BID and starting Megace 40 daily in the setting of concern for endometrial hyperplasia - Continue nursing pad counts to attempt to better quantify patient's bleeding - Will ultimately need RN ASSESSMENT exam and tissue sampling for diagnosis. Patient's [...] Rest of care per primary team Dispo: RN ASSESSMENT will continue to follow. Please message on-call RN ASSESSMENT resident via [employer] Secure Chat or page [phone] (M-F 6a-6p) or [phone] (nights/weekends) for questions or concerns regarding this [...] Progressing Intervention: Identify and Manage Fall Risk 01/10/20251203 by Gabe Craig RN Flowsheets (Taken 01/10/2025 [...] female admitted 01/07/2025 for work-up of Shock ([facility]). Problem List Active Hospital Problems Diagnosis Date Noted Shock (CMS/[facility]) 01/07/2025 Class III obesity with body mass index (BMI) of 40.0 or higher (CMS/[facility]) 01/07/2025 Procedures Past Medical History Patient has no past medical history on file. Past Surgical History Patient has no past surgical history on file. Precautions Medical Precautions: Fall precautions Subjective Reports that she has not been out of bed yet Participants in Care Family/Caregiver Present: No Buzzsaw Operator Helper: Not Applicable Presentation Oxygen Therapy: Supplemental oxygen [...] From: Son Level of Mobility: Wheelchair/Scooter Mobility Toole: Assist with wheelchair propulsion ADL Performance: Needs [...] Mobility Exam: Supine to Sit Level of Toole: Minimum assist (75% patient's effort) Physical/Nonphysical Assist: Set-up required, Verbal Cues, HOB elevated Assistive Device: Bed rails Transfers Transfer Exam: Sit to stand Level of Toole: Minimum assist (75% patient's effort) Physical/Nonphysical Assist: Set-up required, Verbal Cues Assistive Device: Hand held assist Transfer Exam: Stand to Sit Level of Toole: Minimum assist (75% patient's effort) Physical/Nonphysical Assist: Set-up required, Verbal Cues Assistive Device: Hand held assist Transfer Exam: Bed to Chair/Chair to Bed Level of Toole: Minimum assist (75% patient's effort) Physical/Nonphysical Assist: [...] Assessments Standardized Assessments: AMPAC 6-Clicks Mobility Assessment AMPAC 6-Clicks Mobility Assessment Difficulty patient has turning [...] climbing 3-5 steps with a railing?: Unable [facility] 6-Clicks Mobility Assessment Total : 14 [...] female admitted 01/07/2025 for work-up of Shock ([facility]). Problem List Active Hospital Problems Diagnosis Date Noted Shock ([facility]) 01/07/2025 Class III obesity with body mass index (BMI) of 40.0 or higher ([facility]) 01/07/2025 Procedures Past Medical History Patient has no past medical history on file. Past Surgical History Patient has no past surgical history on file. Precautions Medical Precautions: Fall precautions Subjective Patient agreeable to initial OT evaluation this a.m. Participants in Care Family/Caregiver Present: No Buzzsaw Operator Helper: Not Applicable Presentation Oxygen Therapy: Supplemental oxygen [...] From: Son Level of Mobility: Wheelchair/Scooter Mobility Toole: Assist with wheelchair propulsion History of Falls: [...] Mobility Bed Mobility Exam: Rolling/Turning Level of Toole: Minimum assist (75% patient effort) Physical/Nonphysical Assist: Verbal Cues Bed Mobility Exam: Scooting/Bridging Level of Toole: Minimum assist (75% patient's effort) Physical/Nonphysical Assist: Verbal Cues Bed Mobility Exam: Supine to Sit Level of Toole: Minimum assist (75% patient's effort) Physical/Nonphysical Assist: Set-up required, Verbal Cues, HOB elevated Transfers Transfer Exam: Sit to stand Level of Toole: Minimum assist (75% patient's effort) Physical/Nonphysical Assist: Set-up required, Verbal Cues Assistive Device: Hand held assist Transfer Exam: Stand to Sit Level of Toole: Minimum assist (75% patient's effort) Physical/Nonphysical Assist: Set-up required, Verbal Cues Assistive Device: Hand held assist Transfer Exam: Bed to Chair/Chair to Bed Level of Toole: Minimum assist (75% patient's effort) Physical/Nonphysical Assist: [...] Review Outcome: Ongoing, Progressing Flowsheets (Taken 01/10/2025 2079) Progress: improving Plan of Care Reviewed With: [...] Reports that she was recently at the [facility] for the same thing. She returned homeand wasn't feeling well and very tired so went back to the hospital. Feeling ok now. Reports thattrente has had some vaginal bleeding in the [...] anterior fascicle pacing) with Dr. Aranda at [facility] - TTE (12/05/24): EF 68%, paradoxical septal [...] including PH or OHS - Discharged from [facility] on torsemide 40mg, spironolactone 25mg, metoprolol tartrate [...] NC baseline who presented to [facility] believed to be in undifferentiated shock requiring [...] TID (which she was previously on during [facility] hospitalization earlier this month) with strong response in blood pressure. Last BP per cuff 147/55. AM cortisol level this morning was appropriate. She is on baseline NC with 2L. Patient is being transferred from ICU team to [facility]. Major Active Problems: Abnormal uterine bleeding c/b [...] frequently when she is bleeding - Describes owen sized clots with bleeding - Inconclusive US completed while at [facility], 12/30: nondiagnostic, poorly visualized uterus measuring 13.3 [...] endometrial hyperplasia or malignancy. Cannot exclude other RN ASSESSMENT pathologies contributing to bleeding such as cervical malignancy, fibroid, endometrial polyp, etc. given no pap smear x24 years, history of cigarette smoking, and limited RN ASSESSMENT care since her last . Recommendations: - [...] quantify patient's bleeding - Will ultimately need RN ASSESSMENT exam and tissue sampling for diagnosis. Patient's [...] Rest of care per primary team Dispo: RN ASSESSMENT will continue to follow. Please message on-call RN ASSESSMENT resident via [employer] Secure Chat or page [phone] (M-F 6a-6p) or [phone] (nights/weekends) for questions or concerns regarding this [...] Bleeding, infection, ischemia, repeat procedure and pain [place] protocol: Procedure explained and questions answered to [...] portions of the procedure(s) and immediately available [facility] services the entire duration. See resident note [...] was previously on this during hospitalization in [facility]). Follow-up cx's, check cortisol. h/o vaginal bleeding, store consultant consulted. MICU PROGRESS NOTE Events of past [...] shock. #Undifferentiated shock - Patient discharged from [facility] 01/05 at which time she was admitted to their ICU with low blood pressures requiring vasopressors; patient reports she was not told of the etiology of this shock - Arrives to [facility] hypotensive per cuffs although difficult to obtain [...] of vaginal bleeding with large clots - [facility] planned for outpatient endometrial biopsy - Denies [...] anterior fascicle pacing) with Dr. Aranda at [facility] - TTE (12/05/24): EF 68%, paradoxical septal [...] including PH or OHS - Discharged from [facility] on torsemide 40mg, spironolactone 25mg, metoprolol tartrate [...] Gynecology Gynecology Consult Note Patient Name: Stacey lUloa : 1970 Inpatient consult to Gynecology Consult performed by: Guerda Thakur MD Consult ordered by: Neela Alexis MD Subjective Subjective History of Present Illness: Stacey Ulloa is a 54 y.o. admitted to MICU for hypotension. RN ASSESSMENT consulted for postmenopausal bleeding. Patient currently admitted [...] child. She has not followed with a mine deputy since . Her social history is significant [...] bleeding - Inconclusive US completed while at [facility], 12/30: nondiagnostic, poorly visualized uterus measuring 13.3 [...] endometrial hyperplasia or malignancy. Cannot exclude other RN ASSESSMENT pathologies contributing to bleeding such as cervical malignancy, fibroid, endometrial polyp, etc. given no pap smear x24 years, history of cigarette smoking, and limited RN ASSESSMENT care since her last . Recommendations: - [...] quantify patient's bleeding - Will ultimately need RN ASSESSMENT exam and tissue sampling for diagnosis. Patient's [...] Rest of care per primary team Dispo: RN ASSESSMENT will continue to follow. Thank you for including us in the care of this patient. This consult was staffed with Dr. Cornelius Bravo. Please message on-call RN ASSESSMENT resident via [employer] Secure Chat or page [phone] (M-F 6a-6p) or [phone] (nights/weekends) for questions or concerns regarding this [...] y.o. female who initially presented to the [facility] with a chief complaint of shortness of [...] for which she was ultimately admitted to OSH and then transferred to [facility] for atrial lead revision. This took place [...] y.o. female who initially presented to the [facility] for shortness of breath, and Cardiology is [...] physician: Dr Holland. Please page the on-call neonatal surgeon with any further questions. I spent 45 minutes performing the following components of the encounter (on the day of the encounter): reviewing History, examining the patient, reviewing imaging and/or labs, Independently interpreting echocardiogram, ECG and/or other imaging results, ordering tests or procedures, ordering medications, counseling the patient and family/caregiver, communicating with other health career advisor, care coordination, and entering clinical information in the EHR. Greater than 50% of the time spent on the encounter was face to face providing direct patient care, counseling for the patient/caregiver, and care coordination. The following cardiovascular risk factors and co-morbidities complicates the management of these conditions: Vaginal bleeding, Morbid Obesity Trevor Webster MD Halftone Operator [1] No past medical history on file. [...] hospitalization, patient was also being seen by Recreation Engineer/Onc for abnormal uterine bleeding, but ultimately planned [...] anterior fascicle pacing) with Dr. Aranda at [facility] - s/p pacemaker single lead atrial insertion (12/29/24) [facility] with serial #[id number] - Pacer lead fixed - ECHO (12/05/24): EF 68%. Paradoxical septal motion. Moderate global RV hypokinesis. Plans: - Cards following, appreciate recs - Repeat ECHO pending Heart Failure with preserved Ejection Fraction - Was discharged from [facility] on Torsemide 40 mg PO, Spironolactone 25 [...] injection 5,000 Units 5,000 Units Subcutaneous q8h [facility] Elvia Baldwin APRN, DNP ??? insulin regular (HumuLIN R,NovoLIN R) 100 units/mL injection - Correction - Standard Dose 0-5 Units Subcutaneous q6h [facility] Elvai Baldwin APRN, DNP ??? lactated Ringer's bolus 500 mL 500 mL Intravenous Once lEvia Baldwin APRN, DNP ??? mupirocin (Bactroban) 2 [...] outpatient medications on file. Cosigned by Bhaskar lAbert MD at 01/07/2025 5:32 PM EDT Associated [...] was notedto have proliferative appearing endometrium. [facility] RN ASSESSMENT arranging follow up in 4-6 weeks. *Hypotension [...] with preserved EF Carries diagnosis; discharged from [facility] on torsemide, metolazone, spironolactone, metoprolol tartrate. She [...] renal function on diuretics -f/u with [facility] RN ASSESSMENT in 4-6 weeks (RN ASSESSMENT team arranging) * ED Procedure Note - [...] breath, hypotension, vaginal bleeding. Recent discharge from [facility] last night for pacemaker complication. Had an echo performed last month which demonstrated overall preserved ejection fraction wit hout significant valvular regurgitation. History AV block status post dual-chamber pacemaker, recent pacemaker single lead atrial insertion on the of this month. Additional history of heart [...] alert. Psychiatric: Mood and Affect: Mood normal. Abril Coma Scale Score: 15 ED Course & [...] 1701 CBC W/O Differential Morning draw Ordered ELVIA BALDWIN 01/07/25 1701 Ionized calcium, serum Morning draw [...] protocol Order ID Start Status Ordering Provider [id number] 01/07/25 1800 Ordered DENNY, ELVIA M 01/08/25 [...] 6hours. Order ID Start Status Ordering Provider [id number] 01/07/25 1800 Ordered DENNY, ELVIA M 01/08/25 [...] Ultrasound Enhancing Agents per department protocol. Call [phone] (for Nils studies); Page [phone] (for GSH [id number]; [phone] after hours for on- call polysomnograph tech). Please provide patient's complete medical history along with pertinent cardiac information to assist with exam interpretation. Ordered DENNY ELVIA M 01/07/25 1701 Do Not Give Nicotine Replacement Until discontinued Ordered DENNY ELVIA M 01/07/25 1701 NPO diet Diet effective now Ordered DENNY ELVIA M 01/07/25 1701 Secure Urethral Catheter Until discontinued Ordered DENNY ELVIA M 01/07/25 1701 Admit to inpatient Once Ordered DENNY ELVIA M 01/07/25 1701 Mobility Orders Until discontinued Ordered DENNY ELVIA M 01/07/25 1701 Adjust HOB (specify) 30 degrees Once Ordered DENNY ELVIA M 01/07/25 170 Notify physician (specify parameters) Until discontinued Ordered DENNY ELVIA M 01/07/25 1701 Vital Signs Per unit protocol Ordered DENNY ELVIA M 01/07/25 1701 Insert urethral catheter Until discontinued Ordered DENNY ELVIA M 01/07/25 170 Catheter care Until discontinued Comments: Maintain urethral catheter per hospital policies. Ordered DENNY ELVIA M 01/07/25 1701 Insert peripheral IV Once Placed in And Linked Group Ordered DENNY ELVIA M 01/07/25 170 Saline lock IV Once Placed in And Linked Group Ordered DENNY ELVIA M 01/07/25 1701 PT eval and treat Until therapy completed Ordered DENNY ELVIA M 01/07/25 1701 OT eval and treat Until therapy completed Ordered DENNY ELVIA M 01/07/25 1701 Courtney auris Surveillance by PCR Once Ordered DENNYSCARLETEL M 01/07/25 1701 Multi Drug Resistance Test Once Ordered DENNY ELVIA M 01/07/25 1701 Hold scheduled meal/prandial insulin, if patient NPO or if patient eats less than 50%of meal. Until discontinued Ordered DENNY ELVIA M 01/07/25 1701 Do not hold scheduled basal insulin, if applicable, without physician order. Until discontinued Ordered ELVIA BALDWIN Nigel 01/07/25 170 Hemoglobin A1c Once Comments: Obtain at admission unless patient has massive blood loss or renal injury. Do not order if patient has had Hgb A1c checked in last 30 days. Ordered DENNY, ELVIA Nigel 01/07/25 170 Notify Provider Until discontinued Ordered DENNY, ELVIA M 01/07/25 170 For POC BG 71 - [...] administration and follow hypoglycemia prevention protocol. Ordered DENNY, ELVIA M 01/07/25 170 For POC BG 51 - [...] necessary until POC BG is> 100. Ordered DENNY, ELVIA M 01/07/25 170 For POC BG less than [...] if necessary until POC BG >100. Ordered DENNY, ELVIA M 01/07/25 170 Full code Continuous Ordered DENNY ELVIA M 01/07/25 1349 EKG now - STAT (adult) Once Preliminary result SCOTTY MCPHERSON 01/07/25 1343 Blood gas panel, venous STAT Final result SCOTTY MCPHERSON 01/07/25 1343 Consult to MICU Once Specialty: Intensive Care Provider: (Not yet assigned) Acknowledged LJSCOTTY Shamir 01/07/25 1343 XR Chest 1 View One time imaging Final result SCOTTY MCPHERSON Shamir 01/07/25 1212 Troponin T, High Sensitivity, 2 Hour, Plasma PROCEDURE ONCE Final result SCOTTY MCPHERSON Shamir 01/07/25 1132 Once Canceled LJSCOTTY KUNZ Shamir 01/07/25 1132 Once Canceled SCOTTY MCPHERSON Shamir 01/07/25 1131 Oxygen Therapy - Device: High Flow Nasal Cannula (HFNC); Rate in liters per minute: 30 Lpm Continuous Order ID Start Status Ordering Provider [id number] 01/07/25 1132 Completed GELY PAYNEOPHER I [id number] 01/07/251999 Acknowledged KERRY, CHRISTOPHER I [id number] 01/08/25 0800 Acknowledged KERRY, CHRISTOPHER I 01/08/251999 [...] Blood Culture (Aerobic/Anaerobet Set) STAT Preliminary result SCOTTY MCPHERSON Shamir 01/07/25 1113 Blood Culture (Aerobic/Anaerobet Set) STAT Preliminary result SCOTTY MCPHERSON Shamir 01/07/25 1113 Urinalysis with reflex microscopic AND reflex culture (IF UTI SUSPECTED) STAT Preliminary result LJSCOTTY Sahmir 01/07/25 1113 Type and screen Start now Final result LJSCOTTY Shamir 01/07/25 1113 Hepatitis C Antibody - ED Once Final result LJSCOTTY Shamir 01/07/25 1113 ED Protocol - HIV 1/2 Antibody/Antigen Screen Once Final result LJ SCOTTY Shamir 01/07/25 1113 Urinalysis with reflex microscopic (Culture [...] POCT Venous Blood Gas Docked Once Completed NADJA PAYNE I 01/07/25 1108 One time imaging Canceled NADJA PAYNE I 01/07/25 1107 EKG now - STAT (adult) Once Preliminary result NADJA PAYNE I 01/07/25 1701 POCT Glucose As needed Comments: Recheck POC BG 15 minutes after any hypoglycemia treatment. Continue until POC BG is greater than 100 mg/dL. Ordered ELVIA BALDWIN Prior records were reviewed in the electronic medical record. Patient has a history of recent visitto [facility]. Those records and images were reviewed. Recent [...] EGFR: 22.8 [ROLF] 1219 Free T4: 1.6 [ROLF] 1219 N-Terminal, PROBNP, Plasma: 710 [ROLF] 1219 [...] None Disposition Admit Admitting/Attending Physician: NEELA ALEXIS [[id number]] Provider Care Team: [facility] 1 [87] Are they the primary team?: Yes [1] - Scotty Mcpherson DO Resident 01/07/25 0643 Nadja Delcid MD, personally saw the patient, [...] comment field Hypotension Nadja Payne MD 01/09/25 1442 * ED Triage Notes - Annita Kuo RN - 01/07/2025 11:00 AM EDT Patient arrives via EMS from home with c/o hypotension, vaginal bleeding. Patient is alert and oriented upon arrival. Reports she was just discharged from [facility] with after having heart issues . Started having increased vaginal bleeding once home, passed several 7cm clots this am. EMS reports uponarrival to scene patient was very lethargic and weak. Found to be hypotensive 60/40, manual bp confirmed. documented in this encounter Plan of Treatment Scheduled Referrals Name Type Priority Associated Diagnoses Order Schedule Discharge Ambulatory referral to [facility] Outpatient Referral Routine Shock ([facility]) GWEN (acute kidney injury) ([facility]) Abnormal uterine and vaginal bleeding, unspecified Morbid obesity with body mass index (BMI) of 40.0 or higher ([facility]) [E66.01] Class III obesity with body mass index (BMI) of 40.0 or higher ([facility]) 1 Occurrences starting 01/13/2025 until 07/17/2026 Ambulatory referral to External PCP Outpatient Referral Routine Shock ([facility]) 1 Occurrences starting 01/14/2025 until 07/18/2026 documented [...] OXYGEN THERAPY Routine 01/13/2025 8:00 AM EDT WA INSERT INTRAUTERINE DEVICE 01/13/2025 7:36 AM EDT Abnormal uterine and vaginal bleeding, unspecified WA HYSTEROSCOPY,W/ENDO BX 01/13/2025 7:36 AM EDT Abnormal [...] Routine 01/09/2025 1:30 AM EDT Shock (CMS/HCC) WA INSERT CATH,ART,PERCUT,SHORTTE RM Routine 01/09/2025 1:30 AM [...] UNSOLICITED RESULTS Routine 01/08/2025 11:36 AM EDT WA CRITICAL CARE, E/M 30-74 MINUTES Routine 01/08/2025 [...] UNSOLICITED RESULTS Routine 01/07/2025 6:16 PM EDT WA CRITICAL CARE, E/M 30-74 MINUTES Routine 01/07/2025 [...] CRITICAL CARE Routine 01/07/2025 11:00 AM EDT [place] CRITICAL CARE, E/M 30-74 MINUTES Routine 01/07/2025 11:00 AM EDT documented in this encounter Results * (ABNORMAL) POCT glucose meter (01/14/2025 11:49 AM EDT) Pathologist [facility] POCT Glucose 206(H) 74 - 99 mg/dL 01/14/2025 1:38 PM EDT [facility] Comment:Accuracy of [...] 01/14/2025 1:38 PM EDT [facility] Materials Clerk ID Arcelia Tse 01/14/2025 1:38 PM EDT [facility]ALTH[facility]ARE [facility] Device ID [id number] 01/14/2025 1:38 PM EDT [facility] Specimen Type POC Capillary 01/14/2025 1:38 PM EDT [facility] Blood Capillary blood specimen / Unknown 01/14/2025 11:49 AM EDT 01/14/2025 1:38 PM EDT us Neo Viera MD LAB POINT OF CARE TE ST DOCKED DEVICE UNSOLICITED RESULTS Final Result Performing Organization Address City/[facility]/ZIP Co de Phone Number [facility] [address] [place] [address] * (ABNORMAL) POCT glucose meter (01/14/2025 7:46 AM EDT) [facility] POCT Glucose 177(H) 74 - 99 mg/dL 01/14/2025 11:13 AM EDT [facility] Comment:Accuracy of [...] Comment 01/14/2025 11:13 AM EDT [facility]ALTH[facility]ARE [facility] Materials Clerk ID Alobwede Cherelle Mazariegosth 01/14/2025 11:13 AM EDT [facility]ALTH[facility]ARE LAB Device ID [id number] 01/14/2025 11:13 AM EDT [facility]ALTH[facility]ARE [facility] Specimen Type POC Capillary 01/14/2025 11:13 AM EDT [facility] Blood Capillary blood specimen / Unknown 01/14/2025 7:46 AM EDT 01/14/2025 11:13 AM EDT us Neo Viera MD LAB POINT OF CARE TE ST DOCKED DEVICE UNSOLICITED RESULTS Final Result Performing Organization Address City/[facility]/ZIP Co de Phone Number [facility] [address] [place] [address] * (ABNORMAL) CBC W/O Differential (01/14/2025 2:44 AM EDT) WBC Count 11.01(H) 3.70 - 10.30 10*3/uL LAB HEMATOLOGY METHOD 01/14/2025 3:03 AM EDT [facility] RBC Count 3.38(L) 3.90 - 5.20 10*6/uL LAB HEMATOLOGY METHOD 01/14/2025 3:03 AM EDT [facility] HGB 8.9(L) 11.2 - 15.7 g/dL LAB HEMATOLOGY METHOD 01/14/2025 3:03 AM EDT [facility] HCT 29.7(L) 34.0 - 45.0 % LAB HEMATOLOGY METHOD 01/14/2025 3:03 AM EDT [facility] Platelet Count 335 155 - 369 10*3/uL LAB HEMATOLOGY METHOD 01/14/2025 3:03 AM EDT [facility] MCV 88 79 - 98 fL LAB HEMATOLOGY METHOD 01/14/2025 3:03 AM EDT [facility] MCH 26.3 26.0 - 32.0 pg LAB HEMATOLOGY METHOD 01/14/2025 3:03 AM EDT [facility] MCHC 30.0(L) 30.7 - 35.5 g/dL LAB HEMATOLOGY METHOD 01/14/2025 3:03 AM EDT [facility] RDW 15.8(H) 11.5 - 14.5 % LAB HEMATOLOGY METHOD 01/14/2025 3:03 AM EDT [facility] MPV 9.6 8.8 - 12.5 fL LAB HEMATOLOGY METHOD 01/14/2025 3:03 AM EDT [facility] nRBC 0.0 <=0.0 per 100 WBCs LAB HEMATOLOGY METHOD 01/14/2025 3:03 AM EDT [facility] Blood Venous blood specimen / Unknown Venipuncture / Unknown 01/14/2025 2:44 AM EDT 01/14/2025 2:50 AM EDT us Neo Viera MD LAB BLOOD ORDERABLES Final Resul t [facility] [address] [place] [address] * (ABNORMAL) Basic Metabolic Panel, Plasma (01/14/2025 2:44 AM EDT) Glucose, Plasma 266(H) 74 - 99 mg/dL 01/14/2025 3:21 AM EDT [facility] BUN, Plasma 27(H) 7 - 21 mg/dL 01/14/2025 3:21 AM EDT [facility] Creatinine, Plasma 1.09 0.60 - 1.10 mg/dL 01/14/2025 3:21 AM EDT [facility] BUN/Creatinine Ratio 25 01/14/2025 3:21 AM EDT [facility] Sodium, Plasma 133(L) 136 - 145 mmol/L 01/14/2025 3:21 AM EDT [facility] Potassium, Plasma 5.2(H) 3.6 - 4.9 mmol/L 01/14/2025 3:21 AM EDT [facility] Chloride, Plasma 96(L) 97 - 107 mmol/L 01/14/2025 3:21 AM EDT [facility] CO2, Plasma 26 22 - 29 mmol/L 01/14/2025 3:21 AM EDT [facility] Anion Gap 11 6 - 16 mmol/L 01/14/2025 3:21 AM EDT [facility] Total Calcium, Plasma 9.5 8.9 - 10.2 mg/dL 01/14/2025 3:21 AM EDT [facility] eGFRcr 59.7 mL/min/1.7 3m*2 01/14/2025 3:21 AM EDT [facility] Comment:Reported eGFRcr in m L/min/1.73m2 is based the CKD-EPI 2020 equation that does not use a race coefficient. Blood Venous blood specimen / Unknown Venipuncture / Unknown 01/14/2025 2:44 AM EDT 01/14/2025 2:49 AM EDT us Neo Viera MD LAB BLOOD ORDERABLES Final Resul t [facility] [address] [place] [address] * (ABNORMAL) POCT glucose meter (01/13/2025 7:33 PM EDT) [facility] POCT Glucose 322(H) 74 - 99 [...] Comment 01/13/2025 7:35 PM EDT HEALTHCARE LAB Materials Clerk ID Shu Clinton 01/13/2025 7:35 PM EDT HEALTHCARE LAB Device ID [id number] 01/13/2025 7:35 PM EDT HEALTHCARE LAB Specimen Type POC Capillary 01/13/2025 7:35 PM EDT [facility]ALTH[facility]ARE LAB Blood Capillary blood specimen / Unknown 01/13/2025 7:33 PM EDT 01/13/2025 7:35 PM EDT Neo Viera MD LAB POINT OF CARE TE ST DOCKED DEVICE UNSOLICITED RESULTS Final Result [facility]ARE LAB [address] [place] [address] * (ABNORMAL) POCT glucose meter (01/13/2025 6:03 PM EDT) [facility] POCT Glucose 366(H) 74 - 99 [...] 01/13/2025 6:06 PM EDT [facility] Materials Clerk ID Ev Trujillo 01/14/20 6:06 PM EDT [facility] Device ID [id number] 01/13/2025 6:06 PM EDT [facility]ALTHCARE LAB Specimen Type POC Capillary 01/13/2025 6:06 PM EDT [facility]ARE LAB Blood Capillary blood specimen / Unknown 01/13/2025 6:03 PM EDT 01/13/2025 6:06 PM EDT Neo Viera MD LAB POINT OF CARE TE ST DOCKED DEVICE UNSOLICITED RESULTS Final Result Performing Organization Address City/[facility] Co de Phone Number [facility] [address] [place] [address] * (ABNORMAL) POCT glucose meter (01/13/2025 11:46 [...] Comment 01/13/2025 11:48 AM EDT HEALTHCARE LAB Materials Clerk ID Ev Trujillo 01/14/20 11:48 AM EDT HEALTHCARE LAB Device ID [id number] 01/13/2025 11:48 AM EDT HEALTHCARE LAB Specimen Type POC Capillary 01/13/2025 11:48 AM EDT [facility]ARE LAB Blood Capillary blood specimen / Unknown 01/13/2025 11:46 AM EDT 01/13/2025 11:48 AM EDT Neo Viera MD LAB POINT OF CARE TE ST DOCKED DEVICE UNSOLICITED RESULTS Final Result Performing Organization Address City/[facility]/ZIP Co de Phone Number [facility] [address] [place] [address] * (ABNORMAL) POCT glucose meter (01/13/2025 9:47 [...] Comment 01/13/2025 9:49 AM EDT HEALTHCARE LAB Materials Clerk ID Radha Carvajal 01/13/2025 9:49 AM EDT HEALTHCARE LAB Device ID [id number] 01/13/2025 9:49 AM EDT HEALTHCARE LAB Specimen Type POC Capillary 01/13/2025 9:49 AM EDT [facility]ALTH[facility]ARE LAB Blood Capillary blood specimen / Unknown 01/13/2025 9:47 AM EDT 01/13/2025 9:49 AM EDT us Neo Viera MD LAB POINT OF CARE TE ST DOCKED DEVICE UNSOLICITED RESULTS Final Result [facility] [address] [place] [address] * Surgical Pathology Exam (01/13/2025 9:03 AM EDT) Case Report Surgical Pathology Case: [id number] Authorizing Provider: Mat Bowles MD Collected: 01/13/2025 0903 Ordering Location: [facility] Received: 01/13/2025 0947 Pathologist: Conrado Sanchez MD Specimen: Other (specify site), Endometrial tissue - permanent 01/16/2025 10:17 AM EDT [facility] Final Diagnosis ENDOMETRIUM, BIOPSY: - BENIGN ENDOMETRIUM WITH POLYP FORMATION AND EXTENSIVE TUBAL METAPLASIA. - NO EVIDENCE OF ATYPIA OR MALIGNANCY. 01/16/2025 10:17 AM EDT [facility] at 1017 EDT Clinical Information Abnormal uterine and vaginal bleeding, unspecified [N93.9] 01/16/2025 10:17 AM EDT [facility] Gross Description A. ENDOMETRIAL TISSUE - PERMANENT Received in formalin labeled endometrial tissue is an aggregate of pink-quinn soft tissue and red-brown hemorrhagic material measuring 2.8 x 1.3 x 0.4 cm. Entirely submitted in cassette A1. Cold Time: 1m Laisha Armendariz 01/16/2025 10:17 AM EDT [facility] Note: A resident was involved in the service. I attest I examined the relevant preparations for the specimens and confirmed the diagnosis or interpretation. 01/16/2025 10:17 AM EDT [facility] Tissue Topography unknown / Unknown 01/13/2025 9:03 AM EDT 01/13/2025 9:47 AM EDT Comment:Pre-op diagnosis: Abnormal uterine and vaginal bleeding, unspecified [N93.9] us Mat Bowles MD LAB PATHOLOGY ORDERABLES Final R esult Performing Organization Address City/[facility]/ZIP Co de Phone Number [facility] [address] [place] [address] * POCT , URINE (01/13/2025 7:28 AM EDT) POCT Test, Urine Negative Males and Non- Females: Negative 01/13/2025 7:35 AM EDT HEALTHCARE LAB Materials Clerk ID Erin Jovel 01/13/2025 7:35 AM EDT HEALTHCARE LAB Device ID [id number] 01/13/2025 7:35 AM EDT [facility] Urine Urine specimen obtained by clean catch procedure / Unknown 01/13/2025 7:28 AM EDT 01/13/2025 7:35 AM EDT us Neo Viera MD LAB POINT OF CARE TE ST DOCKED DEVICE UNSOLICITED RESULTS Final Result Performing Organization Address City/[facility] Co de Phone Number [facility] [address] [place] [address] * (ABNORMAL) POCT glucose meter (01/13/2025 6:34 AM EDT) POCT Glucose 116(H) 74 - 99 mg/dL [...] 01/13/2025 6:36 AM EDT [facility] Materials Clerk ID Hieu Melvin 01/14/20 6:36 AM EDT [facility] Device ID [id number] 01/13/2025 6:36 AM EDT [facility] Specimen Type POC Capillary 01/13/2025 6:36 AM EDT [facility]ARE LAB Blood Capillary blood specimen / Unknown 01/13/2025 6:34 AM EDT 01/13/2025 6:36 AM EDT us Neo Viera MD LAB POINT OF CARE TE ST DOCKED DEVICE UNSOLICITED RESULTS Final Result Performing Organization Address City/[facility] Co de Phone Number [facility] [address] [place] [address] * (ABNORMAL) POCT glucose meter (01/12/2025 8:53 PM EDT) [facility] POCT Glucose 134(H) 74 - 99 [...] for testing. Comment 01/12/2025 8:55 PM EDT HEALTHCARE LAB Materials Clerk ID Neela Wilson 01/12/2025 8:55 PM EDT HEALTHCARE LAB Device ID [id number] 01/12/2025 8:55 PM EDT [facility] Specimen Type POC Capillary 01/12/2025 8:55 PM EDT [facility] Blood Capillary blood specimen / Unknown 01/12/2025 8:53 PM EDT 01/12/2025 8:55 PM EDT us Neo Viera MD LAB POINT OF CARE TE ST DOCKED DEVICE UNSOLICITED RESULTS Final Result Performing Organization Address City/[facility]/ZIP Co de Phone Number [facility] [address] [place] [address] * (ABNORMAL) POCT glucose meter (01/12/2025 5:09 [...] for testing. Comment 01/12/2025 5:12 PM EDT HEALTHCARE LAB Materials Clerk ID Alobwede Arcelia Mazariegos 01/12/2025 5:12 PM EDT HEALTHCARE LAB Device ID [id number] 01/12/2025 5:12 PM EDT [facility]ALTHCARE LAB Specimen Type POC Capillary 01/12/2025 5:12 PM EDT [facility] LAB Blood Capillary blood specimen / Unknown 01/12/2025 5:09 PM EDT 01/12/2025 5:12 PM EDT Neo Viera MD LAB POINT OF CARE TE ST DOCKED DEVICE UNSOLICITED RESULTS Final Result [facility] [address] [place] [address] * XR Shoulder Left 2+ Views (01/12/2025 [...] LAB HEMATOLOGY METHOD 01/12/2025 3:19 PM EDT [facility] RBC Count 3.41(L) 3.90 - 5.20 10*6/uL LAB HEMATOLOGY METHOD 01/12/2025 3:19 PM EDT [facility] HGB 9.0(L) 11.2 - 15.7 g/dL LAB HEMATOLOGY METHOD 01/12/2025 3:19 PM EDT [facility] HCT 30.0(L) 34.0 - 45.0 % LAB HEMATOLOGY METHOD 01/12/2025 3:19 PM EDT [facility] Platelet Count 363 155 - 369 10*3/uL LAB HEMATOLOGY METHOD 01/12/2025 3:19 PM EDT [facility] MCV 88 79 - 98 fL LAB HEMATOLOGY METHOD 01/12/2025 3:19 PM EDT [facility] MCH 26.4 26.0 - 32.0 pg LAB HEMATOLOGY METHOD 01/12/2025 3:19 PM EDT [facility] MCHC 30.0(L) 30.7 - 35.5 g/dL LAB HEMATOLOGY METHOD 01/12/2025 3:19 PM EDT [facility] RDW 15.9(H) 11.5 - 14.5 % LAB HEMATOLOGY METHOD 01/12/2025 3:19 PM EDT [facility] MPV 9.8 8.8 - 12.5 fL LAB HEMATOLOGY METHOD 01/12/2025 3:19 PM EDT [facility] nRBC 0.0 <=0.0 per 100 WBCs LAB HEMATOLOGY METHOD 01/12/2025 3:19 PM EDT [facility] Blood Venous blood specimen / Unknown Venipuncture / Unknown 01/12/2025 2:34 PM EDT 01/12/2025 2:55 PM EDT us Neo Viera MD LAB BLOOD ORDERABLES Final Resul t [facility] [address] [place] [address] * (ABNORMAL) Basic Metabolic Panel, Plasma (01/12/2025 2:34 PM EDT) Glucose, Plasma 235(H) 74 - 99 mg/dL 01/12/2025 3:55 PM EDT [facility] BUN, Plasma 18 7 - 21 mg/dL 01/12/2025 3:55 PM EDT [facility] Creatinine, Plasma 0.93 0.60 - 1.10 mg/dL 01/12/2025 3:55 PM EDT [facility] BUN/Creatinine Ratio 19 01/12/2025 3:55 PM EDT [facility] Sodium, Plasma 134(L) 136 - 145 mmol/L 01/12/2025 3:55 PM EDT [facility] Potassium, Plasma 5.0(H) 3.6 - 4.9 mmol/L 01/12/2025 3:55 PM EDT [facility] Chloride, Plasma 96(L) 97 - 107 mmol/L 01/12/2025 3:55 PM EDT [facility] CO2, Plasma 27 22 - 29 mmol/L 01/12/2025 3:55 PM EDT [facility] Anion Gap 11 6 - 16 mmol/L 01/12/2025 3:55 PM EDT [facility] Total Calcium, Plasma 9.7 8.9 - 10.2 mg/dL 01/12/2025 3:55 PM EDT [facility] eGFRcr 72.3 mL/min/1.7 3m*2 01/12/2025 3:55 PM EDT [facility] Comment:Reported eGFRcr in m L/min/1.73m2 is based the CKD-EPI 2020 equation that does not use a race coefficient. Blood Venous blood specimen / Unknown Venipuncture / Unknown 01/12/2025 2:34 PM EDT 01/12/2025 3:25 PM EDT us Neo Viera MD LAB BLOOD ORDERABLES Final Resul t [facility] [address] [place] [address] * Type and Screen (01/12/2025 2:34 PM EDT) Pathologist [facility] ABO/Rh O Negative 01/12/2025 1:53 PM EDT BLOOD BANK Antibody Screen Negative 01/12/2025 1:53 PM EDT BLOOD BANK Specimen Expiration 01/15/2025 23:59 01/12/2025 1:53 PM EDT BLOOD BANK Blood Venous blood specimen / Unknown Venipuncture / Unknown 01/12/2025 2:34 PM EDT 01/12/2025 2:42 PM EDT Susan Saha AL LAB BLOOD BANK TEST ORDERABLES F inal Result BLOOD BANK [address] * (ABNORMAL) POCT glucose meter (01/12/2025 11:21 AM EDT) [facility] POCT Glucose 185(H) 74 - 99 [...] for testing. Comment 01/12/2025 11:32 AM EDT HEALTHCARE LAB Materials Clerk ID Alobwede Keeley Adry Turcioszabeth 01/12/2025 11:32 AM EDT HEALTHCARE LAB Device ID [id number] 01/12/2025 11:32 AM EDT [facility] Specimen Type POC Capillary 01/12/2025 11:32 AM EDT [facility] Blood Capillary blood specimen / Unknown 01/12/2025 11:21 AM EDT 01/12/2025 11:32 AM EDT Neo Viera MD LAB POINT OF CARE TE ST DOCKED DEVICE UNSOLICITED RESULTS Final Result [facility] [address] [place] [address] * (ABNORMAL) POCT glucose meter (01/12/2025 5:23 AM EDT) POCT Glucose 116(H) 74 - 99 mg/dL [...] for testing. Comment 01/12/2025 5:26 AM EDT HEALTHCARE LAB Materials Clerk ID Darlyn Lake 01/12/2025 5:26 AM EDT [facility] Device ID [id number] 01/12/2025 5:26 AM EDT HEALTHCARE LAB Specimen Type POC Capillary 01/12/2025 5:26 AM EDT HEALTHCARE LAB Blood Capillary blood specimen / Unknown 01/12/2025 5:23 AM EDT 01/12/2025 5:26 AM EDT Neo Viera MD LAB POINT OF CARE TE ST DOCKED DEVICE UNSOLICITED RESULTS Final Result Performing Organization Address City/State/[facility] Co de Phone Number HEALTHCARE LAB [address] [place] [address] * (ABNORMAL) POCT glucose meter (01/11/2025 11:20 PM EDT) Pathologist [facility] POCT Glucose 187(H) 74 - 99 mg/dL [...] 01/11/2025 11:48 PM EDT [facility] Materials Clerk ID Darlyn Lake 01/11/2025 11:48 PM EDT [facility] Device ID [id number] 01/11/2025 11:48 PM EDT [facility] Specimen Type POC Capillary 01/11/2025 11:48 PM EDT [facility] Blood Capillary blood specimen / Unknown 01/11/2025 11:20 PM EDT 01/11/2025 11:48 PM EDT Neo Viera MD LAB POINT OF CARE TE ST DOCKED DEVICE UNSOLICITED RESULTS Final Result [facility] [address] [place] [address] * (ABNORMAL) POCT glucose meter (01/11/2025 9:10 PM EDT) POCT Glucose 190(H) 74 - 99 mg/dL 01/11/2025 9:12 PM EDT [facility] Comment:Accuracy of [...] Comment 01/11/2025 9:12 PM EDT HEALTHCARE LAB Materials Clerk ID LakeDarlyn 01/11/2025 9:12 PM EDT HEALTHCARE LAB Device ID [id number] 01/11/2025 9:12 PM EDT [facility] Specimen Type POC Capillary 01/11/2025 9:12 PM EDT [facility] Blood Capillary blood specimen / Unknown 01/11/2025 9:10 PM EDT 01/11/2025 9:12 PM EDT Neo Viera MD LAB POINT OF CARE TE ST DOCKED DEVICE UNSOLICITED RESULTS Final Result [facility] [address] [place] [address] * (ABNORMAL) POCT glucose meter (01/11/2025 5:02 [...] Comment 01/11/2025 5:05 PM EDT HEALTHCARE LAB Materials Clerk ID Felicia Mai 01/11/2025 5:05 PM EDT HEALTHCARE LAB Device ID [id number] 01/11/2025 5:05 PM EDT HEALTHCARE LAB Specimen Type POC Capillary 01/11/2025 5:05 PM EDT [facility]ALTH[facility]ARE LAB Blood Capillary blood specimen / Unknown 01/11/2025 5:02 PM EDT 01/11/2025 5:05 PM EDT us Neo Viera MD LAB POINT OF CARE TE ST DOCKED DEVICE UNSOLICITED RESULTS Final Result [facility] [address] [place] [address] * (ABNORMAL) POCT glucose meter (01/11/2025 11:33 AM EDT) [facility] Signature POCT Glucose 199(H) 74 - 99 mg/dL 01/11/2025 11:36 AM EDT HEALTHCARE LAB Comment:Accuracy of a [...] for testing. Comment 01/11/2025 11:36 AM EDT HEALTHCARE LAB Materials Clerk ID Felicia Mai 01/11/2025 11:36 AM EDT HEALTHCARE LAB Device ID [id number] 01/11/2025 11:36 AM EDT HEALTHCARE LAB Specimen Type POC Capillary 01/11/2025 11:36 AM EDT [facility]ALTH[facility]ARE LAB Blood Capillary blood specimen / Unknown 01/11/2025 11:33 AM EDT 01/11/2025 11:36 AM EDT us Neo Viera MD LAB POINT OF CARE TE ST DOCKED DEVICE UNSOLICITED RESULTS Final Result Performing Organization Address City/State/[facility] Co de Phone Number [facility] [address] [place] [address] * (ABNORMAL) Basic Metabolic Panel, Plasma (01/11/2025 11:29 AM EDT) Glucose, Plasma 204(H) 74 - 99 mg/dL 01/11/2025 12:19 PM EDT [facility] BUN, Plasma 15 7 - 21 mg/dL 01/11/2025 12:19 PM EDT [facility] Creatinine, Plasma 0.66 0.60 - 1.10 mg/dL 01/11/2025 12:19 PM EDT [facility] BUN/Creatinine Ratio 23 01/11/2025 12:19 PM EDT [facility] Sodium, Plasma 134(L) 136 - 145 mmol/L 01/11/2025 12:19 PM EDT [facility] Potassium, Plasma 5.1(H) 3.6 - 4.9 mmol/L 01/11/2025 12:19 PM EDT [facility] Chloride, Plasma 98 97 - 107 mmol/L 01/11/2025 12:19 PM EDT [facility] CO2, Plasma 27 22 - 29 mmol/L 01/11/2025 12:19 PM EDT [facility] Anion Gap 9 6 - 16 mmol/L 01/11/2025 12:19 PM EDT [facility] Total Calcium, Plasma 8.9 8.9 - 10.2 mg/dL 01/11/2025 12:19 PM EDT [facility] eGFRcr 103.1 mL/min/1.7 3m*2 01/11/2025 12:19 PM EDT [facility] Comment:Reported eGFRcr in m L/min/1.73m2 is based the CKD-EPI 2020 equation that does not use a race coefficient. Blood Venous blood specimen / Unknown Venipuncture / Unknown 01/11/2025 11:29 AM EDT 01/11/2025 11:47 AM EDT us Neo Viera MD LAB BLOOD ORDERABLES Final Resul t [facility] [address] [place] [address] * (ABNORMAL) CBC W/O Differential (01/11/2025 11:29 AM EDT) WBC Count 10.64(H) 3.70 - 10.30 10*3/uL LAB HEMATOLOGY METHOD 01/11/2025 12:05 PM EDT [facility] RBC Count 3.20(L) 3.90 - 5.20 10*6/uL LAB HEMATOLOGY METHOD 01/11/2025 12:05 PM EDT [facility] HGB 8.3(L) 11.2 - 15.7 g/dL LAB HEMATOLOGY METHOD 01/11/2025 12:05 PM EDT [facility] HCT 28.0(L) 34.0 - 45.0 % LAB HEMATOLOGY METHOD 01/11/2025 12:05 PM EDT [facility] Platelet Count 341 155 - 369 10*3/uL LAB HEMATOLOGY METHOD 01/11/2025 12:05 PM EDT [facility] MCV 88 79 - 98 fL LAB HEMATOLOGY METHOD 01/11/2025 12:05 PM EDT [facility] MCH 25.9(L) 26.0 - 32.0 pg LAB HEMATOLOGY METHOD 01/11/2025 12:05 PM EDT [facility] MCHC 29.6(L) 30.7 - 35.5 g/dL LAB HEMATOLOGY METHOD 01/11/2025 12:05 PM EDT [facility] RDW 15.9(H) 11.5 - 14.5 % LAB HEMATOLOGY METHOD 01/11/2025 12:05 PM EDT [facility] MPV 9.8 8.8 - 12.5 fL LAB HEMATOLOGY METHOD 01/11/2025 12:05 PM EDT [facility] nRBC 0.0 <=0.0 per 100 WBCs LAB HEMATOLOGY METHOD 01/11/2025 12:05 PM EDT [facility] Blood Venous blood specimen / Unknown Venipuncture / Unknown 01/11/2025 11:29 AM EDT 01/11/2025 11:56 AM EDT us Neo Viera MD LAB BLOOD ORDERABLES Final Resul t [facility] [address] [place] [address] * ECHO, ADULT TRANSTHORACIC COMPLETE W/ CONTRAST (01/11/2025 11:28 AM EDT) BSA 2.70 m2 [facility]SC[facility] Height 160.0 [facility] ISC[facility] Weight 195.5 [facility] ISCV LVIDd 44 mm AMNNY ISCV LVIDs 31 mm [facility] ISCV IVSd 9 mm [facility] ISCV LVPWd 10 mm MAN[facility] ISCV LV MASS(C)D 137 g MANNY ISCV [facility] CV ECHO LV MASS INDEX 51 g/m2 [...] is no recent study available for direct xfkd-lw-xlwn comparison. Left Ventricle The left ventricle is [...] is no recent study available for direct ddza-dx-piac comparison. Elvia Baldwin RECOVERY UNIT OPERATOR, DNP CV ECHO PROCEDURES Fi nal Result * (ABNORMAL) POCT glucose meter (01/11/2025 8:18 AM EDT) POCT Glucose 119(H) 74 - 99 mg/dL 01/11/2025 8:19 AM EDT [facility] Comment:Accuracy of a glucos e result [...] 01/11/2025 8:19 AM EDT [facility] Materials Clerk ID Bi Saini 025 8:19 AM EDT [facility] Device ID [id number] 01/11/2025 8:19 AM EDT [facility] Specimen Type POC Capillary 01/11/2025 8:19 AM EDT HEALTHCARE LAB Blood Capillary blood specimen / Unknown 01/11/2025 8:18 AM EDT 01/11/2025 8:19 AM EDT us Neo Viera MD LAB POINT OF CARE TE ST DOCKED DEVICE UNSOLICITED RESULTS Final Result Performing Organization Address [facility] Co de Phone Number [facility] [address] [place] [address] * (ABNORMAL) POCT glucose meter (01/11/2025 5:10 [...] for testing. Comment 01/11/2025 5:13 AM EDT [facility] Materials Clerk ID Darlyn Lake 01/11/2025 5:13 AM EDT HEALTHCARE LAB Device ID [id number] 01/11/2025 5:13 AM EDT HEALTHCARE LAB Specimen Type POC Capillary 01/11/2025 5:13 AM EDT [facility]ALTH[facility]ARE LAB Blood Capillary blood specimen / Unknown 01/11/2025 5:10 AM EDT 01/11/2025 5:13 AM EDT us Neo Viera MD LAB POINT OF CARE TE ST DOCKED DEVICE UNSOLICITED RESULTS Final Result Performing Organization Address City/[facility] de Phone Number [facility] [address] [place] [address] * (ABNORMAL) POCT glucose meter (01/11/2025 12:02 AM EDT) POCT Glucose 184(H) 74 - [...] 01/11/2025 12:13 AM EDT [facility] Materials Clerk ID Darlyn Lkae 01/11/2025 12:13 AM EDT [facility] Device ID [id number] 01/11/2025 12:13 AM EDT [facility] Specimen Type POC Capillary 01/11/2025 12:13 AM EDT HEALTHCARE LAB Blood Capillary blood specimen / Unknown 01/11/2025 12:02 AM EDT 01/11/2025 12:13 AM EDT Neo Viera MD LAB POINT OF CARE TE ST DOCKED DEVICE UNSOLICITED RESULTS Final Result Performing Organization Address City/State/[facility] Co de Phone Number [facility] [address] [place] [address] * (ABNORMAL) POCT glucose meter (01/10/2025 7:31 PM EDT) [facility] POCT Glucose 286(H) 74 - 99 [...] 01/10/2025 7:39 PM EDT [facility] Materials Clerk ID Darlyn Lake 01/10/2025 7:39 PM EDT [facility] Device ID [id number] 01/10/2025 7:39 PM EDT [facility] Specimen Type POC Capillary 01/10/2025 7:39 PM EDT [facility] Blood Capillary blood specimen / Unknown 01/10/2025 7:31 PM EDT 01/10/2025 7:39 PM EDT Neo Viera MD LAB POINT OF CARE TE ST DOCKED DEVICE UNSOLICITED RESULTS Final Result Performing Organization Address [facility] de Phone Number [facility] [address] [place] [address] * (ABNORMAL) POCT glucose meter (01/10/2025 4:58 PM EDT) Pathologist [facility] POCT Glucose 291(H) 74 - 99 mg/dL [...] for testing. Comment 01/10/2025 5:00 PM EDT [facility] Materials Clerk ID Vicki White 5:00 PM EDT [facility] Device ID [id number] 01/10/2025 5:00 PM EDT [facility] Specimen Type POC Capillary 01/10/2025 5:00 PM EDT [facility] Blood Capillary blood specimen / Unknown 01/10/2025 4:58 PM EDT 01/10/2025 5:00 PM EDT Neo Viera MD LAB POINT OF CARE TE ST DOCKED DEVICE UNSOLICITED RESULTS Final Result Performing Organization Address City/[facility] de Phone Number [facility] [address] [place] [address] * (ABNORMAL) POCT glucose meter (01/10/2025 11:42 AM EDT) Pathologist [facility] POCT Glucose 275(H) 74 - 99 mg/dL [...] 01/10/2025 12:43 PM EDT [facility] Materials Clerk ID Slime Campos 01/10/2025 12:43 PM EDT [facility] Device ID [id number] 01/10/2025 12:43 PM EDT [facility] Specimen Type POC Capillary 01/10/2025 12:43 PM EDT [facility]ALTH[facility]ARE LAB Blood Capillary blood specimen / Unknown 01/10/2025 11:42 AM EDT 01/10/2025 12:43 PM EDT us Neo Viera MD LAB POINT OF CARE TE ST DOCKED DEVICE UNSOLICITED RESULTS Final Result Performing Organization Address [facility] Co de Phone Number HEALTHCARE LAB [address] [place] [address] * (ABNORMAL) POCT glucose meter (01/10/2025 7:44 AM EDT) POCT Glucose 120(H) 74 - 99 mg/dL [...] for testing. Comment 01/10/2025 7:46 AM EDT [facility] Materials Clerk ID Gabe Craig 01/10/2025 7:46 AM EDT [facility] Device ID [id number] 01/10/2025 7:46 AM EDT [facility] Specimen Type POC Capillary 01/10/2025 7:46 AM EDT [facility] Blood Capillary blood specimen / Unknown 01/10/2025 7:44 AM EDT 01/10/2025 7:46 AM EDT us Neo Viera MD LAB POINT OF CARE TE ST DOCKED DEVICE UNSOLICITED RESULTS Final Result Performing Organization Address [facility]/ZIP Co de Phone Number [facility] [address] [place] [address] * (ABNORMAL) CBC W/O Differential (01/10/2025 4:57 AM EDT) WBC Count 8.64 3.70 - 10.30 10*3/uL LAB HEMATOLOGY METHOD 01/10/2025 6:34 AM EDT [facility] RBC Count 2.92(L) 3.90 - 5.20 10*6/uL LAB HEMATOLOGY METHOD 01/10/2025 6:34 AM EDT [facility] HGB 7.7(L) 11.2 - 15.7 g/dL LAB HEMATOLOGY METHOD 01/10/2025 6:34 AM EDT [facility] HCT 25.9(L) 34.0 - 45.0 % LAB HEMATOLOGY METHOD 01/10/2025 6:34 AM EDT [facility] Platelet Count 317 155 - 369 10*3/uL LAB HEMATOLOGY METHOD 01/10/2025 6:34 AM EDT [facility] MCV 89 79 - 98 fL LAB HEMATOLOGY METHOD 01/10/2025 6:34 AM EDT [facility] LAB MCH 26.4 26.0 - 32.0 pg LAB HEMATOLOGY METHOD 01/10/2025 6:34 AM EDT [facility] MCHC 29.7(L) 30.7 - 35.5 g/dL LAB HEMATOLOGY METHOD 01/10/2025 6:34 AM EDT [facility] RDW 16.0(H) 11.5 - 14.5 % LAB HEMATOLOGY METHOD 01/10/2025 6:34 AM EDT [facility] MPV 10.2 8.8 - 12.5 fL LAB HEMATOLOGY METHOD 01/10/2025 6:34 AM EDT [facility] nRBC 0.0 <=0.0 per 100 WBCs LAB HEMATOLOGY METHOD 01/10/2025 6:34 AM EDT [facility] Blood Venous blood specimen / Unknown Venipuncture / Unknown 01/10/2025 4:57 AM EDT 01/10/2025 6:22 AM EDT us John Denton MD LAB BLOOD ORDERABLES Final Re sult [facility] [address] [place] [address] * (ABNORMAL) POCT glucose meter (01/09/2025 8:13 [...] Comment 01/09/2025 8:16 PM EDT [facility]ARE LAB Materials Clerk ID Daniel Lemus 8:16 PM EDT [facility]ALTH[facility]ARE LAB Device ID [id number] 01/09/2025 8:16 PM EDT [facility]ALTH[facility]ARE LAB Specimen Type POC Capillary 01/09/2025 8:16 PM EDT [facility] LAB Blood Capillary blood specimen / Unknown 01/09/2025 8:13 PM EDT 01/09/2025 8:16 PM EDT John Denton MD LAB POINT OF CARE TE ST DOCKED DEVICE UNSOLICITED RESULTS Final Result [facility] [address] [place] [address] * US Pelvis Transvaginal (01/09/2025 6:06 PM [...] - 99 mg/dL 01/09/2025 4:36 PM EDT [facility] Comment:Accuracy of a glucos e result [...] for testing. Comment 01/09/2025 4:36 PM EDT [facility] Materials Clerk ID Slime Campos 01/09/2025 4:36 PM EDT [facility] Device ID [id number] 01/09/2025 4:36 PM EDT [facility] Specimen Type POC Capillary 01/09/2025 4:36 PM EDT [facility] Blood Capillary blood specimen / Unknown 01/09/2025 4:34 PM EDT 01/09/2025 4:36 PM EDT us Madhav Lemus DO LAB POINT OF CARE TE ST DOCKED DEVICE UNSOLICITED RESULTS Final Result [facility] [address] [place] [address] * (ABNORMAL) POCT glucose meter (01/09/2025 11:51 [...] 01/09/2025 11:53 AM EDT [facility] Materials Clerk ID Onofre Stallworth 01/09/2025 11:53 AM EDT [facility] Device ID [id number] 01/09/2025 11:53 AM EDT [facility] LAB Specimen Type POC Capillary 01/09/2025 11:53 AM EDT [facility] LAB Blood Capillary blood specimen / Unknown 01/09/2025 11:51 AM EDT 01/09/2025 11:53 AM EDT us Madhav Lemus DO LAB POINT OF CARE TE ST DOCKED DEVICE UNSOLICITED RESULTS Final Result Performing Organization Address City/State/[facility] Co de Phone Number HEALTHCARE LAB [address] [place], [place] [id number] * VAS US Venous Duplex Lower Extremity [...] Roni Flores MD on 01/09/2025 7:49 PM us Elvia Baldwin RECOVERY UNIT OPERATOR, DNP CV VASCULAR PROCEDURE S Final Result * (ABNORMAL) Hemoglobin and Hematocrit, Blood (01/09/2025 10:27 AM EDT) HGB 7.7(L) 11.2 - 15.7 g/dL LAB HEMATOLOGY METHOD 01/09/2025 10:58 AM EDT [facility] HCT 25.3(L) 34.0 - 45.0 % LAB HEMATOLOGY METHOD 01/09/2025 10:58 AM EDT [facility] Blood Venous blood specimen / Unknown Venipuncture / Unknown 01/09/2025 10:27 AM EDT 01/09/2025 10:42 AM EDT us Neela Alexis MD LAB BLOOD ORDERABLES Final Resu lt Performing Organization Address [facility] Co de Phone Number [facility] [address] [place] [address] * Cortisol (01/09/2025 8:38 AM EDT) Pathologist [facility] Cortisol 11.20 Before 10am: 3.7 - 19.4. After 5pm: 2.9 - 17.3 ug/dL 01/09/2025 10:00 AM EDT [facility] Comment:Testing performed on Guzman Esthetician Facialist, standardized against FDC Reference Standard concentration values assigned by LC-MS/MS and verified by BCR 192 and BCR 193 certified reference materials. Blood Venous blood specimen / Unknown Venipuncture / Unknown 01/09/2025 8:38 AM EDT 01/09/2025 8:45 AM EDT us Neela Alexis MD LAB REF LAB BLOOD AND FLUID ORD Final Result Performing Organization Address City/[facility]/ZIP Co de Phone Number [facility] [address] [place] [address] * Transfuse RBC (01/09/2025 6:52 AM EDT) us Neela Alexis MD BLOOD TRANSFUSION ORDERABLES Fi nal Result * Transfuse RBC: 1 Units (01/09/2025 6:52 AM EDT) us Neela Alexis MD BLOOD TRANSFUSION ORDERABLES Fi nal Result * (ABNORMAL) Troponin T, High Sensitivity, 2 Hour, Plasma (01/09/2025 6:29 AM EDT) [facility] Troponin T, High Sensitivity, 2 Hour 16(H) <14 ng/L 01/09/2025 6:58 AM EDT [facility] Troponin Delta 7 <10 ng/L 01/09/2025 6:58 AM EDT [facility] Troponin Delta Interpretation Not Significant 01/09/2025 6:58 AM EDT [facility] Comment:Not Significant. No acute change in troponin observed between the baseline and 2 hour samples. Blood Venous blood specimen / Unknown Venipuncture / Unknown 01/09/2025 6:29 AM EDT 01/09/2025 6:36 AM EDT us Neela Alexis MD LAB BLOOD ORDERABLES Final Resu lt [facility] [address] [place] [address] * (ABNORMAL) POCT glucose meter (01/09/2025 5:11 AM EDT) [facility] POCT Glucose 115(H) 74 - 99 mg/dL 01/09/2025 5:12 AM EDT [facility] Comment:Accuracy of [...] for testing. Comment 01/09/2025 5:12 AM EDT HEALTHCARE LAB Materials Clerk ID Maryjane Johnston 5:12 AM EDT [facility]ALTHCARE LAB Device ID [id number] 01/09/2025 5:12 AM EDT [facility] LAB Specimen Type POC Capillary 01/09/2025 5:12 AM EDT [facility] Blood Capillary blood specimen / Unknown 01/09/2025 5:11 AM EDT 01/09/2025 5:12 AM EDT us Neela Alexis MD LAB POINT OF CARE TE ST DOCKED DEVICE UNSOLICITED RESULTS Final Result [facility] [address] [place] [address] * PERIPHERAL IV (SMARTFORM LINK) (01/09/2025 4:20 AM EDT) Narrative John Washington RN - 01/09/2025 4:20 AM EDT John Washington RN 01/09/2025 4:30 AM Insert peripheral IV Performed by: John Washington [...] risk) (01/09/2025 2:40 AM EDT) Product Code [id number] CH BLOO D BANK Dispense Status Transfused BLOOD BANK Blood Expiration Date [id number] BLOOD BANK Unit Number [id number] B LOOD BANK Product Blood Type 9500 BLOOD BANK Blood Type O- BLOOD BANK Crossmatch Compatible BLOOD BANK Other us Neela Alexis MD BLOOD BANK PRODUCT ORDERABLES F inal Result BLOOD BANK [address] [place] [address], * (ABNORMAL) Hemoglobin and hematocrit, blood (01/09/2025 1:40 AM EDT) HGB 6.9(L) 11.2 - 15.7 g/dL LAB HEMATOLOGY METHOD 01/09/2025 1:53 AM EDT [facility] HCT 23.4(L) 34.0 - 45.0 % LAB HEMATOLOGY METHOD 01/09/2025 1:53 AM EDT [facility] Blood Venous blood specimen / Unknown Venipuncture / Unknown 01/09/2025 1:40 AM EDT 01/09/2025 1:46 AM EDT Neela Alexis MD LAB BLOOD ORDERABLES Final Resu lt [facility] [address] [place] [address] * WA INSERT CATH,ART,PERCUT,SHORTTERM, HC INSERT CATH,ART,PERCUT,SHORTTERM (01/09/2025 1:30 AM EDT) Narrative Iveth Feng MD - 01/09/2025 1:30 AM EDT Iveth Feng MD 01/09/2025 1:49 AM Arterial line Performed by: Mario Davis DO Authorized by: Neela Alexis MD Consent: Consent obtained: Verbal and written Consent given by: Patient Risks, benefits, and alternatives were discussed: yes Risks discussed: Bleeding, infection, ischemia, repeat procedure and pain [place] protocol: Procedure explained and questions answered to [...] Metabolic Panel, Plasma (01/09/2025 1:06 AM EDT) [facility] Glucose, Plasma 198(H) 74 - 99 mg/dL 01/09/2025 1:49 AM EDT [facility] BUN, Plasma 31(H) 7 - 21 mg/dL 01/09/2025 1:49 AM EDT [facility] Creatinine, Plasma 0.86 0.60 - 1.10 mg/dL 01/09/2025 1:49 AM EDT [facility] BUN/Creatinine Ratio 36 01/09/2025 1:49 AM EDT [facility] Sodium, Plasma 138 136 - 145 mmol/L 01/09/2025 1:49 AM EDT [facility] Potassium, Plasma 5.3(H) 3.6 - 4.9 mmol/L 01/09/2025 1:49 AM EDT [facility] Chloride, Plasma 104 97 - 107 mmol/L 01/09/2025 1:49 AM EDT [facility] CO2, Plasma 28 22 - 29 mmol/L 01/09/2025 1:49 AM EDT [facility] Anion Gap 6 6 - 16 mmol/L 01/09/2025 1:49 AM EDT [facility] Total Calcium, Plasma 8.3(L) 8.9 - 10.2 mg/dL 01/09/2025 1:49 AM EDT [facility] Total Protein 6.0(L) 6.3 - 7.9 g/dL 01/09/2025 1:49 AM EDT [facility] Albumin, Plasma 3.0(L) 3.5 - 5.2 g/dL 01/09/2025 1:49 AM EDT [facility] AST, Plasma 19 10 - 35 U/L 01/09/2025 1:49 AM EDT [facility] ALT, Plasma 9(L) 10 - 35 U/L 01/09/2025 1:49 AM EDT [facility] Alkaline Phosphatase, Plasma 89 46 - 142 U/L 01/09/2025 1:49 AM EDT [facility] Total Bilirubin, Plasma <0.2(L) 0.2 - 1.1 mg/dL 01/09/2025 1:49 AM EDT [facility] eGFRcr 79.4 mL/min/1.7 3m*2 01/09/2025 1:49 AM EDT [facility] Comment:Reported eGFRcr in m L/min/1.73m2 is based the CKD-EPI 2020 equation that does not use a race coefficient. Blood Venous blood specimen / Unknown Venipuncture / Unknown 01/09/2025 1:06 AM EDT 01/09/2025 1:14 AM EDT us Neela Alexis MD LAB BLOOD ORDERABLES Final Resu lt [facility] [address] [place] [address] * (ABNORMAL) CBC W/O Differential (01/09/2025 1:06 AM EDT) WBC Count 8.14 3.70 - 10.30 10*3/uL LAB HEMATOLOGY METHOD 01/09/2025 1:21 AM EDT [facility] RBC Count 2.61(L) 3.90 - 5.20 10*6/uL LAB HEMATOLOGY METHOD 01/09/2025 1:21 AM EDT [facility] HGB 6.8(L) 11.2 - 15.7 g/dL LAB HEMATOLOGY METHOD 01/09/2025 1:21 AM EDT [facility] HCT 23.4(L) 34.0 - 45.0 % LAB HEMATOLOGY METHOD 01/09/2025 1:21 AM EDT [facility] Platelet Count 284 155 - 369 10*3/uL LAB HEMATOLOGY METHOD 01/09/2025 1:21 AM EDT [facility] MCV 90 79 - 98 fL LAB HEMATOLOGY METHOD 01/09/2025 1:21 AM EDT [facility] MCH 26.1 26.0 - 32.0 pg LAB HEMATOLOGY METHOD 01/09/2025 1:21 AM EDT [facility] MCHC 29.1(L) 30.7 - 35.5 g/dL LAB HEMATOLOGY METHOD 01/09/2025 1:21 AM EDT [facility] RDW 16.4(H) 11.5 - 14.5 % LAB HEMATOLOGY METHOD 01/09/2025 1:21 AM EDT [facility] MPV 9.9 8.8 - 12.5 fL LAB HEMATOLOGY METHOD 01/09/2025 1:21 AM EDT [facility] nRBC 0.0 <=0.0 per 100 WBCs LAB HEMATOLOGY METHOD 01/09/2025 1:21 AM EDT [facility] Blood Venous blood specimen / Unknown Venipuncture / Unknown 01/09/2025 1:06 AM EDT 01/09/2025 1:13 AM EDT us Neela Alexis MD LAB BLOOD ORDERABLES Final Resu lt Performing Organization Address City/[facility]/ZIP Co de Phone Number [facility] [address] [place] [address] * Ferritin (01/09/2025 1:06 AM EDT) Ferritin, Serum 42 13 - 150 ng/mL 01/09/2025 1:48 AM EDT [facility] Blood Venous blood specimen / Unknown Venipuncture / Unknown 01/09/2025 1:06 AM EDT 01/09/2025 1:13 AM EDT us Neela Alexis MD LAB BLOOD ORDERABLES Final Resu lt [facility] [address] [place] [address] * (ABNORMAL) Troponin T, High Sensitivity, 0 Hour Plasma, Reflex to 2 Hour (01/09/2025 1:06 AM EDT) Troponin T, High Sensitivity, 0 Hour 23(H) <14 ng/L 01/09/2025 1:49 AM EDT [facility] Blood Venous blood specimen / Unknown Venipuncture / Unknown 01/09/2025 1:06 AM EDT 01/09/2025 1:14 AM EDT us Neela Alexis MD LAB BLOOD ORDERABLES Final Resu lt Performing Organization Address City/[facility]/ZIP Co de Phone Number [facility] [address] [place] [address] * (ABNORMAL) POCT glucose meter (01/09/2025 12:20 AM EDT) POCT Glucose 210(H) 74 - 99 mg/dL [...] Comment 01/09/2025 12:21 AM EDT HEALTHCARE LAB Materials Clerk ID Maryjane Johnston 12:21 AM EDT HEALTHCARE LAB Device ID [id number] 01/09/2025 12:21 AM EDT [facility] Specimen Type POC Capillary 01/09/2025 12:21 AM EDT [facility] Blood Capillary blood specimen / Unknown 01/09/2025 12:20 AM EDT 01/09/2025 12:21 AM EDT us Neela Alexis MD LAB POINT OF CARE TE ST DOCKED DEVICE UNSOLICITED RESULTS Final Result Performing Organization Address City/[facility]/ZIP Co de Phone Number [facility]ALTH[facility]ARE LAB [address] [place] [address] * (ABNORMAL) POCT glucose meter (01/08/2025 5:56 PM EDT) POCT Glucose 216(H) 74 - 99 mg/dL [...] Comment 01/08/2025 5:57 PM EDT HEALTHCARE LAB Materials Clerk ID Onofre Stallworth 01/08/2025 5:57 PM EDT HEALTHCARE LAB Device ID [id number] 01/08/2025 5:57 PM EDT [facility]ALTH[facility]ARE LAB Specimen Type POC Capillary 01/08/2025 5:57 PM EDT [facility] LAB Blood Capillary blood specimen / Unknown 01/08/2025 5:56 PM EDT 01/08/2025 5:57 PM EDT us Neela Alexis MD LAB POINT OF CARE TE ST DOCKED DEVICE UNSOLICITED RESULTS Final Result Performing Organization Address City/[facility]/ZIP Co de Phone Number [facility]ARE LAB [address] [place] [address] * ECG Adult (01/08/2025 2:01 PM EDT) EKG DIAGNOSIS CLASS Abnormal MUSE ECG Ventricular Rate 91 BPM MUSE ECG Atrial Rate 91 BPM MUSE ECG WA Interval 186 ms MUSE ECG QRSD Interval 112 ms MUSE ECG QT Interval 366 ms MUSE ECG QTC Interval 450 ms MUSE ECG P [place] 66 degrees MUSE ECG R [place] 72 degrees MUSE ECG T Wave [place] -77 degrees MUSE ECG Diagnosis Normal sinus rhythm MUSE ECG Diagnosis Low voltage QRS MUSE ECG Diagnosis Cannot rule out Anteroseptal infarct , age undetermined MUSE ECG Diagnosis T wave abnormality, consider inferior ischemia MUSE ECG Diagnosis Abnormal ECG MUSE ECG Diagnosis MUSE ECG Diagnosis Confirmed by Ronal Shaikh ([id number]) on 01/09/2025 12:33:16 PM MUSE ECG 01/08/2025 2:01 PM EDT 01/09/2025 12:33 PM EDT us Neela Alexis MD ECG ORDERABLES Final Result MUSE ECG * (ABNORMAL) POCT arterial blood gas gem (01/08/2025 12:41 PM EDT) pH, Arterial 7.35 7.35 - 7.45 01/08/2025 12:42 PM EDT [facility] pCO2, Arterial 55(H) 35 - 48 mm Hg 01/08/2025 12:42 PM EDT [facility] pO2, Arterial 42(LL) 83 - 108 mm Hg 01/08/2025 12:42 PM EDT [facility] SO2, Arterial 71(L) 94 - 98 % 01/08/2025 12:42 PM EDT [facility] FIO2 36.0 % 01/08/2025 12:42 PM EDT [facility] Base Excess, Arterial 4.3(H) -2 - 3 mmol/L 01/08/2025 12:42 PM EDT [facility] HCO3, Arterial 30.4(H) 22 - 26 mmol/L 01/08/2025 12:42 PM EDT [facility] Total Hemoglobin, Arterial, Whole Blood 7.0(L) 11.2 - 15.7 g/dL 01/08/2025 12:42 PM EDT [facility] Hematocrit, Arterial 21.0(L) 34.0 - 45.0 % 01/08/2025 12:42 PM EDT [facility] Sodium, Arterial 139 136 - 145 mmol/L 01/08/2025 12:42 PM EDT [facility] Potassium, Arterial 4.7 3.6 - 4.9 mmol/L 01/08/2025 12:42 PM EDT [facility] Comment:Hemolyzed, result ma y be falsely increased. Chloride, Whole Blood 100 97 - 107 mmol/L 01/08/2025 12:42 PM EDT [facility] Glucose, Arterial 208(H) 74 - 99 mg/dL 01/08/2025 12:42 PM EDT [facility] Ionized Calcium, Arterial 4.4(L) 4.6 - 5.1 mg/dL 01/08/2025 12:42 PM EDT [facility] Lactate, Arterial 1.0 0.5 - 1.6 mmol/L 01/08/2025 12:42 PM EDT [facility] Body Temperature 37.0 Celsius 01/08/2025 12:42 PM EDT [facility] pH, Temp Corrected, Arterial 7.35 7.35 - 7.45 01/08/2025 12:42 PM EDT [facility] LAB pCO2, Temp Corrected, Arterial 55(H) 35 - 48 mm Hg 01/08/2025 12:42 PM EDT [facility] LAB pO2, Temp Corrected, Arterial 42(LL) 83 - 108 mm Hg 01/08/2025 12:42 PM EDT HEALTHCARE LAB Materials Clerk ID Susan Razo 01/08/2025 12:42 PM EDT [facility]ALTH[facility]ARE LAB Acknowledged, Notified By JEANETH 01/08/2025 12:42 PM EDT [facility]ARE LAB Critical Notify Time 1241 01/08/2025 12:42 PM EDT [facility] LAB Critical Readback Y 01/08/2025 12:42 PM EDT [facility] LAB Blood, Arterial Whole blood specimen / Unknown 01/08/2025 12:41 PM EDT 01/08/2025 12:42 PM EDT Neela Alexis MD LAB POINT OF CARE TE ST DOCKED DEVICE UNSOLICITED RESULTS Final Result [facility] [address] [place] [address] * (ABNORMAL) POCT glucose meter (01/08/2025 11:36 AM EDT) [facility] POCT Glucose 240(H) 74 - 99 mg/dL [...] 01/08/2025 11:37 AM EDT [facility] Materials Clerk ID Onofre Stallworth 01/08/2025 11:37 AM EDT [facility] Device ID [id number] 01/08/2025 11:37 AM EDT HEALTH[facility]ARE LAB Specimen Type POC Capillary 01/08/2025 11:37 AM EDT [facility] Blood Capillary blood specimen / Unknown 01/08/2025 11:36 AM EDT 01/08/2025 11:37 AM EDT Neela Alexis MD LAB POINT OF CARE TE ST DOCKED DEVICE UNSOLICITED RESULTS Final Result [facility] [address] [place] [id number] * [place] CRITICAL CARE, E/M 30-74 MINUTES (01/08/2025 11:01 [...] was previously on this during hospitalization in [facility]). Follow-up cx's, check cortisol. h/o vaginal bleeding, store consultant consulted. us Neela Alexis MD IN CLINIC/BEDSIDE ORDERABLES Fi nal Result * Methicillin Resistant Staphylococcus aureus (MRSA) by PCR (01/08/2025 9:45 AM EDT) Methicillin Resistant Staphylococcus aureus (MRSA) by PCR Not Detected Not Detected 01/08/2025 11:22 AM EDT [facility] Swab Both anterior nares / Unknown Non-blood Collection / Unknown 01/08/2025 9:45 AM EDT 01/08/2025 10:00 AM EDT Narrative [facility] - 01/08/2025 11:22 AM EDT This test is FDA approved for use with nares swab specimens using the eSwabs. This test is used for clinical purposes. It should not be regarded as investigational or for research. This laboratory is certified under the Clinical Laboratory improvement Amendments of 1988 (CLIA-88 as qualified to perform high complexity clinical laboratory testing. Neela Alexis MD LAB MICROBIOLOGY - GENERAL ORDE RABLES Final Result Performing Organization Address [facility]/ZIP Co de Phone Number [facility] [address] [place] [address] * Lactate, venous (01/08/2025 8:35 AM EDT) Pathologist [facility] Lactate, Venous, Whole Blood 1.9 0.5 - 2.2 mmol/L LAB HEMATOLOGY METHOD 01/08/2025 8:42 AM EDT [facility] Blood Venous blood specimen / Unknown Venipuncture / Unknown 01/08/2025 8:35 AM EDT 01/08/2025 8:41 AM EDT Neela Alexis MD LAB BLOOD ORDERABLES Final Resu lt Performing Organization Address [facility] [place] [address] * (ABNORMAL) POCT glucose meter (01/08/2025 6:03 AM EDT) Pathologist [facility] POCT Glucose 196(H) 74 - 99 mg/dL 01/08/2025 6:04 AM EDT [facility] Comment:Accuracy of [...] testing. Comment 01/08/2025 6:04 AM EDT [facility] Materials Clerk ID Maryjane Johnston 6:04 AM EDT [facility] Device ID [id number] 01/08/2025 6:04 AM EDT [facility] Specimen Type POC Venous 01/08/2025 6:04 AM EDT [facility] Blood Venous blood specimen / Unknown 01/08/2025 6:03 AM EDT 01/08/2025 6:04 AM EDT us Neela Alexis MD LAB POINT OF CARE TE ST DOCKED DEVICE UNSOLICITED RESULTS Final Result Performing Organization Address City/[facility] Co de Phone Number [facility] [address] [place] [address] * Lactate, venous (01/08/2025 6:03 AM EDT) Lactate, Venous, Whole Blood 1.0 0.5 - 2.2 mmol/L LAB HEMATOLOGY METHOD 01/08/2025 6:09 AM EDT [facility] Blood Venous blood specimen / Unknown Venipuncture / Unknown 01/08/2025 6:03 AM EDT 01/08/2025 6:08 AM EDT us Neela Alexis MD LAB BLOOD ORDERABLES Final Resu lt Performing Organization Address [facility] [place] [address] * (ABNORMAL) Hemoglobin and Hematocrit, Blood (01/08/2025 4:54 AM EDT) HGB 7.6(L) 11.2 - 15.7 g/dL LAB HEMATOLOGY METHOD 01/08/2025 5:09 AM EDT [facility] HCT 25.7(L) 34.0 - 45.0 % LAB HEMATOLOGY METHOD 01/08/2025 5:09 AM EDT [facility] Blood Venous blood specimen / Unknown Venipuncture / Unknown 01/08/2025 4:54 AM EDT 01/08/2025 4:59 AM EDT us Neela Alexis MD LAB BLOOD ORDERABLES Final Resu lt Performing Organization Address City/[facility] Co de Phone Number [facility] [address] [place] [address] * Lactate, venous (01/08/2025 4:01 AM EDT) Lactate, Venous, Whole Blood 1.8 0.5 - 2.2 mmol/L LAB HEMATOLOGY METHOD 01/08/2025 4:15 AM EDT [facility] Blood Venous blood specimen / Unknown Venipuncture / Unknown 01/08/2025 4:01 AM EDT 01/08/2025 4:13 AM EDT us Neela Alexis MD LAB BLOOD ORDERABLES Final Resu lt Performing Organization Address [facility]/ZIP Co de Phone Number [facility] [address] [place] [address] * Lactate, venous (01/08/2025 1:49 AM EDT) [facility] Lactate, Venous, Whole Blood 1.2 0.5 - 2.2 mmol/L LAB HEMATOLOGY METHOD 01/08/2025 2:03 AM EDT [facility] Blood Venous blood specimen / Unknown Venipuncture / Unknown 01/08/2025 1:49 AM EDT 01/08/2025 2:01 AM EDT us Neela Alexis MD LAB BLOOD ORDERABLES Final Resu lt [facility] [address] [place] [address] * (ABNORMAL) POCT glucose meter (01/08/2025 12:14 AM EDT) [facility] POCT Glucose 242(H) 74 - 99 mg/dL 01/08/2025 12:15 AM EDT [facility] Comment:Accuracy of [...] for testing. Comment 01/08/2025 12:15 AM EDT [facility] Materials Clerk ID Maryjane Johnston 12:15 AM EDT HEALTHCARE LAB Device ID [id number] 01/08/2025 12:15 AM EDT HEALTHCARE LAB Specimen Type POC Venous 01/08/2025 12:15 AM EDT [facility] LAB Blood Venous blood specimen / Unknown 01/08/2025 12:14 AM EDT 01/08/2025 12:15 AM EDT us Neela Alexis MD LAB POINT OF CARE TE ST DOCKED DEVICE UNSOLICITED RESULTS Final Result [facility] [address] [place] [address] * (ABNORMAL) Iron & Total Iron Binding Capacity, Plasma (Includes Transferrin) (01/08/2025 12:01 AM EDT) Iron, Plasma 21(L) 30 - 160 ug/dL 01/08/2025 2:33 PM EDT [facility] Transferrin, Plasma 284 200 - 360 mg/dL 01/08/2025 2:33 PM EDT [facility] Total Iron Binding Capacity, Plasma 355 240 - 450 ug/mL 01/08/2025 2:33 PM EDT [facility] Transferrin Saturation 6(L) 14 - 50 % 01/08/2025 2:33 PM EDT [facility] Blood Venous blood specimen / Unknown Venipuncture / Unknown 01/08/2025 12:01 AM EDT 01/08/2025 12:28 AM EDT us Neela Alexis MD LAB BLOOD ORDERABLES Final Resu lt [facility] [address] [place] [address] * Lactate, venous (01/08/2025 12:01 AM EDT) Lactate, Venous, Whole Blood 1.4 0.5 - 2.2 mmol/L LAB HEMATOLOGY METHOD 01/08/2025 12:31 AM EDT [facility] Blood Venous blood specimen / Unknown Venipuncture / Unknown 01/08/2025 12:01 AM EDT 01/08/2025 12:30 AM EDT us Neela Alexis MD LAB BLOOD ORDERABLES Final Resu lt [facility] [address] [place] [address] * Phosphorus, Plasma (01/08/2025 12:01 AM EDT) Phosphorus, Plasma 3.0 2.5 - 4.5 mg/dL 01/08/2025 1:00 AM EDT [facility] Blood Venous blood specimen / Unknown Venipuncture / Unknown 01/08/2025 12:01 AM EDT 01/08/2025 12:28 AM EDT us Elvia Baldwin APRN, CH[facility] LAB BLOOD ORDERABLES Final Result Performing Organization Address [facility]/[place] [address] * (ABNORMAL) Magnesium, Plasma (01/08/2025 12:01 AM EDT) Magnesium, Plasma 1.7(L) 1.9 - 2.4 mg/dL 01/08/2025 1:00 AM EDT [facility] Blood Venous blood specimen / Unknown Venipuncture / Unknown 01/08/2025 12:01 AM EDT 01/08/2025 12:28 AM EDT us Elvia Baldwin APRN, [facility] LAB BLOOD ORDERABLES Final Result Performing Organization Address [facility]/[place] [address] * (ABNORMAL) Ionized calcium, serum (01/08/2025 12:01 AM EDT) Ionized Calcium, Serum 4.3(L) 4.6 - 5.3 mg/dL LAB HEMATOLOGY METHOD 01/08/2025 1:07 AM EDT [facility] Blood Venous blood specimen / Unknown Venipuncture / Unknown 01/08/2025 12:01 AM EDT 01/08/2025 12:28 AM EDT us Elvia Baldwin RECOVERY UNIT OPERATOR, DNP LAB BLOOD ORDERABLES Final Result [facility] [address] [place] [address] * (ABNORMAL) CBC W/O Differential (01/08/2025 12:01 AM EDT) WBC Count 12.97(H) 3.70 - 10.30 10*3/uL LAB HEMATOLOGY METHOD 01/08/2025 12:38 AM EDT [facility] RBC Count 2.92(L) 3.90 - 5.20 10*6/uL LAB HEMATOLOGY METHOD 01/08/2025 12:38 AM EDT [facility] HGB 7.6(L) 11.2 - 15.7 g/dL LAB HEMATOLOGY METHOD 01/08/2025 12:38 AM EDT [facility] HCT 25.8(L) 34.0 - 45.0 % LAB HEMATOLOGY METHOD 01/08/2025 12:38 AM EDT [facility] Platelet Count 386(H) 155 - 369 10*3/uL LAB HEMATOLOGY METHOD 01/08/2025 12:38 AM EDT [facility] MCV 88 79 - 98 fL LAB HEMATOLOGY METHOD 01/08/2025 12:38 AM EDT [facility] MCH 26.0 26.0 - 32.0 pg LAB HEMATOLOGY METHOD 01/08/2025 12:38 AM EDT [facility] MCHC 29.5(L) 30.7 - 35.5 g/dL LAB HEMATOLOGY METHOD 01/08/2025 12:38 AM EDT [facility] RDW 16.7(H) 11.5 - 14.5 % LAB HEMATOLOGY METHOD 01/08/2025 12:38 AM EDT [facility] MPV 9.9 8.8 - 12.5 fL LAB HEMATOLOGY METHOD 01/08/2025 12:38 AM EDT [facility] nRBC 0.0 <=0.0 per 100 WBCs LAB HEMATOLOGY METHOD 01/08/2025 12:38 AM EDT [facility] Blood Venous blood specimen / Unknown Venipuncture / Unknown 01/08/2025 12:01 AM EDT 01/08/2025 12:31 AM EDT us Elvia Manning Denny RECOVERY UNIT OPERATOR, DNP LAB BLOOD ORDERABLES Final Result [facility] [address] [place] [address] * (ABNORMAL) Basic Metabolic Panel, Plasma (01/08/2025 12:01 AM EDT) Glucose, Plasma 230(H) 74 - 99 mg/dL 01/08/2025 1:00 AM EDT [facility] BUN, Plasma 47(H) 7 - 21 mg/dL 01/08/2025 1:00 AM EDT [facility] Creatinine, Plasma 1.61(H) 0.60 - 1.10 mg/dL 01/08/2025 1:00 AM EDT [facility] BUN/Creatinine Ratio 29 01/08/2025 1:00 AM EDT [facility] Sodium, Plasma 134(L) 136 - 145 mmol/L 01/08/2025 1:00 AM EDT [facility] Potassium, Plasma 4.5 3.6 - 4.9 mmol/L 01/08/2025 1:00 AM EDT [facility] Chloride, Plasma 100 97 - 107 mmol/L 01/08/2025 1:00 AM EDT [facility] CO2, Plasma 25 22 - 29 mmol/L 01/08/2025 1:00 AM EDT [facility] Anion Gap 9 6 - 16 mmol/L 01/08/2025 1:00 AM EDT [facility] Total Calcium, Plasma 7.8(L) 8.9 - 10.2 mg/dL 01/08/2025 1:00 AM EDT [facility] eGFRcr 37.4 mL/min/1.7 3m*2 01/08/2025 1:00 AM EDT [facility] Comment:Reported eGFRcr in m L/min/1.73m2 is based the CKD-EPI 2020 equation that does not use a race coefficient. Blood Venous blood specimen / Unknown Venipuncture / Unknown 01/08/2025 12:01 AM EDT 01/08/2025 12:28 AM EDT us Elvia Baldwin RECOVERY UNIT OPERATOR, DNP LAB BLOOD ORDERABLES Final Result Performing Organization Address [facility]/ZIP Co de Phone Number [facility] [address] [place] [address] * Lactate, venous (01/07/2025 10:32 PM EDT) Lactate, Venous, Whole Blood 1.4 0.5 - 2.2 mmol/L LAB HEMATOLOGY METHOD 01/07/2025 10:42 PM EDT [facility] Blood Venous blood specimen / Unknown Venipuncture / Unknown 01/07/2025 10:32 PM EDT 01/07/2025 10:41 PM EDT us Neela Alexis MD LAB BLOOD ORDERABLES Final Resu lt Performing Organization Address [facility]/ZIP Co de Phone Number [facility] [address] [place] [address] * (ABNORMAL) Blood gas panel, venous (01/07/2025 6:42 PM EDT) pH, Venous 7.29(L) 7.32 - 7.43 LAB HEMATOLOGY METHOD 01/07/2025 6:55 PM EDT [facility] pCO2, Venous 53(H) 37 - 52 mmHg LAB HEMATOLOGY METHOD 01/07/2025 6:55 PM EDT [facility] pO2, Venous 66(H) 25 - 40 mmHg LAB HEMATOLOGY METHOD 01/07/2025 6:55 PM EDT [facility] SO2, Measured, Venous 91(H) 65 - 80 % LAB HEMATOLOGY METHOD 01/07/2025 6:55 PM EDT [facility] Base Excess, Venous -1.7 -2.0 - 3.0 mmol/L LAB HEMATOLOGY METHOD 01/07/2025 6:55 PM EDT [facility] Bicarbonate, Calculated, Venous 25 22 - 26 mmol/L LAB HEMATOLOGY METHOD 01/07/2025 6:55 PM EDT [facility] Hematocrit, Whole Blood 32.1(L) 34.0 - 45.0 % LAB HEMATOLOGY METHOD 01/07/2025 6:55 PM EDT [facility] Sodium, Whole Blood 137 136 - 145 mmol/L LAB HEMATOLOGY METHOD 01/07/2025 6:55 PM EDT [facility] Potassium, Whole Blood 3.9 3.6 - 4.9 mmol/L LAB HEMATOLOGY METHOD 01/07/2025 6:55 PM EDT [facility] Chloride, Whole Blood 100 97 - 107 mmol/L LAB HEMATOLOGY METHOD 01/07/2025 6:55 PM EDT [facility] Glucose, Whole Blood 138(H) 74 - 99 mg/dL LAB HEMATOLOGY METHOD 01/07/2025 6:55 PM EDT [facility] Lactate, Venous, Whole Blood 1.4 0.5 - 2.2 mmol/L LAB HEMATOLOGY METHOD 01/07/2025 6:55 PM EDT [facility] Ionized Calcium, Whole Blood 4.1(L) 4.6 - 5.1 mg/dL LAB HEMATOLOGY METHOD 01/07/2025 6:55 PM EDT [facility] Blood Venous blood specimen / Unknown Venipuncture / Unknown 01/07/2025 6:42 PM EDT 01/07/2025 6:53 PM EDT us Neela Alexis MD LAB BLOOD ORDERABLES Final Resu lt [facility] [address] [place] [address] * [facility] (01/07/2025 6:29 PM EDT) Extra Hold for add-ons 01/07/2025 10:02 PM EDT [facility] Comment:Auto resulted. Blood Venous blood specimen / Unknown 01/07/2025 6:29 PM EDT 01/07/2025 7:05 PM EDT us Neela Alexis MD LAB BLOOD ORDERABLES Final Resu lt Performing Organization Address [facility]/ZIP Co de Phone Number [facility] [address] [place] [address] * Light Blue Top (01/07/2025 6:29 PM EDT) Extra Hold for add-ons 01/07/2025 9:02 PM EDT [facility] Comment:Auto resulted. Blood Venous blood specimen / Unknown 01/07/2025 6:29 PM EDT 01/07/2025 6:48 PM EDT us Neela Alexis MD LAB BLOOD ORDERABLES Final Resu lt Performing Organization Address [facility]/ZIP Co de Phone Number [facility] [address] [place] [address] * (ABNORMAL) BETA HYDROXYBUTYRIC ACID (01/07/2025 6:29 PM EDT) Beta-Hydroxybu tyric Acid, Plasma 0.61(H) <=0.27 mmol/L 01/07/2025 7:59 PM EDT [facility] Blood Venous blood specimen / Unknown Venipuncture / Unknown 01/07/2025 6:29 PM EDT 01/07/2025 6:34 PM EDT us Neela Alexis MD LAB BLOOD ORDERABLES Final Resu lt Performing Organization Address [facility] Co de Phone Number [facility] [address] [place] [address] * (ABNORMAL) Procalcitonin (01/07/2025 6:29 PM EDT) Procalcitonin, Plasma 0.11(H) <0.09 ng/mL 01/07/2025 7:43 PM EDT [facility] Blood Venous blood specimen / Unknown Venipuncture / Unknown 01/07/2025 6:29 PM EDT 01/07/2025 6:34 PM EDT Narrative [facility] - 01/07/2025 7:43 PM EDT Procalcitonin [...] predict 28 day mortality risk. Please consult [email or web address] for more information. Test performed at [facility]. us Elvia Baldwin APRN, DNP LAB BLOOD ORDERABLES Final Result Performing Organization Address [facility]/[place] [address] * Phosphorus, Plasma (01/07/2025 6:29 PM EDT) Phosphorus, Plasma 4.2 2.5 - 4.5 mg/dL 01/07/2025 7:43 PM EDT [facility] Blood Venous blood specimen / Unknown Venipuncture / Unknown 01/07/2025 6:29 PM EDT 01/07/2025 6:34 PM EDT us Elvia Baldwin APRN, DNP LAB BLOOD ORDERABLES Final Result Performing Organization Address [facility]/ZIP Co de Phone Number [facility] [address] [place] [address] * (ABNORMAL) Magnesium, Plasma (01/07/2025 6:29 PM EDT) Magnesium, Plasma 1.7(L) 1.9 - 2.4 mg/dL 01/07/2025 7:43 PM EDT [facility] Blood Venous blood specimen / Unknown Venipuncture / Unknown 01/07/2025 6:29 PM EDT 01/07/2025 6:34 PM EDT Result [facility] us Elvia Baldwin RECOVERY UNIT OPERATOR, DNP LAB BLOOD ORDERABLES Final Result [facility] [address] [place] [address] * (ABNORMAL) CBC and Differential (01/07/2025 6:29 PM EDT) WBC Count 21.30(H) 3.70 - 10.30 10*3/uL LAB HEMATOLOGY METHOD 01/07/2025 6:42 PM EDT [facility] RBC Count 3.31(L) 3.90 - 5.20 10*6/uL LAB HEMATOLOGY METHOD 01/07/2025 6:42 PM EDT [facility] HGB 8.5(L) 11.2 - 15.7 g/dL LAB HEMATOLOGY METHOD 01/07/2025 6:42 PM EDT [facility] HCT 29.1(L) 34.0 - 45.0 % LAB HEMATOLOGY METHOD 01/07/2025 6:42 PM EDT [facility] Platelet Count 475(H) 155 - 369 10*3/uL LAB HEMATOLOGY METHOD 01/07/2025 6:42 PM EDT [facility] MCV 88 79 - 98 fL LAB HEMATOLOGY METHOD 01/07/2025 6:42 PM EDT [facility] MCH 25.7(L) 26.0 - 32.0 pg LAB HEMATOLOGY METHOD 01/07/2025 6:42 PM EDT [facility] MCHC 29.2(L) 30.7 - 35.5 g/dL LAB HEMATOLOGY METHOD 01/07/2025 6:42 PM EDT [facility] RDW 16.9(H) 11.5 - 14.5 % LAB HEMATOLOGY METHOD 01/07/2025 6:42 PM EDT [facility] MPV 10.0 8.8 - 12.5 fL LAB HEMATOLOGY METHOD 01/07/2025 6:42 PM EDT [facility] nRBC 0.0 <=0.0 per 100 WBCs LAB HEMATOLOGY METHOD 01/07/2025 6:42 PM EDT [facility] Differential Type Automated LAB HEMATOLOGY METHOD 01/07/2025 6:42 PM EDT [facility] Neutrophils % 74 % LAB HEMATOLOGY METHOD 01/07/2025 6:42 PM EDT [facility] Lymphocytes % 17 % LAB HEMATOLOGY METHOD 01/07/2025 6:42 PM EDT [facility] Monocytes % 6 % LAB HEMATOLOGY METHOD 01/07/2025 6:42 PM EDT [facility] Eosinophils % 2 % LAB HEMATOLOGY METHOD 01/07/2025 6:42 PM EDT [facility] Basophils % 0 % LAB HEMATOLOGY METHOD 01/07/2025 6:42 PM EDT [facility] Immature Granulocytes % 1 % LAB HEMATOLOGY METHOD 01/07/2025 6:42 PM EDT [facility] Neutrophils Absolute 15.87(H) 1.60 - 6.10 10*3/uL LAB HEMATOLOGY METHOD 01/07/2025 6:42 PM EDT [facility] Lymphocytes Absolute 3.57 1.20 - 3.90 10*3/uL LAB HEMATOLOGY METHOD 01/07/2025 6:42 PM EDT [facility] Monocytes Absolute 1.25(H) 0.30 - 0.90 10*3/uL LAB HEMATOLOGY METHOD 01/07/2025 6:42 PM EDT [facility] Eosinophils Absolute 0.32 0.00 - 0.50 10*3/uL LAB HEMATOLOGY METHOD 01/07/2025 6:42 PM EDT [facility] Basophils Absolute 0.08 0.00 - 0.10 10*3/uL LAB HEMATOLOGY METHOD 01/07/2025 6:42 PM EDT [facility] Immature Granulocytes Absolute 0.21(H) 0.00 - 0.06 10*3/uL LAB HEMATOLOGY METHOD 01/07/2025 6:42 PM EDT [facility] Blood Venous blood specimen / Unknown Venipuncture / Unknown 01/07/2025 6:29 PM EDT 01/07/2025 6:34 PM EDT Narrative [facility] - 01/07/2025 6:42 PM EDT Therapeutic decision making should be based on absolute values, rather than percentages. us Elvia Baldwin RECOVERY UNIT OPERATOR, DNP LAB BLOOD ORDERABLES Final Result [facility] [address] [place] [address] * (ABNORMAL) Comprehensive Metabolic Panel, Plasma (01/07/2025 6:29 PM EDT) [facility] Signature Glucose, Plasma 143(H) 74 - 99 mg/dL 01/07/2025 7:43 PM EDT [facility] BUN, Plasma 50(H) 7 - 21 mg/dL 01/07/2025 7:43 PM EDT [facility] Creatinine, Plasma 1.99(H) 0.60 - 1.10 mg/dL 01/07/2025 7:43 PM EDT [facility] BUN/Creatinine Ratio 25 01/07/2025 7:43 PM EDT [facility] Sodium, Plasma 137 136 - 145 mmol/L 01/07/2025 7:43 PM EDT [facility] Potassium, Plasma 4.2 3.6 - 4.9 mmol/L 01/07/2025 7:43 PM EDT [facility] Chloride, Plasma 99 97 - 107 mmol/L 01/07/2025 7:43 PM EDT [facility] CO2, Plasma 21(L) 22 - 29 mmol/L 01/07/2025 7:43 PM EDT [facility] Anion Gap 17(H) 6 - 16 mmol/L 01/07/2025 7:43 PM EDT [facility] Total Calcium, Plasma 8.1(L) 8.9 - 10.2 mg/dL 01/07/2025 7:43 PM EDT [facility] Total Protein 6.8 6.3 - 7.9 g/dL 01/07/2025 7:43 PM EDT [facility] Albumin, Plasma 3.4(L) 3.5 - 5.2 g/dL 01/07/2025 7:43 PM EDT [facility] AST, Plasma 22 10 - 35 U/L 01/07/2025 7:43 PM EDT [facility] ALT, Plasma 13 10 - 35 U/L 01/07/2025 7:43 PM EDT [facility] Alkaline Phosphatase, Plasma 94 46 - 142 U/L 01/07/2025 7:43 PM EDT [facility] Total Bilirubin, Plasma 0.3 0.2 - 1.1 mg/dL 01/07/2025 7:43 PM EDT [facility] eGFRcr 29.0 mL/min/1.7 3m*2 01/07/2025 7:43 PM EDT [facility] Comment:Reported eGFRcr in m L/min/1.73m2 is based the CKD-EPI 2020 equation that does not use a race coefficient. Blood Venous blood specimen / Unknown Venipuncture / Unknown 01/07/2025 6:29 PM EDT 01/07/2025 6:34 PM EDT Elvia Baldwin APRN, DNP LAB BLOOD ORDERABLES Final Result Performing Organization Address [facility] Phone Number [facility] [address] [place] [address] * (ABNORMAL) Hemoglobin A1c (01/07/2025 6:29 PM EDT) Hemoglobin A1c 6.6(H) <5.7 % 01/08/2025 12:52 PM EDT [facility] Blood Venous blood specimen / Unknown Venipuncture / Unknown 01/07/2025 6:29 PM EDT 01/07/2025 6:34 PM EDT Narrative [facility] - 01/08/2025 12:52 PM EDT HA1C Interpretive Data: Diagnosis of Diabetes: Diabetic > or = 6.5% Pre-diabetic 5.7 to 6.4% Non-diabetic < or = 5.6% Glycemic Targets for Type I and Type II Diabetics: Non- Adults <7.0% Adults <6.0% Children and Adolescents <7.5% Source: [place] [employer]. Standards of medical care in diabetes,2017. Diabetes Care.2017:40 (suppl 1):S1-S135. Elvia Baldwin APRN, DNP LAB BLOOD ORDERABLES Final Result Performing Organization Address [facility] Co de Phone Number [facility] [address] [place] [address] * Nasopharyngeal Respiratory Panel (01/07/2025 6:22 PM EDT) Nasopharyngeal Respiratory PCR Interpretation Not Detected for all analytes Not Detected for all analytes 01/07/2025 8:53 PM EDT [facility] Swab Nasopharyngeal structure / Unknown Non-blood Collection / Unknown 01/07/2025 6:22 PM EDT 01/07/2025 6:58 PM EDT Narrative [facility] - 01/07/2025 8:53 PM EDT This [...] Respiratory PCR Panel is performed using the Caliber Datalex instrument. This test is FDA approved for use with Nasopharyngeal swabs only. This test is used for clinical purposes. It should not be regarded as investigational or for research. The [facility] is certified under the Clinical Laboratory Improvement Amendments of 1988 (CLIA-88) as qualified to perform high complexity clinical laboratory testing. Elvia Baldwin APRN, DNP LAB MICROBIOLOGY - [facility] ORDERABLES Final Result [facility] [address] [place] [address] * Influenza A,B & Respiratory Syncytial Virus by PCR (01/07/2025 6:22 PM EDT) [facility] Influenza A Virus PCR Result Not Detected Not Detected 01/10/2025 7:15 AM EDT [facility] Influenza B Virus PCR Result Not Detected Not Detected 01/10/2025 7:15 AM EDT [facility] Respiratory Syncytial Virus (RSV) PCR Result Not Detected Not Detected 01/10/2025 7:15 AM EDT [facility] Swab Nasopharyngeal structure / Unknown Non-blood Collection / Unknown 01/07/2025 6:22 PM EDT 01/07/2025 6:58 PM EDT Elvia Baldwin APRN, DNP LAB MICROBIOLOGY - GE NERAL ORDERABLES Final Result Performing Organization Address [facility] Co de Phone Number [facility] [address] [place] [address] * Multi Drug Resistance Test (01/07/2025 6:20 PM EDT) Culture No growth at day 1 01/08/2025 9:02 PM EDT [facility] Swab (Nares and Sharla Rectal) Non-blood Collection / Unknown 01/07/2025 6:20 PM EDT 01/07/2025 6:58 PM EDT Narrative [facility] - 01/08/2025 9:02 PM EDT This test was developed and its performance characteristics determined by the [facility]. Although the media is FDA-approved, it is not FDA-approved for all specimen types submitted. The FDA has determined that such clearance or approval is not necessary. This test is used for surveillance purposes. It should not be regarded as investigational or for research. The [facility] is certified under the Clinical Laboratory Improvement Amendments of 1988 (CLIA-88) as qualified to perform high complexity clinical laboratory testing. Elvia Baldwin APRN, DNP LAB MICROBIOLOGY - GE NERAL ORDERABLES Final Result Performing Organization Address [facility] Co de Phone Number [facility] [address] [place] [address] * Courtney auris Surveillance by PCR (01/07/2025 6:20 PM EDT) Courtney auris PCR Result Not Detected Not Detected 01/10/2025 6:32 AM EDT [facility] Swab (Axilla and Groin) Non-blood Collection / Unknown 01/07/2025 6:20 PM EDT 01/07/2025 6:58 PM EDT Narrative [facility] - 01/10/2025 6:32 AM EDT This PCR assay was developed and its performance characteristics determined by [facility] as appropriate for clinical purposes. This assay has not been cleared or approved by the FDA, but is performed in a CLIA regulated laboratory that is qualified to perform high-complexity testing. us Elvia Baldwin APRN, [facility] LAB MICROBIOLOGY - NERAL ORDERABLES Final Result Performing Organization Address [facility]/ZIP Co de Phone Number [facility] [address] [place] [address] * (ABNORMAL) POCT glucose meter (01/07/2025 6:16 PM EDT) Pathologist [facility] POCT Glucose 138(H) 74 - 99 mg/dL 01/07/2025 6:17 PM EDT [facility] Comment:Accuracy of a glucos e result [...] for testing. Comment 01/07/2025 6:17 PM EDT [facility] Materials Clerk ID Rosey Whitehead 6:17 PM EDT [facility] Device ID [id number] 01/07/2025 6:17 PM EDT [facility] Specimen Type POC Capillary 01/07/2025 6:17 PM EDT [facility] Blood Capillary blood specimen / Unknown 01/07/2025 6:16 PM EDT 01/07/2025 6:17 PM EDT us Neela Alexis MD LAB POINT OF CARE TE ST DOCKED DEVICE UNSOLICITED RESULTS Final Result Performing Organization Address City/[facility]/ZIP Co de Phone Number [facility] [address] [place] [address] * [place] [facility], E/M 30-74 MINUTES (01/07/2025 5:04 [...] culture not indicated 01/08/2025 12:02 AM EDT [facility] Comment: Previously prelim verified as Specimen [...] Payne MD LAB URINE ORDERABLES Final Result [facility] [address] [place] [address] * (ABNORMAL) Urinalysis with reflex microscopic (Culture NOT Included) (01/07/2025 3:18 PM EDT) Color, Urine Yellow LAB URINALYSIS - AUTOMATED METHOD 01/07/2025 3:49 PM EDT [facility] Clarity, Urine Clear LAB URINALYSIS - AUTOMATED METHOD 01/07/2025 3:49 PM EDT [facility] Spec [place], Urine 1.017 1.005 - 1.030 LAB URINALYSIS - AUTOMATED METHOD 01/07/2025 3:49 PM EDT [facility] pH, Urine <=5.0(L) 5.0 - 8.0 LAB URINALYSIS - AUTOMATED METHOD 01/07/2025 3:49 PM EDT [facility] Protein, Urine Trace(A) Negative mg/dL LAB URINALYSIS - AUTOMATED METHOD 01/07/2025 3:49 PM EDT [facility] Glucose, Urine Negative Negative mg/dL LAB URINALYSIS - AUTOMATED METHOD 01/07/2025 3:49 PM EDT [facility] Ketones, Urine Negative Negative mg/dL LAB URINALYSIS - AUTOMATED METHOD 01/07/2025 3:49 PM EDT [facility] Blood, Urine Negative Negative LAB URINALYSIS - AUTOMATED METHOD 01/07/2025 3:49 PM EDT [facility] Bilirubin, Urine Negative Negative LAB URINALYSIS - AUTOMATED METHOD 01/07/2025 3:49 PM EDT [facility] Urobilinogen, Urine 0.2 0.2 to 1.0 mg/dL LAB URINALYSIS - AUTOMATED METHOD 01/07/2025 3:49 PM EDT [facility] Leukocytes, Urine Negative Negative LAB URINALYSIS - AUTOMATED METHOD 01/07/2025 3:49 PM EDT [facility] Nitrite, Urine Negative Negative LAB URINALYSIS - AUTOMATED METHOD 01/07/2025 3:49 PM EDT [facility] Urine Urine specimen obtained by clean catch procedure / Unknown Non-blood Collection / Unknown 01/07/2025 3:18 PM EDT 01/07/2025 3:29 PM EDT us Nadja Payne MD LAB URINE ORDERABLES Final Result [facility] [address] [place] [address] * EKG now - STAT (adult) (01/07/2025 2:00 PM EDT) EKG DIAGNOSIS CLASS Abnormal MUSE ECG Ventricular Rate 92 BPM MUSE ECG Atrial Rate 92 BPM MUSE ECG WA Interval 200 ms MUSE ECG QRSD Interval 102 ms MUSE ECG QT Interval 350 ms MUSE ECG QTC Interval 432 ms MUSE ECG P [place] 69 degrees MUSE ECG R [place] 67 degrees MUSE ECG T Wave [place] 266 degrees MUSE ECG Diagnosis Normal sinus [...] ORDERABLES Final Resu lt Performing Organization Address [facility] Co de Phone Number MUSE ECG [...] LAB HEMATOLOGY METHOD 01/07/2025 1:54 PM EDT [facility] pCO2, Venous 50 37 - 52 mmHg LAB HEMATOLOGY METHOD 01/07/2025 1:54 PM EDT [facility] pO2, Venous 40 25 - 40 mmHg LAB HEMATOLOGY METHOD 01/07/2025 1:54 PM EDT [facility] SO2, Measured, Venous 65 65 - 80 % LAB HEMATOLOGY METHOD 01/07/2025 1:54 PM EDT [facility] Base Excess, Venous 0.2 -2.0 - 3.0 mmol/L LAB HEMATOLOGY METHOD 01/07/2025 1:54 PM EDT [facility] Bicarbonate, Calculated, Venous 26 22 - 26 mmol/L LAB HEMATOLOGY METHOD 01/07/2025 1:54 PM EDT [facility] Hematocrit, Whole Blood 25.7(L) 34.0 - 45.0 % LAB HEMATOLOGY METHOD 01/07/2025 1:54 PM EDT [facility] Sodium, Whole Blood 136 136 - 145 mmol/L LAB HEMATOLOGY METHOD 01/07/2025 1:54 PM EDT [facility] Potassium, Whole Blood 3.7 3.6 - 4.9 mmol/L LAB HEMATOLOGY METHOD 01/07/2025 1:54 PM EDT [facility] Chloride, Whole Blood 98 97 - 107 mmol/L LAB HEMATOLOGY METHOD 01/07/2025 1:54 PM EDT [facility] Glucose, Whole Blood 147(H) 74 - 99 mg/dL LAB HEMATOLOGY METHOD 01/07/2025 1:54 PM EDT [facility] Lactate, Venous, Whole Blood 1.4 0.5 - 2.2 mmol/L LAB HEMATOLOGY METHOD 01/07/2025 1:54 PM EDT [facility] Ionized Calcium, Whole Blood 4.1(L) 4.6 - 5.1 mg/dL LAB HEMATOLOGY METHOD 01/07/2025 1:54 PM EDT [facility] Blood Venous blood specimen / Unknown Venipuncture / Unknown 01/07/2025 1:50 PM EDT 01/07/2025 1:52 PM EDT us Nadja Payne MD LAB BLOOD ORDERABLES Final Result [facility] [address] [place] [address] * (ABNORMAL) Troponin T, High Sensitivity, 2 Hour, Plasma (01/07/2025 1:50 PM EDT) Troponin T, High Sensitivity, 2 Hour 26(H) <14 ng/L 01/07/2025 2:26 PM EDT [facility] Troponin Delta 4 <10 ng/L 01/07/2025 2:26 PM EDT [facility] Troponin Delta Interpretation Not Significant 01/07/2025 2:26 PM EDT [facility] Comment:Not Significant. No acute change in troponin observed between the baseline and 2 hour samples. Blood Venous blood specimen / Unknown Venipuncture / Unknown 01/07/2025 1:50 PM EDT 01/07/2025 1:52 PM EDT Nadja Payne MD LAB BLOOD ORDERABLES Final Result Performing Organization Address [facility]/ZIP Co de Phone Number [facility] [address] [place] [address] * Blood Culture (Aerobic/Anaerobet Set) (01/07/2025 11:43 AM EDT) Culture No growth at day 5 01/12/2025 1:01 PM EDT [facility] Blood Structure of left hand / Unknown Venipuncture / Unknown 01/07/2025 11:43 AM EDT 01/07/2025 12:10 PM EDT Narrative [facility] - 01/12/2025 1:01 PM EDT Low blood volume submitted, results may be compromised Nadja Payne MD LAB MICROBIOLOGY - GENERAL ORDERABLES Final Result Performing Organization Address [facility] Co de Phone Number [facility] [address] [place] [address] * ED HIV 1/2 Antibody/Antigen Screen w/Reflex to HIV 1/2 Differentiation (01/07/2025 11:31 AM EDT) HIV 1 & 2 Antibody/Antigen Screen Non Reactive Non Reactive 01/07/2025 12:34 PM EDT [facility] Comment:Screening for HIV 1 & 2 antibodies, and P24 antigen is NONREACTIVE. No confirmatory testing is required. Blood Venous blood specimen / Unknown Venipuncture / Unknown 01/07/2025 11:31 AM EDT 01/07/2025 11:53 AM EDT Nadja Payne MD LAB BLOOD ORDERABLES Final Result Performing Organization Address City/[facility]/ZIP Co de Phone Number [facility] [address] [place] [address] * Hepatitis C Antibody - ED (01/07/2025 11:31 AM EDT) Hepatitis C Antibody Negative Negative 01/07/2025 12:34 PM EDT [facility] Blood Venous blood specimen / Unknown Venipuncture / Unknown 01/07/2025 11:31 AM EDT 01/07/2025 11:53 AM EDT Nadja Payne MD LAB BLOOD ORDERABLES Final Result Performing Organization Address City/[facility]/ZIP Co de Phone Number [facility] [address] [place] [address] * Type and screen (01/07/2025 11:31 AM [...] ORDERA BLES Final Result Performing Organization Address City/[facility] Co de Phone Number BLOOD BANK [address] [place] [address], * Blood Culture (Aerobic/Anaerobet Set) (01/07/2025 11:31 AM EDT) Culture No growth at day 5 01/12/2025 1:01 PM EDT [facility] Blood Structure of left hand / Unknown Venipuncture / Unknown 01/07/2025 11:31 AM EDT 01/07/2025 12:04 PM EDT Narrative [facility] - 01/12/2025 1:01 PM EDT Low blood volume submitted, results may be compromised Nadja Payne MD LAB MICROBIOLOGY - GENERAL [place] [address] * Free T4, Plasma (01/07/2025 11:31 AM EDT) Free T4, Plasma 1.6 0.8 - 1.7 ng/dL 01/07/2025 12:12 PM EDT [facility] Blood Venous blood specimen / Unknown Venipuncture / Unknown 01/07/2025 11:31 AM EDT 01/07/2025 11:37 AM EDT Nadja Payne MD LAB [place] [address] * Thyroid Stimulating Hormone, Plasma (01/07/2025 11:31 AM EDT) Thyroid Stimulating Hormone, Plasma 2.22 0.40 - 4.20 uIU/mL 01/07/2025 12:12 PM EDT [facility] Blood Venous blood specimen / Unknown Venipuncture / Unknown 01/07/2025 11:31 AM EDT 01/07/2025 11:37 AM EDT Nadja Payne MD LAB BLOOD [place] [address] * BNP (01/07/2025 11:31 AM EDT) N-Terminal, PROBNP, Plasma 710 0 - 899 pg/mL 01/07/2025 12:12 PM EDT [facility] Blood Venous blood specimen / Unknown Venipuncture / Unknown 01/07/2025 11:31 AM EDT 01/07/2025 11:37 AM EDT Nadja Payne MD LAB BLOOD ORDERABLES Final Result [facility] [address] [place] [address] * (ABNORMAL) Troponin now and 120 min (01/07/2025 11:31 AM EDT) Troponin T, High Sensitivity, 0 Hour 22(H) <14 ng/L 01/07/2025 12:12 PM EDT [facility] Blood Venous blood specimen / Unknown Venipuncture / Unknown 01/07/2025 11:31 AM EDT 01/07/2025 11:37 AM EDT Nadja Payne MD LAB BLOOD ORDERABLES Final Result Performing Organization Address City/[facility]/ZIP Co de Phone Number [facility] [address] [place] [address] * (ABNORMAL) CMP (01/07/2025 11:31 AM EDT) Glucose, Plasma 174(H) 74 - 99 mg/dL 01/07/2025 12:12 PM EDT [facility] BUN, Plasma 53(H) 7 - 21 mg/dL 01/07/2025 12:12 PM EDT [facility] Creatinine, Plasma 2.43(H) 0.60 - 1.10 mg/dL 01/07/2025 12:12 PM EDT [facility] BUN/Creatinine Ratio 22 01/07/2025 12:12 PM EDT [facility] Sodium, Plasma 136 136 - 145 mmol/L 01/07/2025 12:12 PM EDT [facility] Potassium, Plasma 4.5 3.6 - 4.9 mmol/L 01/07/2025 12:12 PM EDT [facility] Chloride, Plasma 95(L) 97 - 107 mmol/L 01/07/2025 12:12 PM EDT [facility] CO2, Plasma 24 22 - 29 mmol/L 01/07/2025 12:12 PM EDT [facility] Anion Gap 17(H) 6 - 16 mmol/L 01/07/2025 12:12 PM EDT [facility] Total Calcium, Plasma 8.1(L) 8.9 - 10.2 mg/dL 01/07/2025 12:12 PM EDT [facility] Total Protein 7.0 6.3 - 7.9 g/dL 01/07/2025 12:12 PM EDT [facility] Albumin, Plasma 3.5 3.5 - 5.2 g/dL 01/07/2025 12:12 PM EDT [facility] AST, Plasma 17 10 - 35 U/L 01/07/2025 12:12 PM EDT [facility] Comment:Hemolyzed, result ma y be falsely increased. ALT, Plasma 11 10 - 35 U/L 01/07/2025 12:12 PM EDT [facility] Alkaline Phosphatase, Plasma 89 46 - 142 U/L 01/07/2025 12:12 PM EDT [facility] Total Bilirubin, Plasma 0.3 0.2 - 1.1 mg/dL 01/07/2025 12:12 PM EDT [facility] eGFRcr 22.8 mL/min/1.7 3m*2 01/07/2025 12:12 PM EDT [facility] Comment:Reported eGFRcr in m L/min/1.73m2 is based the CKD-EPI 2020 equation that does not use a race coefficient. Blood Venous blood specimen / Unknown Venipuncture / Unknown 01/07/2025 11:31 AM EDT 01/07/2025 11:37 AM EDT us Nadja Payne MD LAB BLOOD ORDERABLES Final Result [facility] [address] [place] [address] * PT-INR (01/07/2025 11:31 AM EDT) Prothrombin Time 14.0 12.0 - 14.3 sec 01/07/2025 11:55 AM EDT [facility] INR 1.1 0.9 - 1.1 01/07/2025 11:55 AM EDT [facility] Blood Venous blood specimen / Unknown Venipuncture / Unknown 01/07/2025 11:31 AM EDT 01/07/2025 11:37 AM EDT Narrative [facility] - 01/07/2025 11:55 AM EDT OPTIMAL INR RANGES FOR PATIENT ON ORAL ANTICOAGULANT THERAPY Prevention of venous thromboembolism INR 2.0 to 3.0 In patients with heart disease: Atrial fibrillation INR 2.0 to 3.0 Valvular heart disease INR 2.0 to 3.0 Tissue heart valves INR 2.0 to 3.0 Mechanical prosthetic valves INR 2.5 to 3.5 Prevention of recurrent TN INR 2.5 to 3.5 us Nadja Payne MD LAB BLOOD ORDERABLES Final Result [facility] [address] [place] [address] * (ABNORMAL) CBC w/diff (01/07/2025 11:31 AM EDT) WBC Count 14.02(H) 3.70 - 10.30 10*3/uL LAB HEMATOLOGY METHOD 01/07/2025 11:39 AM EDT [facility] RBC Count 3.11(L) 3.90 - 5.20 10*6/uL LAB HEMATOLOGY METHOD 01/07/2025 11:39 AM EDT [facility] HGB 8.3(L) 11.2 - 15.7 g/dL LAB HEMATOLOGY METHOD 01/07/2025 11:39 AM EDT [facility] HCT 27.6(L) 34.0 - 45.0 % LAB HEMATOLOGY METHOD 01/07/2025 11:39 AM EDT [facility] Platelet Count 357 155 - 369 10*3/uL LAB HEMATOLOGY METHOD 01/07/2025 11:39 AM EDT [facility] MCV 89 79 - 98 fL LAB HEMATOLOGY METHOD 01/07/2025 11:39 AM EDT [facility] MCH 26.7 26.0 - 32.0 pg LAB HEMATOLOGY METHOD 01/07/2025 11:39 AM EDT [facility] MCHC 30.1(L) 30.7 - 35.5 g/dL LAB HEMATOLOGY METHOD 01/07/2025 11:39 AM EDT [facility] RDW 16.9(H) 11.5 - 14.5 % LAB HEMATOLOGY METHOD 01/07/2025 11:39 AM EDT [facility] MPV 10.1 8.8 - 12.5 fL LAB HEMATOLOGY METHOD 01/07/2025 11:39 AM EDT [facility] nRBC 0.0 <=0.0 per 100 WBCs LAB HEMATOLOGY METHOD 01/07/2025 11:39 AM EDT [facility] Differential Type Automated LAB HEMATOLOGY METHOD 01/07/2025 11:39 AM EDT [facility] Neutrophils % 72 % LAB HEMATOLOGY METHOD 01/07/2025 11:39 AM EDT [facility] Lymphocytes % 21 % LAB HEMATOLOGY METHOD 01/07/2025 11:39 AM EDT [facility] Monocytes % 5 % LAB HEMATOLOGY METHOD 01/07/2025 11:39 AM EDT [facility] Eosinophils % 1 % LAB HEMATOLOGY METHOD 01/07/2025 11:39 AM EDT [facility] Basophils % 0 % LAB HEMATOLOGY METHOD 01/07/2025 11:39 AM EDT [facility] Immature Granulocytes % 1 % LAB HEMATOLOGY METHOD 01/07/2025 11:39 AM EDT [facility] Neutrophils Absolute 10.05(H) 1.60 - 6.10 10*3/uL LAB HEMATOLOGY METHOD 01/07/2025 11:39 AM EDT [facility] Lymphocytes Absolute 2.99 1.20 - 3.90 10*3/uL LAB HEMATOLOGY METHOD 01/07/2025 11:39 AM EDT [facility] Monocytes Absolute 0.67 0.30 - 0.90 10*3/uL LAB HEMATOLOGY METHOD 01/07/2025 11:39 AM EDT [facility] Eosinophils Absolute 0.20 0.00 - 0.50 10*3/uL LAB HEMATOLOGY METHOD 01/07/2025 11:39 AM EDT [facility] Basophils Absolute 0.04 0.00 - 0.10 10*3/uL LAB HEMATOLOGY METHOD 01/07/2025 11:39 AM EDT [facility] Immature Granulocytes Absolute 0.07(H) 0.00 - 0.06 10*3/uL LAB HEMATOLOGY METHOD 01/07/2025 11:39 AM EDT [facility] Blood Venous blood specimen / Unknown Venipuncture / Unknown 01/07/2025 11:31 AM EDT 01/07/2025 11:37 AM EDT Narrative [facility] - 01/07/2025 11:39 AM EDT Therapeutic decision making should be based on absolute values, rather than percentages. us Nadja Payne MD LAB BLOOD ORDERABLES Final Result [facility] [address] [place] [address] * (ABNORMAL) POCT venous blood gas gem (01/07/2025 11:18 AM EDT) pH, Venous 7.31(L) 7.32 - 7.43 01/07/2025 11:19 AM EDT [facility] pCO2, Venous 54(H) 37 - 52 mm Hg 01/07/2025 11:19 AM EDT [facility] pO2, Venous 32 25 - 40 mm Hg 01/07/2025 11:19 AM EDT [facility] SO2, Venous 43(L) 65 - 80 % 01/07/2025 11:19 AM EDT [facility] Base Excess/Deficit, Venous 0.6 -2 - 3 mmol/L 01/07/2025 11:19 AM EDT [facility] HCO3, Venous 27.2(H) 22 - 26 mmol/L 01/07/2025 11:19 AM EDT [facility] Hemoglobin, Venous 8.2(L) 11.2 - 15.7 g/dL 01/07/2025 11:19 AM EDT [facility] Hematocrit, Venous 25.0(L) 34.0 - 45.0 % 01/07/2025 11:19 AM EDT [facility] Sodium, Venous 134(L) 136 - 145 mmol/L 01/07/2025 11:19 AM EDT [facility] Potassium, Venous 4.5 3.6 - 4.9 mmol/L 01/07/2025 11:19 AM EDT [facility] Comment:Hemolyzed, result ma y be falsely increased. POCT Chloride, Venous 98 97 - 107 mmol/L 01/07/2025 11:19 AM EDT [facility] Glucose, Venous 190(H) 74 - 99 mg/dL 01/07/2025 11:19 AM EDT [facility] Ionized Calcium, Venous 4.3(L) 4.6 - 5.1 mg/dL 01/07/2025 11:19 AM EDT [facility] Lactate, Venous 2.4(H) 0.5 - 2.2 mmol/L 01/07/2025 11:19 AM EDT [facility] Body Temperature 37.0 Celsius 01/07/2025 11:19 AM EDT [facility] pH, Temp Corrected, Venous 7.31(L) 7.32 - 7.43 01/07/2025 11:19 AM EDT [facility] pCO2, Temp Corrected, Venous 54(H) 37 - 52 mm Hg 01/07/2025 11:19 AM EDT [facility] pO2, Temp Corrected, Venous 32 25 - 40 mm Hg 01/07/2025 11:19 AM EDT [facility] Materials Clerk ID Paul Jansen 01/07/2025 11:19 AM EDT [facility] Blood, Venous Whole blood specimen / Unknown 01/07/2025 11:18 AM EDT 01/07/2025 11:19 AM EDT us Generic Provider Poct LAB POINT OF CARE TEST DOCKED DEVICE UNSOLICITED RESULTS Final Result Performing Organization Address City/State/[facility] Co de Phone Number [facility] [address] [place] [address] * EKG now - STAT (adult) (01/07/2025 11:12 AM EDT) EKG DIAGNOSIS CLASS Abnormal MUSE ECG Ventricular Rate 101 BPM MUSE ECG Atrial Rate 101 BPM MUSE ECG WA Interval 190 ms MUSE ECG QRSD Interval 116 ms MUSE ECG QT Interval 358 ms MUSE ECG QTC Interval 464 ms MUSE ECG P [place] 46 degrees MUSE ECG R [place] 68 degrees MUSE ECG T Wave [place] -67 degrees MUSE ECG Diagnosis Sinus tachycardia with premature atrial complexes with aberrant conduction MUSE ECG Diagnosis Nonspecific intraventricular conduction delay MUSE ECG Diagnosis T wave abnormality, consider inferolateral ischemia MUSE ECG Diagnosis Abnormal ECG MUSE ECG Diagnosis MUSE ECG Diagnosis Confirmed by Vasu Holland ([id number]) on 01/08/2025 3:46:58 PM MUSE ECG 01/07/2025 11:1 2 AM EDT 01/08/2025 3:46 PM EDT us aNdja Payne MD ECG ORDERABLES Final Resu lt MUSE ECG * Critical Care (01/07/2025 11:00 AM EDT) Narrative Nadja Payne MD - 01/07/2025 11:00 AM EDT Nadja Payne MD 01/09/2025 2:38 PM Critical Care Performed by: Nadja Payne MD Authorized by: Ivis Juárez MD us Ivis Juárez MD IN CLINIC/BEDSIDE ORDERABLES F inal Result * [place] CRITICAL CARE, E/M 30-74 MINUTES (01/07/2025 11:00 [...] in this encounter Visit Diagnoses Diagnosis Shock ([facility])- Primary Unspecified shock Shock ([facility]) Unspecified shock GWEN (acute kidney injury) ([facility]) Chronic heart failure with preserved ejection fraction ([facility]) Abnormal uterine and vaginal bleeding, unspecified Morbid obesity with body mass index (BMI) of 40.0 or higher ([facility]) [E66.01]; Class III obesity with body mass index (BMI) of 40.0 or higher ([facility]) Class III obesity with body mass index (BMI) of 40.0 or higher ([facility]) Abnormal uterine and vaginal bleeding, unspecified Abnormal uterine and vaginal bleeding, unspecified documented in this encounter Admitting Diagnoses Diagnosis Shock ([facility]) Unspecified shock Abnormal uterine and vaginal bleeding, [...] Topical, 4 times daily PRN, Starting on Thu01/12/25 at 0629, Until 01/14/25 at 1850, Routine, Arm pain Given 01/13/2025 11:32 AM EDT 2 g Given 01/12/2025 9:17 PM EDT 2 g glucagon (human recombinant) injection 1 mg 1 mg, Intramuscular, Every 15 min PRN, Starting on Thu01/12/25 at 1615, Until 01/14/25 at 1850, Routine, low blood sugar per Hypoglycemia Prevention and Treatment protocol glucose (Glutose) 40 % oral gel 15-30 grams of glucose 15-30 grams of glucose, Sublingual, Every 15 min PRN, Starting on Thu01/12/25 at 1615, Until 01/14/25 at 1850, Routine, low blood sugar, per Hypoglycemia Prevention and Treatment protocol insulin lispro (Admelog) 100 units/mL injection - [...] PM EDT 2 Units Right Upper Arm (Frankie k) levothyroxine (Synthroid, Levoxyl) tablet 300 mcg 300 mcg, Oral, Every morning, First dose on Thu01/09/25 at 0600, Until Discontinued, Routine Given 01/14/2025 6:24 AM EDT 300 mcg Given 01/13/2025 11:29 AM EDT 300 mcg Given 01/12/2025 3:44 AM EDT 300 mcg metFORMIN (Glucophage) tablet 500 mg 500 mg, [...] Given 01/13/2025 11:32 AM EDT 2 puffs rOPINIRole (Requip) tablet 4 mg 4 mg, Oral, Daily, First dose (after last modification) on Thu01/08/25 at 1115, Until Discontinued, RoutineIndications:Restless Leg Syndrome [...] 01/11/2025 8:07 PM EDT 13 mL Tiotropium [place] Monohydrate (Spiriva Respimat) 2.5 MCG/ACT inhaler 2 [...] Given 01/13/2025 8:51 PM EDT 100 mg documented in this encounter Active and Recently Administered Medications Times are shown in EDT. Scheduled Medication Order 01/12/2025 01/13/2025 01/14/2025 buPROPion SR (Wellbutrin SR) 12 hr tablet 200 mg 200 mg, Oral, 2 times daily, First dose on Thu01/09/25 at 1445, Until Discontinued, Routine 1015 (Given - Provider: Aleida Hobson RN)2113 (Given - Provider: Lexi Burnham RN) 0612 [...] (Given - Provider: Aleida Hobson RN) 0612 (MAR Hold - Provider: Automatic Transfer Provider - Reason: Patient in procedure)0830 (Dose Auto Held - Provider: Automatic Transfer Provider)1059 (MAR Unhold - Provider: Automatic Transfer Provider)1248 (Given [...] 0220 (Canceled Entry - Provider: Rosa Roy RN)2109 (Not Given - Provider: Lexi Burnham RN - Reason: Order parameters not met) 0243 (Not Given - Provider: Lexi Burnham RN - Reason: Order parameters not met)0612 (MAR Hold - Provider: Automatic Transfer Provider - Reason: Patient in procedure)1059 (MAR Unhold - Provider: Automatic Transfer Provider)205 (Given - Provider: Melissa Saldana RN) 0603 [...] Provider)1059 (MAR Unhold - Provider: Automatic Transfer Provider)1132 (Given - Provider: Aleida Hobson RN)205 (Given - Provider: Melissa Saldana RN) 0857 (Given - Provider: Soraida Ralph RN) midodrine (Proamatine) tablet 10 mg 10 mg, Oral, 3 times daily, First dose on Thu01/08/25 at 1515, Until Discontinued, Routine 1014 (Given - Provider: Alieda Hobson RN)1539 (Given - Provider: Aleida Hobson RN)2110 (Given - Provider: Lexi Burnham RN) 0612 (MAR Hold - Provider: Automatic Transfer Provider - Reason: Patient in procedure)0900 (Dose Auto Held - Provider: Automatic Transfer Provider)1059 (MAR Unhold - Provider: Automatic Transfer Provider)1129 (Given [...] Routine 1015 (Given - Provider: Aleida Hobson RN)2109 (Given - Provider: Lexi Burnham RN) 0612 (SEP Hold - Provider: Automatic Transfer Provider - Reason: Patient in procedure)0900 (Dose Auto Held - Provider: Automatic Transfer Provider)1059 (SEP Unhold - Provider: Automatic Transfer Provider)1132 (Given - Provider: Aleida Hobson RN)2049 (Given - Provider: Meilssa Saldana RN) 0859 (Given - Provider: Soraida [...] (Given - Provider: Soraida Ralph RN) Tiotropium [place] Monohydrate (Spiriva Respimat) 2.5 MCG/ACT inhaler 2 [...] Aleida Hobson RN) 0859 (Given - Provider: Soraida Ralph RN) torsemide (Demadex) tablet 40 mg [...] Provider: Daija Valentine RN)1448 (Given - Provider: Aleida Hobson, [place])1843 (Given - Provider: Aleida Hobson RN) albuterol 108 (90 Base) MCG/ACT inhaler 2 puff 2 puff, Inhalation, Every 6 hours PRN, Starting on Guillermina 01/12/25 at 0643, Until 01/14/25 at 1850, Routine, shortness of breath, wheezing 0612 ([facility] Hold - Provider: Automatic Transfer Provider - Reason: Patient in procedure)1059 ([facility] Unhold - Provider: Automatic Transfer Provider) dextrose 10 % (D10W) bolus 125 mL(Linked Group 2) 125 mL, Intravenous, Every 15 min PRN, Starting on Guillermina 01/12/25 at 1615, Until 01/14/25 at 1850, Administer over 15 Minutes, Routine, low blood sugar BG 51-89 mg/dL 0612 ([facility] Hold - Provider: Automatic Transfer Provider - Reason: Patient in procedure)1059 ([facility] Unhold - Provider: Automatic Transfer Provider) dextrose 10 % (D10W) bolus 250 mL(Linked Group 2) 250 mL, Intravenous, Every 15 min PRN, Starting on Guillermina 01/12/25 at 1615, Until 01/14/25 at 1850, Administer over 15 Minutes, Routine, PRN low blood sugar BG =/<50 mg/dL 0612 ([facility] Hold - Provider: Automatic Transfer Provider - Reason: Patient in procedure)1059 ([facility] Unhold - Provider: Automatic Transfer Provider) diclofenac (Voltaren) 1 % topical gel 2 g 2 g, Topical, 4 times daily PRN, Starting on Guillermina 01/12/25 at 0629, Until 01/14/25 at 1850, Routine, Arm pain 2116 (Given - Provider: Lexi Burnham RN) 0612 ([facility] Hold - Provider: Automatic Transfer Provider - Reason: Patient in procedure)1059 ([facility] Unhold - Provider: Automatic Transfer Provider)1132 (Given - Provider: Aleida Hobson, [place]) fentaNYL (Sublimaze) injection 50 mcg (COMPLETED) 50 [...] sugar per Hypoglycemia Prevention and Treatment protocol 0612 ([facility] Hold - Provider: Automatic Transfer Provider - Reason: Patient in procedure)1059 ([facility] Unhold - Provider: Automatic Transfer Provider) glucose (Glutose) 40 % oral gel 15-30 grams of glucose(Linked Group 2) 15-30 grams of glucose, Sublingual, Every 15 min PRN, Starting on Guillermina 01/12/25 at 1615, Until 01/14/25 at 1850, Routine, low blood sugar, per Hypoglycemia Prevention and Treatment protocol 0612 ([facility] Hold - Provider: Automatic Transfer Provider - Reason: Patient in procedure)1059 ([facility] Unhold - Provider: Automatic Transfer Provider) oxyCODONE [...] mL flush for PERIPHERAL IV CARE ONLY. 0612 ([facility] Hold - Provider: Automatic Transfer Provider - Reason: Patient in procedure)1059 ([facility] Unhold - Provider: Automatic Transfer Provider) Linked Groups Order Group 1: Tiotropium [place] Monohydrate (Spiriva Respimat) 2.5 MCG/ACT inhaler 2 [...] documented as of this encounter Care Teams Nail Feeder Relationship Specialty Start Date End Date Vahid Garcia DO [address] [place] [address] PCP - General 01/10/25 documented as of this encounter
--- OUTSIDE RECORDS SUMMARY | 2025-01-13 07:51 | XMS_ITS | Encounter Summary ---
Author Organization Healthcare Address [address] [id number] Care Team Providers Care Devulcanizer Head Name Role Phone JoseVahid Nazia PAYNE Primary Care Provider [phone] Reason for Visit * Auth/Cert (Routine) Specialty Diagnoses / Procedures Referred By Contac t Referred To Contact Diagnoses Shock (CMS/HCC) GWEN (acute kidney injury) ([facility]/HCC) Chronic heart failure with preserved ejection fraction ([facility]/HCC) Adalgisa Alexis MD [address] [facility] [address] [place] [address] Phone: tel: fax: [facility] Inpatient [address] [place] [address] Referral ID Status Reason Start Date Expiration Date Visits Re quested Visits Authorized [id number] 1 1 Encounter Details Date Type Department Care Team (Late st Contact Info) Description 01/13/2025 7:51 AM EDT Anesthesia Event [facility] OPERATING ROOM [address] [place] [address] Yonas Kingston MD [address] [place] [id number] Susan Saha PA [address] [facility] [address] [place] [address] Anesthesia Record Procedure Summary Procedure Name Responsible Anesthesiologist Anesthesia Start Time Anesthesia Stop Time HYSTEROSCOPY, WITH DILATION AND CURETTAGE OF UTERUS Yonas Kingston MD 01/13/25 0751 01/13/25 1000 Events Date Time Event Comment 01/13/2025 0751 In Room 0751 An Start The patient was reevaluated immediately before sedation and remains eligible for anesthesia plan. 0751 An Start Data 0803 An Induction The patient was reevaluated immediately before moderate or deep sedation use and before anesthesia induction. 0806 An Intubation 0807 Anesthesia Ready 0851 Proc Start 0922 Proc Fin 0930 An Extubation 0934 an stop data 0936 Out of Room 1000 Handoff to Receiving I compl eted my handoff to the receiving clinician during which we: 1. Identified the patient 2. Identified the responsible provider 3. Reviewed the pertinent medical history 4. Discussed the surgical course 5. Reviewed intra-op anesthesia management and issues during anesthesia 6. Set expectations for post-procedure period 7. Allowed opportunity for questions and acknowledgement of understanding. 1000 An Stop Meds Name Total midazolam (Versed) injection 1 mg/mL 2 m g fentaNYL (Sublimaze) injection 50 mcg/mL 100 mcg lidocaine PF (Xylocaine-MPF) 2% 100 mg propofol (Diprivan) injection 10 mg/mL 2 00 mg rocuronium (ZeMuron) injection 10 mg/mL 70 mg dexamethasone (Decadron) injection 4 mg/ mL 4 mg ondansetron (Zofran) injection 2 mg/mL 4 mg sugammadex (Bridion) injection 100 mg/mL 300 mg esmolol (Brevibloc) infusion 10 mg/mL 10 0 mg lactated Ringer's infusion 300 mL * Agents Name O2 N2O Air Sevoflurane Isoflurane Desflurane Inspired Desflurane Inspired Isoflurane Inspired Sevoflurane N2O Inspired N2O * Blood No blood administrations on file. Lines, Drains, and Airways Type Details Placement Removal Wound 01/07/25; 1817; Y; Abdomen; Left, Lower 01/07/251817 by Bryan Wei RN Wound 01/07/25; 182; Y; Y es; Irritant Con; Sacrum 01/07/251824 by Onofre Stallworth RN Wound 01/07/25; 1826; Y; C hest; Left, Upper 01/07/251825 by Bryan Wei RN Peripheral IV Placement Date: 12/19 10/11; Placement Time: 0420 (created via procedure documentation); Catheter Size: 20 G (20 gauge/2.25in AccuCath); Orientation: Left, Anterior, Distal, Upper; Location: Arm (Cephalic); Site Prep: Alcohol, Chlorhexidine ; Technique: Ultrasound guidance; Inserted by: Ryan Washington RN/VAT; Insertion Attempts: 1; Patient Tolerance: Tolerated well; Removal Date: 01/14/25; Removal Time: 13201/09/25 0420 by John Washington RN 01/14/25 1327 by Soraida Ralph RN Female External Urinary Catheter 01/10/25; 1820; 01/14/25; 13201/10/25 1820 by Bi Saini RN 01/14/25 1327 by Soraida Ralph RN Peripheral IV Placement Date: 12/19 01/11; Placement Time: 1440; Catheter Size: 20 G (USG PIV Right FA #20G 2.00 ); Orientation: Anterior, Right; Location: Forearm; Site Prep: Chlorhexidine ; Local Anesth: None; Technique: Ultrasound guidance; Inserted by: Rios Cunningham RN VAT; Insertion Attempts: 1; Patient Tolerance: Tolerated well; Removal Date: 01/14/25; Removal Time: 13201/12/25 1440 by Delaney Cunningham RN 01/14/25 1327 by Soraida Ralph RN ETT Placement Date: 12/19 02/10; Placement Time: 0806 (created via procedure documentation); Mask Ventilation: 1; Technique: Video laryngoscopy; Type: ETT - single; Single Lumen Tube Size: 7.5 mm; Cuffed: Yes; Laryngoscope: (Ambu Hyper 3); Location: Oral; Grade View: Grade I; Insertion Attempts: 1; Placement Verification: Auscultation, Capnometry; Airway Comments: Atraumatic. No change to dentition. Easy mask, easy intubation. Patient preoxygenated for 10 minutes prior to induction. Tolerated well; Placed by: ANGELO; Removal Date: 01/13/25; Removal Time: 92901/13/25 0806 by Jacinto Singh CRNA, DNP 01/13/25 09 by Jacinto Singh CRNA, CHASITY documented in this encounter Social History Tobacco Use Types Packs/Day Years Used Date Smoking Tobacco: Former Cigarettes Smokeless Tobacco: Never Alcohol Use Standard Drinks/Week Comments Never 0 [...] any time in the past 12 m [facility], were you homeless or living in a custodial (including now)? No 01/10/2025 Utilities Answer Date Recorded In the past 12 months has th [employer], gas, oil, or water [employer] threatened to shut off services in your home? No 01/10/2025 Comments No Sex and Gender Information Value Date Recorded Sex Assigned at Not on file Legal Sex Female 7:51 PM EDT Gender Identity Not on file Sexual Orientation Not on file documented as of this encounter Functional Status * Calculated C-SSRS Risk Score (Lifetime/Recent) Answer Date of Assessment Author No Risk Indicated 01/13/2025 6:15 AM EDT Tawana Woods RN * Question Answer Date of Assessment Author 1. Wish to be (Past 1 Month) No 01/13/2025 6:15 AM EDT Roberto Sanon RN 2. Non-Specific Active Suicidal Thoughts (Past 1 Month) No 01/13/2025 6:15 AM EDT Roberto Sanon RN 6. Suicidal Behavior (Lifetime) No 01/13/2025 6:15 AM EDT Roberto Sanon RN documented as of this encounter Miscellaneous Notes * Anesthesia Postprocedure Evaluation - Jacinto Singh CRNA, DNP - 01/13/2025 10:00 AM EDT Patient: Stcaey George Anesthesia Type: general Vitals Value Taken Time BP 153/60 01/13/25 09:55 Temp 36.8 ??C (98.2 ??F) 01/13/25 09:42 Pulse 89 01/13/25 09:59 Resp 15 01/13/25 09:59 SpO2 97 % 01/13/25 09:59 Vitals shown include unfiled device data. Anesthesia Post Evaluation Patient location during evaluation: PACU Patient participation: complete - patient participated Level of consciousness: awake and responsive to physical stimuli Pain management: adequate (pain score 0-3) Airway patency: natural airway Cardiovascular status: acceptable, hemodynamically stable and blood pressure returned to baseline Respiratory status: acceptable, blow-by oxygen, face mask, nonlabored ventilation and spontaneous ventilation Hydration status: acceptable Nausea/Vomiting: No No notable events documented. * Anesthesia Procedure Notes - Jacinto Singh CRNA, DNP - 01/13/2025 8:24 AM EDTAssociated Order(s): Airway Airway Date/Time: 01/13/2025 8:06 AM Reason: elective Airway not difficult General Information and Staff Patient location during procedure: OR FLEET MAINTENANCE FOREMAN: Jacinto Singh CRNA, DNP Performed: FLEET MAINTENANCE FOREMAN Patient Condition Indications for airway management: anesthesia Patient position: sniffing Final Airway Details Final airway type: endotracheal airway Successful airway: ETT Cuffed: yes Successful intubation technique: video laryngoscopy Adjuncts used in placement: intubating stylet Endotracheal tube insertion site: oral Blade type: Ambu Hyper 3. ETT size (mm): 7.5 Cormack-Lehane Classification: grade I - full view of glottis Placement verified by: chest auscultation and capnometry Cuff volume (mL): 8 Measured from: lips ETT to lips (cm): 20 Additional Comments Atraumatic. No change to dentition. Easy mask, easy intubation. Patient preoxygenated for 10 minutes prior to induction. Tolerated well * Anesthesia Preprocedure Evaluation - Yonas Kingston MD - 01/12/2025 1:49 PM EDT Patient: Stacey George Procedure Information Date/Time: 01/13/25 0745 Procedures: HYSTEROSCOPY, WITH DILATION AND CURETTAGE OF UTERUS INSERTION, INTRAUTERINE DEVICE Location: [facility] Surgeons: Mat Bowles MD HPI Stacey George is a 54 y.o. female with body mass index is 76.39 kg/m??. and PMHx of obesity (BMI 76), functional paraplegia, HFpEF, hypothyroidism, RLS, mood disorder, Second degree AV block s/p dual chamber PPM (12/05/24) s/p atrial lead replacement (12/29/24), T2DM, HONEY/OHS on 2L who presented initially 01/07 with undifferentiated shock requiring levophed in MICU. Transferred out of ICU to medicine 01/09, currently on midodrine for hypotension. Now for HYSTEROSCOPY, WITH DILATION AND CURETTAGE OF UTERUS (N/A), INSERTION, INTRAUTERINE DEVICE (N/A) Pt previously noted to have incredibly difficult placement for rosendo and required blood pressure cuff on the right calf Cardiology consulted and interrogated pacemaker 01/07 (see cards consult note). Bedside device interrogation demonstrated preserved pacemaker functioning, appropriate settings. Both atrial and ventricular leads capture, sensing, and impedance were assessed with no significant derivation from prior checks. This suggest leads remain in the appropriate position and fully functional (further supported by CXR). NPO STATUS: Activity Level/METS: <4 Type & Screen : reordered 01/12 Lab Results Component Value Date ABO O Negative 01/07/2025 ALLERGIES Allergies[1] MEDICATIONS Outpatient Current Outpatient Medications Medication Instructions albuterol 108 (90 Base) MCG/ACT inhaler 2 puffs, Every 4-6 hours prn aspirin 81 mg, Daily atorvastatin (LIPITOR) 40 mg, Daily buPROPion SR (WELLBUTRIN SR) 400 mg, Daily chlorhexidine (Peridex) 0.12 % solution FILL SUPPLIED CUP (1/2 OUNCE); SWISH IN MOUTH FOR 30 SECONDS TWICE DAILY (AFTER BREAKFAST & BEFORE BEDTIME). SWISH THEN EXPEL REMAINDER OR USE DIRECTED.DO not swallow cyanocobalamin (VITAMIN B-12) 1,000 mcg, Daily Kblcexneckp-Bqhgevpdg-Fiedjd (Trelegy Ellipta) 100-62.5-25 MCG/ACT aerosol powder 1 puff, Daily ipratropium-albuterol (Duo-Neb) 0.5-2.5 mg/3 mL nebulizer solution 3 mL, Every 6 hours PRN levothyroxine (SYNTHROID, LEVOXYL) 300 mcg, Daily before breakfast meloxicam (MOBIC) 15 mg, Daily metFORMIN (GLUCOPHAGE) 500 mg, 2 times daily with meals metOLazone (ZAROXOLYN) 5 mg, Oral, 2 times daily metoprolol succinate XL (TOPROL-XL) 25 mg, Daily oxybutynin (DITROPAN) 5 mg, 2 times daily Ozempic (0.25 or 0.5 MG/DOSE) 0.5 mg, Weekly Repatha SureClick 140 mg, Every 14 days rOPINIRole (REQUIP) 4 mg, Nightly spironolactone (ALDACTONE) 100 mg, Daily torsemide (Demadex) 20 MG tablet 3 tablets, 2 times daily traZODone (DESYREL) 300 mg, Nightly Scheduled Current Scheduled Medications[2] PRNs Current PRN Medications[3] SURGICAL HX: Surgical History[4] SOCIAL HX: Social History[5] OBJECTIVE DATA LABS Lab Results Component Value Date WBC 10.64 (H) 01/11/2025 HGB 8.3 (L) 01/11/2025 HCT 28.0 (L) 01/11/2025 MCV 88 01/11/2025 PLT 341 01/11/2025 Lab Results Component Value Date CALCIUM 8.9 01/11/2025 BUN 15 01/11/2025 CREATININE 0.66 01/11/2025 BCR 23 01/11/2025 NA 134 (L) 01/11/2025 K 5.1 (H) 01/11/2025 CL 98 01/11/2025 CO2 27 01/11/2025 ANIONGAP 9 01/11/2025 No results found for: APTT , INR Lab Results Component Value Date HGBA1C 6.6 (H) 01/07/2025 GLUCOSE 204 (H) 01/11/2025 ABG No results found for: PHART , HIJ0REV , PO2ART , SO2ART , BEART , XLX8ZQP , HCTART , SODIUMART , POTASSIUMART , POCTCL , POCGLU , IONCALART , LACTATE No results found for: PH , PCO2 , PO2 , [id number] , BASEEXC , HCTSYR , KSYR , CLSYR , GLUSYR , CAION , LACTATE EKG Encounter Date: 01/07/25 ECG Adult Result Value EKG DIAGNOSIS CLASS Abnormal Ventricular Rate 91 Atrial Rate 91 PA Interval 186 QRSD Interval 112 QT Interval 366 QTC Interval 450 P [place] 66 R [place] 72 T Wave [place] -77 Diagnosis Normal sinus rhythm Diagnosis Low [...] results can be found in Results Review. ECHO Echo, Adult Transthoracic Complete Result Date: 01/11/2025 [...] is no recent study available for direct wolr-gj-bhoe comparison. CXR: 01/07 COMPARISON: Chest radiograph 04/05/2014 FINDINGS: Enlarged cardiac silhouette which may be accentuated secondary to technique. Mediastinal contours are within normal limits. Left chest wall dual-lead pacemaker is noted. Mild pulmonary vascular congestion. No consolidation, definite pleural effusion or pneumothorax. No acute displaced fracture within the chest. IMPRESSION: Mild pulmonary vascular congestion without overt edema. Physical Exam Airway Mallampati: I Mouth opening: normal TM distance: <3 FB Cardiovascular Rhythm: regular Rate: normal Dental (+) poor dentition Pulmonary (+) decreased breath sounds Neurological Oriented: normal to time, normal to place and normal to person Skin Skin: warm and dry Musculoskeletal Extremities Anesthesia Plan ASA 4 Plan was reviewed with: FLEET MAINTENANCE FOREMAN Anesthesia plan agreed upon was: general ROS Anesthesia: history of previous anesthesia and obstructive sleep apnea (2L at night). Does not have a history of anesthetic complications and PONV. Cardiovascular: cardiomyopathy, CHF and pacemaker (Second degree AV block s/p dual chamber PPM (12/05/24) s/p atriallead replacement (12/29/24)). Respiratory: home oxygen (2L). no asthma: no COPD: HEENT: missing teeth. Neurological: no seizures: Did not have a cerebrovascular accident.Does not have TIA. Neuro additional comments: functional paraplegia; wheelchair/ bedridden about 3 yrs + Musculoskeletal: Does not have cervical spine limited mobility. Gastrointestinal: Does not have GERD.Does not have cirrhosis. morbid obesity. Genitourinary: Does not have chronic renal disease. Hematological/Lymphatic: anemia. History of no DVT. History of no pulmonary embolism. no history of chemotherapy no history of radiation Endocrine/Metabolic: diabetes mellitus. Does not have thyroid disorder. [1] Allergies Allergen Reactions Dilaudid [Hydromorphone] Other - please document in the comment field Hypotension [2] buPROPion SR, 200 mg, Oral, BID insulin lispro, 0-5 Units, Subcutaneous, TID with meals insulin lispro, 0-3 Units, Subcutaneous, Twice at night levonorgestrel, , Intrauterine, Once levothyroxine, 300 mcg, Oral, q AM lidocaine, , , megestrol, 40 mg, Oral, Daily metFORMIN, 500 mg, Oral, BID with meals miconazole, 1 Application, Topical, BID midodrine, 10 mg, Oral, TID Tiotropium [place] Monohydrate, 2 puff, Inhalation, Daily AND mometasone- formoterol, 2 puff, Inhalation, BID rOPINIRole, 4 mg, Oral, Daily torsemide, 40 mg, Oral, Daily [3] PRN medications: acetaminophen, albuterol, glucose OR dextrose OR glucagon (human recombinant), diclofenac, lidocaine, [COMPLETED] Insert peripheral IV AND [COMPLETED] Saline lock IV AND sodium chloride [4] No past surgical history on file. [5] Social History Tobacco Use Smoking status: Former Types: Cigarettes Smokeless tobacco: Never Substance Use Topics Alcohol use: Never Drug use: Never documented in this encounter Plan of Treatment Not on file documented as of this encounter Procedures Procedure Name Priority Date/Time Associated Diagnosis Comments PB ANESTHESIA PLACEHOLDER Routine 01/13/2025 8:06 AM EDT PA AN ELECTIVE ENDOTRACHEAL AIRWAY Routine 01/13/2025 8:06 AM EDT documented in this encounter Results * PA AN ELECTIVE ENDOTRACHEAL AIRWAY, PB ANESTHESIA PLACEHOLDER (01/13/2025 8:06 AM EDT) Narrative Jacinto Singh CRNA, DNP - 01/13/2025 8:06 AM EDT Jacinto Singh CRNA, DNP 01/13/2025 8:25 AM Airway Date/Time: 01/13/2025 8:06 AM Reason: elective Airway not difficult General Information and Staff Patient location during procedure: OR FLEET MAINTENANCE FOREMAN: Singh, Saurabh, FLEET MAINTENANCE FOREMAN, DNP Performed: FLEET MAINTENANCE FOREMAN Patient Condition Indications for airway management: anesthesia Patient position: sniffing Final Airway Details Final airway type: endotracheal airway Successful airway: ETT Cuffed: yes Successful intubation technique: video laryngoscopy Adjuncts used in placement: intubating stylet Endotracheal tube insertion site: oral Blade type: Ambu Hyper 3. ETT size (mm): 7.5 Cormack-Lehane Classification: grade I - full view of glottis Placement verified by: chest auscultation and capnometry Cuff volume (mL): 8 Measured from: lips ETT to lips (cm): 20 Additional Comments Atraumatic. No change to dentition. Easy mask, easy intubation. Patient preoxygenated for 10 minutes prior to induction. Tolerated well Yonas Kingston MD ANESTHESIA ORDERABLES Final Resu lt documented in this encounter Visit Diagnoses Not on filedocumented in this encounter Administered Medications Inactive Administered Medications - up to 3 most recent administrations Medication Order MAR Action Action Date Dose Rate Site dexamethasone (Decadron) injection Intravenous, As needed, Starting on Thu01/13/25 at 0803, Until Thu01/13/25 at 1000, Routine, Anesthesia Intraprocedure Given 01/13/2025 8:03 AM EDT 4 mg esmolol (Brevibloc) infusion 10 mg/mL Intravenous, As needed, Starting on Thu01/13/25 at 0803, Until Thu01/13/25 at 1000, STAT, Anesthesia Intraprocedure Given 01/13/2025 8:09 AM EDT 50 mg Given 01/13/2025 8:03 AM EDT 50 mg fentaNYL (Sublimaze) injection Intravenous, As needed, Starting on Thu01/13/25 at 0803, Until Thu01/13/25 at 1000, Routine, Anesthesia Intraprocedure Given 01/13/2025 9:19 AM EDT 50 mcg Given 01/13/2025 8:03 AM EDT 50 mcg lactated Ringer's infusion Intravenous, Continuous PRN, Starting on Thu01/13/25 at 0751, Until Thu01/13/25 at 1000, Routine New Bag 01/13/2025 7:51 AM EDT lidocaine PF (Xylocaine) 2 % injection Intravenous, As needed, Starting on Thu01/13/25 at 0803, Until Thu01/13/25 at 1000, Routine, Anesthesia Intraprocedure Given 01/13/2025 8:03 AM EDT 100 mg midazolam (Versed) injection Intravenous, As needed, Starting on Thu01/13/25 at 0752, Until Thu01/13/25 at 1000, Routine, Anesthesia Intraprocedure Given 01/13/2025 7:52 AM EDT 2 mg ondansetron (Zofran) injection Intravenous, As needed, Starting on Thu01/13/25 at 0915, Until Thu01/13/25 at 1000, Routine, Anesthesia Intraprocedure Given 01/13/2025 9:15 AM EDT 4 mg propofol (Diprivan) injection Intravenous, As needed, Starting on Thu01/13/25 at 0803, Until Thu01/13/25 at 1000, Routine, Anesthesia Intraprocedure Given 01/13/2025 8:05 AM EDT 50 mg Given 01/13/2025 8:03 AM EDT 150 mg rocuronium (ZeMuron) injection Intravenous, As needed, Starting on Thu01/13/25 at 0803, Until Thu01/13/25 at 1000, Routine, Anesthesia Intraprocedure Given 01/13/2025 8:48 AM EDT 10 mg Given 01/13/2025 8:39 AM EDT 20 mg Given 01/13/2025 8:03 AM EDT 40 mg sugammadex (Bridion) 100 MG/ML injection Intravenous, As needed, Starting on Thu01/13/25 at 0915, Until Thu01/13/25 at 1000, Routine, Anesthesia Intraprocedure Given 01/13/2025 9:20 AM EDT 100 mg Given 01/13/2025 9:17 AM EDT 100 mg Given 01/13/2025 9:15 AM EDT 100 mg documented in this encounter Additional Health Concerns Assessment Noted Time A Body Mass Index follow-up plan has been documented for the patient 01/14/2025 1:28 PM EDT documented as of this encounter Care Teams Devulcanizer Head Relationship Specialty Start Date End Date Vahid Garcia DO [address] [place] [address] PCP - General 01/10/25 documented as of this encounter
[2025-03-10] VITALS (15 sets, daily range): BP systolic 81–110; BP diastolic 40–68; PULSE 82–92; RESP 12–28; TEMP 36.5–37; O2SAT 91–99; BMI 78.5
--- NOTE | 2025-03-10 08:20 | ECG_ITS ---
APPROVED REPORT Exam: Resting ECG HR:84 bpm ECG Measurements Heart Rate 84 AXES MD 210 P 58 QRSd 104 QRS 69 QT 357 T 66 QTc 398 Conclusion SINUS RHYTHM WITH FIRST DEGREE AV BLOCK LOW QRS VOLTAGE IN PRECORDIAL LEADS [QRS DEFLECTION < 1.0 mV IN CHEST LEADS] NO STEMI Electronically signed by : AMMON ARAUJO, 03/10/2025 18:54:49
--- NOTE | 2025-03-10 08:26 | XR_ITS ---
FINAL REPORT CLINICAL HISTORY: SOB COMPARISON: 12/24/2024 FINDINGS: The heart size is at the upper limits of normal. A left-sided pacemaker is present. The mediastinum is normal. There is no focal infiltrate, with pulmonary vascular congestion similar to the prior exam. There are no pleural effusions. There is no pneumothorax. There is no osseous abnormality. IMPRESSION: Pulmonary vascular congestion, which appears similar to the prior exam of 12/24/2024. No new infiltrate is identified. Reviewed, Interpreted and Dictated by Georges Mcknight MD Transcribed by Rosalba Perera Authenticated and . [facility]
--- NOTE | 2025-03-10 08:26 | PC.NURSE ---
Dr Noel notified pt has 2 SIRS criteria if he suspects infection, was asked if he would like blood cultures. He deferred at this time.
--- OUTSIDE RECORDS SUMMARY | 2025-03-10 08:27 | XMS_ITS | Encounter Summary ---
Author Organization [facility] Address [address] [place] [address] Care Team Providers Care Roll Grinder Operator Name Role Phone Vahid Garcia Primary Care Provider [phone] Encounter Details Date Type Department Care Team (Latest Contact Info) Description 01/10/2025 Travel Social History Tobacco Use Types Packs/Day Years [...] any time in the past 12 m [facility], were you homeless or living in a intermediate (including now)? No 01/10/2025 Utilities Answer Date Recorded In the past 12 months has th e [employer], gas, oil, or water company threatened to shut off services in your home? No 01/10/2025 Comments Unknown Sex and Gender Information Value Date Recorded Sex Assigned at Not on file Legal Sex Female 7:51 PM EDT Gender Identity Not on file Sexual Orientation Not on file documented as of this encounter Functional Status * AUDIT-C Score [...] Date of Assessment Author No Risk Indicated 01/10/2025 7:00 PM EDT Aimee Luis RN * Question Answer Date of Assessment Author 1. Wish to be (Past 1 Month) No 025 7:00 PM EDT Aimee Luis RN 2. Non-Specific Active Suici wan Thoughts (Past 1 Month) No 01/10/2025 7:00 PM EDT Elio Luis RN 6. Suicidal Behavior (Lifetime) No 7:00 PM EDT Aimee Luis, LOS documented as of this encounter Plan of Treatment Not on file documented as of this encounter Visit Diagnoses Not on filedocumented in this encounter Additional Health Concerns Assessment Noted Time A Body Mass Index follow-up plan has been documented for the patient 01/14/2025 1:28 PM EDT documented as of this encounter Care Teams Roll Grinder Operator Relationship Specialty Start Date End Date Vahid Garcia DO [address] [place] [address] PCP - General 01/10/25 documented as of this encounter
--- OUTSIDE RECORDS SUMMARY | 2025-03-10 08:27 | XMS_ITS | Encounter Summary ---
Author Organization [facility] Address [address] [place] [address] Care Team Providers Care Felt Dyeing Machine Tender Name Role Phone Vahid Garcia Primary Care Provider [phone] Encounter Details Date Type Department Care Team (Latest Contact Info) Description 01/11/2025 Travel Social History Tobacco Use Types Packs/Day [...] any time in the past 12 m [facility], were you homeless or living in a detention (including now)? No 01/10/2025 Utilities Answer Date Recorded In the past 12 months has th e electric, gas, oil, or water company threatened to shut off services in your home? No 01/10/2025 Comments Unknown Sex and Gender Information Value Date Recorded Sex Assigned at Not on file Legal Sex Female 7:51 PM EDT Gender Identity Not on file Sexual Orientation Not on file documented as of this encounter Plan of Treatment Not on file documented as of this encounter Visit Diagnoses Not on filedocumented in this encounter Additional Health Concerns Assessment Noted Time A Body Mass Index follow-up plan has been documented for the patient 01/14/2025 1:28 PM EDT documented as of this encounter Care Teams Felt Dyeing Machine Tender Relationship Specialty Start Date End Date Vahid Garcia DO [address] [place] [address] [place] [id number] PCP - General 01/10/25 documented as of this encounter
--- OUTSIDE RECORDS SUMMARY | 2025-03-10 08:27 | XMS_ITS | Encounter Summary ---
Author Organization [facility] Address [address] [place] [address] Care Team Providers Care Aviation Electrical Technician Name Role Phone Brian Arguelles MD Primary Care Provider [phone] Encounter Details Date Type Department Care Team (Latest Contact Info) Description 01/09/2025 Travel Social History Tobacco Use Types Packs/Day Years Used Date Smoking Tobacco: Never Assessed Humiliation, Afraid, Rape, and Kick questionnair e [...] the money to buy more. Never true 06/24/20 25 Within the past 12 months, t [...] in the past 12 m [facility], were you homeless or living in a long-term (including now)? No 01/10/2025 Utilities Answer Date Recorded In the past 12 months has th e [employer], gas, oil, or water company threatened to [...] Date of Assessment Author No Risk Indicated 01/09/2025 8:00 AM EDT Jonatan Stallworth RN * Question Answer Date of Assessment Author 1. Wish to be (Past 1 Month) No 025 8:00 AM EDOnofre Galindo, LOS 2. Non-Specific Active Suici wan Thoughts (Past 1 Month) No 01/09/2025 8:00 AM Onofre Haskins, LOS 6. Suicidal Behavior (Lifetime) No 8:00 AM EDOnofre Galindo, LOS documented as of this encounter Plan of Treatment Not on file documented as of this encounter Visit Diagnoses Not on filedocumented in this encounter Additional Health Concerns Infection Onset Date Last Indicated Resolved Time Gastrointestinal Rule-Out 01/07/2025 01/07/2025 9:19 PM EDT Assessment Noted Time A Body Mass Index follow-up plan has been documented for the patient 01/14/2025 1:28 PM EDT documented as of this encounter Care Teams Aviation Electrical Technician Relationship Specialty Start Date End Date Brian Arguelles MD [address] [place] [address] PCP - General 11/30/20 01/09/25 documented as of this encounter
--- OUTSIDE RECORDS SUMMARY | 2025-03-10 08:27 | XMS_ITS | Encounter Summary ---
Author Organization [facility] Address [address] [place] [address] Care Team Providers Care Office Manager Executive Assistant Name Role Phone Vahid Garcia Primary Care Provider [phone] Encounter Details Date Type Department Care Team (Latest Contact Info) Description 01/12/2025 Travel Social History Tobacco Use Types Packs/Day [...] time in the past 12 m [facility], were you homeless or living in a correction (including now)? No 01/10/2025 Utilities Answer Date [...] Date of Assessment Author No Risk Indicated 01/12/2025 9:09 PM LEANAT Thelma Burnham RN * Question Answer Date of Assessment Author 1. Wish to be (Past 1 Month) No 025 9:09 PM Lexi Cancino RN 2. Non-Specific Active Suici wan Thoughts (Past 1 Month) No 01/12/2025 9:09 PM Lexi Cancino RN 6. Suicidal Behavior (Lifetime) No 9:09 PM Lexi Cancino RN documented as of this encounter Plan of Treatment Not on file documented as of this encounter Visit Diagnoses Not on filedocumented in this encounter Additional Health Concerns Assessment Noted Time A Body Mass Index follow-up plan has been documented for the patient 01/14/2025 1:28 PM EDT documented as of this encounter Care Teams Office Manager Executive Assistant Relationship Specialty Start Date End Date Vahid Garcia DO [address] [place] [id number] PCP - General 01/10/25 documented as of this encounter
--- OUTSIDE RECORDS SUMMARY | 2025-03-10 08:28 | XMS_ITS | Clinical Summary ---
Author Organization [facility] Address [address] [place] [address] Care Team Providers Care Manager Labor Delivery Name Role Phone Catherine Alcaraz Dr Primary Care Provider Unavailabl e Encounters Date Type Department Care Team Description 03/08/2025 Orders Only [facility] - Cardiovascular Medicine [address] [facility] [address] [place] [address] Roger Aranda MD Cardiac pacemaker in situ (Primary Dx) 02/01/2025 Telephone [facility] - Cardiovascular Medicine [address] [facility] [address] [place] [address] Roger Aranda MD 01/09/2025 Telephone [facility] Administrative Services [address] [facility] [address] [place] [address] Deepa Cano RN Hospital Follow Up 12/14/2024 Orders Only [facility] - Cardiovascular Medicine [address] [address] Roger Aranda MD Cardiac pacemaker in situ (Primary Dx) 12/13/2024 Telephone [facility] - Cardiovascular Medicine [address] [place] [address] Rosa Goel, LOS from Last 3 Months Social History Tobacco Use Types Packs/Day Years Used Date Smoking Tobacco: Never Assessed Comments Unknown Sex and Gender Information Value Date Recorded Sex Assigned at Not on file Legal Sex Female 7:12 PM EDT Gender Identity Not on file Sexual Orientation Not on file Plan of Treatment Health Maintenance Due Date Last Done Comments CT Colonography 1968 Colonoscopy 1968 Colorectal Cancer Screening 1968 FIT-DNA (Cologuard) 1968 FIT 1968 FOBT 1968 HIV Screening 1968 Hepatitis C Screening 1968 Lipid Panel 1968 Medicare Annual Wellness (AWV) 1968 Sigmoidoscopy 1968 MMR Vaccines (1 of 1 - Standard series) 1969 BMI Intervention 1974 Diabetes Screening 1986 Hepatitis B Screening 1986 DTaP/Tdap/Td Vaccines (1 - Tdap) 1987 Hepatitis B Vaccines (1 of 3 - 19+ 3-dose series) 1987 Pneumococcal Vaccine: 50+ Years (1 of 2 - PCV) 1987 Pap Smear 1989 Cervical Cancer Screening 1998 HPV/Cotest 1998 Mammogram 2008 Zoster Vaccines (1 of 2) 2018 COVID-19 Vaccine (1 - 2023-2 5 season) 2024 Depression Risk Screening 07/20/2024 SDOH Screening 07/20/2024 Influenza Vaccine (#1) 2025 3, 05/21/2020, 04/25/2016 HIB Vaccines Aged Out No longer eligi ble based on patient's age to complete this topic HPV Vaccines Aged Out No longer eligi ble based on patient's age to complete this topic Hepatitis A Vaccines Aged Out No long er eligible based on patient's age to complete this topic IPV Vaccines Aged Out No longer eligi ble based on patient's age to complete this topic Meningococcal B Vaccine Aged Out No l onger eligible based on patient's age to complete this topic Meningococcal Vaccine Aged Out No benedict concepcion eligible based on patient's age to complete this topic Rotavirus Vaccines Aged Out No longer eligible based on patient's age to complete this topic Procedures Procedure Name Priority Date/Time Associated Diagnosis Comments PM REMOTE - PACEART Routine 02/17/2025 Cardiac pacemaker in situ from Last 3 Months Results * PM Remote - PaceArt (02/17/2025) Anatomical Region Laterality Modality Other us Auras R. Atreya MD CV PA DEVICE EAP-REMOTE Final Result from Last 3 Months Insurance [employer] MEDICARE ADVANTAGE [employer] [facility] [employer] Care Teams Manager Labor Delivery Relationship Specialty Start Date End Date Catherine Alcaraz Dr. PCP - General 11/17/24
--- OUTSIDE RECORDS SUMMARY | 2025-03-10 08:28 | XMS_ITS | Encounter Summary ---
Author Organization [facility] Address [address] [place] [address] Care Team Providers Care Lagging Machine Operator Name Role Phone Catherine Alcaraz Dr Primary Care Provider Unavailabl e Reason for Visit * Reason Onset Date Comments Hospital Follow Up 01/09/2025 Encounter Details Date Type Department Care Team (Late st Contact Info) Description 01/09/2025 Telephone [facility] Administrative Services [address] [place] [id number] Deepa Cano, LOS Hospital Follow Up Social History Tobacco Use Types Packs/Day Years [...] Diagnoses Not on filedocumented in this encounter Care Teams Lagging Machine Operator Relationship Specialty Start Date End Date Catherine Alcaraz Dr. PCP - General 11/17/24 documented as of this encounter
--- OUTSIDE RECORDS SUMMARY | 2025-03-10 08:28 | XMS_ITS | Clinical Summary ---
Author Organization [facility] Address [address] [place] [address] Care Team Providers Care Caster Operator Name Role Phone Vahid Garcia Nazia DO Primary Care Provider [phone] Allergies Active Allergy Reactions Criticality Noted Date Comments Hydromorphone Other - please docum ent in the comment field Low 01/07/2025 Hypotension Medications albuterol 108 (90 Base) MCG/ACT inhaler Inhale 2 puffs every 4 to 6 hours as needed for wheezing. Active aspirin 81 MG EC tablet Take 1 tablet by mouth daily. Active atorvastatin (Lipitor) 40 MG tablet Take 1 tablet by mouth daily. Active buPROPion SR (Wellbutrin SR) 200 MG 12 hr tablet Take 2 tablets by mouth daily. Do not crush, chew, or split. Active cyanocobalamin 1000 MCG tablet Take 1 tablet by mouth daily. Active Evolocumab (Repatha SureClick) 140 MG/ML solution auto-injector autoinjector Inject 1 mL under the skin every 14 days. Active Fluticasone-Umec lidin-Vilant (Trelegy Ellipta) 100-62.5-25 MCG/ACT aerosol powder Inhale 1 puff daily. Active ipratropium-albu terol (Duo-Neb) 0.5-2.5 mg/3 mL nebulizer solution Take 3 mL by nebulization every 6 hours as needed for wheezing. Active levothyroxine (Synthroid, Levoxyl) 150 MCG tablet Take 2 tablets by mouth daily before breakfast. Active metFORMIN (Glucophage) 500 MG tablet Take 1 tablet by mouth 2 times a day with meals. Active oxybutynin (Ditropan) 5 MG tablet Take 1 tablet by mouth 2 times a day. Active rOPINIRole (Requip) 2 MG tablet Take 2 tablets by mouth nightly. Active semaglutide (Ozempic, 0.25 or 0.5 MG/DOSE,) 2 MG/1.5ML solution pen-injector inj. pen Inject 0.375 mL under the skin 1 time per week. Active torsemide (Demadex) 20 MG tablet Take 2 tablets by mouth daily. Active traZODone (Desyrel) 150 MG tablet Take 1 tablet by mouth nightly. Active miconazole (Micotin) 2 % powder Apply bid to rash 43 g Active midodrine (Proamatine) 10 MG tablet Take 1 tablet by mouth 3 times a day. 90 tablet 2 Active Active Problems No known active problems Resolved Problems Problem Noted Date Diagnosed Date Resolved Date Shock 01/07/2025 01/14/2025 Class III obesity with body mass index (BMI) of 40.0 or higher 01/07/2025 01/14/2025 Abnormal uterine and vaginal bleeding, unspecified 01/07/2025 01/14/2025 Encounters Date Type Department Care Team Description 01/25/2025 Telephone [facility] Obstetrics & Gynecology [address] [place] [phone] Sangeeta Braswell MD 01/13/2025 7:51 AM EDT Anesthesia Event [facility] [address] [place] [phone] Yonas Kingston MD Rock, Holly R, PA 01/13/2025 7:45 AM EDT - 01/13/2025 9:15 AM EDT Surgery [facility] [address] [place] [phone] Mat Bowles MD HYSTEROSCOPY, WITH DILATION AND CURETTAGE OF UTERUS [15291 (CPT )] 01/13/2025 Travel 01/12/2025 Travel 01/11/2025 Travel 01/10/2025 Travel 01/09/2025 Travel 01/07/2025 11:00 AM EDT - 01/14/2025 4:50 PM EDT Hospital Encounter [facility] [address] [place] [address] Brenton Patton MD Dahlgren, Amy E, MD Kalema, Anna G, MD Smith, Jimmy S, DO Weaver, Daniel T, MD Gray, Adam J, MD Shock ([facility]) (Primary Dx); GWEN (acute kidney injury) ([facility]); Chronic heart failure with preserved ejection fraction ([facility]); Abnormal uterine and vaginal bleeding, unspecified; Morbid obesity with body mass index (BMI) of 40.0 or higher ([facility]) [E66.01]; Class III obesity with body mass index (BMI) of 40.0 or higher ([facility]) Discharge Disposition: Home or Self Care 01/07/2025 Travel from Last 3 Months Social History Tobacco [...] any time in the past 12 m [facility], were you homeless or living [...] on file Sexual Orientation Not on file Last Filed Vital Signs Vital Sign Reading [...] Mass Index 73.75 01/13/2025 9:42 AM EDT Plan of Treatment Health Maintenance Due Date Last Done Comments [facility]-Depression Screening 1968 [facility]-Medicare Annual Wellness (AWV) 1968 [facility]-/Child/Adol SDOH Screenings 1968 [id number] Vaccine (#1) 1973 Diabetes: Dental Exam 1978 [facility]-Hepatitis B Vaccines (1 of 3 - 19+ 3-dose series) 1987 [facility]-Pap Smear 1989 [facility]-Cervical Cancer Screening 1998 [facility]-HPV/Cotest 1998 CT Colonography 2013 Colonoscopy 2013 FIT-DNA 2013 FIT 2013 FOBT 2013 Sigmoidoscopy 2013 [facility]-Colorectal Cancer Screening 2013 [facility]-DTaP,Tdap,and Td Vaccine s (2 - Td or Tdap) 10/22/2016 10/22/2006 [facility]-Breast Cancer Screening 2018 [facility]-Zoster Vaccines (1 of 2) 2018 [facility]-Pneumococcal Vaccine: 50 + Years (2 of 2 - PCV) 05/21/2021 05/21/2020 [facility]-Influenza Vaccine (#1) 03/20/202510/03, 05/21/2020, 04/25/2016 [facility]-Diabetes: Hemoglobin A1C 07/07/2025 01/07/2025 [facility]- SDOH Screenings 07/12/2025 [facility]-Adult SDOH Screenings 07/12/2025 01/10/2025 [facility]-HIV Screening Completed 01/07/2025 [facility]-Hepatitis C Screening Completed 01/07/2025 [facility]-Obesity Intervention Completed 025, 01/07/2025 HPV Vaccines Aged Out No longer eligi [...] EDT Abnormal uterine and vaginal bleeding, unspecified PB ANESTHESIA PLACEHOLDER Routine 01/13/2025 8:06 AM EDT DC AN ELECTIVE ENDOTRACHEAL AIRWAY Routine 01/13/2025 8:06 AM EDT OXYGEN THERAPY Routine 01/13/2025 8:00 AM EDT DC INSERT INTRAUTERINE DEVICE 01/13/2025 7:36 AM EDT Abnormal uterine and vaginal bleeding, unspecified DC HYSTEROSCOPY,W/ENDO BX 01/13/2025 7:36 AM EDT Abnormal [...] W/O DIFFERENTIAL Routine 01/12/2025 2:34 PM EDT BASIC METABOLIC PANEL, PLASMA Routine 01/12/2025 2:34 PM EDT TYPE AND SCREEN Routine 01/12/2025 2:34 PM EDT POCT GLUCOSE [...] UNSOLICITED RESULTS Routine 01/11/2025 11:33 AM EDT BASIC METABOLIC PANEL, PLASMA Routine 01/11/2025 11:29 AM EDT CBC W/O DIFFERENTIAL Routine 01/11/2025 11:29 AM EDT ECHO, ADULT [...] Routine 01/09/2025 1:30 AM EDT Shock (CMS/HCC) DC INSERT CATH,ART,PERCUT,SHORTTE RM Routine 01/09/2025 1:30 AM EDT Shock (CMS/HCC) COMPREHENSIVE METABOLIC PANEL, PLASMA Routine 01/09/2025 1:06 AM EDT CBC W/O DIFFERENTIAL Routine 01/09/2025 1:06 AM EDT FERRITIN, SERUM Routine 01/09/2025 1:06 AM EDT TROPONIN T, HIGH SENSITIVITY, 0 HOUR, PLASMA, REFLEX TO 2 HOUR STAT 01/09/2025 1:06 AM EDT POCT GLUCOSE METER [...] UNSOLICITED RESULTS Routine 01/08/2025 11:36 AM EDT DC CRITICAL CARE, E/M 30-74 MINUTES Routine 01/08/2025 11:01 AM EDT Shock (CMS/HCC) METHICILLIN RESISTANT STAPHYLOCOCCUS AUREUS (MRSA) BY PCR Routine 01/08/2025 9:45 AM EDT WOUND OSTOMY EVAL AND TREAT Routine 01/08/2025 9:22 AM EDT LACTATE, VENOUS Timed 01/08/2025 8:35 AM EDT OXYGEN THERAPY Routine 01/08/2025 8:00 AM EDT POCT GLUCOSE METER UNSOLICITED RESULTS Routine 01/08/2025 6:03 AM EDT LACTATE, VENOUS Timed 01/08/2025 6:03 AM EDT HEMOGLOBIN AND HEMATOCRIT, BLOOD Routine 01/08/2025 4:54 AM EDT LACTATE, VENOUS Timed 01/08/2025 4:01 AM EDT LACTATE, VENOUS Timed 01/08/2025 1:49 AM EDT POCT GLUCOSE METER UNSOLICITED RESULTS Routine 01/08/2025 12:14 AM EDT IRON & TOTAL IRON BINDING CAPACITY, PLASMA (INCLUDES TRANSFERRIN) Add-On 01/08/2025 12:01 AM EDT LACTATE, VENOUS Timed 01/08/2025 12:01 AM EDT PHOSPHORUS, PLASMA Routine 01/08/2025 12 :01 AM EDT MAGNESIUM, PLASMA Routine 01/08/2025 12: 01 AM EDT IONIZED CALCIUM, SERUM Routine 12:01 AM EDT CBC W/O DIFFERENTIAL Routine 01/08/2025 12:01 AM EDT BASIC METABOLIC PANEL, PLASMA Routine 01/08/2025 12:01 AM EDT LACTATE, VENOUS Timed 01/07/2025 10:32 PM EDT OXYGEN THERAPY Routine 01/07/2025 8:00 PM EDT BLOOD GAS PANEL, VENOUS Routine 01/08/20 6:42 PM EDT EXTRA TUBE GOLD TOP Routine 01/07/2025 6 :29 PM EDT EXTRA TUBES Routine 01/07/2025 6:29 PM EDT EXTRA TUBE LIGHT BLUE TOP Routine 01/07/2025 6:29 PM EDT EXTRA TUBES Routine 01/07/2025 6:29 PM EDT BETA HYDROXYBUTYRIC ACID Routine 01/07/2025 6:29 PM EDT PROCALCITONIN, PLASMA Routine 01/07/2025 6:29 PM EDT PHOSPHORUS, PLASMA STAT 01/07/2025 6: 29 PM EDT MAGNESIUM, PLASMA STAT 01/07/2025 6:2 9 PM EDT CBC WITH AUTO DIFFERENTIAL STAT 01/07/2025 6:29 PM EDT COMPREHENSIVE METABOLIC PANEL, PLASMA STAT 01/07/2025 6:29 PM EDT HEMOGLOBIN A1C Routine 01/07/2025 6:29 PM EDT NASOPHARYNGEAL RESPIRATORY PANEL Routine 01/07/2025 6:22 PM EDT INFLUENZA A,B AND RESPIRATORY SYNCYTIAL VIRUS (RSV) BY PCR Routine 01/07/2025 6:22 PM EDT MULTI DRUG RESISTANCE TEST Routine 01/07/2025 6:20 PM EDT BELGICA AURIS SURVEILLANCE BY PCR Routine 01/07/2025 6:20 PM EDT POCT GLUCOSE METER UNSOLICITED RESULTS Routine 01/07/2025 6:16 PM EDT DC CRITICAL CARE, E/M 30-74 MINUTES Routine 01/07/2025 5:04 PM EDT Shock (CMS/HCC) GWEN (acute kidney injury) (CMS/HCC) Chronic heart failure with preserved ejection fraction (CMS/HCC) URINE VIERA PANEL STAT 01/07/2025 3:18 PM EDT URINALYSIS WITH REFLEX MICROSCOPIC STAT 01/07/2025 3:18 PM EDT URINALYSIS WITH REFLEX MICROSCOPIC AND CULTURE STAT 01/07/2025 3:18 PM EDT ECG ADULT STAT 01/07/2025 2:00 PM EDT XR CHEST 1 VIEW STAT 01/07/2025 1:59 PM EDT BLOOD GAS PANEL, VENOUS STAT 01/08/20 1:50 PM EDT TROPONIN T, HIGH SENSITIVITY, 2 HOUR, PLASMA Timed 01/07/2025 1:50 PM EDT BLOOD CULTURE (AEROBIC/ANAEROBIC SET) [...] ANTIBODY DIFFERENTIATION STAT 01/07/2025 11:31 AM EDT HEPATITIS C ANTIBODY - ED W/REFLEX TO HCV QUANT PCR STAT 01/07/2025 11:31 AM EDT TYPE AND SCREEN STAT 01/07/2025 11:31 AM EDT FREE T4, PLASMA STAT 01/07/2025 11:31 AM EDT TSH STAT 01/07/2025 11:31 AM EDT N-TERMINAL PROBNP, PLASMA STAT 01/07/2025 11:31 AM EDT TROPONIN T, HIGH SENSITIVITY, 0 HOUR, PLASMA, REFLEX TO 2 HOUR STAT 01/07/2025 11:31 AM EDT COMPREHENSIVE METABOLIC PANEL, PLASMA STAT 01/07/2025 11:31 AM EDT PROTHROMBIN TIME(PT) / INR STAT 01/07/2025 11:31 AM EDT CBC WITH AUTO DIFFERENTIAL STAT 01/07/2025 11:31 AM EDT BLOOD CULTURE (AEROBIC/ANAEROBIC SET) STAT 01/07/2025 11:31 AM EDT POCT VENOUS BLOOD GAS GEM UNSOLICITED RESULTS Routine 01/07/2025 11:18 AM EDT ECG ADULT STAT 01/07/2025 11:12 AM EDT CRITICAL CARE Routine 01/07/2025 11:00 AM EDT DC CRITICAL CARE, E/M 30-74 MINUTES Routine 01/07/2025 11:00 AM EDT from Last 3 Months Results * (ABNORMAL) POCT glucose meter (01/14/2025 11:49 AM EDT) Only the most recent of32 resultswithin the time period is included. [facility] Signature POCT Glucose 206(H) 74 - 99 mg/dL [...] 01/14/2025 1:38 PM EDT [facility] Inter Com Servicer ID Alobwede Arcelia Mazariegos 01/14/2025 1:38 PM EDT [facility] Device ID [id number] 01/14/2025 1:38 PM EDT [facility] Specimen Type POC Capillary 01/14/2025 1:38 PM EDT [facility]ALTH[facility] Blood Capillary blood specimen / Unknown 01/14/2025 11:49 AM EDT 01/14/2025 1:38 PM EDT us Neo Viera MD LAB POINT OF CARE TE ST DOCKED DEVICE UNSOLICITED RESULTS Final Result [facility] [address] [place] [address] * (ABNORMAL) CBC W/O Differential (01/14/2025 2:44 AM EDT) Only the most recent of6 resultswithin the time period is included. WBC Count 11.01(H) 3.70 - 10.30 10*3/uL LAB HEMATOLOGY METHOD 01/14/2025 3:03 AM EDT [facility] RBC Count 3.38(L) 3.90 - 5.20 10*6/uL LAB HEMATOLOGY METHOD 01/14/2025 3:03 AM EDT [facility] HGB 8.9(L) 11.2 - 15.7 g/dL LAB HEMATOLOGY METHOD 01/14/2025 3:03 AM EDT [facility] HCT 29.7(L) 34.0 - 45.0 % LAB HEMATOLOGY METHOD 01/14/2025 3:03 AM EDT [facility] Platelet Count 335 155 - 369 10*3/uL LAB HEMATOLOGY METHOD 01/14/2025 3:03 AM EDT [facility] MCV 88 79 - 98 fL LAB HEMATOLOGY METHOD 01/14/2025 3:03 AM EDT [facility] MCH 26.3 26.0 - 32.0 pg LAB HEMATOLOGY METHOD 01/14/2025 3:03 AM EDT [facility] MCHC 30.0(L) 30.7 - 35.5 g/dL LAB HEMATOLOGY METHOD 01/14/2025 3:03 AM EDT [facility] RDW 15.8(H) 11.5 - 14.5 % LAB HEMATOLOGY METHOD 01/14/2025 3:03 AM EDT [facility] MPV 9.6 8.8 - 12.5 fL LAB HEMATOLOGY METHOD 01/14/2025 3:03 AM EDT [facility] nRBC 0.0 <=0.0 per 100 WBCs LAB HEMATOLOGY METHOD 01/14/2025 3:03 AM EDT [facility] Blood Venous blood specimen / Unknown Venipuncture / Unknown 01/14/2025 2:44 AM EDT 01/14/2025 2:50 AM EDT us Neo Viera MD LAB BLOOD ORDERABLES Final Resul t [facility] [address] [place] [address] * (ABNORMAL) Basic Metabolic Panel, Plasma (01/14/2025 2:44 AM EDT) Only the most recent of4 resultswithin the time period is included. Glucose, Plasma 266(H) 74 - 99 mg/dL 01/14/2025 3:21 AM EDT [facility] BUN, Plasma 27(H) 7 - 21 mg/dL 01/14/2025 3:21 AM EDT [facility] Creatinine, Plasma 1.09 0.60 - 1.10 mg/dL 01/14/2025 3:21 AM EDT [facility] BUN/Creatinine Ratio 25 01/14/2025 3:21 AM EDT [facility] Sodium, Plasma 133(L) 136 - 145 mmol/L 01/14/2025 3:21 AM EDT [facility] Potassium, Plasma 5.2(H) 3.6 - 4.9 mmol/L 01/14/2025 3:21 AM EDT [facility] Chloride, Plasma 96(L) 97 - 107 mmol/L 01/14/2025 3:21 AM EDT [facility] CO2, Plasma 26 22 - 29 mmol/L 01/14/2025 3:21 AM EDT [facility] Anion Gap 11 6 - 16 mmol/L 01/14/2025 3:21 AM EDT [facility] Total Calcium, Plasma 9.5 8.9 - 10.2 mg/dL 01/14/2025 3:21 AM EDT [facility] eGFRcr 59.7 mL/min/1.7 3m*2 01/14/2025 3:21 AM EDT [facility] Comment:Reported eGFRcr in m L/min/1.73m2 is based the CKD-EPI 2020 equation that does not use a race coefficient. Blood Venous blood specimen / Unknown Venipuncture / Unknown 01/14/2025 2:44 AM EDT 01/14/2025 2:49 AM EDT us Neo Viera MD LAB BLOOD ORDERABLES Final Resul t [facility] [address] [place] [address] * Surgical Pathology Exam (01/13/2025 9:03 AM EDT) Case Report Surgical Pathology Case: [id number] Authorizing Provider: Mat Bowles MD Collected: 01/13/2025 0903 Ordering Location: [facility] Received: 01/13/2025 0947 Pathologist: Conrado Sanchez MD Specimen: Other (specify site), Endometrial tissue - permanent 01/16/2025 10:17 AM EDT [facility] Final Diagnosis ENDOMETRIUM, BIOPSY: - BENIGN ENDOMETRIUM WITH POLYP FORMATION AND EXTENSIVE TUBAL METAPLASIA. - NO EVIDENCE OF ATYPIA OR MALIGNANCY. 01/16/2025 10:17 AM EDT [facility] at 1017 EDT Clinical Information Abnormal uterine and vaginal bleeding, unspecified [N93.9] 01/16/2025 10:17 AM EDT [facility] Gross Description A. ENDOMETRIAL TISSUE - PERMANENT Received in formalin labeled endometrial tissue is an aggregate of pink-quinn soft tissue and red-brown hemorrhagic material measuring 2.8 x 1.3 x 0.4 cm. Entirely submitted in cassette A1. Cold Time: 1m Laisha Armendariz 01/16/2025 10:17 AM EDT [facility] Note: A resident was involved in the service. I attest I examined the relevant preparations for the specimens and confirmed the diagnosis or interpretation. 01/16/2025 10:17 AM EDT [facility] Tissue Topography unknown / Unknown 01/13/2025 9:03 AM EDT 01/13/2025 9:47 AM EDT Comment:Pre-op diagnosis: Abnormal uterine and vaginal bleeding, unspecified [N93.9] us Mat Bowles MD LAB PATHOLOGY ORDERABLES Final R esult [facility] [address] [place] [address] * DC AN ELECTIVE ENDOTRACHEAL AIRWAY, PB ANESTHESIA PLACEHOLDER (01/13/2025 8:06 AM EDT) Narrative Jacinto Singh CRNA, DNP - 01/13/2025 8:06 AM EDT Jacinto Singh CRNA, DNP 01/13/2025 8:25 AM Airway Date/Time: 01/13/2025 8:06 AM Reason: elective Airway not difficult General Information and Staff Patient location during procedure: OR VIDEO GAME ENGINEER: Jacinto Singh CRNA, DNP Performed: ANGELO Patient Condition Indications for airway management: anesthesia [...] 10 minutes prior to induction. Tolerated well us Yonas Kingston MD ANESTHESIA ORDERABLES Final Resu lt * POCT , URINE (01/13/2025 7:28 AM EDT) POCT Test, Urine Negative Males and Non- Females: Negative 01/13/2025 7:35 AM EDT [facility] Inter Com Servicer ID Erin Jovel 01/13/2025 7:35 AM EDT HEALTHCARE LAB Device ID [id number] 01/13/2025 7:35 AM EDT [facility] Urine Urine specimen obtained by clean catch procedure / Unknown 01/13/2025 7:28 AM EDT 01/13/2025 7:35 AM EDT us Neo Viera MD LAB POINT OF CARE TE ST DOCKED DEVICE UNSOLICITED RESULTS Final Result [facility] [address] [place] [address] * XR Shoulder Left 2+ Views (01/12/2025 [...] IV (SMARTFORM LINK) (01/12/2025 2:40 PM EDT) Only the most recent of2 resultswithin the time period is included. Narrative Delaney Cunningham RN - 01/12/2025 2:40 [...] and provided to bedside RN for labs. Neo Viera MD IV THERAPY ORDERABLES Final Resu lt * Type and Screen (01/12/2025 2:34 PM EDT) Only the most recent of2 resultswithin the time period is included. ABO/Rh O Negative 01/12/2025 1:53 PM EDT BLOOD BANK Antibody Screen Negative 01/12/2025 1:53 PM EDT BLOOD BANK Specimen Expiration 01/15/2025 23:59 01/12/2025 1:53 PM EDT BLOOD BANK Blood Venous blood specimen / Unknown Venipuncture / Unknown 01/12/2025 2:34 PM EDT 01/12/2025 2:42 PM EDT Susan LUND LAB BLOOD BANK TEST ORDERABLES F inal Result BLOOD BANK [address] [place] [address], [place] * ECHO, ADULT TRANSTHORACIC COMPLETE W/ CONTRAST [...] cm/s MANNY ISCV MV E/A 0.8 cm/s MANYN ISCV TR Vmax 232.0 cm/s MANNY ISCV [...] is no recent study available for direct [id number] comparison. Left Ventricle The left ventricle is [...] is no recent study available for direct [id number] comparison. us Elvia Lopez AMUSEMENT EQUIPMENT OPERATOR, DNP CV ECHO PROCEDURES Fi nal Result * US Pelvis Transvaginal (01/09/2025 6:06 PM [...] DO IMG US PROCEDURES Final Result * VAS US Venous Duplex Lower Extremity [...] MD on 01/09/2025 7:49 PM us Elvia Lopez AMUSEMENT EQUIPMENT OPERATOR, DNP CV VASCULAR PROCEDURE S Final Result * (ABNORMAL) Hemoglobin and Hematocrit, Blood (01/09/2025 10:27 AM EDT) Only the most recent of3 resultswithin the time period is included. [facility] HGB 7.7(L) 11.2 - 15.7 g/dL LAB HEMATOLOGY METHOD 01/09/2025 10:58 AM EDT [facility] HCT 25.3(L) 34.0 - 45.0 % LAB HEMATOLOGY METHOD 01/09/2025 10:58 AM EDT [facility] Blood Venous blood specimen / Unknown Venipuncture / Unknown 01/09/2025 10:27 AM EDT 01/09/2025 10:42 AM EDT us Adalgisa Alexis MD LAB BLOOD ORDERABLES Final Resu lt [facility] [address] [place] [address] * Cortisol (01/09/2025 8:38 AM EDT) [facility] Cortisol 11.20 Before 10am: 3.7 - 19.4. After 5pm: 2.9 - 17.3 ug/dL 01/09/2025 10:00 AM EDT [facility] Comment:Testing performed on Guzman Senior Backup Administrator, standardized against JAIL Reference Standard concentration values assigned by LC-MS/MS and verified by BCR 192 and BCR 193 certified reference materials. Blood Venous blood specimen / Unknown Venipuncture / Unknown 01/09/2025 8:38 AM EDT 01/09/2025 8:45 AM EDT us Adalgisa Alexis MD LAB REF LAB BLOOD AND FLUID ORD Final Result Performing Organization Address [facility]/ZIP Co de Phone Number [facility] [address] [place] [address] * Transfuse RBC (01/09/2025 6:52 AM EDT) Adalgisa Alexis MD BLOOD TRANSFUSION ORDERABLES Fi nal Result * (ABNORMAL) Troponin T, High Sensitivity, 2 Hour, Plasma (01/09/2025 6:29 AM EDT) Only the most recent of2 resultswithin the time period is included. [facility] Troponin T, High Sensitivity, 2 Hour 16(H) <14 ng/L 01/09/2025 6:58 AM EDT [facility] Troponin Delta 7 <10 ng/L 01/09/2025 6:58 AM EDT [facility] Troponin Delta Interpretation Not Significant 01/09/2025 6:58 AM EDT [facility] Comment:Not Significant. No acute change in troponin observed between the baseline and 2 hour samples. Blood Venous blood specimen / Unknown Venipuncture / Unknown 01/09/2025 6:29 AM EDT 01/09/2025 6:36 AM EDT Adalgisa Alexis MD LAB BLOOD ORDERABLES Final Resu lt Performing Organization Address City/[facility]/ZIP Co de Phone Number [facility] [address] [place] [address] * Prepare Leukocyte Reduced RBC: 1 Units, Leukocyte reduced (CMV reduced risk) (01/09/2025 2:40 AM EDT) Product Code I7076Z22 CH BLOO D BANK Dispense Status Transfused BLOOD BANK Blood Expiration Date [id number] BLOOD BANK Unit Number [id number] PATI B LOOD BANK Product Blood Type 9500 BLOOD BANK Blood Type O- BLOOD BANK Crossmatch Compatible BLOOD BANK Other us Adalgisa Alexis MD BLOOD BANK PRODUCT ORDERABLES F inal Result BLOOD BANK [address] [place] [address], * DC INSERT CATH,ART,PERCUT,SHORTTERM, HC INSERT CATH,ART,PERCUT,SHORTTERM (01/09/2025 1:30 AM EDT) Narrative Iveth Feng MD - 01/09/2025 1:30 AM EDT Iveth Feng MD 01/09/2025 1:49 AM Arterial line Performed by: Mario Davis DO Authorized by: Adalgisa Alexis MD Consent: Consent obtained: Verbal and written Consent given by: Patient Risks, benefits, and alternatives were discussed: yes Risks discussed: Bleeding, infection, ischemia, repeat procedure and pain [place] protocol: Procedure explained and questions answered to [...] sutured CMS: Normal Procedure completion: Tolerated us Adalgisa Alexis MD IV THERAPY ORDERABLES Final Res ult * (ABNORMAL) Troponin T, High Sensitivity, 0 Hour Plasma, Reflex to 2 Hour (01/09/2025 1:06 AM EDT) Only the most recent of2 resultswithin the time period is included. Troponin T, High Sensitivity, 0 Hour 23(H) <14 ng/L 01/09/2025 1:49 AM EDT [facility] Blood Venous blood specimen / Unknown Venipuncture / Unknown 01/09/2025 1:06 AM EDT 01/09/2025 1:14 AM EDT Adalgisa Alexis MD LAB BLOOD ORDERABLES Final Resu lt Performing Organization Address City/[facility]/ZIP Co de Phone Number [facility] [address] [place] [address] * Ferritin (01/09/2025 1:06 AM EDT) Ferritin, Serum 42 13 - 150 ng/mL 01/09/2025 1:48 AM EDT [facility] Blood Venous blood specimen / Unknown Venipuncture / Unknown 01/09/2025 1:06 AM EDT 01/09/2025 1:13 AM EDT Adalgisa Alexis MD LAB BLOOD ORDERABLES Final Resu lt Performing Organization Address City/[facility]/ZIP Co de Phone Number [facility] [address] [place] [address] * (ABNORMAL) Comprehensive Metabolic Panel, Plasma (01/09/2025 1:06 AM EDT) Only the most recent of3 resultswithin the time period is included. Glucose, Plasma 198(H) 74 - 99 mg/dL 01/09/2025 1:49 AM EDT [facility] BUN, Plasma 31(H) 7 - 21 mg/dL 01/09/2025 1:49 AM EDT [facility] Creatinine, Plasma 0.86 0.60 - 1.10 mg/dL 01/09/2025 1:49 AM EDT [facility] BUN/Creatinine Ratio 36 01/09/2025 1:49 AM EDT [facility] Sodium, Plasma 138 136 - 145 mmol/L 01/09/2025 1:49 AM EDT [facility] Potassium, Plasma 5.3(H) 3.6 - 4.9 mmol/L 01/09/2025 1:49 AM EDT [facility] Chloride, Plasma 104 97 - 107 mmol/L 01/09/2025 1:49 AM EDT [facility] CO2, Plasma 28 22 - 29 mmol/L 01/09/2025 1:49 AM EDT [facility] Anion Gap 6 6 - 16 mmol/L 01/09/2025 1:49 AM EDT [facility] Total Calcium, Plasma 8.3(L) 8.9 - 10.2 mg/dL 01/09/2025 1:49 AM EDT [facility] Total Protein 6.0(L) 6.3 - 7.9 g/dL 01/09/2025 1:49 AM EDT [facility] Albumin, Plasma 3.0(L) 3.5 - 5.2 g/dL 01/09/2025 1:49 AM EDT [facility] AST, Plasma 19 10 - 35 U/L 01/09/2025 1:49 AM EDT [facility] ALT, Plasma 9(L) 10 - 35 U/L 01/09/2025 1:49 AM EDT [facility] Alkaline Phosphatase, Plasma 89 46 - 142 U/L 01/09/2025 1:49 AM EDT [facility] Total Bilirubin, Plasma <0.2(L) 0.2 - 1.1 mg/dL 01/09/2025 1:49 AM EDT [facility] eGFRcr 79.4 mL/min/1.7 3m*2 01/09/2025 1:49 AM EDT [facility] Comment:Reported eGFRcr in m L/min/1.73m2 is based the CKD-EPI 2020 equation that does not use a race coefficient. Blood Venous blood specimen / Unknown Venipuncture / Unknown 01/09/2025 1:06 AM EDT 01/09/2025 1:14 AM EDT us Adalgisa Alexis MD LAB BLOOD ORDERABLES Final Resu lt [facility] [address] [place] [address] * ECG Adult (01/08/2025 2:01 PM EDT) Only the most recent of3 resultswithin the time period is included. EKG DIAGNOSIS CLASS Abnormal MUSE ECG Ventricular Rate 91 BPM MUSE ECG Atrial Rate 91 BPM MUSE ECG DC Interval 186 ms MUSE ECG QRSD Interval 112 ms MUSE ECG QT Interval 366 ms MUSE ECG QTC Interval 450 ms MUSE ECG P [place] 66 degrees MUSE ECG R [place] 72 degrees MUSE ECG T Wave Edwall -77 degrees MUSE ECG Diagnosis Normal sinus rhythm MUSE ECG Diagnosis Low voltage QRS MUSE ECG Diagnosis Cannot rule out Anteroseptal infarct , age undetermined MUSE ECG Diagnosis T wave abnormality, consider inferior ischemia MUSE ECG Diagnosis Abnormal ECG MUSE ECG Diagnosis MUSE ECG Diagnosis Confirmed by Ronal Shaikh ([id number]) on 01/09/2025 12:33:16 PM MUSE ECG 01/08/2025 2:01 PM EDT 01/09/2025 12:33 PM EDT us Adalgisa Alexis MD ECG ORDERABLES Final Result Performing Organization Address City/[facility] Co de Phone Number MUSE ECG * (ABNORMAL) POCT arterial blood gas gem (01/08/2025 12:41 PM EDT) pH, Arterial 7.35 7.35 - 7.45 01/08/2025 12:42 PM [facility]T [facility] pCO2, Arterial 55(H) 35 - 48 mm Hg 01/08/2025 12:42 PM EDT [facility] pO2, Arterial 42(LL) 83 - 108 mm Hg 01/08/2025 12:42 PM [facility]T [facility] SO2, Arterial 71(L) 94 - 98 % 01/08/2025 12:42 PM EDT [facility] FIO2 36.0 % 01/08/2025 12:42 PM EDT [facility] Base Excess, Arterial 4.3(H) -2 - 3 mmol/L 01/08/2025 12:42 PM EDT [facility] HCO3, Arterial 30.4(H) 22 - 26 mmol/L 01/08/2025 12:42 PM EDT [facility] Total Hemoglobin, Arterial, Whole Blood 7.0(L) 11.2 - 15.7 g/dL 01/08/2025 12:42 PM EDT [facility] Hematocrit, Arterial 21.0(L) 34.0 - 45.0 % 01/08/2025 12:42 PM EDT [facility] Sodium, Arterial 139 136 - 145 mmol/L 01/08/2025 12:42 PM EDT [facility] Potassium, Arterial 4.7 3.6 - 4.9 mmol/L 01/08/2025 12:42 PM EDT [facility] Comment:Hemolyzed, result ma y be falsely increased. Chloride, Whole Blood 100 97 - 107 mmol/L 01/08/2025 12:42 PM EDT [facility] Glucose, Arterial 208(H) 74 - 99 mg/dL 01/08/2025 12:42 PM EDT [facility] Ionized Calcium, Arterial 4.4(L) 4.6 - 5.1 mg/dL 01/08/2025 12:42 PM EDT [facility] Lactate, Arterial 1.0 0.5 - 1.6 mmol/L 01/08/2025 12:42 PM EDT [facility] Body Temperature 37.0 Celsius 01/08/2025 12:42 PM EDT [facility] pH, Temp Corrected, Arterial 7.35 7.35 - 7.45 01/08/2025 12:42 PM EDT [facility] pCO2, Temp Corrected, Arterial 55(H) 35 - 48 mm Hg 01/08/2025 12:42 PM EDT [facility] pO2, Temp Corrected, Arterial 42(LL) 83 - 108 mm Hg 01/08/2025 12:42 PM EDT [facility] Inter Com Servicer ID Susan Razo 01/08/2025 12:42 PM EDT [facility] Acknowledged, Notified By JEANETH 01/08/2025 12:42 PM EDT [facility] Critical Notify Time 1241 01/08/2025 12:42 PM EDT [facility] Critical Readback Y 01/08/2025 12:42 PM EDT [facility] Blood, Arterial Whole blood specimen / Unknown 01/08/2025 12:41 PM EDT 01/08/2025 12:42 PM EDT us Adalgisa Alexis MD LAB POINT OF CARE TE ST DOCKED DEVICE UNSOLICITED RESULTS Final Result Performing Organization Address City/State/[facility] Co de Phone Number [facility] [address] [place] [id number] * DC CRITICAL CARE, E/M 30-74 MINUTES (01/08/2025 11:01 AM EDT) Narrative Adalgisa Alexis MD - 01/08/2025 11:01 AM EDT Adalgisa Alexis MD 01/08/2025 4:23 PM Critical Care Performed by: Adalgisa Alexis MD Authorized by: Adalgisa Alexis MD Critical care provider statement: Critical [...] [facility] Follow-up cx's, check cortisol. h/o vaginal bleeding, urogynecology physician consulted. us Adalgisa Alexis MD IN CLINIC/BEDSIDE ORDERABLES Fi nal Result * Methicillin Resistant Staphylococcus aureus (MRSA) by PCR (01/08/2025 9:45 AM EDT) Methicillin Resistant Staphylococcus aureus (MRSA) by PCR Not Detected Not Detected 01/08/2025 11:22 AM EDT [facility] Swab Both anterior nares / Unknown Non-blood Collection / Unknown 01/08/2025 9:45 AM EDT 01/08/2025 10:00 AM EDT Narrative [facility] - 01/08/2025 11:22 AM EDT This test is FDA approved for use with nares swab specimens using the eSwabs. This test is used for clinical purposes. It should not be regarded as investigational or for research. This laboratory is certified under the Clinical Laboratory improvement Amendments of 1988 (CLIA-88 as qualified to perform high complexity clinical laboratory testing. Adalgisa Alexis MD LAB MICROBIOLOGY - GENERAL ORDE [facility] Final Result Performing Organization Address City/[facility]/ZIP Co [place] [address] * Lactate, venous (01/08/2025 8:35 AM EDT) Only the most recent of6 resultswithin the time period is included. Lactate, Venous, Whole Blood 1.9 0.5 - 2.2 mmol/L LAB HEMATOLOGY METHOD 01/08/2025 8:42 AM EDT [facility] Blood Venous blood specimen / Unknown Venipuncture / Unknown 01/08/2025 8:35 AM EDT 01/08/2025 8:41 AM EDT Adalgisa Alexis MD LAB BLOOD ORDERABLES Final Resu lt Performing Organization Address City/[facility]/ZIP [place] [address] * (ABNORMAL) Ionized calcium, serum (01/08/2025 12:01 AM EDT) Ionized Calcium, Serum 4.3(L) 4.6 - 5.3 mg/dL LAB HEMATOLOGY METHOD 01/08/2025 1:07 AM EDT [facility] Blood Venous blood specimen / Unknown Venipuncture / Unknown 01/08/2025 12:01 AM EDT 01/08/2025 12:28 AM EDT us Elvia Lopez AMUSEMENT EQUIPMENT OPERATOR, DNP LAB BLOOD ORDERABLES Final Result [facility] [address] [place] [address] * (ABNORMAL) Iron & Total Iron Binding Capacity, Plasma (Includes Transferrin) (01/08/2025 12:01 AM EDT) Iron, Plasma 21(L) 30 - 160 ug/dL 01/08/2025 2:33 PM EDT [facility] Transferrin, Plasma 284 200 - 360 mg/dL 01/08/2025 2:33 PM EDT [facility] Total Iron Binding Capacity, Plasma 355 240 - 450 ug/mL 01/08/2025 2:33 PM EDT [facility] Transferrin Saturation 6(L) 14 - 50 % 01/08/2025 2:33 PM EDT [facility] Blood Venous blood specimen / Unknown Venipuncture / Unknown 01/08/2025 12:01 AM EDT 01/08/2025 12:28 AM EDT Adalgisa Alexis MD LAB BLOOD ORDERABLES Final Resu lt Performing Organization Address City/[facility]/ZIP [place] [address] * Phosphorus, Plasma (01/08/2025 12:01 AM EDT) Only the most recent of2 resultswithin the time period is included. Phosphorus, Plasma 3.0 2.5 - 4.5 mg/dL 01/08/2025 1:00 AM EDT [facility] Blood Venous blood specimen / Unknown Venipuncture / Unknown 01/08/2025 12:01 AM EDT 01/08/2025 12:28 AM EDT Elvia Lopez APRN, DNP LAB BLOOD ORDERABLES Final Result Performing Organization Address City/[facility]/ZIP Co de Phone Number [facility] [address] [place] [address] * (ABNORMAL) Magnesium, Plasma (01/08/2025 12:01 AM EDT) Only the most recent of2 resultswithin the time period is included. Magnesium, Plasma 1.7(L) 1.9 - 2.4 mg/dL 01/08/2025 1:00 AM EDT [facility] Blood Venous blood specimen / Unknown Venipuncture / Unknown 01/08/2025 12:01 AM EDT 01/08/2025 12:28 AM EDT Elvia Lopez AMUSEMENT EQUIPMENT OPERATOR, DNP LAB BLOOD ORDERABLES Final Result [facility] [address] [place] [address] * (ABNORMAL) Blood gas panel, venous (01/07/2025 6:42 PM EDT) Only the most recent of2 resultswithin the time period is included. pH, Venous 7.29(L) 7.32 - 7.43 LAB HEMATOLOGY METHOD 01/07/2025 6:55 PM EDT [facility] pCO2, Venous 53(H) 37 - 52 mmHg LAB HEMATOLOGY METHOD 01/07/2025 6:55 PM EDT [facility] pO2, Venous 66(H) 25 - 40 mmHg LAB HEMATOLOGY METHOD 01/07/2025 6:55 PM EDT [facility] SO2, Measured, Venous 91(H) 65 - 80 % LAB HEMATOLOGY METHOD 01/07/2025 6:55 PM EDT [facility] Base Excess, Venous -1.7 -2.0 - 3.0 mmol/L LAB HEMATOLOGY METHOD 01/07/2025 6:55 PM EDT [facility] Bicarbonate, Calculated, Venous 25 22 - 26 mmol/L LAB HEMATOLOGY METHOD 01/07/2025 6:55 PM EDT [facility] Hematocrit, Whole Blood 32.1(L) 34.0 - 45.0 % LAB HEMATOLOGY METHOD 01/07/2025 6:55 PM EDT [facility] Sodium, Whole Blood 137 136 - 145 mmol/L LAB HEMATOLOGY METHOD 01/07/2025 6:55 PM EDT [facility] Potassium, Whole Blood 3.9 3.6 - 4.9 mmol/L LAB HEMATOLOGY METHOD 01/07/2025 6:55 PM EDT [facility] Chloride, Whole Blood 100 97 - 107 mmol/L LAB HEMATOLOGY METHOD 01/07/2025 6:55 PM EDT [facility] Glucose, Whole Blood 138(H) 74 - 99 mg/dL LAB HEMATOLOGY METHOD 01/07/2025 6:55 PM EDT [facility] Lactate, Venous, Whole Blood 1.4 0.5 - 2.2 mmol/L LAB HEMATOLOGY METHOD 01/07/2025 6:55 PM EDT [facility] Ionized Calcium, Whole Blood 4.1(L) 4.6 - 5.1 mg/dL LAB HEMATOLOGY METHOD 01/07/2025 6:55 PM EDT [facility] Blood Venous blood specimen / Unknown Venipuncture / Unknown 01/07/2025 6:42 PM EDT 01/07/2025 6:53 PM EDT us Adalgisa Alexis MD LAB BLOOD ORDERABLES Final Resu lt [facility] [address] [place] [address] * Gold Top (01/07/2025 6:29 PM EDT) Extra Hold for add-ons 01/07/2025 10:02 PM EDT [facility] Comment:Auto resulted. Blood Venous blood specimen / Unknown 01/07/2025 6:29 PM EDT 01/07/2025 7:05 PM EDT us Adalgisa Alexis MD LAB BLOOD ORDERABLES Final Resu lt [facility] [address] [place] [address] * Light Blue Top (01/07/2025 6:29 PM EDT) Extra Hold for add-ons 01/07/2025 9:02 PM EDT [facility] Comment:Auto resulted. Blood Venous blood specimen / Unknown 01/07/2025 6:29 PM EDT 01/07/2025 6:48 PM EDT Adalgisa Alexis MD LAB BLOOD ORDERABLES Final Resu lt Performing Organization Address [facility] Co de Phone Number [facility] [address] [place] [address] * (ABNORMAL) BETA HYDROXYBUTYRIC ACID (01/07/2025 6:29 PM EDT) Beta-Hydroxybu tyric Acid, Plasma 0.61(H) <=0.27 mmol/L 01/07/2025 7:59 PM EDT [facility] Blood Venous blood specimen / Unknown Venipuncture / Unknown 01/07/2025 6:29 PM EDT 01/07/2025 6:34 PM EDT Adalgisa Alexis MD LAB BLOOD ORDERABLES Final Resu Performing Organization Address [facility] [place] [address] * (ABNORMAL) Procalcitonin (01/07/2025 6:29 PM EDT) Procalcitonin, Plasma 0.11(H) <0.09 ng/mL 01/07/2025 7:43 PM EDT [facility] Blood Venous blood specimen / Unknown Venipuncture / Unknown 01/07/2025 6:29 PM EDT 01/07/2025 6:34 PM EDT Narrative [facility] - 01/07/2025 7:43 PM EDT Procalcitonin [...] predict 28 day mortality risk. Please consult [email or web address].CircuLite for more information. Test performed at [facility]. us Elvia Nigel Lopez AMUSEMENT EQUIPMENT OPERATOR, DNP LAB BLOOD ORDERABLES Final Result [facility] [address] [place] [address] * (ABNORMAL) CBC and Differential (01/07/2025 6:29 PM EDT) Only the most recent of2 resultswithin the time period is included. WBC Count 21.30(H) 3.70 - 10.30 10*3/uL LAB HEMATOLOGY METHOD 01/07/2025 6:42 PM EDT [facility] RBC Count 3.31(L) 3.90 - 5.20 10*6/uL LAB HEMATOLOGY METHOD 01/07/2025 6:42 PM EDT [facility] HGB 8.5(L) 11.2 - 15.7 g/dL LAB HEMATOLOGY METHOD 01/07/2025 6:42 PM EDT [facility] HCT 29.1(L) 34.0 - 45.0 % LAB HEMATOLOGY METHOD 01/07/2025 6:42 PM EDT [facility] Platelet Count 475(H) 155 - 369 10*3/uL LAB HEMATOLOGY METHOD 01/07/2025 6:42 PM EDT [facility] MCV 88 79 - 98 fL LAB HEMATOLOGY METHOD 01/07/2025 6:42 PM EDT [facility] MCH 25.7(L) 26.0 - 32.0 pg LAB HEMATOLOGY METHOD 01/07/2025 6:42 PM EDT [facility] MCHC 29.2(L) 30.7 - 35.5 g/dL LAB HEMATOLOGY METHOD 01/07/2025 6:42 PM EDT [facility] RDW 16.9(H) 11.5 - 14.5 % LAB HEMATOLOGY METHOD 01/07/2025 6:42 PM EDT [facility] MPV 10.0 8.8 - 12.5 fL LAB HEMATOLOGY METHOD 01/07/2025 6:42 PM EDT [facility] nRBC 0.0 <=0.0 per 100 WBCs LAB HEMATOLOGY METHOD 01/07/2025 6:42 PM EDT [facility] Differential Type Automated LAB HEMATOLOGY METHOD 01/07/2025 6:42 PM EDT [facility] Neutrophils % 74 % LAB HEMATOLOGY METHOD 01/07/2025 6:42 PM EDT [facility] Lymphocytes % 17 % LAB HEMATOLOGY METHOD 01/07/2025 6:42 PM EDT [facility] Monocytes % 6 % LAB HEMATOLOGY METHOD 01/07/2025 6:42 PM EDT [facility] Eosinophils % 2 % LAB HEMATOLOGY METHOD 01/07/2025 6:42 PM EDT [facility] Basophils % 0 % LAB HEMATOLOGY METHOD 01/07/2025 6:42 PM EDT [facility] Immature Granulocytes % 1 % LAB HEMATOLOGY METHOD 01/07/2025 6:42 PM EDT [facility] Neutrophils Absolute 15.87(H) 1.60 - 6.10 10*3/uL LAB HEMATOLOGY METHOD 01/07/2025 6:42 PM EDT [facility] Lymphocytes Absolute 3.57 1.20 - 3.90 10*3/uL LAB HEMATOLOGY METHOD 01/07/2025 6:42 PM EDT [facility] Monocytes Absolute 1.25(H) 0.30 - 0.90 10*3/uL LAB HEMATOLOGY METHOD 01/07/2025 6:42 PM EDT [facility] Eosinophils Absolute 0.32 0.00 - 0.50 10*3/uL LAB HEMATOLOGY METHOD 01/07/2025 6:42 PM EDT [facility] Basophils Absolute 0.08 0.00 - 0.10 10*3/uL LAB HEMATOLOGY METHOD 01/07/2025 6:42 PM EDT [facility] Immature Granulocytes Absolute 0.21(H) 0.00 - 0.06 10*3/uL LAB HEMATOLOGY METHOD 01/07/2025 6:42 PM EDT [facility] Blood Venous blood specimen / Unknown Venipuncture / Unknown 01/07/2025 6:29 PM EDT 01/07/2025 6:34 PM EDT [facility] - 01/07/2025 6:42 PM EDT Therapeutic decision making should be based on absolute values, rather than percentages. Elvia Lopez APRN, DNP LAB BLOOD ORDERABLES Final Result [facility] [address] [place] [address] * (ABNORMAL) Hemoglobin A1c (01/07/2025 6:29 PM EDT) Hemoglobin A1c 6.6(H) <5.7 % 01/08/2025 12:52 PM EDT [facility] Blood Venous blood specimen / Unknown Venipuncture / Unknown 01/07/2025 6:29 PM EDT 01/07/2025 6:34 PM EDT Narrative [facility] - 01/08/2025 12:52 PM EDT HA1C Interpretive Data: Diagnosis of Diabetes: Diabetic > or = 6.5% Pre-diabetic 5.7 to 6.4% Non-diabetic < or = 5.6% Glycemic Targets for Type I and Type II Diabetics: Non- Adults <7.0% Adults <6.0% Children and Adolescents <7.5% Source: [place] [employer]. Standards of medical care in diabetes,2017. Diabetes Care.2017:40 (suppl 1):S1-S135. Elvia Lopez APRN, DNP LAB BLOOD ORDERABLES Final Result Performing Organization Address [facility] Co [place] [address] * Nasopharyngeal Respiratory Panel (01/07/2025 6:22 PM EDT) Nasopharyngeal Respiratory PCR Interpretation Not Detected for all analytes Not Detected for all analytes 01/07/2025 8:53 PM EDT [facility] Swab Nasopharyngeal structure / Unknown Non-blood Collection / Unknown 01/07/2025 6:22 PM EDT 01/07/2025 6:58 PM EDT Narrative [facility] - 01/07/2025 8:53 PM EDT This [...] Respiratory PCR Panel is performed using the BuzzStreamlex instrument. This test is FDA approved for use with Nasopharyngeal swabs only. This test is used for clinical purposes. It should not be regarded as investigational or for research. The [facility] Clinical Microbiology Laboratory is certified under the Clinical Laboratory Improvement Amendments of 1988 (CLIA-88) as qualified to perform high complexity clinical laboratory testing. Elvia Lopez APRN, DNP LAB MICROBIOLOGY - [facility] NERAL ORDERABLES Final Result Performing Organization Address [facility] [place] [address] * Influenza A,B & Respiratory Syncytial Virus by PCR (01/07/2025 6:22 PM EDT) [facility] Influenza A Virus PCR Result Not Detected Not Detected 01/10/2025 7:15 AM EDT [facility] Influenza B Virus PCR Result Not Detected Not Detected 01/10/2025 7:15 AM EDT [facility] Respiratory Syncytial Virus (RSV) PCR Result Not Detected Not Detected 01/10/2025 7:15 AM EDT [facility] Swab Nasopharyngeal structure / Unknown Non-blood Collection / Unknown 01/07/2025 6:22 PM EDT 01/07/2025 6:58 PM EDT Elvia Lopez APRN, CHASITY LAB MICROBIOLOGY - NERAL ORDERABLES Final Result Performing Organization Address [facility] Co de Phone Number [facility] [address] [place] [address] * Belgica auris Surveillance by PCR (01/07/2025 6:20 PM EDT) Belgica auris PCR Result Not Detected Not Detected 01/10/2025 6:32 AM EDT [facility] Swab (Axilla and Groin) Non-blood Collection / Unknown 01/07/2025 6:20 PM EDT 01/07/2025 6:58 PM EDT Narrative [facility] - 01/10/2025 6:32 AM EDT This PCR assay was developed and its performance characteristics determined by [facility] as appropriate for clinical purposes. This assay has not been cleared or approved by the FDA, but is performed in a CLIA regulated laboratory that is qualified to perform high-complexity testing. Elvia Lopez APRN, DNP LAB MICROBIOLOGY - GE NERAL ORDERABLES Final Result Performing Organization Address [facility] Co [place] [address] * Multi Drug Resistance Test (01/07/2025 6:20 PM EDT) Pathologist [facility] Culture No growth at day 1 01/08/2025 9:02 PM EDT [facility] Swab (Nares and Sharla Rectal) Non-blood Collection / Unknown 01/07/2025 6:20 PM EDT 01/07/2025 6:58 PM EDT Narrative [facility] - 01/08/2025 9:02 PM EDT This test was developed and its performance characteristics determined by the [facility] Clinical Microbiology Laboratory. Although the media is FDA-approved, it is not FDA-approved for all specimen types submitted. The FDA has determined that such clearance or approval is not necessary. This test is used for surveillance purposes. It should not be regarded as investigational or for research. The [facility] Clinical Microbiology Laboratory is certified under the Clinical Laboratory Improvement Amendments of 1988 (CLIA-88) as qualified to perform high complexity clinical laboratory testing. Elvia Lopez APRN, CHASITY LAB MICROBIOLOGY - GE NERAL ORDERABLES Final Result Performing Organization Address City/[facility]/ZIP [place] [address] * DC CRITICAL CARE, E/M 30-74 MINUTES (01/07/2025 5:04 [...] culture not indicated 01/08/2025 12:02 AM EDT [facility] Comment: Previously prelim verified as Specimen [...] PM EDT 01/07/2025 3:30 PM EDT us Brenton Patton MD LAB URINE ORDERABLES Final Result [facility] [address] [place] [address] * (ABNORMAL) Urinalysis with reflex microscopic (Culture NOT Included) (01/07/2025 3:18 PM EDT) Color, Urine Yellow LAB URINALYSIS - AUTOMATED METHOD 01/07/2025 3:49 PM EDT [facility] Clarity, Urine Clear LAB URINALYSIS - AUTOMATED METHOD 01/07/2025 3:49 PM EDT [facility] Spec [place], Urine 1.017 1.005 - 1.030 LAB URINALYSIS - AUTOMATED METHOD 01/07/2025 3:49 PM EDT [facility] pH, Urine <=5.0(L) 5.0 - 8.0 LAB URINALYSIS - AUTOMATED METHOD 01/07/2025 3:49 PM EDT [facility] Protein, Urine Trace(A) Negative mg/dL LAB URINALYSIS - AUTOMATED METHOD 01/07/2025 3:49 PM EDT [facility] Glucose, Urine Negative Negative mg/dL LAB URINALYSIS - AUTOMATED METHOD 01/07/2025 3:49 PM EDT [facility] Ketones, Urine Negative Negative mg/dL LAB URINALYSIS - AUTOMATED METHOD 01/07/2025 3:49 PM EDT [facility] Blood, Urine Negative Negative LAB URINALYSIS - AUTOMATED METHOD 01/07/2025 3:49 PM EDT [facility] Bilirubin, Urine Negative Negative LAB URINALYSIS - AUTOMATED METHOD 01/07/2025 3:49 PM EDT [facility] Urobilinogen, Urine 0.2 0.2 to 1.0 mg/dL LAB URINALYSIS - AUTOMATED METHOD 01/07/2025 3:49 PM EDT [facility] Leukocytes, Urine Negative Negative LAB URINALYSIS - AUTOMATED METHOD 01/07/2025 3:49 PM EDT [facility] Nitrite, Urine Negative Negative LAB URINALYSIS - AUTOMATED METHOD 01/07/2025 3:49 PM EDT [facility] Urine Urine specimen obtained by clean catch procedure / Unknown Non-blood Collection / Unknown 01/07/2025 3:18 PM EDT 01/07/2025 3:29 PM EDT Brenton Patton MD LAB URINE ORDERABLES Final Result [facility] [address] [place] [address] * XR Chest 1 View (01/07/2025 1:59 [...] D Doyle MD on 01/07/2025 3:11 PM us Brenton Patton MD IMG XR PROCEDURES Final Re sult * Blood Culture (Aerobic/Anaerobet Set) (01/07/2025 11:43 AM EDT) Only the most recent of2 resultswithin the time period is included. Culture No growth at day 5 01/12/2025 1:01 PM EDT [facility] Blood Structure of left hand / Unknown Venipuncture / Unknown 01/07/2025 11:43 AM EDT 01/07/2025 12:10 PM EDT Narrative [facility] - 01/12/2025 1:01 PM EDT Low blood volume submitted, results may be compromised us Brenton Patton MD LAB MICROBIOLOGY - GENERAL ORDERABLES Final Result [facility] [address] [place] [address] * ED HIV 1/2 Antibody/Antigen Screen w/Reflex to HIV 1/2 Differentiation (01/07/2025 11:31 AM EDT) HIV 1 & 2 Antibody/Antigen Screen Non Reactive Non Reactive 01/07/2025 12:34 PM EDT [facility] Comment:Screening for HIV 1 & 2 antibodies, and P24 antigen is NONREACTIVE. No confirmatory testing is required. Blood Venous blood specimen / Unknown Venipuncture / Unknown 01/07/2025 11:31 AM EDT 01/07/2025 11:53 AM EDT Brenton Patton MD LAB BLOOD ORDERABLES Final Result [facility] [address] [place] [address] * Hepatitis C Antibody - ED (01/07/2025 11:31 AM EDT) Hepatitis C Antibody Negative Negative 01/07/2025 12:34 PM EDT [facility] Blood Venous blood specimen / Unknown Venipuncture / Unknown 01/07/2025 11:31 AM EDT 01/07/2025 11:53 AM EDT Brenton Patton MD LAB BLOOD ORDERABLES Final Result Performing Organization Address City/[facility] Co [place] [address] * BNP (01/07/2025 11:31 AM EDT) N-Terminal, PROBNP, Plasma 710 0 - 899 pg/mL 01/07/2025 12:12 PM EDT [facility] Blood Venous blood specimen / Unknown Venipuncture / Unknown 01/07/2025 11:31 AM EDT 01/07/2025 11:37 AM EDT Brenton Patton MD LAB BLOOD ORDERABLES Final Result Performing Organization Address City/[facility]/ZIP Co de Phone Number [facility] [address] [place] [address] * PT-INR (01/07/2025 11:31 AM EDT) Prothrombin Time 14.0 12.0 - 14.3 sec 01/07/2025 11:55 AM EDT [facility] INR 1.1 0.9 - 1.1 01/07/2025 11:55 AM EDT [facility] Blood Venous blood specimen / Unknown Venipuncture / Unknown 01/07/2025 11:31 AM EDT 01/07/2025 11:37 AM EDT Narrative [facility] - 01/07/2025 11:55 AM EDT OPTIMAL INR RANGES FOR PATIENT ON ORAL ANTICOAGULANT THERAPY Prevention of venous thromboembolism INR 2.0 to 3.0 In patients with heart disease: Atrial fibrillation INR 2.0 to 3.0 Valvular heart disease INR 2.0 to 3.0 Tissue heart valves INR 2.0 to 3.0 Mechanical prosthetic valves INR 2.5 to 3.5 Prevention of recurrent VA INR 2.5 to 3.5 Brenton Patton MD LAB BLOOD ORDERABLES Final Result [facility] [address] [place] [address] * Thyroid Stimulating Hormone, Plasma (01/07/2025 11:31 AM EDT) Thyroid Stimulating Hormone, Plasma 2.22 0.40 - 4.20 uIU/mL 01/07/2025 12:12 PM EDT [facility] Blood Venous blood specimen / Unknown Venipuncture / Unknown 01/07/2025 11:31 AM EDT 01/07/2025 11:37 AM EDT Brenton Patton MD LAB BLOOD ORDERABLES Final Result Performing Organization Address City/[facility]/ZIP [place] [address] * Free T4, Plasma (01/07/2025 11:31 AM EDT) Free T4, Plasma 1.6 0.8 - 1.7 ng/dL 01/07/2025 12:12 PM EDT [facility] Blood Venous blood specimen / Unknown Venipuncture / Unknown 01/07/2025 11:31 AM EDT 01/07/2025 11:37 AM EDT Brenton Patton MD LAB BLOOD ORDERABLES Final Result Performing Organization Address City/[facility]/ZIP Co de Phone Number [facility] [address] [place] [address] * (ABNORMAL) POCT venous blood gas gem (01/07/2025 11:18 AM EDT) pH, Venous 7.31(L) 7.32 - 7.43 [facility]/07[facility]2025 [facility] pCO2, Venous 54(H) 37 - 52 mm Hg 01/07/2025 11:19 AM EDT [facility] pO2, Venous 32 25 - 40 mm Hg 01/07/2025 11:19 AM EDT [facility] SO2, Venous 43(L) 65 - 80 % 01/07/2025 11:[facility] Base Excess/Deficit, Venous 0.6 -2 - 3 mmol/L 01/07/2025 11:19 [facility] HCO3, Venous 27.2(H) 22 - 26 mmol/L 01/07/2025 11:19 AM [facility] Hemoglobin, Venous 8.2(L) 11.2 - 15.7 g/dL 01/07/2025 11:[facility] Hematocrit, Venous 25.0(L) 34.0 - 45.0 % 01/07/2025 11:19 AM [facility] Sodium, Venous 134(L) 136 - 145 mmol/L 01/07/2025 11:[facility] Potassium, Venous 4.5 3.6 - 4.9 mmol/L 01/07/2025 11:19 AM [facility] Comment:Hemolyzed, result ma y be falsely increased. POCT Chloride, Venous 98 97 - 107 mmol/L 01/07/2025 11:19 AM [facility] Glucose, Venous 190(H) 74 - 99 mg/dL 01/07/2025 11:19 [facility] Ionized Calcium, Venous 4.3(L) 4.6 - 5.1 mg/dL 01/07/2025 11:19 [facility] Lactate, Venous 2.4(H) 0.5 - 2.2 mmol/L 01/07/2025 11:19 [facility] Body Temperature 37.0 Celsius 01/07/2025 11:19 [facility] pH, Temp Corrected, Venous 7.31(L) 7.32 - 7.43 01/07/2025 11:19 AM EDT [facility] pCO2, Temp Corrected, Venous 54(H) 37 - 52 mm Hg 01/07/2025 11:19 AM EDT [facility] pO2, Temp Corrected, Venous 32 25 - 40 mm Hg 01/07/2025 11:19 AM EDT [facility] Inter Com Servicer ID Paul Jansen 01/07/2025 11:19 AM EDT [facility] Blood, Venous Whole blood specimen / Unknown 01/07/2025 11:18 AM EDT 01/07/2025 11:19 AM EDT us Generic Provider Poct LAB POINT OF CARE TEST DOCKED DEVICE UNSOLICITED RESULTS Final Result Performing Organization Address City/State/[facility] Co de Phone Number [facility] [address] [place] [id number] * Critical Care (01/07/2025 11:00 AM EDT) Narrative Brenton Patton MD - 01/07/2025 11:00 AM EDT Brenton Patton MD 01/09/2025 2:38 PM Critical Care Performed by: Brenton Patton MD Authorized by: Ivis Juárez MD us Ivis Juárez MD IN CLINIC/BEDSIDE ORDERABLES F inal Result * DC CRITICAL CARE, E/M 30-74 MINUTES (01/07/2025 11:00 AM EDT) Narrative Brenton Patton MD - 01/07/2025 11:00 AM EDT Brneton Patton MD 01/09/2025 2:38 PM Critical Care Performed by: Brenton Patton MD Authorized by: Brenton Patton MD Critical care provider statement: Critical care [...] the findings and plan as documented. us Brenton Patton MD IN CLINIC/BEDSIDE ORDERABL ES Edited Result - Final from Last 3 Months Insurance [employer]ICA[employer] MEDICARE Advance Directives * Full Code (Latest Code Status on File) Date Activated Date Inactivated Comments 01/07/2025 5:01 PM 01/14/2025 6:55 PM Question Answer Comments I have reviewed the capacity from the link above and, if needed, have updated to appropriate status: Yes Care Teams Caster Operator Relationship Specialty Start Date End Date Vahid Garcia DO [address] [place] [address] PCP - General 01/10/25
--- OUTSIDE RECORDS SUMMARY | 2025-03-10 08:28 | XMS_ITS | Encounter Summary ---
Author Organization [facility] Address [address] [place] [address] Care Team Providers Care Legal Department Manager Name Role Phone Vahid Garcia Primary Care Provider [phone] Encounter Details Date Type Department Care Team (Latest Contact Info) Description 01/13/2025 Travel Social History Tobacco Use Types Packs/Day [...] any time in the past 12 m [facility], were you homeless or living in a care home (including now)? No 01/10/2025 Utilities Answer Date [...] Author No Risk Indicated 01/13/2025 11:00 AM Aleida Stone RN * Question Answer Date of Assessment Author 1. Wish to be (Past 1 Month) No 01/13/2025 11:00 AM Aleida Giordano RN 2. Non-Specific Active Suici wan Thoughts (Past 1 Month) No 01/13/2025 11:00 AM Alphonso Giordano RN 6. Suicidal Behavior (Lifetime) No 11:00 AM Aleida Giordano RN documented as of this encounter Plan of Treatment Not on file documented as of this encounter Visit Diagnoses Not on filedocumented in this encounter Additional Health Concerns Assessment Noted Time A Body Mass Index follow-up plan has been documented for the patient 01/14/2025 1:28 PM EDT documented as of this encounter Care Teams Legal Department Manager Relationship Specialty Start Date End Date Vahid Garcia DO [address] [place] [address] [place] [address] PCP - General 01/10/25 documented as of this encounter
--- OUTSIDE RECORDS SUMMARY | 2025-03-10 08:28 | XMS_ITS | Encounter Summary ---
Author Organization [facility] Address [address] [place] [address] Care Team Providers Care Senior Business Intelligence Analyst Name Role Phone Catherine Alcaraz Dr Primary Care Provider Unavailabl e Encounter Details Date Type Department Care Team (Late st Contact Info) Description 02/01/2025 Telephone [facility] - Cardiovascular Medicine [address] [place] [address] Roger Aranda MD [address] [facility] [place] [id number] Social History Tobacco Use Types Packs/Day Years Used Date Smoking Tobacco: Never Assessed Comments Unknown Sex and Gender Information Value Date Recorded Sex Assigned at Not on file Legal Sex Female 7:12 PM EDT Gender Identity Not on file Sexual Orientation Not on file documented as of this encounter Miscellaneous Notes * Telephone Encounter - Zara Calderon - 02/01/2025 12:07 PM EDT I talked to pt and let her know she needs to follow up with an EP Appian Developer close to home. I explained we would still receive her remotes until she is seen in their office. I advised that she could hear from me again if an episode is seen from her pacemaker. She voiced her understanding. documented in this encounter Plan of Treatment Not on file documented as of this encounter Visit Diagnoses Not on filedocumented in this encounter Care Teams Senior Business Intelligence Analyst Relationship Specialty Start Date End Date Catherine Alcaraz Dr. PCP - General 11/17/24 documented as of this encounter
--- OUTSIDE RECORDS SUMMARY | 2025-03-10 08:28 | XMS_ITS | Encounter Summary ---
Author Organization [facility] Address [address] [place] [address] Care Team Providers Care A P Supervisor Name Role Phone Catherine Alcaraz Dr Primary Care Provider Unavailabl e Reason for Referral * Imaging (Routine) - Pending Review Specialty Diagnoses / Procedures Referred By Contac t Referred To Contact Cardiology Diagnoses Cardiac pacemaker in situ Procedures PM Remote - PaceArt Roger Aranda MD [address] [address] Phone: tel: fax: [facility] [address] [facility] [address] [place] [address] Phone: tel: fax: Referral ID Status Reason Start Date Expiration Date V isits Requested Visits Authorized [id number] Pending Review 03/08/2025 04/07/2026 1 1 Encounter Details Date Type Department Care Team (Late st Contact Info) Description 03/08/2025 Orders Only [facility] - Cardiovascular Medicine [address] [id number] Roger Aranda MD [address] [phone] Cardiac pacemaker in situ (Primary Dx) Social History Tobacco Use Types Packs/Day Years Used Date Smoking Tobacco: Never Assessed Comments Unknown Sex and Gender Information Value Date Recorded Sex Assigned at Not on file Legal Sex Female 7:12 PM EDT Gender Identity Not on file Sexual Orientation Not on file documented as of this encounter Plan of Treatment Scheduled Orders Name Type Priority Associated Diagnoses Orde r Schedule PM Remote - PaceArt Implantable Cardiac Device Routine Cardiac pacemaker in situ Ordered: 03/08/2025 documented as of this encounter Visit Diagnoses Diagnosis Cardiac pacemaker in situ- Primary documented in this encounter Care Teams A P Supervisor Relationship Specialty Start Date End Date Catherine Alcaraz Dr. PCP - General 11/17/24 documented as of this encounter
--- OUTSIDE RECORDS SUMMARY | 2025-03-10 08:29 | XMS_ITS | Encounter Summary ---
Author Organization [facility] Address [address] [id number] Care Team Providers Care Property Assessment Monitor Name Role Phone JoseVahid Nazia PAYNE Primary Care Provider [phone] Encounter Details Date Type Department Care Team (Late st Contact Info) Description 01/25/2025 Telephone [facility] Obstetrics & Gynecology [address] [place] [phone] Sangeeta Braswell MD [address] [place], [place] [id number] Social History Tobacco Use Types Packs/Day Years [...] any time in the past 12 m [facility], were you homeless or living in a [facility] (including now)? No 01/10/2025 Utilities Answer Date [...] encounter Miscellaneous Notes * Telephone Encounter - Delaney Anglin MD - 01/30/2025 3:07 PM EDT Called patient to relay benign Pathology. Mirena IUD in place. All questions answered. Will follow up with primary OBGYN. * Telephone Encounter - Ines Miller - 01/30/2025 10:57 AM EDT Status Update Call #1 1st call regarding the status of the initial request. Best contact number: [phone] (mobile) Optimal time of day to reach caller: ANYTIME Additional comments/information from caller: Pt is calling to follow up on this. Please call. Note: Please do not reply to this message. Follow-up communication and further actions as a result of this message need to be communicated with the patient directly, if the patient is not active onMyChart. If the patient is active on MyChart, they will receive notification of the communication/outcome via MyChart. * Telephone Encounter - Nusrat Cisneros - 01/25/2025 10:03 AM EDT Clinical Concern/Question Reason for Call: Patient is calling to go over results Best contact number: [phone] (mobile) Optimal time of day to reach caller: ANYTIME Additional comments/information from caller: Not Applicable Note: Please do not reply to this message. Follow-up communication and further actions as a result of this message need to be communicated with the patient directly, if the patient is not active onMyChart. If the patient is active on MyChart, they will receive notification of the communication/outcome via MyChart. documented in this encounter Plan of Treatment Not on file documented as of this encounter Visit Diagnoses Not on filedocumented in this encounter Additional Health Concerns Assessment Noted Time A Body Mass Index follow-up plan has been documented for the patient 01/14/2025 1:28 PM EDT documented as of this encounter Care Teams Property Assessment Monitor Relationship Specialty Start Date End Date Vahid Garcia DO [address] [place] [address] [place] [address] PCP - General 01/10/25 documented as of this encounter
[2025-03-10 08:40] LABS: Coronavirus 19, PCR Not Detected (NotDetected); Influenza A, PCR Not Detected (NotDetected); Influenza B, PCR Not Detected (NotDetected)
[2025-03-10 08:41] LABS: Hematocrit 27.2 % (37.0-47.0); Hemoglobin 7.4 g/dL (12.2-16.2); Mean Corpuscular HGB Conc 27.2 g/dL (31.8-35.4); Mean Corpuscular Hemoglobin 21.4 pg (27.0-31.2); Mean Corpuscular Volume 78.8 fl (81-99); Platelet Count 368 K/mm3 (142-424); Red Blood Count 3.45 M/mm3 (4.20-5.40); White Blood Count 11.5 K/mm3 (4.8-10.8)
[2025-03-10 08:45] LABS: Albumin Level 3.4 g/dl (3.5-5.0); Chloride 96 mmol/L (98-107); Sodium 135 mmol/L (136-145)
[2025-03-10 08:46] LABS: Potassium 4.3 mmoL/L (3.5-5.1)
[2025-03-10 08:47] LABS: Lactate Venous 1.9 mmol/L (0.4-2.0); VBG HCO3 32.8 mmol/L (23-30); VBG PH 7.41 mmol/L (7.31-7.41); VBG PO2 98.6 mmol/L (28-40)
[2025-03-10 08:48] LABS: Anion Gap 9.3 mEq/L (5-15); Blood Urea Nitrogen 17 mg/dl (7-17); Carbon Dioxide 34 mmol/L (22.0-30.0); Creatinine,Serum 0.80 mg/dl (0.52-1.04); Estimated Glomerular Filt Rate 74 ml/min (>60); GFR (African American) 90 ML/MIN (>60)
[2025-03-10 08:49] LABS: Alanine Aminotransferase 11 U/L (12-78); Albumin/Globulin Ratio 1.1 (1.1-1.8); Alkaline Phosphatase 89 U/L (38-126); Aspartate Amino Transferase 23 U/L (14-36); Bilirubin,Total 0.3 mg/dl (0.2-1.3); Calcium 8.8 mg/dl (8.4-10.2); Globulin 3.2 g/dL (1.3-3.2); Glucose 138 mg/dl (74-100); Total Protein,Serum 6.6 g/dl (6.3-8.2)
[2025-03-10 08:49] LABS: VBG PCO2 52.5 mmol/L (35-51)
[2025-03-10 08:54] LABS: C-Reactive Protein 54.9 mg/L (0-4)
[2025-03-10 08:58] LABS: NT Pro Brain Natriuretic Pep. 427 pg/mL (0-125)
[2025-03-10 09:03] LABS: Troponin I < 0.01 ng/ml (0.00-0.034)
[2025-03-10] MEDS: FUROSEMIDE 40MG/4ML VIAL 40 MG IV (09:06)
[2025-03-10] MEDS: IPRATROPIUM/ALBUTEROL 3 ML NEB 9 ML IH (09:06)
--- NOTE | 2025-03-10 09:44 | CT_ITS ---
PROCEDURE INFORMATION: Exam: CTA Chest With Contrast Exam date and time: 03/10/2025 10:25 AM Age: 54 years old Clinical indication: Shortness of breath; Additional info: SOB TECHNIQUE: Imaging protocol: Computed tomographic angiography of the chest with contrast. Exam focused on the arteries. 3D rendering (Not supervised by radiologist): MIP and/or 3D reconstructed images were created by the technologist. Radiation optimization: All CT scans at this facility use at least one of these dose optimization techniques: automated exposure control; mA and/or kV adjustment per patient size (includes targeted exams where dose is matched to clinical indication); or iterative reconstruction. Contrast material: ISOVUE 370; Contrast volume: 100 ml; Contrast route: INTRAVENOUS (IV); COMPARISON: CT ANGIO CHEST PE PROTOCOL 08/23/2024 4:06 PM FINDINGS: Pulmonary arteries: Normal. No pulmonary emboli. Aorta: Unremarkable. No aortic aneurysm. No aortic dissection. Lungs: Suboptimal timing of the contrast bolus. Linear scarring/atelectasis left lung base Pleural spaces: Unremarkable. No pneumothorax. No pleural effusion. Heart: Unremarkable. No cardiomegaly. No pericardial effusion. Lymph nodes: Unremarkable. No enlarged lymph nodes. Bones/joints: Unremarkable. No acute fracture. Soft tissues: Unremarkable. IMPRESSION: 1. Suboptimal timing of the contrast bolus limits evaluation for pulmonary embolus. No large pulmonary embolism is appreciated 2. Linear scarring/atelectasis left lung base
[2025-03-10 10:01] LABS: Total Cells Counted 100
[2025-03-10 10:02] LABS: Hypochromasia 2+
--- NOTE | 2025-03-10 10:12 | HMH.EDGENADL ---
Discharge Plan Disposition Patient Disposition: Admitted Discharge ED Provider: Ty Noel General Adult HPI General Chief complaint: Shortness of Breath/Dyspnea Stated complaint: SOA Time Seen by Provider: 03/10/25 08:45 Mode of Arrival: EMS Source of Information: Patient, EMS and Medical Record Description of Symptoms (Recalled from ER Triage Doc. by RN): Pt c/o SOA and being smothered that began this AM. States she also feels like her AICD is shocking her per EMS. Pt states she has a hx of CHF and take Toresmide. States she is taking 3 times more than she should d/t I was taking it to get the swelling off my feet . Denies any cough, congestion, fever, chills, or body aches. States she feels heavy and tight in her chest. History of Present Illness HPI narrative: This patient has a past medical history of congestive heart failure, COPD, implantable cardiac defibrillator. She presents to the emergency department with complaints of shortness of breath. She says that she woke from sleep this morning with a feeling of heaviness in tightness on her chest, and a sensation that she was being smothered. She reports feeling that her diuretic at home is inadequate, she has been tripling her dose at home with minimal improvement in her urine output. She also reports feeling wheezy, and tight. She has a history of COPD and asthma, typically uses an inhaler 3 times daily. She feels that it is only minimally helpful. Related Data Home Medications ?Medication ?Instructions ?Recorded ?Confirmed calcium carbonate (Calcium 600) 600 mg PO DAILY 10/03/23 03/10/25 fluticasone fur. 100 mcg-umeclid 1 inh inhalation DAILY 09/24/24 03/10/25 62.5 mcg-vilant 25 mcg inhalat.powder (Trelegy Ellipta) bupropion HCl 200 mg tablet,12 hr 400 mg PO DAILY 12/02/24 03/10/25 sustained-release metformin 500 mg tablet 500 mg PO BIDWMEAL 12/02/24 03/10/25 torsemide 20 mg tablet 60 mg PO BIDL 12/03/24 03/10/25 albuterol sulfate 90 mcg/actuation 2 puff inhalation Q4HP PRN 12/07/24 03/10/25 aerosol inhaler Shortness Of Breath ropinirole 4 mg tablet 4 mg PO DAILY 12/25/24 03/10/25 aspirin 81 mg tablet,delayed 81 mg PO DAILY 03/10/25 03/10/25 release atorvastatin 40 mg tablet 40 mg PO HS 03/10/25 03/10/25 cyanocobalamin (vitamin B-12) 1,000 mcg PO DAILY 03/10/25 03/10/25 1,000 mcg tablet ipratropium 0.5 mg-albuterol 3 mg 3 ml inhalation QIDP PRN Shortness 03/10/25 03/10/25 (2.5 mg base)/3 mL nebulization Of Breath soln levothyroxine 150 mcg tablet 300 mcg PO DAILY 03/10/25 03/10/25 metolazone 5 mg tablet 5 mg PO BID 03/10/25 03/10/25 metoprolol tartrate 25 mg tablet 12.5 mg PO BID 03/10/25 03/10/25 midodrine 10 mg tablet 10 mg PO TID 03/10/25 03/10/25 ondansetron 4 mg disintegrating 4 mg PO Q8HP PRN Nausea And 03/10/25 03/10/25 tablet Vomiting oxybutynin chloride 5 mg tablet 5 mg PO BID 03/10/25 03/10/25 semaglutide 0.25 mg or 0.5 mg (2 0.5 mg SQ WEEKLY 03/10/25 03/10/25 mg/3 mL) subcutaneous pen injector (Ozempic) trazodone 150 mg tablet 300 mg PO HS 03/10/25 03/10/25 Previous Rx's ?Medication ?Instructions ?Recorded cholecalciferol (vitamin D3) 1,250 1,250 mcg PO WEEKLY #12 caps 05/26/24 mcg (50,000 unit) capsule evolocumab 140 mg/mL subcutaneous 140 mg SQ Q2W #2 mL 11/24/24 pen injector (Repkannan Marquezick) spironolactone 100 mg tablet 100 mg PO DAILY #90 tabs 12/23/24 Allergies Allergy/AdvReac Type Severity Reaction Status Date / Time adhesive tape (ADHESIVE TAPE) Allergy Unknown Blister Verified 11/22/24 14:36 hydromorphone (From DILAUDID) Allergy Unknown Hypotension Verified 11/22/24 14:36 nickel (NICKEL) Allergy Unknown Blister Verified 11/22/24 14:36 [facility] Disclaimer: The information contained in this section may have been updated after the patient was seen, as this information can be updated by other users. Medical History Pleural effusion Aphthous ulcer of mouth Slurred speech Transaminitis Elevated troponin Elevated liver enzymes GWEN (acute kidney injury) Bradycardia Morbid obesity with body mass index (BMI) greater than or equal to 70 in adult Postmenopausal bleeding HLD (hyperlipidemia) Obesity Abdominal pain UTI (urinary tract infection) Hospital discharge follow-up Establishing care with new doctor, encounter for Restless leg Glaucoma Arthritis of both knees Urinary incontinence Unspecified asthma, uncomplicated Tear of meniscus of knee Pre-diabetes Diastolic CHF, acute on chronic Pulmonary hypertension Elevated left ventricular end-diastolic pressure (LVEDP) Asthma exacerbation Sleep apnea History of COVID-19 COPD (chronic obstructive pulmonary disease) Asthma Abscess of groin, right Acute exacerbation of chronic obstructive airways disease Left against medical advice Dependent on wheelchair Assistance needed for continence Incisional hernia Lower leg pain Knee pain Vaginal bleeding Perimenopausal Cellulitis Hypothyroidism Dizziness Chest pain Sinusitis Tobacco abuse counseling Tobacco abuse HONEY (obstructive sleep apnea) Ventral hernia Dyspnea Depression Pharyngitis due to Streptococcus species Epigastric pain Gastritis Strep throat HTN (hypertension) Hypothyroidism (acquired) TIA (transient ischemic attack) COPD exacerbation Paresthesias Shortness of breath Acute bronchitis Tobacco abuse COPD (chronic obstructive pulmonary disease) Infiltrate of lung present on chest x-ray Atelectasis of right lung Cough Upper respiratory infection Surgical History History of lateral meniscus repair of right knee H/O tubal ligation Hx of cholecystectomy H/O hernia repair History of colon resection Family History Mother Hypertension Diabetes Father Cancer Social History Smoking Status: Former smoker tobacco type: cigarettes packs per day: 1 years smoked: 38 smoking status stop date: 3 months ago quit status: has quit before second hand exposure: Yes alcohol intake: never substance use type: denies use current occupational status: unemployed Travel in the last 8 weeks?: None household members: family and children housing: other lives independently: No marital status: legally number of children: 4 education level: other caffeine: Yes do you feel safe at home: Yes victim of physical abuse: No victim of emotional abuse: No victim of sexual abuse: No Contact w/someone who lives/traveled outside [place] past 30 days?: No Exposure to someone with infectious disease in past 14 days?: No Do you have a fever (greater than 100.4 F or 38 C)?: No Have you tested positive for COVID-19?: No Exposed to someone with COVID-19 in past 14 days?: No Do you have a sore throat?: No Do you have a cough?: No Do you have any weakness?: No Are you experiencing any nausea/vomitting?: No Do you have any diarrhea?: No Are you experiencing any unusual bleeding?: No Do you have any muscle aches/pain?: No Do you have any abdominal pain?: No Are you experiencing loss of taste or smell?: No Other Medical History Have you received the Flu Vaccine for this season: No Have you received the Pneumonia Vaccine: No ROS Obtained: Yes All systems reviewed & no additional complaints except as documented Physical Exam General General appearance: alert and in no apparent distress Head Head exam: atraumatic and normocephalic Eye Eye exam: Present normal appearance, PERRL and EOMI ENT ENT exam: Present normal exam and normal external ear exam Neck Neck exam: Present normal inspection, full ROM and trachea midline Chest Chest inspection: Present normal inspection and symmetric chest wall rise; Absent tenderness Respiratory Respiratory exam: Absent respiratory distress Cardiovascular Cardiovascular exam: Present regular rate, normal rhythm and other (appears warm and well perfused) Abdominal Exam Abdominal exam: Absent distention or tenderness Extremities Exam Extremities exam: Present normal inspection and full ROM Neurological Exam Neurological exam: Present alert and oriented X3 Psychiatric Psychiatric exam: Present normal affect Skin Skin exam: Present warm and dry Medical Decision Making Medical Records Medical records reviewed: Yes I reviewed the patient's medical records. Screening: Per USPSTF and CDC recommendations, given the prevalence of disease in our region, it is our hospital?s policy to screen for HIV and viral Hepatitis for all patients aged 18 and over and those with ongoing risk factors. [place] Inquiry Pt receiving controlled substance: No Woodrow was queried for this patient: No Vital Signs: 03/10/25 08:13 03/10/25 08:26 03/10/25 08:31 Temperature Pulse Rate 82 Pulse Rate [Right] 92 H Respiratory Rate 28 H 15 Blood Pressure 89/40 L Blood Pressure [Right Arm] 110/68 Blood Pressure Mean Blood Pressure Mean [Right Arm] 82 Blood Pressure Source [Right Arm] Automatic Cuff 02 Sat by Pulse Oximetry 94 L 94 L 91 L Oxygen Delivery Method Nasal Cannula Nasal Cannula Oxygen Flow Rate (LPM) 3 3 03/10/25 09:42 03/10/25 10:00 03/10/25 11:00 Temperature Pulse Rate 88 85 84 Pulse Rate [Right] Respiratory Rate 22 18 17 Blood Pressure 93/44 L 108/48 L 83/44 L Blood Pressure [Right Arm] Blood Pressure Mean Blood Pressure Mean [Right Arm] Blood Pressure Source [Right Arm] 02 Sat by Pulse Oximetry 95 94 L 99 Oxygen Delivery Method Nasal Cannula Nasal Cannula Oxygen Flow Rate (LPM) 3 3 03/10/25 11:30 03/10/25 12:00 03/10/25 12:03 Temperature Pulse Rate 82 89 Pulse Rate [Right] Respiratory Rate 16 18 Blood Pressure 81/65 L Blood Pressure [Right Arm] Blood Pressure Mean Blood Pressure Mean [Right Arm] Blood Pressure Source [Right Arm] 02 Sat by Pulse Oximetry 95 92 L 96 Oxygen Delivery Method Nasal Cannula Oxygen Flow Rate (LPM) 2 03/10/25 12:22 03/10/25 12:22 03/10/25 12:30 Temperature 98 F Pulse Rate 85 82 Pulse Rate [Right] Respiratory Rate 12 16 Blood Pressure 102/46 L 104/55 L Blood Pressure [Right Arm] Blood Pressure Mean 62 Blood Pressure Mean [Right Arm] Blood Pressure Source [Right Arm] 02 Sat by Pulse Oximetry 96 Oxygen Delivery Method Nasal Cannula Oxygen Flow Rate (LPM) 3 Lab Data Lab results reviewed: Yes I reviewed the patient's lab results. Lab Results 03/10/25 08:25: WBC 11.5 H, RBC 3.45 L, Hgb 7.4 L, Hct 27.2 L, MCV 78.8 L, MCH 21.4 L, MCHC 27.2 L, RDW 18.7 H, Plt Count 368, MPV 9.9, Neut % (Auto) 75.0, Lymph % (Auto) 16.9, Atkinson % (Auto) 5.5, Eos % (Auto) 1.6, Baso % (Auto) 0.3, Neut # (Auto) 8.6 H, Lymph # (Auto) 1.9, Atkinson # (Auto) 0.6, Eos # (Auto) 0.2, Baso # (Auto) 0.0, Total Counted 100, Neutrophils % (Manual) 76, Lymphocytes % (Manual) 19, Monocytes % (Manual) 4, Eosinophils % (Manual) 1, Platelet Estimate Normal, Hypochromasia 2+, Sodium 135 L, Potassium 4.3, Chloride 96 L, Carbon Dioxide 34 H, Anion Gap 9.3, BUN 17, Creatinine 0.80, Estimated GFR 74, Est GFR ( Amer) 90, Glucose 138 H, Calcium 8.8, Total Bilirubin 0.3, AST 23, ALT 11 L, Alkaline Phosphatase 89, Troponin I < 0.01, C-Reactive Protein 54.9 H, NT-Pro-B Natriuret Pep 427 H, Total Protein 6.6, Albumin 3.4 L, Globulin 3.2, Albumin/Globulin Ratio 1.1 03/10/25 08:36: SARS-CoV-2 (PCR) Not detected, Influenza A Untype (PCR) Not detected, Influenza Type B (PCR) Not detected 03/10/25 08:39: VBG pH 7.41, VBG pCO2 52.5 H, VBG pO2 98.6 H, VBG HCO3 32.8 H, VBG Total CO2 34.4 H, VBG O2 Saturation 96.9 H, VBG Base Excess 8.2 H, VBG Lactic Acid 1.9 03/10/25 11:08: Urine Color Yellow, Urine Appearance Clear, Urine pH 6.5, Ur Specific [place] <= 1.005, Urine Protein Negative, Urine Glucose (UA) Negative, Urine Ketones Negative, Urine Blood 3+ A, Urine Nitrate Negative, Urine Bilirubin Negative, Urine Urobilinogen 0.2, Ur Leukocyte Esterase 1+ A, Urine RBC 20-50, Urine WBC Occasional, Ur Squamous Epith Cells 3-5, Urine Bacteria 1+ 03/10/25 08:25 03/10/25 08:25 Orders (Tests/Meds): ED MEDICATIONS Generic Name Dose Route Start Last Admin Trade Name Freq PRN Reason Stop Dose Admin Acetaminophen 650 mg 03/10/25 11:54 Acetaminophen 325mg Tab PO 04/09/25 11:53 Q4HP PRN Fever or Mild Pain (1-3) Albuterol/Ipratropium 3 ml 03/10/25 18:00 Ipratropium/Albuterol 3 Ml Neb IH 04/09/25 17:59 Q6RT LINDSEY Aspirin 81 mg 03/11/25 09:00 Aspirin Ec 81mg Tablet PO 04/10/25 08:59 DAILY LINDSEY Atorvastatin Calcium 40 mg 03/10/25 21:00 Atorvastatin 40mg Tablet PO 04/09/25 20:59 HS LINDSEY Bumetanide 3 mg 03/10/25 16:00 Bumetanide 1mg/4ml Vial IV 04/09/25 15:59 BIDL LINDSEY Bupropion HCl 300 mg 03/11/25 09:00 Bupropion Hcl Sr 150mg Tab PO 04/10/25 08:59 DAILY LINDSEY Enoxaparin Sodium 60 mg 03/10/25 21:00 Enoxaparin 60mg/0.6ml Syringe SUBCUT 04/09/25 20:59 BID LINDSEY Fluticasone/Umeclidinium/Vilanterol 1 puff 03/11/25 09:00 Fluticasone/Umeclidin/Vilanter 100/62.5/25mcg Inhaler IH 04/10/25 08:59 DAILY LINDSEY Ceftriaxone Sodium 2 gm/ 100 mls @ 200 mls/hr 03/10/25 12:30 03/10/25 13:47 Sodium Chloride IV 03/20/25 12:29 Infused Q24H LINDSEY Infusion Levothyroxine Sodium 300 mcg 03/11/25 07:00 Levothyroxine 150mcg (0.15mg)Tab PO 04/10/25 06:59 DAILYDM LINDSEY Metformin HCl 500 mg 03/10/25 17:30 Metformin 500mg Tablet PO 04/09/25 17:29 BIDWMEAL LINDSEY Metolazone 5 mg 03/10/25 16:00 Metolazone 2.5mg Tablet PO 04/09/25 15:59 BIDL LINDSEY Metoprolol Tartrate 12.5 mg 03/10/25 21:00 Metoprolol Tartrate 25mg Tablet PO 04/09/25 20:59 BID LINDSEY Midodrine 10 mg 03/10/25 21:00 Midodrine Hcl 5 Mg Tablet PO 04/09/25 20:59 TID LINDSEY Oxybutynin Chloride 5 mg 03/10/25 21:00 Oxybutynin 5mg Tab PO 04/09/25 20:59 BID LINDSEY Pantoprazole Sodium 40 mg 03/10/25 21:00 Pantoprazole 40mg Tablet PO 04/09/25 20:59 HS LINDSEY Ropinirole HCl 4 mg 03/10/25 14:30 03/10/25 15:17 Ropinirole 1mg Tablet PO 04/09/25 14:29 4 mg HSP PRN Administration leg cramps Spironolactone 100 mg 03/11/25 09:00 Spironolactone 25mg Tablet PO 04/10/25 08:59 DAILY LINDSEY Trazodone HCl 300 mg 03/10/25 21:00 Trazodone 50mg Tablet PO 04/09/25 20:59 HS [facility] Discontinued Medications Generic Name Dose Route Start Last Admin Trade Name Freq PRN Reason Stop Dose Admin Albuterol/Ipratropium 9 ml 03/10/25 08:33 03/10/25 09:06 Ipratropium/Albuterol 3 Ml Neb IH 03/10/25 08:34 9 ml ONCE ONE Administration Bumetanide 2 mg 03/10/25 16:00 Bumetanide 1mg/4ml Vial IV 04/09/25 15:59 BIDL LINDSEY Furosemide 40 mg 03/10/25 08:25 03/10/25 09:06 Furosemide 40mg/4ml Vial IV 03/10/25 08:26 40 mg ONCE ONE Administration Iopamidol 100 ml 03/10/25 10:35 03/10/25 10:37 Iopamidol-370 (76%);100ml Bottle IV 03/10/25 10:36 100 ml ONCE ONE Administration Iopamidol 40 ml 03/10/25 10:36 03/10/25 10:37 Iopamidol-370 (76%);100ml Bottle IV 03/10/25 10:37 40 ml ONCE ONE Administration Sodium Chloride 40 ml 03/10/25 10:35 03/10/25 10:37 0.9 % Sodium Chloride 50 Ml Vial IV 03/10/25 10:36 40 ml ONCE ONE Administration Sodium Chloride 10 ml 03/10/25 10:35 03/10/25 10:37 Sodium Chloride 0.9% 10ml Syr (Rad Only) IV 03/10/25 10:36 10 ml ONCE ONE Administration ORDERS Category Date Time Status CT angio chest PE protocol Stat Cat Scan 03/10/25 09:44 Completed CXR --portable [XR chest portable] Stat Exams 03/10/25 08:26 Completed BNP [NT Pro Brain Natriuretic Pep.] Stat Lab 03/10/25 08:25 Completed CBC Man Diff [Complete Blood Count Man Dif] Stat Lab 03/10/25 08:25 Completed CMP [Comprehensive Metabolic Panel] Stat Lab 03/10/25 08:25 Completed CRP [C-Reactive Protein] Stat Lab 03/10/25 08:25 Completed Complete Blood Count Auto Diff AMLAB Lab 03/11/25 06:00 Ordered Comprehensive Metabolic Panel AMLAB Lab 03/11/25 06:00 Ordered Lactate Venous Stat Lab 03/10/25 08:41 Ordered Magnesium AMLAB Lab 03/11/25 06:00 Ordered Rapid PCR Covid and Flu A/B Stat Lab 03/10/25 08:36 Completed Troponin I Q3H Lab 03/10/25 08:25 Completed Troponin I Q3H Lab 03/10/25 12:14 Completed UA [Urinalysis and Microscopic] Stat Lab 03/10/25 11:08 Completed Urine Culture Stat Micro 03/10/25 11:08 Received VBG [Venous Blood Gas] Stat RT 03/10/25 08:39 Completed Medical Decision Narrative: MDM In summary, this 54-year-old female presents to the emergency department today with shortness of breath. Initial evaluation the patient the patient is uncomfortable, hemodynamically stable, requiring more oxygen support than she is on at baseline. Differential diagnosis includes but is not limited to congestive heart failure, COPD, asthma, pulmonary embolism, ACS, CA. Based on these concerns, I ordered a comprehensive laboratory and imaging workup. ECG personally interpreted by me demonstrates normal sinus rhythm with mild AR prolongation. Patient received albuterol, ipratropium, Lasix for treatment. Labs personally reviewed and interpreted demonstrate mild leukocytosis, mild anemia that appears to be worse than baseline, VBG is notable for CO2 retention, no acidosis indicating compensated mild respiratory failure. Laboratory workup shows mild hyponatremia, elevated glucose, elevated inflammatory markers, elevated BNP, urinalysis shows mild hematuria. Respiratory PCR is negative. X-rays personally interpreted by me demonstrate reduced lung volumes. CT imaging personally interpreted by me demonstrate no sign of pulmonary embolism or pneumonia. On reassessment the patient reported mild improvement but she was still requiring slightly above baseline in terms of oxygen, I did not feel comfortable with discharge at this time. Given her multiple medical comorbidities and exacerbations of COPD and CHF I felt that admission to the hospital was reasonable. I consulted the internal medicine service, and after an interactive discussion, they felt that it was appropriate to accept the patient onto their service for further care and management. Critical Care Critical Care Time Critical Care Time: No
[2025-03-10] MEDS: IOPAMIDOL-370 (76%);100ML BOTTLE 100 ML IV (10:37)
[2025-03-10] MEDS: IOPAMIDOL-370 (76%);100ML BOTTLE 40 ML IV (10:37)
[2025-03-10] MEDS: 0.9 % SODIUM CHLORIDE 50 ML VIAL 40 ML IV (10:37)
[2025-03-10] MEDS: SODIUM CHLORIDE 0.9% 10ML SYR (RAD ONLY) 10 ML IV (10:37)
[2025-03-10 11:14] LABS: Microscopic, Urine URINE MICROSCOPIC (MICROSCOPIC)
[2025-03-10 11:17] LABS: Bilirubin,Urine Negative (Negative); Color,Urine YELLOW (Yellow); Glucose,Urine (UA) Negative (Negative); Ketones,Urine Negative (Negative); Leukocyte Esterase,Urine 1+ (Negative); PH,Urine 6.5 (5.0-8.5); Protein,Urine Negative (Negative); Specific Gravity, Urine <= 1.005 (1.005-1.030); Urobilinogen,Urine 0.2 EU/dl (0.2)
--- NOTE | 2025-03-10 11:46 | PC.NURSE ---
Reached out to , he states he will call back shortly.
[2025-03-10 11:51] LABS: Bacteria,Urine 1+ /lpf; RBC,Urine 20-50 #/hpf (0-3); WBC,Urine Occasional #/hpf (0-3)
--- NOTE | 2025-03-10 11:51 | PC.NURSE ---
speaking with about possible admission
--- NOTE | 2025-03-10 11:54 | PC.NURSE ---
HS notified of the need for a bed to admit the pt.
--- NOTE | 2025-03-10 11:57 | HMH.PHAINT1 ---
Pharmacy Intervention Comments: MEDICATION RECONCILIATION COMPLETED ON PATIENT USING EXTERNAL FILL HISTORY FROM PHARMACY. -DG YEUNG, ROCKD
--- NOTE | 2025-03-10 12:00 | EXP.HP ---
History of Present Illness *Admission Date: 03/10/25 *Reason for visit:: dyspnea, weakness *History of present illness: This is a 54-year-old with past medical history of COPD, T2DM, morbid obesity, hypothyroidism, diastolic heart failure, HONEY, tobacco abuse who presents emergency department today with complaints of weakness, shortness of breath. Also feels a tingling with her AICD. No colleen shocks or feeling like her chest has been hit however. Of note her pacemaker/defibrillator was placed at [place] [facility] due to unfortunately to patient's size prohibiting her ability to have intervention at our facility. Initially required increased oxygen on arrival to the ED. Is on baseline 2 L oxygen continuously. Oxygen was increased to 3 to 4 L due to dyspnea and shortness of breath as well as low oxygen saturations. Labs with baseline kidney function. Flu and COVID were negative. CTA of chest was negative for PE. Urine suspicious for possible UTI. BNP mildly elevated at 427. Given her increased oxygen requirement, complaint of swelling in her legs, complaint of shortness of breath, medicine was consulted for admission of suspected CHF exacerbation versus COPD exacerbation and for further medical optimization. On arrival to the floor, patient appears in mild distress. States she has not noticed increased urine output with her diuretic. Denies any fever, no vomiting but does complain of some heartburn and mild nausea. States she does not walk at home, is cared for by family. [facility] Disclaimer: The information contained in this section may have been updated after the patient was seen, as this information can be updated by other users. Medical History Pleural effusion Aphthous ulcer of mouth Slurred speech Transaminitis Elevated troponin Elevated liver enzymes GWEN (acute kidney injury) Bradycardia Morbid obesity with body mass index (BMI) greater than or equal to 70 in adult Postmenopausal bleeding HLD (hyperlipidemia) Obesity Abdominal pain UTI (urinary tract infection) Hospital discharge follow-up Establishing care with new doctor, encounter for Restless leg Glaucoma Arthritis of both knees Urinary incontinence Unspecified asthma, uncomplicated Tear of meniscus of knee Pre-diabetes Diastolic CHF, acute on chronic Pulmonary hypertension Elevated left ventricular end-diastolic pressure (LVEDP) Asthma exacerbation Sleep apnea History of COVID-19 COPD (chronic obstructive pulmonary disease) Asthma Abscess of groin, right Acute exacerbation of chronic obstructive airways disease Left against medical advice Dependent on wheelchair Assistance needed for continence Incisional hernia Lower leg pain Knee pain Vaginal bleeding Perimenopausal Cellulitis Hypothyroidism Dizziness Chest pain Sinusitis Tobacco abuse counseling Tobacco abuse HONEY (obstructive sleep apnea) Ventral hernia Dyspnea Depression Pharyngitis due to Streptococcus species Epigastric pain Gastritis Strep throat HTN (hypertension) Hypothyroidism (acquired) TIA (transient ischemic attack) COPD exacerbation Paresthesias Shortness of breath Acute bronchitis Tobacco abuse COPD (chronic obstructive pulmonary disease) Infiltrate of lung present on chest x-ray Atelectasis of right lung Cough Upper respiratory infection Surgical History History of lateral meniscus repair of right knee H/O tubal ligation Hx of cholecystectomy H/O hernia repair History of colon resection Family History Mother Hypertension Diabetes Father Cancer Social History Smoking Status: Former smoker tobacco type: cigarettes packs per day: 1 years smoked: 38 smoking status stop date: 3 months ago quit status: has quit before second hand exposure: Yes alcohol intake: never substance use type: denies use current occupational status: unemployed Travel in the last 8 weeks?: None household members: family and children housing: other lives independently: No marital status: legally number of children: 4 education level: other caffeine: Yes do you feel safe at home: Yes victim of physical abuse: No victim of emotional abuse: No victim of sexual abuse: No Contact w/someone who lives/traveled outside [place] past 30 days?: No Exposure to someone with infectious disease in past 14 days?: No Do you have a fever (greater than 100.4 F or 38 C)?: No Have you tested positive for COVID-19?: No Exposed to someone with COVID-19 in past 14 days?: No Do you have a sore throat?: No Do you have a cough?: No Do you have any weakness?: No Are you experiencing any nausea/vomitting?: No Do you have any diarrhea?: No Are you experiencing any unusual bleeding?: No Do you have any muscle aches/pain?: No Do you have any abdominal pain?: No Are you experiencing loss of taste or smell?: No Other Medical History Have you received the Flu Vaccine for this season: No Have you received the Pneumonia Vaccine: No Review of Systems Review of Systems Review of systems (narrative): 14 point review of systems performed, pertinent positives and negatives as per HPI Meds Home Medications and Allergies Home Medications ?Medication ?Instructions ?Recorded ?Confirmed ?Type calcium carbonate (Calcium 600) 600 mg PO DAILY 10/03/23 03/10/25 History cholecalciferol (vitamin D3) 1,250 1,250 mcg PO WEEKLY #12 caps 05/26/24 03/10/25 Rx mcg (50,000 unit) capsule fluticasone fur. 100 mcg-umeclid 1 inh inhalation DAILY 09/24/24 03/10/25 History 62.5 mcg-vilant 25 mcg inhalat.powder (Trelegy Ellipta) evolocumab 140 mg/mL subcutaneous 140 mg SQ Q2W #2 mL 11/24/24 03/10/25 Rx pen injector (Meli Dowling) bupropion HCl 200 mg tablet,12 hr 400 mg PO DAILY 12/02/24 03/10/25 History sustained-release metformin 500 mg tablet 500 mg PO BIDWMEAL 12/02/24 03/10/25 History torsemide 20 mg tablet 60 mg PO BIDL 12/03/24 03/10/25 History albuterol sulfate 90 mcg/actuation 2 puff inhalation Q4HP PRN 12/07/24 03/10/25 History aerosol inhaler Shortness Of Breath spironolactone 100 mg tablet 100 mg PO DAILY #90 tabs 12/23/24 03/10/25 Rx ropinirole 4 mg tablet 4 mg PO DAILY 12/25/24 03/10/25 History aspirin 81 mg tablet,delayed 81 mg PO DAILY 03/10/25 03/10/25 History release atorvastatin 40 mg tablet 40 mg PO HS 03/10/25 03/10/25 History cyanocobalamin (vitamin B-12) 1,000 mcg PO DAILY 03/10/25 03/10/25 History 1,000 mcg tablet ipratropium 0.5 mg-albuterol 3 mg 3 ml inhalation QIDP PRN Shortness 03/10/25 03/10/25 History (2.5 mg base)/3 mL nebulization Of Breath soln levothyroxine 150 mcg tablet 300 mcg PO DAILY 03/10/25 03/10/25 History metolazone 5 mg tablet 5 mg PO BID 03/10/25 03/10/25 History metoprolol tartrate 25 mg tablet 12.5 mg PO BID 03/10/25 03/10/25 History midodrine 10 mg tablet 10 mg PO TID 03/10/25 03/10/25 History ondansetron 4 mg disintegrating 4 mg PO Q8HP PRN Nausea And 03/10/25 03/10/25 History tablet Vomiting oxybutynin chloride 5 mg tablet 5 mg PO BID 03/10/25 03/10/25 History semaglutide 0.25 mg or 0.5 mg (2 0.5 mg SQ WEEKLY 03/10/25 03/10/25 History mg/3 mL) subcutaneous pen injector (Ozempic) trazodone 150 mg tablet 300 mg PO HS 03/10/25 03/10/25 History New Prescriptions to Start Prescriptions: Allergies Allergy/AdvReac Type Severity Reaction Status Date / Time adhesive tape (ADHESIVE TAPE) Allergy Unknown Blister Verified 11/22/24 14:36 hydromorphone (From DILAUDID) Allergy Unknown Hypotension Verified 11/22/24 14:36 nickel (NICKEL) Allergy Unknown Blister Verified 11/22/24 14:36 Exam Data for Last 24 hours Vital signs and Labs for Last 24 Hours: Pulse Resp BP Pulse Ox O2 Del Method O2 Flow Rate 82 16 83/44 L 95 Nasal Cannula 3 03/10/25 11:30 03/10/25 11:30 03/10/25 11:00 03/10/25 11:30 03/10/25 10:00 03/10/25 10:00 Laboratory Results - last 24 hr 03/10/25 08:25: WBC 11.5 H, RBC 3.45 L, Hgb 7.4 L, Hct 27.2 L, MCV 78.8 L, MCH 21.4 L, MCHC 27.2 L, RDW 18.7 H, Plt Count 368, MPV 9.9, Neut % (Auto) 75.0, Lymph % (Auto) 16.9, Brule % (Auto) 5.5, Eos % (Auto) 1.6, Baso % (Auto) 0.3, Neut # (Auto) 8.6 H, Lymph # (Auto) 1.9, Brule # (Auto) 0.6, Eos # (Auto) 0.2, Baso # (Auto) 0.0, Total Counted 100, Neutrophils % (Manual) 76, Lymphocytes % (Manual) 19, Monocytes % (Manual) 4, Eosinophils % (Manual) 1, Platelet Estimate Normal, Hypochromasia 2+, Sodium 135 L, Potassium 4.3, Chloride 96 L, Carbon Dioxide 34 H, Anion Gap 9.3, BUN 17, Creatinine 0.80, Estimated GFR 74, Est GFR ( Amer) 90, Glucose 138 H, Calcium 8.8, Total Bilirubin 0.3, AST 23, ALT 11 L, Alkaline Phosphatase 89, Troponin I < 0.01, C-Reactive Protein 54.9 H, NT-Pro-B Natriuret Pep 427 H, Total Protein 6.6, Albumin 3.4 L, Globulin 3.2, Albumin/Globulin Ratio 1.1 03/10/25 08:36: SARS-CoV-2 (PCR) Not detected, Influenza A Untype (PCR) Not detected, Influenza Type B (PCR) Not detected 03/10/25 08:39: VBG pH 7.41, VBG pCO2 52.5 H, VBG pO2 98.6 H, VBG HCO3 32.8 H, VBG Total CO2 34.4 H, VBG O2 Saturation 96.9 H, VBG Base Excess 8.2 H, VBG Lactic Acid 1.9 03/10/25 11:08: Urine Color Yellow, Urine Appearance Clear, Urine pH 6.5, Ur Specific [place] <= 1.005, Urine Protein Negative, Urine Glucose (UA) Negative, Urine Ketones Negative, Urine Blood 3+ A, Urine Nitrate Negative, Urine Bilirubin Negative, Urine Urobilinogen 0.2, Ur Leukocyte Esterase 1+ A, Urine RBC 20-50, Urine WBC Occasional, Ur Squamous Epith Cells 3-5, Urine Bacteria 1+ I & O for Last 24 hours: Intake & Output 03/07/25 03/08/25 03/09/25 03/10/25 23:59 23:59 23:59 23:59 Weight 200.941 kg Constitutional Constitutional: mild distress, morbidly obese, chronically ill appearing and cooperative *Routine HEENT Exam Head: Present normocephalic and cushingoid faces Eye: Present EOMI and PERRL ENT: Present mucous membranes moist *Routine Neck Exam Neck: Present supple; Absent lymphadenopathy *Routine Respiratory Exam Respiratory: Present prolonged expiratory phase and distant breath sounds; Absent respiratory distress, stridor, wheezes or crackles *Routine Cardiovascular Exam Cardiovascular: Present RRR *Routine Abdominal Exam Abdominal: Present soft, normoactive bowel sounds and obese; Absent tenderness or distended *Routine Rectal Exam Rectal:: deferred *Routine Genitalia Exam Genitalia:: deferred *Routine Extremities Exam Extremities: Present edema (2+ to knees); Absent cyanosis or clubbing *Routine Skin Exam Skin: Present intact and warm; Absent rash *Routine Neurological Exam Neurological: Present alert, oriented X3 and moving all extremities; Absent altered mental status Assessment and Plan *Assessment and plan (1) COPD exacerbation: Status: Acute Category: Medical Code(s): J44.1 - Chronic obstructive pulmonary disease with (acute) exacerbation (2) (HFpEF) heart failure with preserved ejection fraction: Status: Acute Qualifiers: Heart failure chronicity: unspecified Qualified Code(s): I50.30 - Unspecified diastolic (congestive) heart failure Category: Medical Code(s): I50.30 - Unspecified diastolic (congestive) heart failure (3) Morbid obesity with body mass index (BMI) greater than or equal to 70 in adult: Status: Acute Category: Medical Code(s): E66.01 - Morbid (severe) obesity due to excess calories; Z68.45 - Body mass index [BMI] 70 or greater, adult (4) Volume overload: Status: Acute Qualifiers: Hypervolemia type: unspecified Qualified Code(s): E87.70 - Fluid overload, unspecified Category: Medical Code(s): E87.70 - Fluid overload, unspecified (5) Obesity hypoventilation syndrome: Status: Acute Category: Medical Code(s): E66.2 - Morbid (severe) obesity with alveolar hypoventilation (6) Hypothyroid: Status: Acute Qualifiers: Hypothyroidism type: unspecified Qualified Code(s): E03.9 - Hypothyroidism, unspecified Category: Medical Code(s): E03.9 - Hypothyroidism, unspecified (7) Type 2 diabetes mellitus: Status: Acute Qualifiers: Diabetes mellitus complication status: without complication Diabetes mellitus buttermaker helper insulin use: without buttermaker helper use Qualified Code(s): E11.9 - Type 2 diabetes mellitus without complications Category: Medical Code(s): E11.9 - Type 2 diabetes mellitus without complications (8) Depression: Status: Acute Qualifiers: Depression Type: unspecified Qualified Code(s): F32.A - Depression, unspecified Category: Medical Code(s): F32.A - Depression, unspecified (9) Pulmonary hypertension: Status: Acute Category: Medical Code(s): I27.20 - Pulmonary hypertension, unspecified (10) HTN (hypertension): Status: Acute Qualifiers: Hypertension type: unspecified Qualified Code(s): I10 - Essential (primary) hypertension Category: Medical Code(s): I10 - Essential (primary) hypertension (11) COPD (chronic obstructive pulmonary disease): Status: Acute Qualifiers: COPD type: unspecified COPD Qualified Code(s): J44.9 - Chronic obstructive pulmonary disease, unspecified Category: Medical Code(s): J44.9 - Chronic obstructive pulmonary disease, unspecified Plan Stacey George is a 54 year old female who presents to our ED again to shortness of breath. Discussed case with ER physician, request admission for CHF exacerbation and potential UTI. BNP elevated at 427. Urine abnormal with leuk esterase and bacteria. I agreed to admit for further management. Will initiate diuresis. Increased oxygen from baseline on 3 to 4 L in the ER. Problems addressed as follows: #HFpEF exacerbation #Anasarca Mobitz type II heart block Pacemaker in situ COPD w/out exacerbation - Presented with progressive SOB, BNP 427. Has edema on exam. - Initiate Bumex IV 3 mg twice daily, spironolactone per home regimen 100 mg daily, and metolazone 5 mg twice daily. - Limited ECHO in November 2024 shows LVEF 50% per my review of chart. -Will interrogate pacemaker due to patient complaining of tingling sensation. - EKG with sinus rhythm with first-degree AV block per my review. - CT of the chest obtained showing scarring in the lung base but no PE per my review. Does not have any focal consolidation or airspace disease either. - Wean oxygen as tolerated, baseline of 2 L. Goal sats greater 90%. Currently on 3 L on arrival to the floor - Continue Trelegy 100 inhaler - DuoNebs every 6 hours scheduled - Kidney function with BUN 17, creatinine 0.8. Hypothyroid: TSH was 3.2 in December, 41 on 11/22. Needs repeat TSH to monitor for stability of control - Continue levothyroxine 300 mcg daily Prediabetes: A1c 6.3 in September. Will repeat A1c at this time. Fingersticks ACHS with sliding scale insulin Abnormal urinalysis. 1+ leuk esterase, 1+ bacteria. Urine collected through pure wick however. Was not a clean-catch or cath specimen. - Initiated on ceftriaxone 2 g once, urine culture negative, discontinue antibiotics. Oxybutynin 5 mg twice daily for overactive bladder Ropinirole 4 mg nightly as needed for restless leg Anemia: Hemoglobin 7.4. No active signs of bleeding. Will monitor with serial labs. Repeat CBC, CMP, magnesium ordered for the morning. Monitor for improvement with diuresis #Morbid obesity - Patient tearful, feels depressed about her weight and lifestyle. Has previously been through bariatric surgery prep program only to be told she's not a candidate. -Continues on Ozempic at this time. Has not seen her PCP in some time to have the dose adjusted however. - Weight is actually down from 2 months ago by 10 kg. #Physical deconditioning, chronic ? Has evaluated each visit by therapy. Continues to elect to go home. Has good support at home. Will hold on PT eval at this time. #Obesity: Complicating all aspects of care. #Anxiety/depression: Continue Wellbutrin 200 mg daily; continue trazodone 300 mg nightly Full code DVT prophylaxis: Lovenox 60 mg twice daily diabetic diet
--- NOTE | 2025-03-10 12:28 | PC.NURSE ---
Report called to Edy
[2025-03-10 12:48] LABS: Troponin I < 0.01 ng/ml (0.00-0.034)
[2025-03-10 13:18] LABS: Adenovirus,PCR Not Detected (NotDetected); Chlamydophila Pneumoniae, PCR Not Detected (NotDetected); Coronavirus 19, PCR Not Detected (NotDetected); Coronovirus HKU1,PCR Not Detected (NotDetected); Influenza A, PCR Not Detected (NotDetected); Influenza AH1, 2009 Not Detected (NotDetected); Influenza AH1, PCR Not Detected (NotDetected); Influenza AH3,PCR Not Detected (NotDetected); Influenza B, PCR Not Detected (NotDetected); Mycoplasma Pneumoniae, PCR Not Detected (NotDetected); Parainfluenza 1, PCR Not Detected (NotDetected); Parainfluenza 2, PCR Not Detected (NotDetected); Parainfluenza 3, PCR Not Detected (NotDetected); Parainfluenza 4, PCR Not Detected (NotDetected)
[2025-03-10] MEDS: ROPINIROLE 1MG TABLET 4 MG PO (15:17)
--- NOTE | 2025-03-10 16:00 | PC.WOUNDNOTE ---
coccyx, open area right buttock
[2025-03-10] MEDS: METFORMIN 500MG TABLET 500 MG PO (16:39)
[2025-03-10] MEDS: BUMETANIDE 1MG/4ML VIAL 3 MG IV (16:40)
[2025-03-10 16:57] LABS: POC Glucose,Bedside 142 (70-110)
[2025-03-10] MEDS: IPRATROPIUM/ALBUTEROL 3 ML NEB IH ×2 (17:42→23:30)
--- NOTE | 2025-03-10 18:26 | PC.NURSE ---
Pt is AOx4, on 2LNC. Pt has some excoriation on folds. Pt has deep tissue injury with an open area to sacrum, a foam dressing was applied. She was straight catheterized and specimen was obtained using sterile technique and was sent to lab. Pt c/o pain in legs, treatment provider per SEP. Pt brought Ropinorole from home, medication was locked in injection maintenance technician room. VSS. Call light within reach, bed in lowest position, plan of care on-going.
[2025-03-10 19:06] LABS: Thyroid Stimulating Hormone 8.02 uIU/mL (0.465-4.68)
[2025-03-10 19:09] LABS: Hemoglobin A1C 7.3 % (4.0-6.0)
[2025-03-10] MEDS: PANTOPRAZOLE 40MG TABLET 40 MG PO (20:05)
[2025-03-10] MEDS: ATORVASTATIN 40MG TABLET 40 MG PO (20:05)
[2025-03-10] MEDS: TRAZODONE 50MG TABLET 300 MG PO (20:06)
[2025-03-10] MEDS: MIDODRINE HCL 5 MG TABLET 10 MG PO (20:06)
[2025-03-11] VITALS: BP 104/40; PULSE 97; RESP 14; TEMP 36.8; O2SAT 92
--- NOTE | 2025-03-11 02:34 | PC.NURSE ---
Pt AOx4, pleasant. On baseline O2 with some diminished lung sounds. Denies pain or any additional concerns. Pt currently resting in bed with eyes open. Respirations even and unlabored. Bed is low, locked, and call light is in reach.
[2025-03-11 04:00] VITALS: BP 112/45; PULSE 85; RESP 16; TEMP 36.9; O2SAT 95; BMI 33.7
[2025-03-11 05:08] LABS: POC Glucose,Bedside 129 (70-110)
[2025-03-11] MEDS: LEVOTHYROXINE 150MCG (0.15MG)TAB 300 MCG PO (05:59)
[2025-03-11 06:06] LABS: POC Glucose,Bedside 141 (70-110)
[2025-03-11] MEDS: IPRATROPIUM/ALBUTEROL 3 ML NEB IH ×2 (06:06→11:18)
[2025-03-11] MEDS: FLUTICASONE/UMECLIDIN/VILANTER 100/62.5/25MCG INHALER 1 PUFF IH (06:07)
[2025-03-11 06:08] VITALS: PULSE 82; PULSE 84; O2SAT 97
[2025-03-11 06:13] LABS: Hematocrit 28.3 % (37.0-47.0); Hemoglobin 7.6 g/dL (12.2-16.2); Immature Granulocytes % 0.9 %; Mean Corpuscular HGB Conc 26.9 g/dL (31.8-35.4); Mean Corpuscular Hemoglobin 21.1 pg (27.0-31.2); Mean Corpuscular Volume 78.6 fl (81-99); Nucleated Red Blood Cells % 0 %; Platelet Count 348 K/mm3 (142-424); Red Blood Count 3.60 M/mm3 (4.20-5.40); Red Cell Distribution Width-SD 52.7 fL; White Blood Count 10.2 K/mm3 (4.8-10.8)
[2025-03-11 06:24] LABS: Albumin Level 3.5 g/dl (3.5-5.0); Chloride 98 mmol/L (98-107); Sodium 135 mmol/L (136-145)
[2025-03-11 06:25] LABS: Potassium 4.4 mmoL/L (3.5-5.1)
[2025-03-11 06:27] LABS: Alanine Aminotransferase 9 U/L (12-78); Albumin/Globulin Ratio 1.1 (1.1-1.8); Alkaline Phosphatase 97 U/L (38-126); Anion Gap 11.4 mEq/L (5-15); Aspartate Amino Transferase 22 U/L (14-36); Bilirubin,Total 0.2 mg/dl (0.2-1.3); Blood Urea Nitrogen 17 mg/dl (7-17); Carbon Dioxide 30 mmol/L (22.0-30.0); Creatinine Clearance Estimated 86 mL/min (50-200); Creatinine,Serum 1.00 mg/dl (0.52-1.04); Estimated Glomerular Filt Rate 57 ml/min (>60); GFR (African American) 69 ML/MIN (>60); Globulin 3.1 g/dL (1.3-3.2); Total Protein,Serum 6.6 g/dl (6.3-8.2)
[2025-03-11 06:28] LABS: Calcium 8.6 mg/dl (8.4-10.2); Glucose 128 mg/dl (74-100); Magnesium 1.8 mg/dl (1.6-2.3)
[2025-03-11 07:44] VITALS: BP 110/48; PULSE 88; RESP 18; TEMP 36.8; O2SAT 96
[2025-03-11] MEDS: MIDODRINE HCL 5 MG TABLET 10 MG PO ×2 (08:37→12:29)
[2025-03-11] MEDS: METOPROLOL TARTRATE 25MG TABLET 12.5 MG PO (08:38)
[2025-03-11] MEDS: ASPIRIN EC 81MG TABLET 81 MG PO (08:38)
[2025-03-11] MEDS: SPIRONOLACTONE 25MG TABLET 100 MG PO (08:38)
[2025-03-11] MEDS: BUMETANIDE 1MG/4ML VIAL 3 MG IV (08:39)
[2025-03-11] MEDS: METFORMIN 500MG TABLET 500 MG PO (08:39)
[2025-03-11 09:32] VITALS: BMI 74.4
[2025-03-11 10:58] LABS: POC Glucose,Bedside 147 (70-110)
[2025-03-11 11:19] VITALS: PULSE 76; PULSE 78; O2SAT 98
[2025-03-11 12:00] VITALS: BP 109/47; PULSE 81; RESP 18; TEMP 36.9; O2SAT 95
--- NOTE | 2025-03-11 12:45 | EXP.DC.SUM ---
General Admission date:: 03/10/25 Discharge date: 03/11/25 HPI HPI HPI: This is a 54-year-old with past medical history of COPD, T2DM, morbid obesity, hypothyroidism, diastolic heart failure, HONEY, tobacco abuse who presents emergency department today with complaints of weakness, shortness of breath. Also feels a tingling with her AICD. No colleen shocks or feeling like her chest has been hit however. Of note her pacemaker/defibrillator was placed at [place] due to unfortunately to patient's size prohibiting her ability to have intervention at our facility. Initially required increased oxygen on arrival to the ED. Is on baseline 2 L oxygen continuously. Oxygen was increased to 3 to 4 L due to dyspnea and shortness of breath as well as low oxygen saturations. Labs with baseline kidney function. Flu and COVID were negative. CTA of chest was negative for PE. Urine suspicious for possible UTI. BNP mildly elevated at 427. Given her increased oxygen requirement, complaint of swelling in her legs, complaint of shortness of breath, medicine was consulted for admission of suspected CHF exacerbation versus COPD exacerbation and for further medical optimization. On arrival to the floor, patient appears in mild distress. States she has not noticed increased urine output with her diuretic. Denies any fever, no vomiting but does complain of some heartburn and mild nausea. States she does not walk at home, is cared for by family. Hospital Course Hospital Course Hospital Course: Stacey George is a 54 year old female who presents to our ED again to shortness of breath. Discussed case with ER physician, request admission for CHF exacerbation and potential UTI. BNP elevated at 427. Urine abnormal with leuk esterase and bacteria. #HFpEF exacerbation - resolved #Anasarca - resolved Mobitz type II heart block Pacemaker in situ COPD w/out exacerbation - improved - Presented with progressive SOB, BNP 427. Has edema on exam. - dc on Bumex 3mg twice daily, spironolactone per home regimen 100 mg daily, and metolazone 5 mg twice daily. - Limited ECHO in November 2024 shows LVEF 50% per my review of chart. follow up with [facility] Outpatient and increase dose frequency of bumex Exam Data for Last 24 hours Vital signs and Labs for Last 24 Hours: Temp Pulse Resp BP Pulse Ox O2 Del Method O2 Flow Rate 98.5 F 81 18 109/47 L 95 Nasal Cannula 2 03/11/25 12:00 03/11/25 12:00 03/11/25 12:00 03/11/25 12:00 03/11/25 12:00 03/11/25 12:00 03/11/25 12:00 Laboratory Results - last 24 hr 03/10/25 08:25: Hemoglobin A1c 7.3 H, TSH 8.02 H 03/10/25 11:08: Urine Color Yellow, Urine Appearance Clear, Urine pH 6.5, Ur Specific [place] <= 1.005, Urine Protein Negative, Urine Glucose (UA) Negative, Urine Ketones Negative, Urine Blood 3+ A, Urine Nitrate Negative, Urine Bilirubin Negative, Urine Urobilinogen 0.2, Ur Leukocyte Esterase 1+ A, Urine RBC 20-50, Urine WBC Occasional, Ur Squamous Epith Cells 3-5, Urine Bacteria 1+ 03/10/25 12:14: Troponin I < 0.01 03/10/25 13:09: Chlamy pneumoniae PCR Not detected, Adenovirus (PCR) Not detected, B. pertussis DNA (PCR) Not detected, Coronavirus OC43 (PCR) Not detected, Coronavirus HKU1 (PCR) Not detected, Coronavirus 229E (PCR) Not detected, SARS-CoV-2 (PCR) Not detected, Coronavirus NL63 (PCR) Not detected, Human Metapneumovir PCR Not detected, Influenza A (H1) PCR Not detected, Influ A (H1N1/09) PCR Not detected, Influenza A (H3) PCR Not detected, Influenza Type A (PCR) Not detected, Influenza Type B (PCR) Not detected, M. pneumoniae (PCR) Not detected, Parainfluenza 1 (PCR) Not detected, Parainfluenza 2 (PCR) Not detected, Parainfluenza 3 (PCR) Not detected, Parainfluenza 4 (PCR) Not detected, RSV (PCR) Not detected, Entero/Rhino (PCR) Not detected 03/10/25 16:37: POC Glucose 142 H 03/10/25 19:53: POC Glucose 129 H 03/11/25 05:56: POC Glucose 141 H 03/11/25 06:05: WBC 10.2, RBC 3.60 L, Hgb 7.6 L, Hct 28.3 L, MCV 78.6 L, MCH 21.1 L, MCHC 26.9 L, RDW 18.6 H, Plt Count 348, MPV 9.6, Neut % (Auto) 72.1, Lymph % (Auto) 18.6, [place] % (Auto) 5.6, Eos % (Auto) 2.5, Baso % (Auto) 0.3, Neut # (Auto) 7.4, Lymph # (Auto) 1.9, [place] # (Auto) 0.6, Eos # (Auto) 0.3, Baso # (Auto) 0.0, Sodium 135 L, Potassium 4.4, Chloride 98, Carbon Dioxide 30, Anion Gap 11.4, BUN 17, Creatinine 1.00 D, Estimated Creat Clear 86, Estimated GFR 57 L, Est GFR ( Amer) 69 D, Glucose 128 H, Calcium 8.6, Magnesium 1.8, Total Bilirubin 0.2, AST 22, ALT 9 L, Alkaline Phosphatase 97, Total Protein 6.6, Albumin 3.5, Globulin 3.1, Albumin/Globulin Ratio 1.1 03/11/25 10:50: POC Glucose 147 H I & O for Last 24 hours: Intake & Output 03/08/25 03/09/25 03/10/25 03/11/25 23:59 23:59 23:59 23:59 Intake Total 900 / 1800 1500 / 1500 Output Total 2100 / 3500 3850 / 3850 Balance -1200 / -1700 -2350 / -2350 Weight 200.941 kg 190.565 kg Microbiology Reports for the Last 24 Hours: Microbiology 03/10/25 11:08 Urine,Clean Catch Urine Culture - Preliminary Gram Negative Rods Constitutional Constitutional: no acute distress *Routine HEENT Exam Head: Present normocephalic Eye: Present EOMI and PERRL ENT: Present mucous membranes moist *Routine Neck Exam Neck: Present supple; Absent lymphadenopathy *Routine Respiratory Exam Respiratory: Present CTA bilaterally *Routine Cardiovascular Exam Cardiovascular: Present RRR *Routine Abdominal Exam Abdominal: Present soft and normoactive bowel sounds; Absent tenderness *Routine Extremities Exam Extremities: Absent cyanosis, clubbing or edema *Routine Skin Exam Skin: Present warm; Absent rash *Routine Neurological Exam Neurological: Present alert and oriented X3 Results Data Completed and Pending Labs on day of discharge: Labs from last 24 hours 03/11/25 03/11/25 03/11/25 10:50 06:05 05:56 WBC 10.2 RBC 3.60 L Hgb 7.6 L Hct 28.3 L MCV 78.6 L MCH 21.1 L MCHC 26.9 L RDW 18.6 H Plt Count 348 MPV 9.6 Neut % (Auto) 72.1 Lymph % (Auto) 18.6 [place] % (Auto) 5.6 Eos % (Auto) 2.5 Baso % (Auto) 0.3 Neut # (Auto) 7.4 Lymph # (Auto) 1.9 [place] # (Auto) 0.6 Eos # (Auto) 0.3 Baso # (Auto) 0.0 Sodium 135 L Potassium 4.4 Chloride 98 Carbon Dioxide 30 Anion Gap 11.4 BUN 17 Creatinine 1.00 D Estimated Creat Clear 86 Estimated GFR 57 L Est GFR ( Amer) 69 D Glucose 128 H POC Glucose 147 H 141 H Hemoglobin A1c Calcium 8.6 Magnesium 1.8 Total Bilirubin 0.2 AST 22 ALT 9 L Alkaline Phosphatase 97 Troponin I Total Protein 6.6 Albumin 3.5 Globulin 3.1 Albumin/Globulin Ratio 1.1 TSH Urine Color Urine Appearance Urine pH Ur Specific [place] Urine Protein Urine Glucose (UA) Urine Ketones Urine Blood Urine Nitrate Urine Bilirubin Urine Urobilinogen Ur Leukocyte Esterase Urine RBC Urine WBC Ur Squamous Epith Cells Urine Bacteria Chlamy pneumoniae PCR Adenovirus (PCR) B. pertussis DNA (PCR) Coronavirus OC43 (PCR) Coronavirus HKU1 (PCR) Coronavirus 229E (PCR) SARS-CoV-2 (PCR) Coronavirus NL63 (PCR) Human Metapneumovir PCR Influenza A (H1) PCR Influ A (H1N1/09) PCR Influenza A (H3) PCR Influenza Type A (PCR) Influenza Type B (PCR) M. pneumoniae (PCR) Parainfluenza 1 (PCR) Parainfluenza 2 (PCR) Parainfluenza 3 (PCR) Parainfluenza 4 (PCR) RSV (PCR) Entero/Rhino (PCR) 03/10/25 03/10/25 03/10/25 19:53 16:37 13:09 WBC RBC Hgb Hct MCV MCH MCHC RDW Plt Count MPV Neut % (Auto) Lymph % (Auto) [place] % (Auto) Eos % (Auto) Baso % (Auto) Neut # (Auto) Lymph # (Auto) [place] # (Auto) Eos # (Auto) Baso # (Auto) Sodium Potassium Chloride Carbon Dioxide Anion Gap BUN Creatinine Estimated Creat Clear Estimated GFR Est GFR ( Amer) Glucose POC Glucose 129 H 142 H Hemoglobin A1c Calcium Magnesium Total Bilirubin AST ALT Alkaline Phosphatase Troponin I Total Protein Albumin Globulin Albumin/Globulin Ratio TSH Urine Color Urine Appearance Urine pH Ur Specific [place] Urine Protein Urine Glucose (UA) Urine Ketones Urine Blood Urine Nitrate Urine Bilirubin Urine Urobilinogen Ur Leukocyte Esterase Urine RBC Urine WBC Ur Squamous Epith Cells Urine Bacteria Chlamy pneumoniae PCR Not detected Adenovirus (PCR) Not detected B. pertussis DNA (PCR) Not detected Coronavirus OC43 (PCR) Not detected Coronavirus HKU1 (PCR) Not detected Coronavirus 229E (PCR) Not detected SARS-CoV-2 (PCR) Not detected Coronavirus NL63 (PCR) Not detected Human Metapneumovir PCR Not detected Influenza A (H1) PCR Not detected Influ A (H1N1/09) PCR Not detected Influenza A (H3) PCR Not detected Influenza Type A (PCR) Not detected Influenza Type B (PCR) Not detected M. pneumoniae (PCR) Not detected Parainfluenza 1 (PCR) Not detected Parainfluenza 2 (PCR) Not detected Parainfluenza 3 (PCR) Not detected Parainfluenza 4 (PCR) Not detected RSV (PCR) Not detected Entero/Rhino (PCR) Not detected 03/10/25 03/10/25 03/10/25 12:14 11:08 08:25 WBC RBC Hgb Hct MCV MCH MCHC RDW Plt Count MPV Neut % (Auto) Lymph % (Auto) [place] % (Auto) Eos % (Auto) Baso % (Auto) Neut # (Auto) Lymph # (Auto) [place] # (Auto) Eos # (Auto) Baso # (Auto) Sodium Potassium Chloride Carbon Dioxide Anion Gap BUN Creatinine Estimated Creat Clear Estimated GFR Est GFR ( Amer) Glucose POC Glucose Hemoglobin A1c 7.3 H Calcium Magnesium Total Bilirubin AST ALT Alkaline Phosphatase Troponin I < 0.01 Total Protein Albumin Globulin Albumin/Globulin Ratio TSH 8.02 H Urine Color Yellow Urine Appearance Clear Urine pH 6.5 Ur Specific [place] <= 1.005 Urine Protein Negative Urine Glucose (UA) Negative Urine Ketones Negative Urine Blood 3+ A Urine Nitrate Negative Urine Bilirubin Negative Urine Urobilinogen 0.2 Ur Leukocyte Esterase 1+ A Urine RBC 20-50 Urine WBC Occasional Ur Squamous Epith Cells 3-5 Urine Bacteria 1+ Chlamy pneumoniae PCR Adenovirus (PCR) B. pertussis DNA (PCR) Coronavirus OC43 (PCR) Coronavirus HKU1 (PCR) Coronavirus 229E (PCR) SARS-CoV-2 (PCR) Coronavirus NL63 (PCR) Human Metapneumovir PCR Influenza A (H1) PCR Influ A (H1N1/09) PCR Influenza A (H3) PCR Influenza Type A (PCR) Influenza Type B (PCR) M. pneumoniae (PCR) Parainfluenza 1 (PCR) Parainfluenza 2 (PCR) Parainfluenza 3 (PCR) Parainfluenza 4 (PCR) RSV (PCR) Entero/Rhino (PCR) Preliminary micro results at discharge 03/10/25 11:08 Urine Culture - Preliminary Urine,Clean Catch Gram Negative Rods DS: Diagnosis Discharge Diagnosis (1) COPD exacerbation: Status: Acute Code(s): J44.1 - Chronic obstructive pulmonary disease with (acute) exacerbation (2) (HFpEF) heart failure with preserved ejection fraction: Status: Acute Code(s): I50.30 - Unspecified diastolic (congestive) heart failure Qualifiers: Heart failure chronicity: unspecified Qualified Code(s): I50.30 - Unspecified diastolic (congestive) heart failure (3) Morbid obesity with body mass index (BMI) greater than or equal to 70 in adult: Status: Acute Code(s): E66.01 - Morbid (severe) obesity due to excess calories; Z68.45 - Body mass index [BMI] 70 or greater, adult (4) Volume overload: Status: Acute Code(s): E87.70 - Fluid overload, unspecified Qualifiers: Hypervolemia type: unspecified Qualified Code(s): E87.70 - Fluid overload, unspecified (5) Obesity hypoventilation syndrome: Status: Acute Code(s): E66.2 - Morbid (severe) obesity with alveolar hypoventilation (6) Hypothyroid: Status: Acute Code(s): E03.9 - Hypothyroidism, unspecified Qualifiers: Hypothyroidism type: unspecified Qualified Code(s): E03.9 - Hypothyroidism, unspecified (7) Type 2 diabetes mellitus: Status: Acute Code(s): E11.9 - Type 2 diabetes mellitus without complications Qualifiers: Diabetes mellitus predator control trapper insulin use: without senior living use Diabetes mellitus complication status: without complication Qualified Code(s): E11.9 - Type 2 diabetes mellitus without complications (8) Depression: Status: Acute Code(s): F32.A - Depression, unspecified Qualifiers: Depression Type: unspecified Qualified Code(s): F32.A - Depression, unspecified (9) Pulmonary hypertension: Status: Acute Code(s): I27.20 - Pulmonary hypertension, unspecified (10) HTN (hypertension): Status: Acute Code(s): I10 - Essential (primary) hypertension Qualifiers: Hypertension type: unspecified Qualified Code(s): I10 - Essential (primary) hypertension (11) COPD (chronic obstructive pulmonary disease): Status: Acute Code(s): J44.9 - Chronic obstructive pulmonary disease, unspecified Qualifiers: COPD type: unspecified COPD Qualified Code(s): J44.9 - Chronic obstructive pulmonary disease, unspecified Meds Home Medications and Allergies Home Medications ?Medication ?Instructions ?Recorded ?Confirmed ?Type calcium carbonate (Calcium 600) 600 mg PO DAILY 10/03/23 03/10/25 History cholecalciferol (vitamin D3) 1,250 1,250 mcg PO WEEKLY #12 caps 05/26/24 03/10/25 Rx mcg (50,000 unit) capsule fluticasone fur. 100 mcg-umeclid 1 inh inhalation DAILY 09/24/24 03/10/25 History 62.5 mcg-vilant 25 mcg inhalat.powder (Trelegy Ellipta) evolocumab 140 mg/mL subcutaneous 140 mg SQ Q2W #2 mL 11/24/24 03/10/25 Rx pen injector (Meli Dowling) bupropion HCl 200 mg tablet,12 hr 400 mg PO DAILY 12/02/24 03/10/25 History sustained-release metformin 500 mg tablet 500 mg PO BIDWMEAL 12/02/24 03/10/25 History albuterol sulfate 90 mcg/actuation 2 puff inhalation Q4HP PRN 12/07/24 03/10/25 History aerosol inhaler Shortness Of Breath spironolactone 100 mg tablet 100 mg PO DAILY #90 tabs 12/23/24 03/10/25 Rx ropinirole 4 mg tablet 4 mg PO DAILY 12/25/24 03/10/25 History aspirin 81 mg tablet,delayed 81 mg PO DAILY 03/10/25 03/10/25 History release atorvastatin 40 mg tablet 40 mg PO HS 03/10/25 03/10/25 History cyanocobalamin (vitamin B-12) 1,000 mcg PO DAILY 03/10/25 03/10/25 History 1,000 mcg tablet ipratropium 0.5 mg-albuterol 3 mg 3 ml inhalation QIDP PRN Shortness 03/10/25 03/10/25 History (2.5 mg base)/3 mL nebulization Of Breath soln levothyroxine 150 mcg tablet 300 mcg PO DAILY 03/10/25 03/10/25 History metolazone 5 mg tablet 5 mg PO BID 03/10/25 03/10/25 History metoprolol tartrate 25 mg tablet 12.5 mg PO BID 03/10/25 03/10/25 History midodrine 10 mg tablet 10 mg PO TID 03/10/25 03/10/25 History ondansetron 4 mg disintegrating 4 mg PO Q8HP PRN Nausea And 03/10/25 03/10/25 History tablet Vomiting oxybutynin chloride 5 mg tablet 5 mg PO BID 03/10/25 03/10/25 History semaglutide 0.25 mg or 0.5 mg (2 0.5 mg SQ WEEKLY 03/10/25 03/10/25 History mg/3 mL) subcutaneous pen injector (Ozempic) trazodone 150 mg tablet 300 mg PO HS 03/10/25 03/10/25 History cefuroxime axetil 500 mg tablet 500 mg PO Q12H #10 tabs 03/11/25 Rx torsemide 20 mg tablet 40 mg (2 x 20 mg) PO TID 30 days 03/11/25 03/10/25 Rx #180 tabs New Prescriptions to Start Prescriptions: cefuroxime axetil [place] Allergies Allergy/AdvReac Type Severity Reaction Status Date / Time adhesive tape (ADHESIVE TAPE) Allergy Unknown Blister Verified 11/22/24 14:36 hydromorphone (From DILAUDID) Allergy Unknown Hypotension Verified 11/22/24 14:36 nickel (NICKEL) Allergy Unknown Blister Verified 11/22/24 14:36 Discharge Plan Disposition Patient Disposition: Home, Self-Care Condition: Good Follow up Plan Follow up with: Vahid Garcia DO [Primary Care Provider, [facility]] - 03/21/25 10:00 am Prescriptions/Medication Reconciliation: New cefuroxime axetil 500 mg tablet 500 mg PO Q12H Qty: 10 0RF Continued cholecalciferol (vitamin D3) 1,250 mcg (50,000 unit) capsule 1,250 mcg PO WEEKLY Qty: 12 3RF Repatha SureClick 140 mg/mL pen injector 140 mg SQ Q2W Qty: 2 5RF calcium carbonate [Calcium 600] 600 mg calcium (1,500 mg) Tablet 600 mg PO DAILY metformin 500 mg tablet 500 mg PO BIDWMEAL bupropion HCl 200 mg tablet sustained-release 12 hr 400 mg PO DAILY metoprolol tartrate 25 mg tablet 12.5 mg PO BID atorvastatin 40 mg tablet 40 mg PO HS ipratropium-albuterol 0.5 mg-3 mg(2.5 mg base)/3 mL solution for nebulization 3 ml inhalation QIDP PRN (Reason: Shortness Of Breath) metolazone 5 mg tablet 5 mg PO BID cyanocobalamin (vitamin B-12) 1,000 mcg tablet 1,000 mcg PO DAILY aspirin 81 mg tablet,delayed release (DR/EC) 81 mg PO DAILY trazodone 150 mg tablet 300 mg PO HS levothyroxine 150 mcg tablet 300 mcg PO DAILY oxybutynin chloride 5 mg tablet 5 mg PO BID ondansetron 4 mg tablet,disintegrating 4 mg PO Q8HP PRN (Reason: Nausea And Vomiting) Ozempic 0.25 mg or 0.5 mg (2 mg/3 mL) pen injector 0.5 mg SQ WEEKLY midodrine 10 mg tablet 10 mg PO TID Patient Comments: TAKE ONE TABLET BY MOUTH THREE TIMES DAILY Trelegy Ellipta 100-62.5-25 mcg blister with device 1 inh INHALATION DAILY Patient Comments: INHALE 1 PUFF BY MOUTH EVERY DAY --RINSE MOUTH AFTER USE-- albuterol sulfate 90 mcg/actuation HFA aerosol inhaler 2 puff inhalation Q4HP PRN (Reason: Shortness Of Breath) spironolactone 100 mg tablet 100 mg PO DAILY Qty: 90 1RF ropinirole 4 mg tablet 4 mg PO DAILY Changed torsemide 20 mg tablet 40 mg PO TID 30 Days Qty: 180 0RF Problem Reconciliation Problems Reviewed?: Yes Patient Discharge Instructions ACTIVITY: Continue current activity DIET: continue same diet Patient Instructions: DI for Urinary Tract Infection (UTI), Stop Light COPD Print Language: Welsh Providers Primary Care Provider: Vahid Garcia Admnayla Provider: Hernan Barros Attending Provider: Hernan Barros
--- NOTE | 2025-03-13 09:31 | PC.NURSE ---
pts final urine culture results forwarded to the hospitalist as she was admitted.
--- NOTE | 2025-03-13 10:32 | SW/DCPLANNER ---
Spoke with patient on the phone. Patient stated that she is doing well. Patient stated that she is aware of her upcoming appointment. Patient stated that she was able to get her new medicine picked up. Patient stated that she has no concerns or questions at this time. Lore Venegas
== END 2025-03-11 13:59 | disposition home or self-care (01) ==
LOC: ER 08:56 → 2ND 12:01
PROVIDERS: Admitting Provider Internal Medicine Adolescent Medicine; Emergency Provider Student in an Organized Health Care Education/Training Program; PCP Internal Medicine; Visit Provider Internal Medicine Adolescent Medicine
DX: I11.0 Hypertensive heart disease with heart failure (principal); I50.33 Acute on chronic diastolic (congestive) heart failure; J44.1 Chronic obstructive pulmonary disease with (acute) exacerbation; E87.70 Fluid overload, unspecified; E66.2 Morbid (severe) obesity with alveolar hypoventilation; E03.9 Hypothyroidism, unspecified; E11.9 Type 2 diabetes mellitus without complications; F32.A Depression, unspecified; I27.20 Pulmonary hypertension, unspecified; I44.0 Atrioventricular block, first degree; I44.1 Atrioventricular block, second degree; N32.81 Overactive bladder; J81.1 Chronic pulmonary edema; G25.81 Restless legs syndrome; D64.9 Anemia, unspecified; J98.11 Atelectasis; F41.9 Anxiety disorder, unspecified; N39.0 Urinary tract infection, site not specified; Z68.45 Body mass index [BMI] 70 or greater, adult; Z95.0 Presence of cardiac pacemaker; Z91.048 Other nonmedicinal substance allergy status; Z88.5 Allergy status to narcotic agent; Z86.73 Personal history of transient ischemic attack (TIA), and cerebral infarction without residual deficits; Z82.49 Family history of ischemic heart disease and other diseases of the circulatory system; Z87.891 Personal history of nicotine dependence; Z79.84 Long term (current) use of oral hypoglycemic drugs; Z79.890 Hormone replacement therapy; Z79.899 Other long term (current) drug therapy; Z79.85 Long-term (current) use of injectable non-insulin antidiabetic drugs
CPT/HCPCS: 0223U; 36415; 71045; 71275; 80053; 81001; 82803; 82962; 83036; 83735; 83880; 84443; 84484; 85007; 85014; 85018; 85025; 85048; 85049; 86140; 87086; 87088; 87186; 87636; 93005; 94640; 94761; 96365; 96366; 96372; 96374; 96375; 96376; 99285; G0378; J0696; J1650; J1938; J1939; Q9967

== ENCOUNTER 2025-04-28 15:47 | Emergency (ER) | payer MEDICARE, OTHER, SELFPAY ==
[2025-04-28] VITALS (7 sets, daily range): BP systolic 127–148; BP diastolic 34–63; PULSE 78–89; RESP 16–20; TEMP 36.7; O2SAT 95–100; BMI 75.1
--- NOTE | 2025-04-28 16:45 | ED_ITS ---
<Statement entered by Thad Adams DO - 04/29/25 01:15> I was consulted by the DYLON, and we discussed the complexity of problems being addressed. I approved the treatment and management plan for this patient's care in the emergency department, thus performing a substantive portion of the medical decision making. Thad Adams DO Discharge Plan Disposition Patient Disposition: Home, Self-Care Condition: Good Prescriptions Prescriptions: No Action chlorhexidine gluconate 0.12 % mouthwash PO Patient Comments: FILL SUPPLIED CUP (1/2 OUNCE); SWISH IN MOUTH FOR 30 SECONDS TWICE DAILY (AFTER BREAKFAST & BEFORE BEDTIME). SWISH THEN EXPEL REMAINDER OR USE DIRECTED. DO not swallow metolazone 5 mg tablet 5 mg PO BID Qty: 28 0RF cholecalciferol (vitamin D3) 1,250 mcg (50,000 unit) capsule 1,250 mcg PO WEEKLY Qty: 12 3RF Repatha SureClick 140 mg/mL pen injector 140 mg SQ Q2W Qty: 2 5RF torsemide 20 mg tablet See Rx Instructions .ROUTE .COMPLEX Qty: 180 3RF Dose Instruction: TAKE TWO TABLETS BY MOUTH THREE TIMES DAILY Rx Instructions: TAKE TWO TABLETS BY MOUTH THREE TIMES DAILY Ozempic 1 mg/dose (4 mg/3 mL) pen injector See Rx Instructions .ROUTE .COMPLEX Qty: 3 0RF Dose Instruction: INJECT 1 MG SUBCUTANEOUSLY ONCE A WEEK Rx Instructions: INJECT 1 MG SUBCUTANEOUSLY ONCE A WEEK pregabalin 75 mg capsule 75 mg PO BID Qty: 60 1RF (DME) lancets [Accu-Chek Softclix Lancets] Misc See Rx Instructions .ROUTE .COMPLEX Qty: 200 3RF Dose Instruction: USE TO test blood sugar THREE TIMES DAILY Rx Instructions: USE TO test blood sugar THREE TIMES DAILY ropinirole 4 mg tablet See Rx Instructions .ROUTE .COMPLEX Qty: 90 3RF Dose Instruction: TAKE ONE TABLET BY MOUTH EVERY DAY Rx Instructions: TAKE ONE TABLET BY MOUTH EVERY DAY calcium carbonate [Calcium 600] 600 mg calcium (1,500 mg) Tablet 600 mg PO DAILY metformin 500 mg tablet 500 mg PO BIDWMEAL bupropion HCl 200 mg tablet sustained-release 12 hr 400 mg PO DAILY metoprolol tartrate 25 mg tablet 12.5 mg PO BID atorvastatin 40 mg tablet 40 mg PO HS ipratropium-albuterol 0.5 mg-3 mg(2.5 mg base)/3 mL solution for nebulization 3 ml inhalation QIDP PRN (Reason: Shortness Of Breath) cyanocobalamin (vitamin B-12) 1,000 mcg tablet 1,000 mcg PO DAILY aspirin 81 mg tablet,delayed release (DR/EC) 81 mg PO DAILY trazodone 150 mg tablet 300 mg PO HS levothyroxine 150 mcg tablet 300 mcg PO DAILY oxybutynin chloride 5 mg tablet 5 mg PO BID ondansetron 4 mg tablet,disintegrating 4 mg PO Q8HP PRN (Reason: Nausea And Vomiting) midodrine 10 mg tablet 10 mg PO TID Patient Comments: TAKE ONE TABLET BY MOUTH THREE TIMES DAILY cefuroxime axetil 500 mg tablet 500 mg PO Q12H Qty: 10 0RF Trelegy Ellipta 100-62.5-25 mcg blister with device 1 inh INHALATION DAILY Patient Comments: INHALE 1 PUFF BY MOUTH EVERY DAY --RINSE MOUTH AFTER USE-- albuterol sulfate 90 mcg/actuation HFA aerosol inhaler 2 puff inhalation Q4HP PRN (Reason: Shortness Of Breath) spironolactone 100 mg tablet 100 mg PO DAILY Qty: 90 1RF Referrals Follow up/Referrals: Provider,Referral, MD [Referring, Medical] - See instructions Activity Restrictions/Add. Instructions Additional Instructions/Restrictions: Please return to the emergency department with any worsening signs or symptoms. Please follow-up with your PCP and other providers in the upcoming days/weeks. Please make sure you are ambulating at home as tolerated. Continue to take all your at home medications as prescribed. Clinical Impressions Clinical Impression: Chronic dyspnea Instructions Patient Instructions: DI for Shortness of Breath Print Language Print Language: Bahraini Discharge ED Provider: Thad Adams [facility] <KEVON Coronado - Last Filed: 04/28/25 19:13> General Chief Complaint: Shortness of Breath/Dyspnea Stated Complaint: SOB Time Seen by Provider: 04/28/25 16:31 Mode of Arrival: EMS Source of Information: Patient and Medical Record Description of Symptoms (Recalled from ER Triage Doc. by RN): pt presents to ED with c/o shortness of air for 3 days. pt wears 2L NC baseline, bumped up to 4L NC per EMS. pt reports no cp, n/v/d, abdominal pain. History of Present Illness HPI narrative: 54-year-old female presents to the emergency department via EMS for 2 to 3-day history of shortness of air, chest tightness, patient states feels like you are somebody sitting on my chest . Patient denies any fever chills does admit to some cough, for the last 2 to 3 days, nonproductive, patient is currently on 2 L nasal cannula baseline, was apparently increased to 4 L nasal cannula per EMS, however now is back down to 2 L nasal cannula per my examination the bedside. Patient denies any abdominal pain nausea vomiting constipation diarrhea no urinary type symptomatology, patient states that she has been laying in her bed for the last 5 days, patient states my depression is acting up . Patient actively denies any SI or HI. Patient is a former smoker, denies any alcohol or drug use, other past medical history is consistent with COPD, implantable pacemaker, morbid obesity, hypothyroidism, hyperlipidemia, obesity hypoventilation syndrome, diastolic heart failure, MDD/SANTA, pulmonary hypertension. Initial triage vitals are unremarkable. Of note patient is concerned I have some fluid on me . Please note that above description of symptoms, in this electronic medical record under categorization of recalled from ER triage doctor by RN are reflective of an initial nursing assessment, however, is not reflective of my full history and physical exam that was personally taken and clarified. Consequentially, this preceding description of symptoms, which may include the patient's categorized chief complaint in the EMR, do not reflect my personal clinical impression, and the ultimate description of history of present illness and patient stated complaints should be deferred to this section of the note. Unless stated otherwise or congruent with this section of the note, additional signs, symptoms, or incongruence should be interpreted as inaccurate with my clinical impression. Onset (ago): day(s) Related Data Home Medications ?Medication ?Instructions ?Recorded ?Confirmed calcium carbonate (Calcium 600) 600 mg PO DAILY 03/31/25 fluticasone fur. 100 mcg-umeclid 1 inh inhalation LEONARDO Y 09/24/24 03/31/25 62.5 mcg-vilant 25 mcg inhalat.powder (Trelegy Ellipta) bupropion HCl 200 mg tablet,12 hr 400 mg PO DAILY 11/1703/31/25 sustained-release metformin 500 mg tablet 500 mg PO BIDWMEAL 12/02/24 03/31/25 albuterol sulfate 90 mcg/actuation 2 puff inhalation Q 4HP PRN 12/07/24 03/31/25 aerosol inhaler Shortness Of Breath aspirin 81 mg tablet,delayed 81 mg PO DAILY 03/10/25 0 03/31/25 release atorvastatin 40 mg tablet 40 mg PO HS 03/10/25 5 cyanocobalamin (vitamin B-12) 1,000 mcg PO DAILY 03/1003/31/25 1,000 mcg tablet ipratropium 0.5 mg-albuterol 3 mg 3 ml inhalation QIDP PRN Shortness 03/10/25 03/31/25 (2.5 mg base)/3 mL nebulization Of Breath soln levothyroxine 150 mcg tablet 300 mcg PO DAILY 03/10/25 03/31/25 metoprolol tartrate 25 mg tablet 12.5 mg PO BID 03/31/25 midodrine 10 mg tablet 10 mg PO TID 03/10/25 ondansetron 4 mg disintegrating 4 mg PO Q8HP PRN Nause a And 03/10/25 03/31/25 tablet Vomiting oxybutynin chloride 5 mg tablet 5 mg PO BID 03/10/25 0 03/31/25 trazodone 150 mg tablet 300 mg PO HS 03/10/25 chlorhexidine gluconate 0.12 % PO 03/21/25 03/31/25 mouthwash Previous Rx's ?Medication ?Instructions ?Recorded cholecalciferol (vitamin D3) 1,250 1,250 mcg PO WEEKLY #12 caps 05/26/24 mcg (50,000 unit) capsule evolocumab 140 mg/mL subcutaneous 140 mg SQ Q2W #2 mL 11/24/24 pen injector (Meli Dowling) spironolactone 100 mg tablet 100 mg PO DAILY #90 tabs 12/23/24 cefuroxime axetil 500 mg tablet 500 mg PO Q12H #10 tab s 03/11/25 metolazone 5 mg tablet 5 mg PO BID #28 tabs 5 pregabalin 75 mg capsule 75 mg PO BID #60 caps semaglutide 1 mg/dose (4 mg/3 mL) See Rx Instructions .Route 04/19/25 subcutaneous pen injector (Ozempic) .COMPLEX #3 mL torsemide 20 mg tablet See Rx Instructions .Route 1 .COMPLEX #180 tabs lancets (Accu-Chek Softclix #200 ea 04/24/25 Lancets) ropinirole 4 mg tablet See Rx Instructions .Route 1 .COMPLEX #90 tabs Allergies Allergy/AdvReac Type Severity Reaction Status Date / Time adhesive tape (ADHESIVE TAPE) Allergy Unknown Blister Verified 03/31/25 13:02 hydromorphone (From DILAUDID) Allergy Unknown Hypotension Verified 03/31/25 13:02 nickel (NICKEL) Allergy Unknown Blister Verified 03/31/25 13:02 [facility] <KEVON Coronado - Last Filed: 04/28/25 19:13> [facility] Disclaimer: The information contained in this section may have been updated after the patient was seen, as this information can be updated by other users. Medical History Pleural effusion Aphthous ulcer of mouth Slurred speech Transaminitis Elevated troponin Elevated liver enzymes GWEN (acute kidney injury) Bradycardia Morbid obesity with body mass index (BMI) greater than or equal to 70 in adult Postmenopausal bleeding HLD (hyperlipidemia) Obesity Abdominal pain UTI (urinary tract infection) Hospital discharge follow-up Establishing care with new doctor, encounter for Restless leg Glaucoma Arthritis of both knees Urinary incontinence Unspecified asthma, uncomplicated Tear of meniscus of knee Pre-diabetes Diastolic CHF, acute on chronic Pulmonary hypertension Elevated left ventricular end-diastolic pressure (LVEDP) Asthma exacerbation Sleep apnea History of COVID-19 COPD (chronic obstructive pulmonary disease) Asthma Abscess of groin, right Acute exacerbation of chronic obstructive airways disease Left against medical advice Dependent on wheelchair Assistance needed for continence Incisional hernia Complex large recurrent abdominal wall hernia (essentially with loss of domain) and focal skin ulceration Lower leg pain Knee pain Vaginal bleeding Perimenopausal Cellulitis Hypothyroidism Dizziness Chest pain Sinusitis Tobacco abuse counseling Tobacco abuse HONEY (obstructive sleep apnea) Ventral hernia Dyspnea Depression Pharyngitis due to Streptococcus species Epigastric pain Gastritis Strep throat HTN (hypertension) Hypothyroidism (acquired) TIA (transient ischemic attack) COPD exacerbation Paresthesias Shortness of breath Acute bronchitis Tobacco abuse COPD (chronic obstructive pulmonary disease) Infiltrate of lung present on chest x-ray Atelectasis of right lung Cough Upper respiratory infection Surgical History History of lateral meniscus repair of right knee Pt is unsure if it was lateral or medial H/O tubal ligation Hx of cholecystectomy H/O hernia repair History of colon resection Family History Mother Hypertension Diabetes Father Cancer Social History Smoking Status: Never smoker years smoked: 38 smoking status stop date: 3 months ago quit status: has quit before second hand exposure: Yes alcohol intake: never substance use type: denies use current occupational status: unemployed Travel in the last 8 weeks?: None household members: family and children housing: other lives independently: No marital status: legally number of children: 4 education level: other caffeine: Yes do you feel safe at home: Yes victim of physical abuse: No victim of emotional abuse: No victim of sexual abuse: No Have you lived/traveled outside [place] in past 30 days?: No Contact w/someone who lives/traveled outside US past 30 days?: No Exposure to someone with infectious disease in past 14 days?: No Do you have a fever (greater than 100.4 F or 38 C)?: No Have you tested positive for COVID-19?: No Exposed to someone with COVID-19 in past 14 days?: No Do you have a sore throat?: No Do you have a cough?: No Do you have any weakness?: No Do you have any diarrhea?: No Are you experiencing any unusual bleeding?: No Do you have any muscle aches/pain?: No Do you have any abdominal pain?: No Are you experiencing loss of taste or smell?: No Other Medical History Have you received the Flu Vaccine for this season: No Have you received the Pneumonia Vaccine: No <KEVON Coronado - Last Filed: 04/28/25 19:13> ROS Obtained: Yes All systems reviewed & no additional complaints except as documented Physical Exam <KEVON Coronado - Last Filed: 04/28/25 19:13> General General appearance: alert and in no apparent distress Head Head exam: atraumatic and normocephalic Eye Eye exam: Present PERRL and EOMI ENT ENT exam: Present mucous membranes moist Neck Neck exam: Present normal inspection Chest Chest inspection: Present normal inspection and symmetric chest wall rise Respiratory Respiratory exam: Present other (Mild crackles heard at bilateral lung field); Absent normal lung sounds bilaterally or respiratory distress Cardiovascular Cardiovascular exam: Present regular rate and normal rhythm Abdominal Exam Abdominal exam: Present soft and hernia; Absent tenderness, guarding, rebound or rigidity Extremities Exam Extremities exam: Present normal inspection Neurological Exam Neurological exam: Present alert and oriented X3 Psychiatric Psychiatric exam: Present normal affect Skin Skin exam: Present warm and dry HEART Score <KEVON Coronado - Last Filed: 04/28/25 19:13> HEART Score HEART Score assessment performed?: Yes HEART Score: 2 <Thad Adams DO - Last Filed: 04/29/25 01:16> HEART Score History (anamnesis): Slightly suspicious ECG: Non-specific disturbance Age: 45-65 years Risk factors: 3 or more risk factors Troponin: </= normal limit HEART Score: 4 Critical Care <KEVON Coronado - Last Filed: 04/28/25 19:13> Critical Care Time Critical Care Time: No Medical Decision Making <KEVON Coronado - Last Filed: 04/28/25 19:13> Medical Records Medical records reviewed: Yes I reviewed the patient's medical records. Woodrow Inquiry Pt receiving controlled substance: No Woodrow was queried for this patient: No Vital Signs Vital Signs: 04/28/25 15:53 04/28/25 16:00 04/28/25 16:01 Temperature 98.0 F Temperature Source Oral Pulse Rate 85 Pulse Rate [Left Radial] 84 Respiratory Rate 16 Blood Pressure 127/55 L Blood Pressure [Right Arm] 142/63 H Blood Pressure Mean [Right Arm] 89 02 Sat by Pulse Oximetry 95 99 Oxygen Delivery Method Nasal Cannula Nasal Cannula Room Air Oxygen Flow Rate (LPM) 2 2 04/28/25 16:31 04/28/25 17:01 04/28/25 17:31 Temperature Temperature Source Pulse Rate 81 78 81 Pulse Rate [Left Radial] Respiratory Rate Blood Pressure 148/51 H 128/51 L 138/34 L Blood Pressure [Right Arm] Blood Pressure Mean [Right Arm] 02 Sat by Pulse Oximetry 99 98 98 Oxygen Delivery Method Room Air Nasal Cannula Nasal Cannula Oxygen Flow Rate (LPM) 2 2 04/28/25 18:00 04/28/25 19:14 Temperature 98.1 F Temperature Source Pulse Rate 89 78 Pulse Rate [Left Radial] Respiratory Rate 20 Blood Pressure 128/51 L Blood Pressure [Right Arm] Blood Pressure Mean [Right Arm] 02 Sat by Pulse Oximetry 100 Oxygen Delivery Method Nasal Cannula Room Air Oxygen Flow Rate (LPM) 2 Lab Data Lab results reviewed: Yes I reviewed the patient's lab results. Labs: Lab Results 04/28/25 15:27: WBC 9.8, RBC 3.80 L, Hgb 7.9 L, Hct 30.0 L, MCV 78.9 L, MCH 20.8 L, MCHC 26.3 L, RDW 19.5 H, Plt Count 396, MPV 10.1, Neut % (Auto) 71.8, Lymph % (Auto) 20.3, [place] % (Auto) 4.7, Eos % (Auto) 2.2, Baso % (Auto) 0.3, Neut # (Auto) 7.0, Lymph # (Auto) 2.0, [place] # (Auto) 0.5, Eos # (Auto) 0.2, Baso # (Auto) 0.0, PT 10.6, INR 0.95, Sodium 135 L, Potassium 4.5, Chloride 93 L, C arbon Dioxide 36 H, Anion Gap 10.5, BUN 14, Creatinine 0.80, Estimated Creat Clear 65, Estimated GFR 74, Est GFR ( Amer) 90, Glucose 185 H, Calcium 8.7, Magnesium 1.9, Total Bilirubin 0.4, AST 19, ALT 15, Alkaline Phosphatase 134 H, Troponin I < 0.01, NT-Pro-B Natriuret Pep 660 H, Total Protein 6.7, A lbumin 3.3 L, Globulin 3.4 H, Albumin/Globulin Ratio 1.0 L, Lipase 33 04/28/25 17:30: SARS-CoV-2 (PCR) Not detected, Influenza A Untype (PCR) Not detected, Influenza Type B (PCR) Not detected 04/28/25 17:36: VBG pH 7.35, VBG pCO2 59.9 H, VBG pO2 39.8, VBG HCO3 32.2 H, VBG Total CO2 34.0 H, VBG O2 Saturation 70.5 H, VBG Base Excess 6.5 H, VBG Lactic Acid 1.8 04/28/25 15:27 04/28/25 15:27 Response Orders (Tests/Meds): ED MEDICATIONS Discontinued Medications Generic Name Dose Route Start Last Admin Trade Name Freq PRN Reason Stop Dose Admin Iopamidol 70 ml 04/28/25 17:57 04/28/25 17:58 Iopamidol-370 (76%);100ml Bottle IV 04/28/25 17:58 70 ml ONCE ONE Administration Sodium Chloride 50 ml 04/28/25 17:57 04/28/25 17:58 0.9 % Sodium Chloride 50 Ml Vial IV 04/28/25 17:58 50 ml ONCE ONE Administration Sodium Chloride 10 ml 04/28/25 17:57 04/28/25 17:58 Sodium Chloride 0.9% 10ml Syr (Rad Only) IV 05/28/25 17:56 10 ml NEEDED PRN Administration Maintain IV Site ORDERS Category Date Time Status CT angio chest PE protocol Stat Cat Scan 04/28/25 16:52 Completed XR chest portable Stat Exams 04/28/25 16:52 Completed Complete Blood Count Auto Diff Stat Lab 04/28/25 15:27 Completed Comprehensive Metabolic Panel Stat Lab 04/28/25 15:27 Completed Lipase Stat Lab 04/28/25 15:27 Completed Magnesium Stat Lab 04/28/25 15:27 Completed NT Pro Brain Natriuretic Pep. Stat Lab 04/28/25 15:27 Completed PT INR [Prothrombin Time INR] Stat Lab 04/28/25 15:27 Completed Rapid PCR Covid and Flu A/B Stat Lab 04/28/25 17:30 Completed Troponin I Stat Lab 04/28/25 15:27 Completed VBG [Venous Blood Gas] Stat RT 04/28/25 17:36 Completed MDM Narrative Medical Decision Narrative: 54-year-old female presents to the emergency department with chest tightness chest pressure shortness of breath for the last 2 to 3 days, differential diagnose include but not limited to, COPD exacerbation, pleural effusion, pneumonia, cardiac arrhythmia, electrolyte disturbance, panic attack, anxiety reaction, CHF laceration, pulmonary edema among others. I discussed this patient's case with the attending physician Dr. Adams Will obtain basic laboratory studies, EKG, chest x-ray, lipase magnesium level proBNP PT/INR, rapid PCR COVID flu troponin will obtain CTA chest without contrast PE protocol. CBC is notable for anemia of a hemoglobin of 7.9, hematocrit is 30, MCV is elevated 78.9 otherwise unremarkable CBC Coags within normal limits CMP is notable for hypercapnia at 36, hypochloremia at 93, will obtain VBG. Initial troponin is within normal limits at less than 0.01, proBNP is mildly elevated at 660 otherwise unremarkable CMP VBG is noted for normal pH, pCO2 is elevated at 59.9, bicarb is elevated at 13.2, otherwise unremarkable VBG COVID-19 negative via PCR influenza negative via PCR I reviewed the patient's chest x-ray along the corresponding radiologic report, study is underpenetrated and technique further evaluation is recommended, moderate cardiomegaly questionable infiltrative changes noted within the left lung base I reviewed the patient's CTA chest with and without contrast PE protocol, no CT evidence for pulmonary embolism, focal discoid atelectasis within the left lateral lung no acute infiltrates. I discussed these results/recommendations with the patient at the bedside, patient is resting comfortably in the bed, she has not required any additional supplemental oxygen throughout her time in the emergency department, she has been hemodynamically stable throughout her time in the emergency department. Patient is cleared be discharged home to self-care. Patient voiced understanding, in agreement with the current treatment plan/discharge plan. Strict return precautions given. <Thad Adams DO - Last Filed: 04/29/25 01:16> Vital Signs Vital Signs: 04/28/25 15:53 04/28/25 16:00 04/28/25 16:01 Temperature 98.0 F Temperature Source Oral Pulse Rate 85 Pulse Rate [Left Radial] 84 Respiratory Rate 16 Blood Pressure 127/55 L Blood Pressure [Right Arm] 142/63 H Blood Pressure Mean [Right Arm] 89 02 Sat by Pulse Oximetry 95 99 Oxygen Delivery Method Nasal Cannula Nasal Cannula Room Air Oxygen Flow Rate (LPM) 2 2 04/28/25 16:31 04/28/25 17:01 04/28/25 17:31 Temperature Temperature Source Pulse Rate 81 78 81 Pulse Rate [Left Radial] Respiratory Rate Blood Pressure 148/51 H 128/51 L 138/34 L Blood Pressure [Right Arm] Blood Pressure Mean [Right Arm] 02 Sat by Pulse Oximetry 99 98 98 Oxygen Delivery Method Room Air Nasal Cannula Nasal Cannula Oxygen Flow Rate (LPM) 2 2 04/28/25 18:00 04/28/25 19:14 Temperature 98.1 F Temperature Source Pulse Rate 89 78 Pulse Rate [Left Radial] Respiratory Rate 20 Blood Pressure 128/51 L Blood Pressure [Right Arm] Blood Pressure Mean [Right Arm] 02 Sat by Pulse Oximetry 100 Oxygen Delivery Method Nasal Cannula Room Air Oxygen Flow Rate (LPM) 2 Lab Data Labs: Lab Results 04/28/25 15:27: WBC 9.8, RBC 3.80 L, Hgb 7.9 L, Hct 30.0 L, MCV 78.9 L, MCH 20.8 L, MCHC 26.3 L, RDW 19.5 H, Plt Count 396, MPV 10.1, Neut % (Auto) 71.8, Lymph % (Auto) 20.3, [place] % (Auto) 4.7, Eos % (Auto) 2.2, Baso % (Auto) 0.3, Neut # (Auto) 7.0, Lymph # (Auto) 2.0, [place] # (Auto) 0.5, Eos # (Auto) 0.2, Baso # (Auto) 0.0, PT 10.6, INR 0.95, Sodium 135 L, Potassium 4.5, Chloride 93 L, C arbon Dioxide 36 H, Anion Gap 10.5, BUN 14, Creatinine 0.80, Estimated Creat Clear 65, Estimated GFR 74, Est GFR ( Amer) 90, Glucose 185 H, Calcium 8.7, Magnesium 1.9, Total Bilirubin 0.4, AST 19, ALT 15, Alkaline Phosphatase 134 H, Troponin I < 0.01, NT-Pro-B Natriuret Pep 660 H, Total Protein 6.7, A lbumin 3.3 L, Globulin 3.4 H, Albumin/Globulin Ratio 1.0 L, Lipase 33 04/28/25 17:30: SARS-CoV-2 (PCR) Not detected, Influenza A Untype (PCR) Not detected, Influenza Type B (PCR) Not detected 04/28/25 17:36: VBG pH 7.35, VBG pCO2 59.9 H, VBG pO2 39.8, VBG HCO3 32.2 H, VBG Total CO2 34.0 H, VBG O2 Saturation 70.5 H, VBG Base Excess 6.5 H, VBG Lactic Acid 1.8 Response Orders (Tests/Meds): ED MEDICATIONS Discontinued Medications Generic Name Dose Route Start Last Admin Trade Name Freq PRN Reason Stop Dose Admin Iopamidol 70 ml 04/28/25 17:57 04/28/25 17:58 Iopamidol-370 (76%);100ml Bottle IV 04/28/25 17:58 70 ml ONCE ONE Administration Sodium Chloride 50 ml 04/28/25 17:57 04/28/25 17:58 0.9 % Sodium Chloride 50 Ml Vial IV 04/28/25 17:58 50 ml ONCE ONE Administration Sodium Chloride 10 ml 04/28/25 17:57 04/28/25 17:58 Sodium Chloride 0.9% 10ml Syr (Rad Only) IV 05/28/25 17:56 10 ml NEEDED PRN Administration Maintain IV Site ORDERS Category Date Time Status CT angio chest PE protocol Stat Cat Scan 04/28/25 16:52 Completed XR chest portable Stat Exams 04/28/25 16:52 Completed Complete Blood Count Auto Diff Stat Lab 04/28/25 15:27 Completed Comprehensive Metabolic Panel Stat Lab 04/28/25 15:27 Completed Lipase Stat Lab 04/28/25 15:27 Completed Magnesium Stat Lab 04/28/25 15:27 Completed NT Pro Brain Natriuretic Pep. Stat Lab 04/28/25 15:27 Completed PT INR [Prothrombin Time INR] Stat Lab 04/28/25 15:27 Completed Rapid PCR Covid and Flu A/B Stat Lab 04/28/25 17:30 Completed Troponin I Stat Lab 04/28/25 15:27 Completed VBG [Venous Blood Gas] Stat RT 04/28/25 17:36 Completed ECG Data Tracing #1: Attestation: I reviewed this ECG and interpreted as documented below: ECG Narrative: EKG personally interpreted by me demonstrates normal sinus rhythm at a rate of 81 bpm, left axis, no MD prolongation, narrow QRS, no QTc prolongation. No STEMI MDM Narrative Medical Decision Narrative: 54-year-old female presents to the emergency department with chest tightness chest pressure shortness of breath for the last 2 to 3 days, differential diagnose include but not limited to, COPD exacerbation, pleural effusion, pneumonia, cardiac arrhythmia, electrolyte disturbance, panic attack, anxiety reaction, CHF laceration, pulmonary edema among others. I discussed this patient's case with the attending physician Dr. Adams Will obtain basic laboratory studies, EKG, chest x-ray, lipase magnesium level proBNP PT/INR, rapid PCR COVID flu troponin will obtain CTA chest without contrast PE protocol. CBC is notable for anemia of a hemoglobin of 7.9, hematocrit is 30, MCV is elevated 78.9 otherwise unremarkable CBC Coags within normal limits CMP is notable for hypercapnia at 36, hypochloremia at 93, will obtain VBG. Initial troponin is within normal limits at less than 0.01, proBNP is mildly elevated at 660 otherwise unremarkable CMP VBG is noted for normal pH, pCO2 is elevated at 59.9, bicarb is elevated at 13.2, otherwise unremarkable VBG COVID-19 negative via PCR influenza negative via PCR I reviewed the patient's chest x-ray along the corresponding radiologic report, study is underpenetrated and technique further evaluation is recommended, moderate cardiomegaly questionable infiltrative changes noted within the left lung base I reviewed the patient's CTA chest with and without contrast PE protocol, no CT evidence for pulmonary embolism, focal discoid atelectasis within the left lateral lung no acute infiltrates. I discussed these results/recommendations with the patient at the bedside, patient is resting comfortably in the bed, she has not required any additional supplemental oxygen throughout her time in the emergency department, she has been hemodynamically stable throughout her time in the emergency department. Patient is cleared be discharged home to self-care. Patient voiced understanding, in agreement with the current treatment plan/discharge plan. Strict return precautions given. I was consulted by the DYLON, and we discussed the complexity of problems being addressed. I approved the treatment and management plan for this patient's care in the emergency department, thus performing a substantive portion of the medical decision making. Thad Adams, DO
--- NOTE | 2025-04-28 16:52 | CT_ITS ---
PROCEDURE INFORMATION: Exam: CTA Chest With Contrast Exam date and time: 04/28/2025 5:48 PM Age: 54 years old Clinical indication: Shortness of breath; Additional info: Shortness of air, chest tightness TECHNIQUE: Imaging protocol: Computed tomographic angiography of the chest with contrast. Exam focused on the arteries. 3D rendering (Not supervised by radiologist): MIP and/or 3D reconstructed images were created by the technologist. Radiation optimization: All CT scans at this facility use at least one of these dose optimization techniques: automated exposure control; mA and/or kV adjustment per patient size (includes targeted exams where dose is matched to clinical indication); or iterative reconstruction. Contrast material: ISOVUE; Contrast volume: 70 ml; Contrast route: INTRAVENOUS (IV); COMPARISON: CT ANGIO CHEST PE PROTOCOL 03/10/2025 10:25 AM FINDINGS: Pulmonary arteries: No CT evidence for pulmonary embolism. Aorta: Unremarkable. No aortic aneurysm. No aortic dissection. Lungs: Focal discoid atelectasis within the left lateral lung base. No acute infiltrates. Pleural spaces: Unremarkable. No pneumothorax. No pleural effusion. Heart: Unremarkable. No cardiomegaly. No pericardial effusion. Lymph nodes: Unremarkable. No enlarged lymph nodes. Bones/joints: Unremarkable. No acute fracture. Soft tissues: Unremarkable. IMPRESSION: 1. No CT evidence for pulmonary embolism. 2. Focal discoid atelectasis within the left lateral lung base. No acute infiltrates.
--- NOTE | 2025-04-28 16:52 | XR_ITS ---
PROCEDURE INFORMATION: Exam: XR Chest Exam date and time: 04/28/2025 5:54 PM Age: 54 years old Clinical indication: Shortness of breath; Additional info: Shortness of air chest tightness TECHNIQUE: Imaging protocol: Radiologic exam of the chest. Views: 1 view. Total images: 1 COMPARISON: CT ANGIO CHEST PE PROTOCOL 04/28/2025 5:48 PM FINDINGS: Tubes, catheters and devices: Left-sided pacemaker is in place. Lungs: Question infiltrative changes noted within the left lung base. Pleural spaces: No pleural effusion. No pneumothorax. Heart/Mediastinum: Heart demonstrates moderate diffuse enlargement. Bones/joints: Unremarkable. Other findings: Study is underpenetrated in technique. IMPRESSION: 1. Study is underpenetrated in technique. Further evaluation is recommended. 2. Moderate cardiomegaly. 3. Question infiltrative changes noted within the left lung base.
[2025-04-28 17:09] LABS: Hematocrit 30.0 % (37.0-47.0); Hemoglobin 7.9 g/dL (12.2-16.2); Immature Granulocytes % 0.7 %; Mean Corpuscular HGB Conc 26.3 g/dL (31.8-35.4); Mean Corpuscular Hemoglobin 20.8 pg (27.0-31.2); Mean Corpuscular Volume 78.9 fl (81-99); Nucleated Red Blood Cells % 0 %; Platelet Count 396 K/mm3 (142-424); Red Blood Count 3.80 M/mm3 (4.20-5.40); Red Cell Distribution Width-SD 55.5 fL; White Blood Count 9.8 K/mm3 (4.8-10.8)
[2025-04-28 17:15] LABS: Alanine Aminotransferase 15 U/L (12-78); Albumin Level 3.3 g/dl (3.5-5.0); Albumin/Globulin Ratio 1.0 (1.1-1.8); Alkaline Phosphatase 134 U/L (38-126); Anion Gap 10.5 mEq/L (5-15); Aspartate Amino Transferase 19 U/L (14-36); Bilirubin,Total 0.4 mg/dl (0.2-1.3); Blood Urea Nitrogen 14 mg/dl (7-17); Calcium 8.7 mg/dl (8.4-10.2); Carbon Dioxide 36 mmol/L (22.0-30.0); Chloride 93 mmol/L (98-107); Creatinine Clearance Estimated 65 mL/min (50-200); Creatinine,Serum 0.80 mg/dl (0.52-1.04); Estimated Glomerular Filt Rate 74 ml/min (>60); GFR (African American) 90 ML/MIN (>60); Globulin 3.4 g/dL (1.3-3.2); Glucose 185 mg/dl (74-100); INR 0.95 (0.9-1.1); Lipase 33 U/L (23-300); Magnesium 1.9 mg/dl (1.6-2.3); Potassium 4.5 mmoL/L (3.5-5.1); Prothrombin Time 10.6 seconds (10.1-12.5); Sodium 135 mmol/L (136-145); Total Protein,Serum 6.7 g/dl (6.3-8.2)
[2025-04-28 17:27] LABS: NT Pro Brain Natriuretic Pep. 660 pg/mL (0-125)
[2025-04-28 17:28] LABS: Troponin I < 0.01 ng/ml (0.00-0.034)
[2025-04-28 17:38] LABS: Lactate Venous 1.8 mmol/L (0.4-2.0); VBG HCO3 32.2 mmol/L (23-30); VBG PH 7.35 mmol/L (7.31-7.41); VBG PO2 39.8 mmol/L (28-40)
[2025-04-28 17:40] LABS: VBG PCO2 59.9 mmol/L (35-51)
[2025-04-28] MEDS: IOPAMIDOL-370 (76%);100ML BOTTLE 70 ML IV (17:58)
[2025-04-28] MEDS: SODIUM CHLORIDE 0.9% 10ML SYR (RAD ONLY) 10 ML IV (17:58)
[2025-04-28] MEDS: 0.9 % SODIUM CHLORIDE 50 ML VIAL IV (17:58)
--- NOTE | 2025-04-28 18:02 | ECG_ITS ---
APPROVED REPORT Exam: Resting ECG HR:81 bpm ECG Measurements Heart Rate 81 AXES CO 188 P 58 QRSd 116 QRS -45 QT 367 T 94 QTc 405 Conclusion Sinus rhythm Left axis Right bundle branch block T wave inversions in lead V1/V2 Electronically signed by : Thad Adams, 04/29/2025 01:32:27
[2025-04-28 18:33] LABS: Coronavirus 19, PCR Not Detected (NotDetected); Influenza A, PCR Not Detected (NotDetected); Influenza B, PCR Not Detected (NotDetected)
== END 2025-04-28 19:56 | disposition home or self-care (01) ==
PROVIDERS: Physician Assistant; Emergency Provider Student in an Organized Health Care Education/Training Program; PCP Internal Medicine
DX: R07.89 Other chest pain (principal); J44.9 Chronic obstructive pulmonary disease, unspecified; E66.01 Morbid (severe) obesity due to excess calories; I50.33 Acute on chronic diastolic (congestive) heart failure; I11.0 Hypertensive heart disease with heart failure; E78.5 Hyperlipidemia, unspecified; Z68.45 Body mass index [BMI] 70 or greater, adult; Z99.81 Dependence on supplemental oxygen; Z87.891 Personal history of nicotine dependence
CPT/HCPCS: 71045; 71275; 80053; 82803; 83690; 83735; 83880; 84484; 85025; 85610; 87636; 93005; 99285; Q9967

== ENCOUNTER 2025-05-01 23:41 | Inpatient (IN) | payer MEDICARE, OTHER, SELFPAY ==
[2025-05-01 23:40] VITALS: BP 138/52; PULSE 104; RESP 24; TEMP 37.2; O2SAT 98; BMI 75.2
--- OUTSIDE RECORDS SUMMARY | 2025-05-01 23:48 | XMS_ITS | Clinical Summary ---
Author Organization [facility] Address [address] [place] [address] Care Team Providers Care Preparation Plant Repairer Name Role Phone Catherine Alcaraz Dr Primary Care Provider Unavailabl e Encounters Date Type Department Care Team Description 03/08/2025 Orders Only [facility] - Cardiovascular Medicine [address] [place] [address] Roger Aranda MD Cardiac pacemaker in situ (Primary Dx) 02/01/2025 Telephone [facility] [address] [place] [address] Roger Aranda MD from Last 3 Months Social History Tobacco [...] 2008 Zoster Vaccines (1 of 2) 2018 Depression Risk Screening 07/20/2024 SDOH Screening 07/20/2024 COVID-19 Vaccine (1 - 2023-2 5 season) 2025 Influenza Vaccine (#1) 2025 3, 05/21/2020, 04/25/2016 [...] Diagnosis Comments PM REMOTE - PACEART Routine 03/20/2025 Cardiac pacemaker in situ PM REMOTE - PACEART Routine 02/17/2025 Cardiac pacemaker in situ from Last 3 Months Results * PM Remote - PaceArt (03/20/2025) Only the most recent of2 resultswithin the time period is included. Anatomical Region Laterality Modality Other Roger Aranda MD CV PA DEVICE EAP-REMOTE Final Result from Last 3 Months Insurance [employer] MEDICARE ADVANTAGE [facility] Care Teams Preparation Plant Repairer Relationship Specialty Start Date End Date Catherine Alcaraz Dr. PCP - General 11/17/24
--- OUTSIDE RECORDS SUMMARY | 2025-05-01 23:48 | XMS_ITS | Encounter Summary ---
Author Organization [facility] Address [address] [place] [address] Care Team Providers Care Melting Operator Name Role Phone Catherine Alcaraz Dr Primary Care Provider Unavailabl e Reason for Referral * Imaging (Routine) - Pending Review Specialty Diagnoses / Procedures Referred By Contac t Referred To Contact Cardiology Diagnoses Cardiac pacemaker in situ Procedures PM Remote - PaceArt Roger Aranda MD [address] [address] Phone: tel: fax: [facility] [address] [facility] [address] [place] [address] Phone: tel: fax: Referral ID Status Reason Start Date Expiration Date V isits Requested Visits Authorized [id number] Pending Review 03/08/2025 04/07/2026 1 1 Encounter Details Date Type Department Care Team (Late st Contact Info) Description 03/08/2025 Orders Only [facility] - Cardiovascular Medicine [address] [id number] Roger Aranda MD [address] [phone] Cardiac pacemaker in situ (Primary [...] PACEART Routine 03/20/2025 Cardiac pacemaker in situ documented in this encounter Results * PM Remote - PaceArt (03/20/2025) Anatomical Region Laterality Modality Other us Roger Aranda MD CV PA DEVICE EAP-REMOTE Final Result documented in this encounter Visit Diagnoses Diagnosis Cardiac pacemaker in situ- Primary documented in this encounter Care Teams Melting Operator Relationship Specialty Start Date End Date Lissa, Catherine Rm Dr. PCP - General 11/17/24 documented as of this encounter
--- NOTE | 2025-05-01 23:49 | ECG_ITS ---
APPROVED REPORT Exam: Resting ECG HR:76 bpm ECG Measurements Heart Rate 76 AXES NE 220 P 71 QRSd 124 QRS -45 QT 382 T 99 QTc 412 Conclusion ELECTRONIC ATRIAL PACEMAKER LEFT AXIS DEVIATION [QRS AXIS < -30] POSSIBLE RIGHT VENTRICULAR CONDUCTION DELAY [RSR (QR) IN V1/V2] INFERIOR MYOCARDIAL INFARCTION , PROBABLY OLD [40+ ms Q WAVE AND/OR ST/T ABNORMALITY IN II/aVF] MODERATE T-WAVE ABNORMALITY, CONSIDER LATERAL ISCHEMIA [-0.1+ mV T-WAVE IN I/aVL/V5/V6] ABNORMAL ECG No STEMI Electronically signed by : SHIRLEY JOHNSON, 05/02/2025 04:21:53
--- OUTSIDE RECORDS SUMMARY | 2025-05-01 23:49 | XMS_ITS | Clinical Summary ---
Author Organization [facility] Address [address] [place] [address] Care Team Providers Care Analysis Lead Name Role Phone Vahid Garcia Nazia DO Primary Care Provider [phone] Allergies Active Allergy Reactions Criticality Noted Date [...] uterine and vaginal bleeding, unspecified 01/07/2025 01/14/2025 Social History Tobacco Use Types Packs/Day Years [...] any time in the past 12 m [facility], were you homeless or living in a halfway (including now)? No 01/10/2025 Utilities Answer Date [...] Screening 1968 [facility]-Medicare Annual Wellness (AWV) 1968 [facility]-Infant/Child/Adol SDOH Screenings 1968 [id number] Vaccine (#1) 1973 Diabetes: Dental Exam 1978 [...] Procedure Name Priority Date/Time Associated Diagnosis Comments HEMOGLOBIN A1C Routine 01/07/2025 6:29 PM EDT HEPATITIS C ANTIBODY - ED W/REFLEX TO HCV QUANT PCR STAT 01/07/2025 11:31 AM EDT ED HIV 1/2 ANTIBODY/ANTIGEN SCREEN WITH REFLEX TO HIV I/II DIFFERENTIATION STAT 01/07/2025 11:31 AM EDT from Last 3 Months or Most Recently Relevant to Health Maintenance Results * (ABNORMAL) Hemoglobin A1c (01/07/2025 6:29 PM EDT) Hemoglobin A1c 6.6(H) <5.7 % 01/08/2025 12:52 PM EDT [facility] Blood Venous blood specimen / Unknown Venipuncture / Unknown 01/07/2025 6:29 PM EDT 01/07/2025 6:34 PM EDT Narrative [facility] - 01/08/2025 12:52 PM EDT HA1C Interpretive Data: Diagnosis of Diabetes: Diabetic > or = 6.5% Pre-diabetic 5.7 to 6.4% Non-diabetic < or = 5.6% Glycemic Targets for Type I and Type II Diabetics: Non- Adults <7.0% Adults <6.0% Children and Adolescents <7.5% Source: [place] [employer]. Standards of medical care in diabetes,2017. Diabetes Care.2017:40 (suppl 1):S1-S135. us Elvia Lopez APRN, DNP LAB BLOOD ORDERABLES Final Result [facility] [address] [place] [address] * ED HIV 1/2 Antibody/Antigen Screen w/Reflex to HIV 1/2 Differentiation (01/07/2025 11:31 AM EDT) [facility] HIV 1 & 2 Antibody/Antigen Screen Non Reactive Non Reactive 01/07/2025 12:34 PM EDT [facility] Comment:Screening for HIV 1 & 2 antibodies, and P24 antigen is NONREACTIVE. No confirmatory testing is required. Blood Venous blood specimen / Unknown Venipuncture / Unknown 01/07/2025 11:31 AM EDT 01/07/2025 11:53 AM EDT Brenton Patton MD LAB BLOOD ORDERABLES Final Result [facility] [address] [place] [address] * Hepatitis C Antibody - ED (01/07/2025 11:31 AM EDT) [facility] Hepatitis C Antibody Negative Negative 01/07/2025 12:34 PM EDT [facility] Blood Venous blood specimen / Unknown Venipuncture / Unknown 01/07/2025 11:31 AM EDT 01/07/2025 11:53 AM EDT Brenton Patton MD LAB BLOOD ORDERABLES Final Result [facility] [address] [place] [address] from Last 3 Months or Most Recently Relevant to Health Maintenance Insurance [employer] [facility] MEDICAID [employer] MEDICARE Advance Directives * Full Code (Latest Code Status on File) Date Activated Date Inactivated Comments 01/07/2025 5:01 PM 01/14/2025 6:55 PM Question Answer Comments I have reviewed the capacity from the link above and, if needed, have updated to appropriate status: Yes Care Teams Analysis Lead Relationship Specialty Start Date End Date Vahid Garcia DO [address] [place] [address] [place] [id number] PCP - General 01/10/25
[2025-05-01 23:50] VITALS: PULSE 81; RESP 23; O2SAT 100
--- NOTE | 2025-05-01 23:52 | PC.NURSE ---
RT @ bedside starting pt on Vapotherm per MD order
[2025-05-01 23:53] LABS: Lactate Venous 2.1 mmol/L (0.4-2.0); VBG HCO3 36.0 mmol/L (23-30); VBG PCO2 66.4 mmol/L (35-51); VBG PH 7.35 mmol/L (7.31-7.41); VBG PO2 39.9 mmol/L (28-40)
[2025-05-02] VITALS (16 sets, daily range): BP systolic 116–150; BP diastolic 51–75; PULSE 70–87; RESP 18–25; TEMP 36.8–37.2; O2SAT 90–100; BMI 79.2
--- NOTE | 2025-05-02 00:10 | XR_ITS ---
PROCEDURE INFORMATION: Exam: XR Chest Exam date and time: 05/02/2025 12:20 AM Age: 54 years old Clinical indication: Shortness of breath; Additional info: SOA hypoxic at home TECHNIQUE: Imaging protocol: Radiologic exam of the chest. Views: 1 view. COMPARISON: CR XR CHEST PORTABLE 04/28/2025 5:54 PM FINDINGS: Tubes, catheters and devices: A pacemaker is present. Lungs: Coarse lung markings are asymmetrically worse on the right and partially obscured by body habitus. Favor mild asymmetric edema with left basilar consolidation, likely atelectasis. Pleural spaces: Unremarkable. No pleural effusion. No pneumothorax. Heart/Mediastinum: Unremarkable. No cardiomegaly. Bones/joints: Unremarkable. Soft tissues: Skin fold overlies the right chest. Increased density of the lower chest felt to be related overlying soft tissues. IMPRESSION: Coarse lung markings are asymmetrically worse on the right and partially obscured by body habitus. Favor mild asymmetric edema with left basilar consolidation, likely atelectasis. Recommend attention on any followup exams.
[2025-05-02 00:18] LABS: Hematocrit 27.1 % (37.0-47.0); Hemoglobin 7.3 g/dL (12.2-16.2); Immature Granulocytes % 0.8 %; Mean Corpuscular HGB Conc 26.9 g/dL (31.8-35.4); Mean Corpuscular Hemoglobin 21.3 pg (27.0-31.2); Mean Corpuscular Volume 79.2 fl (81-99); Nucleated Red Blood Cells % 0.2 %; Platelet Count 358 K/mm3 (142-424); Red Blood Count 3.42 M/mm3 (4.20-5.40); Red Cell Distribution Width-SD 56.1 fL; White Blood Count 9.9 K/mm3 (4.8-10.8)
--- NOTE | 2025-05-02 00:19 | [facility].EDCP ---
Discharge Plan Disposition Patient Disposition: Admitted Condition: Fair Prescriptions Prescriptions: No Action chlorhexidine gluconate 0.12 % mouthwash PO Patient Comments: FILL SUPPLIED CUP (1/2 OUNCE); SWISH IN MOUTH FOR 30 SECONDS TWICE DAILY (AFTER BREAKFAST & BEFORE BEDTIME). SWISH THEN EXPEL REMAINDER OR USE DIRECTED. DO not swallow metolazone 5 mg tablet 5 mg PO BID Qty: 28 0RF cholecalciferol (vitamin D3) 1,250 mcg (50,000 unit) capsule 1,250 mcg PO WEEKLY Qty: 12 3RF Repatha SureClick 140 mg/mL pen injector 140 mg SQ Q2W Qty: 2 5RF torsemide 20 mg tablet See Rx Instructions .ROUTE .COMPLEX Qty: 180 3RF Dose Instruction: TAKE TWO TABLETS BY MOUTH THREE TIMES DAILY Rx Instructions: TAKE TWO TABLETS BY MOUTH THREE TIMES DAILY Ozempic 1 mg/dose (4 mg/3 mL) pen injector See Rx Instructions .ROUTE .COMPLEX Qty: 3 0RF Dose Instruction: INJECT 1 MG SUBCUTANEOUSLY ONCE A WEEK Rx Instructions: INJECT 1 MG SUBCUTANEOUSLY ONCE A WEEK pregabalin 75 mg capsule 75 mg PO BID Qty: 60 1RF (DME) lancets [Accu-Chek Softclix Lancets] Misc See Rx Instructions .ROUTE .COMPLEX Qty: 200 3RF Dose Instruction: USE TO test blood sugar THREE TIMES DAILY Rx Instructions: USE TO test blood sugar THREE TIMES DAILY ropinirole 4 mg tablet See Rx Instructions .ROUTE .COMPLEX Qty: 90 3RF Dose Instruction: TAKE ONE TABLET BY MOUTH EVERY DAY Rx Instructions: TAKE ONE TABLET BY MOUTH EVERY DAY metformin 500 mg tablet See Rx Instructions .ROUTE .COMPLEX Qty: 180 3RF Dose Instruction: TAKE ONE TABLET BY MOUTH TWICE DAILY Rx Instructions: TAKE ONE TABLET BY MOUTH TWICE DAILY bupropion HCl 200 mg tablet sustained-release 12 hr 200 mg PO BID Qty: 180 3RF calcium carbonate [Calcium 600] 600 mg calcium (1,500 mg) Tablet 600 mg PO DAILY metoprolol tartrate 25 mg tablet 12.5 mg PO BID atorvastatin 40 mg tablet 40 mg PO HS ipratropium-albuterol 0.5 mg-3 mg(2.5 mg base)/3 mL solution for nebulization 3 ml inhalation QIDP PRN (Reason: Shortness Of Breath) cyanocobalamin (vitamin B-12) 1,000 mcg tablet 1,000 mcg PO DAILY aspirin 81 mg tablet,delayed release (DR/EC) 81 mg PO DAILY trazodone 150 mg tablet 300 mg PO HS levothyroxine 150 mcg tablet 300 mcg PO DAILY oxybutynin chloride 5 mg tablet 5 mg PO BID ondansetron 4 mg tablet,disintegrating 4 mg PO Q8HP PRN (Reason: Nausea And Vomiting) midodrine 10 mg tablet 10 mg PO TID Patient Comments: TAKE ONE TABLET BY MOUTH THREE TIMES DAILY cefuroxime axetil 500 mg tablet 500 mg PO Q12H Qty: 10 0RF Trelegy Ellipta 100-62.5-25 mcg blister with device 1 inh INHALATION DAILY Patient Comments: INHALE 1 PUFF BY MOUTH EVERY DAY --RINSE MOUTH AFTER USE-- albuterol sulfate 90 mcg/actuation HFA aerosol inhaler 2 puff inhalation Q4HP PRN (Reason: Shortness Of Breath) spironolactone 100 mg tablet 100 mg PO DAILY Qty: 90 1RF Referrals Follow up/Referrals: Provider,Referral, [Primary Care Provider, Medical] - See instructions Clinical Impressions Clinical Impression: Acute hypoxic respiratory failure, Morbid obesity, Hypercarbia, Volume overload, Anemia Print Language Print Language: Pashto Discharge ED Provider: Joselito Carlin General Chief Complaint: Shortness of Breath/Dyspnea Stated Complaint: SOA Time Seen by Provider: 05/01/25 23:42 Mode of Arrival: EMS Source of Information: Patient and EMS Description of Symptoms (Recalled from ER Triage Doc. by RN): Pt presents to ER with progressivley worsening SOB. Pt baseline O2 requirement is 2LNC. Per EMS, upon arrival pt was on 5LNC and having severe increased WOB. No meds given en route. Pt AAOx4 upon arrival. Pt denies chest pain, n/v/d. History of Present Illness HPI narrative: 54-year-old female with history of morbid obesity, HFpEF, hyperlipidemia, hypertension, hypothyroid, pacemaker, heart block, COPD presents to the ER with complaints of progressively worsening shortness of breath. Patient typically wears 2 L nasal cannula at home but a few days ago was evaluated in this ER and discharged and states since that time she has been feeling worse. She has increased her nasal cannula use at home but continues to get worse. EMS reports they found her on 5 L nasal cannula saturating 88 to 89% with significantly increased work of breathing. They applied nonrebreather mask and patient saturated in the upper 90s. Patient reports she has been taking her albuterol inhaler and has used at least 5 times today she states the symptoms improve for a few minutes after using it but then come back. Patient reports she has not been taking her water pill at home because she has not been able to get up to use the restroom. She denies chest pain, no nausea, vomiting, or diarrhea, no abdominal pain, no new numbness, tingling, or weakness. Denies fevers or chills. Patient reports family help take care of her at home. Related Data Home Medications ?Medication ?Instructions ?Recorded ?Confirmed calcium carbonate (Calcium 600) 600 mg PO DAILY 10/03/23 03/31/25 fluticasone fur. 100 mcg-umeclid 1 inh inhalation DAILY 09/24/24 03/31/25 62.5 mcg-vilant 25 mcg inhalat.powder (Trelegy Ellipta) albuterol sulfate 90 mcg/actuation 2 puff inhalation Q4HP PRN 12/07/24 03/31/25 aerosol inhaler Shortness Of Breath aspirin 81 mg tablet,delayed 81 mg PO DAILY 03/10/25 03/31/25 release atorvastatin 40 mg tablet 40 mg PO HS 03/10/25 03/31/25 cyanocobalamin (vitamin B-12) 1,000 mcg PO DAILY 03/10/25 03/31/25 1,000 mcg tablet ipratropium 0.5 mg-albuterol 3 mg 3 ml inhalation QIDP PRN Shortness 03/10/25 03/31/25 (2.5 mg base)/3 mL nebulization Of Breath soln levothyroxine 150 mcg tablet 300 mcg PO DAILY 03/10/25 03/31/25 metoprolol tartrate 25 mg tablet 12.5 mg PO BID 03/10/25 03/31/25 midodrine 10 mg tablet 10 mg PO TID 03/10/25 03/31/25 ondansetron 4 mg disintegrating 4 mg PO Q8HP PRN Nausea And 03/10/25 03/31/25 tablet Vomiting oxybutynin chloride 5 mg tablet 5 mg PO BID 03/10/25 03/31/25 trazodone 150 mg tablet 300 mg PO HS 03/10/25 03/31/25 chlorhexidine gluconate 0.12 % PO 03/21/25 03/31/25 mouthwash Previous Rx's ?Medication ?Instructions ?Recorded cholecalciferol (vitamin D3) 1,250 1,250 mcg PO WEEKLY #12 caps 05/26/24 mcg (50,000 unit) capsule evolocumab 140 mg/mL subcutaneous 140 mg SQ Q2W #2 mL 11/24/24 pen injector (Repatha AuctionataClick) spironolactone 100 mg tablet 100 mg PO DAILY #90 tabs 12/23/24 cefuroxime axetil 500 mg tablet 500 mg PO Q12H #10 tabs 03/11/25 metolazone 5 mg tablet 5 mg PO BID #28 tabs 03/31/25 pregabalin 75 mg capsule 75 mg PO BID #60 caps 04/19/25 semaglutide 1 mg/dose (4 mg/3 mL) See Rx Instructions .Route 04/19/25 subcutaneous pen injector (Ozempic) .COMPLEX #3 mL torsemide 20 mg tablet See Rx Instructions .Route 04/19/25 .COMPLEX #180 tabs lancets (Accu-Chek Softclix #200 ea 04/24/25 Lancets) ropinirole 4 mg tablet See Rx Instructions .Route 04/24/25 .COMPLEX #90 tabs bupropion HCl 200 mg tablet,12 hr 200 mg PO BID #180 ea 05/01/25 sustained-release metformin 500 mg tablet See Rx Instructions .Route 05/01/25 .COMPLEX #180 tabs Allergies Allergy/AdvReac Type Severity Reaction Status Date / Time adhesive tape (ADHESIVE TAPE) Allergy Unknown Blister Verified 03/31/25 13:02 hydromorphone (From DILAUDID) Allergy Unknown Hypotension Verified 03/31/25 13:02 nickel (NICKEL) Allergy Unknown Blister Verified 03/31/25 13:02 [facility] Disclaimer: The information contained in this section may have been updated after the patient was seen, as this information can be updated by other users. Medical History Pleural effusion Aphthous ulcer of mouth Slurred speech Transaminitis Elevated troponin Elevated liver enzymes GWEN (acute kidney injury) Bradycardia Morbid obesity with body mass index (BMI) greater than or equal to 70 in adult Postmenopausal bleeding HLD (hyperlipidemia) Obesity Abdominal pain UTI (urinary tract infection) Hospital discharge follow-up Establishing care with new doctor, encounter for Restless leg Glaucoma Arthritis of both knees Urinary incontinence Unspecified asthma, uncomplicated Tear of meniscus of knee Pre-diabetes Diastolic CHF, acute on chronic Pulmonary hypertension Elevated left ventricular end-diastolic pressure (LVEDP) Asthma exacerbation Sleep apnea History of COVID-19 COPD (chronic obstructive pulmonary disease) Asthma Abscess of groin, right Acute exacerbation of chronic obstructive airways disease Left against medical advice Dependent on wheelchair Assistance needed for continence Incisional hernia Complex large recurrent abdominal wall hernia (essentially with loss of domain) and focal skin ulceration Lower leg pain Knee pain Vaginal bleeding Perimenopausal Cellulitis Hypothyroidism Dizziness Chest pain Sinusitis Tobacco abuse counseling Tobacco abuse HONEY (obstructive sleep apnea) Ventral hernia Dyspnea Depression Pharyngitis due to Streptococcus species Epigastric pain Gastritis Strep throat HTN (hypertension) Hypothyroidism (acquired) TIA (transient ischemic attack) COPD exacerbation Paresthesias Shortness of breath Acute bronchitis Tobacco abuse COPD (chronic obstructive pulmonary disease) Infiltrate of lung present on chest x-ray Atelectasis of right lung Cough Upper respiratory infection Surgical History History of lateral meniscus repair of right knee Pt is unsure if it was lateral or medial H/O tubal ligation Hx of cholecystectomy H/O hernia repair History of colon resection Family History Mother Hypertension Diabetes Father Cancer Social History Smoking Status: Never smoker years smoked: 38 smoking status stop date: 3 months ago quit status: has quit before second hand exposure: Yes alcohol intake: never substance use type: denies use current occupational status: unemployed Travel in the last 8 weeks?: None household members: family and children housing: other lives independently: No marital status: legally number of children: 4 education level: other caffeine: Yes do you feel safe at home: Yes victim of physical abuse: No victim of emotional abuse: No victim of sexual abuse: No Have you lived/traveled outside [place] in past 30 days?: No Contact w/someone who lives/traveled outside [place] past 30 days?: No Exposure to someone with infectious disease in past 14 days?: No Do you have a fever (greater than 100.4 F or 38 C)?: No Have you tested positive for COVID-19?: No Exposed to someone with COVID-19 in past 14 days?: No Do you have a sore throat?: No Do you have a cough?: No Do you have any weakness?: No Do you have any diarrhea?: No Are you experiencing any unusual bleeding?: No Do you have any muscle aches/pain?: No Do you have any abdominal pain?: No Are you experiencing loss of taste or smell?: No Other Medical History Have you received the Flu Vaccine for this season: No Have you received the Pneumonia Vaccine: No ROS Obtained: Yes Systems reviewed as appropriate & no additional complaints except as documented per HPI Physical Exam General General appearance: alert, in no apparent distress and obese Comment: Chronically ill-appearing, hirsutism Head Head exam: atraumatic and normocephalic Eye Eye exam: Present PERRL and EOMI ENT ENT exam: Present mucous membranes moist Neck Neck exam: Present normal inspection and full ROM Chest Chest inspection: Present symmetric chest wall rise Respiratory Respiratory exam: Present respiratory distress (Slightly increased work of breathing, breath sounds diminished throughout); Absent wheezes or stridor Cardiovascular Cardiovascular exam: Present regular rate and normal rhythm Abdominal Exam Abdominal exam: Present soft; Absent distention or tenderness Comment: Large left-sided hernia with no evidence of incarceration or strangulation; Extremities Exam Extremities exam: Present full ROM and edema (+2 bilateral lower extremity pitting edema) Neurological Exam Neurological exam: Present alert and oriented X3; Absent motor sensory deficit Psychiatric Psychiatric exam: Present normal affect and normal mood Skin Skin exam: Present warm, dry and other (yeast dermatitis under abdominal folds and breast folds) HEART Score HEART Score HEART Score assessment performed?: Yes History (anamnesis): Slightly suspicious ECG: Non-specific disturbance Age: 45-65 years Risk factors: 3 or more risk factors Troponin: </= normal limit HEART Score: 4 Procedures Miscellaneous Procedure Procedure Performed: Limited Cardiac Ultrasound Performed by: Joselito Carlin MD Indication: Shortness of breath Identified cardiac views: [-Cardiac parasternal long axis] [-Cardiac parasternal short axis] [-Cardiac apical four-chamber] [-Cardiac subxiphoid] -not able to be obtained secondary to body habitus and poor acoustic windows Findings: Cardiac activity present with no gross wall motion abnormality, no pericardial effusion, no right heart strain Impression: - Cardiac activity present with no gross wall motion abnormality, no pericardial effusion, no right heart strain Images were saved to permanent archive The study was technically adequate CPT: 69198 This study was performed by nj, and I personally interpreted all images/videos. Based on my clinical judgement, these images were adequate and did not necessitate further imaging. Limited lung ultrasound Performed by: Joselito Carlin MD A focused ultrasound exam of the pleural spaces was performed to evaluate for pneumothorax, pulmonary edema, pleural effusion and/or consolidation. The ultrasound was performed with the following indications, as noted in the H&P: Shortness of breath Identified structures: Bilateral thoracic cavities were examined. Findings: Lung sliding: - Present bilaterally B-lines: Present bilaterally, worse on the right Pleural effusion: Not appreciated within limitations of exam, limited secondary to patient's body habitus and acoustic windows Consolidation: Not appreciated Impression: No pneumothorax, pleural effusion, or consolidation appreciated, B-lines present bilaterally Images were saved to permanent archive The study was technically adequate CPT 62741-24 This study was performed by nj, and I personally interpreted all images/videos. Based on my clinical judgement, these images were adequate and did not necessitate further imaging. Ultrasound-guided IV Performed by: Joselito Carlin MD Indication: Need for peripheral IV access, multiple failed nursing attempts Consent: Verbal provided by patient after discussion of risks and benefits Procedure details: Area cleaned with chlorhexidine which was allowed to dry prior to procedure. Sterile jelly used and appropriate vessel identified under real-time ultrasound. 20-gauge catheter was placed in the vessel in the left AC under real-time ultrasound guidance and I directly visualized it entering the vessel. IV draws and flushes. Secured with Tegaderm. Post procedure details: Neurovascularly intact, tolerated procedure well, no complications Critical Care Critical Care Time Critical Care Time: Yes Attestation: On 05/01/25, the high probability of a clinically significant, sudden or life threatening deterioration of the following system(s) required my full and direct attention, intervention and personal management. The time I documented below is in addition to time spent performing reported procedures but includes the following listed in this critical care notation. Total Time Total Critical Care Time: 35 Medical Decision Making Medical Records Medical records reviewed: Yes I reviewed the patient's medical records. MR Comment: Records from most recent evaluation in the ER demonstrate concerns for COPD exacerbation, BNP at that time in the 600s [place] Inquiry Pt receiving controlled substance: No Vital Signs Vital Signs: 05/01/25 23:40 05/01/25 23:50 05/02/25 00:00 Temperature 99.0 F Temperature Source Oral Pulse Rate 81 80 Pulse Rate [Left Radial] 104 H Respiratory Rate 24 23 24 Blood Pressure Blood Pressure [Right Forearm] 138/52 L Blood Pressure Mean Blood Pressure Mean [Right Forearm] 80 Blood Pressure Source [Right Forearm] Automatic Cuff Blood Pressure Position [Right Forearm] Sitting 02 Sat by Pulse Oximetry 98 100 100 Oxygen Delivery Method Non-Rebreather Oxygen Flow Rate (LPM) 05/02/25 00:01 05/02/25 00:01 05/02/25 00:15 Temperature Temperature Source Pulse Rate 80 Pulse Rate [Left Radial] Respiratory Rate 24 Blood Pressure 145/63 H Blood Pressure [Right Forearm] Blood Pressure Mean 90 Blood Pressure Mean [Right Forearm] Blood Pressure Source [Right Forearm] Blood Pressure Position [Right Forearm] 02 Sat by Pulse Oximetry 98 99 Oxygen Delivery Method Non-Rebreather Oxygen Flow Rate (LPM) 10 05/02/25 00:20 05/02/25 00:20 05/02/25 00:30 Temperature Temperature Source Pulse Rate 76 78 Pulse Rate [Left Radial] Respiratory Rate Blood Pressure 150/56 H Blood Pressure [Right Forearm] Blood Pressure Mean 87 Blood Pressure Mean [Right Forearm] Blood Pressure Source [Right Forearm] Blood Pressure Position [Right Forearm] 02 Sat by Pulse Oximetry Oxygen Delivery Method Oxygen Flow Rate (LPM) 05/02/25 00:30 Temperature Temperature Source Pulse Rate 86 Pulse Rate [Left Radial] Respiratory Rate 23 Blood Pressure Blood Pressure [Right Forearm] Blood Pressure Mean Blood Pressure Mean [Right Forearm] Blood Pressure Source [Right Forearm] Blood Pressure Position [Right Forearm] 02 Sat by Pulse Oximetry 100 Oxygen Delivery Method BiPAP Oxygen Flow Rate (LPM) Lab Data Labs: Lab Results 05/01/25 23:45: WBC 9.9, RBC 3.42 L, Hgb 7.3 L, Hct 27.1 L, MCV 79.2 L, MCH 21.3 L, MCHC 26.9 L, RDW 19.8 H, Plt Count 358, MPV 10.0, Neut % (Auto) 73.5, Lymph % (Auto) 17.2, [place] % (Auto) 6.5, Eos % (Auto) 1.5, Baso % (Auto) 0.5, Neut # (Auto) 7.3, Lymph # (Auto) 1.7, [place] # (Auto) 0.6, Eos # (Auto) 0.2, Baso # (Auto) 0.1, PT 10.8, INR 0.97, D-Dimer 1.51 H, Sodium 138, Potassium 4.4, Chloride 95 L, Carbon Dioxide 38 H, Anion Gap 9.4, BUN 10, Creatinine 0.80, Estimated Creat Clear 65, Estimated GFR 74, Est GFR ( Amer) 90, Glucose 187 H, Calcium 8.7, Total Bilirubin 0.4, AST 23, ALT 15, Alkaline Phosphatase 113, Troponin I < 0.01, NT-Pro-B Natriuret Pep 930 H, Total Protein 6.3, Albumin 3.1 L, Globulin 3.2, Albumin/Globulin Ratio 1.0 L 05/01/25 23:52: VBG pH 7.35, VBG pCO2 66.4 H, VBG pO2 39.9, VBG HCO3 36.0 H, VBG Total CO2 38.0 H, VBG O2 Saturation 71.1 H, VBG Base Excess 10.4 H, VBG Lactic Acid 2.1 H 05/02/25 00:05: TSH 6.05 H, Free T4 1.11 05/01/25 23:45 05/01/25 23:45 Response Orders (Tests/Meds): ED MEDICATIONS Discontinued Medications Generic Name Dose Route Start Last Admin Trade Name Freq PRN Reason Stop Dose Admin Albuterol/Ipratropium 9 ml 05/02/25 00:35 05/02/25 00:37 Ipratropium/Albuterol 3 Ml Neb IH 05/02/25 00:36 9 ml ONCE ONE Administration Aspirin 324 mg 05/02/25 00:10 05/02/25 00:36 Aspirin 81mg Chewable Tablet PO 05/02/25 00:11 324 mg ONCE ONE Administration Furosemide 80 mg 05/02/25 00:10 05/02/25 00:37 Furosemide 100mg/10ml Vial IV 05/02/25 00:11 80 mg ONCE ONE Administration Nystatin 1 gm 10/14/25 09:00 Nystatin Topical Powder 30gm TP 06/01/25 08:59 QID LINDSEY Nystatin 1 gm 05/02/25 00:43 05/02/25 00:44 Nystatin Topical Powder 30gm TP 05/02/25 00:44 1 gm ONCE ONE Administration ORDERS Category Date Time Status XR chest portable Stat Exams 05/02/25 00:10 Completed Complete Blood Count Auto Diff Stat Lab 05/02/25 00:10 Completed Comprehensive Metabolic Panel Stat Lab 05/02/25 00:10 Completed D-Dimer Stat Lab 05/02/25 00:10 Completed Free T4 (Free Thyroxine) Stat Lab 05/02/25 00:05 Completed Full Resp Panel w/COVID ([facility]) Routine Lab 05/02/25 00:41 Received NT Pro Brain Natriuretic Pep. Stat Lab 05/02/25 00:10 Completed Prothrombin Time INR Stat Lab 05/02/25 00:10 Completed TSH [Thyroid Stimulating Hormone] Stat Lab 05/02/25 00:05 Completed Troponin I Q3H Lab 05/02/25 03:15 Ordered Troponin I Q3H Lab 05/02/25 06:15 Ordered Troponin I Stat Lab 05/02/25 00:10 Completed Blood Culture Stat Micro 05/02/25 00:05 Received Venous Blood Gas Routine RT 05/01/25 23:52 Completed MDM Narrative Medical Decision Narrative: In summary, this 54-year-old female with comorbidities described in the HPI presents to the emergency department today with shortness of breath, respiratory distress. On initial evaluation patient is hemodynamically stable though she was initially tachycardic on triage vitals, afebrile, morbidly obese, chronically ill-appearing, mild respiratory distress, diminished breath sounds throughout without obvious wheezing or crackles though her body habitus significantly limits the quality of auscultation exam, abdominal exam with large left ventral hernia without evidence of strangulation or incarceration, mild peripheral edema. [id number] ultrasound performed by me at bedside demonstrates B-lines, no acute abnormality on cardiac ultrasound, I placed ultrasound-guided IV after multiple failed nursing attempts. See procedure notes for details. Differential diagnosis includes but is not limited to volume overload, COPD exacerbation, hypoxic respiratory failure, I did consider the possibility of sepsis or respiratory infection, viral infection, patient reports medication noncompliance which I believe is contributing to her symptoms as well. I did consider ACS or PE but patient is not having chest pain and has had gradual progression of symptoms with negative CTA PE 4 days ago. Based on these concerns, I ordered hematologic and serum labs, cardiac workup, D-dimer, VBG, chest x-ray. ECG personally interpreted demonstrates atrial pacemaker, left axis deviation, rate 76, PACs, no STEMI. ABG with normal pH but significant hypercarbia which is likely related to both obesity hypoventilation and potentially COPD. DuoNebs being administered. When patient had arrived I had initially placed her on Vapotherm high flow nasal cannula for oxygenation support since she was breathing relatively comfortably but with her significant hypercarbia I transitioned her to BiPAP which will help with obesity hypoventilation and hypercarbia from COPD. She is tolerating this well. Labs personally reviewed demonstrate no leukocytosis, anemia with hemoglobin 7.3 only slightly decreased from a few days ago when it was 7.9, normal platelets, PT/INR normal, CMP nonactionable, BNP is increased at 930 compared to in the 600s a few days ago further supporting my suspicions for volume overload. IV Lasix is being administered and Hernández catheter anchored for output measurement and management since patient is unable to get out of bed secondary to her weight. Initial troponin undetectably low less than 0.01. TSH is elevated at 6.05 but free T4 is normal. Patient's D-dimer is elevated at 1.51 which I suspect is related to her significant obesity. Patient had a CTA PE performed 4 days ago that was negative for PE and has had gradual progression of symptoms since that time so I do not have high suspicion for PE being the underlying cause of her shortness of breath especially since she has evidence of volume overload. Additionally, back in December she had a D-dimer of 1.7 with a negative CTA PE at that time. I am not going to pursue CTA PE at this time to avoid unnecessary radiation since I have good explanation for the patient's respiratory status already. XR personally interpreted demonstrates evidence of pulmonary edema, see radiology read for final interpretation. Patient is comfortable on BiPAP and oxygenating well. I believe she is appropriate for admission at this time. Nystatin has been applied in the skin folds to treat yeast dermatitis. I had extensive conversation with the patient and family about my concerns about obesity hypoventilation significantly contributing to his symptoms and that the patient's weight is killing her. I also explained that her noncompliance with medication regimen is very dangerous. We had a discussion about weight management at home including calorie restriction and I emphasized to the family that the fact she cannot get up and get her own food puts the responsibility in their hands to ensure that she is getting a healthy diet without calorie excess. Family is very receptive and understanding as is the patient. I discussed this case with the hospitalist. After reviewing the whole case since the patient has change in rhythm today on her EKG compared to what she had 4 days ago it was requested that Dr. David be consulted prior to admission because the patient is too heavy for our cath table if she were to need other cardiac intervention. I discussed this case with Dr. David including the patient's EKGs from today and her most recent visit to the ER. He states these are simply PACs and he will have the cardiology team pursue interrogation of the pacer during the day. He is comfortable with the patient being admitted here. Patient has been graciously accepted for admission to the hospitalist service. She was admitted in currently stable condition.
[2025-05-02 00:24] LABS: Alanine Aminotransferase 15 U/L (12-78); Albumin Level 3.1 g/dl (3.5-5.0); Albumin/Globulin Ratio 1.0 (1.1-1.8); Alkaline Phosphatase 113 U/L (38-126); Anion Gap 9.4 mEq/L (5-15); Aspartate Amino Transferase 23 U/L (14-36); Bilirubin,Total 0.4 mg/dl (0.2-1.3); Blood Urea Nitrogen 10 mg/dl (7-17); Calcium 8.7 mg/dl (8.4-10.2); Carbon Dioxide 38 mmol/L (22.0-30.0); Chloride 95 mmol/L (98-107); Creatinine Clearance Estimated 65 mL/min (50-200); Creatinine,Serum 0.80 mg/dl (0.52-1.04); Estimated Glomerular Filt Rate 74 ml/min (>60); GFR (African American) 90 ML/MIN (>60); Globulin 3.2 g/dL (1.3-3.2); Glucose 187 mg/dl (74-100); Potassium 4.4 mmoL/L (3.5-5.1); Sodium 138 mmol/L (136-145); Total Protein,Serum 6.3 g/dl (6.3-8.2)
[2025-05-02 00:28] LABS: INR 0.97 (0.9-1.1); Prothrombin Time 10.8 seconds (10.1-12.5)
[2025-05-02 00:36] LABS: NT Pro Brain Natriuretic Pep. 930 pg/mL (0-125)
[2025-05-02] MEDS: ASPIRIN 81MG CHEWABLE TABLET 324 MG PO (00:36)
[2025-05-02 00:37] LABS: Troponin I < 0.01 ng/ml (0.00-0.034)
[2025-05-02] MEDS: FUROSEMIDE 100MG/10ML VIAL 80 MG IV (00:37)
[2025-05-02] MEDS: IPRATROPIUM/ALBUTEROL 3 ML NEB 9 ML IH (00:37)
[2025-05-02 00:42] LABS: D-Dimer 1.51 ug/mL (0.0-0.5)
[2025-05-02] MEDS: NYSTATIN TOPICAL POWDER 30GM TP (00:44)
[2025-05-02 00:47] LABS: Adenovirus,PCR Not Detected (NotDetected); Chlamydophila Pneumoniae, PCR Not Detected (NotDetected); Coronavirus 19, PCR Not Detected (NotDetected); Coronovirus HKU1,PCR Not Detected (NotDetected); Influenza A, PCR Not Detected (NotDetected); Influenza AH1, 2009 Not Detected (NotDetected); Influenza AH1, PCR Not Detected (NotDetected); Influenza AH3,PCR Not Detected (NotDetected); Influenza B, PCR Not Detected (NotDetected); Mycoplasma Pneumoniae, PCR Not Detected (NotDetected); Parainfluenza 1, PCR Not Detected (NotDetected); Parainfluenza 2, PCR Not Detected (NotDetected); Parainfluenza 3, PCR Not Detected (NotDetected); Parainfluenza 4, PCR Not Detected (NotDetected)
[2025-05-02 00:47] LABS: Free T4 (Free Thyroxine) 1.11 ng/dl (0.78-2.19)
[2025-05-02 01:01] LABS: Thyroid Stimulating Hormone 6.05 uIU/mL (0.465-4.68)
--- NOTE | 2025-05-02 01:35 | P.HP_ITS ---
<Statement entered by Hernan Barros MD - 05/02/25 11:47> Rounded on patient after nurse practitioner. Personally examined and interviewed patient. Agree with exam findings and care plan as documented. Labs reviewed on morning rounds showing stable kidney function with BUN 8, creatinine 0.8. Initiated Bumex 2 mg IV twice daily. Cardiology consulted to evaluate. Repeat CBC, CMP, magnesium ordered for the morning. On 2 L oxygen this morning. Feeling better. Diuresing well. Resumed home medications for heart failure. Started on sliding scale insulin with fingersticks ACHS. History of Present Illness *Admission Date: 05/02/25 *Reason for visit:: shortness of breath *History of present illness: This is a 54-year-old female with a past medical history of HFpEF, morbid obesity, Mobitz type II with pacemaker in situ, T2DM, HONEY, hypothyroidism who presents emergency department today with complaints of shortness of breath.? Reports compliance with her home 2 L nasal cannula but had increased work of breathing and shortness of breath over the last several days.? She reports being seen in the emergency department 3 days ago and discharged home but has been feeling worse since then.? EMS was called to the home and she was noted to have oxygen saturations of 88% after? patient increased her home oxygen to 5 L.? She endorses more frequent use of her inhaler today.? She states noncompliance with her home diuretic secondary to immobility and getting to the restroom.? She denies fever, chills, vomiting, diarrhea. Emergency department workup notable for CO2 of 66 with a pH of 7.35, BNP of 930, lactic acid of 2.1.She did require Vapotherm for continued hypoxia and increased work of breathing. Given her acute on chronic respiratory failure it was felt she would benefit from hospitalization and IV diuresis. She is admitted to the hospitalist service at this time [facility] Disclaimer: The information contained in this section may have been updated after the patient was seen, as this information can be updated by other users. Medical History Pleural effusion Aphthous ulcer of mouth Slurred speech Transaminitis Elevated troponin Elevated liver enzymes GWEN (acute kidney injury) Bradycardia Morbid obesity with body mass index (BMI) greater than or equal to 70 in adult Postmenopausal bleeding HLD (hyperlipidemia) Obesity Abdominal pain UTI (urinary tract infection) Hospital discharge follow-up Establishing care with new doctor, encounter for Restless leg Glaucoma Arthritis of both knees Urinary incontinence Unspecified asthma, uncomplicated Tear of meniscus of knee Pre-diabetes Diastolic CHF, acute on chronic Pulmonary hypertension Elevated left ventricular end-diastolic pressure (LVEDP) Asthma exacerbation Sleep apnea History of COVID-19 COPD (chronic obstructive pulmonary disease) Asthma Abscess of groin, right Acute exacerbation of chronic obstructive airways disease Left against medical advice Dependent on wheelchair Assistance needed for continence Incisional hernia Complex large recurrent abdominal wall hernia (essentially with loss of domain) and focal skin ulceration Lower leg pain Knee pain Vaginal bleeding Perimenopausal Cellulitis Hypothyroidism Dizziness Chest pain Sinusitis Tobacco abuse counseling Tobacco abuse HONEY (obstructive sleep apnea) Ventral hernia Dyspnea Depression Pharyngitis due to Streptococcus species Epigastric pain Gastritis Strep throat HTN (hypertension) Hypothyroidism (acquired) TIA (transient ischemic attack) COPD exacerbation Paresthesias Shortness of breath Acute bronchitis Tobacco abuse COPD (chronic obstructive pulmonary disease) Infiltrate of lung present on chest x-ray Atelectasis of right lung Cough Upper respiratory infection Surgical History History of lateral meniscus repair of right knee Pt is unsure if it was lateral or medial H/O tubal ligation Hx of cholecystectomy H/O hernia repair History of colon resection Family History Mother Hypertension Diabetes Father Cancer Social History Smoking Status: Never smoker years smoked: 38 smoking status stop date: 3 months ago quit status: has quit before second hand exposure: Yes alcohol intake: never substance use type: denies use current occupational status: unemployed Travel in the last 8 weeks?: None household members: family and children housing: other lives independently: No marital status: legally number of children: 4 education level: other caffeine: Yes do you feel safe at home: Yes victim of physical abuse: No victim of emotional abuse: No victim of sexual abuse: No Have you lived/traveled outside [place] in past 30 days?: No Contact w/someone who lives/traveled outside [place] past 30 days?: No Exposure to someone with infectious disease in past 14 days?: No Do you have a fever (greater than 100.4 F or 38 C)?: No Have you tested positive for COVID-19?: No Exposed to someone with COVID-19 in past 14 days?: No Do you have a sore throat?: No Do you have a cough?: No Do you have any weakness?: No Do you have any diarrhea?: No Are you experiencing any unusual bleeding?: No Do you have any muscle aches/pain?: No Do you have any abdominal pain?: No Are you experiencing loss of taste or smell?: No Other Medical History Have you received the Flu Vaccine for this season: No Have you received the Pneumonia Vaccine: No Review of Systems Review of Systems Review of systems:: pertinent systems reviewed and negative unless documented below Review of systems (narrative): Negative except for HPI Meds Home Medications and Allergies Home Medications ?Medication ?Instructions ?Recorded ?Confirmed ?Type calcium carbonate (Calcium 600) 600 mg PO DAILY 03/31/25 History cholecalciferol (vitamin D3) 1,250 1,250 mcg PO WEEKLY #12 caps 05/26/24 03/31/25 Rx mcg (50,000 unit) capsule fluticasone fur. 100 mcg-umeclid 1 inh inhalation LEONARDO Y 09/24/24 03/31/25 History 62.5 mcg-vilant 25 mcg inhalat.powder (Trelegy Ellipta) evolocumab 140 mg/mL subcutaneous 140 mg SQ Q2W #2 mL 11/24/24 03/31/25 Rx pen injector (Meli Dowling) albuterol sulfate 90 mcg/actuation 2 puff inhalation Q 4HP PRN 12/07/24 03/31/25 History aerosol inhaler Shortness Of Breath spironolactone 100 mg tablet 100 mg PO DAILY #90 tabs 12/23/24 03/31/25 Rx aspirin 81 mg tablet,delayed 81 mg PO DAILY 03/10/25 0 03/31/25 History release atorvastatin 40 mg tablet 40 mg PO HS 03/10/25 5 History cyanocobalamin (vitamin B-12) 1,000 mcg PO DAILY 03/1003/31/25 History 1,000 mcg tablet ipratropium 0.5 mg-albuterol 3 mg 3 ml inhalation QIDP PRN Shortness 03/10/25 03/31/25 History (2.5 mg base)/3 mL nebulization Of Breath soln levothyroxine 150 mcg tablet 300 mcg PO DAILY 03/10/25 03/31/25 History metoprolol tartrate 25 mg tablet 12.5 mg PO BID 03/31/25 History midodrine 10 mg tablet 10 mg PO TID 03/10/25 History ondansetron 4 mg disintegrating 4 mg PO Q8HP PRN Nause a And 03/10/25 03/31/25 History tablet Vomiting oxybutynin chloride 5 mg tablet 5 mg PO BID 03/10/25 0 03/31/25 History trazodone 150 mg tablet 300 mg PO HS 03/10/25 History cefuroxime axetil 500 mg tablet 500 mg PO Q12H #10 tab s 03/11/25 03/31/25 Rx chlorhexidine gluconate 0.12 % PO 03/21/25 03/31/25 Hi story mouthwash metolazone 5 mg tablet 5 mg PO BID #28 tabs 5 03/31/25 Rx pregabalin 75 mg capsule 75 mg PO BID #60 caps Rx semaglutide 1 mg/dose (4 mg/3 mL) See Rx Instructions .Route 04/19/25 Rx subcutaneous pen injector (Ozempic) .COMPLEX #3 mL torsemide 20 mg tablet See Rx Instructions .Route 1 Rx .COMPLEX #180 tabs lancets (Accu-Chek Softclix #200 ea 04/24/25 Rx Lancets) ropinirole 4 mg tablet See Rx Instructions .Route 1 Rx .COMPLEX #90 tabs bupropion HCl 200 mg tablet,12 hr 200 mg PO BID #180 e a 05/01/25 Rx sustained-release metformin 500 mg tablet See Rx Instructions .Route 1 Rx .COMPLEX #180 tabs New Prescriptions to Start Prescriptions: Allergies Allergy/AdvReac Type Severity Reaction Status Date / Time adhesive tape (ADHESIVE TAPE) Allergy Unknown Blister Verified 03/31/25 13:02 hydromorphone (From DILAUDID) Allergy Unknown Hypotension Verified 03/31/25 13:02 nickel (NICKEL) Allergy Unknown Blister Verified 03/31/25 13:02 Exam Data for Last 24 hours Vital signs and Labs for Last 24 Hours: Temp Pulse Resp BP Pulse Ox O2 Del Method O2 Flow Rate 99.0 F 86 23 150/56 H 100 BiPAP 10 05/01/25 23:40 05/02/25 00:30 05/02/25 00:30 05/02/25 00:30 05/02/25 00:30 05/02/25 00:30 05/02/25 00:01 Laboratory Results - last 24 hr 05/01/25 23:45: WBC 9.9, RBC 3.42 L, Hgb 7.3 L, Hct 27.1 L, MCV 79.2 L, MCH 21.3 L, MCHC 26.9 L, RDW 19.8 H, Plt Count 358, MPV 10.0, Neut % (Auto) 73.5, Lymph % (Auto) 17.2, Gentry % (Auto) 6.5, Eos % (Auto) 1.5, Baso % (Auto) 0.5, Neut # (Auto) 7.3, Lymph # (Auto) 1.7, Gentry # (Auto) 0.6, Eos # (Auto) 0.2, Baso # (Auto) 0.1, PT 10.8, INR 0.97, D-Dimer 1.51 H, Sodium 138, Potassium 4.4, Chloride 95 L, Carbon Dioxide 38 H, Anion Gap 9.4, BUN 10, Creatinine 0.80, Estimated Creat Clear 65, Estimated GFR 74, Est GFR ( Amer) 90, Glucose 187 H, Calcium 8.7, Total Bilirubin 0.4, AST 23, ALT 15, Alkaline Phosphatase 113, Troponin I < 0.01, NT-Pro-B Natriuret Pep 930 H, Total Protein 6.3, Albumin 3.1 L, Globulin 3.2, Albumin/Globulin Ratio 1.0 L 05/01/25 23:52: VBG pH 7.35, VBG pCO2 66.4 H, VBG pO2 39.9, VBG HCO3 36.0 H, VBG Total CO2 38.0 H, VBG O2 Saturation 71.1 H, VBG Base Excess 10.4 H, VBG Lactic Acid 2.1 H 05/02/25 00:05: TSH 6.05 H, Free T4 1.11 I & O for Last 24 hours: Intake & Output 04/29/25 04/30/25 05/01/25 05/02/25 23:59 23:59 23:59 23:59 Weight 192.777 kg Constitutional Constitutional: mild distress, morbidly obese, chronically ill appearing and cooperative *Routine HEENT Exam Head: Present normocephalic and cushingoid faces Eye: Present EOMI and PERRL ENT: Present mucous membranes moist *Routine Neck Exam Neck: Present supple; Absent lymphadenopathy *Routine Respiratory Exam Respiratory: Present prolonged expiratory phase and distant breath sounds; Absent respiratory distress, stridor, wheezes or crackles *Routine Cardiovascular Exam Cardiovascular: Present RRR *Routine Abdominal Exam Abdominal: Present soft, normoactive bowel sounds and obese; Absent tenderness or distended *Routine Rectal Exam Rectal:: deferred *Routine Genitalia Exam Genitalia:: deferred *Routine Extremities Exam Extremities: Present edema (2+ to knees); Absent cyanosis or clubbing *Routine Skin Exam Skin: Present intact and warm; Absent rash *Routine Neurological Exam Neurological: Present alert, oriented X3 and moving all extremities; Absent altered mental status Assessment and Plan *Assessment and plan (1) Morbid obesity with body mass index (BMI) greater than or equal to 70 in adult: Status: Acute Category: Medical Code(s): E66.01 - Morbid (severe) obesity due to excess calories; Z68.45 - Body mass index [BMI] 70 or greater, adult (2) Volume overload: Status: Acute Category: Medical Code(s): E87.70 - Fluid overload, unspecified (3) Acute and chronic respiratory failure with hypoxia: Status: Acute Category: Medical Code(s): J96.21 - Acute and chronic respiratory failure with hypoxia (4) Morbid obesity: Status: Acute Category: Medical Code(s): E66.01 - Morbid (severe) obesity due to excess calories (5) Hypothyroidism: Status: Acute Qualifiers: Hypothyroidism type: unspecified Qualified Code(s): E03.9 - Hypothyroidism, unspecified Category: Medical Code(s): E03.9 - Hypothyroidism, unspecified (6) HONEY (obstructive sleep apnea): Status: Acute Category: Medical Code(s): G47.33 - Obstructive sleep apnea (adult) (pediatric) Plan #Acute on chronic respiratory failure with hypoxia Baseline home O2 2 L, now requiring Vapotherm at 10 L. Increased work of breathing on arrival with tachypnea noted with respiratory rate of 24 Reports noncompliance with home diuretic regimen Continue to wean oxygen as tolerated Continue IV diuresis D-dimer elevated but has been elevated the past several admissions. Had CT PE scan 3 days ago with negative result. Will defer further CT scans at this time. Patient placed on increased dosing of DVT PPx. #Acute on chronic diastolic heart failure Elevated BNP of 930.? Chest x-ray with pulmonary edema noted Reports noncompliance with her diuretics secondary to immobility Continue IV diuresis with Bumex 2 mg IV daily as well as home spironolactone 100 mg daily and metolazone 5 mg twice daily Strict intake and output 1500 mL fluid restriction daily Low-salt diet #SIRS without documented infection Meets criteria for tachycardia, tachypnea and elevated body temp 99.0 Denies any overt fever at this time.? Does endorse cough but is also overloaded on exam Will obtain procalcitonin and tailor antibiotics accordingly Patient appears nontoxic RPP pathogen panel pending #Mobitz type II heart block #Pacemaker in situ Recent transfer to [facility] for pacemaker lead changing Appears to be capturing at this time. Denies chest pain or palpitations Block appears different than prior EKG. Frankie consulted prior to admission given limitations to provide pacer maintenance 2/2 to pts weight. Okay with admit here, will interrogate pacer in AM #COPD without exacerbation Appears volume overloaded on exam.? Does not appear to be in COPD exacerbation. Mild hypercapnia noted with CO2 of 66 but normal pH.? I suspect this is likely secondary to obesity hypoventilation syndrome more chronic obstructive disease.? Placed on BiPAP for mild CO2 retention but patient was otherwise stable on Vapotherm #Hypothyroidism Continue home levothyroxine Check TSH and free T4 #Morbid obesity BMI > 75. Spoke at length with patient and patient's family regarding calorie intake. Family does have to cook and bring all foods to patient and educated them on appropriate caloric intake to aid in weight loss. Complicates all aspects of care Continue home GLP-1 dosing #Anxiety and depression Continue Wellbutrin 200 mg daily Continue trazodone 300 mg nightly DVT PPx Lovenox 60 mg twice daily (BMI greater than 50)
[2025-05-02 01:41] LABS: Microscopic, Urine URINE MICROSCOPIC (MICROSCOPIC)
[2025-05-02 01:47] LABS: Bilirubin,Urine Negative (Negative); Color,Urine YELLOW (Yellow); Glucose,Urine (UA) Negative (Negative); Ketones,Urine Negative (Negative); Leukocyte Esterase,Urine Negative (Negative); PH,Urine 6.0 (5.0-8.5); Protein,Urine TRACE (Negative); Specific Gravity, Urine >= 1.030 (1.005-1.030); Urobilinogen,Urine 0.2 EU/dl (0.2)
[2025-05-02 02:04] LABS: Bacteria,Urine Trace /lpf
[2025-05-02 02:06] LABS: Procalcitonin 0.084 ng/mL (0.0-2.0)
[2025-05-02 03:52] LABS: Reflex Lactic Add Lactic Reflex
--- NOTE | 2025-05-02 04:38 | PC.WOUNDNOTE ---
under left hernia
--- NOTE | 2025-05-02 04:39 | PC.WOUNDNOTE ---
under left breast
--- NOTE | 2025-05-02 04:41 | PC.WOUNDNOTE ---
under left hernia site
--- NOTE | 2025-05-02 04:41 | PC.WOUNDNOTE ---
left linn/abdomen
--- NOTE | 2025-05-02 04:42 | PC.WOUNDNOTE ---
front linn/abdomen
[2025-05-02 04:52] LABS: Troponin I < 0.01 ng/ml (0.00-0.034)
--- NOTE | 2025-05-02 04:53 | PC.WOUNDNOTE ---
open wound on bottom, draining
[2025-05-02 05:18] LABS: Chloride 91 mmol/L (98-107); Potassium 4.0 mmoL/L (3.5-5.1); Sodium 136 mmol/L (136-145)
[2025-05-02 05:21] LABS: Blood Urea Nitrogen 8 mg/dl (7-17); Creatinine Clearance Estimated 65 mL/min (50-200); Creatinine,Serum 0.80 mg/dl (0.52-1.04); Estimated Glomerular Filt Rate 74 ml/min (>60); GFR (African American) 90 ML/MIN (>60); Lactic Acid Follow Up (RFLX 1) 1.7 mmol/L (0.7-2.1)
[2025-05-02 05:22] LABS: Calcium 8.6 mg/dl (8.4-10.2); Glucose 141 mg/dl (74-100)
[2025-05-02 05:39] LABS: Hematocrit 28.6 % (37.0-47.0); Hemoglobin 7.6 g/dL (12.2-16.2); Immature Granulocytes % 0.7 %; Mean Corpuscular HGB Conc 26.6 g/dL (31.8-35.4); Mean Corpuscular Hemoglobin 20.8 pg (27.0-31.2); Mean Corpuscular Volume 78.4 fl (81-99); Nucleated Red Blood Cells % 0.3 %; Platelet Count 370 K/mm3 (142-424); Red Blood Count 3.65 M/mm3 (4.20-5.40); Red Cell Distribution Width-SD 55.8 fL; White Blood Count 9.2 K/mm3 (4.8-10.8)
[2025-05-02 06:00] LABS: Anion Gap 7.0 mEq/L (5-15); Carbon Dioxide 42 mmol/L (22.0-30.0)
[2025-05-02 06:41] LABS: Lactate Venous 1.6 mmol/L (0.4-2.0); VBG HCO3 33.3 mmol/L (23-30); VBG PH 7.43 mmol/L (7.31-7.41); VBG PO2 88.9 mmol/L (28-40)
[2025-05-02 06:44] LABS: VBG PCO2 51.4 mmol/L (35-51)
--- NOTE | 2025-05-02 06:46 | PC.NURSE ---
reported VBG results to Cynthia Fowler RN
[2025-05-02 07:14] LABS: Troponin I < 0.01 ng/ml (0.00-0.034)
[2025-05-02] MEDS: BUMETANIDE 1MG/4ML VIAL 2 MG IV ×2 (08:36→16:20)
[2025-05-02] MEDS: ASPIRIN EC 81MG TABLET 81 MG PO (08:36)
[2025-05-02] MEDS: METOPROLOL TARTRATE 25MG TABLET 25 MG PO ×2 (08:36→20:33)
[2025-05-02] MEDS: SPIRONOLACTONE 25MG TABLET 100 MG PO (08:37)
[2025-05-02] MEDS: LEVOTHYROXINE 150MCG (0.15MG)TAB 300 MCG PO (08:37)
[2025-05-02] MEDS: ACETAMINOPHEN 325MG TAB 650 MG PO ×2 (08:40→13:04)
[2025-05-02] MEDS: PREGABALIN 25MG CAPSULE 75 MG PO ×2 (08:40→20:33)
--- NOTE | 2025-05-02 08:48 | HMH.PHAINT1 ---
Pharmacy Intervention Comments: MEDICATION RECONCILIATION COMPLETED ON PATIENT USING EXTERNAL FILL HISTORY FROM PHARMACY. -DG YEUNG, ROCKD
--- NOTE | 2025-05-02 10:04 | EXP.CARD.CON ---
History of Present Illness History of Present Illness Consult date: 05/02/25 Requesting physician: Hernan Barros Consult reason: shortness of breath Chief complaint: Shortness of breath History of present illness: This is a 54-year-old white female who presented to the emergency department with shortness of breath. She has a past medical history of HFpEF, morbid obesity, Mobitz type II status post permanent pacemaker placement, type 2 diabetes, obstructive sleep apnea, hyperlipidemia. The patient reports that she has been short of breath for the last week or so and she came to the emergency department approximately 3 days ago. She was discharged from the emergency department at that time and her symptoms continue to worsen. She states that her shortness of breath is severe and had turned her oxygen up to 5 L at home and was only satting 88%. She called EMS because of her worsening symptoms. The patient states that she has been wearing her oxygen regularly but she has not been taking her diuretics secondary to immobility and being unable to make it to the bathroom. She also has lower extremity edema noted with her shortness of breath. She denies any chest pain or pressure. She denies any fever, chills, nausea, vomiting, diarrhea. She does have orthopnea associated with her shortness of breath. The patient was initially placed on Vapotherm. She is on BiPAP this morning. [facility] Disclaimer: The information contained in this section may have been updated after the patient was seen, as this information can be updated by other users. Medical History (Updated 05/02/25 @ 10:11 by Aimee Pierre APRN) Presence of cardiac pacemaker Acute on chronic heart failure with preserved ejection fraction (HFpEF) Pleural effusion Aphthous ulcer of mouth Slurred speech Transaminitis Elevated troponin Elevated liver enzymes GWEN (acute kidney injury) Bradycardia Morbid obesity with body mass index (BMI) greater than or equal to 70 in adult Postmenopausal bleeding HLD (hyperlipidemia) Obesity Abdominal pain UTI (urinary tract infection) Hospital discharge follow-up Establishing care with new doctor, encounter for Restless leg Glaucoma Arthritis of both knees Urinary incontinence Unspecified asthma, uncomplicated Tear of meniscus of knee Pre-diabetes Diastolic CHF, acute on chronic Pulmonary hypertension Elevated left ventricular end-diastolic pressure (LVEDP) Asthma exacerbation Sleep apnea History of COVID-19 COPD (chronic obstructive pulmonary disease) Asthma Abscess of groin, right Acute exacerbation of chronic obstructive airways disease Left against medical advice Dependent on wheelchair Assistance needed for continence Incisional hernia Lower leg pain Knee pain Vaginal bleeding Perimenopausal Cellulitis Hypothyroidism Dizziness Chest pain Sinusitis Tobacco abuse counseling Tobacco abuse HONEY (obstructive sleep apnea) Ventral hernia Dyspnea Depression Pharyngitis due to Streptococcus species Epigastric pain Gastritis Strep throat HTN (hypertension) Hypothyroidism (acquired) TIA (transient ischemic attack) COPD exacerbation Paresthesias Shortness of breath Acute bronchitis Tobacco abuse COPD (chronic obstructive pulmonary disease) Infiltrate of lung present on chest x-ray Atelectasis of right lung Cough Upper respiratory infection Surgical History History of lateral meniscus repair of right knee H/O tubal ligation Hx of cholecystectomy H/O hernia repair History of colon resection Family History Mother Hypertension Diabetes Father Cancer Social History (Updated 05/02/25 @ 03:24 by Annita Carbajal RN) Smoking Status: Never smoker years smoked: 38 smoking status stop date: 3 months ago quit status: has quit before second hand exposure: Yes alcohol intake: never substance use type: denies use current occupational status: unemployed Travel in the last 8 weeks?: None household members: family and children housing: other lives independently: No marital status: legally number of children: 4 education level: other caffeine: Yes do you feel safe at home: Yes victim of physical abuse: No victim of emotional abuse: No victim of sexual abuse: No Have you lived/traveled outside [place] in past 30 days?: No Contact w/someone who lives/traveled outside US past 30 days?: No Exposure to someone with infectious disease in past 14 days?: No Do you have a fever (greater than 100.4 F or 38 C)?: No Have you tested positive for COVID-19?: No Exposed to someone with COVID-19 in past 14 days?: No Do you have a sore throat?: No Do you have a cough?: No Do you have any weakness?: No Do you have any diarrhea?: No Are you experiencing any unusual bleeding?: No Do you have any muscle aches/pain?: No Do you have any abdominal pain?: No Are you experiencing loss of taste or smell?: No Review of Systems Review of Systems Review of systems:: pertinent systems reviewed and negative unless documented below Constitutional Constitutional: Reports system reviewed and no additional complaints, except as documented, Reports fatigue and Reports weakness Eyes Eyes: Reports system reviewed and no additional complaints, except as documented ENT Ears, Nose, Mouth, and Throat: Reports system reviewed and no additional complaints, except as documented *Cardiovascular Cardiovascular: Reports system reviewed and no additional complaints, except as documented, Denies chest pain, Reports dyspnea, Reports dyspnea on exertion, Reports edema, Reports leg edema, Reports orthopnea and Reports pedal edema *Respiratory Respiratory: Reports system reviewed and no additional complaints, except as documented, Reports dyspnea and Reports dyspnea on exertion *Gastrointestinal Gastrointestinal: Reports system reviewed and no additional complaints, except as documented *Genitourinary Genitourinary: Reports system reviewed and no additional complaints, except as documented *Musculoskeletal Musculoskeletal: Reports system reviewed and no additional complaints, except as documented Integumentary/Breasts Skin/Breast: Reports system reviewed and no additional complaints, except as documented *Neurologic Neurologic: Reports system reviewed and no additional complaints, except as documented and Reports weakness Psychiatric Psychiatric: Reports system reviewed and no additional complaints, except as documented Endocrine Endocrine: Reports system reviewed and no additional complaints, except as documented and Reports fatigue Hematologic/Lymphatic Hematologic/Lymphatic: Reports system reviewed and no additional complaints, except as documented Allergic/Immunologic Allergic/Immunologic: Reports system reviewed and no additional complaints, except as documented Exam Data for Last 24 hours Vital signs and Labs for Last 24 Hours: Temp Pulse Resp BP Pulse Ox O2 Del Method O2 Flow Rate 98.4 F 87 18 116/75 93 L Nasal Cannula 2.5 05/02/25 08:00 05/02/25 08:00 05/02/25 08:00 05/02/25 08:00 05/02/25 08:00 05/02/25 09:00 05/02/25 09:00 FiO2 28 05/02/25 00:15 Laboratory Results - last 24 hr 05/01/25 23:45: WBC 9.9, RBC 3.42 L, Hgb 7.3 L, Hct 27.1 L, MCV 79.2 L, MCH 21.3 L, MCHC 26.9 L, RDW 19.8 H, Plt Count 358, MPV 10.0, Neut % (Auto) 73.5, Lymph % (Auto) 17.2, Pecos % (Auto) 6.5, Eos % (Auto) 1.5, Baso % (Auto) 0.5, Neut # (Auto) 7.3, Lymph # (Auto) 1.7, Pecos # (Auto) 0.6, Eos # (Auto) 0.2, Baso # (Auto) 0.1, PT 10.8, INR 0.97, D-Dimer 1.51 H, Sodium 138, Potassium 4.4, Chloride 95 L, Carbon Dioxide 38 H, Anion Gap 9.4, BUN 10, Creatinine 0.80, Estimated Creat Clear 65, Estimated GFR 74, Est GFR ( Amer) 90, Glucose 187 H, Calcium 8.7, Total Bilirubin 0.4, AST 23, ALT 15, Alkaline Phosphatase 113, Troponin I < 0.01, NT-Pro-B Natriuret Pep 930 H, Total Protein 6.3, Albumin 3.1 L, Globulin 3.2, Albumin/Globulin Ratio 1.0 L, Procalcitonin 0.084 05/01/25 23:52: VBG pH 7.35, VBG pCO2 66.4 H, VBG pO2 39.9, VBG HCO3 36.0 H, VBG Total CO2 38.0 H, VBG O2 Saturation 71.1 H, VBG Base Excess 10.4 H, VBG Lactic Acid 2.1 H 05/02/25 00:05: TSH 6.05 H, Free T4 1.11 05/02/25 00:30: Urine Color Yellow, Urine Appearance Clear, Urine pH 6.0, Ur Specific Stacy >= 1.030, Urine Protein Trace, Urine Glucose (UA) Negative, Urine Ketones Negative, Urine Blood 1+ A, Urine Nitrate Negative, Urine Bilirubin Negative, Urine Urobilinogen 0.2, Ur Leukocyte Esterase Negative, Urine RBC 5-10, Ur Squamous Epith Cells 5-10, Urine Bacteria Trace 05/02/25 00:41: Chlamy pneumoniae PCR Not detected, Adenovirus (PCR) Not detected, B. pertussis DNA (PCR) Not detected, Coronavirus OC43 (PCR) Not detected, Coronavirus HKU1 (PCR) Not detected, Coronavirus 229E (PCR) Not detected, SARS-CoV-2 (PCR) Not detected, Coronavirus NL63 (PCR) Not detected, Human Metapneumovir PCR Not detected, Influenza A (H1) PCR Not detected, Influ A (H1N1/09) PCR Not detected, Influenza A (H3) PCR Not detected, Influenza Type A (PCR) Not detected, Influenza Type B (PCR) Not detected, M. pneumoniae (PCR) Not detected, Parainfluenza 1 (PCR) Not detected, Parainfluenza 2 (PCR) Not detected, Parainfluenza 3 (PCR) Not detected, Parainfluenza 4 (PCR) Not detected, RSV (PCR) Not detected, Entero/Rhino (PCR) Not detected 05/02/25 03:49: Troponin I < 0.01 05/02/25 04:58: WBC 9.2, RBC 3.65 L, Hgb 7.6 L, Hct 28.6 L, MCV 78.4 L, MCH 20.8 L, MCHC 26.6 L, RDW 19.6 H, Plt Count 370, MPV 10.0, Neut % (Auto) 72.8, Lymph % (Auto) 17.6, Pecos % (Auto) 6.4, Eos % (Auto) 2.1, Baso % (Auto) 0.4, Neut # (Auto) 6.7, Lymph # (Auto) 1.6, Pecos # (Auto) 0.6, Eos # (Auto) 0.2, Baso # (Auto) 0.0, Sodium 136, Potassium 4.0, Chloride 91 L, Carbon Dioxide 42 H*, Anion Gap 7.0, BUN 8, Creatinine 0.80, Estimated Creat Clear 65, Estimated GFR 74, Est GFR ( Amer) 90, Glucose 141 H D, Lactate 1.7, Calcium 8.6 05/02/25 06:30: VBG pH 7.43 H, VBG pCO2 51.4 H, VBG pO2 88.9 H, VBG HCO3 33.3 H, VBG Total CO2 34.9 H, VBG O2 Saturation 96.2 H, VBG Base Excess 8.9 H, VBG Lactic Acid 1.6, Troponin I < 0.01 I & O for Last 24 hours: Intake & Output 04/29/25 04/30/25 05/01/25 05/02/25 23:59 23:59 23:59 23:59 Intake Total 860 / 860 Output Total 2875 / 2875 Balance -2014 / Weight 425 lb 447 lb 8.614 oz Constitutional Constitutional: no acute distress and morbidly obese *Routine HEENT Exam Head: Present normocephalic and atraumatic ENT: Present mucous membranes moist *Routine Neck Exam Neck: Present supple, full ROM and normal carotid upstroke; Absent JVD, carotid bruit or lymphadenopathy *Routine Respiratory Exam Respiratory: Present CTA bilaterally, normal respiratory effort, able to speak in complete sentences and symmetric chest movement *Routine Cardiovascular Exam Cardiovascular: Present RRR, Normal S1 and Normal S2; Absent murmur or gallop *Routine Abdominal Exam Abdominal: Present soft and normoactive bowel sounds; Absent tenderness, distended or organomegaly *Routine Extremities Exam Extremities: Present edema, full ROM, pulses intact and normal capillary refill; Absent cyanosis or clubbing *Routine Skin Exam Skin: Present intact and warm; Absent erythema *Routine Neurological Exam Neurological: Present alert, oriented X3 and CN II-XII intact; Absent sensory deficit or motor deficit Routine Psychiatric Exam Psychiatric: Present normal affect Meds Home Medications and Allergies Home Medications ?Medication ?Instructions ?Recorded ?Confirmed ?Type calcium carbonate (Calcium 600) 600 mg PO DAILY 10/03/23 05/02/25 History cholecalciferol (vitamin D3) 1,250 1,250 mcg PO WEEKLY #12 caps 05/26/24 05/02/25 Rx mcg (50,000 unit) capsule fluticasone fur. 100 mcg-umeclid 1 inh inhalation DAILY 09/24/24 05/02/25 History 62.5 mcg-vilant 25 mcg inhalat.powder (Trelegy Ellipta) evolocumab 140 mg/mL subcutaneous 140 mg SQ Q2W #2 mL 11/24/24 05/02/25 Rx pen injector (Meli Dowling) albuterol sulfate 90 mcg/actuation 2 puff inhalation Q4HP PRN 12/07/24 05/02/25 History aerosol inhaler Shortness Of Breath spironolactone 100 mg tablet 100 mg PO DAILY #90 tabs 12/23/24 05/02/25 Rx aspirin 81 mg tablet,delayed 81 mg PO DAILY 03/10/25 05/02/25 History release atorvastatin 40 mg tablet 40 mg PO HS 03/10/25 05/02/25 History cyanocobalamin (vitamin B-12) 1,000 mcg PO DAILY 03/10/25 05/02/25 History 1,000 mcg tablet ipratropium 0.5 mg-albuterol 3 mg 3 ml inhalation QIDP PRN Shortness 03/10/25 05/02/25 History (2.5 mg base)/3 mL nebulization Of Breath soln levothyroxine 150 mcg tablet 300 mcg PO DAILY 03/10/25 05/02/25 History ondansetron 4 mg disintegrating 4 mg PO Q8HP PRN Nausea And 03/10/25 05/02/25 History tablet Vomiting trazodone 150 mg tablet 300 mg PO HS 03/10/25 05/02/25 History chlorhexidine gluconate 0.12 % See Rx Instructions .Route .COMPLEX 03/21/25 05/02/25 History mouthwash pregabalin 75 mg capsule 75 mg PO BID #60 caps 04/19/25 05/02/25 Rx lancets (Accu-Chek Softclix #200 ea 04/24/25 05/02/25 Rx Lancets) bupropion HCl 200 mg tablet,12 hr 200 mg PO BID #180 ea 05/01/25 05/02/25 Rx sustained-release metformin 500 mg tablet 500 mg PO BID 05/02/25 05/02/25 History metolazone 5 mg tablet 5 mg PO BID 05/02/25 05/02/25 History ropinirole 4 mg tablet 4 mg PO DAILY 05/02/25 05/02/25 History semaglutide 1 mg/dose (4 mg/3 mL) 1 mg SQ WEEKLY 05/02/25 05/02/25 History subcutaneous pen injector (Ozempic) torsemide 20 mg tablet 40 mg PO BID 05/02/25 05/02/25 History New Prescriptions to Start Prescriptions: Allergies Allergy/AdvReac Type Severity Reaction Status Date / Time adhesive tape (ADHESIVE TAPE) Allergy Unknown Blister Verified 03/31/25 13:02 hydromorphone (From DILAUDID) Allergy Unknown Hypotension Verified 03/31/25 13:02 nickel (NICKEL) Allergy Unknown Blister Verified 03/31/25 13:02 Assessment and Plan *Assessment and plan (1) Acute on chronic heart failure with preserved ejection fraction (HFpEF): Status: Acute Category: Medical Code(s): I50.33 - Acute on chronic diastolic (congestive) heart failure (2) Volume overload: Status: Acute Qualifiers: Hypervolemia type: unspecified Qualified Code(s): E87.70 - Fluid overload, unspecified Category: Medical Code(s): E87.70 - Fluid overload, unspecified (3) Morbid obesity: Status: Acute Category: Medical Code(s): E66.01 - Morbid (severe) obesity due to excess calories (4) Acute and chronic respiratory failure with hypoxia: Status: Acute Category: Medical Code(s): J96.21 - Acute and chronic respiratory failure with hypoxia (5) Anemia: Status: Acute Qualifiers: Anemia type: unspecified type Qualified Code(s): D64.9 - Anemia, unspecified Category: Medical Code(s): D64.9 - Anemia, unspecified (6) HLD (hyperlipidemia): Status: Acute Qualifiers: Hyperlipidemia type: mixed hyperlipidemia Qualified Code(s): E78.2 - Mixed hyperlipidemia Category: Medical Code(s): E78.5 - Hyperlipidemia, unspecified (7) Elevated left ventricular end-diastolic pressure (LVEDP): Status: Acute Category: Medical Code(s): R94.30 - Abnormal result of cardiovascular function study, unspecified (8) HONEY (obstructive sleep apnea): Status: Acute Category: Medical Code(s): G47.33 - Obstructive sleep apnea (adult) (pediatric) (9) HTN (hypertension): Status: Acute Qualifiers: Hypertension type: unspecified Qualified Code(s): I10 - Essential (primary) hypertension Category: Medical Code(s): I10 - Essential (primary) hypertension (10) COPD (chronic obstructive pulmonary disease): Status: Acute Qualifiers: COPD type: unspecified COPD Qualified Code(s): J44.9 - Chronic obstructive pulmonary disease, unspecified Category: Medical Code(s): J44.9 - Chronic obstructive pulmonary disease, unspecified (11) Presence of cardiac pacemaker: Status: Acute Category: Medical Code(s): Z95.0 - Presence of cardiac pacemaker Plan Plan: 1. The patient was admitted to the hospital and found to have acute on chronic HFpEF. Her BNP was elevated on admission and pulmonary edema on chest x-ray s. She is also being treated for acute on chronic respiratory failure with hypoxemia and profound anemia. The patient is currently being diuresed with Bumex 2 mg IV twice daily for her HFpEF. Will continue this at this time. 2. Continue spironolactone 100 mg daily for diuresis as well. 3. When the patient is euvolemic consider Jardiance or Farxiga. 4. The patient does have acute on chronic respiratory failure with hypoxemia. She is currently on BiPAP. Will defer to the hospital and/or pulmonology. We do recommend pulmonology consult on this patient. 5. Her blood pressure is well-controlled. 6. Her LDL goal is less than 100. Will get a lipid panel in the morning. 7. She did have an elevated D-dimer. She would likely benefit from a CTA of the chest but we will leave this up to the hospitalist. 8. The patient ruled out for an MD. No plans for invasive left cardiac catheterization at this time. 9. Will obtain an echocardiogram to evaluate her LV function and RV function. 10. Weight loss is highly encouraged. 11. The patient has a history of symptomatic Mobitz 2 status post pacemaker placement. She did have her atrial lead revised in December of this year. 12. Further recommendations will be made pending the patient's response to treatment and results of her echocardiogram. Thank you for the opportunity to help participate in the care of this patient. All recommendations and orders are per Dr. Mann.
--- NOTE | 2025-05-02 10:05 | HMH.PTEV ---
Physical Therapy Evaluation Rehab PT IP Evaluation Start: 05/02/25 03:24 Freq: ONCE Status: Active Protocol: Document 05/02/25 09:06 DENISE (Rec: 05/02/25 10:05 DENISE [id number]) Subjective/History History History Per H&P: This is a 54-year-old female with a past medical history of HFpEF, morbid obesity, Mobitz type II with pacemaker in situ, T2DM, HONEY, hypothyroidism who presents emergency department today with complaints of shortness of breath.? Reports compliance with her home 2 L nasal cannula but had increased work of breathing and shortness of breath over the last several days.? She reports being seen in the emergency department 3 days ago and discharged home but has been feeling worse since then.? EMS was called to the home and she was noted to have oxygen saturations of 88% after? patient increased her home oxygen to 5 L.? She endorses more frequent use of her inhaler today.? She states noncompliance with her home diuretic secondary to immobility and getting to the restroom.? She denies fever, chills, vomiting, diarrhea. Emergency department workup notable for CO2 of 66 with a pH of 7.35, BNP of 930, lactic acid of 2.1.She did require Vapotherm for continued hypoxia and increased work of breathing. Given her acute on chronic respiratory failure it was felt she would benefit from hospitalization and IV diuresis. She is admitted to the hospitalist service at this time Subjective Subjective Pt reports she lives in a home (mobile home) with family. Pt normally uses a w/c for mobility. Pt normally able to perform bed mobility but requires family's assistance for OOB activity/transfers. New diagnosis of No cancer in past 12 months? [facility] How much help from another person do you currently need... Turning from your A lot back to your side while in a flat bed without using bedrails? Moving from lying on A lot back to sitting on the side of a flat bed without using bedrails? Moving to and from a A lot bed to a chair ( including a wheelchair)? Standing up from a Total chair using your arms? (e.g., wheelchair, bedside chair) Walking in hospital Total room? Climbing 3-5 steps Total with a railing? Mobility Score 9 Mobility Level [facility] Mobility 3 Sit at edge of bed Mobility Calculator Rehab PT IP Eval Objective Appearance Patient Behavior Appropriate,Cooperative Patient Orientation Person,Situation Difficulty following none instructions Speech Pattern Clear Ambulation Patient Able to No Ambulate Balance Ability to Arise Unable Transfers Bed Transfer Ability Maximum x 2 (75% assist) Rehab PT IP prob,goals,plan Problems Date of Evaluation: 05/02/25 PT IP Problems Bed Mobility,Transfers,Gait,Balance,Self care,Safety Rehab Potential Rehab Potential Good Plan PT Intervention Plan Bed Mobility,Transfers,Gait,Balance,Self care,Safety, Therapeutic Exercise Other Intervention 1-2 times Plan PT Plan Frequency Daily Duration LOS Discharge Goals Bed Transfer Ability Moderate x 2 (50% assist) Sit to Stand Chair Maximum x 2 (75% assist) Transfer Ability Discharge Plan PT Discharge Plan Initial physical therapy evaluation performed. Patient presents below baseline at this time in functional mobility, transfers, and strength. Pt not safe to return home at this time d/t current level of functional mobility. PT recommending inpatient rehabilitation facility (IRF) placement upon d/c from [facility]. Pt would benefit from skilled PT while at [facility] to prevent further functional decline and maximize safety with mobility. Eval Complexity Eval Charge Codes 68934 - Moderate Complexity PHYSICIAN CERTIFICATION: I certify the specified therapy services for Stacey George are required, authorized, and reviewed every 30 days.
--- NOTE | 2025-05-02 10:15 | CA_ITS ---
APPROVED REPORT EXAM: Limited 2D Echocardiogram with contrast Transportation Driver: Soco Coates RDCS Ht: 5 ft 3 in Wt: 447lbs BSA: 2.72 BP: 128/83 mmHg Indications: DEFINITY Other Information Study Quality: Technically Difficult Conclusion This is a limited TTE to evaluate for LV systolic function. Limited windows were obtained. Ultrasound enhancing agent is administered to better delineate the LV endocardial borders. The left ventricle is normal in size. There is increased LV wall thickness. There is mild global hypokinesis present. There is moderate hypokinesis of the septal and inferoseptal LV nichole. The septum is asynchronous. LVEF is 40-45%. Compared to prior study from 12/26/2024, the LV systolic function is overall unchanged. Electronically signed by : Cnadice Mann MD 05/02/2025 12:25:53
--- NOTE | 2025-05-02 10:20 | SW/DCPLANNER ---
Addendum entered by Juanita Birch 05/03/25 13:42: Patient continues to refuse placement at this time but is agreeable to home health services. CM will continue to follow up. Original Note: I spoke w/ this patient regarding plans once medically stable for discharge. PT evaluated patient and recommended SNF level of care. Patient stated that placement was attempted during a past hospitalization in [place] but unable to obtain. I explained to patient that I would be willing to attempt to place her locally or in surrounding counties. Patient continues to refuse placement at this time but is agreeable to home health services. Patient stated that she resides at home w/ her adult children and uses a wheelcahir at home. CM will continue to follow up w/ this patient. Discharge date is unknown at this time.
--- NOTE | 2025-05-02 10:42 | HMH.PTWOUND ---
Rehab Wound Evaluation Rehab IP Wound Evaluation Start: 05/02/25 05:02 Freq: ONCE Status: Active Protocol: Document 05/02/25 10:30 DENISE (Rec: 05/02/25 10:42 DENISE [id number]) Rehab PT Wound Assessment Subjective Subjective Per H&P: This is a 54-year-old female with a past medical history of HFpEF, morbid obesity, Mobitz type II with pacemaker in situ, T2DM, HONEY, hypothyroidism who presents emergency department today with complaints of shortness of breath.? Reports compliance with her home 2 L nasal cannula but had increased work of breathing and shortness of breath over the last several days.? She reports being seen in the emergency department 3 days ago and discharged home but has been feeling worse since then.? EMS was called to the home and she was noted to have oxygen saturations of 88% after? patient increased her home oxygen to 5 L.? She endorses more frequent use of her inhaler today.? She states noncompliance with her home diuretic secondary to immobility and getting to the restroom.? She denies fever, chills, vomiting, diarrhea. Pt reports: I have had this wound for months, I think it was a boil Wound Right Upper Buttock Wound Length (cm) 0.9 Wound Width (cm) 0.7 Wound Depth (cm) 0.2 Wound Bed Appearance [place],Yellow Wound Margins Well Defined Description Surrounding Tissue [place],Purple Appearance Wound Drainage Sanguineous,Purulent Description Drainage Amount Small Dressing Status Changed Wound Topical Saline Irrigant Solution/Irrigant Primary Dressing Composite Plan/Recommendation Comment Pt presented with a small open wound (0.9cmx0.7cmx0.2cm ) on her sacral area that presented with small-moderate purulent drainage. Pt reports she has had this wound for months and denies receiving any wound therapy for this particular spot. PT irrigated wound with saline and dressed wound in boarded foam dressing. Nursing to continue dressing changes prn and perform pressure relief per protocol to prevent further skin breakdown. Eval Complexity Eval Charge Codes 18538 - Moderate Complexity PHYSICIAN CERTIFICATION: I certify the specified therapy services for Stacey George are required, authorized, and reviewed every 30 days.
--- NOTE | 2025-05-02 10:43 | HMH.OTEV ---
OT Evaluation Rehab OT IP Evaluation Start: 05/02/25 03:24 Freq: ONCE Status: Active Protocol: [facility]02[facility]25 10:38 [email or web address] (Rec: 05/02/25 10:42 [facility] [id number]) Rehab OT IP Assessment Subjective History Pt oriented x 3 on arrival. Pt agreeable to engage in therapy evaluation; pt on bipap so limited evaluation completed due to respiratory needs. Pt admitted on due to respiratory failure. Per H&P: This is a 54-year-old female with a past medical history of HFpEF, morbid obesity, Mobitz type II with pacemaker in situ, T2DM, HONEY, hypothyroidism who presents emergency department today with complaints of shortness of breath.? Reports compliance with her home 2 L nasal cannula but had increased work of breathing and shortness of breath over the last several days.? She reports being seen in the emergency department 3 days ago and discharged home but has been feeling worse since then.? EMS was called to the home and she was noted to have oxygen saturations of 88% after? patient increased her home oxygen to 5 L.? She endorses more frequent use of her inhaler today.? She states noncompliance with her home diuretic secondary to immobility and getting to the restroom.? She denies fever, chills, vomiting, diarrhea. Emergency department workup notable for CO2 of 66 with a pH of 7.35, BNP of 930, lactic acid of 2.1.She did require Vapotherm for continued hypoxia and increased work of breathing. Given her acute on chronic respiratory failure it was felt she would benefit from hospitalization and IV diuresis. She is admitted to the hospitalist service at this time Subjective Pt reports she lives in a home (mobile home) with her 2 sons and DIL. Pt normally uses a w/c for functional transfers. Pt normally able to perform bed mobility but requires family's assistance for OOB activity/transfers to and from wheelchair. Pt claims she is normally independent with all ADLs, but requires assistance with showering transfers. She is dependent upon family for completion of all IADLs. She no longer drives. Objective Patient Orientation Person,Place,Birthday Right Upper Min Limitation <25% Extremity Gross ROM Left Upper Extremity Min Limitation <25% Gross ROM Shoulder ROM Muscle Weakness Limitations Elbow ROM Muscle Weakness Limitations Wrist Limitations of Muscle Weakness Range of Motion Bed Mobility bed mobility-scooting,bed mobility - rolling Assist Level Maximum x 2 (75% assist) Rehab OT IP prob,goals,plan Problems Date of Evaluation: 05/02/25 OT IP Problems Bed Mobility,Transfers,Balance,Self care,Safety Rehab Potential Rehab Potential Good Equipment Needs Assistive Devices Wheelchair Plan OT intervention Plan Bed Mobility,Transfers,Balance,Self care,Safety, Therapeutic Exercise OT Plan Frequency Daily Duration LOS Discharge Goals Bed Mobility Ability Assistance x1 Sit to Stand Chair Maximum x 2 (75% assist) Transfer Ability Chair Transfer Maximum x 2 (75% assist) Ability Chair Transfer Stand Pivot Technique Lower Body Dressing Maximum Assistance Ability Upper Body Dressing Moderate Assistance Ability Performing Toilet Maximum Assistance Hygiene Ability Overall Commode/ Maximum Assistance Toilet Transfer Ability Commode/Toilet Stand Pivot Transfer Technique Discharge Plan OT Discharge Plan Pt will continue to be seen for OT services while at [facility]. Pt would benefit most from short term rehab at SNF following discharge from hospital. Continued skilled therapy is important in order for patient to improve strength, safety, endurance, ADL independence, and functional transfers to reach PLOF. Eval Complexity Eval Charge Codes 43416 - Moderate Complexity PHYSICIAN CERTIFICATION: I certify the specified therapy services for Stacey George are required, authorized, and reviewed every 30 days.
[2025-05-02] MEDS: FLUTICASONE/UMECLIDIN/VILANTER 100/62.5/25MCG INHALER 1 PUFF IH (10:59)
[2025-05-02 11:13] LABS: POC Glucose,Bedside 176 gm/dL (70-110)
[2025-05-02] MEDS: humaLOG 100 UNITS/ML 10ML VIAL (SSI) SUBCUT ×2 (11:14→16:19)
--- NOTE | 2025-05-02 13:17 | ECG_ITS ---
APPROVED REPORT Exam: Resting ECG HR:77 bpm ECG Measurements Heart Rate 77 AXES KS 207 P 64 QRSd 144 QRS -46 QT 388 T 98 QTc 420 Conclusion SINUS RHYTHM LEFT AXIS DEVIATION [QRS AXIS < -30] INTRAVENTRICULAR CONDUCTION DELAY [130+ ms QRS DURATION] LEFT VENTRICULAR HYPERTROPHY AND ST-T CHANGE [VOLTAGE CRITERIA PLUS ST/T ABNORMALITY] POSSIBLE SEPTAL MYOCARDIAL INFARCTION , OF INDETERMINATE AGE [30 ms Q WAVE IN V1/V2] ABNORMAL ECG UNCONFIRMED REPORT Electronically signed by : Fabrizio Rosales MD 05/02/2025 15:54:03
--- NOTE | 2025-05-02 13:20 | PC.NURSE ---
pt called out stating she was having chest pain, gave PRN meds ordered EKG and called Natale[facility], awaiting new orders
[2025-05-02] MEDS: NITROGLYCERIN 1 GM OINTMENT TD (13:24)
[2025-05-02 16:20] LABS: POC Glucose,Bedside 174 gm/dL (70-110)
--- NOTE | 2025-05-02 16:48 | PC.NURSE ---
pt resting in bed, switched back and forth fro bipap to NC 2L today, complaints of chest and stomach pain today, PRN given, call light in reach
[2025-05-02] MEDS: MORPHINE 2MG/ML SYRINGE 1 MG IV (20:33)
[2025-05-02] MEDS: ATORVASTATIN 40MG TABLET 40 MG PO (20:33)
[2025-05-02 20:50] LABS: POC Glucose,Bedside 141 gm/dL (70-110)
[2025-05-03] VITALS (13 sets, daily range): BP systolic 112–133; BP diastolic 60–73; PULSE 60–80; RESP 16–22; TEMP 36.6–36.9; O2SAT 90–98; BMI 63.2
[2025-05-03] MEDS: NYSTATIN TOPICAL POWDER 30GM TP ×3 (00:45→21:32)
[2025-05-03] MEDS: FLUTICASONE/UMECLIDIN/VILANTER 100/62.5/25MCG INHALER 1 PUFF IH (06:06)
[2025-05-03] MEDS: LEVOTHYROXINE 150MCG (0.15MG)TAB 300 MCG PO (06:17)
[2025-05-03] MEDS: humaLOG 100 UNITS/ML 10ML VIAL (SSI) SUBCUT (06:24)
[2025-05-03 06:26] LABS: POC Glucose,Bedside 158 gm/dL (70-110)
[2025-05-03 06:34] LABS: Hematocrit 29.0 % (37.0-47.0); Hemoglobin 7.9 g/dL (12.2-16.2); Immature Granulocytes % 0.8 %; Mean Corpuscular HGB Conc 27.2 g/dL (31.8-35.4); Mean Corpuscular Hemoglobin 20.8 pg (27.0-31.2); Mean Corpuscular Volume 76.3 fl (81-99); Nucleated Red Blood Cells % 0.3 %; Platelet Count 376 K/mm3 (142-424); Red Blood Count 3.80 M/mm3 (4.20-5.40); Red Cell Distribution Width-SD 53.8 fL; White Blood Count 10.0 K/mm3 (4.8-10.8)
[2025-05-03 06:48] LABS: Albumin Level 3.2 g/dl (3.5-5.0); Chloride 89 mmol/L (98-107)
[2025-05-03 06:49] LABS: Potassium 4.1 mmoL/L (3.5-5.1); Sodium 133 mmol/L (136-145)
[2025-05-03 06:51] LABS: Alanine Aminotransferase 14 U/L (12-78); Albumin/Globulin Ratio 0.9 (1.1-1.8); Anion Gap 9.1 mEq/L (5-15); Aspartate Amino Transferase 20 U/L (14-36); Blood Urea Nitrogen 13 mg/dl (7-17); Carbon Dioxide 39 mmol/L (22.0-30.0); Creatinine Clearance Estimated 55 mL/min (50-200); Creatinine,Serum 0.90 mg/dl (0.52-1.04); Estimated Glomerular Filt Rate 65 ml/min (>60); GFR (African American) 78 ML/MIN (>60); Globulin 3.4 g/dL (1.3-3.2); Total Protein,Serum 6.6 g/dl (6.3-8.2)
[2025-05-03 06:52] LABS: Alkaline Phosphatase 120 U/L (38-126); Bilirubin,Total 0.3 mg/dl (0.2-1.3); Calcium 8.9 mg/dl (8.4-10.2); Glucose 133 mg/dl (74-100); Magnesium 1.7 mg/dl (1.6-2.3)
[2025-05-03 06:55] LABS: Cholesterol 169 mg/dl (140-200); Triglycerides 139 mg/dl (30-150)
[2025-05-03 06:56] LABS: HDL Cholesterol 35 mg/dl (40-60)
--- NOTE | 2025-05-03 07:28 | EXP.ACUTE.PN ---
Subjective *Date: 05/03/25 *Time: 18:24 Interval history: Feeling somewhat better. Having good response to diuresis. Stable on 2 L. No fever overnight. Medical Exam Vital signs and Labs for Last 24 Hours: Vital Signs Temp Pulse Pulse Pulse Resp BP Pulse Ox 05/03/25 06:40 05/03/25 06:07 92 L 05/03/25 05:00 05/03/25 04:00 70 05/03/25 03:45 98.1 F 74 18 117/60 93 L 05/03/25 03:00 05/03/25 01:00 05/03/25 00:00 98.4 F 70 18 113/62 93 L 05/02/25 23:54 05/02/25 23:00 05/02/25 21:00 05/02/25 20:00 05/02/25 20:00 98.4 F 73 18 135/51 L 94 L 05/02/25 19:00 05/02/25 18:34 05/02/25 16:00 70 05/02/25 16:00 98.2 F 72 18 116/59 L 95 05/02/25 14:08 05/02/25 13:09 77 20 116/52 L 95 05/02/25 12:23 05/02/25 12:00 98.5 F 76 18 130/66 95 05/02/25 11:00 96 05/02/25 09:00 92 L 05/02/25 09:00 05/02/25 09:00 05/02/25 08:00 70 05/02/25 08:00 98.4 F 87 18 116/75 93 L 05/02/25 07:46 O2 Del Method O2 Flow Rate FiO2 05/03/25 06:40 Nasal Cannula 2 05/03/25 06:07 Nasal Cannula 2 28 05/03/25 05:00 Nasal Cannula 2 05/03/25 04:00 05/03/25 03:45 Nasal Cannula 2 05/03/25 03:00 BiPAP 05/03/25 01:00 Nasal Cannula 2 05/03/25 00:00 Nasal Cannula 2 05/02/25 23:54 35 05/02/25 23:00 BiPAP 05/02/25 21:00 Nasal Cannula 2 05/02/25 20:00 Nasal Cannula 2 05/02/25 20:00 2 05/02/25 19:00 Nasal Cannula 3 32 05/02/25 18:34 Nasal Cannula 2 05/02/25 16:00 05/02/25 16:00 Nasal Cannula 2 05/02/25 14:08 BiPAP 05/02/25 13:09 Nasal Cannula 2 05/02/25 12:23 Nasal Cannula 2 05/02/25 12:00 Nasal Cannula 2 05/02/25 11:00 Nasal Cannula 3 05/02/25 09:00 BiPAP 35 05/02/25 09:00 35 05/02/25 09:00 Nasal Cannula 2.5 05/02/25 08:00 05/02/25 08:00 Nasal Cannula 3 05/02/25 07:46 Nasal Cannula 2.5 Intake and Output 05/02/25 05/02/25 05/03/25 15:59 23:59 07:59 Intake Total 1340 / 3205 1510 / 3205 595 / 595 Output Total 1700 / 6675 2500 / 6675 850 / 850 Balance -360 / -3470 -990 / -3470 -255 / -255 Intake: Intake, Oral Amount 1340 / 3205 1510 / 3205 595 / 595 Output: Output, Urine Amount 1700 / 4800 1000 / 4800 850 / 850 Output, Urine Amount (Catheter) 1500 / 1875 Hernández 1500 / 1875 Other: Number of Unmeasured Voids 0 0 0 Weight 203 kg 161.842 kg Patient Weight 05/03/25 23:59 Weight 161.842 kg Laboratory Results - last 24 hr 05/02/25 11:05: POC Glucose 176 H 05/02/25 16:14: POC Glucose 174 H 05/02/25 20:41: POC Glucose 141 H 05/03/25 05:49: WBC 10.0, RBC 3.80 L, Hgb 7.9 L, Hct 29.0 L, MCV 76.3 L, MCH 20.8 L, MCHC 27.2 L, RDW 19.6 H, Plt Count 376, MPV 9.8, Neut % (Auto) 67.6, Lymph % (Auto) 22.8, [place] % (Auto) 6.0, Eos % (Auto) 2.3, Baso % (Auto) 0.5, Neut # (Auto) 6.7, Lymph # (Auto) 2.3, [place] # (Auto) 0.6, Eos # (Auto) 0.2, Baso # (Auto) 0.1 05/03/25 06:19: POC Glucose 158 H I & O for Labs for Last 24 Hours: Intake & Output 04/30/25 05/01/25 05/02/25 05/03/25 23:59 23:59 23:59 23:59 Intake Total 2850 / 3205 595 / 595 Output Total 6675 / 6675 850 / 850 Balance -3825 / -3470 -255 / -255 Weight 192.777 kg 203 kg 161.842 kg Microbiology Reports for the Last 24 Hours: Microbiology 05/02/25 00:05 Blood Blood Culture - Preliminary NO GROWTH AFTER 24 HOURS 05/02/25 00:05 Blood Blood Culture - Preliminary NO GROWTH AFTER 24 HOURS Constitutional: Present mild distress, morbidly obese, chronically ill appearing and cooperative Head: Present normocephalic Eyes: Absent eye pain or eye discharge ENT: Present normal exam Neck: Present normal inspection Respiratory: Present distant breath sounds and able to speak in complete sentences Cardiac: Present Reg Rate and Rhythm; Absent No Murmur GI: Present soft and normal bowel sounds; Absent distention or tenderness Rectal (female): Present deferred Extremities: Present edema Skin: Present intact Neuro: Present Grossly Intact, alert, awake, oriented x 3 and moves all extremities Assessment and Plan *Assessment and plan (1) Morbid obesity with body mass index (BMI) greater than or equal to 70 in adult: Status: Acute Category: Medical Code(s): E66.01 - Morbid (severe) obesity due to excess calories; Z68.45 - Body mass index [BMI] 70 or greater, adult (2) Volume overload: Status: Acute Category: Medical Code(s): E87.70 - Fluid overload, unspecified (3) Acute and chronic respiratory failure with hypoxia: Status: Acute Category: Medical Code(s): J96.21 - Acute and chronic respiratory failure with hypoxia (4) Morbid obesity: Status: Acute Category: Medical Code(s): E66.01 - Morbid (severe) obesity due to excess calories (5) Hypothyroidism: Status: Acute Qualifiers: Hypothyroidism type: unspecified Qualified Code(s): E03.9 - Hypothyroidism, unspecified Category: Medical Code(s): E03.9 - Hypothyroidism, unspecified (6) HONEY (obstructive sleep apnea): Status: Acute Category: Medical Code(s): G47.33 - Obstructive sleep apnea (adult) (pediatric) Plan Morbidly obese female with heart failure who presents with exacerbation. Admitted for diuresis. Cardiology assisting with care. Continues to require patient management. Problems addressed as follows: #Acute on chronic respiratory failure with hypoxia Baseline home O2 2 L, now requiring Vapotherm at 10 L. Increased work of breathing on arrival with tachypnea noted with respiratory rate of 24 Reports noncompliance with home diuretic regimen Continue to wean oxygen as tolerated Continue IV diuresis D-dimer elevated but has been elevated the past several admissions. Had CT PE scan 3 days ago with negative result. Will defer further CT scans at this time. Patient placed on increased dosing of DVT PPx. #Acute on chronic diastolic heart failure Elevated BNP of 930.? Chest x-ray with pulmonary edema noted Reports noncompliance with her diuretics secondary to immobility Continue IV diuresis with Bumex 2 mg IV daily as well as home spironolactone 100 mg daily and metolazone 5 mg twice daily Strict intake and output; -4 L so far since admission - Discussed case with cardiology, continue aggressive diuresis with Bumex 2 mg IV twice daily. Responding well. Consider Jardiance or Farxiga when patient euvolemic. - Discussed importance of diuresis to patient and risk of readmission if she does not take her diuretics at home. She has difficulty making it to the bathroom. Explained risks of leaving catheter in place due to risk of UTI and possible sepsis. Patient to think about if she would like catheter at discharge to comply with her diuretics or no catheter and continue to mobilize on her own to the bathroom - Kidney function stable with BUN 13, creatinine 0.9. Potassium 4.1. Magnesium 1.7. Will replace per protocol. Repeat CBC, CMP, magnesium ordered for the morning. #Mobitz type II heart block #Pacemaker in situ Recent transfer to [facility] for pacemaker lead changing Appears to be capturing at this time. Denies chest pain or palpitations Block appears different than prior EKG. Frankie consulted prior to admission given limitations to provide pacer maintenance 2/2 to pts weight. Okay with admit here, will interrogate pacer in AM #COPD without exacerbation Appears volume overloaded on exam.? Does not appear to be in COPD exacerbation. Suspect component of obesity hypoventilation. Continue supplemental oxygen as needed for goal sats greater 90%. Currently on 2 L. #Hypothyroidism Continue home levothyroxine, TSH 6.0 #Morbid obesity BMI > 75. Spoke at length with patient and patient's family regarding calorie intake. Family does have to cook and bring all foods to patient and educated them on appropriate caloric intake to aid in weight loss. Complicates all aspects of care Continue home GLP-1 dosing #Anxiety and depression Continue Wellbutrin 200 mg daily Continue trazodone 300 mg nightly DVT PPx Anemia, iron deficient. Will administer 200 mg Venofer x 1 today. Hemoglobin 7.9. White count 10.0. Lovenox 60 mg twice daily (BMI greater than 50) Regular diet Full code
[2025-05-03] MEDS: MORPHINE 2MG/ML SYRINGE 1 MG IV (08:13)
[2025-05-03] MEDS: BUMETANIDE 1MG/4ML VIAL 2 MG IV ×2 (08:14→16:55)
[2025-05-03] MEDS: ASPIRIN EC 81MG TABLET 81 MG PO (08:14)
[2025-05-03] MEDS: METOPROLOL TARTRATE 25MG TABLET 25 MG PO (08:14)
[2025-05-03] MEDS: ROPINIROLE 1MG TABLET 4 MG PO (08:15)
[2025-05-03] MEDS: SPIRONOLACTONE 25MG TABLET 100 MG PO (08:16)
--- NOTE | 2025-05-03 09:33 | SW/DCPLANNER ---
Addendum entered by Erin Clinton 05/08/25 08:06: [facility] was not able to accept patient. Faxed patient to [facility] and they were able to accept patient. Addendum entered by Erin Clinton 05/05/25 12:33: Spoke with patient again regarding home health services and if she had a preference in what agency i send her information to. Patient stated that i send her information to [facility]. I will update once i hear back. Lore Venegas Original Note: Spoke with patient regarding home health once she is medically stable and ready for discharge. Patient stated that she is not interested in home health at this time. Lore Venegas
[2025-05-03] MEDS: IRON SUCROSE COMPLEX 200 MG in 0.9 % SODIUM CHLORIDE 100 ML 220 MG IV (10:01)
[2025-05-03] MEDS: PREGABALIN 25MG CAPSULE 75 MG PO ×2 (10:02→21:31)
--- NOTE | 2025-05-03 10:05 | P.PN_ITS ---
Subjective Subjective Date: 05/03/25 Time: 09:00 Principal diagnosis: Acute on chronic HFpEF Interval history: This is a 54-year-old female presented to the emergency department with shortness of breath. Patient is currently being treated for an acute on chronic exacerbation of HFpEF. She is -3800 mL overnight. She remains on BiPAP this morning. She states her shortness of breath is improving, but still present. She states that she feels like she cannot breathe when she is off of BiPAP. She reports her edema has resolved. She denies any chest pain or pressure. She denies any fever, chills, nausea, vomiting or diarrhea. She still is complaining of orthopnea. Exam Data for Last 24 hours Vital signs and Labs for Last 24 Hours: Temp Pulse Resp BP Pulse Ox O2 Del Method O2 Flow Rate 98.1 F 69 18 133/73 98 Nasal Cannula 2 05/03/25 03:45 05/03/25 08:00 05/03/25 08:00 05/03/25 08:00 05/03/25 08:00 05/03/25 08:00 05/03/25 08:00 FiO2 28 05/03/25 06:07 Laboratory Results - last 24 hr 05/02/25 11:05: POC Glucose 176 H 05/02/25 16:14: POC Glucose 174 H 05/02/25 20:41: POC Glucose 141 H 05/03/25 05:49: WBC 10.0, RBC 3.80 L, Hgb 7.9 L, Hct 29.0 L, MCV 76.3 L, MCH 20.8 L, MCHC 27.2 L, RDW 19.6 H, Plt Count 376, MPV 9.8, Neut % (Auto) 67.6, Lymph % (Auto) 22.8, [place] % (Auto) 6.0, Eos % (Auto) 2.3, Baso % (Auto) 0.5, Neut # (Auto) 6.7, Lymph # (Auto) 2.3, [place] # (Auto) 0.6, Eos # (Auto) 0.2, Baso # (Auto) 0.1, Sodium 133 L, Potassium 4.1, Chloride 89 L, Carbon Dioxide 39 H, Anion Gap 9.1, BUN 13 D, Creatinine 0.90, Estimated Creat Clear 55, Estimated GFR 65, Est GFR ( Amer) 78, Glucose 133 H, Calcium 8.9, Magnesium 1.7, Total Bilirubin 0.3, AST 20, ALT 14, Alkaline Phosphatase 120, Total Protein 6.6, Albumin 3.2 L, Globulin 3.4 H, Albumin/Globulin Ratio 0.9 L, Triglycerides 139, Cholesterol 169, LDL Cholesterol Direct 99.13 L, VLDL Cholesterol 28, HDL Cholesterol 35 L, Cholesterol/HDL Ratio 4.8 H 05/03/25 06:19: POC Glucose 158 H I & O for Last 24 hours: Intake & Output 04/30/25 05/01/25 05/02/25 05/03/25 23:59 23:59 23:59 23:59 Intake Total 2850 / 3205 895 / 895 Output Total 6675 / 6675 850 / 850 Balance -3825 / -3470 45 / 45 Weight 425 lb 447 lb 8.614 oz 356 lb 12.8 oz Microbiology Reports for the Last 24 Hours: Microbiology 05/02/25 00:05 Blood Blood Culture - Preliminary NO GROWTH AFTER 24 HOURS 05/02/25 00:05 Blood Blood Culture - Preliminary NO GROWTH AFTER 24 HOURS Constitutional Constitutional: no acute distress and morbidly obese *Routine HEENT Exam Head: Present normocephalic and atraumatic ENT: Present mucous membranes moist *Routine Neck Exam Neck: Present supple, full ROM and normal carotid upstroke; Absent JVD, carotid bruit or lymphadenopathy *Routine Respiratory Exam Respiratory: Present CTA bilaterally, normal respiratory effort, able to speak in complete sentences and symmetric chest movement *Routine Cardiovascular Exam Cardiovascular: Present RRR, Normal S1 and Normal S2; Absent murmur or gallop *Routine Abdominal Exam Abdominal: Present soft and normoactive bowel sounds; Absent tenderness, distended or organomegaly *Routine Extremities Exam Extremities: Present full ROM, pulses intact and normal capillary refill; Absent cyanosis, clubbing or edema *Routine Skin Exam Skin: Present intact and warm; Absent erythema *Routine Neurological Exam Neurological: Present alert, oriented X3 and CN II-XII intact; Absent sensory deficit or motor deficit Routine Psychiatric Exam Psychiatric: Present normal affect Progress Note: A&P Assessment and plan (1) Acute on chronic heart failure with preserved ejection fraction (HFpEF): Status: Acute (2) Volume overload: Status: Acute (3) Morbid obesity: Status: Acute (4) Acute and chronic respiratory failure with hypoxia: Status: Acute (5) Anemia: Status: Acute (6) HLD (hyperlipidemia): Status: Acute (7) Elevated left ventricular end-diastolic pressure (LVEDP): Status: Acute (8) HONEY (obstructive sleep apnea): Status: Acute (9) HTN (hypertension): Status: Acute (10) COPD (chronic obstructive pulmonary disease): Status: Acute (11) Presence of cardiac pacemaker: Status: Acute Assessment and Plan Assessment and Plan for All Diagnoses:: Plan: 1. The patient was admitted to the hospital and found to have acute on chronic HFpEF. Her BNP was elevated on admission and pulmonary edema on chest x-ray s. Will continue to diurese her with Bumex 2 mg IV twice daily. 2. Continue spironolactone 100 mg daily for diuresis as well. 3. When the patient is euvolemic consider Jardiance or Farxiga. However, she does have frequent UTIs which may limit the use of SGLT2 inhibitors. 4. The patient does have acute on chronic respiratory failure with hypoxemia. She is currently on BiPAP. Will defer to the hospital and/or pulmonology. 5. Her blood pressure is well-controlled. 6. Her LDL goal is less than 100. Her LDL is 99. 7. She did have an elevated D-dimer. She would likely benefit from a CTA of the chest but we will leave this up to the hospitalist. 8. The patient ruled out for an CA. No plans for invasive left cardiac catheterization at this time. She would benefit from an outpatient ischemic evaluation once she is discharged from the hospital. 9. Echo shows EF of 40 to 45%. There is mild global hypokinesis. Moderate hypokinesis of the septal and inferior septal nichole. Compared to prior study from December 2024 it is overall unchanged. 10. Weight loss is highly encouraged. 11. The patient has a history of symptomatic Mobitz 2 status post pacemaker placement. She did have her atrial lead revised in December of this year. 12. Further recommendations will be made pending the patient's response to treatment. Thank you for the opportunity to help participate in the care of this patient. All recommendations and orders are per Dr. Mann.
[2025-05-03 12:34] LABS: POC Glucose,Bedside 154 gm/dL (70-110)
--- NOTE | 2025-05-03 16:29 | PC.NURSE ---
patient refused PT earlier in the shift but decided later that she would like to get up and walk, called physical therapy to assist with patient ambulation. patient Q2 turn. c/o generalized pain at the start of my shift, pain treated per SEP.
[2025-05-03 21:06] LABS: POC Glucose,Bedside 129 gm/dL (70-110)
[2025-05-03] MEDS: ATORVASTATIN 40MG TABLET 40 MG PO (21:31)
[2025-05-04] VITALS (9 sets, daily range): BP systolic 105–132; BP diastolic 48–72; PULSE 60–84; RESP 16–24; TEMP 36.7–37.1; O2SAT 3–97; BMI 63.2
--- NOTE | 2025-05-04 05:19 | PC.NURSE ---
Pt has a 1500 Ml fluid restriction. She is on Telemetry She is Paced. blood sugar was checked at 2100 level was 129 no coverage was given. Pt is wearing 3L nc with not on the BIPAP machine. Pt has a foam dressing on her Coccyx. Her VTE is Lovenox SQ per MAR. Pt has a Rahman for Accurate I/O's. No c/o pain or discomfort. Call light is with in reach. JENY ARMSTRONG RN
[2025-05-04 05:54] LABS: Hematocrit 30.3 % (37.0-47.0); Hemoglobin 8.0 g/dL (12.2-16.2); Immature Granulocytes % 0.6 %; Mean Corpuscular HGB Conc 26.4 g/dL (31.8-35.4); Mean Corpuscular Hemoglobin 20.9 pg (27.0-31.2); Mean Corpuscular Volume 79.3 fl (81-99); Nucleated Red Blood Cells % 0.3 %; Platelet Count 314 K/mm3 (142-424); Red Blood Count 3.82 M/mm3 (4.20-5.40); Red Cell Distribution Width-SD 56.3 fL; White Blood Count 8.0 K/mm3 (4.8-10.8)
[2025-05-04 06:01] LABS: POC Glucose,Bedside 115 gm/dL (70-110)
[2025-05-04 06:11] LABS: Albumin Level 3.2 g/dl (3.5-5.0); Chloride 85 mmol/L (98-107); Sodium 129 mmol/L (136-145)
[2025-05-04 06:12] LABS: Potassium 4.0 mmoL/L (3.5-5.1)
[2025-05-04 06:14] LABS: Alanine Aminotransferase 11 U/L (12-78); Albumin/Globulin Ratio 0.9 (1.1-1.8); Alkaline Phosphatase 121 U/L (38-126); Anion Gap 11.0 mEq/L (5-15); Aspartate Amino Transferase 66 U/L (14-36); Bilirubin,Total 0.8 mg/dl (0.2-1.3); Blood Urea Nitrogen 16 mg/dl (7-17); Calcium 8.9 mg/dl (8.4-10.2); Carbon Dioxide 37 mmol/L (22.0-30.0); Creatinine Clearance Estimated 50 mL/min (50-200); Creatinine,Serum 1.00 mg/dl (0.52-1.04); Estimated Glomerular Filt Rate 57 ml/min (>60); GFR (African American) 69 ML/MIN (>60); Globulin 3.5 g/dL (1.3-3.2); Glucose 110 mg/dl (74-100); Total Protein,Serum 6.7 g/dl (6.3-8.2)
[2025-05-04 06:15] LABS: Magnesium 1.6 mg/dl (1.6-2.3)
[2025-05-04] MEDS: FLUTICASONE/UMECLIDIN/VILANTER 100/62.5/25MCG INHALER 1 PUFF IH (06:18)
[2025-05-04] MEDS: LEVOTHYROXINE 150MCG (0.15MG)TAB 300 MCG PO (06:37)
[2025-05-04] MEDS: MORPHINE 2MG/ML SYRINGE 1 MG IV (08:40)
[2025-05-04] MEDS: ASPIRIN EC 81MG TABLET 81 MG PO (08:47)
[2025-05-04] MEDS: METOPROLOL TARTRATE 25MG TABLET 25 MG PO (08:47)
[2025-05-04] MEDS: SPIRONOLACTONE 25MG TABLET 100 MG PO (08:48)
[2025-05-04] MEDS: ROPINIROLE 1MG TABLET 4 MG PO (08:50)
[2025-05-04] MEDS: BUMETANIDE 1MG/4ML VIAL 2 MG IV (08:52)
[2025-05-04] MEDS: NYSTATIN TOPICAL POWDER 30GM TP ×2 (08:53→21:06)
[2025-05-04] MEDS: PREGABALIN 25MG CAPSULE 75 MG PO ×2 (10:00→21:03)
--- NOTE | 2025-05-04 10:51 | EXP.CARD.PN ---
Subjective Subjective Date: 05/04/25 Time: 10:00 Principal diagnosis: Acute on chronic HFpEF Interval history: This is a 54-year-old female presented to the emergency department with shortness of breath. Patient is currently being treated for an acute on chronic exacerbation of HFpEF. She is -3015 mL overnight. She is off of BiPAP and on oxygen via nasal cannula now. She states her shortness of breath is much better today.. She reports her edema has resolved. She denies any chest pain or pressure. She denies any fever, chills, nausea, vomiting or diarrhea. She still is complaining of orthopnea. Exam Data for Last 24 hours Vital signs and Labs for Last 24 Hours: Temp Pulse Resp BP Pulse Ox O2 Del Method O2 Flow Rate 98.3 F 77 20 109/52 L 95 Nasal Cannula 3 05/04/25 08:00 05/04/25 08:00 05/04/25 08:00 05/04/25 08:00 05/04/25 08:00 05/04/25 08:00 05/04/25 08:00 FiO2 35 05/04/25 03:36 Laboratory Results - last 24 hr 05/03/25 12:28: POC Glucose 154 H 05/03/25 20:58: POC Glucose 129 H 05/04/25 05:47: WBC 8.0, RBC 3.82 L, Hgb 8.0 L, Hct 30.3 L, MCV 79.3 L, MCH 20.9 L, MCHC 26.4 L, RDW 20.1 H, Plt Count 314, MPV 10.1, Neut % (Auto) 69.2, Lymph % (Auto) 20.0, [place] % (Auto) 6.8, Eos % (Auto) 2.9, Baso % (Auto) 0.5, Neut # (Auto) 5.5, Lymph # (Auto) 1.6, [place] # (Auto) 0.5, Eos # (Auto) 0.2, Baso # (Auto) 0.0, Sodium 129 L, Potassium 4.0, Chloride 85 L, Carbon Dioxide 37 H, Anion Gap 11.0, BUN 16, Creatinine 1.00, Estimated Creat Clear 50, Estimated GFR 57 L, Est GFR ( Amer) 69, Glucose 110 H, Calcium 8.9, Magnesium 1.6, Total Bilirubin 0.8, AST 66 H D, ALT 11 L, Alkaline Phosphatase 121, Total Protein 6.7, Albumin 3.2 L, Globulin 3.5 H, Albumin/Globulin Ratio 0.9 L 05/04/25 05:54: POC Glucose 115 H I & O for Last 24 hours: Intake & Output 05/01/25 05/02/25 05/03/25 05/04/25 23:59 23:59 23:59 23:59 Intake Total 2850 / 3205 1485 / 1605 390 / 390 Output Total 6675 / 6675 4500 / 5700 1925 / 1925 Balance -3825 / -3470 -3015 / -4095 -1535 / -1535 Weight 425 lb 447 lb 8.614 oz 356 lb 12.8 oz 356 lb 12.8 oz Microbiology Reports for the Last 24 Hours: Microbiology 05/02/25 00:05 Blood Blood Culture - Preliminary NO GROWTH AFTER 48 HOURS 05/02/25 00:05 Blood Blood Culture - Preliminary NO GROWTH AFTER 48 HOURS Constitutional Constitutional: no acute distress and morbidly obese *Routine HEENT Exam Head: Present normocephalic and atraumatic ENT: Present mucous membranes moist *Routine Neck Exam Neck: Present supple, full ROM and normal carotid upstroke; Absent JVD, carotid bruit or lymphadenopathy *Routine Respiratory Exam Respiratory: Present CTA bilaterally, normal respiratory effort, able to speak in complete sentences and symmetric chest movement *Routine Cardiovascular Exam Cardiovascular: Present RRR, Normal S1 and Normal S2; Absent murmur or gallop *Routine Abdominal Exam Abdominal: Present soft and normoactive bowel sounds; Absent tenderness, distended or organomegaly *Routine Extremities Exam Extremities: Present full ROM, pulses intact and normal capillary refill; Absent cyanosis, clubbing or edema *Routine Skin Exam Skin: Present intact and warm; Absent erythema *Routine Neurological Exam Neurological: Present alert, oriented X3 and CN II-XII intact; Absent sensory deficit or motor deficit Routine Psychiatric Exam Psychiatric: Present normal affect Progress Note: A&P Assessment and plan (1) Acute on chronic heart failure with preserved ejection fraction (HFpEF): Status: Acute (2) Morbid obesity with body mass index (BMI) greater than or equal to 70 in adult: Status: Acute (3) Volume overload: Status: Acute (4) Acute and chronic respiratory failure with hypoxia: Status: Acute (5) HONEY (obstructive sleep apnea): Status: Acute (6) Anemia: Status: Acute (7) HLD (hyperlipidemia): Status: Acute (8) Elevated left ventricular end-diastolic pressure (LVEDP): Status: Acute (9) HTN (hypertension): Status: Acute (10) COPD (chronic obstructive pulmonary disease): Status: Acute (11) Presence of cardiac pacemaker: Status: Acute Assessment and Plan Assessment and Plan for All Diagnoses:: Plan: 1. The patient was admitted to the hospital and found to have acute on chronic HFpEF. Her BNP was elevated on admission and pulmonary edema on chest x-ray s. The patient has been diuresed with IV Bumex. Will switch her over to Bumex 2 mg p.o. twice daily. 2. Continue spironolactone 100 mg daily for diuresis as well. 3. When the patient is euvolemic consider Jardiance or Farxiga. However, she does have frequent UTIs which may limit the use of SGLT2 inhibitors. 4. The patient does have acute on chronic respiratory failure with hypoxemia. She is now off of BiPAP and on oxygen via nasal cannula. Will defer to the hospitalist/customer retention representative. 5. Her blood pressure is well-controlled. 6. Her LDL goal is less than 100. Her LDL is 99. 7. She did have an elevated D-dimer. She would likely benefit from a CTA of the chest but we will leave this up to the hospitalist. 8. The patient ruled out for an [place]. No plans for invasive left cardiac catheterization at this time. She would benefit from an outpatient ischemic evaluation once she is discharged from the hospital. 9. Echo shows EF of 40 to 45%. There is mild global hypokinesis. Moderate hypokinesis of the septal and inferior septal nichole. Compared to prior study from December 2024 it is overall unchanged. 10. Weight loss is highly encouraged. 11. The patient has a history of symptomatic Mobitz 2 status post pacemaker placement. She did have her atrial lead revised in December of this year. 12. Further recommendations will be made pending the patient's response to treatment. Thank you for the opportunity to help participate in the care of this patient. All recommendations and orders are per Dr. Mann.
--- NOTE | 2025-05-04 15:18 | EXP.ACUTE.PN ---
Subjective *Date: 05/04/25 *Time: 15:18 Interval history: Denies chest pain or shortness of breath. Having good response to diuretics. No nausea or vomiting. Alert and oriented x 4 Medical Exam Vital signs and Labs for Last 24 Hours: Vital Signs Temp Pulse Pulse Resp BP Pulse Ox O2 Del Method 05/04/25 12:00 98.2 F 69 18 116/57 L 97 Nasal Cannula 05/04/25 11:00 Nasal Cannula 05/04/25 08:00 98.3 F 77 20 109/52 L 95 Nasal Cannula 05/04/25 07:55 Nasal Cannula 05/04/25 07:55 3 L Nasal Cannula 05/04/25 06:55 Nasal Cannula 05/04/25 05:00 Nasal Cannula 05/04/25 04:00 98.7 F 70 18 132/72 92 L BiPAP 05/04/25 04:00 80 05/04/25 03:36 05/04/25 03:00 Nasal Cannula 05/04/25 01:00 BiPAP 05/04/25 00:00 60 05/04/25 00:00 98.1 F 72 18 106/50 L 92 L Nasal Cannula 05/03/25 23:51 05/03/25 23:00 BiPAP 05/03/25 21:00 BiPAP 05/03/25 20:00 95 BiPAP 05/03/25 20:00 60 05/03/25 20:00 98.0 F 63 18 124/67 93 L BiPAP 05/03/25 19:33 05/03/25 19:19 94 L BiPAP 05/03/25 17:57 Nasal Cannula, BiPAP 05/03/25 16:26 Nasal Cannula 05/03/25 16:00 98.2 F 68 16 112/63 90 L Nasal Cannula 05/03/25 16:00 70 O2 Flow Rate FiO2 05/04/25 12:00 3 05/04/25 11:00 05/04/25 08:00 3 05/04/25 07:55 3 05/04/25 07:55 05/04/25 06:55 3 05/04/25 05:00 3 05/04/25 04:00 05/04/25 04:00 05/04/25 03:36 35 05/04/25 03:00 3 05/04/25 01:00 3 05/04/25 00:00 05/04/25 00:00 3 05/03/25 23:51 35 05/03/25 23:00 3 05/03/25 21:00 3 05/03/25 20:00 05/03/25 20:00 05/03/25 20:00 05/03/25 19:33 35 05/03/25 19:19 35 05/03/25 17:57 05/03/25 16:26 2 05/03/25 16:00 2 05/03/25 16:00 Intake and Output 05/03/25 05/04/25 05/04/25 23:59 07:59 15:59 Intake Total 360 / 1605 120 / 660 540 / 660 Output Total 2050 / 5700 1600 / 2850 1250 / 2850 Balance -1690 / -4095 -1480 / -2190 -710 / -2190 Intake: Intake, Oral Amount 360 / 1495 120 / 660 540 / 660 Output: Output, Urine Amount 450 / 4100 1600 / 2850 1250 / 2850 Output, Urine Amount (Catheter) 1600 / 1600 Hernández 1600 / 1600 Other: Number of Unmeasured Voids 0 0 0 Weight 161.842 kg Patient Weight 05/04/25 23:59 Weight 161.842 kg Laboratory Results - last 24 hr 05/03/25 20:58: POC Glucose 129 H 05/04/25 05:47: WBC 8.0, RBC 3.82 L, Hgb 8.0 L, Hct 30.3 L, MCV 79.3 L, MCH 20.9 L, MCHC 26.4 L, RDW 20.1 H, Plt Count 314, MPV 10.1, Neut % (Auto) 69.2, Lymph % (Auto) 20.0, [place] % (Auto) 6.8, Eos % (Auto) 2.9, Baso % (Auto) 0.5, Neut # (Auto) 5.5, Lymph # (Auto) 1.6, [place] # (Auto) 0.5, Eos # (Auto) 0.2, Baso # (Auto) 0.0, Sodium 129 L, Potassium 4.0, Chloride 85 L, Carbon Dioxide 37 H, Anion Gap 11.0, BUN 16, Creatinine 1.00, Estimated Creat Clear 50, Estimated GFR 57 L, Est GFR ( Amer) 69, Glucose 110 H, Calcium 8.9, Magnesium 1.6, Total Bilirubin 0.8, AST 66 H D, ALT 11 L, Alkaline Phosphatase 121, Total Protein 6.7, Albumin 3.2 L, Globulin 3.5 H, Albumin/Globulin Ratio 0.9 L 05/04/25 05:54: POC Glucose 115 H I & O for Labs for Last 24 Hours: Intake & Output 05/01/25 05/02/25 05/03/25 05/04/25 23:59 23:59 23:59 23:59 Intake Total 2850 / 3205 1485 / 1605 660 / 660 Output Total 6675 / 6675 4500 / 5700 2850 / 2850 Balance -3825 / -3470 -3015 / -4095 -2190 / -2190 Weight 192.777 kg 203 kg 161.842 kg 161.842 kg Microbiology Reports for the Last 24 Hours: Microbiology 05/02/25 00:05 Blood Blood Culture - Preliminary NO GROWTH AFTER 48 HOURS 05/02/25 00:05 Blood Blood Culture - Preliminary NO GROWTH AFTER 48 HOURS Constitutional: Present no acute distress, morbidly obese, chronically ill appearing and cooperative Head: Present normocephalic Eyes: Absent eye pain or eye discharge ENT: Present normal exam Neck: Present normal inspection Respiratory: Present distant breath sounds and able to speak in complete sentences Cardiac: Present Reg Rate and Rhythm; Absent No Murmur GI: Present soft and normal bowel sounds; Absent distention or tenderness Rectal (female): Present deferred Extremities: Present edema Skin: Present intact Neuro: Present Grossly Intact, alert, awake, oriented x 3 and moves all extremities Assessment and Plan *Assessment and plan (1) Morbid obesity with body mass index (BMI) greater than or equal to 70 in adult: Status: Acute Category: Medical Code(s): E66.01 - Morbid (severe) obesity due to excess calories; Z68.45 - Body mass index [BMI] 70 or greater, adult (2) Volume overload: Status: Acute Category: Medical Code(s): E87.70 - Fluid overload, unspecified (3) Acute and chronic respiratory failure with hypoxia: Status: Acute Category: Medical Code(s): J96.21 - Acute and chronic respiratory failure with hypoxia (4) Morbid obesity: Status: Acute Category: Medical Code(s): E66.01 - Morbid (severe) obesity due to excess calories (5) Hypothyroidism: Status: Acute Qualifiers: Hypothyroidism type: unspecified Qualified Code(s): E03.9 - Hypothyroidism, unspecified Category: Medical Code(s): E03.9 - Hypothyroidism, unspecified (6) HONEY (obstructive sleep apnea): Status: Acute Category: Medical Code(s): G47.33 - Obstructive sleep apnea (adult) (pediatric) Plan Morbidly obese female with heart failure who presents with exacerbation. Admitted for diuresis. Cardiology assisting with care. Continues to require patient management. Switching off Bumex drip today. Continue with Hernández today. Showing improvement. Anticipate discharge in the coming days. Problems addressed as follows: #Acute on chronic respiratory failure with hypoxia Baseline home O2 2 L, currently on 3 L. Wean as tolerated for goal sats greater 90% Improving with diuresis #Acute on chronic diastolic heart failure Elevated BNP of 930.? Chest x-ray with pulmonary edema noted Reports noncompliance with her diuretics secondary to immobility -Discontinue Bumex drip. Transition to 2 mg IV twice daily. Continue home spironolactone 100 mg daily and metolazone 5 mg twice daily; will consider switching to oral Bumex tomorrow --8 L so far since admission -Continue Hernández today, plan to remove Hernández tomorrow. - Consider Jardiance or Farxiga when patient euvolemic. - Discussed importance of diuresis to patient and risk of readmission if she does not take her diuretics at home. She has difficulty making it to the bathroom. Explained risks of leaving catheter in place due to risk of UTI and possible sepsis. Patient elected to remove Hernández prior to discharge and go home without Hernández. States she will do better taking her diuretics and getting to the bathroom. - Creatinine 1.0, BUN 16. Potassium 4.0 and magnesium 1.6. Repeat CBC, CMP, magnesium ordered for the morning #Mobitz type II heart block #Pacemaker in situ Recent transfer to [facility] for pacemaker lead changing Appears to be capturing at this time. Denies chest pain or palpitations Block appears different than prior EKG. Frankie consulted prior to admission given limitations to provide pacer maintenance 2/2 to pts weight. Okay with admit here, will interrogate pacer in AM #COPD without exacerbation Appears volume overloaded on exam.? Does not appear to be in COPD exacerbation. Suspect component of obesity hypoventilation. Continue supplemental oxygen as needed for goal sats greater 90%. Currently on 2 L. #Hypothyroidism Continue home levothyroxine, TSH 6.0 #Morbid obesity BMI > 75. Spoke at length with patient and patient's family regarding calorie intake. Family does have to cook and bring all foods to patient and educated them on appropriate caloric intake to aid in weight loss. Complicates all aspects of care Continue home GLP-1 dosing #Anxiety and depression Continue Wellbutrin 200 mg daily Continue trazodone 300 mg nightly DVT PPx Anemia, iron deficient: 1 dose of Venofer today. Hemoglobin stable at 8. White count 8. Platelets 314. Repeat CBC in the morning Lovenox 60 mg twice daily (BMI greater than 50) Regular diet Full code
[2025-05-04] MEDS: BUMETANIDE 1 MG TABLET 2 MG PO (17:11)
[2025-05-04 17:30] LABS: POC Glucose,Bedside 138 gm/dL (70-110)
[2025-05-04 20:22] LABS: POC Glucose,Bedside 155 gm/dL (70-110)
[2025-05-04] MEDS: ATORVASTATIN 40MG TABLET 40 MG PO (21:03)
[2025-05-04] MEDS: humaLOG 100 UNITS/ML 10ML VIAL (SSI) SUBCUT (21:05)
[2025-05-05] VITALS (12 sets, daily range): BP systolic 105–129; BP diastolic 46–63; PULSE 70–83; RESP 16–25; TEMP 36.6–37.2; O2SAT 92–96; BMI 62.8; BMI 73.1
--- NOTE | 2025-05-05 03:50 | PC.NURSE ---
Pt has a 1500 Ml fluid restriction. She is on Telemetry She is Paced. blood sugar was checked at 2100 level was 155 Pt received 2 units SUB Q. Pt is wearing 3L nc with not on the BIPAP machine. Pt has a foam dressing on her Coccyx. Her VTE is Lovenox SQ per MAR. Pt has a Hernández for Accurate I/O's. No c/o pain or discomfort. Call light is with in reach. JENY ARMSTRONG RN
[2025-05-05] MEDS: LEVOTHYROXINE 150MCG (0.15MG)TAB 300 MCG PO (06:00)
[2025-05-05 06:02] LABS: POC Glucose,Bedside 123 gm/dL (70-110)
[2025-05-05] MEDS: FLUTICASONE/UMECLIDIN/VILANTER 100/62.5/25MCG INHALER 1 PUFF IH (06:06)
[2025-05-05] MEDS: MORPHINE 2MG/ML SYRINGE 1 MG IV (06:17)
[2025-05-05 06:18] LABS: Hematocrit 29.8 % (37.0-47.0); Hemoglobin 7.8 g/dL (12.2-16.2); Immature Granulocytes % 1.0 %; Mean Corpuscular HGB Conc 26.2 g/dL (31.8-35.4); Mean Corpuscular Hemoglobin 20.3 pg (27.0-31.2); Mean Corpuscular Volume 77.4 fl (81-99); Nucleated Red Blood Cells % 0.3 %; Platelet Count 329 K/mm3 (142-424); Red Blood Count 3.85 M/mm3 (4.20-5.40); Red Cell Distribution Width-SD 53.1 fL; White Blood Count 10.1 K/mm3 (4.8-10.8)
[2025-05-05 06:40] LABS: Albumin Level 3.2 g/dl (3.5-5.0); Chloride 81 mmol/L (98-107); Potassium 3.8 mmoL/L (3.5-5.1); Sodium 131 mmol/L (136-145)
[2025-05-05 06:43] LABS: Alanine Aminotransferase 12 U/L (12-78); Albumin/Globulin Ratio 0.9 (1.1-1.8); Alkaline Phosphatase 118 U/L (38-126); Aspartate Amino Transferase 17 U/L (14-36); Bilirubin,Total 0.3 mg/dl (0.2-1.3); Calcium 8.9 mg/dl (8.4-10.2); Globulin 3.5 g/dL (1.3-3.2); Glucose 107 mg/dl (74-100); Magnesium 1.4 mg/dl (1.6-2.3); Total Protein,Serum 6.7 g/dl (6.3-8.2)
[2025-05-05 07:00] LABS: Blood Urea Nitrogen 16 mg/dl (7-17); Creatinine Clearance Estimated 50 mL/min (50-200); Creatinine,Serum 1.00 mg/dl (0.52-1.04); Estimated Glomerular Filt Rate 57 ml/min (>60); GFR (African American) 69 ML/MIN (>60)
[2025-05-05 07:07] LABS: Anion Gap 13.8 mEq/L (5-15); Carbon Dioxide > 40 mmol/L (22.0-30.0)
[2025-05-05] MEDS: ROPINIROLE 1MG TABLET 4 MG PO (08:41)
[2025-05-05] MEDS: PREGABALIN 25MG CAPSULE 75 MG PO ×2 (08:42→20:02)
[2025-05-05] MEDS: ASPIRIN EC 81MG TABLET 81 MG PO (08:42)
[2025-05-05] MEDS: BUMETANIDE 1 MG TABLET 2 MG PO ×2 (08:42→16:35)
[2025-05-05] MEDS: SPIRONOLACTONE 25MG TABLET 100 MG PO (08:43)
[2025-05-05] MEDS: NYSTATIN TOPICAL POWDER 30GM TP ×2 (08:44→20:04)
--- NOTE | 2025-05-05 08:55 | PC.NURSE ---
Patient with complaint of chest pain 01/26. Natalee [employer]ED[employer] notified and order received for troponin and EKG
[2025-05-05] MEDS: MAGNESIUM SULFATE IN WATER 2 GM/50 ML PIGGYBACK IV ×2 (09:02→13:01)
--- NOTE | 2025-05-05 09:05 | ECG_ITS ---
APPROVED REPORT Exam: Resting ECG HR:80 bpm ECG Measurements Heart Rate 80 AXES WI 204 P 66 QRSd 117 QRS 95 QT 378 T -44 QTc 413 Conclusion ELECTRONIC VENTRICULAR PACEMAKER MARKED ST ELEVATION, CONSIDER ANTERIOR INJURY [MARKED ST ELEVATION W/O NORMALLY INFLECTED T-WAVE IN V2-V5] ACUTE CT UNCONFIRMED REPORT Electronically signed by : Fabrizio Rosales MD 05/05/2025 21:58:23
--- NOTE | 2025-05-05 09:12 | PC.NURSE ---
Aimee HERRMANN reviewed EKG. No new orders received.
[2025-05-05 09:52] LABS: Troponin I < 0.01 ng/ml (0.00-0.034)
--- NOTE | 2025-05-05 11:03 | EXP.CARD.PN ---
Subjective Subjective Date: 05/05/25 Time: 09:30 Principal diagnosis: Acute on chronic HFpEF Interval history: This is a 54-year-old female presented to the emergency department with shortness of breath. Patient is currently being treated for an acute on chronic exacerbation of HFpEF. She is -3730 mL overnight with diuresis. She is on BiPAP this morning. She states her shortness of breath is much better today.. She reports her edema has resolved. She did complain of sharp pain in the left side of her chest this morning x 1 which has resolved. EKG shows SR with v-pacing and troponin is negative. She denies any fever, chills, nausea, vomiting or diarrhea. She still is complaining of orthopnea. Exam Data for Last 24 hours Vital signs and Labs for Last 24 Hours: Temp Pulse Resp BP Pulse Ox O2 Del Method O2 Flow Rate 98.4 F 78 16 105/46 L 92 L Nasal Cannula 3 05/05/25 07:45 05/05/25 07:45 05/05/25 07:45 05/05/25 07:45 05/05/25 08:45 05/05/25 09:10 05/05/25 09:10 FiO2 35 05/05/25 09:11 Laboratory Results - last 24 hr 05/04/25 17:09: POC Glucose 138 H 05/04/25 20:15: POC Glucose 155 H 05/05/25 05:45: WBC 10.1 D, RBC 3.85 L, Hgb 7.8 L, Hct 29.8 L, MCV 77.4 L, MCH 20.3 L, MCHC 26.2 L, RDW 19.9 H, Plt Count 329, MPV 9.6, Neut % (Auto) 69.7, Lymph % (Auto) 20.4, [place] % (Auto) 5.7, Eos % (Auto) 2.9, Baso % (Auto) 0.3, Neut # (Auto) 7.1, Lymph # (Auto) 2.1, [place] # (Auto) 0.6, Eos # (Auto) 0.3, Baso # (Auto) 0.0, Sodium 131 L, Potassium 3.8, Chloride 81 L, Carbon Dioxide > 40 H*, Anion Gap 13.8, BUN 16, Creatinine 1.00, Estimated Creat Clear 50, Estimated GFR 57 L, Est GFR ( Amer) 69, Glucose 107 H, Calcium 8.9, Magnesium 1.4 L D, Total Bilirubin 0.3, AST 17 D, ALT 12, Alkaline Phosphatase 118, Total Protein 6.7, Albumin 3.2 L, Globulin 3.5 H, Albumin/Globulin Ratio 0.9 L 05/05/25 05:55: POC Glucose 123 H 05/05/25 09:03: Troponin I < 0.01 I & O for Last 24 hours: Intake & Output 05/02/25 05/03/25 05/04/25 05/05/25 23:59 23:59 23:59 23:59 Intake Total 2850 / 3205 1485 / 1605 1020 / 1260 630 / 630 Output Total 6675 / 6675 4500 / 5700 4750 / 6050 1999 Balance -3825 / -3470 -3015 / -4095 -3730 / -4790 -1370 / -1370 Weight 447 lb 8.614 oz 356 lb 12.8 oz 356 lb 12.8 oz 354 lb 12.8 oz Constitutional Constitutional: no acute distress and morbidly obese *Routine HEENT Exam Head: Present normocephalic and atraumatic ENT: Present mucous membranes moist *Routine Neck Exam Neck: Present supple, full ROM and normal carotid upstroke; Absent JVD, carotid bruit or lymphadenopathy *Routine Respiratory Exam Respiratory: Present CTA bilaterally, normal respiratory effort, able to speak in complete sentences and symmetric chest movement *Routine Cardiovascular Exam Cardiovascular: Present RRR, Normal S1 and Normal S2; Absent murmur or gallop *Routine Abdominal Exam Abdominal: Present soft and normoactive bowel sounds; Absent tenderness, distended or organomegaly *Routine Extremities Exam Extremities: Present full ROM, pulses intact and normal capillary refill; Absent cyanosis, clubbing or edema *Routine Skin Exam Skin: Present intact and warm; Absent erythema *Routine Neurological Exam Neurological: Present alert, oriented X3 and CN II-XII intact; Absent sensory deficit or motor deficit Routine Psychiatric Exam Psychiatric: Present normal affect Progress Note: A&P Assessment and plan (1) Acute on chronic heart failure with preserved ejection fraction (HFpEF): Status: Acute (2) Volume overload: Status: Acute (3) Acute and chronic respiratory failure with hypoxia: Status: Acute (4) HONEY (obstructive sleep apnea): Status: Acute (5) Anemia: Status: Acute (6) HLD (hyperlipidemia): Status: Acute (7) Elevated left ventricular end-diastolic pressure (LVEDP): Status: Acute (8) HTN (hypertension): Status: Acute (9) Morbid obesity with body mass index (BMI) greater than or equal to 70 in adult: Status: Acute (10) COPD (chronic obstructive pulmonary disease): Status: Acute (11) Presence of cardiac pacemaker: Status: Acute Assessment and Plan Assessment and Plan for All Diagnoses:: Plan: 1. The patient was admitted to the hospital and found to have acute on chronic HFpEF. Her BNP was elevated on admission and pulmonary edema on chest x-ray. The patient has been diuresed with IV Bumex. Will change her to Bumex 2 mg p.o. twice daily today for continued diuresis. Continue metolazone as well. 2. Continue spironolactone 100 mg daily for diuresis as well. 3. Will hold off on Jardiance/Farxiga at this time due to frequent UTIs which may limit the use of SGLT2 inhibitors. 4. The patient does have acute on chronic respiratory failure with hypoxemia. She is on BiPAP this morning, she uses this at home as well. Will defer to the hospitalist/wallcovering texturer. 5. Her blood pressure is well-controlled. 6. Her LDL goal is less than 100. Her LDL is 99. 7. She did have an elevated D-dimer. She would likely benefit from a CTA of the chest but we will leave this up to the hospitalist. 8. The patient ruled out for an [place]. No plans for invasive left cardiac catheterization at this time. She would benefit from an outpatient ischemic evaluation once she is discharged from the hospital. 9. Echo shows EF of 40 to 45%. There is mild global hypokinesis. Moderate hypokinesis of the septal and inferior septal nichole. Compared to prior study from December 2024 it is overall unchanged. 10. Weight loss is highly encouraged. 11. The patient has a history of symptomatic Mobitz 2 status post pacemaker placement. She did have her atrial lead revised in December of this year. 12. No further recommendations at this time from a cardiac standpoint. She can follow-up in cardiology clinic in 1 to 2 weeks on an outpatient basis once she is discharged from the hospital. The patient will need to be discharged on the following cardiac medications: Aspirin 81 mg daily Lipitor 40 mg p.o. nightly Bumex 2 mg p.o. twice daily Metolazone 2.5 mg p.o. twice daily Metoprolol to tartrate 25 mg p.o. twice daily Spironolactone 100 mg daily Thank you for the opportunity to help participate in the care of this patient. All recommendations and orders are per Dr. Mann.
[2025-05-05] MEDS: IRON SUCROSE COMPLEX 200 MG in 0.9 % SODIUM CHLORIDE 100 ML 220 MG IV (11:50)
[2025-05-05] MEDS: METOPROLOL TARTRATE 25MG TABLET 25 MG PO (11:50)
[2025-05-05] MEDS: humaLOG 100 UNITS/ML 10ML VIAL (SSI) SUBCUT ×2 (11:58→16:40)
[2025-05-05 12:05] LABS: POC Glucose,Bedside 168 gm/dL (70-110)
[2025-05-05] MEDS: POLYETHYLENE GLYCOL 3350 17 GM PACKET PO (12:24)
--- NOTE | 2025-05-05 15:41 | PC.NURSE ---
Patient alert and oriented. VSS. On bipap and 3L O2 via nasal cannula when not on bipap. One episode of chest pain with negative EKG and troponin. Denies other pain. Up with 3 to standing scale. Patient stood for 2-3 minutes. Tolerated poorly. Turned q 2 and prn. Magnesium replaced. Voiding via purewick with good output secondary to diuresis. Miralax given for constipation. Will continue diuresis with possible discharge to [place] tomorrow
[2025-05-05 16:27] LABS: POC Glucose,Bedside 157 gm/dL (70-110)
--- NOTE | 2025-05-05 18:24 | P.PN_ITS ---
Subjective *Date: 05/05/25 *Time: 20:42 Interval history: Having good this. Tolerating diuretics well. Stable on baseline oxygen. No fever. No nausea or vomiting. Voiding well without catheter in place. Tolerating p.o. intake. Medical Exam Vital signs and Labs for Last 24 Hours: Vital Signs Temp Pulse Pulse Resp BP Pulse Ox O2 Del Method 05/05/25 16:44 Nasal Cannula 05/05/25 15:57 98.6 F 73 18 111/55 L 95 Nasal Cannula 05/05/25 15:00 BiPAP 05/05/25 13:00 Nasal Cannula 05/05/25 12:00 98.3 F 83 16 129/63 93 L Nasal Cannula 05/05/25 11:00 Nasal Cannula 05/05/25 09:11 05/05/25 09:10 Nasal Cannula 05/05/25 08:45 92 L Nasal Cannula 05/05/25 08:00 80 05/05/25 07:45 98.4 F 78 16 105/46 L 92 L Nasal Cannula 05/05/25 06:07 95 Nasal Cannula 05/05/25 05:00 Nasal Cannula, BiPAP 05/05/25 04:00 98.3 F 80 16 121/55 L 96 Nasal Cannula 05/05/25 04:00 80 05/05/25 03:00 Nasal Cannula 05/05/25 01:00 BiPAP 05/05/25 00:00 99.0 F 74 16 120/61 96 BiPAP 05/05/25 00:00 70 05/04/25 23:00 BiPAP 05/04/25 22:54 05/04/25 21:00 BiPAP 05/04/25 20:00 70 05/04/25 20:00 95 Nasal Cannula 05/04/25 20:00 98.0 F 69 22 105/48 L 95 Nasal Cannula 05/04/25 18:30 Nasal Cannula, BiPAP O2 Flow Rate FiO2 05/05/25 16:44 3 05/05/25 15:57 3 05/05/25 15:00 05/05/25 13:00 3 05/05/25 12:00 3 05/05/25 11:00 3 05/05/25 09:11 35 05/05/25 09:10 3 05/05/25 08:45 3 05/05/25 08:00 05/05/25 07:45 3 05/05/25 06:07 3 05/05/25 05:00 3 05/05/25 04:00 3 05/05/25 04:00 05/05/25 03:00 3 05/05/25 01:00 3 05/05/25 00:00 3 05/05/25 00:00 05/04/25 23:00 3 05/04/25 22:54 35 05/04/25 21:00 3 05/04/25 20:00 05/04/25 20:00 3 05/04/25 20:00 3 05/04/25 18:30 Intake and Output 05/05/25 05/05/25 05/05/25 07:59 15:59 23:59 Intake Total 240 / 1130 890 / 1130 Output Total 1500 / 3600 1700 / 3600 400 / 3600 Balance -1260 / -2470 -810 / -2470 -400 / -2470 Intake: Intake, Oral Amount 240 / 870 630 / 870 Intake, Total IV Amount 260 / 260 Iron Sucrose Complex 200 mg In 160 / 160 0.9 % Sodium Chloride 100 ml @ 220 mls/hr IV ONCE ONE Rx#: [id number] Magnesium Sulfate in Water 2 gm 100 / 100 In 50 ml @ 50 mls/hr IV Q2H [facility] Rx#:[id number] Output: Output, Urine Amount 1500 / 3600 1700 / 3600 400 / 3600 Other: Number of Unmeasured Voids 1 0 Weight 160.935 kg 187.334 kg Patient Weight 05/05/25 23:59 Weight 187.334 kg Laboratory Results - last 24 hr 05/04/25 20:15: POC Glucose 155 H 05/05/25 05:45: WBC 10.1 D, RBC 3.85 L, Hgb 7.8 L, Hct 29.8 L, MCV 77.4 L, MCH 20.3 L, MCHC 26.2 L, RDW 19.9 H, Plt Count 329, MPV 9.6, Neut % (Auto) 69.7, Lymph % (Auto) 20.4, [place] % (Auto) 5.7, Eos % (Auto) 2.9, Baso % (Auto) 0.3, N eut # (Auto) 7.1, Lymph # (Auto) 2.1, [place] # (Auto) 0.6, Eos # (Auto) 0.3, Baso # (Auto) 0.0, Sodium 131 L, Potassium 3.8, Chloride 81 L, Carbon Dioxide > 40 H* , Anion Gap 13.8, BUN 16, Creatinine 1.00, Estimated Creat Clear 50, Estimated GFR 57 L, Est GFR ( Amer) 69, Glucose 107 H, Calcium 8.9, Magnesium 1.4 L D, Total Bilirubin 0.3, AST 17 D, ALT 12, Alkaline Phosphatase 118, Total Protein 6.7, Albumin 3.2 L, Globulin 3.5 H, Albumin/Globulin Ratio 0.9 L 05/05/25 05:55: POC Glucose 123 H 05/05/25 09:03: Troponin I < 0.01 05/05/25 11:44: POC Glucose 168 H 05/05/25 16:20: POC Glucose 157 H I & O for Labs for Last 24 Hours: Intake & Output 05/02/25 05/03/25 05/04/25 05/05/25 23:59 23:59 23:59 23:59 Intake Total 2850 / 3205 1485 / 1605 1020 / 1260 1130 / 1130 Output Total 6675 / 6675 4500 / 5700 4750 / 6050 3600 / 3600 Balance -3825 / -3470 -3015 / -4095 -3730 / -4790 -2470 / -2470 Weight 203 kg 161.842 kg 161.842 kg 187.334 kg Constitutional: Present no acute distress, morbidly obese, chronically ill appearing and cooperative Head: Present normocephalic Eyes: Absent eye pain or eye discharge ENT: Present normal exam Neck: Present normal inspection Respiratory: Present distant breath sounds and able to speak in complete sentences Cardiac: Present Reg Rate and Rhythm; Absent No Murmur GI: Present soft and normal bowel sounds; Absent distention or tenderness Rectal (female): Present deferred Extremities: Present edema (Interval improvement) Skin: Present intact Neuro: Present Grossly Intact, alert, awake, oriented x 3 and moves all extremities Assessment and Plan *Assessment and plan (1) Morbid obesity with body mass index (BMI) greater than or equal to 70 in adult: Status: Acute Category: Medical Code(s): E66.01 - Morbid (severe) obesity due to excess calories; Z68.45 - Body mass index [BMI] 70 or greater, adult (2) Volume overload: Status: Acute Category: Medical Code(s): E87.70 - Fluid overload, unspecified (3) Acute and chronic respiratory failure with hypoxia: Status: Acute Category: Medical Code(s): J96.21 - Acute and chronic respiratory failure with hypoxia (4) Morbid obesity: Status: Acute Category: Medical Code(s): E66.01 - Morbid (severe) obesity due to excess calories (5) Hypothyroidism: Status: Acute Qualifiers: Hypothyroidism type: unspecified Qualified Code(s): E03.9 - Hypothyroidism, unspecified Category: Medical Code(s): E03.9 - Hypothyroidism, unspecified (6) HONEY (obstructive sleep apnea): Status: Acute Category: Medical Code(s): G47.33 - Obstructive sleep apnea (adult) (pediatric) Plan Morbidly obese female with heart failure who presents with exacerbation. Admitted for diuresis. Cardiology assisting with care. Continues to require patient management. Switching off Bumex drip today. Continue with Hernández today. Showing improvement. Anticipate discharge in the coming days. Problems a ddressed as follows: #Acute on chronic respiratory failure with hypoxia Baseline home O2 2 L, currently on 3 L. Wean as tolerated for goal sats greater 90% Improving with diuresis - Wearing BiPAP when she sleeps. Reports having completed a sleep study as an outpatient, awaiting home NIPPV device #Acute on chronic diastolic heart failure Elevated BNP of 930.? Chest x-ray with pulmonary edema noted Reports noncompliance with her diuretics secondary to immobility - Tolerating Bumex twice daily, continue 2 mg p.o. Continue home spironolactone 100 mg daily and metolazone 5 mg twice daily - Negative 12 L so far since admission - Hernández discontinued this morning. - Consider Jardiance or Farxiga when patient euvolemic however strong concern the patient is at high risk for infection due to body habitus and incontinence issues. Shared discussion with patient prior to initiation. - Discussed importance of diuresis to patient and risk of readmission if she does not take her diuretics at home. She has difficulty making it to the bathroom. Explained risks of leaving catheter in place due to risk of UTI and possible sepsis. Patient elected to remove Hernández prior to discharge and go home without Hernández. States she will do better taking her diuretics and getting to the bathroom. - Creatinine 1.0, BUN 16, magnesium 1.4, potassium 3.8. Replace per protocol. Repeat CBC, CMP, magnesium ordered for the morning #Mobitz type II heart block #Pacemaker in situ Recent transfer to [facility] for pacemaker lead changing Appears to be capturing at this time. - Episode of chest pain today. Troponin negative. EKG with no ischemic changes. Discussed case with cardiology, no plan for intervention or evaluation at this time. Continue outpatient follow-up #COPD without exacerbation Improving volume status, Does not appear to be in COPD exacerbation. Suspect component of obesity hypoventilation. Continue supplemental oxygen as needed for goal sats greater 90%. Currently on 2 L. #Hypothyroidism: continue home levothyroxine, TSH 6.0 #Morbid obesity BMI > 75. Spoke at length with patient and patient's family regarding calorie intake. Family does have to cook and bring all foods to patient and educated them on appropriate caloric intake to aid in weight loss. Complicates all aspects of care Continue home GLP-1 dosing #Anxiety and depression Continue Wellbutrin 200 mg daily Continue trazodone 300 mg nightly DVT PPx Anemia, iron deficient: 1 dose of Venofer today. Hemoglobin stable at 8. White count 8. Platelets 314. Repeat CBC in the morning Lovenox 60 mg twice daily (BMI greater than 50) Regular diet Full code
[2025-05-05 20:03] LABS: POC Glucose,Bedside 149 gm/dL (70-110)
[2025-05-05] MEDS: ATORVASTATIN 40MG TABLET 40 MG PO (20:03)
[2025-05-06] VITALS: BP 107/55; PULSE 114; PULSE 73; RESP 18; TEMP 36.5; O2SAT 93
--- NOTE | 2025-05-06 01:39 | PC.NURSE ---
Pt AOx4, pleasant. Continually denies pain or any additional needs throughout shift. VSS. Currently on 3L NC. Respirations even and unlabored. Bed is low, locked, and call light is in reach.
[2025-05-06 04:00] VITALS: BP 108/54; PULSE 78; PULSE 91; RESP 18; TEMP 36.9; O2SAT 96; BMI 73.8
[2025-05-06 05:30] LABS: POC Glucose,Bedside 149 gm/dL (70-110)
[2025-05-06 05:58] VITALS: O2SAT 93
[2025-05-06] MEDS: FLUTICASONE/UMECLIDIN/VILANTER 100/62.5/25MCG INHALER 1 PUFF IH (05:58)
[2025-05-06] MEDS: LEVOTHYROXINE 150MCG (0.15MG)TAB 300 MCG PO (06:11)
[2025-05-06 07:22] LABS: Hematocrit 29.8 % (37.0-47.0); Hemoglobin 8.1 g/dL (12.2-16.2); Immature Granulocytes % 0.6 %; Mean Corpuscular HGB Conc 27.2 g/dL (31.8-35.4); Mean Corpuscular Hemoglobin 21.4 pg (27.0-31.2); Mean Corpuscular Volume 78.8 fl (81-99); Nucleated Red Blood Cells % 0.5 %; Platelet Count 332 K/mm3 (142-424); Red Blood Count 3.78 M/mm3 (4.20-5.40); Red Cell Distribution Width-SD 53.5 fL; White Blood Count 9.3 K/mm3 (4.8-10.8)
[2025-05-06 07:31] LABS: Albumin Level 3.3 g/dl (3.5-5.0); Chloride 80 mmol/L (98-107); Potassium 3.8 mmoL/L (3.5-5.1); Sodium 132 mmol/L (136-145)
[2025-05-06 07:34] LABS: Alanine Aminotransferase 13 U/L (12-78); Albumin/Globulin Ratio 0.9 (1.1-1.8); Alkaline Phosphatase 110 U/L (38-126); Aspartate Amino Transferase 17 U/L (14-36); Bilirubin,Total 0.3 mg/dl (0.2-1.3); Blood Urea Nitrogen 19 mg/dl (7-17); Calcium 9.0 mg/dl (8.4-10.2); Creatinine Clearance Estimated 45 mL/min (50-200); Creatinine,Serum 1.10 mg/dl (0.52-1.04); Estimated Glomerular Filt Rate 51 ml/min (>60); GFR (African American) 62 ML/MIN (>60); Globulin 3.5 g/dL (1.3-3.2); Glucose 171 mg/dl (74-100); Magnesium 1.9 mg/dl (1.6-2.3); Total Protein,Serum 6.8 g/dl (6.3-8.2)
[2025-05-06 07:42] LABS: Anion Gap 9.8 mEq/L (5-15); Carbon Dioxide 46 mmol/L (22.0-30.0)
[2025-05-06 08:00] VITALS: BP 124/69; PULSE 70; PULSE 76; RESP 18; TEMP 36.6; O2SAT 94
[2025-05-06] MEDS: SPIRONOLACTONE 25MG TABLET 100 MG PO (10:14)
[2025-05-06] MEDS: METOPROLOL TARTRATE 25MG TABLET 25 MG PO (10:14)
[2025-05-06] MEDS: BUMETANIDE 1 MG TABLET 2 MG PO (10:15)
[2025-05-06] MEDS: ROPINIROLE 1MG TABLET 4 MG PO (10:15)
[2025-05-06] MEDS: NYSTATIN TOPICAL POWDER 30GM TP (10:16)
[2025-05-06] MEDS: ASPIRIN EC 81MG TABLET 81 MG PO (10:16)
[2025-05-06] MEDS: ACETAMINOPHEN 325MG TAB 650 MG PO (10:18)
[2025-05-06] MEDS: PREGABALIN 25MG CAPSULE 75 MG PO (10:18)
[2025-05-06 12:00] VITALS: PULSE 60
--- NOTE | 2025-05-06 12:56 | EXP.DC.SUM ---
General Admission date:: 05/02/25 Discharge date: 05/06/25 HPI HPI HPI: This is a 54-year-old female with a past medical history of HFpEF, morbid obesity, Mobitz type II with pacemaker in situ, T2DM, HONEY, hypothyroidism who presents emergency department today with complaints of shortness of breath.? Reports compliance with her home 2 L nasal cannula but had increased work of breathing and shortness of breath over the last several days.? She reports being seen in the emergency department 3 days ago and discharged home but has been feeling worse since then.? EMS was called to the home and she was noted to have oxygen saturations of 88% after? patient increased her home oxygen to 5 L.? She endorses more frequent use of her inhaler today.? She states noncompliance with her home diuretic secondary to immobility and getting to the restroom.? She denies fever, chills, vomiting, diarrhea. Emergency department workup notable for CO2 of 66 with a pH of 7.35, BNP of 930, lactic acid of 2.1.She did require Vapotherm for continued hypoxia and increased work of breathing. Given her acute on chronic respiratory failure it was felt she would benefit from hospitalization and IV diuresis. She is admitted to the hospitalist service at this time Hospital Course Hospital Course Hospital Course: Morbidly obese female with heart failure who presents with exacerbation. Admitted for diuresis. Cardiology assisting with care. Responded well to Bumex drip and transition to oral diuretics. Discussed importance of adhering to her diuretic regimen to prevent readmission for worsening heart failure. Patient states understanding. Appears more euvolemic at this time. Stable to discharge home. Recommend close follow-up with cardiology. Problems addressed as follows: #Acute on chronic respiratory failure with hypoxia Baseline home O2 2 L, initially required 3 L. Weaned with diuresis. Back to baseline of 2 L by day of discharge. Wore BiPAP when she sleeps. Has recently completed a sleep study as an outpatient and is awaiting her home CPAP/BiPAP device. Stable discharge home with initiation of noninvasive positive pressure ventilation at night per plan prior to admission. Her volume overload is a strong risk factor for her respiratory failure. Strongly encouraged to adhere to diuretic regimen. #Acute on chronic diastolic heart failure Elevated BNP of 930.? Chest x-ray with pulmonary edema noted on admission. Reports that she has not been adhering to her diuretic regimen secondary to immobility and concern with making it to the bathroom to urinate. She was initiated on Bumex drip had good response with significant output. Negative more than 15 L prior to discharge home. Was able to transition to twice daily dosing. Tolerating 2 mg Bumex p.o. twice daily, continued home spironolactone 100 mg daily and metolazone 5 mg twice daily -Extensive discussion about keeping Hernández versus discontinuing. Patient reports that she will adhere to her regimen and is comfortable not having Hernández in place after discussing high risk for UTI and complications. - Consider Jardiance or Farxiga when patient euvolemic however strong concern the patient is at high risk for infection due to body habitus and incontinence issues. Recommend further discussion as an outpatient. - Creatinine 1.1, BUN 19 on day of discharge. Potassium 3.8, magnesium 1.9. Needs repeat labs and follow-up with cardiology #Mobitz type II heart block #Pacemaker in situ Recent transfer to [email or web address] for pacemaker lead changing Appears to be capturing at this time. - Had a few episodes of chest pain during admission but EKGs were obtained and troponins obtained each time that were negative. No concern for ACS. #COPD without exacerbation No concern for COPD exacerbation during admission. Suspect her respiratory distress also has a component of obesity hypoventilation syndrome. Continue supplemental oxygen as needed for goal sats greater 90%. Currently on 2 L. #Hypothyroidism: continue home levothyroxine, TSH 6.0 #Morbid obesity BMI > 75. Spoke at length with patient and patient's family regarding calorie intake. Family does have to cook and bring all foods to patient and educated them on appropriate caloric intake to aid in weight loss. Complicates all aspects of care Continue home GLP-1 dosing #Anxiety and depression Continue Wellbutrin 200 mg daily Continue trazodone 300 mg nightly Anemia, iron deficient: 1 dose of Venofer during admission. Hemoglobin 8.1 on day of discharge. No active signs of bleeding. Total time spent on discharge 35 minutes in counseling, documentation, chart review, and direct care with patient. Exam Data for Last 24 hours Vital signs and Labs for Last 24 Hours: Temp Pulse Resp BP Pulse Ox O2 Del Method O2 Flow Rate 98.3 F 80 16 121/55 L 95 Nasal Cannula 3 05/05/25 04:00 05/05/25 04:00 05/05/25 04:00 05/05/25 04:00 05/05/25 06:07 05/05/25 06:07 05/05/25 06:07 FiO2 35 05/04/25 22:54 Laboratory Results - last 24 hr 05/04/25 17:09: POC Glucose 138 H 05/04/25 20:15: POC Glucose 155 H 05/05/25 05:45: WBC 10.1 D, RBC 3.85 L, Hgb 7.8 L, Hct 29.8 L, MCV 77.4 L, MCH 20.3 L, MCHC 26.2 L, RDW 19.9 H, Plt Count 329, MPV 9.6, Neut % (Auto) 69.7, Lymph % (Auto) 20.4, [place] % (Auto) 5.7, Eos % (Auto) 2.9, Baso % (Auto) 0.3, Neut # (Auto) 7.1, Lymph # (Auto) 2.1, [place] # (Auto) 0.6, Eos # (Auto) 0.3, Baso # (Auto) 0.0, Sodium 131 L, Potassium 3.8, Chloride 81 L, Carbon Dioxide > 40 H*, Anion Gap 13.8, BUN 16, Creatinine 1.00, Estimated Creat Clear 50, Estimated GFR 57 L, Est GFR ( Amer) 69, Glucose 107 H, Calcium 8.9, Magnesium 1.4 L D, Total Bilirubin 0.3, AST 17 D, ALT 12, Alkaline Phosphatase 118, Total Protein 6.7, Albumin 3.2 L, Globulin 3.5 H, Albumin/Globulin Ratio 0.9 L 05/05/25 05:55: POC Glucose 123 H I & O for Last 24 hours: Intake & Output 05/02/25 05/03/25 05/04/25 05/05/25 23:59 23:59 23:59 23:59 Intake Total 2850 / 3205 1485 / 1605 1020 / 1260 240 / 240 Output Total 6675 / 6675 4500 / 5700 4750 / 6050 1500 / 1500 Balance -3825 / -3470 -3015 / -4095 -3730 / -4790 -1260 / -1260 Weight 203 kg 161.842 kg 161.842 kg 160.935 kg Constitutional Constitutional: no acute distress, morbidly obese, chronically ill appearing and cooperative *Routine HEENT Exam Head: Present normocephalic and atraumatic *Routine Neck Exam Neck: Present full ROM *Routine Respiratory Exam Respiratory: Present CTA bilaterally, distant breath sounds and able to speak in complete sentences; Absent rhonchi or wheezes *Routine Cardiovascular Exam Cardiovascular: Present RRR *Routine Abdominal Exam Abdominal: Present normoactive bowel sounds and obese; Absent tenderness *Routine Rectal Exam Patient deferred: visual exam *Routine Exam Patient deferred: external exam *Routine Extremities Exam Extremities: Present edema (1+ lower extremities) and pallor *Routine Skin Exam Skin: Present intact and dry *Routine Neurological Exam Neurological: Present alert, oriented X3 and normal speech Routine Psychiatric Exam Psychiatric: Present cooperative and depressed Results Data Completed and Pending Labs on day of discharge: Labs from last 24 hours 05/05/25 05/05/25 05/04/25 05:55 05:45 20:15 WBC 10.1 D RBC 3.85 L Hgb 7.8 L Hct 29.8 L MCV 77.4 L MCH 20.3 L MCHC 26.2 L RDW 19.9 H Plt Count 329 MPV 9.6 Neut % (Auto) 69.7 Lymph % (Auto) 20.4 [place] % (Auto) 5.7 Eos % (Auto) 2.9 Baso % (Auto) 0.3 Neut # (Auto) 7.1 Lymph # (Auto) 2.1 [place] # (Auto) 0.6 Eos # (Auto) 0.3 Baso # (Auto) 0.0 Sodium 131 L Potassium 3.8 Chloride 81 L Carbon Dioxide > 40 H* Anion Gap 13.8 BUN 16 Creatinine 1.00 Estimated Creat Clear 50 Estimated GFR 57 L Est GFR ( Amer) 69 Glucose 107 H POC Glucose 123 H 155 H Calcium 8.9 Magnesium 1.4 L D Total Bilirubin 0.3 AST 17 D ALT 12 Alkaline Phosphatase 118 Total Protein 6.7 Albumin 3.2 L Globulin 3.5 H Albumin/Globulin Ratio 0.9 L 05/04/25 17:09 WBC RBC Hgb Hct MCV MCH MCHC RDW Plt Count MPV Neut % (Auto) Lymph % (Auto) [place] % (Auto) Eos % (Auto) Baso % (Auto) Neut # (Auto) Lymph # (Auto) [place] # (Auto) Eos # (Auto) Baso # (Auto) Sodium Potassium Chloride Carbon Dioxide Anion Gap BUN Creatinine Estimated Creat Clear Estimated GFR Est GFR ( Amer) Glucose POC Glucose 138 H Calcium Magnesium Total Bilirubin AST ALT Alkaline Phosphatase Total Protein Albumin Globulin Albumin/Globulin Ratio Preliminary micro results at discharge 05/02/25 00:05 Blood Culture - Preliminary Blood NO GROWTH AFTER 48 HOURS 05/02/25 00:05 Blood Culture - Preliminary Blood NO GROWTH AFTER 48 HOURS DS: Diagnosis Discharge Diagnosis (1) Morbid obesity with body mass index (BMI) greater than or equal to 70 in adult: Status: Acute Code(s): E66.01 - Morbid (severe) obesity due to excess calories; Z68.45 - Body mass index [BMI] 70 or greater, adult (2) Volume overload: Status: Acute Code(s): E87.70 - Fluid overload, unspecified (3) Acute and chronic respiratory failure with hypoxia: Status: Acute Code(s): J96.21 - Acute and chronic respiratory failure with hypoxia (4) Morbid obesity: Status: Acute Code(s): E66.01 - Morbid (severe) obesity due to excess calories (5) Hypothyroidism: Status: Acute Code(s): E03.9 - Hypothyroidism, unspecified Qualifiers: Hypothyroidism type: unspecified Qualified Code(s): E03.9 - Hypothyroidism, unspecified (6) HONEY (obstructive sleep apnea): Status: Acute Code(s): G47.33 - Obstructive sleep apnea (adult) (pediatric) Meds Home Medications and Allergies Home Medications ?Medication ?Instructions ?Recorded ?Confirmed ?Type calcium carbonate (Calcium 600) 600 mg PO DAILY 10/03/23 05/02/25 History cholecalciferol (vitamin D3) 1,250 1,250 mcg PO WEEKLY #12 caps 05/26/24 05/02/25 Rx mcg (50,000 unit) capsule fluticasone fur. 100 mcg-umeclid 1 inh inhalation DAILY 09/24/24 05/02/25 History 62.5 mcg-vilant 25 mcg inhalat.powder (Trelegy Ellipta) evolocumab 140 mg/mL subcutaneous 140 mg SQ Q2W #2 mL 11/24/24 05/02/25 Rx pen injector (Meli Dowling) albuterol sulfate 90 mcg/actuation 2 puff inhalation Q4HP PRN 12/07/24 05/02/25 History aerosol inhaler Shortness Of Breath spironolactone 100 mg tablet 100 mg PO DAILY #90 tabs 12/23/24 05/02/25 Rx aspirin 81 mg tablet,delayed 81 mg PO DAILY 03/10/25 05/02/25 History release atorvastatin 40 mg tablet 40 mg PO HS 03/10/25 05/02/25 History cyanocobalamin (vitamin B-12) 1,000 mcg PO DAILY 03/10/25 05/02/25 History 1,000 mcg tablet ipratropium 0.5 mg-albuterol 3 mg 3 ml inhalation QIDP PRN Shortness 03/10/25 05/02/25 History (2.5 mg base)/3 mL nebulization Of Breath soln levothyroxine 150 mcg tablet 300 mcg PO DAILY 03/10/25 05/02/25 History ondansetron 4 mg disintegrating 4 mg PO Q8HP PRN Nausea And 03/10/25 05/02/25 History tablet Vomiting trazodone 150 mg tablet 300 mg PO HS 03/10/25 05/02/25 History chlorhexidine gluconate 0.12 % See Rx Instructions .Route .COMPLEX 03/21/25 05/02/25 History mouthwash pregabalin 75 mg capsule 75 mg PO BID #60 caps 04/19/25 05/02/25 Rx lancets (Accu-Chek Softclix #200 ea 04/24/25 05/02/25 Rx Lancets) bupropion HCl 200 mg tablet,12 hr 200 mg PO BID #180 ea 05/01/25 05/02/25 Rx sustained-release metformin 500 mg tablet 500 mg PO BID 05/02/25 05/02/25 History ropinirole 4 mg tablet 4 mg PO DAILY 05/02/25 05/02/25 History semaglutide 1 mg/dose (4 mg/3 mL) 1 mg SQ WEEKLY 05/02/25 05/02/25 History subcutaneous pen injector (Ozempic) bumetanide 1 mg tablet 2 mg (2 x 1 mg) PO BIDL 30 days 05/06/25 Rx #120 tabs metolazone 5 mg tablet 5 mg PO BIDL 30 days #0 tabs 05/06/25 05/02/25 Rx metoprolol tartrate 25 mg tablet 25 mg PO BID 30 days #60 tabs 05/06/25 Rx nystatin 100,000 unit/gram topical 1 unit topical BID 30 days #60 05/06/25 Rx powder grams New Prescriptions to Start Prescriptions: bumetanide Hernan Barros metoprolol tartrate Hernan Barros nystatin Hernan Barros Allergies Allergy/AdvReac Type Severity Reaction Status Date / Time adhesive tape (ADHESIVE TAPE) Allergy Unknown Blister Verified 03/31/25 13:02 hydromorphone (From DILAUDID) Allergy Unknown Hypotension Verified 03/31/25 13:02 nickel (NICKEL) Allergy Unknown Blister Verified 03/31/25 13:02 Discharge Plan Disposition Patient Disposition: Home, Self-Care Condition: Fair Discharge Order Discharge Orders: Discharge Order (Routine); Ordered 05/06/25 Ordered By: Hernan Barros Follow up Plan Follow up with: Vahid David MD [Staff Physician, Cardiology] - 1 week Referral Note: Office will call with follow up Prescriptions/Medication Reconciliation: New nystatin 100,000 unit/gram Powder 1 unit topical BID 30 Days Qty: 60 0RF metoprolol tartrate 25 mg Tablet 25 mg PO BID 30 Days Qty: 60 0RF bumetanide 1 mg Tablet 2 mg PO BIDL 30 Days Qty: 120 0RF Continued chlorhexidine gluconate 0.12 % mouthwash See Rx Instructions .ROUTE .COMPLEX Patient Comments: FILL SUPPLIED CUP (1/2 OUNCE); SWISH IN MOUTH FOR 30 SECONDS TWICE DAILY (AFTER BREAKFAST & BEFORE BEDTIME). SWISH THEN EXPEL REMAINDER OR USE DIRECTED. DO not swallow Rx Instructions: FILL SUPPLIED CUP (1/2 OUNCE); SWISH IN MOUTH FOR 30 SECONDS TWICE DAILY (AFTER BREAKFAST & BEFORE BEDTIME). SWISH THEN EXPEL REMAINDER OR USE DIRECTED. DO not swallow cholecalciferol (vitamin D3) 1,250 mcg (50,000 unit) capsule 1,250 mcg PO WEEKLY Qty: 12 3RF Repatha SureClick 140 mg/mL pen injector 140 mg SQ Q2W Qty: 2 5RF pregabalin 75 mg capsule 75 mg PO BID Qty: 60 1RF (DME) lancets [Accu-Chek Softclix Lancets] Misc See Rx Instructions .ROUTE .COMPLEX Qty: 200 3RF Dose Instruction: USE TO test blood sugar THREE TIMES DAILY Rx Instructions: USE TO test blood sugar THREE TIMES DAILY bupropion HCl 200 mg tablet sustained-release 12 hr 200 mg PO BID Qty: 180 3RF calcium carbonate [Calcium 600] 600 mg calcium (1,500 mg) Tablet 600 mg PO DAILY atorvastatin 40 mg tablet 40 mg PO HS ipratropium-albuterol 0.5 mg-3 mg(2.5 mg base)/3 mL solution for nebulization 3 ml inhalation QIDP PRN (Reason: Shortness Of Breath) cyanocobalamin (vitamin B-12) 1,000 mcg tablet 1,000 mcg PO DAILY aspirin 81 mg tablet,delayed release (DR/EC) 81 mg PO DAILY trazodone 150 mg tablet 300 mg PO HS levothyroxine 150 mcg tablet 300 mcg PO DAILY ondansetron 4 mg tablet,disintegrating 4 mg PO Q8HP PRN (Reason: Nausea And Vomiting) Trelegy Ellipta 100-62.5-25 mcg blister with device 1 inh INHALATION DAILY Patient Comments: INHALE 1 PUFF BY MOUTH EVERY DAY --RINSE MOUTH AFTER USE-- albuterol sulfate 90 mcg/actuation HFA aerosol inhaler 2 puff inhalation Q4HP PRN (Reason: Shortness Of Breath) spironolactone 100 mg tablet 100 mg PO DAILY Qty: 90 1RF metformin 500 mg tablet 500 mg PO BID ropinirole 4 mg tablet 4 mg PO DAILY Patient Comments: TAKE ONE TABLET BY MOUTH EVERY DAY Ozempic 1 mg/dose (4 mg/3 mL) pen injector 1 mg SQ WEEKLY Patient Comments: INJECT 1 MG SUBCUTANEOUSLY ONCE A WEEK Changed metolazone 5 mg tablet 5 mg PO BIDL 30 Days Qty: 0 0RF Discontinued torsemide 20 mg tablet 40 mg PO BID Patient Comments: TAKE THREE TABLETS BY MOUTH TWICE DAILY Problem Reconciliation Problems Reviewed?: Yes Patient Discharge Instructions ACTIVITY: Continue current activity DIET: continue same diet Patient Instructions: The Mediterranean Diet and Good Health, Two Gram Sodium Diet, High-Fiber Diet, DI for Respiratory Failure, Catheter-Associated Urinary Tract Infection, Using Nutrition Labels: Carbohydrate Diet, Heart-Healthy Consistent Carbohydrate Diet, Stop Light Heart Failure Print Language: Nauruan Providers Primary Care Provider: Provider,Referral Admit Provider: Hernan Barros Attending Provider: Hernan Barros
--- NOTE | 2025-05-08 11:01 | SW/DCPLANNER ---
Spoke with patient on the phone. Patient stated that she is doing good. Patient stated that she will call to schedule her follow up with cardiology. Patient stated that she was able to get her new medicine picked up from clinic pharmacy. Patient stated that she has no concerns or questions at this time. Lore Venegas
== END 2025-05-06 14:09 | disposition home or self-care (01) ==
LOC: ER 05-02 01:05 → 2ND 05-02 11:56
PROVIDERS: Nurse Practitioner Acute Care; Nurse Practitioner Family; Admitting Provider Internal Medicine Adolescent Medicine; Emergency Provider Emergency Medicine; Visit Provider Internal Medicine Adolescent Medicine
DX: I11.0 Hypertensive heart disease with heart failure (principal); I50.33 Acute on chronic diastolic (congestive) heart failure; J96.21 Acute and chronic respiratory failure with hypoxia; Z68.45 Body mass index [BMI] 70 or greater, adult; E66.2 Morbid (severe) obesity with alveolar hypoventilation; R65.10 Systemic inflammatory response syndrome (SIRS) of non-infectious origin without acute organ dysfunction; E03.9 Hypothyroidism, unspecified; I44.1 Atrioventricular block, second degree; Z95.0 Presence of cardiac pacemaker; J44.9 Chronic obstructive pulmonary disease, unspecified; F41.9 Anxiety disorder, unspecified; F32.A Depression, unspecified; D50.9 Iron deficiency anemia, unspecified; Z87.891 Personal history of nicotine dependence; E11.9 Type 2 diabetes mellitus without complications; E78.5 Hyperlipidemia, unspecified; Z86.16 Personal history of COVID-19; Z86.73 Personal history of transient ischemic attack (TIA), and cerebral infarction without residual deficits; Z79.82 Long term (current) use of aspirin; Z91.128 Patient's intentional underdosing of medication regimen for other reason; T50.2X6A Underdosing of carbonic-anhydrase inhibitors, benzothiadiazides and other diuretics, initial encounter
CPT/HCPCS: 0223U; 36415; 51702; 71045; 80048; 80053; 80061; 81001; 82803; 82962; 83605; 83735; 83880; 84145; 84439; 84443; 84484; 85025; 85378; 85610; 87040; 93005; 93306; 93308; 94640; 94660; 94760; 94761; 97110; 97162; 97166; 97530; 99285; J1650; J1756; J1938; J1939; J2270; J3475

== ENCOUNTER → 2025-05-15 06:16 | Outpatient (CLI) | payer MEDICARE, OTHER, SELFPAY ==
--- OUTSIDE RECORDS SUMMARY | 2025-05-15 06:18 | XMS_ITS | Clinical Summary ---
Author Organization [facility] Address [address] [place] [address] Care Team Providers Care Inspector Electromechanical Name Role Phone Vahid Garcia Nazia DO Primary Care Provider [phone] Allergies Active Allergy Reactions Criticality Noted Date [...] time in the past 12 m [facility], were you homeless or living in a prison (including now)? No 01/10/2025 Utilities Answer Date [...] Wellness (AWV) 1968 UKY-Infant/Child/Adol SDOH Screenings 1968 [id number] Vaccine (#1) 1973 Diabetes: Dental Exam 1978 [...] Adults <6.0% Children and Adolescents <7.5% Source: [employer]. Standards of medical care in diabetes,2017. Diabetes Care.2017:40 (suppl 1):S1-S135. us Elvia Lopez APRN, DNP LAB BLOOD ORDERABLES Final Result [facility] [address] [place] [address] * ED HIV 1/2 Antibody/Antigen Screen w/Reflex to HIV 1/2 Differentiation (01/07/2025 11:31 AM EDT) [facility] HIV 1 & 2 Antibody/Antigen Screen Non Reactive Non Reactive 01/07/2025 12:34 PM EDT [facility] Comment:Screening for HIV 1 & 2 antibodies, and P24 antigen is NONREACTIVE. No confirmatory testing is required. Blood Venous blood specimen / Unknown Venipuncture / Unknown 01/07/2025 11:31 AM EDT 01/07/2025 11:53 AM EDT Brenton Patton MD LAB BLOOD ORDERABLES Final Result [facility] [address] [place] [address] * Hepatitis C Antibody - ED (01/07/2025 11:31 AM EDT) [facility] Hepatitis C Antibody Negative Negative 01/07/2025 12:34 PM EDT [facility] Blood Venous blood specimen / Unknown Venipuncture / Unknown 01/07/2025 11:31 AM EDT 01/07/2025 11:53 AM EDT Brenton Patton MD LAB BLOOD ORDERABLES Final Result [facility] [address] [place] [address] from Last 3 Months or Most Recently Relevant to Health Maintenance Insurance AETNA [facility] MEDICAID [employer] MEDICARE Advance Directives * Full Code (Latest Code Status on File) Date Activated Date Inactivated Comments 01/07/2025 5:01 PM 01/14/2025 6:55 PM Question Answer Comments I have reviewed the capacity from the link above and, if needed, have updated to appropriate status: Yes Care Teams Inspector Electromechanical Relationship Specialty Start Date End Date Vahid Garcia DO [address] [place] [id number] PCP - General 01/10/25
--- OUTSIDE RECORDS SUMMARY | 2025-05-15 07:17 | XMS_ITS | CCD ---
Author Organization Unknown Care Team Providers Care Professional Security Officer Name Role Phone Unavailable Primary Care Provider Unavailabl e Unavailable Chronic Care Management Unavaila ble Summary Purpose DataExchange Insurance Providers Payer name Policy type / Coverage type Covered democrat ID Effective Begin Date Effective End Date [facility] [id number] Unknown Unknown Family History Family History data not found Medication Administered No Medication Administered data Reason For Visit No Reason For Visit data Medical Equipment No Medical Equipment data Advance Directives No Advance Directive data
== END ==
LOC: SL 06:16
PROVIDERS: PCP Internal Medicine; Visit Provider Internal Medicine
DX: G47.33 Obstructive sleep apnea (adult) (pediatric) (principal); G47.36 Sleep related hypoventilation in conditions classified elsewhere
CPT/HCPCS: G0399

== ENCOUNTER 2025-07-01 09:58 | Observation (INO) | payer MEDICARE, OTHER, SELFPAY ==
--- OUTSIDE RECORDS SUMMARY | 2025-05-29 19:00 | XMS_ITS | Clinical Summary ---
Author Organization Unknown Care Team Providers Care Sustainable Design Coordinator Name Role Phone KAYLEN PAYNE, KADE Unavailable Unavailable JCARLOS RN, AYLIN Unavailable Unavailable HOLLIE CASILLASN, PAVEL Unavailable Unav ailable RAVINDER PT, DEBRA Unavailable Unavailable INNA SUPERVISOR PLASMA, CHAPIS Unavailable Unavailable SHANIKA OT, DELMA Unavailable Unavailable Payers Payer Name Policy Type Policy Number Effective Date Expira tion Date DC.O.C.AUTH [id number] Problems Condition Name Condition Details Condition Category Status Onset Date Resolution Date Last Treatment Date Treating Clinician Comments HYPERTENSIVE HEART DISEASE WITH HEART FAILURE Active 2024-07 00:00: 00 ACUTE ON CHRONIC DIASTOLIC (CONGESTIVE) HEART FAILURE Active 2024-07 00:00: 00 FLUID OVERLOAD, UNSPECIFIED Active 2024-07 00:00: 00 ACUTE AND CHRONIC RESPIRATORY FAILURE WITH HYPOXIA Active 2024-07 00:00: 00 OTHER SPECIFIED CHRONIC OBSTRUCTIVE PULMONARY DISEASE Active 2024-07 00:00: 00 TYPE 2 DIABETES MELLITUS WITHOUT COMPLICATION S Active 2024-07 00:00: 00 MORBID (SEVERE) OBESITY DUE TO EXCESS CALORIES Active 2024-07 00:00: 00 BODY MASS INDEX [BMI] 70 OR GREATER, ADULT Active 07-20 00:00: 00 PRESENCE OF CARDIAC PACEMAKER Active 2024-07 00:00: 00 DEPENDENCE ON SUPPLEMENTAL OXYGEN Active 07-20 00:00: 00 LNG TRM (CRNT) USE INJECTABLE NON-INSULIN ANTIDIABETIC DRUGS Active 07-20 00:00: 00 Allergies, Adverse Reactions, Alerts Allergy Name Allergy Type Status Severity Reaction(s) Onset Date Inactive Date Treating Clinician Comments DILAUDID Propensity to adverse reactions Active 2025-04 14:19:0 4 Medications Ordered Medication Name Filled Medication Name Start Date Stop Date Current Medication? Ordering Clinician Indication Dosage Frequency Signature (SIG) Comments Components cephalexin 500 mg capsule 12-07 00:00: 00 12-13 00:00 :00 No [id number] Per instruc tions Per instructio ns (route: oral) Med Classific ation: Anti-Infe ctive Agents metoprolol succinate ER 25 mg tablet,exte nded release 24 hr 12-07 00:00: 00 05-05 23:59 :00 No [id number] BP 1 tablet DAILY 1 tablet DAILY (route: oral) Med Classific ation: Cardiovas cular Therapy Agents atorvastati n 40 mg tablet 11-30 00:00: 00 05-05 23:59 :00 No [id number] CHOLESTEROL 1 tablet EVERY DAY AT BEDTIME 1 tablet EVERY DAY AT BEDTIME (route: oral) Med Classific ation: Cardiovas cular Therapy Agents cyanocobala min (vit B-12) 1,000 mcg tablet 11-30 00:00: 00 05-05 23:59 :00 No [id number] SUPPLEMENT 1 tablet EVERY DAY 1 tablet EVERY DAY (route: oral) Med Classific ation: Electroly te Balance-N utritiona l Products chlorhexidi ne gluconate 0.12 % mouthwash 11-26 00:00: 00 12-13 00:00 :00 No [id number] Per instruc tions FOR 30 SECONDS TWICE DAILY DIRECTED Per instructio ns FOR 30 SECONDS TWICE DAILY DIRECTED (route: mucous membrane) Med Classific ation: Mouth-Thr oat-Denta l - Preparati ons Repatha SureClick 140 mg/mL subcutaneou s pen injector 11-24 00:00: 00 05-05 23:59 :00 No [id number] CHOLESTEROL 1 mL 140 MG SUBCUTANEO USLY every 1 mL 140 MG SUBCUTANEO USLY every (route: subcutaneo us) Med Classific ation: Cardiovas cular Therapy Agents albuterol sulfate HFA 90 mcg/actuati on aerosol inhaler 11-23 00:00: 00 05-05 23:59 :00 No [id number] SOB 12 puff EVERY 4 TO 6 HOURS NEEDED 12 puff EVERY 4 TO 6 HOURS NEEDED (route: inhalation ) Med Classific ation: Respirato ry Therapy Agents torsemide 20 mg tablet 11-22 00:00: 00 05-05 23:59 :00 No [id number] Unavailable 1 tablet TWICE DAILY 1 tablet TWICE DAILY (route: oral) Med Classific ation: Cardiovas cular Therapy Agents ropinirole 4 mg tablet 11-11 00:00: 00 05-05 23:59 :00 No [id number] RLS 1 tablet EVERY DAY 1 tablet EVERY DAY (route: oral) Med Classific ation: Central Nervous System Agents Aspirin Childrens 81 mg chewable tablet 12-13 00:00: 00 05-05 23:59 :00 No [id number] HEART 1 tablet DAILY 1 tablet DAILY (route: oral) Med Classific ation: Hematolog ical Agents bupropion HCl SR 200 mg tablet,12 hr sustained-r elease 12-13 00:00: 00 05-05 23:59 :00 No [id number] MOOD 2 tablet DAILY 2 tablet DAILY (route: oral) Med Classific ation: Central Nervous System Agents cholecalcif brittani (vitamin D3) 1,250 mcg (50,000 unit) capsule 12-13 00:00: 00 05-05 23:59 :00 No [id number] SUPPLEMENT 1 capsule WEEKLY 1 capsule WEEKLY (route: oral) Med Classific ation: Electroly te Balance-N utritiona l Products ipratropium 0.5 mg-albutero l 3 mg (2.5 mg base)/3 mL nebulizatio n soln 12-13 00:00: 00 05-05 23:59 :00 No [id number] SOB 3 mL EVERY 4 HOURS 3 mL EVERY 4 HOURS (route: inhalation ) Med Classific ation: Respirato ry Therapy Agents levothyroxi ne 150 mcg tablet 12-13 00:00: 00 05-05 23:59 :00 No [id number] THYROID 2 tablet DAILY 2 tablet DAILY (route: oral) Med Classific ation: Endocrine lisinopril 40 mg tablet 12-13 00:00: 00 05-05 23:59 :00 No [id number] HTN 1 tablet DAILY 1 tablet DAILY (route: oral) Med Classific ation: Cardiovas cular Therapy Agents meloxicam 15 mg tablet 12-13 00:00: 00 05-05 23:59 :00 No [id number] INFLAMMATIO N 1 tablet DAILY 1 tablet DAILY (route: oral) Med Classific ation: Analgesic , Anti-infl ammatory or Antipyret ic metformin 500 mg tablet 12-13 00:00: 00 05-05 23:59 :00 No [id number] BLOOD GLUCOSE 2 tablet DAILY 2 tablet DAILY (route: oral) Med Classific ation: Endocrine oxybutynin chloride 5 mg tablet 12-13 00:00: 00 05-05 23:59 :00 No [id number] OAB 1 tablet DAILY 1 tablet DAILY (route: oral) Med Classific ation: Genitouri nary Therapy semaglutide 0.25 mg/0.05 mL subcutaneou s syringe 12-13 00:00: 00 05-05 23:59 :00 No [id number] BLOOD GLUCOSE 0.5 mg WEEKLY 0.5 mg WEEKLY (route: subcutaneo us) Med Classific ation: Endocrine spironolact one 25 mg tablet 12-13 00:00: 00 05-05 23:59 :00 No [id number] DIURETIC 1 tablet DAILY 1 tablet DAILY (route: oral) Med Classific ation: Cardiovas cular Therapy Agents trazodone 150 mg tablet 12-13 00:00: 00 05-05 23:59 :00 No [id number] SLEEP 1 tablet DAILY 1 tablet DAILY (route: oral) Med Classific ation: Central Nervous System Agents midodrine 10 mg tablet 01-17 00:00: 00 05-05 23:59 :00 No [id number] HYPOTENSION 10 mg 3 TIMES DAILY 10 mg 3 TIMES DAILY (route: oral) Med Classific ation: Cardiovas cular Therapy Agents bupropion HCl SR 200 mg tablet,12 hr sustained-r elease 2024-07 00:00: 00 Yes [id number] DEPRESSION 1 tablet DAILY 1 tablet DAILY (route: oral) Med Classific ation: Central Nervous System Agents metformin 500 mg tablet 2024-07 00:00: 00 Yes [id number] DN 1 tablet DAILY 1 tablet DAILY (route: oral) Med Classific ation: Endocrine Accu-Chek Softclix Lancets 2024-07 00:00: 00 Yes [id number] Unavailable Per instruc tions TO test blood sugar THREE TIMES DAILY Per instructio ns TO test blood sugar THREE TIMES DAILY (route: miscellane ous) Med Classific ation: Medical Supplies and Durable Medical Equipment (DME) ropinirole 4 mg tablet 2024-07 00:00: 00 Yes [id number] RESTLESS LEGS Per instruc tions EVERY DAY Per instructio ns EVERY DAY (route: oral) Med Classific ation: Central Nervous System Agents levothyroxi ne 150 mcg tablet 2024-07 0 00:00: 00 Yes [id number] THYROID 1 tablet EVERY DAY 1 tablet EVERY DAY (route: oral) Med Classific ation: Endocrine pregabalin 75 mg capsule 2024-07 0 00:00: 00 Yes [id number] NEUROPATHY Per instruc tions TWICE DAILY Per instructio ns TWICE DAILY (route: oral) Med Classific ation: Central Nervous System Agents spironolact one 100 mg tablet 2024-07 00:00: 00 Yes [id number] DIURETUC Per instruc tions EVERY DAY Per instructio ns EVERY DAY (route: oral) Med Classific ation: Cardiovas cular Therapy Agents trazodone 150 mg tablet 2024-07 0 00:00: 00 Yes [id number] SLEEP 1 tablet DAILY 1 tablet DAILY (route: oral) Med Classific ation: Central Nervous System Agents albuterol sulfate HFA 90 mcg/actuati on aerosol inhaler 2024-07 0 00:00: 00 Yes [id number] SOA Per instruc tions EVERY 4 TO 6 HOURS NEEDED Per instructio ns EVERY 4 TO 6 HOURS NEEDED (route: inhalation ) Med Classific ation: Respirato ry Therapy Agents aspirin 81 mg tablet,mishel yed release 2024-07 00:00: 00 Yes [id number] ASA Per instruc tions EVERY DAY Per instructio ns EVERY DAY (route: oral) Med Classific ation: Hematolog ical Agents chlorhexidi ne gluconate 0.12 % mouthwash 2024-07 00:00: 00 Yes [id number] THRUSH Per instruc tions FOR 30 SECONDS TWICE DAILY DIRECTED Per instructio ns FOR 30 SECONDS TWICE DAILY DIRECTED (route: mucous membrane) Med Classific ation: Mouth-Thr oat-Denta l - Preparati ons cyanocobala min (vit B-12) 1,000 mcg tablet 2024-07 00:00: 00 Yes [id number] SUPP 1 tablet EVERY DAY 1 tablet EVERY DAY (route: oral) Med Classific ation: Electroly te Balance-N utritiona l Products ipratropium 0.5 mg-albutero l 3 mg (2.5 mg base)/3 mL nebulizatio n soln 2024-07 00:00: 00 Yes [id number] SOA Per instruc tions FOUR TIMES DAILY NEEDED Per instructio ns FOUR TIMES DAILY NEEDED (route: inhalation ) Med Classific ation: Respirato ry Therapy Agents Ozempic 1 mg/dose (4 mg/3 mL) subcutaneou s pen injector 2024-07 00:00: 00 Yes [id number] DM Per instruc tions 1 MG SUBCUTANEO USLY ONCE A WEEK Per instructio ns 1 MG SUBCUTANEO USLY ONCE A WEEK (route: subcutaneo us) Med Classific ation: Endocrine Repatha SureClick 140 mg/mL subcutaneou s pen injector 2024-07 00:00: 00 Yes [id number] RA Per instruc tions 140 MG SUBCUTANEO USLY every Per instructio ns 140 MG SUBCUTANEO USLY every (route: subcutaneo us) Med Classific ation: Cardiovas cular Therapy Agents torsemide 20 mg tablet 2024-07 00:00: 00 Yes [id number] DIURETIC Per instruc tions THREE TIMES DAILY Per instructio ns THREE TIMES DAILY (route: oral) Med Classific ation: Cardiovas cular Therapy Agents Vital Signs Vital Name Observation Time Observation Value Commen ts Temperature 2025-05-30 11:02:00.000 97.9 [degF] Temperature 2025-05-15 11:41:00.000 97.8 [degF] BMI (%) 2025-05-12 14:16:31.000 72 kg/m2 Height 2025-05-12 14:16:24.000 63 [in_us] Pulse 2025-05-30 11:02:00.000 78 /min Pulse 2025-05-15 11:41:00.000 80 /min Respirations 2025-05-30 11:02:00.000 18 /min Respirations 2025-05-15 11:41:00.000 18 /min Weight (lbs) 2025-05-12 14:16:31.000 411 [lb_av] Systolic Blood Pressure 2025-05-30 11:02:00.000 140 mm [Hg] Systolic Blood Pressure 2025-05-15 11:41:00.000 104 mm [Hg] Diastolic Blood Pressure 2025-05-30 11:02:00.000 77 mm [Hg] Diastolic Blood Pressure 2025-05-15 11:41:00.000 60 mm [Hg] Plan of Treatment Planned Activity Planned Date Details Comments Future Scheduled Test RN TO OBSE RVE, ASSESS, EVALUATE, AND DEVELOP AN INDIVIDUALIZED PLAN OF CARE. AGENCY MAY ACCEPT ORDERS FROM CONSULTING PHYSICIANS RN TO OBSERVE AND ASSESS, ANIMAL HUSBANDRY TEACHER/MONUMENT CARVER TO OBSERVE FOR RISK FOR FALLS AND INSTRUCT IN FALL PREVENTION, HOME SAFETY, MEDICATION MANAGEMENT, INFECTION PREVENTION, AND NUTRITION MANAGEMENT. RN/ANIMAL HUSBANDRY TEACHER/MONUMENT CARVER NURSE MAY PERFORM O2 SATURATION LEVEL ON ADMISSION AND PRN FOR RN TO ASSESS/ANIMAL HUSBANDRY TEACHER TO OBSERVE PATIENT, WITH NOTIFICATION TO THE PHYSICIAN IF SATURATION IS 90% IN THE ABSENCE OF MORE SPECIFIC PARAMETERS FROM THE PHYSICIAN. AGENCY MAY PERFORM A RESUMPTION OF CARE VISIT FOLLOWING ANY HOSPITAL ADMISSION. RN/ANIMAL HUSBANDRY TEACHER/MONUMENT CARVER TO MONITOR CO-MORBID CONDITIONS LISTED ON THE PLAN OF CARE AND ANY NEW CONDITIONS THAT PRESENT THEMSELVES DURING THIS EPISODE TO IDENTIFY CHANGES AND INTERVENE TO MINIMIZE COMPLICATIONS. [code = RN TO OBSERVE, ASSESS, EVALUATE, AND DEVELOP AN INDIVIDUALIZED PLAN OF CARE. AGENCY MAY ACCEPT ORDERS FROM CONSULTING PHYSICIANS RN TO OBSERVE AND ASSESS, ANIMAL HUSBANDRY TEACHER/MONUMENT CARVER TO OBSERVE FOR RISK FOR FALLS AND INSTRUCT IN FALL PREVENTION, HOME SAFETY, MEDICATION MANAGEMENT, INFECTION PREVENTION, AND NUTRITION MANAGEMENT. RN/ANIMAL HUSBANDRY TEACHER/MONUMENT CARVER NURSE MAY PERFORM O2 SATURATION LEVEL ON ADMISSION AND PRN FOR RN TO ASSESS/ANIMAL HUSBANDRY TEACHER TO OBSERVE PATIENT, WITH NOTIFICATION TO THE PHYSICIAN IF SATURATION IS 90% IN THE ABSENCE OF MORE SPECIFIC PARAMETERS FROM THE PHYSICIAN. AGENCY MAY PERFORM A RESUMPTION OF CARE VISIT FOLLOWING ANY HOSPITAL ADMISSION. RN/ANIMAL HUSBANDRY TEACHER/MONUMENT CARVER TO MONITOR CO-MORBID CONDITIONS LISTED ON THE PLAN OF CARE AND ANY NEW CONDITIONS THAT PRESENT THEMSELVES DURING THIS EPISODE TO IDENTIFY CHANGES AND INTERVENE TO MINIMIZE COMPLICATIONS.] Future Scheduled Test MEDICATION MANAGEMENT; RN/ANIMAL HUSBANDRY TEACHER/MONUMENT CARVER TO REVIEW MEDICATIONS FOR INTERACTIONS, EFFECTIVENESS OF DRUG THERAPY, AND SIGNS/SYMPTOMS OF ADVERSE REACTIONS. MAY INSTRUCT AND REINFORCE MEDICATION TEACHING RELATED TO THE USE OF MEDICATIONS, DOSAGE, FREQUENCY, PURPOSE, SIDE EFFECTS, AND TO REPORT COMPLICATIONS. [code = MEDICATION MANAGEMENT; RN/ANIMAL HUSBANDRY TEACHER/MONUMENT CARVER TO REVIEW MEDICATIONS FOR INTERACTIONS, EFFECTIVENESS OF DRUG THERAPY, AND SIGNS/SYMPTOMS OF ADVERSE REACTIONS. MAY INSTRUCT AND REINFORCE MEDICATION TEACHING RELATED TO THE USE OF MEDICATIONS, DOSAGE, FREQUENCY, PURPOSE, SIDE EFFECTS, AND TO REPORT COMPLICATIONS.] Future Scheduled Test RISK FOR H OSPITALIZATION; RN TO ASSESS/TEACH, MONUMENT CARVER/ANIMAL HUSBANDRY TEACHER TO OBSERVE/TEACH PATIENT/CAREGIVER ON RISK FOR HOSPITALIZATION/EMERGENCY ROOM VISITS, TEACH SIGNS AND SYMPTOMS THAT PUT PATIENT AT RISK, WHEN TO NOTIFY NURSE/PHYSICIAN OF COMPLICATIONS/DECLINE, AND WHEN TO CALL 911. [code = RISK FOR HOSPITALIZATION; RN TO ASSESS/TEACH, MONUMENT CARVER/ANIMAL HUSBANDRY TEACHER TO OBSERVE/TEACH PATIENT/CAREGIVER ON RISK FOR HOSPITALIZATION/EMERGENCY ROOM VISITS, TEACH SIGNS AND SYMPTOMS THAT PUT PATIENT AT RISK, WHEN TO NOTIFY NURSE/PHYSICIAN OF COMPLICATIONS/DECLINE, AND WHEN TO CALL 911.] Future Scheduled Test CARDIOVASC ULAR SYSTEM; RN TO ASSESS/TEACH, ANIMAL HUSBANDRY TEACHER/MONUMENT CARVER TO OBSERVE/TEACH RELATED TO ALTERED CARDIOVASCULAR STATUS TO MINIMIZE COMPLICATIONS AND REDUCE HOSPITALIZATION. [code = CARDIOVASCULAR SYSTEM; RN TO ASSESS/TEACH, ANIMAL HUSBANDRY TEACHER/MONUMENT CARVER TO OBSERVE/TEACH RELATED TO ALTERED CARDIOVASCULAR STATUS TO MINIMIZE COMPLICATIONS AND REDUCE HOSPITALIZATION.] Future Scheduled Test HEART FAIL URE; RN TO ASSESS/TEACH, ANIMAL HUSBANDRY TEACHER/MONUMENT CARVER TO OBSERVE/TEACH CARDIOPULMONARY SYSTEM TO IDENTIFY SIGNS [...] [code = HEART FAILURE; RN TO ASSESS/TEACH, ANIMAL HUSBANDRY TEACHER/MONUMENT CARVER TO OBSERVE/TEACH CARDIOPULMONARY SYSTEM TO IDENTIFY SIGNS [...] BE PROVIDED IF NEEDED.] Future Scheduled Test RESPIRATOR Y SYSTEM MANAGEMENT; RN TO ASSESS AND TEACH, ANIMAL HUSBANDRY TEACHER/MONUMENT CARVER TO OBSERVE AND TEACH RELATED TO ALTERED RESPIRATORY STATUS TO MINIMIZE COMPLICATIONS AND REDUCE HOSPITALIZATION. [code = RESPIRATORY SYSTEM MANAGEMENT; RN TO ASSESS AND TEACH, ANIMAL HUSBANDRY TEACHER/MONUMENT CARVER TO OBSERVE AND TEACH RELATED TO ALTERED RESPIRATORY STATUS TO MINIMIZE COMPLICATIONS AND REDUCE HOSPITALIZATION.] Future Scheduled Test OXYGEN THE RAPY; RN/ANIMAL HUSBANDRY TEACHER/MONUMENT CARVER TO INSTRUCT ON OXYGEN MANAGEMENT INCLUDING: ADMINISTRATION AT 2 L/MIN VIA TX CONTINUOUS CARE OF EQUIPMENT AND SAFETY. [code = OXYGEN THERAPY; RN/ANIMAL HUSBANDRY TEACHER/MONUMENT CARVER TO INSTRUCT ON OXYGEN MANAGEMENT INCLUDING: ADMINISTRATION AT 2 L/MIN VIA TX CONTINUOUS CARE OF EQUIPMENT AND SAFETY.] Future Scheduled Test GENITOURIN MILADY MANAGEMENT; RN TO ASSESS AND TEACH, ANIMAL HUSBANDRY TEACHER/MONUMENT CARVER TO OBSERVE AND TEACH RELATED TO ALTERED GENITOURINARY STATUS TO MINIMIZE COMPLICATIONS AND REDUCE HOSPITALIZATION. [code = GENITOURINARY MANAGEMENT; RN TO ASSESS AND TEACH, ANIMAL HUSBANDRY TEACHER/MONUMENT CARVER TO OBSERVE AND TEACH RELATED TO ALTERED GENITOURINARY STATUS TO MINIMIZE COMPLICATIONS AND REDUCE HOSPITALIZATION.] Future Scheduled Test URINARY IN CONTINENCE MANAGEMENT; RN TO ASSESS AND TEACH, ANIMAL HUSBANDRY TEACHER/MONUMENT CARVER TO OBSERVE AND TEACH MANAGEMENT OF URINARY INCONTINENCE. TEACH/INSTRUCT ON PREVENTING INFECTION AND SKIN BREAKDOWN. RN/ANIMAL HUSBANDRY TEACHER/MONUMENT CARVER MAY INSTRUCT IN BLADDER TRAINING PROGRAM INDICATED. [code = URINARY INCONTINENCE MANAGEMENT; RN TO ASSESS AND TEACH, ANIMAL HUSBANDRY TEACHER/MONUMENT CARVER TO OBSERVE AND TEACH MANAGEMENT OF URINARY INCONTINENCE. TEACH/INSTRUCT ON PREVENTING INFECTION AND SKIN BREAKDOWN. RN/ANIMAL HUSBANDRY TEACHER/MONUMENT CARVER MAY INSTRUCT IN BLADDER TRAINING PROGRAM INDICATED.] Future Scheduled Test FALL REDUC TION MANAGEMENT; RN TO ASSESS AND OBSERVE, ANIMAL HUSBANDRY TEACHER/MONUMENT CARVER TO OBSERVE FALL RISK FACTORS AND EDUCATE PATIENT/CAREGIVER ON STRATEGIES TO MINIMIZE THE RISK OF FALLING. [code = FALL REDUCTION MANAGEMENT; RN TO ASSESS AND OBSERVE, ANIMAL HUSBANDRY TEACHER/MONUMENT CARVER TO OBSERVE FALL RISK FACTORS AND EDUCATE PATIENT/CAREGIVER ON STRATEGIES TO MINIMIZE THE RISK OF FALLING.] Future Scheduled Test PHYSICAL T HERAPIST TO EVALUATE FOR GAIT AND BALANCE [code = PHYSICAL THERAPIST TO EVALUATE FOR GAIT AND BALANCE] Future Scheduled Test OCCUPATION AL THERAPIST TO EVALUATE FOR SAFETY IN ADLS [code = OCCUPATIONAL THERAPIST TO EVALUATE FOR SAFETY IN ADLS] Goal 2025-05-30 Patient Goal - TO GET STRONG ER Goal Provider Goal - A PLAN OF CARE WILL BE ESTABLISHED THAT MEETS THE PATIENT S NEEDS. PATIENT WILL DEMONSTRATE OXYGEN SATURATION WITHIN NORMAL LIMITS OR PATIENT S OPTIMAL LEVEL ESTABLISHED BY THE PHYSICIAN THROUGHOUT [...] TAKE MEDICATIONS PRESCRIBED WITHOUT ADVERSE EFFECTS BY 60 DAYS Goal Provider Goal - PATIENT/CAREGIVER WILL VERBALIZE UNDERSTANDING OF SIGNS AND SYMPTOMS THAT PUT THE PATIENT AT RISK FOR HOSPITALIZATION /EMERGENCY ROOM VISITS, WHEN TO NOTIFY NURSE/PHYSICIAN OF COMPLICATIONS/DECLINE AND WHEN TO CALL 911. Goal Provider Goal - PATIENT / CAREGIVER WILL VERBALIZE/DEMONSTRATE UNDERSTANDING OF MEASURES TO MANAGE ALTERED CARDIOVASCULAR STATUS BY 60 DAYS Goal Provider Goal - PATIENT / CAREGIVER [...] VERBALIZE/DEMONSTRATE UNDERSTANDING OF MEASURES TO MANAGE ALTERED GENITOURINARY STATUS BY END OF EPISODE. Goal Provider Goal - PATIENT/CAREGIVER WILL VERBALIZE/DEMONSTRATE UNDERSTANDING OF CARE AND MANAGEMENT OF URINARY INCONTINENCE BY 60 DAYS Goal Provider Goal - PATIENT/CAREGIVER WILL VERBALIZE/DEMONSTRATE UNDERSTANDING OF FALL RISK FACTORS AND IMPLEMENT STRATEGIES TO MINIMIZE FALL RISK. PATIENT/CAREGIVER WILL VERBALIZE/DEMONSTRATE AN ABILITY TO ADHERE TO FALL REDUCTION SELF-MANAGEMENT AND LIFE-STYLE CHANGES BY 60 DAYS Goal Provider Goal - Goal Provider Goal - Reason for Visit INDEPENDENT IN THE HOME Encounters Start Date/Time End Date/Time Encounter Type Admission Type Attending [facility] Department Encounter ID Discharge Date Discharge Status Discharge Condition Discharge Reason Percent Goals Met 2025-05-12 00:00:00 2025-05-30 00:00:00 Outpatient [facility] [id number] 2025-05-30 00:00:00 DISCHARGE TO HOME OR SELF CARE INDEPENDEN T IN THE HOME HH - PER PHYSICIAN REQUEST 100.00
[2025-07-01] VITALS (12 sets, daily range): BP systolic 90–140; BP diastolic 40–88; PULSE 75–87; RESP 16–20; TEMP 36.8–36.9; O2SAT 93–98; BMI 78.8; BMI 74.1
--- NOTE | 2025-07-01 10:01 | PC.NURSE ---
blood sugar 56
--- OUTSIDE RECORDS SUMMARY | 2025-07-01 10:01 | XMS_ITS | Clinical Summary ---
Author Organization [facility] Address [address] [address] Care Team Providers Care Welder Name Role Phone Catherine Alcaraz Dr Primary Care Provider Unavailabl e Encounters Date Type Department Care Team Description 06/07/2025 Orders Only [facility] - Cardiology [address] [place] [address] Roger Aranda MD Cardiac pacemaker in situ (Primary Dx) from Last 3 Months Social History Tobacco [...] SDOH Screening 07/20/2024 COVID-19 Vaccine (1 - 2024-2 6 season) 2025 Influenza Vaccine (#1) 2025 3, [...] patient's age to complete this topic Insurance [employer] MEDICARE ADVANTAGE AETNA [facility] Care Teams Welder Relationship Specialty Start Date End Date Catherine Alcaraz Dr. PCP - General 11/17/24
--- OUTSIDE RECORDS SUMMARY | 2025-07-01 10:01 | XMS_ITS | CCD ---
Author Organization Unknown Care Team Providers Care National Secretary Name Role Phone Unavailable Primary Care Provider Unavailabl e Unavailable Chronic Care Management Unavaila ble Summary Purpose DataExchange Insurance Providers Payer name Policy type / Coverage type Covered alliance party ID Effective Begin Date Effective End Date [facility] [id number] Unknown Unknown Family History Family History data not found Medication Administered No Medication Administered data Reason For Visit No Reason For Visit data Medical Equipment No Medical Equipment data Advance Directives No Advance Directive data
--- OUTSIDE RECORDS SUMMARY | 2025-07-01 10:01 | XMS_ITS | Clinical Summary ---
Author Organization [facility] Address [address] [place] [address] Care Team Providers Care Cyber Engineer Name Role Phone Vahid Garcia Nazia DO Primary Care Provider [phone] Allergies Active Allergy Reactions Criticality Noted Date [...] time in the past 12 m [facility], were you homeless or living in a [...] Wellness (AWV) 1968 [facility]-Infant/Child/Adol SDOH Screenings 1968 [id number] Vaccine (#1) 1973 Diabetes: Dental Exam 1978 [...] 6.6(H) <5.7 % 01/08/2025 12:52 PM EDT [facility] Blood Venous blood specimen / Unknown Venipuncture / Unknown 01/07/2025 6:29 PM EDT 01/07/2025 6:34 PM EDT Narrative [facility] - 01/08/2025 12:52 PM EDT HA1C Interpretive Data: Diagnosis of Diabetes: Diabetic > or = 6.5% Pre-diabetic 5.7 to 6.4% Non-diabetic < or = 5.6% Glycemic Targets for Type I and Type II Diabetics: Non- Adults <7.0% Adults <6.0% Children and Adolescents <7.5% Source: [place] [employer]. Standards of medical care in diabetes,2017. Diabetes Care.2017:40 (suppl 1):S1-S135. us Elvia Lopez APRN, DNP LAB BLOOD ORDERABLES Final Result [facility] [address] [place] [address] * ED HIV 1/2 Antibody/Antigen Screen w/Reflex to HIV 1/2 Differentiation (01/07/2025 11:31 AM EDT) [facility] HIV 1 & 2 Antibody/Antigen Screen Non Reactive Non Reactive 01/07/2025 12:34 PM EDT [facility] Comment:Screening for HIV 1 & 2 antibodies, and P24 antigen is NONREACTIVE. No confirmatory testing is required. Blood Venous blood specimen / Unknown Venipuncture / Unknown 01/07/2025 11:31 AM EDT 01/07/2025 11:53 AM EDT Brenton Patton MD LAB BLOOD ORDERABLES Final Result [facility] [address] [place] [address] * Hepatitis C Antibody - ED (01/07/2025 11:31 AM EDT) [facility] Hepatitis C Antibody Negative Negative 01/07/2025 12:34 PM EDT [facility] Blood Venous blood specimen / Unknown Venipuncture / Unknown 01/07/2025 11:31 AM EDT 01/07/2025 11:53 AM EDT Brenton Patton MD LAB BLOOD ORDERABLES Final Result [facility] [address] [place] [address] from Last 3 Months or Most Recently Relevant to Health Maintenance Insurance [employer] [facility] MEDICAID [employer] MEDICARE Advance Directives * Full Code (Latest Code Status on File) Date Activated Date Inactivated Comments 01/07/2025 5:01 PM 01/14/2025 6:55 PM Question Answer Comments I have reviewed the capacity from the link above and, if needed, have updated to appropriate status: Yes Care Teams Cyber Engineer Relationship Specialty Start Date End Date Vahid Garcia DO [address] [place] [id number] PCP - General 01/10/25
--- OUTSIDE RECORDS SUMMARY | 2025-07-01 10:02 | XMS_ITS | Encounter Summary ---
Author Organization [facility] Address [address] [place] [address] Care Team Providers Care Responder Name Role Phone Catherine Alcaraz Dr Primary Care Provider Unavailabl e Reason for Referral * Imaging (Routine) - Pending Review Specialty Diagnoses / Procedures Referred By Contac t Referred To Contact Cardiology Diagnoses Cardiac pacemaker in situ Procedures PM Remote - PaceArt Roger Aranda MD [address] [address] Phone: tel: fax: [facility] [address] [address] Phone: tel: fax: Referral ID Status Reason Start Date Expiration Date V isits Requested Visits Authorized [id number] Pending Review 06/07/2025 07/07/2026 1 1 Encounter Details Date Type Department Care Team (Late st Contact Info) Description 06/07/2025 Orders Only [facility] - Cardiology [address] [address] Roger Aranda MD [address] [address] Cardiac pacemaker in situ (Primary [...] Device Routine Cardiac pacemaker in situ Ordered: 06/07/2025 documented as of this encounter Visit Diagnoses Diagnosis Cardiac pacemaker in situ- Primary documented in this encounter Care Teams Responder Relationship Specialty Start Date End Date Catherine Alcaraz Dr. PCP - General 11/17/24 documented as of this encounter
--- NOTE | 2025-07-01 10:03 | CT_ITS ---
PROCEDURE INFORMATION: Exam: CT Abdomen And Pelvis With Contrast Exam date and time: 07/01/2025 11:08 AM Age: 55 years old Clinical indication: Other: Redness to abd poss abscess? TECHNIQUE: Imaging protocol: Computed tomography of the abdomen and pelvis with contrast. Radiation optimization: All CT scans at this facility use at least one of these dose optimization techniques: automated exposure control; mA and/or kV adjustment per patient size (includes targeted exams where dose is matched to clinical indication); or iterative reconstruction. Contrast material: ISOVUE; Contrast volume: 90 ml; Contrast route: IV; COMPARISON: MR ABDOMEN WO/W CON 04/23/2021 8:48 AM FINDINGS: Limitations: Exam is limited due to patient's body habitus. The abdominal wall is partially included in the field of view. Lungs: Bibasilar subsegmental atelectasis noted. Liver: Normal. No mass. Gallbladder and biliary ducts: Normal. No calcified stones. No ductal dilation. Pancreas: Normal. No ductal dilation. Spleen: Normal. No splenomegaly. Adrenal glands: Normal. No mass. Kidneys and ureters: Normal. No hydronephrosis. Stomach and bowel: Unremarkable. No obstruction. No mucosal thickening. Appendix: No evidence of appendicitis. Intraperitoneal space: There is stranding in the lower abdomen without obvious discrete collection. Vasculature: Unremarkable. No abdominal aortic aneurysm. Lymph nodes: Unremarkable. No enlarged lymph nodes. Urinary bladder: Unremarkable as visualized. Reproductive: There is an intrauterine contraceptive device in place, which appears appropriately positioned within the endometrial canal. Bones/joints: Unremarkable. No acute fracture. Soft tissues: There is a large left paramedian ventral hernia, incompletely imaged. IMPRESSION: 1. There is stranding in the lower abdomen without obvious discrete collection. 2. There is a large left paramedian ventral hernia, incompletely imaged.
--- NOTE | 2025-07-01 10:03 | XR_ITS ---
PROCEDURE INFORMATION: Exam: XR Chest Exam date and time: 07/01/2025 10:23 AM Age: 55 years old Clinical indication: Shortness of breath; Additional info: SOA TECHNIQUE: Imaging protocol: Radiologic exam of the chest. Views: 1 view. COMPARISON: CR XR CHEST PORTABLE 05/02/2025 12:20 AM FINDINGS: Tubes, catheters and devices: A pulse generator device is present with leads in appropriate position. Lungs: There is poor ventilation of the lungs, with perihilar vascular crowding and a diffuse increase in pulmonary parenchymal density. Streaky airspace opacities in lower lobes could be attributed to atelectasis versus developing pneumonia/aspiration in the appropriate clinical context. Pleural spaces: Unremarkable. No pleural effusion. No pneumothorax. Heart/Mediastinum: Unremarkable. No cardiomegaly. Bones/joints: Unremarkable. IMPRESSION: Streaky airspace opacities in lower lobes could be attributed to atelectasis versus developing pneumonia/aspiration in the appropriate clinical context.
--- NOTE | 2025-07-01 10:03 | ECG_ITS ---
APPROVED REPORT Exam: Resting ECG HR:80 bpm ECG Measurements Heart Rate 80 AXES NE 216 P 65 QRSd 114 QRS 91 QT 372 T 27 QTc 408 Conclusion SINUS RHYTHM WITH FIRST DEGREE AV BLOCK WITH OCCASIONAL SUPRAVENTRICULAR PREMATURE COMPLEXES BORDERLINE RIGHT AXIS DEVIATION [QRS AXIS > 90] LOW QRS VOLTAGE IN PRECORDIAL LEADS [QRS DEFLECTION < 1.0 mV IN CHEST LEADS] SEPTAL MYOCARDIAL INFARCTION , OF INDETERMINATE AGE [40+ ms Q WAVE IN V1/V2] ABNORMAL ECG UNCONFIRMED REPORT Electronically signed by : Hernan Martinez, 07/01/2025 15:55:37
[2025-07-01 10:22] LABS: Lactate Venous 1.6 mmol/L (0.4-2.0); VBG HCO3 39.8 mmol/L (23-30); VBG PH 7.40 mmol/L (7.31-7.41); VBG PO2 43.7 mmol/L (28-40)
[2025-07-01 10:24] LABS: VBG PCO2 65.2 mmol/L (35-51)
--- NOTE | 2025-07-01 10:24 | PC.NURSE ---
XR AT BEDSIDE
--- NOTE | 2025-07-01 10:30 | ED_ITS ---
<Statement entered by Cynthia Martinez MD - 07/07/25 07:29> I was consulted by the DYLON, and we discussed the complexity of the problems being addressed. I approved the treatment and management plan for this patient's care in the emergency department, thus performing a substantive portion of the medical decision making. Cynthia Martinez MD, CASSI, FACEP Discharge Plan Disposition Patient Disposition: Admitted Condition: Fair Discharge ED Provider: Cynthia Martinez HPI <El Peralta ([facility]), RESEARCH ANALYST - Last Filed: 07/01/25 13:45> General Chief Complaint: Weakness Stated Complaint: SOA Time Seen by Provider: 07/01/25 10:03 History of Present Illness HPI narrative: 55-year-old female presents for what she thinks is an infection under her hernia. Patient was brought in by EMS when ask states she does not know what is wrong with other but thinks she is dying. Patient reports left pain in her chest and shortness of breath. Related Data Home Medications ?Medication ?Instructions ?Recorded ?Confirmed calcium carbonate (Calcium 600) 600 mg PO DAILY 07/02/25 fluticasone fur. 100 mcg-umeclid 1 inh inhalation LEONARDO Y 09/24/24 07/02/25 62.5 mcg-vilant 25 mcg inhalat.powder (Trelegy Ellipta) aspirin 81 mg tablet,delayed 81 mg PO DAILY 03/10/25 1 09/01/24 release atorvastatin 40 mg tablet 40 mg PO HS 03/10/25 5 cyanocobalamin (vitamin B-12) 1,000 mcg PO DAILY 03/1007/01/25 1,000 mcg tablet ipratropium 0.5 mg-albuterol 3 mg 3 ml inhalation QIDP PRN Shortness 03/10/25 07/01/25 (2.5 mg base)/3 mL nebulization Of Breath soln levothyroxine 150 mcg tablet 300 mcg PO DAILYDM 07/01/25 trazodone 150 mg tablet 300 mg PO HS 03/10/25 metformin 500 mg tablet 500 mg PO BIDWMEAL 05/02/25 07/01/25 ropinirole 4 mg tablet 4 mg PO DAILY 05/02/2507/01 albuterol sulfate 90 mcg/actuation 2 puff PO Q4HP PRN Wheezing 07/01/25 07/01/25 aerosol inhaler ondansetron 4 mg disintegrating 4 mg PO Q8HP PRN Nause a And 07/01/25 07/01/25 tablet Vomiting semaglutide 1 mg/dose (4 mg/3 mL) 1 mg SQ WEEKLY 07/0107/01/25 subcutaneous pen injector (Ozempic) Previous Rx's ?Medication ?Instructions ?Recorded cholecalciferol (vitamin D3) 1,250 1,250 mcg PO WEEKLY #12 caps 05/26/24 mcg (50,000 unit) capsule evolocumab 140 mg/mL subcutaneous 140 mg SQ Q2W #2 mL 11/24/24 pen injector (Meli Dowling) spironolactone 100 mg tablet 100 mg PO DAILY #90 tabs 12/23/24 bupropion HCl 200 mg tablet,12 hr 200 mg PO BID #180 e a 05/01/25 sustained-release bumetanide 1 mg tablet 2 mg (2 x 1 mg) PO BIDL 30 d ays 05/06/25 #120 tabs metoprolol tartrate 25 mg tablet 25 mg PO BID 30 days #60 tabs 05/06/25 nystatin 100,000 unit/gram topical 1 unit topical BID 30 days #60 05/06/25 powder grams pregabalin 75 mg capsule 75 mg PO BID #60 caps levofloxacin 750 mg tablet 750 mg PO Q24H 5 days #5 ta bs 07/04/25 linezolid 600 mg tablet 600 mg PO BID 5 days #10 tab s 07/04/25 Allergies Allergy/AdvReac Type Severity Reaction Status Date / Time adhesive tape (ADHESIVE TAPE) Allergy Unknown Blister Verified 03/31/25 13:02 hydromorphone (From DILAUDID) Allergy Unknown Hypotension Verified 03/31/25 13:02 nickel (NICKEL) Allergy Unknown Blister Verified 03/31/25 13:02 PFSH <El Peralta ([facility]), RESEARCH ANALYST - Last Filed: 07/01/25 13:45> [facility] Disclaimer: The information contained in this section may have been updated after the patient was seen, as this information can be updated by other users. Medical History (Updated 07/02/25 @ 12:08 by Thad Cintron MD) Presence of cardiac pacemaker Acute on chronic heart failure with preserved ejection fraction (HFpEF) Pleural effusion Aphthous ulcer of mouth Slurred speech Transaminitis Elevated troponin Elevated liver enzymes GWEN (acute kidney injury) Bradycardia Morbid obesity with body mass index (BMI) greater than or equal to 70 in adult Postmenopausal bleeding HLD (hyperlipidemia) Obesity Abdominal pain UTI (urinary tract infection) Hospital discharge follow-up Establishing care with new doctor, encounter for Restless leg Glaucoma Arthritis of both knees Urinary incontinence Unspecified asthma, uncomplicated Tear of meniscus of knee Pre-diabetes Diastolic CHF, acute on chronic Pulmonary hypertension Elevated left ventricular end-diastolic pressure (LVEDP) Asthma exacerbation Sleep apnea History of COVID-19 COPD (chronic obstructive pulmonary disease) Asthma Abscess of groin, right Acute exacerbation of chronic obstructive airways disease Left against medical advice Dependent on wheelchair Assistance needed for continence Lower leg pain Knee pain Vaginal bleeding Perimenopausal Cellulitis Hypothyroidism Dizziness Chest pain Sinusitis Tobacco abuse counseling Tobacco abuse HONEY (obstructive sleep apnea) Ventral hernia Dyspnea Depression Pharyngitis due to Streptococcus species Epigastric pain Gastritis Strep throat HTN (hypertension) Hypothyroidism (acquired) TIA (transient ischemic attack) COPD exacerbation Paresthesias Shortness of breath Acute bronchitis Tobacco abuse COPD (chronic obstructive pulmonary disease) Infiltrate of lung present on chest x-ray Atelectasis of right lung Cough Upper respiratory infection Surgical History (Updated 07/02/25 @ 12:13 by Thad Cintron MD) Incisional hernia History of lateral meniscus repair of right knee H/O tubal ligation Hx of cholecystectomy H/O hernia repair History of colon resection Family History Mother Hypertension Diabetes Father Cancer Social History Smoking Status: Never smoker years smoked: 38 smoking status stop date: 3 months ago quit status: has quit before second hand exposure: Yes alcohol intake: never substance use type: denies use current occupational status: unemployed Travel in the last 8 weeks?: None household members: family and children housing: other lives independently: No marital status: legally number of children: 4 education level: other caffeine: Yes do you feel safe at home: Yes victim of physical abuse: No victim of emotional abuse: No victim of sexual abuse: No Other Medical History Have you received the Flu Vaccine for this season: No Have you received the Pneumonia Vaccine: No <Richardtaoeduarda Olsonerasmo ([facility]), RESEARCH ANALYST - Last Filed: 07/01/25 13:45> ROS Obtained: Yes Systems reviewed as appropriate & no additional complaints except as documented Cardiovascular Cardiovascular: Reports system reviewed and no additional complaints, except as documented, Reports as per HPI and Reports chest pain Respiratory Respiratory: Reports system reviewed and no additional complaints, except as documented, Reports as per HPI and Reports shortness of breath Physical Exam <Richardemily erasmo ([facility]), RESEARCH ANALYST - Last Filed: 07/01/25 13:45> General General appearance: alert and in no apparent distress ENT ENT exam: Present normal exam Chest Chest inspection: Present normal inspection Respiratory Respiratory exam: Present normal lung sounds bilaterally Cardiovascular Cardiovascular exam: Present regular rate and normal rhythm Abdominal Exam Abdominal exam: Present soft and normal bowel sounds Neurological Exam Neurological exam: Present alert Skin Skin exam: Present warm Expanded Skin Exam Body image: 2 1. Redness, edema, swelling and warmth, scabbed open areas under very large hernia HEART Score <Richardemily erasmo ([facility]), RESEARCH ANALYST - Last Filed: 07/01/25 13:45> HEART Score HEART Score assessment performed?: Yes History (anamnesis): Slightly suspicious ECG: Normal Age: 45-65 years Risk factors: 1-2 risk factors Troponin: </= normal limit HEART Score: 2 <Cynthia Martinez MD - Last Filed: 07/07/25 07:30> HEART Score HEART Score: 2 Critical Care <El Peralta ([facility]), RESEARCH ANALYST - Last Filed: 07/01/25 13:45> Critical Care Time Critical Care Time: No <Cynthia Martinez MD - Last Filed: 07/07/25 07:30> Critical Care Time Critical Care Time: Yes Attestation: On 07/01/25, the high probability of a clinically significant, sudden or life threatening deterioration of the following system(s) required my full and direct attention, intervention and personal management. The time I documented below is in addition to time spent performing reported procedures but includes the following listed in this critical care notation. Total Time Total Critical Care Time: 35 Medical Decision Making <El Peralta ([facility]), RESEARCH ANALYST - Last Filed: 07/01/25 13:45> Medical Records Medical records reviewed: Yes I reviewed the patient's medical records. Woodrow Inquiry Pt receiving controlled substance: No Woodrow was queried for this patient: No Vital Signs Vital Signs: 07/01/25 09:57 07/01/25 10:00 07/01/25 10:50 Temperature 98.3 F Temperature Source Oral Pulse Rate 78 Pulse Rate [Radial] 82 Respiratory Rate 20 Blood Pressure 124/58 L 109/49 L Blood Pressure [Left Arm] 140/53 L Blood Pressure Mean 80 Blood Pressure Mean [Left Arm] 82 Blood Pressure Source Blood Pressure Source [Left Arm] Automatic Cuff Blood Pressure Position Blood Pressure Position [Left Arm] Sitting 02 Sat by Pulse Oximetry 97 Oxygen Delivery Method Nasal Cannula Oxygen Flow Rate (LPM) 4 07/01/25 11:27 07/01/25 12:02 07/01/25 12:31 Temperature Temperature Source Pulse Rate 75 83 78 Pulse Rate [Radial] Respiratory Rate Blood Pressure 95/63 L 90/40 L 123/43 L Blood Pressure [Left Arm] Blood Pressure Mean Blood Pressure Mean [Left Arm] Blood Pressure Source Blood Pressure Source [Left Arm] Blood Pressure Position Blood Pressure Position [Left Arm] 02 Sat by Pulse Oximetry 97 94 L 96 Oxygen Delivery Method Nasal Cannula Nasal Cannula Nasal Cannula Oxygen Flow Rate (LPM) 3 3 3 07/01/25 13:00 07/01/25 13:32 07/01/25 14:05 Temperature 98.3 F Temperature Source Oral Pulse Rate 80 82 78 Pulse Rate [Radial] Respiratory Rate 18 Blood Pressure 105/88 L 108/54 L 120/58 L Blood Pressure [Left Arm] Blood Pressure Mean Blood Pressure Mean [Left Arm] Blood Pressure Source Automatic Cuff Blood Pressure Source [Left Arm] Blood Pressure Position Sitting Blood Pressure Position [Left Arm] 02 Sat by Pulse Oximetry 98 97 Oxygen Delivery Method Nasal Cannula Nasal Cannula Nasal Cannula Oxygen Flow Rate (LPM) 3 3 3 Lab Data Lab results reviewed: Yes I reviewed the patient's lab results. Labs: Lab Results 07/01/25 10:04: VBG pH 7.40, VBG pCO2 65.2 H, VBG pO2 43.7 H, VBG HCO3 39.8 H, V BG Total CO2 41.8 H, VBG O2 Saturation 82.1 H, VBG Base Excess 15.0 H, VBG Lactic Acid 1.6 07/01/25 10:05: Sodium 136, Potassium 5.2 H, Chloride 88 L, Carbon Dioxide 39 H, Anion Gap 14.2, BUN 12, Creatinine 0.80, Estimated GFR 74, Est GFR ( Amer) 89, Glucose 121 H, Calcium 9.2, Total Bilirubin 0.7, AST 31, ALT 14, Alkaline Phosphatase 103, Troponin I < 0.01, Total Protein 6.9, Albumin 3.4 L, G lobulin 3.5 H, Albumin/Globulin Ratio 1.0 L 07/01/25 10:45: WBC 7.6, RBC 3.57 L, Hgb 8.6 L, Hct 31.2 L, MCV 87.4, MCH 24.1 L , MCHC 27.6 L, RDW 19.0 H, Plt Count 315, MPV 9.4, Neut % (Auto) 75.1, Lymph % (Auto) 16.9, [place] % (Auto) 5.6, Eos % (Auto) 1.6, Baso % (Auto) 0.4, Neut # (Auto) 5.7, Lymph # (Auto) 1.3, [place] # (Auto) 0.4, Eos # (Auto) 0.1, Baso # (Auto) 0.0, TSH 5.33 H 07/01/25 11:25: Urine Color Dark yellow, Urine Appearance Slightly cloudy, Urine pH 6.0, Ur Specific [place] 1.020, Urine Protein Trace, Urine Glucose (UA) Negative, Urine Ketones Negative, Urine Blood Trace-i, Urine Nitrate Negative, Urine Bilirubin Negative, Urine Urobilinogen 0.2, Ur Leukocyte Esterase Negative, Urine RBC None, Urine WBC Occasional, Ur Squamous Epith Cells Occasional, Urine Bacteria Trace 07/03/25 04:35 07/03/25 04:35 Response Orders (Tests/Meds): ED MEDICATIONS Discontinued Medications Generic Name Dose Route Start Last Admin Trade Name Freq PRN Reason Stop Dose Admin Acetaminophen 650 mg 07/01/25 13:39 07/03/25 20:48 Acetaminophen 325mg Tab PO 07/31/25 13:38 650 mg Q4HP PRN Administration Fever or Mild Pain (1-3) Hydrocodone Bitart/Acetaminophen 1 tab 07/01/25 17:36 07/04/25 04:00 Hydrocodone/Apap 5/325 Mg Tablet PO 07/31/25 17:35 1 tab Q6HP PRN Administration Mild to Moderate Pain (1-6) Hydrocodone Bitart/Acetaminophen 2 tab 07/01/25 17:36 Hydrocodone/Apap 5/325 Mg Tablet PO 07/31/25 17:35 Q6HP PRN Moderate to Severe Pain (4-10) Albuterol/Ipratropium 3 ml 07/01/25 15:44 Ipratropium/Albuterol 3 Ml Neb 07/31/25 15:43 Q6HP PRN Shortness Of Breath Aspirin 81 mg 07/02/25 09:00 07/04/25 08:18 Aspirin Ec 81mg Tablet PO 08/01/25 08:59 81 mg DAILY LINDSEY Administration Atorvastatin Calcium 40 mg 07/01/25 21:00 07/03/25 20:29 Atorvastatin 40mg Tablet PO 07/31/25 20:59 40 mg HS LINDSEY Administration Bumetanide 2 mg 07/02/25 09:00 Bumetanide 1 Mg Tablet PO 08/01/25 08:59 BIDL LINDSEY Bumetanide 2 mg 07/01/25 16:00 07/04/25 15:21 Bumetanide 1 Mg Tablet PO 07/31/25 15:59 Not Given BIDL LINDSEY Bupropion HCl 200 mg 07/01/25 21:00 07/04/25 08:17 Bupropion Hcl 100 Mg Tablet PO 07/31/25 20:59 200 mg BID LINDSEY Administration Enoxaparin Sodium 60 mg 07/01/25 21:00 07/04/25 08:18 Enoxaparin 60mg/0.6ml Syringe SUBCUT 07/31/25 20:59 60 mg BID LINDSEY Administration Fluticasone/Umeclidinium/Vilanterol 1 puff 07/02/25 09:00 07/04/25 06:29 Fluticasone/Umeclidin/Vilanter 100/62.5/25mcg Inhaler 08/01/25 08:59 1 puff DAILY LINDSEY Administration Vancomycin/PEG/NADA/Lysine/Water 1.75 gm in 350 mls @ 175 mls/hr 07/01/25 11:15 07/01/25 14:08 Vancomycin 1.75gm/350ml (Peg) Premix IV 07/01/25 13:14 Infused ONCE ONE Infusion Vancomycin HCl 2,250 mg/ 250 mls @ 125 mls/hr 07/01/25 22:00 07/02/25 12:29 Sodium Chloride IV 07/11/25 21:59 Not Given Q12H LINDSEY Cefepime HCl 2 gm/ Sodium 100 mls @ 200 mls/hr 07/01/25 16:00 07/02/25 17:45 Chloride IV 07/11/25 15:59 Not Given Q12H LINDSEY Vancomycin HCl 2,250 mg/ 250 mls @ 125 mls/hr 07/02/25 13:00 07/03/25 00:20 Sodium Chloride IV 07/12/25 12:59 Not Given Q12H LINDSEY Insulin Human Lispro 0 unit 07/01/25 16:30 07/04/25 15:35 Humalog 100 Units/Ml 10ml Vial (Ssi) SUBCUT 07/31/25 16:29 Not Given ACHS [facility] Protocol Iopamidol 90 ml 07/01/25 11:19 07/01/25 11:20 Iopamidol-370 (76%);100ml Bottle IV 07/01/25 11:20 90 ml ONCE ONE Administration Levofloxacin 750 mg 07/02/25 16:30 07/04/25 15:36 Levofloxacin 750 Mg Tablet PO 07/12/25 16:29 750 mg Q24H LINDSEY Administration Levothyroxine Sodium 300 mcg 07/02/25 07:00 07/04/25 06:03 Levothyroxine 150mcg (0.15mg)Tab PO 08/01/25 06:59 300 mcg DAILYDM LINDSEY Administration Linezolid 600 mg 07/03/25 09:00 07/04/25 08:18 Linezolid 600 Mg Tablet PO 07/13/25 08:59 600 mg BID LINDSEY Administration Magnesium Citrate 296 ml 07/03/25 19:38 07/03/25 20:29 Magnesium Citrate 296ml Bottle PO 07/03/25 19:39 296 ml ONCE ONE Administration Metoprolol Tartrate 25 mg 07/01/25 21:00 07/04/25 08:18 Metoprolol Tartrate 25mg Tablet PO 07/31/25 20:59 25 mg BID LINDSEY Administration Miscellaneous 1 each 07/01/25 11:00 07/01/25 12:45 Vancomycin Consult Request NOTAPPLIC 07/31/25 10:59 1 each CONSULT PHARMACY LINDSEY Administration Miscellaneous 1 each 07/01/25 13:45 07/01/25 20:50 Vancomycin Consult Request NOTAPPLIC 07/31/25 13:44 Not Given CONSULT PHARMACY LINDSEY Nicotine 21 mg 07/01/25 13:39 Nicotine 21mg/24hr Patch TD 07/31/25 13:38 DAILYP PRN Nicotine Cravings Nitroglycerin 0.4 mg 07/03/25 04:29 07/03/25 04:57 Nitroglycerin 0.4mg Sl Tablet SL 08/02/25 04:28 0.4 mg Q5MINP PRN Administration Chest Pain Non-Formulary Medication 200 mg 07/01/25 21:00 07/01/25 20:04 Bupropion Hcl PO 07/31/25 20:59 Not Given BID LINDSEY Non-Formulary Medication 600 mg 07/02/25 21:00 07/02/25 20:03 Zyvox PO 08/01/25 20:59 600 mg BID LINDSEY Administration Nystatin 0 gm 07/01/25 21:00 07/04/25 08:19 Nystatin Topical Powder 30gm TP 07/31/25 20:59 1 applic BID LINDSEY Administration Polyethylene Glycol 17 gm 07/02/25 16:00 07/04/25 08:19 Polyethylene Glycol 3350 17 Gm Packet PO 08/01/25 15:59 Not Given DAILY LINDSEY Pregabalin 75 mg 07/01/25 21:00 07/04/25 08:17 Pregabalin 25mg Capsule PO 07/31/25 20:59 75 mg BID LINDSEY Administration Ropinirole HCl 4 mg 07/02/25 09:00 07/02/25 09:29 Ropinirole 1mg Tablet PO 08/01/25 08:59 4 mg DAILY LINDSEY Administration Ropinirole HCl 1 mg 07/03/25 09:00 07/04/25 08:18 Ropinirole 1mg Tablet PO 08/02/25 08:59 1 mg DAILY LINDSEY Administration Senna/Docusate Sodium 1 tab 07/02/25 21:00 07/04/25 08:18 Sennosides 8.6mg/Docusate 50mg Tablet PO 08/01/25 20:59 1 tab BID LINDSEY Administration Sodium Chloride 10 ml 07/01/25 11:19 07/01/25 11:20 Sodium Chloride 0.9% 10ml Syr (Rad Only) IV 07/01/25 11:20 10 ml ONCE ONE Administration Spironolactone 100 mg 07/02/25 09:00 07/04/25 08:17 Spironolactone 25mg Tablet PO 08/01/25 08:59 100 mg DAILY LINDSEY Administration ORDERS Category Date Time Status CT abdomen pelvis w con Stat Cat Scan 07/01/25 10:03 Completed Chest XR -- portable [XR chest portable] Stat Exams 07/01/25 10:03 Completed CBC w/Auto Diff [Complete Blood Count Auto Diff] Stat Lab 07/01/25 10:45 Completed CMP [Comprehensive Metabolic Panel] Stat Lab 07/01/25 10:05 Completed Complete Blood Count Auto Diff AMLAB Lab 07/02/25 06:35 Completed Comprehensive Metabolic Panel AMLAB Lab 07/02/25 06:35 Completed Magnesium AMLAB Lab 07/02/25 06:35 Completed Trop I [Troponin I] Stat Lab 07/01/25 10:05 Completed Urinalysis and Microscopic Stat Lab 07/01/25 11:25 Completed Blood Culture Stat Micro 07/01/25 10:05 Completed Venous Blood Gas Stat RT 07/01/25 10:04 Completed Radiology Data #1: Image(s): Chest Image Reviewed: Yes I have reviewed radiologist's interpretation MDM Narrative Medical Decision Narrative: In summary patient is a 55-year-old morbidly obese female who presents to the emergency department per EMS for evaluation of weakness, infection to skin under hernia, just not feeling right. Patient is hemodynamically stable upon arrival, afebrile. On exam under extremely large hernia on the left abdomen redness. Differential diagnosis includes cellulitis, UTI, pneumonia. Initial workup will be conducted with labs, CT, urine. Initial inventions include IV vancomycin. Initial workup reviewed by me, 1000 cc out with Hernández catheter. Low H&H at patient's baseline, urine normal, CT of abdomen(hernia)-shows stranding in the lower abdomen without obvious collection, enlarged ventricle hernia. upon repeat evaluation with extensive cellulitis and inability to CT entire abdomen patient will need to be admitted for IV antibiotics. Given this spoke with hospitalist(Dr. Barros) excepted patient for admission for abdominal wall cellulitis. <Cynthia Martinez MD - Last Filed: 07/07/25 07:30> Vital Signs Vital Signs: 07/01/25 09:57 07/01/25 10:00 07/01/25 10:50 Temperature 98.3 F Temperature Source Oral Pulse Rate 78 Pulse Rate [Radial] 82 Respiratory Rate 20 Blood Pressure 124/58 L 109/49 L Blood Pressure [Left Arm] 140/53 L Blood Pressure Mean 80 Blood Pressure Mean [Left Arm] 82 Blood Pressure Source Blood Pressure Source [Left Arm] Automatic Cuff Blood Pressure Position Blood Pressure Position [Left Arm] Sitting 02 Sat by Pulse Oximetry 97 Oxygen Delivery Method Nasal Cannula Oxygen Flow Rate (LPM) 4 07/01/25 11:27 07/01/25 12:02 07/01/25 12:31 Temperature Temperature Source Pulse Rate 75 83 78 Pulse Rate [Radial] Respiratory Rate Blood Pressure 95/63 L 90/40 L 123/43 L Blood Pressure [Left Arm] Blood Pressure Mean Blood Pressure Mean [Left Arm] Blood Pressure Source Blood Pressure Source [Left Arm] Blood Pressure Position Blood Pressure Position [Left Arm] 02 Sat by Pulse Oximetry 97 94 L 96 Oxygen Delivery Method Nasal Cannula Nasal Cannula Nasal Cannula Oxygen Flow Rate (LPM) 3 3 3 07/01/25 13:00 07/01/25 13:32 07/01/25 14:05 Temperature 98.3 F Temperature Source Oral Pulse Rate 80 82 78 Pulse Rate [Radial] Respiratory Rate 18 Blood Pressure 105/88 L 108/54 L 120/58 L Blood Pressure [Left Arm] Blood Pressure Mean Blood Pressure Mean [Left Arm] Blood Pressure Source Automatic Cuff Blood Pressure Source [Left Arm] Blood Pressure Position Sitting Blood Pressure Position [Left Arm] 02 Sat by Pulse Oximetry 98 97 Oxygen Delivery Method Nasal Cannula Nasal Cannula Nasal Cannula Oxygen Flow Rate (LPM) 3 3 3 Lab Data Labs: Lab Results 07/01/25 10:04: VBG pH 7.40, VBG pCO2 65.2 H, VBG pO2 43.7 H, VBG HCO3 39.8 H, V BG Total CO2 41.8 H, VBG O2 Saturation 82.1 H, VBG Base Excess 15.0 H, VBG Lactic Acid 1.6 07/01/25 10:05: Sodium 136, Potassium 5.2 H, Chloride 88 L, Carbon Dioxide 39 H, Anion Gap 14.2, BUN 12, Creatinine 0.80, Estimated GFR 74, Est GFR ( Amer) 89, Glucose 121 H, Calcium 9.2, Total Bilirubin 0.7, AST 31, ALT 14, Alkaline Phosphatase 103, Troponin I < 0.01, Total Protein 6.9, Albumin 3.4 L, G lobulin 3.5 H, Albumin/Globulin Ratio 1.0 L 07/01/25 10:45: WBC 7.6, RBC 3.57 L, Hgb 8.6 L, Hct 31.2 L, MCV 87.4, MCH 24.1 L , MCHC 27.6 L, RDW 19.0 H, Plt Count 315, MPV 9.4, Neut % (Auto) 75.1, Lymph % (Auto) 16.9, [place] % (Auto) 5.6, Eos % (Auto) 1.6, Baso % (Auto) 0.4, Neut # (Auto) 5.7, Lymph # (Auto) 1.3, [place] # (Auto) 0.4, Eos # (Auto) 0.1, Baso # (Auto) 0.0, TSH 5.33 H 07/01/25 11:25: Urine Color Dark yellow, Urine Appearance Slightly cloudy, Urine pH 6.0, Ur Specific [place] 1.020, Urine Protein Trace, Urine Glucose (UA) Negative, Urine Ketones Negative, Urine Blood Trace-i, Urine Nitrate Negative, Urine Bilirubin Negative, Urine Urobilinogen 0.2, Ur Leukocyte Esterase Negative, Urine RBC None, Urine WBC Occasional, Ur Squamous Epith Cells Occasional, Urine Bacteria Trace Response Orders (Tests/Meds): ED MEDICATIONS Discontinued Medications Generic Name Dose Route Start Last Admin Trade Name Freq PRN Reason Stop Dose Admin Acetaminophen 650 mg 07/01/25 13:39 07/03/25 20:48 Acetaminophen 325mg Tab PO 07/31/25 13:38 650 mg Q4HP PRN Administration Fever or Mild Pain (1-3) Hydrocodone Bitart/Acetaminophen 1 tab 07/01/25 17:36 07/04/25 04:00 Hydrocodone/Apap 5/325 Mg Tablet PO 07/31/25 17:35 1 tab Q6HP PRN Administration Mild to Moderate Pain (1-6) Hydrocodone Bitart/Acetaminophen 2 tab 07/01/25 17:36 Hydrocodone/Apap 5/325 Mg Tablet PO 07/31/25 17:35 Q6HP PRN Moderate to Severe Pain (4-10) Albuterol/Ipratropium 3 ml 07/01/25 15:44 Ipratropium/Albuterol 3 Ml Neb 07/31/25 15:43 Q6HP PRN Shortness Of Breath Aspirin 81 mg 07/02/25 09:00 07/04/25 08:18 Aspirin Ec 81mg Tablet PO 08/01/25 08:59 81 mg DAILY LINDSEY Administration Atorvastatin Calcium 40 mg 07/01/25 21:00 07/03/25 20:29 Atorvastatin 40mg Tablet PO 07/31/25 20:59 40 mg HS LINDSEY Administration Bumetanide 2 mg 07/02/25 09:00 Bumetanide 1 Mg Tablet PO 08/01/25 08:59 BIDL LINDSEY Bumetanide 2 mg 07/01/25 16:00 07/04/25 15:21 Bumetanide 1 Mg Tablet PO 07/31/25 15:59 Not Given BIDL LINDSEY Bupropion HCl 200 mg 07/01/25 21:00 07/04/25 08:17 Bupropion Hcl 100 Mg Tablet PO 07/31/25 20:59 200 mg BID LINDSEY Administration Enoxaparin Sodium 60 mg 07/01/25 21:00 07/04/25 08:18 Enoxaparin 60mg/0.6ml Syringe SUBCUT 07/31/25 20:59 60 mg BID LINDSEY Administration Fluticasone/Umeclidinium/Vilanterol 1 puff 07/02/25 09:00 07/04/25 06:29 Fluticasone/Umeclidin/Vilanter 100/62.5/25mcg Inhaler 08/01/25 08:59 1 puff DAILY LINDSEY Administration Vancomycin/PEG/NADA/Lysine/Water 1.75 gm in 350 mls @ 175 mls/hr 07/01/25 11:15 07/01/25 14:08 Vancomycin 1.75gm/350ml (Peg) Premix IV 07/01/25 13:14 Infused ONCE ONE Infusion Vancomycin HCl 2,250 mg/ 250 mls @ 125 mls/hr 07/01/25 22:00 07/02/25 12:29 Sodium Chloride IV 07/11/25 21:59 Not Given Q12H LINDSEY Cefepime HCl 2 gm/ Sodium 100 mls @ 200 mls/hr 07/01/25 16:00 07/02/25 17:45 Chloride IV 07/11/25 15:59 Not Given Q12H LINDSEY Vancomycin HCl 2,250 mg/ 250 mls @ 125 mls/hr 07/02/25 13:00 07/03/25 00:20 Sodium Chloride IV 07/12/25 12:59 Not Given Q12H LINDSEY Insulin Human Lispro 0 unit 07/01/25 16:30 07/04/25 15:35 Humalog 100 Units/Ml 10ml Vial (Ssi) SUBCUT 07/31/25 16:29 Not Given ACHS [facility] Protocol Iopamidol 90 ml 07/01/25 11:19 07/01/25 11:20 Iopamidol-370 (76%);100ml Bottle IV 07/01/25 11:20 90 ml ONCE ONE Administration Levofloxacin 750 mg 07/02/25 16:30 07/04/25 15:36 Levofloxacin 750 Mg Tablet PO 07/12/25 16:29 750 mg Q24H LINDSEY Administration Levothyroxine Sodium 300 mcg 07/02/25 07:00 07/04/25 06:03 Levothyroxine 150mcg (0.15mg)Tab PO 08/01/25 06:59 300 mcg DAILYDM LINDSEY Administration Linezolid 600 mg 07/03/25 09:00 07/04/25 08:18 Linezolid 600 Mg Tablet PO 07/13/25 08:59 600 mg BID LINDSEY Administration Magnesium Citrate 296 ml 07/03/25 19:38 07/03/25 20:29 Magnesium Citrate 296ml Bottle PO 07/03/25 19:39 296 ml ONCE ONE Administration Metoprolol Tartrate 25 mg 07/01/25 21:00 07/04/25 08:18 Metoprolol Tartrate 25mg Tablet PO 07/31/25 20:59 25 mg BID LINDSEY Administration Miscellaneous 1 each 07/01/25 11:00 07/01/25 12:45 Vancomycin Consult Request NOTAPPLIC 07/31/25 10:59 1 each [facility] Administration Miscellaneous 1 each 07/01/25 13:45 07/01/25 20:50 Vancomycin Consult Request NOTAPPLIC 07/31/25 13:44 Not Given [facility] Nicotine 21 mg 07/01/25 13:39 Nicotine 21mg/24hr Patch TD 07/31/25 13:38 DAILYP PRN Nicotine Cravings Nitroglycerin 0.4 mg 07/03/25 04:29 07/03/25 04:57 Nitroglycerin 0.4mg Sl Tablet SL 08/02/25 04:28 0.4 mg Q5MINP PRN Administration Chest Pain Non-Formulary Medication 200 mg 07/01/25 21:00 07/01/25 20:04 Bupropion Hcl PO 07/31/25 20:59 Not Given BID LINDSEY Non-Formulary Medication 600 mg 07/02/25 21:00 07/02/25 20:03 Zyvox PO 08/01/25 20:59 600 mg BID LINDSEY Administration Nystatin 0 gm 07/01/25 21:00 07/04/25 08:19 Nystatin Topical Powder 30gm TP 07/31/25 20:59 1 applic BID LINDSEY Administration Polyethylene Glycol 17 gm 07/02/25 16:00 07/04/25 08:19 Polyethylene Glycol 3350 17 Gm Packet PO 08/01/25 15:59 Not Given DAILY LINDSEY Pregabalin 75 mg 07/01/25 21:00 07/04/25 08:17 Pregabalin 25mg Capsule PO 07/31/25 20:59 75 mg BID LINDSEY Administration Ropinirole HCl 4 mg 07/02/25 09:00 07/02/25 09:29 Ropinirole 1mg Tablet PO 08/01/25 08:59 4 mg DAILY LINDSEY Administration Ropinirole HCl 1 mg 07/03/25 09:00 07/04/25 08:18 Ropinirole 1mg Tablet PO 08/02/25 08:59 1 mg DAILY LINDSEY Administration Senna/Docusate Sodium 1 tab 07/02/25 21:00 07/04/25 08:18 Sennosides 8.6mg/Docusate 50mg Tablet PO 08/01/25 20:59 1 tab BID LINDSEY Administration Sodium Chloride 10 ml 07/01/25 11:19 07/01/25 11:20 Sodium Chloride 0.9% 10ml Syr (Rad Only) IV 07/01/25 11:20 10 ml ONCE ONE Administration Spironolactone 100 mg 07/02/25 09:00 07/04/25 08:17 Spironolactone 25mg Tablet PO 08/01/25 08:59 100 mg DAILY LINDSEY Administration ORDERS Category Date Time Status CT abdomen pelvis w con Stat Cat Scan 07/01/25 10:03 Completed Chest XR -- portable [XR chest portable] Stat Exams 07/01/25 10:03 Completed CBC w/Auto Diff [Complete Blood Count Auto Diff] Stat Lab 07/01/25 10:45 Completed CMP [Comprehensive Metabolic Panel] Stat Lab 07/01/25 10:05 Completed Complete Blood Count Auto Diff AMLAB Lab 07/02/25 06:35 Completed Comprehensive Metabolic Panel AMLAB Lab 07/02/25 06:35 Completed Magnesium AMLAB Lab 07/02/25 06:35 Completed Trop I [Troponin I] Stat Lab 07/01/25 10:05 Completed Urinalysis and Microscopic Stat Lab 07/01/25 11:25 Completed Blood Culture Stat Micro 07/01/25 10:05 Completed Venous Blood Gas Stat RT 07/01/25 10:04 Completed
[2025-07-01 10:52] LABS: Alanine Aminotransferase 14 U/L (12-78); Albumin Level 3.4 g/dl (3.5-5.0); Albumin/Globulin Ratio 1.0 (1.1-1.8); Alkaline Phosphatase 103 U/L (38-126); Aspartate Amino Transferase 31 U/L (14-36); Bilirubin,Total 0.7 mg/dl (0.2-1.3); Blood Urea Nitrogen 12 mg/dl (7-17); Calcium 9.2 mg/dl (8.4-10.2); Chloride 88 mmol/L (98-107); Creatinine,Serum 0.80 mg/dl (0.52-1.04); Estimated Glomerular Filt Rate 74 ml/min (>60); GFR (African American) 89 ML/MIN (>60); Globulin 3.5 g/dL (1.3-3.2); Glucose 121 mg/dl (74-100); Potassium 5.2 mmoL/L (3.5-5.1); Sodium 136 mmol/L (136-145); Total Protein,Serum 6.9 g/dl (6.3-8.2)
--- NOTE | 2025-07-01 11:00 | PC.NURSE ---
PT TO CT
[2025-07-01 11:02] LABS: Hematocrit 31.2 % (37.0-47.0); Hemoglobin 8.6 g/dL (12.2-16.2); Immature Granulocytes % 0.4 %; Mean Corpuscular HGB Conc 27.6 g/dL (31.8-35.4); Mean Corpuscular Hemoglobin 24.1 pg (27.0-31.2); Mean Corpuscular Volume 87.4 fl (81-99); Nucleated Red Blood Cells % 0 %; Platelet Count 315 K/mm3 (142-424); Red Blood Count 3.57 M/mm3 (4.20-5.40); Red Cell Distribution Width-SD 59.8 fL; White Blood Count 7.6 K/mm3 (4.8-10.8)
[2025-07-01 11:06] LABS: Troponin I < 0.01 ng/ml (0.00-0.034)
[2025-07-01] MEDS: IOPAMIDOL-370 (76%);100ML BOTTLE 90 ML IV (11:20)
[2025-07-01] MEDS: SODIUM CHLORIDE 0.9% 10ML SYR (RAD ONLY) 10 ML IV (11:20)
[2025-07-01 11:34] LABS: Microscopic, Urine URINE MICROSCOPIC (MICROSCOPIC)
[2025-07-01] MEDS: VANCOMYCIN/WATER FOR INJ (PEG) 1.75 GM/350 ML PIGGYBACK IV (11:36)
[2025-07-01 11:37] LABS: Glucose,Urine (UA) Negative (Negative); Ketones,Urine Negative (Negative); Leukocyte Esterase,Urine Negative (Negative); PH,Urine 6.0 (5.0-8.5); Protein,Urine TRACE (Negative); Specific Gravity, Urine 1.020 (1.005-1.030); Urobilinogen,Urine 0.2 EU/dl (0.2)
[2025-07-01 11:37] LABS: Anion Gap 14.2 mEq/L (5-15); Carbon Dioxide 39 mmol/L (22.0-30.0)
[2025-07-01 11:42] LABS: Bilirubin,Urine Negative (Negative)
[2025-07-01 11:43] LABS: Color,Urine Dark Yellow (Yellow)
[2025-07-01 11:45] LABS: Bacteria,Urine Trace /lpf; Squamous Epithelial Cell,Urine Occasional #/hpf (0-5); WBC,Urine Occasional #/hpf (0-3)
--- NOTE | 2025-07-01 12:15 | PC.NURSE ---
pt repositioned, updated on poc. call light within reach
[2025-07-01] MEDS: VANCOMYCIN CONSULT REQUEST 1 EACH NOTAPPLIC (12:45)
--- NOTE | 2025-07-01 13:38 | PC.NURSE ---
Pao TERESA APRN SPEAKING WITH DR ROSA FOR ADMISSION
--- NOTE | 2025-07-01 13:40 | PC.NURSE ---
INSPECTION AND TESTING SUPERVISOR NOTIFIED OF ADMISSION
--- NOTE | 2025-07-01 13:42 | EXP.HP ---
History of Present Illness *Admission Date: 07/01/25 *Reason for visit:: weakness *History of present illness: This is a 55-year-old female with a past medical history of HFpEF, morbid obesity, Mobitz type II with pacemaker in situ, T2DM, HONEY, hypothyroidism who presents emergency department today with complaints weakness. She states she think she might have a infection under her hernia. She was brought in by EMS. She has been more weak and fatigued over the past few days. Just does not feel well in general. Some chills when others have been comfortable. No colleen fever at home. Poor p.o. intake. Not wanting to eat. Denies nausea or vomiting. No colleen chest pain. Or shortness of breath beyond baseline. On workup in the ER, labs relatively unremarkable but found to have tender erythema of abdomen worse on left abdomen near her hernia and tracking from her umbilicus. CT of the abdomen does show streaking and edema of the abdominal wall concerning for cellulitis. Initiated on vancomycin and medicine consulted for admission and further management. [facility] Disclaimer: The information contained in this section may have been updated after the patient was seen, as this information can be updated by other users. Medical History Presence of cardiac pacemaker Acute on chronic heart failure with preserved ejection fraction (HFpEF) Pleural effusion Aphthous ulcer of mouth Slurred speech Transaminitis Elevated troponin Elevated liver enzymes GWEN (acute kidney injury) Bradycardia Morbid obesity with body mass index (BMI) greater than or equal to 70 in adult Postmenopausal bleeding HLD (hyperlipidemia) Obesity Abdominal pain UTI (urinary tract infection) Hospital discharge follow-up Establishing care with new doctor, encounter for Restless leg Glaucoma Arthritis of both knees Urinary incontinence Unspecified asthma, uncomplicated Tear of meniscus of knee Pre-diabetes Diastolic CHF, acute on chronic Pulmonary hypertension Elevated left ventricular end-diastolic pressure (LVEDP) Asthma exacerbation Sleep apnea History of COVID-19 COPD (chronic obstructive pulmonary disease) Asthma Abscess of groin, right Acute exacerbation of chronic obstructive airways disease Left against medical advice Dependent on wheelchair Assistance needed for continence Incisional hernia Lower leg pain Knee pain Vaginal bleeding Perimenopausal Cellulitis Hypothyroidism Dizziness Chest pain Sinusitis Tobacco abuse counseling Tobacco abuse HONEY (obstructive sleep apnea) Ventral hernia Dyspnea Depression Pharyngitis due to Streptococcus species Epigastric pain Gastritis Strep throat HTN (hypertension) Hypothyroidism (acquired) TIA (transient ischemic attack) COPD exacerbation Paresthesias Shortness of breath Acute bronchitis Tobacco abuse COPD (chronic obstructive pulmonary disease) Infiltrate of lung present on chest x-ray Atelectasis of right lung Cough Upper respiratory infection Surgical History History of lateral meniscus repair of right knee H/O tubal ligation Hx of cholecystectomy H/O hernia repair History of colon resection Family History Mother Hypertension Diabetes Father Cancer Social History Smoking Status: Never smoker years smoked: 38 smoking status stop date: 3 months ago quit status: has quit before second hand exposure: Yes alcohol intake: never substance use type: denies use current occupational status: unemployed Travel in the last 8 weeks?: None household members: family and children housing: other lives independently: No marital status: legally number of children: 4 education level: other caffeine: Yes do you feel safe at home: Yes victim of physical abuse: No victim of emotional abuse: No victim of sexual abuse: No Have you lived/traveled outside [place] in past 30 days?: No Contact w/someone who lives/traveled outside [place] past 30 days?: No Exposure to someone with infectious disease in past 14 days?: No Do you have a fever (greater than 100.4 F or 38 C)?: No Have you tested positive for COVID-19?: No Exposed to someone with COVID-19 in past 14 days?: No Do you have a sore throat?: No Do you have a cough?: No Do you have any weakness?: No Do you have any diarrhea?: No Are you experiencing any unusual bleeding?: No Do you have any muscle aches/pain?: No Do you have any abdominal pain?: No Are you experiencing loss of taste or smell?: No Other Medical History Have you received the Flu Vaccine for this season: No Have you received the Pneumonia Vaccine: No Review of Systems Review of Systems Review of systems (narrative): 14 point review of systems performed, pertinent positives and negatives as per HPI Meds Home Medications and Allergies Home Medications ?Medication ?Instructions ?Recorded ?Confirmed ?Type calcium carbonate (Calcium 600) 600 mg PO DAILY 10/03/23 07/01/25 History cholecalciferol (vitamin D3) 1,250 1,250 mcg PO WEEKLY #12 caps 05/26/24 07/01/25 Rx mcg (50,000 unit) capsule fluticasone fur. 100 mcg-umeclid 1 inh inhalation DAILY 09/24/24 07/01/25 History 62.5 mcg-vilant 25 mcg inhalat.powder (Trelegy Ellipta) evolocumab 140 mg/mL subcutaneous 140 mg SQ Q2W #2 mL 11/24/24 07/01/25 Rx pen injector (Meli Dowling) spironolactone 100 mg tablet 100 mg PO DAILY #90 tabs 12/23/24 07/01/25 Rx aspirin 81 mg tablet,delayed 81 mg PO DAILY 03/10/25 07/01/25 History release atorvastatin 40 mg tablet 40 mg PO HS 03/10/25 07/01/25 History cyanocobalamin (vitamin B-12) 1,000 mcg PO DAILY 03/10/25 07/01/25 History 1,000 mcg tablet ipratropium 0.5 mg-albuterol 3 mg 3 ml inhalation QIDP PRN Shortness 03/10/25 07/01/25 History (2.5 mg base)/3 mL nebulization Of Breath soln levothyroxine 150 mcg tablet 300 mcg PO DAILYDM 03/10/25 07/01/25 History trazodone 150 mg tablet 300 mg PO HS 03/10/25 07/01/25 History bupropion HCl 200 mg tablet,12 hr 200 mg PO BID #180 ea 05/01/25 07/01/25 Rx sustained-release metformin 500 mg tablet 500 mg PO BIDWMEAL 05/02/25 07/01/25 History ropinirole 4 mg tablet 4 mg PO DAILY 05/02/25 07/01/25 History bumetanide 1 mg tablet 2 mg (2 x 1 mg) PO BIDL 30 days 05/06/25 07/01/25 Rx #120 tabs metoprolol tartrate 25 mg tablet 25 mg PO BID 30 days #60 tabs 05/06/25 07/01/25 Rx nystatin 100,000 unit/gram topical 1 unit topical BID 30 days #60 05/06/25 07/01/25 Rx powder grams pregabalin 75 mg capsule 75 mg PO BID #60 caps 06/30/25 07/01/25 Rx albuterol sulfate 90 mcg/actuation 2 puff PO Q4HP PRN Wheezing 07/01/25 07/01/25 History aerosol inhaler ondansetron 4 mg disintegrating 4 mg PO Q8HP PRN Nausea And 07/01/25 07/01/25 History tablet Vomiting semaglutide 1 mg/dose (4 mg/3 mL) 1 mg SQ WEEKLY 07/01/25 07/01/25 History subcutaneous pen injector (Ozempic) New Prescriptions to Start Prescriptions: Allergies Allergy/AdvReac Type Severity Reaction Status Date / Time adhesive tape (ADHESIVE TAPE) Allergy Unknown Blister Verified 03/31/25 13:02 hydromorphone (From DILAUDID) Allergy Unknown Hypotension Verified 03/31/25 13:02 nickel (NICKEL) Allergy Unknown Blister Verified 03/31/25 13:02 Exam Data for Last 24 hours Vital signs and Labs for Last 24 Hours: Temp Pulse Resp BP Pulse Ox O2 Del Method O2 Flow Rate 98.3 F 82 20 140/53 L 97 Nasal Cannula 4 07/01/25 09:57 07/01/25 09:57 07/01/25 09:57 07/01/25 09:57 07/01/25 09:57 07/01/25 09:57 07/01/25 09:57 Laboratory Results - last 24 hr 07/01/25 10:04: VBG pH 7.40, VBG pCO2 65.2 H, VBG pO2 43.7 H, VBG HCO3 39.8 H, VBG Total CO2 41.8 H, VBG O2 Saturation 82.1 H, VBG Base Excess 15.0 H, VBG Lactic Acid 1.6 07/01/25 10:05: Sodium 136, Potassium 5.2 H, Chloride 88 L, Carbon Dioxide 39 H, Anion Gap 14.2, BUN 12, Creatinine 0.80, Estimated GFR 74, Est GFR ( Amer) 89, Glucose 121 H, Calcium 9.2, Total Bilirubin 0.7, AST 31, ALT 14, Alkaline Phosphatase 103, Troponin I < 0.01, Total Protein 6.9, Albumin 3.4 L, Globulin 3.5 H, Albumin/Globulin Ratio 1.0 L 07/01/25 10:45: WBC 7.6, RBC 3.57 L, Hgb 8.6 L, Hct 31.2 L, MCV 87.4, MCH 24.1 L, MCHC 27.6 L, RDW 19.0 H, Plt Count 315, MPV 9.4, Neut % (Auto) 75.1, Lymph % (Auto) 16.9, Garza % (Auto) 5.6, Eos % (Auto) 1.6, Baso % (Auto) 0.4, Neut # (Auto) 5.7, Lymph # (Auto) 1.3, Garza # (Auto) 0.4, Eos # (Auto) 0.1, Baso # (Auto) 0.0 07/01/25 11:25: Urine Color Dark yellow, Urine Appearance Slightly cloudy, Urine pH 6.0, Ur Specific [place] 1.020, Urine Protein Trace, Urine Glucose (UA) Negative, Urine Ketones Negative, Urine Blood Trace-i, Urine Nitrate Negative, Urine Bilirubin Negative, Urine Urobilinogen 0.2, Ur Leukocyte Esterase Negative, Urine RBC None, Urine WBC Occasional, Ur Squamous Epith Cells Occasional, Urine Bacteria Trace I & O for Last 24 hours: Intake & Output 06/28/25 06/29/25 06/30/25 07/01/25 23:59 23:59 23:59 23:59 Weight 201.849 kg Constitutional Constitutional: mild distress, morbidly obese, chronically ill appearing and cooperative *Routine HEENT Exam Head: Present normocephalic and cushingoid faces Eye: Present EOMI and PERRL ENT: Present mucous membranes moist *Routine Neck Exam Neck: Present supple; Absent lymphadenopathy *Routine Respiratory Exam Respiratory: Present prolonged expiratory phase and distant breath sounds; Absent respiratory distress, stridor, wheezes or crackles *Routine Cardiovascular Exam Cardiovascular: Present RRR *Routine Abdominal Exam Abdominal: Present soft, normoactive bowel sounds, tenderness, distended and obese Comments: Large ventral hernia left lower abdomen with peau d'orange edema overlying. Has redness/erythema tracking from umbilicus. Significant intertrigo under pannus *Routine Rectal Exam Rectal:: deferred Comments:: Has skin blister/wound on top of left posterior thigh near buttocks, present on admission *Routine Genitalia Exam Genitalia:: deferred *Routine Extremities Exam Extremities: Present edema (1+ to knees); Absent cyanosis or clubbing *Routine Skin Exam Skin: Present warm; Absent rash Comments: Lesion on bottom, see nurse note with pictures. Erythema on abdomen, see abdominal exam above *Routine Neurological Exam Neurological: Present alert, oriented X3 and moving all extremities; Absent altered mental status Assessment and Plan *Assessment and plan (1) Morbid obesity with body mass index (BMI) greater than or equal to 70 in adult: Status: Acute Category: Medical Code(s): E66.01 - Morbid (severe) obesity due to excess calories; Z68.45 - Body mass index [BMI] 70 or greater, adult (2) Volume overload: Status: Acute Category: Medical Code(s): E87.70 - Fluid overload, unspecified (3) Morbid obesity: Status: Acute Category: Medical Code(s): E66.01 - Morbid (severe) obesity due to excess calories (4) Hypothyroidism: Status: Acute Qualifiers: Hypothyroidism type: unspecified Qualified Code(s): E03.9 - Hypothyroidism, unspecified Category: Medical Code(s): E03.9 - Hypothyroidism, unspecified (5) HONEY (obstructive sleep apnea): Status: Acute Category: Medical Code(s): G47.33 - Obstructive sleep apnea (adult) (pediatric) (6) Presence of cardiac pacemaker: Status: Acute Category: Medical Code(s): Z95.0 - Presence of cardiac pacemaker (7) Cellulitis of abdominal wall: Status: Acute Category: Medical Code(s): L03.311 - Cellulitis of abdominal wall (8) Chronic hypoxemic respiratory failure: Status: Chronic Category: Medical Code(s): J96.11 - Chronic respiratory failure with hypoxia (9) Obesity hypoventilation syndrome: Status: Acute Category: Medical Code(s): E66.2 - Morbid (severe) obesity with alveolar hypoventilation Plan Morbidly obese 55-year-old female with heart failure who presents with weakness. Found of cellulitis of her abdominal wall. Discussed case with ER provider, request admission for IV antibiotics and further management of her cellulitis along with urinary retention. I agreed to admit for further care. Problems addressed as follows: Abdominal wall cellulitis Ventral hernia, chronic, present on admission - Patient has large chronic ventral hernia that is nonoperable at this time due to her comorbidities and obesity. -Overlying skin has peau d'orange edema. Redness with demarcation tracking from her umbilicus concerning for cellulitis versus erysipelas. Initiated on vancomycin in the ER. Will continue vancomycin daily along with initiation of cefepime 2 g twice daily. Blood cultures pending. Initiate topical nystatin for yeast component - Moderate pain to palpation. Patient is afebrile at this time. White count normal at 7.6. Repeat CBC, CMP, magnesium ordered for the morning. - Further management pending culture results and clinical response to antibiotics. #chronic respiratory failure with hypoxia and hypercapnia COPD without exacerbation #Obesity hypoventilation syndrome - Baseline home O2 2 L, stable. Wean as tolerated for goal sats greater 90% - Supposed to wear BiPAP when she sleeps. Wearing BiPAP when she sleeps. Reports having completed a sleep study as an outpatient, awaiting home NIPPV device - Blood gas on admission with compensated chronic respiratory acidosis. pCO2 of 65 on VBG. Bicarb of 39 on CMP. Appears chronic in nature. pH 7.4. - DuoNebs every 6 hours as needed #chronic diastolic heart failure - Chest shows atelectasis versus pneumonia but no significant edema. -Reports taking her diuretics. Continue Bumex 2 mg p.o. twice daily, continue home spironolactone 100 mg daily -Hernández in place due to retention, monitor volume status and urine output. BUN 12, creatinine 0.8. Potassium 5.2. Repeat CBC, CMP, magnesium ordered for the morning - Consider Jardiance or Farxiga when patient euvolemic however strong concern the patient is at high risk for infection due to body habitus and incontinence issues. #Mobitz type II heart block #Pacemaker in situ - Troponin negative. EKG with no ischemic changes. Continue outpatient follow-up #Hypothyroidism: continue home levothyroxine 300mcg daily, TSH ordered and pending #Morbid obesity BMI 74. Complicates all aspects of care; holding home GLP-1 dosing #Anxiety and depression Continue Wellbutrin 200 mg daily holding trazodone 300 mg nightly due to weakness and fatigue, risk for over sedating Anemia, iron deficient: Hemoglobin low but stable at 8. Will consider IV iron during admission. Lovenox 60 mg twice daily (BMI greater than 50) Regular diet, calorie restricted to 1500 pool Full code
--- NOTE | 2025-07-01 13:57 | EXP.PHA.CONS ---
Pharmacy Consult Date: 07/01/25 Time: 13:58 Referring provider: DR ROSA Reason for Consult:: VANCOMYCIN DOSING CONSULT Allergies Allergy/AdvReac Type Severity Reaction Status Date / Time adhesive tape (ADHESIVE TAPE) Allergy Unknown Blister Verified 03/31/25 13:02 hydromorphone (From DILAUDID) Allergy Unknown Hypotension Verified 03/31/25 13:02 nickel (NICKEL) Allergy Unknown Blister Verified 03/31/25 13:02 Home Medications ?Medication ?Instructions ?Recorded ?Confirmed ?Type calcium carbonate (Calcium 600) 600 mg PO DAILY 10/03/23 05/02/25 History cholecalciferol (vitamin D3) 1,250 1,250 mcg PO WEEKLY #12 caps 05/26/24 05/02/25 Rx mcg (50,000 unit) capsule fluticasone fur. 100 mcg-umeclid 1 inh inhalation DAILY 09/24/24 05/02/25 History 62.5 mcg-vilant 25 mcg inhalat.powder (Trelegy Ellipta) evolocumab 140 mg/mL subcutaneous 140 mg SQ Q2W #2 mL 11/24/24 05/02/25 Rx pen injector (Repatha SureClick) spironolactone 100 mg tablet 100 mg PO DAILY #90 tabs 12/23/24 05/02/25 Rx aspirin 81 mg tablet,delayed 81 mg PO DAILY 03/10/25 05/02/25 History release atorvastatin 40 mg tablet 40 mg PO HS 03/10/25 05/02/25 History cyanocobalamin (vitamin B-12) 1,000 mcg PO DAILY 03/10/25 05/02/25 History 1,000 mcg tablet ipratropium 0.5 mg-albuterol 3 mg 3 ml inhalation QIDP PRN Shortness 03/10/25 05/02/25 History (2.5 mg base)/3 mL nebulization Of Breath soln levothyroxine 150 mcg tablet 300 mcg PO DAILY 03/10/25 05/02/25 History trazodone 150 mg tablet 300 mg PO HS 03/10/25 05/02/25 History chlorhexidine gluconate 0.12 % See Rx Instructions .Route .COMPLEX 03/21/25 05/02/25 History mouthwash lancets (Accu-Chek Softclix #200 ea 04/24/25 05/02/25 Rx Lancets) bupropion HCl 200 mg tablet,12 hr 200 mg PO BID #180 ea 05/01/25 05/02/25 Rx sustained-release metformin 500 mg tablet 500 mg PO BID 05/02/25 05/02/25 History ropinirole 4 mg tablet 4 mg PO DAILY 05/02/25 05/02/25 History bumetanide 1 mg tablet 2 mg (2 x 1 mg) PO BIDL 30 days 05/06/25 Rx #120 tabs metolazone 5 mg tablet 5 mg PO BIDL 30 days #0 tabs 05/06/25 05/02/25 Rx metoprolol tartrate 25 mg tablet 25 mg PO BID 30 days #60 tabs 05/06/25 Rx nystatin 100,000 unit/gram topical 1 unit topical BID 30 days #60 05/06/25 Rx powder grams ondansetron 4 mg disintegrating See Rx Instructions .Route 05/18/25 Rx tablet .COMPLEX #30 ea semaglutide 1 mg/dose (4 mg/3 mL) See Rx Instructions .Route 05/18/25 Rx subcutaneous pen injector (Ozempic) .COMPLEX #3 mL blood sugar diagnostic (Accu-Chek #50 strips 05/29/25 Rx Guide test strips) albuterol sulfate 90 mcg/actuation 2 puff PO Q4H PRN for wheezing 06/06/25 Rx aerosol inhaler #8.5 grams pregabalin 75 mg capsule 75 mg PO BID #60 caps 06/30/25 Rx New Prescriptions to Start Prescriptions: Height: 1.6 m Weight: 201.849 kg Laboratory Results:: Laboratory Results - last 24 hr 07/01/25 10:04: VBG pH 7.40, VBG pCO2 65.2 H, VBG pO2 43.7 H, VBG HCO3 39.8 H, VBG Total CO2 41.8 H, VBG O2 Saturation 82.1 H, VBG Base Excess 15.0 H, VBG Lactic Acid 1.6 07/01/25 10:05: Sodium 136, Potassium 5.2 H, Chloride 88 L, Carbon Dioxide 39 H, Anion Gap 14.2, BUN 12, Creatinine 0.80, Estimated GFR 74, Est GFR ( Amer) 89, Glucose 121 H, Calcium 9.2, Total Bilirubin 0.7, AST 31, ALT 14, Alkaline Phosphatase 103, Troponin I < 0.01, Total Protein 6.9, Albumin 3.4 L, Globulin 3.5 H, Albumin/Globulin Ratio 1.0 L 07/01/25 10:45: WBC 7.6, RBC 3.57 L, Hgb 8.6 L, Hct 31.2 L, MCV 87.4, MCH 24.1 L, MCHC 27.6 L, RDW 19.0 H, Plt Count 315, MPV 9.4, Neut % (Auto) 75.1, Lymph % (Auto) 16.9, [place] % (Auto) 5.6, Eos % (Auto) 1.6, Baso % (Auto) 0.4, Neut # (Auto) 5.7, Lymph # (Auto) 1.3, [place] # (Auto) 0.4, Eos # (Auto) 0.1, Baso # (Auto) 0.0 07/01/25 11:25: Urine Color Dark yellow, Urine Appearance Slightly cloudy, Urine pH 6.0, Ur Specific [place] 1.020, Urine Protein Trace, Urine Glucose (UA) Negative, Urine Ketones Negative, Urine Blood Trace-i, Urine Nitrate Negative, Urine Bilirubin Negative, Urine Urobilinogen 0.2, Ur Leukocyte Esterase Negative, Urine RBC None, Urine WBC Occasional, Ur Squamous Epith Cells Occasional, Urine Bacteria Trace Medical History: Medical History (Updated 05/10/25 @ 00:00 by Background Daemon) Presence of cardiac pacemaker Acute on chronic heart failure with preserved ejection fraction (HFpEF) Pleural effusion Aphthous ulcer of mouth Slurred speech Transaminitis Elevated troponin Elevated liver enzymes GWEN (acute kidney injury) Bradycardia Morbid obesity with body mass index (BMI) greater than or equal to 70 in adult Postmenopausal bleeding HLD (hyperlipidemia) Obesity Abdominal pain UTI (urinary tract infection) Hospital discharge follow-up Establishing care with new doctor, encounter for Restless leg Glaucoma Arthritis of both knees Urinary incontinence Unspecified asthma, uncomplicated Tear of meniscus of knee Pre-diabetes Diastolic CHF, acute on chronic Pulmonary hypertension Elevated left ventricular end-diastolic pressure (LVEDP) Asthma exacerbation Sleep apnea History of COVID-19 COPD (chronic obstructive pulmonary disease) Asthma Abscess of groin, right Acute exacerbation of chronic obstructive airways disease Left against medical advice Dependent on wheelchair Assistance needed for continence Incisional hernia Lower leg pain Knee pain Vaginal bleeding Perimenopausal Cellulitis Hypothyroidism Dizziness Chest pain Sinusitis Tobacco abuse counseling Tobacco abuse HONEY (obstructive sleep apnea) Ventral hernia Dyspnea Depression Pharyngitis due to Streptococcus species Epigastric pain Gastritis Strep throat HTN (hypertension) Hypothyroidism (acquired) TIA (transient ischemic attack) COPD exacerbation Paresthesias Shortness of breath Acute bronchitis Tobacco abuse COPD (chronic obstructive pulmonary disease) Infiltrate of lung present on chest x-ray Atelectasis of right lung Cough Upper respiratory infection Assessment and Plan Assessment and plan all Dx Assessment and Plan for all problems:: Pharmacokinetic dosing service Objective: Age: 55 yo Serum creatinine: 0.8 mg/dL Height: 63.0 Inches Weight (kg): 201.849 Diagnosis: CELLULITIS Assessment: IBW (kg): 52.40 Dosing wt(kg): 112.2 Estimated Creatinine clearance (ml/min): 130 Clearance limited to 130 ml/min to reduce risk of overdosing. CRCL method: Cockcroft and Gault using adjusted body weight Drug selected: Vancomycin Vd (liters): 78.5 (factor used: 0.7 L/kg) Perfecto (hr-1): 0.112 Half life (hrs): 6.19 CLvanco=?? 8.792 L/hr Recommended dose: 2250 mg Interval: 12 hrs Infusion time (hrs): 2.0 Predicted peak (mcg/mL): 34.7 Predicted trough (mcg/mL): 11.32 Adjusted body weight was selected for vancomycin dosing. To switch back, select the total body weight option above. Recommendations: Give Vancomycin 2250 mg q 12 hrs with an expected Cpeak of 34.7 mcg/ml and an expected Ctrough of 11.32 mcg/ml AUC 0-24 /MARLIN Data: MARLIN 0.5 mcg/mL:?? AUC/MARLIN:? 1023.7 MARLIN 1.0 mcg/mL:?? AUC/MARLIN:? 511.8 --------- MARLIN 1.5 mcg/mL:?? AUC/MARLIN:? 341.2 MARLIN 2.0 mcg/mL:?? AUC/MARLIN:? 255.9 Thank you for the consult
--- NOTE | 2025-07-01 16:10 | PC.WOUNDNOTE ---
Front (L) side . Erythema and moist erythema to (L) upper thigh erythema to (R) side of linn area reddened area/Blister to (L) gluteal sulcus erythema to buttocks
[2025-07-01] MEDS: CEFEPIME HCL 2 GM in 0.9 % SODIUM CHLORIDE 100 ML IV (16:32)
[2025-07-01] MEDS: BUMETANIDE 1 MG TABLET 2 MG PO (16:32)
[2025-07-01 16:41] LABS: Thyroid Stimulating Hormone 5.33 uIU/mL (0.465-4.68)
[2025-07-01 16:43] LABS: POC Glucose,Bedside 131 gm/dL (70-110)
[2025-07-01] MEDS: HYDROCODONE/APAP 5/325 MG TABLET 1 TAB PO ×2 (17:48→20:11)
[2025-07-01] MEDS: PREGABALIN 25MG CAPSULE 75 MG PO (20:04)
[2025-07-01] MEDS: METOPROLOL TARTRATE 25MG TABLET 25 MG PO (20:04)
[2025-07-01] MEDS: ATORVASTATIN 40MG TABLET 40 MG PO (20:04)
[2025-07-01 20:18] LABS: POC Glucose,Bedside 138 gm/dL (70-110)
[2025-07-01] MEDS: VANCOMYCIN HCL 2,250 MG in 0.9 % SODIUM CHLORIDE 250 ML 125 MG IV (21:22)
[2025-07-01] MEDS: NYSTATIN TOPICAL POWDER 30GM TP (21:23)
[2025-07-02] VITALS: BP 119/50; PULSE 68; RESP 14; TEMP 36.6; O2SAT 93
--- NOTE | 2025-07-02 02:46 | PC.NURSE ---
Pt AOx4, pleasant. Received IVABx. Currently on 3L nasal cannula. Pt reported some pain earlier in the shift, which was treated per MAR. Pt reported relief after receiving pain medication. Abdomen red and warm to the touch. Currently resting in bed with eyes closed. Respirations even and unlabored. Bed is low, locked, and call light is in reach.
[2025-07-02 04:00] VITALS: BP 121/64; PULSE 81; RESP 16; TEMP 36.4; O2SAT 90; BMI 75.3
[2025-07-02] MEDS: CEFEPIME HCL 2 GM in 0.9 % SODIUM CHLORIDE 100 ML IV (05:39)
[2025-07-02 05:56] LABS: POC Glucose,Bedside 167 gm/dL (70-110)
[2025-07-02 07:27] LABS: Hematocrit 32.1 % (37.0-47.0); Hemoglobin 8.5 g/dL (12.2-16.2); Immature Granulocytes % 1.0 %; Mean Corpuscular HGB Conc 26.5 g/dL (31.8-35.4); Mean Corpuscular Hemoglobin 23.4 pg (27.0-31.2); Mean Corpuscular Volume 88.4 fl (81-99); Nucleated Red Blood Cells % 0 %; Platelet Count 320 K/mm3 (142-424); Red Blood Count 3.63 M/mm3 (4.20-5.40); Red Cell Distribution Width-SD 62.2 fL; White Blood Count 7.1 K/mm3 (4.8-10.8)
[2025-07-02 07:41] VITALS: BP 110/50; PULSE 80; RESP 16; TEMP 36.8; O2SAT 94
[2025-07-02 07:48] LABS: Albumin Level 3.4 g/dl (3.5-5.0); Chloride 91 mmol/L (98-107); Sodium 134 mmol/L (136-145)
[2025-07-02 07:49] LABS: Potassium 4.2 mmoL/L (3.5-5.1)
[2025-07-02 07:51] LABS: Alanine Aminotransferase 15 U/L (12-78); Albumin/Globulin Ratio 1.0 (1.1-1.8); Alkaline Phosphatase 98 U/L (38-126); Aspartate Amino Transferase 25 U/L (14-36); Bilirubin,Total 0.3 mg/dl (0.2-1.3); Blood Urea Nitrogen 13 mg/dl (7-17); Creatinine Clearance Estimated 45 mL/min (50-200); Creatinine,Serum 1.10 mg/dl (0.52-1.04); Estimated Glomerular Filt Rate 51 ml/min (>60); GFR (African American) 62 ML/MIN (>60); Globulin 3.5 g/dL (1.3-3.2); Total Protein,Serum 6.9 g/dl (6.3-8.2)
[2025-07-02 07:52] LABS: Calcium 8.6 mg/dl (8.4-10.2); Glucose 148 mg/dl (74-100); Magnesium 1.8 mg/dl (1.6-2.3)
[2025-07-02 08:03] LABS: Anion Gap 4.2 mEq/L (5-15); Carbon Dioxide 43 mmol/L (22.0-30.0)
[2025-07-02 08:40] LABS: C-Reactive Protein 71.3 mg/L (0-4)
--- NOTE | 2025-07-02 08:57 | HMH.PHAAMS2 ---
- Antimicrobial Stewardship Review culture & sensitivity review Stewardship interventions: culture & sensitivity review, reviewed - no change Comments: BLOOD CX PENDING,PATIENT ON CEFEPIME/VANCOMYCIN EMPIRICALLY FOR CELLULITIS. WBC WNL, AFEBRILE.
[2025-07-02] MEDS: ASPIRIN EC 81MG TABLET 81 MG PO (09:27)
[2025-07-02] MEDS: BUMETANIDE 1 MG TABLET 2 MG PO ×2 (09:28→17:42)
[2025-07-02] MEDS: NYSTATIN TOPICAL POWDER 30GM TP ×2 (09:28→20:02)
[2025-07-02] MEDS: METOPROLOL TARTRATE 25MG TABLET 25 MG PO ×2 (09:28→20:02)
[2025-07-02] MEDS: PREGABALIN 25MG CAPSULE 75 MG PO (09:29)
[2025-07-02] MEDS: ROPINIROLE 1MG TABLET 4 MG PO (09:29)
[2025-07-02] MEDS: SPIRONOLACTONE 25MG TABLET 100 MG PO (09:29)
[2025-07-02] MEDS: FLUTICASONE/UMECLIDIN/VILANTER 100/62.5/25MCG INHALER 1 PUFF IH (09:34)
--- NOTE | 2025-07-02 09:54 | HMH.PHAINT1 ---
Pharmacy Intervention Comments: MEDICATION RECONCILIATION COMPLETE USING EXTERNAL PHARMACY FILL HISTORY AND MOST RECENT HOSPITAL DISCHARGE NOTE (04/2025).
--- NOTE | 2025-07-02 10:50 | EXP.ACUTE.PN ---
Subjective *Date: 07/02/25 *Time: 15:40 Interval history: Complaining of pain with her belly. Denies nausea. Tolerating p.o. intake. No bowel movement since the . Stable on her baseline oxygen of 3 L. States she does not feel well. Medical Exam Vital signs and Labs for Last 24 Hours: Vital Signs Temp Pulse Pulse Resp BP BP Pulse Ox 07/02/25 09:00 07/02/25 07:41 98.3 F 80 16 110/50 L 94 L 07/02/25 06:39 07/02/25 05:00 07/02/25 04:00 97.6 F 81 16 121/64 90 L 07/02/25 03:00 07/02/25 01:00 07/02/25 00:00 97.9 F 68 14 119/50 L 93 L 07/01/25 23:00 07/01/25 21:00 07/01/25 20:00 98.4 F 87 18 127/77 93 L 07/01/25 20:00 07/01/25 18:21 07/01/25 17:00 07/01/25 16:00 98.5 F 84 16 111/55 L 94 L 07/01/25 15:14 07/01/25 15:00 07/01/25 14:51 98.3 F 83 16 135/64 96 07/01/25 14:05 98.3 F 78 18 120/58 L 07/01/25 13:32 82 108/54 L 97 07/01/25 13:00 80 105/88 L 98 07/01/25 12:31 78 123/43 L 96 07/01/25 12:02 83 90/40 L 94 L 07/01/25 11:27 75 95/63 L 97 O2 Del Method O2 Flow Rate 07/02/25 09:00 Nasal Cannula 3 07/02/25 07:41 Nasal Cannula 3 07/02/25 06:39 Room Air 07/02/25 05:00 Room Air 07/02/25 04:00 Nasal Cannula 3 07/02/25 03:00 Room Air 07/02/25 01:00 Room Air 07/02/25 00:00 Nasal Cannula 3 07/01/25 23:00 Nasal Cannula 3 07/01/25 21:00 Nasal Cannula 3 07/01/25 20:00 Nasal Cannula 3 07/01/25 20:00 Nasal Cannula 3 07/01/25 18:21 Nasal Cannula 3 07/01/25 17:00 Nasal Cannula 3 07/01/25 16:00 Nasal Cannula 3 07/01/25 15:14 Nasal Cannula 3 07/01/25 15:00 Nasal Cannula 3 07/01/25 14:51 Nasal Cannula 3 07/01/25 14:05 Nasal Cannula 3 07/01/25 13:32 Nasal Cannula 3 07/01/25 13:00 Nasal Cannula 3 07/01/25 12:31 Nasal Cannula 3 07/01/25 12:02 Nasal Cannula 3 07/01/25 11:27 Nasal Cannula 3 Intake and Output 07/01/25 07/02/25 07/02/25 23:59 07:59 15:59 Intake Total 620 / 1414 904 / 904 Output Total 1600 / 1600 500 / 900 400 / 900 Balance -980 / -186 404 / 4 -400 / 4 Intake: Intake, Oral Amount 270 / 714 804 / 804 Intake, Total IV Amount 350 / 700 100 / 100 Cefepime HCl 2 gm In 0.9 % 100 / 100 100 / 100 Sodium Chloride 100 ml @ 200 mls/hr IV Q12H LINDSEY Rx#:[id number] Vancomycin HCl 2,250 mg In 0.9 250 / 250 % Sodium Chloride 250 ml @ 125 mls/hr IV Q12H LINDSEY Rx#:[id number] Output: Output, Urine Amount 1600 / 1600 500 / 900 400 / 900 Other: Number of Unmeasured Voids 0 0 Weight 192.777 kg Patient Weight 07/02/25 23:59 Weight 192.777 kg Laboratory Results - last 24 hr 07/01/25 10:05: Sodium 136, Potassium 5.2 H, Chloride 88 L, Carbon Dioxide 39 H, Anion Gap 14.2, BUN 12, Creatinine 0.80, Estimated GFR 74, Est GFR ( Amer) 89, Glucose 121 H, Calcium 9.2, Total Bilirubin 0.7, AST 31, ALT 14, Alkaline Phosphatase 103, Troponin I < 0.01, Total Protein 6.9, Albumin 3.4 L, Globulin 3.5 H, Albumin/Globulin Ratio 1.0 L 07/01/25 10:45: WBC 7.6, RBC 3.57 L, Hgb 8.6 L, Hct 31.2 L, MCV 87.4, MCH 24.1 L, MCHC 27.6 L, RDW 19.0 H, Plt Count 315, MPV 9.4, Neut % (Auto) 75.1, Lymph % (Auto) 16.9, [place] % (Auto) 5.6, Eos % (Auto) 1.6, Baso % (Auto) 0.4, Neut # (Auto) 5.7, Lymph # (Auto) 1.3, [place] # (Auto) 0.4, Eos # (Auto) 0.1, Baso # (Auto) 0.0, TSH 5.33 H 07/01/25 11:25: Urine Color Dark yellow, Urine Appearance Slightly cloudy, Urine pH 6.0, Ur Specific [place] 1.020, Urine Protein Trace, Urine Glucose (UA) Negative, Urine Ketones Negative, Urine Blood Trace-i, Urine Nitrate Negative, Urine Bilirubin Negative, Urine Urobilinogen 0.2, Ur Leukocyte Esterase Negative, Urine RBC None, Urine WBC Occasional, Ur Squamous Epith Cells Occasional, Urine Bacteria Trace 07/01/25 16:35: POC Glucose 131 H 07/01/25 20:10: POC Glucose 138 H 07/02/25 05:34: POC Glucose 167 H 07/02/25 06:35: WBC 7.1, RBC 3.63 L, Hgb 8.5 L, Hct 32.1 L, MCV 88.4, MCH 23.4 L, MCHC 26.5 L, RDW 19.3 H, Plt Count 320, MPV 9.7, Neut % (Auto) 66.9, Lymph % (Auto) 21.9, [place] % (Auto) 7.2, Eos % (Auto) 2.4, Baso % (Auto) 0.6, Neut # (Auto) 4.7, Lymph # (Auto) 1.6, [place] # (Auto) 0.5, Eos # (Auto) 0.2, Baso # (Auto) 0.0, ESR 63 H, Sodium 134 L, Potassium 4.2, Chloride 91 L, Carbon Dioxide 43 H*, Anion Gap 4.2 L, BUN 13, Creatinine 1.10 H D, Estimated Creat Clear 45, Estimated GFR 51 L, Est GFR ( Amer) 62 D, Glucose 148 H D, Calcium 8.6, Magnesium 1.8, Total Bilirubin 0.3, AST 25, ALT 15, Alkaline Phosphatase 98, C-Reactive Protein 71.3 H, Total Protein 6.9, Albumin 3.4 L, Globulin 3.5 H, Albumin/Globulin Ratio 1.0 L I & O for Labs for Last 24 Hours: Intake & Output 06/29/25 06/30/25 07/01/25 07/02/25 23:59 23:59 23:59 23:59 Intake Total 970 / 1414 904 / 904 Output Total 1600 / 1600 900 / 900 Balance -630 / -186 Weight 189.857 kg 192.777 kg Microbiology Reports for the Last 24 Hours: Microbiology 07/01/25 10:05 Blood Blood Culture - Preliminary NO GROWTH AFTER 24 HOURS Constitutional: Present mild distress, morbidly obese, chronically ill appearing and cooperative Head: Present normocephalic Eyes: Absent eye pain or eye discharge ENT: Present normal exam Neck: Present normal inspection Respiratory: Present distant breath sounds and able to speak in complete sentences Cardiac: Present Reg Rate and Rhythm; Absent No Murmur GI: Present soft, tenderness (Overlying hernia. Palpable gas movement and hernia) and normal bowel sounds; Absent distention Rectal (female): Present deferred Comment:: Minimal bloody discharge/spotting Extremities: Present edema Comment:: None in legs but it is present in the left upper thigh on the pendent side and an abdominal wall where she lays to the left. Skin: Present erythema (Intertrigo. Under left breast, under pannus bilaterally, and folds of abdomen tracking from umbilicus) Neuro: Present Grossly Intact, alert, awake, oriented x 3 and moves all extremities Assessment and Plan *Assessment and plan (1) Morbid obesity with body mass index (BMI) greater than or equal to 70 in adult: Status: Acute Category: Medical Code(s): E66.01 - Morbid (severe) obesity due to excess calories; Z68.45 - Body mass index [BMI] 70 or greater, adult (2) Volume overload: Status: Acute Category: Medical Code(s): E87.70 - Fluid overload, unspecified (3) Morbid obesity: Status: Acute Category: Medical Code(s): E66.01 - Morbid (severe) obesity due to excess calories (4) Hypothyroidism: Status: Acute Qualifiers: Hypothyroidism type: unspecified Qualified Code(s): E03.9 - Hypothyroidism, unspecified Category: Medical Code(s): E03.9 - Hypothyroidism, unspecified (5) HONEY (obstructive sleep apnea): Status: Acute Category: Medical Code(s): G47.33 - Obstructive sleep apnea (adult) (pediatric) (6) Presence of cardiac pacemaker: Status: Acute Category: Medical Code(s): Z95.0 - Presence of cardiac pacemaker (7) Cellulitis of abdominal wall: Status: Acute Category: Medical Code(s): L03.311 - Cellulitis of abdominal wall (8) Chronic hypoxemic respiratory failure: Status: Chronic Category: Medical Code(s): J96.11 - Chronic respiratory failure with hypoxia (9) Obesity hypoventilation syndrome: Status: Acute Category: Medical Code(s): E66.2 - Morbid (severe) obesity with alveolar hypoventilation Plan Morbidly obese 55-year-old female with heart failure who presents with weakness. Found of cellulitis of her abdominal wall. Discussed case with ER provider, request admission for IV antibiotics and further management of her cellulitis along with urinary retention. I agreed to admit for further care. Problems addressed as follows: Abdominal wall cellulitis Ventral hernia, chronic, present on admission - Patient has large chronic ventral hernia that is nonoperable at this time due to her comorbidities and obesity. -Overlying skin has peau d'orange edema. Redness with demarcation tracking from her umbilicus concerning for cellulitis versus erysipelas. Will continue vancomycin daily along with initiation of cefepime 2 g twice daily. Blood cultures pending. Initiate topical nystatin for yeast component - Moderate pain to palpation. Patient is afebrile at this time. White count remains normal at 6. Repeat CBC, CMP, magnesium ordered for the morning. - Further management pending culture results and clinical response to antibiotics. - Consulted and discussed case at length with surgeon. Patient's large hernia is concerning for source of her pain and discomfort. She has dependent edema along abdominal wall where she lays to the left secondary to her large hernia. Does not appear to have strangulation. Is passing flatus and therefore less concern for volvulus or SBO. She is not a surgical candidate unless she had a life-threatening acute condition necessitating heroic measures due to hernia related complications. #chronic respiratory failure with hypoxia and hypercapnia COPD without exacerbation #Obesity hypoventilation syndrome - Baseline home O2 2 L, stable. Wean as tolerated for goal sats greater 90% - Supposed to wear BiPAP when she sleeps. Wearing BiPAP when she sleeps. Reports having completed a sleep study as an outpatient, awaiting home NIPPV device - Blood gas on admission with compensated chronic respiratory acidosis. pCO2 of 65 on VBG. Bicarb of 39 on CMP. Appears chronic in nature. pH 7.4. Repeat blood gas today due to concern for increased confusion - DuoNebs every 6 hours as needed #chronic diastolic heart failure - Chest shows atelectasis versus pneumonia but no significant edema. -Reports taking her diuretics. Continue Bumex 2 mg p.o. twice daily, continue home spironolactone 100 mg daily -Hernández in place due to retention, monitor volume status and urine output. BUN 13, creatinine 1.1 Potassium 4.2. Repeat CBC, CMP, magnesium ordered for the morning - Consider Jardiance or Farxiga when patient euvolemic however strong concern the patient is at high risk for infection due to body habitus and incontinence issues. #Mobitz type II heart block #Pacemaker in situ - Troponin negative. EKG with no ischemic changes. Continue outpatient follow-up #Hypothyroidism: continue home levothyroxine 300mcg daily, TSH 5.3 #Morbid obesity: BMI 74. Complicates all aspects of care; holding home GLP-1 dosing #Anxiety and depression # Neuropathy/restless leg -Received Lyrica this morning along with Requip. Has developed some worsening confusion. Will hold Lyrica for now, decrease dose of Requip for tomorrow morning to 1 mg. Will obtain VBG to evaluate for worsening confusion. - Continue Wellbutrin 200 mg daily - holding trazodone 300 mg nightly due to weakness and fatigue, risk for over sedating Anemia, iron deficient: Hemoglobin low but stable at 8.5. Will consider IV iron during admission. Lovenox 60 mg twice daily (BMI greater than 50) Regular diet, calorie restricted to 1500 pool Full code
--- NOTE | 2025-07-02 11:51 | EXP.SURG.CON ---
History of Present Illness *Admission Date: 07/01/25 *Reason for visit:: Feeling weak *History of present illness: 55yo female presented by EMS to [facility] ER 07/01/2025 with complaints of increased weakness and also some vague abdominal pain. ER workup raised suspicion of abdominal wall cellulitis and she was admitted to the hospitalist for management of this. Also in the workup, a large ventral, incisional hernia was noted and surgical consultation has been requested for input regarding this. The patient states her hernia problems began in 2013 when she had her 1st hernia operation which then led to multiple additional surgeries for what sounds like either infected mesh or intestinal complications or both. Her last abdominal operation was years prior, for attempted hernia repair which also failed. She has multiple medical comorbidities including HFpEF with not infrequent admissions for medical non-compliance with resultant decompensated CHF. [facility] Disclaimer: The information contained in this section may have been updated after the patient was seen, as this information can be updated by other users. Medical History Presence of cardiac pacemaker Acute on chronic heart failure with preserved ejection fraction (HFpEF) Pleural effusion Aphthous ulcer of mouth Slurred speech Transaminitis Elevated troponin Elevated liver enzymes GWEN (acute kidney injury) Bradycardia Morbid obesity with body mass index (BMI) greater than or equal to 70 in adult Postmenopausal bleeding HLD (hyperlipidemia) Obesity Abdominal pain UTI (urinary tract infection) Hospital discharge follow-up Establishing care with new doctor, encounter for Restless leg Glaucoma Arthritis of both knees Urinary incontinence Unspecified asthma, uncomplicated Tear of meniscus of knee Pre-diabetes Diastolic CHF, acute on chronic Pulmonary hypertension Elevated left ventricular end-diastolic pressure (LVEDP) Asthma exacerbation Sleep apnea History of COVID-19 COPD (chronic obstructive pulmonary disease) Asthma Abscess of groin, right Acute exacerbation of chronic obstructive airways disease Left against medical advice Dependent on wheelchair Assistance needed for continence Lower leg pain Knee pain Vaginal bleeding Perimenopausal Cellulitis Hypothyroidism Dizziness Chest pain Sinusitis Tobacco abuse counseling Tobacco abuse HONEY (obstructive sleep apnea) Ventral hernia Dyspnea Depression Pharyngitis due to Streptococcus species Epigastric pain Gastritis Strep throat HTN (hypertension) Hypothyroidism (acquired) TIA (transient ischemic attack) COPD exacerbation Paresthesias Shortness of breath Acute bronchitis Tobacco abuse COPD (chronic obstructive pulmonary disease) Infiltrate of lung present on chest x-ray Atelectasis of right lung Cough Upper respiratory infection Surgical History (Updated 07/02/25 @ 12:13 by Thad Cintron MD) Incisional hernia History of lateral meniscus repair of right knee H/O tubal ligation Hx of cholecystectomy H/O hernia repair History of colon resection Family History Mother Hypertension Diabetes Father Cancer Social History Smoking Status: Never smoker years smoked: 38 smoking status stop date: 3 months ago quit status: has quit before second hand exposure: Yes alcohol intake: never substance use type: denies use current occupational status: unemployed Travel in the last 8 weeks?: None household members: family and children housing: other lives independently: No marital status: legally number of children: 4 education level: other caffeine: Yes do you feel safe at home: Yes victim of physical abuse: No victim of emotional abuse: No victim of sexual abuse: No Have you lived/traveled outside [place] in past 30 days?: No Contact w/someone who lives/traveled outside US past 30 days?: No Exposure to someone with infectious disease in past 14 days?: No Do you have a fever (greater than 100.4 F or 38 C)?: No Have you tested positive for COVID-19?: No Exposed to someone with COVID-19 in past 14 days?: No Do you have a sore throat?: No Do you have a cough?: No Do you have any weakness?: No Do you have any diarrhea?: No Are you experiencing any unusual bleeding?: No Do you have any muscle aches/pain?: No Do you have any abdominal pain?: No Are you experiencing loss of taste or smell?: No Review of Systems Constitutional Constitutional: Reports lethargy, Reports weakness and Reports weight gain *Cardiovascular Cardiovascular: Reports dyspnea on exertion, Reports orthopnea and Reports pedal edema *Respiratory Respiratory: Reports dyspnea on exertion *Gastrointestinal Gastrointestinal: Reports abdominal pain and Reports constipation *Musculoskeletal Musculoskeletal: Reports muscle weakness *Neurologic Neurologic: Reports weakness Meds Home Medications and Allergies Home Medications ?Medication ?Instructions ?Recorded ?Confirmed ?Type calcium carbonate (Calcium 600) 600 mg PO DAILY 10/03/23 07/02/25 History cholecalciferol (vitamin D3) 1,250 1,250 mcg PO WEEKLY #12 caps 05/26/24 07/02/25 Rx mcg (50,000 unit) capsule fluticasone fur. 100 mcg-umeclid 1 inh inhalation DAILY 09/24/24 07/02/25 History 62.5 mcg-vilant 25 mcg inhalat.powder (Trelegy Ellipta) evolocumab 140 mg/mL subcutaneous 140 mg SQ Q2W #2 mL 11/24/24 07/01/25 Rx pen injector (Meli Dowling) spironolactone 100 mg tablet 100 mg PO DAILY #90 tabs 12/23/24 07/01/25 Rx aspirin 81 mg tablet,delayed 81 mg PO DAILY 03/10/25 07/01/25 History release atorvastatin 40 mg tablet 40 mg PO HS 03/10/25 07/02/25 History cyanocobalamin (vitamin B-12) 1,000 mcg PO DAILY 03/10/25 07/01/25 History 1,000 mcg tablet ipratropium 0.5 mg-albuterol 3 mg 3 ml inhalation QIDP PRN Shortness 03/10/25 07/01/25 History (2.5 mg base)/3 mL nebulization Of Breath soln levothyroxine 150 mcg tablet 300 mcg PO DAILYDM 03/10/25 07/01/25 History trazodone 150 mg tablet 300 mg PO HS 03/10/25 07/01/25 History bupropion HCl 200 mg tablet,12 hr 200 mg PO BID #180 ea 05/01/25 07/01/25 Rx sustained-release metformin 500 mg tablet 500 mg PO BIDWMEAL 05/02/25 07/01/25 History ropinirole 4 mg tablet 4 mg PO DAILY 05/02/25 07/01/25 History bumetanide 1 mg tablet 2 mg (2 x 1 mg) PO BIDL 30 days 05/06/25 07/02/25 Rx #120 tabs metoprolol tartrate 25 mg tablet 25 mg PO BID 30 days #60 tabs 05/06/25 07/02/25 Rx nystatin 100,000 unit/gram topical 1 unit topical BID 30 days #60 05/06/25 07/02/25 Rx powder grams pregabalin 75 mg capsule 75 mg PO BID #60 caps 06/30/25 07/01/25 Rx albuterol sulfate 90 mcg/actuation 2 puff PO Q4HP PRN Wheezing 07/01/25 07/01/25 History aerosol inhaler ondansetron 4 mg disintegrating 4 mg PO Q8HP PRN Nausea And 07/01/25 07/01/25 History tablet Vomiting semaglutide 1 mg/dose (4 mg/3 mL) 1 mg SQ WEEKLY 07/01/25 07/01/25 History subcutaneous pen injector (Ozempic) New Prescriptions to Start Prescriptions: Allergies Allergy/AdvReac Type Severity Reaction Status Date / Time adhesive tape (ADHESIVE TAPE) Allergy Unknown Blister Verified 03/31/25 13:02 hydromorphone (From DILAUDID) Allergy Unknown Hypotension Verified 03/31/25 13:02 nickel (NICKEL) Allergy Unknown Blister Verified 03/31/25 13:02 Exam (Inpt) Vital signs and Labs for Last 24 Hours: Temp Pulse Resp BP Pulse Ox O2 Del Method O2 Flow Rate 98.3 F 80 16 110/50 L 94 L Nasal Cannula 3 07/02/25 07:41 07/02/25 07:41 07/02/25 07:41 07/02/25 07:41 07/02/25 07:41 07/02/25 09:00 07/02/25 09:00 Laboratory Results - last 24 hr 07/01/25 10:45: TSH 5.33 H 07/01/25 16:35: POC Glucose 131 H 07/01/25 20:10: POC Glucose 138 H 07/02/25 05:34: POC Glucose 167 H 07/02/25 06:35: WBC 7.1, RBC 3.63 L, Hgb 8.5 L, Hct 32.1 L, MCV 88.4, MCH 23.4 L, MCHC 26.5 L, RDW 19.3 H, Plt Count 320, MPV 9.7, Neut % (Auto) 66.9, Lymph % (Auto) 21.9, [place] % (Auto) 7.2, Eos % (Auto) 2.4, Baso % (Auto) 0.6, Neut # (Auto) 4.7, Lymph # (Auto) 1.6, [place] # (Auto) 0.5, Eos # (Auto) 0.2, Baso # (Auto) 0.0, ESR 63 H, Sodium 134 L, Potassium 4.2, Chloride 91 L, Carbon Dioxide 43 H*, Anion Gap 4.2 L, BUN 13, Creatinine 1.10 H D, Estimated Creat Clear 45, Estimated GFR 51 L, Est GFR ( Amer) 62 D, Glucose 148 H D, Calcium 8.6, Magnesium 1.8, Total Bilirubin 0.3, AST 25, ALT 15, Alkaline Phosphatase 98, C-Reactive Protein 71.3 H, Total Protein 6.9, Albumin 3.4 L, Globulin 3.5 H, Albumin/Globulin Ratio 1.0 L I & O for Labs for Last 24 Hours: Intake & Output 06/29/25 06/30/25 07/01/25 07/02/25 23:59 23:59 23:59 23:59 Intake Total 970 / 1414 904 / 904 Output Total 1600 / 1600 900 / 900 Balance -630 / -186 Weight 189.857 kg 192.777 kg Microbiology Reports for the Last 24 Hours: Microbiology 07/01/25 10:45 Blood Blood Culture - Preliminary NO GROWTH AFTER 24 HOURS 07/01/25 10:05 Blood Blood Culture - Preliminary NO GROWTH AFTER 24 HOURS Constitutional: morbidly obese (BMI 75.3) and chronically ill appearing Comment:: Significant hirsute pattern. Respiratory: Present diminished air movement and able to speak in complete sentences Comments:: Expansive abdominal girth with large incisional hernia extending into pannus that preferences to the patient left. Intertrigenous erythema mostly about the umbilicus. No peritoneal signs. Hernia proper is mostly soft without overlying concerning erythema. Peau d'orange noted in dependent portions consistent with chronic panniculitis. Rectal (female): Present deferred Extremities: Present edema Comment:: Chronic panniculitis of abdominal apron Results Labs 07/02/25 06:35 07/02/25 06:35 Labs: Laboratory Results - last 24 hr 07/01/25 10:45: TSH 5.33 H 07/01/25 16:35: POC Glucose 131 H 07/01/25 20:10: POC Glucose 138 H 07/02/25 05:34: POC Glucose 167 H 07/02/25 06:35: WBC 7.1, RBC 3.63 L, Hgb 8.5 L, Hct 32.1 L, MCV 88.4, MCH 23.4 L, MCHC 26.5 L, RDW 19.3 H, Plt Count 320, MPV 9.7, Neut % (Auto) 66.9, Lymph % (Auto) 21.9, [place] % (Auto) 7.2, Eos % (Auto) 2.4, Baso % (Auto) 0.6, Neut # (Auto) 4.7, Lymph # (Auto) 1.6, [place] # (Auto) 0.5, Eos # (Auto) 0.2, Baso # (Auto) 0.0, ESR 63 H, Sodium 134 L, Potassium 4.2, Chloride 91 L, Carbon Dioxide 43 H*, Anion Gap 4.2 L, BUN 13, Creatinine 1.10 H D, Estimated Creat Clear 45, Estimated GFR 51 L, Est GFR ( Amer) 62 D, Glucose 148 H D, Calcium 8.6, Magnesium 1.8, Total Bilirubin 0.3, AST 25, ALT 15, Alkaline Phosphatase 98, C-Reactive Protein 71.3 H, Total Protein 6.9, Albumin 3.4 L, Globulin 3.5 H, Albumin/Globulin Ratio 1.[address] scan - abdomen: report reviewed and image reviewed (Incompletely imaged hernia/contents. It would appear the majority of her small bowel, and colon appear to be within the hernia space. No significant free fluid and no free air.) Assessment and Plan *Assessment and plan (1) Cellulitis of abdominal wall: Status: Acute Category: Medical Code(s): L03.311 - Cellulitis of abdominal wall Plan: Agree with abx coverage as well as topical skin treatments for fungal etiologies. (2) Incisional hernia: Status: Acute Qualifiers: Obstruction and gangrene presence: without obstruction or gangrene Qualified Code(s): K43.2 - Incisional hernia without obstruction or gangrene Category: Surgical Code(s): K43.2 - Incisional hernia without obstruction or gangrene Plan: Complex large recurrent abdominal wall hernia (essentially with loss of domain). Non-operative candidate for hernia repair due to loss of domain and other comorbid conditions. I do not think her abdominal wall cellulitis is related to the hernia. She is passing flatus and therefore I do not think she has SBO related to the hernia. Body habitus creates significant challenge in evaluation as well as management of same. I would reserve any consideration of operative intervention only as a heroic life-saving attempt for hernia-related complication such as uncontrollable E-C fistula or volvulus or perforation. She does not appear to have any of these at this time. (3) Morbid obesity with body mass index (BMI) greater than or equal to 70 in adult: Status: Acute Category: Medical Code(s): E66.01 - Morbid (severe) obesity due to excess calories; Z68.45 - Body mass index [BMI] 70 or greater, adult Plan Non-surgical condition. Agree with abx coverage. Difficult situation, at best.
[2025-07-02 12:00] VITALS: BP 105/63; PULSE 77; RESP 14; TEMP 37.1; O2SAT 92
[2025-07-02 12:02] LABS: POC Glucose,Bedside 139 gm/dL (70-110)
--- NOTE | 2025-07-02 12:14 | PC.NURSE ---
spoke with about pt not having IV access @ this time despite multiple attempts. he may change antibiotics to po
[2025-07-02] MEDS: VANCOMYCIN HCL 2,250 MG in 0.9 % SODIUM CHLORIDE 250 ML 125 MG IV (12:28)
--- NOTE | 2025-07-02 13:09 | PC.NURSE ---
pt is more fatigued and lethargic after morning meds and bath/bed change.
--- NOTE | 2025-07-02 15:44 | PC.NURSE ---
spoke with MD regarding pt increased confusion. She dislodged her new IV and has taken off her gown. new orders received
[2025-07-02 15:56] LABS: POC Glucose,Bedside 142 gm/dL (70-110)
[2025-07-02 16:00] VITALS: BP 114/61; PULSE 75; RESP 16; TEMP 36.7; O2SAT 94
[2025-07-02 16:07] LABS: Lactate Venous 1.4 mmol/L (0.4-2.0); VBG HCO3 41.4 mmol/L (23-30); VBG PH 7.40 mmol/L (7.31-7.41); VBG PO2 74.5 mmol/L (28-40)
[2025-07-02 16:09] LABS: VBG PCO2 68.0 mmol/L (35-51)
[2025-07-02 16:20] LABS: Ammonia 20 umol/L (9-30)
[2025-07-02] MEDS: POLYETHYLENE GLYCOL 3350 17 GM PACKET PO (17:42)
[2025-07-02 17:46] VITALS: BMI 75.3
[2025-07-02 18:57] LABS: Acinetobacter calcoaceticus-ba Not Detected; Bacteroides fragilis Not Detected; Candida auris Not Detected; Candida glabrata Not Detected; Enterobacterales Not Detected; Enterococcus faecalis Not Detected; Enterococcus faecium Not Detected; Klebsiella aerogenes Not Detected; Klebsiella pneumoniae grp Not Detected; Proteus spp. Not Detected; Salmonella spp. Not Detected; Serratia marcescens Not Detected; Staphylococcus epidermidis Not Detected; Staphylococcus lugdunensis Not Detected; Staphylococcus spp. Not Detected; Stenotrophomonas maltophilia Not Detected; Streptococcus agalactiae(GrpB) Not Detected; Streptococcus pyogenes Group A Not Detected; Streptococcus spp. Not Detected
[2025-07-02 19:54] LABS: POC Glucose,Bedside 135 gm/dL (70-110)
[2025-07-02] MEDS: SENNOSIDES 8.6MG/DOCUSATE 50MG TABLET 1 TAB PO (20:01)
[2025-07-02] MEDS: ATORVASTATIN 40MG TABLET 40 MG PO (20:01)
[2025-07-02 20:16] VITALS: BP 122/58; PULSE 77; RESP 16; TEMP 36.3; O2SAT 96
--- NOTE | 2025-07-03 02:13 | PC.NURSE ---
Pt AOx4 with intermittent confusion, especially upon waking. This occurred earlier in the shift, for which pt was reoriented. She received PO antibiotics. Provider aware of and okayed no IV placement. Pt is on 3L NC. Currently resting in bed with eyes closed. Respirations even and unlabored. Bed low, locked, and call light is in reach.
[2025-07-03 02:24] LABS: Vancomycin,Trough 13.5 ug/mL (5.0-10.0)
[2025-07-03 04:00] VITALS: BMI 74.3
[2025-07-03] MEDS: NITROGLYCERIN 0.4MG SL TABLET 0.4 MG SL ×2 (04:34→04:57)
[2025-07-03 04:41] VITALS: BP 106/47; PULSE 73; RESP 18; TEMP 37; O2SAT 93
[2025-07-03 04:41] LABS: Hematocrit 30.8 % (37.0-47.0); Hemoglobin 8.4 g/dL (12.2-16.2); Immature Granulocytes % 0.4 %; Mean Corpuscular HGB Conc 27.3 g/dL (31.8-35.4); Mean Corpuscular Hemoglobin 23.8 pg (27.0-31.2); Mean Corpuscular Volume 87.3 fl (81-99); Nucleated Red Blood Cells % 0.3 %; Platelet Count 307 K/mm3 (142-424); Red Blood Count 3.53 M/mm3 (4.20-5.40); Red Cell Distribution Width-SD 60.8 fL; White Blood Count 6.8 K/mm3 (4.8-10.8)
[2025-07-03 05:28] LABS: Albumin Level 3.0 g/dl (3.5-5.0); Chloride 89 mmol/L (98-107); Potassium 4.7 mmoL/L (3.5-5.1); Sodium 135 mmol/L (136-145)
[2025-07-03 05:30] LABS: Blood Urea Nitrogen 14 mg/dl (7-17); Creatinine Clearance Estimated 55 mL/min (50-200); Creatinine,Serum 0.90 mg/dl (0.52-1.04); Estimated Glomerular Filt Rate 65 ml/min (>60); GFR (African American) 78 ML/MIN (>60)
[2025-07-03 05:31] LABS: Alanine Aminotransferase 13 U/L (12-78); Alkaline Phosphatase 91 U/L (38-126); Aspartate Amino Transferase 21 U/L (14-36); Bilirubin,Total 0.2 mg/dl (0.2-1.3); Calcium 8.7 mg/dl (8.4-10.2); Glucose 98 mg/dl (74-100); Magnesium 1.7 mg/dl (1.6-2.3); Total Protein,Serum 6.2 g/dl (6.3-8.2)
--- NOTE | 2025-07-03 05:45 | PC.NURSE ---
Pt began c/o chest pain and pressure. EKG obtained and reviewed with provider. Trops obtained. 2 doses of sublingual nitroglycerin administered. Pt reports decreased pain of 4 after first dose and no chest pain after second dose. BP maintaining at 112/54.
[2025-07-03 05:54] LABS: Albumin/Globulin Ratio 0.9 (1.1-1.8); Anion Gap 5.7 mEq/L (5-15); Carbon Dioxide 45 mmol/L (22.0-30.0); Globulin 3.2 g/dL (1.3-3.2)
[2025-07-03] MEDS: LEVOTHYROXINE 150MCG (0.15MG)TAB 300 MCG PO (06:05)
[2025-07-03] MEDS: FLUTICASONE/UMECLIDIN/VILANTER 100/62.5/25MCG INHALER 1 PUFF IH (06:19)
[2025-07-03 07:05] LABS: Troponin I < 0.01 ng/ml (0.00-0.034)
[2025-07-03 08:00] VITALS: BP 103/44; PULSE 68; RESP 16; TEMP 36.8; O2SAT 96
[2025-07-03 08:26] LABS: Troponin I < 0.01 ng/ml (0.00-0.034)
[2025-07-03 08:41] VITALS: PULSE 70
[2025-07-03] MEDS: BUMETANIDE 1 MG TABLET 2 MG PO ×2 (08:54→16:57)
[2025-07-03] MEDS: POLYETHYLENE GLYCOL 3350 17 GM PACKET PO (08:54)
[2025-07-03] MEDS: ASPIRIN EC 81MG TABLET 81 MG PO (08:55)
[2025-07-03] MEDS: ROPINIROLE 1MG TABLET 1 MG PO (08:55)
[2025-07-03] MEDS: SENNOSIDES 8.6MG/DOCUSATE 50MG TABLET 1 TAB PO ×2 (08:56→20:29)
[2025-07-03] MEDS: SPIRONOLACTONE 25MG TABLET 100 MG PO (08:56)
[2025-07-03] MEDS: LINEZOLID 600 MG TABLET PO ×2 (08:56→20:29)
[2025-07-03] MEDS: NYSTATIN TOPICAL POWDER 30GM TP ×2 (08:56→20:29)
--- NOTE | 2025-07-03 10:08 | HMH.PHAAMS2 ---
- Antimicrobial Stewardship Review culture & sensitivity review Stewardship interventions: culture & sensitivity review (CURRENTLY ON LEVAQUIN AND ZYVOX, WBC 6.8K AND AFEBRILE, CX PENDING.)
[2025-07-03 11:11] LABS: POC Glucose,Bedside 135 gm/dL (70-110)
--- NOTE | 2025-07-03 11:13 | SW/DCPLANNER ---
Addendum entered by Erin Clinton 07/03/25 14:32: I faxed patient's information to [facility] and they are able to accept patient. Lore Venegas Original Note: I spoke w/ patient regarding plans once medically stable for discharge. Dr Barros and I discussed the need of placement w/ this patient. Patient is NOT agreeable to placement at this time and prefers to return home w/ her family at discharge. Patient stated she could benefit from a purwick at home if covered under insurance. CM will look into this option at home. Patient is agreeable to home health services as long as it is not [facility] due to bad past experience. CM will continue to follow up and set up home health services. Per MD patient may discharge later today or tomorrow.
[2025-07-03 12:39] VITALS: PULSE 70
--- NOTE | 2025-07-03 13:33 | DIET.NUTRFU ---
offered education material, she reports she follows diabetic diet. Son makes meals. suggested to decrease portion sizes for carbs and increase protein intake. She is limited on exercise/mobility secondary to weight status. I will include Mediterranean diet information to encourage a low fat/low calorie intake
--- NOTE | 2025-07-03 13:47 | HMH.PTEV ---
Physical Therapy Evaluation Rehab PT IP Evaluation Start: 07/01/25 15:18 Freq: ONCE Status: Active Protocol: Document 07/03/25 13:43 YESSICA (Rec: 07/03/25 13:46 [email or web address] [id number]) Subjective/History History History 55-year-old female with a past medical history of HFpEF , morbid obesity, Mobitz type II with pacemaker in situ , T2DM, HONEY, hypothyroidism who presents emergency department today with complaints weakness. She states she think she might have a infection under her hernia. She was brought in by EMS. She has been more weak and fatigued over the past few days. Just does not feel well in general. Some chills when others have been comfortable. No colleen fever at home. Poor p.o. intake . Not wanting to eat. Denies nausea or vomiting. No colleen chest pain. Or shortness of breath beyond baseline. On workup in the ER, labs relatively unremarkable but found to have tender erythema of abdomen worse on left abdomen near her hernia and tracking from her umbilicus. CT of the abdomen does show streaking and edema of the abdominal wall concerning for cellulitis. Initiated on vancomycin and medicine consulted for admission and further management. Subjective Subjective Pt presents awake, supine in bed, agrees to mobility assessment. She does c/o increased L flank pain. Pt reports she lives with her son, no TOM the home, and she is generally able to transfer to bedside chair at baseline. [facility] How much help from another person do you currently need... Turning from your A lot back to your side while in a flat bed without using bedrails? Moving from lying on A lot back to sitting on the side of a flat bed without using bedrails? Moving to and from a A lot bed to a chair ( including a wheelchair)? Standing up from a A lot chair using your arms? (e.g., wheelchair, bedside chair) Walking in hospital Total room? Climbing 3-5 steps Total with a railing? Mobility Score [address] [facility] Mobility 4 Move to chair/commode Mobility Calculator Rehab PT IP Eval Objective Appearance Patient Behavior Appropriate Patient Orientation Person,Place,Time Difficulty following none instructions Speech Pattern Clear Ambulation Patient Able to No Ambulate Transfers Bed Transfer Ability Maximum x 2 (75% assist) Rehab PT IP prob,goals,plan Problems Date of Evaluation: 07/03/25 PT IP Problems Bed Mobility,Transfers,Gait,Balance,Self care,Safety Rehab Potential Rehab Potential Good Plan PT Intervention Plan Bed Mobility,Transfers,Gait,Balance,Self care,Safety, Therapeutic Exercise PT Plan Frequency Daily Duration LOS Discharge Goals Bed Transfer Ability Moderate x 2 (50% assist) Sit to Stand Chair Moderate x 2 (50% assist) Transfer Ability Discharge Plan PT Discharge Plan Pt is currently most appropriate for rehab placement once medically stable for d/c. However, she could return home if she has 24 hr assistance available and meets all of her therapy goals prior to d/c. Skilled therapy is indicated to aid improvements in all transfers, ADLs, and mobility in order to return pt to [facility]. Eval Complexity Eval Charge Codes 04631 - High Complexity PHYSICIAN CERTIFICATION: I certify the specified therapy services for Stacey George are required, authorized, and reviewed every 30 days.
--- NOTE | 2025-07-03 13:49 | HMH.OTEV ---
OT Evaluation Rehab OT IP Evaluation Start: 07/01/25 14:49 Freq: ONCE Status: Active Protocol: Document 07/03/25 13:40 BRAYDON (Rec: 07/03/25 13:49 BRAYDON [id number]) Rehab OT IP Assessment Subjective History Per HPI: History of present illness: This is a 55-year-old female with a past medical history of HFpEF, morbid obesity, Mobitz type II with pacemaker in situ, T2DM, HONEY, hypothyroidism who presents emergency department today with complaints weakness. She states she think she might have a infection under her hernia. She was brought in by EMS. She has been more weak and fatigued over the past few days. Just does not feel well in general. Some chills when others have been comfortable. No colleen fever at home. Poor p.o. intake. Not wanting to eat. Denies nausea or vomiting. No colleen chest pain. Or shortness of breath beyond baseline. On workup in the ER, labs relatively unremarkable but found to have tender erythema of abdomen worse on left abdomen near her hernia and tracking from her umbilicus. CT of the abdomen does show streaking and edema of the abdominal wall concerning for cellulitis. Initiated on vancomycin and medicine consulted for admission and further managemen Subjective I can't lay on my side. Pt supine in bed when therapy arrived this PM. Pt agreed to OT eval this PM. Pt orient x3. Pt reported they live in duplex with son. Pt reported they also have another son and DIL, but the youngest son is who assists pt the most. Pt reported they normally use w/c for FM, but the doors in duplex are too narrow so pt typically spends most of day in bed. Pt reported they need assist to transfer from supine to EOB and typically completes stand pivot transfers to get into w /c, Pt reports they need assist for ADLs and IADLs and they use bus transportation for apts. Pt reported they are normally on 2L O2 at baseline, currently on 3 1/2 L O2. Pt agreed to sit on EOB. Pt went from supine to EOB with Max A x2. Pt Max A x 2 to remain at EOB and hold static sitting balance. Pt able to tolerate sitting at EOB with Max A x2 for 40 seconds before requesting to be laid back down. Pt was Max A x2 to go from EOB to supine. Pt left supine in bed with call light and all other needs within reach. Objective Patient Orientation Person,Patient Baseline Right Upper WFL Extremity Gross ROM Left Upper Extremity WFL Gross ROM Bed Mobility bed mobility-scooting,bed mobility - supine/sit Assist Level Maximum x 2 (75% assist) Decrease in Yes Endurance Rehab OT IP prob,goals,plan Problems Date of Evaluation: 07/03/25 OT IP Problems Bed Mobility,Transfers,Balance,Self care,Safety Rehab Potential Rehab Potential Good Equipment Needs Assistive Devices Rolling / Wheeled Walker,Wheelchair Plan OT intervention Plan Bed Mobility,Transfers,Balance,Self care,Safety, Therapeutic Exercise OT Plan Frequency Daily Duration LOS Discharge Goals Bed Mobility Ability Assistance x1 Sit to Stand Chair Moderate x 1 (50% assist) Transfer Ability Chair Transfer Moderate x 1 (50% assist) Ability Chair Transfer Stand Pivot Technique Chair Transfer Rolling Walker Assistive Devices Feeding Ability Assist with Tray Set Up Decrease in No Endurance Discharge Plan OT Discharge Plan At this time, pt presents below baseline and would benefit from skilled acute OT services and interventions while admitted at [facility] to address functional limitations in occupational performance. OT is recommending pt goes to placement to further address functional limitations in occupational performance, however if pt declines and improves medically, pt able to go home with services and 09/02 assist. Eval Complexity Eval Charge Codes 45542 - Moderate Complexity PHYSICIAN CERTIFICATION: I certify the specified therapy services for Stacey George are required, authorized, and reviewed every 30 days.
[2025-07-03 16:00] VITALS: BP 108/56; PULSE 65; PULSE 70; RESP 18; TEMP 36.8; O2SAT 97
[2025-07-03] MEDS: HYDROCODONE/APAP 5/325 MG TABLET 1 TAB PO (16:57)
[2025-07-03 17:05] LABS: POC Glucose,Bedside 117 gm/dL (70-110)
--- NOTE | 2025-07-03 17:51 | P.PN_ITS ---
Subjective *Date: 07/03/25 *Time: 17:53 Interval history: Hernández removed today. Stable on baseline oxygen. Has mild confusion when she awakens but it clears quickly. Repeat gases have shown stable chronic hypercapnia. pH normal. Is compensated. Consistent with her pickwickian syndrome. Tolerating p.o. intake. Awaiting bowel movement, has not had 1 since admission. Pain slightly better in her belly today Medical Exam Vital signs and Labs for Last 24 Hours: Vital Signs Temp Pulse Pulse Resp BP Pulse Ox O2 Del Method 07/03/25 17:00 Nasal Cannula 07/03/25 16:00 98.2 F 65 18 108/56 L 97 Room Air 07/03/25 15:00 Nasal Cannula 07/03/25 13:00 Nasal Cannula 07/03/25 12:39 70 07/03/25 11:00 Nasal Cannula 07/03/25 09:00 Nasal Cannula 07/03/25 08:41 70 07/03/25 08:00 Nasal Cannula 07/03/25 08:00 98.2 F 68 16 103/44 L 96 Nasal Cannula 07/03/25 06:23 Nasal Cannula 07/03/25 05:00 Room Air 07/03/25 04:41 98.6 F 73 18 106/47 L 93 L Room Air 07/03/25 03:00 Nasal Cannula 07/03/25 01:00 Nasal Cannula 07/02/25 23:00 Nasal Cannula 07/02/25 20:16 97.4 F L 77 16 122/58 L 96 Nasal Cannula 07/02/25 20:00 Nasal Cannula 07/02/25 19:00 Nasal Cannula O2 Flow Rate FiO2 07/03/25 17:00 07/03/25 16:00 07/03/25 15:00 07/03/25 13:00 07/03/25 12:39 07/03/25 11:00 07/03/25 09:00 07/03/25 08:41 07/03/25 08:00 07/03/25 08:00 4 07/03/25 06:23 3 07/03/25 05:00 07/03/25 04:41 3 07/03/25 03:00 3 07/03/25 01:00 3 07/02/25 23:00 3 07/02/25 20:16 3 07/02/25 20:00 3 07/02/25 19:00 3 Intake and Output 07/03/25 07/03/25 07/03/25 07:59 15:59 23:59 Intake Total 444 / 1284 840 / 1284 Output Total 1300 / 1800 500 / 1800 Balance -856 / -516 840 / -516 -500 / -516 Intake: Intake, Oral Amount 444 / 1284 840 / 1284 Output: Output, Urine Amount 1300 / 1800 500 / 1800 Other: Number of Unmeasured Voids 0 Weight 190.282 kg Patient Weight 07/03/25 23:59 Weight 190.282 kg Laboratory Results - last 24 hr 07/02/25 10:45: A. baumannii (PCR) Not detected, Bacteroides fragilis Not d etected, Belgica albicans (PCR) Not detected, Belgica auris (PCR) Not detected, C. glabrata (PCR) Not detected, C. krusei (PCR) Not detected, C. parapsilosis (PCR) Not detected, C. tropicalis (PCR) Not detected, Cryptococcus neoformans PCR Not detected, Enterobacterales (PCR) Not detected, Enterococc faecalis PCR Not detected, Enterococc faecium PCR Not detected, E. coli (PCR) Not detected, H. influenzae DNA Not detected, Klebsiella aerogenes (PCR) Not detected, Klebsiella oxytoca PCR Not detected, K. pneumoniae group (PCR) Not detected, List. monocytogenes PCR Not detected, N. meningitidis (PCR) Not detected, Proteus species (PCR) Not detected, Salmonella spp. (PCR) Not detected, Serratia marcescens PCR Not detected, Staphylococcus sp PCR Not detected, Staph aureus (PCR) Not detected, mecA/C & MREJ Resist Gene Not applicable, mecA/C-Methicil Resis Gene Not applicable, Staph epidermidis (PCR) Not detected, Staph lugdunensis (TEM-PCR) Not detected, S. maltophilia (PCR) Not detected, Str eptococcus sp PCR Not detected, S.agalactiae Grp B JESUS Not detected, Strep pneumoniae (PCR) Not detected, S. pyogenes GrpA JESUS Not detected, P. aeruginosa (PCR) Not detected, Amina/B-Vanco Res Genes Not applicable, blaIMP Car res Gene PCR Not applicable, KPC-Carbap Res Gene PCR Not applicable, blaNDM Car Res Gene PCR Not applicable, OXA-48 Carbapenem Resis Gene (PCR) Not applicable, blaVIM Car Res Gene PCR Not applicable, CTX-M Gene Resistance (PCR) Not applicable, MCR-1 Resistance Gene Not applicable 07/02/25 19:48: POC Glucose 135 H 07/03/25 00:20: Vancomycin Trough 13.5 H 07/03/25 04:35: WBC 6.8, RBC 3.53 L, Hgb 8.4 L, Hct 30.8 L, MCV 87.3, MCH 23.8 L , MCHC 27.3 L, RDW 19.3 H, Plt Count 307, MPV 9.4, Neut % (Auto) 64.2, Lymph % (Auto) 23.5, [place] % (Auto) 8.5, Eos % (Auto) 2.8, Baso % (Auto) 0.6, Neut # (Auto) 4.4, Lymph # (Auto) 1.6, [place] # (Auto) 0.6, Eos # (Auto) 0.2, Baso # (Auto) 0.0, Sodium 135 L, Potassium 4.7, Chloride 89 L, Carbon Dioxide 45 H*, Anion Gap 5.7, BUN 14, Creatinine 0.90, Estimated Creat Clear 55, Estimated GFR 65, Est GFR ( Amer) 78 D, Glucose 98 D, Calcium 8.7, Magnesium 1.7, Total Bilirubin 0.2, AST 21, ALT 13, Alkaline Phosphatase 91, Troponin I < 0.01, Total Protein 6.2 L, Albumin 3.0 L D, Globulin 3.2, Albumin/Globulin Ratio 0.9 L 07/03/25 07:50: Troponin I < 0.01 07/03/25 10:59: POC Glucose 135 H 07/03/25 16:56: POC Glucose 117 H I & O for Labs for Last 24 Hours: Intake & Output 06/30/25 07/01/25 07/02/25 07/03/25 23:59 23:59 23:59 23:59 Intake Total 970 / 1414 1994 / 2438 1284 / 1284 Output Total 1600 / 1600 2300 / 2300 1800 / 1800 Balance -630 / -186 -306 / 138 -516 / -516 Weight 189.857 kg 192.777 kg 190.282 kg Microbiology Reports for the Last 24 Hours: Microbiology 07/01/25 10:05 Blood Blood Culture - Preliminary NO GROWTH AFTER 48 HOURS 07/01/25 10:45 Blood Blood Culture - Preliminary Constitutional: Present no acute distress, morbidly obese, chronically ill appearing and cooperative Head: Present normocephalic Eyes: Absent eye pain or eye discharge ENT: Present normal exam Neck: Present normal inspection Respiratory: Present distant breath sounds and able to speak in complete sentences Cardiac: Present Reg Rate and Rhythm; Absent No Murmur GI: Present soft, tenderness (Overlying hernia. Improved tenderness today. Still has edema of abdominal wall. Redness improving) and normal bowel sounds; Absent distention Rectal (female): Present deferred Comment:: Minimal bloody discharge/spotting Extremities: Present edema Comment:: None in legs but it is present in the left upper thigh on the dependent side and an abdominal wall where she lays to the left, Skin: Present erythema (Intertrigo. Under left breast, under pannus bilaterally, and folds of abdomen tracking from umbilicus; interval improvement) Neuro: Present Grossly Intact, alert, awake, oriented x 3 and moves all extremities Assessment and Plan *Assessment and plan (1) Morbid obesity with body mass index (BMI) greater than or equal to 70 in adult: Status: Acute Category: Medical Code(s): E66.01 - Morbid (severe) obesity due to excess calories; Z68.45 - Body mass index [BMI] 70 or greater, adult (2) Volume overload: Status: Acute Category: Medical Code(s): E87.70 - Fluid overload, unspecified (3) Morbid obesity: Status: Acute Category: Medical Code(s): E66.01 - Morbid (severe) obesity due to excess calories (4) Hypothyroidism: Status: Acute Qualifiers: Hypothyroidism type: unspecified Qualified Code(s): E03.9 - Hypothyroidism, unspecified Category: Medical Code(s): E03.9 - Hypothyroidism, unspecified (5) HONEY (obstructive sleep apnea): Status: Acute Category: Medical Code(s): G47.33 - Obstructive sleep apnea (adult) (pediatric) (6) Presence of cardiac pacemaker: Status: Acute Category: Medical Code(s): Z95.0 - Presence of cardiac pacemaker (7) Cellulitis of abdominal wall: Status: Acute Category: Medical Code(s): L03.311 - Cellulitis of abdominal wall (8) Chronic hypoxemic respiratory failure: Status: Chronic Category: Medical Code(s): J96.11 - Chronic respiratory failure with hypoxia (9) Obesity hypoventilation syndrome: Status: Acute Category: Medical Code(s): E66.2 - Morbid (severe) obesity with alveolar hypoventilation Plan Morbidly obese 55-year-old female with heart failure who presents with weakness. Found of cellulitis of her abdominal wall. Discussed case with ER provider, request admission for IV antibiotics and further management of her cellulitis along with urinary retention. Showing improvement today. Hernández removed. Voided by late afternoon but still has not had a bowel movement. Anticipate discharge tomorrow. Adamant she does not want placement. Is a functional paraplegic and bedbound. Has care at home. Wants to go home with her son. Problems addressed as follows: Abdominal wall cellulitis Ventral hernia, chronic, present on admission - Patient has large chronic ventral hernia that is nonoperable at this time due to her comorbidities and obesity. -Overlying skin has peau d'orange edema. Redness improving. Feels cellulitis is resolving. - Switch to oral Zyvox and Levaquin due to loss of IVs. Stable regimen for discharge home. - Continue topical nystatin for yeast component of her intertrigo - Pain improving today. White count stable at 6.8. Hemoglobin 8.4 which is stable. Lab holiday in the morning due to stable labs along with kidney function and electrolytes - Blood cultures remain negative. Further management pending culture results and clinical response to antibiotics. - Consulted and discussed case at length with surgeon. Patient's large hernia is concerning for source of her pain and discomfort. She has dependent edema along abdominal wall where she lays to the left secondary to her large hernia. Does not appear to have strangulation. Is passing flatus and therefore less concern for volvulus or SBO. She is not a surgical candidate unless she had a life-threatening acute condition necessitating heroic measures due to hernia related complications. #chronic respiratory failure with hypoxia and hypercapnia COPD without exacerbation #Obesity hypoventilation syndrome - Baseline home O2 2 L, stable. Wean as tolerated for goal sats greater 90% - Supposed to wear BiPAP when she sleeps. Wearing BiPAP when she sleeps. Reports having completed a sleep study as an outpatient, awaiting home NIPPV device - Blood gas on admission with compensated chronic respiratory acidosis. pCO2 of 65 on VBG. Bicarb of 39 on CMP. Appears chronic in nature. pH 7.4. Repeat blood gas today due to concern for increased confusion - DuoNebs every 6 hours as needed #chronic diastolic heart failure - Chest shows atelectasis versus pneumonia but no significant edema. -Reports taking her diuretics. Continue Bumex 2 mg p.o. twice daily, continue home spironolactone 100 mg daily -Hernández in place due to retention, monitor volume status and urine output. BUN 13, creatinine 1.1 Potassium 4.2. Repeat CBC, CMP, magnesium ordered for the morning - Consider Jardiance or Farxiga when patient euvolemic however strong concern the patient is at high risk for infection due to body habitus and incontinence issues. #Mobitz type II heart block #Pacemaker in situ - Troponin negative. EKG with no ischemic changes. Continue outpatient follow- up #Hypothyroidism: continue home levothyroxine 300mcg daily, TSH 5.3 #Morbid obesity: BMI 74. Complicates all aspects of care; holding home GLP-1 dosing #Anxiety and depression # Neuropathy/restless leg -Received Lyrica this morning along with Requip. Has developed some worsening confusion. Will hold Lyrica for now, decrease dose of Requip for tomorrow morning to 1 mg. Will obtain VBG to evaluate for worsening confusion. - Continue Wellbutrin 200 mg daily - holding trazodone 300 mg nightly due to weakness and fatigue, risk for over sedating Anemia, iron deficient: Hemoglobin low but stable at 8.4. Constipation: Initiated on bowel regimen. Would like to have bowel movement prior to discharge. Lovenox 60 mg twice daily (BMI greater than 50) Regular diet, calorie restricted to 1500 pool Full code
--- NOTE | 2025-07-03 18:36 | PC.NURSE ---
patient has remained A/ox4 this shift. 3LNC. nystatin applied to skin folds. c/o left leg pain once this shift, treated per MAR. tolerating diet. howard d/c, PW in place, patient has voided. no BM this shift. call light within reach. no further requests at this time.
[2025-07-03 20:00] VITALS: BP 111/51; PULSE 70; PULSE 71; RESP 20; TEMP 36.9; O2SAT 95; O2SAT 96
[2025-07-03] MEDS: MAGNESIUM CITRATE 296ML BOTTLE 296 ML PO (20:29)
[2025-07-03] MEDS: PREGABALIN 25MG CAPSULE 75 MG PO (20:29)
[2025-07-03] MEDS: METOPROLOL TARTRATE 25MG TABLET 25 MG PO (20:29)
[2025-07-03] MEDS: ATORVASTATIN 40MG TABLET 40 MG PO (20:29)
[2025-07-03] MEDS: ACETAMINOPHEN 325MG TAB 650 MG PO (20:48)
[2025-07-03] MEDS: humaLOG 100 UNITS/ML 10ML VIAL (SSI) SUBCUT (20:48)
[2025-07-03 20:52] LABS: POC Glucose,Bedside 170 gm/dL (70-110)
[2025-07-04] VITALS: BP 106/50; PULSE 64; RESP 18; TEMP 36.7; O2SAT 95
[2025-07-04 04:00] VITALS: BP 110/51; PULSE 65; RESP 20; TEMP 36.7; O2SAT 96; BMI 74.0
[2025-07-04] MEDS: HYDROCODONE/APAP 5/325 MG TABLET 1 TAB PO (04:00)
--- NOTE | 2025-07-04 04:05 | PC.NURSE ---
Patient is alert and oriented; no apparent episodes of confusion were noted during this shift. She was observed to be awake for the majority of the night. She has had complaints of bilateral knee aches of which Tylenol and [place] were administered per MAR for pain relief. Large herniation noted to left abdominal quadrants; area is reddened/dimpled and [id number]. Excoriation noted underneath herniation, abdominal pannus, and breasts. Nystatin powder applied. Swelling noted to extremities. A full bed bath was provided this shift. Physical assessment (see nursing shift biophysical intervention) performed as appropriately this shift. Vital signs Q4HR. No complaints of chest pain, shortness of breath, nausea, etc. this shift. Scheduled medications administered per SEP. Max assistance during transfers; patient refused turning. On telemetry + continuous pulse ox. Remains on 3.5 L of oxygen via nasal cannula; oxygen saturations > 90%. A female purewick remains in place for urination needs. No bowel movements. ACHS glucose checks performed. Patient remains without IV access, providers are aware. At this time, the patient remains resting in bed with no new needs vocalized. Call light within reach.
[2025-07-04 04:29] VITALS: PULSE 60
[2025-07-04 05:00] VITALS: PULSE 60
[2025-07-04] MEDS: LEVOTHYROXINE 150MCG (0.15MG)TAB 300 MCG PO (06:03)
[2025-07-04 06:20] LABS: POC Glucose,Bedside 153 gm/dL (70-110)
[2025-07-04] MEDS: humaLOG 100 UNITS/ML 10ML VIAL (SSI) SUBCUT ×2 (06:20→10:28)
[2025-07-04] MEDS: FLUTICASONE/UMECLIDIN/VILANTER 100/62.5/25MCG INHALER 1 PUFF IH (06:29)
[2025-07-04 08:00] VITALS: BP 116/55; PULSE 66; RESP 14; TEMP 36.8; O2SAT 94
[2025-07-04] MEDS: BUMETANIDE 1 MG TABLET 2 MG PO (08:17)
[2025-07-04] MEDS: PREGABALIN 25MG CAPSULE 75 MG PO (08:17)
[2025-07-04] MEDS: SPIRONOLACTONE 25MG TABLET 100 MG PO (08:17)
[2025-07-04] MEDS: ASPIRIN EC 81MG TABLET 81 MG PO (08:18)
[2025-07-04] MEDS: METOPROLOL TARTRATE 25MG TABLET 25 MG PO (08:18)
[2025-07-04] MEDS: ROPINIROLE 1MG TABLET 1 MG PO (08:18)
[2025-07-04] MEDS: SENNOSIDES 8.6MG/DOCUSATE 50MG TABLET 1 TAB PO (08:18)
[2025-07-04] MEDS: LINEZOLID 600 MG TABLET PO (08:18)
[2025-07-04] MEDS: NYSTATIN TOPICAL POWDER 30GM TP (08:19)
--- NOTE | 2025-07-04 09:00 | [facility].PHAAMS2 ---
- Antimicrobial Stewardship Review culture & sensitivity review Stewardship interventions: culture & sensitivity review (CURRENTLY RECEIVING ZYVOX AND LEVAQUIN, WBC WNL, AFEBRILE, CX PENDING.)
[2025-07-04 10:17] LABS: POC Glucose,Bedside 169 gm/dL (70-110)
[2025-07-04 12:00] VITALS: BP 108/62; PULSE 64; RESP 22; TEMP 36.6; O2SAT 96
--- NOTE | 2025-07-04 13:28 | EXP.DC.SUM ---
General Admission date:: 07/01/25 HPI HPI HPI: 55yo female presented by EMS to [facility] ER 07/01/2025 with complaints of increased weakness and also some vague abdominal pain. ER workup raised suspicion of abdominal wall cellulitis and she was admitted to the hospitalist for management of this. Also in the workup, a large ventral, incisional hernia was noted and surgical consultation has been requested for input regarding this. The patient states her hernia problems began in 2013 when she had her 1st hernia operation which then led to multiple additional surgeries for what sounds like either infected mesh or intestinal complications or both. Her last abdominal operation was years prior, for attempted hernia repair which also failed. She has multiple medical comorbidities including HFpEF with not infrequent admissions for medical non-compliance with resultant decompensated CHF. Hospital Course Hospital Course Hospital Course: Morbidly obese 55-year-old female with heart failure who presents with weakness. Found of cellulitis of her abdominal wall. Discussed case with ER provider, request admission for IV antibiotics and further management of her cellulitis along with urinary retention. Showing improvement today. Hernández removed. Voided by late afternoon but still has not had a bowel movement. Anticipate discharge tomorrow. Adamant she does not want placement. Is a functional paraplegic and bedbound. Has care at home. Wants to go home with her son. Problems addressed as follows: Abdominal wall cellulitis Ventral hernia, chronic, present on admission - Patient has large chronic ventral hernia that is nonoperable at this time due to her comorbidities and obesity. - Consulted and discussed case at length with surgeon. Patient's large hernia is concerning for source of her pain and discomfort. She has dependent edema along abdominal wall where she lays to the left secondary to her large hernia. Does not appear to have strangulation. Is passing flatus and therefore less concern for volvulus or SBO. She is not a surgical candidate unless she had a life-threatening acute condition necessitating heroic measures due to hernia related complications. - Initially, overlying skin has peau d'orange edema. Redness improving with antibiotics. ? Initially treated with IV vancomycin, cefepime. Transition to Zyvox and Levaquin. - Continue topical nystatin for yeast component of her intertrigo - Discharged with linezolid 600 mg twice daily for 5 days, levofloxacin 50 mg for 5 days. Will follow-up with PCP within 1 week. #chronic respiratory failure with hypoxia and hypercapnia COPD without exacerbation #Obesity hypoventilation syndrome - Baseline home O2 2 L, stable. Wean as tolerated for goal sats greater 90% - Supposed to wear BiPAP when she sleeps. Reports having completed a sleep study as an outpatient, awaiting home NIPPV device - Blood gas on admission with compensated chronic respiratory acidosis. pCO2 of 65 on VBG. Bicarb of 39 on CMP. Appears chronic in nature. pH 7.4. #chronic diastolic heart failure - Chest shows atelectasis versus pneumonia but no significant edema. -Reports taking her diuretics. Continue Bumex 2 mg p.o. twice daily, continue home spironolactone 100 mg daily - Consider Jardiance or Farxiga when patient euvolemic however strong concern the patient is at high risk for infection due to body habitus and incontinence issues. #Mobitz type II heart block #Pacemaker in situ - Troponin negative. EKG with no ischemic changes. Continue outpatient follow-up #Hypothyroidism: continue home levothyroxine 300mcg daily, TSH 5.3 #Morbid obesity: BMI 74. Complicates all aspects of care; holding home GLP-1 dosing #Anxiety and depression # Neuropathy/restless leg - Continue Wellbutrin 200 mg daily, Lyrica Anemia, iron deficient: Hemoglobin low but stable at 8.4. Exam Data for Last 24 hours Vital signs and Labs for Last 24 Hours: Temp Pulse Resp BP Pulse Ox O2 Del Method O2 Flow Rate 97.9 F 64 22 108/62 L 96 Nasal Cannula 3.5 07/04/25 12:00 07/04/25 12:00 07/04/25 12:00 07/04/25 12:00 07/04/25 12:00 07/04/25 12:00 07/04/25 12:00 FiO2 3 07/03/25 04:41 Laboratory Results - last 24 hr 07/03/25 16:56: POC Glucose 117 H 07/03/25 20:34: POC Glucose 170 H 07/04/25 06:09: POC Glucose 153 H 07/04/25 10:10: POC Glucose 169 H I & O for Last 24 hours: Intake & Output 07/01/25 07/02/25 07/03/25 07/04/25 23:59 23:59 23:59 23:59 Intake Total 970 / 1414 1994 / 2438 1644 / 2088 1044 / 1044 Output Total 1600 / 1600 2300 / 2300 3600 / 3850 570 / 570 Balance -630 / -186 -306 / 138 -1956 / -1762 474 / 474 Weight 189.857 kg 192.777 kg 190.282 kg 189.5 kg Microbiology Reports for the Last 24 Hours: Microbiology 07/01/25 10:05 Blood Blood Culture - Preliminary NO GROWTH AFTER 48 HOURS Constitutional Comments: Constitutional: Present no acute distress, morbidly obese, chronically ill appearing and cooperative Head: Present normocephalic Eyes: Absent eye pain or eye discharge ENT: Present normal exam Neck: Present normal inspection Respiratory: Present distant breath sounds and able to speak in complete sentences Cardiac: Present Reg Rate and Rhythm; Absent No Murmur GI: Present soft, tenderness (Overlying hernia. Improved tenderness today. Still has edema of abdominal wall. Redness improving) and normal bowel sounds; Absent distention Rectal (female): Present deferred Comment:: Minimal bloody discharge/spotting Extremities: Present edema Comment:: None in legs but it is present in the left upper thigh on the dependent side and an abdominal wall where she lays to the left, Skin: Present erythema (Intertrigo. Under left breast, under pannus bilaterally, and folds of abdomen tracking from umbilicus; interval improvement) Neuro: Present Grossly Intact, alert, awake, oriented x 3 and moves all extremities Results Data Completed and Pending Labs on day of discharge: Labs from last 24 hours 07/04/25 07/04/25 07/03/25 10:10 06:09 20:34 POC Glucose 169 H 153 H 170 H 07/03/25 16:56 POC Glucose 117 H Preliminary micro results at discharge 07/01/25 10:05 Blood Culture - Preliminary Blood NO GROWTH AFTER 48 HOURS 07/01/25 10:45 Blood Culture - Preliminary Blood DS: Diagnosis Discharge Diagnosis (1) Morbid obesity with body mass index (BMI) greater than or equal to 70 in adult: Status: Acute Code(s): E66.01 - Morbid (severe) obesity due to excess calories; Z68.45 - Body mass index [BMI] 70 or greater, adult (2) Volume overload: Status: Acute Code(s): E87.70 - Fluid overload, unspecified (3) Morbid obesity: Status: Acute Code(s): E66.01 - Morbid (severe) obesity due to excess calories (4) Hypothyroidism: Status: Acute Code(s): E03.9 - Hypothyroidism, unspecified Qualifiers: Hypothyroidism type: unspecified Qualified Code(s): E03.9 - Hypothyroidism, unspecified (5) HONEY (obstructive sleep apnea): Status: Acute Code(s): G47.33 - Obstructive sleep apnea (adult) (pediatric) (6) Presence of cardiac pacemaker: Status: Acute Code(s): Z95.0 - Presence of cardiac pacemaker (7) Cellulitis of abdominal wall: Status: Acute Code(s): L03.311 - Cellulitis of abdominal wall (8) Chronic hypoxemic respiratory failure: Status: Chronic Code(s): J96.11 - Chronic respiratory failure with hypoxia (9) Obesity hypoventilation syndrome: Status: Acute Code(s): E66.2 - Morbid (severe) obesity with alveolar hypoventilation Meds Home Medications and Allergies Home Medications ?Medication ?Instructions ?Recorded ?Confirmed ?Type calcium carbonate (Calcium 600) 600 mg PO DAILY 10/03/23 07/02/25 History cholecalciferol (vitamin D3) 1,250 1,250 mcg PO WEEKLY #12 caps 05/26/24 07/02/25 Rx mcg (50,000 unit) capsule fluticasone fur. 100 mcg-umeclid 1 inh inhalation DAILY 09/24/24 07/02/25 History 62.5 mcg-vilant 25 mcg inhalat.powder (Trelegy Ellipta) evolocumab 140 mg/mL subcutaneous 140 mg SQ Q2W #2 mL 11/24/24 07/01/25 Rx pen injector (Repatha SureClick) spironolactone 100 mg tablet 100 mg PO DAILY #90 tabs 12/23/24 07/01/25 Rx aspirin 81 mg tablet,delayed 81 mg PO DAILY 03/10/25 07/01/25 History release atorvastatin 40 mg tablet 40 mg PO HS 03/10/25 07/02/25 History cyanocobalamin (vitamin B-12) 1,000 mcg PO DAILY 03/10/25 07/01/25 History 1,000 mcg tablet ipratropium 0.5 mg-albuterol 3 mg 3 ml inhalation QIDP PRN Shortness 03/10/25 07/01/25 History (2.5 mg base)/3 mL nebulization Of Breath soln levothyroxine 150 mcg tablet 300 mcg PO DAILYDM 03/10/25 07/01/25 History trazodone 150 mg tablet 300 mg PO HS 03/10/25 07/01/25 History bupropion HCl 200 mg tablet,12 hr 200 mg PO BID #180 ea 05/01/25 07/01/25 Rx sustained-release metformin 500 mg tablet 500 mg PO BIDWMEAL 05/02/25 07/01/25 History ropinirole 4 mg tablet 4 mg PO DAILY 05/02/25 07/01/25 History bumetanide 1 mg tablet 2 mg (2 x 1 mg) PO BIDL 30 days 05/06/25 07/02/25 Rx #120 tabs metoprolol tartrate 25 mg tablet 25 mg PO BID 30 days #60 tabs 05/06/25 07/02/25 Rx nystatin 100,000 unit/gram topical 1 unit topical BID 30 days #60 05/06/25 07/02/25 Rx powder grams pregabalin 75 mg capsule 75 mg PO BID #60 caps 06/30/25 07/01/25 Rx albuterol sulfate 90 mcg/actuation 2 puff PO Q4HP PRN Wheezing 07/01/25 07/01/25 History aerosol inhaler ondansetron 4 mg disintegrating 4 mg PO Q8HP PRN Nausea And 07/01/25 07/01/25 History tablet Vomiting semaglutide 1 mg/dose (4 mg/3 mL) 1 mg SQ WEEKLY 07/01/25 07/01/25 History subcutaneous pen injector (Ozempic) levofloxacin 750 mg tablet 750 mg PO Q24H 5 days #5 tabs 07/04/25 Rx linezolid 600 mg tablet 600 mg PO BID 5 days #10 tabs 07/04/25 Rx New Prescriptions to Start Prescriptions: levoJacinto Jason linezolid Jacinto Mayorga Allergies Allergy/AdvReac Type Severity Reaction Status Date / Time adhesive tape (ADHESIVE TAPE) Allergy Unknown Blister Verified 03/31/25 13:02 hydromorphone (From DILAUDID) Allergy Unknown Hypotension Verified 03/31/25 13:02 nickel (NICKEL) Allergy Unknown Blister Verified 03/31/25 13:02 Discharge Plan Disposition Patient Disposition: Home Health Service Condition: Fair Discharge Order Discharge Orders: Discharge Order (Routine); Ordered 07/04/25 Ordered By: Jacinto Mayorga Follow up Plan Follow up with: Vahid Garcia DO [Primary Care Provider, [facility]] - 07/11/25 1:00 pm Referral Note: will see Prescriptions/Medication Reconciliation: New linezolid 600 mg Tablet 600 mg PO BID 5 Days Qty: 10 0RF levofloxacin 750 mg Tablet 750 mg PO Q24H 5 Days Qty: 5 0RF Continued cholecalciferol (vitamin D3) 1,250 mcg (50,000 unit) capsule 1,250 mcg PO WEEKLY Qty: 12 3RF Repatha SureClick 140 mg/mL pen injector 140 mg SQ Q2W Qty: 2 5RF bupropion HCl 200 mg tablet sustained-release 12 hr 200 mg PO BID Qty: 180 3RF pregabalin 75 mg capsule 75 mg PO BID Qty: 60 1RF calcium carbonate [Calcium 600] 600 mg calcium (1,500 mg) Tablet 600 mg PO DAILY atorvastatin 40 mg tablet 40 mg PO HS ipratropium-albuterol 0.5 mg-3 mg(2.5 mg base)/3 mL solution for nebulization 3 ml inhalation QIDP PRN (Reason: Shortness Of Breath) cyanocobalamin (vitamin B-12) 1,000 mcg tablet 1,000 mcg PO DAILY aspirin 81 mg tablet,delayed release (DR/EC) 81 mg PO DAILY trazodone 150 mg tablet 300 mg PO HS levothyroxine 150 mcg tablet 300 mcg PO DAILYDM Trelegy Ellipta 100-62.5-25 mcg blister with device 1 inh INHALATION DAILY Patient Comments: INHALE 1 PUFF BY MOUTH EVERY DAY --RINSE MOUTH AFTER USE-- spironolactone 100 mg tablet 100 mg PO DAILY Qty: 90 1RF metformin 500 mg tablet 500 mg PO BIDWMEAL ropinirole 4 mg tablet 4 mg PO DAILY Patient Comments: TAKE ONE TABLET BY MOUTH EVERY DAY nystatin 100,000 unit/gram Powder 1 unit topical BID 30 Days Qty: 60 0RF metoprolol tartrate 25 mg Tablet 25 mg PO BID 30 Days Qty: 60 0RF bumetanide 1 mg Tablet 2 mg PO BIDL 30 Days Qty: 120 0RF albuterol sulfate 90 mcg/actuation HFA aerosol inhaler 2 puff PO Q4HP PRN (Reason: Wheezing) ondansetron 4 mg tablet,disintegrating 4 mg PO Q8HP PRN (Reason: Nausea And Vomiting) Ozempic 1 mg/dose (4 mg/3 mL) pen injector 1 mg SQ WEEKLY Problem Reconciliation Problems Reviewed?: Yes Patient Discharge Instructions Patient Instructions: DI for Cellulitis in Adults, The Mediterranean Diet and Good Health, Catheter-Associated Urinary Tract Infection Print Language: Taiwanese Providers Primary Care Provider: Vahid Garcia Admit Provider: Hernan Barros Attending Provider: Hernan Barros
[2025-07-04 15:28] LABS: POC Glucose,Bedside 144 gm/dL (70-110)
--- NOTE | 2025-07-04 18:32 | PC.NURSE ---
Pt resting in bed waiting for EMS to take her home, 02 @ 3.5L, IV removed
--- NOTE | 2025-07-04 19:48 | PC.NURSE ---
pt left floor with ems at this time to home
--- NOTE | 2025-07-05 10:37 | SW/DCPLANNER ---
Spoke with patient on the phone. Patient stated that she feels pretty good. Patient stated that she is aware of her upcoming appointment. Patient stated that her new medicine is going to be delivered to her. Patient stated that she has no concerns or questions at this time. Lore Venegas
== END 2025-07-04 19:50 | disposition home health service (06) ==
LOC: ER 13:45 → 2ND 13:48
PROVIDERS: Nurse Practitioner Acute Care; Nurse Practitioner Family; Admitting Provider Internal Medicine Adolescent Medicine; Emergency Provider Student in an Organized Health Care Education/Training Program; PCP Internal Medicine; Visit Provider Internal Medicine Adolescent Medicine
DX: E66.01 Morbid (severe) obesity due to excess calories (principal); Z68.45 Body mass index [BMI] 70 or greater, adult; E87.70 Fluid overload, unspecified; E03.9 Hypothyroidism, unspecified; G47.33 Obstructive sleep apnea (adult) (pediatric); Z95.0 Presence of cardiac pacemaker; L03.311 Cellulitis of abdominal wall; J96.11 Chronic respiratory failure with hypoxia; K43.2 Incisional hernia without obstruction or gangrene; J44.9 Chronic obstructive pulmonary disease, unspecified; N17.9 Acute kidney failure, unspecified; F32.A Depression, unspecified; I11.0 Hypertensive heart disease with heart failure; E78.5 Hyperlipidemia, unspecified; I50.30 Unspecified diastolic (congestive) heart failure; Z98.51 Tubal ligation status; Z90.49 Acquired absence of other specified parts of digestive tract; Z98.890 Other specified postprocedural states; Z56.0 Unemployment, unspecified; Z91.048 Other nonmedicinal substance allergy status; Z88.5 Allergy status to narcotic agent; Z79.84 Long term (current) use of oral hypoglycemic drugs; Z79.890 Hormone replacement therapy; Z79.82 Long term (current) use of aspirin; K43.9 Ventral hernia without obstruction or gangrene; I44.0 Atrioventricular block, first degree; I49.3 Ventricular premature depolarization
CPT/HCPCS: 36415; 71045; 74177; 80053; 80202; 81001; 82140; 82803; 82962; 83735; 84443; 84484; 85025; 85651; 86140; 87040; 87154; 93005; 94640; 97163; 97166; 97530; 99221; 99285; G0378; J0692; J1650; J3373; J3375; J7050; Q9967